=== PATIENT | male | born 1950 | race Caucasian/White ===

== ENCOUNTER → 2024-06-26 05:00 | Outpatient (REF) | payer MEDICARE, SELFPAY ==
[2024-06-26 08:24] LABS: Mean Corp Hgb Conc 32.4 g/dL (32-36); Mean Corpuscular Hgb 32.9 pg (27.0-32.0); Mean Corpuscular Volume 101.4 fL (80-94); Mean Platelet Vol. 10.1 fl (6.2-12.0); Platelet Count 282 K/mm3 (150-450); RBC Distribution Width CV 12.1 % (11.6-14.6); RBC Distribution Width SD 45.2 fl (35.1-43.9); Red Blood Count 3.65 M/mm3 (4.6-6.2); White Blood Count 5.8 K/mm3 (4.4-11.0)
[2024-06-26 09:14] LABS: AST(SGOT) 19 U/L (15-37); Alanine Aminotransfer ALT/SGPT 22 U/L (16-61); Alkaline Phosphatase 168 U/L (45-117); Anion Gap 4 (5-15); BUN 14 mg/dL (7-18); BUN/Creat Ratio 13.7 RATIO (10-20); Calcium,Total 8.8 mg/dL (8.5-10.1); Chloride 112 mmol/L (98-107); Cholesterol 145 mg/dL (200); Creatinine, Serum 1.02 mg/dL (0.70-1.30); EST Glomerular Filtration Rate 76 mL/min (>60); Est Glom Filt Rate - Afr Amer 92 mL/min (>60); Globulin 3.1 g/dL (2.2-4.2); Glucose 93 mg/dL (74-106); High Density Lipoprotein 44 mg/dL; Protein, Total 6.1 g/dL (6.4-8.2); Sodium Level 143 mmol/L (136-145); Thyroid Stim Hormone (TSH) 2.49 uIU/mL (0.358-3.74); Triglycerides 159 mg/dL; Very Low Density Lipoprotein 32 mg/dL (5-40)
[2024-06-26 09:43] LABS: Hemoglobin A1c 4.8 % (3.8-5.6)
== END ==
LOC: OLS.ACW100 05:00
PROVIDERS: Visit Provider Family Medicine
DX: E55.9 Vitamin D deficiency, unspecified (principal); Z79.899 Other long term (current) drug therapy
CPT/HCPCS: 36415; 80053; 80061; 83036; 84443; 85027

== ENCOUNTER → 2024-06-29 | Outpatient (REF) | payer MEDICAID, SELFPAY ==
[2024-06-29 08:43] LABS: Vitamin D,25 Hydroxy 60.6 ng/mL
== END | disposition home or self-care (01) ==
LOC: OLS.ACW400 05:00
PROVIDERS: Visit Provider Family Medicine
DX: E55.9 Vitamin D deficiency, unspecified (principal)
CPT/HCPCS: 36415; 82306

== ENCOUNTER → 2024-08-18 | Outpatient (REF) | payer MEDICARE, SELFPAY ==
[2024-08-18 09:37] LABS: Hematocrit 38.4 % (40-54); Hemoglobin 12.8 g/dL (13.0-16.5); Mean Corp Hgb Conc 33.3 g/dL (32-36); Mean Corpuscular Hgb 32.7 pg (27.0-32.0); Mean Corpuscular Volume 98.2 fL (80-94); Mean Platelet Vol. 9.9 fl (6.2-12.0); Platelet Count 240 K/mm3 (150-450); RBC Distribution Width CV 11.7 % (11.6-14.6); RBC Distribution Width SD 42.4 fl (35.1-43.9); Red Blood Count 3.91 M/mm3 (4.6-6.2); White Blood Count 4.9 K/mm3 (4.4-11.0)
[2024-08-18 10:46] LABS: AST(SGOT) 11 U/L (15-37); Alanine Aminotransfer ALT/SGPT 14 U/L (16-61); Albumin, Serum 3.3 g/dL (3.2-5.0); Alkaline Phosphatase 115 U/L (45-117); Anion Gap 6 (5-15); BUN 19 mg/dL (7-18); BUN/Creat Ratio 18.1 RATIO (10-20); Bilirubin, Direct 0.14 mg/dL (0.00-0.30); Calcium,Total 9.7 mg/dL (8.5-10.1); Chloride 110 mmol/L (98-107); Cholesterol 125 mg/dL (200); Creatinine, Serum 1.05 mg/dL (0.70-1.30); EST Glomerular Filtration Rate 73 mL/min (>60); Est Glom Filt Rate - Afr Amer 89 mL/min (>60); Glucose 85 mg/dL (74-106); High Density Lipoprotein 49 mg/dL; Potassium 3.7 mmol/L (3.5-5.1); Protein, Total 6.3 g/dL (6.4-8.2); Sodium Level 141 mmol/L (136-145); Triglycerides 99 mg/dL; Very Low Density Lipoprotein 20 mg/dL (5-40)
== END ==
LOC: OLS.ACW400 05:00
PROVIDERS: Visit Provider Family Medicine
DX: I63.311 Cerebral infarction due to thrombosis of right middle cerebral artery (principal); I69.354 Hemiplegia and hemiparesis following cerebral infarction affecting left non-dominant side; I69.392 Facial weakness following cerebral infarction; Z79.899 Other long term (current) drug therapy
CPT/HCPCS: 36415; 80048; 80061; 80076; 85027

== ENCOUNTER → 2024-09-15 | Outpatient (REF) | payer MEDICARE, SELFPAY ==
[2024-09-15 08:45] LABS: Valproic Acid (Depakene) Level 16 ug/mL (50-100)
== END ==
LOC: OLS.ACW400 05:00
PROVIDERS: Visit Provider Family Medicine
DX: F03.94 Unspecified dementia, unspecified severity, with anxiety (principal); I69.311 Memory deficit following cerebral infarction; I69.354 Hemiplegia and hemiparesis following cerebral infarction affecting left non-dominant side; I69.392 Facial weakness following cerebral infarction
CPT/HCPCS: 36415; 80164

== ENCOUNTER → 2025-01-15 | Outpatient (REF) | payer MEDICARE, SELFPAY ==
[2025-01-15 08:19] LABS: Hematocrit 43.3 % (40-54); Hemoglobin 14.2 g/dL (13.0-16.5); Mean Corp Hgb Conc 32.8 g/dL (32-36); Mean Corpuscular Hgb 31.3 pg (27.0-32.0); Mean Corpuscular Volume 95.4 fL (80-94); Mean Platelet Vol. 10.2 fl (6.2-12.0); Platelet Count 179 K/mm3 (150-450); RBC Distribution Width CV 12.5 % (11.6-14.6); RBC Distribution Width SD 43.7 fl (35.1-43.9); Red Blood Count 4.54 M/mm3 (4.6-6.2); White Blood Count 7.9 K/mm3 (4.4-11.0)
[2025-01-15 08:41] LABS: AST(SGOT) 529 U/L (<=37); Alanine Aminotransfer ALT/SGPT 627 U/L (<=46); Albumin, Serum 3.8 g/dL (3.4-4.8); Alkaline Phosphatase 196 U/L (40-129); Anion Gap 12 (5-15); BUN 17 mg/dL (4-19); BUN/Creat Ratio 17.5 RATIO (10-20); Bilirubin, Direct 1.13 mg/dL (0.00-0.30); Calcium 9.3 mg/dL (7.6-11.0); Carbon Dioxide 22.5 mmol/L (22.0-29.0); Chloride 99 mmol/L (96-108); Cholesterol 168 mg/dL (<=200); Creatinine, Serum 0.98 mg/dL (0.70-1.20); EST Glomerular Filtration Rate 81 (>60); Globulin 3.1 g/dL (2.2-4.2); Glucose 89 mg/dL (70-99); High Density Lipoprotein 65 mg/dL; Low Density Lipoprotein Calc. 83 mg/dL; Potassium 4.6 mmol/L (3.3-5.1); Protein, Total 6.8 g/dL (5.9-8.4); Sodium Level 133 mmol/L (133-145); Total Bilirubin 2.05 mg/dL (0.00-1.30); Triglycerides 101 mg/dL; Very Low Density Lipoprotein 20 mg/dL (5-40); cholesterol:hdl ratio screen 2.59
== END ==
LOC: OLS.ACW400 05:00
PROVIDERS: Visit Provider Family Medicine
DX: I63.311 Cerebral infarction due to thrombosis of right middle cerebral artery (principal); N18.31 Chronic kidney disease, stage 3a; I25.10 Atherosclerotic heart disease of native coronary artery without angina pectoris; E78.5 Hyperlipidemia, unspecified
CPT/HCPCS: 36415; 80048; 80061; 80076; 85027

== ENCOUNTER → 2025-01-20 | Outpatient (REF) | payer MEDICARE, SELFPAY ==
[2025-01-20 10:45] LABS: Valproic Acid (Depakene) Level 29 ug/mL (50-100)
== END ==
LOC: OLS.ACW400 05:00
PROVIDERS: Visit Provider Family Medicine
DX: I63.311 Cerebral infarction due to thrombosis of right middle cerebral artery (principal); I69.392 Facial weakness following cerebral infarction; I69.354 Hemiplegia and hemiparesis following cerebral infarction affecting left non-dominant side
CPT/HCPCS: 36415; 80164

== ENCOUNTER → 2025-01-25 | Outpatient (REF) | payer MEDICARE, SELFPAY ==
[2025-01-25 09:03] LABS: AST(SGOT) 23 U/L (<=37); Alanine Aminotransfer ALT/SGPT 34 U/L (<=46); Albumin, Serum 3.6 g/dL (3.4-4.8); Alkaline Phosphatase 137 U/L (40-129); Bilirubin, Direct 0.11 mg/dL (0.00-0.30); Protein, Total 6.6 g/dL (5.9-8.4); Total Bilirubin 0.21 mg/dL (0.00-1.30)
== END ==
LOC: OLS.ACW400 05:00
PROVIDERS: Visit Provider Family Medicine
DX: I63.311 Cerebral infarction due to thrombosis of right middle cerebral artery (principal); I69.354 Hemiplegia and hemiparesis following cerebral infarction affecting left non-dominant side; I69.392 Facial weakness following cerebral infarction
CPT/HCPCS: 36415; 80076

== ENCOUNTER → 2025-03-15 | Outpatient (REF) | payer MEDICARE, SELFPAY ==
[2025-03-15 10:54] LABS: AST(SGOT) 24 U/L (<=37); Alanine Aminotransfer ALT/SGPT 14 U/L (<=46); Albumin, Serum 3.9 g/dL (3.4-4.8); Alkaline Phosphatase 84 U/L (40-129); Bilirubin, Direct 0.08 mg/dL (0.00-0.30); Globulin 2.9 g/dL (2.2-4.2); Protein, Total 6.8 g/dL (5.9-8.4); Total Bilirubin 0.33 mg/dL (0.00-1.30)
== END ==
LOC: OLS.ACW400 05:00
PROVIDERS: Visit Provider Family Medicine
DX: E78.5 Hyperlipidemia, unspecified (principal); I63.311 Cerebral infarction due to thrombosis of right middle cerebral artery; I69.354 Hemiplegia and hemiparesis following cerebral infarction affecting left non-dominant side; I69.392 Facial weakness following cerebral infarction
CPT/HCPCS: 36415; 80076

== ENCOUNTER → 2025-03-23 | Outpatient (REF) | payer MEDICARE, SELFPAY ==
[2025-03-24 09:16] LABS: Color, Urine Yellow (Yellow); Glucose, Dipstick Normal (Normal); Ketone-Dipstick Negative (Negative); Leukocyte Esterase-Dipstick Negative /ul (Negative); Nitrite-Dipstick Negative (Negative); Occult Blood-Urine Negative /ul (Negative); Protein-Dipstick 15 mg/dl (Negative); Specific Gravity, Urine 1.015 (1.002-1.030); Urine Bilirubin Dipstick Negative (Negative); Urine Clarity Clear (Clear); Urine Urobilinogen Normal (Normal); Urine pH 6.5 (5.0 - 8.0)
== END ==
LOC: OLS.ACW400 19:00
PROVIDERS: Visit Provider Family Medicine
DX: I63.311 Cerebral infarction due to thrombosis of right middle cerebral artery (principal); I69.354 Hemiplegia and hemiparesis following cerebral infarction affecting left non-dominant side; I69.392 Facial weakness following cerebral infarction; R39.9 Unspecified symptoms and signs involving the genitourinary system
CPT/HCPCS: 81002

== ENCOUNTER → 2025-04-14 05:00 | Outpatient (REF) | payer MEDICARE, SELFPAY ==
[2025-04-14 10:33] LABS: AST(SGOT) 26 U/L (<=37); Alanine Aminotransfer ALT/SGPT 22 U/L (<=46); Albumin, Serum 3.5 g/dL (3.4-4.8); Alkaline Phosphatase 70 U/L (40-129); Protein, Total 6.5 g/dL (5.9-8.4); Total Bilirubin 0.54 mg/dL (0.00-1.30)
== END ==
LOC: OLS.ACW400 05:00
PROVIDERS: Visit Provider Family Medicine
DX: I63.311 Cerebral infarction due to thrombosis of right middle cerebral artery (principal); I69.354 Hemiplegia and hemiparesis following cerebral infarction affecting left non-dominant side
CPT/HCPCS: 36415; 80076

== ENCOUNTER → 2025-04-19 05:00 | Outpatient (REF) | payer MEDICARE, SELFPAY ==
[2025-04-19 08:53] LABS: Valproic Acid (Depakene) Level 42 ug/mL (50-100)
[2025-04-19 10:02] LABS: AST(SGOT) 16 U/L (<=37); Alanine Aminotransfer ALT/SGPT 16 U/L (<=46); Albumin, Serum 4.2 g/dL (3.4-4.8); Alkaline Phosphatase 78 U/L (40-129); Bilirubin, Direct 0.09 mg/dL (0.00-0.30); Globulin 2.4 g/dL (2.2-4.2); Protein, Total 6.6 g/dL (5.9-8.4); Total Bilirubin 0.26 mg/dL (0.00-1.30)
== END ==
LOC: OLS.ACW400 05:00
PROVIDERS: Visit Provider Family Medicine
DX: I63.311 Cerebral infarction due to thrombosis of right middle cerebral artery (principal); F03.94 Unspecified dementia, unspecified severity, with anxiety
CPT/HCPCS: 36415; 80076; 80164

== ENCOUNTER → 2025-06-21 05:00 | Outpatient (REF) | payer MEDICARE, SELFPAY ==
--- OUTSIDE RECORDS SUMMARY | 2025-06-21 04:31 | XMS RPT_ITS | CCD ---
Author Organization [facility] Care Team Providers Care Spin Tank Tender Name Role Phone Frederic Velasquez Primary Care Provider [phone] Alem Hopkins Attending Unavailable Ron, Edward Referring Unavailable Ron, Edward Primary Care Unavailable Ron, Edward Referring Unavailable PravinDaisy gore Attending Unavailable Ron, Edward Primary Care Unavailable Daisy Costello Attending Unavailable Ron, Edward Referring Unavailable Ron, Edward Primary Care Unavailable Ron, Edward Referring Unavailable Alem Hopkins Attending Unavailable Ron, Edward Primary Care Unavailable Alem Hopkins Attending Unavailable Ron, Edward Referring Unavailable Ron, Edward Primary Care Unavailable Alem Hopkins Attending Unavailable Ron, Edward Referring Unavailable Ron, Edward Primary Care Unavailable Ron, Edward Referring Unavailable Daisy Costello Attending Unavailable Ron, Edward Primary Care Unavailable Ron, Edward Referring Unavailable Kathrin Koroma Attending Unavailable Ron, Edward Primary Care Unavailable Hector Dale Attending Unavailable Ron, Edward Primary Care Unavailable Ron, Edward Referring Unavailable Giovanni Reyes Attending Unavailable Ron, Edward Referring Unavailable Ron, Edward Primary Care Unavailable Giovanni Reyes Attending Unavailable Ron, Edward Referring Unavailable Ron, Edward Primary Care Unavailable Ron, Edward Referring Unavailable PROVIDER, UNKNOWN Attending Unavailable Ron, Edward Primary Care Unavailable Ron, Edward Referring Unavailable Daisy Stinson Attending Unavailable Ron, Edward Primary Care Unavailable Ron, Edward Referring Unavailable Ron, Edward Primary Care Unavailable Og Tobar Attending Unavailable Shane Justice PA-C Primary Care Provider Giorgio Fernandez DO Primary Care Provider Shane Justice PA-C Primary Care Provider Giorgio Fernandez DO Primary Care Provider Fernandez DO, Giorgio Villa Unavailable Frederic Velasquez Primary Care Provider Frederic Velasquez Primary Care Provider CARYL HUFFMAN~[phone], CARYL JASSO Attending Unavailable ALEA ESPOSITO~[phone], ALEA whitman Unavailable AA UNKNOWN PCP, UNKNOWN Primary Care Unavaila ble Fernandez DO, Giorgio Villa Primary Care Provider Fernandez, Giorgio Primary Care Provider Unavailable Primary Care Provider Unavailabl e Fernandez DO, Giorgio Villa Primary Care Provider RAMIREZ CANTOR Attending Unavailable CARLOS VAUGHN Admitting Unavailable Fernandez , Giorgio Villa Unavailable [phone] Rosamaria PATEL, Anita De Anda Unavailable UnavailSELENA Garcia Attending Unavailable SELENA HAZEL Admitting Unavailable PRIYANKA TAI Consulting Unavailable [facility] Primary Care Unavaila RADHA Green Attending Unavailable Anita Barrera RN Unavailable UnavailRose Norton MD Primary Care Provider TANYA JUNG Attending UnaROSE Hernandes Primary Care Unavailable ROSE CLARK Primary Care Unavailable TWIN WOLFE Attending Unavailable FERNANDEZ, GIORGIO Primary Care Unavailable FREDRICK HOWELL Attending Unavailable RUSS CASTRO Attending Unavailable CHAVA, GIORGIO Primary Care Unavailable TOMI, ALANA Referring Unavailable FERNANDEZ, GIORGIO Primary Care Unavailable TOMI ALANA Referring Unavailable FERNANDEZ, GIORGIO Primary Care Unavailable LAFCRISTIANA PEREZS Referring Unavailable FERNANDEZ, GIORGIO Primary Care Unavailable TOMI ALANA Referring Unavailable FERNANDEZ, GIORGIO Primary Care Unavailable LAFCHRIS URSS Referring Unavailable FERNANDEZ, [facility] Care Unavailable FERNANDEZ, [facility] Care Unavailable TIRSO KRISHNANTIN Attending Unavailable Rose Keith Attending Provider UnavailKATIA Duong Attending Unavailable FERNANDEZ, GIORGIO [facility] Unavaila ble FERNANDEZ, [facility] Care Unavaila ble FERNANDEZ, [facility] Care Unavaila ble FERNANDEZ, [facility] Care Unavaila ble FERNANDEZ, GIORGIO VILLA Attending Unavaila gopi FERNANDEZ, GIORGIO VILLA Referring Unavaila gopi EFRNANDEZ, GIORGIO VILLA Primary Care Unavaila ble Ayse GARSIA, Rose Attending Unavailable Ayse GARSIA, Rose Attending Unavailable Ayse GARSIA, Rose Attending Unavailable Ayse GARSIA, Rose Attending Unavailable Ayse GARSIA, Rose Attending Unavailable Ayse GARSIA, Rose Attending Unavailable Ayse GARSIA, Rose Attending Unavailable Ayse GARSIA, Rose Attending Unavailable Ayse GARSIA, Rose Attending Unavailable Ayse GARSIA, Rose Attending Unavailable Ayse GARSIA, Rose Attending Unavailable Allergies Allergy Classification Reported Allergen(s) Allergy Type Date of Onset Reaction(s) Facility Acetaminophen / oxyCODONE (2 sources) Acetaminophen / oxyCODONE Drug Allergy [address] [facility] (20 sources) Acetaminophen / oxyCODONE; Translations: [OXYCODONE-ACETAMI NOPHEN] Drug Allergy [address] [facility] Medications Current Medications Medication Drug Class(es) Dates Sig (Normalized) Sig (Original) amoxicillin 875 mg / clavulanate 125 mg oral tablet (1 source) Penicillin-class Antibacterial Start: 01-30-2024 End: 02-06-2024 take 1 tablet by mouth every twelve hours amoxicillin-clavul anate potassium (AUGMENTIN) 875-125 mg per tablet Indications: Acute non-recurrent pansinusitis Take 1 tablet by mouth every 12 hours for 7 days. 14 tablet 0 01/30/2024 02/06/2024 Active Comment on above: Take [address] [facility] every 12 hours for 7 days. aspirin 81 mg chewable tablet (20 sources) Platelet Aggregation Inhibitor, Nonsteroidal Anti-inflammatory Drug aspirin 81 MG chewable tablet Chew 81 mg in the morning. Active take 1 tablet by mouth once alyssa y aspirin, enteric coated (ASPIRIN, ENTERIC COATED) 81 mg EC tablet Take 81 mg by mouth once daily. Active Comment on above: Take 81 mg by mouth once daily. carbidopa 25 mg / levodopa 100 mg oral tablet (20 sources) Aromatic Amino Acid Decarboxylation Inhibitor, Aromatic Amino Acid Start: 12-03-2022 End: 04-16-2023 carbidopa-levodopa (Sinemet) 25-100 MG tablet TAKE 1 TABLET BY MOUTH IN THE MORNING, 1 TABLET AT NOON AND 1 TABLET BEFORE BEDTIME 90 tablet 04/16/2023 Active Start: 10-01-2022 End: 08-02-2024 take 1 tablet by mouth three times daily carbidopa-levodopa (SINEMET 25-100) 25-100 mg per tablet take one tablet by mouth three times a day 270 tablet 06/26/2024 Active Start: 10-01-2022 carbidopa-levo dopa (SINEMET 25-100) 25-100 mg per tablet Start: 06-01-2022 carbidopa-levo dopa (SINEMET) 25-100 MG per tablet Take 1 tablet by mouth in the morning and 1 tablet at noon and 1 tablet before bedtime. 90 tablet 2 06/01/2022 Active Comment on above: Take 1 tablet by gregoria th three times daily. cholecalciferol 0.025 mg oral tablet (20 sources) Vitamin D take 1 tablet by mouth in the morning cholecalciferol (Vitamin D-3) 25 MCG (1000 UT) tablet Take 2,000 Units by mouth in the morning. Active End: 04-06-2022 take 1 tablet by mouth once daily cholecalciferol (VITAMIN D3) 50 mcg (2,000 unit) tablet Take 2,000 Units by mouth once daily. 0 Suspended Comment on above: Take 2,000 Units by mouth once daily. clopidogrel 75 mg oral tablet (20 sources) P2Y12 Platelet Inhibitor Start: End: take 1 tablet by mouth in the morning clopidogrel (Plavix) 75 MG tablet Take 75 mg by mouth in the morning. 01/01/2024 Active Clopidogrel Bisu lfate (PLAVIX PO) Take by mouth 0 Active Comment on above: Take 1 tablet by gregoria th once daily. docusate sodium 50 mg / sennosides, care home 8.6 mg oral tablet (20 sources) Start: 05-20-2024 take 1 tablet by mouth in the morning senna-docusate (Malu-Colace) 8.6-50 MG tablet Take 1 tablet by mouth in the morning and 1 tablet in the evening. 05/20/2024 Active Start: 05-20-2024 take 1 tablet by gregoria th twice daily senna-docusate (SENNA-S) 8.6-50 mg per tablet Take 1 tablet by mouth two times a day. 05/20/2024 Active gabapentin 100 mg oral capsule (20 sources) Anti-epileptic Agent Start: 05-20-2024 take 1 capsule by mouth in the morning gabapentin (Neurontin) 100 MG capsule Take 100 mg by mouth in the morning and 100 mg in the evening. 05/20/2024 Active 1 ml heparin sodium, porcine 5000 unt/ml prefilled syringe (15 sources) Unfractionated Heparin, Anti-coagulant heparin 5000 units/mL injection Inject 5,000 Units under the skin in the morning and 5,000 Units at noon and 5,000 Units in the evening. Active heparin sodium,p orcine (HEPARIN, PORCINE,) 5,000 unit/mL (1 mL) crtg 1 mL by INJECTION(UNSPECIFIED PARENTERAL ROUTES) route three times a day. 0 Suspended hydrOXYzine pamoate 25 mg oral capsule (2 sources) Antihistamine take 1 capsule by mouth twice daily hydrOXYzine pamoate (Vistaril) 25 MG capsule Indications: Anxiety Take 25 mg by mouth 2 times daily. Active lidocaine 0.04 mg/mg medicated patch (20 sources) Antiarrhythmic, Amide Local Anesthetic Start: 05-21-20 apply 1 dose transdermal route in the morning Lidocaine 4 % patch Place 1 patch on the skin in the morning. 05/21/2024 Active Start: 04-13-2024 End: 04-23-2024 apply 1 dose transdermal route once daily Lidocaine 4 % patch Place 1 patch on the skin daily for 10 days. 10 patch 0 04/13/2024 04/23/2024 Active loratadine 10 mg oral tablet (20 sources) Start: 06-13-2024 take 1 tablet by mouth once loratadine (CLARITIN) 10 mg tablet Take 1 tablet by mouth every afternoon. 06/13/2024 Active Start: 03-18-2024 take 1 tablet by gregoria th once daily loratadine (CLARITIN) 10 mg tablet Indications: Acute non-recurrent pansinusitis take one tablet by mouth once a day 90 tablet 3 03/18/2024 Suspended Start: 01-30-2024 End: 02-29-2024 take 1 tablet by mouth once daily loratadine (CLARITIN) 10 mg tablet Indications: Acute non-recurrent pansinusitis Take 1 tablet by mouth once daily. 30 tablet 0 01/30/2024 02/29/2024 Active Comment on above: Take 1 tablet by gregoria th once daily. meclizine hydrochloride 25 mg oral tablet (20 sources) Antiemetic Start: 01-21-2024 meclizine (Antivert) 25 MG tablet 25 mg 3 times daily as needed for dizziness. 01/21/2024 Active Start: 01-21-2024 take 1 tablet by gregoria th every six hours as needed for dizziness meclizine (ANTIVERT) 25 mg tab Indications: Vertigo TAKE ONE TABLET BY MOUTH EVERY 6 HOURS NEEDED FOR DIZZINESS 90 tablet 3 01/21/2024 Active Start: 07-08-2023 End: 01-15-2024 take 1 tablet by mouth every six hours as needed for dizziness meclizine (ANTIVERT) 25 mg tab Indications: Vertigo TAKE ONE TABLET BY MOUTH EVERY 6 HOURS NEEDED FOR DIZZINESS 90 tablet 3 01/15/2024 Active Start: 03-13-2023 take 1 tablet by gregoria th every six hours as needed for dizziness meclizine (ANTIVERT) 25 mg tab Indications: Vertigo Take 1 tablet by mouth every 6 hours as needed (for dizziness). 30 tablet 1 03/13/2023 Active Comment on above: Take 1 tablet by gregoria th every 6 hours as needed (for dizziness). TAKE ONE TABLET BY M OUTH EVERY 6 HOURS NEEDED FOR DIZZINESS melatonin 3 mg oral tablet (20 sources) Start: take 1 tablet by mouth once daily as needed melatonin 3 MG tablet Take 3 mg by mouth Nightly as needed. 05/20/2024 Active metoprolol tartrate 25 mg oral tablet (20 sources) beta-Adrenergic Juni Start: 4 take 1 tablet by mouth twice daily metoprolol tartrate, short acting, (LOPRESSOR) 25 mg tablet Indications: Primary hypertension take one-half tablet by mouth twice daily 90 tablet 3 09/14/2024 Active Start: 06-08-2024 End: 09-14-2024 metoprolol tartrate, short a cting, (LOPRESSOR) 25 mg tablet Indications: Primary hypertension 06/08/2024 09/14/2024 Discontinued Start: 03-13-2024 take 0.5 tablet by m outh twice daily metoprolol tartrate, short acting, (LOPRESSOR) 25 mg tablet Take 0.5 tablets by mouth two times a day. 0 03/13/2024 Suspended Start: 03-23-2021 End: 08-08-2023 take 0.5 tablet by mouth twice daily metoprolol tartrate, short acting, (LOPRESSOR) 25 mg tablet Take 0.5 tablets by mouth two times a day. 0 03/13/2024 Suspended Start: 03-23-2021 metoprolol tar trate (LOPRESSOR) 25 MG tablet Take 12.5 mg by mouth 2 times daily 0 03/23/2021 Active take 1 tablet by gregoria th once daily metoprolol succinate XL (Toprol-XL) 25 MG 24 hr tablet Take 25 mg by mouth daily. Do not crush or chew. Active Comment on above: Take 0.5 tablets by mouth twice daily. mirtazapine 7.5 mg oral tablet (20 sources) Start: 4 take 1 tablet by mouth once daily at bedtime mirtazapine (Remeron) 7.5 MG tablet Take 7.5 mg by mouth daily at bedtime. 05/15/2024 Active oxyCODONE hydrochloride 5 mg oral tablet (1 source) Opioid Agonist Start: 3 End: 3 take 1 tablet by mouth every eight hours as needed for pain oxyCODONE IR (ROXICODONE) 5 mg immediate release tablet Indications: Carotid stenosis Take 1 tablet by mouth every 8 hours as needed for pain for up to 3 days. 10 tablet 0 01/26/2023 01/29/2023 Active Comment on above: Take 1 tablet by gregoria th every 8 hours as needed for pain for up to 3 days. 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 08/08/2023 Active Comment on above: Take 1 tablet by gregoria th once daily. predniSONE 50 mg oral tablet (15 sources) Start: 04-14-2024 End: 04-18-2024 take 0.5 tablet by mouth once daily predniSONE (Deltasone) 50 MG tablet Take 0.5 tablets (25 mg) by mouth daily for 4 days. First dose provided in ED, start tomorrow 2 tablet 0 04/14/2024 04/18/2024 Active Start: 04-13-2024 End: 04-13-2024 predniSONE (Deltasone) table t 50 mg Start: 04-13-2024 End: 04-14-2024 take 1 tablet by mouth once daily predniSONE (Deltasone) 50 MG tablet Take 1 tablet (50 mg) by mouth daily for 4 days. First dose provided in ED, start tomorrow 4 tablet 0 04/14/2024 04/14/2024 Discontinued Start: 12-26-2022 End: 12-31-2022 take 1 tablet by mouth once daily predniSONE (DELTASONE) 50 mg Indications: Foot pain, left Take 1 tablet by mouth once daily for 5 days. 5 tablet 0 12/26/2022 12/31/2022 Active Comment on above: Take 1 tablet by gregoria th once daily for 5 days. venlafaxine 75 mg oral tablet (20 sources) Serotonin and Norepinephrine Reuptake Inhibitor Start: 09-14-20 take 1 tablet by mouth in the morning, then take 2 tablets by mouth at bedtime venlafaxine (EFFEXOR) 75 mg tablet TAKE 1 TABLET BY MOUTH IN THE MORNING AND 2 TABLETS AT BEDTIME 270 tablet 3 09/14/2024 Active Start: 05-20-2024 venlafaxine (E ffexor) 75 MG tablet Take 262.5 mg by mouth daily. 05/20/2024 Active Start: 05-20-2024 End: 09-14-2024 venlafaxine (Effexor) 75 MG tablet Take 75 mg by mouth in the morning and 75 mg at noon and 75 mg in the evening. 05/20/2024 Active Start: 04-30-2024 take 1 tablet by gregoria th three times daily at mealtime venlafaxine (EFFEXOR) 75 mg tablet 1 tablet by ORAL/FEEDING TUBE route three times a day with meals. 0 04/30/2024 Suspended Start: 10-24-2023 venlafaxine (E FFEXOR) 75 mg tablet Indications: Anxiety with depression , Inattention Take 1 tablet in the morning and 2 tablets at bedtime. 270 tablet 1 10/24/2023 Suspended Start: 07-11-2023 End: 10-24-2023 venlafaxine (EFFEXOR) 75 mg tablet Indications: Anxiety with depression , Inattention Take 1 tablet in the morning and 2 tablets at bedtime. 270 tablet 1 10/24/2023 Active Start: 03-23-2021 End: 10-02-2022 take 1 tablet by mouth three times daily venlafaxine (EFFEXOR) 75 mg tablet Indications: Recurrent major depressive disorder, in full remission (HCC) Take 1 tablet by mouth three times daily. 270 tablet 3 10/02/2022 Suspended End: 10-24-2023 take 1 capsule by mouth once daily venlafaxine ER (EFFEXOR XR) 75 mg 24 hr capsule Take 75 mg by mouth once daily. 0 10/24/2023 Discontinued Comment on above: Take 1 tablet by gregoria three times daily. Take 75 mg by mouth once daily. TAKE ONE TABLET BY [facility] THREE TIMES A DAY Take 1 tablet in the morning and 2 tablets at bedtime. Completed/Discontinued Medications Medication Drug Class(es) Dates Sig (Normalized) Sig (Original) acetaminophen 325 mg oral tablet (20 sources) Start: 10-31-2021 End: 10-31-2021 acetaminophen (TYLENOL) tablet 650 mg Start: 01-31-2018 take 2 tablets by mo [facility] every six hours as needed acetaminophen (TYLENOL) 325 mg tablet Take 2 tablets by mouth every 6 hours as needed. 01/31/2018 Active take 2 tablets by mo ut every four hours as needed for pain acetaminophen (Tylenol) 325 MG tablet Take 650 mg by mouth every 4 hours as needed for mild pain (1-3). Active Comment on above: Take 2 tablets by mo [facility] every 6 hours as needed. acetaminophen 325 mg / butalbital 50 mg / caffeine 40 mg oral tablet (20 sources) Barbiturate, Central Nervous System Stimulant, Methylxanthine Start: 11-22-19 take 1 tablet by mouth once acetaminophen 325 mg-caffeine 40 mg-butalbital 50 mg (FIORICET) per tablet Take 1 tablet by mouth. 0 11/22/2021 Suspended Start: 11-22-2021 End: 04-06-2022 take 1 tablet by mouth every four hours as needed for pain shfeizwnvx-arjyuyzdiwytc-mbzclrxo (LUIS CET, ESGIC) 50-325-40 MG per tablet Take 1 tablet by mouth every 4 hours as needed for Headaches (breakthrough pain) 10 tablet 1 11/22/2021 04/06/2022 Discontinued (ERROR) Comment on above: Take 1 tablet by gregoria th. atorvastatin 80 mg oral tablet (20 sources) HMG-CoA Reductase Inhibitor Start: 4 take 1 tablet by mouth once daily at bedtime atorvastatin (LIPITOR) 80 mg tablet 1 tablet by ORAL/FEEDING TUBE route daily at bedtime. 0 04/30/2024 Suspended Start: 02-24-2023 End: 06-17-2023 take 1 tablet by mouth once daily at bedtime atorvastatin (LIPITOR) 80 mg tablet Indications: Stage 3a chronic kidney disease (HCC) , High cholesterol Take 1 tablet by mouth daily at bedtime. 90 tablet 3 06/17/2023 Active Comment on above: Take 1 tablet by gregoria th daily at bedtime. TAKE ONE TABLET BY M OUT EVERY DAY AT BEDTIME 24 hr buPROPion hydrochloride 300 mg extended release oral tablet (20 sources) Aminoketone Start: 3 End: 4 take 1 tablet by mouth once daily in the morning buPROPion XL (WELLBUTRIN XL) 300 mg 24 hr tablet Indications: Anxiety with depression Take 1 tablet by mouth once daily at 6 am. 90 tablet 3 06/17/2023 06/11/2024 Suspended Start: 03-23-2021 End: 11-28-2022 take 1 tablet by mouth twice daily buPROPion (WELLBUTRIN) 100 mg tablet Indications: Recurrent major depressive disorder, in full remission (HCC) Take 1 tablet by mouth twice daily. 180 tablet 3 10/02/2022 11/28/2022 Discontinued Comment on above: Take 1 tablet by gregoria th twice daily. Take 1 tablet by gregoria th once daily at 6 am. ezetimibe 10 mg oral tablet (20 sources) Dietary Cholesterol Absorption Inhibitor Start: 12-23-2023 take 1 tablet by mouth once daily at bedtime ezetimibe (ZETIA) 10 mg tablet Take 10 mg by mouth daily at bedtime. 0 12/23/2023 Suspended Start: 03-23-2021 End: 08-08-2023 take 1 tablet by mouth once daily at bedtime ezetimibe (ZETIA) 10 mg tablet Take 10 mg by mouth daily at bedtime. 0 12/23/2023 Suspended Comment on above: Take 1 tablet by gregoria th once daily. Take 1 tablet by gregoira th daily at bedtime. fluticasone propionate 0.05 mg/actuat metered dose nasal spray (11 sources) Corticosteroid Start: take 1 spray(s) nasal route once daily fluticasone (FLONASE ALLERGY RELIEF) 50 mcg/actuation nasal spray Indications: Acute non-recurrent pansinusitis Use 1 Valentines in each nostril once daily. 1 Each 0 01/30/2024 Suspended Comment on above: Use 1 Valentines in each nostril once daily. ibuprofen 600 mg oral tablet (20 sources) Nonsteroidal Anti-inflammatory Drug Start: End: take 1 tablet by mouth every six hours as needed for pain ibuprofen (MOTRIN) 600 mg tablet Indications: Lumbar radiculopathy , Sciatica associated with disorder of lumbar spine Take 1 tablet by mouth every 6 hours as needed for pain. 120 tablet 2 10/02/2022 Suspended Comment on above: Take 1 tablet by gregoria th every 6 hours as needed for Pain. iopamidol (Isovue-370) 76 % injection 75 mL (2 sources) Start: End: take 75 mL intravenously once as needed 75 mL, IntraVENous, IMG once PRN, contrast, Starting on Criselda 05/28/24 at 1625, For 1 dose 1 ml ketorolac tromethamine 30 mg/ml cartridge (2 sources) Nonsteroidal Anti-inflammatory Drug, Cyclooxygenase Inhibitor Start: End: ketorolac (Toradol) injection 15 mg lisinopril 10 mg oral tablet (20 sources) Angiotensin Converting Enzyme Inhibitor Start: take 1 tablet by mouth once daily lisinopril (ZESTRIL) 10 mg tablet Take 1 tablet by mouth once daily. 0 01/01/2024 Suspended Start: 03-23-2021 End: 08-08-2023 take 1 tablet by mouth once daily lisinopril (ZESTRIL) 10 mg tablet Take 1 tablet by mouth once daily. 0 01/01/2024 Suspended Comment on above: Take [address] [facility] once daily. methylphenidate hydrochloride 5 mg oral tablet (10 sources) Central Nervous System Stimulant Start: 10-04-20 End: 01-17-20 23 methylphenidate (RITALIN) 5 mg tablet [place]-3 Fatty Acids-Vitamin E (FISH OIL) 1,000 mg cap (2 sources) take 1 capsule by mouth twice daily [place]-3 Fatty Acids-Vitamin E (FISH OIL) 1,000 mg cap Take 1 capsule by mouth twice daily. 0 Active Comment on above: Take 1 capsule by [facility] twice daily. [place]-3 Fatty Acids-Vitamin E 1,000 mg cap (19 sources) take 1 capsule by mouth twice daily [place]-3 Fatty Acids-Vitamin E 1,000 mg cap Take 1 capsule by mouth twice daily. 0 Suspended take 1 capsule by mouth twice [place]-3 Fatty Acids-Vitamin E 1,000 mg cap Take 1 capsule by mouth twice daily. 0 Active Comment on above: Take 1 capsule by [facility] twice daily. ondansetron 4 mg oral tablet (20 sources) Serotonin-3 Receptor Antagonist Start: 3 End: 3 take 1-2 tablets by mouth every eight hours for nausea ondansetron (ZOFRAN) 4 mg tablet Indications: Nausea TAKE 1 TO 2 TABLET BY MOUTH EVERY 8 HOURS IF NEEDED FOR NAUSEA 30 tablet 0 04/16/2023 Suspended Start: 11-08-2021 End: 04-06-2022 take 1 tablet by mouth three times daily as needed for nausea ondansetron (ZOFRAN-ODT) 4 MG disintegrating tablet Take 1 tablet by mouth 3 times daily as needed for Nausea or Vomiting 21 tablet 0 11/08/2021 04/06/2022 Discontinued (ERROR) ONDANSETRON HCL (ZOFRAN ORAL) Take by mouth. 0 Suspended ONDANSETRON HCL (ZOFRAN ORAL) Take by mouth. 0 Active Comment on above: Take by mouth. 1 to 2 tablets PO ev edith 8 hours prn nausea TAKE 1 TO 2 TABLET B Y MOUTH EVERY 8 HOURS IF NEEDED FOR NAUSEA pravastatin sodium 40 mg oral tablet (20 sources) HMG-CoA Reductase Inhibitor Start: 1 End: 2 take 1 tablet by mouth once daily at bedtime pravastatin (PRAVACHOL) 40 mg tablet Take 1 tablet by mouth daily at bedtime. 30 tablet 11 10/02/2022 Suspended Comment on above: Take [address] [facility] daily at bedtime. 50 ml sodium chloride 9 mg/ml injection (2 sources) Start: 5 End: 5 1,000 mL, IntraVENous, at 1,000 mL/hr, Administer over 1 Hours, Once, On Criselda 12/31/24 at 0845, For 1 dose traZODone hydrochloride 50 mg oral tablet (20 sources) Serotonin Reuptake Inhibitor Start: 1 take 1 tablet by mouth once daily at bedtime traZODone (DESYREL) 50 mg tablet Take 1 tablet by mouth daily at bedtime. 30 tablet 1 10/30/2021 Suspended traZODone (Desyr el) 50 MG tablet Take 25 mg by mouth 2 times daily. Active Comment on above: Take [address] [facility] daily at bedtime. triamcinolone acetonide 1 mg/ml topical cream (13 sources) Corticosteroid Start: 06-16-2021 End: 12-26-2022 triamcinolone acetonide (KENALOG) 0.1 % cream Apply 1 application to affected area twice daily. 45 g 0 06/16/2021 12/26/2022 Discontinued Comment on above: Apply 1 application to affected area twice daily. divalproex sodium 250 mg delayed release oral tablet (20 sources) Mood Stabilizer, Anti-epileptic Agent Start: 02-20-2022 End: 06-01-[address] (DEPAKOTE) 250 mg EC tablet Take 250 mg by mouth. 0 02/20/2022 Suspended Start: 11-22-2021 take 2 tablets by mo [facility] once daily divalproex (DEPAKOTE) [address] tablet Take 2 tablets by mouth nightly 60 tablet 2 11/22/2021 Active take [address] [facility] twice daily divalproex (Depakote ER) 250 MG 24 hr tablet Take 250 mg by mouth 2 times daily. Do not crush, chew, or split. Active Comment on above: Take 250 mg by mouth . vitamin b12 2 mg extended release oral tablet (20 sources) Vitamin B12 End: 04-06-2022 Cyanocobalamin 2,000 mcg TbER Take by mouth once daily. 0 Suspended take 1 tablet by mouth once alyssa y cyanocobalamin (VITAMIN B-12) 1,000 mcg tab Take 1,000 mcg by mouth once daily. 0 Suspended Comment on above: Take by mouth once d aily. Problems Active Problems Problem Classification Problem Date Documented Date Episodic/Chronic Acute cerebrovascular disease (20 sources) Cerebrovascular accident; Translations: [Cerebral infarction, unspecified] Onset: 04-17-2017 04-17-2017 Chronic Adjustment disorders (1 source) Adjustment disorder with mixed anxiety and depressed mood; Translations: [Adjustment disorder with mixed anxiety and depressed mood] Chronic Administrative/social admission (4 sources) Dependent relative needing care at home; Translations: [Patient encounter status] Onset: 05-29-2022 Episodic Anxiety disorders (20 sources) Mixed anxiety and depressive disorder; Translations: [Other specified anxiety disorders] Onset: 09-14-2022 Chronic Aortic; peripheral; and visceral artery aneurysms (1 source) Dilatation of aorta; Translations: [Aortic ectasia, unspecified site] 10-24-2023 Chronic Cataract (20 sources) Cataract; Translations: [Unspecified cataract] 04-17-2017 Chronic Chronic kidney disease (20 sources) Chronic kidney disease stage 2; Translations: [Chronic kidney disease, stage 2 (mild)] Onset: 09-25-2019 07-26-2020 Chronic Chronic kidney disease (1 source) Chronic kidney disease; Translations: [Chronic kidney disease, stage 3a] Onset: 02-19-2025 Conditions associated with dizziness or vertigo (4 sources) Dizziness; Translations: [Dizziness and giddiness] Episodic Coronary atherosclerosis and other heart disease (20 sources) Coronary atherosclerosis; Translations: [Atherosclerotic heart disease of [place] coronary artery without angina pectoris] Onset: 12-18-2016 07-26-2020 Chronic Delirium, dementia, and amnestic and other cognitive disorders (20 sources) Postconcussion syndrome; Translations: [Postconcussional syndrome] Onset: 04-06-2022 Chronic Disorders of lipid metabolism (20 sources) Hypercholesterolemia; Translations: [Pure hypercholesterolemia, unspecified] Onset: 01-11-2017 07-26-2020 Chronic Esophageal disorders (20 sources) Moses's esophagus; Translations: [Moses's esophagus without dysplasia] Onset: 08-11-2018 08-11-2018 Chronic Essential hypertension (20 sources) Hypertensive disorder; Translations: [Essential (primary) hypertension] Onset: 01-11-2017 Resolved: 02-12-2018 07-26-2020 Chronic Gastroduodenal ulcer (except hemorrhage) (1 source) Peptic ulcer; Translations: [Peptic ulcer, site unspecified, unspecified as acute or chronic, without hemorrhage or perforation] Chronic Headache; including migraine (2 sources) Headache; including migraine; Translations: [Headache, unspecified] Onset: 02-25-2022 Heart valve disorders (20 sources) History of aortic valve replacement; Translations: [Presence of prosthetic heart valve] Onset: 12-18-2016 07-26-2020 Chronic Immunizations and screening for infectious disease (2 sources) Vaccination needed; Translations: [Encounter for immunization] Onset: 10-18-2023 Episodic Intestinal infection (1 source) Viral gastroenteritis; Translations: [Viral intestinal infection, unspecified] Episodic Late effects of cerebrovascular disease (20 sources) Sequela of cardioembolic stroke; Translations: [Unspecified sequelae of cerebral infarction] Onset: 06-02-2024 06-02-2024 Chronic Mood disorders (20 sources) Depressive disorder; Translations: [Depression] Onset: 09-19-2023 07-26-2020 Chronic Noninfectious gastroenteritis (1 source) Gastroenteritis; Translations: [Noninfective gastroenteritis and colitis, unspecified] Episodic Nutritional deficiencies (20 sources) Vitamin D deficiency; Translations: [Vitamin D deficiency, unspecified] 04-17-2017 Chronic Nutritional deficiencies (20 sources) Cobalamin deficiency; Translations: [Deficiency of other specified B group vitamins] 04-17-2017 Episodic Occlusion or stenosis of precerebral arteries (20 sources) Vascular calcification; Translations: [Occlusion and stenosis of unspecified carotid artery] Onset: 02-25-2022 Chronic Other aftercare (3 sources) long-term (current) use of antithrombotics/antip latelets; Translations: [terminal carman (current) use of antithrombotics/antip latelets] Onset: 02-25-2022 Episodic Other aftercare (3 sources) Patient encounter status; Translations: [Other fpc (current) drug therapy] Episodic Other and ill-defined heart disease (20 sources) Left ventricular hypertrophy; Translations: [Cardiomegaly] 04-17-2017 Chronic Other circulatory disease (1 source) History of cerebrovascular accident; Translations: [Personal history of transient ischemic attack (TIA), and cerebral infarction without residual deficits] 04-25-2023 Episodic Other connective tissue disease (2 sources) Pain in left foot; Translations: [Pain in left foot] Episodic Other connective tissue disease (1 source) Lateral epicondylitis of right humerus; Translations: [Lateral epicondylitis, right elbow] 06-17-2023 Episodic Other connective tissue disease (1 source) Neurological symptom; Translations: [Unspecified symptoms and signs involving the nervous system] 05-18-2024 Episodic Other hereditary and degenerative nervous system conditions (2 sources) Other specified forms of tremor; Translations: [Other specified forms of tremor] Onset: 04-06-2022 Chronic Other injuries and conditions due to external causes (2 sources) Injury of head; Translations: [Unspecified injury of head, initial encounter] Episodic Other injuries and conditions due to external causes (4 sources) Unspecified injury of head, initial encounter; Translations: [Unspecified injury of head, initial encounter] Onset: 02-25-2022 Episodic Other injuries and conditions due to external causes (4 sources) Closed injury of head; Translations: [Unspecified injury of head, initial encounter] 09-24-2024 Episodic Other male genital disorders (20 sources) Male erectile dysfunction, unspecified; Translations: [Impotence of organic origin] 04-17-2017 Chronic Other nervous system disorders (20 sources) Calvin's syndrome pupil; 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] 04-17-2017 Chronic Other nervous system disorders (20 sources) Calvin's syndrome; 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] 04-17-2017 Chronic Other nervous system disorders (1 source) Inattention; Translations: [Attention and concentration deficit] 10-24-2023 Chronic Other nervous system disorders (20 sources) Aphasia; Translations: [Aphasia] Onset: 04-16-2024 04-16-2024 Chronic Other nervous system disorders (1 source) Abnormal gait; Translations: [Unspecified abnormalities of gait and mobility] Episodic Other nervous system disorders (1 source) Dysarthria; Translations: [Dysarthria and anarthria] 06-15-2024 Episodic Other nutritional; endocrine; and metabolic disorders (1 source) Hypocalcemia; Translations: [Hypocalcemia] Chronic Other nutritional; endocrine; and metabolic disorders (1 source) Weight loss; Translations: [Abnormal weight loss] 08-08-2023 Episodic Other upper respiratory disease (20 sources) Seasonal allergic rhinitis; Translations: [Other seasonal allergic rhinitis] 04-17-2017 Chronic Other upper respiratory infections (2 sources) Acute pansinusitis; Translations: [Acute pansinusitis, unspecified] 01-30-2024 Episodic Paralysis (20 sources) Left hemiplegia; Translations: [Hemiplegia, unspecified affecting left nondominant side] Onset: 04-16-2024 04-16-2024 Chronic Peripheral and visceral atherosclerosis (20 sources) Peripheral vascular disease, unspecified; Translations: [Peripheral vascular disease, unspecified] Onset: 03-23-2021 03-23-2021 Chronic Residual codes; unclassified (20 sources) Obstructive sleep apnea syndrome; Translations: [Obstructive sleep apnea (adult) (pediatric)] Onset: 04-16-2024 01-31-2018 Chronic Residual codes; unclassified (2 sources) Other specified personal risk factors, not elsewhere classified; Translations: [Oth personal risk factors, not elsewhere classified] Onset: 05-29-2022 Episodic Residual codes; unclassified (2 sources) Active advance directive; Translations: [Other specified health status] Episodic Respiratory failure; insufficiency; arrest (adult) (20 sources) Ventilator finding; Translations: [Dependence on respirator [ventilator] status] Onset: 04-16-2024 04-16-2024 Chronic Skull and face fractures (1 source) Fracture of nasal bones, initial encounter for closed fracture; Translations: [FX NASAL BONES INITIAL ENC CLOS FX] Onset: 10-18-2023 Episodic Spondylosis; intervertebral disc disorders; other back problems (2 sources) Spondylosis without myelopathy or radiculopathy, cervical region; Translations: [Spondylosis w/o myelopathy or radiculopathy, cervical region] Onset: 05-15-2022 Chronic Substance-related disorders (20 sources) Nicotine dependence; Translations: [Nicotine dependence, unspecified, uncomplicated] Onset: 01-20-2023 01-20-2023 Chronic Transient cerebral ischemia (2 sources) Transient cerebral ischemia; Translations: [Transient cerebral ischemic attack, unspecified] Chronic Unclassified (1 source) Unspecified dementia, unspecified severity, with agitation (HCC); Translations: [Unspecified dementia, unspecified severity, with agitation (HCC)] Onset: 12-31-2024 Unclassified (2 sources) Unspecified dementia, unspecified severity, with anxiety; Translations: [Unspecified dementia, unspecified severity, with anxiety] Onset: 02-09-2025 Unclassified (1 source) Unspecified dementia, unspecified severity, with other behavioral disturbance; Translations: [Unspecified dementia, unspecified severity, with other behavioral disturbance] Onset: 02-19-2025 Unclassified (1 source) Unspecified dementia, unspecified severity, with agitation; Translations: [Unspecified dementia, unspecified severity, with agitation] Onset: 02-19-2025 Past or Other Problems Problem Classification Problem Date Documented Date Episodic/Chronic Abdominal pain (20 sources) Chronic abdominal pain; Translations: [Unspecified abdominal pain] Onset: 07-26-2020 07-26-2020 Episodic Calculus of urinary tract (20 sources) Kidney stone; Translations: [Calculus of kidney] Onset: 01-11-2017 01-11-2017 Episodic Diseases of white blood cells (20 sources) Leukocytosis; Translations: [Elevated white blood cell count, unspecified] Onset: 04-16-2024 Resolved: 04-17-2024 04-17-2024 Chronic E Codes: Fall (20 sources) Fall; Translations: [Unspecified fall, initial encounter] Onset: 10-31-2021 Episodic E Codes: Unspecified (2 sources) Civilian activity done for income or pay; Translations: [Civilian activity done for income or pay] Onset: 11-08-2021 Episodic Fracture of upper limb (20 sources) Open fracture thumb distal phalanx; Translations: [Nondisplaced fracture of distal phalanx of left thumb, initial encounter for open fracture] Onset: 05-03-2021 05-03-2021 Episodic Genitourinary symptoms and ill-defined conditions (20 sources) Blood in urine; Translations: [Hematuria, unspecified] Onset: 01-11-2017 01-11-2017 Episodic Intracranial injury (3 sources) Concussion with loss of consciousness; Translations: [Concussion with loss of consciousness of unspecified duration, subsequent encounter] Onset: 11-08-2021 Episodic Malaise and fatigue (20 sources) Left hemiparesis; Translations: [Weakness] Onset: 01-19-2023 01-19-2023 Episodic Nausea and vomiting (20 sources) Intractable nausea and vomiting; Translations: [Nausea with vomiting, unspecified] Onset: 07-26-2020 Resolved: 08-03-2020 07-26-2020 Episodic Nonspecific chest pain (20 sources) Chest pain; Translations: [Chest pain, unspecified] Onset: 01-29-2018 Resolved: 09-25-2019 09-25-2019 Episodic Open wounds of head; neck; and trunk (4 sources) Laceration without foreign body of right eyelid and periocular area, initial encounter; Translations: [Laceration of right eyebrow] Onset: 10-18-2023 10-24-2023 Episodic Open wounds of head; neck; and trunk (1 source) Laceration without foreign body of left ear, initial encounter; Translations: [Laceration of left ear without foreign body, initial encounter] Onset: 07-28-2024 Episodic Other aftercare (1 source) Other fpc (current) drug therapy; Translations: [Other oil heaterman (current) drug therapy] Onset: 02-19-2025 Episodic Other circulatory disease (20 sources) Suspected cerebrovascular accident; Translations: [Other specified symptoms and signs involving the circulatory and respiratory systems] Onset: 02-23-2023 02-23-2023 Episodic Other connective tissue disease (16 sources) Sensory extinction; Translations: [Other symptoms and signs involving the nervous system] Onset: 05-19-2024 05-19-2024 Episodic Other fractures (20 sources) Closed fracture thoracic vertebra, burst ; Translations: [Stable burst fracture of T7-T8 vertebra, initial encounter for closed fracture] Onset: 01-11-2017 01-11-2017 Episodic Other fractures (20 sources) Compression fracture of lumbar spine; Translations: [Wedge compression fracture of unspecified lumbar vertebra, initial encounter for closed fracture] Onset: 01-11-2017 01-11-2017 Episodic Other fractures (20 sources) Fracture of seventh thoracic vertebra; Translations: [Wedge compression fracture of T7-T8 vertebra, subsequent encounter for fracture with routine healing] Onset: 01-05-2021 01-05-2021 Episodic Other fractures (17 sources) Fracture of multiple ribs ; Translations: [Multiple fractures of ribs, unspecified side, initial encounter for closed fracture] Onset: 05-18-2024 Resolved: 05-19-2024 05-18-2024 Episodic Other fractures (16 sources) Closed fracture of multiple left ribs; Translations: [Multiple fractures of ribs, left side, initial encounter for closed fracture] Onset: 05-19-2024 05-19-2024 Episodic Other hematologic conditions (20 sources) Secondary polycythemia; Translations: [Secondary polycythemia] Onset: 01-31-2018 07-26-2020 Episodic Other nervous system disorders (2 sources) Other symptoms and signs involving cognitive functions and awareness; Translations: [Oth symptoms and signs w cognitive functions and awareness] Onset: 05-15-2022 Episodic Other nervous system disorders (2 sources) Unspecified abnormalities of gait and mobility; Translations: [Unspecified abnormalities of gait and mobility] Onset: 05-15-2022 Episodic Other nervous system disorders (2 sources) Other abnormalities of gait and mobility; Translations: [Other abnormalities of gait and mobility] Onset: 04-06-2022 Episodic Other nervous system disorders (16 sources) Acute pain due to injury; Translations: [Acute pain due to trauma] Onset: 05-19-2024 05-19-2024 Episodic Other nervous system disorders (14 sources) Dysphasia; Translations: [Dysphasia] Onset: 06-02-2024 06-02-2024 Episodic Other nervous system disorders (1 source) Dysarthria and anarthria; Translations: [Dysarthria] Onset: 06-15-2024 Episodic Other screening for suspected conditions (not mental disorders or infectious disease) (2 sources) Encounter for screening, unspecified; Translations: [Encounter for screening, unspecified] Onset: 05-28-2024 Episodic Residual codes; unclassified (2 sources) Other amnesia; Translations: [Other amnesia] Onset: 04-06-2022 Episodic Residual codes; unclassified (20 sources) At risk of delirium; Translations: [Other specified personal risk factors, not elsewhere classified] Onset: 04-21-2024 04-21-2024 Episodic Residual codes; unclassified (16 sources) For resuscitation; Translations: [Other specified health status] Onset: 05-19-2024 05-19-2024 Episodic Residual codes; unclassified (1 source) Altered mental status Onset: 09-15-2024 Episodic Respiratory failure; insufficiency; arrest (adult) (20 sources) Acute respiratory failure; Translations: [Acute respiratory failure, unspecified whether with hypoxia or hypercapnia] Onset: 04-16-2024 Resolved: 06-20-2024 04-16-2024 Episodic Spondylosis; intervertebral disc disorders; other back problems (20 sources) Lumbar radiculopathy; Translations: [Radiculopathy, lumbar region] Onset: 09-07-2020 09-07-2020 Episodic Sprains and strains (3 sources) Sprain of shoulder; Translations: [Unspecified sprain of right shoulder joint, initial encounter] Onset: 10-31-2021 Episodic Superficial injury; contusion (20 sources) Abrasion of left elbow, initial encounter; Translations: [Abrasion or friction burn of elbow, forearm, and wrist, without mention of infection] Onset: 10-31-2021 Episodic Unclassified (1 source) Unspecified dementia, unspecified severity, with agitation (HCC); Translations: [Unspecified dementia, unspecified severity, with agitation (HCC)] Onset: 12-31-2024 Results Test Name Value Interpretation Reference Range Facility Bilirubin directOrdered By: Rose Clark on 04-19-2025 Bilirubin.direct [Mass/Vol] 0.09 mg/dL 0.00-0.30 [facility] Bilirubin, totalOrdered By: Rose Clark on 04-19-2025 Bilirubin [Mass/Vol] 0.26 mg/dL 0.00-1.30 [facility] Laboratory - Chemistry and C hemistry - challengeOrdered By: Rose Clark on 04-19-2025 AST [Catalytic activity/Vol] 16 U/L <38 [facility] Serum globulin measurementOr dered By: Rose Clark on 04-19-2025 Globulin (S) [Mass/Vol] 2.4 g/dL 2.2-4.2 [facility] Serum or plasma alanine khoury otransferase (ALT) measurementOrdered By: Rose Clark on 04-19-2025 ALT [Catalytic activity/Vol] 16 U/L <47 [facility] Serum or plasma albumin saumya urement (mass/volume)Ordered By: Rose Clark on 04-19-2025 Albumin [Mass/Vol] 4.2 g/dL 3.4-4.8 [facility] Serum or plasma alkaline dung sphatase measurementOrdered By: Rose Clark on 04-19-2025 ALP [Catalytic activity/Vol] 78 U/L 40-129 [facility] Serum or plasma valproate me asurement (mass/volume)Ordered By: Rose Clark on 04-19-2025 Valproate [Mass/Vol] 42 ug/mL Low 50-100 [facility] Comment on above: Valproic Acid concen trations >100 ug/mL are potentially toxic. Total proteinOrdered By: Simone Clark on 04-19-2025 Protein [Mass/Vol] 6.6 g/dL 5.9-8.4 [facility] Bilirubin directOrdered By: Rose Clark on 04-14-2025 Bilirubin.direct [Mass/Vol] 0.20 mg/dL 0.00-0.30 [facility] Bilirubin, totalOrdered By: Rose Clark on 04-14-2025 Bilirubin [Mass/Vol] 0.54 mg/dL 0.00-1.30 [facility] Laboratory - Chemistry and C hemistry - challengeOrdered By: Rose Clark on 04-14-2025 AST [Catalytic activity/Vol] 26 U/L <38 [facility] Serum globulin measurementOr dered By: Rose Clark on 04-14-2025 Globulin (S) [Mass/Vol] 3.0 g/dL 2.2-4.2 [facility] Serum or plasma alanine khoury otransferase (ALT) measurementOrdered By: Rose Clark on 04-14-2025 ALT [Catalytic activity/Vol] 22 U/L <47 [facility] Serum or plasma albumin saumya urement (mass/volume)Ordered By: Rose Clark on 04-14-2025 Albumin [Mass/Vol] 3.5 g/dL 3.4-4.8 [facility] Serum or plasma alkaline dung sphatase measurementOrdered By: Rose Clark on 04-14-2025 ALP [Catalytic activity/Vol] 70 U/L 40-129 [facility] Total proteinOrdered By: Simone Clark on 04-14-2025 Protein [Mass/Vol] 6.5 g/dL 5.9-8.4 [facility] Bilirubin Test strip Ql (U)O rdered By: Rose Clark on 03-23-2025 Bilirubin Ql (U) Negative Negative [facility] Ketones Test strip Ql (U)Ord ered By: Rose Clark on 03-23-2025 Ketones Ql (U) Negative Negative [facility] Nitrite Test strip Ql (U)Ord ered By: Rose Clark on 03-23-2025 Nitrite Ql (U) Negative Negative [facility] Protein Test strip Ql (U)Ord ered By: Rose Clark on 03-23-2025 Protein Ql (U) 15 mg/dl High Negative [facility] Urine clarityOrdered By: Simone Clark on 03-23-2025 Clarity (U) Clear Clear [facility] Urine color determinationOrd ered By: Rose Clark on 03-23-2025 Color (U) Yellow Yellow [facility] Urine glucose detectionOrder ed By: Rose Clark on 03-23-2025 Glucose Ql (U) Normal mg/dl Normal [facility] Urine leukocyte esterase det ection by dipstickOrdered By: Rose Clark on 03-23-2025 Leukocyte esterase Test strip Ql (U) Negative Negative [facility] Urine pHOrdered By: Rose maravilla on 03-23-2025 pH (U) 6.5 [pH] 5.0 - 8.0 [facility] Urine specific gravity measu rementOrdered By: Rose Clark on 03-23-2025 Specific gravity (U) [Rel density] 1.015 1.002-1.030 [facility] Urine urobilinogen measureme ntOrdered By: Rose Clark on 03-23-2025 Urobilinogen Ql (U) Normal mg/dl Normal [facility] Bilirubin directOrdered By: Rose Clark on 03-15-2025 Bilirubin.direct [Mass/Vol] 0.08 mg/dL 0.00-0.30 [facility] Comment on above: Hemolysis present, R esults could be affected. Bilirubin, totalOrdered By: Rose Clark on 03-15-2025 Bilirubin [Mass/Vol] 0.33 mg/dL 0.00-1.30 [facility] Laboratory - Chemistry and C hemistry - challengeOrdered By: Rose Clark on 03-15-2025 AST [Catalytic activity/Vol] 24 U/L <38 [facility] Comment on above: Hemolysis present, R esults could be affected. Serum globulin measurementOr dered By: Rose Clark on 03-15-2025 Globulin (S) [Mass/Vol] 2.9 g/dL 2.2-4.2 [facility] Serum or plasma alanine khoury otransferase (ALT) measurementOrdered By: Rose Clark on 03-15-2025 ALT [Catalytic activity/Vol] 14 U/L <47 [facility] Serum or plasma albumin saumya urement (mass/volume)Ordered By: Rose Clark on 03-15-2025 Albumin [Mass/Vol] 3.9 g/dL 3.4-4.8 [facility] Serum or plasma alkaline dung sphatase measurementOrdered By: Rose Clark on 03-15-2025 ALP [Catalytic activity/Vol] 84 U/L 40-129 [facility] Total proteinOrdered By: Simone Clark on 03-15-2025 Protein [Mass/Vol] 6.8 g/dL 5.9-8.4 [facility] Bilirubin directOrdered By: Rose Clark on 01-25-2025 Bilirubin.direct [Mass/Vol] 0.11 mg/dL 0.00-0.30 [facility] Bilirubin, totalOrdered By: Rose Clark on 01-25-2025 Bilirubin [Mass/Vol] 0.21 mg/dL 0.00-1.30 [facility] Laboratory - Chemistry and C hemistry - challengeOrdered By: Rose Clark on 01-25-2025 AST [Catalytic activity/Vol] 23 U/L <38 [facility] Serum globulin measurementOr dered By: Rose Clark on 01-25-2025 Globulin (S) [Mass/Vol] 3.0 g/dL 2.2-4.2 [facility] Serum or plasma alanine khoury otransferase (ALT) measurementOrdered By: Rose Clark on 01-25-2025 ALT [Catalytic activity/Vol] 34 U/L <47 [facility] Serum or plasma albumin saumya urement (mass/volume)Ordered By: Rose Clark on 01-25-2025 Albumin [Mass/Vol] 3.6 g/dL 3.4-4.8 [facility] Serum or plasma alkaline dung sphatase measurementOrdered By: Rose Clark on 01-25-2025 ALP [Catalytic activity/Vol] 137 U/L High 40-129 [facility] Total proteinOrdered By: Simone Clark on 01-25-2025 Protein [Mass/Vol] 6.6 g/dL 5.9-8.4 [facility] Serum or plasma valproate me asurement (mass/volume)Ordered By: Rose Clark on 01-20-2025 Valproate [Mass/Vol] 29 ug/mL Low 50-100 [facility] Comment on above: Valproic Acid concen trations >100 ug/mL are potentially toxic. Valproate [Mass/Vol]Ordered By: Rose Clark on 01-20-2025 Valproic Acid (Depakene) Level 29 ug/mL Low 50-100 [facility] Comment on above: Valproic Acid concen trations >100 ug/mL are potentially toxic. [facility] IV [facility] Patient Name: JONATHON PERALES : 1950 Exam Date/Time: 01/18/2025 15:23 Procedure: CT CERVICAL SPINE WO IV CONTRAST Ordering Provider: WOLFE JOSHUA Reason For Exam: Neck trauma (Age >= 64y) CT CERVICAL SPINE: CLINICAL INDICATION: Neck pain, trauma TECHNIQUE: Transaxial sequence through the cervical spine. Coronal and sagittal reconstructions included. Dose reduction was employed with automated exposure control. COMPARISON: None FINDINGS: There is nonspecific straightening of the normal cervical lordosis. No prevertebral soft tissue swelling. Craniocervical and atlantoaxial articulations are intact. Predental interval is not widened. Vertebral body heights are maintained. No cervical spine fracture. No spondylolisthesis. There are multilevel degenerative changes of the cervical spine with intervertebral disc space narrowing, endplate osteophytes, and uncovertebral and facet joint hypertrophy, most pronounced at C5-C6 and C6-C7. No high-grade osseous encroachment of the central canal or neural foramina. Imaged neck soft tissues and lung apices are unremarkable. IMPRESSION: No cervical spine fracture. Report Dictated on Electronically Signed By: Willie Cordon MD Electronically Signed Date/Time: 01/18/2025 5:02 PM EST Patient had 2 falls today, fell from the bed. Hx of left hemiparesis, hematoma on the left side of the head. Patient is on plavix and ASA Normal [facility] CT Cervical spine WO contras ton 01-18-2025 No cervical spine fracture. Report Dictated on Electronically Signed By: Willie Cordon MD Electronically Signed Date/Time: 01/18/2025 5:02 PM [facility] RADIOLOGY SYSTEM Patient Name: JONATHON DEWITT : 1950 Exam Date/Time: 01/18/2025 15:23 Procedure: CT CERVICAL SPINE WO IV CONTRAST Ordering Provider: WOLFE JOSHUA Reason For Exam: Neck trauma (Age >= 65y) CT CERVICAL SPINE: CLINICAL INDICATION: Neck pain, trauma TECHNIQUE: Transaxial sequence through the cervical spine. Coronal and sagittal reconstructions included. Dose reduction was employed with automated exposure control. COMPARISON: None FINDINGS: There is nonspecific straightening of the normal cervical lordosis. No prevertebral soft tissue swelling. Craniocervical and atlantoaxial articulations are intact. Predental interval is not widened. Vertebral body heights are maintained. No cervical spine fracture. No spondylolisthesis. There are multilevel degenerative changes of the cervical spine with intervertebral disc space narrowing, endplate osteophytes, and uncovertebral and facet joint hypertrophy, most pronounced at C5-C6 and C6-C7. No high-grade osseous encroachment of the central canal or neural foramina. Imaged neck soft tissues and lung apices are unremarkable. [facility] Willie Cordon MD - 01/18/2025 Patient Name: JONATHON PERALES : 1950 Exam Date/Time: 01/18/2025 15:23 Procedure: CT CERVICAL SPINE WO IV CONTRAST Ordering Provider: WOLFE JOSHUA Reason For Exam: Neck trauma (Age >= 65y) CT CERVICAL SPINE: CLINICAL INDICATION: Neck pain, trauma TECHNIQUE: Transaxial sequence through the cervical spine. Coronal and sagittal reconstructions included. Dose reduction was employed with automated exposure control. COMPARISON: None FINDINGS: There is nonspecific straightening of the normal cervical lordosis. No prevertebral soft tissue swelling. Craniocervical and atlantoaxial articulations are intact. Predental interval is not widened. Vertebral body heights are maintained. No cervical spine fracture. No spondylolisthesis. There are multilevel degenerative changes of the cervical spine with intervertebral disc space narrowing, endplate osteophytes, and uncovertebral and facet joint hypertrophy, most pronounced at C5-C6 and C6-C7. No high-grade osseous encroachment of the central canal or neural foramina. Imaged neck soft tissues and lung apices are unremarkable. IMPRESSION: No cervical spine fracture. Report Dictated on Electronically Signed By: Willie Cordon MD Electronically Signed Date/Time: 01/18/2025 5:02 PM [facility] [place] Radiology Study observation (narrative) [facility] CT HEAD WO IV CONTRASTon CT HEAD WO IV CONTRAST Patient Name: JONATHON LÓPEZ : 1950 Exam Date/Time: 01/18/2025 15:23 Procedure: CT HEAD WO IV CONTRAST Ordering Provider: WOLFE JOSHUA Reason For Exam: Head trauma, minor (Age >= 65y) CT HEAD: CLINICAL INDICATION: Headache, trauma TECHNIQUE: Transaxial CT sequence performed through the head with 3 mm reconstruction. Sagittal and Coronal reconstruction images included. Dose reduction was employed with automated exposure control. COMPARISON: 09/24/2024 FINDINGS: There is encephalomalacia and gliosis noted in the right frontoparietal and left parietal lobes with ex vacuo dilatation of the right frontal and left occipital horns. Additional small chronic infarcts in the left cerebellar lobe. Ventricles and sulci are otherwise prominent, consistent with age-related cerebral volume loss. There are scattered foci of hypoattenuation in the periventricular and subcortical white matter, which is nonspecific, but commonly seen with chronic small vessel ischemia. No extra-axial collection. No acute intracranial hemorrhage. No mass effect or midline shift. No CT evidence of an acute large territorial infarction. Imaged paranasal sinuses and mastoid air cells are well aerated. Calvarium is unremarkable. IMPRESSION: Remote bilateral infarcts with background cerebral atrophy and chronic small vessel ischemia as above. No acute intracranial hemorrhage or mass effect. Report Dictated on Electronically Signed By: Willie Cordon MD Electronically Signed Date/Time: 01/18/2025 5:01 PM EST Patient had 2 falls today, fell from the bed. Hx of left hemiparesis, hematoma on the left side of the head. Patient is on plavix and ASA Normal [facility] CT Head WO contraston 2024 Remote bilateral infarcts with background cerebral atrophy and chronic small vessel ischemia as above. No acute intracranial hemorrhage or mass effect. Report Dictated on Electronically Signed By: Willie Cordon MD Electronically Signed Date/Time: 01/18/2025 5:01 PM [facility] Patient Name: [facility]WITT [facility] 1950 [id number] Exam Date/Time: 01/18/2025 15:23 Procedure: CT HEAD WO IV CONTRAST Ordering Provider: WOLFE JOSHUA Reason For Exam: Head trauma, minor (Age >= 64y) CT HEAD: CLINICAL INDICATION: Headache, trauma TECHNIQUE: Transaxial CT sequence performed through the head with 3 mm reconstruction. Sagittal and Coronal reconstruction images included. Dose reduction was employed with automated exposure control. COMPARISON: 09/24/2024 FINDINGS: There is encephalomalacia and gliosis noted in the right frontoparietal and left parietal lobes with ex vacuo dilatation of the right frontal and left occipital horns. Additional small chronic infarcts in the left cerebellar lobe. Ventricles and sulci are otherwise prominent, consistent with age-related cerebral volume loss. There are scattered foci of hypoattenuation in the periventricular and subcortical white matter, which is nonspecific, but commonly seen with chronic small vessel ischemia. No extra-axial collection. No acute intracranial hemorrhage. No mass effect or midline shift. No CT evidence of an acute large territorial infarction. Imaged paranasal sinuses and mastoid air cells are well aerated. Calvarium is unremarkable. [facility] RADIOLOGY SYSTEM Willie Cordon MD - 01/18/2025 Patient Name: JONATHON PERALES : 1950 Exam Date/Time: 01/18/2025 15:23 Procedure: CT HEAD WO IV CONTRAST Ordering Provider: WOLFE JOSHUA Reason For Exam: Head trauma, minor (Age >= 64y) CT HEAD: CLINICAL INDICATION: Headache, trauma TECHNIQUE: Transaxial CT sequence performed through the head with 3 mm reconstruction. Sagittal and Coronal reconstruction images included. Dose reduction was employed with automated exposure control. COMPARISON: 09/24/2024 FINDINGS: There is encephalomalacia and gliosis noted in the right frontoparietal and left parietal lobes with ex vacuo dilatation of the right frontal and left occipital horns. Additional small chronic infarcts in the left cerebellar lobe. Ventricles and sulci are otherwise prominent, consistent with age-related cerebral volume loss. There are scattered foci of hypoattenuation in the periventricular and subcortical white matter, which is nonspecific, but commonly seen with chronic small vessel ischemia. No extra-axial collection. No acute intracranial hemorrhage. No mass effect or midline shift. No CT evidence of an acute large territorial infarction. Imaged paranasal sinuses and mastoid air cells are well aerated. Calvarium is unremarkable. IMPRESSION: Remote bilateral infarcts with background cerebral atrophy and chronic small vessel ischemia as above. No acute intracranial hemorrhage or mass effect. Report Dictated on Electronically Signed By: Willie Cordon MD Electronically Signed Date/Time: 01/18/2025 5:01 PM EST [facility] Radiology Study observation (narrative) [facility] CT Head WO contrastOrdered B y: Willie Cordon on 01-18-2025 [employer] Work Phone: ED Nursing Noteon 01-18-2025 ED Nursing Note Patient had 2 falls today, fell from the bed. Hx of left hemiparesis, hematoma on the left side of the head. Patient is on plavix and ASA Normal [facility] ED Provider Noteon ED Provider Note EMERGENCY DEPARTMENT ENCOUNTER Pt Name: Jonathon Perales Birthdate 1950 Date of evaluation: 01/18/2025 ED Provider: Twin Wolfe MD CHIEF COMPLAINT Chief Complaint Patient presents with Fall Patient fell today according to staff at [facility], out of his bed, hematoma to the left side of the head, alert and oriented to name, birthday and place. Hx of left side weakness due to stroke, patient is on blood thinner. HISTORY OF PRESENT ILLNESS (Location/Symptom, Timing/Onset, Context/Setting, Quality, Duration, Modifying Factors, Severity) Note limiting factors. I wore appropriate PPE for the entirety of this encounter. HPI Jonathon Perales is a 74 y.o. who presents to the emergency department with chief complaint of fall out of bed onto the floor at his group home facility. Patient states he did not lose consciousness. He is on aspirin and Plavix. States he is having some pain in the left occipital scalp but denies any other pain. Denies any injuries to the upper or lower extremities. Denies any back pain or abdominal pain. Patient has past medical history of previous stroke with left-sided deficits, Parkinson's disease with dementia. He states he was trying to walk but must of tripped. Nursing Notes were reviewed. Limitations to history: Dementia Outside historians: None REVIEW OF SYSTEMS Review of Systems All other systems reviewed and are negative. Pertinent positives and negatives as per HPI. PAST MEDICAL HISTORY Past Medical History: Diagnosis Date Anxiety Moses esophagus Depression Head injury Hemiplegia affecting left dominant side (HCC) High blood pressure High cholesterol Calvin's syndrome Hypertension Parkinson's disease (HCC) Stroke (HCC) SURGICAL HISTORY Past Surgical History: Procedure Laterality Date CARDIAC VALVE SURGERY [facility] Supra Stented valve model # [id number] 12/03/2008 CURRENT MEDICATIONS Previous Medications ACETAMINOPHEN (TYLENOL) 325 MG TABLET Take 650 mg by mouth every 4 hours as needed for mild pain (1-3). ASPIRIN 81 MG CHEWABLE TABLET Chew 81 mg in the morning. ATORVASTATIN (LIPITOR) 80 MG TABLET Take 80 mg by mouth Nightly. CARBIDOPA-LEVODOPA (SINEMET) 25-100 MG TABLET TAKE 1 TABLET BY MOUTH IN THE MORNING, 1 TABLET AT NOON AND 1 TABLET BEFORE BEDTIME CHOLECALCIFEROL (VITAMIN D-3) 25 MCG (1000 UT) TABLET Take 2,000 Units by mouth in the morning. CLOPIDOGREL (PLAVIX) 75 MG TABLET Take 75 mg by mouth in the morning. DIVALPROEX (DEPAKOTE ER) 250 MG 24 HR TABLET Take 250 mg by mouth 2 times daily. Do not crush, chew, or split. EZETIMIBE (ZETIA) 10 MG TABLET Take 10 mg by mouth in the morning. GABAPENTIN (NEURONTIN) 100 MG CAPSULE Take 100 mg by mouth in the morning and 100 mg in the evening. HEPARIN 5000 UNITS/ML INJECTION Inject 5,000 Units under the skin in the morning and 5,000 Units at noon and 5,000 Units in the evening. HYDROXYZINE PAMOATE (VISTARIL) 25 MG CAPSULE Take 25 mg by mouth 2 times daily. LIDOCAINE 4 % PATCH Place 1 patch on the skin in the morning. LORATADINE (CLARITIN) 10 MG TABLET Take by mouth. MECLIZINE (ANTIVERT) 25 MG TABLET 25 mg 3 times daily as needed for dizziness. MELATONIN 3 MG TABLET Take 3 mg by mouth Nightly as needed. METOPROLOL SUCCINATE XL (TOPROL-XL) 25 MG 24 HR TABLET Take 25 mg by mouth daily. Do not crush or chew. MIRTAZAPINE (REMERON) 7.5 MG TABLET Take 7.5 mg by mouth daily at bedtime. PANTOPRAZOLE (PROTONIX) 40 MG EC TABLET Take 40 mg by mouth in the morning. SENNA-DOCUSATE (MALU-COLACE) 8.6-50 MG TABLET Take 1 tablet by mouth in the morning and 1 tablet in the evening. TRAZODONE (DESYREL) 50 MG TABLET Take 25 mg by mouth 2 times daily. VENLAFAXINE (EFFEXOR) 75 MG TABLET Take 262.5 mg by mouth daily. ALLERGIES Oxycodone-acetaminophe n FAMILY HISTORY No family history on file. SOCIAL HISTORY Social History Socioeconomic History Marital status: Tobacco Use Smoking status: Never Smokeless tobacco: Never Vaping Use Vaping status: Never Used Substance and Sexual Activity Alcohol use: Not Currently Drug use: Never Social Drivers of Health Financial Resource Strain: Low Risk (04/30/2024) Received from [facility] Overall Financial Resource Strain ([facility]) Difficulty of Paying Living Expenses: Not hard at all Food Insecurity: No Food Insecurity (05/19/2024) Received from [facility] Hunger Vital Sign Worried About Running Out of Food in the Last Year: Never true Ran Out of Food in the Last Year: Never true Transportation Needs: No Transportation Needs (05/19/2024) Received from [facility] PRAPARE - Transportation Lack of Transportation (Medical): No Lack of Transportation (Non-Medical): No Stress: No Stress Concern Present (05/15/2024) Received from [facility] Occupational Health - Occupational Stress Questionnaire Feeling of Stress : Not at (more content not included)... Normal [facility] BUN/creatinine ratioOrdered By: Rose Clark on 01-15-2025 Urea nitrogen/Creatinine [Mass ratio] 17.5 mg/mg 10-20 [facility] Bilirubin directOrdered By: Rose Clark on 01-15-2025 Bilirubin.direct [Mass/Vol] 1.13 mg/dL High 0.00-0.30 [facility] Bilirubin, totalOrdered By: Rose Clark on 01-15-2025 Bilirubin [Mass/Vol] 2.05 mg/dL High 0.00-1.30 [facility] Calculated very low density lipoprotein (VLDL) cholesterol measurementOrdered By: Rose Clark on 01-15-2025 Calculated very low density lipoprotein (VLDL) cholesterol measurement 20 mg/dL 5-40 [facility] VLDL Cholesterol 20 mg/dL 5-40 [facility] Carbon dioxide measurementOr dered By: Rose Clark on 01-15-2025 CO2 [Moles/Vol] 22.5 mmol/L 22.0-29.0 [facility] Chloride measurementOrdered By: Rose Clark on 01-15-2025 Chloride [Moles/Vol] 99 mmol/L 96-108 [facility] Erythrocyte distribution wid th (RBC) [Ratio]Ordered By: Rose Clark on 01-15-2025 Erythrocyte distribution width (RBC) [Entitic vol] 43.7 fL 35.1-43.9 [facility] Erythrocyte distribution wid th ratioOrdered By: Rose Clark on 01-15-2025 Erythrocyte distribution width (RBC) [Ratio] 12.5 % 11.6-14.6 [facility] Erythrocyte distribution wid th standard deviationOrdered By: Rose Clark on 01-15-2025 Erythrocyte distribution width (RBC) [Ratio] 43.7 fl 35.1-43.9 [facility] GFR/1.73 sq M.predicted fiorella g non-blacks MDRD (S/P/Bld) [Vol rate/Area]Ordered By: Rose Clark on 01-15-2025 Estimated GFR (MDRD) Non-Af Amer 81 >60 [facility] Comment on above: mL/min/1.73m2 CKD-EP I Creatinine Equation (2020) Glomerular filtration rate ( GFR) estimation/1.73 sq m using serum, plasma, or whole bOrdered By: Rose Clark on 01-15-2025 GFR/1.73 sq M.predicted among non-blacks MDRD (S/P/Bld) [Vol rate/Area] 81 mL/min/{1.73_m2} >60 [facility] Comment on above: mL/min/1.73m2 CKD-EP I Creatinine Equation (2020) Hematocrit Auto (Bld) [Volum e fraction]Ordered By: Rose Clark on 01-15-2025 Hematocrit (Bld) [Volume fraction] 43.3 % 40-54 [facility] Hemoglobin measurementOrdere d By: Rose Clark on 01-15-2025 Hemoglobin (Bld) [Mass/Vol] 14.2 g/dL 13.0-16.5 [facility] LDL calc ser/plasOrdered By: Rose Clark on 01-15-2025 Cholesterol in LDL [Mass/Vol] 83 mg/dL [facility] Comment on above: Ffnutapnix=325-452 m g/dL & Higher Fats=316 mg/dL or greater LDL Cholesterol, Calculated 83 mg/dL [facility] Comment on above: Iiinheaeuc=340-295 m g/dL & Higher Cpxa=696 mg/dL or greater Laboratory - Chemistry and C hemistry - challengeOrdered By: Rose Clark on 01-15-2025 AST [Catalytic activity/Vol] 529 U/L High <38 [facility] MCV (mean corpuscular volume ) determinationOrdered By: Rose Clark on 01-15-2025 MCV (RBC) [Entitic vol] 95.4 fL High 80-94 [facility] Mean corpuscular hemoglobin (MCH) determinationOrdered By: Rose Clark on 01-15-2025 MCH (RBC) [Entitic mass] 31.3 pg 27.0-32.0 [facility] Mean corpuscular hemoglobin concentration (MCHC) determinationOrdered By: Rose Clark on 01-15-2025 MCHC (RBC) [Mass/Vol] 32.8 g/dL 32-36 [facility] Mean platelet volume determi nationOrdered By: Rose Clark on 01-15-2025 Platelet mean volume (Bld) [Entitic vol] 10.2 fL 6.2-12.0 [facility] Platelet countOrdered By: Aleena Clark on 01-15-2025 Platelets (Bld) [#/Vol] 179 10*3/uL 150-450 [facility] RBC Auto (Bld) [#/Vol]Ordere d By: Rose Clark on 01-15-2025 RBC (Bld) [#/Vol] 4.54 10*6/uL Low 4.6-6.2 [facility] Screening total cholesterol/ high density lipoprotein (HDL) cholesterol ratioOrdered By: Rose Clark on 01-15-2025 Cholesterol.total/Geno sterol in HDL [Mass ratio] 2.59 {ratio} [facility] Serum creatinine measurement (mass/volume)Ordered By: Rose Clark on 01-15-2025 Creatinine [Mass/Vol] 0.98 mg/dL 0.70-1.20 [facility] Serum globulin measurementOr dered By: Rose Clark on 01-15-2025 Globulin (S) [Mass/Vol] 3.1 g/dL 2.2-4.2 [facility] Serum glucose measurement (m ass/volume)Ordered By: Rose Clark on 01-15-2025 Glucose [Mass/Vol] 89 mg/dL 70-99 [facility] Serum or plasma alanine khoury otransferase (ALT) measurementOrdered By: Rose Clark on 01-15-2025 ALT [Catalytic activity/Vol] 627 U/L High <47 [facility] Serum or plasma albumin saumya urement (mass/volume)Ordered By: Rose Clark on 01-15-2025 Albumin [Mass/Vol] 3.8 g/dL 3.4-4.8 [facility] Serum or plasma alkaline dung sphatase measurementOrdered By: Rose Clark on 01-15-2025 ALP [Catalytic activity/Vol] 196 U/L High 40-129 [facility] Serum or plasma anion gap de termination (moles/volume)Ordered By: Rose Clark on 01-15-2025 Anion gap [Moles/Vol] 12 mmol/L 5-15 [facility] Serum or plasma calcium saumya urement (mass/volume)Ordered By: Rose Clark on 01-15-2025 Calcium [Mass/Vol] 9.3 mg/dL 7.6-11.0 [facility] Serum or plasma cholesterol in HDL measurement (mass/volume)Ordered By: Rose Clark on 01-15-2025 Cholesterol in HDL [Mass/Vol] 65 mg/dL >40 [facility] Comment on above: National Cholesterol Education Program (NCEP) guidelines:<40 mg/dL: Low HDL-cholesterol (major risk factor for CHD)>= 60 mg/dL: High HDL-cholesterol (negative risk factor for CHD)HDL-cholesterol is affected by a number of factors, e.g. smoking, exercise, hormones, sex and age. Serum or plasma cholesterol measurement (mass/volume)Ordered By: Rose Clark on 01-15-2025 Cholesterol [Mass/Vol] 168 mg/dL <201 [facility] Comment on above: Cholesterol level, D esirable <200 mg/dLBorderline high cholesterol 200-239 mg/dLHigh cholesterol >=240 mg/dLRecommendations of the NCEP Adult Treatment Panel for the following risk-cutoff thresholds for the [place] population. Serum or plasma potassium me asurementOrdered By: Rose Clark on 01-15-2025 Potassium [Moles/Vol] 4.6 mmol/L 3.3-5.1 [facility] Serum or plasma sodium measu rement (moles/volume)Ordered By: Rose Clark on 01-15-2025 Sodium [Moles/Vol] 133 mmol/L 133-145 [facility] Serum or plasma urea nitroge n measurement (mass/volume)Ordered By: Rose Clark on 01-15-2025 Urea nitrogen [Mass/Vol] 17 mg/dL 4-19 [facility] Total proteinOrdered By: Simone Clark on 01-15-2025 Protein [Mass/Vol] 6.8 g/dL 5.9-8.4 [facility] Triglycerides measurementOrd ered By: Rose Clark on 01-15-2025 Triglyceride [Mass/Vol] 101 mg/dL <199 [facility] Comment on above: The drugs N-Acetylcy steine and Metamizole may falsely depress this assay. Normal range: <150 mg/dLBorderline High: 150-199 mg/dLHigh: 200-499 mg/dLVery High: >500 mg/dL White blood cell (WBC) count Ordered By: Rose Clark on 01-15-2025 WBC (Bld) [#/Vol] 7.9 10*3/uL 4.4-11.0 [facility] BASIC METABOLIC PANELon 12-19 Anion gap [Moles/Vol] 7 mmol/L Normal 3-13 [facility] Comment on above: Performed By: #### L [id number] ####Glass Edger: ERIKA SAVAGE ([id number])[facility] InfolinksTMAN (SWRLAB)[address] [place] [address] Calcium [Mass/Vol] 9.5 mg/dL Normal 8.8-10.0 [facility] Comment on above: Performed By: #### L AB15 ####Glass Edger: ERIKA SAVAGE ([id number])[facility] IRMA RITTMAN (SWRLAB)[address] [place] [address] [place] Chloride [Moles/Vol] 107 mmol/L Normal 98-107 [facility] Comment on above: Performed By: #### L AB15 ####Glass Edger: ERIKA SAVAGE ([id number])[facility] IRMA RITTMAN (SWRLAB)[address] [place] [address] [place] CO2 [Moles/Vol] 27 mmol/L Normal 23-31 [facility] Comment on above: Performed By: #### L AB15 ####Glass Edger: ERIKA SAVAGE ([id number])[facility] SOLIS RITTMAN (SWRLAB)[address] [place] [address] [place] Creatinine [Mass/Vol] 1.09 mg/dL Normal 0.72-1.25 [facility] Comment on above: Performed By: #### L AB15 ####Glass Edger: ERIKA SAVAGE ([id number])[facility] SOLIS RITTMAN (SWRLAB)[address] [place] [address] [place] GLOMERULAR FILTRATION RATE ML/MIN/1.73 SQ M.PREDICTED 70.8 mL/min/1.73m*2 Normal >60.0 [facility] Comment on above: Result Comment: Calc ulation based on the Chronic Kidney Disease Epidemiology Collaboration (CKD-EPI) equation refit without adjustment for race Performed By: #### L AB15 ####Glass Edger: ERIKA SAVAGE ([id number])[facility] SOLIS RITTMAN (SWRLAB)[address] [place] [address] [place] Glucose [Mass/Vol] 88 mg/dL Normal 82-115 [facility] Comment on above: Performed By: #### L AB15 ####Glass Edger: ERIKA SAVAGE ([id number])[facility] SOLIS RITTMAN (SWRLAB)[address] [place] [address] [place] Potassium [Moles/Vol] 4.2 mmol/L Normal 3.5-5.1 [facility] Comment on above: Result Comment: [facility] potassium values may be up to 0.5 mmol/L lower than serum values. Performed By: #### L AB15 ####Glass Edger: ERIKA SAVAGE ([id number])[facility] SOLIS RITTMAN (SWRLAB)[address] [place] [address] [place] Sodium [Moles/Vol] 141 mmol/L Normal 136-145 [facility] Comment on above: Performed By: #### L AB15 ####Glass Edger: ERIKA SAVAGE ([id number])[facility] IRMA RITTMAN (SWRLAB)[address] Urea nitrogen [Mass/Vol] 31 mg/dL High 9-23 [facility] Comment on above: Performed By: #### L AB15 ####Glass Edger: ERIKA SAVAGE ([id number])[facility] IRMACHELSEA ARAUZTMAN (SWRLAB)[address] Basic metabolic 1998 panelon 12-31-2024 Anion gap [Moles/Vol] 7 mmol/L 3 - 13 mmol/L [facility] Calcium [Mass/Vol] 9.5 mg/dL 8.8 - 10. 0 mg/dL [facility] Chloride [Moles/Vol] 107 mmol/L 98 - 10 7 mmol/L [facility] CO2 [Moles/Vol] 27 mmol/L 23 - 31 mmol/L [facility] Creatinine [Mass/Vol] 1.09 mg/dL 0.72 - 1.25 mg/dL [facility] GFR/1.73 sq M.predicted (S/P/Bld) [Vol rate/Area] 70.8 mL/min - PINF [facility] Comment on above: Calculation based on the Chronic Kidney Disease Epidemiology Collaboration (CKD-EPI) equation refit without adjustment for race Glucose [Mass/Vol] 88 mg/dL 82 - 115 mg/dL [facility] Interpretation and review of laboratory results Abnormal [facility] Potassium [Moles/Vol] 4.2 mmol/L 3.5 - 5.1 mmol/L [facility] Comment on above: Plasma potassium luisa ues may be up to 0.5 mmol/L lower than serum values. Sodium [Moles/Vol] 141 mmol/L 136 - 145 mmol/L [facility] Urea nitrogen [Mass/Vol] 31 mg/dL High 9 - 23 mg/dL [facility] CBC (HEMOGRAM)on 12-31-2024 Erythrocyte distribution width (RBC) [Ratio] 12.5 % Normal 11.5-15.0 [facility] Comment on above: Performed By: #### L [id number] ####Glass Edger: ERIKA SAVAGE ([id number])[facility]ALTHCAREIRMA GIANNIAN (SWRLAB)[address] Hematocrit (Bld) [Volume fraction] 42.4 % Normal 40.0-52.0 [facility] Comment on above: Performed By: #### L [id number] ####Glass Edger: ERIKA SAVAGE ([id number])[facility]ALSof[facility] ARAUZTMAN (SWRLAB)[address] [place] [address] Hemoglobin (Bld) [Mass/Vol] 14.5 g/dL Normal 13.0-18.0 [facility] Comment on above: Performed By: #### L [id number] ####Glass Edger: ERIKA SAVAGE ([id number])[facility]ALSofía SOLIS RITTMAN (SWRLAB)[address] [place] [address] MCH (RBC) [Entitic mass] 32.2 pg Normal 26.0-34.0 [facility] Comment on above: Performed By: #### L [id number] ####Glass Edger: ERIKA SAVAGE ([id number])[facility]ALSofía SOLIS RITTMAN (SWRLAB)[address] [place] [address] MCHC 34.2 % Normal 30.5-36.0 [facility] Comment on above: Performed By: #### L [id number] ####Glass Edger: ERIKA SAVAGE ([id number])[facility]ALSof[facility] ARAUZTMAN (SWRLAB)[address] [place] [address] MCV (RBC) [Entitic vol] 94.0 fL Normal 77.0-99.0 [facility] Comment on above: Performed By: #### L [id number] ####Glass Edger: ERIKA SAVAGE ([phone])[facility]ALSofía SOLIS RITTMAN (SWRLAB)[address] [place] [address] Platelet mean volume (Bld) [Entitic vol] 8.8 fL Low 9.0-12.7 [facility] Comment on above: Result Comment: MPV is a calculated measurement using platelet volume ratio Performed By: #### L [id number] ####Glass Edger: ERIKA SAVAGE ([id number])[facility]ALSof[facility] ARAUZTMAN (SWRLAB)[address] [place] [address] [place] Platelets (Bld) [#/Vol] 329 10*3/uL Normal 140-440 [facility] Comment on above: Performed By: #### L [id number] ####Glass Edger: ERIKA SAVAGE ([id number])[facility]ALSof[facility] ARAUZTMAN (SWRLAB)[address] [place] [address] RBC (Bld) [#/Vol] 4.51 10*6/uL Normal 4.40-5.90 [facility] Comment on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 CERVICAL SPINE: Craniocervical Junction: Normal alignment. Alignment: Anatomic Vertebrae: No acute fracture or traumatic malalignment. No aggressive osseous lesions. Soft Tissues: No acute abnormality. Right carotid stent. Canal and Foramina: Mild cervical spine degenerative changes with estimated mild spinal stenosis. IMPRESSION: Head: No intracranial traumatic injuries. Several remote infarcts. Cervical spine: No acute cervical spine fracture or traumatic malalignment. Report Dictated on Electronically Signed By: Rose Holcomb MD Electronically Signed Date/Time: 09/24/2024 3:23 PM EST [facility] IV [facility]AST[facility] CT HEAD WO IV CONTRAST Patient Name: JONATHON LÓPEZ : 1950 [facility]#: [id number] Exam Date/Time: 09/24/2024 15:10 Procedure: CT HEAD WO IV CONTRAST Ordering Provider: SALDAÑA MERIWETHER Reason For Exam: fall on plavix and ASA, head lac, altered CT HEAD WITHOUT CONTRAST CT CERVICAL SPINE WITHOUT CONTRAST CLINICAL HISTORY: fall on plavix and ASA, head lac, altered COMPARISON: 05/28/2024 TECHNIQUE: 1. Helical CT of the brain without contrast. 2. Helical CT of the cervical spine without contrast. Dose reduction was employed with automated exposure control. FINDINGS: CT HEAD: Acute Findings: No hemorrhage, mass, or infarct. Chronic Changes: Large remote right MCA territory infarct and smaller remote left parietal MCA territory infarct. Small remote left cerebellar infarcts. Ventricles and sulci: Moderate generalized brain parenchymal volume loss with corresponding enlarged ventricles. Other: The skull, included paranasal sinuses and orbits are normal. CERVICAL SPINE: Craniocervical Junction: Normal alignment. Alignment: Anatomic Vertebrae: No acute fracture or traumatic malalignment. No aggressive osseous lesions. Soft Tissues: No acute abnormality. Right carotid stent. Canal and Foramina: Mild cervical spine degenerative changes with estimated mild spinal stenosis. IMPRESSION: Head: No intracranial traumatic injuries. Several remote infarcts. Cervical spine: No acute cervical spine fracture or traumatic malalignment. Report Dictated on Electronically Signed By: Rose Holcomb MD Electronically Signed Date/Time: 09/24/2024 3:[address] [facility] CT Head WO contraston 2023 Patient Name: JONATHON DEWITT : 1950 Exam Date/Time: 09/24/2024 15:10 Procedure: CT HEAD WO IV CONTRAST Ordering Provider: SALDAÑA MERIWETHER Reason For Exam: fall on plavix and ASA, head lac, altered CT HEAD WITHOUT CONTRAST CT CERVICAL SPINE WITHOUT CONTRAST CLINICAL HISTORY: fall on plavix and ASA, head lac, altered COMPARISON: 05/28/2024 TECHNIQUE: 1. Helical CT of the brain without contrast. 2. Helical CT of the cervical spine without contrast. Dose reduction was employed with automated exposure control. FINDINGS: CT HEAD: Acute Findings: No hemorrhage, mass, or infarct. Chronic Changes: Large remote right MCA territory infarct and smaller remote left parietal MCA territory infarct. Small remote left cerebellar infarcts. Ventricles and sulci: Moderate generalized brain parenchymal volume loss with corresponding enlarged ventricles. Other: The skull, included paranasal sinuses and orbits are normal. CERVICAL SPINE: Craniocervical Junction: Normal alignment. Alignment: Anatomic Vertebrae: No acute fracture or traumatic malalignment. No aggressive osseous lesions. Soft Tissues: No acute abnormality. Right carotid stent. Canal and Foramina: Mild cervical spine degenerative changes with estimated mild spinal stenosis. [facility] Rose Holcomb M D - 09/24/2024 Patient Name: JONATHON PERALES : 1950 Exam Date/Time: 09/24/2024 15:10 Procedure: CT HEAD WO IV CONTRAST Ordering Provider: SALDAÑA MERIWETHER Reason For Exam: fall on plavix and ASA, head lac, altered CT HEAD WITHOUT CONTRAST CT CERVICAL SPINE WITHOUT CONTRAST CLINICAL HISTORY: fall on plavix and ASA, head lac, altered COMPARISON: 05/28/2024 TECHNIQUE: 1. Helical CT of the brain without contrast. 2. Helical CT of the cervical spine without contrast. Dose reduction was employed with automated exposure control. FINDINGS: CT HEAD: Acute Findings: No hemorrhage, mass, or infarct. Chronic Changes: Large remote right MCA territory infarct and smaller remote left parietal MCA territory infarct. Small remote left cerebellar infarcts. Ventricles and sulci: Moderate generalized brain parenchymal volume loss with corresponding enlarged ventricles. Other: The skull, included paranasal sinuses and orbits are normal. CERVICAL SPINE: Craniocervical Junction: Normal alignment. Alignment: Anatomic Vertebrae: No acute fracture or traumatic malalignment. No aggressive osseous lesions. Soft Tissues: No acute abnormality. Right carotid stent. Canal and Foramina: Mild cervical spine degenerative changes with estimated mild spinal stenosis. IMPRESSION: Head: No intracranial traumatic injuries. Several remote infarcts. Cervical spine: No acute cervical spine fracture or traumatic malalignment. Report Dictated on Electronically Signed By: Rose Holcomb MD Electronically Signed Date/Time: 09/24/2024 3:23 PM [facility] ED Nursing Noteon 09-24-2024 ED Nursing Note Paperwork and pt belongings given to Romeomartinez Azul for transport back to [facility], report given. Pt stable with no distress noted on departure. [facility] ED Nursing Note Pt became agitated with staff stating someone is a liar. Pt confused with a hx of dementia. RN reasoned with pt and got him to calm down. Dinner ordered for pt and will continue to monitor. [facility] ED Nursing Note Transport arranged v ia round trip. RN called and gave report to staff at [facility] ED Nursing Note This RN answered pt' s call light after he was screaming. He said now I know you aren't just going to walk in here. You aren't going to do anything" [facility] ED Provider Noteon ED Provider Note EMERGENCY DEPARTMENT ENCOUNTER Pt Name: Jonathon Perales Birthdate 1950 Date of evaluation: 09/24/2024 ED Provider: Sloane Saldaña MD CHIEF COMPLAINT Chief Complaint Patient presents with ? Fall Pt in by EMS from [facility] memory care unit. States "He was sitting on the toilet and went to stand up and fell forward hitting hit head on the grab bar", per EMS, pt on plavix. Denies LOC. Pt with history of dementia and stroke with weakness to left side. Pt Aox1. HISTORY OF PRESENT ILLNESS (Location/Symptom, Timing/Onset, Context/Setting, Quality, Duration, Modifying Factors, Severity) Note limiting factors. I wore appropriate PPE for the entirety of this encounter. HPI Jonathon Perales is a 74 y.o. adult with history of dementia, valve replacement on Plavix/ASA and left sided weakness from a stroke who presents for a fall from standing with head injury but no LOC per EMS. Per EMS, he stood and fell forward, hitting his head on the grab bar; he states a nurse/aid pushed the door open not realizing he was there and that was the cause of his fall. He reported L cheek and eye pain to EMS but denies it now. He denies any complaints. Nursing Notes were reviewed. Limitations to history: Altered mental status/confusion Outside historians: EMS REVIEW OF SYSTEMS Review of Systems Pertinent positives and negatives as per HPI. PAST MEDICAL HISTORY Past Medical History: Diagnosis Date ? Depression ? Head injury ? High blood pressure ? High cholesterol ? Hypertension ? Stroke (HCC) SURGICAL HISTORY Past Surgical History: Procedure Laterality Date ? CARDIAC VALVE SURGERY [facility] Epic Supra Stented valve model # [id number] 12/03/2008 CURRENT MEDICATIONS Current Discharge Medication List CONTINUE these medications which have NOT CHANGED Details aspirin 81 MG chewable tablet Chew 81 mg in the morning. carbidopa-levodopa (Sinemet) 25-100 MG tablet TAKE 1 TABLET BY MOUTH IN THE MORNING, 1 TABLET AT NOON AND 1 TABLET BEFORE BEDTIME Qty: 90 tablet, Refills: 0 cholecalciferol (Vitamin D-3) 25 MCG (1000 UT) tablet Take 2,000 Units by mouth in the morning. clopidogrel (Plavix) 75 MG tablet Take 75 mg by mouth in the morning. ezetimibe (Zetia) 10 MG tablet Take 10 mg by mouth in the morning. gabapentin (Neurontin) 100 MG capsule Take 100 mg by mouth in the morning and 100 mg in the evening. heparin 5000 units/mL injection Inject 5,000 Units under the skin in the morning and 5,000 Units at noon and 5,000 Units in the evening. Lidocaine 4 % patch Place 1 patch on the skin in the morning. loratadine (Claritin) 10 MG tablet Take by mouth. meclizine (Antivert) 25 MG tablet 25 mg 3 times daily as needed for dizziness. melatonin 3 MG tablet Take 3 mg by mouth Nightly as needed. mirtazapine (Remeron) 7.5 MG tablet Take 7.5 mg by mouth daily at bedtime. pantoprazole (ProtoNix) 40 MG EC tablet Take 40 mg by mouth in the morning. senna-docusate (Malu-Colace) 8.6-50 MG tablet Take 1 tablet by mouth in the morning and 1 tablet in the evening. venlafaxine (Effexor) 75 MG tablet Take 75 mg by mouth in the morning and 75 mg at noon and 75 mg in the evening. ALLERGIES Oxycodone-acetaminophe n FAMILY HISTORY No family history on file. SOCIAL HISTORY Social History Socioeconomic History ? Marital status: Tobacco Use ? Smoking status: Never ? Smokeless tobacco: Never Vaping Use ? Vaping status: Never Used Substance and Sexual Activity ? Alcohol use: Not Currently ? Drug use: Never Social Drivers of Health Financial Resource Strain: Low Risk (04/30/2024) Received from [facility] Overall Financial Resource Strain (CARDIA) ? Difficulty of Paying Living Expenses: Not hard at all Food Insecurity: No Food Insecurity (05/19/2024) Received from [facility] Hunger Vital Sign ? Worried About Running Out of Food in the Last Year: Never true ? Ran Out of Food in the Last Year: Never true Transportation Needs: No Transportation Needs (05/19/2024) Received from [facility] PRAPARE - Transportation ? Lack of Transportation (Medical): No ? Lack of Transportation (Non-Medical): No Stress: No Stress Concern Present (05/15/2024) Received from [facility] of Occupational Health - Occupational Stress Questionnaire ? Feeling of Stress : Not at all Social Connections: Unknown (04/30/2024) Received from [facility] Social Connection and Isolation Panel [NHANES] ? Frequency of Communication with Friends and Family: More than three times a week ? Frequency of Social Gatherings with Friends and Family: More than three times a week ? Attends [employer] Services: Patient declined ? Active Member of Clubs or Organizations: Patient declined ? Attends Club or Organization Meetings: Patient declined ? Marital Status: Intimate Partner Violence: Not At Risk (04/30/2024) Received fr (more content not included)... [facility] ED Provider Note Emergency Department Encounter [facility] EMERGENCY DEPT Patient: Jonathon Perales : 1950 Date of Evaluation: 09/24/2024 ED Supervising Physician: Fredrick Howell MD I independently examined and evaluated Jonathon Perales. I personally saw the patient and performed a substantive portion of the visit including all aspects of the medical decision making, made/approved the management plan, and take responsibility for the patient management. In brief, Jonathon Perales is a 74 y.o. male that presents to the emergency department with fall out of senior care crania small injury to his head. No apparent loss of conscious, is on aspirin and Plavix, patient denies headache or neck pain, denies any other injury at this time, denies feeling ill Focused exam: Stable vital signs, nontoxic, resident did full primary and secondary survey but really only injury found is a small scalp injury already treated with Steri-Strips. Does not seem to have neck pain but with his age, head injury, history of dementia would not fully rely on history to adequately clear. No other injuries noted. ED course/MDM: Needs head and neck CT because of fall with head injury on blood thinners but in absence of loss of conscious or other acute neurologic findings would not feel he needs admitted for further observation if that checks out okay. Diagnostic considerations: Serna results and interpretations: Treatment summary: Consultations: SCREENINGS CRITICAL CARE TIME I, Dr. Fredrick Howell, am the medical researcher of record. All diagnostic, treatment, and disposition decisions were made by myself in conjunction with the resident or DAHIANA I supervised for this case. For all further details of the patient's emergency department visit, please see their documentation. (Please note that portions of this note may have been completed with a voice recognition program. Efforts were made to edit the dictations but occasionally words are mis-transcribed.) Fredrick Howell MD [employer] Fredrick Howell MD 09/24/24 1796 [facility] No Panel Informationon 09-24 Head: No intracranial traumatic injuries. Several remote infarcts. Cervical spine: No acute cervical spine fracture or traumatic malalignment. Report Dictated on Electronically Signed By: Rose Holcomb MD Electronically Signed Date/Time: 09/24/2024 3:23 PM [facility] Radiology Study observation (narrative) [facility] No Panel InformationOrdered By: Rose Holcomb on 09-24-[address] [facility] Work Phone: [facility] 09-15-2024 [facility] HNO ID: [id number] Author: MATY HART RT(R) Service: Radiology Author Type: Technologist Type: Allied Health Filed: 09/15/2024 15:45 Note Text: Radiology Service Progress Note PATIENT NAME: Jonathon Perales DATE OF SERVICE: September 15, 2024 TIME: 3:45 PM PATIENT IDENTITY VERIFICATION COMPLETED USING TWO (2) IDENTIFIERS: Name and Date of confirmed by patient verbally and Name and Date of confirmed by identification band. FALL SCREENING: Has the patient had 2 falls in the last year or 1 fall with injury or currently using an Ambulatory Assistive Device (Walker, Cane, Wheelchair, Crutches, etc.)? Emergency Room Patient: Screened in ED PATIENT GENDER DATA: Male PATIENT RELEVANT IMPLANT DATA REVIEWED: Not Applicable PATIENT PRESENTS WITH AN IMPLANTABLE OR ATTACHED INTERVIEWING CLERK: No RADIOLOGY DEPARTMENT: CT; Exam(s) Completed: Brain and Spine PERIPHERAL IV DATA: Not applicable SIGNED BY: RT Derek(R) September 15, 2024 3:45 PM Normal [facility] CBC W Auto Differential pane l (Bld)on 09-15-2024 Basophils (Bld) [#/Vol] 0.08 10*3/uL Normal <0.11 [facility] Comment on above: Order Comment: Speci men Type: BLOOD SPECIMENOrdering Facility: [facility] Address: [address] [place] [address] Performed By: #### 5 7021-8 ####[facility] LABORATORYCLIA [id number] [place] [address] [place] Basophils/100 WBC (Bld) 1.2 % Normal [facility] Comment on above: Order Comment: Speci men Type: BLOOD SPECIMENOrdering Facility: [facility] Address: [address] [place] [address] Performed By: #### 5 7021-8 ####[facility]ORATORYCLIA [id number] [address] [place] Differential cell count method Nom (Bld) Auto Normal [facility] Comment on above: Order Comment: Speci men Type: BLOOD SPECIMENOrdering Facility: [facility] Address: [address] [place] [address] Performed By: #### 5 7021-8 ####[facility] LABORATORYCLIA [id number] [address] [place] Eosinophils (Bld) [#/Vol] 0.39 10*3/uL Normal <0.46 [facility] Comment on above: Order Comment: Speci men Type: BLOOD SPECIMENOrdering Facility: [facility] Address: [address] [place] [address] Performed By: #### 5 7021-8 ####[facility] LABORATORYCLIA [id number] [address] Eosinophils/100 WBC (Bld) 5.9 % Normal [facility] Comment on above: Order Comment: Speci men Type: BLOOD SPECIMENOrdering Facility: [facility] Address: [address] [place] [address] Performed By: #### 5 7021-8 ####[facility] LABORATORYCLIA [id number] [address] [place] Erythrocyte distribution width (RBC) [Ratio] 11.7 % Normal 11.5-15.0 [facility] Comment on above: Order Comment: Speci men Type: BLOOD SPECIMENOrdering Facility: [facility] Address: [address] [place] [address] Performed By: #### 5 7021-8 ####[facility] LABORATORYCLIA [id number] [address] [place] Hematocrit (Bld) [Volume fraction] 41.5 % Normal 39.0-51.0 [facility] Comment on above: Order Comment: Speci men Type: BLOOD SPECIMENOrdering Facility: [facility] Address: [address] [place] [address] Performed By: #### 5 7021-8 ####[facility]ORATORYCLIA [id number] [place] [address] [place] Hemoglobin (Bld) [Mass/Vol] 13.7 g/dL Normal 13.0-17.0 [facility] Comment on above: Order Comment: Speci men Type: BLOOD SPECIMENOrdering Facility: [facility] Address: [address] [place] [address] Performed By: #### 5 7021-8 ####[facility]ORATORYCLIA [id number] [address] [place] Immature granulocytes (Bld) [#/Vol] 0.03 10*3/uL Normal <0.10 [facility] Comment on above: Order Comment: Speci men Type: BLOOD SPECIMENOrdering Facility: [facility] Address: [address] [place] [address] Performed By: #### 5 7021-8 ####[facility] LABORATORYCLIA [id number] [address] [place] Immature granulocytes/100 WBC (Bld) 0.5 % Normal [facility] Comment on above: Order Comment: Speci men Type: BLOOD SPECIMENOrdering Facility: [facility] Address: [address] [place] [address] Performed By: #### 5 7021-8 ####[facility]ATORYCLIA [id number] [place] [address] [place] Lymphocytes (Bld) [#/Vol] 1.57 10*3/uL Normal 1.00-4.00 [facility] Comment on above: Order Comment: Speci men Type: BLOOD SPECIMENOrdering Facility: [facility] Address: [address] [place] [address] Performed By: #### 5 7021-8 ####[facility]ATORYCLIA [id number] [address] [place] Lymphocytes/100 WBC (Bld) 23.9 % Normal [facility] Comment on above: Order Comment: Speci men Type: BLOOD SPECIMENOrdering Facility: [facility] Address: [address] [place] [address] Performed By: #### 5 7021-8 ####[facility] LABORATORYCLIA [id number] [address] OF [facility] MCH (RBC) [Entitic mass] 32.4 pg Normal 26.0-34.0 [facility] Comment on above: Order Comment: Speci men Type: BLOOD SPECIMENOrdering Facility: [facility] Address: [address] [place] [address] Performed By: #### 5 7021-8 ####[facility] LABORATORYCLIA [id number] [address] MCHC (RBC) [Mass/Vol] 33.0 g/dL Normal 30.5-36.0 [facility] Comment on above: Order Comment: Speci men Type: BLOOD SPECIMENOrdering Facility: [facility] Address: [address] [place] [address] Performed By: #### 5 7021-8 ####[facility] LABORATORYCLIA [id number] [address] [place] [facility] MCV (RBC) [Entitic vol] 98.1 fL Normal 80.0-100.0 [facility] Comment on above: Order Comment: Speci men Type: BLOOD SPECIMENOrdering Facility: [facility] Address: [address] [place] [address] Performed By: #### 5 7021-8 ####[facility] LABORATORYCLIA [id number] [address] Monocytes (Bld) [#/Vol] 0.61 10*3/uL Normal <0.87 [facility] Comment on above: Order Comment: Speci men Type: BLOOD SPECIMENOrdering Facility: [facility] Address: [address] [place] [address] Performed By: #### 5 7021-8 ####[facility]ORATORYCLIA [id number] [place] [address] [place] Monocytes/100 WBC (Bld) 9.3 % Normal [facility] Comment on above: Order Comment: Speci men Type: BLOOD SPECIMENOrdering Facility: [facility] Address: [address] [place] [address] Performed By: #### 5 7021-8 ####[facility]ORYCLIA [id number] [place] [address] [place] Neutrophils (Bld) [#/Vol] 3.90 10*3/uL Normal 1.45-7.50 [facility] Comment on above: Order Comment: Speci men Type: BLOOD SPECIMENOrdering Facility: [facility] Address: [address] [place] [address] Performed By: #### 5 7021-8 ####[facility]ORATORYCLIA [id number] [address] [place] Neutrophils/100 WBC (Bld) 59.2 % Normal [facility] Comment on above: Order Comment: Speci men Type: BLOOD SPECIMENOrdering Facility: [facility] Address: [address] [place] [address] Performed By: #### 5 7021-8 ####[facility]ATORYCLIA [id number] [place] [address] [place] Nucleated RBC (Bld) [#/Vol] 10*3/uL Normal <0.01 [facility] Comment on above: Order Comment: Speci men Type: BLOOD SPECIMENOrdering Facility: [facility] Address: [address] [place] [address] Performed By: #### 5 7021-8 ####[facility] LABORATORYCLIA [id number] [address] [place] Nucleated RBC/100 WBC (Bld) [Ratio] 0.0 /100 WBC Normal [facility] Comment on above: Order Comment: Speci men Type: BLOOD SPECIMENOrdering Facility: [facility] Address: [address] [place] [address] Performed By: #### 5 7021-8 ####[facility]ORATORYCLIA [id number] [address] [place] Platelet mean volume (Bld) [Entitic vol] 9.6 fL Normal 9.0-12.7 [facility] Comment on above: Order Comment: Speci men Type: BLOOD SPECIMENOrdering Facility: [facility] Address: [address] [place] [address] Performed By: #### 5 7021-8 ####[facility]ORATORYCLIA [id number] [address] [place] Platelets (Bld) [#/Vol] 219 10*3/uL Normal 150-400 [facility] Comment on above: Order Comment: Speci men Type: BLOOD SPECIMENOrdering Facility: [facility] Address: [address] [place] [address] Performed By: #### 5 7021-8 ####[facility] LABORATORYCLIA [id number] [address] [place] RBC (Bld) [#/Vol] 4.23 10*6/uL Normal 4.20-6.00 [facility] Comment on above: Order Comment: Speci men Type: BLOOD SPECIMENOrdering Facility: [facility] Address: [address] [place] [address] Performed By: #### 5 7021-8 ####[facility] LABORATORYCLIA [id number] [address] [place] WBC (Bld) [#/Vol] 6.58 10*3/uL Normal 3.70-11.00 [facility] Comment on above: Order Comment: Speci men Type: BLOOD SPECIMENOrdering Facility: [facility] Address: [address] [place] [address] Performed By: #### 5 7021-8 ####[facility] LABORATORYCLIA [id number] [address] [place] BRAIN WO IVCONon 09-15-20 CT BRAIN WO IVCON * * *Final Report* * * DATE OF EXAM: Sep 15 2024 3:53PM [facility] 0504 - CT BRAIN WO IVCON / PROCEDURE REASON: Head trauma, minor (Age >= 65y) * * * * Physician Interpretation * * * * EXAMINATION: CT BRAIN WO IVCON CLINICAL HISTORY: Altered mental status TECHNIQUE: Serial axial images without IV contrast were obtained from the vertex to the foramen magnum. MQ: CTBWO_3 CT Radiation dose: Integrated Dose-Length Product (DLP) for this visit = 1161 mGy*cm CT Dose Reduction Employed: Automated exposure control(AEC) and iterative recon COMPARISON: 07/28/2024 and 05/18/[address] RESULT: Localizer images: Post-operative change: None. Acute change: No evidence of an acute infarct or other acute parenchymal process. Hemorrhage: No evidence of acute intracranial hemorrhage. ECASS hemorrhagic transformation score: Not Applicable Mass Lesion / Mass Effect: There is no evidence of an intracranial mass or extraaxial fluid collection. No significant mass effect. Chronic change: Chronic left frontal cortical infarct. Chronic cerebellar lacunar infarcts. Parenchyma: There is no significant volume loss. No significant change in late subacute/early chronic large right MCA vascular territorial infarct. Ventricles: The ventricles are within normal limits of size and configuration for age. Paranasal sinuses and skull base: The visualized paranasal sinuses are grossly clear. The skull base and imaged soft tissues are unremarkable. IMPRESSION: No CT evidence of acute intracranial abnormalities. No significant change in late subacute/early chronic large right MCA vascular territorial infarct. Chronic left frontal cortical infarct. Chronic cerebellar lacunar infarcts. Inspector Tester Sorter: P[facility] Transcribe Date/Time: Sep 15 2024 3:56P Dictated by : SAEED ALONZO MD This examination was interpreted and the report reviewed and electronically signed by: SAEED ALONZO MD on Sep 15 2024 4:05PM EST [id number] Normal [facility] CT CERVICAL SPINE WO IVCONon 09-15-2024 CT CERVICAL SPINE WO IVCON * * *Final Report* * * DATE OF EXAM: Sep 15 2024 3:53PM [facility] 0505 - CT CERVICAL SPINE WO IVCON / PROCEDURE REASON: Neck trauma (Age >= 65y) * * * * Physician Interpretation * * * * EXAMINATION: CT CERVICAL SPINE WO IVCON CLINICAL HISTORY: Neck trauma (neck pain TECHNIQUE: Spiral, high resolution axial unenhanced images were obtained from the skull base to the cervicothoracic junction with sagittal and coronal planar reconstructions. MQ: CTCSPWO_5 CT Radiation dose: Integrated CT Dose-Length Product (DLP) for this visit = 1161 mGy*cm CT Dose Reduction Employed: Automated exposure control(AEC) and iterative recon COMPARISON: 07/28/2024 CT cervical RESULT: Counting reference: Craniocervical junction. Anatomic Variants: None. Entry Level Marketing Assistant (topogram) images: Right CCA/ICA vascular stent Alignment: Alignment is anatomic. Craniocervical junction: Craniocervical junction is normal. Osseous structures/fracture: No evidence of a lytic or blastic process in the visualized spine. No evidence of acute or chronic fracture. Cervical soft tissues: The paraspinal soft tissues are within normal limits. Degenerative changes: C4-5 moderate/severe degenerative right foraminal stenosis due to facet arthropathy. Moderate degree degenerative bilateral foraminal stenosis C5-6 level greater left side. IMPRESSION: 1. No CT evidence of acute traumatic osseous abnormality of the cervical spine. 2.Right CCA/ICA vascular stent 3.C4-5 moderate/severe degenerative right foraminal stenosis due to facet arthropathy. Moderate degree degenerative bilateral foraminal stenosis C5-6 level greater left side. Inspector Tester Sorter: [facility] Transcribe Date/Time: Sep 15 2024 4:06P Dictated by : SAEED ALONZO MD This examination was interpreted and the report reviewed and electronically signed by: SAEED ALONZO MD on Sep 15 2024 4:10PM EST [id number] Normal [facility] Comprehensive metabolic 2000 panelon 09-15-2024 Albumin [Mass/Vol] 3.9 g/dL Normal 3.9-4.9 [facility] Comment on above: Order Comment: Speci men Type: BLOOD SPECIMENOrdering Facility: [facility] Address: [address] [place] [address] Performed By: #### 2 4323-8 ####[facility] LABORATORYCLIA [id number] [place] [address] [place] ALP [Catalytic activity/Vol] 103 U/L Normal 38-113 [facility] Comment on above: Order Comment: Speci men Type: BLOOD SPECIMENOrdering Facility: [facility] Address: [address] [place] [address] Performed By: #### 2 4323-8 ####[facility] LABORATORYCLIA [id number] [address] STATES OF [facility] ALT With P-5'-P [Catalytic activity/Vol] 13 U/L Normal 10-54 [facility] Comment on above: Order Comment: Speci men Type: BLOOD SPECIMENOrdering Facility: [facility] Address: [address] [place] [address] Performed By: #### 2 4323-8 ####[facility]ORATORYCLIA [id number] [address] Anion gap [Moles/Vol] 9 mmol/L Normal 8-15 [facility] Comment on above: Order Comment: Speci men Type: BLOOD SPECIMENOrdering Facility: [facility] Address: [address] [place] [address] Performed By: #### 2 4323-8 ####[facility] LABORATORYCLIA [id number] [address] AST With P-5'-P [Catalytic activity/Vol] 15 U/L Normal 14-40 [facility] Comment on above: Order Comment: Speci men Type: BLOOD SPECIMENOrdering Facility: [facility] Address: [address] [place] [address] Performed By: #### 2 4323-8 ####[facility] LABORATORYCLIA [id number] [address] [place] Bilirubin [Mass/Vol] mg/dL Low 0.2-1.3 [facility] Comment on above: Order Comment: Speci men Type: BLOOD SPECIMENOrdering Facility: [facility] Address: [address] [place] [address] Performed By: #### 2 4323-8 ####[facility]ORATORYCLIA [id number] [address] Calcium [Mass/Vol] 9.0 mg/dL Normal 8.5-10.2 [facility] Comment on above: Order Comment: Speci men Type: BLOOD SPECIMENOrdering Facility: [facility] Address: [address] [place] [address] Performed By: #### 2 4323-8 ####[facility]ORATORYCLIA [id number] [place] [address] [place] Chloride [Moles/Vol] 106 mmol/L Normal 98-107 [facility] Comment on above: Order Comment: Speci men Type: BLOOD SPECIMENOrdering Facility: [facility] Address: [address] [place] [address] Performed By: #### 2 4323-8 ####[facility]ORATORYCLIA [id number] [address] [place] CO2 [Moles/Vol] 27 mmol/L Normal 22-30 [facility] Comment on above: Order Comment: Speci men Type: BLOOD SPECIMENOrdering Facility: [facility] Address: [address] [place] [address] Performed By: #### 2 4323-8 ####[facility]ORATORYCLIA [id number] [address] [place] Creatinine [Mass/Vol] 1.05 mg/dL Normal 0.73-1.22 [facility] Comment on above: Order Comment: Speci men Type: BLOOD SPECIMENOrdering Facility: [facility] Address: [address] [place] [address] Performed By: #### 2 4323-8 ####[facility]ORATORYCLIA [id number] [address] Creatinine and Glomerular filtration rate.predicted panel (S/P/Bld) 74 mL/min/1.73m??? Normal >=60 [facility] Comment on above: Order Comment: Speci men Type: BLOOD SPECIMENOrdering Facility: [facility] Address: [address] [place] [address] Result Comment: Bianca mated Glomerular Filtration Rate (eGFR) is calculated using the 2020 CKD-EPI creatinine equation. This equation utilizes serum creatinine, sex, and age as parameters. The creatinine assay has traceable calibration to isotope dilution-mass spectrometry. Refer to KDIGO guidelines for clinical interpretation. In patients with unstable renal function, e.g. those with acute kidney injury, the eGFR may not accurately reflect actual GFR. Performed By: #### 2 4323-8 ####[facility] LABORATORYCLIA [id number] [place] [address] [place] Glucose [Mass/Vol] 93 mg/dL Normal 74-99 [facility] Comment on above: Order Comment: Specmarine eller Type: BLOOD SPECIMENOrdering Facility: [facility] Address: [address] [place] [address] Result Comment: The [place] Diabetes [employer] (ADA) provides guidance for cutoff values for fasting glucose and random glucose. The ADA defines fasting as no caloric intake for at least 8 hours. Fasting plasma glucose results between 100 to 125 mg/dL indicate increased risk for diabetes (prediabetes). Fasting plasma glucose results greater than or equal to 126 mg/dL meet the criteria for diagnosis of diabetes. In the absence of unequivocal hyperglycemia, results should be confirmed by repeat testing. In a patient with classic symptoms of hyperglycemia or hyperglycemic crisis, random plasma glucose results greater than or equal to 200 mg/dL meet the criteria for diagnosis of diabetes. Reference: Standards of Medical Care in Diabetes 2016, [place] [employer] Association. Diabetes Care. 2016.39(Suppl 1). Performed By: #### 2 4323-8 ####[facility]ORATORYCLIA [id number] [place] [address] [place] Potassium [Moles/Vol] 4.2 mmol/L Normal 3.7-5.1 [facility] Comment on above: Order Comment: Lyndsey eller Type: BLOOD SPECIMENOrdering Facility: [facility] Address: [address] [id number] Performed By: #### 2 4323-8 ####[facility] LABORATORYCLIA [id number] [place] [address] [place] Protein [Mass/Vol] 6.3 g/dL Normal 6.3-8.0 [facility] Comment on above: Order Comment: Speci men Type: BLOOD SPECIMENOrdering Facility: [facility] Address: [address] [place] [address] Performed By: #### 2 4323-8 ####[facility]ORATORYCLIA [id number] [address] STATES OF [facility] Sodium [Moles/Vol] 142 mmol/L Normal 136-144 [facility] Comment on above: Order Comment: Speci men Type: BLOOD SPECIMENOrdering Facility: [facility] Address: [address] [place] [address] Performed By: #### 2 4323-8 ####[facility]ORATORYCLIA [id number] [address] STATES OF [facility] Urea nitrogen [Mass/Vol] 19 mg/dL Normal 9-24 [facility] Comment on above: Order Comment: Speci men Type: BLOOD SPECIMENOrdering Facility: [facility] Address: [address] [place] [address] Performed By: #### 2 4323-8 ####[facility]ORATORYCLIA [id number] [address] ED NOTEon 09-15-2024 ED NOTE HNO ID: [id number] Author: LARISSA FRAIRE RN Service: Emergency Medicine Author Type: Registered Nurse Type: ED Notes Filed: 09/15/2024 20:50 Note Text: Transport called. ETA 20-125 minutes. [facility] ED NOTE HNO ID: [id number] Author: GARY SHAH, JORGE Service: ? Author Type: Registered Nurse Type: ED Notes Filed: 09/15/2024 13:08 Note Text: Bed: 45-ED Expected date: Expected time: Means of arrival: Comments: Angry at [facility] ED PROV NOTEon 09-15-2024 ED PROV NOTE HNO ID: [id number] Author: BRUNA BAILEY MD Service: Emergency Medicine Author Type: Resident Type: ED Provider Notes Filed: 09/15/2024 21:05 Note Text: Attestation signed by Bruna Bailey MD at 09/15/2024 9:05 PM Signature: Bruna Bailey MD Date: 09/15/2024 Time: 9:05 PM ED CONTINUATION OF CARE NOTE Code Status: Prior Assumed care from: Roberth Jerome MD Presentation / Findings / Interventions / Plan / Items to Follow Up: Jonathon Perales is a 74-year-old male with a past medical history of dementia who presented to emergency department from the [facility] due to concerns for aggressive behavior. Patient was pink slipped prior to arrival due to his aggressive behavior. Laboratory work and imaging obtained to rule out infectious, metabolic, or other causes of worsening confusion. At the time of signout the patient's disposition is pending results from patient's laboratory work and imaging. Clinical Impressions as of 09/15/241944 Aggressive behavior due to dementia (HCC) Medical Decision Making CT imaging of the patient's brain and cervical spine did not show evidence of acute abnormalities. Chest x-ray pelvis x-ray did not demonstrate evidence of acute changes. Urine tox screen negative. Patient's urinalysis did not demonstrate evidence of UTI. Patient metabolic panel and CBC also within normal limits. At this time there is no indication to admit the patient to the hospital for further medical management. While in the emergency department patient was not aggressive with staff and was cooperative. Patient did exhibit behavior consistent with his baseline dementia. Patient's pink slip was revoked. These findings were discussed with the [facility], and they were agreeable to the patient returning to the facility. Patient was then discharged in stable condition from the emergency department. SIGNATURE: Cas Palomares DO PATIENT NAME: Jonathon Perales DATE: September 15, 2024 TIME: 7:45 PM PAGER/CONTACT #: CAS PALOMARES 09/15/242017 BRUNA BAILEY 09/15/242104 [facility] ED PROV NOTE HNO ID: [id number] Author: BANDAR AMADO MD Service: Emergency Medicine Author Type: Physician Type: ED Provider Notes Filed: 10/29/2024 23:39 Note Text: ED Provider Note Patient Name: Jonathon Perales : 1950 SERVICE DATE: 09/15/24 History Patient presents with: Aggressive Behavior: Presents to ED from [facility] with staff concern of aggressive behavior. Pt was pink slipped from SNF 2/2 hitting, punching, and being aggressive with staff. Staff reports pt is refusing meds, patient states staff doesn't offer them to him. 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 Denies any CP or SOB HPI 74-year-old male presents to the ED from [facility] with staff concern for aggressive behavior. Patient was pink slipped by the staff for hitting, punching, and verbal threats. Staff reports that the patient is refusing meds. Patient is alert and oriented x [address] Patient reports that he was laying on the ground and the staff was messing with him and he was trying to defend himself. He denies any chest pain, shortness of breath, abdominal pain, diarrhea, constipation, fevers, chills, sweats, or urinary complaints. Patient notes that he had a stroke 8 to 9 months ago and has left arm weakness as his only deficit. 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 03/25/2018 CAD (coronary artery disease) Cataract Cerebellar stroke (HCC) CKD (chronic kidney disease) CVA (cerebral vascular accident) (HCC) Depression ED (erectile dysfunction) Essential hypertension H/O aortic valve replacement Hiatal hernia 02/21/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 HTN (hypertension) Hyperlipemia Hyperlipidemia Kidney stone Leukocytosis 04/16/2024 LVH (left ventricular hypertrophy) MDD (major depressive disorder) Need for SBE (subacute bacterial endocarditis) prophylaxis Bioprothestic AoV JAIRO (obstructive sleep apnea) S/P AVR bioprosthetic S/P CABG (coronary artery bypass graft) SVG-OM1 Seasonal allergic rhinitis Stroke (HCC) TIA (transient ischemic attack) Tubular adenoma of colon 05/06/2002 Vitamin B12 deficiency Vitamin D deficiency PAST SURGICAL HISTORY Procedure Laterality Date CARDIAC CATH 01/2018 CORONARY ARTERY BYPASS GRAFT HX SVG-OM1 EGD WITH BIOPSY(S) 03/25/2018 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 Zazueta EGD WITH BIOPSY(S) 01/13/2013 Dr. 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 [place] F COLONOSCOPY WITH POLYPECTOMY 05/06/2002 tubular adenoma; chronic colitis; Dr. Garcia F COLONOSCOPY WITH POLYPECTOMY 12/08/2018 tubular adenoma; Dr. Zazueta SHX AORTIC VALVE REPLACEMENT Bioprosthetic valve FAMILY HISTORY Problem Relation Age of Onset Heart disease Mother Breast Cancer Mother other (back) Mother Heart disease Father Coronary Artery Disease Father Alcohol/Drug Father other (kidney) Father Breast Cancer Sister Hypertension Sister No Known Problems Sister Social History Tobacco Use Smoking status: Not on file Smokeless tobacco: Never Vaping Use Vaping status: Never Used Substance and Sexual Activity Alcohol use: No Drug use: No Sexual activity: Not on file ALLERGIES Allergen Reactions Percocet [Oxycodone* Mental Status Change HALLUCINATIONS Review of Systems Constitutional: Negative for activity change, chills, diaphoresis and fever. HENT: Negative for congestion, rhinorrhea and sore throat. Respiratory: Negative for chest tightness and shortness of breath. Cardiovascular: Negative for chest pain. Gastrointestinal: Negative for abdominal distention, abdominal pain, constipation, diarrhea, nausea and vomiting. Genitourinary: Negative for dysuria, frequency and urgency. Musculoskeletal: Negative for arthralgias, back pain, joint swelling, myalgias and neck pain. Neurological: Negative for dizziness, syncope, weakness and headaches. Physical Exam Vitals [09/15/24 1311] BP Pulse Temp Temp src Resp SpO2 Weight Height 117/77 64 36.7 ?C (98.1 ?F) Oral (!) 25 97 % 61.7 kg (136 lb) 1.651 m (5' 5") Physical Exam Vitals and nursing note reviewed. Constitutional: General: He is not in acute distress. Appearance: Normal appearance. He is normal weight. He is not ill-appearing. HENT: Head: Normocephalic and atraumatic. Mouth/Throat: Mouth: Mucous membranes are moist. Cardiovascular: Rate and Rhythm: Normal rate and regular rhythm. Pulses: Normal pulses. Heart sounds: Normal heart sounds. Pulmonary: Effort: Pulmonary effort is normal. Breath sounds: Normal breath sounds. Abdominal: General: Abdomen is flat. Bowel sounds are normal. There is no distension. Palpations: Abdomen is soft. Tenderness: There is no (more content not included)... [facility] Ethanol SerPl-mCncon 024 Ethanol [Mass/Vol] mg/dL Normal <11 [facility] Comment on above: Order Comment: Speci men Type: BLOOD SPECIMENOrdering Facility: [facility] Address: [address] [place] [address] Performed By: #### 5 643-2 ####[facility] LABORATORYCLIA [id number] [place] [address] [place] TOXICOLOGY SCREEN, ROUTINE U RINEon 09-15-2024 Amphetamines Confirm (U) [Mass/Vol] Negative Normal Negative [facility] Comment on above: Order Comment: Speci men Type: URINE SPECIMENOrdering Facility: [facility] Address: [address] [place] [address] Result Comment: Cuto ff threshold at 1000 ng/mL. Performed By: #### U TOX2 ####[facility]ATORYCLIA [id number] [place] [address] [place] BARBITURATES, URINE Negative Normal Negative [facility] Comment on above: Order Comment: Speci men Type: URINE SPECIMENOrdering Facility: [facility] Address: [address] [place] [address] Result Comment: Cuto ff threshold at 200 ng/mL. Performed By: #### U TOX2 ####[facility] LABORATORYCLIA [id number] [address] [place] BENZODIAZEPINES, UR Negative Normal Negative [facility] Comment on above: Order Comment: Speci men Type: URINE SPECIMENOrdering Facility: [facility] Address: [address] [place] [address] Result Comment: Cuto ff threshold at 200 ng/mL. Performed By: #### U TOX2 ####[facility] LABORATORYCLIA [id number] [address] [place] Cannabinoids Screen Ql (U) Negative Normal Negative [facility] Comment on above: Order Comment: Speci men Type: URINE SPECIMENOrdering Facility: [facility] Address: [address] [place] [address] Result Comment: Cuto ff threshold at 50 ng/mL. Performed By: #### U TOX2 ####[facility] LABORATORYCLIA [id number] [address] [place] Cocaine Ql (U) Negative Normal Negative [facility] Comment on above: Order Comment: Speci men Type: URINE SPECIMENOrdering Facility: [facility] Address: [address] [place] [address] Result Comment: Cuto ff threshold at 300 ng/mL. Performed By: #### U TOX2 ####[facility] LABORATORYCLIA [id number] [address] [place] Ethanol (U) [Mass/Vol] <11 Normal <11 [facility] Comment on above: Order Comment: Speci men Type: URINE SPECIMENOrdering Facility: [facility] Address: [address] [place] [address] Performed By: #### U TOX2 ####[facility]ORATORYCLIA [id number] [address] [place] Opiates Screen Ql (U) Negative Normal Negative [facility] Comment on above: Order Comment: Speci men Type: URINE SPECIMENOrdering Facility: [facility] Address: [address] [place] [address] Result Comment: Cuto ff threshold at 300 ng/mL. Performed By: #### U TOX2 ####[facility] LABORATORYCLIA [id number] [address] oxyCODONE cutoff Screen (U) [Mass/Vol] Negative Normal Negative [facility] Comment on above: Order Comment: Speci men Type: URINE SPECIMENOrdering Facility: [facility] Address: [address] [place] [address] Result Comment: Cuto ff threshold at 100 ng/mL. Performed By: #### U TOX2 ####[facility]ATORYCLIA [id number] [address] Phencyclidine Ql (U) Negative Normal Negative [facility] Comment on above: Order Comment: Speci men Type: URINE SPECIMENOrdering Facility: [facility] Address: [address] [place] [address] Result Comment: Cuto ff threshold at 25 ng/mL. Performed By: #### U TOX2 ####[facility]ATORYCLIA [id number] [address] Urinalysis complete panel (U )on 09-15-2024 Bilirubin Ql (U) Negative Normal Negative [facility] Comment on above: Order Comment: Speci men Type: URINE SPECIMENOrdering Facility: [facility] Address: [address] [place] [address] Performed By: #### 2 4356-8 ####[facility]ORATORYCLIA [id number] [address] Clarity (Unsp spec) Turbid Abnormal Clear [facility] Comment on above: Order Comment: Speci men Type: URINE SPECIMENOrdering Facility: [facility] Address: [address] [place] [address] Performed By: #### 2 4356-8 ####[facility]ORATORYCLIA [id number] [address] Color (U) Yellow Normal yellow [facility] Comment on above: Order Comment: Speci men Type: URINE SPECIMENOrdering Facility: [facility] Address: [address] [place] [address] Performed By: #### 2 4356-8 ####[facility]ORATORYCLIA [id number] [address] Epithelial cells LM.HPF (Urine sed) [#/Area] Few Abnormal None Seen [facility] Comment on above: Order Comment: Speci men Type: URINE SPECIMENOrdering Facility: [facility] Address: [address] [place] [address] Performed By: #### 2 4356-8 ####[facility]ORATORYCLIA [id number] [address] Glucose Test strip (U) [Mass/Vol] Negative Normal Trace, Negative [facility] Comment on above: Order Comment: Speci men Type: URINE SPECIMENOrdering Facility: [facility] Address: [address] [place] [address] Performed By: #### 2 4356-8 ####[facility]ORATORYCLIA [id number] [address] Hemoglobin Ql (U) Negative Normal Negative, Trace [facility] Comment on above: Order Comment: Speci men Type: URINE SPECIMENOrdering Facility: [facility] Address: [address] [place] [address] Performed By: #### 2 4356-8 ####[facility]ORATORYCLIA [id number] [address] Ketones Ql (U) Negative Normal Negative, Trace [facility] Comment on above: Order Comment: Speci men Type: URINE SPECIMENOrdering Facility: [facility] Address: [address] [place] [address] Performed By: #### 2 4356-8 ####[facility]ATORYCLIA [id number] [address] Leukocyte esterase Test strip Ql (U) Negative Normal Negative, 25 Garrick/uL [facility] Comment on above: Order Comment: Speci men Type: URINE SPECIMENOrdering Facility: [facility] Address: [address] [place] [address] Performed By: #### 2 4356-8 ####[facility]ORATORYCLIA [id number] [place] [address] [place] Nitrite Ql (U) Negative Normal Negative [facility] Comment on above: Order Comment: Speci men Type: URINE SPECIMENOrdering Facility: [facility] Address: [address] [place] [address] Performed By: #### 2 4356-8 ####[facility]ORATORYCLIA [id number] [address] [place] pH (U) 7.5 [pH] Normal 5.0-8.0 [facility] Comment on above: Order Comment: Speci men Type: URINE SPECIMENOrdering Facility: [facility] Address: [address] [place] [address] Performed By: #### 2 4356-8 ####[facility]ATORYCLIA [id number] [address] Protein (U) [Mass/Vol] Negative Normal Trace , Negative [facility] Comment on above: Order Comment: Speci men Type: URINE SPECIMENOrdering Facility: [facility] Address: [address] [place] [address] Performed By: #### 2 4356-8 ####[facility]ATORYCLIA [id number] [address] [place] RBC LM.HPF (Urine sed) [#/Area] 0-3 /HPF Normal 0-3 /HPF [facility] Comment on above: Order Comment: Speci men Type: URINE SPECIMENOrdering Facility: [facility] Address: [address] [place] [address] Performed By: #### 2 4356-8 ####[facility]ATORYCLIA [id number] [address] Specific gravity (U) [Rel density] 1.023 Normal 1.005-1.030 [facility] Comment on above: Order Comment: Speci men Type: URINE SPECIMENOrdering Facility: [facility] Address: [address] [place], [place] [id number] Performed By: #### 2 4356-8 ####[facility]ORATORYCLIA [id number] [address] Urobilinogen Ql (U) Normal Normal Normal [facility] Comment on above: Order Comment: Speci men Type: URINE SPECIMENOrdering Facility: [facility] Address: [address] [place] [address] Performed By: #### 2 4356-8 ####[facility]ATORYCLIA [id number] [address] WBC LM.HPF (Urine sed) [#/Area] 0-5 /HPF Normal 0-5 /HPF [facility] Comment on above: Order Comment: Speci men Type: URINE SPECIMENOrdering Facility: [facility] Address: [address] [place] [address] Performed By: #### 2 4356-8 ####[facility]ATORYCLIA [id number] [address] Yeast.budding LM.HPF (Urine sed) [#/Area] Moderate Abnormal None Seen [facility] Comment on above: Order Comment: Speci men Type: URINE SPECIMENOrdering Facility: [facility] Address: [address] [place] [address] Performed By: #### 2 4356-8 ####[facility]ORATORYCLIA [id number] [address] OF [facility] XR CHEST 1V FRONTALon 2023 XR CHEST 1V FRONTAL * * *Final Report* * * DATE OF EXAM: Sep 15 2024 2:07PM [id number] - XR CHEST 1V FRONTAL / PROCEDURE REASON: Other * * * * Physician Interpretation * * * * EXAMINATION: CHEST RADIOGRAPH (SINGLE VIEW AP OR PA) CLINICAL HISTORY: Other, fall pain MQ: XC1_5 Comparison: 07/28/2024 RESULT: Lines, tubes, and devices: None. Status post cardiovascular surgical changes Lungs and pleura: No consolidation. No lung mass. No pleural effusion. Elevated right hemidiaphragm. No pneumothorax Cardiomediastinal silhouette: Normal cardiomediastinal silhouette. Other: . No displaced rib fractures IMPRESSION: No acute radiographic abnormality. Inspector Tester Sorter: [facility] Transcribe Date/Time: Sep 15 2024 2:37P Dictated by : SAEED ALONZO MD This examination was interpreted and the report reviewed and electronically signed by: SAEED ALONZO MD on Sep 15 2024 2:43PM EST [id number] [facility] XR PELVIS 1V APon 09-15-2024 XR PELVIS 1V AP * * *Final Report* * * DATE OF EXAM: Sep 15 2024 2:07PM [id number] - XR PELVIS 1V AP / PROCEDURE REASON: Other * * * * Physician Interpretation * * * * XR PELVIS 1V AP HISTORY: 74 years old Clinical information: Other PT FELL AND PAIN TECHNIQUE: Images: XR PELVIS 1V AP Comparison: None. RESULT: Findings: No fractures or dislocations are seen. IMPRESSION: No acute osseous traumatic abnormality Inspector Tester Sorter: [facility] Transcribe Date/Time: Sep 15 2024 2:36P Dictated by : SAEED ALONZO MD This examination was interpreted and the report reviewed and electronically signed by: SAEED ALONZO MD on Sep 15 2024 2:37PM EST [id number] [facility] ED NOTEon 07-29-2024 ED NOTE HNO ID: [id number] Author: ERIC WALDEN RN Service: ? Author Type: Registered Nurse Type: ED Notes Filed: 07/29/2024 02:04 Note Text: Report called to nurse @[facility] ED PROV NOTEon 07-29-2024 ED PROV NOTE HNO ID: [id number] Author: KATIA BACA MD Service: Emergency Medicine Author Type: Resident Type: ED Provider Notes Filed: 08/03/2024 20:24 Note Text: Attestation signed by Katia Baca MD at 08/03/2024 8:24 PM Attending Note I evaluated the patient and personally participated in the serna components. I agree with the resident's findings and plan as documented and have discussed the case and management of the patient's care with the resident. Patient presents for evaluation as a trauma team. The patient is a level 3 trauma team. Patient had a mechanical slip and fall. CT head and neck were negative we repaired the laceration as well as did repairs behind the ear. Patient was discharged in stable condition. Critical Care I spent a total of 30 minutes of critical care time in the evaluation and management of this patient. This was necessary to treat or prevent deterioration of the following condition(s): Multiple trauma, which the patient had and/or has a high probability of suddenly developing. The patient received Trauma Team during the time that critical care was provided.I discussed the plan of care with the RESIDENT and agree with the findings documented. Critical care time excludes separately billed procedures. Katia Baca MD Signature: Katia Baca MD Date: 08/03/2024 Time: 8:23 PM ED Provider Note Patient Name: Jonathon Perales : 1950 SERVICE DATE: 07/28/24 History No chief complaint on file. This is a 74-year-old male who presents to the emergency department via EMS as a level 3 trauma following a fall. Patient on Plavix. Patient states that he was trying to get out of bed, felt his leg give out and he tripped and fell forward. Patient states he remembers entirety of event. Patient does have a laceration to the right eyebrow and posterior to the left ear. Patient denies any pain at this time. He denies headache fever cough shortness of breath chest pain nausea vomiting abdominal pain urinary symptoms diarrhea focal weakness. He is well-appearing in no acute distress upon my examination of him. 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 03/25/2018 CAD (coronary artery disease) Cataract Cerebellar stroke (HCC) CKD (chronic kidney disease) CVA (cerebral vascular accident) (HCC) Depression ED (erectile dysfunction) Essential hypertension H/O aortic valve replacement Hiatal hernia 02/21/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 HTN (hypertension) Hyperlipemia Hyperlipidemia Kidney stone Leukocytosis 04/16/2024 LVH (left ventricular hypertrophy) MDD (major depressive disorder) Need for SBE (subacute bacterial endocarditis) prophylaxis Bioprothestic AoV JAIRO (obstructive sleep apnea) S/P AVR bioprosthetic S/P CABG (coronary artery bypass graft) SVG-OM1 Seasonal allergic rhinitis Stroke (HCC) TIA (transient ischemic attack) Tubular adenoma of colon 05/06/2002 Vitamin B12 deficiency Vitamin D deficiency PAST SURGICAL HISTORY Procedure Laterality Date CARDIAC CATH 01/2018 CORONARY ARTERY BYPASS GRAFT HX SVG-OM1 EGD WITH BIOPSY(S) 03/25/2018 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 Zazueta EGD WITH BIOPSY(S) 01/13/2013 Dr. 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 Everett F COLONOSCOPY WITH POLYPECTOMY 05/06/2002 tubular adenoma; chronic colitis; Dr. Garcia F COLONOSCOPY WITH POLYPECTOMY 12/08/2018 tubular adenoma; Dr. Zazueta SHX AORTIC VALVE REPLACEMENT Bioprosthetic valve FAMILY HISTORY Problem Relation Age of Onset Heart disease Mother Breast Cancer Mother other (back) Mother Heart disease Father Coronary Artery Disease Father Alcohol/Drug Father other (kidney) Father Breast Cancer Sister Hypertension Sister No Known Problems Sister Social History Tobacco Use Smoking status: Not on file Smokeless tobacco: Never Vaping Use Vaping status: Never Used Substance and Sexual Activity Alcohol use: No Drug use: No Sexual activity: Not on file ALLERGIES Allergen Reactions Percocet [Oxycodone* Mental Status Change HALLUCINATIONS Review of Systems All other systems reviewed and are negative. Physical Exam Vitals BP Pulse Temp Temp src Resp SpO2 Weight Height 09/10/24 2041 09/10204007/28/24204007/28/24204007/28/24204307/28/242040 -- -- 132/90 65 36.5 ?C (97.7 ?F) Oral 23 98 % Physical Exam Constitutional: Appearance: Normal appearance. HENT: Head: Comments: 1 inch laceration above the right eyebrow Laceration behind the left ear Eyes: Extraocul (more content not included)... [facility] CT BRAIN WO IVCONon 07-28-20 CT BRAIN WO IVCON * * *Final Report* * * DATE OF EXAM: Jul 28 2024 9:03PM [facility] 0504 - CT BRAIN WO IVCON / PROCEDURE REASON: fall * * * * Physician Interpretation * * * * EXAMINATION: CT BRAIN WO IVCON, CT CERVICAL SPINE WO IVCON Clinical history provided by the ordering clinician via order question and clinical decision support entries: . fall. fall. . fall. . TECHNIQUE: Serial axial unenhanced images were obtained from the vertex to the foramen magnum. Spiral, high resolution axial unenhanced images were obtained from the skull base to the cervicothoracic junction with sagittal and coronal planar reconstructions. MQ: CTBCSWO_3 Dose-Length Product (DLP): 1217 mGy*cm. CT Dose Reduction Employed: Automated exposure control(AEC) and iterative recon COMPARISON: CT brain and cervical spine 05/18/2024 RESULT: BRAIN: Acute change: The previously seen right MCA territory infarct has continued to evolve as expected, now demonstrating progressive encephalomalacia and gliosis without hemorrhage or significant mass effect. No definite new/acute territorial infarct identified. Hemorrhage: No evidence of acute intracranial hemorrhage. Mass lesion / Mass effect: There is no evidence of an intracranial mass or extraaxial fluid collection. No significant mass effect. Chronic change: Scattered patchy foci of low attenuation are present within supratentorial white matter which is a nonspecific finding but likely represents mild microvascular ischemia. Multiple chronic infarcts redemonstrated. Parenchyma: There is mild generalized volume loss. The brain parenchyma is otherwise within normal limits for age. Ventricles: Ventricular enlargement concordant with the degree of parenchymal volume loss. Other: Scattered frothy secretions in the right frontal sinus and right sphenoid sinus. Right supraorbital scalp laceration. CERVICAL: Counting reference: Craniocervical junction. Anatomic Variants: Congenital nonfusion of the posterior C1 arch. Alignment: Unchanged slight anterolisthesis at C4-C5. Craniocervical junction: Craniocervical junction is normal. Osseous structures/fracture: No evidence of a lytic or blastic process in the visualized spine. No evidence of acute or chronic fracture. Cervical soft tissues: The paraspinal soft tissues planes are maintained. Right carotid stent noted. Degenerative changes: Mild multilevel degenerative changes, similar to prior. Lung apices: Imaged lung apices are clear of focal consolidation or mass. Entry Level Marketing Assistant (topogram) images: Noncontributory IMPRESSION: 1. Right supraorbital scalp laceration. 2. No evidence of acute intracranial abnormality. Expected maturation of the previously seen right MCA infarct without hemorrhage or significant mass effect. 3. No evidence of acute cervical spine fracture or traumatic subluxation. 4. Additional chronic findings as detailed. Anatomic Variant: None. Assume 7 cervical vertebrae with counting from the craniocervical junction. Inspector Tester Sorter: [facility] Transcribe Date/Time: Jul 28 2024 9:17P Dictated by : LILLI GUSTAFSON MD This examination was interpreted and the report reviewed and electronically signed by: LILLI GUSTAFSON MD on Jul 28 2024 9:34PM EST [id number] [facility] CT CERVICAL SPINE WO IVCONon 07-28-2024 CT CERVICAL SPINE WO IVCON * * *Final Report* * * DATE OF EXAM: Jul 28 2024 9:03PM [facility] 0505 - CT CERVICAL SPINE WO IVCON / PROCEDURE REASON: fall * * * * Physician Interpretation * * * * EXAMINATION: CT BRAIN WO IVCON, CT CERVICAL SPINE WO IVCON Clinical history provided by the ordering clinician via order question and clinical decision support entries: . fall. fall. . fall. . TECHNIQUE: Serial axial unenhanced images were obtained from the vertex to the foramen magnum. Spiral, high resolution axial unenhanced images were obtained from the skull base to the cervicothoracic junction with sagittal and coronal planar reconstructions. MQ: CTBCSWO_3 Dose-Length Product (DLP): 1217 mGy*cm. CT Dose Reduction Employed: Automated exposure control(AEC) and iterative recon COMPARISON: CT brain and cervical spine 05/18/2024 RESULT: BRAIN: Acute change: The previously seen right MCA territory infarct has continued to evolve as expected, now demonstrating progressive encephalomalacia and gliosis without hemorrhage or significant mass effect. No definite new/acute territorial infarct identified. Hemorrhage: No evidence of acute intracranial hemorrhage. Mass lesion / Mass effect: There is no evidence of an intracranial mass or extraaxial fluid collection. No significant mass effect. Chronic change: Scattered patchy foci of low attenuation are present within supratentorial white matter which is a nonspecific finding but likely represents mild microvascular ischemia. Multiple chronic infarcts redemonstrated. Parenchyma: There is mild generalized volume loss. The brain parenchyma is otherwise within normal limits for age. Ventricles: Ventricular enlargement concordant with the degree of parenchymal volume loss. Other: Scattered frothy secretions in the right frontal sinus and right sphenoid sinus. Right supraorbital scalp laceration. CERVICAL: Counting reference: Craniocervical junction. Anatomic Variants: Congenital nonfusion of the posterior C1 arch. Alignment: Unchanged slight anterolisthesis at C4-C5. Craniocervical junction: Craniocervical junction is normal. Osseous structures/fracture: No evidence of a lytic or blastic process in the visualized spine. No evidence of acute or chronic fracture. Cervical soft tissues: The paraspinal soft tissues planes are maintained. Right carotid stent noted. Degenerative changes: Mild multilevel degenerative changes, similar to prior. Lung apices: Imaged lung apices are clear of focal consolidation or mass. Entry Level Marketing Assistant (topogram) images: Noncontributory IMPRESSION: 1. Right supraorbital scalp laceration. 2. No evidence of acute intracranial abnormality. Expected maturation of the previously seen right MCA infarct without hemorrhage or significant mass effect. 3. No evidence of acute cervical spine fracture or traumatic subluxation. 4. Additional chronic findings as detailed. Anatomic Variant: None. Assume 7 cervical vertebrae with counting from the craniocervical junction. Inspector Tester Sorter: PSCB Transcribe Date/Time: Jul 28 2024 9:17P Dictated by : LILLI GUSTAFSON MD This examination was interpreted and the report reviewed and electronically signed by: LILLI GUSTAFSON MD on Jul 28 2024 9:34PM EST [id number] [facility] CT HIP WO IVCON LTon 024 CT HIP WO IVCON LT * * *Final Report* * * DATE OF EXAM: Jul 28 2024 9:07PM [facility] 0079 - CT HIP WO IVCON LT / PROCEDURE REASON: fall * * * * Physician Interpretation * * * * CT HIP WO IVCON LT HISTORY: fall TECHNIQUE: Non-contrast axial CT imaging of the ... was performed. was performed. Coronal and sagittal reconstructions were performed. Contrast: None. CT Radiation dose: Integrated Dose-length product (DLP) for this visit = 419 mGy*cm. CT Dose Reduction Employed: Automated exposure control(AEC) and iterative recon COMPARISON: None. RESULT: Bone: No acute fracture or destructive processes. Articulations: Mild degenerative changes of the left hip joint. Soft tissues: Unremarkable. Other findings: Colonic diverticulosis. Atherosclerotic arterial and aortic calcifications. Entry Level Marketing Assistant (topogram) images: No additional findings. IMPRESSION: No acute bone abnormality. Inspector Tester Sorter: MILTON Transcribe Date/Time: Jul 28 2024 10:15P Dictated by : ROSE HUGHES MD This examination was interpreted and the report reviewed and electronically signed by: ROSE HUGHES MD on Jul 28 2024 10:19PM EST [id number] [facility] ED NOTEon 07-28-2024 ED NOTE HNO ID: [id number] Author: MIRIAN BLACK RN Service: Emergency Medicine Author Type: Registered Nurse Type: ED Notes Filed: 07/28/2024 21:18 Note Text: Report given to Will RN [facility] ED NOTE HNO ID: [id number] Author: MIRIAN BLACK RN Service: Emergency Medicine Author Type: Registered Nurse Type: ED Notes Filed: 07/28/2024 21:11 Note Text: Patient to room 33 [facility] ED NOTE HNO ID: [id number] Author: BRUNA JIN RN Service: ? Author Type: Registered Nurse Type: ED Notes Filed: 07/28/2024 21:06 Note Text: Bed: [facility] Expected date: Expected time: Means of arrival: Comments: T3 after scans [facility] ED NOTE HNO ID: [id number] Author: MIRIAN BLACK RN Service: Emergency Medicine Author Type: Registered Nurse Type: ED Notes Filed: 07/28/2024 21:03 Note Text: To [facility] ED NOTE HNO ID: [id number] Author: KEVEN DE LA TORRE HUC Service: Emergency Medicine Author Type: Health Sales Process Manager Type: ED Notes Filed: 07/28/2024 20:42 Note Text: Level 3 Trauma called at 2019 [facility] ED NOTE HNO ID: [id number] Author: MIRIAN BLACK RN Service: Emergency Medicine Author Type: Registered Nurse Type: ED Notes Filed: 07/28/2024 21:04 Note Text: Resident Jannet Gayle Attending Amor Valverde RN x3 Present at bedside [facility] EKGon 07-28-2024 Electrocardiogram Ventricular Rate : 5 8 BPM Atrial Rate : 58 BPM P-R Interval : 148 ms QRS Duration : 72 ms Q-T Interval : 424 ms QTC Calculation(Bazett) : 416 ms Calculated P [place] : 62 degrees Calculated R [place] : 71 degrees Calculated T [place] : 85 degrees POOR DATA QUALITY, INTERPRETATION MAY BE ADVERSELY AFFECTED SINUS BRADYCARDIA WITH PREMATURE ATRIAL COMPLEXES SEPTAL INFARCT , AGE UNDETERMINED ABNORMAL ECG WHEN COMPARED WITH ECG OF 18-May-2024 18:18, SEPTAL INFARCT IS NOW PRESENT Confirmed by JOY PAULSON MD ([id number]) on 05/02/2025 12:11:22 AM NAME : JONATHON PERALES PID : [id number] : 1950 Gender : Male Race : ORD : Procedure Date : Jul 28 2024 21:15:41 Edit Date : May 02 2025 00:11:23 Diagnosis: POOR DATA QUALITY, INTERPRETATION MAY BE ADVERSELY AFFECTED SINUS BRADYCARDIA WITH PREMATURE ATRIAL COMPLEXES SEPTAL INFARCT , AGE UNDETERMINED ABNORMAL ECG WHEN COMPARED WITH ECG OF 18-May-2024 18:18, SEPTAL INFARCT IS NOW PRESENT Confirmed by JOY PAULSON MD ([id number]) on 05/02/2025 12:11:22 AM Test Reason : Location : 4 : [facility] EM Overread By : JOY PAULSON MD Edited By : JOY PAULSON MD Referred By : , Acquired by : LITO NAYAK [facility] XR CHEST 1V FRONTALon 2023 XR CHEST 1V FRONTAL * * *Final Report* * * DATE OF EXAM: Jul 28 2024 9:33PM AKX [id number] - XR CHEST 1V FRONTAL / PROCEDURE REASON: Other * * * * Physician Interpretation * * * * EXAMINATION: CHEST RADIOGRAPH (SINGLE VIEW AP OR PA) CLINICAL HISTORY: Other, fall MQ: XC1_5 Comparison: 05/19/2024 RESULT: Lines, tubes, and devices: None. Lungs and pleura: No consolidation. No lung mass. No pleural effusion. There is chronic elevation the right hemidiaphragm. Cardiomediastinal silhouette: Stable cardiomediastinal silhouette. Other: No acute osseous abnormalities are identified. IMPRESSION: No acute radiographic abnormality. Inspector Tester Sorter: PSCB Transcribe Date/Time: Jul 28 2024 10:25P Dictated by : ERYN MCINTYRE MD This examination was interpreted and the report reviewed and electronically signed by: ERYN MCINTYRE MD on Jul 28 2024 10:26PM EST [id number] [facility] 07-14-2024 [facility] Telephone (AKPRAD) JONATHON PERALES ([id number]) 1950 M [facility] Date Time Provider Department 07/14/24 ZE STOCK During your visit today, we recorded the following information about you: Daiana Blas RN 07/14/2024 11:21 AM Signed MODIFIED STAN SCORE POST-DISCHARGE Telephone Visit Patient Name: Jonathon Perales Today's date: July 14, 2024 Date of discharge: April 30, 2024 Person giving information: Lindsay Perales. Relationship to patient: daughter. Contact information: [phone] Contact attempt: #1 Patient discharge location: Rehab Patient current location: SNF Presentation to ED or readmission after discharge: Yes. Reason- fall. ED visit for increasing needs of care. Modified [place] Score: 90 days post discharge: 4 = Mod-Severe disability. Unable to walk w/o assistance. Needs assistance for bodily needs. Mortality: No Daughter states that patient is in SNF at this time. He is able to feed self but requires assistance with other tasks. Still with left-sided weakness. Has cognitive changes since stroke as well. Signature: Daiana Blas RN July 14, 2024 11:17 AM Allergies As of Date: 07/14/2024 Noted Allergy Reaction PERCOCET (OXYCODONE-ACETAMINOPH EN)02/24/2018 1 - Mental Status Change Comments: HALLUCINATIONS Date Reviewed: 06/25/2024 Reviewed by: Bharati Michelle RN - Fully Assessed Reason for Visit: Modified [place] Score [Other] Prescriptions as of 07/14/2024 - carbidopa-levodopa (SINEMET 25-100) 25-100 mg per tablet take one tablet by mouth three times a day - loratadine (CLARITIN) 10 mg tablet Take 1 tablet by mouth every afternoon. - clopidogrel (PLAVIX) 75 mg tablet take one tablet by mouth every day - metoprolol tartrate, short acting, (LOPRESSOR) 25 mg tablet - venlafaxine (EFFEXOR) 75 mg tablet Take 1 tablet by mouth three times a day. - gabapentin (NEURONTIN) 100 mg capsule Take 1 capsule by mouth every 12 hours for 1 day. - melatonin 3 mg tablet Take 1 tablet by mouth at bedtime as needed for insomnia. - senna-docusate (SENNA-S) 8.6-50 mg per tablet Take 1 tablet by mouth two times a day. - aspirin, enteric coated (ASPIRIN, ENTERIC COATED) 81 mg EC tablet Take 81 mg by mouth once daily. - meclizine (ANTIVERT) 25 mg tab TAKE ONE TABLET BY MOUTH EVERY 6 HOURS NEEDED FOR DIZZINESS - pantoprazole DR (PROTONIX) 40 mg tablet Take 1 tablet by mouth once daily. - atorvastatin (LIPITOR) 80 mg tablet Take 1 tablet by mouth daily at bedtime. - acetaminophen (TYLENOL) 325 mg tablet Take 2 tablets by mouth every 6 hours as needed. Problem List As Of Date 07/14/2024 Noted Resolved Coronary artery disease involving little traverse reyna*12/18/2016 S/P AVR (aortic valve replacement) [Z95.2] 12/18/2016 Kidney stone [N20.0] 01/11/2017 Hematuria [R31.9] 01/11/2017 High cholesterol [E78.00] 01/11/2017 HTN (hypertension), benign [I10] 01/11/2017 02/12/2018 Closed stable burst fracture of eighth thoracic*01/11/2017 Lumbar compression fracture (HCC) [S32.000A] 01/11/2017 Vitamin D deficiency [E55.9] Vitamin B12 deficiency [E53.8] Seasonal allergic rhinitis [J30.2] HTN (hypertension) [I10] Recurrent major depressive disorder, in full re* CVA (cerebral vascular accident) (HCC) [I63.9] Cerebellar stroke (HCC) [I63.9] CAD (coronary artery disease) [I25.10] JAIRO (obstructive sleep apnea) [G47.33] LVH (left ventricular hypertrophy) [I51.7] Hyperlipidemia [E78.5] 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] 08/11/2018 CKD (chronic kidney disease) stage 2, GFR 60-89*09/25/2019 Intractable vomiting with nausea [R11.2] 07/26/2020 08/03/2020 Chronic abdominal pain [R10.9, G89.29] 07/26/2020 Intractable nausea and vomiting [R11.2] 07/26/2020 Lumbar radiculopathy [M54.16] 09/07/2020 Closed wedge compression fracture of T7 vertebr*01/05/2021 PAD (peripheral artery disease) (HCC) [I73.9] 03/23/2021 Left leg claudication (HCC) [I73.9] 03/23/2021 Open nondisplaced fracture of distal phalanx of*05/03/2021 Displaced fracture of distal phalanx of left in*05/03/2021 Displaced fracture of distal phalanx of left in*05/10/2021 Anxiety with depression [F41.8] 09/14/2022 Left-sided weakness [R53.1] 01/19/2023 Nicotine use disorder, F17.2 [F17.200] 01/20/2023 Carotid stenosis, right [I65.21] 01/21/2023 Suspected cerebrovascular accident (CVA) [R09.8*02/23/2023 Moderate episode of recurrent major depressive *09/19/2023 Stage 3a chronic kidney disease (HCC) [N18.31] 09/19/2023 Acute ischemic right MCA stroke (HCC) [I63.511] 04/16/2024 On mechanically assisted ventilation (HCC) [Z99*04/16/2024 Left hemiplegia (HCC) [G81.94] 04/16/2024 Facial droop due to acut (more content not included)... [facility] CNCOon 07-02-2024 CNCO Letter Text [facility] CNPNon 07-02-2024 CNPN Telephone (AGGPCF) JONATHON PERALES ([id number]) 1950 M T Date Time Provider Department 07/02/24 [facility] During your visit today, we recorded the following information about you: Alberto Guillen Ma, MA 07/02/2024 10:02 AM Signed Called patient to notify Gary is leaving the practice so we will need to reschedule their appt. Appt cancelled. Message relayed to patients daughter Lindsay . Alberto Guillen MA Allergies As of Date: 07/02/2024 Noted Allergy Reaction PERCOCET (OXYCODONE-ACETAMINOPH EN)02/24/2018 1 - Mental Status Change Comments: HALLUCINATIONS Date Reviewed: 06/25/2024 Reviewed by: Bharati Michelle, JORGE - Fully Assessed Prescriptions as of 07/02/2024 - carbidopa-levodopa (SINEMET 25-100) 25-100 mg per tablet take one tablet by mouth three times a day - loratadine (CLARITIN) 10 mg tablet Take 1 tablet by mouth every afternoon. - clopidogrel (PLAVIX) 75 mg tablet take one tablet by mouth every day - metoprolol tartrate, short acting, (LOPRESSOR) 25 mg tablet - venlafaxine (EFFEXOR) 75 mg tablet Take 1 tablet by mouth three times a day. - gabapentin (NEURONTIN) 100 mg capsule Take 1 capsule by mouth every 12 hours for 1 day. - melatonin 3 mg tablet Take 1 tablet by mouth at bedtime as needed for insomnia. - senna-docusate (SENNA-S) 8.6-50 mg per tablet Take 1 tablet by mouth two times a day. - aspirin, enteric coated (ASPIRIN, ENTERIC COATED) 81 mg EC tablet Take 81 mg by mouth once daily. - meclizine (ANTIVERT) 25 mg tab TAKE ONE TABLET BY MOUTH EVERY 6 HOURS NEEDED FOR DIZZINESS - pantoprazole DR (PROTONIX) 40 mg tablet Take 1 tablet by mouth once daily. - atorvastatin (LIPITOR) 80 mg tablet Take 1 tablet by mouth daily at bedtime. - acetaminophen (TYLENOL) 325 mg tablet Take 2 tablets by mouth every 6 hours as needed. Problem List As Of Date 07/02/2024 Noted Resolved Coronary artery disease involving little traverse reyna*12/18/2016 S/P AVR (aortic valve replacement) [Z95.2] 12/18/2016 Kidney stone [N20.0] 01/11/2017 Hematuria [R31.9] 01/11/2017 High cholesterol [E78.00] 01/11/2017 HTN (hypertension), benign [I10] 01/11/2017 02/12/2018 Closed stable burst fracture of eighth thoracic*01/11/2017 Lumbar compression fracture (HCC) [S32.000A] 01/11/2017 Vitamin D deficiency [E55.9] Vitamin B12 deficiency [E53.8] Seasonal allergic rhinitis [J30.2] HTN (hypertension) [I10] Recurrent major depressive disorder, in full re* CVA (cerebral vascular accident) (HCC) [I63.9] Cerebellar stroke (HCC) [I63.9] CAD (coronary artery disease) [I25.10] JAIRO (obstructive sleep apnea) [G47.33] LVH (left ventricular hypertrophy) [I51.7] Hyperlipidemia [E78.5] 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] 08/11/2018 CKD (chronic kidney disease) stage 2, GFR 60-89*09/25/2019 Intractable vomiting with nausea [R11.2] 07/26/2020 08/03/2020 Chronic abdominal pain [R10.9, G89.29] 07/26/2020 Intractable nausea and vomiting [R11.2] 07/26/2020 Lumbar radiculopathy [M54.16] 09/07/2020 Closed wedge compression fracture of T7 vertebr*01/05/2021 PAD (peripheral artery disease) ([facility]) [I73.9] 03/23/2021 Left leg claudication ([facility]) [I73.9] 03/23/2021 Open nondisplaced fracture of distal phalanx of*05/03/2021 Displaced fracture of distal phalanx of left in*05/03/2021 Displaced fracture of distal phalanx of left in*05/10/2021 Anxiety with depression [F41.8] 09/14/2022 Left-sided weakness [R53.1] 01/19/2023 Nicotine use disorder, F17.2 [F17.200] 01/20/2023 Carotid stenosis, right [I65.21] 01/21/2023 Suspected cerebrovascular accident (CVA) [R09.8*02/23/2023 Moderate episode of recurrent major depressive *09/19/2023 Stage 3a chronic kidney disease (HCC) [N18.31] 09/19/2023 Acute ischemic right MCA stroke ([facility]) [I63.511] 04/16/2024 On mechanically assisted ventilation ([facility]) [Z99*04/16/2024 Left hemiplegia ([facility]) [G81.94] 04/16/2024 Facial droop due to acute cerebrovascular accid*04/16/2024 Aphasia [R47.01] 04/16/2024 Primary hypertension [I10] 04/16/2024 Mixed hyperlipidemia [E78.2] 04/16/2024 History of aortic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 skin Your temperature is greater than 101F Follow Up Appointments Follow-Up Appointment When: In 4 weeks Patient/Par (more content not included)... Normal [facility] Basic metabolic 2000 panelon 05-19-2024 Anion gap [Moles/Vol] 12 mmol/L Normal 8-15 [facility] Comment on above: Order Comment: Speci men Type: BLOOD SPECIMENOrdering Facility: [facility] Address: [address] [place] [address] Performed By: #### K 1, 23010-5 ####[facility] LABORATORYCLIA [id number] [place] [address] [place] Calcium [Mass/Vol] 8.4 mg/dL Low 8.5-10.2 [facility] Comment on above: Order Comment: Speci men Type: BLOOD SPECIMENOrdering Facility: [facility] Address: [address] [place] [address] Performed By: #### K 1, 87151-7 ####[facility] LABORATORYCLIA [id number] [place] [address] [place] Chloride [Moles/Vol] 108 mmol/L High 98-107 [facility] Comment on above: Order Comment: Speci men Type: BLOOD SPECIMENOrdering Facility: [facility] Address: [address] [place] [address] Performed By: #### K 1, 26490-1 ####[facility] LABORATORYCLIA [id number] [place] [address] [place] CO2 [Moles/Vol] 20 mmol/L Low 22-30 [facility] Comment on above: Order Comment: Speci men Type: BLOOD SPECIMENOrdering Facility: [facility] Address: [address] [place] [address] Performed By: #### K 1, 55565-0 ####[facility]ORATORYCLIA [id number] [address] [place] Creatinine [Mass/Vol] 1.06 mg/dL Normal 0.73-1.22 [facility] Comment on above: Order Comment: Lyndsey eller Type: BLOOD SPECIMENOrdering Facility: [facility] Address: [address] [place] [address] Performed By: #### K 1, 11609-5 ####[facility]ORATORYCLIA [id number] [address] Creatinine and Glomerular filtration rate.predicted panel (S/P/Bld) 73 mL/min/1.73m??? Normal >=60 [facility] Comment on above: Order Comment: Lyndsey eller Type: BLOOD SPECIMENOrdering Facility: [facility] Address: [address] [place] [address] Result Comment: Bianca mated Glomerular Filtration Rate (eGFR) is calculated using the 2020 CKD-EPI creatinine equation. This equation utilizes serum creatinine, sex, and age as parameters. The creatinine assay has traceable calibration to isotope dilution-mass spectrometry. Refer to KDIGO guidelines for clinical interpretation. In patients with unstable renal function, e.g. those with acute kidney injury, the eGFR may not accurately reflect actual GFR. Performed By: #### K 1, 73693-9 ####[facility] LABORATORYCLIA [id number] [address] [place] Glucose [Mass/Vol] 74 mg/dL Normal 74-99 [facility] Comment on above: Order Comment: Lyndsey eller Type: BLOOD SPECIMENOrdering Facility: [facility] Address: [address] [place] [address] Result Comment: The [place] Diabetes Association (ADA) provides guidance for cutoff values for fasting glucose and random glucose. The ADA defines fasting as no caloric intake for at least 8 hours. Fasting plasma glucose results between 100 to 125 mg/dL indicate increased risk for diabetes (prediabetes). Fasting plasma glucose results greater than or equal to 126 mg/dL meet the criteria for diagnosis of diabetes. In the absence of unequivocal hyperglycemia, results should be confirmed by repeat testing. In a patient with classic symptoms of hyperglycemia or hyperglycemic crisis, random plasma glucose results greater than or equal to 200 mg/dL meet the criteria for diagnosis of diabetes. Reference: Standards of Medical Care in Diabetes 2016, [place] [employer] Association. Diabetes Care. 2016.39(Suppl 1). Performed By: #### K 1, 87463-5 ####[facility] LABORATORYCLIA [id number] [place] [id number] [place] Sodium [Moles/Vol] 140 mmol/L Normal 136-144 [facility] Comment on above: Order Comment: Speci men Type: BLOOD SPECIMENOrdering Facility: [facility] Address: [address] [place] [address] Performed By: #### K 1, 07308-7 ####[facility]ORATORYCLIA [id number] [address] [place] [facility] Urea nitrogen [Mass/Vol] 17 mg/dL Normal 9-24 [facility] Comment on above: Order Comment: Speci men Type: BLOOD SPECIMENOrdering Facility: [facility] Address: [address] [place] [address] Performed By: #### K , 95777-0 ####[facility]ORATORYCLIA [id number] [address] [place] CBC panel Auto (Bld)on 05-19 Erythrocyte distribution width (RBC) [Ratio] 13.4 % Normal 11.5-15.0 [facility] Comment on above: Order Comment: Speci men Type: BLOOD SPECIMENOrdering Facility: [facility] Address: [address] [place] [address] Performed By: #### 5 8410-2 ####[facility]ORATORYCLIA [id number] [address] [place] [facility] Hematocrit (Bld) [Volume fraction] 32.6 % Low 39.0-51.0 [facility] Comment on above: Order Comment: Speci men Type: BLOOD SPECIMENOrdering Facility: [facility] Address: [address] [place] [address] Performed By: #### 5 8410-2 ####[facility]ORATORYCLIA [id number] [address] [place] Hemoglobin (Bld) [Mass/Vol] 10.6 g/dL Low 13.0-17.0 [facility] Comment on above: Order Comment: Speci men Type: BLOOD SPECIMENOrdering Facility: [facility] Address: [address] [place] [address] Performed By: #### 5 8410-2 ####[facility]ATORYCLIA [id number] [address] MCH (RBC) [Entitic mass] 34.9 pg High 26.0-34.0 [facility] Comment on above: Order Comment: Speci men Type: BLOOD SPECIMENOrdering Facility: [facility] Address: [address] [place] [address] Performed By: #### 5 8410-2 ####[facility] LABORATORYCLIA [id number] [address] MCHC (RBC) [Mass/Vol] 32.5 g/dL Normal 30.5-36.0 [facility] Comment on above: Order Comment: Speci men Type: BLOOD SPECIMENOrdering Facility: [facility] Address: [address] [place] [address] Performed By: #### 5 8410-2 ####[facility]ATORYCLIA [id number] [address] MCV (RBC) [Entitic vol] 107.2 fL High 80.0-100.0 [facility] Comment on above: Order Comment: Speci men Type: BLOOD SPECIMENOrdering Facility: [facility] Address: [address] [place] [address] Performed By: #### 5 8410-2 ####[facility]ATORYCLIA [id number] [address] Nucleated RBC (Bld) [#/Vol] 10*3/uL Normal <0.01 [facility] Comment on above: Order Comment: Speci men Type: BLOOD SPECIMENOrdering Facility: [facility] Address: [address] [place] [address] Performed By: #### 5 8410-2 ####[facility]ATORYCLIA [id number] [address] [place] Platelet mean volume (Bld) [Entitic vol] 9.9 fL Normal 9.0-12.7 [facility] Comment on above: Order Comment: Speci men Type: BLOOD SPECIMENOrdering Facility: [facility] Address: [address] [place] [address] Performed By: #### 5 8410-2 ####[facility]ATORYCLIA [id number] [address] [place] Platelets (Bld) [#/Vol] 282 10*3/uL Normal 150-400 [facility] Comment on above: Order Comment: Speci men Type: BLOOD SPECIMENOrdering Facility: [facility] Address: [address] [place] [address] Performed By: #### 5 8410-2 ####[facility]ATORYCLIA [id number] [address] [place] RBC (Bld) [#/Vol] 3.04 10*6/uL Low 4.20-6.00 [facility] Comment on above: Order Comment: Speci men Type: BLOOD SPECIMENOrdering Facility: [facility] Address: [address] [place] [address] Performed By: #### 5 8410-2 ####[facility]ORATORYCLIA [id number] [place] [address] [place] WBC (Bld) [#/Vol] 5.43 10*3/uL Normal 3.70-11.00 [facility] Comment on above: Order Comment: Speci men Type: BLOOD SPECIMENOrdering Facility: [facility] Address: [address] [place] [address] Performed By: #### 5 8410-2 ####[facility]ORATORYCLIA [id number] [address] [place] CONSULTon 05-19-2024 CONSULT HNO ID: [id number] Author: DORON KING PA Service: Geriatrics Author Type: Physician Telesales Manager Type: Consults Filed: 05/19/2024 13:00 Note Text: GERIATRIC MEDICINE CONSULT NOTE SERVICE DATE: 05/19/2024 SERVICE TIME: 9:00 AM [id number]-* REASON FOR CONSULT: gsv, 74 y/o male s/p recent stroke" REQUESTING PROVIDER: Giorgio La PA-C HISTORY OF PRESENT ILLNESS: Jonathon Perales is a 74 year old male with a past medical history of HTN, aortic stenosis, CAD, CVA, JAIRO, CKD 3a, anxiety, depression, Parkinson's disease, dementia, and delirium who was admitted on 05/18 for multiple rib fractures. Patient was recently hospitalized for stroke, was discharged to [facility] for rehab, later transferred to [facility] SNF. Slipped and fell, was noted to have facial droop, L sided weakness and difficulty speaking by EMS, Telestroke evaluation, was brought to [facility] as a trauma level 2. Imaging revealed acute nondisplaced anterior left 6th, displaced anterior left 7th at the chondral region, and subacute left anterior 8th-10th rib fractures. Was admitted under trauma to [facility]. Medicine consulted for medical management. Neuro stroke consulted for worsening prior stroke symptoms, following. Determined to be HIGH RISK for delirium with DEAR assessment. Negative BCAMs noted. Patient is awake in the hospital bed, pleasant and cooperative, blinds open. Able to state name, age, , place, month,and why he is at the hospital and hospital course. Incorrect year (2025). States his mind is working slow, denies hallucinations. Endorses weakness and fatigue. Denies chest pain, palpitations, cough, shortness of breath, abdominal pain, nausea, dizziness, headaches. Slept well per RN, voiding without difficulty, no BM, evaluated by speech for dysphagia, diet modified. Information was obtained from patient's daughter Lindsay. Patient previously lived with daughter and was independent prior to stroke. History of mild dementia, has noticed some more forgetfulness or confusion after recent stroke. Patient has been AANDO X2-3 since stroke. Was not at [facility] to really see if his mentation was getting better or not. Endorses vision impairment, wears glasses. Denies CHILKOOT. Now living at [facility], spouse is there so they are able to spend a lot of time together. Daughter denies any safety concerns at [facility], states her mom is getting really good care and would like to keep her parents together. Assistance with B-ADLs and dependent in I-ADLs now. Endorses one other fall this year but denies injury or seeking medical attention. Now uses a walker with assistance while ambulating. L leg is very weak and will give out. Reviewed hospitalizations. Dysphagia after stroke, diet modified by speech. Endorses weight loss, nutrition consulted. Endorses history of depression but has been stable, denies anxiety or difficulty with sleep. Denies tobacco, alcohol, or illicit drug use. Subjective DNR/CODE STATUS: Full code Advance Directives: --> daughter to provide paperwork Living Will? Not in chart HCPOA? Not in chart Decision Maker? Consensus of two children, Lindsay to provide HCPOA paperwork. Spouse is still living but resident at [facility] and had craniotomy. PCP: Daughter would like patient to follow up with provider at facility. Past Medical History: 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 03/25/2018 CAD (coronary artery disease) Cataract Cerebellar stroke (HCC) CKD (chronic kidney disease) CVA (cerebral vascular accident) (HCC) Depression ED (erectile dysfunction) Essential hypertension H/O aortic valve replacement Hiatal hernia 02/21/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 HTN (hypertension) Hyperlipemia Hyperlipidemia Kidney stone Leukocytosis 04/16/2024 LVH (left ventricular hypertrophy) MDD (major depressive disorder) Need for SBE (subacute bacterial endocarditis) prophylaxis Bioprothestic AoV JAIRO (obstructive sleep apnea) S/P AVR bioprosthetic S/P CABG (coronary artery bypass graft) SVG-OM1 Seasonal allergic rhinitis Stroke (HCC) TIA (transient ischemic attack) Tubular adenoma of colon 05/06/2002 Vitamin B12 deficiency Vitamin D deficiency Past Surgical History: PAST SURGICAL HISTORY Procedure Laterality Date CARDIAC CATH 01/2018 CORONARY ARTERY BYPASS GRAFT HX SVG-OM1 EGD WITH BIOPSY(S) 03/25/2018 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 Zazueta EGD WITH BIOPSY(S) 01/13/2013 Dr. 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 Marguerite Garcia COLONOSCOPY WITH POLYPECTOMY 05/06/2002 tubular adenoma; chronic colitis; Dr. Jose Garcia COLONOSCOPY WITH POLYPECTOMY 12/08/2018 tubular roxanna (more content not included)... [facility] NURSING PROGon 05-19-2024 NURSING PROG HNO ID: [id number] Author: VELIA GROSS RN Service: ? Author Type: Registered Nurse Type: Nursing Progress Note Filed: 05/19/2024 14:39 Note Text: CASE MANAGEMENT HOME OXYGEN EVALUATION SERVICE DATE: 05/19/2024 Patient Location: [place] [address] [address] 7-* SERVICE TIME: 1400 Assessment: Patient's SPO2 on room air at rest is 86%. Heart rate 111. Patient's SPO2 on room air with exercise is 74%. Heart rate 167. Patient's SPO2 on 5 L/min O2 with exercise is 93%. Heart rate 152. SIGNATURE: Velia Gross RN PATIENT NAME: Jonathon Perales DATE: May 19, 2024 TIME: 2:36 PM PAGER/CONTACT #: [facility] NURSING PROG HNO ID: [id number] Author: JARED ALMAZAN RN Service: ? Author Type: Registered Nurse Type: Nursing Progress Note Filed: 05/19/2024 21:22 Note Text: Pt BP 183/76 MAP of 112. Paged #[phone] still covering for overnight and notified. Resident oracle iam consultant placed RN on hold, stated that she would call me back after asking her chief about orders. RN was never heard back. [phone]: still have not heard back from resident, RN attempted to reach #[phone] to notify of BP and request orders. RN never received a call back. Day shift RN updated on situation. [facility] POTASSIUMon 05-19-2024 Potassium [Moles/Vol] 4.2 mmol/L Normal 3.7-5.1 [facility] Comment on above: Order Comment: Speci men Type: BLOOD SPECIMENOrdering Facility: [facility] Address: [address] [place] [address] Performed By: #### K 1, 23408-2 ####[facility] LABORATORYCLIA [id number] [place] [address] [place] THERAPY NTon 05-19-2024 THERAPY NT HNO ID: [id number] Author: DAIANA SEGURA, OTR/L Service: Occupational Therapy Author Type: Occupational Therapist Type: Therapy (PT/OT/Speech/Resp) Filed: 05/19/2024 12:04 Note Text: Occupational Therapy Evaluation Summary SERVICE DATE: 05/19/2024 SERVICE TIME: 0950 to 1020 ROOM: [place] [address] OT 6 Clicks Score: 15 DISCHARGE RECOMMENDATIONS Subacute/SNF Recommended Discharge Disposition Due to: Functional deficits requiring ongoing therapy service prior to discharge home., Functional status decline ASSESSMENT Response to Therapy Interventions: Good Participation in Activities, Cognitive Deficits, Needs Frequent Redirection or Reinstruction, Requires Additional Time to Complete Activities PRECAUTIONS Bed/Chair Alarm, Fall Risk CURRENT HOSPITAL COURSE Per chart review, pt with witness ed fall at SNF. In Ed pt with facial droop, L side weakness (had large stroke 04/2024 and was at [facility] and then transitioned to SNF), tele medicine Neuro found Patient with chronic rt MCA infarcts; remote parietal infarct and reporting symptoms are recrudesense. Pt with traumatic injuries to ribs with subacte nondisplaced anterior L 8,9, 10 rib fxs and Mild superior plate compression deformity t12. Stroke team called 05/18 due to worsening stroke symptoms, neuro came to assess and deemed stable for RNF. Relevant Past Medical History: CKD, HTN, aortic valve replacement, CAD, CVA HOME LIVING Patient Lives With: Family (recently to [place] then SNF post stroke) Assistance Available: Part-Time Entry To Home: Stairs, With Rail Number Of Stairs Into Home: 3 Number Of Stairs To Bed/Bath: can stay on first floor Equipment Owned: (none) PRIOR FUNCTIONAL LEVEL Within Functional Limits, History of Falls Pt unable to report due to aphasia/dysarthria. Per chart pt lives with dtr in apt, completely independent, active, driving, prior to CVA. His lives in ECF. Baseline Cognition: Oriented to self, Oriented to place, Oriented to time, Oriented to situation SUBJECTIVE pleasant and agreeable to OT COGNITION Communication Deficits: Expressive Deficits Orientation Deficits: Confused, Not oriented to Situation Responsiveness: Alert, Awake Follows Commands: 1-step Commands, Cueing Needed Cueing to Follow Commands: Moderate Attention Deficits: Distractible Executive Function Deficits: Safety Awareness, Sequencing, Judgement, Motor Planning, Insight to Deficits THERAPY DIAGNOSIS Reduced mobility-other, Decreased activities of daily living (ADL) TREATMENT INTERVENTIONS Evaluation, Therapeutic Activity (92049) Timed Code Treatment (minutes): 10 Skilled Treatment Time (minutes): 25 $ Evaluation - Moderate (41766) Billed Units: 1 unit Therapeutic Activity (76271) Treatment Minutes: 10 $ Therapeutic Activity (95713) Billed Units: 1 unit TRAINING AND EDUCATION PROVIDED Assistive Device Use, Bed Mobility, Benefits of In-Hospital Mobility, Cognitive Skills, Command Following, Discharge Planning, Disease Specific Education, Expected Functional Level, Functional Mobility Involving ADLs, Lower Extremity Dressing, Role of Occupational Therapy, Positioning, Sitting Balance to Improve [place] with ADLs/Self-Care, Standing Balance to Improve [place] with ADLs/Self-Care, Transfer - Bed to Chair, Transfer - Sit to Stand, Upper Extremity Bathing, Visual Scanning/Attention Activities THERAPEUTIC SKILLS USED Activity Dosing, Cues for Sequencing/Proper Technique for Activity, Cuing Tactile, Cuing Verbal, Cuing Visual, Facilitation of Joint Range of Motion, Physical Assist, Proprioceptive Input, Therapeutic Use of Self FUNCTIONAL STATUS Activities of Daily Living Assist Level Additional Information Feeding Set Up Grooming Minimal Assistance Bathing Upper Body Moderate Assistance Bathing Lower Body Maximal Assistance Dressing Upper Body Minimal Assistance Dressing Lower Body Maximal Assistance Toileting Moderate Assistance Mobility Assist Level Additional Information Bed Mobility Supine To Sit: Minimal Assistance Sit to Stand Minimal Assistance Stand to Sit Minimal Assistance Bed to Chair Moderate Assistance Bed To Chair Transfer Type: Stepping Bed To Chair Transfer Equipment: Gait Belt, Wheeled Walker Instructed patient from supine to sit edge of bed and provided cues for proper hand placement to improve bed mobility. Instructed patient from sit to stand at wheeled walker and provided physical assist and cues for proper hand placement and fall prevention (fall guarding). Provided education on safe walker navigation and fall prevention for functional mobility from bed to chair. Patient requires mod verbal cues to manage walker to take steps to bedside chair due to left side neglect. He attempts multiple times to abandon walker requiring frequent cues and assist at walker. Provided cues and physical assist for safe hand placement for stand to sit. Provided assi (more content not included)... [facility] THERAPY NT HNO ID: [id number] Author: FARIHA HUERTA, NEEL-CAT OPERATOR Service: Speech/Swallow Author Type: Speech Language Pathologist Type: Therapy (PT/OT/Speech/Resp) Filed: 05/19/2024 11:16 Note Text: Speech Therapy Treatment SERVICE DATE: 05/19/2024 SERVICE TIME: 1045 to 1100 ROOM: [place] [address] IMPRESSION: Swallow Deficits Identified / Suspected: Oropharyngeal dysphagia Diet Recommendations: Minced and Moist IDDSI Level 5 Mildly Thick Liquids IDDSI Level 2 (Maurice Thick) Medications whole in puree (pudding/applesauce) Swallowing Precautions Recommendations: Alternate bites and sips Check oral cavity for remaining food Feed / Eat at a slow rate Sit upright 90 degrees for all PO Small Bite/Sip Supervision/Assistance for meals Rigid Oral Hygiene Nursing Recommendations: Reinforce use of swallowing strategies, See swallow guide posted in patients room Recommended Discharge Disposition: Subacute/SNF Justification for Recommended Discharge Disposition: Patient requires daily, facility-based rehabilitation from at least one discipline due to:, dysphagia requiring frequent assessment and diet modification, requires active, intensive and ongoing intervention of multiple therapy disciplines Current Hospital Course: Admitted post fall. 05/18 CT Brain: no acute process, subacute/chronic areas of infarct involving right cerebral hemisphere; CT Chest: Left rib fxs, subtle infiltrative changes left infraclavicular region Rehabilitation Precautions: Modified Diet, Aspiration Precautions, Dysphagia, Cognitive Linguistics Deficits, Communication Deficits Reason for Speech Therapy Consult: post fall, recent stroke Relevant Past Medical History: stroke, Moses's esophagus, hiatal hernia, CABG Response to Therapy Interventions: Aspiration Risk, Cognitive Deficits, Good Participation in activities Subjective: Alert, up in chair and agreeable to tx Current Status Oral Hygiene: Clear, dry oral cavity Dentition: Retains Natural Dentition, Denture-Upper Full Current Feeding Method: Oral Current Diet Textures: Minced and Moist IDDSI Level 5, Mildly Thick Liquids IDDSI Level 2 (Maurice Thick) Current Level Of Communication: Verbal Current Management Of Secretions: Able to self-manage Oral Motor Exam: Within Functional Limits Except Facial Symmetry Impaired: Left Labial Assessment: Poor labial seal, Generalized weakness Labial ROM Impaired: Left Labial Strength Impaired: Left Lingual Assessment: Generalized weakness Swallow Assessment Position Of Patient During Assessment: Upright In Chair Consistencies Presented: Thin Liquids IDDSI Level 0, Mildly Thick Liquids IDDSI Level 2 (Maurice Thick), Pureed IDDSI Level 4, Minced and Moist IDDSI Level 5 Compensatory Strategies Utilized During Assessment: Alternate bites and sips, Check oral cavity for remaining food, Feed / Eat at a slow rate, Sit upright 90 degrees for all PO, Small Bite/Sip, Supervision/Assistance for meals. Previous Swallow Study: MBS (05/13/24 level 5/mildly thick) -Patient alert, up in chair on CAT OPERATOR arrival, agreeable to therapy -RN concern re pocketing -Able to feed self with set up assist -Suspect impaired oral bolus formation/transit, intermittent anterior loss left with decreased awareness -Mastication time increased for solids -Min oral residuals post swallow, able to clear with cued liquid wash -Laryngeal movement detected upon palpation of swallow -No cough, throat clear, or change in vocal quality with po trials -Recommend diet and strategies as above -May benefit from instrumental assessment to further evaluate oropharyngeal swallow function as clinically indicated (3x in April following stroke) Patient /Caregiver Goals: Eat/Drink Without Restrictions Goals for Plan of Care: Goals: SWALLOWING: Patient / Caregiver will demonstrate knowledge of taught compensatory strategies and dietary consistency recommendations to optimize functional swallow function without overt clinical signs and symptoms of aspiration or dysphagia Swallow Goals: Patient will tolerate Minced and Moist IDDSI Level 5 diet consistency while utilizing compensatory/swallowin g strategies given minimal cues in 90% of trials so that the patient will minimize the signs/symptoms of dysphagia. See above 05/19/2024 Patient will tolerate Mildly Thick Liquids IDDSI Level 2 (Maurice Thick) consistency while utilizing compensatory/swallowin g strategies given minimal cues in 90% of trials so that the patient will minimize the signs/symptoms of dysphagia. See above 05/19/2024 Patient, Caregiver will demonstrate adequate return of knowledge of all compensatory strategies/instruction to effectively assist the patient in immediate safety with oral intake and swallowing. Patient will participate with swallow re-assessment to determine if food and drink texture can be safely upgraded vs need for instrumentation. See above 05/19/2024 Progress Toward Goals: (more content not included)... [facility] XR CHEST 2V FRONTAL/LATon XR CHEST 2V FRONTAL/LAT * * *Final Repor t* * * DATE OF EXAM: May 19 2024 8:10AM AKX [id number] - XR CHEST 2V FRONTAL/LAT / PROCEDURE REASON: Chest Pain * * * * Physician Interpretation * * * * EXAMINATION: CHEST RADIOGRAPH (2 VIEW FRONTAL and LATERAL) CLINICAL HISTORY: Chest Pain MQ: XC2_6 EXAM DATE/TIME: 05/19/2024 8:10 AM COMPARISON: No relevant prior studies available. RESULT: Lines, tubes, and devices: secured entrance monitor leads overlie the thorax. Lungs and pleura: No pneumothorax, pleural effusion or consolidation. Cardiomediastinal silhouette: Normal cardiomediastinal silhouette. Bones and soft tissues: Sternal fixation hardware. IMPRESSION: No acute radiographic abnormality. Inspector Tester Sorter: PSCB Transcribe Date/Time: May 19 2024 9:25A Dictated by : FREDRICK GONZALEZ MD This examination was interpreted and the report reviewed and electronically signed by: FREDRICK GONZALEZ MD on May 19 2024 9:26AM EST [id number] [facility] ALLIED HEALTHon 05-18-2024 ALLIED HEALTH HNO ID: [id number] Author: MAXINE ARCHER RT(Jason) Service: ? Author Type: Language Specialist Type: Allied Health Filed: 05/18/2024 18:47 Note Text: Radiology Service Progress Note PATIENT NAME: Jonathon Perales DATE OF SERVICE: May 18, 2024 TIME: 6:47 PM PATIENT IDENTITY VERIFICATION COMPLETED USING TWO (2) IDENTIFIERS: Name and Date of confirmed by identification band and Name and Date of obtained from a relative, guardian or prior caregiver.. FALL SCREENING: Has the patient had 2 falls in the last year or 1 fall with injury or currently using an Ambulatory Assistive Device (Walker, Cane, Wheelchair, Crutches, etc.)? Inpatient: Screened on floor PATIENT GENDER DATA: Male PATIENT RELEVANT IMPLANT DATA REVIEWED: Not Applicable PATIENT PRESENTS WITH AN IMPLANTABLE OR ATTACHED INTERVIEWING CLERK: No RADIOLOGY DEPARTMENT: CT; Exam(s) Completed: Brain PERIPHERAL IV DATA: Inpatient: see LDA documentation SIGNED BY: RT Luisana(R) May 18, 2024 6:47 PM [facility] ALLIED HEALTH HNO ID: [id number] Author: SANDIE COE Chaplain Service: ? Author Type: Project Asst Type: Allied Health Filed: 05/18/2024 09:50 Note Text: SPIRITUAL CARE PROGRESS NOTE SERVICE DATE: 05/18/2024 SERVICE TIME: 8:30 AM Project Asst attended patient as referred for emotional support but patient was busy with another provider at time of visit. Project Asst was a silent, supportive presence. Project Asst(s) will follow as circumstances. To contact the Spiritual Care Department: Please call [phone]. SIGNATURE: Chaplain David PATIENT NAME: Jonathon Perales DATE: May 18, 2024 TIME: 9:49 AM PAGER/CONTACT #: [phone] [facility] CBC panel Auto (Bld)on 05-18 Erythrocyte distribution width (RBC) [Ratio] 13.2 % Normal 11.5-15.0 [facility] Comment on above: Order Comment: Lyndsey eller Type: BLOOD SPECIMENOrdering Facility: [facility] Address: [address] [place] [address] Performed By: #### 5 8410-2 ####[facility] LABORATORYCLIA [id number] [address] [place] Hematocrit (Bld) [Volume fraction] 35.7 % Low 39.0-51.0 [facility] Comment on above: Order Comment: Lyndsey eller Type: BLOOD SPECIMENOrdering Facility: [facility] Address: [address] [place] [address] Performed By: #### 5 8410-2 ####[facility] LABORATORYCLIA [id number] [place] [address] [place] Hemoglobin (Bld) [Mass/Vol] 11.9 g/dL Low 13.0-17.0 [facility] Comment on above: Order Comment: Rosii rafita Type: BLOOD SPECIMENOrdering Facility: [facility] Address: [facility] [place] [address] Performed By: #### 5 8410-2 ####[facility] LABORATORYCLIA [id number] [place] [address] [place] MCH (RBC) [Entitic mass] 34.9 pg High 26.0-34.0 [facility] Comment on above: Order Comment: Speci men Type: BLOOD SPECIMENOrdering Facility: [facility] Address: [address] [place] [address] Performed By: #### 5 8410-2 ####[facility]ATORYCLIA [id number] [place] [address] [place] MCHC (RBC) [Mass/Vol] 33.3 g/dL Normal 30.5-36.0 [facility] Comment on above: Order Comment: Speci men Type: BLOOD SPECIMENOrdering Facility: [facility] Address: [address] [place] [address] Performed By: #### 5 8410-2 ####[facility] LABORATORYCLIA [id number] [address] [place] MCV (RBC) [Entitic vol] 104.7 fL High 80.0-100.0 [facility] Comment on above: Order Comment: Speci men Type: BLOOD SPECIMENOrdering Facility: [facility] Address: [address] [place] [address] Performed By: #### 5 8410-2 ####[facility]ORATORYCLIA [id number] [address] [place] Nucleated RBC (Bld) [#/Vol] 10*3/uL Normal <0.01 [facility] Comment on above: Order Comment: Speci men Type: BLOOD SPECIMENOrdering Facility: [facility] Address: [address] [place] [address] Performed By: #### 5 8410-2 ####[facility] LABORATORYCLIA [id number] [address] [place] Platelet mean volume (Bld) [Entitic vol] 9.8 fL Normal 9.0-12.7 [facility] Comment on above: Order Comment: Speci men Type: BLOOD SPECIMENOrdering Facility: [facility] Address: [address] [place] [address] Performed By: #### 5 8410-2 ####[facility]ATORYCLIA [id number] [address] [place] Platelets (Bld) [#/Vol] 339 10*3/uL Normal 150-400 [facility] Comment on above: Order Comment: Speci men Type: BLOOD SPECIMENOrdering Facility: [facility] Address: [address] [place] [address] Performed By: #### 5 8410-2 ####[facility]ATORYCLIA [id number] [address] [place] RBC (Bld) [#/Vol] 3.41 10*6/uL Low 4.20-6.00 [facility] Comment on above: Order Comment: Speci men Type: BLOOD SPECIMENOrdering Facility: [facility] Address: [address] [place] [address] Performed By: #### 5 8410-2 ####[facility] LABORATORYCLIA [id number] [address] WBC (Bld) [#/Vol] 7.63 10*3/uL Normal 3.70-11.00 [facility] Comment on above: Order Comment: Speci men Type: BLOOD SPECIMENOrdering Facility: [facility] Address: [address] [place] [address] Performed By: #### 5 8410-2 ####[facility]ATORYCLIA [id number] [address] Erythrocyte distribution width (RBC) [Ratio] 13.2 % Normal 11.5-15.0 [facility] Comment on above: Order Comment: Speci men Type: BLOOD SPECIMENOrdering Facility: [facility] Address: [address] [place] [address] Performed By: #### 5 8410-2 ####[facility]ATORYCLIA [id number] [address] Hematocrit (Bld) [Volume fraction] 39.2 % Normal 39.0-51.0 [facility] Comment on above: Order Comment: Speci men Type: BLOOD SPECIMENOrdering Facility: [facility] Address: [address] [place] [address] Performed By: #### 5 8410-2 ####[facility] LABORATORYCLIA [id number] [address] OF [facility] Hemoglobin (Bld) [Mass/Vol] 12.9 g/dL Low 13.0-17.0 [facility] Comment on above: Order Comment: Speci men Type: BLOOD SPECIMENOrdering Facility: [facility] Address: [address] [place] [address] Performed By: #### 5 8410-2 ####[facility]ATORYCLIA [id number] [address] MCH (RBC) [Entitic mass] 34.9 pg High 26.0-34.0 [facility] Comment on above: Order Comment: Speci men Type: BLOOD SPECIMENOrdering Facility: [facility] Address: [address] [place] [address] Performed By: #### 5 8410-2 ####[facility]ATORYCLIA [id number] [address] MCHC (RBC) [Mass/Vol] 32.9 g/dL Normal 30.5-36.0 [facility] Comment on above: Order Comment: Speci men Type: BLOOD SPECIMENOrdering Facility: [facility] Address: [address] [place] [address] Performed By: #### 5 8410-2 ####[facility]ATORYCLIA [id number] [address] MCV (RBC) [Entitic vol] 105.9 fL High 80.0-100.0 [facility] Comment on above: Order Comment: Speci men Type: BLOOD SPECIMENOrdering Facility: [facility] Address: [address] [place] [address] Performed By: #### 5 8410-2 ####[facility] LABORATORYCLIA [id number] [place] [address] [place] Nucleated RBC (Bld) [#/Vol] 10*3/uL Normal <0.01 [facility] Comment on above: Order Comment: Speci men Type: BLOOD SPECIMENOrdering Facility: [facility] Address: [address] [place] [address] Performed By: #### 5 8410-2 ####[facility]ORATORYCLIA [id number] [address] [place] Platelet mean volume (Bld) [Entitic vol] 9.9 fL Normal 9.0-12.7 [facility] Comment on above: Order Comment: Speci men Type: BLOOD SPECIMENOrdering Facility: [facility] Address: [address] [place] [address] Performed By: #### 5 8410-2 ####[facility]ORATORYCLIA [id number] [address] [place] Platelets (Bld) [#/Vol] 369 10*3/uL Normal 150-400 [facility] Comment on above: Order Comment: Speci men Type: BLOOD SPECIMENOrdering Facility: [facility] Address: [address] [place] [address] Performed By: #### 5 8410-2 ####[facility]ATORYCLIA [id number] [address] [place] RBC (Bld) [#/Vol] 3.70 10*6/uL Low 4.20-6.00 [facility] Comment on above: Order Comment: Speci men Type: BLOOD SPECIMENOrdering Facility: [facility] Address: [address] [place] [address] Performed By: #### 5 8410-2 ####[facility]ATORYCLIA [id number] [address] [place] WBC (Bld) [#/Vol] 7.49 10*3/uL Normal 3.70-11.00 [facility] Comment on above: Order Comment: Speci men Type: BLOOD SPECIMENOrdering Facility: [facility] Address: [address] [place], [place] [address] Performed By: #### 5 8410-2 ####[facility] LABORATORYCLIA [id number] [place] [address] [facility] CONSULTon 05-18-2024 CONSULT HNO ID: [id number] Author: ALENA STUBBS MD, PhD Service: Neurology ICU Author Type: Physician Type: Consults Filed: 05/19/2024 13:14 Note Text: NEURO STROKE HANDP SERVICE DATE: 05/18/2024 SERVICE TIME: 1899 PCP: Giorgio Fernandez DO REASON FOR STROKE EVALUATION: worsening of prior stroke symptoms Subjective HPI: 74 yo male with pmh recent right MCA stroke(s/p TNK/thrombectomy/DARIN/ CCA stenting 04/16/24), CAD, aortic valve replacement, HTN, HPL, CKD, and JAIRO who presented at a fall at his nursing facility. He did hit his head did not have any LOC. Upon initial presentation he was a stroke team for worsening left sided weakness, left facial droop, dysarthria, and neglect. CTH and CTA h/n were completed revealing his known subacute infarct, no LVO or high grade stenosis and patent stent. His iNIHSS reported to be 6. At that time symptoms were felt to be recrudescence. It was recommended to keep SBP 120-160. He was admitted to the trauma service. Remainder of trauma imaging revealed some left sided acute and subacute rib fractures. While on the RNF there was concern for new visual field deficits and difficulty looking completely left for which stroke team was activated. Upon arrival patient is resting in bed. Noted to be having a bradyarrhythmia and BP noted to be 96/66. NIHSS per my evaluation was 8. He does have left neglect and without having his complete attention it is difficult to have him track all the way left. Once he focuses on the examiner his visual whitaker are intact. He reports that his exam is relatively stable since his stroke except does feel his facial droop may be a little worse than it has been. Stroke team canceled as patient would not be a candidate for intervention. Stat CTH was completed given possible new symptom and recent head trauma. CTH was noted to have some petechial hemorrhage but stable overall. Discussed with trauma service resuming his ASA/plavix. Patient stable to remain on RNF. Of note last AR note physical exam from 05/15/24 General: Alert, no acute distress. 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 03/25/2018 CAD (coronary artery disease) Cataract Cerebellar stroke (HCC) CKD (chronic kidney disease) CVA (cerebral vascular accident) (HCC) Depression ED (erectile dysfunction) Essential hypertension H/O aortic valve replacement Hiatal hernia 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/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 HTN (hypertension) Hyperlipemia Hyperlipidemia Kidney stone Leukocytosis 04/16/2024 LVH (left ventricular hypertrophy) MDD (major depressive disorder) Need for SBE (subacute bacterial endocarditis) prophylaxis Bioprothestic AoV JAIRO (obstructive sleep apnea) S/P AVR bioprosthetic S/P CABG (coronary artery bypass graft) SVG-OM1 Seasonal allergic rhinitis Stroke (HCC) TIA (transient ischemic attack) Tubular adenoma of colon 05/06/2002 Vitamin B12 deficiency Vitamin D deficiency PAST SURGICAL HISTORY Procedure Laterality Date CARDIAC CATH 01/2018 CORONARY ARTERY BYPASS GRAFT HX SVG-OM1 EGD WITH BIOPSY(S) 03/25/2018 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 Zazueta EGD WITH BIOPSY(S) 01/13/2013 Dr. 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 Everett F COLONOSCOPY WITH POLYPECTOMY 05/06/2002 tubular adenoma; chronic colitis; Dr. Garcia F COLONOSCOPY WITH POLYPECTOMY 12/08/2018 tubular adenoma; Dr. Zazueta SHX AORTIC VALVE REPLACEMENT Bioprosthetic valve Social History Tobacco Use Smokeless tobacco: Never Vaping Use Vaping Use: Never used Substance Use Topics Alcohol use: No Drug use: No FAMILY HISTORY Problem Relation Age of Onset Heart disease Mother Breast Cancer Mother other (back) Mother Heart disease Father Coronary Artery Disease Father Alcohol/Drug Father other (kidney) Father Breast Cancer Sister Hypertension Sister No Known Problems Sister ALLERGIES Allergen Reactions Percocet [Oxycodone* Mental Status Change HALLUCINATIONS MEDICATION Pre-admission heparin sodium,porcine (HEPARIN, PORCINE,) 5,000 unit/mL (1 mL) crtg, 1 mL by INJECTION(UNSPECIFIED PARENTERAL ROUTES) route three times a day., Disp: , Rfl: Mirtazapine (REMERON) 7.5 mg tablet, Take 7.5 mg by mouth daily at bedtime., Disp: , (more content not included)... [facility] CONSULT HNO ID: [id number] Author: KILEY DIMAS DO Service: Hospital Medicine Author Type: Physician Type: Consults Filed: 05/18/2024 16:20 Note Text: DEPARTMENT OF HOSPITAL MEDICINE INITIAL CONSULT SERVICE DATE: 05/18/2024 SERVICE TIME: 3:20 PM Primary Care Physician: Giorgio Fernandez DO NIGHT AND WEEKEND COVERAGE: ALEXANDER COVERAGE: After 7pm, please call cross cover pager #[phone] REASON FOR CONSULT: medical management REQUESTING PHYSICIAN: Giorgio Graham MD Subjective CHIEF COMPLAINT: fall HPI: This is a 74 year old male who presents with fall on wet floor landing on his back. Hit back of head. Did not lose consciousness. CO left side chest and back pain after fall. Recent admission for acute R MCA stroke with L side weakness. Was at acute rehab and then to SNF. After fall facility felt that he had worsening L facial droop along with left side weakness. In ED trauma work up initiated showing acute fracture of anterior ribs 6 and 7 on left with subacute anterior 8-10 on left. Stroke neurology was activated in ED and CT brain showed no acute findings. The patient was not a candidate for TNK or other intervention. It was recommended that his blood pressure remain between 140-160. Patient was admitted to the trauma service. 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 03/25/2018 CAD (coronary artery disease) Cataract Cerebellar stroke (HCC) CKD (chronic kidney disease) CVA (cerebral vascular accident) (HCC) Depression ED (erectile dysfunction) Essential hypertension H/O aortic valve replacement Hiatal hernia 02/21/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 HTN (hypertension) Hyperlipemia Hyperlipidemia Kidney stone Leukocytosis 04/16/2024 LVH (left ventricular hypertrophy) MDD (major depressive disorder) Need for SBE (subacute bacterial endocarditis) prophylaxis Bioprothestic AoV JAIRO (obstructive sleep apnea) S/P AVR bioprosthetic S/P CABG (coronary artery bypass graft) SVG-OM1 Seasonal allergic rhinitis Stroke (HCC) TIA (transient ischemic attack) Tubular adenoma of colon 05/06/2002 Vitamin B12 deficiency Vitamin D deficiency PAST SURGICAL HISTORY Procedure Laterality Date CARDIAC CATH 01/2018 CORONARY ARTERY BYPASS GRAFT HX SVG-OM1 EGD WITH BIOPSY(S) 03/25/2018 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 Zazueta EGD WITH BIOPSY(S) 01/13/2013 Dr. 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 Everett F COLONOSCOPY WITH POLYPECTOMY 05/06/2002 tubular adenoma; chronic colitis; Dr. Garcia F COLONOSCOPY WITH POLYPECTOMY 12/08/2018 tubular adenoma; Dr. Zazueta SHX AORTIC VALVE REPLACEMENT Bioprosthetic valve FAMILY HISTORY Problem Relation Age of Onset Heart disease Mother Breast Cancer Mother other (back) Mother Heart disease Father Coronary Artery Disease Father Alcohol/Drug Father other (kidney) Father Breast Cancer Sister Hypertension Sister No Known Problems Sister Social History Tobacco Use Smokeless tobacco: Never Vaping Use Vaping Use: Never used Substance Use Topics Alcohol use: No Drug use: No MEDICATIONS: Reviewed heparin sodium,porcine (HEPARIN, PORCINE,) 5,000 unit/mL (1 mL) crtg, 1 mL by INJECTION(UNSPECIFIED PARENTERAL ROUTES) route three times a day., Disp: , Rfl: Mirtazapine (REMERON) 7.5 mg tablet, Take 7.5 mg by mouth daily at bedtime., Disp: , Rfl: venlafaxine (EFFEXOR) 75 mg tablet, 1 tablet by ORAL/FEEDING TUBE route three times a day with meals., Disp: , Rfl: clopidogrel (PLAVIX) 75 mg tablet, Take 1 tablet by mouth once daily., Disp: , Rfl: aspirin, enteric coated (ASPIRIN, ENTERIC COATED) 81 mg EC tablet, Take 81 mg by mouth once daily., Disp: , Rfl: cyanocobalamin (VITAMIN B-12) 1,000 mcg tab, Take 1,000 mcg by mouth once daily., Disp: , Rfl: cholecalciferol (VITAMIN D-3) 50 mcg (2,000 unit) tablet, Take 2,000 Units by mouth once daily., Disp: , Rfl: loratadine (CLARITIN) 10 mg tablet, take one tablet by mouth once a day, Disp: 90 tablet, Rfl: 3 metoprolol tartrate, short acting, (LOPRESSOR) 25 mg tablet, Take 0.5 tablets by mouth twice daily., Disp: 90 tablet, Rfl: 3 ezetimibe (ZETIA) 10 mg tablet, Take 1 tablet by mouth daily at bedtime., Disp: 90 tablet, Rfl: [address] (PROTONIX) 40 mg tablet, Take 1 tablet by mouth once daily., Disp: 90 tablet, Rfl: 3 atorvastatin (LIPITOR) 80 mg tablet, Take 1 tablet by mouth daily at bedtime., Disp: 90 tablet, Rfl: 3 acetaminophen (TYLENOL) 325 mg tablet, Take 2 tablets by mouth every 6 hours as needed., Disp: , Rfl: atorvastatin (LIPITOR) 80 mg tablet, 1 tablet by ORAL/FEEDING TUBE route daily at bedtime. (Patient not taking: Re (more content not included)... [facility] CT ABD/PEL W IVCONon 05-18- 024 CT ABD/PEL W IVCON * * *Final Report* * * DATE OF EXAM: May 18 2024 8:37AM [facility] 0530 - CT ABD/PEL W IVCON / PROCEDURE REASON: Abdominal trauma, blunt * * * * Physician Interpretation * * * * EXAMINATION: CHEST ABDOMEN PELVIS CT WITH CONTRAST Reconstructions CT thoracic and lumbar spine Indication: Stroke symptoms with fall Left chest bruising Technique: Spiral CT acquisition of the chest from the thoracic inlet to the upper abdomen following IV contrast. CT of the abdomen and pelvis was performed using trauma technique, scanning from just above the dome of the diaphragm to the symphysis pubis. M: [id number] Contrast: 150 mL Omnipaque [address] Dose-Length Product: 1859 mGy*cm CT Dose Reduction Employed: Automated exposure control (AEC) Comparison: CT abdomen pelvis 08/07/2020, chest CT 10/25/2009 RESULT: CHEST: Limitations: None. Lines, tubes, and devices: None. Lung parenchyma and pleura: Bronchial wall thickening Regions of subsegmental and dependent atelectasis No pneumothorax or pleural effusion Thoracic inlet, heart, and mediastinum: No mediastinal hematoma. No lymphadenopathy in the axillary, mediastinal, or hilar regions. The thoracic aorta and main pulmonary artery are normal in caliber. The cardiac chambers are normal in size. Coronary artery atherosclerotic calcifications are noted, although the study is not optimized for coronary assessment. No pericardial effusion or thickening. Prior aortic valve replacement. Dilated ascending aorta 4.2 cm, previously 4 cm. Normal course thoracic aorta. Normal caliber main pulmonary artery. Bones and soft tissues: Subtle infiltrative changes seen by the left infraclavicular region extending towards the axilla, by the subclavian vessels Subcutaneous infiltrative change/edema along the upper back extending to the dorsal shoulders Subcutaneous infiltrative changes at the anterior left lower chest extending to the mid abdominal wall Median sternotomy Acute nondisplaced anterior left 6th rib fracture Acute displaced fracture anterior left 7th rib at the chondral region Subacute nondisplaced anterior left 8th, 9th, 10th rib fractures ABDOMEN: Liver: Steatosis. Biliary: No bile duct dilation. Gallbladder is unremarkable. Spleen: No mass. No splenomegaly. Pancreas: No mass or duct dilation. Adrenals: Stable mild left adrenal nodularity. Kidneys: Subcentimeter lesions that are too small to characterize but likely benign. Additional scarring bilaterally. GI tract: No dilation or wall thickening. Diverticulosis. Normal appendix. Lymph nodes: No abdominal or pelvic lymphadenopathy. Mesentery/Peritoneum: No ascites or mass. Vasculature: The celiac axis and SMA are patent with severe narrowing at the celiac axis artery origin. The portal vein and branches, splenic vein, SMV, and hepatic veins are patent. Diffuse atherosclerotic disease with regions of moderate and severe luminal narrowing of the infrarenal abdominal aorta, and common iliac arteries bilaterally. At least moderate narrowing involving the common femoral arteries bilaterally. Pelvis: No mass, ascites or fluid collection. Bones/Soft Tissues: Degenerative changes. Focal infiltrative changes with couple tiny foci subcutaneous gas anterior mid abdominal wall Localizer images: No additional findings. Thoracic: 12 paired ribs, vertebral body articulating with the first set of ribs designated T1. T7 anterior wedge compression deformity grossly stable from prior chest CT Mild superior plate compression deformity T12, stable from prior CT abdomen pelvis. No new traumatic malalignment. No evidence of acute thoracic spine fracture. Remaining vertebral body and disc heights maintained. No high-grade central canal or neuroforaminal narrowing. Lumbar: Counting reference: Lumbosacral junction. For the purposes of this report, L4-5 is considered the level of the iliac crest. No evidence of traumatic malalignment or acute lumbar spine fracture. Multilevel central canal narrowing, severe-appearing at L4/5 and L3/4. Multilevel at least moderate neuroforaminal narrowing, with severe appearing narrowing right L3/4. IMPRESSION: Acute nondisplaced anterior left 6th, displaced anterior left 7th at the chondral region, and subacute left anterior 8th-10th rib fractures. Associated anterior chest/abdominal wall subcutaneous injury/bruising in these surrounding regions Subtle infiltrative changes left infraclavicular region by the subclavian vessels extending towards the axilla, may reflect injury No evidence of acute lumbar or thoracic spine fracture Nonemergent findings: * Dilated ascending aorta 4.2 cm, previously 4 cm * Diffuse atherosclerotic disease with regions of moderate and severe luminal narrowing of the infrarenal abdominal aorta, and common iliac arteries bilaterally. At least moderate narrowing involving the common femoral arteries bila (more content not included)... [facility] CT BRAIN ATTACK WO IVCONon 0 05-18-2024 CT BRAIN ATTACK WO IVCON * * *Final Report* * * DATE OF EXAM: May 18 2024 8:22AM [facility] 0502 - CT BRAIN ATTACK WO IVCON / PROCEDURE REASON: Focal neuro deficit, new, fixed, or worsening, < 4.5 hours, stroke suspected * * * * Physician Interpretation * * * * EXAMINATION: CT BRAIN ATTACK WITHOUT IV CONTRAST CLINICAL HISTORY: Left facial droop. Focal neuro deficit, stroke suspected. Brain attack. TECHNIQUE: Routine CT of the brain without IV contrast. MQ: CTBA_4 CT Radiation dose: Integrated CT Dose-Length Product (DLP) for this visit = 790 mGy*cm CT Dose Reduction Employed: Automated exposure control (AEC) COMPARISON: CT brain 04/30/2024. MRI brain 04/17/2024. RESULT: Acute ischemic change: None. ASPECT Score = 10 Hemorrhage: No evidence of acute intracranial hemorrhage. ECASS hemorrhagic transformation score: Not Applicable Mass Lesion / Mass Effect: There is no evidence of an intracranial mass or extraaxial fluid collection. No significant mass effect. Chronic change: Scattered small foci of low attenuation are present within white matter which is a nonspecific finding but likely represents minimal microvascular ischemia. Encephalomalacia in the left parietal-occipital junction consistent with remote infarct. Early encephalomalacia involving portions of the left basal ganglia, left insular cortex, and portions of the left frontal and left parietal lobes consistent with areas of subacute/early chronic infarct. Multiple remote lacunar infarcts in the left cerebellum. Parenchyma: There is no significant volume loss. Ventricles: Within normal limits for patient age and degree of volume loss. Other: Frothy secretions again noted in the right frontal sinus. Remaining visualized paranasal sinuses are clear. The visualized calvarium, skull base, orbits and extracranial soft tissues are normal. Localizer images: Unremarkable. IMPRESSION: 1. No evidence of acute intracranial process. 2. Subacute/chronic areas of infarct involving right cerebral hemisphere as detailed above. 3. Remote ischemic infarct of the left parietal-occipital lobe junction. Multiple remote lacunar infarcts of the left cerebellum. 4. Mild generalized brain parenchymal volume loss. CRITICAL TEST/RESULTS: Notification initiated at 05/18/2024 8:[address] Gentile on 05/18/2024 8:38 AM . CR_1 Inspector Tester Sorter: MILTON Transcribe Date/Time: May 18 2024 8:27A Dictated by : LISA CASTANEDA MD This examination was interpreted and the report reviewed and electronically signed by: LISA CASTANEDA MD on May 18 2024 8:42AM EST [id number] CRITICAL!! Invalid Interpretation Code [facility] CT BRAIN WO IVCONon 05-18-[address] BRAIN WO IVCON * * *Final Report* * * DATE OF EXAM: May 18 2024 6:47PM [facility] 0504 - CT BRAIN WO IVCON / PROCEDURE REASON: Stroke, follow up * * * * Physician Interpretation * * * * EXAMINATION: CT BRAIN WO IVCON CLINICAL HISTORY: Stroke, follow up TECHNIQUE: Serial axial images without IV contrast were obtained from the vertex to the foramen magnum. MQ: CTBWO_3 CT Radiation dose: Integrated Dose-Length Product (DLP) for this visit = 754 mGy*cm CT Dose Reduction Employed: Automated exposure control(AEC) and iterative recon COMPARISON: CT head 05/18/2024 RESULT: Localizer images: No additional findings. Post-operative change: None. Acute change: Subacute right parietal infarct. There is increased cortical density since the previous study. No new acute infarct Mass Lesion / Mass Effect: Sulcal effacement. No midline shift. Chronic change: Chronic left parietal and cerebellar infarcts. Parenchyma: There is moderate generalized volume loss. The brain parenchyma is otherwise within normal limits for age. Ventricles: Ventricular enlargement concordant with the degree of parenchymal volume loss. Paranasal sinuses and skull base: The visualized paranasal sinuses are grossly clear. The skull base and imaged soft tissues are unremarkable. IMPRESSION: Subacute right parietal infarct. Increased cortical density since the previous study raises the concern of confluent petechial hemorrhage. No space occupying hematoma. No new infarcts. Inspector Tester Sorter: MILTON Transcribe Date/Time: May 18 2024 7:15P Dictated by : EVELIO GEORGE MD This examination was interpreted and the report reviewed and electronically signed by: EVELIO GEORGE MD on May 18 2024 7:21PM EST [id number] [facility] CT C-SPINE W RECON DATA -NBo n 05-18-2024 CT C-SPINE W RECON DATA -NB * * *Final Report* * * DATE OF EXAM: May 18 2024 8:39AM [facility] 0478 - CT C-SPINE W RECON DATA -NB / PROCEDURE REASON: Spine fracture, cervical, traumatic * * * * Physician Interpretation * * * * EXAMINATION: CT C-SPINE W RECON DATA -NB CLINICAL HISTORY: Spine fracture, cervical, traumatic TECHNIQUE: Spiral, high resolution axial unenhanced images were obtained from the skull base to the cervicothoracic junction with sagittal and coronal planar reconstructions. MQ: CTCSPWO_5 CT Radiation dose: Integrated CT Dose-Length Product (DLP) for this visit = 1859 mGy*cm CT Dose Reduction Employed: Automated exposure control(AEC) and iterative recon COMPARISON: CT cervical spine 01/31/2016. RESULT: Counting reference: Craniocervical junction. Anatomic Variants: None. Entry Level Marketing Assistant (topogram) images: No additional findings. Alignment: Alignment is anatomic. Craniocervical junction: Craniocervical junction is normal. Osseous structures/fracture: No evidence of a lytic or blastic process in the visualized spine. No evidence of acute or chronic fracture. Ununited posterior arch C1, congenital. Cervical soft tissues: The paraspinal soft tissues are within normal limits. Degenerative changes: Varying degrees of multilevel neuroforaminal narrowing from 7 UVJ degenerative change. No high-grade central canal stenosis. IMPRESSION: No evidence of acute cervical spine fracture Degenerative changes Anatomic Variant: None. Assume 7 cervical vertebrae with counting from the craniocervical junction. Inspector Tester Sorter: PSCB Transcribe Date/Time: May 18 2024 9:21A Dictated by : DEEPAK MONTERROSO MD This examination was interpreted and the report reviewed and electronically signed by: DEEPAK MONTERROSO MD on May 18 2024 9:26AM EST [id number] [facility] CT CHEST W IVCONon CT CHEST W IVCON * * *Final Report* * * DATE OF EXAM: May 18 2024 8:37AM [facility] 0539 - CT CHEST W IVCON / PROCEDURE REASON: Chest trauma, blunt * * * * Physician Interpretation * * * * EXAMINATION: CHEST ABDOMEN PELVIS CT WITH CONTRAST Reconstructions CT thoracic and lumbar spine Indication: Stroke symptoms with fall Left chest bruising Technique: Spiral CT acquisition of the chest from the thoracic inlet to the upper abdomen following IV contrast. CT of the abdomen and pelvis was performed using trauma technique, scanning from just above the dome of the diaphragm to the symphysis pubis. M: CTCW_4 Contrast: 150 mL Omnip[address] Dose-Length Product: 1859 mGy*cm CT Dose Reduction Employed: Automated exposure control (AEC) Comparison: CT abdomen pelvis 08/07/2020, chest CT 10/25/2009 RESULT: CHEST: Limitations: None. Lines, tubes, and devices: None. Lung parenchyma and pleura: Bronchial wall thickening Regions of subsegmental and dependent atelectasis No pneumothorax or pleural effusion Thoracic inlet, heart, and mediastinum: No mediastinal hematoma. No lymphadenopathy in the axillary, mediastinal, or hilar regions. The thoracic aorta and main pulmonary artery are normal in caliber. The cardiac chambers are normal in size. Coronary artery atherosclerotic calcifications are noted, although the study is not optimized for coronary assessment. No pericardial effusion or thickening. Prior aortic valve replacement. Dilated ascending aorta 4.2 cm, previously 4 cm. Normal course thoracic aorta. Normal caliber main pulmonary artery. Bones and soft tissues: Subtle infiltrative changes seen by the left infraclavicular region extending towards the axilla, by the subclavian vessels Subcutaneous infiltrative change/edema along the upper back extending to the dorsal shoulders Subcutaneous infiltrative changes at the anterior left lower chest extending to the mid abdominal wall Median sternotomy Acute nondisplaced anterior left 6th rib fracture Acute displaced fracture anterior left 7th rib at the chondral region Subacute nondisplaced anterior left 8th, 9th, 10th rib fractures ABDOMEN: Liver: Steatosis. Biliary: No bile duct dilation. Gallbladder is unremarkable. Spleen: No mass. No splenomegaly. Pancreas: No mass or duct dilation. Adrenals: Stable mild left adrenal nodularity. Kidneys: Subcentimeter lesions that are too small to characterize but likely benign. Additional scarring bilaterally. GI tract: No dilation or wall thickening. Diverticulosis. Normal appendix. Lymph nodes: No abdominal or pelvic lymphadenopathy. Mesentery/Peritoneum: No ascites or mass. Vasculature: The celiac axis and SMA are patent with severe narrowing at the celiac axis artery origin. The portal vein and branches, splenic vein, SMV, and hepatic veins are patent. Diffuse atherosclerotic disease with regions of moderate and severe luminal narrowing of the infrarenal abdominal aorta, and common iliac arteries bilaterally. At least moderate narrowing involving the common femoral arteries bilaterally. Pelvis: No mass, ascites or fluid collection. Bones/Soft Tissues: Degenerative changes. Focal infiltrative changes with couple tiny foci subcutaneous gas anterior mid abdominal wall Localizer images: No additional findings. Thoracic: 12 paired ribs, vertebral body articulating with the first set of ribs designated T1. T7 anterior wedge compression deformity grossly stable from prior chest CT Mild superior plate compression deformity T12, stable from prior CT abdomen pelvis. No new traumatic malalignment. No evidence of acute thoracic spine fracture. Remaining vertebral body and disc heights maintained. No high-grade central canal or neuroforaminal narrowing. Lumbar: Counting reference: Lumbosacral junction. For the purposes of this report, L4-5 is considered the level of the iliac crest. No evidence of traumatic malalignment or acute lumbar spine fracture. Multilevel central canal narrowing, severe-appearing at L4/5 and L3/4. Multilevel at least moderate neuroforaminal narrowing, with severe appearing narrowing right L3/4. IMPRESSION: Acute nondisplaced anterior left 6th, displaced anterior left 7th at the chondral region, and subacute left anterior 8th-10th rib fractures. Associated anterior chest/abdominal wall subcutaneous injury/bruising in these surrounding regions Subtle infiltrative changes left infraclavicular region by the subclavian vessels extending towards the axilla, may reflect injury No evidence of acute lumbar or thoracic spine fracture Nonemergent findings: * Dilated ascending aorta 4.2 cm, previously 4 cm * Diffuse atherosclerotic disease with regions of moderate and severe luminal narrowing of the infrarenal abdominal aorta, and common iliac arteries bilaterally. At least moderate narrowing involving the common femoral arteries bilaterall (more content not included)... [facility] CT FACIAL BONE/NORMA WO IVCON on 05-18-2024 CT FACIAL BONE/NORMA WO IVCON * * *Final Report* * * DATE OF EXAM: May 18 2024 9:34AM [facility] 0507 - CT FACIAL BONE/NORMA WO IVCON / PROCEDURE REASON: Maxillofacial pain * * * * Physician Interpretation * * * * EXAMINATION: CT FACIAL BONE/MANDIBLE WITHOUT IV CONTRAST CLINICAL HISTORY: Maxillofacial pain. Trauma level 2. Status post fall. Facial trauma. Technique: Axial images were reconstructed through the facial bones from the 05/18/2024 CTA head/neck data with sagittal and coronal planar reconstructions. MQ: CTMFWO_1 CT Radiation dose: Integrated Dose-Length Product (DLP) for this visit = 0 mGy*cm. CT Dose Reduction Employed: Iterative recon COMPARISON: CT brain 04/15/2024 and 04/30/2024. MRI brain 04/17/2024. RESULT: Localizer images: Unremarkable. Soft Tissues: No significant superficial soft tissue swelling. Facial bones: No evidence of an acute fracture in the visualized facial bones. Orbits: No evidence of an acute fracture. The globes are intact. The soft tissue planes of the orbits are maintained. Paranasal Sinuses: Frothy secretions again noted in the right frontal sinus. Mild fluid again noted in some of the left mastoid air cells. The remaining paranasal sinuses and mastoid air cells are clear. Foreign Bodies: No evidence of radiopaque foreign bodies. Other: No evidence of a remote fracture. No lytic or blastic process seen in the facial bones. Right carotid artery stent is noted. IMPRESSION: 1. No evidence of acute facial bone fracture. 2. Nonspecific fluid in right frontal sinus and left mastoid air cells, nonspecific in a patient that was previously intubated. Inspector Tester Sorter: MILTON Transcribe Date/Time: May 18 2024 9:56A Dictated by : LISA CASTANEDA MD This examination was interpreted and the report reviewed and electronically signed by: LISA CASTANEDA MD on May 18 2024 10:15AM EST [id number] [facility] CT LUMBAR SPINE W RECON DATA -NBon 05-18-2024 CT LUMBAR SPINE W RECON DATA -NB * * *Final Report* * * DATE OF EXAM: May 18 2024 8:37AM [facility] 0481 - CT LUMBAR SPINE W RECON DATA -NB / PROCEDURE REASON: Spine fracture, lumbar, traumatic * * * * Physician Interpretation * * * * EXAMINATION: CHEST ABDOMEN PELVIS CT WITH CONTRAST Reconstructions CT thoracic and lumbar spine Indication: Stroke symptoms with fall Left chest bruising Technique: Spiral CT acquisition of the chest from the thoracic inlet to the upper abdomen following IV contrast. CT of the abdomen and pelvis was performed using trauma technique, scanning from just above the dome of the diaphragm to the symphysis pubis. M: CTCW_4 Contrast: 150 mL Omnipaque [address] Dose-Length Product: 1859 mGy*cm CT Dose Reduction Employed: Automated exposure control (AEC) Comparison: CT abdomen pelvis 08/07/2020, chest CT 10/25/2009 RESULT: CHEST: Limitations: None. Lines, tubes, and devices: None. Lung parenchyma and pleura: Bronchial wall thickening Regions of subsegmental and dependent atelectasis No pneumothorax or pleural effusion Thoracic inlet, heart, and mediastinum: No mediastinal hematoma. No lymphadenopathy in the axillary, mediastinal, or hilar regions. The thoracic aorta and main pulmonary artery are normal in caliber. The cardiac chambers are normal in size. Coronary artery atherosclerotic calcifications are noted, although the study is not optimized for coronary assessment. No pericardial effusion or thickening. Prior aortic valve replacement. Dilated ascending aorta 4.2 cm, previously 4 cm. Normal course thoracic aorta. Normal caliber main pulmonary artery. Bones and soft tissues: Subtle infiltrative changes seen by the left infraclavicular region extending towards the axilla, by the subclavian vessels Subcutaneous infiltrative change/edema along the upper back extending to the dorsal shoulders Subcutaneous infiltrative changes at the anterior left lower chest extending to the mid abdominal wall Median sternotomy Acute nondisplaced anterior left 6th rib fracture Acute displaced fracture anterior left 7th rib at the chondral region Subacute nondisplaced anterior left 8th, 9th, 10th rib fractures ABDOMEN: Liver: Steatosis. Biliary: No bile duct dilation. Gallbladder is unremarkable. Spleen: No mass. No splenomegaly. Pancreas: No mass or duct dilation. Adrenals: Stable mild left adrenal nodularity. Kidneys: Subcentimeter lesions that are too small to characterize but likely benign. Additional scarring bilaterally. GI tract: No dilation or wall thickening. Diverticulosis. Normal appendix. Lymph nodes: No abdominal or pelvic lymphadenopathy. Mesentery/Peritoneum: No ascites or mass. Vasculature: The celiac axis and SMA are patent with severe narrowing at the celiac axis artery origin. The portal vein and branches, splenic vein, SMV, and hepatic veins are patent. Diffuse atherosclerotic disease with regions of moderate and severe luminal narrowing of the infrarenal abdominal aorta, and common iliac arteries bilaterally. At least moderate narrowing involving the common femoral arteries bilaterally. Pelvis: No mass, ascites or fluid collection. Bones/Soft Tissues: Degenerative changes. Focal infiltrative changes with couple tiny foci subcutaneous gas anterior mid abdominal wall Localizer images: No additional findings. Thoracic: 12 paired ribs, vertebral body articulating with the first set of ribs designated T1. T7 anterior wedge compression deformity grossly stable from prior chest CT Mild superior plate compression deformity T12, stable from prior CT abdomen pelvis. No new traumatic malalignment. No evidence of acute thoracic spine fracture. Remaining vertebral body and disc heights maintained. No high-grade central canal or neuroforaminal narrowing. Lumbar: Counting reference: Lumbosacral junction. For the purposes of this report, L4-5 is considered the level of the iliac crest. No evidence of traumatic malalignment or acute lumbar spine fracture. Multilevel central canal narrowing, severe-appearing at L4/5 and L3/4. Multilevel at least moderate neuroforaminal narrowing, with severe appearing narrowing right L3/4. IMPRESSION: Acute nondisplaced anterior left 6th, displaced anterior left 7th at the chondral region, and subacute left anterior 8th-10th rib fractures. Associated anterior chest/abdominal wall subcutaneous injury/bruising in these surrounding regions Subtle infiltrative changes left infraclavicular region by the subclavian vessels extending towards the axilla, may reflect injury No evidence of acute lumbar or thoracic spine fracture Nonemergent findings: * Dilated ascending aorta 4.2 cm, previously 4 cm * Diffuse atherosclerotic disease with regions of moderate and severe luminal narrowing of the infrarenal abdominal aorta, and common iliac arteries bilaterally. At least moderate narrowing involving the common (more content not included)... [facility] CT T-SPINE W RECON DATA -NBo n 05-18-2024 CT T-SPINE W RECON DATA -NB * * *Final Report* * * DATE OF EXAM: May 18 2024 8:37AM [facility] 0485 - CT T-SPINE W RECON DATA -NB / PROCEDURE REASON: Spine fracture, thoracic, traumatic * * * * Physician Interpretation * * * * EXAMINATION: CHEST ABDOMEN PELVIS CT WITH CONTRAST Reconstructions CT thoracic and lumbar spine Indication: Stroke symptoms with fall Left chest bruising Technique: Spiral CT acquisition of the chest from the thoracic inlet to the upper abdomen following IV contrast. CT of the abdomen and pelvis was performed using trauma technique, scanning from just above the dome of the diaphragm to the symphysis pubis. M: CTCW_4 Contrast: 150 mL Omnipaque [address] Dose-Length Product: 1859 mGy*cm CT Dose Reduction Employed: Automated exposure control (AEC) Comparison: CT abdomen pelvis 08/07/2020, chest CT 10/25/2009 RESULT: CHEST: Limitations: None. Lines, tubes, and devices: None. Lung parenchyma and pleura: Bronchial wall thickening Regions of subsegmental and dependent atelectasis No pneumothorax or pleural effusion Thoracic inlet, heart, and mediastinum: No mediastinal hematoma. No lymphadenopathy in the axillary, mediastinal, or hilar regions. The thoracic aorta and main pulmonary artery are normal in caliber. The cardiac chambers are normal in size. Coronary artery atherosclerotic calcifications are noted, although the study is not optimized for coronary assessment. No pericardial effusion or thickening. Prior aortic valve replacement. Dilated ascending aorta 4.2 cm, previously 4 cm. Normal course thoracic aorta. Normal caliber main pulmonary artery. Bones and soft tissues: Subtle infiltrative changes seen by the left infraclavicular region extending towards the axilla, by the subclavian vessels Subcutaneous infiltrative change/edema along the upper back extending to the dorsal shoulders Subcutaneous infiltrative changes at the anterior left lower chest extending to the mid abdominal wall Median sternotomy Acute nondisplaced anterior left 6th rib fracture Acute displaced fracture anterior left 7th rib at the chondral region Subacute nondisplaced anterior left 8th, 9th, 10th rib fractures ABDOMEN: Liver: Steatosis. Biliary: No bile duct dilation. Gallbladder is unremarkable. Spleen: No mass. No splenomegaly. Pancreas: No mass or duct dilation. Adrenals: Stable mild left adrenal nodularity. Kidneys: Subcentimeter lesions that are too small to characterize but likely benign. Additional scarring bilaterally. GI tract: No dilation or wall thickening. Diverticulosis. Normal appendix. Lymph nodes: No abdominal or pelvic lymphadenopathy. Mesentery/Peritoneum: No ascites or mass. Vasculature: The celiac axis and SMA are patent with severe narrowing at the celiac axis artery origin. The portal vein and branches, splenic vein, SMV, and hepatic veins are patent. Diffuse atherosclerotic disease with regions of moderate and severe luminal narrowing of the infrarenal abdominal aorta, and common iliac arteries bilaterally. At least moderate narrowing involving the common femoral arteries bilaterally. Pelvis: No mass, ascites or fluid collection. Bones/Soft Tissues: Degenerative changes. Focal infiltrative changes with couple tiny foci subcutaneous gas anterior mid abdominal wall Localizer images: No additional findings. Thoracic: 12 paired ribs, vertebral body articulating with the first set of ribs designated T1. T7 anterior wedge compression deformity grossly stable from prior chest CT Mild superior plate compression deformity T12, stable from prior CT abdomen pelvis. No new traumatic malalignment. No evidence of acute thoracic spine fracture. Remaining vertebral body and disc heights maintained. No high-grade central canal or neuroforaminal narrowing. Lumbar: Counting reference: Lumbosacral junction. For the purposes of this report, L4-5 is considered the level of the iliac crest. No evidence of traumatic malalignment or acute lumbar spine fracture. Multilevel central canal narrowing, severe-appearing at L4/5 and L3/4. Multilevel at least moderate neuroforaminal narrowing, with severe appearing narrowing right L3/4. IMPRESSION: Acute nondisplaced anterior left 6th, displaced anterior left 7th at the chondral region, and subacute left anterior 8th-10th rib fractures. Associated anterior chest/abdominal wall subcutaneous injury/bruising in these surrounding regions Subtle infiltrative changes left infraclavicular region by the subclavian vessels extending towards the axilla, may reflect injury No evidence of acute lumbar or thoracic spine fracture Nonemergent findings: * Dilated ascending aorta 4.2 cm, previously 4 cm * Diffuse atherosclerotic disease with regions of moderate and severe luminal narrowing of the infrarenal abdominal aorta, and common iliac arteries bilaterally. At least moderate narrowing involving the common (more content not included)... [facility] CTA HEAD W IVCONon CTA HEAD W IVCON * * *Final Report* * * DATE OF EXAM: May 18 2024 8:37AM [facility] 0022 - CTA HEAD W IVCON / PROCEDURE REASON: Subarachnoid hemorrhage (SAH) suspected * * * * Physician Interpretation * * * * EXAMINATION: CTA HEAD IV CONTRAST, CTA NECK WITH IV CONTRAST HISTORY: Brain attack. Left facial droop. Focal neuro deficit, stroke suspected. TECHNIQUE: Spiral high resolution axial images were obtained through the head, neck and superior mediastinum following bolus administration of intravenous contrast for CT angiography. 3D maximum intensity projection images were created, reviewed and archived. MQ: CTAHN_4 Contrast: 150 mL Omnipaque [address] Radiation dose: Integrated Dose-Length Product (DLP) for this visit = 1859 mGy*cm. CT Dose Reduction Employed: Automated exposure control (AEC) COMPARISON: CT brain attack 05/18/2024. CTA head/neck 04/15/2024 RESULT: BRAIN: Evaluation of the individual slices of the CTA demonstrates no evidence of an acute stroke. ASPECT Score = 10 Hemorrhage: No evidence of acute intracranial hemorrhage. ECASS hemorrhagic transformation score: Not Applicable Evidence of chronic ischemia in the left posterior cerebral hemisphere and left cerebellum. Evidence of subacute/chronic ischemic change in the right cerebral hemisphere. NECK: Soft tissues: The soft tissue planes are maintained throughout. No evidence of a soft tissue mass in the neck or superior mediastinum. No significant lymphadenopathy is seen. Spine: Alignment is within normal limits. Mild degenerative changes are present. Lung apices: The visualized lung apices are clear. CT ARTERIOGRAM: Extracranial Circulation: Aortic Arch: There is a normal branching pattern from the aortic arch. There is no significant stenosis in the proximal brachiocephalic vessels. Carotid Stenosis: Right Common: No significant stenosis. Right Internal Carotid Artery: There is no arterial stent extending from the distal right common carotid artery into the proximal right internal carotid artery is patent without definite intraluminal stenosis or thrombus. Right Internal Carotid Stenosis (% by NASCET Criteria): 0% Left Common: No significant stenosis. Left Internal Carotid Plaque: Mild atherosclerotic plaque formation. Left Internal Carotid Stenosis (% by NASCET Criteria): 20% or less diameter stenosis of the proximal left internal carotid artery Cervical Vertebral Arteries: Patency: Bilateral Dominance: The right vertebral artery slightly dominant. Intracranial Circulation: Mild calcific atherosclerotic plaque involving bilateral cavernous internal carotid arteries without significant stenosis. The CTA of the head is otherwise unremarkable. There is no evidence of significant stenosis, definite aneurysm, or other vascular abnormality. The distal internal carotid, distal vertebral, basilar, and proximal cerebral arteries are patent. Entry Level Marketing Assistant (topogram) images: Unremarkable. IMPRESSION: 1. No evidence of large vessel occlusion or severe stenosis in the head or neck. 2. Mild atherosclerotic stenosis in the proximal left internal carotid artery measuring 20% or less diameter stenosis and stable. 3. A right distal common-proximal internal carotid artery stent which is patent without stenosis or occlusion. 4. Mild atherosclerotic disease of the bilateral cavernous internal carotid arteries without significant stenosis. 5. Mild degenerative changes of the cervical spine. 6. Chronic ischemic changes in the posterior left cerebral hemisphere and left cerebellar hemisphere. Subacute/chronic ischemic changes in the right cerebral hemisphere. 7. CTA head and neck is otherwise unremarkable. Arterial blood flow was measured to detect acute large vessel occlusion by computer aided detection software: Right MCA. Concordance between software and imaging review: Discordant. Inspector Tester Sorter: MILTON Transcribe Date/Time: May 18 2024 8:44A Dictated by : LISA CASTANEDA MD This examination was interpreted and the report reviewed and electronically signed by: LISA CASTANEDA MD on May 18 2024 9:00AM EST [id number] [facility] CTA NECK W IVCONon CTA NECK W IVCON * * *Final Report* * * DATE OF EXAM: May 18 2024 8:37AM [facility] 0024 - CTA NECK W IVCON / PROCEDURE REASON: Headache, sudden, severe * * * * Physician Interpretation * * * * EXAMINATION: CTA HEAD IV CONTRAST, CTA NECK WITH IV CONTRAST HISTORY: Brain attack. Left facial droop. Focal neuro deficit, stroke suspected. TECHNIQUE: Spiral high resolution axial images were obtained through the head, neck and superior mediastinum following bolus administration of intravenous contrast for CT angiography. 3D maximum intensity projection images were created, reviewed and archived. MQ: CTAHN_4 Contrast: 150 mL Omnipaque [address] Radiation dose: Integrated Dose-Length Product (DLP) for this visit = 1859 mGy*cm. CT Dose Reduction Employed: Automated exposure control (AEC) COMPARISON: CT brain attack 05/18/2024. CTA head/neck 04/15/2024 RESULT: BRAIN: Evaluation of the individual slices of the CTA demonstrates no evidence of an acute stroke. ASPECT Score = 10 Hemorrhage: No evidence of acute intracranial hemorrhage. ECASS hemorrhagic transformation score: Not Applicable Evidence of chronic ischemia in the left posterior cerebral hemisphere and left cerebellum. Evidence of subacute/chronic ischemic change in the right cerebral hemisphere. NECK: Soft tissues: The soft tissue planes are maintained throughout. No evidence of a soft tissue mass in the neck or superior mediastinum. No significant lymphadenopathy is seen. Spine: Alignment is within normal limits. Mild degenerative changes are present. Lung apices: The visualized lung apices are clear. CT ARTERIOGRAM: Extracranial Circulation: Aortic Arch: There is a normal branching pattern from the aortic arch. There is no significant stenosis in the proximal brachiocephalic vessels. Carotid Stenosis: Right Common: No significant stenosis. Right Internal Carotid Artery: There is no arterial stent extending from the distal right common carotid artery into the proximal right internal carotid artery is patent without definite intraluminal stenosis or thrombus. Right Internal Carotid Stenosis (% by NASCET Criteria): 0% Left Common: No significant stenosis. Left Internal Carotid Plaque: Mild atherosclerotic plaque formation. Left Internal Carotid Stenosis (% by NASCET Criteria): 20% or less diameter stenosis of the proximal left internal carotid artery Cervical Vertebral Arteries: Patency: Bilateral Dominance: The right vertebral artery slightly dominant. Intracranial Circulation: Mild calcific atherosclerotic plaque involving bilateral cavernous internal carotid arteries without significant stenosis. The CTA of the head is otherwise unremarkable. There is no evidence of significant stenosis, definite aneurysm, or other vascular abnormality. The distal internal carotid, distal vertebral, basilar, and proximal cerebral arteries are patent. Entry Level Marketing Assistant (topogram) images: Unremarkable. IMPRESSION: 1. No evidence of large vessel occlusion or severe stenosis in the head or neck. 2. Mild atherosclerotic stenosis in the proximal left internal carotid artery measuring 20% or less diameter stenosis and stable. 3. A right distal common-proximal internal carotid artery stent which is patent without stenosis or occlusion. 4. Mild atherosclerotic disease of the bilateral cavernous internal carotid arteries without significant stenosis. 5. Mild degenerative changes of the cervical spine. 6. Chronic ischemic changes in the posterior left cerebral hemisphere and left cerebellar hemisphere. Subacute/chronic ischemic changes in the right cerebral hemisphere. 7. CTA head and neck is otherwise unremarkable. Arterial blood flow was measured to detect acute large vessel occlusion by computer aided detection software: Right MCA. Concordance between software and imaging review: Discordant. Inspector Tester Sorter: MILTON Transcribe Date/Time: May 18 2024 8:44A Dictated by : LISA CASTANEDA MD This examination was interpreted and the report reviewed and electronically signed by: LISA CASTANEDA MD on May 18 2024 9:00AM EST [id number] [facility] Comprehensive metabolic 2000 panelon 05-18-2024 Albumin [Mass/Vol] 3.9 g/dL Normal 3.9-4.9 [facility] Comment on above: Order Comment: Speci men Type: BLOOD SPECIMENOrdering Facility: [facility] Address: [address] [place] [address] Performed By: #### 3 040-3, 51051-8 ####[facility] LABORATORYCLIA [id number] [place] [address] [place] ALP [Catalytic activity/Vol] 178 U/L High 38-113 [facility] Comment on above: Order Comment: Speci men Type: BLOOD SPECIMENOrdering Facility: [facility] Address: [address] [place] [address] Performed By: #### 3 040-3, 48657-6 ####[facility]ATORYCLIA [id number] [place] [address] [place] ALT With P-5'-P [Catalytic activity/Vol] 37 U/L Normal 10-54 [facility] Comment on above: Order Comment: Speci men Type: BLOOD SPECIMENOrdering Facility: [facility] Address: [address] [place] [address] Performed By: #### 3 040-3, 39184-1 ####[facility]ORATORYCLIA [id number] [place] [address] [place] Anion gap [Moles/Vol] 11 mmol/L Normal 8-15 [facility] Comment on above: Order Comment: Speci men Type: BLOOD SPECIMENOrdering Facility: [facility] Address: [address] [place] [address] Performed By: #### 3 040-3, 28952-8 ####[facility]ORYCLIA [id number] [place] [address] [place] AST With P-5'-P [Catalytic activity/Vol] 38 U/L Normal 14-40 [facility] Comment on above: Order Comment: Speci men Type: BLOOD SPECIMENOrdering Facility: [facility] Address: [address] [place] [address] Performed By: #### 3 040-3, 61517-4 ####[facility] LABORATORYCLIA [id number] [place] [address] [place] Bilirubin [Mass/Vol] 0.5 mg/dL Normal 0.2-1.3 [facility] Comment on above: Order Comment: Speci men Type: BLOOD SPECIMENOrdering Facility: [facility] Address: [address] [place] [address] Performed By: #### 3 040-3, 41549-7 ####[facility] LABORATORYCLIA [id number] [place] [address] [place] Calcium [Mass/Vol] 9.9 mg/dL Normal 8.5-10.2 [facility] Comment on above: Order Comment: Speci men Type: BLOOD SPECIMENOrdering Facility: [facility] Address: [address] [place] [address] Performed By: #### 3 040-3, 95107-4 ####[facility]ORATORYCLIA [id number] [place] [address] [place] Chloride [Moles/Vol] 103 mmol/L Normal 98-107 [facility] Comment on above: Order Comment: Speci men Type: BLOOD SPECIMENOrdering Facility: [facility] Address: [address] [place] [address] Performed By: #### 3 040-3, ####[facility]ORATORYCLIA [id number] [place] [id number] [place] CO2 [Moles/Vol] 25 mmol/L Normal 22-30 [facility] Comment on above: Order Comment: Speci men Type: BLOOD SPECIMENOrdering Facility: [facility] Address: [address] [place] [address] Performed By: #### 3 -3, ####[facility]ORATORYCLIA [id number] [place] [address] [place] Creatinine [Mass/Vol] 1.40 mg/dL High 0.73-1.22 [facility] Comment on above: Order Comment: Speci men Type: BLOOD SPECIMENOrdering Facility: [facility] Address: [address] [place] [address] Performed By: #### 3 , ####[facility] LABORATORYCLIA [id number] [address] [place] [facility] Creatinine and Glomerular filtration rate.predicted panel (S/P/Bld) 52 mL/min/1.73m??? Low >=60 [facility] Comment on above: Order Comment: Speci men Type: BLOOD SPECIMENOrdering Facility: [facility] Address: [address] [place] [address] Result Comment: Bianca mated Glomerular Filtration Rate (eGFR) is calculated using the 2020 CKD-EPI creatinine equation. This equation utilizes serum creatinine, sex, and age as parameters. The creatinine assay has traceable calibration to isotope dilution-mass spectrometry. Refer to KDIGO guidelines for clinical interpretation. In patients with unstable renal function, e.g. those with acute kidney injury, the eGFR may not accurately reflect actual GFR. Performed By: #### 3 040-3, ####[facility]ORATORYCLIA [id number] [place] [id number] [place] Glucose [Mass/Vol] 101 mg/dL High 74-99 [facility] Comment on above: Order Comment: Lyndsey men Type: BLOOD SPECIMENOrdering Facility: [facility] Address: [address] [place] [address] Result Comment: The [place] Diabetes [employer] (ADA) provides guidance for cutoff values for fasting glucose and random glucose. The ADA defines fasting as no caloric intake for at least 8 hours. Fasting plasma glucose results between 100 to 125 mg/dL indicate increased risk for diabetes (prediabetes). Fasting plasma glucose results greater than or equal to 126 mg/dL meet the criteria for diagnosis of diabetes. In the absence of unequivocal hyperglycemia, results should be confirmed by repeat testing. In a patient with classic symptoms of hyperglycemia or hyperglycemic crisis, random plasma glucose results greater than or equal to 200 mg/dL meet the criteria for diagnosis of diabetes. Reference: Standards of Medical Care in Diabetes 2016, [place] [employer] Association. Diabetes Care. 2016.39(Suppl 1). Performed By: #### 3 040-3, 09393-6 ####[facility] LABORATORYCLIA [id number] [place] [address] [place] Potassium [Moles/Vol] 5.2 mmol/L High 3.7-5.1 [facility] Comment on above: Order Comment: Lyndsey eller Type: BLOOD SPECIMENOrdering Facility: [facility] Address: [address] [place] [address] Performed By: #### 3 040-3, 15356-0 ####[facility]ORATORYCLIA [id number] [place] [address] [place] Protein [Mass/Vol] 7.4 g/dL Normal 6.3-8.0 [facility] Comment on above: Order Comment: Rosii men Type: BLOOD SPECIMENOrdering Facility: [facility] Address: [address] [place] [address] Performed By: #### 3 040-3, 41863-0 ####[facility]ORATORYCLIA [id number] [place] [address] [place] Sodium [Moles/Vol] 139 mmol/L Normal 136-144 [facility] Comment on above: Order Comment: Speci men Type: BLOOD SPECIMENOrdering Facility: [facility] Address: [address] [place] [address] Performed By: #### 3 040-3, 51092-9 ####[facility]ORATORYCLIA [id number] [place] [address] [facility] Urea nitrogen [Mass/Vol] 21 mg/dL Normal 9-24 [facility] Comment on above: Order Comment: Speci men Type: BLOOD SPECIMENOrdering Facility: [facility] Address: [address] [place] [id number] Performed By: #### 3 040-3, 24232-3 ####[facility] LABORATORYCLIA [id number] [place] [id number] [facility] ECG COMPLETEon 05-18-2024 ECG COMPLETE Ventricular Rate : 4 5 BPM Atrial Rate : 45 BPM P-R Interval : 172 ms QRS Duration : 80 ms Q-T Interval : 456 ms QTC Calculation(Bazett) : 394 ms Calculated P [place] : 70 degrees Calculated R [place] : 62 degrees Calculated T [place] : 81 degrees SINUS BRADYCARDIA WITH PREMATURE ATRIAL COMPLEXES LOW VOLTAGE QRS BORDERLINE ECG WHEN COMPARED WITH ECG OF 18-May-2024 08:34, PREMATURE ATRIAL COMPLEXES ARE NOW PRESENT VENT. RATE HAS DECREASED by 22 bpm CRITERIA FOR SEPTAL INFARCT ARE NO LONGER PRESENT QT HAS SHORTENED Confirmed by MD STEVEN VINAYAK ([id number]) on 05/21/2024 9:45:23 PM NAME : JONATHON PERALES PID : [id number] : 1950 Gender : Male Race : ORD : [id number] Procedure Date : May 18 2024 18:18:48 Edit Date : May 21 2024 21:45:25 Diagnosis: SINUS BRADYCARDIA WITH PREMATURE ATRIAL COMPLEXES LOW VOLTAGE QRS BORDERLINE ECG WHEN COMPARED WITH ECG OF 18-May-2024 08:34, PREMATURE ATRIAL COMPLEXES ARE NOW PRESENT VENT. RATE HAS DECREASED by 22 bpm CRITERIA FOR SEPTAL INFARCT ARE NO LONGER PRESENT QT HAS SHORTENED Confirmed by MD STEVEN VINAYAK ([id number]) on 05/21/2024 9:45:23 PM Test Reason : Arrhythmia Location : [address] : [place] [address] Overread By : MD STEVEN VINAYAK Edited By : MD STEVEN VINAYAK Referred By : , Acquired by : ISSA BOONE [facility] ECG COMPLETE Ventricular Rate : 6 7 BPM Atrial Rate : 67 BPM P-R Interval : 152 ms QRS Duration : 80 ms Q-T Interval : 422 ms QTC Calculation(Bazett) : 445 ms Calculated P [place] : 67 degrees Calculated R [place] : 68 degrees Calculated T [place] : 81 degrees SINUS RHYTHM WITH MARKED SINUS ARRHYTHMIA SEPTAL INFARCT , AGE UNDETERMINED ABNORMAL ECG WHEN COMPARED WITH ECG OF 22-Feb-2023 22:41, PREMATURE ATRIAL COMPLEXES ARE NO LONGER PRESENT QUESTIONABLE CHANGE IN QRS AXIS T WAVE INVERSION NO LONGER EVIDENT IN INFERIOR LEADS Confirmed by DO BENDER ROHIT ([id number]) on 05/18/2024 8:44:32 AM NAME : JONATHON PERALES PID : [id number] : 1950 Gender : Male Race : ORD : [id number] Procedure Date : May 18 2024 08:34:40 Edit Date : May 18 2024 08:44:33 Diagnosis: SINUS RHYTHM WITH MARKED SINUS ARRHYTHMIA SEPTAL INFARCT , AGE UNDETERMINED ABNORMAL ECG WHEN COMPARED WITH ECG OF 22-Feb-2023 22:41, PREMATURE ATRIAL COMPLEXES ARE NO LONGER PRESENT QUESTIONABLE CHANGE IN QRS AXIS T WAVE INVERSION NO LONGER EVIDENT IN INFERIOR LEADS Confirmed by DO BENDER ROHIT ([id number]) on 05/18/2024 8:44:32 AM Test Reason : Arrhythmia Location : 4 : [facility] Overread By : DO BENDER ROHIT Edited By : DO BENDER ROHIT Referred By : , Acquired by : MANDEEP SANTIZO [facility] ED PROV NOTEon 05-18-2024 ED PROV NOTE HNO ID: [id number] Author: HAROLDO BENDER DO Service: Emergency Medicine Author Type: Physician Type: ED Provider Notes Filed: 05/21/2024 19:40 Note Text: Attending Note I evaluated the patient and personally participated in the serna components. I agree with the resident's findings and plan as documented and have discussed the case and management of the patient's care with the resident. This is a 74-year-old male brought in by EMS after a fall. Apparently at 7:16 AM, he was at his senior care when he slipped in some water and fell down. He hit his head. No reported loss of consciousness. He was found to have a left facial droop, difficulty speaking and left-sided weakness after the fall. EMS advised us that they were concerned about a stroke. EMS called us again and stated that the patient has a new bruise on his chest with pain as well as neck pain. They placed a cervical collar. He apparently had a stroke within the past 2 months. He is also on Plavix and heparin. They reported that he did not have any deficits prior to falling. The patient denies headache or dizziness. He has pain in the left side of his chest. No abdominal pain. No nausea or vomiting. He has weakness on his left side. No other complaints. He is awake alert oriented x 3. There is some dysarthria. Head normocephalic. There is an abrasion superior to the right eyebrow. Pupils equal and reactive to light. Extraocular movements intact. Pharynx clear and patent. No stridor. Lungs clear bilaterally. Heart regular rate and rhythm no murmurs. There is tenderness to palpation of the left anterior lower chest wall with abrasion noted. No subcutaneous air palpated. Abdomen soft nontender nondistended. No palpable masses. There is old bruising from the heparin on the lower abdomen. He moves his right arm and right leg without difficulty. There is left upper extremity ataxia and drift in the left lower extremity. Distal pulses intact and equal. No leg swelling or calf tenderness. Cranial nerves II through XII grossly intact with the exception of left cranial nerve VII. There is a slight left facial droop. GCS 15. NIH 6 for left facial droop, dysarthria, left upper extremity ataxia, left lower extremity drift, decreased sensation on the left side and neglect. There is generalized tenderness of the spine without step-offs. Gluteal squeeze is normal. No cyanosis of the skin. The patient was initially thought to be a stroke team. As a result, we called the stroke team but canceled the stroke team after the update from EMS. This seemed more like a trauma as the patient's symptoms occurred after he hit his head. As a result, a trauma category 2 was called. The patient was evaluated by the ED and trauma staff. The trauma attending was in the room. The patient was taken to the CT scanner. We had arranged for the patient to get a CT angiogram of the head and neck and placed the CT brain as a brain attack. After the CT brain did not show a bleed, we elected to call a stroke team. The patient stated that he did not have any deficits when he was transferred from [facility] to the [facility]. This was confirmed with the documentation in the computer. I discussed the patient's symptoms with the stroke neurologist. It was determined that the patient is not a candidate for TNK or intervention. The plan is to keep the patient's blood pressure between 140 and 160 systolic. He can be admitted to the medical floor. We are still waiting for the remainder of the imaging to come back to determine if there are any traumatic injuries. Disposition pending. Critical Care I spent a total of 30 minutes of critical care time in the evaluation and management of this patient. 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 The patient received Consultation by trauma and stroke teams during the time that critical care was provided.I discussed the plan of care with the RESIDENT and agree with the findings documented. Critical care time excludes separately billed procedures. DO YULIA Rosas ROHIT S 05/21/241939 [facility] ED PROV NOTE HNO ID: [id number] Author: HAROLDO BENDER DO Service: Emergency Medicine Author Type: Physician Type: ED Provider Notes Filed: 05/21/2024 18:40 Note Text: ED Provider Note Patient Name: Jonathon Perales : 1950 SERVICE DATE: 05/18/24 History Patient presents with: Trauma: [facility], denies any LOC, pt reports neck pain and bruising noted to L-chest wall, per EMS pt noted to have slurred speech, L-sided facial droop and L-sided weakness. Pt with recent stroke and received TNK. Pt arrives to ED A/OX3 at this time. This is a 74-year-old male brought to the ED by EMS following a fall. Patient's PMH is significant for right MCA on 04/15/24, s/p TNK, s/p thrombectomy. Patient was eventually discharged to [facility], and to senior care few days ago. He reports that he was walking on a wet floor when he accidentally tripped and fell. Initial call from EMS. Patient was noted to have left facial droop, difficulty speaking, left-sided weakness following a fall. Stroke team was initiated, however EMS called again and noted that patient has left-sided lower ribs ecchymosis, and pain. Patient is on subcu heparin, and Plavix. Level 2 trauma activation at this point. 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 03/25/2018 CAD (coronary artery disease) Cataract Cerebellar stroke (HCC) CKD (chronic kidney disease) CVA (cerebral vascular accident) (HCC) Depression ED (erectile dysfunction) Essential hypertension H/O aortic valve replacement Hiatal hernia 02/21/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 HTN (hypertension) Hyperlipemia Hyperlipidemia Kidney stone Leukocytosis 04/16/2024 LVH (left ventricular hypertrophy) MDD (major depressive disorder) Need for SBE (subacute bacterial endocarditis) prophylaxis Bioprothestic AoV JAIRO (obstructive sleep apnea) S/P AVR bioprosthetic S/P CABG (coronary artery bypass graft) SVG-OM1 Seasonal allergic rhinitis Stroke (HCC) TIA (transient ischemic attack) Tubular adenoma of colon 05/06/2002 Vitamin B12 deficiency Vitamin D deficiency PAST SURGICAL HISTORY Procedure Laterality Date CARDIAC CATH 01/2018 CORONARY ARTERY BYPASS GRAFT HX SVG-OM1 EGD WITH BIOPSY(S) 03/25/2018 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 Zazueta EGD WITH BIOPSY(S) 01/13/2013 Dr. 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 Everett F COLONOSCOPY WITH POLYPECTOMY 05/06/2002 tubular adenoma; chronic colitis; Dr. Garcia F COLONOSCOPY WITH POLYPECTOMY 12/08/2018 tubular adenoma; Dr. Zazueta SHX AORTIC VALVE REPLACEMENT Bioprosthetic valve FAMILY HISTORY Problem Relation Age of Onset Heart disease Mother Breast Cancer Mother other (back) Mother Heart disease Father Coronary Artery Disease Father Alcohol/Drug Father other (kidney) Father Breast Cancer Sister Hypertension Sister No Known Problems Sister Social History Tobacco Use Smoking status: Not on file Smokeless tobacco: Never Vaping Use Vaping Use: Never used Substance and Sexual Activity Alcohol use: No Drug use: No Sexual activity: Not on file ALLERGIES Allergen Reactions Percocet [Oxycodone* Mental Status Change HALLUCINATIONS Review of Systems Constitutional: Negative for chills, diaphoresis and fever. Eyes: Negative for visual disturbance. Respiratory: Negative for shortness of breath and wheezing. Cardiovascular: Negative for chest pain and palpitations. Gastrointestinal: Negative for abdominal pain, diarrhea, nausea and vomiting. Genitourinary: Negative for dysuria and flank pain. Neurological: Negative for syncope, weakness, light-headedness and headaches. Psychiatric/Behavioral : Negative for confusion. Physical Exam Vitals BP Pulse Temp Temp src Resp SpO2 Weight Height 05/18/24 0806 05/18/24 0808 05/18/24 0809 05/18/24 0809 05/18/24 0808 05/18/24 0807 -- -- 164/82 82 (!) 35.8 ?C (96.5 ?F) Axillary 20 98 % Physical Exam Constitutional: Appearance: He is obese. He is not toxic-appearing. HENT: Head: No raccoon eyes, Crowe's sign, abrasion, contusion or laceration. Right Ear: No hemotympanum. Left Ear: No hemotympanum. Nose: No septal deviation or rhinorrhea. Right Nostril: No epistaxis or septal hematoma. Left Nostril: No epistaxis or septal hematoma. Mouth/Throat: Mouth: Mucous membranes are moist. Eyes: Conjunctiva/sclera: Right eye: No hemorrhage. Left eye: No hemorrhage. Pupils: Pupils are equal, round, and reactive to light. Right eye: Pupil is reactive. Left eye: Pupil is reactive. Neck: Trachea: No tracheal deviation. Cardiovascular: Pulses: Radial pulses are 2+ on the right side (more content not included)... [facility] Ethanol [facility] Ethanol [Mass/Vol] mg/dL Normal <11 [facility] Comment on above: Order Comment: Speci men Type: BLOOD SPECIMENOrdering Facility: [facility] Address: [address] [place] [address] Performed By: #### 5 643-2 ####[facility]ORATORYCLIA [id number] [address] HIGH SENSITIVITY TROPONIN To n 05-18-2024 Troponin T.cardiac High sensitivity method [Mass/Vol] 27 ng/L High <12 [facility] Comment on above: Order Comment: Speci men Type: BLOOD SPECIMENOrdering Facility: [facility] Address: [address] [place] [address] Performed By: #### H STNT ####[facility]ATORYCLIA [id number] [address] HIGH SENSITIVITY TROPONIN T (INITIAL)on 05-18-2024 Troponin T.cardiac High sensitivity method [Mass/Vol] 30 ng/L High <12 [facility] Comment on above: Order Comment: Speci men Type: BLOOD SPECIMENOrdering Facility: [facility] Address: [address] [place] [address] Performed By: #### L [id number] ####[facility]ATORYCLIA [id number] [address] HIGH SENSITIVITY TROPONIN T (SECOND)on 05-18-2024 Troponin T.cardiac High sensitivity method [Mass/Vol] 27 ng/L High <12 [facility] Comment on above: Order Comment: Speci men Type: BLOOD SPECIMENOrdering Facility: [facility] Address: [address] [place] [address] Performed By: #### L [id number] ####[facility]ATORYCLIA [id number] [address] HIGH SENSITIVITY TROPONIN T (THIRD) 3 HRS AFTER INITIALon 05-18-2024 Troponin T.cardiac High sensitivity method [Mass/Vol] 29 ng/L High <12 [facility] Comment on above: Order Comment: Speci men Type: BLOOD SPECIMENOrdering Facility: [facility] Address: [address] [place] [address] Performed By: #### L [id number] ####[facility]ORATORYCLIA [id number] [place] [id number] [facility] HISTORY PHYSICALon HISTORY PHYSICAL HNO ID: [id number] Author: GIORGIO GRAHAM MD Service: Trauma Author Type: Resident Type: H&P Filed: 06/02/2024 04:57 Note Text: Attestation signed by Giorgio Graham MD at 06/02/2024 4:57 AM Trauma Attending Note I have personally seen and evaluated this patient and participated in the serna components of this encounter. I discussed the management of this case with the surgery resident team and independently confirmed the findings and plan of care as documented either attached or in their separate note from today. Any corrections or additional notes are made as needed. I evaluated the patient on May 18, 2024 and 0805 am. Assessment and Plan: Jonathon Perales is a 74 year old male evaluated following a Level 2 activation for ground level fall The patient was evaluated according to ATLS protocols. Injuries and diagnoses are notable for: Ground level fall Dysphagia, facial droop, left-sided weakness Chest pain, back pain, abrasions to face, forearm and trunk Findings from trauma evaluation: Subacute and chronic areas of infarct right cerebral hemisphere Degenerative changes of cervical spine Left sixth rib fracture nondisplaced Left seventh displaced anterior rib fracture Subacute left anterior 8 through [address] evidence as well as physical exam evidence of chest and abdominal wall subcutaneous bruising and injury Diffuse atherosclerotic disease of infra abdominal aorta and iliac arteries bilaterally Dilated ascending aorta Admit, resume home medications, multimodal pain management, aggressive pulmonary toilet, interval chest x-ray, will need PT OT evaluation extensive incidental findings as noted above Giorgio Graham MD Delayed entry TRAUMA SURGERY [facility] ARRIVAL DATE: 05/18/2024 ARRIVAL TIME: 8:20 AM CATEGORY: Level 2 INJURY DATE: 05/18/2024 INJURY TIME: AM Subjective 74 year old male s/p GLF. Prior hx of CVA. Pt reportedly slipped in water and fell hitting his head but no reported LOC. Noted to have facial droop, difficulty speaking, and L sided weakness by EMS. GCS at Scene was 15. Patient Aox3 on arrival. Complaining of chest wall pain and back pain. HPI/CHIEF COMPLAINT: GLF BRIEF DESCRIPTION OF INJURIES: Scattered ecchymoses and superficial abrasions to the face forearm and trunk LAST FLUIDS/MEAL: unkown CODE STATUS: Not discussed ALLERGIES Allergen Reactions Percocet [Oxycodone* Mental Status Change HALLUCINATIONS (Not in a hospital admission) DATE OF LAST TETANUS: unknown. 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 03/25/2018 CAD (coronary artery disease) Cataract Cerebellar stroke (HCC) CKD (chronic kidney disease) CVA (cerebral vascular accident) (HCC) Depression ED (erectile dysfunction) Essential hypertension H/O aortic valve replacement Hiatal hernia 02/21/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 HTN (hypertension) Hyperlipemia Hyperlipidemia Kidney stone Leukocytosis 04/16/2024 LVH (left ventricular hypertrophy) MDD (major depressive disorder) Need for SBE (subacute bacterial endocarditis) prophylaxis Bioprothestic AoV JAIRO (obstructive sleep apnea) S/P AVR bioprosthetic S/P CABG (coronary artery bypass graft) SVG-OM1 Seasonal allergic rhinitis Stroke (HCC) TIA (transient ischemic attack) Tubular adenoma of colon 05/06/2002 Vitamin B12 deficiency Vitamin D deficiency PAST SURGICAL HISTORY Procedure Laterality Date CARDIAC CATH 01/2018 CORONARY ARTERY BYPASS GRAFT HX SVG-OM1 EGD WITH BIOPSY(S) 03/25/2018 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 Zazueta EGD WITH BIOPSY(S) 01/13/2013 Dr. 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 Everett F COLONOSCOPY WITH POLYPECTOMY 05/06/2002 tubular adenoma; chronic colitis; Dr. Garcia F COLONOSCOPY WITH POLYPECTOMY 12/08/2018 tubular adenoma; Dr. Zazueta SHX AORTIC VALVE REPLACEMENT Bioprosthetic valve Social History Tobacco Use Smokeless tobacco: Never Vaping Use Vaping Use: Never used Substance Use Topics Alcohol use: No Drug use: No FAMILY HISTORY Problem Relation Age of Onset Heart disease M (more content not included)... Normal [facility] Lipase SerPl-cCncon 05-18-20 24 Lipase [Catalytic activity/Vol] 27 U/L Normal 16-61 [facility] Comment on above: Order Comment: Speci men Type: BLOOD SPECIMENOrdering Facility: [facility] Address: [address] [place] [address] Performed By: #### 3 040-3, 93704-0 ####[facility] LABORATORYCLIA [id number] [place] [address] [place] PT panel Coag (PPP)on 2023 INR Coag (PPP) [Relative time] 1.0 {INR} Normal 0.9-1.3 [facility] Comment on above: Order Comment: Speci men Type: BLOOD SPECIMENOrdering Facility: [facility] Address: [address] [place] [address] Result Comment: Violette min K Antagonist (VKA) Therapeutic Range: INR 2 to 3 (Target INR of 2.5) Note: For patients treated with VKA drugs, such as warfarin, the [employer] 2012 Guideline recommends a therapeutic INR range of 2 to 3 (target INR of 2.5). This recommendation includes high-risk patients with antiphospholipid syndrome with previous arterial or venous thromboembolism, current-generation mechanical or bioprosthetic aortic heart valve replacement. Note: Patients with mechanical aortic valve replacement and additional risk factors for thromboembolic events (atrial fibrillation, previous thromboembolism, LV dysfunction, hypercoagulable conditions) or an older generation mechanical AVR (i.e., ball in-Cage) or any mechanical MVR should have a INR therapeutic range of 2.5 to 3.5 (target INR of 3). Dasia GH, et al. Chest 2012, 141:7S-47S Janice HAWKINS et al. [facility] 2017, 70: 252-289 Performed By: #### 3 4528-0, 20254-0 ####[facility] LABORATORYCLIA [id number] [address] OF [facility] PT Coag (PPP) [Time] 10.6 s Normal 9.7-13.0 [facility] Comment on above: Order Comment: Speci men Type: BLOOD SPECIMENOrdering Facility: [facility] Address: [address] [place] [address] Performed By: #### 3 4528-0, 79326-3 ####[facility]ORATORYCLIA [id number] [address] THERAPY NTon 05-18-2024 THERAPY NT HNO ID: [id number] Author: SHAHID PONCE CCC-CAT OPERATOR Service: Speech/Swallow Author Type: Speech Language Pathologist Type: Therapy (PT/OT/Speech/Resp) Filed: 05/18/2024 16:15 Note Text: Speech Therapy Clinical Swallow Evaluation SERVICE DATE: 05/18/2024 SERVICE TIME: 1530 to 1550 ROOM: [id number] IMPRESSION: Swallow Deficits Identified / Suspected: Oropharyngeal dysphagia - patient with recent history of dysphagia, aspiration of thin liquids on recent MBSS following stroke in April 2024. Recommend the modified diet mentioned below. Diet Recommendations: Minced and Moist IDDSI Level 5 Mildly Thick Liquids IDDSI Level 2 (Maurice Thick) Medications whole in puree (pudding/applesauce) Swallowing Precautions Recommendations: Alert (patient should be fully alert for P.O. intake) Sit upright 90 degrees for all PO Small Bite/Sip Alternate bites and sips Feed / Eat at a slow rate Nursing Recommendations: Reinforce use of swallowing strategies, See swallow guide posted in patients room Recommended Discharge Disposition: Subacute/SNF Justification for Recommended Discharge Disposition: Patient requires daily, facility-based rehabilitation from at least one discipline due to:, dysphagia requiring frequent assessment and diet modification, requires active, intensive and ongoing intervention of multiple therapy disciplines Current Hospital Course: 05/18 CT brain with no evidence of acute intracranial process. Rehabilitation Precautions: Aspiration Precautions Reason for Speech Therapy Consult: ground level fall, hit head, fractured ribs Relevant Past Medical History: CVA 04/2024 Response to Therapy Interventions: Good Participation in activities Subjective: The patient is awake, talking in full sentences and able to participate with swallow evaluation. Current Status Oral Hygiene: Clear, moist oral cavity, Oral Health Assessment Tool (OHAT) Dentition: Edentulous Current Feeding Method: Oral Current Diet Textures: NPO Current Level Of Communication: Verbal Current Management Of Secretions: Able to self-manage Oral Motor Exam: Within Functional Limits Except Facial Symmetry Impaired: Left Labial Assessment: Poor labial seal, Generalized weakness Labial ROM Impaired: Left Labial Strength Impaired: Left Lingual Assessment: Generalized weakness Oral Health Assessment Tool (OHAT) Lips: 0 Tongue: 0 Gums and Tissues: 0 Saliva: 0 Natural Teeth: 2 Dentures: N/A Oral Cleanliness: 0 Dental Pain: 0 OHAT Total Score: 2 Swallow Position Of Patient During Assessment: Upright In Bed Consistencies Presented: Thin Liquids IDDSI Level 0, Pureed IDDSI Level 4, Solid Compensatory Strategies Utilized During Assessment: Alert (patient should be fully alert for P.O. intake), Sit upright 90 degrees for all PO, Small Bite/Sip, Alternate bites and sips Previous Swallow Study: [facility] (05/13/24 minced diet/nectar thick liquids) Clinical Swallow Oral Pharyngeal Swallow Assessment: Within Functional Limits Except Preparatory / Oral Phase: Within Functional Limits Except Mastication: Suspect impairment Bolus Manipulation: Suspect impairment A-P Transit: Suspect impairment Oral Residue: Mildly Impaired Pharyngeal Phase: Within Functional Limits Except Initiation of Swallow: Suspect impairment Reflexive Throat Clear and Cough after Swallowing: No Multiple Swallows: No Patient with clear vocal quality No excess oral or pharyngeal secretions Able to feed himself with mild assist for tray set up, opening containers and cutting food Patient demonstrates slow chewing of solid due to no teeth with mild oral pocketing; greater success when moistening agent (applesauce) added to the dry solid No signs/symptoms of aspiration with nectar-thick liquid, puree or minced solid Recommend the minced diet and nectar-thick liquids - medications whole in applesauce Patient will benefit from Speech Therapy to implement swallow strategies and for oral pharyngeal strengthening Patient /Caregiver Goals: Eat/Drink Without Restrictions Goals for Plan of Care: Goals: SWALLOWING: Patient / Caregiver will demonstrate knowledge of taught compensatory strategies and dietary consistency recommendations to optimize functional swallow function without overt clinical signs and symptoms of aspiration or dysphagia Swallow Goals: Patient will tolerate Minced and Moist IDDSI Level 5 diet consistency while utilizing compensatory/swallowin g strategies given minimal cues in 90% of trials so that the patient will minimize the signs/symptoms of dysphagia. Patient will tolerate Mildly Thick Liquids IDDSI Level 2 (Maurice Thick) consistency while utilizing compensatory/swallowin g strategies given minimal cues in 90% of trials so that the patient will minimize the signs/symptoms of dysphagia. Patient, Caregiver will demonstrate adequate return of knowledge of all compensatory strategies/instruction (more content not included)... Normal [facility] THERAPY NT HNO ID: [id number] Author: MATY WOLF, PT Service: Physical Therapy Author Type: Physical Therapist Type: Therapy (PT/OT/Speech/Resp) Filed: 05/18/2024 15:22 Note Text: Physical Therapy Evaluation Summary SERVICE DATE: 05/18/2024 SERVICE TIME: 1422 to 1452 ROOM: [place] [address] PT 6 Clicks Score: 17 DISCHARGE RECOMMENDATIONS Subacute/SNF Recommended Discharge Disposition Comments: Recommend return to SNF for ongoing therapies at d/c Recommended Discharge Disposition Due to: Functional deficits requiring ongoing therapy service prior to discharge home., Functional status decline, Balance deficits ASSESSMENT Response to Therapy Interventions: Cognitive Deficits, Good Participation in Activities Patient had difficutly giving clear hx or explaining his recent hospitalization and rehab from recent stroke. PRECAUTIONS Bed/Chair Alarm, Fall Risk CURRENT HOSPITAL COURSE Per chart review, pt with witness ed fall at SNF. In Ed pt with facial droop, L side weakness (had large stroke 04/2024 and was at [facility] and then transitioned to SNF), tele medicine Neuro found Patient with chronic rt MCA infarcts; remote parietal infarct and reporting symptoms are recrudesense. Pt with traumatic injuries to ribs with subacte nondisplaced anterior L 8,9, 10 rib fxs and Mild superior plate compression deformity t12 Relevant Past Medical History: CKD, HTN, aortic valve replacement, CAD, CVA HOME LIVING Patient Lives With: Family (dtr) Assistance Available: Part-Time Entry To Home: Stairs, With Rail Number Of Stairs Into Home: 3 Number Of Stairs To Bed/Bath: can stay on first floor Equipment Owned: (none) PRIOR FUNCTIONAL LEVEL Within Functional Limits, History of Falls SUBJECTIVE willing to participte THERAPY DIAGNOSIS Reduced mobility-other, Muscle Weakness (generalized), Unsteadiness on feet, Abnormalities of gait and mobility-other TREATMENT INTERVENTIONS Evaluation, Therapeutic Activity (35010) Timed Code Treatment (minutes): 8 Skilled Treatment Time (minutes): 30 $ Evaluation-Moderate (08780) Billed Units: 1 unit Therapeutic Activity (81347) Treatment Minutes: 8 $ Therapeutic Activity (35875) Billed Units: 1 unit Directed in bed mobility to reduce discomfort of rib fx. Patient needed physical assist to come to sit. Practiced multiple attempts. Standing static balance practice. Patient with increased sway with eyes open. TRAINING AND EDUCATION PROVIDED Anatomy and Impact on Deficits, Benefits of In-Hospital Mobility, Bed Mobility, Role of Physical Therapy THERAPEUTIC SKILLS USED Cues for Sequencing/Proper Technique for Activity, Cuing Verbal, Movement Facilitation FUNCTIONAL STATUS Bed Mobility Rolling: Minimal Assistance, Additional Information pain from ribs Supine To Sit: Contact Guard Assistance Sit to Supine: Contact Guard Assistance Scooting: Contact Guard Assistance Transfers Sit To Stand: Contact Guard Assistance Stand To Sit: Contact Guard Assistance Bed to Chair Gait Contact Guard Assistance, Minimal Assistance Gait Device: Hand Held Assist General Deviations/Observation s: Morena decreased (unsteady upon static standing) Gait Distance (feet): 40 Stairs GOALS Able to Perform HEP with: Minimal Assistance Transfer Supine to/from Sit with: Verbal Cues Only Ambulate with: Contact Guard Assistance Distance: 100' intervals Device: (decide if device improves pt's balance and mobilti) Rehab Potential: Good PLAN PT Frequency: 2 Times Per Week (2-3) Treatment Interventions: Education, Functional Mobility Training, Balance Training Plan for Next Visit: Bed Mobility, Fall Prevention, Gait Training, Sitting Balance SIGNATURE: Maty Wolf PT PATIENT NAME: Jonathon Perales DATE: May 18, 2024 TIME: 3:19 PM Normal [facility] TOXICOLOGY SCREEN, ROUTINE U RINEon 05-18-2024 Amphetamines Confirm (U) [Mass/Vol] Negative Normal Negative [facility] Comment on above: Order Comment: Speci men Type: URINE SPECIMENOrdering Facility: [facility] Address: [address] [place] [address] Result Comment: Cuto ff threshold at 1000 ng/mL. Performed By: #### U TOX2 ####[facility]ORATORYCLIA [id number] [address] OF [place] BARBITURATES, URINE Negative Normal Negative [facility] Comment on above: Order Comment: Speci men Type: URINE SPECIMENOrdering Facility: [facility] Address: [address] [place] [address] Result Comment: Cuto ff threshold at 200 ng/mL. Performed By: #### U TOX2 ####[facility] LABORATORYCLIA [id number] [place] [address] [place] BENZODIAZEPINES, UR Negative Normal Negative [facility] Comment on above: Order Comment: Speci men Type: URINE SPECIMENOrdering Facility: [facility] Address: [address] [place] [address] Result Comment: Cuto ff threshold at 200 ng/mL. Performed By: #### U TOX2 ####[facility]ATORYCLIA [id number] [place] [address] [place] Cannabinoids Screen Ql (U) Negative Normal Negative [facility] Comment on above: Order Comment: Speci men Type: URINE SPECIMENOrdering Facility: [facility] Address: [address] [place] [address] Result Comment: Cuto ff threshold at 50 ng/mL. Performed By: #### U TOX2 ####[facility]ORYCLIA [id number] [place] [address] [place] Cocaine Ql (U) Negative Normal Negative [facility] Comment on above: Order Comment: Speci men Type: URINE SPECIMENOrdering Facility: [facility] Address: [address] [place] [address] Result Comment: Cuto ff threshold at 300 ng/mL. Performed By: #### U TOX2 ####[facility]ORYCLIA [id number] [address] [place] Ethanol (U) [Mass/Vol] <11 Normal <11 [facility] Comment on above: Order Comment: Speci men Type: URINE SPECIMENOrdering Facility: [facility] Address: [address] [place] [address] Performed By: #### U TOX2 ####[facility]ATORYCLIA [id number] [address] OF [place] Opiates Screen Ql (U) Positive Abnormal Negative [facility] Comment on above: Order Comment: Speci men Type: URINE SPECIMENOrdering Facility: [facility] Address: [address] [place] [address] Result Comment: Cuto ff threshold at 300 ng/mL. Performed By: #### U TOX2 ####[facility]ORATORYCLIA [id number] [address] oxyCODONE cutoff Screen (U) [Mass/Vol] Negative Normal Negative [facility] Comment on above: Order Comment: Speci men Type: URINE SPECIMENOrdering Facility: [facility] [facility] Address: [address] [place] [address] Result Comment: Cuto ff threshold at 100 ng/mL. Performed By: #### U TOX2 ####[facility]ATORYCLIA [id number] [address] Phencyclidine Ql (U) Negative Normal Negative [facility] Comment on above: Order Comment: Speci men Type: URINE SPECIMENOrdering Facility: [facility] Address: [address] [place] [address] Result Comment: Cuto ff threshold at 25 ng/mL. Performed By: #### U TOX2 ####[facility]ATORYCLIA [id number] [address] [place] TYPE + SCREENon 05-18-2024 ABO A Normal [facility] Comment on above: Order Comment: Speci men Type: BLOOD SPECIMENOrdering Facility: [facility] Address: [address] [place] [address] Performed By: #### T SCR ####[facility] BLOOD BANKCLIA [id number] [address] HISTORICAL AB SCR STATUS Negative Normal [facility] Comment on above: Order Comment: Speci men Type: BLOOD SPECIMENOrdering Facility: [facility] Address: [address] [place] [address] Performed By: #### T SCR ####[facility] BLOOD BANKCLIA [id number] [address] Rh Nom (Bld) Positive Normal [facility] Comment on above: Order Comment: Speci men Type: BLOOD SPECIMENOrdering Facility: [facility] Address: [address] [place] [address] Performed By: #### T SCR ####[facility] BLOOD BANKCLIA [id number] [address] TYPE AND SCREEN EXPIRATION 05/21/2024 23:59 Normal [facility] Comment on above: Order Comment: Speci men Type: BLOOD SPECIMENOrdering Facility: [facility] Address: [address] [place] [address] Performed By: #### T SCR ####[facility] BLOOD BANKCLIA [id number] [address] Urinalysis complete panel (U )on 05-18-2024 Bacteria LM.HPF (Urine sed) [#/Area] Few Abnormal None Seen [facility] Comment on above: Order Comment: Speci men Type: URINE SPECIMENOrdering Facility: [facility] Address: [address] [place] [address] Performed By: #### 2 4356-8 ####[facility] LABORATORYCLIA [id number] [address] Bilirubin Ql (U) Negative Normal Negative [facility] Comment on above: Order Comment: Speci men Type: URINE SPECIMENOrdering Facility: [facility] Address: [address] [place] [address] Performed By: #### 2 4356-8 ####[facility] LABORATORYCLIA [id number] [address] [place] Clarity (Unsp spec) Clear Normal Clear [facility] Comment on above: Order Comment: Speci men Type: URINE SPECIMENOrdering Facility: [facility] Address: [address] [place] [address] Performed By: #### 2 4356-8 ####[facility] LABORATORYCLIA [id number] [address] [place] Color (U) Light Yellow Normal yellow [facility] Comment on above: Order Comment: Speci men Type: URINE SPECIMENOrdering Facility: [facility] Address: [address] [place] [address] Performed By: #### 2 4356-8 ####[facility] LABORATORYCLIA [id number] [address] [place] Glucose Test strip (U) [Mass/Vol] Negative Normal Trace, Negative [facility] Comment on above: Order Comment: Speci men Type: URINE SPECIMENOrdering Facility: [facility] Address: [address] [place] [address] Performed By: #### 2 4356-8 ####[facility] LABORATORYCLIA [id number] [place] [address] [place] Hemoglobin Ql (U) Negative Normal Negative, Trace [facility] Comment on above: Order Comment: Speci men Type: URINE SPECIMENOrdering Facility: [facility] Address: [address] [place] [address] Performed By: #### 2 4356-8 ####[facility]ATORYCLIA [id number] [address] [place] Ketones Ql (U) Negative Normal Negative, Trace [facility] Comment on above: Order Comment: Speci men Type: URINE SPECIMENOrdering Facility: [facility] Address: [address] [place] [address] Performed By: #### 2 4356-8 ####[facility] LABORATORYCLIA [id number] [address] Leukocyte esterase Test strip Ql (U) Negative Normal Negative, 25 Garrick/uL [facility] Comment on above: Order Comment: Speci men Type: URINE SPECIMENOrdering Facility: [facility] Address: [address] [place] [address] Performed By: #### 2 4356-8 ####[facility] LABORATORYCLIA [id number] [address] Nitrite Ql (U) Negative Normal Negative [facility] Comment on above: Order Comment: Speci men Type: URINE SPECIMENOrdering Facility: [facility] Address: [address] [place] [address] Performed By: #### 2 4356-8 ####[facility] LABORATORYCLIA [id number] [address] pH (U) 6.5 [pH] Normal 5.0-8.0 [facility] Comment on above: Order Comment: Speci men Type: URINE SPECIMENOrdering Facility: [facility] Address: [address] [place] [address] Performed By: #### 2 4356-8 ####[facility] LABORATORYCLIA [id number] [address] Protein (U) [Mass/Vol] Trace Normal Trace , Negative [facility] Comment on above: Order Comment: Speci men Type: URINE SPECIMENOrdering Facility: [facility] Address: [address] [place] [address] Performed By: #### 2 4356-8 ####[facility] LABORATORYCLIA [id number] [address] RBC LM.HPF (Urine sed) [#/Area] 0-3 /HPF Normal 0-3 /HPF [facility] Comment on above: Order Comment: Speci men Type: URINE SPECIMENOrdering Facility: [facility] Address: [address] [place] [address] Performed By: #### 2 4356-8 ####[facility] LABORATORYCLIA [id number] [address] Specific gravity (U) [Rel density] >1.040 High 1.005-1.030 [facility] Comment on above: Order Comment: Speci men Type: URINE SPECIMENOrdering Facility: [facility] Address: [address] [place] [address] Performed By: #### 2 4356-8 ####[facility] LABORATORYCLIA [id number] [address] Urobilinogen Ql (U) Normal Normal Normal [facility] Comment on above: Order Comment: Speci men Type: URINE SPECIMENOrdering Facility: [facility] Address: [address] [place] [address] Performed By: #### 2 4356-8 ####[facility] [id number] [address] WBC LM.HPF (Urine sed) [#/Area] 0-5 /HPF Normal 0-5 /HPF [facility] Comment on above: Order Comment: Speci men Type: URINE SPECIMENOrdering Facility: [facility] Address: [address] [place] [address] Performed By: #### 2 4356-8 ####[facility] LABORATORYCLIA [id number] [address] aPTT PPPon 05-18-2024 aPTT Coag (PPP) [Time] 31.9 s Normal 23.0-32.4 [facility] Comment on above: Order Comment: Speci men Type: BLOOD SPECIMENOrdering Facility: [facility] Address: [address] [place] [address] Performed By: #### 3 4528-0, 46365-0 ####[facility] LABORATORYCLIA [id number] [address] CBC panel Auto (Bld)on 05-11 Erythrocyte distribution width (RBC) [Ratio] 13.1 % 11.5 - 15.0 % [facility] Hematocrit (Bld) [Volume fraction] 40.8 % 39.0 - 51.0 % [facility] Hemoglobin (Bld) [Mass/Vol] 13.0 g/dL 13.0 - 17.0 g/dL [facility] Interpretation and review of laboratory results Abnormal [facility] MCH (RBC) [Entitic mass] 33.9 pg 26.0 - 34.[address] [facility] MCHC (RBC) [Mass/Vol] 31.9 g/dL 30.5 - 36.0 g/dL [facility] MCV (RBC) [Entitic vol] 106.5 fL High 80.0 - 100.[address] [facility] Nucleated RBC (Bld) [#/Vol] NINF [facility] Platelet mean volume (Bld) [Entitic vol] 11.0 fL 9.0 - 12.[address] [facility] Platelets (Bld) [#/Vol] 314 10*3/uL [facility] RBC (Bld) [#/Vol] 3.83 10*6/uL Low 4.20 - 6.0 0 m/uL [facility] WBC (Bld) [#/Vol] 10.38 10*3/uL [facility] Erythrocyte distribution width (RBC) [Ratio] 13.1 % Normal 11.5-15.0 [facility] Comment on above: Order Comment: Lyndsey eller Type: BLOOD SPECIMEN Ordering Facility: [facility] Address: [address] [place] [address] Performed By: #### 5 8410-2 #### [facility] CLIA [id number] [address] STATES OF [facility] Hematocrit (Bld) [Volume fraction] 40.8 % Normal 39.0-51.0 [facility] Comment on above: Order Comment: Lyndsey elelr Type: BLOOD SPECIMEN Ordering Facility: [facility] Address: [address] [place] [address] Performed By: #### 5 8410-2 #### [facility] CLIA [id number] [address] [place] Hemoglobin (Bld) [Mass/Vol] 13.0 g/dL Normal 13.0-17.0 [facility] Comment on above: Order Comment: Speci men Type: BLOOD SPECIMEN Ordering Facility: [facility] Address: [address] [place] [address] Performed By: #### 5 8410-2 #### [facility] CLIA [id number] [address] MCH (RBC) [Entitic mass] 33.9 pg Normal 26.0-34.0 [facility] Comment on above: Order Comment: Speci men Type: BLOOD SPECIMEN Ordering Facility: [facility] Address: [address] [place] [address] Performed By: #### 5 8410-2 #### [facility] CLIA [id number] [address] MCHC (RBC) [Mass/Vol] 31.9 g/dL Normal 30.5-36.0 [facility] Comment on above: Order Comment: Speci men Type: BLOOD SPECIMEN Ordering Facility: [facility] Address: [address] [place] [address] Performed By: #### 5 8410-2 #### [facility] CLIA [id number] [address] STATES [facility] MCV (RBC) [Entitic vol] 106.5 fL High 80.0-100.0 C [facility] Comment on above: Order Comment: Speci men Type: BLOOD SPECIMEN Ordering Facility: [facility] Address: [address] [place] [address] Performed By: #### 5 8410-2 #### [facility] CLIA [id number] [address] Nucleated RBC (Bld) [#/Vol] 10*3/uL Normal <0.01 [facility] Comment on above: Order Comment: Speci men Type: BLOOD SPECIMEN Ordering Facility: [facility] Address: [address] [place] [address] Performed By: #### 5 8410-2 #### [facility] CLIA [id number] [address] [place] [address] [place] Platelet mean volume (Bld) [Entitic vol] 11.0 fL Normal 9.0-12.7 [facility] Comment on above: Order Comment: Speci men Type: BLOOD SPECIMEN Ordering Facility: [facility] Address: [address] [place] [address] Performed By: #### 5 8410-2 #### [facility] CLIA [id number] [address] [place] [address] [place] Platelets (Bld) [#/Vol] 314 10*3/uL Normal 150-400 [facility] Comment on above: Order Comment: Speci men Type: BLOOD SPECIMEN Ordering Facility: [facility] Address: [address] [place] [address] Performed By: #### 5 8410-2 #### [facility] CLIA [id number] [address] [place] [address] [place] RBC (Bld) [#/Vol] 3.83 10*6/uL Low 4.20-6.00 [facility] Comment on above: Order Comment: Speci men Type: BLOOD SPECIMEN Ordering Facility: [facility] Address: [address] [place] [address] Performed By: #### 5 8410-2 #### [facility] CLIA [id number] [address] [place] [address] [place] WBC (Bld) [#/Vol] 10.38 10*3/uL Normal 3.70-11.00 [facility] Comment on above: Order Comment: Speci men Type: BLOOD SPECIMEN Ordering Facility: [facility] Address: [address] [place] [address] Performed By: #### 5 8410-2 #### [facility] CLIA [id number] [address] [place] [address] [place] Basic metabolic 2000 panelon 05-07-2024 Anion gap [Moles/Vol] 12 mmol/L 8 - 15 mmol/L [facility] Calcium [Mass/Vol] 9.6 mg/dL 8.5 - 10. 2 mg/dL [facility] Chloride [Moles/Vol] 103 mmol/L 98 - 10 7 mmol/L [facility] CO2 [Moles/Vol] 22 mmol/L 22 - 30 mmol/L [facility] Creatinine [Mass/Vol] 1.12 mg/dL 0.73 - 1.22 mg/dL [facility] GFR/1.73 sq M.predicted among non-blacks MDRD (S/P/Bld) [Vol rate/Area] 69 mL/min/{1.73_m2} - PINF [facility] Comment on above: Estimated Glomerular Filtration Rate (eGFR) is calculated using the 2020 CKD-EPI creatinine equation. This equation utilizes serum creatinine, sex, and age as parameters. The creatinine assay has traceable calibration to isotope dilution-mass spectrometry. Refer to KDIGO guidelines for clinical interpretation. In patients with unstable renal function, e.g. those with acute kidney injury, the eGFR may not accurately reflect actual GFR. Glucose [Mass/Vol] 85 mg/dL 74 - 99 mg/dL [facility] Comment on above: The [place] Diab[employer] s Association (ADA) provides guidance for cutoff values for fasting glucose and random glucose. The ADA defines fasting as no caloric intake for at least 8 hours. Fasting plasma glucose results between 100 to 125 mg/dL indicate increased risk for diabetes (prediabetes). Fasting plasma glucose results greater than or equal to 126 mg/dL meet the criteria for diagnosis of diabetes. In the absence of unequivocal hyperglycemia, results should be confirmed by repeat testing. In a patient with classic symptoms of hyperglycemia or hyperglycemic crisis, random plasma glucose results greater than or equal to 200 mg/dL meet the criteria for diagnosis of diabetes. Reference: Standards of Medical Care in Diabetes 2016, [place] [employer]. Diabetes Care. 2016.39(Suppl 1). Interpretation and review of laboratory results Abnormal [facility] Potassium [Moles/Vol] 4.7 mmol/L 3.7 - 5.1 mmol/L [facility] Sodium [Moles/Vol] 137 mmol/L 136 - 144 mmol/L [facility] Urea nitrogen [Mass/Vol] 26 mg/dL High 9 - 24 mg/dL [facility] Anion gap [Moles/Vol] 12 mmol/L Normal 8-15 [facility] Comment on above: Order Comment: Speci men Type: BLOOD SPECIMEN Ordering Facility: [facility] Nishant Goyal Address: [address] [place] [address] Performed By: #### 2 4321-2 #### [facility] CLIA [id number] [address] [place] [address] [place] Calcium [Mass/Vol] 9.6 mg/dL Normal 8.5-10.2 [facility] Comment on above: Order Comment: Speci men Type: BLOOD SPECIMEN Ordering Facility: [facility] Address: [address] [place] [address] Performed By: #### 2 4321-2 #### [facility] CLIA [id number] [address] [place] [address] [place] Chloride [Moles/Vol] 103 mmol/L Normal 98-107 [facility] Comment on above: Order Comment: Speci men Type: BLOOD SPECIMEN Ordering Facility: [facility] Address: [address] [place] [address] Performed By: #### 2 4321-2 #### [facility] CLIA [id number] [address] [place] [address] [place] CO2 [Moles/Vol] 22 mmol/L Normal 22-30 [facility] Comment on above: Order Comment: Speci men Type: BLOOD SPECIMEN Ordering Facility: [facility] Address: [address] [place] [address] Performed By: #### 2 4321-2 #### [facility] CLIA [id number] [address] [place] [address] [place] Creatinine [Mass/Vol] 1.12 mg/dL Normal 0.73-1.22 [facility] Comment on above: Order Comment: Speci men Type: BLOOD SPECIMEN Ordering Facility: [facility] Address: [address] [place] [address] Performed By: #### 2 4321-2 #### [facility] CLIA [id number] [address] [place] [address] [place] Creatinine and Glomerular filtration rate.predicted panel (S/P/Bld) 69 mL/min/1.73m??? Normal >=60 [facility] Comment on above: Order Comment: Speci men Type: BLOOD SPECIMEN Ordering Facility: [facility] Address: [address] [place] [address] Result Comment: Bianca mated Glomerular Filtration Rate (eGFR) is calculated using the 2020 CKD-EPI creatinine equation. This equation utilizes serum creatinine, sex, and age as parameters. The creatinine assay has traceable calibration to isotope dilution-mass spectrometry. Refer to KDIGO guidelines for clinical interpretation. In patients with unstable renal function, e.g. those with acute kidney injury, the eGFR may not accurately reflect actual GFR. Performed By: #### 2 4321-2 #### [facility] CLIA [id number] [address] [place] [address] [place] Glucose [Mass/Vol] 85 mg/dL Normal 74-99 [facility] Comment on above: Order Comment: Lyndsey eller Type: BLOOD SPECIMEN Ordering Facility: [facility] Address: [address] [place] [address] Result Comment: The [place] Diabetes Association (ADA) provides guidance for cutoff values for fasting glucose and random glucose. The ADA defines fasting as no caloric intake for at least 8 hours. Fasting plasma glucose results between 100 to 125 mg/dL indicate increased risk for diabetes (prediabetes). Fasting plasma glucose results greater than or equal to 126 mg/dL meet the criteria for diagnosis of diabetes. In the absence of unequivocal hyperglycemia, results should be confirmed by repeat testing. In a patient with classic symptoms of hyperglycemia or hyperglycemic crisis, random plasma glucose results greater than or equal to 200 mg/dL meet the criteria for diagnosis of diabetes. Reference: Standards of Medical Care in Diabetes 2016, [place] [employer]. Diabetes Care. 2016.39(Suppl 1). Performed By: #### 2 4321-2 #### [facility] CLIA [id number] [address] [place] [address] [place] Potassium [Moles/Vol] 4.7 mmol/L Normal 3.7-5.1 [facility] Comment on above: Order Comment: Lyndsey eller Type: BLOOD SPECIMEN Ordering Facility: [facility] Address: [address] [place] [address] Performed By: #### 2 4321-2 #### [facility] CLIA [id number] [address] STATES [facility] Sodium [Moles/Vol] 137 mmol/L Normal 136-144 [facility] Comment on above: Order Comment: Speci men Type: BLOOD SPECIMEN Ordering Facility: [facility] Address: [address] [place] [address] Performed By: #### 2 4321-2 #### [facility] CLIA [id number] [address] STATES [facility] Urea nitrogen [Mass/Vol] 26 mg/dL High 9-24 [facility] Comment on above: Order Comment: Speci men Type: BLOOD SPECIMEN Ordering Facility: [facility] Address: [address] [place] [address] Performed By: #### 2 4321-2 #### [facility] CLIA [id number] [address] [place] CBC panel Auto (Bld)on 05-07 Erythrocyte distribution width (RBC) [Ratio] 12.8 % 11.5 - 15.0 % [facility] Hematocrit (Bld) [Volume fraction] 39.9 % 39.0 - 51.0 % [facility] Hemoglobin (Bld) [Mass/Vol] 13.0 g/dL 13.0 - 17.0 g/dL [facility] Interpretation and review of laboratory results Abnormal [facility] MCH (RBC) [Entitic mass] 34.2 pg High 26.0 - 34.[address] [facility] MCHC (RBC) [Mass/Vol] 32.6 g/dL 30.5 - 36.0 g/dL [facility] MCV (RBC) [Entitic vol] 105.0 fL High 80.0 - 100.[address] [facility] Nucleated RBC (Bld) [#/Vol] NINF [facility] Platelet mean volume (Bld) [Entitic vol] 10.8 fL 9.0 - 12.[address] [facility] Platelets (Bld) [#/Vol] 264 10*3/uL [facility] RBC (Bld) [#/Vol] 3.80 10*6/uL Low 4.20 - 6.0 0 m/uL [facility] WBC (Bld) [#/Vol] 6.94 10*3/uL [facility] Erythrocyte distribution width (RBC) [Ratio] 12.8 % Normal 11.5-15.0 [facility] Comment on above: Order Comment: Speci men Type: BLOOD SPECIMEN Ordering Facility: [facility] Address: [address] [place] [address] Performed By: #### 5 8410-2 #### [facility] CLIA [id number] [address] [place] [address] [place] Hematocrit (Bld) [Volume fraction] 39.9 % Normal 39.0-51.0 [facility] Comment on above: Order Comment: Speci men Type: BLOOD SPECIMEN Ordering Facility: [facility] Address: [address] [place] [address] Performed By: #### 5 8410-2 #### [facility] CLIA [id number] [address] [place] [address] [place] Hemoglobin (Bld) [Mass/Vol] 13.0 g/dL Normal 13.0-17.0 [facility] Comment on above: Order Comment: Speci men Type: BLOOD SPECIMEN Ordering Facility: [facility] Address: [address] [place] [address] Performed By: #### 5 8410-2 #### [facility] CLIA [id number] [address] [place] [address] [place] MCH (RBC) [Entitic mass] 34.2 pg High 26.0-34.0 [facility] Comment on above: Order Comment: Speci men Type: BLOOD SPECIMEN Ordering Facility: [facility] Address: [address] [place] [address] Performed By: #### 5 8410-2 #### [facility] CLIA [id number] [address] [place] MCHC (RBC) [Mass/Vol] 32.6 g/dL Normal 30.5-36.0 [facility] Comment on above: Order Comment: Speci men Type: BLOOD SPECIMEN Ordering Facility: [facility] Address: [address] [place] [address] Performed By: #### 5 8410-2 #### [facility] CLIA [id number] [address] [place] [address] [place] MCV (RBC) [Entitic vol] 105.0 fL High 80.0-100.0 C [facility] Comment on above: Order Comment: Speci men Type: BLOOD SPECIMEN Ordering Facility: [facility] Address: [address] [place] [address] Performed By: #### 5 8410-2 #### [facility] CLIA [id number] [address] [place] [address] [place] Nucleated RBC (Bld) [#/Vol] 10*3/uL Normal <0.01 [facility] Comment on above: Order Comment: Speci men Type: BLOOD SPECIMEN Ordering Facility: [facility] Address: [address] [place] [address] Performed By: #### 5 8410-2 #### [facility] CLIA [id number] [address] Platelet mean volume (Bld) [Entitic vol] 10.8 fL Normal 9.0-12.7 [facility] Comment on above: Order Comment: Speci men Type: BLOOD SPECIMEN Ordering Facility: [facility] Address: [address] [place] [address] Performed By: #### 5 8410-2 #### [facility] CLIA [id number] [address] [place] Platelets (Bld) [#/Vol] 264 10*3/uL Normal 150-400 [facility] Comment on above: Order Comment: Speci men Type: BLOOD SPECIMEN Ordering Facility: [facility] Address: [address] [place] [address] Performed By: #### 5 8410-2 #### [facility] CLIA [id number] [address] [place] RBC (Bld) [#/Vol] 3.80 10*6/uL Low 4.20-6.00 [facility] Comment on above: Order Comment: Speci men Type: BLOOD SPECIMEN Ordering Facility: [facility] Address: [address] [place] [address] Performed By: #### 5 8410-2 #### [facility] CLIA [id number] [address] WBC (Bld) [#/Vol] 6.94 10*3/uL Normal 3.70-11.00 [facility] Comment on above: Order Comment: Lyndsey eller Type: BLOOD SPECIMEN Ordering Facility: [facility] Address: [address] [place] [address] Performed By: #### 5 8410-2 #### [facility] CLIA [id number] [address] [place] [id number] [place] Basic metabolic 2000 panelon 05-05-2024 Anion gap [Moles/Vol] 10 mmol/L 8 - 15 mmol/L [facility] Calcium [Mass/Vol] 8.9 mg/dL 8.5 - 10. 2 mg/dL [facility] Chloride [Moles/Vol] 106 mmol/L 98 - 10 7 mmol/L [facility] CO2 [Moles/Vol] 24 mmol/L 22 - 30 mmol/L [facility] Creatinine [Mass/Vol] 1.52 mg/dL High 0.73 - 1.22 mg/dL [facility] GFR/1.73 sq M.predicted among non-blacks MDRD (S/P/Bld) [Vol rate/Area] 48 mL/min/{1.73_m2} Low - PINF [facility] Comment on above: Estimated Glomerular Filtration Rate (eGFR) is calculated using the 2020 CKD-EPI creatinine equation. This equation utilizes serum creatinine, sex, and age as parameters. The creatinine assay has traceable calibration to isotope dilution-mass spectrometry. Refer to KDIGO guidelines for clinical interpretation. In patients with unstable renal function, e.g. those with acute kidney injury, the eGFR may not accurately reflect actual GFR. Glucose [Mass/Vol] 81 mg/dL 74 - 99 mg/dL [facility] Comment on above: The [place] Di[employer] Association (ADA) provides guidance for cutoff values for fasting glucose and random glucose. The ADA defines fasting as no caloric intake for at least 8 hours. Fasting plasma glucose results between 100 to 125 mg/dL indicate increased risk for diabetes (prediabetes). Fasting plasma glucose results greater than or equal to 126 mg/dL meet the criteria for diagnosis of diabetes. In the absence of unequivocal hyperglycemia, results should be confirmed by repeat testing. In a patient with classic symptoms of hyperglycemia or hyperglycemic crisis, random plasma glucose results greater than or equal to 200 mg/dL meet the criteria for diagnosis of diabetes. Reference: Standards of Medical Care in Diabetes 2016, [place] [employer]. Diabetes Care. 2016.39(Suppl 1). Interpretation and review of laboratory results Abnormal [facility] Potassium [Moles/Vol] 4.6 mmol/L 3.7 - 5.1 mmol/L [facility] Sodium [Moles/Vol] 140 mmol/L 136 - 144 mmol/L [facility] Urea nitrogen [Mass/Vol] 53 mg/dL High 9 - 24 mg/dL [facility] Anion gap [Moles/Vol] 10 mmol/L Normal 8-15 [facility] Comment on above: Order Comment: Lyndsey eller Type: BLOOD SPECIMEN Ordering Facility: [facility] Address: [address] [place] [address] Performed By: #### 2 4321-2 #### [facility] CLIA [id number] [address] [place] [address] [place] Calcium [Mass/Vol] 8.9 mg/dL Normal 8.5-10.2 [facility] Comment on above: Order Comment: Lyndsey eller Type: BLOOD SPECIMEN Ordering Facility: [facility] Address: [address] [place] [address] Performed By: #### 2 4321-2 #### [facility] CLIA [id number] [address] [place] [address] [place] Chloride [Moles/Vol] 106 mmol/L Normal 98-107 [facility] Comment on above: Order Comment: Lyndsey eller Type: BLOOD SPECIMEN Ordering Facility: [facility] Address: [address] [place] [address] Performed By: #### 2 4321-2 #### [facility] CLIA [id number] [address] [place] [address] [place] CO2 [Moles/Vol] 24 mmol/L Normal 22-30 [facility] Comment on above: Order Comment: Speci men Type: BLOOD SPECIMEN Ordering Facility: [facility] Address: [address] [place] [address] Performed By: #### 2 4321-2 #### [facility] CLIA [id number] [address] [place] [address] [place] Creatinine [Mass/Vol] 1.52 mg/dL High 0.73-1.22 [facility] Comment on above: Order Comment: Speci men Type: BLOOD SPECIMEN Ordering Facility: [facility] Address: [address] [place] [address] Performed By: #### 2 4321-2 #### [facility] CLIA [id number] [address] Creatinine and Glomerular filtration rate.predicted panel (S/P/Bld) 48 mL/min/1.73m??? Low >=60 [facility] Comment on above: Order Comment: Rosii men Type: BLOOD SPECIMEN Ordering Facility: [facility] Address: [address] [place] [address] Result Comment: Bianca mated Glomerular Filtration Rate (eGFR) is calculated using the 2020 CKD-EPI creatinine equation. This equation utilizes serum creatinine, sex, and age as parameters. The creatinine assay has traceable calibration to isotope dilution-mass spectrometry. Refer to KDIGO guidelines for clinical interpretation. In patients with unstable renal function, e.g. those with acute kidney injury, the eGFR may not accurately reflect actual GFR. Performed By: #### 2 4321-2 #### [facility] CLIA [id number] [address] [place] [address] [place] Glucose [Mass/Vol] 81 mg/dL Normal 74-99 [facility] Comment on above: Order Comment: Rosii rafita Type: BLOOD SPECIMEN Ordering Facility: [facility] Address: [address] [place] [address] Result Comment: The [place] Diabetes Association (ADA) provides guidance for cutoff values for fasting glucose and random glucose. The ADA defines fasting as no caloric intake for at least 8 hours. Fasting plasma glucose results between 100 to 125 mg/dL indicate increased risk for diabetes (prediabetes). Fasting plasma glucose results greater than or equal to 126 mg/dL meet the criteria for diagnosis of diabetes. In the absence of unequivocal hyperglycemia, results should be confirmed by repeat testing. In a patient with classic symptoms of hyperglycemia or hyperglycemic crisis, random plasma glucose results greater than or equal to 200 mg/dL meet the criteria for diagnosis of diabetes. Reference: Standards of Medical Care in Diabetes 2016, [place] [employer]. Diabetes Care. 2016.39(Suppl 1). Performed By: #### 2 4321-2 #### [facility] CLIA [id number] [address] [place] [address] [place] Potassium [Moles/Vol] 4.6 mmol/L Normal 3.7-5.1 [facility] Comment on above: Order Comment: Lyndsey eller Type: BLOOD SPECIMEN Ordering Facility: [facility] Address: [address] [place] [address] Performed By: #### 2 4321-2 #### [facility] CLIA [id number] [address] [place] [address] [place] Sodium [Moles/Vol] 140 mmol/L Normal 136-144 [facility] Comment on above: Order Comment: Lyndsey eller Type: BLOOD SPECIMEN Ordering Facility: [facility] Address: [address] [place] [address] Performed By: #### 2 4321-2 #### [facility] CLIA [id number] [address] [place] [address] [place] Urea nitrogen [Mass/Vol] 53 mg/dL High 9-24 [facility] Comment on above: Order Comment: Lyndsey eller Type: BLOOD SPECIMEN Ordering Facility: [facility] Address: [address] [place] [address] Performed By: #### 2 4321-2 #### [facility] CLIA [id number] [address] [place] [address] [place] Basic metabolic 2000 panelon 05-04-2024 Anion gap [Moles/Vol] 16 mmol/L High 8 - 15 mmol/L [facility] Calcium [Mass/Vol] 9.6 mg/dL 8.5 - 10. 2 mg/dL [facility] Chloride [Moles/Vol] 102 mmol/L 98 - 10 7 mmol/L [facility] CO2 [Moles/Vol] 22 mmol/L 22 - 30 mmol/L [facility] Creatinine [Mass/Vol] 1.99 mg/dL High 0.73 - 1.22 mg/dL [facility] GFR/1.73 sq M.predicted among non-blacks MDRD (S/P/Bld) [Vol rate/Area] 35 mL/min/{1.73_m2} Low - PINF [facility] Comment on above: Estimated Glomerular Filtration Rate (eGFR) is calculated using the 2020 CKD-EPI creatinine equation. This equation utilizes serum creatinine, sex, and age as parameters. The creatinine assay has traceable calibration to isotope dilution-mass spectrometry. Refer to KDIGO guidelines for clinical interpretation. In patients with unstable renal function, e.g. those with acute kidney injury, the eGFR may not accurately reflect actual GFR. Glucose [Mass/Vol] 91 mg/dL 74 - 99 mg/dL [facility] Comment on above: The [place] Diabete s Association (ADA) provides guidance for cutoff values for fasting glucose and random glucose. The ADA defines fasting as no caloric intake for at least 8 hours. Fasting plasma glucose results between 100 to 125 mg/dL indicate increased risk for diabetes (prediabetes). Fasting plasma glucose results greater than or equal to 126 mg/dL meet the criteria for diagnosis of diabetes. In the absence of unequivocal hyperglycemia, results should be confirmed by repeat testing. In a patient with classic symptoms of hyperglycemia or hyperglycemic crisis, random plasma glucose results greater than or equal to 200 mg/dL meet the criteria for diagnosis of diabetes. Reference: Standards of Medical Care in Diabetes 2016, [place] [employer]. Diabetes Care. 2016.39(Suppl 1). Interpretation and review of laboratory results Abnormal [facility] Potassium [Moles/Vol] 4.5 mmol/L 3.7 - 5.1 mmol/L [facility] Sodium [Moles/Vol] 140 mmol/L 136 - 144 mmol/L [facility] Urea nitrogen [Mass/Vol] 70 mg/dL High 9 - 24 mg/dL [facility] Anion gap [Moles/Vol] 16 mmol/L High 8-15 [facility] Comment on above: Order Comment: Speci men Type: BLOOD SPECIMEN Ordering Facility: [facility] Address: [address] [place] [address] Performed By: #### 2 4321-2 #### [facility] CLIA [id number] [address] [place] [address] [place] Calcium [Mass/Vol] 9.6 mg/dL Normal 8.5-10.2 [facility] Comment on above: Order Comment: Speci men Type: BLOOD SPECIMEN Ordering Facility: [facility] Address: [address] [place] [address] Performed By: #### 2 4321-2 #### [facility] CLIA [id number] [address] [place] [address] [place] Chloride [Moles/Vol] 102 mmol/L Normal 98-107 [facility] Comment on above: Order Comment: Speci men Type: BLOOD SPECIMEN Ordering Facility: [facility] Address: [address] [place] [address] Performed By: #### 2 4321-2 #### [facility] CLIA [id number] [address] [place] [address] [place] CO2 [Moles/Vol] 22 mmol/L Normal 22-30 [facility] Comment on above: Order Comment: Speci men Type: BLOOD SPECIMEN Ordering Facility: [facility] Address: [address] [place] [address] Performed By: #### 2 4321-2 #### [facility] CLIA [id number] [address] [place] [address] [place] Creatinine [Mass/Vol] 1.99 mg/dL High 0.73-1.22 [facility] Comment on above: Order Comment: Speci men Type: BLOOD SPECIMEN Ordering Facility: [facility] Address: [address] [place] [address] Performed By: #### 2 4321-2 #### [facility] CLIA [id number] [address] [place] [address] [place] Creatinine and Glomerular filtration rate.predicted panel (S/P/Bld) 35 mL/min/1.73m??? Low >=60 [facility] Comment on above: Order Comment: Lyndsey eller Type: BLOOD SPECIMEN Ordering Facility: [facility] Address: [address] [place] [address] Result Comment: Bianca mated Glomerular Filtration Rate (eGFR) is calculated using the 2020 CKD-EPI creatinine equation. This equation utilizes serum creatinine, sex, and age as parameters. The creatinine assay has traceable calibration to isotope dilution-mass spectrometry. Refer to KDIGO guidelines for clinical interpretation. In patients with unstable renal function, e.g. those with acute kidney injury, the eGFR may not accurately reflect actual GFR. Performed By: #### 2 4321-2 #### [facility] CLIA [id number] [address] [place] [address] [place] Glucose [Mass/Vol] 91 mg/dL Normal 74-99 [facility] Comment on above: Order Comment: Lyndsey eller Type: BLOOD SPECIMEN Ordering Facility: [facility] Address: [address] [place] [address] Result Comment: The [place] Diabetes Association (ADA) provides guidance for cutoff values for fasting glucose and random glucose. The ADA defines fasting as no caloric intake for at least 8 hours. Fasting plasma glucose results between 100 to 125 mg/dL indicate increased risk for diabetes (prediabetes). Fasting plasma glucose results greater than or equal to 126 mg/dL meet the criteria for diagnosis of diabetes. In the absence of unequivocal hyperglycemia, results should be confirmed by repeat testing. In a patient with classic symptoms of hyperglycemia or hyperglycemic crisis, random plasma glucose results greater than or equal to 200 mg/dL meet the criteria for diagnosis of diabetes. Reference: Standards of Medical Care in Diabetes 2016, [place] [employer]. Diabetes Care. 2016.39(Suppl 1). Performed By: #### 2 4321-2 #### [facility] CLIA [id number] [address] [place] [id number] [place] Potassium [Moles/Vol] 4.5 mmol/L Normal 3.7-5.1 [facility] Comment on above: Order Comment: Lyndsey eller Type: BLOOD SPECIMEN Ordering Facility: [facility] Address: [address] [place] [address] Performed By: #### 2 4321-2 #### [facility] CLIA [id number] [address] STATES [facility] Sodium [Moles/Vol] 140 mmol/L Normal 136-144 [facility] Comment on above: Order Comment: Speci men Type: BLOOD SPECIMEN Ordering Facility: [facility] Address: [address] [place] [address] Performed By: #### 2 4321-2 #### [facility] CLIA [id number] [address] STATES [facility] Urea nitrogen [Mass/Vol] 70 mg/dL High 9-24 [facility] Comment on above: Order Comment: Speci men Type: BLOOD SPECIMEN Ordering Facility: [facility] Address: [address] [place] [address] Performed By: #### 2 4321-2 #### [facility] CLIA [id number] [address] STATES [facility] CBC panel Auto (Bld)on 05-04 Erythrocyte distribution width (RBC) [Ratio] 13.1 % 11.5 - 15.0 % [facility] Hematocrit (Bld) [Volume fraction] 45.2 % 39.0 - 51.0 % [facility] Hemoglobin (Bld) [Mass/Vol] 14.1 g/dL 13.0 - 17.0 g/dL [facility] Interpretation and review of laboratory results Abnormal [facility] MCH (RBC) [Entitic mass] 34.2 pg High 26.0 - 34.[address] [facility] MCHC (RBC) [Mass/Vol] 31.2 g/dL 30.5 - 36.0 g/dL [facility] MCV (RBC) [Entitic vol] 109.7 fL High 80.0 - 100.[address] [facility] Nucleated RBC (Bld) [#/Vol] NINF [facility] Platelet mean volume (Bld) [Entitic vol] 10.5 fL 9.0 - 12.[address] [facility] Platelets (Bld) [#/Vol] 373 10*3/uL [facility] RBC (Bld) [#/Vol] 4.12 10*6/uL Low 4.20 - 6.0 0 m/uL [facility] WBC (Bld) [#/Vol] 7.19 10*3/uL [facility] Erythrocyte distribution width (RBC) [Ratio] 13.1 % Normal 11.5-15.0 [facility] Comment on above: Order Comment: Speci men Type: BLOOD SPECIMEN Ordering Facility: [facility] Address: [address] [place] [address] Performed By: #### 5 8410-2 #### [facility] CLIA [id number] [address] STATES OF [facility] Hematocrit (Bld) [Volume fraction] 45.2 % Normal 39.0-51.0 [facility] Comment on above: Order Comment: Speci men Type: BLOOD SPECIMEN Ordering Facility: [facility] Address: [address] [place] [address] Performed By: #### 5 8410-2 #### [facility] CLIA [id number] [address] [place] Hemoglobin (Bld) [Mass/Vol] 14.1 g/dL Normal 13.0-17.0 [facility] Comment on above: Order Comment: Speci men Type: BLOOD SPECIMEN Ordering Facility: [facility] Address: [address] [place] [address] Performed By: #### 5 8410-2 #### [facility] CLIA [id number] [address] [place] MCH (RBC) [Entitic mass] 34.2 pg High 26.0-34.0 [facility] Comment on above: Order Comment: Speci men Type: BLOOD SPECIMEN Ordering Facility: [facility] Address: [address] [place] [address] Performed By: #### 5 8410-2 #### [facility] CLIA [id number] [address] [place] MCHC (RBC) [Mass/Vol] 31.2 g/dL Normal 30.5-36.0 [facility] Comment on above: Order Comment: Speci men Type: BLOOD SPECIMEN Ordering Facility: [facility] Address: [address] [place] [address] Performed By: #### 5 8410-2 #### [facility] CLIA [id number] [address] [place] [address] [place] MCV (RBC) [Entitic vol] 109.7 fL High 80.0-100.0 [facility] Comment on above: Order Comment: Speci men Type: BLOOD SPECIMEN Ordering Facility: [facility] Address: [address] [place] [address] Performed By: #### 5 8410-2 #### [facility] CLIA [id number] [address] [place] [address] [place] Nucleated RBC (Bld) [#/Vol] 10*3/uL Normal <0.01 [facility] Comment on above: Order Comment: Speci men Type: BLOOD SPECIMEN Ordering Facility: [facility] Address: [address] [place] [address] Performed By: #### 5 8410-2 #### [facility] CLIA [id number] [address] [place] [address] [place] Platelet mean volume (Bld) [Entitic vol] 10.5 fL Normal 9.0-12.7 [facility] Comment on above: Order Comment: Speci men Type: BLOOD SPECIMEN Ordering Facility: [facility] Address: [address] [place] [address] Performed By: #### 5 8410-2 #### [facility] CLIA [id number] [address] [place] [address] [place] Platelets (Bld) [#/Vol] 373 10*3/uL Normal 150-400 [facility] Comment on above: Order Comment: Speci men Type: BLOOD SPECIMEN Ordering Facility: [facility] Address: [address] [place] [address] Performed By: #### 5 8410-2 #### [facility] CLIA [id number] [address] [place] [address] [place] RBC (Bld) [#/Vol] 4.12 10*6/uL Low 4.20-6.00 [facility] Comment on above: Order Comment: Speci men Type: BLOOD SPECIMEN Ordering Facility: [facility] Address: [address] [place] [address] Performed By: #### 5 8410-2 #### [facility] CLIA [id number] [address] [place] [address] [place] WBC (Bld) [#/Vol] 7.19 10*3/uL Normal 3.70-11.00 [facility] Comment on above: Order Comment: Speci men Type: BLOOD SPECIMEN Ordering Facility: [facility] Address: [address] [place] [address] Performed By: #### 5 8410-2 #### [facility] CLIA [id number] [address] [place] [address] [place] Basic metabolic 2000 panelon 04-29-2024 Anion gap [Moles/Vol] 11 mmol/L Normal 8-15 [facility] Comment on above: Order Comment: Speci men Type: BLOOD SPECIMENOrdering Facility: [facility] Address: [address] [place] [address] Performed By: #### 2 4321-2 ####[facility] [id number] [place] [address] [place] Calcium [Mass/Vol] 9.4 mg/dL Normal 8.5-10.2 [facility] Comment on above: Order Comment: Speci men Type: BLOOD SPECIMENOrdering Facility: [facility] Address: [address] [place] [address] Performed By: #### 2 4321-2 ####[facility] [id number] [address] [place] Chloride [Moles/Vol] 102 mmol/L Normal 98-107 [facility] Comment on above: Order Comment: Speci men Type: BLOOD SPECIMENOrdering Facility: [facility] Address: [address] [place] [address] Performed By: #### 2 4321-2 ####[facility] [id number] [place] [address] CO2 [Moles/Vol] 26 mmol/L Normal 22-30 [facility] Comment on above: Order Comment: Speci men Type: BLOOD SPECIMENOrdering Facility: [facility] Address: [address] [place] [address] Performed By: #### 2 4321-2 ####[facility] [id number] [address] [place] Creatinine [Mass/Vol] 1.42 mg/dL High 0.73-1.22 [facility] Comment on above: Order Comment: Speci men Type: BLOOD SPECIMENOrdering Facility: [facility] Address: [address] [place] [address] Performed By: #### 2 4321-2 ####[facility] [id number] [address] Creatinine and Glomerular filtration rate.predicted panel (S/P/Bld) 52 mL/min/1.73m??? Low >=60 [facility] Comment on above: Order Comment: Speci men Type: BLOOD SPECIMENOrdering Facility: [facility] Address: [address] [place] [address] Result Comment: Bianca mated Glomerular Filtration Rate (eGFR) is calculated using the 2020 CKD-EPI creatinine equation. This equation utilizes serum creatinine, sex, and age as parameters. The creatinine assay has traceable calibration to isotope dilution-mass spectrometry. Refer to KDIGO guidelines for clinical interpretation. In patients with unstable renal function, e.g. those with acute kidney injury, the eGFR may not accurately reflect actual GFR. Performed By: #### 2 4321-2 ####[facility] [id number] [address] OF [facility] Glucose [Mass/Vol] 92 mg/dL Normal 74-99 [facility] Comment on above: Order Comment: Rosii rafita Type: BLOOD SPECIMENOrdering Facility: [facility] Address: [address] [place] [address] Result Comment: The [place] [employer] (ADA) provides guidance for cutoff values for fasting glucose and random glucose. The ADA defines fasting as no caloric intake for at least 8 hours. Fasting plasma glucose results between 100 to 125 mg/dL indicate increased risk for diabetes (prediabetes). Fasting plasma glucose results greater than or equal to 126 mg/dL meet the criteria for diagnosis of diabetes. In the absence of unequivocal hyperglycemia, results should be confirmed by repeat testing. In a patient with classic symptoms of hyperglycemia or hyperglycemic crisis, random plasma glucose results greater than or equal to 200 mg/dL meet the criteria for diagnosis of diabetes. Reference: Standards of Medical Care in Diabetes 2016, [place] [employer]. Diabetes Care. 2016.39(Suppl 1). Performed By: #### 2 4321-2 ####[facility]ORY[facility] [id number] [place] [address] [place] Potassium [Moles/Vol] Normal [facility] Comment on above: Order Comment: Rosii rafita Type: BLOOD SPECIMENOrdering Facility: [facility] Address: [address] [place] [address] Result Comment: Unab le to assay due to interference from hemolysis. Suggest reorder as clinically indicated. Performed By: #### 2 4321-2 ####[facility]ORY[facility] [id number] [place] [address] [place] Sodium [Moles/Vol] 139 mmol/L Normal 136-144 [facility] Comment on above: Order Comment: Rosii rafita Type: BLOOD SPECIMENOrdering Facility: [facility] Address: [address] [place] [address] Performed By: #### 2 4321-2 ####[facility]ORY[facility] [id number] [address] [place] Urea nitrogen [Mass/Vol] 56 mg/dL High 9-24 [facility] Comment on above: Order Comment: Rosii men Type: BLOOD SPECIMENOrdering Facility: [facility] Address: [address] [place] [address] Performed By: #### 2 4321-2 ####[facility]ORY[facility] [id number] [address] [place] CASE MANAGEMon 04-29-2024 CASE MANAGEM HNO ID: [id number] Author: GHASSAN MENDIETA RN Service: ? Author Type: Registered Nurse Type: Care Mgt Progress Note Filed: 04/29/2024 09:04 Note Text: CARE MANAGEMENT PROGRESS NOTE SERVICE DATE: 04/29/2024 SERVICE TIME: 9:03 AM LOS: 13 days Chart reviewed. Insurance precert is pending for [facility]. Will need precert and cot transport. Daughter Lindsay will need updated. Spouse has been in and out of [facility] and [facility] last several weeks and was back in ED yesterday per daughter. CM to follow for transitional care planning. SIGNATURE: Ghassan Mendieta RN PATIENT NAME: Jonathon Perales DATE: April 29, 2024 TIME: 9:03 AM PAGER/CONTACT #: [phone] Normal [facility] CBC panel Auto (Bld)on 04-29 Erythrocyte distribution width (RBC) [Ratio] 12.8 % Normal 11.5-15.0 [facility] Comment on above: Order Comment: Speci men Type: BLOOD SPECIMENOrdering Facility: [facility] Address: [address] [place] [address] Performed By: #### 5 8410-2 ####[facility] LABORATORYCLIA [id number] [place] [address] [place] Hematocrit (Bld) [Volume fraction] 39.1 % Normal 39.0-51.0 [facility] Comment on above: Order Comment: Speci men Type: BLOOD SPECIMENOrdering Facility: [facility] Address: [address] [place] [address] Performed By: #### 5 8410-2 ####[facility] LABORATORYCLIA [id number] [place] [address] [place] Hemoglobin (Bld) [Mass/Vol] 13.2 g/dL Normal 13.0-17.0 [facility] Comment on above: Order Comment: Speci men Type: BLOOD SPECIMENOrdering Facility: [facility] Address: [address] [place] [address] Performed By: #### 5 8410-2 ####[facility] LABORATORYCLIA [id number] [address] MCH (RBC) [Entitic mass] 34.6 pg High 26.0-34.0 [facility] Comment on above: Order Comment: Speci men Type: BLOOD SPECIMENOrdering Facility: [facility] Address: [address] [place] [address] Performed By: #### 5 8410-2 ####[facility] LABORATORYCLIA [id number] [address] MCHC (RBC) [Mass/Vol] 33.8 g/dL Normal 30.5-36.0 [facility] Comment on above: Order Comment: Speci men Type: BLOOD SPECIMENOrdering Facility: [facility] Address: [address] [place] [address] Performed By: #### 5 8410-2 ####[facility] LABORATORYCLIA [id number] [address] MCV (RBC) [Entitic vol] 102.4 fL High 80.0-100.0 [facility] Comment on above: Order Comment: Speci men Type: BLOOD SPECIMENOrdering Facility: [facility] Address: [address] [place] [address] Performed By: #### 5 8410-2 ####[facility]ORATORYCLIA [id number] [address] Nucleated RBC (Bld) [#/Vol] 10*3/uL Normal <0.01 [facility] Comment on above: Order Comment: Speci men Type: BLOOD SPECIMENOrdering Facility: [facility] Address: [address] [place] [address] Performed By: #### 5 8410-2 ####[facility]ORATORYCLIA [id number] [address] Platelet mean volume (Bld) [Entitic vol] 10.0 fL Normal 9.0-12.7 [facility] Comment on above: Order Comment: Speci men Type: BLOOD SPECIMENOrdering Facility: [facility] Address: [address] [place] [address] Performed By: #### 5 8410-2 ####[facility] LABORATORYCLIA [id number] [address] Platelets (Bld) [#/Vol] 378 10*3/uL Normal 150-400 [facility] Comment on above: Order Comment: Speci men Type: BLOOD SPECIMENOrdering Facility: [facility] Address: [address] [place] [address] Performed By: #### 5 8410-2 ####[facility]ORATORYCLIA [id number] [address] RBC (Bld) [#/Vol] 3.82 10*6/uL Low 4.20-6.00 [facility] Comment on above: Order Comment: Speci men Type: BLOOD SPECIMENOrdering Facility: [facility] Address: [address] [place] [address] Performed By: #### 5 8410-2 ####[facility]ORATORYCLIA [id number] [address] WBC (Bld) [#/Vol] 10.25 10*3/uL Normal 3.70-11.00 [facility] Comment on above: Order Comment: Speci men Type: BLOOD SPECIMENOrdering Facility: [facility] Address: [address] [place] [address] Performed By: #### 5 8410-2 ####[facility] LABORATORYCLIA [id number] [address] NUTRITIONon 04-29-2024 NUTRITION HNO ID: [id number] Author: RAIZA HARRISON RD Service: Nutrition Therapy Author Type: Registered Dietitian Type: Nutrition Filed: 04/29/2024 14:28 Note Text: NUTRITION THERAPY PROGRESS NOTE SERVICE DATE: 04/29/2024 SERVICE TIME: 1140 Nutrition Assessment: Recommended Malnutrition Diagnosis: Unable to Identify Malnutrition at this time (04/16/24 1240 : Don Dickson RD) Care Plan: Continue current diet Supplements: Magic Cup Monitor and Evaluation: Meet greater than 75% of estimated needs, Monitor bowel function, Monitor fluid/electrolyte balance, Monitor labs, I/Os, vital signs, weight Interval History: LOS d 13. Corpak removed. Diet per speech--->puree/nectar liquids. Rehab plans noted. Tolerating diet well, but very much dislikes it. Intake History: Current Nutrition Intake: Greater than 75% estimated energy needs Dosing Weight: 68.5 kg (151 lb) Dosing Weight Type: Current weight Estimated kilocalorie needs: 7579-0218 Calorie Calculation Method: 25-30 kcals/kg Estimated protein needs (grams): 82-109 Grams protein determined by: 1.2 - 1.6 g/kg Diet Orders (From admission, onward) Start Ordered 04/27/24 1515 DIET FOOD CONSISTENCY CONTROLLED START NOW Question Answer Comment Food Consistency PUREED (L4) Liquid Consistency MILDLY THICK (L2)/NECTAR Feeding instructions for nursing Meds crushed in apple sauce 04/27/24 1500 Anthropometrics: Height: 170.2 cm (5' 7") Weight: 68.6 kg (151 lb 3.8 oz) Body mass index is 23.69 kg/m?. MNT Billing: $ Reassessment: 1-15 minutes SIGNATURE: Raiza Harrison RD PATIENT NAME: Jonathon Perales DATE: April 29, 2024 TIME: 10:05 AM Normal [facility] Basic metabolic 2000 panelon 04-28-2024 Anion gap [Moles/Vol] 13 mmol/L Normal 8-15 [facility] Comment on above: Order Comment: Speci men Type: BLOOD SPECIMENOrdering Facility: [facility] Address: [address] [place] [address] Performed By: #### 1 9123-9, 2777-1, 78630-7 ####[facility] LABORATORYCLIA [id number] [place] [address] [place] Calcium [Mass/Vol] 10.7 mg/dL High 8.5-10.2 [facility] Comment on above: Order Comment: Speci men Type: BLOOD SPECIMENOrdering Facility: [facility] Address: [address] [place], [place] [address] Performed By: #### 1 9123-9, 2777-1, 42042-9 ####[facility]ORATORYCLIA [id number] [place] [address] [place] Chloride [Moles/Vol] 101 mmol/L Normal 98-107 [facility] Comment on above: Order Comment: Speci men Type: BLOOD SPECIMENOrdering Facility: [facility] Address: [address] [place] [address] Performed By: #### 1 9123-9, 2777-1, 34295-1 ####[facility] LABORATORYCLIA [id number] [place] [address] [place] CO2 [Moles/Vol] 26 mmol/L Normal 22-30 [facility] Comment on above: Order Comment: Speci men Type: BLOOD SPECIMENOrdering Facility: [facility] Address: [address] [place] [address] Performed By: #### 1 9123-9, 2777-1, 00275-3 ####[facility]ORATORYCLIA [id number] [place] [address] [place] Creatinine [Mass/Vol] 1.36 mg/dL High 0.73-1.22 [facility] Comment on above: Order Comment: Speci men Type: BLOOD SPECIMENOrdering Facility: [facility] Address: [address] [place] [address] Performed By: #### 1 9123-9, 2777-1, 09912-0 ####[facility]ORATORYCLIA [id number] [address] Creatinine and Glomerular filtration rate.predicted panel (S/P/Bld) 55 mL/min/1.73m??? Low >=60 [facility] Comment on above: Order Comment: Speci men Type: BLOOD SPECIMENOrdering Facility: [facility] Address: [address] [place] [address] Result Comment: Binaca mated Glomerular Filtration Rate (eGFR) is calculated using the 2020 CKD-EPI creatinine equation. This equation utilizes serum creatinine, sex, and age as parameters. The creatinine assay has traceable calibration to isotope dilution-mass spectrometry. Refer to KDIGO guidelines for clinical interpretation. In patients with unstable renal function, e.g. those with acute kidney injury, the eGFR may not accurately reflect actual GFR. Performed By: #### 1 9123-9, 2777-1, 01197-5 ####[facility]ORATORYCLIA [id number] [place] [address] [place] Glucose [Mass/Vol] 100 mg/dL High 74-99 [facility] Comment on above: Order Comment: Speci men Type: BLOOD SPECIMENOrdering Facility: [facility] Address: [address] [place] [address] Result Comment: The [place] [employer] (ADA) provides guidance for cutoff values for fasting glucose and random glucose. The ADA defines fasting as no caloric intake for at least 8 hours. Fasting plasma glucose results between 100 to 125 mg/dL indicate increased risk for diabetes (prediabetes). Fasting plasma glucose results greater than or equal to 126 mg/dL meet the criteria for diagnosis of diabetes. In the absence of unequivocal hyperglycemia, results should be confirmed by repeat testing. In a patient with classic symptoms of hyperglycemia or hyperglycemic crisis, random plasma glucose results greater than or equal to 200 mg/dL meet the criteria for diagnosis of diabetes. Reference: Standards of Medical Care in Diabetes 2016, [place] [employer]. Diabetes Care. 2016.39(Suppl 1). Performed By: #### 1 9123-9, 277-, 58752-3 ####[facility] LABORATORYCLIA [id number] [place] [id number] [place] Potassium [Moles/Vol] 4.8 mmol/L Normal 3.7-5.1 [facility] Comment on above: Order Comment: Speci men Type: BLOOD SPECIMENOrdering Facility: [facility] Address: [address] [place] [id number] Performed By: #### 1 9123-9, 2777-, 61507-8 ####[facility] LABORATORYCLIA [id number] [place] [address] [place] Sodium [Moles/Vol] 140 mmol/L Normal 136-144 [facility] Comment on above: Order Comment: Speci men Type: BLOOD SPECIMENOrdering Facility: [facility] Address: [address] [place], [place] [address] Performed By: #### 1 9123-9, 2777-1, 03119-3 ####[facility] LABORATORYCLIA [id number] [place] [address] [facility] Urea nitrogen [Mass/Vol] 45 mg/dL High 9-24 [facility] Comment on above: Order Comment: Speci men Type: BLOOD SPECIMENOrdering Facility: [facility] Address: [address] [place], [place] [address] Performed By: #### 1 9123-9, 2777-1, 13229-9 ####[facility]ORATORYCLIA [id number] [place] [address] [facility] CASE MANAGEMon 04-28-2024 CASE MANAGEM HNO ID: [id number] Author: GHASSAN MENDIETA RN Service: ? Author Type: Registered Nurse Type: Care Mgt Progress Note Filed: 04/28/2024 11:26 Note Text: CARE MANAGEMENT PROGRESS NOTE SERVICE DATE: 04/28/2024 SERVICE TIME: 11:18 AM LOS: 12 days Spoke with daughter Lindsay via phone. [facility] patient and will be starting precert once OT notes are updated. [facility] Passed MBSS and has diet with Corpak removed. Will need precert and cot transport. Per daughter, patient's spouse is now back in [facility] for seizure and UTI after recent inpatient stay with spouse's discharge to [facility]. CM to follow for transitional care planning. SIGNATURE: Ghassan Mendieta RN PATIENT NAME: Jonathon Perales DATE: April 28, 2024 TIME: 11:18 AM PAGER/CONTACT #: [phone] Normal [facility] CBC panel Auto (Bld)on 04-28 Erythrocyte distribution width (RBC) [Ratio] 12.2 % Normal 11.5-15.0 [facility] Comment on above: Order Comment: Speci men Type: BLOOD SPECIMENOrdering Facility: [facility] Address: [address] [place] [address] Performed By: #### 5 8410-2 ####[facility] LABORATORYCLIA [id number] [address] Hematocrit (Bld) [Volume fraction] 45.4 % Normal 39.0-51.0 [facility] Comment on above: Order Comment: Speci men Type: BLOOD SPECIMENOrdering Facility: [facility] Address: [address] [place] [address] Performed By: #### 5 8410-2 ####[facility] LABORATORYCLIA [id number] [address] OF [facility] Hemoglobin (Bld) [Mass/Vol] 15.6 g/dL Normal 13.0-17.0 [facility] Comment on above: Order Comment: Speci men Type: BLOOD SPECIMENOrdering Facility: [facility] Address: [address] [place] [address] Performed By: #### 5 8410-2 ####[facility] LABORATORYCLIA [id number] [address] STATES OF [facility] MCH (RBC) [Entitic mass] 34.7 pg High 26.0-34.0 [facility] Comment on above: Order Comment: Speci men Type: BLOOD SPECIMENOrdering Facility: [facility] Address: [address] [place] [address] Performed By: #### 5 8410-2 ####[facility]ORATORYCLIA [id number] [address] [place] MCHC (RBC) [Mass/Vol] 34.4 g/dL Normal 30.5-36.0 [facility] Comment on above: Order Comment: Speci men Type: BLOOD SPECIMENOrdering Facility: [facility] Address: [address] [place] [address] Performed By: #### 5 8410-2 ####[facility]ORATORYCLIA [id number] [address] MCV (RBC) [Entitic vol] 101.1 fL High 80.0-100.0 [facility] Comment on above: Order Comment: Speci men Type: BLOOD SPECIMENOrdering Facility: [facility] Address: [address] [place] [address] Performed By: #### 5 8410-2 ####[facility]ORATORYCLIA [id number] [place] [address] [place] Nucleated RBC (Bld) [#/Vol] 10*3/uL Normal <0.01 [facility] Comment on above: Order Comment: Speci men Type: BLOOD SPECIMENOrdering Facility: [facility] Address: [address] [place] [address] Performed By: #### 5 8410-2 ####[facility]ORATORYCLIA [id number] [place] [address] [place] Platelet mean volume (Bld) [Entitic vol] 9.7 fL Normal 9.0-12.7 [facility] Comment on above: Order Comment: Speci men Type: BLOOD SPECIMENOrdering Facility: [facility] Address: [address] [place] [address] Performed By: #### 5 8410-2 ####[facility]ATORYCLIA [id number] [place] [address] [place] Platelets (Bld) [#/Vol] 554 10*3/uL High 150-400 [facility] Comment on above: Order Comment: Speci men Type: BLOOD SPECIMENOrdering Facility: [facility] Address: [address] [place] [address] Performed By: #### 5 8410-2 ####[facility]ATORYCLIA [id number] [place] [address] [place] RBC (Bld) [#/Vol] 4.49 10*6/uL Normal 4.20-6.00 [facility] Comment on above: Order Comment: Speci men Type: BLOOD SPECIMENOrdering Facility: [facility] Address: [address] [place] [address] Performed By: #### 5 8410-2 ####[facility]ORATORYCLIA [id number] [place] [address] [place] WBC (Bld) [#/Vol] 13.12 10*3/uL High 3.70-11.00 [facility] Comment on above: Order Comment: Speci men Type: BLOOD SPECIMENOrdering Facility: [facility] Address: [address] [place] [address] Performed By: #### 5 8410-2 ####[facility]ORATORYCLIA [id number] [place] [id number] [place] Magnesium SerPl-[facility] Magnesium [Mass/Vol] 2.8 mg/dL High 1.7-2.3 [facility] Comment on above: Order Comment: Speci men Type: BLOOD SPECIMENOrdering Facility: [facility] Address: [address] [place] [address] Performed By: #### 1 9123-9, 2777-1, 68952-4 ####[facility]ORATORYCLIA [id number] [address] [place] Phosphate SerPl-mCncon 04-28 Phosphate [Mass/Vol] 5.0 mg/dL High 2.7-4.8 [facility] Comment on above: Order Comment: Speci men Type: BLOOD SPECIMENOrdering Facility: [facility] Address: [address] [place] [address] Performed By: #### 1 9123-9, 2777-1, 46477-5 ####[facility]ORATORYCLIA [id number] [place] [address] [place] THERAPY NTon 04-28-2024 THERAPY NT HNO ID: [id number] Author: TRAV MCARTHUR OTR/Eriberto Service: Occupational Therapy Author Type: Occupational Therapist Type: Therapy (PT/OT/Speech/Resp) Filed: 04/28/2024 12:12 Note Text: Occupational Therapy Treatment Summary SERVICE DATE: 04/28/2024 SERVICE TIME: 956 to 1029 ROOM: [id number] OT 6 Clicks Score: 14 DISCHARGE RECOMMENDATIONS Acute Rehab Recommended Discharge Disposition Comments: pt highly independent with new CVA. Pt can tolerate intensive level therapies Recommended Discharge Disposition Due to: Patient requires an active, intensive rehabilitation therapy program due to:, decline in functional status requiring daily skilled care, new / worsened cognitive deficits related to current diagnosis, ongoing intervention of multiple therapy disciplines ASSESSMENT Response to Therapy Interventions: Good Participation in Activities, Improved Tolerance for Activity, Low Activity Tolerance, Multiple Ongoing Medical Issues, Cognitive Deficits Mr. Perales was seen today for an occupational therapy treatment session. Pt with ongoing progress towards OT goals today with multiple goals met and updated. With progress made, pt continues to be still functioning well below functional baseline and is an excellent candidate for AR. Anticipate that he will tolerate 3 hours of skilled therapy a day for 5 days a week. PRECAUTIONS Fall Risk, Bed/Chair Alarm CURRENT HOSPITAL COURSE Pt visiting his hospitalized + stroke symptoms; L hemiplegia, aphasia, decreased sensation. + TNK. 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 Was intubated and extubated 04/20. Relevant Past Medical History: CKD, HTN, aortic valve replacement, CAD HOME LIVING Patient Lives With: Family, Other: See Comment Comments: Lives with dtr PRIOR FUNCTIONAL LEVEL Within Functional Limits, Required Assistance, Unable to Report Pt unable to report due to aphasia/dysarthria. Per chart pt lives with dtr in apt, completely independent, active, driving, prior to CVA. His lives in ECF. Baseline Cognition: Oriented to self, Oriented to place, Oriented to time, Oriented to situation SUBJECTIVE Pt pleansant and agreeable to OT evaluation COGNITION Communication Deficits: Expressive Deficits Orientation Deficits: Not oriented to Time, Not oriented to Situation Responsiveness: Awake, Alert Follows Commands: 1-step Commands, Cueing Needed Cueing to Follow Commands: Minimum Attention Deficits: Divided Memory Deficits: (difficult to assess due to aphasia/dysarthria) Executive Function Deficits: Safety Awareness, Judgement, Insight to Deficits, Problem Solving THERAPY DIAGNOSIS Decreased activities of daily living (ADL), Reduced mobility-other, Muscle Weakness (generalized), Unsteadiness on feet, Abnormalities of gait and mobility-other, Signs and Symptoms Involving Cognitive Functions and Awareness TREATMENT INTERVENTIONS Self Half-Way Management (59494) Timed Code Treatment (minutes): 33 Skilled Treatment Time (minutes): 33 Self Half-Way Management (99253) Treatment Minutes: 33 $ Self Half-Way Management (52919) Billed Units: 2 units TRAINING AND EDUCATION PROVIDED Bed Mobility, Benefits of In-Hospital Mobility, Command Following, Expected Functional Level, Grooming Tasks, Functional Mobility Involving ADLs, Lower Extremity Dressing, Role of Occupational Therapy, Positioning, Lower Extremity Bathing, Transfer - Sit to Stand, Upper Extremity Bathing, Upper Extremity Dressing, Memory/Attention, Orientation, Sitting Balance to Improve [place] with ADLs/Self-Care, Toileting , Standing Balance to Improve [place] with ADLs/Self-Care THERAPEUTIC SKILLS USED Activity Dosing, Cues for Sequencing/Proper Technique for Activity, Assessment of Tolerance Including Vitals Response to Activity, Cuing Tactile, Cuing Verbal, Cuing Visual, Physical Assist, Therapeutic Use of Self FUNCTIONAL STATUS Activities of Daily Living Assist Level Additional Information Feeding Minimal Assistance Nestorramiriam pulled at beginning of OT session. Assist with setup and stabilizing items. Grooming Minimal Assistance Facilitated at EOB in unsupported sitting. Cueing for face washing and keeping head elevated as was in a flexed position at beginning. Following washing, OT assisted with shaving activity at EOB. Cueing for maintaining upright posture and keeping neck elevated. Bathing Upper Body Moderate Assistance Facilitated at EOB in unsupported sitting. Assist with maintaining grasp with LUE and support at elbow for washing R side of body. Bathing Lower Body Maximal Assistance Facilitated at EOB. Cueing to use LUE for neuromuscular reeducation. When not using LUE for bathing, OT assisted with positioning on side of body for Wb'ing task. Dressing Upper Body Moderate Assistance Cueing for sequencing of steps and assist with threading over RUE. Pt with good body awareness and c (more content not included)... Normal [facility] Basic metabolic 2000 panelon 04-27-2024 Anion gap [Moles/Vol] 11 mmol/L Normal 8-15 [facility] Comment on above: Order Comment: Speci men Type: BLOOD SPECIMENOrdering Facility: [facility] Address: [address] [place] [address] Performed By: #### 2 4321-2 ####[facility] LABORATORYCLIA [id number] [place] [address] [place] Calcium [Mass/Vol] 10.3 mg/dL High 8.5-10.2 [facility] Comment on above: Order Comment: Speci men Type: BLOOD SPECIMENOrdering Facility: [facility] Address: [address] [place] [address] Performed By: #### 2 4321-2 ####[facility] LABORATORYCLIA [id number] [place] [address] [place] Chloride [Moles/Vol] 97 mmol/L Low 98-107 [facility] Comment on above: Order Comment: Speci men Type: BLOOD SPECIMENOrdering Facility: [facility] Address: [address] [place] [address] Performed By: #### 2 4321-2 ####[facility]ORATORYCLIA [id number] [place] [address] [place] CO2 [Moles/Vol] 27 mmol/L Normal 22-30 [facility] Comment on above: Order Comment: Speci men Type: BLOOD SPECIMENOrdering Facility: [facility] Address: [address] [place] [address] Performed By: #### 2 4321-2 ####[facility]ORATORYCLIA [id number] [place] [address] [place] Creatinine [Mass/Vol] 1.04 mg/dL Normal 0.73-1.22 [facility] Comment on above: Order Comment: Speci men Type: BLOOD SPECIMENOrdering Facility: [facility] Address: [address] [place] [address] Performed By: #### 2 4321-2 ####[facility] LABORATORYCLIA [id number] [address] OF [place] Creatinine and Glomerular filtration rate.predicted panel (S/P/Bld) 75 mL/min/1.73m??? Normal >=60 [facility] Comment on above: Order Comment: Speci men Type: BLOOD SPECIMENOrdering Facility: [facility] Address: [address] [place] [address] Result Comment: Bianca mated Glomerular Filtration Rate (eGFR) is calculated using the 2020 CKD-EPI creatinine equation. This equation utilizes serum creatinine, sex, and age as parameters. The creatinine assay has traceable calibration to isotope dilution-mass spectrometry. Refer to KDIGO guidelines for clinical interpretation. In patients with unstable renal function, e.g. those with acute kidney injury, the eGFR may not accurately reflect actual GFR. Performed By: #### 2 4321-2 ####[facility] LABORATORYCLIA [id number] [place] [address] [place] Glucose [Mass/Vol] 134 mg/dL High 74-99 [facility] Comment on above: Order Comment: Speci men Type: BLOOD SPECIMENOrdering Facility: [facility] Address: [address] [place] [address] Result Comment: The [place] Diabetes [employer] (ADA) provides guidance for cutoff values for fasting glucose and random glucose. The ADA defines fasting as no caloric intake for at least 8 hours. Fasting plasma glucose results between 100 to 125 mg/dL indicate increased risk for diabetes (prediabetes). Fasting plasma glucose results greater than or equal to 126 mg/dL meet the criteria for diagnosis of diabetes. In the absence of unequivocal hyperglycemia, results should be confirmed by repeat testing. In a patient with classic symptoms of hyperglycemia or hyperglycemic crisis, random plasma glucose results greater than or equal to 200 mg/dL meet the criteria for diagnosis of diabetes. Reference: Standards of Medical Care in Diabetes 2016, [place] [employer]. Diabetes Care. 2016.39(Suppl 1). Performed By: #### 2 4321-2 ####[facility] LABORATORYCLIA [id number] [place] [address] [place] Potassium [Moles/Vol] 4.6 mmol/L Normal 3.7-5.1 [facility] Comment on above: Order Comment: Speci men Type: BLOOD SPECIMENOrdering Facility: [facility] Address: [address] [id number] Performed By: #### 2 4321-2 ####[facility]ORATORYCLIA [id number] [place] [address] [place] Sodium [Moles/Vol] 135 mmol/L Low 136-144 [facility] Comment on above: Order Comment: Speci men Type: BLOOD SPECIMENOrdering Facility: [facility] Address: [address] [place], [place] [id number] Performed By: #### 2 4321-2 ####[facility]ORATORYCLIA [id number] [place] [address] [facility] Urea nitrogen [Mass/Vol] 33 mg/dL High 9-24 [facility] Comment on above: Order Comment: Speci men Type: BLOOD SPECIMENOrdering Facility: [facility] Address: [address] [place] [address] Performed By: #### 2 4321-2 ####[facility] LABORATORYCLIA [id number] [address] [place] [id number] [facility] CASE MANAGEMon 04-27-2024 CASE MANAGEM HNO ID: [id number] Author: GHASSAN MENDIETA RN Service: ? Author Type: Registered Nurse Type: Care Mgt Progress Note Filed: 04/27/2024 13:36 Note Text: CARE MANAGEMENT PROGRESS NOTE SERVICE DATE: 04/27/2024 SERVICE TIME: 1:32 PM LOS: 11 days Spoke with daughter Lindsay via phone. Plan is for acute rehab pending clinical course. [facility] following for clinical and behavioral improvement. Patient currently with restraints and [employer]. [facility] is not able to accept due to patient's insurance is out of network. [facility] is not able to accept due to patient does not meet LTACH criteria. Will need nutrition plan, restraint/sitter-free, accepting Acute Rehab, precert, and cot transport. Patient's spouse was recently patient at [facility] and discharged to [facility]. Daughter states that the eventual plan is for patient to be in same room as spouse at [facility]. CM to follow for transitional care planning. SIGNATURE: Ghassan Mendieta RN PATIENT NAME: Jonathon Perales DATE: April 27, 2024 TIME: 1:32 PM PAGER/CONTACT #: [phone] [facility] THERAPY NTon 04-27-2024 THERAPY NT HNO ID: [id number] Author: JL PERAZA CCC-CAT OPERATOR Service: Speech/Swallow Author Type: Speech Language Pathologist Type: Therapy (PT/OT/Speech/Resp) Filed: 04/27/2024 15:17 Note Text: Speech Therapy Modified Barium Swallow Study Evaluation SERVICE DATE: 04/27/2024 SERVICE TIME: 1430 to 1450 ROOM: [id number] ([facility]) IMPRESSION: Evidence of: Oropharyngeal dysphagia Diet Recommendations: Pureed IDDSI Level 4 Mildly Thick Liquids IDDSI Level 2 (Maurice Thick) Medications crushed in puree (pudding/applesauce) Swallowing Precautions Recommendations: 1:1 Supervision Alert (patient should be fully alert for P.O. intake) Alternate bites and sips No straws Feed / Eat at a slow rate Sit upright 90 degrees for all PO Small Bite/Sip Nursing Recommendations: See swallow guide posted in patients room, Reinforce use of swallowing strategies Recommended Discharge Disposition: Acute Rehab Justification for Recommended Discharge Disposition: Patient requires an intensive inpatient rehabilitation therapy program due to:, requires active, intensive and ongoing intervention of multiple therapy disciplines, complexity requiring a multi-disciplinary team approach, aspiration risk requiring ongoing medical management, dysphagia requiring frequent assessment and diet modification, expressive language/communication deficits, receptive language/communication deficits, motor speech impairment (dysarthria/apraxia), new/worsened cognitive deficits related to current diagnosis. Patient would benefit from intensive therapies, 3 hours of therapy a day to maximize potentialto return to baseline level of function. 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 Confluent petechial hemorrhage. No space-occupying hematoma. Localized mass effect. 6-3: extubated Rehabilitation Precautions: Dysphagia, Aspiration Precautions, Cognitive Linguistics Deficits, Communication Deficits, Modified Diet, Visual Deficits Reason for Speech Therapy Consult: swallowing and speech/cognitive evaluation Relevant Past Medical History: HTN, HPL, CAD, JAIRO Response to Therapy Interventions: Aspiration Risk, Aphasia, Cognitive Deficits, Confusion interferes with education, Multiple medical concerns, Visual Field Deficit Subjective: Patient is alert and able to participate in study. Dysarthric. Current Status Oral Hygiene: Clear, dry oral cavity Dentition: Edentulous Current Feeding Method: Small Bore Feeding Tube Current Diet Textures: NPO with alternative means of nutrition/hydration/me dication Current Level Of Communication: Verbal, Aphasia, Dysarthria Current Management Of Secretions: Requires cueing to manage Oral Motor Exam: Within Functional Limits Except Facial Symmetry Impaired: Left Labial Assessment: Poor labial seal Labial ROM Impaired: Left Labial Strength Impaired: Left Lingual Assessment: Generalized weakness Lingual ROM Impaired: Bilateral, Protrusion Lingual Protrusion Deviation: Left Lingual Strength Impaired: Left, Right, Bilateral Palatal Elevation: Within Functional Limits Swallow Position Of Patient During Assessment: Upright In Chair Compensatory Strategies Utilized During Assessment: 1:1 Supervision, Alert (patient should be fully alert for P.O. intake), Feed / Eat at a slow rate, Sit upright 90 degrees for all PO, Small Bite/Sip, No straws Instrumental Swallow Assessment Type: Modified Barium Swallow Study Modified Barium Swallow Views: Lateral position Barium Consistencies Provided: Thin Liquids, Mildly Thick Liquids (Maurice Thick), Pureed Solids Oral Phase: Lip Closure: Escape progressing to mid-chin Tongue Control During Bolus Hold: Escape to lateral buccal cavity and/or floor of mouth Bolus Preparation/Masticatio n: Mastication not assessed Mastication Not Assessed Secondary To: Aspiration Bolus Transport/Lingual Motion: Slowed Tongue Motion for A-P movement of the bolus Oral Residue: Trace residue lining oral structures Initiation Of Pharyngeal Swallow: Bolus head at posterior angle of ramus Pharyngeal Phase: Soft Palate Elevation: No bolus between soft palate/pharyngeal wall Laryngeal Elevation: No superior movement of thyroid cartilage Anterior Hyoid Excursion: Partial anterior movement Epiglottic Movement: Partial inversion Laryngeal Vestibular Closure/Height of the Swallow: Incomplete - narrow column of air/contrast in laryngeal vestibule Pharyngeal Stripping Wave: Complete Pharyngeal Contraction (A/P View Only): Not tested Pharyngoesophageal Segment Opening: Partial distension/partial duration with partial obstruction of flow of bolus: See images below Tongue Base Retraction: No bolus between tongue base and posterior pharyngeal wall Pharyngeal Residue: Trace residue within or on the pharyngeal structures, Residue within the valleculae following (more content not included)... [facility] THERAPY NT HNO ID: [id number] Author: COLLETTE QUIROS PTA Service: Physical Therapy Author Type: Scale Installer Type: Therapy (PT/OT/Speech/Resp) Filed: 04/27/2024 09:31 Note Text: Attestation signed by Robby Hawley, PT at 04/27/2024 4:24 PM I reviewed and agree with the documentation corresponding to this therapy visit. SIGNATURE: Robby Hawley, PT DATE: April 27, 2024 TIME: 4:24 PM Physical Therapy Treatment Summary SERVICE DATE: 04/27/2024 SERVICE TIME: 857 to 920 ROOM: [id number] 6 Clicks Score: 12 DISCHARGE RECOMMENDATIONS Acute Rehab Recommended Discharge Disposition Comments: pt. functioning below baseline and is a great candidate for acute rehab; can tolerate 3hours of therapy daily, 5x/week Recommended Discharge Disposition Due to: Patient requires an active, intensive rehabilitation therapy program due to:, ADL impairment resulting in caregiver dependence, ataxia, high level balance deficits, less than 3/5 weakness noted in:, motor planning deficits, coordination deficits, new / worsened cognitive deficits related to current diagnosis, ongoing intervention of multiple therapy disciplines, decline in functional status requiring daily skilled care ASSESSMENT Response to Therapy Interventions: Good Participation in Activities Patient continues to require increased levels of assist with all mobility tasks. Patient able to take side steps EOB with maximal assist. Patient continues to be significantly below baseline functioning at this time. continue to recommend acute care to improve strength, ROM, balance,endurance, normalized gait pattern, and independence with mobility tasks to prior level of function for safe return to home activity. PRECAUTIONS Bed/Chair Alarm, Fall Risk, Lines/Tubes/Drains CURRENT HOSPITAL COURSE Pt visiting his hospitalized + stroke symptoms; L hemiplegia, aphasia, decreased sensation. + TNK. 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 Was intubated and extubated 04/20. Relevant Past Medical History: CKD, HTN, aortic valve replacement, CAD HOME LIVING Patient Lives With: Family, Other: See Comment Comments: Lives with dtr PRIOR FUNCTIONAL LEVEL Within Functional Limits, Required Assistance, Unable to Report Pt unable to report due to aphasia/dysarthria. Per chart pt lives with dtr in apt, completely independent, active, driving, prior to CVA. His lives in ECF. SUBJECTIVE Agreeable to PT THERAPY DIAGNOSIS Reduced mobility-other, Decreased activities of daily living (ADL), Muscle Weakness (generalized), Abnormalities of gait and mobility-other, Unsteadiness on feet, Paralytic gait, Ataxic gait TREATMENT INTERVENTIONS Therapeutic Activity (94394) Therapeutic Activity (44513) Treatment Minutes: 23 $ Therapeutic Activity (28076) Billed Units: 2 units Patient completed BLE AAROM/strengthening (ankle pump, quad set, heel slide to resisted hip extension, hip abd/add to neutral) x 12 reps with minimal amount of assist. Cuing/assist with proper movement/techniques with bed mobility, scooting, EOB sitting balance/postural control and proper UE support at sides, assist with LUE placement, transfers to standing, and side stepping EOB. Positioned for comfort at end of session. Bed alarm on, call light in reach, daughter at bedside. Timed Code Treatment (minutes): 23 Skilled Treatment Time (minutes): 23 TRAINING AND EDUCATION PROVIDED Bed Mobility, Exercise Program, Gait Pattern, Reduction of Deviations, Positioning, Transfers, Sitting Balance THERAPEUTIC SKILLS USED Cues for Sequencing/Proper Technique for Activity, Cuing Tactile, Cuing Verbal, Cuing Visual, Facilitation of Joint Range of Motion, Management of Critical Lines, Tubes and/or Drains, Movement Facilitation, Physical Assist, Postural Alignment Correction FUNCTIONAL STATUS mobility performed during session in bold, other mobility completed during prior session and may no longer be correct or appropriate to complete. Bed Mobility Supine To Sit: Moderate Assistance HOB elevated, via long sit pivot, assist with trunk and LEs, cuing for proper movements Sit to Supine: Moderate Assistance assist with BLE via right log roll technique Transfers Sit To Stand: Moderate Assistance cuing /assist to scoot forward, RUE on this CUSHION INSTALLER, powering up with LEs Stand To Sit: Moderate Assistance cuing/assist to square up to seated surface, proper UE support, eccentric control Bed to Chair Gait Maximal Assistance Gait Device: Hand Held Assist General Deviations/Observation s: Morena decreased, Flexed trunk posture, Ataxic gait, Arm swing decreased, Non-functional gait speed, Narrow Base of Support, Shuffling Gait, Step length decreased, Trunk Control Decreased, Path (more content not included)... Normal [facility] Basic metabolic 2000 panelon 04-26-2024 Anion gap [Moles/Vol] 12 mmol/L Normal 8-15 [facility] Comment on above: Order Comment: Speci men Type: BLOOD SPECIMENOrdering Facility: [facility] Address: [address] [place] [address] Performed By: #### 2 4321-2 ####[facility]ORATORYCLIA [id number] [place] [address] [place] Calcium [Mass/Vol] 10.3 mg/dL High 8.5-10.2 [facility] Comment on above: Order Comment: Speci men Type: BLOOD SPECIMENOrdering Facility: [facility] Address: [address] [place] [address] Performed By: #### 2 4321-2 ####[facility]ORATORYCLIA [id number] [place] [address] [place] Chloride [Moles/Vol] 98 mmol/L Normal 98-107 [facility] Comment on above: Order Comment: Speci men Type: BLOOD SPECIMENOrdering Facility: [facility] Address: [address] [place] [address] Performed By: #### 2 4321-2 ####[facility]ORATORYCLIA [id number] [place] [address] [place] CO2 [Moles/Vol] 26 mmol/L Normal 22-30 [facility] Comment on above: Order Comment: Speci men Type: BLOOD SPECIMENOrdering Facility: [facility] Address: [address] [place] [address] Performed By: #### 2 4321-2 ####[facility]ATORYCLIA [id number] [place] [address] [place] Creatinine [Mass/Vol] 1.05 mg/dL Normal 0.73-1.22 [facility] Comment on above: Order Comment: Speci men Type: BLOOD SPECIMENOrdering Facility: [facility] Address: [address] [place] [address] Performed By: #### 2 4321-2 ####[facility]ORATORYCLIA [id number] [address] [place] Creatinine and Glomerular filtration rate.predicted panel (S/P/Bld) 74 mL/min/1.73m??? Normal >=60 [facility] Comment on above: Order Comment: Rosimarine eller Type: BLOOD SPECIMENOrdering Facility: [facility] Address: [address] [place] [address] Result Comment: Bianca mated Glomerular Filtration Rate (eGFR) is calculated using the 2020 CKD-EPI creatinine equation. This equation utilizes serum creatinine, sex, and age as parameters. The creatinine assay has traceable calibration to isotope dilution-mass spectrometry. Refer to KDIGO guidelines for clinical interpretation. In patients with unstable renal function, e.g. those with acute kidney injury, the eGFR may not accurately reflect actual GFR. Performed By: #### 2 4321-2 ####[facility]ORATORYCLIA [id number] [place] [address] [place] Glucose [Mass/Vol] 129 mg/dL High 74-99 [facility] Comment on above: Order Comment: Lyndsey eller Type: BLOOD SPECIMENOrdering Facility: [facility] Address: [address] [place] [address] Result Comment: The [place] Diabetes Association (ADA) provides guidance for cutoff values for fasting glucose and random glucose. The ADA defines fasting as no caloric intake for at least 8 hours. Fasting plasma glucose results between 100 to 125 mg/dL indicate increased risk for diabetes (prediabetes). Fasting plasma glucose results greater than or equal to 126 mg/dL meet the criteria for diagnosis of diabetes. In the absence of unequivocal hyperglycemia, results should be confirmed by repeat testing. In a patient with classic symptoms of hyperglycemia or hyperglycemic crisis, random plasma glucose results greater than or equal to 200 mg/dL meet the criteria for diagnosis of diabetes. Reference: Standards of Medical Care in Diabetes 2016, [place] [employer]. Diabetes Care. 2016.39(Suppl 1). Performed By: #### 2 4321-2 ####[facility]ATORYCLIA [id number] [place] [address] [place] Potassium [Moles/Vol] 4.7 mmol/L Normal 3.7-5.1 [facility] Comment on above: Order Comment: Speci men Type: BLOOD SPECIMENOrdering Facility: [facility] Address: [address] [place] [address] Performed By: #### 2 4321-2 ####[facility]ORATORYCLIA [id number] [address] [id number] [place] Sodium [Moles/Vol] 136 mmol/L Normal 136-144 [facility] Comment on above: Order Comment: Speci men Type: BLOOD SPECIMENOrdering Facility: [facility] Address: [address] [place] [address] Performed By: #### 2 4321-2 ####[facility]ATORYCLIA [id number] [place] [address] [place] Urea nitrogen [Mass/Vol] 34 mg/dL High 9-24 [facility] Comment on above: Order Comment: Speci men Type: BLOOD SPECIMENOrdering Facility: [facility] Address: [address] [place] [address] Performed By: #### 2 4321-2 ####[facility]ORATORYCLIA [id number] [address] [place] [id number] [place] THERAPY NTon 04-26-2024 THERAPY NT HNO ID: [id number] Author: JL PERAZA CCC-CAT OPERATOR Service: Speech/Swallow Author Type: Speech Language Pathologist Type: Therapy (PT/OT/Speech/Resp) Filed: 04/26/2024 15:37 Note Text: Speech Therapy Treatment SERVICE DATE: 04/26/2024 SERVICE TIME: 1445 to 1500 ROOM: [id number] IMPRESSION: Swallow Deficits Identified / Suspected: Oropharyngeal dysphagia - swallow has improved since last week. Plan to repeat Modified Barium Swallow Study. Diet Recommendations: NPO with alternative means of nutrition Swallowing Precautions Recommendations: Rigid Oral Hygiene Nursing Recommendations: See swallow guide posted in patients room, Use suction toothbrush with patient, Reinforce use of taught communication strategies Instrumental Swallow Assessment Recommendations: Modified Barium Swallow Study (MBSS) Recommended Discharge Disposition: Acute Rehab Justification for Recommended Discharge Disposition: Patient requires an intensive inpatient rehabilitation therapy program due to:, requires active, intensive and ongoing intervention of multiple therapy disciplines, complexity requiring a multi-disciplinary team approach, aspiration risk requiring ongoing medical management, dysphagia requiring frequent assessment and diet modification, expressive language/communication deficits, receptive language/communication deficits, motor speech impairment (dysarthria/apraxia), new/worsened cognitive deficits related to current diagnosis. Patient would benefit from intensive therapies, 3 hours of therapy a day to maximize potentialto return to baseline level of function. 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 Confluent petechial hemorrhage. No space-occupying hematoma. Localized mass effect. -3: extubated Rehabilitation Precautions: Aspiration Precautions, Dysphagia, Cognitive Linguistics Deficits, Communication Deficits, Visual Deficits Reason for Speech Therapy Consult: swallowing and speech/cognitive evaluation Relevant Past Medical History: HTN, HPL, CAD, JAIRO Response to Therapy Interventions: Aspiration Risk, Aphasia, Cognitive Deficits, Confusion interferes with education, Multiple medical concerns, Visual Field Deficit Subjective: Patient with overal improvement today, increased alertness and increased improvement in understanding dysarthric speech. Family present. Current Status Oral Hygiene: Clear, dry oral cavity Dentition: Edentulous Current Feeding Method: Small Bore Feeding Tube Current Diet Textures: NPO with alternative means of nutrition/hydration/me dication Current Level Of Communication: Verbal, Aphasia, Dysarthria Current Management Of Secretions: Requires suctioning Frequency Of Suctioning: PRN Oral Motor Exam: Within Functional Limits Except Facial Symmetry Impaired: Left Labial Assessment: Poor labial seal Labial ROM Impaired: Left Labial Strength Impaired: Left Lingual Assessment: Generalized weakness Lingual ROM Impaired: Bilateral, Protrusion Lingual Protrusion Deviation: Left Lingual Strength Impaired: Left, Right, Bilateral Palatal Elevation: Within Functional Limits Swallow Position Of Patient During Assessment: Upright In Bed Consistencies Presented: Mildly Thick Liquids IDDSI Level 2 (Maurice Thick), Pureed IDDSI Level 4 Compensatory Strategies Utilized During Assessment: 1:1 Supervision, Alert (patient should be fully alert for P.O. intake), Feed / Eat at a slow rate, Sit upright 90 degrees for all PO, Small Bite/Sip, No straws Assessed swallowing at the bedside Speech Therapy completed oral care Trialed mildly thick (nectar thick) liquids via cup: 4/5 trials no cough; +cough on final trial Cough is dry and nonproductive; patient turns red when coughs Trialed puree: no signs or symptoms of aspiration Recommend continue NPO status + repeat Modified Barium Swallow Study Speech Therapy to follow and complete Patient /Caregiver Goals: Eat/Drink Without Restrictions Goals for Plan of Care: SWALLOWING: Patient / Caregiver will demonstrate knowledge of taught compensatory strategies and dietary consistency recommendations to optimize functional swallow function without overt clinical signs and symptoms of aspiration or dysphagia Swallow Goals: Patient will participate in a Modified Barium Swallow Study (MBS) to thoroughly evaluate the oral and pharyngeal phase of the swallow, which cannot be substantiated through a clinical swallowing evaluation only. Through further diagnostic testing a definitive diagnosis/identificati on of the patient's current swallowing function and recommended treatment plan can be established. - goal met and new goal established 04/21/2024; asked for repeat 04/26/2024 Patient will participate in therapeutic po trials with Speech Therapy only to improve swallow function and reduce atrophy from decreased use. - see above (more content not included)... [facility] Basic metabolic 2000 panelon 04-25-2024 Anion gap [Moles/Vol] 12 mmol/L Normal 8-15 [facility] Comment on above: Order Comment: Speci men Type: BLOOD SPECIMENOrdering Facility: [facility] Address: [address] [place] [address] Performed By: #### 2 4321-2 ####[facility] LABORATORYCLIA [id number] [place] [address] [place] Calcium [Mass/Vol] 10.6 mg/dL High 8.5-10.2 [facility] Comment on above: Order Comment: Speci men Type: BLOOD SPECIMENOrdering Facility: [facility] Address: [address] [place] [address] Performed By: #### 2 4321-2 ####[facility] LABORATORYCLIA [id number] [place] [address] [place] Chloride [Moles/Vol] 98 mmol/L Normal 98-107 [facility] Comment on above: Order Comment: Speci men Type: BLOOD SPECIMENOrdering Facility: [facility] Address: [address] [place] [address] Performed By: #### 2 4321-2 ####[facility] LABORATORYCLIA [id number] [place] [id number] [place] CO2 [Moles/Vol] 27 mmol/L Normal 22-30 [facility] Comment on above: Order Comment: Speci men Type: BLOOD SPECIMENOrdering Facility: [facility] Address: [address] [place] [address] Performed By: #### 2 4321-2 ####[facility] LABORATORYCLIA [id number] [address] [place] Creatinine [Mass/Vol] 1.05 mg/dL Normal 0.73-1.22 [facility] Comment on above: Order Comment: Speci men Type: BLOOD SPECIMENOrdering Facility: [facility] Address: [address] [place] [address] Performed By: #### 2 4321-2 ####[facility] LABORATORYCLIA [id number] [address] Creatinine and Glomerular filtration rate.predicted panel (S/P/Bld) 74 mL/min/1.73m??? Normal >=60 [facility] Comment on above: Order Comment: Speci men Type: BLOOD SPECIMENOrdering Facility: [facility] Address: [address] [place] [address] Result Comment: Bianca mated Glomerular Filtration Rate (eGFR) is calculated using the 2020 CKD-EPI creatinine equation. This equation utilizes serum creatinine, sex, and age as parameters. The creatinine assay has traceable calibration to isotope dilution-mass spectrometry. Refer to KDIGO guidelines for clinical interpretation. In patients with unstable renal function, e.g. those with acute kidney injury, the eGFR may not accurately reflect actual GFR. Performed By: #### 2 4321-2 ####[facility] LABORATORYCLIA [id number] [address] [place] Glucose [Mass/Vol] 104 mg/dL High 74-99 [facility] Comment on above: Order Comment: Speci men Type: BLOOD SPECIMENOrdering Facility: [facility] Address: [address] [place] [address] Result Comment: The [place] Diabetes Association (ADA) provides guidance for cutoff values for fasting glucose and random glucose. The ADA defines fasting as no caloric intake for at least 8 hours. Fasting plasma glucose results between 100 to 125 mg/dL indicate increased risk for diabetes (prediabetes). Fasting plasma glucose results greater than or equal to 126 mg/dL meet the criteria for diagnosis of diabetes. In the absence of unequivocal hyperglycemia, results should be confirmed by repeat testing. In a patient with classic symptoms of hyperglycemia or hyperglycemic crisis, random plasma glucose results greater than or equal to 200 mg/dL meet the criteria for diagnosis of diabetes. Reference: Standards of Medical Care in Diabetes 2016, [place] [employer] Association. Diabetes Care. 2016.39(Suppl 1). Performed By: #### 2 4321-2 ####[facility]ORATORYCLIA [id number] [place] [address] [place] Potassium [Moles/Vol] 4.5 mmol/L Normal 3.7-5.1 [facility] Comment on above: Order Comment: Speci men Type: BLOOD SPECIMENOrdering Facility: [facility] Address: [address] [place] [address] Performed By: #### 2 4321-2 ####[facility] LABORATORYCLIA [id number] [place] [address] [place] Sodium [Moles/Vol] 137 mmol/L Normal 136-144 [facility] Comment on above: Order Comment: Speci men Type: BLOOD SPECIMENOrdering Facility: [facility] Address: [address] [place] [address] Performed By: #### 2 4321-2 ####[facility] LABORATORYCLIA [id number] [place] [address] [place] Urea nitrogen [Mass/Vol] 37 mg/dL High 9-24 [facility] Comment on above: Order Comment: Speci men Type: BLOOD SPECIMENOrdering Facility: [facility] Address: [address] [place] [address] Performed By: #### 2 4321-2 ####[facility] LABORATORYCLIA [id number] [place], [place] [id number] [place] [address] [facility] XR CHEST 1V FRONTALon 2023 XR CHEST 1V FRONTAL * * *Final Report* * * DATE OF EXAM: Apr 25 2024 12:36PM [id number] [id number] - XR CHEST 1V FRONTAL / PROCEDURE REASON: Cough * * * * Physician Interpretation * * * * EXAMINATION: CHEST RADIOGRAPH (SINGLE VIEW AP OR PA) CLINICAL HISTORY: Cough MQ: XC1_5 Comparison: 04/16/2024 RESULT: Lines, tubes, and devices: A feeding tube extends into the stomach as seen on abdominal film from 3 days ago. Lungs and pleura: Elevated right hemidiaphragm. The lungs are clear. No pleural effusion. Cardiomediastinal silhouette: Normal cardiac size. Status post median sternotomy. Other: None IMPRESSION: No acute radiographic abnormality. Inspector Tester Sorter: PSCB Transcribe Date/Time: Apr 25 2024 12:42P Dictated by : VINCE HARRIS MD This examination was interpreted and the report reviewed and electronically signed by: VINCE HARRIS MD on Apr 25 2024 12:43PM EST [id number] [facility] Basic metabolic 2000 panelon 04-24-2024 Anion gap [Moles/Vol] 11 mmol/L Normal 8-15 [facility] Comment on above: Order Comment: Speci men Type: BLOOD SPECIMENOrdering Facility: [facility] Address: [address] [place] [address] Performed By: #### 2 4321-2 ####[facility] LABORATORYCLIA [id number] [place] [address] [facility] Calcium [Mass/Vol] 9.8 mg/dL Normal 8.5-10.2 [facility] Comment on above: Order Comment: Speci men Type: BLOOD SPECIMENOrdering Facility: [facility] Address: [address] [place] [address] Performed By: #### 2 4321-2 ####[facility]ORATORYCLIA [id number] [address] Chloride [Moles/Vol] 102 mmol/L Normal 98-107 [facility] Comment on above: Order Comment: Speci men Type: BLOOD SPECIMENOrdering Facility: [facility] Address: [address] [place] [address] Performed By: #### 2 4321-2 ####[facility]ORATORYCLIA [id number] [address] CO2 [Moles/Vol] 23 mmol/L Normal 22-30 [facility] Comment on above: Order Comment: Speci men Type: BLOOD SPECIMENOrdering Facility: [facility] Address: [address] [place] [address] Performed By: #### 2 4321-2 ####[facility] [id number] [address] Creatinine [Mass/Vol] 0.98 mg/dL Normal 0.73-1.22 [facility] Comment on above: Order Comment: Speci men Type: BLOOD SPECIMENOrdering Facility: [facility] Address: [address] [place] [address] Performed By: #### 2 4321-2 ####[facility]ORATORYCLIA [id number] [address] Creatinine and Glomerular filtration rate.predicted panel (S/P/Bld) 81 mL/min/1.73m??? Normal >=60 [facility] Comment on above: Order Comment: Speci men Type: BLOOD SPECIMENOrdering Facility: [facility] Address: [address] [place] [address] Result Comment: Bianca mated Glomerular Filtration Rate (eGFR) is calculated using the 2020 CKD-EPI creatinine equation. This equation utilizes serum creatinine, sex, and age as parameters. The creatinine assay has traceable calibration to isotope dilution-mass spectrometry. Refer to KDIGO guidelines for clinical interpretation. In patients with unstable renal function, e.g. those with acute kidney injury, the eGFR may not accurately reflect actual GFR. Performed By: #### 2 4321-2 ####[facility]ATORYCLIA [id number] [place] [address] [place] Glucose [Mass/Vol] 134 mg/dL High 74-99 [facility] Comment on above: Order Comment: Speci men Type: BLOOD SPECIMENOrdering Facility: [facility] Address: [address] [place] [address] Result Comment: The [place] Diabetes Association (ADA) provides guidance for cutoff values for fasting glucose and random glucose. The ADA defines fasting as no caloric intake for at least 8 hours. Fasting plasma glucose results between 100 to 125 mg/dL indicate increased risk for diabetes (prediabetes). Fasting plasma glucose results greater than or equal to 126 mg/dL meet the criteria for diagnosis of diabetes. In the absence of unequivocal hyperglycemia, results should be confirmed by repeat testing. In a patient with classic symptoms of hyperglycemia or hyperglycemic crisis, random plasma glucose results greater than or equal to 200 mg/dL meet the criteria for diagnosis of diabetes. Reference: Standards of Medical Care in Diabetes 2016, [place] [employer]. Diabetes Care. 2016.39(Suppl 1). Performed By: #### 2 4321-2 ####[facility]ORATORYCLIA [id number] [place] [address] [place] Potassium [Moles/Vol] 4.4 mmol/L Normal 3.7-5.1 [facility] Comment on above: Order Comment: Lyndsey rafita Type: BLOOD SPECIMENOrdering Facility: [facility] Address: [address] [place] [address] Performed By: #### 2 4321-2 ####[facility]ATORYCLIA [id number] [place] [address] [place] Sodium [Moles/Vol] 136 mmol/L Normal 136-144 [facility] Comment on above: Order Comment: Speci men Type: BLOOD SPECIMENOrdering Facility: [facility] Address: [address] [place] [address] Performed By: #### 2 4321-2 ####[facility]ORATORYCLIA [id number] [place] [address] [place] Urea nitrogen [Mass/Vol] 38 mg/dL High 9-24 [facility] Comment on above: Order Comment: Speci men Type: BLOOD SPECIMENOrdering Facility: [facility] Address: [facility] [place] [address] Performed By: #### 2 4321-2 ####[facility]ORATORYCLIA [id number] [place] [address] [place] CASE MANAGEMon 04-24-2024 CASE MANAGEM HNO ID: [id number] Author: GHASSAN MENDIETA RN Service: ? Author Type: Registered Nurse Type: Care Mgt Progress Note Filed: 04/24/2024 14:59 Note Text: CARE MANAGEMENT PROGRESS NOTE SERVICE DATE: 04/24/2024 SERVICE TIME: 2:57 PM LOS: 8 days Chart reviewed. Plan is for acute rehab pending clinical course. [facility] for clinical and behavioral improvement. Patient currently with restraints and Corpak TF. [facility] is not able to accept due to patient's insurance is out of network. CM sent referral to [facility] to see if patient may be appropriate for LTACH LOC pending response. CM has not discussed this with family yet until response is received. Daughter Lindsay will need updated. CM to follow for transitional care planning. SIGNATURE: Ghassan Mendieta RN PATIENT NAME: Jonathon Perales DATE: April 24, 2024 TIME: 2:57 PM PAGER/CONTACT #: [phone] [facility] THERAPY NTon 04-24-2024 THERAPY NT HNO ID: [id number] Author: JL PERAZA CCC-CAT OPERATOR Service: Speech/Swallow Author Type: Speech Language Pathologist Type: Therapy (PT/OT/Speech/Resp) Filed: 04/24/2024 11:37 Note Text: Speech Therapy Treatment SERVICE DATE: 04/24/2024 SERVICE TIME: 0948 to 1018 ROOM: [place] [address] IMPRESSION: Communication deficits identified: Expressive aphasia, Receptive aphasia, Dysarthria of speech, Cognitive deficits Swallow Deficits Identified / Suspected: Oropharyngeal dysphagia - currently has cortrack. Dysphagia is improving but still not ready for PO at this point. Diet Recommendations: NPO with alternative means of nutrition Swallowing Precautions Recommendations: Rigid Oral Hygiene Nursing Recommendations: See swallow guide posted in patients room, Use suction toothbrush with patient, Reinforce use of taught communication strategies Recommended Discharge Disposition: Acute Rehab Justification for Recommended Discharge Disposition: Patient requires an intensive inpatient rehabilitation therapy program due to:, requires active, intensive and ongoing intervention of multiple therapy disciplines, complexity requiring a multi-disciplinary team approach, aspiration risk requiring ongoing medical management, dysphagia requiring frequent assessment and diet modification, expressive language/communication deficits, receptive language/communication deficits, motor speech impairment (dysarthria/apraxia), new/worsened cognitive deficits related to current diagnosis. Patient would benefit from intensive therapies, 3 hours of therapy a day to maximize potentialto return to baseline level of function. 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 Confluent petechial hemorrhage. No space-occupying hematoma. Localized mass effect. -3: extubated Rehabilitation Precautions: Aspiration Precautions, Dysphagia, Cognitive Linguistics Deficits, Communication Deficits, Visual Deficits Reason for Speech Therapy Consult: swallowing and speech/cognitive evaluation Relevant Past Medical History: HTN, HPL, CAD, JAIRO Response to Therapy Interventions: Aspiration Risk, Aphasia, Cognitive Deficits, Confusion interferes with education, Multiple medical concerns, Visual Field Deficit Subjective: Patient a little more sleepy than yesterday. +language of confusion. RN reported he had been up since 3am. Speech is dysarthric. Current Status Oral Hygiene: Clear, dry oral cavity Dentition: Edentulous Current Feeding Method: Small Bore Feeding Tube Current Diet Textures: NPO with alternative means of nutrition/hydration/me dication Current Level Of Communication: Verbal, Aphasia, Dysarthria Current Management Of Secretions: Requires suctioning Frequency Of Suctioning: PRN Oral Motor Exam: Within Functional Limits Except Facial Symmetry Impaired: Left Labial Assessment: Poor labial seal Labial ROM Impaired: Left Labial Strength Impaired: Left Lingual Assessment: Generalized weakness Lingual ROM Impaired: Bilateral, Protrusion Lingual Protrusion Deviation: Left Lingual Strength Impaired: Left, Right, Bilateral Palatal Elevation: Within Functional Limits Cognition Visual Attention Deficit: Left Neglect Speech/Voice/Language Dysarthria: Blended Word Boundaries, Decreased Intelligibility, Imprecise Articulation Personal Yes/No Questions - (%): 50 Simple Yes/No Questions - (%): 50 Automatic Speech - (%): 50 Confrontational Naming - (%): 50 Responsive Naming - (%): 50 Speech remains dysarthric Improvement in intelligibility when Speech Therapy would hold upper left lip Completed labial ROM x10 Completed labial strength x10 Completed overarticulation tasks with 2/10 accuracy and 8/8 with maximum verbal/tactile cueing Completed complete the sentence task with 6/10 accuracy +Left neglect +language of confusion today Speech Therapy to follow to improve communication Swallow Position Of Patient During Assessment: Upright In Bed Consistencies Presented: Mildly Thick Liquids IDDSI Level 2 (Maurice Thick), Pureed IDDSI Level 4 Compensatory Strategies Utilized During Assessment: 1:1 Supervision, Alert (patient should be fully alert for P.O. intake), Feed / Eat at a slow rate, Sit upright 90 degrees for all PO, Small Bite/Sip, No straws Reassessed swallowing at the bedside Unable to self feed Speech Therapy completed oral care Trialed mildly thick (nectar thick) liquids via spoon and cup: +delayed cough after swallow today Trialed puree: no signs or symptoms of aspiration Completed lingual resistance x5 Completed effortful swallow x3 Patient still with signs or symptoms of aspiration Recommend continue NPO status Speech Therapy to follow for dysphagia management Patient /Caregiver Goals: Eat/Drink Without Restrictions Goals for Plan of Care: SWALLOWING: Patient / Caregiver will demonstrate k (more content not included)... [facility] Basic metabolic 2000 panelon 04-23-2024 Anion gap [Moles/Vol] 11 mmol/L Normal 8-15 [facility] Comment on above: Order Comment: Speci men Type: BLOOD SPECIMENOrdering Facility: [facility] Address: [address] [place] [address] Performed By: #### 2 4321-2 ####[facility] LABORATORYCLIA [id number] [place] [address] [place] Calcium [Mass/Vol] 10.1 mg/dL Normal 8.5-10.2 [facility] Comment on above: Order Comment: Speci men Type: BLOOD SPECIMENOrdering Facility: [facility] Address: [address] [place] [address] Performed By: #### 2 4321-2 ####[facility] LABORATORYCLIA [id number] [place] [address] [place] Chloride [Moles/Vol] 99 mmol/L Normal 98-107 [facility] Comment on above: Order Comment: Speci men Type: BLOOD SPECIMENOrdering Facility: [facility] Address: [address] [place] [address] Performed By: #### 2 4321-2 ####[facility]ORATORYCLIA [id number] [address] CO2 [Moles/Vol] 25 mmol/L Normal 22-30 [facility] Comment on above: Order Comment: Speci men Type: BLOOD SPECIMENOrdering Facility: [facility] Address: [address] [place] [address] Performed By: #### 2 4321-2 ####[facility] [id number] [address] Creatinine [Mass/Vol] 1.03 mg/dL Normal 0.73-1.22 [facility] Comment on above: Order Comment: Speci men Type: BLOOD SPECIMENOrdering Facility: [facility] Address: [address] [place] [address] Performed By: #### 2 4321-2 ####[facility]ORATORYCLIA [id number] [address] Creatinine and Glomerular filtration rate.predicted panel (S/P/Bld) 76 mL/min/1.73m??? Normal >=60 [facility] Comment on above: Order Comment: Speci men Type: BLOOD SPECIMENOrdering Facility: [facility] Address: [address] [place] [address] Result Comment: Bianca mated Glomerular Filtration Rate (eGFR) is calculated using the 2020 CKD-EPI creatinine equation. This equation utilizes serum creatinine, sex, and age as parameters. The creatinine assay has traceable calibration to isotope dilution-mass spectrometry. Refer to KDIGO guidelines for clinical interpretation. In patients with unstable renal function, e.g. those with acute kidney injury, the eGFR may not accurately reflect actual GFR. Performed By: #### 2 4321-2 ####[facility] LABORATORYCLIA [id number] [place] [address] [place] Glucose [Mass/Vol] 122 mg/dL High 74-99 [facility] Comment on above: Order Comment: Speci men Type: BLOOD SPECIMENOrdering Facility: [facility] Address: [address] [place] [address] Result Comment: The [place] Diabetes Association (ADA) provides guidance for cutoff values for fasting glucose and random glucose. The ADA defines fasting as no caloric intake for at least 8 hours. Fasting plasma glucose results between 100 to 125 mg/dL indicate increased risk for diabetes (prediabetes). Fasting plasma glucose results greater than or equal to 126 mg/dL meet the criteria for diagnosis of diabetes. In the absence of unequivocal hyperglycemia, results should be confirmed by repeat testing. In a patient with classic symptoms of hyperglycemia or hyperglycemic crisis, random plasma glucose results greater than or equal to 200 mg/dL meet the criteria for diagnosis of diabetes. Reference: Standards of Medical Care in Diabetes 2016, [place] [employer]. Diabetes Care. 2016.39(Suppl 1). Performed By: #### 2 4321-2 ####[facility]ATORYCLIA [id number] [place] [address] [place] Potassium [Moles/Vol] 4.4 mmol/L Normal 3.7-5.1 [facility] Comment on above: Order Comment: Lyndsey eller Type: BLOOD SPECIMENOrdering Facility: [facility] Address: [address] [place] [address] Performed By: #### 2 4321-2 ####[facility]ATORYCLIA [id number] [place] [address] [place] Sodium [Moles/Vol] 135 mmol/L Low 136-144 [facility] Comment on above: Order Comment: Speci men Type: BLOOD SPECIMENOrdering Facility: [facility] Address: [address] [place] [address] Performed By: #### 2 4321-2 ####[facility]ORYCLIA [id number] [place] [address] [place] Urea nitrogen [Mass/Vol] 39 mg/dL High 9-24 [facility] Comment on above: Order Comment: Speci men Type: BLOOD SPECIMENOrdering Facility: [facility] Address: [address] [place] [address] Performed By: #### 2 4321-2 ####[facility]ORATORYCLIA [id number] [place] [address] [facility] CASE MANAGEMon 04-23-2024 CASE MANAGEM HNO ID: [id number] Author: LIMA SUMNER LISW Service: Social Work Author Type: Cable Television Technician Type: Care Mgt Progress Note Filed: 04/23/2024 16:08 Note Text: CARE MANAGEMENT PROGRESS NOTE SERVICE DATE: 04/23/2024 SERVICE TIME: 4:06 PM LOS: 7 days Stroke recovery Chart reviewed. Patient with restraints still and cortrak TF. Not appropriate for depression screening at this time. SIGNATURE: SHILPI Basilio PATIENT NAME: Jonathon Perales DATE: April 23, 2024 TIME: 4:06 PM PAGER/CONTACT #: [phone] [facility] CASE MANAGEM HNO ID: [id number] Author: GHASSAN MENDIETA RN Service: ? Author Type: Registered Nurse Type: Care Mgt Progress Note Filed: 04/23/2024 11:45 Note Text: CARE MANAGEMENT PROGRESS NOTE SERVICE DATE: 04/23/2024 SERVICE TIME: 11:44 AM LOS: 7 days Chart reviewed. Plan is for acute rehab pending clinical course. [facility] for clinical and behavioral improvement. Patient currently with restraints and Corpak TF. [facility] is not able to accept due to patient's insurance is out of network. Daughter Lidnsay will need updated. to follow for transitional care planning. SIGNATURE: Ghassan Mendieta RN PATIENT NAME: Jonathon Perales DATE: April 23, 2024 TIME: 11:44 AM PAGER/CONTACT #: [phone] [facility] CBC panel Auto (Bld)on 04-23 Erythrocyte distribution width (RBC) [Ratio] 11.7 % Normal 11.5-15.0 [facility] Comment on above: Order Comment: Speci men Type: BLOOD SPECIMENOrdering Facility: [facility] Address: [address] [place] [address] Performed By: #### 5 8410-2 ####[facility]. [facility] LABORATORYCLIA [id number] [address] OF [facility] Hematocrit (Bld) [Volume fraction] 38.7 % Low 39.0-51.0 [facility] Comment on above: Order Comment: Speci men Type: BLOOD SPECIMENOrdering Facility: [facility] Address: [address] [place] [address] Performed By: #### 5 8410-2 ####[facility] LABORATORYCLIA [id number] [address] OF [facility] Hemoglobin (Bld) [Mass/Vol] 13.3 g/dL Normal 13.0-17.0 [facility] Comment on above: Order Comment: Speci men Type: BLOOD SPECIMENOrdering Facility: [facility] Address: [address] [place] [address] Performed By: #### 5 8410-2 ####[facility]ORATORYCLIA [id number] [address] STATES OF [facility] MCH (RBC) [Entitic mass] 34.8 pg High 26.0-34.0 [facility] Comment on above: Order Comment: Speci men Type: BLOOD SPECIMENOrdering Facility: [facility] Address: [address] [place] [address] Performed By: #### 5 8410-2 ####[facility] LABORATORYCLIA [id number] [address] [place] MCHC (RBC) [Mass/Vol] 34.4 g/dL Normal 30.5-36.0 [facility] Comment on above: Order Comment: Speci men Type: BLOOD SPECIMENOrdering Facility: [facility] Address: [address] [place] [address] Performed By: #### 5 8410-2 ####[facility] LABORATORYCLIA [id number] [address] [place] MCV (RBC) [Entitic vol] 101.3 fL High 80.0-100.0 [facility] Comment on above: Order Comment: Speci men Type: BLOOD SPECIMENOrdering Facility: [facility] Address: [address] [place] [address] Performed By: #### 5 8410-2 ####[facility]ATORYCLIA [id number] [address] OF [place] Nucleated RBC (Bld) [#/Vol] 10*3/uL Normal <0.01 [facility] Comment on above: Order Comment: Speci men Type: BLOOD SPECIMENOrdering Facility: [facility] Address: [address] [place] [address] Performed By: #### 5 8410-2 ####[facility]ATORYCLIA [id number] [address] [place] Platelet mean volume (Bld) [Entitic vol] 10.1 fL Normal 9.0-12.7 [facility] Comment on above: Order Comment: Speci men Type: BLOOD SPECIMENOrdering Facility: [facility] Address: [address] [place] [address] Performed By: #### 5 8410-2 ####[facility]ATORYCLIA [id number] [address] [place] Platelets (Bld) [#/Vol] 444 10*3/uL High 150-400 [facility] Comment on above: Order Comment: Speci men Type: BLOOD SPECIMENOrdering Facility: [facility] Address: [address] [place] [address] Performed By: #### 5 8410-2 ####[facility]ATORYCLIA [id number] [address] [place] RBC (Bld) [#/Vol] 3.82 10*6/uL Low 4.20-6.00 [facility] Comment on above: Order Comment: Speci men Type: BLOOD SPECIMENOrdering Facility: [facility] Address: [address] [place] [address] Performed By: #### 5 8410-2 ####[facility]ORATORYCLIA [id number] [place] [address] [place] WBC (Bld) [#/Vol] 10.73 10*3/uL Normal 3.70-11.00 [facility] Comment on above: Order Comment: Speci men Type: BLOOD SPECIMENOrdering Facility: [facility] Address: [address] [place] [address] Performed By: #### 5 8410-2 ####[facility] LABORATORYCLIA [id number] [place] [address] [facility] NURSING PROGon 04-23-2024 NURSING PROG HNO ID: [id number] Author: CHIOMA ANTHONY RN Service: Nursing Author Type: Registered Nurse Type: Nursing Progress Note Filed: 04/23/2024 16:18 Note Text: Nursing Progress: Topic: RESTRAINT NON-VIOLENT PATIENT NAME: Jonathon Perales Patient Location: [place] [address] Room: [place] [address] The patient demonstrates Attempting to Remove Medical Devices Vital to Medical Stability, Confusion, Lack of Understanding/Ability to Comply with Safety Directions, Impulsive Behavior, Inability to be Redirected, Inability to Retain Information Regarding Safety Directions as evidenced by the following behaviors attempting to remove corpak, IV's, and telemetry which pose an imminent danger to self or others. The following interventions were attempted but were not effective in protecting the patient's safety: Alarms, Ambulation/Progressive Activity, Family/Significant Other Involvement, Bed in Low/Locked Position, Call Light Within Reach, Gauze Wrap/Sleeve IV Site, IV/Feeding Bag/Pump Out of Vision, Modify Environment, Medications Reviewed, Frequent Observation Next, a comprehensive assessment was performed and warranted placing the patient in Soft Bilateral Wrists, the least restrictive restraint needed to protect the patient's safety. Ongoing safety assessments and evaluation for earliest removal of restraints will be performed. DATE: April 23, 2024 TIME: 4:17 PM Chioma Anthony RN [facility] NUTRITIONon 04-23-2024 NUTRITION HNO ID: [id number] Author: RAIZA HARRISON RD Service: Nutrition Therapy Author Type: Registered Dietitian Type: Nutrition Filed: 04/23/2024 14:14 Note Text: NUTRITION THERAPY PROGRESS NOTE SERVICE DATE: 04/23/2024 SERVICE TIME: 1210 Nutrition Assessment: Recommended Malnutrition Diagnosis: Unable to Identify Malnutrition at this time (04/16/24 1240 : Don Dickson, CHEAL) Care Plan: No change in EN prescription Enteral Nutrition Tube Feeding Formula Type: Isosource 1.5 Goal Rate (mL/hr x hours): 50 ml/hr x 24 hours (1.2 L--1800 lashawn, 82 gm pro, 917 ml free water) Water Flush Volume (mL x frequency: 30 ml q4h Modular: ProSouce NoCarb Neutral (x1) Recommended Enteral Access: Oral;Gastric Monitor and Evaluation: Meet greater than 75% of estimated needs, Monitor tolerance to tube feeding, Monitor bowel function, Monitor fluid/electrolyte balance, Monitor labs, I/Os, vital signs, weight Interval History: Extubated, but failed swallow evaluation and MBSS. Corpak replaced after being pulled out. TF's infusing. Currently following simple commands. +BM. Intake History: Current Nutrition Intake: Greater than 75% estimated energy needs (with TF's running) Current Intake Over time: Greater than or equal to 5 days Dosing Weight: 68.5 kg (151 lb) Dosing Weight Type: Current weight Estimated kilocalorie needs: 8062-4948 Calorie Calculation Method: 25-30 kcals/kg Estimated protein needs (grams): 82-109 Grams protein determined by: 1.2 - 1.6 g/kg Diet Orders (From admission, onward) Start Ordered 04/22/24 1345 DIET TUBE FEED - CONTIN (NO TRAY) START NOW Question Answer Comment TF Product (26 years and up) ISOSOURCE 1.5 [place] Approved Secondary TF Product (Do Not Change) Jevity 1.5 TF Total mL per 24 hours 1200 Number of Liter Bags 1 TF Goal Rate (mL/hr) 50 TF Initial Rate (mL/hr) 10 TF Advance by (mL/hr) 10 TF Advance every (hrs) 4 TF Water Flush Amount (mL) 30 TF Water Flush Frequency Every 4 Hours TF Additive Product 1 (26 years and up) PROSOURCE NOCARB NEUTRAL TF Additive 1 Frequency (times/day) 1 04/22/24 1330 Anthropometrics: Height: 170.2 cm (5' 7") Weight: 68.6 kg (151 lb 3.8 oz) Body mass index is 23.69 kg/m?. MNT Billing: $ Reassessment: 1-15 minutes SIGNATURE: Raiza Harrsion RD PATIENT NAME: Jonathon Perales DATE: April 23, 2024 TIME: 10:06 AM [facility] THERAPY NTon 04-23-2024 THERAPY NT HNO ID: [id number] Author: JL PERAZA CCC-CAT OPERATOR Service: Speech/Swallow Author Type: Speech Language Pathologist Type: Therapy (PT/OT/Speech/Resp) Filed: 04/23/2024 16:18 Note Text: Speech Therapy Speech Evaluation Dysphagia Treatment SERVICE DATE: 04/23/2024 SERVICE TIME: 1500 to 1525 ROOM: [id number] IMPRESSION: Communication deficits identified: Expressive aphasia, Receptive aphasia, Dysarthria of speech, Cognitive deficits Swallow Deficits Identified / Suspected: Oropharyngeal dysphagia - currently has cortrack. Diet Recommendations: NPO with alternative means of nutrition Swallowing Precautions Recommendations: Rigid Oral Hygiene Nursing Recommendations: See swallow guide posted in patients room, Use suction toothbrush with patient, Reinforce use of taught communication strategies Recommended Discharge Disposition: Acute Rehab Justification for Recommended Discharge Disposition: Patient requires an intensive inpatient rehabilitation therapy program due to:, requires active, intensive and ongoing intervention of multiple therapy disciplines, complexity requiring a multi-disciplinary team approach, aspiration risk requiring ongoing medical management, dysphagia requiring frequent assessment and diet modification, expressive language/communication deficits, receptive language/communication deficits, motor speech impairment (dysarthria/apraxia), new/worsened cognitive deficits related to current diagnosis. Patient would benefit from intensive therapies, 3 hours of therapy a day to maximize potentialto return to baseline level of function. 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 Confluent petechial hemorrhage. No space-occupying hematoma. Localized mass effect. -3: extubated Rehabilitation Precautions: Aspiration Precautions, Dysphagia, Cognitive Linguistics Deficits, Communication Deficits, Visual Deficits Reason for Speech Therapy Consult: swallowing and speech/cognitive evaluation Relevant Past Medical History: HTN, HPL, CAD, JAIRO Response to Therapy Interventions: Aspiration Risk, Aphasia, Cognitive Deficits, Confusion interferes with education, Multiple medical concerns, Visual Field Deficit Subjective: Patient alert and to participate in therapy. PT sitting patient EOB throughout session. Current Status Oral Hygiene: Clear, dry oral cavity Dentition: Edentulous Current Feeding Method: Small Bore Feeding Tube Current Diet Textures: NPO with alternative means of nutrition/hydration/me dication Current Level Of Communication: Verbal, Aphasia, Dysarthria Current Management Of Secretions: Requires suctioning Frequency Of Suctioning: PRN Oral Motor Exam: Within Functional Limits Except Facial Symmetry Impaired: Left Labial Assessment: Poor labial seal Labial ROM Impaired: Left Labial Strength Impaired: Left Lingual Assessment: Generalized weakness Lingual ROM Impaired: Bilateral, Protrusion Lingual Protrusion Deviation: Left Lingual Strength Impaired: Left, Right, Bilateral Palatal Elevation: Within Functional Limits Cognition Cognitive Status: Within Functional Limits For Current Session Except Cognitive Deficits: Attention Deficit Attention Deficit: Visual Attention Deficit Visual Attention Deficit: Left Neglect Speech/Voice/Language Speech Production: Within Functional Limits Except Dysarthria: Blended Word Boundaries, Decreased Intelligibility, Imprecise Articulation Voice Assessment: No Expressive and Receptive Language: Within Functional Limits Except Auditory Comprehension Deficits: Simple Yes/No Questions, Personal Yes/No Questions Personal Yes/No Questions - (%): 50 Simple Yes/No Questions - (%): 50 Verbal Expression Deficits: Automatic Speech, Confrontational Naming, Responsive Naming Automatic Speech - (%): 50 Confrontational Naming - (%): 25 Responsive Naming - (%): 25 Reading Comprehension Deficits: (TBA) Written Expression Deficits: (TBA) Fluency: No - Patient in bed upon arrival, alert and able to participate in therapy - Assessed speech, language, and cognitive skills: - Reading/writing: TBA - Insight: Poor - Pragmatics: Fair - Patient presents with deficits in the following areas: speech, language, and cognition - ST to follow to improve cognitive-communicatio n Swallow Position Of Patient During Assessment: Unsupported Sitting Consistencies Presented: Thin Liquids IDDSI Level 0, Mildly Thick Liquids IDDSI Level 2 (Maurice Thick), Pureed IDDSI Level 4 Compensatory Strategies Utilized During Assessment: 1:1 Supervision, Alert (patient should be fully alert for P.O. intake), Feed / Eat at a slow rate, Sit upright 90 degrees for all PO, Small Bite/Sip, No straws Reassessed swallowing at the bedside Unable to self feed Trialed puree: prompt swallow Trialed mildly thick (nectar thick) liquids via spoon (more content not included)... [facility] THERAPY NT HNO ID: [id number] Author: ALBERTO LISA, PT Service: Physical Therapy Author Type: Physical Therapist Type: Therapy (PT/OT/Speech/Resp) Filed: 04/23/2024 15:53 Note Text: Physical Therapy Treatment Summary SERVICE DATE: 04/23/2024 SERVICE TIME: 1440 to 1503 ROOM: [place] [address] PT 6 Clicks Score: 13 DISCHARGE RECOMMENDATIONS Acute Rehab Recommended Discharge Disposition Comments: pt. functioning below baseline and is a great candidate for acute rehab; can tolerate 3hours of therapy daily, 5x/week Recommended Discharge Disposition Due to: Patient requires an active, intensive rehabilitation therapy program due to:, ADL impairment resulting in caregiver dependence, ataxia, high level balance deficits, less than 3/5 weakness noted in:, motor planning deficits, coordination deficits, new / worsened cognitive deficits related to current diagnosis, ongoing intervention of multiple therapy disciplines, decline in functional status requiring daily skilled care ASSESSMENT Response to Therapy Interventions: Good Participation in Activities, Low Activity Tolerance, Needs Frequent Redirection or Reinstruction, Multiple Ongoing Medical Issues Patient with good participation this date. Patient able to sit at edge of bed for prolonged period of time, stand multiple times with moderate assistance. Goals ongoing. Patient remains far below baseline. Continue to recommend acute rehab at discharge. Patient can tolerate 3 hours of combined therapies today. PRECAUTIONS Bed/Chair Alarm, Fall Risk, Lines/Tubes/Drains CURRENT HOSPITAL COURSE Pt visiting his hospitalized + stroke symptoms; L hemiplegia, aphasia, decreased sensation. + TNK. 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 Was intubated and extubated 04/20. Relevant Past Medical History: CKD, HTN, aortic valve replacement, CAD HOME LIVING Patient Lives With: Family, Other: See Comment Comments: Lives with dtr PRIOR FUNCTIONAL LEVEL Within Functional Limits, Required Assistance, Unable to Report Pt unable to report due to aphasia/dysarthria. Per chart pt lives with dtr in apt, completely independent, active, driving, prior to CVA. His lives in ECF. SUBJECTIVE Agreeable to PT THERAPY DIAGNOSIS Reduced mobility-other, Decreased activities of daily living (ADL), Muscle Weakness (generalized), Abnormalities of gait and mobility-other, Unsteadiness on feet, Paralytic gait, Ataxic gait TREATMENT INTERVENTIONS Therapeutic Activity (68973) Therapeutic Activity (27175) Treatment Minutes: 23 $ Therapeutic Activity (59582) Billed Units: 2 units See grid for functional mobility facilitated and education provided Timed Code Treatment (minutes): 23 Skilled Treatment Time (minutes): 23 TRAINING AND EDUCATION PROVIDED Bed Mobility, Benefits of In-Hospital Mobility, Role of Physical Therapy, Sitting Balance, Standing Balance, Transfers, Falls Prevention, Pre-gait Activities, Exercise Program THERAPEUTIC SKILLS USED Activity Dosing, Assessment of Tolerance Including Vitals Response to Activity, Cues for Sequencing/Proper Technique for Activity, Cuing Tactile, Cuing Verbal, Cuing Visual, Physical Assist, Movement Facilitation, Muscle Activation Facilitation FUNCTIONAL STATUS Bed Mobility Supine To Sit: Moderate Assistance, Additional Information Upon entering the room patient was laying sideways in the bed with bilateral legs over the bed rail. When asked if patient wanted to try to sit up he was excited to try. Patient did require frequent cues for sequencing and assist at trunk to sit. Patient sat up approximately 20 minutes while at the edge of bed with emphasis on midline posture, upright balance, deep breathing. Patient fluctuated with sitting balance requiring contact-guard to minimal assistance. Sit to Supine: Minimal Assistance Patient required assist at legs and to reposition in bed for comfort Transfers Sit To Stand: Moderate Assistance Patient stood x 3 trials this date with cues to power through legs. Patient was able to use the sink in his room with his right arm to balance and standing. Patient stood approximately 1 minute each trial with seated rest breaks between. Was able to use the mirror above the sink in his room to work on upright/midline posture. Stand To Sit: Moderate Assistance Patient with decreased eccentric control. Cues to reach back and lower slowly Bed to Chair Gait Moderate Assistance Patient with difficulty advancing left lower extremity limiting ambulation distance this date. Patient however is very motivated to attempt to ambulate but was only able to ambulate very short steps this date. Cues for sequence and safety throughout Gait Device: Hand Held Assist General Deviations/Observation s: Shuffling Gait (difficulty advancing LLE) Gait Distance (feet): small side steps along EOB Gait Deviations Left Lower Extremity: Weight bearing decreased, (more content not included)... [facility] ALLIED HEALTHon 04-22-2024 ALLIED HEALTH HNO ID: [id number] Author: ELLYN SANCHEZ RT(Jason) Service: Radiology Author Type: Technologist Type: Allied Health Filed: 04/22/2024 09:04 Note Text: Radiology Service Progress Note PATIENT NAME: Jonathon Perales DATE OF SERVICE: April 22, 2024 TIME: 9:04 AM PATIENT IDENTITY VERIFICATION COMPLETED USING TWO (2) IDENTIFIERS: Name and Date of confirmed by identification band. FALL SCREENING: Has the patient had 2 falls in the last year or 1 fall with injury or currently using an Ambulatory Assistive Device (Walker, Cane, Wheelchair, Crutches, etc.)? Inpatient: Screened on floor PATIENT GENDER DATA: Male PATIENT RELEVANT IMPLANT DATA REVIEWED: Not Applicable PATIENT PRESENTS WITH AN IMPLANTABLE OR ATTACHED INTERVIEWING CLERK: No RADIOLOGY DEPARTMENT: General X-ray: Exam(s) Completed: Abdomen X-Ray: Abdomen PERIPHERAL IV DATA: Not applicable SIGNED BY: RT Aimee(Jason) April 22, 2024 9:04 AM [facility] HNO ID: [id number] Author: ELLYN SANCHEZ RT(Jason) Service: Radiology Author Type: Technologist Type: Allied Health Filed: 04/22/2024 06:46 Note Text: Radiology Service Progress Note PATIENT NAME: Jonathon Perales DATE OF SERVICE: April 22, 2024 TIME: 6:45 AM PATIENT IDENTITY VERIFICATION COMPLETED USING TWO (2) IDENTIFIERS: Name and Date of confirmed by identification band. FALL SCREENING: Has the patient had 2 falls in the last year or 1 fall with injury or currently using an Ambulatory Assistive Device (Walker, Cane, Wheelchair, Crutches, etc.)? Inpatient: Screened on floor PATIENT GENDER DATA: Male PATIENT RELEVANT IMPLANT DATA REVIEWED: Not Applicable PATIENT PRESENTS WITH AN IMPLANTABLE OR ATTACHED INTERVIEWING CLERK: No RADIOLOGY DEPARTMENT: General X-ray: Exam(s) Completed: Abdomen X-Ray: Abdomen PERIPHERAL IV DATA: Not applicable SIGNED BY: RT Aimee(R) April 22, 2024 6:45 AM [facility] Basic metabolic 2000 panelon 04-22-2024 Anion gap [Moles/Vol] 13 mmol/L Normal 8-15 [facility] Comment on above: Order Comment: Speci men Type: BLOOD SPECIMENOrdering Facility: [facility] Address: [address] [place] [address] Performed By: #### 2 4321-2 ####[facility] LABORATORYCLIA [id number] [place] [address] [place] Calcium [Mass/Vol] 9.8 mg/dL Normal 8.5-10.2 [facility] Comment on above: Order Comment: Speci men Type: BLOOD SPECIMENOrdering Facility: [facility] Address: [address] [place] [address] Performed By: #### 2 4321-2 ####[facility]ORATORYCLIA [id number] [place] [address] [place] Chloride [Moles/Vol] 99 mmol/L Normal 98-107 [facility] Comment on above: Order Comment: Speci men Type: BLOOD SPECIMENOrdering Facility: [facility] Address: [address] [place] [address] Performed By: #### 2 4321-2 ####[facility]ATORYCLIA [id number] [place] [address] [place] CO2 [Moles/Vol] 23 mmol/L Normal 22-30 [facility] Comment on above: Order Comment: Speci men Type: BLOOD SPECIMENOrdering Facility: [facility] Address: [address] [place] [address] Performed By: #### 2 4321-2 ####[facility]ATORYCLIA [id number] [place] [address] [place] Creatinine [Mass/Vol] 1.03 mg/dL Normal 0.73-1.22 [facility] Comment on above: Order Comment: Speci men Type: BLOOD SPECIMENOrdering Facility: [facility] Address: [address] [place] [address] Performed By: #### 2 4321-2 ####[facility] LABORATORYCLIA [id number] [address] OF [place] Creatinine and Glomerular filtration rate.predicted panel (S/P/Bld) 76 mL/min/1.73m??? Normal >=60 [facility] Comment on above: Order Comment: Lyndsey eller Type: BLOOD SPECIMENOrdering Facility: [facility] Address: [address] [place] [address] Result Comment: Bianca mated Glomerular Filtration Rate (eGFR) is calculated using the 2020 CKD-EPI creatinine equation. This equation utilizes serum creatinine, sex, and age as parameters. The creatinine assay has traceable calibration to isotope dilution-mass spectrometry. Refer to KDIGO guidelines for clinical interpretation. In patients with unstable renal function, e.g. those with acute kidney injury, the eGFR may not accurately reflect actual GFR. Performed By: #### 2 4321-2 ####[facility] LABORATORYCLIA [id number] [place] [address] [place] Glucose [Mass/Vol] 92 mg/dL Normal 74-99 [facility] Comment on above: Order Comment: Lyndsey eller Type: BLOOD SPECIMENOrdering Facility: [facility] Address: [address] [place] [address] Result Comment: The [place] [employer] (ADA) provides guidance for cutoff values for fasting glucose and random glucose. The ADA defines fasting as no caloric intake for at least 8 hours. Fasting plasma glucose results between 100 to 125 mg/dL indicate increased risk for diabetes (prediabetes). Fasting plasma glucose results greater than or equal to 126 mg/dL meet the criteria for diagnosis of diabetes. In the absence of unequivocal hyperglycemia, results should be confirmed by repeat testing. In a patient with classic symptoms of hyperglycemia or hyperglycemic crisis, random plasma glucose results greater than or equal to 200 mg/dL meet the criteria for diagnosis of diabetes. Reference: Standards of Medical Care in Diabetes 2016, [place] [employer]. Diabetes Care. 2016.39(Suppl 1). Performed By: #### 2 4321-2 ####[facility]ATORYCLIA [id number] [place] [address] [place] Potassium [Moles/Vol] 4.3 mmol/L Normal 3.7-5.1 [facility] Comment on above: Order Comment: Lyndsey eller Type: BLOOD SPECIMENOrdering Facility: [facility] Address: [address] [place] [address] Performed By: #### 2 4321-2 ####[facility] LABORATORYCLIA [id number] [address] Sodium [Moles/Vol] 135 mmol/L Low 136-144 [facility] Comment on above: Order Comment: Speci men Type: BLOOD SPECIMENOrdering Facility: [facility] Address: [address] [place] [address] Performed By: #### 2 4321-2 ####[facility] LABORATORYCLIA [id number] [address] STATES [facility] Urea nitrogen [Mass/Vol] 35 mg/dL High 9-24 [facility] Comment on above: Order Comment: Speci men Type: BLOOD SPECIMENOrdering Facility: [facility] Address: [address] [place] [address] Performed By: #### 2 4321-2 ####[facility] LABORATORYCLIA [id number] [address] CBC panel Auto (Bld)on 04-22 Erythrocyte distribution width (RBC) [Ratio] 11.9 % Normal 11.5-15.0 [facility] Comment on above: Order Comment: Speci men Type: BLOOD SPECIMENOrdering Facility: [facility] Address: [address] [place] [address] Performed By: #### 5 8410-2 ####[facility] LABORATORYCLIA [id number] [address] Hematocrit (Bld) [Volume fraction] 37.5 % Low 39.0-51.0 [facility] Comment on above: Order Comment: Speci men Type: BLOOD SPECIMENOrdering Facility: [facility] Address: [address] [place] [address] Performed By: #### 5 8410-2 ####[facility] LABORATORYCLIA [id number] [address] Hemoglobin (Bld) [Mass/Vol] 12.8 g/dL Low 13.0-17.0 [facility] Comment on above: Order Comment: Speci men Type: BLOOD SPECIMENOrdering Facility: [facility] Address: [address] [place] [address] Performed By: #### 5 8410-2 ####[facility] LABORATORYCLIA [id number] [address] MCH (RBC) [Entitic mass] 34.8 pg High 26.0-34.0 [facility] Comment on above: Order Comment: Speci men Type: BLOOD SPECIMENOrdering Facility: [facility] Address: [address] [place] [address] Performed By: #### 5 8410-2 ####[facility] LABORATORYCLIA [id number] [address] MCHC (RBC) [Mass/Vol] 34.1 g/dL Normal 30.5-36.0 [facility] Comment on above: Order Comment: Speci men Type: BLOOD SPECIMENOrdering Facility: [facility] Address: [address] [place] [address] Performed By: #### 5 8410-2 ####[facility] LABORATORYCLIA [id number] [address] MCV (RBC) [Entitic vol] 101.9 fL High 80.0-100.0 [facility] Comment on above: Order Comment: Speci men Type: BLOOD SPECIMENOrdering Facility: [facility] Address: [address] [place] [address] Performed By: #### 5 8410-2 ####[facility]ORATORYCLIA [id number] [address] Nucleated RBC (Bld) [#/Vol] 10*3/uL Normal <0.01 [facility] Comment on above: Order Comment: Speci men Type: BLOOD SPECIMENOrdering Facility: [facility] Address: [address] [place] [address] Performed By: #### 5 8410-2 ####[facility] LABORATORYCLIA [id number] Platelet mean volume (Bld) [Entitic vol] 10.1 fL Normal 9.0-12.7 [facility] Comment on above: Order Comment: Speci men Type: BLOOD SPECIMENOrdering Facility: [facility] Address: [address] [place] [address] Performed By: #### 5 8410-2 ####[facility] LABORATORYCLIA [id number] [place] [address] [place] Platelets (Bld) [#/Vol] 380 10*3/uL Normal 150-400 [facility] Comment on above: Order Comment: Speci men Type: BLOOD SPECIMENOrdering Facility: [facility] Address: [address] [place] [address] Performed By: #### 5 8410-2 ####[facility]ATORYCLIA [id number] [address] [place] RBC (Bld) [#/Vol] 3.68 10*6/uL Low 4.20-6.00 [facility] Comment on above: Order Comment: Speci men Type: BLOOD SPECIMENOrdering Facility: [facility] Address: [address] [place] [address] Performed By: #### 5 8410-2 ####[facility] LAB[facility]ATORYCLIA [id number] [address] [place] WBC (Bld) [#/Vol] 9.80 10*3/uL Normal 3.70-11.00 [facility] Comment on above: Order Comment: Speci men Type: BLOOD SPECIMENOrdering Facility: [facility] Address: [address] [place] [address] Performed By: #### 5 8410-2 ####[facility] LABORATORYCLIA [id number] [address] CONSULT PROGon 04-22-2024 CONSULT PROG HNO ID: [id number] Author: MONIK CALDWELL APRN.DRY STARCH OPERATOR Service: Neurology ICU Author Type: Nurse Practitioner Type: Consult Progress Note Filed: 04/22/2024 15:12 Note Text: NEURO STROKE CONSULT PROGRESS NOTE SERVICE DATE: 04/22/2024 SERVICE TIME: 1413 Subjective INTERVAL HISTORY: Did not sleep much last night. Continues to try to get out of bed. Pulled cortrak out overnight and replaced this morning. No new issues overnight. MEDICATIONS Current Facility-Administered Medications Medication Dose Route Frequency labetalol 10-20 mg injection syringe (NORMODYNE) 10-20 mg INTRAVENOUS q 10 MIN PRN NaCl 0.9% iv flush bag 20 mL INTRAVENOUS PRN atorvastatin 80 mg tab(s) (LIPITOR) 80 mg ORAL/FEEDING TUBE AT BEDTIME acetaminophen 650 mg tab(s) (TYLENOL) 650 mg ORAL/FEEDING TUBE q 4 H PRN ondansetron (PF) 4 mg injection (ZOFRAN) 4 mg INTRAVENOUS q 6 H PRN potassium chloride ER 20-40 mEq tab(s) (KLOR-CON) 20-40 mEq ORAL/FEEDING TUBE PRN Or potassium chloride iv piggyback 20 mEq/100 mL 20 mEq INTRAVENOUS PRN magnesium sulfate iv piggyback in sterile water 2 g 50 mL 2 g INTRAVENOUS PRN phosphorus 500 mg tab(s) (K PHOS NEUTRAL) 500 mg ORAL/FEEDING TUBE PRN(NO DISPENSE) calcium gluconate iv piggyback 2 g in NaCl (iso-osmotic) 100 mL 2 g INTRAVENOUS PRN(NO DISPENSE) pantoprazole 40 mg oral liquid (PROTONIX) 40 mg ORAL/FEEDING TUBE DAILY (6 AM) clopidogrel 75 mg tab(s) (PLAVIX) 75 mg ORAL/FEEDING TUBE DAILY aspirin 81 mg chewable tab(s) 81 mg ORAL/FEEDING TUBE DAILY venlafaxine 75 mg tab(s) (EFFEXOR) 75 mg ORAL/FEEDING TUBE TID w MEALS heparin 5,000 Units injection 5,000 Units SUBCUTANEOUS q 8 H senna-docusate 8.6-50 mg 2 tablet (SENNA-S) 2 tablet ORAL/FEEDING TUBE BID melatonin 3 mg tab(s) 3 mg ORAL/FEEDING TUBE DAILY (8 PM) Objective PHYSICAL EXAM Vital Signs: BP 137/109 Pulse 67 Temp 36.4 ?C (97.5 ?F) (Temporal) Resp 26 Ht 170.2 cm (5' 7") Wt 68.6 kg (151 lb 3.8 oz) SpO2 94% BMI 23.69 kg/m? NEUROLOGICAL: LOC: 0 - alert and responsive 0 LOC Questions: 0 - both correct 0 LOC Commands: 0 - both correct 0 Best Gaze: 1 - partial gaze palsy, abnormal gaze in 1 or both eyes 1 Visual: 0 - no visual loss 0 Facial Palsy: 3 - complete paralysis (upper and lower face) 3 Motor Left Arm: 4 - no movement at all 4 Motor Right Arm: 0 - no drift 0 Motor Left Le - drift but does not hit bed 1 Motor Right Le - no drift 0 Limb Ataxia: 0 - no ataxia (or aphasic, hemiplegic) 0 Sensory: 0 - normal 0 Best Language: 1 - mild-mod aphasia (comprehensible) 1 Dysarthria: 1 - mild-mod slurred 1 Extinction and Inattention: 1 - neglects or extinguishes to double simultaneous stimulation in any modality 1 Daily NIHSS Score: 12 (04/22/24 1419 : Monik Caldwell APRN.DRY STARCH OPERATOR) 12 Alert oriented to self place month year Right gaze deviation cannot cross midline Left facial droop, mild dysarthria, expressive aphasia Follows commands, LUE 0/5 LLE 4/5 drift, RU/LE 5/5 sustains AG Sensation intact to light touch DATA: Diagnostic tests reviewed for today's visit: Lipids, HbA1c, Most recent labs and imaging results. MEDICAL EVENTS: No medical events have been recorded. STROKE 9 CARE AND PREVENTION CHECKLIST 1. Is the patient currently on an ANTITHROMBOTIC medication (Antiplatelet or Anticoagulant): Aspirin, Clopidogrel 2. Does the patient have known AFIB/FLUTTER: No 3. Is the patient on a STATIN: Atorvastatin 80 mg 4. Is the patient on VTE prophylaxis: Pharmacological prophylaxis Pharmacological intervention type: Heparin SQ 5. GLYCEMIC Control Medications: Not Diabetic 6. Stroke BP Goals: SBP 130-160 Stroke BP Control: BP well controlled 7. Stroke IVF/Nutrition: Other - see comment (needs seen by CAT OPERATOR, may need cortrak) 8. TEMPERATURE Control: Normothermic 9. Does the patient need THERAPY: Yes Therapy involvement: PT, OT, ST Stroke Care and Prevention (personally reviewed by Monik Caldwell APRN.DRY STARCH OPERATOR): Daily Rounding Date: 04/22/24 Daily Rounding Time: 1420 PROBLEM LIST: Principal Problem: Acute ischemic right MCA stroke (HCC) (POA: Yes) Active Problems: On mechanically assisted ventilation (HCC) (POA: No) Left hemiplegia (HCC) (POA: Yes) Facial droop due to acute cerebrovascular accident (CVA) (HCC) (HCC) (POA: Yes) Aphasia (POA: Yes) Primary hypertension (POA: Yes) Mixed hyperlipidemia (POA: Yes) History of aortic valve replacement (POA: Yes) JAIRO (obstructive sleep apnea) (POA: Yes) Acute respiratory failure (HCC) (POA: No) At risk for delirium (POA: Clinically Undetermined) Resolved Problems: * No resolved hospital problems. * Impression/Recommendat ions IMPRESSION 73 yo male with pmh CVA, CAD, aortic valve replacement, HTN, HLD, CKD, and JAIRO who presents with sudden onset aphasia and left sided weakness while in the hospital visiting his . iNIHSS 23. CT early ischemia in R insula. 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 (more content not included)... [facility] NURSING PROGon 04-22-2024 NURSING PROG HNO ID: [id number] Author: MARIELLE BERGER RN Service: ? Author Type: Registered Nurse Type: Nursing Progress Note Filed: 04/22/2024 19:16 Note Text: Transfer Note: PATIENT NAME: Jnoathon Perales Patient Location: [place] [address] [address]- Room: [place] [address] Patient transferred into room/unit [facility] in stable condition. Actions taken: Report given/called to Citlalli Johnson [facility] XR ABDOMEN 1V SUPINEon 04-22 XR ABDOMEN 1V SUPINE * * *Final Report* * * DATE OF EXAM: Apr 22 2024 9:08AM [id number] [id number] - XR ABDOMEN 1V SUPINE / PROCEDURE REASON: Evaluate tube, line or lead position * * * * Physician Interpretation * * * * PORTABLE SEMIERECT ABDOMEN: CLINICAL INDICATION: Assess enteric tube position. COMPARISON: Abdomen radiographs 04/22/2024, 04/21/2024, 04/19/2024 and 04/16/2024 and chest radiograph 04/16/2024. The radiograph includes the lower chest and upper abdomen. Interval advancement of the enteric tube terminating over the right abdomen. Opacified nondistended ascending colon. Mild elevated right hemidiaphragm. Median sternotomy cerclage wires. IMPRESSION: Interval advancement of the enteric tube terminating in the expected location of the distal stomach. A stat reading is made available at time of dictation as requested. Inspector Tester Sorter: MILTON Transcribe Date/Time: Apr 22 2024 10:21A Dictated by : JESSE RUIZ MD This examination was interpreted and the report reviewed and electronically signed by: JESSE RUIZ MD on Apr 22 2024 10:24AM EST [id number] [facility] XR ABDOMEN 1V SUPINE * * *Final Report* * * DATE OF EXAM: Apr 22 2024 6:46AM [id number] [id number] - XR ABDOMEN 1V SUPINE / PROCEDURE REASON: Evaluate tube, line or lead position * * * * Physician Interpretation * * * * ABDOMINAL RADIOGRAPH CLINICAL INDICATION: Corpak placement COMPARISON: 04/21/2024 FINDINGS: Supine frontal view of the abdomen. There has been repositioning of the enteric tube. The tip lies at the expected position of the esophagogastric junction. The tube should be advanced further into the stomach. There is residual contrast in the ascending colon. There are overlying cardiac monitoring leads. Sternotomy wires are present. No bowel dilation. IMPRESSION: Tip of the feeding tube lies at the expected position of the esophagogastric junction and should be advanced further into the stomach. Inspector Tester Sorter: MILTON Transcribe Date/Time: Apr 22 2024 7:47A Dictated by : CIARRA COFFEY MD This examination was interpreted and the report reviewed and electronically signed by: CIARRA COFFEY MD on Apr 22 2024 7:52AM EST [id number] [facility] Basic metabolic 2000 panelon 04-21-2024 Anion gap [Moles/Vol] 11 mmol/L Normal 9-18 [facility] Comment on above: Order Comment: Speci men Type: BLOOD SPECIMENOrdering Facility: [facility] Address: [address] [place] [address] Performed By: #### 2 4321-2, 2777-1, 05829-1 ####[facility] LABORATORYCLIA [id number] [place] [address] [place] Calcium [Mass/Vol] 9.4 mg/dL Normal 8.5-10.2 [facility] Comment on above: Order Comment: Speci men Type: BLOOD SPECIMENOrdering Facility: [facility] Address: [address] [place] [address] Performed By: #### 2 4321-2, 2776-11, ####[facility] LABORATORYCLIA [id number] [place] [address] [place] Chloride [Moles/Vol] 97 mmol/L Normal 97-105 [facility] Comment on above: Order Comment: Speci men Type: BLOOD SPECIMENOrdering Facility: [facility] Address: [address] [place] [address] Performed By: #### 2 4321-2, 2776-11, ####[facility] LABORATORYCLIA [id number] [place] [address] [place] CO2 [Moles/Vol] 26 mmol/L Normal 22-30 [facility] Comment on above: Order Comment: Speci men Type: BLOOD SPECIMENOrdering Facility: [facility] Address: [address] [place] [address] Performed By: #### 2 4321-2, 2776-11, ####[facility] LABORATORYCLIA [id number] [address] [place] Creatinine [Mass/Vol] 1.09 mg/dL Normal 0.73-1.22 [facility] Comment on above: Order Comment: Speci men Type: BLOOD SPECIMENOrdering Facility: [facility] Address: [address] [place] [address] Performed By: #### 2 4321-2, 2776-11, ####[facility] LABORATORYCLIA [id number] [address] Creatinine and Glomerular filtration rate.predicted panel (S/P/Bld) 71 mL/min/1.73m??? Normal >=60 [facility] Comment on above: Order Comment: Speci men Type: BLOOD SPECIMENOrdering Facility: [facility] Address: [address] [place] [id number] Result Comment: Bianca mated Glomerular Filtration Rate (eGFR) is calculated using the 2020 CKD-EPI creatinine equation. This equation utilizes serum creatinine, sex, and age as parameters. The creatinine assay has traceable calibration to isotope dilution-mass spectrometry. Refer to KDIGO guidelines for clinical interpretation. In patients with unstable renal function, e.g. those with acute kidney injury, the eGFR may not accurately reflect actual GFR. Performed By: #### 2 4321-2, 2777-, ####[facility] LABORATORYCLIA [id number] [place] [id number] [place] Glucose [Mass/Vol] 78 mg/dL Normal 74-99 [facility] Comment on above: Order Comment: Lyndsey eller Type: BLOOD SPECIMENOrdering Facility: [facility] Address: [address] [place] [address] Result Comment: The [place] [employer] (ADA) provides guidance for cutoff values for fasting glucose and random glucose. The ADA defines fasting as no caloric intake for at least 8 hours. Fasting plasma glucose results between 100 to 125 mg/dL indicate increased risk for diabetes (prediabetes). Fasting plasma glucose results greater than or equal to 126 mg/dL meet the criteria for diagnosis of diabetes. In the absence of unequivocal hyperglycemia, results should be confirmed by repeat testing. In a patient with classic symptoms of hyperglycemia or hyperglycemic crisis, random plasma glucose results greater than or equal to 200 mg/dL meet the criteria for diagnosis of diabetes. Reference: Standards of Medical Care in Diabetes 2016, [place] [employer] Association. Diabetes Care. 2016.39(Suppl 1). Performed By: #### 2 4321-2, 2777-, ####[facility] LABORATORYCLIA [id number] [place] [id number] [place] Potassium [Moles/Vol] 4.5 mmol/L Normal 3.7-5.1 [facility] Comment on above: Order Comment: [facility] Type: BLOOD SPECIMENOrdering Facility: [facility] Address: [address] [place] [id number] Performed By: #### 2 4321-2, 27705-18, ####[facility] LABORATORYCLIA [id number] [place] [id number] [place] [facility] Sodium [Moles/Vol] 134 mmol/L Low 136-144 [facility] Comment on above: Order Comment: Speci men Type: BLOOD SPECIMENOrdering Facility: [facility] Address: [address] [place] [address] Performed By: #### 2 4321-2, 27705-18, ####[facility]ORATORYCLIA [id number] [address] [place] Urea nitrogen [Mass/Vol] 31 mg/dL High 9-24 [facility] Comment on above: Order Comment: Speci men Type: BLOOD SPECIMENOrdering Facility: [facility] Address: [address] [place] [address] Performed By: #### 2 4321-2, 2776-11, ####[facility]ORATORYCLIA [id number] [address] [place] CBC panel Auto (Bld)on 04-21 Erythrocyte distribution width (RBC) [Ratio] 11.9 % Normal 11.5-15.0 [facility] Comment on above: Order Comment: Speci men Type: BLOOD SPECIMENOrdering Facility: [facility] Address: [address] [place] [address] Performed By: #### 5 8410-2 ####[facility] LABORATORYCLIA [id number] [address] [place] Hematocrit (Bld) [Volume fraction] 35.0 % Low 39.0-51.0 [facility] Comment on above: Order Comment: Speci men Type: BLOOD SPECIMENOrdering Facility: [facility] Address: [address] [place] [address] Performed By: #### 5 8410-2 ####[facility]ORATORYCLIA [id number] [address] [place] Hemoglobin (Bld) [Mass/Vol] 11.9 g/dL Low 13.0-17.0 [facility] Comment on above: Order Comment: Speci men Type: BLOOD SPECIMENOrdering Facility: [facility] Address: [address] [place] [address] Performed By: #### 5 8410-2 ####[facility]ORATORYCLIA [id number] [address] MCH (RBC) [Entitic mass] 34.5 pg High 26.0-34.0 [facility] Comment on above: Order Comment: Speci men Type: BLOOD SPECIMENOrdering Facility: [facility] Address: [address] [place] [address] Performed By: #### 5 8410-2 ####[facility]ORATORYCLIA [id number] [address] [place] MCHC (RBC) [Mass/Vol] 34.0 g/dL Normal 30.5-36.0 [facility] Comment on above: Order Comment: Speci men Type: BLOOD SPECIMENOrdering Facility: [facility] Address: [address] [place] [address] Performed By: #### 5 8410-2 ####[facility]ORATORYCLIA [id number] [address] MCV (RBC) [Entitic vol] 101.4 fL High 80.0-100.0 [facility] Comment on above: Order Comment: Speci men Type: BLOOD SPECIMENOrdering Facility: [facility] Address: [address] [place] [address] Performed By: #### 5 8410-2 ####[facility]ORATORYCLIA [id number] [address] Nucleated RBC (Bld) [#/Vol] 10*3/uL Normal <0.01 [facility] Comment on above: Order Comment: Speci men Type: BLOOD SPECIMENOrdering Facility: [facility] Address: [address] [place] [address] Performed By: #### 5 8410-2 ####[facility]ORATORYCLIA [id number] [place] [address] [place] Platelet mean volume (Bld) [Entitic vol] 10.6 fL Normal 9.0-12.7 [facility] Comment on above: Order Comment: Speci men Type: BLOOD SPECIMENOrdering Facility: [facility] Address: [address] [place] [address] Performed By: #### 5 8410-2 ####[facility]ORATORYCLIA [id number] [place] [address] [place] Platelets (Bld) [#/Vol] 317 10*3/uL Normal 150-400 [facility] Comment on above: Order Comment: Speci men Type: BLOOD SPECIMENOrdering Facility: [facility] Address: [address] [place] [address] Performed By: #### 5 8410-2 ####[facility]ORATORYCLIA [id number] [place] [address] [place] RBC (Bld) [#/Vol] 3.45 10*6/uL Low 4.20-6.00 [facility] Comment on above: Order Comment: Speci men Type: BLOOD SPECIMENOrdering Facility: [facility] Address: [address] [place] [address] Performed By: #### 5 8410-2 ####[facility]ORATORYCLIA [id number] [place] [address] [place] WBC (Bld) [#/Vol] 10.81 10*3/uL Normal 3.70-11.00 [facility] Comment on above: Order Comment: Speci men Type: BLOOD SPECIMENOrdering Facility: [facility] Address: [address] [place] [address] Performed By: #### 5 8410-2 ####[facility]ORATORYCLIA [id number] [address] [place] Magnesium SerPl-mCncon 04-21 Magnesium [Mass/Vol] 2.3 mg/dL Normal 1.7-2.3 [facility] Comment on above: Order Comment: Speci men Type: BLOOD SPECIMENOrdering Facility: [facility] Address: [facility] [place] [address] Performed By: #### 2 4321-2, 2776-11, ####[facility] LABORATORYCLIA [id number] [place] [address] [place] NURSING PROGon 04-21-2024 NURSING PROG HNO ID: [id number] Author: MOUNA KOHLER RN Service: Nursing Author Type: Registered Nurse Type: Nursing Progress Note Filed: 04/21/2024 19:32 Note Text: Nursing Progress: Topic: RESTRAINT NON-VIOLENT PATIENT NAME: Jonathon Perales Patient Location: [place] [address] Room: [place] [address] The patient demonstrates Attempting to Remove Medical Devices Vital to Medical Stability as evidenced by the following behaviors attempting to remove coretrak and lines which pose an imminent danger to self or others. The following interventions were attempted but were not effective in protecting the patient's safety: Alarms, Medications Reviewed, Modify Environment, Frequent Observation, Modify Equipment Next, a comprehensive assessment was performed and warranted placing the patient in Soft Bilateral Wrists, the least restrictive restraint needed to protect the patient's safety. Ongoing safety assessments and evaluation for earliest removal of restraints will be performed. DATE: April 21, 2024 TIME: 7:32 PM Mouna Kohler RN [facility] Phosphate SerPl-mCncon 04-21 Phosphate [Mass/Vol] 3.5 mg/dL Normal 2.7-4.8 [facility] Comment on above: Order Comment: Speci men Type: BLOOD SPECIMENOrdering Facility: [facility] Address: [facility] [place] [address] Performed By: #### 2 4321-2, 2776-11, ####[facility] LABORATORYCLIA [id number] [place] [address] [place] THERAPY NTon 04-21-2024 THERAPY NT HNO ID: [id number] Author: JL PERAZA CCC-CAT OPERATOR Service: Speech/Swallow Author Type: Speech Language Pathologist Type: Therapy (PT/OT/Speech/Resp) Filed: 04/21/2024 15:16 Note Text: Speech Therapy Modified Barium Swallow Study Evaluation SERVICE DATE: 04/21/2024 SERVICE TIME: 1415 to 1435 ROOM: [place] [address] ([facility]/ [facility]) IMPRESSION: Evidence of: Oropharyngeal dysphagia - consider cortrack. Diet Recommendations: NPO with alternative means of nutrition Swallowing Precautions Recommendations: Rigid Oral Hygiene Nursing Recommendations: See swallow guide posted in patients room, Use suction toothbrush with patient Recommended Discharge Disposition: Acute Rehab Justification for Recommended Discharge Disposition: Patient requires an intensive inpatient rehabilitation therapy program due to:, requires active, intensive and ongoing intervention of multiple therapy disciplines, complexity requiring a multi-disciplinary team approach, aspiration risk requiring ongoing medical management, dysphagia requiring frequent assessment and diet modification. Patient would benefit from intensive therapies, 3 hours of therapy a day to maximize potential to return to baseline level of function. 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 Confluent petechial hemorrhage. No space-occupying hematoma. Localized mass effect. 6-3: extubated Rehabilitation Precautions: Aspiration Precautions, Dysphagia, Cognitive Linguistics Deficits, Communication Deficits, Visual Deficits Reason for Speech Therapy Consult: swallowing and speech/cognitive evaluation Relevant Past Medical History: HTN, HPL, CAD, JAIRO Response to Therapy Interventions: Aspiration Risk, Aphasia, Cognitive Deficits, Confusion interferes with education, Multiple medical concerns, Visual Field Deficit Subjective: Patient alert and able to participate in therapy, dysarthric, +language of confusion. Current Status Oral Hygiene: Clear, moist oral cavity Dentition: Edentulous Current Feeding Method: IV Current Diet Textures: NPO Current Level Of Communication: Verbal, Aphasia, Dysarthria Current Management Of Secretions: Requires suctioning Frequency Of Suctioning: PRN Oral Motor Exam: Within Functional Limits Except Facial Symmetry Impaired: Left Labial Assessment: Poor labial seal Labial ROM Impaired: Left Labial Strength Impaired: Left Lingual Assessment: Generalized weakness Lingual ROM Impaired: Bilateral, Protrusion Lingual Protrusion Deviation: Left Lingual Strength Impaired: Left, Right, Bilateral Palatal Elevation: Within Functional Limits Swallow Position Of Patient During Assessment: Upright In Chair Compensatory Strategies Utilized During Assessment: 1:1 Supervision, Alert (patient should be fully alert for P.O. intake), Feed / Eat at a slow rate, Sit upright 90 degrees for all PO, Small Bite/Sip, No straws Instrumental Swallow Assessment Type: Modified Barium Swallow Study Modified Barium Swallow Views: Lateral position Barium Consistencies Provided: Thin Liquids, Mildly Thick Liquids (Maurice Thick) Oral Phase: Lip Closure: Escape progressing to mid-chin Tongue Control During Bolus Hold: Escape to lateral buccal cavity and/or floor of mouth Bolus Preparation/Masticatio n: Mastication not assessed Mastication Not Assessed Secondary To: Aspiration Bolus Transport/Lingual Motion: Slowed Tongue Motion for A-P movement of the bolus Oral Residue: Residue collection on oral structure Initiation Of Pharyngeal Swallow: Bolus head at posterior laryngeal surface of epiglottis Pharyngeal Phase: Soft Palate Elevation: Trace column of contrast or air between soft palate and pharyngeal wall Laryngeal Elevation: No superior movement of thyroid cartilage Anterior Hyoid Excursion: No anterior movement Epiglottic Movement: No inversion Laryngeal Vestibular Closure/Height of the Swallow: Incomplete - narrow column of air/contrast in laryngeal vestibule Pharyngeal Stripping Wave: Absent Pharyngeal Contraction (A/P View Only): Not tested Pharyngoesophageal Segment Opening: Complete distension and complete duration/no obstruction of flow of bolus Tongue Base Retraction: Trace column of contrast or air between tongue base and pharyngeal wall Pharyngeal Residue: Collection of residue within or on the pharyngeal structures, Residue within the valleculae following the swallow Esophageal Clearance In An Upright Position: Complete clearance Penetration: During the swallow Penetration With: Thin Liquids IDDSI Level 0, Mildly Thick Liquids IDDSI Level 2 (Maurice Thick) Aspiration: During the swallow Aspiration With: Thin Liquids IDDSI Level 0, Mildly Thick Liquids IDDSI Level 2 (Maurice Thick) Penetration-Aspiration Scale Level 8-Material enters the airway, passes below the vocal folds, and no effort is mad (more content not included)... [facility] THERAPY NT HNO ID: [id number] Author: LAVINIA MURILLO, PT Service: Physical Therapy Author Type: Physical Therapist Type: Therapy (PT/OT/Speech/Resp) Filed: 04/21/2024 14:30 Note Text: Physical Therapy Evaluation Summary SERVICE DATE: 04/21/2024 SERVICE TIME: 1119 to 1146 ROOM: [id number] ([facility]) PT 6 Clicks Score: 13 DISCHARGE RECOMMENDATIONS Acute Rehab Recommended Discharge Disposition Comments: pt. functioning below baseline and is a great candidate for acute rehab; can tolerate 3hours of therapy daily, 5x/week Recommended Discharge Disposition Due to: Patient requires an active, intensive rehabilitation therapy program due to:, ADL impairment resulting in caregiver dependence, ataxia, high level balance deficits, less than 3/5 weakness noted in:, motor planning deficits, coordination deficits, new / worsened cognitive deficits related to current diagnosis, ongoing intervention of multiple therapy disciplines, decline in functional status requiring daily skilled care ASSESSMENT Response to Therapy Interventions: Good Participation in Activities, Low Activity Tolerance, Needs Frequent Redirection or Reinstruction, Multiple Ongoing Medical Issues PRECAUTIONS Bed/Chair Alarm, Fall Risk, Lines/Tubes/Drains CURRENT HOSPITAL COURSE Pt visiting his hospitalized + stroke symptoms; L hemiplegia, aphasia, decreased sensation. + TNK. 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 Was intubated and extubated 04/20. Relevant Past Medical History: CKD, HTN, aortic valve replacement, CAD HOME LIVING Patient Lives With: Family, Other: See Comment Comments: Lives with dtr PRIOR FUNCTIONAL LEVEL Within Functional Limits, Required Assistance, Unable to Report Pt unable to report due to aphasia/dysarthria. Per chart pt lives with dtr in apt, completely independent, active, driving, prior to CVA. His lives in ECF. SUBJECTIVE Pt. nodded in agreement to PT/mobility THERAPY DIAGNOSIS Reduced mobility-other, Decreased activities of daily living (ADL), Muscle Weakness (generalized), Abnormalities of gait and mobility-other, Unsteadiness on feet, Paralytic gait, Ataxic gait TREATMENT INTERVENTIONS Evaluation, Therapeutic Activity (14835) Timed Code Treatment (minutes): 12 Skilled Treatment Time (minutes): 27 $ Evaluation-Moderate (27943) Billed Units: 1 unit Therapeutic Activity (29750) Treatment Minutes: 12 Cues for safe mobility per grid below Pt. Able to sit EOB and stand for several minutes Pt. Took multiple side steps along EOB with increased cueing and encouragement--difficu lty advancing LLE Completed step tap with bilat LE. Sitting EOB and standing at WW- target on floor for pt. and increased cueing for pt. 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 Became tearful towards end of session- offered emotional support and educated pt. On recovery and rehabilitation process TRAINING AND EDUCATION PROVIDED Bed Mobility, Benefits of In-Hospital Mobility, Role of Physical Therapy, Sitting Balance, Standing Balance, Transfers THERAPEUTIC SKILLS USED Activity Dosing, Assessment of Tolerance Including Vitals Response to Activity, Cues for Sequencing/Proper Technique for Activity, Cuing Tactile, Cuing Verbal, Cuing Visual, Physical Assist, Movement Facilitation FUNCTIONAL STATUS Bed Mobility Supine To Sit: Moderate Assistance, Additional Information HOB elevated, pt. pulled therapist arm to sit up, assist at trunk to sit upright completely Sit to Supine: Minimal Assistance, Additional Information assist with bilat. LE and trunk Transfers Sit To Stand: Moderate Assistance, Additional Information cues for handplacement and to push through bilat. LE Stand To Sit: Minimal Assistance, Additional Information cues for handplacement and to stick bottom out to sit further back Bed to Chair Gait Moderate Assistance, Additional Information Gait Device: Wheeled Walker General Deviations/Observation s: Shuffling Gait (difficulty advancing LLE) Gait Distance (feet): side steps along EOB--difficulty advancing LLE--needed walker advanced Gait Deviations Left Lower Extremity: Weight bearing decreased, Foot clearance decreased, Heel strike during initial stance decreased, Knee flexion during stance increased, Knee stability during stance phase decreased Stairs Range of Motion: ROM Limitation Comments ROM Limitation Comments: bilat. LE AROM grossly limited in supine, Left more limited than right Strength: Strength Limitation Comments Strength Limitation Comments: bilat LE strength limited, Left more limited than right GOALS Transfer Supine to/from Sit with: Contact Guard Assistance Transfer Sit to/from Stand with: Contact Guard Assistance Ambulate with: Minimal Assistance Distance: 15' x 2 Device: Wheeled (more content not included)... [facility] THERAPY NT HNO ID: [id number] Author: SHEN LUONG OTR/L Service: Occupational Therapy Author Type: Occupational Therapist Type: Therapy (PT/OT/Speech/Resp) Filed: 04/21/2024 10:44 Note Text: Occupational Therapy Evaluation Summary SERVICE DATE: 04/21/2024 SERVICE TIME: 0916 to 0944 ROOM: [place] [address] OT 6 Clicks Score: 11 DISCHARGE RECOMMENDATIONS Acute Rehab Recommended Discharge Disposition Comments: pt highly independent with new CVA. Pt can tolerate intensive level therapies Recommended Discharge Disposition Due to: Patient requires an active, intensive rehabilitation therapy program due to:, decline in functional status requiring daily skilled care, new / worsened cognitive deficits related to current diagnosis, ongoing intervention of multiple therapy disciplines ASSESSMENT Response to Therapy Interventions: Good Participation in Activities, Improved Tolerance for Activity, Low Activity Tolerance, Multiple Ongoing Medical Issues, Cognitive Deficits Facilitated bed level grooming and bathing tasks. Patient able to appropriately use wet washcloth on head and face for bathing, able to progress to washes abdomen area as well. Tends to perseverate washing face but with cues verbal and tactile able to progress to other parts of the body. Patient able to attend to left side of body with heavy cues and assist, when washing his arm and underneath his left arm. Assisted to doff soiled gown with urinary incontinence and don new gown after bathing task. Assisted to come to edge of bed with heavy assist, patient scooting himself down to foot of bed so that he can reach the foot board with his right upper extremity. Patient able to hold himself upright while therapist assist with bathing of his back and unsupported sitting. Assisted to static stand x 2 and heavily sidestep to head of bed, patient requires physical assist to advance left leg to the left stepping. Assisted to return to supine and scoot to head of bed at end of session. Patient is able to verbally communicate that he wants a diet Coke, otherwise much of his attempts at speaking is very difficult to understand. PRECAUTIONS Bed/Chair Alarm, Fall Risk CURRENT HOSPITAL COURSE Pt visiting his hospitalized + stroke symptoms; L hemiplegia, aphasia, decreased sensation. + TNK. 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 Was intubated and extubated 04/20. Relevant Past Medical History: JAIRO, HTN, aortic valve replacement HOME LIVING Patient Lives With: Family (Dtr) PRIOR FUNCTIONAL LEVEL Within Functional Limits Pt unable to report due to aphasia/dysarthria. Per chart pt lives with dtr in apt, completely independent, active, driving, prior to CVA. His lives in ECF. Baseline Cognition: Oriented to self, Oriented to place, Oriented to time, Oriented to situation SUBJECTIVE Pt with difficult to understand speech, able to participate and follow instructions for ADls fairly well. Able to understand that he asks for diet Coke COGNITION Communication Deficits: Expressive Deficits Orientation Deficits: Unable to assess (expressive deficits limit accuracy) Responsiveness: Alert, Awake Follows Commands: 1-step Commands, Cueing Needed, With Increased Time Cueing to Follow Commands: Moderate Attention Deficits: Divided Memory Deficits: (difficult to assess due to aphasia/dysarthria) Executive Function Deficits: Safety Awareness, Judgement, Insight to Deficits, Problem Solving THERAPY DIAGNOSIS Decreased activities of daily living (ADL), Reduced mobility-other, Muscle Weakness (generalized), Unsteadiness on feet, Abnormalities of gait and mobility-other, Signs and Symptoms Involving Cognitive Functions and Awareness TREATMENT INTERVENTIONS Evaluation, Self Half-Way Management (13338) Timed Code Treatment (minutes): 12 Skilled Treatment Time (minutes): 28 $ Evaluation - High (25464) Billed Units: 1 unit Self Half-Way Management (24955) Treatment Minutes: 12 $ Self Half-Way Management (82434) Billed Units: 1 unit TRAINING AND EDUCATION PROVIDED Bed Mobility, Benefits of In-Hospital Mobility, Command Following, Expected Functional Level, Grooming Tasks, Functional Mobility Involving ADLs, Lower Extremity Dressing, Role of Occupational Therapy, Positioning, Lower Extremity Bathing, Transfer - Sit to Stand, Upper Extremity Bathing, Upper Extremity Dressing, Memory/Attention, Orientation, Sitting Balance to Improve [place] with ADLs/Self-Care THERAPEUTIC SKILLS USED Activity Dosing, Cues for Sequencing/Proper Technique for Activity, Assessment of Tolerance Including Vitals Response to Activity, Cuing Tactile, Cuing Verbal, Cuing Visual, Physical Assist, Therapeutic Use of Self FUNCTIONAL STATUS Activities of Daily Living Assist Level Additional Information Feeding Moderate Assistance, Additional Information motion, pt NPO Grooming Maximal Assistance Bathing Upper Body (more content not included)... [facility] THERAPY NT HNO ID: [id number] Author: XIMENA TO, [facility]-CAT OPERATOR Service: Speech/Swallow Author Type: Speech Language Pathologist Type: Therapy (PT/OT/Speech/Resp) Filed: 04/21/2024 08:42 Note Text: Speech Therapy Clinical Swallow Evaluation SERVICE DATE: 04/21/2024 SERVICE TIME: 0810 to 0828 ROOM: [place] [address] IMPRESSION: Swallow Deficits Identified / Suspected: Oropharyngeal dysphagia Diet Recommendations: NPO with alternative means of nutrition Swallowing Precautions Recommendations: Rigid Oral Hygiene Nursing Recommendations: Routine Rigid Oral Hygiene, See swallow guide posted in patients room, Use suction toothbrush with patient Instrumental Swallow Assessment Recommendations: Modified Barium Swallow Study (MBSS) Recommended Discharge Disposition: Acute Rehab Justification for Recommended Discharge Disposition: requires active, intensive and ongoing intervention of multiple therapy disciplines, Patient requires an intensive inpatient rehabilitation therapy program due to:, expressive language/communication deficits, receptive language/communication deficits, dysphagia requiring frequent assessment and diet modification Current Hospital Course: Admitted for stroke symptoms, 04-17: MRI- Confluent subacute infarct in the right MCA territory. Confluent petechial hemorrhage. No space-occupying hematoma. Localized mass effect. 6-3: extubated Rehabilitation Precautions: Aspiration Precautions, Communication Deficits, Cognitive Linguistics Deficits, Dysphagia Reason for Speech Therapy Consult: swallowing and speech/cognitive evaluation Relevant Past Medical History: HTN, HPL, CAD, JAIRO Response to Therapy Interventions: Aphasia, Aspiration Risk, Fatigue Subjective: Drowsy but able to participate Current Status Oral Hygiene: Clear, moist oral cavity, Oral Health Assessment Tool (OHAT) Dentition: Edentulous Current Feeding Method: IV Current Diet Textures: NPO Current Level Of Communication: Verbal, Aphasia, Dysarthria Current Management Of Secretions: Requires suctioning Frequency Of Suctioning: PRN Oral Motor Exam: Within Functional Limits Except Facial Symmetry Impaired: Left Labial Assessment: Poor labial seal Labial ROM Impaired: Left Labial Strength Impaired: Left Lingual Assessment: Generalized weakness Lingual ROM Impaired: Bilateral, Protrusion Lingual Protrusion Deviation: Left Lingual Strength Impaired: Left, Right, Bilateral Palatal Elevation: Within Functional Limits Oral Health Assessment Tool (OHAT) Lips: 0 Tongue: 0 Gums and Tissues: 0 Saliva: 0 Natural Teeth: N/A Dentures: N/A Oral Cleanliness: 0 Dental Pain: 0 OHAT Total Score: 0 Swallow Position Of Patient During Assessment: Upright In Bed Consistencies Presented: Thin Liquids IDDSI Level 0, Mildly Thick Liquids IDDSI Level 2 (Maurice Thick), Pureed IDDSI Level 4 Compensatory Strategies Utilized During Assessment: Alert (patient should be fully alert for P.O. intake), 1:1 Supervision, Extended time between presentations, Feed / Eat at a slow rate, Ensure heightened awareness to completion of the swallow, Sit upright 90 degrees for all PO, Small Bite/Sip, Voice checks Clinical Swallow Oral Pharyngeal Swallow Assessment: Within Functional Limits Except Preparatory / Oral Phase: Within Functional Limits Except Bolus Awareness: Impaired Oral Containment: Mildly Impaired Bolus Manipulation: Suspect impairment A-P Transit: Suspect impairment Pharyngeal Phase: Within Functional Limits Except Initiation of Swallow: Suspect impairment Range of Hyoid/Laryngeal Elevation: Suspect impairment Reflexive Throat Clear and Cough after Swallowing: Yes, Post-Swallow Multiple Swallows: No, Post-Swallow Suspected Esophageal Deficits: none Patient drowsy but able to participate Minimal speech- aphasia and dysarthria Weak voice and cough Patient swallowed trials of thin, nectars and puree- throat clearing and wet voice Nurse reports " thick secretions" Laryngeal movement was detected upon palpation of the larynx Recommend NPO at this time and instrumental swallowing testing via Modified Barium Swallow Nurse aware of results and recommendations Speech will follow for swallowing management Patient /Caregiver Goals: Patient Unable To State/Report Goals for Plan of Care: Goals: SWALLOWING: Patient / Caregiver will demonstrate knowledge of taught compensatory strategies and dietary consistency recommendations to optimize functional swallow function without overt clinical signs and symptoms of aspiration or dysphagia Swallow Goals: Patient will participate in a Modified Barium Swallow Study (MBS) to thoroughly evaluate the oral and pharyngeal phase of the swallow, which cannot be substantiated through a clinical swallowing evaluation only. Through further diagnostic testing a definitive diagnosis/identificati on of the patient's current swallowing function and recommended treatment (more content not included)... [facility] XR ABDOMEN 1V SUPINEon 04-21 XR ABDOMEN 1V SUPINE * * *Final Report* * * DATE OF EXAM: Apr 21 2024 4:10PM [id number] - XR ABDOMEN 1V SUPINE / PROCEDURE REASON: Evaluate tube, line or lead position * * * * Physician Interpretation * * * * ABDOMINAL X-RAY HISTORY: Evaluate tube, line or lead position COMPARISON: 04/19/2024 TECHNIQUE: Supine AP view of the abdomen RESULT: Feeding tube is in place with tubing coursing to the left lateral upper quadrant and then coiled back on itself with tip seen superimposed over the expected location of the gastroesophageal junction. There is a normal abdominal gas pattern. No evidence of dilated bowel. There are no stones detected over the kidneys or the expected course of the ureters bilaterally. Persistent elevation of the right hemidiaphragm. IMPRESSION: Feeding tube in place with tip projected over the midline upper abdomen at the expected location of the gastroesophageal junction and pointing right and cephalad. This should be repositioned. Inspector Tester Sorter: [facility] Transcribe Date/Time: Apr 21 2024 5:11P Dictated by : ERYN NARANJO MD This examination was interpreted and the report reviewed and electronically signed by: ERYN NARANJO MD on Apr 21 2024 5:14PM EST [id number] [facility] XR MOD BARIUM SWALLOW W PAULINA Salvador 04-21-2024 XR MOD BARIUM SWALLOW W SPEECH * * *Final Report* * * DATE OF EXAM: Apr 21 2024 3:13PM [id number] - XR MOD BARIUM SWALLOW W SPEECH / PROCEDURE REASON: Dysphagia, known cause * * * * Physician Interpretation * * * * EXAM TITLE: MODIFIED BARIUM SWALLOW STUDY DATE: 04/21/2024 CLINICAL INDICATION/HISTORY: Dysphagia. TECHNIQUE: Video fluoroscopy was recorded over the cervical esophagus in the lateral projection. Barium preparations of varying consistency were administered by speech pathology. Radiologist was not present for the examination. FINDINGS: Please refer to speech therapist's note for details. Fluoroscopic Radiation Summary: Plane A, Air Kerma: Dose Area Product (DAP): Fluoro time: min:sec IMPRESSION: Technical support for modified barium swallow study. Inspector Tester Sorter: [facility] Transcribe Date/Time: Apr 21 2024 4:21P Dictated by : EVELIO GEORGE MD This examination was interpreted and the report reviewed and electronically signed by: EVELIO GEORGE MD on Apr 21 2024 4:21PM EST [id number] [facility] Basic metabolic 2000 panelon 04-20-2024 Anion gap [Moles/Vol] 10 mmol/L Normal 9-18 [facility] Comment on above: Order Comment: Speci men Type: BLOOD SPECIMENOrdering Facility: [facility] Address: [address] [place] [address] Performed By: #### 2 4321-2, 65668-9, 2777-1 ####[facility] LABORATORYCLIA [id number] [place] [address] [place] Calcium [Mass/Vol] 9.1 mg/dL Normal 8.5-10.2 [facility] Comment on above: Order Comment: Speci men Type: BLOOD SPECIMENOrdering Facility: [facility] Address: [address] [place] [id number] Performed By: #### 2 4321-2, , 2776-11 ####[facility] LABORATORYCLIA [id number] [place] [address] [place] Chloride [Moles/Vol] 99 mmol/L Normal 97-105 [facility] Comment on above: Order Comment: Speci men Type: BLOOD SPECIMENOrdering Facility: [facility] Address: [address] [place] [address] Performed By: #### 2 4321-2, , 2776-11 ####[facility]ORATORYCLIA [id number] [place] [id number] [place] CO2 [Moles/Vol] 26 mmol/L Normal 22-30 [facility] Comment on above: Order Comment: Speci men Type: BLOOD SPECIMENOrdering Facility: [facility] Address: [address] [place] [address] Performed By: #### 2 4321-2, , 2776-11 ####[facility] LABORATORYCLIA [id number] [place] [address] [place] Creatinine [Mass/Vol] 0.99 mg/dL Normal 0.73-1.22 [facility] Comment on above: Order Comment: Speci men Type: BLOOD SPECIMENOrdering Facility: [facility] Address: [address] [place] [address] Performed By: #### 2 4321-2, , 2776-11 ####[facility] LABORATORYCLIA [id number] [place] [id number] [facility] Creatinine and Glomerular filtration rate.predicted panel (S/P/Bld) 80 mL/min/1.73m??? Normal >=60 [facility] Comment on above: Order Comment: Speci men Type: BLOOD SPECIMENOrdering Facility: [facility] Address: [address] [place] [address] Result Comment: Bianca mated Glomerular Filtration Rate (eGFR) is calculated using the 2021 CKD-EPI creatinine equation. This equation utilizes serum creatinine, sex, and age as parameters. The creatinine assay has traceable calibration to isotope dilution-mass spectrometry. Refer to KDIGO guidelines for clinical interpretation. In patients with unstable renal function, e.g. those with acute kidney injury, the eGFR may not accurately reflect actual GFR. Performed By: #### 2 4321-2, , 2776-11 ####[facility]ATORYCLIA [id number] [place] [address] [place] Glucose [Mass/Vol] 126 mg/dL High 74-99 [facility] Comment on above: Order Comment: Lyndsey eller Type: BLOOD SPECIMENOrdering Facility: [facility] Address: [address] [place] [address] Result Comment: The [place] Diabetes Association (ADA) provides guidance for cutoff values for fasting glucose and random glucose. The ADA defines fasting as no caloric intake for at least 8 hours. Fasting plasma glucose results between 100 to 125 mg/dL indicate increased risk for diabetes (prediabetes). Fasting plasma glucose results greater than or equal to 126 mg/dL meet the criteria for diagnosis of diabetes. In the absence of unequivocal hyperglycemia, results should be confirmed by repeat testing. In a patient with classic symptoms of hyperglycemia or hyperglycemic crisis, random plasma glucose results greater than or equal to 200 mg/dL meet the criteria for diagnosis of diabetes. Reference: Standards of Medical Care in Diabetes 2016, [place] [employer]. Diabetes Care. 2016.39(Suppl 1). Performed By: #### 2 4321-2, , 2776-11 ####[facility]ORATORYCLIA [id number] [place] [id number] [place] Potassium [Moles/Vol] 4.4 mmol/L Normal 3.7-5.1 [facility] Comment on above: Order Comment: Lyndsey eller Type: BLOOD SPECIMENOrdering Facility: [facility] Address: [address] [place] [address] Performed By: #### 2 4321-2, , 2776-11 ####[facility]ATORYCLIA [id number] [place] [address] [place] Sodium [Moles/Vol] 135 mmol/L Low 136-144 [facility] Comment on above: Order Comment: Speci men Type: BLOOD SPECIMENOrdering Facility: [facility] Address: [address] [place] [address] Performed By: #### 2 4321-2, , 2776-11 ####[facility]ORATORYCLIA [id number] [address] STATES OF [facility] Urea nitrogen [Mass/Vol] 30 mg/dL High 9-24 [facility] Comment on above: Order Comment: Speci men Type: BLOOD SPECIMENOrdering Facility: [facility] Address: [address] [place] [address] Performed By: #### 2 4321-2, , 2776-11 ####[facility]ORATORYCLIA [id number] [address] STATES OF [facility] CBC panel Auto (Bld)on 04-20 Erythrocyte distribution width (RBC) [Ratio] 12.0 % Normal 11.5-15.0 [facility] Comment on above: Order Comment: Speci men Type: BLOOD SPECIMENOrdering Facility: [facility] Address: [address] [place] [address] Performed By: #### 5 8410-2 ####[facility]ORATORYCLIA [id number] [address] STATES OF [facility] Hematocrit (Bld) [Volume fraction] 31.2 % Low 39.0-51.0 [facility] Comment on above: Order Comment: Speci men Type: BLOOD SPECIMENOrdering Facility: [facility] Address: [address] [place] [address] Performed By: #### 5 8410-2 ####[facility]ATORYCLIA [id number] [address] [place] Hemoglobin (Bld) [Mass/Vol] 10.8 g/dL Low 13.0-17.0 [facility] Comment on above: Order Comment: Speci men Type: BLOOD SPECIMENOrdering Facility: [facility] Address: [address] [place] [address] Performed By: #### 5 8410-2 ####[facility]ORATORYCLIA [id number] [address] MCH (RBC) [Entitic mass] 35.4 pg High 26.0-34.0 [facility] Comment on above: Order Comment: Speci men Type: BLOOD SPECIMENOrdering Facility: [facility] Address: [address] [place] [address] Performed By: #### 5 8410-2 ####[facility]ATORYCLIA [id number] [address] MCHC (RBC) [Mass/Vol] 34.6 g/dL Normal 30.5-36.0 [facility] Comment on above: Order Comment: Speci men Type: BLOOD SPECIMENOrdering Facility: [facility] Address: [address] [place] [address] Performed By: #### 5 8410-2 ####[facility]ORATORYCLIA [id number] [address] MCV (RBC) [Entitic vol] 102.3 fL High 80.0-100.0 [facility] Comment on above: Order Comment: Speci men Type: BLOOD SPECIMENOrdering Facility: [facility] Address: [address] [place] [address] Performed By: #### 5 8410-2 ####[facility]ATORYCLIA [id number] [address] Nucleated RBC (Bld) [#/Vol] 10*3/uL Normal <0.01 [facility] Comment on above: Order Comment: Speci men Type: BLOOD SPECIMENOrdering Facility: [facility] Address: [address] [place] [address] Performed By: #### 5 8410-2 ####[facility]ORATORYCLIA [id number] [address] Platelet mean volume (Bld) [Entitic vol] 11.0 fL Normal 9.0-12.7 [facility] Comment on above: Order Comment: Speci men Type: BLOOD SPECIMENOrdering Facility: [facility] Address: [address] [place] [address] Performed By: #### 5 8410-2 ####[facility]ORATORYCLIA [id number] [address] OF [facility] Platelets (Bld) [#/Vol] 223 10*3/uL Normal 150-400 [facility] Comment on above: Order Comment: Speci men Type: BLOOD SPECIMENOrdering Facility: [facility] Address: [address] [place] [address] Performed By: #### 5 8410-2 ####[facility]ORATORYCLIA [id number] [address] [place] RBC (Bld) [#/Vol] 3.05 10*6/uL Low 4.20-6.00 [facility] Comment on above: Order Comment: Speci men Type: BLOOD SPECIMENOrdering Facility: [facility] Address: [address] [place] [address] Performed By: #### 5 8410-2 ####[facility]ATORYCLIA [id number] [address] [place] WBC (Bld) [#/Vol] 7.59 10*3/uL Normal 3.70-11.00 [facility] Comment on above: Order Comment: Speci men Type: BLOOD SPECIMENOrdering Facility: [facility] Address: [address] [place] [address] Performed By: #### 5 8410-2 ####[facility]ORATORYCLIA [id number] [address] OF [place] Magnesium SerPl-mCncon 04-20 Magnesium [Mass/Vol] 2.3 mg/dL Normal 1.7-2.3 [facility] Comment on above: Order Comment: Speci men Type: BLOOD SPECIMENOrdering Facility: [facility] Address: [address] [place] [address] Performed By: #### 2 4321-2, 01760-7, 2777-1 ####[facility]ORATORYCLIA [id number] [address] OF [facility] NURSING PROGon 04-20-2024 NURSING PROG HNO ID: [id number] Author: MOUNA KOHLER RN Service: Nursing Author Type: Registered Nurse Type: Nursing Progress Note Filed: 04/21/2024 06:19 Note Text: Nursing Progress: Topic: RESTRAINT NON-VIOLENT PATIENT NAME: Jonathon Perales Patient Location: [place] [address] [address] Room: [place] [address] The patient demonstrates Attempting to Remove Medical Devices Vital to Medical Stability, Confusion, Lack of Understanding/Ability to Comply with Safety Directions, Impulsive Behavior, Inability to be Redirected, Inability to Retain Information Regarding Safety Directions as evidenced by the following behaviors attempting to remove lines and oxygen which pose an imminent danger to self or others. The following interventions were attempted but were not effective in protecting the patient's safety: Call Light Within Reach, Medications Reviewed Next, a comprehensive assessment was performed and warranted placing the patient in Soft Bilateral Wrists, the least restrictive restraint needed to protect the patient's safety. Ongoing safety assessments and evaluation for earliest removal of restraints will be performed. DATE: April 21, 2024 TIME: 6:19 AM Mouna Kohler RN [facility] NUTRITIONon 04-20-2024 NUTRITION HNO ID: [id number] Author: DON DICKSON RD Service: Nutrition Therapy Author Type: Registered Dietitian Type: Nutrition Filed: 04/20/2024 14:15 Note Text: NUTRITION THERAPY PROGRESS NOTE SERVICE DATE: 04/20/2024 SERVICE TIME: 1015 Nutrition Assessment: Recommended Malnutrition Diagnosis: Unable to Identify Malnutrition at this time (04/16/24 1240 : Don Dickson RD) - reattempted to diagnose 04/17 and 04/20. Unknown weight history. Pt does not meet criteria based on energy intake history or NFPE. Care Plan: No change in EN prescription Enteral Nutrition Tube Feeding Formula Type: Isosource 1.5 Goal Rate (mL/hr x hours): 50 ml/hr x 24 hours (1.2 L--1800 lashawn, 82 gm pro, 917 ml free water) Water Flush Volume (mL x frequency: 30 ml q4h Modular: ProSouce NoCarb Neutral (x1) Recommended Enteral Access: Oral;Gastric Monitor and Evaluation: Meet greater than 75% of estimated needs, Monitor bowel function, Monitor labs, I/Os, vital signs, weight, Monitor tolerance to tube feeding Interval History: Pt remains intubated. Propofol weaned off. Plans to extubated today. Tolerating TF @ goal rate. Intake History: Average Daily Calorie Intake (kcal): 1313 kcal Average Daily Protein Intake (gm): 76 gm Average intake over: (4 days- propofol, TF, and protein modular) Dosing Weight: 68.5 kg (151 lb) Dosing Weight Type: Current weight Estimated kilocalorie needs: 5846-9244 Calorie Calculation Method: 25-30 kcals/kg Estimated protein needs (grams): 82-109 Grams protein determined by: 1.2 - 1.6 g/kg Diet Orders (From admission, onward) Start Ordered 04/16/24 1415 DIET TUBE FEED - CONTIN (NO TRAY) START NOW Question Answer Comment TF Product (26 years and up) ISOSOURCE 1.5 [place] Approved Secondary TF Product (Do Not Change) Jevity 1.5 TF Total mL per 24 hours 1200 Number of Liter Bags 1 TF Goal Rate (mL/hr) 50 TF Initial Rate (mL/hr) 10 TF Advance by (mL/hr) 10 TF Advance every (hrs) 4 TF Water Flush Amount (mL) 30 TF Water Flush Frequency Every 4 Hours TF Additive Product 1 (26 years and up) PROSOURCE NOCARB NEUTRAL TF Additive 1 Frequency (times/day) 1 04/16/24 1403 Anthropometrics: Height: 170.2 cm (5' 7") Weight: (bedscale not working) Body mass index is 23.69 kg/m?. Weight Change: Unable to determine GI Symptoms: None Stool Amount: WNL MNT Billing: $ Reassessment: 1-15 minutes SIGNATURE: Don Dickson RD PATIENT NAME: Jonathon Perales DATE: April 20, 2024 TIME: 2:05 PM Normal [facility] Phosphate SerPl-mCncon 04-20 Phosphate [Mass/Vol] 4.1 mg/dL Normal 2.7-4.8 [facility] Comment on above: Order Comment: Lyndsey men Type: BLOOD SPECIMENOrdering Facility: [facility] Address: [address] [place] [id number] Performed By: #### 2 4321-2, 13073-5, 2777-1 ####[facility]ORATORYCLIA [id number] [place] [address] [facility] THERAPY NTon 04-20-2024 THERAPY NT HNO ID: [id number] Author: KILEY MCCRACKEN RRT Service: Respiratory Therapy Author Type: Registered Resp Therapist Type: Therapy (PT/OT/Speech/Resp) Filed: 04/20/2024 08:34 Note Text: Summary: SBT/WP CPAP 5/PSV 5 04/20/24 0822 Extubation Parameters $Extubation Parameters $Extubation Parameters Performed Spontaneous Respiratory Rate (BPM) 28 Spontaneous Minute Volume (L/min) 9.7 Spontaneous Tidal Volume (mL) 323 Rapid Shallow Breathing Index (RSBI) 86.69 Forced Vital Capacity (L) 0.61 Negative Inspiratory Force (cm H2O) -19 Cuff Leak Y Normal [facility] Basic metabolic 2000 panelon 04-19-2024 Anion gap [Moles/Vol] 11 mmol/L Normal 9-18 [facility] Comment on above: Order Comment: Lyndsey eller Type: BLOOD SPECIMENOrdering Facility: [facility] Address: [address] [place] [address] Performed By: #### 2 4321-2, 2776-11, ####[facility]ORATORYCLIA [id number] [place] [address] [place] Calcium [Mass/Vol] 9.1 mg/dL Normal 8.5-10.2 [facility] Comment on above: Order Comment: Speci men Type: BLOOD SPECIMENOrdering Facility: [facility] Address: [address] [place] [address] Performed By: #### 2 4321-2, 2776-11, ####[facility]ATORYCLIA [id number] [place] [address] [place] Chloride [Moles/Vol] 101 mmol/L Normal 97-105 [facility] Comment on above: Order Comment: Speci men Type: BLOOD SPECIMENOrdering Facility: [facility] Address: [address] [place] [address] Performed By: #### 2 4321-2, 2776-11, ####[facility]ATORYCLIA [id number] [place] [address] [place] CO2 [Moles/Vol] 25 mmol/L Normal 22-30 [facility] Comment on above: Order Comment: Speci men Type: BLOOD SPECIMENOrdering Facility: [facility] Address: [address] [place] [address] Performed By: #### 2 4321-2, 2776-11, ####[facility]ORATORYCLIA [id number] [place] [address] [place] Creatinine [Mass/Vol] 0.94 mg/dL Normal 0.73-1.22 [facility] Comment on above: Order Comment: Speci men Type: BLOOD SPECIMENOrdering Facility: [facility] Address: [address] [place] [address] Performed By: #### 2 4321-2, 2776-11, ####[facility]ORATORYCLIA [id number] [place] [address] [place] Creatinine and Glomerular filtration rate.predicted panel (S/P/Bld) 85 mL/min/1.73m??? Normal >=60 [facility] Comment on above: Order Comment: Lyndsey eller Type: BLOOD SPECIMENOrdering Facility: [facility] Address: [address] [place] [address] Result Comment: Bianca mated Glomerular Filtration Rate (eGFR) is calculated using the 2020 CKD-EPI creatinine equation. This equation utilizes serum creatinine, sex, and age as parameters. The creatinine assay has traceable calibration to isotope dilution-mass spectrometry. Refer to KDIGO guidelines for clinical interpretation. In patients with unstable renal function, e.g. those with acute kidney injury, the eGFR may not accurately reflect actual GFR. Performed By: #### 2 4321-2, 2777-, ####[facility]ATORYCLIA [id number] [place] [address] [place] Glucose [Mass/Vol] 125 mg/dL High 74-99 [facility] Comment on above: Order Comment: Lyndsey eller Type: BLOOD SPECIMENOrdering Facility: [facility] Address: [address] [place] [address] Result Comment: The [place] Diabetes Association (ADA) provides guidance for cutoff values for fasting glucose and random glucose. The ADA defines fasting as no caloric intake for at least 8 hours. Fasting plasma glucose results between 100 to 125 mg/dL indicate increased risk for diabetes (prediabetes). Fasting plasma glucose results greater than or equal to 126 mg/dL meet the criteria for diagnosis of diabetes. In the absence of unequivocal hyperglycemia, results should be confirmed by repeat testing. In a patient with classic symptoms of hyperglycemia or hyperglycemic crisis, random plasma glucose results greater than or equal to 200 mg/dL meet the criteria for diagnosis of diabetes. Reference: Standards of Medical Care in Diabetes 2016, [place] [employer]. Diabetes Care. 2016.39(Suppl 1). Performed By: #### 2 4321-2, 2777-, ####[facility]ATORYCLIA [id number] [place] [address] [place] Potassium [Moles/Vol] 4.2 mmol/L Normal 3.7-5.1 [facility] Comment on above: Order Comment: Speci men Type: BLOOD SPECIMENOrdering Facility: [facility] Address: [address] [place] [address] Performed By: #### 2 4321-2, 2776-11, ####[facility]ORATORYCLIA [id number] [address] STATES OF [facility] Sodium [Moles/Vol] 137 mmol/L Normal 136-144 [facility] Comment on above: Order Comment: Speci men Type: BLOOD SPECIMENOrdering Facility: [facility] Address: [address] [place] [address] Performed By: #### 2 4321-2, 2776-11, ####[facility]ATORYCLIA [id number] [address] [place] Urea nitrogen [Mass/Vol] 24 mg/dL Normal 9-24 [facility] Comment on above: Order Comment: Speci men Type: BLOOD SPECIMENOrdering Facility: [facility] Address: [address] [place] [address] Performed By: #### 2 4321-2, 2776-11, ####[facility]ATORYCLIA [id number] [address] STATES OF [facility] CBC panel Auto (Bld)on 04-19 Erythrocyte distribution width (RBC) [Ratio] 12.2 % Normal 11.5-15.0 [facility] Comment on above: Order Comment: Speci men Type: BLOOD SPECIMENOrdering Facility: [facility] Address: [address] [place] [address] Performed By: #### 5 8410-2 ####[facility]ORATORYCLIA [id number] [address] Hematocrit (Bld) [Volume fraction] 30.9 % Low 39.0-51.0 [facility] Comment on above: Order Comment: Speci men Type: BLOOD SPECIMENOrdering Facility: [facility] Address: [address] [place] [address] Performed By: #### 5 8410-2 ####[facility]ORATORYCLIA [id number] [address] Hemoglobin (Bld) [Mass/Vol] 10.5 g/dL Low 13.0-17.0 [facility] Comment on above: Order Comment: Speci men Type: BLOOD SPECIMENOrdering Facility: [facility] Address: [address] [place] [address] Performed By: #### 5 8410-2 ####[facility]ATORYCLIA [id number] [address] MCH (RBC) [Entitic mass] 34.8 pg High 26.0-34.0 [facility] Comment on above: Order Comment: Speci men Type: BLOOD SPECIMENOrdering Facility: [facility] Address: [address] [place] [address] Performed By: #### 5 8410-2 ####[facility]ATORYCLIA [id number] [address] MCHC (RBC) [Mass/Vol] 34.0 g/dL Normal 30.5-36.0 [facility] Comment on above: Order Comment: Speci men Type: BLOOD SPECIMENOrdering Facility: [facility] Address: [address] [place] [address] Performed By: #### 5 8410-2 ####[facility]ATORYCLIA [id number] [address] MCV (RBC) [Entitic vol] 102.3 fL High 80.0-100.0 [facility] Comment on above: Order Comment: Speci men Type: BLOOD SPECIMENOrdering Facility: [facility] Address: [address] [place] [address] Performed By: #### 5 8410-2 ####[facility]ATORYCLIA [id number] [address] Nucleated RBC (Bld) [#/Vol] 10*3/uL Normal <0.01 [facility] Comment on above: Order Comment: Speci men Type: BLOOD SPECIMENOrdering Facility: [facility] Address: [address] [place] [address] Performed By: #### 5 8410-2 ####[facility]ATORYCLIA [id number] [address] [place] Platelet mean volume (Bld) [Entitic vol] 11.0 fL Normal 9.0-12.7 [facility] Comment on above: Order Comment: Speci men Type: BLOOD SPECIMENOrdering Facility: [facility] Address: [address] [place] [address] Performed By: #### 5 8410-2 ####[facility]ORATORYCLIA [id number] [address] [place] Platelets (Bld) [#/Vol] 187 10*3/uL Normal 150-400 [facility] Comment on above: Order Comment: Speci men Type: BLOOD SPECIMENOrdering Facility: [facility] Address: [address] [place] [address] Performed By: #### 5 8410-2 ####[facility]ATORYCLIA [id number] [place] [address] [place] RBC (Bld) [#/Vol] 3.02 10*6/uL Low 4.20-6.00 [facility] Comment on above: Order Comment: Speci men Type: BLOOD SPECIMENOrdering Facility: [facility] Address: [address] [place] [address] Performed By: #### 5 8410-2 ####[facility]ORATORYCLIA [id number] [address] [place] WBC (Bld) [#/Vol] 7.80 10*3/uL Normal 3.70-11.00 [facility] Comment on above: Order Comment: Speci men Type: BLOOD SPECIMENOrdering Facility: [facility] Address: [address] [place] [address] Performed By: #### 5 8410-2 ####[facility]ATORYCLIA [id number] [place] [address] [facility] Magnesium SerPl-ncon 04-19 Magnesium [Mass/Vol] 2.1 mg/dL Normal 1.7-2.3 [facility] Comment on above: Order Comment: Speci men Type: BLOOD SPECIMENOrdering Facility: [facility] Address: [address] [place], [place] [address] Performed By: #### 2 4321-2, 2777-1, 46183-5 ####[facility]ORATORYCLIA [id number] [place] [address] [facility] Phosphate SerPl-ncon 04-19 Phosphate [Mass/Vol] 3.6 mg/dL Normal 2.7-4.8 [facility] Comment on above: Order Comment: Speci men Type: BLOOD SPECIMENOrdering Facility: [facility] Address: [address] [place] [address] Performed By: #### 2 4321-2, 2777-1, 84806-2 ####[facility]ORATORYCLIA [id number] [place], [place] [id number] [place] [address] OF [facility] XR ABDOMEN 1V SUPINEon 04-19 XR ABDOMEN 1V SUPINE * * *Final Report* * * DATE OF EXAM: Apr 19 2024 6:44PM AKX [id number] - XR ABDOMEN 1V SUPINE / PROCEDURE REASON: Evaluate tube, line or lead position * * * * Physician Interpretation * * * * EXAM TITLE: XR ABDOMEN 1V SUPINE DATE: 04/19/2024 6:52 PM INDICATION: Tube placement COMPARISON: None. FINDINGS: Esophagogastric tube tip is at the mid stomach. The visualized bowel gas pattern is nonobstructive. Incidentally, there is a small right pleural effusion. IMPRESSION: See above. Inspector Tester Sorter: PSCB Transcribe Date/Time: Apr 19 2024 6:52P Dictated by : REED SAM MD This examination was interpreted and the report reviewed and electronically signed by: REED SAM MD on Apr 19 2024 6:53PM EST [id number] Normal [facility] Basic metabolic 2000 panelon 04-18-2024 Anion gap [Moles/Vol] 9 mmol/L Normal 9-18 [facility] Comment on above: Order Comment: Speci men Type: BLOOD SPECIMENOrdering Facility: [facility] Address: [address] [place], [place] [address] Performed By: #### 2 4321-2, , 2776-11 ####[facility] LABORATORYCLIA [id number] [place] [address] [place] Calcium [Mass/Vol] 8.8 mg/dL Normal 8.5-10.2 [facility] Comment on above: Order Comment: Speci men Type: BLOOD SPECIMENOrdering Facility: [facility] Address: [address] [place] [address] Performed By: #### 2 4321-2, , 2776-11 ####[facility]ORATORYCLIA [id number] [place] [address] [place] Chloride [Moles/Vol] 105 mmol/L Normal 97-105 [facility] Comment on above: Order Comment: Speci men Type: BLOOD SPECIMENOrdering Facility: [facility] Address: [address] [place] [address] Performed By: #### 2 4321-2, , 2776-11 ####[facility] LABORATORYCLIA [id number] [place] [address] [place] CO2 [Moles/Vol] 22 mmol/L Normal 22-30 [facility] Comment on above: Order Comment: Speci men Type: BLOOD SPECIMENOrdering Facility: [facility] Address: [address] [place] [address] Performed By: #### 2 4321-2, , 2776-11 ####[facility] LABORATORYCLIA [id number] [place] [address] [place] Creatinine [Mass/Vol] 0.94 mg/dL Normal 0.73-1.22 [facility] Comment on above: Order Comment: Speci men Type: BLOOD SPECIMENOrdering Facility: [facility] Address: [address] [place] [address] Performed By: #### 2 4321-2, 94415-0, 2776-11 ####[facility]ITAL[facility] [id number] [place] [id number] [place] Creatinine and Glomerular filtration rate.predicted panel (S/P/Bld) 85 mL/min/1.73m??? Normal >=60 [facility] Comment on above: Order Comment: Lyndsey eller Type: BLOOD SPECIMENOrdering Facility: [facility] Address: [address] [place] [address] Result Comment: Bianca mated Glomerular Filtration Rate (eGFR) is calculated using the 2020 CKD-EPI creatinine equation. This equation utilizes serum creatinine, sex, and age as parameters. The creatinine assay has traceable calibration to isotope dilution-mass spectrometry. Refer to KDIGO guidelines for clinical interpretation. In patients with unstable renal function, e.g. those with acute kidney injury, the eGFR may not accurately reflect actual GFR. Performed By: #### 2 4321-2, , 2776-11 ####[facility]ITALIA [id number] [place] [id number] [place] Glucose [Mass/Vol] 128 mg/dL High 74-99 [facility] Comment on above: Order Comment: Lyndsey eller Type: BLOOD SPECIMENOrdering Facility: [facility] Address: [address] [place] [address] Result Comment: The [place] [employer] (ADA) provides guidance for cutoff values for fasting glucose and random glucose. The ADA defines fasting as no caloric intake for at least 8 hours. Fasting plasma glucose results between 100 to 125 mg/dL indicate increased risk for diabetes (prediabetes). Fasting plasma glucose results greater than or equal to 126 mg/dL meet the criteria for diagnosis of diabetes. In the absence of unequivocal hyperglycemia, results should be confirmed by repeat testing. In a patient with classic symptoms of hyperglycemia or hyperglycemic crisis, random plasma glucose results greater than or equal to 200 mg/dL meet the criteria for diagnosis of diabetes. Reference: Standards of Medical Care in Diabetes 2016, [place] [employer]. Diabetes Care. 2016.39(Suppl 1). Performed By: #### 2 4321-2, , 2776-11 ####[facility]ATORYCLIA [id number] [place] [address] [place] Potassium [Moles/Vol] 4.0 mmol/L Normal 3.7-5.1 [facility] Comment on above: Order Comment: Speci men Type: BLOOD SPECIMENOrdering Facility: [facility] Address: [address] [place] [address] Performed By: #### 2 4321-2, , 2776-11 ####[facility]ORATORYCLIA [id number] [place] [address] [place] Sodium [Moles/Vol] 136 mmol/L Normal 136-144 [facility] Comment on above: Order Comment: Speci men Type: BLOOD SPECIMENOrdering Facility: [facility] Address: [address] [place] [address] Performed By: #### 2 4321-2, , 2776-11 ####[facility]ORATORYCLIA [id number] [address] STATES [facility] Urea nitrogen [Mass/Vol] 20 mg/dL Normal 9-24 [facility] Comment on above: Order Comment: Speci men Type: BLOOD SPECIMENOrdering Facility: [facility] Address: [address] [place] [address] Performed By: #### 2 4321-2, , 2776-11 ####[facility]ORATORYCLIA [id number] [address] [place] CBC panel Auto (Bld)on 04-18 Erythrocyte distribution width (RBC) [Ratio] 12.1 % Normal 11.5-15.0 [facility] Comment on above: Order Comment: Speci men Type: BLOOD SPECIMENOrdering Facility: [facility] Address: [address] [place] [address] Performed By: #### 5 8410-2 ####[facility]ORATORYCLIA [id number] [address] Hematocrit (Bld) [Volume fraction] 30.5 % Low 39.0-51.0 [facility] Comment on above: Order Comment: Speci men Type: BLOOD SPECIMENOrdering Facility: [facility] Address: [address] [place] [address] Performed By: #### 5 8410-2 ####[facility] LABORATORYCLIA [id number] [address] STATES OF [facility] Hemoglobin (Bld) [Mass/Vol] 10.3 g/dL Low 13.0-17.0 [facility] Comment on above: Order Comment: Speci men Type: BLOOD SPECIMENOrdering Facility: [facility] Address: [address] [place] [address] Performed By: #### 5 8410-2 ####[facility]ORATORYCLIA [id number] [address] STATES OF [facility] MCH (RBC) [Entitic mass] 34.7 pg High 26.0-34.0 [facility] Comment on above: Order Comment: Speci men Type: BLOOD SPECIMENOrdering Facility: [facility] Address: [address] [place] [address] Performed By: #### 5 8410-2 ####[facility]ORATORYCLIA [id number] [address] [place] MCHC (RBC) [Mass/Vol] 33.8 g/dL Normal 30.5-36.0 [facility] Comment on above: Order Comment: Speci men Type: BLOOD SPECIMENOrdering Facility: [facility] Address: [address] [place] [address] Performed By: #### 5 8410-2 ####[facility]ORATORYCLIA [id number] [address] MCV (RBC) [Entitic vol] 102.7 fL High 80.0-100.0 [facility] Comment on above: Order Comment: Speci men Type: BLOOD SPECIMENOrdering Facility: [facility] Address: [address] [place] [address] Performed By: #### 5 8410-2 ####[facility]ORATORYCLIA [id number] [address] [place] Nucleated RBC (Bld) [#/Vol] 10*3/uL Normal <0.01 [facility] Comment on above: Order Comment: Speci men Type: BLOOD SPECIMENOrdering Facility: [facility] Address: [address] [place] [address] Performed By: #### 5 8410-2 ####[facility]ORATORYCLIA [id number] [address] [place] Platelet mean volume (Bld) [Entitic vol] 10.5 fL Normal 9.0-12.7 [facility] Comment on above: Order Comment: Speci men Type: BLOOD SPECIMENOrdering Facility: [facility] Address: [address] [place] [address] Performed By: #### 5 8410-2 ####[facility]ORATORYCLIA [id number] [address] [place] Platelets (Bld) [#/Vol] 154 10*3/uL Normal 150-400 [facility] Comment on above: Order Comment: Speci men Type: BLOOD SPECIMENOrdering Facility: [facility] Address: [address] [place] [address] Performed By: #### 5 8410-2 ####[facility]ORATORYCLIA [id number] [place] [address] [place] RBC (Bld) [#/Vol] 2.97 10*6/uL Low 4.20-6.00 [facility] Comment on above: Order Comment: Speci men Type: BLOOD SPECIMENOrdering Facility: [facility] Address: [address] [place] [address] Performed By: #### 5 8410-2 ####[facility]ATORYCLIA [id number] [address] [place] WBC (Bld) [#/Vol] 7.75 10*3/uL Normal 3.70-11.00 [facility] Comment on above: Order Comment: Speci men Type: BLOOD SPECIMENOrdering Facility: [facility] Address: [address] [place] [address] Performed By: #### 5 8410-2 ####[facility]ORATORYCLIA [id number] [place] [id number] [facility] Magnesium [facility] 04-18 Magnesium [Mass/Vol] 2.0 mg/dL Normal 1.7-2.3 [facility] Comment on above: Order Comment: Speci men Type: BLOOD SPECIMENOrdering Facility: [facility] Address: [address] [place] [address] Performed By: #### 2 4321-2, 42531-4, 2777-1 ####[facility]ORATORYCLIA [id number] [address] Phosphate SerPl-nc 04-18 Phosphate [Mass/Vol] 2.8 mg/dL Normal 2.7-4.8 [facility] Comment on above: Order Comment: Speci men Type: BLOOD SPECIMENOrdering Facility: [facility] Address: [address] [place] [address] Performed By: #### 2 4321-2, , 2777-1 ####[facility] ERCLIA [id number] [address] [place] ALLIED HEALTHon 04-17-2024 ALLIED HEALTH HNO ID: [id number] Author: RINA GÓMEZ RT(Jason) Service: Radiology Author Type: Technologist Type: Allied Health Filed: 04/17/2024 12:20 Note Text: Radiology Service Progress Note PATIENT NAME: Jonathon Perales DATE OF SERVICE: April 17, 2024 TIME: 12:12 PM PATIENT IDENTITY VERIFICATION COMPLETED USING TWO (2) IDENTIFIERS: Name and Date of confirmed by identification band. FALL SCREENING: Has the patient had 2 falls in the last year or 1 fall with injury or currently using an Ambulatory Assistive Device (Walker, Cane, Wheelchair, Crutches, etc.)? Inpatient: Screened on floor PATIENT GENDER DATA: Male PATIENT RELEVANT IMPLANT DATA REVIEWED: Not Applicable PATIENT PRESENTS WITH AN IMPLANTABLE OR ATTACHED INTERVIEWING CLERK: No RADIOLOGY DEPARTMENT: MR; Exam(s) Completed: Head: Routine Brain PERIPHERAL IV DATA: Not applicable SIGNED BY: RT Sara(R) April 17, 2024 12:12 PM Normal [facility] Basic metabolic 2000 panelon 04-17-2024 Anion gap [Moles/Vol] 10 mmol/L Normal 9-18 [facility] Comment on above: Order Comment: Speci men Type: BLOOD SPECIMENOrdering Facility: [facility] Address: [address] [place] [address] Performed By: #### 2 4321-2, , 2776-11 ####[facility]ORATORYCLIA [id number] [place] [address] [place] Calcium [Mass/Vol] 8.4 mg/dL Low 8.5-10.2 [facility] Comment on above: Order Comment: Speci men Type: BLOOD SPECIMENOrdering Facility: [facility] Address: [address] [place] [address] Performed By: #### 2 4321-2, , 2776-11 ####[facility]ORATORYCLIA [id number] [place] [address] [place] Chloride [Moles/Vol] 111 mmol/L High 97-105 [facility] Comment on above: Order Comment: Speci men Type: BLOOD SPECIMENOrdering Facility: [facility] Address: [address] [place] [address] Performed By: #### 2 4321-2, , 2776-11 ####[facility]ATORYCLIA [id number] [place] [address] [place] CO2 [Moles/Vol] 21 mmol/L Low 22-30 [facility] Comment on above: Order Comment: Speci men Type: BLOOD SPECIMENOrdering Facility: [facility] Address: [address] [place] [address] Performed By: #### 2 4321-2, , 2776- ####[facility]CL[facility] [id number] [place] [address] [place] [facility] Creatinine [Mass/Vol] 1.14 mg/dL Normal 0.73-1.22 [facility] Comment on above: Order Comment: Lyndsey eller Type: BLOOD SPECIMENOrdering Facility: [facility] Address: [address] [place] [address] Performed By: #### 2 4321-2, , 2776-11 ####[facility]PITALIA [id number] [place] [id number] [facility] Creatinine and Glomerular filtration rate.predicted panel (S/P/Bld) 67 mL/min/1.73m??? Normal >=60 [facility] Comment on above: Order Comment: Lyndsey eller Type: BLOOD SPECIMENOrdering Facility: [facility] Address: [address] [place] [address] Result Comment: Bianca mated Glomerular Filtration Rate (eGFR) is calculated using the 2020 CKD-EPI creatinine equation. This equation utilizes serum creatinine, sex, and age as parameters. The creatinine assay has traceable calibration to isotope dilution-mass spectrometry. Refer to KDIGO guidelines for clinical interpretation. In patients with unstable renal function, e.g. those with acute kidney injury, the eGFR may not accurately reflect actual GFR. Performed By: #### 2 4321-2, , 2776-11 ####[facility] LABORATORYIA [id number] [place] [id number] [place] [facility] Glucose [Mass/Vol] 98 mg/dL Normal 74-99 [facility] Comment on above: Order Comment: Lyndsey eller Type: BLOOD SPECIMENOrdering Facility: [facility] Address: [address] [place] [address] Result Comment: The [place] Diabetes Association (ADA) provides guidance for cutoff values for fasting glucose and random glucose. The ADA defines fasting as no caloric intake for at least 8 hours. Fasting plasma glucose results between 100 to 125 mg/dL indicate increased risk for diabetes (prediabetes). Fasting plasma glucose results greater than or equal to 126 mg/dL meet the criteria for diagnosis of diabetes. In the absence of unequivocal hyperglycemia, results should be confirmed by repeat testing. In a patient with classic symptoms of hyperglycemia or hyperglycemic crisis, random plasma glucose results greater than or equal to 200 mg/dL meet the criteria for diagnosis of diabetes. Reference: Standards of Medical Care in Diabetes 2016, [place] [employer]. Diabetes Care. 2016.39(Suppl 1). Performed By: #### 2 4321-2, , 2776-11 ####[facility]ORATORYCLIA [id number] [place] [address] [place] Potassium [Moles/Vol] 3.7 mmol/L Normal 3.7-5.1 [facility] Comment on above: Order Comment: Speci men Type: BLOOD SPECIMENOrdering Facility: [facility] Address: [address] [place] [address] Performed By: #### 2 4321-2, , 2776-11 ####[facility]ORATORYCLIA [id number] [address] STATES OF [facility] Sodium [Moles/Vol] 142 mmol/L Normal 136-144 [facility] Comment on above: Order Comment: Speci men Type: BLOOD SPECIMENOrdering Facility: [facility] Address: [address] [place] [address] Performed By: #### 2 4321-2, , 2776-11 ####[facility]ORATORYCLIA [id number] [address] [place] Urea nitrogen [Mass/Vol] 26 mg/dL High 9-24 [facility] Comment on above: Order Comment: Speci men Type: BLOOD SPECIMENOrdering Facility: [facility] Address: [address] [place] [address] Performed By: #### 2 4321-2, , 2776-11 ####[facility]ORATORYCLIA [id number] [address] [place] CBC panel Auto (Bld)on 04-17 Erythrocyte distribution width (RBC) [Ratio] 13.0 % Normal 11.5-15.0 [facility] Comment on above: Order Comment: Speci men Type: BLOOD SPECIMENOrdering Facility: [facility] Address: [address] [place] [address] Performed By: #### 5 8410-2 ####[facility]ORATORYCLIA [id number] [address] Hematocrit (Bld) [Volume fraction] 31.9 % Low 39.0-51.0 [facility] Comment on above: Order Comment: Speci men Type: BLOOD SPECIMENOrdering Facility: [facility] Address: [address] [place] [address] Performed By: #### 5 8410-2 ####[facility]ORATORYCLIA [id number] [address] OF [facility] Hemoglobin (Bld) [Mass/Vol] 10.3 g/dL Low 13.0-17.0 [facility] Comment on above: Order Comment: Speci men Type: BLOOD SPECIMENOrdering Facility: [facility] Address: [address] [place] [address] Performed By: #### 5 8410-2 ####[facility]ORATORYCLIA [id number] [address] MCH (RBC) [Entitic mass] 34.9 pg High 26.0-34.0 [facility] Comment on above: Order Comment: Speci men Type: BLOOD SPECIMENOrdering Facility: [facility] Address: [address] [place] [address] Performed By: #### 5 8410-2 ####[facility] LABORATORYCLIA [id number] [address] [place] MCHC (RBC) [Mass/Vol] 32.3 g/dL Normal 30.5-36.0 [facility] Comment on above: Order Comment: Speci men Type: BLOOD SPECIMENOrdering Facility: [facility] Address: [address] [place] [address] Performed By: #### 5 8410-2 ####[facility] LABORATORYCLIA [id number] [place] [address] [place] MCV (RBC) [Entitic vol] 108.1 fL High 80.0-100.0 [facility] Comment on above: Order Comment: Speci men Type: BLOOD SPECIMENOrdering Facility: [facility] Address: [address] [place] [address] Performed By: #### 5 8410-2 ####[facility]ATORYCLIA [id number] [address] [place] Nucleated RBC (Bld) [#/Vol] 10*3/uL Normal <0.01 [facility] Comment on above: Order Comment: Speci men Type: BLOOD SPECIMENOrdering Facility: [facility] Address: [address] [place] [address] Performed By: #### 5 8410-2 ####[facility]ATORYCLIA [id number] [address] [place] Platelet mean volume (Bld) [Entitic vol] 10.3 fL Normal 9.0-12.7 [facility] Comment on above: Order Comment: Speci men Type: BLOOD SPECIMENOrdering Facility: [facility] Address: [address] [place] [address] Performed By: #### 5 8410-2 ####[facility]ORATORYCLIA [id number] [address] [place] Platelets (Bld) [#/Vol] 157 10*3/uL Normal 150-400 [facility] Comment on above: Order Comment: Speci men Type: BLOOD SPECIMENOrdering Facility: [facility] Address: [address] [place] [address] Performed By: #### 5 8410-2 ####[facility]ORATORYCLIA [id number] [address] [place] RBC (Bld) [#/Vol] 2.95 10*6/uL Low 4.20-6.00 [facility] Comment on above: Order Comment: Speci men Type: BLOOD SPECIMENOrdering Facility: [facility] Address: [address] [place] [address] Performed By: #### 5 8410-2 ####[facility]ATORYCLIA [id number] [place] [address] [place] WBC (Bld) [#/Vol] 8.05 10*3/uL Normal 3.70-11.00 [facility] Comment on above: Order Comment: Speci men Type: BLOOD SPECIMENOrdering Facility: [facility] Address: [facility] [place] [address] Performed By: #### 5 8410-2 ####[facility] LABORATORYCLIA [id number] [place] [address] [facility] CT BRAIN WO IVCONon 04-17-20 CT BRAIN WO IVCON * * *Final Report* * * DATE OF EXAM: Apr 17 2024 10:18PM [facility] 0504 - CT BRAIN WO IVCON / PROCEDURE REASON: Stroke, follow up * * * * Physician Interpretation * * * * EXAMINATION: CT BRAIN WO IVCON CLINICAL HISTORY: Right MCA stroke. TECHNIQUE: Serial axial images without IV contrast were obtained from the vertex to the foramen magnum. MQ: CTBWO_3 CT Radiation dose: Integrated Dose-Length Product (DLP) for this visit = 823 mGy*cm CT Dose Reduction Employed: Iterative recon COMPARISON: MRI brain 04/17/2024, CT brain 04/16/2024 RESULT: Localizer images: No additional findings. Post-operative change: None. Acute change: Continued maturation of the right MCA territory infarct, now demonstrating progressive hypoattenuation within the infarct core. Hemorrhage: Scattered faint punctate densities within some portions of the right MCA infarct territory correlate with petechial hemorrhage seen on the immediate prior MRI. No expansile hemorrhage. ECASS hemorrhagic transformation score: Not Applicable Mass Lesion / Mass Effect: There is no evidence of an intracranial mass or extraaxial fluid collection. No significant mass effect. Chronic change: Multiple chronic infarcts involving the left cerebral hemisphere as well as the cerebellum redemonstrated. Parenchyma: There is mild generalized volume loss. Ventricles: Ventricular caliber is unchanged. Paranasal sinuses and skull base: The visualized paranasal sinuses are grossly clear. The skull base and imaged soft tissues are unremarkable. IMPRESSION: 1. Continued maturation of the right MCA territory infarct, with faint punctate densities in some portions of the infarct core that correlate with petechial hemorrhage seen on the immediate prior MRI. No significant mass effect. Inspector Tester Sorter: MILTON Transcribe Date/Time: Apr 18 2024 12:23A Dictated by : LILLI GUSTAFSON MD This examination was interpreted and the report reviewed and electronically signed by: LILLI GUSTAFSON MD on Apr 18 2024 12:29AM EST [id number] Normal [facility] MRI BRAIN WO IVCONon 024 MRI BRAIN WO IVCON * * *Final Report* * * DATE OF EXAM: Apr 17 2024 12:41PM [facility] 0294 - MRI BRAIN WO IVCON / PROCEDURE REASON: Stroke, follow up * * * * Physician Interpretation * * * * EXAMINATION: MRI BRAIN WO IVCON CLINICAL HISTORY: Stroke, follow up TECHNIQUE: Routine noncontrast MRI protocol including diffusion images. MQ: MRBWO_2 COMPARISON: CT head 04/16/2024 RESULT: Acute Change: There is mild confluent cortical restricted diffusion and ADC hypodensity in the right lateral frontal, parietal and temporal lobes, compatible with early subacute right MCA territory infarct. Hemorrhage: Scattered petechial hemorrhage in the right insular and parietal infarction. Mass Lesion/ Mass Effect: No evidence of an intracranial mass or extra-axial fluid collection. Mass effect with sulcal effacement. No midline shift. Chronic Change: Scattered patchy areas of increased T2 and FLAIR signal are present in the supratentorial white matter which is a nonspecific finding but likely represents mild chronic microvascular ischemia. Chronic left anterior frontal infarct and left parietal infarct. Small chronic left cerebellar infarct. Parenchyma: There is moderate generalized parenchymal volume loss. The brain parenchyma is otherwise within normal limits of signal intensity and morphology. Ventricles: Ventriculomegaly corresponds to the degree of parenchymal volume loss. Skull Base: Hypothalamic and pituitary region are grossly normal. Craniocervical junction is normal. No significant marrow replacement process. Vasculature: Major intracranial arterial structures, and dural venous sinuses show typical flow void, suggesting patency by spin echo criteria. Other: The visualized paranasal sinuses and mastoid air cells are clear. The orbits and extracranial soft tissues are unremarkable. IMPRESSION: Confluent subacute infarct in the right MCA territory. Confluent petechial hemorrhage. No space-occupying hematoma. Localized mass effect. Inspector Tester Sorter: PSCB Transcribe Date/Time: Apr 17 2024 1:00P Dictated by : EVELIO GEORGE MD This examination was interpreted and the report reviewed and electronically signed by: EVELIO GEORGE MD on Apr 17 2024 1:05PM EST [id number] [facility] Magnesium SerPl-mCncon 04-17 Magnesium [Mass/Vol] 2.1 mg/dL Normal 1.7-2.3 [facility] Comment on above: Order Comment: Speci men Type: BLOOD SPECIMENOrdering Facility: [facility] Address: [address] [place] [address] Performed By: #### 2 4321-2, 81786-0, 2777-1 ####[facility]ATORYCLIA [id number] [address] NUTRITIONon 04-17-2024 NUTRITION HNO ID: [id number] Author: DON DICKSON RD Service: Nutrition Therapy Author Type: Registered Dietitian Type: Nutrition Filed: 04/17/2024 11:40 Note Text: NUTRITION BRIEF NOTE SERVICE DATE: 04/17/2024 Care Plan: No changes to EN recommendations. Enteral Nutrition Tube Feeding Formula Type: Isosource 1.5 Goal Rate (mL/hr x hours): 50 ml/hr x 24 hours (1.2 L--1800 lashawn, 82 gm pro, 917 ml free water) Water Flush Volume (mL x frequency: 30 ml q4h Modular: ProSouce NoCarb Neutral (x1) Recommended Enteral Access: Oral;Gastric Monitor and Evaluation: Meet greater than 75% of estimated needs, Monitor bowel function, Monitor labs, I/Os, vital signs, weight, Monitor tolerance to tube feeding Interval History: Pt remains intubated. Per nurse, TF on hold for SBT. No family at bedside to collect nutrition/weight history. Daughter unavailable at this time by phone. Unable to diagnose malnutrition at this time. RD will continue to follow. MNT Billing: $ Routine Care : 1-15 minutes SIGNATURE: Don Dickson RD DATE: 04/17/2024 TIME: 11:37 AM [facility] Phosphate SerPl-mCncon 04-17 Phosphate [Mass/Vol] 2.6 mg/dL Low 2.7-4.8 [facility] Comment on above: Order Comment: Speci men Type: BLOOD SPECIMENOrdering Facility: [facility] Address: [address] [id number] Performed By: #### 2 4321-2, 15099-9, 2777-1 ####[facility] LABORATORYCLIA [id number] [place] [address] [facility] THERAPY NTon 04-17-2024 THERAPY NT HNO ID: [id number] Author: KATHRIN JEWELL, FISHER SCALLOP Service: Respiratory Therapy Author Type: Registered Resp Therapist Type: Therapy (PT/OT/Speech/Resp) Filed: 04/17/2024 09:46 Note Text: 04/17/24 0730 Daily Spontaneous Breathing Trial (SBT) Per nursing, SAT passed Yes ALL Criteria Met for Successful Wean Screen $Yes, SBT performed per RT protocol Time SBT Started 0730 Time SBT Stopped 0945 SBT Total Time (minutes) 135 Passed Spontaneous Breathing Trial Y Extubated After Successful SBT (pt has MRI scheduled for 11:45. Will stay intubated for procedure) [facility] US CAROTID RTon 04-17-2024 US CAROTID RT * * *Final Report* * * * * * SEE BOTTOM OF REPORT FOR ADDENDED TEXT * * * DATE OF EXAM: Apr 17 2024 4:02PM A2U 1099 - US CAROTID RT / PROCEDURE REASON: s/p stent * * * * Physician Interpretation * * * * Non-Invasive Vascular Laboratory [facility] Carotid Duplex Bilateral/Complete Date of service/time: 04/17/2024 3:46:46 PM [facility] Name: JONATHON PERALES Date of : 1950 Age: 73 years Gender: M Medical History Tobacco: No Stroke: Yes Carotid artery disease: Yes Hypertension: Yes Clinical Indication Status post carotid stent and cerebrovascular accident. TECHNIQUE -------- A carotid duplex ultrasound examination was performed, including grayscale imaging and color Doppler and spectral Doppler examination of the below mentioned arteries. FINDINGS -------- RIGHT SIDE Common carotid artery: Proximal: PSV: 62 cm/s. EDV: 19 cm/s. Mid: PSV: 127 cm/s. EDV: 47 cm/s. Distal: PSV: 175 cm/s. EDV: 76 cm/s. Internal carotid artery: Origin: PSV: 281 cm/s. EDV: 133 cm/s. Proximal: PSV: 318 cm/s. EDV: 118 cm/s. Mid: PSV: 449 cm/s. EDV: 155 cm/s. Distal: PSV: 231 cm/s. EDV: 61 cm/s. ICA/CCA Ratio: 2.6 External carotid artery: Mid: PSV: 152 cm/s. EDV: 62 cm/s. Vertebral artery: Mid: PSV: 89 cm/s. EDV: 18 cm/s. IMPRESSION Technically difficult exam due to patient movement, inability to cooperate, patient positioning. 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 RIGHT SIDE Common carotid artery: Patent with stent. Internal carotid artery stent: Patent, mildly elevated velocities within the stent is evidence of less than 70% restenosis. Elevated velocities noted in the distal end of the stent however stent appear patent with no intraluminal filling defects. Highest velocities > 300 are is little traverse ICA distal to the stent. External carotid artery: Patent. Vertebral artery: Patent and antegrade flow noted. LEFT SIDE Common carotid artery: Patent With stent. Technologist: Lolis Mead RVT Ordering physician: JOANIE LARSON Interpreting physician: Corbin Hayes DO * * * Final (Updated) * * * RP Inspector Tester Sorter: GURJIT Transcribenton Date/Time: Apr 17 2024 3:46P Dictated by : CORBIN HAYES DO This examination was interpreted and the report reviewed and electronically signed by: CORBIN HAYES DO on Apr 18 2024 4:11PM EST This document has been addended by: CORBIN HAYES DO on Apr 19 2024 3:28PM EST [id number] [facility] ALLIED HEALTHon 04-16-2024 ALLIED HEALTH HNO ID: [id number] Author: ELLYN SANCHEZ RT(Jason) Service: Radiology Author Type: Technologist Type: Allied Health Filed: 04/16/2024 13:17 Note Text: Radiology Service Progress Note PATIENT NAME: Jonathon Perales DATE OF SERVICE: April 16, 2024 TIME: 1:17 PM PATIENT IDENTITY VERIFICATION COMPLETED USING TWO (2) IDENTIFIERS: Name and Date of confirmed by identification band. FALL SCREENING: Has the patient had 2 falls in the last year or 1 fall with injury or currently using an Ambulatory Assistive Device (Walker, Cane, Wheelchair, Crutches, etc.)? Inpatient: Screened on floor PATIENT GENDER DATA: Male PATIENT RELEVANT IMPLANT DATA REVIEWED: Not Applicable PATIENT PRESENTS WITH AN IMPLANTABLE OR ATTACHED INTERVIEWING CLERK: No RADIOLOGY DEPARTMENT: General X-ray: Exam(s) Completed: Abdomen X-Ray: Abdomen PERIPHERAL IV DATA: Not applicable SIGNED BY: RT Aimee(R) April 16, 2024 1:17 PM [facility] ANES POSTPROC EVALon 024 ANES POSTPROC EVAL HNO ID: [id number] Author: FAHAD VILLEDA MD Service: Anesthesiology Author Type: Anesthesiologist Type: Anesthesia Postprocedure Evaluation Filed: 04/16/2024 00:30 Note Text: POST ANESTHESIA EVALUATION NOTE : 1950 Procedure Summary Date: 04/15/24 Room / Location: [facility] IR / [facility] [place] Anesthesia Start: 2240 Anesthesia Stop: Procedure: PERC ARTERIAL TRANSLUMINAL MECHANICAL THROMBECTOMY AND/OR INFUSION FOR THROMBOLYSIS, INTRACRANIAL, ANY METHOD INCL DIAG ANGIOGRAPHY, FLOURO GUIDANCE,CATH PLACEMENT/ INTRAPROC PHARM THROMBOLYTIC INJ Diagnosis: Ischemic stroke (HCC) (Ischemic stroke (HCC) [I63.9]) Surgeons: Ramirez Cantor MD Responsible Provider: Fahad Villeda MD Anesthesia Type: general ASA Status: 5 - Emergent Anesthesia Type: general Airway Type: ETT Last Vitals Vitals Value Taken Time BP 111/59 04/16/24 0020 Temp 36.4 ?C (97.6 ?F) 04/15/24 2136 Pulse 52 04/16/24 0022 Resp 26 04/15/24 2229 SpO2 100 % 04/16/24 0022 Vitals shown include unfiled device data. Post Anesthesia Patient Status Patient Evaluation: ICU. PACU/ICU Patient Condition: stable. Anticipated Disposition: ICU planned admission. Neurological Status: sedated. Pulmonary Status: on mechanical ventilation (invasive ventilation) Airway Control: intubated on mechanical ventilation. Cardiovascular Status: stable. Pain Management: clinically adequate - multimodal analgesia pain management approach Postoperative Hydration: acceptable. Intraoperative Events: no significant anesthesia events Recommendation: continue current plan of care and further care per PACU/ICU/floor team. Anesthesia Observations No Documentation SIGNATURE: Fahad Villeda MD PATIENT NAME: Jonathon Perales DATE: April 16, 2024 TIME: 12:30 AM CSN: [id number] [facility] ASPIRIN/CLOPIDOGREL RESISTAN CEon 04-16-2024 Platelet aggregation ADP induced High dose (PRP) [Rel units/Vol] 2 % Max Low 65-93 [facility] Comment on above: Order Comment: Lyndsey eller Type: BLOOD SPECIMENOrdering Facility: [facility] Address: [address] [place] [address] Performed By: #### A SPC ####[facility] [id number] [place] [address] [place] Platelet aggregation arachidonate induced 500 ug/mL (PRP) [Rel units/Vol] 1 % Max Low 75-100 [facility] Comment on above: Order Comment: Lyndsey eller Type: BLOOD SPECIMENOrdering Facility: [facility] Address: [address] [place] [address] Performed By: #### A SPCLP ####[facility] [id number] [place] [address] [place] BRIEF OP NOTon 04-16-2024 BRIEF OP NOT HNO ID: [id number] Author: RAMIREZ CANTOR MD Service: Neuroendovascular Intervention Author Type: Physician Type: Brief Op Note Filed: 04/16/2024 00:22 Note Text: BRIEF OP/PROCEDURE NOTE NEURO INTERVENTIONAL PROCEDURE DATE: April 16, 2024 LOG ID: [id number] Surgery/Procedure Date: 04/15/2024 Incision/Procedure Start Time: 10:51 PM Incision Close/Procedure End Time: 0010 on 04/16. Anesthesia: General PRIMARY PROCEDURALIST: Ramirez Cantor M.D. CUSTOMS COMPLIANCE ANALYST(S): None. CASE STATUS: Inpatient/Emergent PROCEDURE: Arterial Access Date: 04/15/24 Arterial Access Time : 2250 First Pass (Device) Date: 04/15/24 First Pass (Device) Time: 2300 TICI Date: 04/15/24 TICI Time: 2310 TICI: (3) Antegrade complete perfusion of the downstream ischemic territory Factors impacting time of Endovascular Therapy initiation: Care-team unable to determine eligibility, Indications: Right ICA- MCA occlusion. Access Site: Right common femoral artery. PRE-PROCEDURE DIAGNOSIS: Right ICA-MCA occlusion. POST-PROCEDURE DIAGNOSIS: Same. FINDINGS: - Right common carotid artery distal occlusion. - Right internal carotid artery occlusion and tandem right MCA occlusion. - Status post successful mechanical thrombectomy TICI III x 1 pass with ET-3. - Status post successful balloon angioplasty and stenting of the right ICA-CCA. ESTIMATED BLOOD LOSS: 100 ml COMPLICATIONS: None RADIATION DOSE: Exceeded 5 Gy - No SPECIMENS: Not Applicable PLAN: - SBP goal 90-140 mmHg. - SaO2 monitor from the right toe. - Flat as long as Aggrastat (Tirofiban) ggt running. - Aggrastat ggt at 0.1 mcg/kg/min continuous. - CT brain without contrast dual energy at 6 am. - Aspirin and plavix in am and aggrastat ggt to be turned off 4 hours after aspirin and plavix. - Right sided carotid duplex 04/16. Ramirez Cantor MD. Neuro Interventional Surgery April 16, 2024 [facility] Basic metabolic 2000 panelon 04-16-2024 Anion gap [Moles/Vol] 6 mmol/L Low 9-18 [facility] Comment on above: Order Comment: Speci men Type: BLOOD SPECIMENOrdering Facility: [facility] Address: [address] [place], [place] [address] Performed By: #### 2 4321-2, 68249-2, 2777-1, 54101-3 ####[facility]ORATORYCLIA [id number] [place] [address] [place] Calcium [Mass/Vol] 7.8 mg/dL Low 8.5-10.2 [facility] Comment on above: Order Comment: Speci men Type: BLOOD SPECIMENOrdering Facility: [facility] Address: [address] [place] [address] Performed By: #### 2 4321-2, 45114-8, 2776-1, 37347-8 ####[facility]ORATORYCLIA [id number] [place] [address] [place] Chloride [Moles/Vol] 112 mmol/L High 97-105 [facility] Comment on above: Order Comment: Speci men Type: BLOOD SPECIMENOrdering Facility: [facility] Address: [address] [place] [address] Performed By: #### 2 4321-2, 54787-7, 2776-, 68458-8 ####[facility]ORATORYCLIA [id number] [place] [address] [place] CO2 [Moles/Vol] 19 mmol/L Low 22-30 [facility] Comment on above: Order Comment: Speci men Type: BLOOD SPECIMENOrdering Facility: [facility] Address: [address] [place] [address] Performed By: #### 2 4321-2, 68843-1, 2776-1, 99277-9 ####[facility]ORATORYCLIA [id number] [place] [address] [place] Creatinine [Mass/Vol] 1.42 mg/dL High 0.73-1.22 [facility] Comment on above: Order Comment: Speci men Type: BLOOD SPECIMENOrdering Facility: [facility] Address: [address] [place] [address] Performed By: #### 2 4321-2, 48547-4, 2776-1, 11199-3 ####[facility]ORATORYCLIA [id number] [place] [address] [place] Creatinine and Glomerular filtration rate.predicted panel (S/P/Bld) 52 mL/min/1.73m??? Low >=60 [facility] Comment on above: Order Comment: Lyndsey eller Type: BLOOD SPECIMENOrdering Facility: [facility] Address: [address] [place] [address] Result Comment: Bianca mated Glomerular Filtration Rate (eGFR) is calculated using the 2020 CKD-EPI creatinine equation. This equation utilizes serum creatinine, sex, and age as parameters. The creatinine assay has traceable calibration to isotope dilution-mass spectrometry. Refer to KDIGO guidelines for clinical interpretation. In patients with unstable renal function, e.g. those with acute kidney injury, the eGFR may not accurately reflect actual GFR. Performed By: #### 2 4321-2, 15303-8, 2777-, 07371-6 ####[facility]ORATORYCLIA [id number] [place] [address] [place] Glucose [Mass/Vol] 106 mg/dL High 74-99 [facility] Comment on above: Order Comment: Lyndsey eller Type: BLOOD SPECIMENOrdering Facility: [facility] Address: [address] [place] [address] Result Comment: The [place] Diabetes [employer] (ADA) provides guidance for cutoff values for fasting glucose and random glucose. The ADA defines fasting as no caloric intake for at least 8 hours. Fasting plasma glucose results between 100 to 125 mg/dL indicate increased risk for diabetes (prediabetes). Fasting plasma glucose results greater than or equal to 126 mg/dL meet the criteria for diagnosis of diabetes. In the absence of unequivocal hyperglycemia, results should be confirmed by repeat testing. In a patient with classic symptoms of hyperglycemia or hyperglycemic crisis, random plasma glucose results greater than or equal to 200 mg/dL meet the criteria for diagnosis of diabetes. Reference: Standards of Medical Care in Diabetes 2016, [place] [employer] Association. Diabetes Care. 2016.39(Suppl 1). Performed By: #### 2 4321-2, 55983-3, 2777-, 90410-4 ####[facility]ORATORYCLIA [id number] [place] [address] [place] Potassium [Moles/Vol] 4.7 mmol/L Normal 3.7-5.1 [facility] Comment on above: Order Comment: Speci men Type: BLOOD SPECIMENOrdering Facility: [facility] Address: [address] [place] [address] Performed By: #### 2 4321-2, , 2776-11, 85534-6 ####[facility]ORATORYCLIA [id number] [address] STATES OF [facility] Sodium [Moles/Vol] 137 mmol/L Normal 136-144 [facility] Comment on above: Order Comment: Speci men Type: BLOOD SPECIMENOrdering Facility: [facility] Address: [address] [place] [address] Performed By: #### 2 4321-2, , 2776-11, 43509-8 ####[facility]ORATORYCLIA [id number] [address] [place] Urea nitrogen [Mass/Vol] 36 mg/dL High 9-24 [facility] Comment on above: Order Comment: Speci men Type: BLOOD SPECIMENOrdering Facility: [facility] Address: [address] [place] [address] Performed By: #### 2 4321-2, , 2776-11, 42709-3 ####[facility] LABORATORYCLIA [id number] [address] STATES OF [facility] CBC panel Auto (Bld)on 04-16 Erythrocyte distribution width (RBC) [Ratio] 12.9 % Normal 11.5-15.0 [facility] Comment on above: Order Comment: Speci men Type: BLOOD SPECIMENOrdering Facility: [facility] Address: [address] [place] [address] Performed By: #### 5 8410-2 ####[facility] LABORATORYCLIA [id number] [address] Hematocrit (Bld) [Volume fraction] 32.7 % Low 39.0-51.0 [facility] Comment on above: Order Comment: Speci men Type: BLOOD SPECIMENOrdering Facility: [facility] Address: [address] [place] [address] Performed By: #### 5 8410-2 ####[facility]ORATORYCLIA [id number] [address] OF [facility] Hemoglobin (Bld) [Mass/Vol] 10.9 g/dL Low 13.0-17.0 [facility] Comment on above: Order Comment: Speci men Type: BLOOD SPECIMENOrdering Facility: [facility] Address: [address] [place] [address] Performed By: #### 5 8410-2 ####[facility]ORATORYCLIA [id number] [address] STATES OF [facility] MCH (RBC) [Entitic mass] 35.2 pg High 26.0-34.0 [facility] Comment on above: Order Comment: Speci men Type: BLOOD SPECIMENOrdering Facility: [facility] Address: [address] [place] [address] Performed By: #### 5 8410-2 ####[facility] LABORATORYCLIA [id number] [address] MCHC (RBC) [Mass/Vol] 33.3 g/dL Normal 30.5-36.0 [facility] Comment on above: Order Comment: Speci men Type: BLOOD SPECIMENOrdering Facility: [facility] Address: [address] [place] [address] Performed By: #### 5 8410-2 ####[facility]ORATORYCLIA [id number] [address] [place] MCV (RBC) [Entitic vol] 105.5 fL High 80.0-100.0 [facility] Comment on above: Order Comment: Speci men Type: BLOOD SPECIMENOrdering Facility: [facility] Address: [address] [place] [address] Performed By: #### 5 8410-2 ####[facility]ORATORYCLIA [id number] [address] OF [facility] Nucleated RBC (Bld) [#/Vol] 10*3/uL Normal <0.01 [facility] Comment on above: Order Comment: Speci men Type: BLOOD SPECIMENOrdering Facility: [facility] Address: [address] [place] [address] Performed By: #### 5 8410-2 ####[facility]ORATORYCLIA [id number] [address] [place] Platelet mean volume (Bld) [Entitic vol] 10.5 fL Normal 9.0-12.7 [facility] Comment on above: Order Comment: Speci men Type: BLOOD SPECIMENOrdering Facility: [facility] Address: [address] [place] [address] Performed By: #### 5 8410-2 ####[facility]ATORYCLIA [id number] [address] [place] Platelets (Bld) [#/Vol] 196 10*3/uL Normal 150-400 [facility] Comment on above: Order Comment: Speci men Type: BLOOD SPECIMENOrdering Facility: [facility] Address: [address] [place] [address] Performed By: #### 5 8410-2 ####[facility]ATORYCLIA [id number] [place] [address] [place] RBC (Bld) [#/Vol] 3.10 10*6/uL Low 4.20-6.00 [facility] Comment on above: Order Comment: Speci men Type: BLOOD SPECIMENOrdering Facility: [facility] Address: [address] [place] [address] Performed By: #### 5 8410-2 ####[facility]ATORYCLIA [id number] [place] [address] [place] WBC (Bld) [#/Vol] 9.65 10*3/uL Normal 3.70-11.00 [facility] Comment on above: Order Comment: Speci men Type: BLOOD SPECIMENOrdering Facility: [facility] Address: [address] [place] [address] Performed By: #### 5 8410-2 ####[facility]ATORYCLIA [id number] [address] Erythrocyte distribution width (RBC) [Ratio] 12.6 % Normal 11.5-15.0 [facility] Comment on above: Order Comment: Speci men Type: BLOOD SPECIMENOrdering Facility: [facility] Address: [address] [place] [address] Performed By: #### 5 8410-2 ####[facility]ORATORYCLIA [id number] [address] Hematocrit (Bld) [Volume fraction] 33.8 % Low 39.0-51.0 [facility] Comment on above: Order Comment: Speci men Type: BLOOD SPECIMENOrdering Facility: [facility] Address: [address] [place] [address] Performed By: #### 5 8410-2 ####[facility]ATORYCLIA [id number] [address] Hemoglobin (Bld) [Mass/Vol] 11.2 g/dL Low 13.0-17.0 [facility] Comment on above: Order Comment: Speci men Type: BLOOD SPECIMENOrdering Facility: [facility] Address: [address] [place] [address] Performed By: #### 5 8410-2 ####[facility]ORATORYCLIA [id number] [address] [place] [facility] MCH (RBC) [Entitic mass] 35.1 pg High 26.0-34.0 [facility] Comment on above: Order Comment: Speci men Type: BLOOD SPECIMENOrdering Facility: [facility] Address: [address] [place] [address] Performed By: #### 5 8410-2 ####[facility]ATORYCLIA [id number] [address] MCHC (RBC) [Mass/Vol] 33.1 g/dL Normal 30.5-36.0 [facility] Comment on above: Order Comment: Speci men Type: BLOOD SPECIMENOrdering Facility: [facility] Address: [address] [place] [address] Performed By: #### 5 8410-2 ####[facility]ORATORYCLIA [id number] [address] MCV (RBC) [Entitic vol] 106.0 fL High 80.0-100.0 [facility] Comment on above: Order Comment: Speci men Type: BLOOD SPECIMENOrdering Facility: [facility] Address: [address] [place] [address] Performed By: #### 5 8410-2 ####[facility]ORATORYCLIA [id number] [address] OF [facility] Nucleated RBC (Bld) [#/Vol] 10*3/uL Normal <0.01 [facility] Comment on above: Order Comment: Speci men Type: BLOOD SPECIMENOrdering Facility: [facility] Address: [address] [place] [address] Performed By: #### 5 8410-2 ####[facility]ATORYCLIA [id number] [address] Platelet mean volume (Bld) [Entitic vol] 10.3 fL Normal 9.0-12.7 [facility] Comment on above: Order Comment: Speci men Type: BLOOD SPECIMENOrdering Facility: [facility] Address: [address] [place] [address] Performed By: #### 5 8410-2 ####[facility]ORATORYCLIA [id number] [address] Platelets (Bld) [#/Vol] 193 10*3/uL Normal 150-400 [facility] Comment on above: Order Comment: Speci men Type: BLOOD SPECIMENOrdering Facility: [facility] Address: [address] [place] [address] Performed By: #### 5 8410-2 ####[facility] LABORATORYCLIA [id number] [address] [place] RBC (Bld) [#/Vol] 3.19 10*6/uL Low 4.20-6.00 [facility] Comment on above: Order Comment: Speci men Type: BLOOD SPECIMENOrdering Facility: [facility] Address: [address] [place] [id number] Performed By: #### 5 8410-2 ####[facility] LABORATORYCLIA [id number] [address] OF [facility] WBC (Bld) [#/Vol] 12.12 10*3/uL High 3.70-11.00 [facility] Comment on above: Order Comment: Speci men Type: BLOOD SPECIMENOrdering Facility: [facility] Address: [address] [place] [address] Performed By: #### 5 8410-2 ####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 Brought to the ER where iNIHSS of 23 for RMCA syndrome. CTH demonstrated subtle R MCa distribution changes particularly in the insula. 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 He was administered IVT and taken for emergent thrombectomy with TICI 3 recanalization as well as stenting of RCCA. Pre-admission Was patient on antithrombotic agent prior to admission: Antiplatelet Antiplatelet: Aspirin Was patient on lipid lowering agent prior to admission: Other - see comment (zetia) Pre-morbid mRS: Premorbid Modified [place] Score: 2 - Slight disability - unable to carry out all previous activities, but able to look after own affairs without assistance PAST MEDICAL HISTORY Diagnosis Date Anxiety Moses's esophagus CAD (coronary artery disease) CKD (chronic kidney disease) Essential hypertension H/O aortic valve replacement Hyperlipemia LVH (left ventricular hypertrophy) MDD (major depressive disorder) JAIRO (obstructive sleep apnea) Stroke (HCC) No past surgical history on file. No family history on file. ALLERGIES Allergen Reactions Percocet [Oxycodone* Mental Status Change MEDICATION Pre-admission clopidogrel (PLAVIX) 75 mg tablet, Take 1 tablet by mouth once daily., Disp: , Rfl: ezetimibe (ZETIA) 10 mg tablet, Take 10 mg by mouth daily at bedtime., Disp: , Rfl: lisinopril (ZESTRIL) 10 mg tablet, Take 1 tablet by mouth once daily., Disp: , Rfl: loratadine (CLARITIN) 10 mg tablet, Take 1 tablet by mouth once daily., Disp: , Rfl: metoprolol tartrate, short acting, (LOPRESSOR) 25 mg tablet, Take 0.5 tablets by mouth two times a day., Disp: , Rfl: pantoprazole DR (PROTONIX) 40 mg tablet, Take 1 tablet by mouth once daily., Disp: , Rfl: predniSONE (DELTASONE) 50 mg, Take 25 mg by mouth once daily., Disp: , Rfl: venlafaxine (EFFEXOR) 75 mg tablet, Take 75-150 mg by mouth two times a day. 75 mg in morning and 150 mg at bedtime, Disp: , Rfl: aspirin, enteric coated (ASPIRIN, ENTERIC COATED) 81 mg EC tablet, Take 81 mg by mouth once daily., Disp: , Rfl: cyanocobalamin (VITAMIN B-12) 1,000 mcg tab, Take 1,000 mcg by mouth once daily., Disp: , Rfl: cholecalciferol (VITAMIN D-3) 50 mcg (2,000 unit) tablet, Take 2,000 Units by mouth once daily., Disp: , Rfl: Current clopidogrel (PLAVIX) 75 mg tabletTake 1 tablet by mouth once daily.Disp: Rfl: ezetimibe (ZETIA) 10 mg tabletTake 10 mg by mouth daily at bedtime.Disp: Rfl: lisinopril (ZESTRIL) 10 mg tabletTake 1 tablet by mouth once daily.Disp: Rfl: loratadine (CLARITIN) 10 mg tabletTake 1 tablet by mouth once daily.Disp: Rfl: metoprolol tartrate, short acting, (LOPRESSOR) 25 mg tabletTake 0.5 tablets by mouth two times a day.Disp: Rfl: pantoprazole DR (PROTONIX) 40 mg tabletTake 1 tablet by mouth once daily.Disp: Rfl: predniSONE (DELTASONE) 50 mgTake 25 mg by mouth once daily.Disp: Rfl: venlafaxine (EFFEXOR) 75 mg tabletTake 75-150 mg by mouth two times a day. 75 mg in morning and 150 mg at bedtimeDisp: Rfl: aspirin, enteric coated (ASPIRIN, ENTERIC COATED) 81 mg EC tabletTake 81 mg by mouth once daily.Disp: Rfl: cyanocobalamin (VITAMIN B-12) 1,000 mcg tabTake 1,000 mcg by mouth once daily.Disp: Rfl: cholecalciferol (VITAMIN D-3) 50 mcg (2,000 unit) tabletTake 2,000 Units by mouth once daily.Disp: Rfl: REVIEW OF SYSTEMS Unable to obtain Objective PHYSICAL EXAM Vital Signs: BP 100/57 Pulse 76 Temp 36.7 ?C (98 ?F) (Oral) Resp 21 Ht 170.2 cm (5' 7") Wt 68.6 kg (151 lb 3.8 oz) SpO2 99% BMI 23.69 kg/m? NEUROLOGICAL: LOC: 3 - reflex responses or unarousable 3 LOC Questions: 2 - none correct 2 LOC Commands: 2 - neither correct 2 Best Gaze: 0 - normal gaze 0 Visual: 0 - no visual loss 0 Facial Palsy: 0 - normal 0 Motor Left Arm: 4 - no movement at all 4 Motor Right Arm: 4 - no movement at all 4 Motor Left Le - no movement at all 4 Motor Right Le - no movement at all 4 Limb Ataxia: 0 - no ataxia (or aphasic, hemiplegic) 0 Sensory: 2 - total loss, patient unaware of touch. coma, bilateral loss 2 Best Language: 3 - mute, global aphasia, coma 3 Dysarthria: X - intubation or mech barrier X Extinction and Inattention: 0 - normal, none detected (or visual loss alone) 0 Initial NIHSS Score: 28 ( (more content not included)... Normal [facility] CT BRAIN WO IVCONon 05-30-[address] BRAIN WO IVCON * * *Final Report* * * DATE OF EXAM: Apr 16 2024 10:35PM [facility] 0504 - CT BRAIN WO IVCON / PROCEDURE REASON: Stroke, follow up * * * * Physician Interpretation * * * * EXAMINATION: CT BRAIN WO IVCON CLINICAL HISTORY: Right MCA stroke TECHNIQUE: Serial axial images without IV contrast were obtained from the vertex to the foramen magnum. MQ: [id number] CT Radiation dose: Integrated Dose-Length Product (DLP) for this visit = 802 mGy*cm CT Dose Reduction Employed: Iterative recon COMPARISON: CT brain 04/16/2024 performed at 4:21 AM RESULT: Localizer images: No additional findings. Post-operative change: None. Acute change: Redemonstrated evolving acute right MCA territory infarct, with some areas demonstrating progressive hypodensity in comparison to prior. Contrast staining seen on the prior study has resolved. Hemorrhage: No evidence of acute intracranial hemorrhage. ECASS hemorrhagic transformation score: Not Applicable Mass Lesion / Mass Effect: There is persistent mild swelling within the right MCA infarct territory, but this is essentially unchanged from prior and there is no significant ventricular effacement or midline shift. Chronic change: Chronic left parietal encephalomalacia and gliosis redemonstrated. Chronic cerebellar infarcts redemonstrated. Parenchyma: There is mild generalized volume loss. Ventricles: Ventricular caliber is unchanged. Paranasal sinuses and skull base: Secretions in the right frontal sinus redemonstrated. The skull base and imaged soft tissues are unremarkable. IMPRESSION: 1. Expected evolution of the right MCA infarct without hemorrhage or significant mass effect. Previously seen contrast staining has resolved. Inspector Tester Sorter: [facility] HOSPITALRenato Transcribe Date/Time: Apr 17 2024 1:17A Dictated by : LILLI GUSTAFSON MD This examination was interpreted and the report reviewed and electronically signed by: LILLI GUSTAFSON MD on Apr 17 2024 1:24AM EST [id number] Normal [facility] CT BRAIN WO IVCON * * *Final Report* * * DATE OF EXAM: Apr 16 2024 4:22AM [facility] 0504 - CT BRAIN WO IVCON / PROCEDURE REASON: Stroke, follow up * * * * Physician Interpretation * * * * EXAMINATION: CT BRAIN WO IVCON CLINICAL HISTORY: Stroke, follow up. TECHNIQUE: Dual-energy protocol CT of the brain without IV contrast. CT Dose-Length Product (DLP): 732 mGy*cm CT Dose Reduction Employed: Iterative recon; COMPARISON: None available. RESULT: Findings compatible with evolving large acute right-sided MCA distribution infarction with mild swelling and blurring of hawthorne-white matter differentiation, with frontal, temporal and parietal lobe and opercular, as well as insular cortical involvement and equivocal minimal basal ganglia. Mild local regional mass effect, without shift across midline. Associated diffuse hazy hyperdensity in the infarcted area, is compatible with contrast staining, seen on both the 80kV and IOD series, but not apparent on the 'VNC' series. Mild intracranial arterial wall calcifications. Chronic brain parenchymal changes as earlier seen, including moderate large sized encephalomalacia/likel y remote infarction centered in the left-sided parietal lobe and small areas in the left-sided cerebellar hemisphere as well as mild to moderate generalized cerebral volume loss and commensurate ventriculomegaly. Mild paranasal sinus mucosal thickening. Partially imaged endotracheal and feeding tubes. Entry Level Marketing Assistant (topogram) images: Non-diagnostic. IMPRESSION: Dual energy brain CT shows evolving large acute right-sided MCA distribution infarction with contrast staining and mild mass effect. No evidence of hemorrhagic transformation. Other details above. Inspector Tester Sorter: PSCB Transcribe Date/Time: Apr 16 2024 4:34A Dictated by : GALEN MORALES MD This examination was interpreted and the report reviewed and electronically signed by: GALEN MORALES MD on Apr 16 2024 4:43AM EST [id number] [facility] Calcium.ionized [Moles/Vol]o n 04-16-2024 Calcium.ionized (BldV) [Mass/Vol] 1.21 mmol/L Normal 1.08-1.30 [facility] Comment on above: Order Comment: Speci men Type: BLOOD SPECIMENOrdering Facility: [facility] Address: [address] [place] [address] Performed By: #### 1 995-0 ####[facility] LABORATORYCLIA [id number] [place] [address] [place] Calcium.ionized adjusted to pH 7.4 (Bld) [Moles/Vol] 1.18 mmol/L Normal 1.08-1.30 [facility] Comment on above: Order Comment: Speci men Type: BLOOD SPECIMENOrdering Facility: [facility] Address: [facility] [place] [address] Performed By: #### 1 995-0 ####[facility] LABORATORYCLIA [id number] [place] [address] [place] ECHO WITH AGITATED SALINE CO NTRASTon 04-16-2024 ECHO WITH AGITATED SALINE CONTRAST Echocardiography Report: Transthoracic Echo [facility] Date of service: 04/16/2024 10:23:34 AM [facility] Ordering physician: MONIK ALLEN Indication: Stroke Technologist: Nikole De La Torre [facility] Interpreting physician: Jami Bonner MD PATIENT: Name: JONATHON PERALES : 1950 Age: 73 years Gender: M History of coronary artery disease, valvular heart disease, hypertension, dyslipidemia and chronic kidney disease. Primary rhythm: sinus. Height: 170.18 cm BSA: 1.86 m Weight: 73.10 kg BMI: 25.2 kg/m Heart rate 65 bpm Blood pressure 114/55 mmHg Technically difficult exam due to suboptimal positioning and mechanical ventilation. Color Doppler was utilized to interrogate the cardiac valves assessed and spectral Doppler was utilized to determine the flow velocities and pressure gradients reported in this exam. MEASUREMENTS: Value Indexed Normal Max aortic dimension 2.5 cm Ao < 3.8 Left atrium diameter 3.3 cm (2D) Left atrial volume 32 ml (biplane A-L) 17 ml/m Don <= 34 LV ID (diastole) 3.8 cm (2D) 2.07 cm/m LV ID (systole) 2.6 cm (2D) 1.40 cm/m IVS, leaflet tips 1.1 cm (2D) Posterior wall thickness 1.1 cm (2D) Left ventricular mass 139 g (2D) 75 g/m LV stroke volume 50 ml (2D biplane) LV end diastolic volume 72 ml (2D biplane) 38.9 ml/m 34<=EDVi<75 LV end systolic volume 22 ml (2D biplane) 12.0 ml/m Ejection Fraction 69 % (2D biplane) EF > 52 FINDINGS: LEFT VENTRICLE The left ventricle is normal in size. There is no left ventricular hypertrophy. Left ventricular systolic function is normal globally. Normal left ventricular diastolic function. Mitral annular lateral E/e': 8.5. Mitral annular septal E/e': 9.9. Wall Motion: All scored segments are normal. RIGHT VENTRICLE The right ventricle is normal in size. Right ventricular systolic function is normal. RV systolic tissue Doppler velocity is 8.5 cm/s. LEFT ATRIUM The left atrial cavity is normal in size. RIGHT ATRIUM The right atrial cavity is normal in size. MITRAL VALVE There is mild thickening. The pressure half time is 103 msec. The peak mitral E/A ratio is 0.59. The average mitral E/e' ratio is 9.2. The mitral flow deceleration time is 356 msec. AORTIC VALVE Bioprosthetic prosthetic valve. There is no aortic valve regurgitation. The peak gradient is 39 mmHg (peak velocity = 311.0 cm/s). The mean gradient is 18 mmHg. The LVOT mean velocity is 89.7 cm/s. The aortic VTI is 56.6 cm. The mean velocity in the aortic valve is 197.0 cm/s. The dimensionless valve index is 0.50. PULMONIC VALVE The pulmonic valve was not seen or not interrogated. There is trace pulmonic valve regurgitation. AORTA The visualized aorta is normal in size. Measurements - Mid ascending aorta 2.5 cm. PERICARDIUM There is no pericardial effusion. CONCLUSIONS: - Technically difficult exam due to suboptimal positioning and mechanical ventilation. - Exam indication: Stroke - The left ventricle is normal in size. There is no left ventricular hypertrophy. Left ventricular systolic function is normal. EF = 69 5% (2D biplane) Normal left ventricular diastolic function. - The right ventricle is normal in size. Right ventricular systolic function is normal. - Bioprosthetic prosthetic aortic valve. There is no aortic valve regurgitation. The peak gradient is 39 mmHg, the mean gradient is 18 mmHg and the dimensionless valve index is 0.50. - Prior pk/mn AV gradients were 33/18mmHg. DI of 0.56. - Exam was compared with the prior CC echocardiographic exam performed on 01/22/23. Ascending Aorta is not well visualized on current study. * * * Final * * * CC [employer] Image : [id number] Normal [facility] HIGH SENSITIVITY TROPONIN To n 04-16-2024 Troponin T.cardiac High sensitivity method [Mass/Vol] 37 ng/L High <12 [facility] Comment on above: Order Comment: Lyndsey eller Type: BLOOD SPECIMENOrdering Facility: [facility] Address: [address] [place] [address] Result Comment: When assessing risk for acute coronary syndromes: In patients undergoing blood draw greater than or equal to 2 hours from symptom onset, with history of very low to moderate risk and non-ischemic ECG, an initial hs-Troponin T less than 12 ng/L AND a 1 hour delta hs-Troponin T less than 3 ng/L should be considered very low risk for 30 day MACE. Performed By: #### H STNT ####[facility] LABORATORYCLIA [id number] [address] [place] HIGH SENSITIVITY TROPONIN T (SECOND)on 04-16-2024 Troponin T.cardiac High sensitivity method [Mass/Vol] 38 ng/L High <12 [facility] Comment on above: Order Comment: Lyndsey eller Type: BLOOD SPECIMENOrdering Facility: [facility] Address: [address] [place] [address] Result Comment: When assessing risk for acute coronary syndromes: In patients undergoing blood draw greater than or equal to 2 hours from symptom onset, with history of very low to moderate risk and non-ischemic ECG, an initial hs-Troponin T less than 12 ng/L AND a 1 hour delta hs-Troponin T less than 3 ng/L should be considered very low risk for 30 day MACE. Performed By: #### L [id number] ####[facility] LABORATORYCLIA [id number] [address] [place] HIGH SENSITIVITY TROPONIN T (THIRD) 3 HRS AFTER INITIALon 04-16-2024 Troponin T.cardiac High sensitivity method [Mass/Vol] 42 ng/L High <12 [facility] Comment on above: Order Comment: Lyndsey eller Type: BLOOD SPECIMENOrdering Facility: [facility] Address: [address], [place] [address] Result Comment: When assessing risk for acute coronary syndromes: In patients undergoing blood draw greater than or equal to 2 hours from symptom onset, with history of very low to moderate risk and non-ischemic ECG, an initial hs-Troponin T less than 12 ng/L AND a 1 hour delta hs-Troponin T less than 3 ng/L should be considered very low risk for 30 day MACE. Performed By: #### L [id number] ####[facility] LABORATORYCLIA [id number] [address] [place] HISTORY PHYSICALon HISTORY PHYSICAL HNO ID: [id number] Author: CARLOS VAUGHN MD Service: Neurology ICU Author Type: Physician Type: H&P Filed: 04/16/2024 13:31 Note Text: SERVICE DATE: 04/16/2024 SERVICE TIME: 1:01 AM NEUROLOGICAL INTENSIVE [facility]ARE UNIT HISTORY AND PHYSICAL REASON FOR ADMISSION: RMCA stroke Subjective HPI: 73yo male with PMHx significant for stroke, CAD, aortic valve replacement, HTN, HPL, CKD, and JAIRO; who developed stroke symptoms while visiting his who is admitted to the hospital. LKW 19304/15. iNIHSS 23. CT early ischemia in R insula. 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 TNK given at 2158. Pt s/p EVT tici [address] Cantor. Pt remains intubated post procedure. Aggrastat gtt per Dr Cantor. Pt admitted to NSICU for further management. PAST MEDICAL HISTORY Diagnosis Date Anxiety Moses's esophagus CAD (coronary artery disease) CKD (chronic kidney disease) Essential hypertension H/O aortic valve replacement Hyperlipemia LVH (left ventricular hypertrophy) MDD (major depressive disorder) JAIRO (obstructive sleep apnea) Stroke (HCC) No past surgical history on file. No family history on file. ALLERGIES Allergen Reactions Percocet [Oxycodone* Mental Status Change PRIOR TO ADMISSION MEDICATIONS: No medications prior to admission. Employer And Job Title: None on file Years Of Education Completed: Not specified Marital Status: REVIEW OF SYSTEMS: Unable to obtain 2/2 intubated Objective Vital Signs (Last 24hrs min/max): BP 98/60 Pulse (!) 59 Temp 36.4 ?C (97.6 ?F) (Oral) Resp 14 Wt 73.1 kg (161 lb 2.5 oz) SpO2 100% PHYSICAL EXAM: NEUROLOGICAL: GCS: Eyes: 1: None Verbal: T: Intubated Motor: 5: Localizes to stimulation Total: 7T Pt s/o thrombectomy Not reversed from anesthesia Intubated on vent Sedated with precedex but held for exam PERRL no gaze deviation +cough/gag Minimal spontaneous movement RUE W/d to noxious stim R>L CV: RRR Pulm: CTAB even unlabored GI/: abd soft NT/ND +BS Skin/Extremities: Edema- No Peripheral pulses- Present all extremities Wounds/Drsgs- No Breakdown- No DATA: Diagnostic tests reviewed for today's visit: Most recent labs and imaging results. Lines, Drains, and Airways Line Duration Peripheral 04/15/242123 Left Forearm 18 Gauge <1 day Peripheral 04/15/242123 Right Forearm 18 Gauge <1 day Airway Duration Airway Endotracheal Tube 04/15/24 2245 <1 day PERSONAL INVOLVEMENT IN CARE: Reviewing initiation, responses and adjustments to therapies, coordination of care, and updating family with Staff Physician, Dr. Vaughn. Assessment AND Plan 73yo male with PMHx significant for stroke, CAD, aortic valve replacement, HTN, HPL, CKD, and JAIRO; who developed stroke symptoms while visiting his who is admitted to the hospital. LKW 04/15. iNIHSS 23. CT early ischemia in R insula. 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 TNK given at 2158. Pt s/p EVT tici [address] Cantor. Pt remains intubated post procedure. Aggrastat gtt per Dr Cantor. Pt admitted to NSICU for further management. Active Hospital Problems as of 04/16/2024 Noted - Resolved [facility] * (Principal) Acute ischemic right MCA stroke (HCC) 04/16/2024 - Present Yes Current Assessment AND Plan P/w left hemiplegia, aphasia, and decreased sensation [facility] 04/[address] early ischemia in R insula. 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 Treated with TNK at 2158 S/p EVT Tici 3 Plan: Neuro checks per protocol Aggrastat gtt per Dr Cantor Hold ASA and plavix for now Lipitor 80mg daily Lipid panel pending Check A1c Tele TTE Dual energy CTH in am CUS on the R MRI brain SBP 90-[address] Cantor PT/OT/ST Stroke education Consult stroke neurology Daily labs Bowel regimen: senglenny S On mechanically assisted ventilation (HCC) 04/16/2024 - Present No Current Assessment AND Plan Peridex per protocol Protonix 40mg daily Left hemiplegia (HCC) 04/16/2024 - Present Yes Facial droop due to acute cerebrovascular accident (CVA) (HCC) (HCC) 04/16/2024 - Present Yes Aphasia 04/16/2024 - Present Yes Primary hypertension 04/16/2024 - Present Yes Mixed hyperlipidemia 04/16/2024 - Present Yes History of aortic valve replacement 04/16/2024 - Present Yes JAIRO (obstructive sleep apnea) 04/16/2024 - Present Yes Acute respiratory failure (HCC) 04/16/2024 - Present No Current Assessment AND Plan Remains intubated on vent WTE CXR pending Leukocytosis 04/16/2024 - Present Yes Current Assessment AND Plan Initial WBC 20.25 Lactate 6.2 Afebrile CXR pending UA pending Medication and Non-Pharmacologic VTE Prophylaxis/Anticoagul ants Anticoagulant AND Antiplatelet Medications (From admission, onward) Start Dose Route Frequency Last Action Ordered Stop 04/16/24 0100 tirofiban iv infusion 12.5 mg in NaCl 0.9% 250 mL (AGGRASTAT) (tirofiban iv infusion for bridging therapy (AGGRASTAT)) 4.39 mL/hr 0.05 mcg/kg/min INTRAVENOUS CON (more content not included)... [facility] HbA1c (Bld)on 04-16-2024 Average glucose Estimated from glycated hemoglobin (Bld) [Mass/Vol] 114 mg/dL Normal [facility] Comment on above: Order Comment: Speci men Type: BLOOD SPECIMENOrdering Facility: [facility] Address: [address] [place] [address] Result Comment: eAG: (Estimated average glucose) is a calculated value from HgbA1c and is real estate representative of the average blood glucose level in the last 2-3 month period. Performed By: #### 5 5454-3 ####[facility] LABCLIA [id number] [facility] [place] [address] [place] HbA1c (Bld) [Mass fraction] 5.6 % Normal 4.3-5.6 [facility] Comment on above: Order Comment: Rosimarine eller Type: BLOOD SPECIMENOrdering Facility: [facility] Address: [address] [place] [address] Result Comment: [place] Diabetes Association guidelines indicate that patients with HgbA1c in the range 5.7-6.4% are at increased risk for development of diabetes, and intervention by lifestyle modification may be beneficial. HgbA1c greater or equal to 6.5% is considered diagnostic of diabetes. Performed By: #### 5 5454-3 ####[facility] LABCLIA [id number] [address] OF [place] Lipid 1996 panelon 4 Cholesterol [Mass/Vol] 192 mg/dL Normal <200 [facility] Comment on above: Order Comment: Lyndsey rafita Type: BLOOD SPECIMENOrdering Facility: [facility] Address: [address] [place] [address] Result Comment: <200 mg/dL, Desirable 200-239 mg/dL, Borderline high >239 mg/dL, High Performed By: #### 2 4321-2, 84329-0, 2776-11, 99996-5 ####[facility] LABORATORYCLIA [id number] [address] [place] Cholesterol in HDL [Mass/Vol] 40 mg/dL Normal >39 [facility] Comment on above: Order Comment: Rosimarine eller Type: BLOOD SPECIMENOrdering Facility: [facility] Address: [address] [place] [address] Result Comment: 40-5 9 mg/dL, Acceptable >59 mg/dL, High: Negative risk factor for coronary heart disease <40 mg/dL, Low: Positive risk factor for coronary heart disease Performed By: #### 2 4321-2, 10150-6, 2776-11, 04647-3 ####[facility]ATORYCLIA [id number] [address] [place] Cholesterol in LDL [Mass/Vol] 103 mg/dL High <100 [facility] Comment on above: Order Comment: Rosii men Type: BLOOD SPECIMENOrdering Facility: [facility] Address: [address] [place] [address] Result Comment: <100 mg/dL, Optimal 100-129 mg/dL, Near optimal/above optimal 130-159 mg/dL, Borderline high 160-189 mg/dL, High >189 mg/dL, Very high Secondary prevention optimal LDL Cholesterol levels are recommended to be < 70 mg/dL Performed By: #### 2 4321-2, 80181-6, 2776-, 95931-6 ####[facility]ATORYCLIA [id number] [place] [address] [place] Cholesterol in LDL/Cholesterol in HDL [Mass ratio] 2.58 {ratio} High <2.54 [facility] Comment on above: Order Comment: Lyndsey eller Type: BLOOD SPECIMENOrdering Facility: [facility] Address: [address] [place] [address] Result Comment: Refe rence: 1. National Cholesterol Education Program ATP III Guideline At-A-Glance Quick Desk Reference: National Heart, Lung, and Blood [place]. National Institutes of Health. 2001: NIH Publication No. 01-3305. 2. An International Atherosclerosis Society position paper: global recommendations for the management of dyslipidemia: executive summary, Atherosclerosis. 2014: 232(2):410-413. Performed By: #### 2 4321-2, , 2776-11, 55109-6 ####[facility]ATORYCLIA [id number] [place] [address] [place] Cholesterol in VLDL [Mass/Vol] 49 mg/dL High <30 [facility] Comment on above: Order Comment: Rosii men Type: BLOOD SPECIMENOrdering Facility: [facility] Address: [address] [place] [address] Performed By: #### 2 4321-2, 65861-4, 2776-, 05441-1 ####[facility]ATORYCLIA [id number] [place] [address] [place] Cholesterol non HDL [Mass/Vol] 152 mg/dL High <130 [facility] Comment on above: Order Comment: Speci men Type: BLOOD SPECIMENOrdering Facility: [facility] Address: [address] [place] [address] Result Comment: <130 mg/dL, Optimal 130-159 mg/dL, Near optimal/above optimal 160-189 mg/dL, Borderline high 190-219 mg/dL, High >219 mg/dL, Very high Secondary prevention optimal non HDL Cholesterol levels are recommended to be <100 mg/dL Performed By: #### 2 4321-2, , 2776-11, 74512-3 ####[facility]ATORYCLIA [id number] [address] OF [facility] Cholesterol.total/Geno sterol in HDL [Mass ratio] 4.80 {ratio} Normal <5.10 [facility] Comment on above: Order Comment: Speci men Type: BLOOD SPECIMENOrdering Facility: [facility] Address: [address] [place] [address] Performed By: #### 2 4321-2, , 2776-11, 36846-8 ####[facility]ATORYCLIA [id number] [address] [place] FASTING TIME 8 hrs Normal [facility] Comment on above: Order Comment: Speci men Type: BLOOD SPECIMENOrdering Facility: [facility] Address: [address] [place] [address] Performed By: #### 2 4321-2, , 2776-11, 41788-2 ####[facility]ATORYCLIA [id number] [address] [place] Triglyceride [Mass/Vol] 243 mg/dL High <150 [facility] Comment on above: Order Comment: Speci men Type: BLOOD SPECIMENOrdering Facility: [facility] Address: [address] [place] [address] Result Comment: <150 mg/dL, Normal 150-199 mg/dL, Borderline high 200-499 mg/dL, High >499 mg/dL, Very high Performed By: #### 2 4321-2, , 2776-11, 23996-5 ####[facility]ATORYCLIA [id number] [place] [address] [place] Magnesium SerPl-mCazon 04-16 Magnesium [Mass/Vol] 1.9 mg/dL Normal 1.7-2.3 [facility] Comment on above: Order Comment: Speci men Type: BLOOD SPECIMENOrdering Facility: [facility] Address: [facility] [place] [address] Performed By: #### 2 4321-2, 47839-2, 2777-1, 99108-5 ####[facility]ATORYCLIA [id number] [place] [address] [place] NIL IR US GUIDE FOR VASC ACC ESSon 04-16-2024 NIL IR US GUIDE FOR VASC ACCESS * * *Final Report* * * DATE OF EXAM: Apr 16 2024 12:26AM A6A 1015 - NIL IR US GUIDE FOR VASC ACCESS / PROCEDURE REASON: stroke * * * * Physician Interpretation * * * * Endovascular Surgical Neuroradiology Report: Date: April 15, 2024. CLINICAL HISTORY: Patient is a 73 year old male with past medical history of stroke, CAD, aortic valve replacement, HTN, HPL, CKD, and JAIRO; who developed stroke symptoms while visiting his who is admitted to the hospital. iNIHSS 23. CT early ischemia in R insula. 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 Intravenous tNK given at 2158. Decision was to proceed with diagnostic craniocervical angiography with the intention for endovascular mechanical revascularization. PROCEDURE: 1. Ultrasound-guided Right common femoral artery access. 2. Diagnostic cervicocerebral angiogram. 3. Percutaneous transluminal arterial mechanical thrombectomy for the right ICA, MCA occlusion. 4. Percutaneous transluminal balloon angioplasty and stenting of the right ICA. 5. Follow-up cerebral angiography. 6. Closure device INFORMED CONSENT: After discussing the nature of the procedure the Diagnostic Cerebral Angiogram with the intent to perform right ICA - MCA mechanical thrombectomy? and all the related necessary procedures including possible coiling, stenting, embolization and mechanical and/or chemical thrombectomy with the patient's daughter over the phone. The nature of the patient's condition, the nature and purpose of the procedure, anticipated benefits, possible alternative methods of treatment, known risks involved in either the procedure or of not having the procedure, if any, and possible consequences and complications have been explained. The risks including but not limited to: Bleeding, groin hematoma, infection, injury to femoral or radial artery, loss of leg or arm, retroperitoneal bleeding, stroke, seizure, head bleed, coma, , myocardial infarction, renal dysfunction, aortic dissection, rupture of cerebral blood vessel or cerebral aneurysm resulting in brain bleed and , recurrence, residual and inability to do the procedure. The patient's daughter agreed to move forward with the procedure and the consent form was signed over the phone. All questions were answered. PRE-PROCEDURAL DIAGNOSIS: Right ICA-MCA occlusion. POST-PROCEDURAL DIAGNOSIS: Same. Surgery/Procedure Date: 04/15/2024 Incision/Procedure Start Time: 10:51 PM Incision Close/Procedure End Time: 0010 on 04/16. ATTENDING: Ramirez Cantor MD. CUSTOMS COMPLIANCE ANALYST (FELLOW): None. The procedure was performed solely by the attending. ANESTHESIA: General anesthesia care was provided by the anesthesiology team. Pulsed oximetry, cardiopulmonary monitoring and electrocardiography was performed throughout the procedure. Fluoroscopic Radiation Summary: Plane A, Air Kerma: 350.0 mGy Plane B, Air Kerma: 96.0 mGy Dose Area Product (DAP): 0.0 mGy*cm2 Fluoro time: 15:36 min:sec Radiation dose exceed 5 Gy: No If radiation dose exceeded 5 Gy, was counseling and instructional brochure provided:N/A Contrast (intra-arterial): 184 ml of OMNIPAQUE 300 TECHNIQUE: After ivelisse discussion of the risks and benefits of mechanical thrombectomy, informed consent was obtained as described above. The patient was brought to the Angiographic Suite and cardiopulmonary monitoring was placed.? A time-out was performed.? Both groins were prepped in the usual sterile fashion using ChloraPrep, and sterilely draped.? After administration of general anesthesia care, the skin over the right common femoral artery was sharply incised using a scalpel.? Under ultrasound guidance, a single wall puncture of the right common femoral artery was performed; and a 6-Fr short sheath was inserted into the right common femoral artery over the wire. Then, the 6-Fr sheath was removed and a 6-Fr Ballast sheath was inserted over the wire into the right common femoral artery into the descending aorta and maintained on a heparinized flush. Using coaxial technique, a 5-Fr Neuron select SIM diagnostic catheter was introduced into the Ballast sheath over an 0.035 glidewire and advanced into the descending aorta, back-bled, and flushed in the usual fashion.? Using coaxial technique, the catheter was advanced into the aortic arch, and with the aid of the roadmapping, digital fluoroscopy, and careful guidewire manipulation, the following vessels were selectively catheterized: The right common carotid artery, and the right internal carotid artery. Upon each successive selective catheterization, digital subtraction angiography using the appropriate rate and volume of contrast in multiple projections was performed. DIAGNOSTIC CEREBRAL ANGIOGRAM: RIGHT FEMORAL ARTERY: DSA images of the right common femoral artery demonstrate normal course and caliber of the vessel. The sheath is placed in the s (more content not included)... [facility] NIL [facility] THROMB INTRACRANIAL on 04-16-[address] [facility] THROMB INTRACRANIAL * * *Final Report* * * DATE OF EXAM: Apr 16 2024 12:26AM A6A 0860 - NIL [facility] THROMB INTRACRANIAL / PROCEDURE REASON: stroke * * * * Physician Interpretation * * * * Endovascular Surgical Neuroradiology Report: Date: April 15, 2024. CLINICAL HISTORY: Patient is a 73 year old male with past medical history of stroke, CAD, aortic valve replacement, HTN, HPL, CKD, and JAIRO; who developed stroke symptoms while visiting his who is admitted to the hospital. iNIHSS 23. CT early ischemia in R insula. 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 Intravenous tNK given at 2158. Decision was to proceed with diagnostic craniocervical angiography with the intention for endovascular mechanical revascularization. PROCEDURE: 1. Ultrasound-guided Right common femoral artery access. 2. Diagnostic cervicocerebral angiogram. 3. Percutaneous transluminal arterial mechanical thrombectomy for the right ICA, MCA occlusion. 4. Percutaneous transluminal balloon angioplasty and stenting of the right ICA. 5. Follow-up cerebral angiography. 6. Closure device INFORMED CONSENT: After discussing the nature of the procedure the Diagnostic Cerebral Angiogram with the intent to perform right ICA - MCA mechanical thrombectomy? and all the related necessary procedures including possible coiling, stenting, embolization and mechanical and/or chemical thrombectomy with the patient's daughter over the phone. The nature of the patient's condition, the nature and purpose of the procedure, anticipated benefits, possible alternative methods of treatment, known risks involved in either the procedure or of not having the procedure, if any, and possible consequences and complications have been explained. The risks including but not limited to: Bleeding, groin hematoma, infection, injury to femoral or radial artery, loss of leg or arm, retroperitoneal bleeding, stroke, seizure, head bleed, coma, , myocardial infarction, renal dysfunction, aortic dissection, rupture of cerebral blood vessel or cerebral aneurysm resulting in brain bleed and , recurrence, residual and inability to do the procedure. The patient's daughter agreed to move forward with the procedure and the consent form was signed over the phone. All questions were answered. PRE-PROCEDURAL DIAGNOSIS: Right ICA-MCA occlusion. POST-PROCEDURAL DIAGNOSIS: Same. Surgery/Procedure Date: 04/15/2024 Incision/Procedure Start Time: 10:51 PM Incision Close/Procedure End Time: 0010 on 04/16. ATTENDING: Ramirez Cantor MD. CUSTOMS COMPLIANCE ANALYST (FELLOW): None. The procedure was performed solely by the attending. ANESTHESIA: General anesthesia care was provided by the anesthesiology team. Pulsed oximetry, cardiopulmonary monitoring and electrocardiography was performed throughout the procedure. Fluoroscopic Radiation Summary: Plane A, Air Kerma: 350.0 mGy Plane B, Air Kerma: 96.0 mGy Dose Area Product (DAP): 0.0 mGy*cm2 Fluoro time: 15:36 min:sec Radiation dose exceed 5 Gy: No If radiation dose exceeded 5 Gy, was counseling and instructional brochure provided:N/A Contrast (intra-arterial): 184 ml of OMNIPAQUE 300 TECHNIQUE: After ivelisse discussion of the risks and benefits of mechanical thrombectomy, informed consent was obtained as described above. The patient was brought to the Angiographic Suite and cardiopulmonary monitoring was placed.? A time-out was performed.? Both groins were prepped in the usual sterile fashion using ChloraPrep, and sterilely draped.? After administration of general anesthesia care, the skin over the right common femoral artery was sharply incised using a scalpel.? Under ultrasound guidance, a single wall puncture of the right common femoral artery was performed; and a 6-Fr short sheath was inserted into the right common femoral artery over the wire. Then, the 6-Fr sheath was removed and a 6-Fr Ballast sheath was inserted over the wire into the right common femoral artery into the descending aorta and maintained on a heparinized flush. Using coaxial technique, a 5-Fr Neuron select SIM diagnostic catheter was introduced into the Ballast sheath over an 0.035 glidewire and advanced into the descending aorta, back-bled, and flushed in the usual fashion.? Using coaxial technique, the catheter was advanced into the aortic arch, and with the aid of the roadmapping, digital fluoroscopy, and careful guidewire manipulation, the following vessels were selectively catheterized: The right common carotid artery, and the right internal carotid artery. Upon each successive selective catheterization, digital subtraction angiography using the appropriate rate and volume of contrast in multiple projections was performed. DIAGNOSTIC CEREBRAL ANGIOGRAM: RIGHT FEMORAL ARTERY: DSA images of the right common femoral artery demonstrate normal course and caliber of the vessel. The sheath is placed in the stra (more content not included)... [facility] NURSING PROGon 04-16-2024 NURSING PROG HNO ID: [id number] Author: NIKI KENNEDY, RN Service: Nursing Author Type: Registered Nurse Type: Nursing Progress Note Filed: 04/17/2024 06:52 Note Text: Pt wallet given to daughter at bedside, verbal ok from daughter to give Ann (pt friend from outside group) limited updates. Normal [facility] NURSING PROG HNO ID: [id number] Author: NIKI KENNEDY RN Service: Nursing Author Type: Registered Nurse Type: Nursing Progress Note Filed: 04/16/2024 19:42 Note Text: Nursing Progress: Topic: RESTRAINT NON-VIOLENT PATIENT NAME: Jonathon Perales Patient Location: [place] [address] [address] Room: [place] [address] The patient demonstrates Lack of Understanding/Ability to Comply with Safety Directions, Impulsive Behavior, Inability to be Redirected as evidenced by the following behaviors impulsive behavior, lack of understanding, decreased short term memory which pose an imminent danger to self or others. The following interventions were attempted but were not effective in protecting the patient's safety: Alarms, Diversion Activities, Bed in Low/Locked Position, Call Light Within Reach, Frequent Observation Next, a comprehensive assessment was performed and warranted placing the patient in Soft Bilateral Wrists, the least restrictive restraint needed to protect the patient's safety. Ongoing safety assessments and evaluation for earliest removal of restraints will be performed. DATE: April 16, 2024 TIME: 7:40 PM Niki Kennedy RN [facility] NURSING PROG HNO ID: [id number] Author: NIKI KENNEDY RN Service: Nursing Author Type: Registered Nurse Type: Nursing Progress Note Filed: 04/16/2024 08:22 Note Text: Nursing Progress: Topic: RESTRAINT NON-VIOLENT PATIENT NAME: Jonathon Perales Patient Location: [place] [address] Room: [place] [address] The patient demonstrates Lack of Understanding/Ability to Comply with Safety Directions, Impulsive Behavior, Inability to be Redirected as evidenced by the following behaviors lack of understanding, impulsive behavior, decreased short term memory which pose an imminent danger to self or others. The following interventions were attempted but were not effective in protecting the patient's safety: Alarms, Diversion Activities, Bed in Low/Locked Position, Call Light Within Reach, Frequent Observation Next, a comprehensive assessment was performed and warranted placing the patient in Soft Bilateral Wrists, the least restrictive restraint needed to protect the patient's safety. Ongoing safety assessments and evaluation for earliest removal of restraints will be performed. DATE: April 16, 2024 TIME: 8:21 AM Niki Kennedy RN [facility] NUTRITIONon 04-16-2024 NUTRITION HNO ID: [id number] Author: DON DICKSON RD Service: Nutrition Therapy Author Type: Registered Dietitian Type: Nutrition Filed: 04/16/2024 13:10 Note Text: INITIAL ASSESSMENT SERVICE DATE: 04/16/2024 SERVICE TIME: 1130 Nutrition Assessment: Recommended Malnutrition Diagnosis: Unable to Identify Malnutrition at this time In the context of: Acute Illness or Injury Nutrition Diagnosis: Problem: Increased nutrient needs Related to: Acute illness As evidenced by: Medications and treatments, Intubation Estimated kilocalorie needs: 9635-4412 Calorie Calculation Method: 25-30 kcals/kg Estimated protein needs (grams): 82-109 Grams protein determined by: 1.2 - 1.6 g/kg Care Plan: Enteral Nutrition Tube Feeding Formula Type: Isosource 1.5 Goal Rate (mL/hr x hours): 50 ml/hr x 24 hours (1.2 L--1800 lashawn, 82 gm pro, 917 ml free water) Water Flush Volume (mL x frequency: 30 ml q4h Modular: ProSouce NoCarb Neutral (x1) Recommended Enteral Access: Oral, Gastric Monitor and Evaluation: Meet greater than 75% of estimated needs, Monitor bowel function, Monitor labs, I/Os, vital signs, weight, Monitor tolerance to tube feeding HPI: Stroke s/p TNK and thrombectomy. Remains intubated. H/o CAD, CKD. No family at bedside to provide nutrition history. Impact peptide TF started 04/16/24. Intake History: Nutrition Intake Prior to Admission: Unable to determine Diet Orders (From admission, onward) Start Ordered 04/16/24 0945 DIET TUBE FEED - CONTIN (NO TRAY) START NOW Question Answer Comment TF Product (26 years and up) IMPACT PEPTIDE 1.5 (RD APPROVAL) [place] Approved Secondary TF Product (Do Not Change) Pivot 1.5 TF Total mL per 24 hours 1128 Number of Liter Bags 1 TF Goal Rate (mL/hr) 47 TF Initial Rate (mL/hr) 10 TF Advance by (mL/hr) 10 TF Advance every (hrs) 4 TF Water Flush Amount (mL) 30 TF Water Flush Frequency Every 6 Hours 04/16/24 0949 Anthropometrics: Height: 170.2 cm (5' 7") Weight: 68.6 kg (151 lb 3.8 oz) Dosing Weight: 68.5 kg (151 lb) Body mass index is 23.69 kg/m?. Weight Change: Unable to determine (no weight history) Physical Exam: Subcutaneous fat loss: No fat loss Muscle loss: No muscle loss Potential micronutrient deficiency: No deficiency identified (limited exam) Edema/Ascites: No edema GI Symptoms: None Functional Status: Unable to assess Potential Signs of Inflammation: Chronic condition, Hyperglycemia, Critically ill, Leukocytosis CAD MNT Billing: $ Initial Assessment: 1-15 minutes SIGNATURE: Don Dickson RD PATIENT NAME: Jonathon Perales DATE: April 16, 2024 TIME: 12:40 PM [facility] Phosphate SerPl-mCncon 05-30 -2024 Phosphate [Mass/Vol] 2.9 mg/dL Normal 2.7-4.8 [facility] Comment on above: Order Comment: Specmarine eller Type: BLOOD SPECIMENOrdering Facility: [facility] Address: [address] [place] [address] Performed By: #### 2 4321-2, 60204-0, 2777-1, 16235-5 ####[facility]ATORYCLIA [id number] [address] STAPHYLOCOCCUS AUREUS AND MR SA SCREEN, PCR, NASALon 04-16-2024 S. aureus and MRSA panel PRIYANKA+probe (Nose) Not detected Normal Not Detected [facility] Comment on above: Order Comment: Lyndsey eller Type: SWABOrdering Facility: [facility] Address: [address] [place] [address] Performed By: #### S APCR ####[facility]ORATORYCLIA [id number] [address] OF [facility] THERAPY NTon 04-16-2024 THERAPY NT HNO ID: [id number] Author: TOSHA JACOBSON OTR/Eriberto Service: Occupational Therapy Author Type: Occupational Therapist Type: Therapy (PT/OT/Speech/Resp) Filed: 04/16/2024 14:36 Note Text: OCCUPATIONAL THERAPY MISSED VISIT SERVICE DATE: 04/16/2024 SERVICE TIME: (P) 1436 ROOM: [place] [address] Patient not seen due to (P) Clinical Appropriateness. Will continue to follow. SIGNATURE: YELENA Meneses/Eriberto PATIENT NAME: Jonathon Perales DATE: April 16, 2024 TIME: 2:36 PM [facility] THERAPY NT HNO ID: [id number] Author: KATHRIN JEWELL RRT Service: Respiratory Therapy Author Type: Registered Resp Therapist Type: Therapy (PT/OT/Speech/Resp) Filed: 04/16/2024 13:03 Note Text: 04/16/24 1302 Daily Spontaneous Breathing Trial (SBT) Per nursing, SAT passed Yes ALL Criteria Met for Successful Wean Screen $Yes, SBT performed per RT protocol Time SBT Started 1300 Time SBT Stopped 1302 SBT Total Time (minutes) 2 Passed Spontaneous Breathing Trial N Reason(s) SBT failed Respiratory Rate > 35bpm (RR 46, agitation) [facility] THERAPY NT HNO ID: [id number] Author: SHAHID PONCE CCC-CAT OPERATOR Service: Speech/Swallow Author Type: Speech Language Pathologist Type: Therapy (PT/OT/Speech/Resp) Filed: 04/16/2024 09:25 Note Text: SPEECH THERAPY MISSED VISIT SERVICE DATE: 04/16/2024 SERVICE TIME: 923 ROOM: [place] [address] Patient not seen due to Clinical Appropriateness. Intubated. SIGNATURE: Shahid Ponce CCC-CAT OPERATOR PATIENT NAME: Jonathon Perales DATE: April 16, 2024 TIME: 9:25 AM [facility] THERAPY NT HNO ID: [id number] Author: KATHRIN JEWELL RRT Service: Respiratory Therapy Author Type: Registered Resp Therapist Type: Therapy (PT/OT/Speech/Resp) Filed: 04/16/2024 09:11 Note Text: 04/16/24 0910 Daily Spontaneous Breathing Trial (SBT) Per nursing, SAT passed No ALL Criteria Met for Successful Wean Screen No, SBT deferred (non-surgical) Reason Wean Screen Failed (Surgical) Patient not awake or following commands (per Dr. Tavarez, no plans to extubate today) [facility] THERAPY NT HNO ID: [id number] Author: NORA AVENDAÑO PT Service: Physical Therapy Author Type: Physical Therapist Type: Therapy (PT/OT/Speech/Resp) Filed: 04/16/2024 09:04 Note Text: PHYSICAL THERAPY MISSED VISIT SERVICE DATE: 04/16/2024 SERVICE TIME: ROOM: [place] [address] Patient not seen due to Hold Monitor AND Reassess (Patient on bedrest for 24 hours, will re-attempt as able.). SIGNATURE: Nora Avendaño, PT PATIENT NAME: Jonathon Perales DATE: April 16, 2024 TIME: 9:04 AM [facility] TOXICOLOGY SCREEN, ROUTINE U RINEon 04-16-2024 Amphetamines Confirm (U) [Mass/Vol] Negative Normal Negative [facility] Comment on above: Order Comment: Speci men Type: URINE SPECIMENOrdering Facility: [facility] Address: [address] [place] [address] Result Comment: Cuto ff threshold at 1000 ng/mL. Performed By: #### U TOX2 ####[facility]ATORYCLIA [id number] [address] [place] BARBITURATES, URINE Negative Normal Negative [facility] Comment on above: Order Comment: Speci men Type: URINE SPECIMENOrdering Facility: [facility] Address: [address] [place] [address] Result Comment: Cuto ff threshold at 200 ng/mL. Performed By: #### U TOX2 ####[facility]ATORYCLIA [id number] [place] [address] [place] BENZODIAZEPINES, UR Positive Abnormal Negative [facility] Comment on above: Order Comment: Speci men Type: URINE SPECIMENOrdering Facility: [facility] Address: [address] [place] [address] Result Comment: Cuto ff threshold at 200 ng/mL. Performed By: #### U TOX2 ####[facility]ORYCLIA [id number] [place] [address] [place] Cannabinoids Screen Ql (U) Negative Normal Negative [facility] Comment on above: Order Comment: Speci men Type: URINE SPECIMENOrdering Facility: [facility] Address: [address] [place] [address] Result Comment: Cuto ff threshold at 50 ng/mL. Performed By: #### U TOX2 ####[facility]ORYCLIA [id number] [place] [address] [place] Cocaine Ql (U) Negative Normal Negative [facility] Comment on above: Order Comment: Speci men Type: URINE SPECIMENOrdering Facility: [facility] Address: [address] [place] [address] Result Comment: Cuto ff threshold at 300 ng/mL. Performed By: #### U TOX2 ####[facility]ORYCLIA [id number] [address] [place] Ethanol (U) [Mass/Vol] <11 Normal <11 [facility] Comment on above: Order Comment: Speci men Type: URINE SPECIMENOrdering Facility: [facility] Address: [address] [place] [address] Performed By: #### U TOX2 ####[facility]ORYCLIA [id number] [address] [place] Opiates Screen Ql (U) Negative Normal Negative [facility] Comment on above: Order Comment: Speci men Type: URINE SPECIMENOrdering Facility: [facility] Address: [address] [place] [address] Result Comment: Cuto ff threshold at 300 ng/mL. Performed By: #### U TOX2 ####[facility]ATORYCLIA [id number] [address] oxyCODONE cutoff Screen (U) [Mass/Vol] Negative Normal Negative [facility] Comment on above: Order Comment: Speci men Type: URINE SPECIMENOrdering Facility: [facility] Address: [address] [place] [address] Result Comment: Cuto ff threshold at 100 ng/mL. Performed By: #### U TOX2 ####[facility]ORATORYCLIA [id number] [address] Phencyclidine Ql (U) Negative Normal Negative [facility] Comment on above: Order Comment: Speci men Type: URINE SPECIMENOrdering Facility: [facility] Address: [address] [place] [address] Result Comment: Cuto ff threshold at 25 ng/mL. Performed By: #### U TOX2 ####[facility]ORYCLIA [id number] [address] Urinalysis complete panel (U )on 04-16-2024 Bilirubin Ql (U) Negative Normal Negative [facility] Comment on above: Order Comment: Speci men Type: URINE SPECIMENOrdering Facility: [facility] Address: [address] [place] [address] Performed By: #### 2 4356-8 ####[facility]ORATORYCLIA [id number] [address] OF [place] Clarity (Unsp spec) Clear Normal Clear [facility] Comment on above: Order Comment: Speci men Type: URINE SPECIMENOrdering Facility: [facility] Address: [address] [place] [address] Performed By: #### 2 4356-8 ####[facility] LABORATORYCLIA [id number] [address] [place] Color (U) Light Yellow Normal yellow [facility] Comment on above: Order Comment: Speci men Type: URINE SPECIMENOrdering Facility: [facility] Address: [facility] [place] [address] Performed By: #### 2 4356-8 ####[facility]ATORYCLIA [id number] [address] OF [place] Glucose Test strip (U) [Mass/Vol] Negative Normal Trace, Negative [facility] Comment on above: Order Comment: Speci men Type: URINE SPECIMENOrdering Facility: [facility] Address: [address] [place] [address] Performed By: #### 2 4356-8 ####[facility]ATORYCLIA [id number] [address] [place] Hemoglobin Ql (U) Negative Normal Negative, Trace [facility] Comment on above: Order Comment: Speci men Type: URINE SPECIMENOrdering Facility: [facility] Address: [address] [place] [address] Performed By: #### 2 4356-8 ####[facility]ORYCLIA [id number] [address] Ketones Ql (U) Negative Normal Negative, Trace [facility] Comment on above: Order Comment: Speci men Type: URINE SPECIMENOrdering Facility: [facility] Address: [address] [place] [address] Performed By: #### 2 4356-8 ####[facility]ATORYCLIA [id number] [address] Leukocyte esterase Test strip Ql (U) Negative Normal Negative, 25 Garrick/uL [facility] Comment on above: Order Comment: Speci men Type: URINE SPECIMENOrdering Facility: [facility] Address: [address] [place] [address] Performed By: #### 2 4356-8 ####[facility]ATORYCLIA [id number] [address] STATES [facility] Nitrite Ql (U) Negative Normal Negative [facility] Comment on above: Order Comment: Speci men Type: URINE SPECIMENOrdering Facility: [facility] Address: [address] [place] [address] Performed By: #### 2 4356-8 ####[facility]ORATORYCLIA [id number] [address] STATES [facility] pH (U) 6.0 [pH] Normal 5.0-8.0 [facility] Comment on above: Order Comment: Speci men Type: URINE SPECIMENOrdering Facility: [facility] Address: [address] [place] [address] Performed By: #### 2 4356-8 ####[facility]ATORYCLIA [id number] [address] STATES [facility] Protein (U) [Mass/Vol] Trace Normal Trace , Negative [facility] Comment on above: Order Comment: Speci men Type: URINE SPECIMENOrdering Facility: [facility] Address: [address] [place] [address] Performed By: #### 2 4356-8 ####[facility]ATORYCLIA [id number] [address] RBC LM.HPF (Urine sed) [#/Area] 3-5 /HPF Abnormal 0-3 /HPF [facility] Comment on above: Order Comment: Speci men Type: URINE SPECIMENOrdering Facility: [facility] Address: [address] [place] [address] Performed By: #### 2 4356-8 ####[facility]ORATORYCLIA [id number] [place] [address] [place] Specific gravity (U) [Rel density] >1.040 High 1.005-1.030 [facility] Comment on above: Order Comment: Speci men Type: URINE SPECIMENOrdering Facility: [facility] Address: [address] [place] [address] Performed By: #### 2 4356-8 ####[facility]ORATORYCLIA [id number] [place] [id number] [place] Urobilinogen Ql (U) Normal Normal Normal [facility] Comment on above: Order Comment: Speci men Type: URINE SPECIMENOrdering Facility: [facility] Address: [address] [place] [address] Performed By: #### 2 4356-8 ####[facility]ATORYCLIA [id number] [address] [place] WBC LM.HPF (Urine sed) [#/Area] 0-5 /HPF Normal 0-5 /HPF [facility] Comment on above: Order Comment: Speci men Type: URINE SPECIMENOrdering Facility: [facility] Address: [address] [place] [address] Performed By: #### 2 4356-8 ####[facility]ORATORYCLIA [id number] [place] [id number] [place] XR ABDOMEN 1V SUPINEon 04-16 XR ABDOMEN 1V SUPINE * * *Final Report* * * DATE OF EXAM: Apr 16 2024 1:20PM AKX [id number] - XR ABDOMEN 1V SUPINE / PROCEDURE REASON: Evaluate tube, line or lead position * * * * Physician Interpretation * * * * EXAM TITLE: XR ABDOMEN 1V SUPINE DATE: 04/16/2024 1:50 PM INDICATION: Tube placement COMPARISON: Earlier today FINDINGS: Esophagogastric tube tip is in the proximal stomach. The bowel gas pattern is normal. No masses. IMPRESSION: See above. Inspector Tester Sorter: MILTON Transcribe Date/Time: Apr 16 2024 1:50P Dictated by : REED SAM MD This examination was interpreted and the report reviewed and electronically signed by: REED SAM MD on Apr 16 2024 1:51PM EST [id number] Normal [facility] XR ABDOMEN 1V SUPINE * * *Final Report* * * DATE OF EXAM: Apr 16 2024 1:20AM AKX [id number] - XR ABDOMEN 1V SUPINE / PROCEDURE REASON: Evaluate tube, line or lead position * * * * Physician Interpretation * * * * EXAMINATION: XR ABDOMEN 1V SUPINE HISTORY: Evaluate tube, line or lead position COMPARISON: None available. TECHNIQUE: AP view the upper abdomen. FINDINGS: Postsurgical changes of thoracic surgery. Enteric tube terminates in the region of the gastric body. Nonspecific bowel gas pattern. Elevation right hemidiaphragm. IMPRESSION: Enteric tube terminates in the region of the gastric body. Inspector Tester Sorter: MILTON Transcribe Date/Time: Apr 16 2024 2:02A Dictated by : ANITA TINAJERO MD This examination was interpreted and the report reviewed and electronically signed by: ANITA TINAJERO MD on Apr 16 2024 2:03AM EST [id number] Normal [facility] XR CHEST 1V FRONTALon 2023 XR CHEST 1V FRONTAL * * *Final Report* * * DATE OF EXAM: Apr 16 2024 1:20AM AKX 5290 - XR CHEST 1V FRONTAL / PROCEDURE REASON: Evaluate tube, line, or lead position * * * * Physician Interpretation * * * * EXAMINATION: CHEST RADIOGRAPH (PORTABLE SINGLE VIEW AP) Exam Date/Time: 04/16/2024 1:20 AM CLINICAL HISTORY: Evaluate tube, line, or lead position MQ: XCPR_5 COMPARISON: None. TECHNIQUE: An AP view of the chest. FINDINGS: Post surgical changes of thoracic surgery. Endotracheal tube terminates 2.9 cm above the william. An enteric tube terminates below the included [id number]. There is a stent and surgical clips in the right neck. Right hemidiaphragm is elevated. Cardiac silhouette and pulmonary vessels are within normal limits. No consolidation or edema. No evidence of pleural effusion or pneumothorax. Osseous structures are grossly unremarkable for age. IMPRESSION: Endotracheal tube terminates approximately 2.9 cm above the william. Inspector Tester Sorter: MILTON Transcribe Date/Time: Apr 16 2024 1:59A Dictated by : ANITA TINAJERO MD This examination was interpreted and the report reviewed and electronically signed by: ANITA TINAJERO MD on Apr 16 2024 2:02AM EST [id number] Normal [facility] ANES PRE-OPon 04-15-2024 ANES PRE-OP HNO ID: [id number] Author: FAHAD VILLEDA MD Service: Anesthesiology Author Type: Anesthesiologist Type: Anesthesia Preprocedure Evaluation Filed: 04/15/2024 22:55 Note Text: ANESTHESIOLOGY DAY OF SURGERY NOTE : 1950 Procedure Information Date/Time: 04/15/242144 Procedure: PERC ARTERIAL TRANSLUMINAL MECHANICAL THROMBECTOMY AND/OR INFUSION FOR THROMBOLYSIS, INTRACRANIAL, ANY METHOD INCL DIAG ANGIOGRAPHY, FLOURO GUIDANCE,CATH PLACEMENT/ INTRAPROC PHARM THROMBOLYTIC INJ Location: [place] [facility] [place] / [place] [facility] [place] Surgeons: Ramirez Cantor MD There is no height or weight on file to calculate BMI. Most recent hematocrit and potassium results: Hematocrit 48.0 04/15/2024 Potassium (POCT) 5.7 04/15/2024 Relevant Problems No relevant active problems #Acute stroke presenting emergently to [facility] for thrombectomy I - PHYSICAL EVALUATION AIRWAY Patient intubated: No. Tracheostomy tube not present Mallampati: III. TM distance: >3 FB. Neck ROM: full ROM without neurological symptoms. Mouth opening: adequate. Short neck: no. Thick neck: no DENTAL Dental findings: edentulous. II - ANESTHESIA PLAN ASA Score: 5; emergent. Anesthetic Plan: general Airway type: ETT NPO Status: adequate Beta Juni Monitoring Plan Monitoring plan: standard ASA. Post Procedure Analgesic Plan Postoperative analgesic plan: multimodal analgesia, per surgical service, go to ICU and remain intubated. Informed Consent Anesthetic risks, benefits, alternatives, personnel and consent discussed: no. Reason: Patient mentally impaired Patient / Responsible Alliance Party agrees to proceed: no Reason: Patient mentally impaired Patient / Surrogate agrees to blood products: unable to give consent Potential Anesthesia issues that may suggest increased risk of complications or contraindication to planned procedure: potential difficult intubation. Vitals Value Taken Time BP 202/173 04/15/24 2200 Pulse 108 04/15/24 2201 Resp 17 04/15/242200 Temp 36.4 ?C (97.6 ?F) 04/15/242135 SpO2 89 % 04/15/242200 Vitals shown include unfiled device data. Facility-Administered Medications as of 04/15/2024 Medication Dose Route Frequency iv contrast (radiology procedure) INTRAVENOUS DIRECTED PRN LORazepam 1 mg injection (ATIVAN) 1 mg INTRAVENOUS ONCE haloperidol lactate 5 mg short-acting injection (HALDOL) 5 mg INTRAVENOUS ONCE dexmedeTOMIDine 400 mcg in NaCl 0.9% 100 mL (PRECEDEX) 0.2-0.7 mcg/kg/hr INTRAVENOUS CONTINUOUS No current outpatient medications on file as of 04/15/2024. I have interviewed and examined the patient. I have reviewed the medical record and/or the pre-anesthesia evaluation, pertinent labs, and test results. This contains updated information obtained within 48 hours of Surgery/Procedure. SIGNATURE: Fahad Villeda MD PATIENT NAME: Jonathon Perales DATE: April 15, 2024 TIME: 10:02 PM CSN: [id number] Normal [facility] CBC W Auto Differential pane l (Bld)on 04-15-2024 Basophils (Bld) [#/Vol] 0.03 10*3/uL Normal <0.11 [facility] Comment on above: Order Comment: Speci men Type: BLOOD SPECIMENOrdering Facility: [facility] Address: [address] [place] [address] Performed By: #### 5 7021-8 ####[facility]ORATORYCLIA [id number] [place] [address] [place] Basophils/100 WBC (Bld) 0.1 % Normal A [facility] Comment on above: Order Comment: Speci men Type: BLOOD SPECIMENOrdering Facility: [facility] Address: [address] [place] [address] Performed By: #### 5 7021-8 ####[facility]ORATORYCLIA [id number] [address] [place] Differential cell count method Nom (Bld) Auto Normal [facility] Comment on above: Order Comment: Speci men Type: BLOOD SPECIMENOrdering Facility: [facility] Address: [address] [place] [address] Performed By: #### 5 7021-8 ####[facility]ORATORYCLIA [id number] [address] Eosinophils (Bld) [#/Vol] 10*3/uL Normal <0.46 [facility] Comment on above: Order Comment: Speci men Type: BLOOD SPECIMENOrdering Facility: [facility] Address: [address] [place] [address] Performed By: #### 5 7021-8 ####[facility]ORATORYCLIA [id number] [address] Eosinophils/100 WBC (Bld) 0.0 % Normal [facility] Comment on above: Order Comment: Speci men Type: BLOOD SPECIMENOrdering Facility: [facility] Address: [address] [place] [address] Performed By: #### 5 7021-8 ####[facility]ORATORYCLIA [id number] [address] Erythrocyte distribution width (RBC) [Ratio] 12.4 % Normal 11.5-15.0 [facility] Comment on above: Order Comment: Speci men Type: BLOOD SPECIMENOrdering Facility: [facility] Address: [address] [place] [address] Performed By: #### 5 7021-8 ####[facility]ORATORYCLIA [id number] [address] Hematocrit (Bld) [Volume fraction] 48.0 % Normal 39.0-51.0 [facility] Comment on above: Order Comment: Speci men Type: BLOOD SPECIMENOrdering Facility: [facility] Address: [address] [place] [address] Performed By: #### 5 7021-8 ####[facility]ORYCLIA [id number] [address] Hemoglobin (Bld) [Mass/Vol] 15.9 g/dL Normal 13.0-17.0 [facility] Comment on above: Order Comment: Speci men Type: BLOOD SPECIMENOrdering Facility: [facility] Address: [address] [place] [address] Performed By: #### 5 7021-8 ####[facility]ATORYCLIA [id number] [place] [address] [place] Immature granulocytes (Bld) [#/Vol] 0.24 10*3/uL High <0.10 [facility] Comment on above: Order Comment: Speci men Type: BLOOD SPECIMENOrdering Facility: [facility] Address: [address] [place] [address] Performed By: #### 5 7021-8 ####[facility]ATORYCLIA [id number] [place] [address] [place] Immature granulocytes/100 WBC (Bld) 1.2 % Normal [facility] Comment on above: Order Comment: Speci men Type: BLOOD SPECIMENOrdering Facility: [facility] Address: [address] [place] [address] Performed By: #### 5 7021-8 ####[facility]ATORYCLIA [id number] [place] [address] [place] Lymphocytes (Bld) [#/Vol] 2.78 10*3/uL Normal 1.00-4.00 [facility] Comment on above: Order Comment: Speci men Type: BLOOD SPECIMENOrdering Facility: [facility] Address: [address] [place] [address] Performed By: #### 5 7021-8 ####[facility]ORYCLIA [id number] [place] [address] [place] Lymphocytes/100 WBC (Bld) 13.7 % Normal [facility] Comment on above: Order Comment: Speci men Type: BLOOD SPECIMENOrdering Facility: [facility] Address: [address] [place] [address] Performed By: #### 5 7021-8 ####[facility]ORYCLIA [id number] [address] MCH (RBC) [Entitic mass] 34.6 pg High 26.0-34.0 [facility] Comment on above: Order Comment: Speci men Type: BLOOD SPECIMENOrdering Facility: [facility] Address: [address] [place] [address] Performed By: #### 5 7021-8 ####[facility]ATORYCLIA [id number] [address] [place] MCHC (RBC) [Mass/Vol] 33.1 g/dL Normal 30.5-36.0 [facility] Comment on above: Order Comment: Speci men Type: BLOOD SPECIMENOrdering Facility: [facility] Address: [address] [place] [address] Performed By: #### 5 7021-8 ####[facility]ATORYCLIA [id number] [address] [place] MCV (RBC) [Entitic vol] 104.6 fL High 80.0-100.0 [facility] Comment on above: Order Comment: Speci men Type: BLOOD SPECIMENOrdering Facility: [facility] Address: [address] [place] [address] Performed By: #### 5 7021-8 ####[facility]ATORYCLIA [id number] [address] [place] Monocytes (Bld) [#/Vol] 1.04 10*3/uL High <0.87 [facility] Comment on above: Order Comment: Speci men Type: BLOOD SPECIMENOrdering Facility: [facility] Address: [address] [place] [address] Performed By: #### 5 7021-8 ####[facility]ATORYCLIA [id number] [address] Monocytes/100 WBC (Bld) 5.1 % Normal [facility] Comment on above: Order Comment: Speci men Type: BLOOD SPECIMENOrdering Facility: [facility] Address: [address] [place] [address] Performed By: #### 5 7021-8 ####[facility]ORATORYCLIA [id number] [place] [address] [place] Neutrophils (Bld) [#/Vol] 16.16 10*3/uL High 1.45-7.50 [facility] Comment on above: Order Comment: Speci men Type: BLOOD SPECIMENOrdering Facility: [facility] Address: [address] [place] [address] Performed By: #### 5 7021-8 ####[facility]ORATORYCLIA [id number] [address] [place] Neutrophils/100 WBC (Bld) 79.9 % Normal [facility] Comment on above: Order Comment: Speci men Type: BLOOD SPECIMENOrdering Facility: [facility] Address: [address] [place] [address] Performed By: #### 5 7021-8 ####[facility]ATORYCLIA [id number] [address] [place] Nucleated RBC (Bld) [#/Vol] 10*3/uL Normal <0.01 [facility] Comment on above: Order Comment: Speci men Type: BLOOD SPECIMENOrdering Facility: [facility] Address: [address] [place] [address] Performed By: #### 5 7021-8 ####[facility]ORATORYCLIA [id number] [address] [place] Nucleated RBC/100 WBC (Bld) [Ratio] 0.0 /100 WBC Normal [facility] Comment on above: Order Comment: Speci men Type: BLOOD SPECIMENOrdering Facility: [facility] Address: [address] [place] [address] Performed By: #### 5 7021-8 ####[facility]ATORYCLIA [id number] [address] [place] Platelet mean volume (Bld) [Entitic vol] 10.4 fL Normal 9.0-12.7 [facility] Comment on above: Order Comment: Speci men Type: BLOOD SPECIMENOrdering Facility: [facility] Address: [address] [place] [address] Performed By: #### 5 7021-8 ####[facility]ATORYCLIA [id number] [address] Platelets (Bld) [#/Vol] 299 10*3/uL Normal 150-400 [facility] Comment on above: Order Comment: Speci men Type: BLOOD SPECIMENOrdering Facility: [facility] Address: [address] [place] [address] Performed By: #### 5 7021-8 ####[facility]ATORYCLIA [id number] [address] RBC (Bld) [#/Vol] 4.59 10*6/uL Normal 4.20-6.00 [facility] Comment on above: Order Comment: Speci men Type: BLOOD SPECIMENOrdering Facility: [facility] Address: [address] [place] [address] Performed By: #### 5 7021-8 ####[facility]ORATORYCLIA [id number] [address] OF [facility] WBC (Bld) [#/Vol] 20.25 10*3/uL High 3.70-11.00 [facility] Comment on above: Order Comment: Speci men Type: BLOOD SPECIMENOrdering Facility: [facility] Address: [address] [place] [address] Performed By: #### 5 7021-8 ####[facility]ORATORYCLIA [id number] [address] BRAIN WO IVCONon 04-15-[address] BRAIN WO IVCON * * *Final Report* * * DATE OF EXAM: Apr 15 2024 9:23PM [facility] 0504 - CT BRAIN WO IVCON / PROCEDURE REASON: Head trauma, moderate-severe * * * * Physician Interpretation * * * * EXAMINATION: CT BRAIN WO IVCON CLINICAL HISTORY: Head trauma, slurred speech, confusion TECHNIQUE: Serial axial images without IV contrast were obtained from the vertex to the foramen magnum. MQ: CTBWO_3 CT Radiation dose: Integrated Dose-Length Product (DLP) for this visit = 755 mGy*cm CT Dose Reduction Employed: Iterative recon COMPARISON: None. RESULT: Localizer images: No additional findings. Post-operative change: None. Acute change: Equivocal haziness of the right insula, potentially reflecting right MCA infarct. Hemorrhage: No evidence of acute intracranial hemorrhage. ECASS hemorrhagic transformation score: Not Applicable Mass Lesion / Mass Effect: There is no evidence of an intracranial mass or extraaxial fluid collection. No significant mass effect. Chronic change: Scattered patchy foci of low attenuation are present within supratentorial white matter which is a nonspecific finding but likely represents mild microvascular ischemia. Encephalomalacia and gliosis in the left parietal lobe, compatible with chronic infarct. Remote infarcts in the left cerebellum. Parenchyma: There is mild generalized volume loss. The brain parenchyma is otherwise within normal limits for age. Ventricles: Ventricular enlargement concordant with the degree of parenchymal volume loss. Paranasal sinuses and skull base: Small volume secretions in the right frontal sinus. The skull base and imaged soft tissues are unremarkable. IMPRESSION: 1. Equivocal blurring of hawthorne-white differentiation involving the right insula, potentially reflecting right MCA infarct. 2. No evidence of acute intracranial hemorrhage. 3. 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 URGENT RESULTS Acuity: Urgent Communication: Communicated with Dr. Gross on 04/15/2024 9:37 PM via verbal communication. --END OF FINDING-- Inspector Tester Sorter: MILTON Transcribe Date/Time: Apr 15 2024 9:27P Dictated by : LILLI GUSTAFSON MD This examination was interpreted and the report reviewed and electronically signed by: LILLI GUSTAFSON MD on Apr 15 2024 9:40PM EST [id number] Normal [facility] CT C-SPINE W RECON DATA -NBo n 04-15-2024 CT C-SPINE W RECON DATA -NB * * *Final Report* * * DATE OF EXAM: Apr 15 2024 9:37PM [facility] 0478 - CT C-SPINE W RECON DATA -NB / PROCEDURE REASON: Neck trauma, intoxicated or obtunded (Age >= 16y) * * * * Physician Interpretation * * * * EXAMINATION: CTA HEAD W IVCON, CTA NECK W IVCON, CT C-SPINE W RECON DATA -NB Clinical history provided by the ordering clinician via order question and clinical decision support entries: Aneurysm (accession [id number]), Dissection (accession [id number]). Focal neuro deficit, new, fixed, or worsening, < 4.5 hours, stroke suspected (accession [id number]), Carotid artery dissection (accession [id number]), Neck trauma, intoxicated or obtunded (Age >= 16y) (accession [id number]). Focal neuro deficit, new, fixed, or worsening, < 4.5 hours, stroke suspected. . fall rapid response called. . TECHNIQUE: Next, high resolution axial images were obtained through the head, neck and superior mediastinum following bolus administration of intravenous contrast for CT angiography. 3D maximum intensity projection images were created, reviewed and archived . Reconstructed axial, sagittal, and coronal images of the cervical spine were also performed. MQ: CTBWO_3 MQ: CTAHN_4 MQ: CTCSPWO_5 Contrast: 100 mL Omnipaque 350 IV Dose-Length Product (DLP): 823 mGy*cm. CT Dose Reduction Employed: Automated exposure control(AEC) and iterative recon COMPARISON: Concurrent noncontrast CT brain reported separately. RESULT: BRAIN: Acute change: There is hypoenhancement involving portions of the right MCA territory, including the right insula, compatible with evolving hyperacute versus acute infarct. ASPECT Score = 10 Hemorrhage: No evidence of acute intracranial hemorrhage. ECASS hemorrhagic transformation score = Not applicable Other: The visualized paranasal sinuses are grossly clear. The skull base and imaged soft tissues are unremarkable. CERVICAL/NECK: Counting reference: Craniocervical junction. Alignment: Trace anterolisthesis at C4-C5, most likely related to facet arthrosis. Craniocervical junction: Craniocervical junction is normal. Osseous structures/fracture: No evidence of a lytic or blastic process in the visualized spine. No evidence of acute or chronic fracture. Soft tissues: There is a partially imaged density within the lumen of the mid cervical esophagus, measuring the same density as blood pool. Postsurgical changes along the right neck soft tissues. Lung apices: No focal consolidation or mass in the visualized portions of the lungs. Canal and foramina: No definite evidence of high-grade spinal canal stenosis. CT ARTERIOGRAM: Extracranial Circulation: Aortic Arch: There is a normal branching pattern from the aortic arch. There is no significant stenosis in the innominate artery or imaged proximal subclavian arteries. Cervical Carotid Arteries: The origin of the right common carotid artery is patent, however the right common carotid artery becomes completely occluded in the midportion. This occlusion extends through the entire cervical internal carotid artery into the intracranial segments. Left Common: No significant stenosis. Left Internal Carotid: Moderate plaque at the bifurcation. Left Internal Carotid Stenosis (% by NASCET Criteria): Estimated less than 50%. Cervical Vertebral Arteries: Patency: Bilateral Dominance: Codominant Intracranial Circulation: Anterior Circulation: The right ICA remains occluded through the intracranial segments, extending to the ICA terminus. Occlusion extends to involve the right MCA, including the M1 division and multiple M2 branches, as well as several more distal branches. The right REKHA is occluded at the origin but immediately reconstitutes, presumably via collateral supply through a patent anterior communicating artery. The left intracranial ICA is patent. Posterior Circulation: Patent codominant intracranial vertebral arteries. Patent appearance of the basilar artery and proximal superior cerebellar arteries. Unremarkable appearance of the posterior cerebral arteries. Entry Level Marketing Assistant (topogram) images: Noncontributory IMPRESSION: 1. 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 2. Hypoenhancement involving portions of the right MCA territory, consistent with evolving acute versus hyperacute infarct. 3. No evidence of acute cervical spine fracture. 4. Partially imaged density within the lumen of the mid thoracic esophagus measuring the same density as blood pool. Differential includes ingested contents, mass, or hemorrhage. Recommend dedicated CT chest. (more content not included)... Invalid Interpretation Code [facility] CTA HEAD W IVCONon 4 CTA HEAD W IVCON * * *Final Report* * * DATE OF EXAM: Apr 15 2024 9:37PM [facility] 0022 - CTA HEAD W IVCON / PROCEDURE REASON: Focal neuro deficit, new, fixed, or worsening, < 4.5 hours, stroke suspected * * * * Physician Interpretation * * * * EXAMINATION: CTA HEAD W IVCON, CTA NECK W IVCON, CT C-SPINE W RECON DATA -NB Clinical history provided by the ordering clinician via order question and clinical decision support entries: Aneurysm (accession [id number]), Dissection (accession [id number]). Focal neuro deficit, new, fixed, or worsening, < 4.5 hours, stroke suspected (accession [id number]), Carotid artery dissection (accession [id number]), Neck trauma, intoxicated or obtunded (Age >= 16y) (accession [id number]). Focal neuro deficit, new, fixed, or worsening, < 4.5 hours, stroke suspected. . fall rapid response called. . TECHNIQUE: Next, high resolution axial images were obtained through the head, neck and superior mediastinum following bolus administration of intravenous contrast for CT angiography. 3D maximum intensity projection images were created, reviewed and archived . Reconstructed axial, sagittal, and coronal images of the cervical spine were also performed. MQ: CTBWO_3 MQ: CTAHN_4 MQ: CTCSPWO_5 Contrast: 100 mL Omnipaque 350 IV Dose-Length Product (DLP): 823 mGy*cm. CT Dose Reduction Employed: Automated exposure control(AEC) and iterative recon COMPARISON: Concurrent noncontrast CT brain reported separately. RESULT: BRAIN: Acute change: There is hypoenhancement involving portions of the right MCA territory, including the right insula, compatible with evolving hyperacute versus acute infarct. ASPECT Score = 10 Hemorrhage: No evidence of acute intracranial hemorrhage. ECASS hemorrhagic transformation score = Not applicable Other: The visualized paranasal sinuses are grossly clear. The skull base and imaged soft tissues are unremarkable. CERVICAL/NECK: Counting reference: Craniocervical junction. Alignment: Trace anterolisthesis at C4-C5, most likely related to facet arthrosis. Craniocervical junction: Craniocervical junction is normal. Osseous structures/fracture: No evidence of a lytic or blastic process in the visualized spine. No evidence of acute or chronic fracture. Soft tissues: There is a partially imaged density within the lumen of the mid cervical esophagus, measuring the same density as blood pool. Postsurgical changes along the right neck soft tissues. Lung apices: No focal consolidation or mass in the visualized portions of the lungs. Canal and foramina: No definite evidence of high-grade spinal canal stenosis. CT ARTERIOGRAM: Extracranial Circulation: Aortic Arch: There is a normal branching pattern from the aortic arch. There is no significant stenosis in the innominate artery or imaged proximal subclavian arteries. Cervical Carotid Arteries: The origin of the right common carotid artery is patent, however the right common carotid artery becomes completely occluded in the midportion. This occlusion extends through the entire cervical internal carotid artery into the intracranial segments. Left Common: No significant stenosis. Left Internal Carotid: Moderate plaque at the bifurcation. Left Internal Carotid Stenosis (% by NASCET Criteria): Estimated less than 50%. Cervical Vertebral Arteries: Patency: Bilateral Dominance: Codominant Intracranial Circulation: Anterior Circulation: The right ICA remains occluded through the intracranial segments, extending to the ICA terminus. Occlusion extends to involve the right MCA, including the M1 division and multiple M2 branches, as well as several more distal branches. The right REKHA is occluded at the origin but immediately reconstitutes, presumably via collateral supply through a patent anterior communicating artery. The left intracranial ICA is patent. Posterior Circulation: Patent codominant intracranial vertebral arteries. Patent appearance of the basilar artery and proximal superior cerebellar arteries. Unremarkable appearance of the posterior cerebral arteries. Entry Level Marketing Assistant (topogram) images: Noncontributory IMPRESSION: 1. 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 2. Hypoenhancement involving portions of the right MCA territory, consistent with evolving acute versus hyperacute infarct. 3. No evidence of acute cervical spine fracture. 4. Partially imaged density within the lumen of the mid thoracic esophagus measuring the same density as blood pool. Differential includes ingested contents, mass, or hemorrhage. Recommend ded (more content not included)... Invalid Interpretation Code [facility] CTA NECK W IVCONon 4 CTA NECK W IVCON * * *Final Report* * * DATE OF EXAM: Apr 15 2024 9:37PM [facility] 0024 - CTA NECK W IVCON / PROCEDURE REASON: Carotid artery dissection * * * * Physician Interpretation * * * * EXAMINATION: CTA HEAD W IVCON, CTA NECK W IVCON, CT C-SPINE W RECON DATA -NB Clinical history provided by the ordering clinician via order question and clinical decision support entries: Aneurysm (accession [id number]), Dissection (accession [id number]). Focal neuro deficit, new, fixed, or worsening, < 4.5 hours, stroke suspected (accession [id number]), Carotid artery dissection (accession [id number]), Neck trauma, intoxicated or obtunded (Age >= 16y) (accession [id number]). Focal neuro deficit, new, fixed, or worsening, < 4.5 hours, stroke suspected. . fall rapid response called. . TECHNIQUE: Next, high resolution axial images were obtained through the head, neck and superior mediastinum following bolus administration of intravenous contrast for CT angiography. 3D maximum intensity projection images were created, reviewed and archived . Reconstructed axial, sagittal, and coronal images of the cervical spine were also performed. MQ: CTBWO_3 MQ: CTAHN_4 MQ: CTCSPWO_5 Contrast: 100 mL Omnipaque 350 IV Dose-Length Product (DLP): 823 mGy*cm. CT Dose Reduction Employed: Automated exposure control(AEC) and iterative recon COMPARISON: Concurrent noncontrast CT brain reported separately. RESULT: BRAIN: Acute change: There is hypoenhancement involving portions of the right MCA territory, including the right insula, compatible with evolving hyperacute versus acute infarct. ASPECT Score = 10 Hemorrhage: No evidence of acute intracranial hemorrhage. ECASS hemorrhagic transformation score = Not applicable Other: The visualized paranasal sinuses are grossly clear. The skull base and imaged soft tissues are unremarkable. CERVICAL/NECK: Counting reference: Craniocervical junction. Alignment: Trace anterolisthesis at C4-C5, most likely related to facet arthrosis. Craniocervical junction: Craniocervical junction is normal. Osseous structures/fracture: No evidence of a lytic or blastic process in the visualized spine. No evidence of acute or chronic fracture. Soft tissues: There is a partially imaged density within the lumen of the mid cervical esophagus, measuring the same density as blood pool. Postsurgical changes along the right neck soft tissues. Lung apices: No focal consolidation or mass in the visualized portions of the lungs. Canal and foramina: No definite evidence of high-grade spinal canal stenosis. CT ARTERIOGRAM: Extracranial Circulation: Aortic Arch: There is a normal branching pattern from the aortic arch. There is no significant stenosis in the innominate artery or imaged proximal subclavian arteries. Cervical Carotid Arteries: The origin of the right common carotid artery is patent, however the right common carotid artery becomes completely occluded in the midportion. This occlusion extends through the entire cervical internal carotid artery into the intracranial segments. Left Common: No significant stenosis. Left Internal Carotid: Moderate plaque at the bifurcation. Left Internal Carotid Stenosis (% by NASCET Criteria): Estimated less than 50%. Cervical Vertebral Arteries: Patency: Bilateral Dominance: Codominant Intracranial Circulation: Anterior Circulation: The right ICA remains occluded through the intracranial segments, extending to the ICA terminus. Occlusion extends to involve the right MCA, including the M1 division and multiple M2 branches, as well as several more distal branches. The right REKHA is occluded at the origin but immediately reconstitutes, presumably via collateral supply through a patent anterior communicating artery. The left intracranial ICA is patent. Posterior Circulation: Patent codominant intracranial vertebral arteries. Patent appearance of the basilar artery and proximal superior cerebellar arteries. Unremarkable appearance of the posterior cerebral arteries. Entry Level Marketing Assistant (topogram) images: Noncontributory IMPRESSION: 1. 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 2. Hypoenhancement involving portions of the right MCA territory, consistent with evolving acute versus hyperacute infarct. 3. No evidence of acute cervical spine fracture. 4. Partially imaged density within the lumen of the mid thoracic esophagus measuring the same density as blood pool. Differential includes ingested contents, mass, or hemorrhage. Recommend dedicated CT chest. Anatomic Variant: None. Assume 7 (more content not included)... Invalid Interpretation Code [facility] Comprehensive metabolic 2000 panelon 04-15-2024 Albumin [Mass/Vol] 4.6 g/dL Normal 3.9-4.9 [facility] Comment on above: Order Comment: Speci men Type: BLOOD SPECIMENOrdering Facility: [facility] Address: [address] [place] [address] Performed By: #### 2 4323-8, 93522-1 ####[facility] LABORATORYCLIA [id number] [place] [address] [place] ALP [Catalytic activity/Vol] 78 U/L Normal 38-113 [facility] Comment on above: Order Comment: Speci men Type: BLOOD SPECIMENOrdering Facility: [facility] Address: [address] [place] [address] Performed By: #### 2 4323-8, 20475-6 ####[facility] LABORATORYCLIA [id number] [place] [address] [place] ALT With P-5'-P [Catalytic activity/Vol] 31 U/L Normal 10-54 [facility] Comment on above: Order Comment: Speci men Type: BLOOD SPECIMENOrdering Facility: [facility] Address: [address] [place] [address] Performed By: #### 2 4323-8, 72044-6 ####[facility] LABORATORYCLIA [id number] [address] STATES OF [facility] Anion gap [Moles/Vol] 22 mmol/L High 9-18 [facility] Comment on above: Order Comment: Speci men Type: BLOOD SPECIMENOrdering Facility: [facility] Address: [address] [place] [address] Performed By: #### 2 4323-8, 19353-6 ####[facility] LABORATORYCLIA [id number] [address] [place] AST With P-5'-P [Catalytic activity/Vol] Normal [facility] Comment on above: Order Comment: Speci men Type: BLOOD SPECIMENOrdering Facility: [facility] Address: [address] [place] [address] Result Comment: Unab le to assay due to interference from hemolysis. Suggest reorder as clinically indicated. Performed By: #### 2 4323-8, 42058-0 ####[facility]ATORYCLIA [id number] [address] [place] Bilirubin [Mass/Vol] 0.3 mg/dL Normal 0.2-1.3 [facility] Comment on above: Order Comment: Speci men Type: BLOOD SPECIMENOrdering Facility: [facility] Address: [address] [place] [address] Performed By: #### 2 4323-8, 06501-7 ####[facility]ORATORYCLIA [id number] [place] [address] [place] Calcium [Mass/Vol] 10.0 mg/dL Normal 8.5-10.2 [facility] Comment on above: Order Comment: Speci men Type: BLOOD SPECIMENOrdering Facility: [facility] Address: [address] [place] [address] Performed By: #### 2 4323-8, 31986-0 ####[facility]ORATORYCLIA [id number] [place] [address] [place] Chloride [Moles/Vol] 101 mmol/L Normal 97-105 [facility] Comment on above: Order Comment: Speci men Type: BLOOD SPECIMENOrdering Facility: [facility] Address: [address] [place] [address] Performed By: #### 2 4323-8, 41162-9 ####[facility]ORATORYCLIA [id number] [place] [address] [place] CO2 [Moles/Vol] 14 mmol/L Low 22-30 [facility] Comment on above: Order Comment: Speci men Type: BLOOD SPECIMENOrdering Facility: [facility] Address: [address] [place] [address] Performed By: #### 2 4323-8, 02315-7 ####[facility]ATORYCLIA [id number] [place] [address] [place] Creatinine [Mass/Vol] 1.70 mg/dL High 0.73-1.22 [facility] Comment on above: Order Comment: Speci men Type: BLOOD SPECIMENOrdering Facility: [facility] Address: [address] [place] [address] Performed By: #### 2 4323-8, 16234-6 ####[facility]ORATORYCLIA [id number] [place] [address] [place] Creatinine and Glomerular filtration rate.predicted panel (S/P/Bld) 42 mL/min/1.73m??? Low >=60 [facility] Comment on above: Order Comment: Lyndsey eller Type: BLOOD SPECIMENOrdering Facility: [facility] Address: [address] [place] [address] Result Comment: Bianca mated Glomerular Filtration Rate (eGFR) is calculated using the 2020 CKD-EPI creatinine equation. This equation utilizes serum creatinine, sex, and age as parameters. The creatinine assay has traceable calibration to isotope dilution-mass spectrometry. Refer to KDIGO guidelines for clinical interpretation. In patients with unstable renal function, e.g. those with acute kidney injury, the eGFR may not accurately reflect actual GFR. Performed By: #### 2 4323-8, 75669-3 ####[facility] LABORATORYCLIA [id number] [place] [address] [place] Glucose [Mass/Vol] 141 mg/dL High 74-99 [facility] Comment on above: Order Comment: Lyndsey eller Type: BLOOD SPECIMENOrdering Facility: [facility] Address: [address] [place] [address] Result Comment: The [place] [employer] (ADA) provides guidance for cutoff values for fasting glucose and random glucose. The ADA defines fasting as no caloric intake for at least 8 hours. Fasting plasma glucose results between 100 to 125 mg/dL indicate increased risk for diabetes (prediabetes). Fasting plasma glucose results greater than or equal to 126 mg/dL meet the criteria for diagnosis of diabetes. In the absence of unequivocal hyperglycemia, results should be confirmed by repeat testing. In a patient with classic symptoms of hyperglycemia or hyperglycemic crisis, random plasma glucose results greater than or equal to 200 mg/dL meet the criteria for diagnosis of diabetes. Reference: Standards of Medical Care in Diabetes 2016, [place] [employer]. Diabetes Care. 2016.39(Suppl 1). Performed By: #### 2 4323-8, 50120-8 ####[facility] LABORATORYCLIA [id number] [place] [address] [place] Potassium [Moles/Vol] 4.5 mmol/L Normal 3.7-5.1 [facility] Comment on above: Order Comment: Speci men Type: BLOOD SPECIMENOrdering Facility: [facility] Address: [address] [place] [address] Performed By: #### 2 4323-8, 17169-4 ####[facility]ORATORYCLIA [id number] [place] [address] [place] Protein [Mass/Vol] 7.3 g/dL Normal 6.3-8.0 [facility] Comment on above: Order Comment: Speci men Type: BLOOD SPECIMENOrdering Facility: [facility] Address: [address] [place] [address] Performed By: #### 2 4323-8, 47917-2 ####[facility]ORATORYCLIA [id number] [address] [place] Sodium [Moles/Vol] 137 mmol/L Normal 136-144 [facility] Comment on above: Order Comment: Speci men Type: BLOOD SPECIMENOrdering Facility: [facility] Address: [address] [place] [address] Performed By: #### 2 4323-8, 56514-1 ####[facility]ORATORYCLIA [id number] [address] [place] Urea nitrogen [Mass/Vol] 44 mg/dL High 9-24 [facility] Comment on above: Order Comment: Speci men Type: BLOOD SPECIMENOrdering Facility: [facility] Address: [address] [place] [address] Performed By: #### 2 4323-8, 24392-5 ####[facility]ATORYCLIA [id number] [place] [address] [place] ED NOTEon 04-15-2024 ED NOTE HNO ID: [id number] Author: FÉLIX DE LA VEGA RN Service: ? Author Type: Registered Nurse Type: ED Notes Filed: 04/15/2024 22:46 Note Text: Departing to NIL, pt on portable monitor and NC. Pt's belongings given to daughter. [facility] ED NOTE HNO ID: [id number] Author: FÉLIX DE LA VEGA RN Service: ? Author Type: Registered Nurse Type: ED Notes Filed: 04/15/2024 22:07 Note Text: Report given to Diana RN from [facility]. [facility] ED NOTE HNO ID: [id number] Author: FÉLIX DE LA VEGA RN Service: ? Author Type: Registered Nurse Type: ED Notes Filed: 04/15/2024 22:05 Note Text: 1mg IV ativan given per verbal order [facility] ED NOTE HNO ID: [id number] Author: FÉLIX DE LA VEGA RN Service: ? Author Type: Registered Nurse Type: ED Notes Filed: 04/15/2024 21:57 Note Text: 18mg TNK given now [facility] ED NOTE HNO ID: [id number] Author: FÉLIX DE LA VEGA RN Service: ? Author Type: Registered Nurse Type: ED Notes Filed: 04/15/2024 21:55 Note Text: 1mg IV ativan given per verbal order from Dr. Ovalles due to pt agitation [facility] ED NOTE HNO ID: [id number] Author: FÉLIX DE LA VEGA RN Service: ? Author Type: Registered Nurse Type: ED Notes Filed: 04/15/2024 21:50 Note Text: Telestroke doctor stated they are preparing the NIL and waiting on the team. Awaiting INR results to decide on TNK administration per the telestroke Dr. Kenisha Beard [facility] ED NOTE HNO ID: [id number] Author: FÉLIX DE LA VEGA RN Service: ? Author Type: Registered Nurse Type: ED Notes Filed: 04/15/2024 21:35 Note Text: 1L NS bolus started per verbal order [facility] ED NOTE HNO ID: [id number] Author: FANTA GALE RN Service: ? Author Type: Registered Nurse Type: ED Notes Filed: 04/15/2024 21:14 Note Text: Bed: 25-ED Expected date: Expected time: Means of arrival: Comments: RR team [facility] ED NOTE HNO ID: [id number] Author: VANGIE PRADHAN RN Service: Emergency Medicine Author Type: Registered Nurse Type: ED Notes Filed: 04/15/2024 21:13 Note Text: 6.2 lactate [facility] ED NOTE HNO ID: [id number] Author: VANGIE PRADHAN RN Service: Emergency Medicine Author Type: Registered Nurse Type: ED Notes Filed: 04/15/2024 21:09 Note Text: 1 of Ativan given at this time [facility] ED NOTE HNO ID: [id number] Author: VANGIE PRADHAN RN Service: Emergency Medicine Author Type: Registered Nurse Type: ED Notes Filed: 04/15/2024 21:09 Note Text: 5 of Haldol given at this time [facility] ED NOTE HNO ID: [id number] Author: VANGIE PRADHAN RN Service: Emergency Medicine Author Type: Registered Nurse Type: ED Notes Filed: 04/15/2024 21:07 Note Text: BG 129 [facility] ED NOTE HNO ID: [id number] Author: VANGIE PRADHAN RN Service: Emergency Medicine Author Type: Registered Nurse Type: ED Notes Filed: 04/15/2024 21:04 Note Text: Pt placed on laboratory monitor at this time [facility] ED NOTE HNO ID: [id number] Author: VANGIE PRADHAN RN Service: Emergency Medicine Author Type: Registered Nurse Type: ED Notes Filed: 04/15/2024 21:05 Note Text: Attending Deborah and ED resident Renato at bedside [facility] ED PROV NOTEon 04-15-2024 ED PROV NOTE HNO ID: [id number] Author: GIOVANNI OVALLES MD Service: Emergency Medicine Author Type: Resident Type: ED Provider Notes Filed: 04/19/2024 07:55 Note Text: Attestation signed by Giovanni Ovalles MD at 04/19/2024 7:55 AM Attending Note I evaluated the patient and personally participated in the serna components. I agree with the resident's findings and plan as documented and have discussed the case and management of the patient's care with the resident. Patient arrives via rapid alert when he was found down in the hospital room visiting his . Patient noted to have focal neurologic deficits with weakness of the left upper and lower extremity and aphasia. 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 Stroke neurology at bedside advised TNK which was administered. Patient's daughter was updated of plan and patient was then transported for thrombectomy and then admitted. Patient was given Haldol and Ativan for agitation as well as started on Precedex. Patient history and exam was limited due to patient's critical situation and deficits. History was also limited due to patient's chart marked for merge. Critical Care I spent a total of 60 minutes of critical care time in the evaluation and management of this patient. 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 The patient received TNK and Consultation by Neurology during the time that critical care was provided.I discussed the plan of care with the RESIDENT and agree with the findings documented. Critical care time excludes separately billed procedures. Giovanni Ovalles MD Signature: Giovanni Oavlles MD Date: 04/19/2024 Time: 7:51 AM ED Provider Note Patient Name: Jonathon Perales : 1950 SERVICE DATE: 04/15/24 History Patient presents with: Potential Stroke Symptoms: Pt arrives from 5200 after visiting and being found on floor by nurse. LKW approx 1900 The patient is a 73-year-old male with unknown past medical history who presents as a rapid response patient to the emergency department after he was found down while visiting his who is a patient the hospital. It is reported the patient was found down with an abrasion on his head and was acting very agitated. Now the patient has hemineglect, disconjugate gaze, inability to move the left side of his body. No past medical history on file. No past surgical history on file. No family history on file. Social History Tobacco Use - Smoking status: Not on file - Smokeless tobacco: Not on file Substance and Sexual Activity - Alcohol use: Not on file - Drug use: Not on file - Sexual activity: Not on file ALLERGIES No Known Allergies Review of Systems Reason unable to perform ROS: Emergent situation. Physical Exam Vitals BP Pulse Temp Temp src Resp SpO2 Weight Height 04/15/24211004/15/24211104/15/24213504/15/24213504/15/24211104/15/24211104/15/242135 -- 147/77 78 36.4 ?C (97.6 ?F) Oral 24 96 % 73.1 kg (161 lb 2.5 oz) Physical Exam Vitals and nursing note reviewed. Constitutional: General: He is not in acute distress. Appearance: Normal appearance. HENT: Head: Normocephalic and atraumatic. Nose: Nose normal. No congestion or rhinorrhea. Mouth/Throat: Mouth: Mucous membranes are moist. Pharynx: No oropharyngeal exudate or posterior oropharyngeal erythema. Eyes: General: No scleral icterus. Right eye: No discharge. Left eye: No discharge. Conjunctiva/sclera: Conjunctivae normal. Cardiovascular: Rate and Rhythm: Normal rate and regular rhythm. Pulses: Normal pulses. Heart sounds: Normal heart sounds. No murmur heard. No friction rub. No gallop. Pulmonary: Effort: Pulmonary effort is normal. No respiratory distress. Breath sounds: Normal breath sounds. No wheezing or rhonchi. Chest: Chest wall: No tenderness. Abdominal: General: There is no distension. Tenderness: There is no abdominal tenderness. There is no right CVA tenderness, left CVA tenderness or guarding. Musculoskeletal: General: No swelling or signs of injury. Cervical back: Normal range of motion. No rigidity. Right lower leg: No edema. Left lower leg: No edema. Skin: General: Skin is warm. Capillary Refill: Capillary refill takes less than 2 seconds. Coloration: Skin is not jaundiced or pale. Findings: No bruising, erythema or rash. Neurological: Mental Status: He is alert. He is disoriented. Motor: Weakness present. Diagnostic Testing ED Labs Ordered and Reviewed GLUCOSE, BLOOD (POC) - Abnormal; Notable for the following components: Result (more content not included)... [facility] Ethanol SerPl-mCncon 024 Ethanol [Mass/Vol] mg/dL Normal <11 [facility] Comment on above: Order Comment: Lyndsey eller Type: BLOOD SPECIMENOrdering Facility: [facility] Address: [address] [place] [address] Performed By: #### 5 643-2 ####[facility] LABORATORYCLIA [id number] [address] [place] HIGH SENSITIVITY TROPONIN T (INITIAL)on 04-15-2024 Troponin T.cardiac High sensitivity method [Mass/Vol] 35 ng/L High <12 [facility] Comment on above: Order Comment: Lyndsey eller Type: BLOOD SPECIMENOrdering Facility: [facility] Address: [address] [place] [address] Result Comment: When assessing risk for acute coronary syndromes: In patients undergoing blood draw greater than or equal to 2 hours from symptom onset, with history of very low to moderate risk and non-ischemic ECG, an initial hs-Troponin T less than 12 ng/L AND a 1 hour delta hs-Troponin T less than 3 ng/L should be considered very low risk for 30 day MACE. Performed By: #### L [id number] ####[facility] LABORATORYCLIA [id number] [address] [place] PT panel Coag (PPP)on 2023 INR Coag (PPP) [Relative time] 0.9 {INR} Normal 0.9-1.3 [facility] Comment on above: Order Comment: Lyndsey eller Type: BLOOD SPECIMENOrdering Facility: [facility] Address: [address] [place] [address] Result Comment: Violette min K Antagonist (VKA) Therapeutic Range: INR 2 to 3 (Target INR of 2.5) Note: For patients treated with VKA drugs, such as warfarin, the [employer] 2012 Guideline recommends a therapeutic INR range of 2 to 3 (target INR of 2.5). This recommendation includes high-risk patients with antiphospholipid syndrome with previous arterial or venous thromboembolism, current-generation mechanical or bioprosthetic aortic heart valve replacement. Note: Patients with mechanical aortic valve replacement and additional risk factors for thromboembolic events (atrial fibrillation, previous thromboembolism, LV dysfunction, hypercoagulable conditions) or an older generation mechanical AVR (i.e., ball in-Cage) or any mechanical MVR should have a INR therapeutic range of 2.5 to 3.5 (target INR of 3). Dasia GH, et al. Chest 2012, 141:7S-47S Janice RA, et al. JAC 2017, 70: 252-289 Performed By: #### 3 4528-0 ####[facility] [id number] [address] [place] PT Coag (PPP) [Time] 10.0 s Normal 9.7-13.0 [facility] Comment on above: Order Comment: Speci rafita Type: BLOOD SPECIMENOrdering Facility: [facility] Address: [address] [place] [address] Performed By: #### 3 4528-0 ####[facility] [id number] [address] Procalcitonin SerPl-mCncon 0 04-15-2024 Procalcitonin [Mass/Vol] 0.14 ng/mL High <0.09 [facility] Comment on above: Order Comment: Specmarine eller Type: BLOOD SPECIMENOrdering Facility: [facility] Address: [address] [place] [address] Result Comment: For a guided interpretation of test results, please visit the Change in Procalcitonin Calculator, [email or web address]. Performed By: #### 2 4323-8, 44833-5 ####[facility] LABORATORYCLIA [id number] [address] [place] [facility] No Panel InformationOrdered By: Jesse Steele on 04-14-2024 [employer] Phone: XR Hip - left 3 Viewson 03-19 Patient Name: JONATHON DEWTIT : 1950 Exam Date/Time: 04/14/2024 00:44 Procedure: XR HIP 2 OR 3 VW LEFT Ordering Provider: CASTRO NICHOLAS Reason For Exam: left low back pain, left hip pain CLINICAL INFORMATION: Low back pain. Left hip pain. LUMBAR SPINE: AP, lateral, and coned-down L5-S1 views of the lumbosacral spine are provided. The examination is compared to a previous study dated 02/19/2014. FINDINGS: There is a very mild levoscoliosis centered at L3. Disc space narrowing is most pronounced at L3-4. Vertebral body heights are maintained. Posterior facet hypertrophy is evident at L3-4, L4-5, and L5-S1. [facility] RADIOLOGY SYSTEM Jesse Steele MD - 04/14/2024 Patient Name: JONATHON PERALES : 1950 Exam Date/Time: 04/14/2024 00:44 Procedure: XR HIP 2 OR 3 VW LEFT Ordering Provider: CASTRO NICHOLAS Reason For Exam: left low back pain, left hip pain CLINICAL INFORMATION: Low back pain. Left hip pain. LUMBAR SPINE: AP, lateral, and coned-down L5-S1 views of the lumbosacral spine are provided. The examination is compared to a previous study dated 02/19/2014. FINDINGS: There is a very mild levoscoliosis centered at L3. Disc space narrowing is most pronounced at L3-4. Vertebral body heights are maintained. Posterior facet hypertrophy is evident at L3-4, L4-5, and L5-S1. IMPRESSION: 1. 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 These have progressed significantly when compared to the previous study (10 years prior). 2. No compression fractures. 3. No acute radiographic findings. LEFT HIP: AP view of the pelvis and AP and frog-leg lateral views of the left hip are provided. The examination is compared to a previous study dated 02/19/2014. FINDINGS: Mild symmetric degenerative changes are noted about both hips. There is no fracture or dislocation. The sacroiliac joints are symmetric bilaterally without focal abnormality. The bone mineralization is within normal limits. IMPRESSION: 1. Mild symmetric degenerative changes. 2. No acute findings. Report Dictated on Electronically Signed By: Jesse Steele MD Electronically Signed Date/Time: 04/14/2024 12:49 AM EDT [facility] XR Lumbar spine 2 or 3 Views on 04-14-2024 Patient Name: JONATHON DEWITT : 1950 Exam Date/Time: 04/14/2024 00:44 Procedure: XR LUMBAR SPINE 2-3 VIEWS Ordering Provider: CASTRO NICHOLAS Reason For Exam: left low back pain, left hip pain, concern for sciatica, eval for pathologic fracture CLINICAL INFORMATION: Low back pain. Left hip pain. LUMBAR SPINE: AP, lateral, and coned-down L5-S1 views of the lumbosacral spine are provided. The examination is compared to a previous study dated 02/19/2014. FINDINGS: There is a very mild levoscoliosis centered at L3. Disc space narrowing is most pronounced at L3-4. Vertebral body heights are maintained. Posterior facet hypertrophy is evident at L3-4, L4-5, and L5-S1. [facility] Jesse Steele MD - 04/14/2024 Patient Name: JONATHON PERALES : 1950 Exam Date/Time: 04/14/2024 00:44 Procedure: XR LUMBAR SPINE 2-3 VIEWS Ordering Provider: CASTRO NICHOLAS Reason For Exam: left low back pain, left hip pain, concern for sciatica, eval for pathologic fracture CLINICAL INFORMATION: Low back pain. Left hip pain. LUMBAR SPINE: AP, lateral, and coned-down L5-S1 views of the lumbosacral spine are provided. The examination is compared to a previous study dated 02/19/2014. FINDINGS: There is a very mild levoscoliosis centered at L3. Disc space narrowing is most pronounced at L3-4. Vertebral body heights are maintained. Posterior facet hypertrophy is evident at L3-4, L4-5, and L5-S1. IMPRESSION: 1. 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 These have progressed significantly when compared to the previous study (10 years prior). 2. No compression fractures. 3. No acute radiographic findings. LEFT HIP: AP view of the pelvis and AP and frog-leg lateral views of the left hip are provided. The examination is compared to a previous study dated 02/19/2014. FINDINGS: Mild symmetric degenerative changes are noted about both hips. There is no fracture or dislocation. The sacroiliac joints are symmetric bilaterally without focal abnormality. The bone mineralization is within normal limits. IMPRESSION: 1. Mild symmetric degenerative changes. 2. No acute findings. Report Dictated on Electronically Signed By: Jesse Steele MD Electronically Signed Date/Time: 04/14/2024 12:49 AM EDT [facility] ED Provider Noteon ED Provider Note Emergency Department Encounter [facility] EMERGENCY DEPT Patient: Jonathon Perales : 1950 Date of Evaluation: 04/13/2024 ED Provider: Russ Castro MD CHIEF COMPLAINT: Left low back pain Chief Complaint Patient presents with Back Pain Hip Pain Patient coming in with back pain and left hip pain. Patient denies any injury. Was seen for the same thing last week and was to follow up Saturday with PCP but pain worsened today. 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 HPI: Jonathon Perales is a 73 y.o. male with PMH per EMR including hyperlipidemia, hypertension, presents with concern for left low back pain. Patient reports 1 week ago he twisted which resulted in acute pain in the left low back radiation to the left hip and occasional shooting down his left leg, he reports symptoms are persistent, worse with nonspecific positional change, he denies associated nausea vomiting, fever chills, chest pain, shortness of breath, neck pain, pain elsewhere through the back, abdominal pain, dysuria hematuria or frequency, numbness or weakness or pain throughout the extremities otherwise. Patient denies history of intravenous drug use ever, fever, recent spine surgery or procedure, urinary incontinence or retention, alcohol abuse, diabetes, multiple visits for the symptoms. Patient denies antiplatelet or anticoagulation. REVIEW OF SYSTEMS: Pertinent positives and negatives as per HPI. HISTORIES: PAST MEDICAL HISTORY: as per HPI SOCIAL HISTORY: As per HPI MEDICATIONS: Nursing notes and EMR reviewed ALLERGIES: Nursing notes and EMR reviewed PHYSICAL EXAM: Vital signs: reviewed General: no apparent discomfort, well appearing Eyes: no conjunctival injection, eyes tracking HEENT: airway patent, mucous membranes moist Neck: No nuchal rigidity, no limitation range of motion including flexion and extension, no neck tenderness Cardiovascular: regular rhythm, normal rate, symmetrical DP and PT pulses, bilateral feet warm and well-perfused, bilateral hands warm and well-perfused Respiratory: non-labored breathing, breath sounds clear Gastrointestinal: soft, non-distended, non-tender to deep palpation throughout, no rigidity or guarding back: Reproducible tenderness in the left lumbar paraspinal region without palpable deformity, no rash or skin lesion, no midline thoracic or lumbar spinal tenderness step-offs or deformities Extremities: no obvious deformity, non edematous Integumentary: warm, dry Neurologic: Alert and oriented, nonslurred speech, answering questions appropriately Sensory: Back of head and neck [intact] Inner thigh [intact bilaterally] Throughout hands [intact bilaterally] Throughout feet [intact bilaterally] Motor: Knee extension [intact bilaterally] Knee flexion [intact bilaterally] Ankle dorsiflexion [intact bilaterally] Point great toe up [intact bilaterally] Plantar flex toes [intact bilaterally] Shoulder abduction [intact bilaterally] Elbow flexion [intact bilaterally] Elbow extension [intact bilaterally] Wrist flexion [intact bilaterally] Wrist extension [intact bilaterally] 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 male who presents as above left low back pain with radiation to the left hip, and occasionally down the left leg, arrives afebrile with reassuring vitals, well-appearing, neurovascular exam benign, abdominal exam benign, presentation concerning for sciatica, herniated disc, lesser suspicion for pathologic fracture, clinically I do not suspect acute spinal cord compressive process including cauda equina, occult spinal infectious process, acute vascular process, ureterolithiasis urinary tract infection, or acute intra-abdominal process. Discussed management, patient agrees to obtain L-spine and left hip/pelvis x-ray to evaluate for fracture, discussed risks and benefit of treatment with steroids, patient elects to initiate course of prednisone, apply lidocaine patch, and treat with Toradol. Left hip x-ray obtained, interpreted per radiologist mild symmetric degenerative change, no acute findings L spine x-ray obtained, interpreted per radiologist moderate degenerative change in the mid and lower lumbar spine progressed significantly compared to prior study 10 years prior, no compression fracture Patient and family informed of results, discussed further management, they are in agreement with plan for discharge, recommend mandatory PCP follow-up in the next 2 to 5 days for close monitoring being treated with steroid, as well as further symptom control, recommend orthospi (more content not included)... Normal [facility] XR Hip - left 3 Viewson 03-19 Radiology Study observation (narrative) [facility] alth XR Lumbar spine 2 or 3 Views on 04-13-2024 Radiology Study observation (narrative) [facility] alth CT Brain wo contraston 10-06 CT Brain wo contrast CT HEAD AND MAXILLOFACIAL BONES: CLINICAL INDICATION: Trauma, pain TECHNIQUE: Transaxial CT sequence performed through the head and maxillofacial bones with 3 mm reconstruction. Sagittal and Coronal reconstruction images included. Dose reduction was employed with automated exposure control. COMPARISON: None FINDINGS: Ventricles and Extra-axial spaces: Normal in size and morphology for the patient's age. No abnormal extracerebral collection identified. Cerebral and cerebellar parenchyma: Chronic appearing left parietal infarct. Mild patchy hypodensity in the periventricular white matter suggestive of chronic small vessel ischemic changes.. Hemorrhage: None Brainstem: No significant abnormality Visualized Paranasal sinuses: Frothy fluid in the right frontal sinus. Mild mucosal thickening of the ethmoid air cells. Paranasal sinuses are otherwise well aerated. The nasal septum is mildly deviated to the left with abrupt angulation of the septum. Mastoid air cells: Well-aerated Visualized Orbits: No acute fractures Calvarium and skull base: No acute fractures Maxillofacial bones: Bilateral nasal bone fractures with adjacent soft tissue edema and subcutaneous emphysema. IMPRESSION: 1. No acute intracranial hemorrhage or territorial infarct. Chronic appearing left parietal infarct. 2. Bilateral nasal bone fractures with adjacent soft tissue edema and subcutaneous emphysema, acute in appearance. 3. Age-indeterminate nasal septal fracture. CT CERVICAL SPINE: CLINICAL INDICATION: Fall, pain TECHNIQUE: Transaxial sequence performed through the cervical spine. Multiplanar reconstruction imaging was performed. Dose reduction was employed with automated exposure control. COMPARISON: None FINDINGS: Predental space and prevertebral soft tissues are within normal limits. Vertebral height is well maintained. No acute fractures. There is reversal of normal cervical lordosis centered at the C5 level. 2 mm anterolisthesis of C4 on C5. Moderate degenerative disc space loss at the C5-6 level with endplate osteophytosis demonstrating mild central canal narrowing. No other significant central canal narrowing. Uncovertebral hypertrophy and facet arthropathy demonstrating areas of mild to moderate neural foraminal narrowing within the mid cervical spine. Mild pulmonary emphysema. The soft tissues are otherwise within normal limits. IMPRESSION: No acute osseous abnormality of the cervical spine Report Dictated on Authenticated by: Ana Eastman On: 10/06/2023 22:25 Read by: ANA EASTMAN MD, MD Date: 10/06/2023 22:[address] [facility] [address] Cervical Spine wo contras ton 10-06-2023 CT Cervical Spine wo contrast CT HEAD AND MAXILLOFACIAL BONES: CLINICAL INDICATION: Trauma, pain TECHNIQUE: Transaxial CT sequence performed through the head and maxillofacial bones with 3 mm reconstruction. Sagittal and Coronal reconstruction images included. Dose reduction was employed with automated exposure control. COMPARISON: None FINDINGS: Ventricles and Extra-axial spaces: Normal in size and morphology for the patient's age. No abnormal extracerebral collection identified. Cerebral and cerebellar parenchyma: Chronic appearing left parietal infarct. Mild patchy hypodensity in the periventricular white matter suggestive of chronic small vessel ischemic changes.. Hemorrhage: None Brainstem: No significant abnormality Visualized Paranasal sinuses: Frothy fluid in the right frontal sinus. Mild mucosal thickening of the ethmoid air cells. Paranasal sinuses are otherwise well aerated. The nasal septum is mildly deviated to the left with abrupt angulation of the septum. Mastoid air cells: Well-aerated Visualized Orbits: No acute fractures Calvarium and skull base: No acute fractures Maxillofacial bones: Bilateral nasal bone fractures with adjacent soft tissue edema and subcutaneous emphysema. IMPRESSION: 1. No acute intracranial hemorrhage or territorial infarct. Chronic appearing left parietal infarct. 2. Bilateral nasal bone fractures with adjacent soft tissue edema and subcutaneous emphysema, acute in appearance. 3. Age-indeterminate nasal septal fracture. CT CERVICAL SPINE: CLINICAL INDICATION: Fall, pain TECHNIQUE: Transaxial sequence performed through the cervical spine. Multiplanar reconstruction imaging was performed. Dose reduction was employed with automated exposure control. COMPARISON: None FINDINGS: Predental space and prevertebral soft tissues are within normal limits. Vertebral height is well maintained. No acute fractures. There is reversal of normal cervical lordosis centered at the C5 level. 2 mm anterolisthesis of C4 on C5. Moderate degenerative disc space loss at the C5-6 level with endplate osteophytosis demonstrating mild central canal narrowing. No other significant central canal narrowing. Uncovertebral hypertrophy and facet arthropathy demonstrating areas of mild to moderate neural foraminal narrowing within the mid cervical spine. Mild pulmonary emphysema. The soft tissues are otherwise within normal limits. IMPRESSION: No acute osseous abnormality of the cervical spine Report Dictated on Authenticated by: Ana Eastman On: 10/06/2023 22:25 Read by: ANA EASTMAN MD, MD Date: 10/06/2023 22:[address] [facility] [address] Maxillofacial wo contrast on 10-06-2023 CT Maxill[address]acial wo contrast CT HEAD AND MAXILLOFACIAL BONES: CLINICAL INDICATION: Trauma, pain TECHNIQUE: Transaxial CT sequence performed through the head and maxillofacial bones with 3 mm reconstruction. Sagittal and Coronal reconstruction images included. Dose reduction was employed with automated exposure control. COMPARISON: None FINDINGS: Ventricles and Extra-axial spaces: Normal in size and morphology for the patient's age. No abnormal extracerebral collection identified. Cerebral and cerebellar parenchyma: Chronic appearing left parietal infarct. Mild patchy hypodensity in the periventricular white matter suggestive of chronic small vessel ischemic changes.. Hemorrhage: None Brainstem: No significant abnormality Visualized Paranasal sinuses: Frothy fluid in the right frontal sinus. Mild mucosal thickening of the ethmoid air cells. Paranasal sinuses are otherwise well aerated. The nasal septum is mildly deviated to the left with abrupt angulation of the septum. Mastoid air cells: Well-aerated Visualized Orbits: No acute fractures Calvarium and skull base: No acute fractures Maxillofacial bones: Bilateral nasal bone fractures with adjacent soft tissue edema and subcutaneous emphysema. IMPRESSION: 1. No acute intracranial hemorrhage or territorial infarct. Chronic appearing left parietal infarct. 2. Bilateral nasal bone fractures with adjacent soft tissue edema and subcutaneous emphysema, acute in appearance. 3. Age-indeterminate nasal septal fracture. CT CERVICAL SPINE: CLINICAL INDICATION: Fall, pain TECHNIQUE: Transaxial sequence performed through the cervical spine. Multiplanar reconstruction imaging was performed. Dose reduction was employed with automated exposure control. COMPARISON: None FINDINGS: Predental space and prevertebral soft tissues are within normal limits. Vertebral height is well maintained. No acute fractures. There is reversal of normal cervical lordosis centered at the C5 level. 2 mm anterolisthesis of C4 on C5. Moderate degenerative disc space loss at the C5-6 level with endplate osteophytosis demonstrating mild central canal narrowing. No other significant central canal narrowing. Uncovertebral hypertrophy and facet arthropathy demonstrating areas of mild to moderate neural foraminal narrowing within the mid cervical spine. Mild pulmonary emphysema. The soft tissues are otherwise within normal limits. IMPRESSION: No acute osseous abnormality of the cervical spine Report Dictated on Authenticated by: Ana Eastman On: 10/06/2023 22:25 Read by: ANA EASTMAN MD, MD Date: 10/06/2023 22:25 Normal [facility] CBC panel Auto (Bld)on 12-26 Erythrocyte distribution width (RBC) [Ratio] 11.8 % 11.5 - 15.0 % [facility] Hematocrit (Bld) [Volume fraction] 45.9 % 39.0 - 51.0 % [facility] Hemoglobin (Bld) [Mass/Vol] 14.9 g/dL 13.0 - 17.0 g/dL [facility] MCH (RBC) [Entitic mass] 33.0 pg 26.0 - 34.[address] [facility] MCHC (RBC) [Mass/Vol] 32.5 g/dL 30.5 - 36.0 g/dL [facility] MCV (RBC) [Entitic vol] 101.8 fL High 80.0 - 100.[address] [facility] Nucleated RBC (Bld) [#/Vol] <0.01 k/uL [facility] Platelet mean volume (Bld) [Entitic vol] 10.3 fL 9.0 - 12.[address] [facility] Platelets (Bld) [#/Vol] 244 10*3/uL 150 - 400 k/uL [facility] RBC (Bld) [#/Vol] 4.51 10*6/uL 4.20 - 6.0 0 m/uL [facility] WBC (Bld) [#/Vol] 7.84 10*3/uL 3.70 - 11.00 k/uL [facility] Comprehensive metabolic 2000 panelon 12-26-2022 Albumin [Mass/Vol] 4.2 g/dL 3.9 - 4.9 g/dL [facility] ALP [Catalytic activity/Vol] 78 U/L 38 - 113 U/L [facility] ALT With P-5'-P [Catalytic activity/Vol] 11 U/L 10 - 54 U/L [facility] Anion gap [Moles/Vol] 11 mmol/L 9 - 18 mmol/L [facility] AST With P-5'-P [Catalytic activity/Vol] 18 U/L 14 - 40 U/L [facility] Bilirubin [Mass/Vol] 0.2 mg/dL 0.2 - 1 .3 mg/dL [facility] Calcium [Mass/Vol] 9.4 mg/dL 8.5 - 10. 2 mg/dL [facility] Chloride [Moles/Vol] 105 mmol/L 97 - 10 5 mmol/L [facility] CO2 [Moles/Vol] 25 mmol/L 22 - 30 mmol/L [facility] Creatinine [Mass/Vol] 1.34 mg/dL High 0.73 - 1.22 mg/dL [facility] Estimated Glomerular Filtration Rate 56 mL/min/1.73m Low >=60 mL/min/1.[address] [facility] Glucose [Mass/Vol] 93 mg/dL 74 - 99 mg/dL [facility] Potassium [Moles/Vol] 4.8 mmol/L 3.7 - 5.1 mmol/L [facility] Protein [Mass/Vol] 6.8 g/dL 6.3 - 8.0 g/dL [facility] Sodium [Moles/Vol] 141 mmol/L 136 - 144 mmol/L [facility] Urea nitrogen [Mass/Vol] 22 mg/dL 9 - 24 mg/dL [facility] Lipid 1996 panelon Cholesterol [Mass/Vol] 185 mg/dL <200 mg/dL [facility] Cholesterol in HDL [Mass/Vol] 51 mg/dL >39 mg/dL [facility] Cholesterol in LDL [Mass/Vol] 84 mg/dL <100 mg/dL [facility] Cholesterol in LDL/Cholesterol in HDL [Mass ratio] 1.65 {ratio} <2.[address] [facility] Cholesterol in VLDL [Mass/Vol] 50 mg/dL High <30 mg/dL [facility] Cholesterol non HDL [Mass/Vol] 134 mg/dL High <130 mg/dL [facility] Cholesterol.total/Geno sterol in HDL [Mass ratio] 3.63 {ratio} <5.[address] [facility] Fasting Time [address] [facility] Triglyceride [Mass/Vol] 250 mg/dL High <150 mg/dL [facility] URIC ACID BLOODon 12-26-2022 Urate [Mass/Vol] 7.2 mg/dL 4.0 - 8.1 mg/dL [facility] MRI Brain w/o Contraston MRI Brain w/o Contrast [facility]: [id number] Imaging ACCESSION EXAM DATE/TIME PROCEDURE ORDERING PROVIDER [id number] 05/15/2022 10:06 EDT MRI Brain w/o Contrast ALEM BOBO CPT code 71320 Reason For Exam (MRI Brain w/o Contrast) cognitive impairment Report MRI BRAIN WITHOUT CONTRAST INDICATIONS: cognitive impairment COMPARISON: None TECHNIQUE: Multiplanar, multisequence MRI of the brain was performed without contrast. FINDINGS: Parenchyma: No evidence of acute infarction. No mass, fluid collection, or intracranial hemorrhage. A wedge-shaped area of encephalomalacia in the lateral and posterior aspects of the left parietal lobe is consistent with remote infarct. The area of insufflation also involved also involve the left cuneus. There are also several small areas of encephalomalacia throughout the left cerebral hemisphere, compatible with remote infarcts. A small cortical area of encephalomalacia is present along the left superior frontal sulcus. There is also a single focus of remote microhemorrhage in the subcortical white matter of the right parietal lobe on the gradient echo series. White Matter: Scattered small patchy foci of nonspecific T2/FLAIR hyperintensity in the supratentorial white matter. Ventricles and sulci: Moderate generalized brain parenchymal volume loss with mild proportionate ventricular enlargement. No specific lobar predominance. Skull base: Normal appearance of the pituitary gland. Normal position of the cerebellar tonsils. Vessels: The major intracranial flow voids are preserved. Extracranial structures: Normal orbits. No extracranial soft tissue abnormalities. Sinuses/mastoids: Clear Bones: No pathologic marrow infiltration. IMPRESSION: Magnetic Resonance Imaging Report 1. No acute intracranial abnormalities. 2. 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 3. Moderate generalized brain parenchymal volume loss without specific lobar predominance. Report Dictated on Final Dictated: 05/16/2022 1:54 pm Dictating Physician: MD HOLCOMB THOMAS Signed Date and Time: 05/16/2022 2:01 pm Signed by: MD HOLCOMB THOMAS Transcribed Date and Time: 05/16/2022 1:54 Normal [facility] MRI Spine Cervical w/o Contr carlos 05-15-2022 MRI Spine Cervical w/o Contrast Patient Name: JONATHON PERALES Magnetic Resonance Imaging ACCESSION EXAM DATE/TIME PROCEDURE ORDERING PROVIDER [id number] 05/15/2022 09:44 EDT MRI Spine Cervical w/o [id number] -ALEM HOPKINS Contrast CPT code 04676 Reason For Exam (MRI Spine Cervical w/o Contrast) gait disorder Report EXAM: MRI Spine Cervical w/o Contrast CLINICAL HISTORY: gait disorder TECHNIQUE: Multiplanar, multisequence MRI of the cervical spine without contrast. COMPARISON: None FINDINGS: Craniocervical junction: Within normal limits. Soft tissues: No prevertebral or paraspinal edema. Alignment: Minimal, grade 1 degenerative anterolisthesis at C4-5. Otherwise anatomic. Cord: Multilevel cord flattening without cord signal abnormality, detail below. Vertebrae: Normal vertebral marrow signal intensity. No compression deformities or osseous lesions. Canal and foramina: Unless otherwise noted, spinal canal stenosis results from disc-osteophyte complexes, and neural foraminal stenosis results from uncovertebral spurring and facet hypertrophy. C2-C3: Patent. C3-C4: Moderate spinal stenosis with mild ventral cord flattening. Moderate left and mild right neural foraminal stenosis. C4-C5: Moderate spinal stenosis with mild cord compression. Severe right and mild left neural foraminal stenosis. C5-C6: Moderate spinal stenosis with mild ventral cord flattening. Severe neural foraminal stenosis bilaterally. C6-C7: Left paracentral disc protrusion moderately narrows the spinal canal with mild ventral cord flattening. Patent foramina. Magnetic Resonance Imaging Report C7-T1: Patent. IMPRESSION: 1. Cervical spondylosis with multilevel moderate spinal canal stenosis and cord flattening. No cord edema. 2. Neural foraminal stenoses, most severe bilaterally at C5-6, and on the right at C4-5. Report Dictated on Final Dictated: 05/16/2022 2:06 pm Dictating Physician: MD HOLCOMB THOMAS Signed Date and Time: 05/16/2022 2:13 pm Signed by: MD HOLCOMB THOMAS Transcribed Date and Time: 05/16/2022 2:06 [facility] CR Foreign Body Loc Eye Bila teralon 05-03-2022 CR Foreign Body Loc Eye Bilateral Patient Name: JONATHON PERALES Diagnostic Radiology ACCESSION EXAM DATE/TIME PROCEDURE ORDERING PROVIDER [id number] 05/03/2022 14:32 EDT CR Foreign Body Loc Eye [id number] -KELLIE, ALEM Bilateral CPT code 60123 Reason For Exam (CR Foreign Body Loc Eye Bilateral) screen Report AP AND LATERAL ORBIT FILMS CLINICAL INDICATION: MRI clearance AP and lateral plain films of the orbits were obtained. COMPARISON: None FINDINGS: No radiopaque foreign body is identified within the orbits or visualized portion of the calvarium. The visualized paranasal sinuses appear clear. No displaced fracture is identified. IMPRESSION: No evidence of radiopaque foreign body within the orbits. Report Dictated on Final Dictated: 05/04/2022 4:44 am Dictating Physician: MD CEE JONATHAN R Signed Date and Time: 05/04/2022 4:44 am Signed by: MD CEE JONATHAN R Transcribed Date and Time: 05/04/2022 4:44 [facility] CT Cervical Spine WO Contras ton 02-25-2022 Patient Name: JONATHON DEWITT Computed Tomography ACCESSION EXAM DATE/TIME PROCEDURE ORDERING PROVIDER [id number] 02/25/2022 13:[address] Spine Cervical w/o MD AMARILIS, OG Contrast CPT code 13532 Reason For Exam (CT Spine Cervical w/o Contrast) evalaute for spinal hematoma. cervical sprain. on blood thinner Report EXAMINATION: CT Spine Cervical w/o Contrast CLINICAL HISTORY: evalaute for spinal hematoma. cervical sprain. on blood thinner COMPARISON: None TECHNIQUE: Thin isotropic axial images were obtained from the skull base to the upper thoracic spine without intravenous contrast. 2D sagittal and coronal reconstructions were obtained from the axial data. FINDINGS: Craniocervical Junction: Normal alignment. Alignment: Anatomic Vertebrae: No acute fracture or traumatic malalignment. No aggressive osseous lesions. Soft Tissues: No prevertebral swelling. No evidence of a spinal epidural hematoma. Asymmetry of the soft tissues in the oropharynx is probably from tonsillar enlargement. No visualized neck mass or adenopathy. There is dense calcification at the origin of the right internal carotid artery. Canal and Foramina: Mild cervical degenerative changes without significant spinal canal stenosis. IMPRESSION: Mild cervical spondylosis. No fracture or traumatic malalignment. No evidence of a spinal epidural hematoma. Asymmetrically enlarged left tonsil. Direct examination is recommended to exclude a tonsillar lesion. Dense calcification at the origin of the right ICA. Computed Tomography Report Report Dictated on --- Final --- Dictated: 02/25/2022 1:44 pm Dictating Physician: MD HOLCOMB THOMAS Signed Date and Time: 02/25/2022 1:49 pm Signed by: MD HOLCOMB THOMAS Transcribed Date and Time: 02/25/2022 1:44 [facility] Rose Holcomb M D - 02/25/2022 Patient Name: JONATHON PERALES Computed Tomography ACCESSION EXAM DATE/TIME PROCEDURE ORDERING PROVIDER [id number] 02/25/2022 13:[address] Spine Cervical w/o MD AMARILIS, OG Contrast CPT code 10654 Reason For Exam (CT Spine Cervical w/o Contrast) evalaute for spinal hematoma. cervical sprain. on blood thinner Report EXAMINATION: CT Spine Cervical w/o Contrast CLINICAL HISTORY: evalaute for spinal hematoma. cervical sprain. on blood thinner COMPARISON: None TECHNIQUE: Thin isotropic axial images were obtained from the skull base to the upper thoracic spine without intravenous contrast. 2D sagittal and coronal reconstructions were obtained from the axial data. FINDINGS: Craniocervical Junction: Normal alignment. Alignment: Anatomic Vertebrae: No acute fracture or traumatic malalignment. No aggressive osseous lesions. Soft Tissues: No prevertebral swelling. No evidence of a spinal epidural hematoma. Asymmetry of the soft tissues in the oropharynx is probably from tonsillar enlargement. No visualized neck mass or adenopathy. There is dense calcification at the origin of the right internal carotid artery. Canal and Foramina: Mild cervical degenerative changes without significant spinal canal stenosis. IMPRESSION: Mild cervical spondylosis. No fracture or traumatic malalignment. No evidence of a spinal epidural hematoma. Asymmetrically enlarged left tonsil. Direct examination is recommended to exclude a tonsillar lesion. Dense calcification at the origin of the right ICA. Computed Tomography Report Report Dictated on --- Final --- Dictated: 02/25/2022 1:44 pm Dictating Physician: MD HOLCOMB THOMAS Signed Date and Time: 02/25/2022 1:49 pm Signed by: MD HOLCOMB THOMAS Transcribed Date and Time: 02/25/2022 1:44 [facility] Work Phone: [facility] Work Phone: CT Head WO Contraston 2021 [facility]: [id number] Comput[facility] Tomography ACCESSION EXAM DATE/TIME PROCEDURE ORDERING PROVIDER [id number] 02/25/2022 13:[address] Head or Brain w/o MD AMARILIS, OG Contrast CPT code 32642 Reason For Exam (CT Head or Brain w/o Contrast) head injury, confusion Report CT HEAD WITHOUT CONTRAST CLINICAL HISTORY: head injury, confusion COMPARISON: 11/08/2022 TECHNIQUE: Helical CT of the brain without contrast. FINDINGS: Acute Findings: No hemorrhage, mass, or infarct. Chronic Changes: Again seen is encephalomalacia in the left parietal lobe from a remote MCA territory infarct. There are also remote cortical infarcts in the superior and inferior aspects left cerebellum which are also unchanged. Ventricles and sulci: Mild generalized brain parenchymal volume loss with normal caliber ventricles. Other: The skull, included paranasal sinuses and orbits are normal. IMPRESSION: No acute intracranial abnormalities or significant change from the prior study. Report Dictated on --- Final --- Dictated: 02/25/2022 1:38 pm Dictating Physician: MD HOLCOMB THOMAS Signed Date and Time: 02/25/2022 1:40 pm Signed by: MD HOLCOMB THOMAS Transcribed Date and Time: 02/25/2022 1:38 [facility] Rose Holcomb M D - 02/25/2022 [id number] Computed Tomography ACCESSION EXAM DATE/TIME PROCEDURE ORDERING PROVIDER [id number] 02/25/2022 13:[address] Head or Brain w/o MD AMARILIS, OG Contrast CPT code 32389 Reason For Exam (CT Head or Brain w/o Contrast) head injury, confusion Report CT HEAD WITHOUT CONTRAST CLINICAL HISTORY: head injury, confusion COMPARISON: 11/08/2022 TECHNIQUE: Helical CT of the brain without contrast. FINDINGS: Acute Findings: No hemorrhage, mass, or infarct. Chronic Changes: Again seen is encephalomalacia in the left parietal lobe from a remote MCA territory infarct. There are also remote cortical infarcts in the superior and inferior aspects left cerebellum which are also unchanged. Ventricles and sulci: Mild generalized brain parenchymal volume loss with normal caliber ventricles. Other: The skull, included paranasal sinuses and orbits are normal. IMPRESSION: No acute intracranial abnormalities or significant change from the prior study. Report Dictated on --- Final --- Dictated: 02/25/2022 1:38 pm Dictating Physician: MD HOLCOMB THOMAS Signed Date and Time: 02/25/2022 1:40 pm Signed by: MD HOLCOMB THOMAS Transcribed Date and Time: 02/25/2022 1:38 [facility] Work Phone: CT Head WO ContrastOrdered B y: Rose Holcomb on 02-25-2022 [facility] Work Phone: CT Head or Brain w/o Contras ton 02-25-2022 CT Head or Brain w/o Contrast Patient Name: JONATHON PERALES Computed Tomography ACCESSION EXAM DATE/TIME PROCEDURE ORDERING PROVIDER [id number] 02/25/2022 13:[address] Head or Brain w/o MD AMARILIS, OG Contrast CPT code 65013 Reason For Exam (CT Head or Brain w/o Contrast) head injury, confusion Report CT HEAD WITHOUT CONTRAST CLINICAL HISTORY: head injury, confusion COMPARISON: 11/08/2022 TECHNIQUE: Helical CT of the brain without contrast. FINDINGS: Acute Findings: No hemorrhage, mass, or infarct. Chronic Changes: Again seen is encephalomalacia in the left parietal lobe from a remote MCA territory infarct. There are also remote cortical infarcts in the superior and inferior aspects left cerebellum which are also unchanged. Ventricles and sulci: Mild generalized brain parenchymal volume loss with normal caliber ventricles. Other: The skull, included paranasal sinuses and orbits are normal. IMPRESSION: No acute intracranial abnormalities or significant change from the prior study. Report Dictated on Final Dictated: 02/25/2022 1:38 pm Dictating Physician: MD HOLCOMB THOMAS Signed Date and Time: 02/25/2022 1:40 pm Signed by: MD HOLCOMB THOMAS Transcribed Date and Time: 02/25/2022 1:38 Normal [facility] CT Spine Cervical w/o Contra ston 02-25-2022 CT Spine Cervical w/o Contrast Patient Name: JONATHON PERALES Computed Tomography ACCESSION EXAM DATE/TIME PROCEDURE ORDERING PROVIDER [id number] 02/25/2022 13:[address] Spine Cervical w/o MD AMARILIS, OG Contrast CPT code 03998 Reason For Exam (CT Spine Cervical w/o Contrast) evalaute for spinal hematoma. cervical sprain. on blood thinner Report EXAMINATION: CT Spine Cervical w/o Contrast CLINICAL HISTORY: evalaute for spinal hematoma. cervical sprain. on blood thinner COMPARISON: None TECHNIQUE: Thin isotropic axial images were obtained from the skull base to the upper thoracic spine without intravenous contrast. 2D sagittal and coronal reconstructions were obtained from the axial data. FINDINGS: Craniocervical Junction: Normal alignment. Alignment: Anatomic Vertebrae: No acute fracture or traumatic malalignment. No aggressive osseous lesions. Soft Tissues: No prevertebral swelling. No evidence of a spinal epidural hematoma. Asymmetry of the soft tissues in the oropharynx is probably from tonsillar enlargement. No visualized neck mass or adenopathy. There is dense calcification at the origin of the right internal carotid artery. Canal and Foramina: Mild cervical degenerative changes without significant spinal canal stenosis. IMPRESSION: Mild cervical spondylosis. No fracture or traumatic malalignment. No evidence of a spinal epidural hematoma. Asymmetrically enlarged left tonsil. Direct examination is recommended to exclude a tonsillar lesion. Dense calcification at the origin of the right ICA. Computed Tomography Report Report Dictated on Final Dictated: 02/25/2022 1:44 pm Dictating Physician: MD HOLCOMB THOMAS Signed Date and Time: 02/25/2022 1:49 pm Signed by: MD HOLCOMB THOMAS Transcribed Date and Time: 02/25/2022 1:44 Normal [facility] EKG 12 [place] 02-25-2022 [facility] Test Date: 2022-02-25 Pat Name: JONATHON PERALES Department: Room: 14 Gender: M Language Specialist: YAYA : 1950 Requested By: OG TOBAR Order Number: [id number] Reading MD: Og Tobar Measurements Intervals [place] Rate: 63 P: 66 NV: 166 QRS: 69 QRSD: 87 T: 81 QT: 391 QTc: 401 Interpretive Statements Sinus rhythm Probable left atrial enlargement Poor R wave progression Electronically Signed On 02-25-2022 13:43:56 EDT by Og Tobar [facility] CARDIOLOGY Og Tobar MD - 02/25/[address] [facility] Test Date: 2022-02-25 Pat Name: JONATHON PERALES Department: 41 Room: 14 Gender: M Language Specialist: YAYA : 1950 Requested By: OG TOBAR Order Number: [id number] Reading MD: Og Tobar Measurements Intervals [place] Rate: 63 P: 66 NV: 166 QRS: 69 QRSD: 87 T: 81 QT: 391 QTc: 401 Interpretive Statements Sinus rhythm Probable left atrial enlargement Poor R wave progression Electronically Signed On 02-25-2022 13:43:56 EDT by Og Tobar [facility] Work Phone: [facility] Work Phone: No Panel Informationon 02-25 Radiology Study observation (narrative) [facility] Work Phone: CT Head WO Contraston 2020 Patient Name: JONATHON DEWITT Computed Tomography ACCESSION EXAM DATE/TIME PROCEDURE ORDERING PROVIDER [id number] 11/08/2021 13:[address] Head or Brain w/o DAISY STINSON Contrast CPT code 80959 Reason For Exam (CT Head or Brain w/o Contrast) hear injury one week ago. Report Indication: Head injury Comparison date: 10/31/2021 FINDINGS: 3 mm unenhanced imaging of the brain performed. Images viewed in multiple orthogonal planes. There is no definite acute edema, midline shift, acute hemorrhage, or findings to suggest high likelihood of large acute infarct, within limits of the study. Stable left hemisphere hypodensity typical for remote injury/ischemic event MRI more specific/sensitive. No abnormal extra-axial fluid collections visualized. Bony structures:Unremarkabl e as seen. CSF spaces are unremarkable. Orbits within normal limits. Review of the paranasal sinuses shows no air-fluid levels. IMPRESSION: No acute brain process identified. Report Dictated on --- Final --- Dictated: 11/08/2021 1:49 pm Dictating Physician: MD JANG JOHN Signed Date and Time: 11/08/2021 1:50 pm Signed by: MD JANG JOHN Transcribed Date and Time: 11/08/2021 1:49 [facility] RAD Cas Jang MD - 11/08/2021 Patient Name: JONATHON PERALES Computed Tomography ACCESSION EXAM DATE/TIME PROCEDURE ORDERING PROVIDER [id number] 11/08/2021 13:[address] Head or Brain w/o DAISY STINSON Contrast CPT code 07008 Reason For Exam (CT Head or Brain w/o Contrast) hear injury one week ago. Report Indication: Head injury Comparison date: 10/31/2021 FINDINGS: 3 mm unenhanced imaging of the brain performed. Images viewed in multiple orthogonal planes. There is no definite acute edema, midline shift, acute hemorrhage, or findings to suggest high likelihood of large acute infarct, within limits of the study. Stable left hemisphere hypodensity typical for remote injury/ischemic event MRI more specific/sensitive. No abnormal extra-axial fluid collections visualized. Bony structures:Unremarkabl e as seen. CSF spaces are unremarkable. Orbits within normal limits. Review of the paranasal sinuses shows no air-fluid levels. IMPRESSION: No acute brain process identified. Report Dictated on --- Final --- Dictated: 11/08/2021 1:49 pm Dictating Physician: MD JANG JOHN Signed Date and Time: 11/08/2021 1:50 pm Signed by: MD JANG JOHN Transcribed Date and Time: 11/08/2021 1:49 [facility] Work Phone: Radiology Study observation (narrative) [facility] Work Phone: CT Head WO ContrastOrdered B y: Cas Jang on 11-08-2021 [facility] Work Phone: CT Head or Brain w/o Contras ton 11-08-2021 CT Head or Brain w/o Contrast Patient Name: JONATHON PERALES Computed Tomography ACCESSION EXAM DATE/TIME PROCEDURE ORDERING PROVIDER [id number] 11/08/2021 13:[address] Head or Brain w/o DAISY STINSON Contrast CPT code 16434 Reason For Exam (CT Head or Brain w/o Contrast) hear injury one week ago. Report Indication: Head injury Comparison date: 10/31/2021 FINDINGS: 3 mm unenhanced imaging of the brain performed. Images viewed in multiple orthogonal planes. There is no definite acute edema, midline shift, acute hemorrhage, or findings to suggest high likelihood of large acute infarct, within limits of the study. Stable left hemisphere hypodensity typical for remote injury/ischemic event MRI more specific/sensitive. No abnormal extra-axial fluid collections visualized. Bony structures:Unremarkabl e as seen. CSF spaces are unremarkable. Orbits within normal limits. Review of the paranasal sinuses shows no air-fluid levels. IMPRESSION: No acute brain process identified. Report Dictated on Final Dictated: 11/08/2021 1:49 pm Dictating Physician: MD JANG JOHN Signed Date and Time: 11/08/2021 1:50 pm Signed by: MD JANG JOHN Transcribed Date and Time: 11/08/2021 1:49 Normal [facility] CR Elbow 3+ Views Lefton CR Elbow 3+ Views Left [id number]iology ACCESSION EXAM DATE/TIME PROCEDURE ORDERING PROVIDER [id number] 10/31/2021 16:57 EST CR Elbow 3+ Views Left MD MCDONNELL VIJAY CPT code 67624 Reason For Exam (CR Elbow 3+ Views Left) injury Report LEFT ELBOW History: Pain , injury Findings: Three views of the left elbow joint show tiny marginal spurs. There is no acute fracture, dislocation, bone erosion or periosteal reaction. IMPRESSION: No acute process. Report Dictated on Final Dictated: 10/31/2021 5:05 pm Dictating Physician: MD ZARCO AHMAD Signed Date and Time: 10/31/2021 5:06 pm Signed by: MD ZARCO AHMAD Transcribed Date and Time: 10/31/2021 5:05 Normal [facility] CR Shoulder 2+ Views Righton 10-31-2021 CR Shoulder 2+ Views Right Patient Name: JONATHON PERALES Diagnostic Radiology ACCESSION EXAM DATE/TIME PROCEDURE ORDERING PROVIDER [id number] 10/31/2021 16:56 EST CR Shoulder 2+ Views MD MCDONNELL VIJAY Right CPT code 17852 Reason For Exam (CR Shoulder 2+ Views Right) injury Report Examination: Right shoulder: 3 views. Comparison: None. Reason For Study: Pain after fall. Findings: No fracture or bone displacement is observed. Alignment is anatomic. Overlying soft tissues appear normal. Conclusion(s): No fracture or malalignment demonstrated. Report Dictated on Final Dictated: 10/31/2021 5:06 pm Dictating Physician: MD BARNES B NELSON Signed Date and Time: 10/31/2021 5:08 pm Signed by: MD BARNES B NELSON Transcribed Date and Time: 10/31/2021 5:06 Normal [facility] CT Cervical Spine WO Contras ton 10-31-2021 Patient Name: JONATHON DEWITT Computed Tomography ACCESSION EXAM DATE/TIME PROCEDURE ORDERING PROVIDER [id number] 10/31/2021 16:[address] Spine Cervical w/o MD MCDONNELL VIJAY Contrast CPT code 57022 Reason For Exam (CT Spine Cervical w/o Contrast) fall Report HEAD CT WITHOUT IV CONTRAST History: Head pain,, previous stroke 10 years ago, fall , loss of consciousness Comparison: None available Technique: Multislice volume acquisition axial CT sections were obtained from the base to the vertex of the brain without IV contrast enhancement. Multiplanar sagittal and coronal reconstructed images also obtained. Findings: There is mild brain atrophy with prominent cortical sulci, fissures, and ventricles. There are bilateral periventricular and subcortical hypodensities suggesting chronic ischemic white matter changes. There is hypodense left parietal lobe infarct that appears old. There is no intracranial hemorrhage, mass effect, or midline shift in the brain. The exam is limited without IV contrast enhancement. The exam is limited without contrast enhancement. There are carotid siphons atherosclerotic calcifications. The paranasal sinuses are not completely included but the visualized osseous for mild mucosal thickening. The bilateral mastoid air cells are clear. IMPRESSION: Remote left parietal lobe infarct. Brain atrophy. Chronic ischemic white matter changes. No intracranial hemorrhage. CERVICAL SPINE CT History: Neck pain, fall injury Technique: Multislice volume acquisition CT sections of the cervical spine were obtained from the foramen magnum through T1 vertebra. Multiplanar sagittal and coronal images also obtained. I concurrently performed 3-D rendering and reviewed the exam and independent workstation. Findings: There are degenerative spine changes with disc space and neural foramina narrowing at C5-C6 and marginal vertebral spurs. There is hypertrophic facet joint arthropathy at C4-C5 particularly on the right. There remaining cervical disc spaces are maintained. Evaluation of the spinal canal contents, discs, and soft tissue Computed Tomography Report details is limited on this exam (MRI is more sensitive). There is incomplete fusion of the posterior arch of C1. There is ligamentum nuchae calcification. The cervical vertebral alignment is unremarkable. There is no acute cervical spine fracture or subluxation. IMPRESSION: Spondylosis. No acute cervical spine fracture or subluxation. Report Dictated on --- Final --- Dictated: 10/31/2021 4:53 pm Dictating Physician: MD ZARCO AHMAD Signed Date and Time: 10/31/2021 5:04 pm Signed by: MD ZARCO AHMAD Transcribed Date and Time: 10/31/2021 4:53 [facility], Unknown Provider - 10/31/2021 Patient Name: JONATHON PERALES Computed Tomography ACCESSION EXAM DATE/TIME PROCEDURE ORDERING PROVIDER [id number] 10/31/2021 16:[address] Spine Cervical w/o MD KECIA, JONN Contrast CPT code 35256 Reason For Exam (CT Spine Cervical w/o Contrast) fall Report HEAD CT WITHOUT IV CONTRAST History: Head pain,, previous stroke 10 years ago, fall , loss of consciousness Comparison: None available Technique: Multislice volume acquisition axial CT sections were obtained from the base to the vertex of the brain without IV contrast enhancement. Multiplanar sagittal and coronal reconstructed images also obtained. Findings: There is mild brain atrophy with prominent cortical sulci, fissures, and ventricles. There are bilateral periventricular and subcortical hypodensities suggesting chronic ischemic white matter changes. There is hypodense left parietal lobe infarct that appears old. There is no intracranial hemorrhage, mass effect, or midline shift in the brain. The exam is limited without IV contrast enhancement. The exam is limited without contrast enhancement. There are carotid siphons atherosclerotic calcifications. The paranasal sinuses are not completely included but the visualized osseous for mild mucosal thickening. The bilateral mastoid air cells are clear. IMPRESSION: Remote left parietal lobe infarct. Brain atrophy. Chronic ischemic white matter changes. No intracranial hemorrhage. CERVICAL SPINE CT History: Neck pain, fall injury Technique: Multislice volume acquisition CT sections of the cervical spine were obtained from the foramen magnum through T1 vertebra. Multiplanar sagittal and coronal images also obtained. I concurrently performed 3-D rendering and reviewed the exam and independent workstation. Findings: There are degenerative spine changes with disc space and neural foramina narrowing at C5-C6 and marginal vertebral spurs. There is hypertrophic facet joint arthropathy at C4-C5 particularly on the right. There remaining cervical disc spaces are maintained. Evaluation of the spinal canal contents, discs, and soft tissue Computed Tomography Report details is limited on this exam (MRI is more sensitive). There is incomplete fusion of the posterior arch of C1. There is ligamentum nuchae calcification. The cervical vertebral alignment is unremarkable. There is no acute cervical spine fracture or subluxation. IMPRESSION: Spondylosis. No acute cervical spine fracture or subluxation. Report Dictated on --- Final --- Dictated: 10/31/2021 4:53 pm Dictating Physician: MD ZARCO AHMAD Signed Date and Time: 10/31/2021 5:04 pm Signed by: MD ZARCO AHMAD Transcribed Date and Time: 10/31/2021 4:53 [facility] Work Phone: CT Cervical Spine WO Contras tOrdered By: Unknown Result on 10-31-[address] [facility] [address] Head WO Contraston 2020 [id number] Computed Tomography ACCESSION EXAM DATE/TIME PROCEDURE ORDERING PROVIDER [id number] 10/31/2021 16:[address] Head or Brain w/o MD KECIA, JONN Contrast CPT code 15258 Reason For Exam (CT Head or Brain w/o Contrast) fall Report HEAD CT WITHOUT IV CONTRAST History: Head pain,, previous stroke 10 years ago, fall , loss of consciousness Comparison: None available Technique: Multislice volume acquisition axial CT sections were obtained from the base to the vertex of the brain without IV contrast enhancement. Multiplanar sagittal and coronal reconstructed images also obtained. Findings: There is mild brain atrophy with prominent cortical sulci, fissures, and ventricles. There are bilateral periventricular and subcortical hypodensities suggesting chronic ischemic white matter changes. There is hypodense left parietal lobe infarct that appears old. There is no intracranial hemorrhage, mass effect, or midline shift in the brain. The exam is limited without IV contrast enhancement. The exam is limited without contrast enhancement. There are carotid siphons atherosclerotic calcifications. The paranasal sinuses are not completely included but the visualized osseous for mild mucosal thickening. The bilateral mastoid air cells are clear. IMPRESSION: Remote left parietal lobe infarct. Brain atrophy. Chronic ischemic white matter changes. No intracranial hemorrhage. CERVICAL SPINE CT History: Neck pain, fall injury Technique: Multislice volume acquisition CT sections of the cervical spine were obtained from the foramen magnum through T1 vertebra. Multiplanar sagittal and coronal images also obtained. I concurrently performed 3-D rendering and reviewed the exam and independent workstation. Findings: There are degenerative spine changes with disc space and neural foramina narrowing at C5-C6 and marginal vertebral spurs. There is hypertrophic facet joint arthropathy at C4-C5 particularly on the right. There remaining cervical disc spaces are maintained. Evaluation of the spinal canal contents, discs, and soft tissue Computed Tomography Report details is limited on this exam (MRI is more sensitive). There is incomplete fusion of the posterior arch of C1. There is ligamentum nuchae calcification. The cervical vertebral alignment is unremarkable. There is no acute cervical spine fracture or subluxation. IMPRESSION: Spondylosis. No acute cervical spine fracture or subluxation. Report Dictated on --- Final --- Dictated: 10/31/2021 4:53 pm Dictating Physician: MD ZARCO AHMAD Signed Date and Time: 10/31/2021 5:04 pm Signed by: MD ZARCO AHMAD Transcribed Date and Time: 10/31/2021 4:53 [facility] RAD Result, Unknown Provider - 10/31/2021 [id number] Computed Tomography ACCESSION EXAM DATE/TIME PROCEDURE ORDERING PROVIDER [id number] 10/31/2021 16:[address] Head or Brain w/o MD KECIA, JONN Contrast CPT code 61146 Reason For Exam (CT Head or Brain w/o Contrast) fall Report HEAD CT WITHOUT IV CONTRAST History: Head pain,, previous stroke 10 years ago, fall , loss of consciousness Comparison: None available Technique: Multislice volume acquisition axial CT sections were obtained from the base to the vertex of the brain without IV contrast enhancement. Multiplanar sagittal and coronal reconstructed images also obtained. Findings: There is mild brain atrophy with prominent cortical sulci, fissures, and ventricles. There are bilateral periventricular and subcortical hypodensities suggesting chronic ischemic white matter changes. There is hypodense left parietal lobe infarct that appears old. There is no intracranial hemorrhage, mass effect, or midline shift in the brain. The exam is limited without IV contrast enhancement. The exam is limited without contrast enhancement. There are carotid siphons atherosclerotic calcifications. The paranasal sinuses are not completely included but the visualized osseous for mild mucosal thickening. The bilateral mastoid air cells are clear. IMPRESSION: Remote left parietal lobe infarct. Brain atrophy. Chronic ischemic white matter changes. No intracranial hemorrhage. CERVICAL SPINE CT History: Neck pain, fall injury Technique: Multislice volume acquisition CT sections of the cervical spine were obtained from the foramen magnum through T1 vertebra. Multiplanar sagittal and coronal images also obtained. I concurrently performed 3-D rendering and reviewed the exam and independent workstation. Findings: There are degenerative spine changes with disc space and neural foramina narrowing at C5-C6 and marginal vertebral spurs. There is hypertrophic facet joint arthropathy at C4-C5 particularly on the right. There remaining cervical disc spaces are maintained. Evaluation of the spinal canal contents, discs, and soft tissue Computed Tomography Report details is limited on this exam (MRI is more sensitive). There is incomplete fusion of the posterior arch of C1. There is ligamentum nuchae calcification. The cervical vertebral alignment is unremarkable. There is no acute cervical spine fracture or subluxation. IMPRESSION: Spondylosis. No acute cervical spine fracture or subluxation. Report Dictated on --- Final --- Dictated: 10/31/2021 4:53 pm Dictating Physician: MD ZARCO AHMAD Signed Date and Time: 10/31/2021 5:04 pm Signed by: MD ZARCO AHMAD Transcribed Date and Time: 10/31/2021 4:53 [facility] Work Phone: [facility] Work Phone: CT Head or Brain w/o Contras ton 10-31-2021 CT Head or Brain w/o Contrast [facility]: [id number] Computed Tomography ACCESSION EXAM DATE/TIME PROCEDURE ORDERING PROVIDER [id number] 10/31/2021 16:[address] Head or Brain w/o MD KECIA, JONN Contrast CPT code 02483 Reason For Exam (CT Head or Brain w/o Contrast) fall Report HEAD CT WITHOUT IV CONTRAST History: Head pain,, previous stroke 10 years ago, fall , loss of consciousness Comparison: None available Technique: Multislice volume acquisition axial CT sections were obtained from the base to the vertex of the brain without IV contrast enhancement. Multiplanar sagittal and coronal reconstructed images also obtained. Findings: There is mild brain atrophy with prominent cortical sulci, fissures, and ventricles. There are bilateral periventricular and subcortical hypodensities suggesting chronic ischemic white matter changes. There is hypodense left parietal lobe infarct that appears old. There is no intracranial hemorrhage, mass effect, or midline shift in the brain. The exam is limited without IV contrast enhancement. The exam is limited without contrast enhancement. There are carotid siphons atherosclerotic calcifications. The paranasal sinuses are not completely included but the visualized osseous for mild mucosal thickening. The bilateral mastoid air cells are clear. IMPRESSION: Remote left parietal lobe infarct. Brain atrophy. Chronic ischemic white matter changes. No intracranial hemorrhage. CERVICAL SPINE CT History: Neck pain, fall injury Technique: Multislice volume acquisition CT sections of the cervical spine were obtained from the foramen magnum through T1 vertebra. Multiplanar sagittal and coronal images also obtained. I concurrently performed 3-D rendering and reviewed the exam and independent workstation. Findings: There are degenerative spine changes with disc space and neural foramina narrowing at C5-C6 and marginal vertebral spurs. There is hypertrophic facet joint arthropathy at C4-C5 particularly on the right. There remaining cervical disc spaces are maintained. Evaluation of the spinal canal contents, discs, and soft tissue Computed Tomography Report details is limited on this exam (MRI is more sensitive). There is incomplete fusion of the posterior arch of C1. There is ligamentum nuchae calcification. The cervical vertebral alignment is unremarkable. There is no acute cervical spine fracture or subluxation. IMPRESSION: Spondylosis. No acute cervical spine fracture or subluxation. Report Dictated on Final Dictated: 10/31/2021 4:53 pm Dictating Physician: MD ZARCO AHMAD Signed Date and Time: 10/31/2021 5:04 pm Signed by: MD ZARCO AHMAD Transcribed Date and Time: 10/31/2021 4:53 Normal [facility] CT Spine Cervical w/o Contra andrew 10-31-2021 CT Spine Cervical w/o Contrast [facility]: [id number] Computed Tomography ACCESSION EXAM DATE/TIME PROCEDURE ORDERING PROVIDER [id number] 10/31/2021 16:[address] Spine Cervical w/o MD KECIA, JONN Contrast CPT code 55014 Reason For Exam (CT Spine Cervical w/o Contrast) fall Report HEAD CT WITHOUT IV CONTRAST History: Head pain,, previous stroke 10 years ago, fall , loss of consciousness Comparison: None available Technique: Multislice volume acquisition axial CT sections were obtained from the base to the vertex of the brain without IV contrast enhancement. Multiplanar sagittal and coronal reconstructed images also obtained. Findings: There is mild brain atrophy with prominent cortical sulci, fissures, and ventricles. There are bilateral periventricular and subcortical hypodensities suggesting chronic ischemic white matter changes. There is hypodense left parietal lobe infarct that appears old. There is no intracranial hemorrhage, mass effect, or midline shift in the brain. The exam is limited without IV contrast enhancement. The exam is limited without contrast enhancement. There are carotid siphons atherosclerotic calcifications. The paranasal sinuses are not completely included but the visualized osseous for mild mucosal thickening. The bilateral mastoid air cells are clear. IMPRESSION: Remote left parietal lobe infarct. Brain atrophy. Chronic ischemic white matter changes. No intracranial hemorrhage. CERVICAL SPINE CT History: Neck pain, fall injury Technique: Multislice volume acquisition CT sections of the cervical spine were obtained from the foramen magnum through T1 vertebra. Multiplanar sagittal and coronal images also obtained. I concurrently performed 3-D rendering and reviewed the exam and independent workstation. Findings: There are degenerative spine changes with disc space and neural foramina narrowing at C5-C6 and marginal vertebral spurs. There is hypertrophic facet joint arthropathy at C4-C5 particularly on the right. There remaining cervical disc spaces are maintained. Evaluation of the spinal canal contents, discs, and soft tissue Computed Tomography Report details is limited on this exam (MRI is more sensitive). There is incomplete fusion of the posterior arch of C1. There is ligamentum nuchae calcification. The cervical vertebral alignment is unremarkable. There is no acute cervical spine fracture or subluxation. IMPRESSION: Spondylosis. No acute cervical spine fracture or subluxation. Report Dictated on Final Dictated: 10/31/2021 4:53 pm Dictating Physician: MD ZARCO AHMAD Signed Date and Time: 10/31/2021 5:04 pm Signed by: MD ZARCO AHMAD Transcribed Date and Time: 10/31/2021 4:53 Normal [facility] No Panel Informationon 10-31 Radiology Study observation (narrative) [facility] Work Phone: XR ELBOW LEFT (MIN 3 VIEWS)o n 10-31-2021 Patient Name: JONATHON DEWITT Diagnostic Radiology ACCESSION EXAM DATE/TIME PROCEDURE ORDERING PROVIDER [id number] 10/31/2021 16:57 EST CR Elbow 3+ Views Left MD MCDONNELL VIJAY CPT code 08657 Reason For Exam (CR Elbow 3+ Views Left) injury Report LEFT ELBOW History: Pain , injury Findings: Three views of the left elbow joint show tiny marginal spurs. There is no acute fracture, dislocation, bone erosion or periosteal reaction. IMPRESSION: No acute process. Report Dictated on --- Final --- Dictated: 10/31/2021 5:05 pm Dictating Physician: MD ZARCO AHMAD Signed Date and Time: 10/31/2021 5:06 pm Signed by: MD ZARCO AHMAD Transcribed Date and Time: 10/31/2021 5:05 [facility] RAD Result, Unknown Provider - 10/31/2021 Patient Name: JONATHON PERALES Diagnostic Radiology ACCESSION EXAM DATE/TIME PROCEDURE ORDERING PROVIDER [id number] 10/31/2021 16:57 EST CR Elbow 3+ Views Left MD MCDONNELL VIJAY CPT code 09014 Reason For Exam (CR Elbow 3+ Views Left) injury Report LEFT ELBOW History: Pain , injury Findings: Three views of the left elbow joint show tiny marginal spurs. There is no acute fracture, dislocation, bone erosion or periosteal reaction. IMPRESSION: No acute process. Report Dictated on --- Final --- Dictated: 10/31/2021 5:05 pm Dictating Physician: MD ZARCO AHMAD Signed Date and Time: 10/31/2021 5:06 pm Signed by: MD ZARCO AHMAD Transcribed Date and Time: 10/31/2021 5:05 [facility] Work Phone: [facility] Work Phone: XR Shoulder Right 2 VWon Patient Name: JONATHON DEWITT Diagnostic Radiology ACCESSION EXAM DATE/TIME PROCEDURE ORDERING PROVIDER [id number] 10/31/2021 16:56 EST CR Shoulder 2+ Views MD MCDONNELL VIJAY Right CPT code 95829 Reason For Exam (CR Shoulder 2+ Views Right) injury Report Examination: Right shoulder: 3 views. Comparison: None. Reason For Study: Pain after fall. Findings: No fracture or bone displacement is observed. Alignment is anatomic. Overlying soft tissues appear normal. Conclusion(s): No fracture or malalignment demonstrated. Report Dictated on --- Final --- Dictated: 10/31/2021 5:06 pm Dictating Physician: MD BARNES B NELSON Signed Date and Time: 10/31/2021 5:08 pm Signed by: MD BARNES B NELSON Transcribed Date and Time: 10/31/2021 5:06 [facility] Charly Dempsey M D - 10/31/2021 Patient Name: JONATHON PERALES Diagnostic Radiology ACCESSION EXAM DATE/TIME PROCEDURE ORDERING PROVIDER [phone] 10/31/2021 16:56 EST CR Shoulder 2+ Views MD MCDONNELL VIJAY Right CPT code 99116 Reason For Exam (CR Shoulder 2+ Views Right) injury Report Examination: Right shoulder: 3 views. Comparison: None. Reason For Study: Pain after fall. Findings: No fracture or bone displacement is observed. Alignment is anatomic. Overlying soft tissues appear normal. Conclusion(s): No fracture or malalignment demonstrated. Report Dictated on --- Final --- Dictated: 10/31/2021 5:06 pm Dictating Physician: MD BARNES B NELSON Signed Date and Time: 10/31/2021 5:08 pm Signed by: MD BARNES B NELSON Transcribed Date and Time: 10/31/2021 5:06 [facility] Work Phone: XR Shoulder Right 2 VWOrdere d By: Charly Barnes on 10-31-2021 [facility] Work Phone: BD DXA - AXIAL SKELETONon DXA - AXIAL SKELETON Final Report DATE OF EXAM: Jan 04 2021 9:59AM AKX [id number] - DXA - AXIAL SKELETON / PROCEDURE REASON: Other specified disorders of bone density and structure, multiple sites Physician Interpretation EXAM TITLE: BONE MINERAL DENSITOMETRY COMPARISON:None CLINICAL INDICATION/HISTORY: Male patient with family history of osteoporosis, adult fracture, and 1.5 inch loss of height. TECHNIQUE: DXA [employer] v.13.4 examination was performed on the lumbar spine and hip. FINDINGS: 1. L1-L4 BMD is 1.3 g/cm2 which is 108% of peak bone mass compared to young normals which is 0.9 standard deviations relative to the mean of young normals (T-score). According to the World Health Organization criteria, this would be classified as normal . 2. Left hip BMD is 0.95 g/cm2 which is 86% of peak bone mass compared to young normals which is -1.1 standard deviations relative to the mean of young normals (T-score). According to the World Health Organization criteria, this would be classified as osteopenia. 3. Left femoral neck BMD is 0.8 g/cm2 which is 75% of peak bone mass compared to young normals which is -2.1 standard deviations relative to the mean of young normals (T-score). According to the World Health Organization criteria, this would be classified as osteopenia. 4. right hip BMD is 0.91 g/cm2 which is 83% of peak bone mass compared to young normals which is -1.3 standard deviations relative to the mean of young normals (T-score). According to the World Health Organization criteria, this would be classified as osteopenia. 5. right femoral neck BMD is 0.79 g/cm2 which is 74% of peak bone mass compared to young normals which is -2.1 standard deviations relative to the mean of young normals (T-score). According to the World Health Organization criteria, this would be classified as osteopenia. IMPRESSION: There is osteopenia within the assessed regions. RELATIVE FRACTURE RISK TABLE NOTE: This table applies to post-menopausal females. T-score Fracture risk 0 average risk for normal 40 year old -1 2 times the normal -2 4 times the normal -3 8 times the normal etc. GENERAL RECOMMENDATIONS FOR PREVENTION OF BONE LOSS: 1. 1200 mg - 1500 mg calcium per day if no history of renal calculi for adults 50 years and over. 2. 800 - 1000 International Units of vitamin D3 per day if no history of renal calculi for adults 50 years and over. 3. Weight bearing exercise 4. Discontinue smoking 5. Avoid excessive use of caffeine, soft drinks, and alcoholic beverages. The National Osteoporosis Foundation recommends that treatment be considered for patients with T-scores of -2 or lower (-1 or lower if patient at high risk for accelerated bone loss). Inspector Tester Sorter: MILTON Transcribe Date/Time: Jan 04 2021 10:08A Dictated by : REED SAM MD This examination was interpreted and the report reviewed and electronically signed by: REED SAM MD on Jan 04 2021 10:09AM EST Normal [facility] US ANKLE BRACHIAL INDICESon 01-04-2021 US ANKLE BRACHIAL INDICES Final Report DATE OF EXAM: Jan 04 2021 12:00AM [id number] [id number] - US ANKLE BRACHIAL INDICES / PROCEDURE REASON: claudication Physician Interpretation Non-Invasive Vascular Laboratory [facility] Lower Extremity Arterial Physiology Study Bilateral/Complete Date of service/time: 01/04/2021 8:53:00 AM Name: MR. JONATHON PERALES Date of : 1950 Age: 70 years Gender: M Medical History Tobacco: Former Coronary disease: Yes Hypertension: Yes Clinical Indication Pain at rest in leg and pain in leg. TECHNIQUE -------- An arterial physiological examination was performed, including measurement of blood pressures using continuous wave Doppler and recording of plethysmographic with or without Doppler waveforms at the below-mentioned limb segments. FINDINGS -------- RIGHT SIDE AT REST Right Pressures Brachial: 132 mmHg Ankle dorsalis pedis: 121 mmHg RUPESH: 0.92 Ankle posterior tibial: 143 mmHg RUPESH: 1.08 Right PVR Waveforms Ankle: Normal. LEFT SIDE AT REST Left Pressures Brachial: 130 mmHg Ankle dorsalis pedis: 123 mmHg RUPESH: 0.93 Ankle posterior tibial: 131 mmHg RUPESH: 0.99 Left PVR Waveforms Ankle: Normal. IMPRESSION RIGHT SIDE Resting right ankle brachial index: 1.08 Normal ankle brachial index at rest in the right leg. Right ankle: Normal at rest. LEFT SIDE Resting left ankle brachial index: 0.99 Borderline abnormal ankle brachial index at rest. Left ankle: Borderline abnormal at rest. Technologist: Jonelle Thibodeaux Ordering physician: FREDERIC VELASQUEZ Interpreting physician: Jonathon Sandhu MD Final RP Inspector Tester Sorter: GURJIT Transcribe Date/Time: Jan 04 2021 8:53A Dictated by : JONATHON SANDHU MD This examination was interpreted and the report reviewed and electronically signed by: JONATHON SANDHU MD on Jan 04 2021 12:33PM EST Normal [facility] XR LUMBAR 3V AP/LAT/L5-S1on 08-04-2020 XR LUMBAR 3V AP/LAT/L5-S1 Final Report DATE OF EXAM: Aug 04 2020 12:16PM GRX [id number] - XR LUMBAR 3V AP/LAT/L5-S1 / PROCEDURE REASON: multiple diagnoses Physician Interpretation XR LUMBAR 3V AP/LAT/L5-S1 HISTORY: 70 years old Clinical information: Acute left-sided low back pain with left-sided sciatica TECHNIQUE: Images: XR LUMBAR 3V AP/LAT/L5-S1 Comparison: None. RESULT/ impression: Mild degree of multilevel endplate degenerative changes with disc space narrowing, marginal spurs and posterior hypertrophic changes. L1-2 level, 3 mm degenerative retrolisthesis. No evidence of fracture or bone destruction. IMPRESSION: No acute or subacute traumatic abnormality Inspector Tester Sorter: MILTON Transcribe Date/Time: Aug 04 2020 1:16P Dictated by : SAEED ALONZO MD This examination was interpreted and the report reviewed and electronically signed by: SAEED ALONZO MD on Aug 04 2020 1:19PM EST Normal [facility] XR THORACIC 3V AP/LAT/SWIMME RSon 08-04-2020 XR THORACIC 3V AP/LAT/SWIMMERS Final Report DATE OF EXAM: Aug 04 2020 12:16PM GRX [id number] - XR THORACIC 3V AP/LAT/SWIMMERS / PROCEDURE REASON: multiple diagnoses Physician Interpretation XR THORACIC 3V AP/LAT/SWIMMERS HISTORY: 70 years old Clinical information: Acute left-sided low back pain with left-sided sciatica TECHNIQUE: Images: XR THORACIC 3V AP/LAT/SWIMMERS Comparison: None. RESULT: Chronic superior endplate deformity mild wedge-shaped deformity of the T7 vertebral body. No evidence of acute bone destruction. No subluxation. Sternotomy wires. Visualized lungs are clear. IMPRESSION: No acute pathology.Chronic superior endplate deformity mild wedge-shaped deformity of the T7 vertebral body. Inspector Tester Sorter: PSCB Transcribe Date/Time: Aug 04 2020 1:26P Dictated by : SAEED ALONZO MD This examination was interpreted and the report reviewed and electronically signed by: SAEED ALONZO MD on Aug 04 2020 1:27PM EST Normal [facility] Coronavirus 2019on 0 SARS-CoV-2 (COVID-19) RNA PRIYANKA+probe Ql (Unsp spec) Negative Normal [facility] Comment on above: Result Comment: Nega tive for COVID19 (SARS CoV2) by PCR. This test was developed and its performance characteristics determined by [facility] [place]. This test has been authorized by FDA under an Emergency Use Authorization (EUA). This test has been validated in accordance with the FDA's Guidance Document Policy for Diagnostics Testing in Laboratories Certified to Perform High Complexity Testing under CLIA prior to Emergency use Authorization for Coronavirus Disease 2019 during the Public Health Emergency" issued on January 16, 2020. Performing Laboratory: [facility] [address] [place] [address] Performed By: #### G P8 #### [place] [address] Basic Metabolic Panelon 09- Anion gap [Moles/Vol] 9 mmol/L Normal 9-18 [facility] Comment on above: Performed By: #### B MP #### [place] [address] Calcium [Mass/Vol] 9.0 mg/dL Normal 8.5-10.2 [facility] Comment on above: Performed By: #### B MP #### [place] [id number] Chloride [Moles/Vol] 105 mmol/L Normal 97-105 [facility] Comment on above: Performed By: #### B MP #### [facility] [address] [place], [place] [address] CO2 [Moles/Vol] 26 mmol/L Normal 22-30 [facility] Comment on above: Performed By: #### B MP #### [facility] [address] [place], [place] [address] Creatinine [Mass/Vol] 0.98 mg/dL Normal 0.73-1.22 [facility] Comment on above: Performed By: #### B MP #### [facility] [address] [place], [place] [address] Glucose [Mass/Vol] 87 mg/dL Normal 74-99 [facility] Comment on above: Result Comment: The [place] Diabetes Association (ADA) provides guidance for cutoff values for fasting glucose and random glucose. The ADA defines fasting as no caloric intake for at least 8 hours.Fasting plasma glucose results between 100 to 125 mg/dL indicate increased risk for diabetes (prediabetes). Fasting plasma glucose results greater than or equal to 126 mg/dL meet the criteria for diagnosis of diabetes. In the absence of unequivocal hyperglycemia, results should be confirmed by repeat testing. In a patient with classic symptoms of hyperglycemia or hyperglycemic crisis, random plasma glucose results greater than or equal to 200 mg/dL meet the criteria for diagnosis of diabetes. Reference: Standards of Medical Care in Diabetes 2016; [place] Diabetes Association. Diabetes Care. 2016;39(Suppl 1). Performed By: #### B MP #### [facility] [address] [place], [place] [address] Potassium [Moles/Vol] 4.1 mmol/L Normal 3.7-5.1 [facility] Comment on above: Performed By: #### B MP #### [facility] [address] [place], [place] [address] Sodium [Moles/Vol] 140 mmol/L Normal 136-144 [facility] Comment on above: Performed By: #### B MP #### [facility] [address] [place], [place] [address] Urea nitrogen [Mass/Vol] 19 mg/dL Normal 9-24 [facility] Comment on above: Performed By: #### B MP #### [facility] [address] [place] [address] Hemogramon 07-27-2020 Erythrocyte distribution width (RBC) [Ratio] 12.0 % Normal 11.6-14.4 [facility] Comment on above: Performed By: #### C BC1 #### [facility] [address] [place] [address] Hematocrit (Bld) [Volume fraction] 41.8 % Normal 40.1-51.0 [facility] Comment on above: Performed By: #### C BC1 #### [facility] [address] [place] [address] Hemoglobin (Bld) [Mass/Vol] 14.2 g/dL Normal 13.7-17.5 [facility] Comment on above: Performed By: #### C BC1 #### [place] [address] MCH (RBC) [Entitic mass] 33.7 pg High 25.7-32.2 [facility] Comment on above: Performed By: #### C BC1 #### [facility] [address] [place] [address] MCHC 34.0 % Normal 32.3-36.5 [facility] Comment on above: Performed By: #### C BC1 #### [place] [address] MCV (RBC) [Entitic vol] 99.3 fL High 83.2-95.6 [facility] Comment on above: Performed By: #### C BC1 #### [facility] [address] [place] [address] Platelet mean volume (Bld) [Entitic vol] 10.4 fL Normal 8.7-12.0 [facility] Comment on above: Performed By: #### C BC1 #### [place] [address] Platelets (Bld) [#/Vol] 249 10*3/uL Normal 141-365 [facility] Comment on above: Performed By: #### C BC1 #### [facility] [address] [place] [address] RBC 4.21 mil/cmm Low 4.63-6.08 [facility] Comment on above: Performed By: #### C BC1 #### [facility] [address] [place] [address] RDW SD 44.2 fl Normal 36.1-45.8 [facility] Comment on above: Performed By: #### C BC1 #### [facility] [address] [place] [address] WBC (Bld) [#/Vol] 7.75 10*3/uL Normal 4.23-9.07 [facility] Comment on above: Performed By: #### C BC1 #### [facility] [address] [place] [address] MDRD GFRon 07-27-2020 GFR/1.73 sq M.predicted among non-blacks MDRD (S/P/Bld) [Vol rate/Area] mL/min/{1.73_m2} Normal >60mL/min/1 .73m2 [facility] Comment on above: Result Comment: If t he patient is , multiply the result by 1.210. Performed By: #### G FR #### [facility] [address] [place] [address] Basic Panelon 07-26-2020 Anion gap [Moles/Vol] 15 mmol/L Normal 8-16 [facility] Comment on above: Performed By: #### G P8 #### [facility] [address] [place] [address] Calcium [Mass/Vol] 10.6 mg/dL High 8.5-10.1 [facility] Comment on above: Performed By: #### G P8 #### [facility] [address] [place] [address] Chloride [Moles/Vol] 103 mmol/L Normal 98-107 [facility] Comment on above: Performed By: #### G P8 #### [place] [address] CO2 [Moles/Vol] 27 mmol/L Normal 21-32 [facility] Comment on above: Performed By: #### G P8 #### [facility] [address] [place], [place] [address] Creatinine [Mass/Vol] 0.93 mg/dL Normal 0.67-1.17 [facility] Comment on above: Result Comment: Use of this assay is not recommended for patients undergoing treatment with phenindione, due to the potential for falsely depressed results. Performed By: #### G P8 #### [facility] [address] [place], [place] [address] Glucose [Mass/Vol] 114 mg/dL High 70-99 [facility] Comment on above: Performed By: #### G P8 #### [facility] [address] [place], [place] [address] Potassium [Moles/Vol] 4.4 mmol/L Normal 3.5-5.1 [facility] Comment on above: Performed By: #### G P8 #### [facility] [address] [place], [place] [address] Sodium [Moles/Vol] 141 mmol/L Normal 136-145 [facility] Comment on above: Performed By: #### G P8 #### [address] [address] Urea nitrogen [Mass/Vol] 16 mg/dL Normal 7-18 [facility] Comment on above: Performed By: #### G P8 #### [address] [address] [address] ABD/PEL WO IVCONon 2019 CT ABD/PEL WO IVCON Final Report DATE OF EXAM: Jul 26 2020 2:54PM [facility] 0531 - CT ABD/PEL WO IVCON / PROCEDURE REASON: Flank pain, stone disease suspected Physician Interpretation EXAMINATION: CT ABDOMEN AND PELVIS WITHOUT IV CONTRAST CLINICAL HISTORY: Flank pain, stone disease suspected TECHNIQUE: Non-IV contrast imaging of the abdomen and pelvis was performed using standard technique, scanning from just above the dome of the diaphragm to the symphysis pubis. Unenhanced imaging is limited for the evaluation of some intra-abdominal and pelvic pathology. MQ: [id number]_3 Contrast: IV: None CT Radiation dose: Integrated Dose-length product (DLP) for this visit = 225.[address] Dose Reduction Employed: Automated exposure control(AEC) and iterative recon COMPARISON: CT of the abdomen and pelvis 08/01/2018 RESULT: Abdomen / Pelvis: Liver: Unremarkable. Biliary: Gallbladder is unremarkable. No biliary ductal dilation. Spleen: No splenomegaly. Pancreas: Unremarkable. Adrenals: No mass. Kidneys: No calculus, hydronephrosis or finding to suggest a cyst or mass in the unenhanced kidney. GI Tract: No bowel dilation. Appendix is normal. No evidence of bowel obstruction. Lymph Nodes: No lymphadenopathy. Mesentery/peritoneum: No ascites. Retroperitoneum: No mass. Vasculature: Dense dense plaque at the distal abdominal aorta, incompletely evaluated due to the lack of intravenous contrast, but significant luminal narrowing was already suggested on the CT of 07/2018. Pelvis: No mass or ascites. Prostate is not enlarged, with few coarse calcifications. Bones/Soft Tissues: No acute abnormality. Mild degenerative changes predominantly at L3-L4. Partially imaged mild anterior wedge deformity of T7. 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 No consolidation or pleural effusion. Dense atherosclerotic calcifications of the coronary arteries. Aortic valve replacement. Partially imaged mild aneurysmal dilation of the ascending aorta measuring up to 3.8 cm, as noted 07/2018. No pericardial effusion motion. Entry Level Marketing Assistant (topogram) images: No additional findings. IMPRESSION: 1. No hydronephrosis or nephrolithiasis. 2. No evidence of bowel obstruction or acute intra-abdominal findings. 3. Dense atherosclerotic calcifications of the distal abdominal aorta with suggestion of significant luminal narrowing, as partially imaged on the CT of 07/2019 4. Partially imaged aortic valve replacement and mild fusiform dilation of the ascending aorta. Other chronic findings, as above. Inspector Tester Sorter: MILTON Transcribe Date/Time: Jul 26 2020 2:57P Dictated by : CR FERGUSON MD This examination was interpreted and the report reviewed and electronically signed by: CR FERGUSON MD on Jul 26 2020 3:05PM EST Normal [facility] Cult Urineon 07-26-2020 Cult Urine Test performed at [facility] No growth <1,000 CFU/ml. Normal [facility] Comment on above: Performed By: #### G P8 #### [facility] [address] [place], [place] [address] Hemogram/Diffon 07-26-2020 Abs. Baso 0.07 thou/cmm Normal 0.00-0.08 [facility] Comment on above: Performed By: #### G CBCD #### [facility] [address] [place], [place] [address] Abs. Bosque 0.51 thou/cmm Normal 0.19-0.80 [facility] Comment on above: Performed By: #### G CBCD #### [facility] [address] [place] [address] Abs. Neut (ANC) 6.48 thou/cmm Normal 1.35-7.21 [facility] Comment on above: Performed By: #### G CBCD #### [place] [address] Basophils/100 WBC (Bld) 0.8 % Normal [facility] Comment on above: Performed By: #### G CBCD #### [place] [address] Eosinophils (Bld) [#/Vol] 0.41 10*3/uL High 0.00-0.36 [facility] Comment on above: Performed By: #### G CBCD #### [place] [address] Eosinophils/100 WBC (Bld) 4.6 % Normal [facility] Comment on above: Performed By: #### G CBCD #### [place] [address] Erythrocyte distribution width (RBC) [Ratio] 11.8 % Normal 11.8-14.5 [facility] Comment on above: Performed By: #### G CBCD #### [place] [address] Hematocrit (Bld) [Volume fraction] 50.0 % Normal 39.6-50.7 [facility] Comment on above: Performed By: #### G CBCD #### [place] [address] Hemoglobin (Bld) [Mass/Vol] 17.2 g/dL Normal 13.2-17.4 [facility] Comment on above: Performed By: #### G CBCD #### [facility] [address] [place], [place] [address] Lymphocytes (Bld) [#/Vol] 1.46 10*3/uL Normal 0.68-2.93 [facility] Comment on above: Performed By: #### G CBCD #### [facility] [address] [place], [place] [address] Lymphocytes/100 WBC (Bld) 16.4 % Normal [facility] Comment on above: Performed By: #### G CBCD #### [address] [address] MCH (RBC) [Entitic mass] 33.0 pg High 27.4-32.8 [facility] Comment on above: Performed By: #### G CBCD #### [place] [address] MCHC 34.4 % Normal 31.9-35.6 [facility] Comment on above: Performed By: #### G CBCD #### [address] [address] MCV (RBC) [Entitic vol] 96.0 fL High 81.8-95.6 [facility] Comment on above: Performed By: #### G CBCD #### [address] [address] Monocytes/100 WBC (Bld) 5.7 % Normal [facility] Comment on above: Performed By: #### G CBCD #### [address] [address] Platelet mean volume (Bld) [Entitic vol] 10.3 fL Normal 8.8-12.0 [facility] Comment on above: Performed By: #### G CBCD #### [address] [address] Platelets (Bld) [#/Vol] 295 10*3/uL Normal 150-370 [facility] Comment on above: Performed By: #### G CBCD #### [facility] [address] [place] [address] RBC 5.21 mil/cmm Normal 4.22-5.80 [facility] Comment on above: Performed By: #### G CBCD #### [facility] [address] [place] [address] Seg Neutrophil 72.5 % Normal [facility] Comment on above: Performed By: #### G CBCD #### [facility] [address] [place] [address] WBC (Bld) [#/Vol] 8.9 10*3/uL Normal 4.4-9.7 [facility] Comment on above: Performed By: #### G CBCD #### [place] [address] Hepatic Panelon 07-26-2020 Albumin [Mass/Vol] 4.1 g/dL Normal 3.4-5.0 [facility] Comment on above: Performed By: #### G HEPA #### [place] [address] ALP [Catalytic activity/Vol] 85 U/L Normal 46-116 [facility] Comment on above: Performed By: #### G HEPA #### [place] [address] ALT-SGPT Blood 38 U/L Normal 12-78 [facility] Comment on above: Performed By: #### G HEPA #### [place] [address] AST-SGOT Blood 23 U/L Normal 15-46 [facility] Comment on above: Performed By: #### G HEPA #### [place] [address] Bilirubin [Mass/Vol] 0.5 mg/dL Normal 0.2-1.0 [facility] Comment on above: Result Comment: Use of this assay is not recommended for patients undergoing treatment with eltrombopag due to the potential for falsely elevated results. Performed By: #### G HEPA #### [place] [address] Bilirubin.direct [Mass/Vol] 0.10 mg/dL Normal 0.00-0.20 [facility] Comment on above: Performed By: #### G HEPA #### [facility] [address] [place] [address] Protein [Mass/Vol] 8.2 g/dL Normal 6.4-8.2 [facility] Comment on above: Performed By: #### G HEPA #### [facility] [address] [place] [address] Lipase Bloodon 07-26-2020 Lipase Blood 90 U/L Normal 73-393 [facility] Comment on above: Performed By: #### G LIP #### [place] [address] MDRD eGFRon 07-26-2020 GFR/1.73 sq M.predicted among non-blacks MDRD (S/P/Bld) [Vol rate/Area] mL/min/{1.73_m2} Normal >60mL/min/1 .73m2 [facility] Comment on above: Result Comment: If t he patient is , multiply the result by 1.210. Performed By: #### G GFR #### [place] [address] Urinalysis Routineon 020 Amorphous Phosphates MODERATE Abnormal None [facility] Comment on above: Performed By: #### G URIN #### [place] [address] Appearance (U) 1+ (HAZY) Normal [facility] Comment on above: Performed By: #### G URIN #### [place] [address] Bacteria Urine FEW Abnormal None [facility] Comment on above: Performed By: #### G URIN #### [place] [address] Color (U) YELLOW Normal [facility] Comment on above: Performed By: #### G URIN #### [place] [address] Ep Cells Urine 2-5 Normal 0-5 [facility] Comment on above: Performed By: #### G URIN #### [facility] [address] [place] [address] Mucus Threads FEW Abnormal None [facility] Comment on above: Performed By: #### G URIN #### [facility] [address] [place] [address] RBC,Urine 0-3 Normal 0-3 [facility] Comment on above: Performed By: #### G URIN #### [facility] [address] [place] [address] WBC, Urine 2-5 Normal 0-5 [facility] Comment on above: Performed By: #### G URIN #### [facility] [address] [place] [address] Bilirubin Urine Negative Normal Negative [facility] Comment on above: Performed By: #### G URIN #### [facility] [address] [place] [address] Glucose Ql (U) Negative Normal Negative [facility] Comment on above: Performed By: #### G URIN #### [facility] [address] [place] [address] Hemoglobin,Urine Negative Normal Negative [facility] Comment on above: Performed By: #### G URIN #### [facility] [address] [place] [address] Ketone Urine Negative Normal Negative [facility] Comment on above: Performed By: #### G URIN #### [facility] [address] [place] [address] Leukocytes Esterase Negative Normal Negative [facility] Comment on above: Performed By: #### G URIN #### [facility] [address] [place] [address] Nitrites Urine Negative Normal Negative [facility] Comment on above: Performed By: #### G URIN #### [facility] [address] [place] [address] pH (U) 7.5 [pH] Normal 5.0-8.0 [facility] Comment on above: Performed By: #### G URIN #### [facility] [address] [place] [id number] Protein Urine Negative Normal Negative [facility] Comment on above: Performed By: #### G URIN #### [facility] [address] [place] [address] Specific [place], Ur 1.020 Normal 1.005-1.030 [facility] Comment on above: Performed By: #### G URIN #### [facility] [address] [place] [address] Urobilinogen,Ur 0.2 EU/dL Normal 0.2-1.0 [facility] Comment on above: Performed By: #### G URIN #### [facility] [address] [place], [place] [address] Vital Signs Date Time Vital Sign Value Performing Clinician Faci lity 01-18-2025 17:27-0500 Diastolic blood pressure 76 mm[Hg] Twin Wolfe MD Work Phone: [facility] 01-18-2025 17:27-0500 Heart rate 76 /min Twin Wolfe MD Work Phone: [facility] 01-18-2025 17:27-0500 Respiratory rate 16 /min Twin Wolfe MD Work Phone: [facility] 01-18-2025 17:27-0500 SaO2% (BldA) [Mass fraction] 95 % Twin Wolfe MD Work Phone: [facility] 01-18-2025 17:27-0500 Systolic blood pressure 126 mm[Hg] Twin Wolfe MD Work Phone: [facility] 01-18-2025 14:36-0500 Body height 165.1 cm Twin Wolfe MD Work Phone: [facility] 01-18-2025 14:36-0500 Body mass index (BMI) [Ratio] 25.21 kg/m2 Twin Wolfe MD Work Phone: [facility] 01-18-2025 14:36-0500 Body temperature 97.81 [degF] Twin Wolfe MD Work Phone: [facility] 01-18-2025 14:36-0500 Body weight 68.72 kg Twin Wolfe MD Work Phone: [facility] 12-31-2024 12:37-0500 Diastolic blood pressure 81 mm[Hg] Tanya [employer] DO Work Phone: [facility] 12-31-2024 12:37-0500 Heart rate 54 /min Tanya [employer] DO Work Phone: [facility] 12-31-2024 12:37-0500 Respiratory rate 16 /min [employer] DO Work Phone: [facility] 12-31-2024 12:37-0500 SaO2% (BldA) [Mass fraction] 99 % Tanya [employer] DO Work Phone: [facility] 12-31-2024 12:37-0500 Systolic blood pressure 148 mm[Hg] Tanya [employer] DO Work Phone: [facility] 12-31-2024 07:30-0500 Body height 165.1 cm Tanya [employer] DO Work Phone: [facility] 12-31-2024 07:30-0500 Body mass index (BMI) [Ratio] 24.13 kg/m2 Tanya [employer] DO Work Phone: [facility] 12-31-2024 07:30-0500 Body temperature 97.81 [degF] Tanya [employer] DO Work Phone: [facility] 12-31-2024 07:30-0500 Body weight 65.77 kg Tanya [employer] DO Work Phone: [facility] 09-24-2024 19:01-0500 Diastolic blood pressure 85 mm[Hg] Fredrick Howell MD Work Phone: [facility] 09-24-2024 19:01-0500 Heart rate 93 /min Fredrick Howell MD Work Phone: [employer] 09-24-2024 19:01-0500 Respiratory rate 18 /min Fredrick Howell MD Work Phone: [facility] 09-24-2024 19:01-0500 SaO2% (BldA) [Mass fraction] 100 % Fredrick Howell MD Work Phone: [facility] 09-24-2024 19:01-0500 Systolic blood pressure 175 mm[Hg] Fredrick Howell MD Work Phone: [facility] 09-24-2024 17:35-0500 Body height 165.1 cm Fredrick Howell MD Work Phone: [facility] 09-24-2024 17:35-0500 Body mass index (BMI) [Ratio] 26.63 kg/m2 Fredrick Howell MD Work Phone: [facility] 09-24-2024 17:35-0500 Body weight 72.58 kg Fredrick Howell MD Work Phone: [facility] 09-24-2024 14:25-0500 Body temperature 97 [degF] Fredrick Howell MD Work Phone: [facility] 06-15-2024 15:48-0400 Body height 165.1 cm Giorgio Fernandez DO Work Phone: [facility] 06-15-2024 15:48-0400 Body temperature 98.1 [degF] Giorgio Fernandez DO Work Phone: [facility] 06-15-2024 15:48-0400 Diastolic blood pressure 82 mm[Hg] Giorgio Fernandez DO Work Phone: [facility] 06-15-2024 15:48-0400 Heart rate 87 /min Giorgio Fernandez DO Work Phone: [facility] 06-15-2024 15:48-0400 SaO2% (BldA) [Mass fraction] 96 % Giorgio Fernandez DO Work Phone: [facility] 06-15-2024 15:48-0400 Systolic blood pressure 122 mm[Hg] Giorgio Fernandez DO Work Phone: [facility] 05-28-2024 19:38-0400 Body temperature 97.81 [degF] Alana Krishna MD Work Phone: [facility] 05-28-2024 19:38-0400 Diastolic blood pressure 78 mm[Hg] Alana Krishna MD Work Phone: [facility] 05-28-2024 19:38-0400 Heart rate 78 /min Alana Krishna MD Work Phone: [facility] 05-28-2024 19:38-0400 Respiratory rate 12 /min Alana Krishna MD Work Phone: [facility] 05-28-2024 19:38-0400 SaO2% (BldA) [Mass fraction] 97 % Alana Krishna MD Work Phone: [facility] 05-28-2024 19:38-0400 Systolic blood pressure 125 mm[Hg] Alana Krishna MD Work Phone: [facility] 04-13-2024 23:35-0400 Body height 165.1 cm Russ Castro MD Work Phone: [facility] 04-13-2024 23:35-0400 Body mass index (BMI) [Ratio] 26.63 kg/m2 Russ Castro MD Work Phone: [facility] 04-13-2024 23:35-0400 Body temperature 98.4 [degF] Russ Castro MD Work Phone: [facility] 04-13-2024 23:35-0400 Body weight 72.58 kg Russ Castro MD Work Phone: [facility] 04-13-2024 23:35-0400 Diastolic blood pressure 98 mm[Hg] Russ Castro MD Work Phone: [facility] 04-13-2024 23:35-0400 Heart rate 85 /min Russ Castro MD Work Phone: [facility] 04-13-2024 23:35-0400 Respiratory rate 16 /min Russ Castro MD Work Phone: [facility] 04-13-2024 23:35-0400 SaO2% (BldA) [Mass fraction] 98 % Russ Castro MD Work Phone: [facility] 04-13-2024 23:35-0400 Systolic blood pressure 117 mm[Hg] Russ Castro MD Work Phone: [facility] 01-30-2024 14:37-0400 Body height 165.1 cm Gary mbaski GAS STATION CLERK.DRY STARCH OPERATOR Work Phone: [facility] 01-30-2024 14:37-0400 Body temperature 97.2 [degF] [facility]ATION CL[facility].DRY STARCH OPERATOR Work Phone: [facility] 01-30-2024 14:37-0400 Body weight 68.95 kg [facility] G[facility] STATION CLERK.DRY STARCH OPERATOR Work Phone: [facility] 01-30-2024 14:37-0400 Diastolic blood pressure 64 mm[Hg] Gary mbaski GAS STATION CLERK.DRY STARCH OPERATOR Work Phone: [facility] 01-30-2024 14:37-0400 Heart rate 103 /min [facility] G[facility] STATION CLERK.DRY STARCH OPERATOR Work Phone: [facility] 01-30-2024 14:37-0400 SaO2% (BldA) [Mass fraction] 96 % [facility] GAS STATION CLERK.DRY STARCH OPERATOR Work Phone: [facility] 01-30-2024 14:37-0400 Systolic blood pressure 122 mm[Hg] Gary Gombaski GAS STATION CLERK.DRY STARCH OPERATOR Work Phone: [facility] 10-24-2023 12:57-0500 Body height 165.1 cm Liset Menjivar GAS STATION CLERK.DRY STARCH OPERATOR Work Phone: [facility] 10-24-2023 12:57-0500 Body temperature 96.8 [degF] Liset Menjivar GAS STATION CLERK.DRY STARCH OPERATOR Work Phone: [facility] 10-24-2023 12:57-0500 Body weight 68.95 kg Liset Menjivar GAS STATION CLERK.DRY STARCH OPERATOR Work Phone: [facility] 10-24-2023 12:57-0500 Diastolic blood pressure 86 mm[Hg] Liset Menjivar GAS STATION CLERK.DRY STARCH OPERATOR Work Phone: [facility] 10-24-2023 12:57-0500 Systolic blood pressure 146 mm[Hg] Liset Menjivar GAS STATION CLERK.DRY STARCH OPERATOR Work Phone: [facility] 08-08-2023 10:21-0400 Body height 165.1 cm Giorgio Fernandez DO Work Phone: [facility] 08-08-2023 10:21-0400 Body temperature 98.71 [degF] Giorgio Fernandez DO Work Phone: [facility] 08-08-2023 10:21-0400 Body weight 70.31 kg Giorgio Fernandez DO Work Phone: [facility] 08-08-2023 10:21-0400 Diastolic blood pressure 100 mm[Hg] Giorgio Fernandez DO Work Phone: [facility] 08-08-2023 10:21-0400 Heart rate 70 /min Giorgio Fernandez DO Work Phone: [facility] 08-08-2023 10:21-0400 SaO2% (BldA) [Mass fraction] 99 % Giorgio Fernandez DO Work Phone: [facility] 08-08-2023 10:21-0400 Systolic blood pressure 140 mm[Hg] Giorgio Fernandez DO Work Phone: [facility] 06-17-2023 11:18-0400 Body height 165.1 cm Giorgio Fernandez DO Work Phone: [facility] 06-17-2023 11:18-0400 Body temperature 98.29 [degF] Giorgio Fernandez DO Work Phone: [facility] 06-17-2023 11:18-0400 Body weight 70.31 kg Giorgio Mirandaight DO Work Phone: [facility] 06-17-2023 11:18-0400 Diastolic blood pressure 80 mm[Hg] Giorgio Mirandaight DO Work Phone: [facility] 06-17-2023 11:18-0400 Heart rate 79 /min Giorgio Mirandaight DO Work Phone: [facility] 06-17-2023 11:18-0400 SaO2% (BldA) [Mass fraction] 97 % Giorgio Mirandaight DO Work Phone: [facility] 06-17-2023 11:18-0400 Systolic blood pressure 100 mm[Hg] Giorgio Mirandaight DO Work Phone: [facility] 03-13-2023 09:46-0400 Body height 165.1 cm Giorgio Mirandaight DO Work Phone: [facility] 03-13-2023 09:46-0400 Body temperature 97.81 [degF] Giorgio Mirandaight DO Work Phone: [facility] 03-13-2023 09:46-0400 Body weight 73.48 kg Giorgio Fernandez DO Work Phone: [facility] 03-13-2023 09:46-0400 Diastolic blood pressure 102 mm[Hg] Giorgio Mirandaight DO Work Phone: [facility] 03-13-2023 09:46-0400 Heart rate 70 /min Giorgio Fernandez DO Work Phone: [facility] 03-13-2023 09:46-0400 SaO2% (BldA) [Mass fraction] 96 % Giorgio Fernandez DO Work Phone: [facility] 03-13-2023 09:46-0400 Systolic blood pressure 168 mm[Hg] Giorgio Mirandaight DO Work Phone: [facility] 02-04-2023 10:24-0400 Body height 165.1 cm Cindy Bolyard PA-C Work Phone: [facility] 02-04-2023 10:24-0400 Body temperature 98.49 [degF] Cindy Bolyard PA-C Work Phone: [facility] 02-04-2023 10:24-0400 Body weight 70.76 kg Cindy Bolyard PA-C Work Phone: [facility] 02-04-2023 10:24-0400 Diastolic blood pressure 64 mm[Hg] Cindy Bolyard PA-C Work Phone: [facility] 02-04-2023 10:24-0400 Heart rate 64 /min Cindy Bolyard PA-C Work Phone: [facility] 02-04-2023 10:24-0400 SaO2% (BldA) [Mass fraction] 97 % Cindy Bolyard PA-C Work Phone: [facility] 02-04-2023 10:24-0400 Systolic blood pressure 112 mm[Hg] Cindy Bolyard PA-C Work Phone: [facility] 01-31-2023 10:32-0400 Body height 165.1 cm Rina Rojas APRN.DRY STARCH OPERATOR Work Phone: [facility] 01-31-2023 10:32-0400 Body weight 72.58 kg Rina Rojas APRN.DRY STARCH OPERATOR Work Phone: [facility] 01-31-2023 10:32-0400 Diastolic blood pressure 70 mm[Hg] Rina Rojas APRN.DRY STARCH OPERATOR Work Phone: [facility] 01-31-2023 10:32-0400 Heart rate 82 /min Rina Rojas APRN.DRY STARCH OPERATOR Work Phone: [facility] 01-31-2023 10:32-0400 SaO2% (BldA) [Mass fraction] 98 % Rina Rojas APRN.DRY STARCH OPERATOR Work Phone: [facility] 01-31-2023 10:32-0400 Systolic blood pressure 100 mm[Hg] Rina Rojas DRY STARCH OPERATOR Work Phone: [facility] 12-26-2022 09:18-0500 Body height 165.1 cm Giorgio Fernandez DO Work Phone: [facility] 12-26-2022 09:18-0500 Body temperature 97.7 [degF] Giorgio Fernandez DO Work Phone: [facility] 12-26-2022 09:18-0500 Body weight 75.75 kg Giorgio Fernandez DO Work Phone: [facility] 12-26-2022 09:18-0500 Diastolic blood pressure 82 mm[Hg] Giorgio Fernandez DO Work Phone: [facility] 12-26-2022 09:18-0500 Heart rate 60 /min Giorgio Fernandez DO Work Phone: [facility] 12-26-2022 09:18-0500 SaO2% (BldA) [Mass fraction] 97 % Giorgio Fernandez DO Work Phone: [facility] 12-26-2022 09:18-0500 Systolic blood pressure 116 mm[Hg] Giorgio Fernandez DO Work Phone: [facility] 12-06-2022 11:07-0500 Body height 165.1 cm Shane Justice PA-C Work Phone: [facility] 12-06-2022 11:07-0500 Body temperature 96.6 [degF] Shane Justice PA-C Work Phone: [facility] 12-06-2022 11:07-0500 Body weight 74.39 kg Shane Justice PA-C Work Phone: [facility] 12-06-2022 11:07-0500 Diastolic blood pressure 80 mm[Hg] Shane Justice PA-C Work Phone: [facility] 12-06-2022 11:07-0500 Heart rate 60 /min Shane Justice PA-C Work Phone: [facility] 12-06-2022 11:07-0500 SaO2% (BldA) [Mass fraction] 96 % Shane Justice PA-C Work Phone: [facility] 12-06-2022 11:07-0500 Systolic blood pressure 126 mm[Hg] Shane Justice PA-C Work Phone: [facility] 11-28-2022 15:50-0500 Body height 165.1 cm Yokasta Kaylah DO Work Phone: [facility] 11-28-2022 15:50-0500 Body temperature 96.4 [degF] Yokasta Kaylah DO Work Phone: [facility] 11-28-2022 15:50-0500 Body weight 78.02 kg Yokasta Kaylah DO Work Phone: [facility] 11-28-2022 15:50-0500 Diastolic blood pressure 80 mm[Hg] Yokasta Kaylah DO Work Phone: [facility] 11-28-2022 15:50-0500 Heart rate 60 /min Yokasta Kaylah DO Work Phone: [facility] 11-28-2022 15:50-0500 SaO2% (BldA) [Mass fraction] 98 % Yokasta Kaylah DO Work Phone: [facility] 11-28-2022 15:50-0500 Systolic blood pressure 110 mm[Hg] Yokasta Kaylah DO Work Phone: [facility] 10-02-2022 13:42-0500 Body height 165.1 cm Giorgio Fernandez DO Work Phone: [facility] 10-02-2022 13:42-0500 Body temperature 97.11 [degF] Giorgio Fernandez DO Work Phone: [facility] 10-02-2022 13:42-0500 Body weight 75.75 kg Giorgio Fernandez DO Work Phone: [facility] 10-02-2022 13:42-0500 Diastolic blood pressure 82 mm[Hg] Giorgio Fernandez DO Work Phone: [facility] 10-02-2022 13:42-0500 Heart rate 85 /min Giorgio Fernandez DO Work Phone: [facility] 10-02-2022 13:42-0500 SaO2% (BldA) [Mass fraction] 95 % Giorgio Fernandez DO Work Phone: [facility] 10-02-2022 13:42-0500 Systolic blood pressure 122 mm[Hg] Giorgio Fernandez DO Work Phone: [facility] 09-14-2022 13:11-0400 Body height 165.1 cm Yokasta Kaylah DO Work Phone: [facility] 09-14-2022 13:11-0400 Body temperature 98.01 [degF] Yokasta Kaylah DO Work Phone: [facility] 09-14-2022 13:11-0400 Body weight 75.75 kg Yokasta Kaylah DO Work Phone: [facility] 09-14-2022 13:11-0400 Diastolic blood pressure 78 mm[Hg] Yokasta Kaylah DO Work Phone: [facility] 09-14-2022 13:11-0400 Heart rate 54 /min Yokasta Kaylah DO Work Phone: [facility] 09-14-2022 13:11-0400 SaO2% (BldA) [Mass fraction] 100 % Yokasta Kaylah DO Work Phone: [facility] 09-14-2022 13:11-0400 Systolic blood pressure 116 mm[Hg] Yokasta Kaylah DO Work Phone: [facility] 02-25-2022 12:45-0400 Body temperature 97.5 [degF] Og Tobar MD Work Phone: [facility] 02-25-2022 12:45-0400 Diastolic blood pressure 84 mm[Hg] Og Tobar MD Work Phone: [facility] 02-25-2022 12:45-0400 Heart rate 64 /min Og Tobar MD Work Phone: [facility] 02-25-2022 12:45-0400 Respiratory rate 18 /min Og Tobar MD Work Phone: [facility] 02-25-2022 12:45-0400 SaO2% (BldA) [Mass fraction] 97 % Og Tobar MD Work Phone: [facility] 02-25-2022 12:45-0400 Systolic blood pressure 120 mm[Hg] Og Tobar MD Work Phone: [facility] 11-08-2021 13:17-0500 Body temperature 97.5 [degF] Daisy Stinson MD Work Phone: [facility] 11-08-2021 13:17-0500 Diastolic blood pressure 99 mm[Hg] Daisy Stinson MD Work Phone: [facility] 11-08-2021 13:17-0500 Heart rate 83 /min Daisy Stinson MD Work Phone: [facility] 11-08-2021 13:17-0500 Respiratory rate 16 /min Daisy Stinson MD Work Phone: [facility] 11-08-2021 13:17-0500 SaO2% (BldA) [Mass fraction] 100 % Daisy Stinson MD Work Phone: [facility] 11-08-2021 13:17-0500 Systolic blood pressure 143 mm[Hg] Daisy Stinson MD Work Phone: [facility] 10-31-2021 15:31-0500 Body temperature 97.5 [degF] Jonn Mcdonnell MD Work Phone: [facility] 10-31-2021 15:31-0500 Body weight 77.11 kg Jonn Mcdonnell MD Work Phone: [facility] 10-31-2021 15:31-0500 Diastolic blood pressure 67 mm[Hg] Jonn Mcdonnell MD Work Phone: [facility] 10-31-2021 15:31-0500 Heart rate 64 /min Jonn Mcdonnell MD Work Phone: [facility] 10-31-2021 15:31-0500 Respiratory rate 18 /min Jonn Mcdonnell MD Work Phone: [facility] 10-31-2021 15:31-0500 SaO2% (BldA) [Mass fraction] 98 % Jonn Mcdonnell MD Work Phone: [facility] 10-31-2021 15:31-0500 Systolic blood pressure 107 mm[Hg] Jonn Mcdonnell MD Work Phone: [facility] Encounters Encounter Date Encounter Type Care Provider Facility Start: 04-19-2025 ambulatory Rose GARSIA Facil ity:[facility] Start: 04-19-2025 Registered Referred Rose Murdock [facility] [address] Start: 04-14-2025 ambulatory Rose GARSIA Facil ity:[facility] Start: 04-14-2025 Registered Referred Rose Clark -Sofía [facility]tercare [facility] - [address] Start: 03-23-2025 End: 03-23-2025 ambulatory Rose GARSIA [facility] Work Phone: Start: 03-23-2025 End: 03-23-2025 Departed Referred Rose Clark -Jenn [facility] - [address] Start: 03-23-2025 Registered Referred Rose Clark -Sofía ltbillare [facility] - [address] Start: 03-23-2025 End: 03-23-2025 ambulatory Rose GARSIA Facility:[facility] Start: 03-15-2025 End: 03-15-2025 ambulatory Rose GARSIA [facility] Work Phone: Start: 03-15-2025 End: 03-15-2025 Departed Referred Rose Clark -Jenn Irma - [address] Start: 03-15-2025 End: 03-15-2025 ambulatory Rose GARSIA Facility:[facility] Start: 01-25-2025 End: 01-25-2025 ambulatory Rose GARSIA [facility] Work Phone: Start: 01-25-2025 End: 01-25-2025 Departed Referred Rose Solis - [address] Start: 01-25-2025 Registered Referred Rose Solis - [address] Start: 01-25-2025 End: 01-25-2025 ambulatory Rose GARSIA Facility:[facility] Start: 01-20-2025 End: 01-20-2025 ambulatory Rose GARSIA [facility] Work Phone: Start: 01-20-2025 End: 01-20-2025 Departed Referred Rose Solis - [address] Start: 01-20-2025 End: 01-20-2025 ambulatory Rose GARSIA Facility:[facility] Start: 01-18-2025 End: 01-18-2025 Emergency department patient visit Twin Wolfe MD Work Phone: [facility] Comment on above: Fall, initial encoun ter (Primary Dx); Closed head injury, initial encounter Start: 01-15-2025 End: 01-15-2025 ambulatory Rose GARSIA [facility] Work Phone: Start: 01-15-2025 End: 01-15-2025 Departed Referred Rose Solis - [address] Start: 01-15-2025 Registered Referred Rose Solis - [address] Start: 01-15-2025 End: 01-15-2025 ambulatory Rose GARSIA Facility:[facility] Start: 12-31-2024 End: 12-31-2024 Emergency department patient visit Tanya Jung DO Work Phone: [facility] ED Comment on above: Agitation due to dem entia (HCC) (Primary Dx) Start: 09-24-2024 End: 09-24-2024 Emergency department patient visit Fredrick Howell MD Work Phone: [facility] Comment on above: Fall, initial encoun ter (Primary Dx); Closed head injury, initial encounter Start: 09-15-2024 Emergency department patient visit GIORGIO FERNANDEZ Facility:[facility] Start: 09-15-2024 End: 09-15-2024 ambulatory Rose GARSIA Facility:[facility] Start: 09-14-2024 End: 09-14-2024 Refill Giorgio Fernandez DO Work Phone: [facility] Comment on above: Refill Request Start: 08-18-2024 End: 08-18-2024 ambulatory Rose GARSIA Facility:[facility] Start: 07-28-2024 End: 07-29-2024 Emergency department patient visit KATIA BACA Facility:[facility] Start: 07-14-2024 End: 07-14-2024 Telephone encounter Ze Stock MD Work Phone: [facility] Comment on above: Modified Stan carter Start: 07-02-2024 Telephone encounter Gary Matute APRN.DRY STARCH OPERATOR Work Phone: [facility] Start: 06-29-2024 End: 06-29-2024 ambulatory Rose GARSIA Facility:[facility] Start: 06-26-2024 ambulatory Anita Barrera RN [employer] Start: 06-26-2024 Home visit Anita Barrera RN [facility] [employer] Comment on above: Transition Of Care ( TCM. Admitted to [facility]) Start: 06-25-2024 Refill Giorgio Fernandez DO Work Phone: [facility] Comment on above: Refill Request Start: 06-25-2024 Emergency department patient visit GIORGIO FERNANDEZ Facility:[facility] Start: 06-24-2024 Telephone encounter Giorgio Fernandez DO Work Phone: [facility] Comment on above: Release Of Medical R ecords Start: 06-22-2024 Refill Giorgio Fernandez DO Work Phone: [facility] Comment on above: Refill Request Start: 06-22-2024 Refill Giorgio Fernandez DO Work Phone: [facility] Comment on above: Refill Request Start: 06-19-2024 ambulatory Maria Isabel Pisano RN [facility] Start: 06-19-2024 Home visit Maria Isabel Pisano RN [facility] Comment on above: Population Health Na vigation Outreach (Discharged from [facility] to Home with Home Health Care) Initial phone contac t for Transitional Care Management Start: 06-18-2024 ambulatory Serena Mccray [facility] Start: 06-17-2024 Telephone encounter Giorgio Fernandez DO Work Phone: [facility] Comment on above: Home Health Orders ( [facility]) Start: 06-15-2024 End: 06-15-2024 Patient encounter procedure Giorgio Fernandez DO Work Phone: 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 [employer] [facility] Radiology Comment on above: Arrived Start: 05-28-2024 End: 05-28-2024 Emergency department patient visit Alana Krishna MD Work Phone: [facility] ED Comment on above: Encounter for medica l screening examination (Primary Dx) Start: 05-22-2024 ambulatory Maria Isabel Pisano RN [facility] Start: 05-22-2024 Home visit Maria Isabel Pisano RN [facility] Comment on above: Transition Of Care ( [facility] [facility]) Start: 05-19-2024 ambulatory Fariha Turpin RN [employer] Start: 05-19-2024 Evaluation and manag ement of inpatient Fariha Turpin RN AG [employer] Comment on above: Transition Of Care ( Inpatient TCM visit) Start: 05-18-2024 Admission to same day surgery center Vida Gold MD Work Phone: Neurosurgery Comment on above: Stroke-like symptom (Primary Dx) Start: 05-18-2024 ambulatory Maria Isabel Pisano RN AG Amb [facility] Care Start: 05-18-2024 Home visit Maria Isabel Pisano RN AG [facility] Comment on above: Transition Of Care ( Discharged from [facility] to [facility]) Start: 05-18-2024 Telemedicine consult ation with patient Vida Gold MD Work Phone: Neurosurgery Start: 05-18-2024 Emergency department patient visit GIORGIO FERNANDEZ Facility:[facility] Start: 05-14-2024 ambulatory Edna patel RN Work Phone: [employer] Start: 05-14-2024 Patient encounter procedure Kailey Helton RN Work Phone: [employer] Comment on above: JAIMIE COLLADO RN ( ED Utilization Review per request of payor/) Start: 05-01-2024 ambulatory Maria Isabel Pisano RN AG [facility] Care Start: 05-01-2024 Home visit Maria Isabel Pisano RN AG [facility] Comment on above: Transition Of Care ( [facility] discharge to [facility]) Start: 04-30-2024 End: 05-15-2024 ambulatory SELENA HAZEL Facility:[facility] Start: 04-30-2024 End: 05-15-2024 Subsequent hospital visit by physician Selena Hazel DO Work Phone: [facility] Start: 04-27-2024 Patient Update Ramirez Cantor MD Work Phone: Endovascular Center Comment on above: Orders Start: 04-15-2024 Evaluation and manag ement of inpatient RAMIREZ CANTOR Facility:[facility] Start: 04-15-2024 Admission to same day surgery center Radha Malhotra MD Work Phone: Neurosurgery Comment on above: Arterial ischemic st roke (HCC) (Primary Dx) Start: 04-15-2024 ambulatory Tanya Whiting DEIRDRE [facility] Start: 04-15-2024 Patient encounter procedure Tanya Whiting DEIRDRE [facility] Comment on above: Transition Of Care ( [facility] ed d/c 04/14/24) Start: 04-15-2024 Telemedicine consult ation with patient Radha Malhotra MD Work Phone: Neurosurgery Start: 04-15-2024 ambulatory RADHA MALHOTRA [facility] Start: 04-14-2024 End: 04-14-2024 Subsequent hospital visit by physician [facility] Comment on above: Arrived Start: 04-13-2024 End: 04-14-2024 Emergency department patient visit Russ Castro MD Work Phone: [facility] Emergency Dept Comment on above: Acute left-sided low back pain with left-sided sciatica (Primary Dx) Start: 04-10-2024 ambulatory Mallory Tellez RN KRISTAL SE ENVIRONMENTAL HEALTH TECHNICIAN Comment on above: Pain, Back Start: 04-09-2024 Telephone encounter Gary Matute APRN.DRY STARCH OPERATOR Work Phone: [facility] Comment on above: No Show Start: 03-18-2024 Refill Gary benites GAS STATION CLERK.DRY STARCH OPERATOR Work Phone: [facility] Comment on above: Refill Request (clar itin) Start: 01-30-2024 End: 01-30-2024 Patient encounter procedure Gary Matute GAS STATION CLERK.DRY STARCH OPERATOR Work Phone: [facility] Comment on above: Acute non-recurrent pansinusitis (Primary Dx); Active advance directive Start: 01-15-2024 Refill Giorgio Fernandez DO Work Phone: [facility] Comment on above: Refill Request (mecl izine) Start: 01-12-2024 ambulatory Edna correa RN NURSE ENVIRONMENTAL HEALTH TECHNICIAN Comment on above: Confusion Start: 10-24-2023 Telephone encounter Giorgio Rody Fernandez DO Work Phone: 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; Aortic dilatation (HCC); Laceration of right eyebrow, subsequent encounter Start: 10-06-2023 End: 10-07-2023 Emergency department patient visit CARYL HUTSON DO~[id number] [facility] Start: 08-08-2023 End: 08-08-2023 Patient encounter procedure Giorgio Fernandez DO Work Phone: [facility] Comment on above: Weight loss (Primary Dx); 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 Comment on above: Dizziness Start: 08-05-2023 Refill Giorgio Fernandez DO Work Phone: [facility] Comment on above: Refill Request (mecl izine) Start: 07-24-2023 Telephone encounter Cindy Ring PA-C Work Phone: [facility] Start: 07-10-2023 Refill Giorgio Fernandez DO Work Phone: [facility] Comment on above: Refill Request (venl afaxine) Start: 06-18-2023 End: 06-18-2023 ambulatory Caleb Benjamin OTR/L Work Phone: [facility] Comment on above: Cerebellar stroke (H CC) (Primary Dx); Vascular dementia without behavioral disturbance (HCC) Start: 06-17-2023 End: 06-17-2023 Patient encounter procedure Giorgio Villa Chava DO Work Phone: [facility] Comment on above: Lateral epicondyliti s of right elbow (Primary Dx); Anxiety with depression; Stage 3a chronic kidney disease (HCC); High cholesterol Start: 05-08-2023 Telephone encounter Giovanni gan GAS STATION CLERK - DRY STARCH OPERATOR Work Phone: [facility] Geriatric[facility] Comment on above: Driving Eval Start: 05-06-2023 Refill Giorgio Fernandez DO Work Phone: [facility] Comment on above: Refill Request Start: 04-16-2023 Refill Alem Fountain v, MD Work Phone: [facility] Comment on above: Refill Request Start: 03-13-2023 End: 03-13-2023 Patient encounter procedure Giorgio Villa Chava DO Work Phone: [facility] Comment on above: Primary hypertension (Primary Dx); Vertigo; TIA (transient ischemic attack); Carotid stenosis, right; Pure hypercholesterolemia Start: 03-05-2023 Telephone encounter Giorgio Fernandez DO Work Phone: [facility] Comment on above: Patient Question Start: 02-25-2023 Patient Outreach Tanya Whiting LP N [facility] Comment on above: Transition Of Care ( [facility] d/c 02/24/23) Start: 02-22-2023 Telephone encounter Twin Lynch MD Work Phone: Neurosurgery Comment on above: Potential Stroke Sym ptoms Start: 02-11-2023 ambulatory Monik Marks RN AG VNS Start: 02-11-2023 Follow-up encounter Monik Marks RN AG [employer] Comment on above: Transition Of Care ( TCM Follow up) Start: 02-08-2023 Telephone encounter Giorgio Rody Fernandez DO Work Phone: [facility] Comment on above: Illness Start: 02-04-2023 End: 02-04-2023 Patient encounter procedure Cindy Sofía Ring PA-C Work Phone: [facility] Comment on above: TIA (transient ische fe attack) (Primary Dx); Carotid stenosis, right; Left-sided weakness; Chronic abdominal pain; Primary hypertension; Pure hypercholesterolemia; Active advance directive; Hypocalcemia Start: 01-31-2023 End: 01-31-2023 Patient encounter procedure Rina Rojas APRN.DRY STARCH OPERATOR Work Phone: [facility] Comment on above: S/P carotid endarter ectomy (Primary Dx); Dizziness; Nausea; Epigastric pain; Fatigue, unspecified type Start: 01-30-2023 ambulatory Citlalli Vega RN NURSE ENVIRONMENTAL HEALTH TECHNICIAN Comment on above: Information Start: 01-28-2023 Patient Outreach Monik Marks RN [employer] Comment on above: Transition Of Care ( D/C from [facility] 01/26/23 to Home) Start: 01-20-2023 Telephone encounter Michelle viveros [facility] Comment on above: Home Care (Follow fo r [facility] ) Start: 01-19-2023 ambulatory Andrew reynoso MD Work Phone: Neurosurgery Comment on above: Cerebrovascular acci dent (CVA) due to stenosis of right carotid artery (HCC) (Primary Dx) Start: 01-19-2023 Telemedicine consult ation with patient Andrew Hester MD Work Phone: [facility] Start: 01-18-2023 Telephone encounter Giorgio Rdoy Fernandez DO Work Phone: [facility] Comment on above: Nurse Triage Call Opened In Error Start: 01-16-2023 End: 01-16-2023 Patient encounter procedure Radha Carlisle APRN.DRY STARCH OPERATOR Work Phone: [facility] ([place]) Comment on above: Adjustment disorder with mixed anxiety and depressed mood (Primary Dx); Vascular dementia without behavioral disturbance (HCC) Start: 01-08-2023 End: 01-08-2023 ambulatory Caleb Alejosimone OTR/L Work Phone: [facility] Comment on above: Vascular dementia wi thout behavioral disturbance (HCC) (Primary Dx); Cerebellar stroke (HCC) Start: 12-31-2022 Telephone encounter Giorgio Fernandez DO Work Phone: [facility] Comment on above: Results Start: 12-26-2022 End: 12-26-2022 Subsequent hospital visit by physician Christal Almeida [facility] Comment on above: Foot pain, left [[id number] .[id number]] Start: 12-26-2022 End: 12-26-2022 Patient encounter procedure Giorgio Fernandez DO Work Phone: [facility] Comment on above: Foot pain, left (Tra citlalli Dx); Advance care planning; High cholesterol; Primary hypertension; Left leg claudication (HCC) Start: 12-25-2022 Telephone encounter Giorgio Fernandez DO Work Phone: [facility] Comment on above: feet swelling Start: 12-06-2022 End: 12-06-2022 Patient encounter procedure Shane Justice PA-C Work Phone: [facility] Comment on above: Gastroenteritis (Tra citlalli Dx); PUD (peptic ulcer disease); Moses's esophagus without dysplasia Start: 12-05-2022 Telephone encounter Giorgio Fernandez DO Work Phone: [facility] Comment on above: Nurse Triage Call Start: 12-01-2022 Refill Alem Fountain v, MD Work Phone: [facility] [place] Start: 11-28-2022 End: 11-28-2022 Office outpatient visit 25 minutes Yokasta Adrian DO Work Phone: [facility] Comment on above: Anxiety with depress ion (Primary Dx); Major depressive disorder, recurrent, in full remission (HCC) Start: 11-28-2022 Telephone encounter Giorgio Fernandez DO Work Phone: [facility] Comment on above: Nurse Triage Call Start: 11-01-2022 Telephone encounter Giovanni Allen malik GAS STATION CLERK - DRY STARCH OPERATOR Work Phone: [facility] Geriatrics Comment on above: driving eval Start: 10-02-2022 End: 10-02-2022 Patient encounter procedure Giorgio Daisy Chava DO Work Phone: [facility] Comment on above: Encounter for annual wellness exam in Medicare patient (Primary Dx); Advance care planning; Lumbar radiculopathy; Sciatica associated with disorder of lumbar spine; 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, unspecified vessel or lesion type; HTN (hypertension), benign; Moses's esophagus without dysplasia; Recurrent major depressive disorder, in full remission (HCC); High cholesterol; Need for vaccination Start: 09-19-2022 Telephone encounter Shane Justice PA-C Work Phone: [facility] Comment on above: Patient Update Start: 09-18-2022 ambulatory Shane Justice PA-C Work Phone: [employer] Start: 09-14-2022 Telephone encounter Yokasta Adrian DO Work Phone: [facility] Comment on above: Consult (PSYCHIATRY) Start: 09-14-2022 End: 09-14-2022 Patient encounter procedure Yokasta Kaylah DO Work Phone: [facility] Comment on above: Viral gastroenteriti s (Primary Dx); Anxiety with depression Start: 09-10-2022 Telephone encounter Giorgio Fernandez DO Work Phone: [facility] Comment on above: Contact Center Call Start: 08-21-2022 ambulatory Alem Grayson [facility] Start: 07-16-2022 ambulatory [facility] Start: 07-16-2022 End: 07-16-2022 Subsequent hospital visit by physician Daisy Costello MD Work Phone: [facility] Start: 07-09-2022 End: 07-09-2022 Subsequent hospital visit by physician Daisy Costello MD Work Phone: [facility] Start: 06-28-2022 End: 06-28-2022 Subsequent hospital visit by physician Daisy Costello MD Work Phone: [facility] Start: 06-04-2022 ambulatory [facility] Start: 06-04-2022 End: 06-04-2022 Subsequent hospital visit by physician Daisy Costello MD Work Phone: [facility] Start: 05-29-2022 ambulatory [facility] Start: 05-29-2022 End: 05-29-2022 Subsequent hospital visit by physician Giovanni Reyes GAS STATION CLERK - DRY STARCH OPERATOR Work Phone: [facility] Start: 05-15-2022 ambulatory [facility] Start: 05-14-2022 End: 05-14-2022 Subsequent hospital visit by physician Daisy Costello MD Work Phone: [facility] Start: 05-03-2022 ambulatory [facility] Start: 05-03-2022 End: 05-03-2022 Subsequent hospital visit by physician Alem Hopkins MD Work Phone: [facility] X-Ray Comment on above: Gait disorder Start: 05-01-2022 End: 05-01-2022 Subsequent hospital visit by physician Daisy Costello MD Work Phone: [facility] Start: 04-26-2022 End: 04-26-2022 Subsequent hospital visit by physician Daisy Costello MD Work Phone: [facility] Start: 04-19-2022 End: 04-19-2022 Subsequent hospital visit by physician Daisy Costello MD Work Phone: [facility] Start: 04-12-2022 End: 04-12-2022 Patient encounter procedure Dianna Traylor PhD Work Phone: [facility] Comment on above: Postconcussion syndr ome (Primary Dx) Start: 04-11-2022 End: 04-11-2022 Subsequent hospital visit by physician Daisy Costello MD Work Phone: [facility] Start: 04-09-2022 End: 04-09-2022 Subsequent hospital visit by physician Daisy Costello MD Work Phone: [facility] Start: 04-06-2022 ambulatory Giovanni Reyes [facility] Start: 04-05-2022 ambulatory Frederic Ron [facility] Start: 04-04-2022 End: 04-04-2022 Subsequent hospital visit by physician Daisy Costello MD Work Phone: [facility] Start: 04-02-2022 End: 04-02-2022 Subsequent hospital visit by physician Daisy Costello MD Work Phone: [facility] Start: 03-30-2022 End: 03-30-2022 Subsequent hospital visit by physician Daisy Costello MD Work Phone: [facility] Start: 03-28-2022 End: 03-28-2022 Subsequent hospital visit by physician Daisy Costello MD Work Phone: [facility] Start: 03-27-2022 ambulatory Hector [facility] Start: 03-21-2022 End: 03-21-2022 Subsequent hospital visit by physician Daisy Costello MD Work Phone: [facility] Start: 03-14-2022 End: 03-14-2022 Subsequent hospital visit by physician Daisy Costello MD Work Phone: [facility] Start: [facility] Start: 03-07-2022 End: 03-07-2022 Subsequent hospital visit by physician Daisy Costello MD Work Phone: [facility] Start: 02-25-2022 End: 02-25-2022 [facility] Start: 02-25-2022 End: 02-25-2022 Emergency department patient visit Og Tobar MD Work Phone: [facility] Emergency Dept Comment on above: Head injury, initial encounter (Primary Dx); Post concussive syndrome; Fall, initial encounter; Carotid artery calcification, unspecified laterality Start: 02-21-2022 End: 02-21-2022 Subsequent hospital visit by physician Daisy Costello MD Work Phone: [facility] Start: 02-01-[facility] Start: 02-01-2022 End: 02-01-2022 Subsequent hospital visit by physician Kathrin Koroma GAS STATION CLERK - DRY STARCH OPERATOR Work Phone: [facility] Start: 01-30-2022 End: 01-30-2022 Subsequent hospital visit by physician Kathrin Koroma GAS STATION CLERK - DRY STARCH OPERATOR Work Phone: [facility] Start: 01-25-2022 End: 01-25-2022 Subsequent hospital visit by physician Kathrin Koroma GAS STATION CLERK - DRY STARCH OPERATOR Work Phone: [facility] Start: 01-22-2022 End: 01-22-2022 Subsequent hospital visit by physician Kathrin Koroma GAS STATION CLERK - DRY STARCH OPERATOR Work Phone: [facility] Start: 01-18-2022 End: 01-18-2022 Subsequent hospital visit by physician Kathrin Koroma GAS STATION CLERK - DRY STARCH OPERATOR Work Phone: [facility] Start: 01-16-2022 End: 01-16-2022 Subsequent hospital visit by physician Kathrin Carrion CNP Work Phone: [facility] Start: 11-08-2021 End: 11-08-2021 Emergency department patient visit [facility] Start: 11-08-2021 End: 11-08-2021 Emergency department patient visit Daisy Stinson MD Work Phone: [facility] Comment on above: Concussion with loss of consciousness, subsequent encounter (Primary Dx) Start: 10-31-2021 End: 10-31-2021 Emergency department patient visit [facility] Start: 10-31-2021 End: 10-31-2021 Emergency department patient visit Jonn Mcdonnell MD Work Phone: [facility] Comment on above: Injury of head, init ial encounter (Primary Dx); Abrasion of left elbow, initial encounter; Sprain of right shoulder, unspecified shoulder sprain type, initial encounter Procedures Date Procedure Procedure Detail Performing Clinician Start: 03-23-2025 Urnls dip stick/tabl et reagent auto microscopy Rose AGRSIA Start: 01-18-2025 Ct cervical spine w/ o contrast material Twin Wolfe MD Work Phone: Start: 01-18-2025 Ct head/brain w/o co ntrast material Twin Wolfe MD Work Phone: Start: 12-31-2024 Urinalysis complete panel - Urine Tanya [employer] DO Work Phone: Start: 12-31-2024 Urnls dip stick/tabl et reagent auto microscopy Tanya Sofía [employer] DO Work Phone: Start: 12-31-2024 Basic metabolic pane l calcium total Tanya Gore [employer] DO Work Phone: Start: 09-24-2024 Basic metabolic pane l calcium total Sloane Saldaña MD Work Phone: Start: 09-24-2024 Ct cervical spine w/ o contrast material Fredrick Slabinski MD Work Phone: Start: 09-24-2024 Ct head/brain w/o co ntrast material Sloane Saldaña MD Work Phone: Start: 05-28-2024 Ct abdomen & pelvis w/contrast material Alana Krishna MD Work Phone: Start: 05-28-2024 Ct cervical spine w/ o contrast material Alana Krishna MD Work Phone: Start: 05-28-2024 Ct head/brain w/o co ntrast material Alana Krishna MD Work Phone: Start: 05-28-2024 Ecg routine ecg w/le ast 12 lds trcg only w/o i&r Alana Krishna MD Work Phone: Start: 05-28-2024 Comprehensive metabo lic panel Alana Krishna MD Work Phone: Start: 05-28-2024 Radiologic exam ches t single view Alana Krishna MD Work Phone: Start: 05-18-2024 Antibody screen KATIA BACA Comment on above: Order Comment: Speci men Type: BLOOD SPECIMENOrdering Facility: [facility] Address: [address] [place] [address] Performed By: #### T SCR ####[facility] BLOOD [facility] [id number] [place] [address] [place] Start: 05-11-2024 Blood count complete automated Selena Hazel DO Work Phone: Start: 05-07-2024 Basic metabolic pane l calcium total Selena A Bob DO Work Phone: Start: 05-05-2024 Basic metabolic pane l calcium total Isai Lagunas MD Work Phone: Start: 05-04-2024 Basic metabolic pane l calcium total Selena Hazel DO Work Phone: Start: 04-16-2024 Lipid 1996 panel - S luis enrique or Plasma Ramirez Cantor MD Work Phone: Start: 04-14-2024 End: 04-14-2024 Radex spine lumbosacral 2/3 views Russ Castro MD Work Phone: Start: 10-25-2023 Lipid 1996 panel - S luis enrique or Plasma Liset Menjivar GAS STATION CLERK.DRY STARCH OPERATOR Work Phone: Start: 06-19-2023 Lipid 1996 panel - S luis enrique or Plasma Giorgio Fernandez DO Work Phone: Start: 10-02-2022 INFLUENZA SEASONAL QUADRIVALENT HIGH DOSE AGE 65+ Giorgio Fernandez DO Work Phone: Start: 02-25-2022 Ct cervical spine w/ o contrast material Og Tobar MD Work Phone: Start: 02-25-2022 Ct head/brain w/o co ntrast material Og Tobar MD Work Phone: Start: 02-25-2022 Ecg routine ecg w/le ast 12 lds w/i&r Og Tobar MD Work Phone: Start: 11-08-2021 Ct head/brain w/o co ntrast material Daisy Stinson MD Work Phone: Start: 10-31-2021 End: 10-31-2021 Radex elbow complete minimum 3 views Jonn Mcdonnell MD Work Phone: Start: 10-31-2021 Ct cervical spine w/ o contrast material Jonn Mcdonnell MD Work Phone: Start: 10-31-2021 Ct head/brain w/o co ntrast material Jonn Mcdonnell MD Work Phone: Start: 12-08-2018 Ascencion Brantley PhD Work Phone: History of carotid endarterectomy S/P carotid endarterectomy Rina Rojas GAS STATION CLERK.DRY STARCH OPERATOR Work Phone: Plan of Treatment Date Care Activity Detail Author Start: 10-06-2033 DTaP/Tdap/Td Vaccines (3 - Td or Tdap) DTaP/Tdap/Td Vaccines (3 - Td or Tdap) [facility] Start: 10-06-2033 Urine microalbumin profile DTaP,Tdap,Td Vaccine (4 - Td or Tdap) [facility] Start: 04-27-2031 DTaP/Tdap/Td vaccine (2 - Td or Tdap) DTaP/Tdap/Td vaccine (2 - Td or Tdap) [facility] Start: 04-27-2031 DTaP/Tdap/Td Vaccines (2 - Td or Tdap) DTaP/Tdap/Td Vaccines (2 - Td or Tdap) [facility] Start: 04-27-2031 Urine microalbumin profile [facility] Start: 04-16-2029 Lipid panel Lipid Screening [facility] Start: 12-08-[address] [facility] Start: 12-08-2028 COLORECTAL CANCER SCREENING COLORECTAL CANCER SCREENING [facility] Start: 12-08-2028 Screening for malignant neoplasm of colon [facility] Start: 10-25-2028 Lipid 1996 panel - Serum or Plasma Lipid Screening [facility] Start: 10-25-2028 Lipid panel Lipid Screening [facility] Start: 06-19-2028 Lipid 1996 panel - Serum or Plasma Lipid Screening [facility] Start: 06-19-2028 LIPID SCREEN LIPID SCREEN [facility] Start: 02-24-2028 LIPID SCREEN LIPID SCREEN [facility] Start: 12-26-2027 LIPID SCREEN LIPID SCREEN [facility] Start: 10-05-2027 LIPID SCREEN LIPID SCREEN [facility] Start: 05-28-2027 Diabetes Screening Diabetes Screening [facility] Start: 05-20-2027 Diabetes Screening Diabetes Screening [facility] Start: 05-19-2027 Diabetes Screening Diabetes Screening [facility] Start: 05-18-2027 Diabetes Screening Diabetes Screening [facility] Start: 05-07-2027 Diabetes Screening Diabetes Screening [facility] Start: 04-30-2027 Diabetes Screening Diabetes Screening [facility] Start: 04-27-2027 Diabetes Screening Diabetes Screening [facility] Start: 10-25-2026 Diabetes Screening Diabetes Screening [facility] Start: 06-19-2026 DIABETES SCREEN DIABETES SCREEN [facility] [facility] Start: 06-19-2026 Diabetes Screening Diabetes Screening [facility] Start: 02-24-2026 DIABETES SCREEN DIABETES SCREEN [facility] Start: 02-23-2026 Diabetes mellitus screening Diabetes Screening [facility] Start: 02-22-2026 DIABETES SCREEN DIABETES SCREEN [facility] Start: 01-26-2026 DIABETES SCREEN DIABETES SCREEN [facility] Start: 01-19-2026 DIABETES SCREEN DIABETES SCREEN [facility] Start: 12-29-2025 LIPID SCREEN LIPID SCREEN [facility] Start: 12-26-2025 DIABETES SCREEN DIABETES SCREEN [facility] Start: 10-04-2025 DIABETES SCREEN DIABETES SCREEN [facility] Start: 06-15-2025 Annual PCP Team Chronic Disease Visit Annual PCP Team Chronic Disease Visit [facility] Start: 05-28-2025 Creatinine measurement Serum Creatinine [facility] Start: 05-20-2025 Creatinine measurement Serum Creatinine [facility] Start: 05-19-2025 Creatinine measurement Serum Creatinine [facility] Start: 05-18-2025 Complete blood count Hemoglobin/Hematocrit [facility] Start: 05-18-2025 Creatinine measurement Serum Creatinine [facility] Start: 05-07-2025 Creatinine measurement Serum Creatinine [facility] Start: 04-30-2025 Creatinine measurement Serum Creatinine [facility] Start: 04-16-2025 Diabetes mellitus screening Diabetes Screening [facility] Start: 04-16-2025 Hepatitis B surface antibody level LDL Cholesterol [facility] Start: 01-29-2025 Annual PCP Team Chronic Disease Visit Annual PCP Team Chronic Disease Visit [facility] Start: 01-29-2025 BP Controlled (<130/80) BP Controlled (<130/80) [facility] Start: 12-10-2024 Annual PCP Team Chronic Disease Visit Annual PCP Team Chronic Disease Visit [facility] Start: 12-10-2024 BP Controlled (<130/80) BP Controlled (<130/80) [facility] Start: 11-18-2024 Medicare Advantage Annual Wellness Visit Medicare Advantage Annual Wellness Visit [facility] Start: 10-25-2024 Complete blood count Hemoglobin/Hematocrit [facility] Start: 10-25-2024 Creatinine measurement Serum Creatinine [facility] Start: 10-25-2024 Hemoglobin/Hematocrit Hemoglobin/Hematocrit [facility] Start: 10-25-2024 Hepatitis B surface antibody level LDL Cholesterol [facility] Start: 10-25-2024 Serum Creatinine Serum Creatinine [facility] Start: 10-24-2024 Annual PCP Team Chronic Disease Visit Annual PCP Team Chronic Disease Visit [facility] Start: 08-11-2024 End: 08-11-2024 Patient encounter procedure 08/11/2024 1:00 PM EDT Office Visit [facility] [address] [place] [address] [place] [address] Gary Matute APRN.DRY STARCH OPERATOR [address] [place] [address] [place] [address] follow up [facility] Comment on above: follow up Start: 07-29-2024 End: 07-29-2024 Patient encounter procedure 07/29/2024 1:15 PM EDT Appointment [facility] [address] [place] [address] Acute ischemic right MCA stroke (HCC) [I63.511] [facility] Comment on above: Acute ischemic right MCA stroke (HCC) [I 63.511] Start: 07-19-2024 Covid-19 Vaccine ( season) Covid-19 Vaccine () [facility] Start: 07-19-[address] [facility] Start: 06-21-2024 DIABETES SCREEN DIABETES SCREEN [facility] Start: 06-19-2024 Hepatitis B surface antibody level LDL CHOLESTEROL [facility] Start: 06-19-2024 SERUM CREATININE SERUM CREATININE [facility] Start: 06-17-2024 ANNUAL PCP TEAM CHRONIC DISEASE VISIT ANNUAL PCP TEAM CHRONIC DISEASE VISIT [facility] Start: 06-15-2024 End: 06-15-2024 Patient encounter procedure 06/15/2024 4:00 PM EDT Office Visit [facility] [address] [place] [address] [place] [address] Giorgio Fernandez DO [address] [place] [address] Follow up [facility] Comment on above: Follow up Start: 05-18-2024 End: 05-18-2024 Patient encounter procedure 05/18/2024 1:30 PM EDT Office Visit Neurology [address] [place] [address] Adriana Alexandra APRN.DRY STARCH OPERATOR [address] [place] [address] *scheduled at different location than preferred on order, due to time frame* Neurology Comment on above: *scheduled at different location than pr eferred on order, due to time frame* Start: 05-17-2024 Influenza vaccination Influenza Vaccine (#1) [facility] Comment on above: Postponed from 07/19/2023 (Declined at t his time) Start: 2024 RSV Immunization for Adults (1 - 1-dose 75+ series) RSV Immunization for Adults (1 - 1-dose 75+ series) [facility] Start: 2024 RSV Vaccine (1 - 1-dose 75+ series) RSV Vaccine (1 - 1-dose 75+ series) [facility] Start: 03-13-2024 ANNUAL PCP TEAM CHRONIC DISEASE VISIT ANNUAL PCP TEAM CHRONIC DISEASE VISIT [facility] Start: 02-25-2024 SERUM CREATININE SERUM CREATININE [facility] Start: 02-24-2024 Hepatitis B surface antibody level LDL CHOLESTEROL [facility] Start: 02-23-2024 HEMOGLOBIN/HEMATOCRIT HEMOGLOBIN/HEMATOCRIT [facility] Start: 02-23-2024 SERUM CREATININE SERUM CREATININE [facility] Start: 02-05-2024 ANNUAL PCP TEAM CHRONIC DISEASE VISIT ANNUAL PCP TEAM CHRONIC DISEASE VISIT [facility] Start: 02-05-2024 BP CONTROLLED (<130/80) BP CONTROLLED (<130/80) [facility] Start: 02-01-2024 BP CONTROLLED (<130/80) BP CONTROLLED (<130/80) [facility] Start: 01-27-2024 SERUM CREATININE SERUM CREATININE [facility] Start: 01-20-2024 SERUM CREATININE SERUM CREATININE [facility] Start: 12-26-2023 ANNUAL PCP TEAM CHRONIC DISEASE VISIT ANNUAL PCP TEAM CHRONIC DISEASE VISIT [facility] Start: 12-26-2023 HEMOGLOBIN/HEMATOCRIT HEMOGLOBIN/HEMATOCRIT [facility] Start: 12-26-2023 Hepatitis B surface antibody level LDL CHOLESTEROL [facility] Start: 12-26-2023 SERUM CREATININE SERUM CREATININE [facility] Start: 12-06-2023 ANNUAL PCP TEAM CHRONIC DISEASE VISIT ANNUAL PCP TEAM CHRONIC DISEASE VISIT [facility] Start: 11-28-2023 ANNUAL PCP TEAM CHRONIC DISEASE VISIT ANNUAL PCP TEAM CHRONIC DISEASE VISIT [facility] Start: 11-18-2023 Advance Directive Discussion Advance Directive Discussion [facility] Start: 11-18-2023 Behavioral Health Screening Behavioral Health Screening [facility] Start: 11-18-2023 Medicare Advantage Annual Wellness Visit Medicare Advantage Annual Wellness [facility] Start: 10-05-2023 Hepatitis B surface antibody level LDL CHOLESTEROL [facility] Start: 10-04-2023 SERUM CREATININE SERUM CREATININE [facility] Start: 10-02-2023 ANNUAL PCP TEAM CHRONIC DISEASE VISIT ANNUAL PCP TEAM CHRONIC DISEASE VISIT [facility] Start: 09-14-2023 ANNUAL PCP TEAM CHRONIC DISEASE VISIT ANNUAL PCP TEAM CHRONIC DISEASE VISIT [facility] Start: 09-14-2023 BP CONTROLLED (<130/80) BP CONTROLLED (<130/80) [facility] Start: 08-08-2023 End: 10-08-2023 25-hydroxyvitamin D3 [Mass/volume] in Serum or Plasma VITAMIN D 25 HYDROXY Lab Routine HTN (hypertension), benign Weight loss Anxiety with depression Expected: 08/08/2023, Expires: 10/08/2023 [facility] Work Phone: Comment on above: Expected: 08/08/2023, Expires: 3 Start: 08-08-2023 End: 10-08-2023 CBC W Auto Differential panel - Blood CBC + DIFF Lab Routine HTN (hypertension), benign Weight loss Anxiety with depression Expected: 08/08/2023, Expires: 10/08/2023 [facility] Work Phone: Comment on above: Expected: 08/08/2023, Expires: 3 Start: 08-08-2023 End: 10-08-2023 Cobalamin (Vitamin B12) [Mass/volume] in Serum or Plasma VITAMIN B12 BLOOD Lab Routine HTN (hypertension), benign Weight loss Anxiety with depression Expected: 08/08/2023, Expires: 10/08/2023 [facility] Work Phone: Comment on above: Expected: 08/08/2023, Expires: 3 Start: 08-08-2023 End: 10-08-2023 Comprehensive metabolic 2000 panel - Serum or Plasma COMP METABOLIC PANEL Lab Routine HTN (hypertension), benign Weight loss Anxiety with depression Expected: 08/08/2023, Expires: 10/08/2023 [facility] Work Phone: Comment on above: Expected: 08/08/2023, Expires: 3 Start: 08-08-2023 End: 10-08-2023 Iron and Iron binding capacity panel - Serum or Plasma IRON + TIBC Lab Routine HTN (hypertension), benign Weight loss Anxiety with depression Expected: 08/08/2023, Expires: 10/08/2023 [facility] Work Phone: Comment on above: Expected: 08/08/2023, Expires: Start: 08-08-2023 End: 10-08-2023 Magnesium [Mass/volume] in Serum or Plasma MAGNESIUM BLD Lab Routine HTN (hypertension), benign Weight loss Anxiety with depression Expected: 08/08/2023, Expires: 10/08/2023 [facility] Work Phone: Comment on above: Expected: 08/08/2023, Expires: 3 Start: 08-08-2023 End: 10-08-2023 Thyrotropin [Units/volume] in Serum or Plasma TSH BLD Lab Routine HTN (hypertension), benign Weight loss Anxiety with depression Expected: 08/08/2023, Expires: 10/08/2023 [facility] Work Phone: Comment on above: Expected: 08/08/2023, Expires: 3 Start: 08-08-2023 End: 10-08-2023 Thyroxine (T4) free [Mass/volume] in Serum or Plasma T4 FREE/FREE THYROX Lab Routine HTN (hypertension), benign Weight loss Anxiety with depression Expected: 08/08/2023, Expires: 10/08/2023 [facility] Work Phone: Comment on above: Expected: 08/08/2023, Expires: 3 Start: 07-19-2023 Covid-19 Vaccine () Covid-19 Vaccine () [facility] Start: 07-19-[address] [facility] Start: 06-17-2023 End: 08-17-2023 CBC panel - Blood by Automated count CBC Lab Routine Stage 3a chronic kidney disease (HCC) High cholesterol Expected: 06/17/2023, Expires: 08/17/2023 [facility] Work Phone: Comment on above: Expected: 06/17/2023, Expires: Start: 06-17-2023 End: 08-17-2023 Comprehensive metabolic 2000 panel - Serum or Plasma COMP METABOLIC PANEL Lab Routine Stage 3a chronic kidney disease (HCC) High cholesterol Expected: 06/17/2023, Expires: 08/17/2023 [facility] Work Phone: Comment on above: Expected: 06/17/2023, Expires: Start: 06-17-2023 End: 08-17-2023 Lipid 1996 panel - Serum or Plasma LIPID PANEL BASIC Lab Routine Stage 3a chronic kidney disease (HCC) High cholesterol Expected: 06/17/2023, Expires: 08/17/2023 [facility] Work Phone: Comment on above: Expected: 06/17/2023, Expires: 3 Start: 05-07-2023 End: 07-07-2023 CBC W Auto Differential panel - Blood CBC + DIFF Lab Routine Primary hypertension Expected: 05/07/2023, Expires: 07/07/2023 [facility] Work Phone: Comment on above: Expected: 05/07/2023, Expires: 3 Start: 05-07-2023 End: 07-07-2023 Comprehensive metabolic 2000 panel - Serum or Plasma COMP METABOLIC PANEL Lab Routine Primary hypertension Expected: 05/07/2023, Expires: 07/07/2023 [facility] Work Phone: Comment on above: Expected: 05/07/2023, Expires: 3 Start: 05-07-2023 End: 07-07-2023 Lipid 1996 panel - Serum or Plasma LIPID PANEL BASIC Lab Routine Pure hypercholesterolemia Expected: 05/07/2023, Expires: 07/07/2023 [facility] Work Phone: Comment on above: Expected: 05/07/2023, Expires: 3 Start: 04-06-2023 Depression Screen Depression Screen [facility] Start: 02-04-2023 End: 04-06-2023 CBC W Auto Differential panel - Blood CBC + DIFF Lab Routine Carotid stenosis, right Left-sided weakness TIA (transient ischemic attack) Primary hypertension Expected: 02/04/2023, Expires: 04/06/2023 [facility] Work Phone: Comment on above: Expected: 02/04/2023, Expires: 3 Start: 02-04-2023 End: 02-05-2024 Comprehensive metabolic 2000 panel - Serum or Plasma COMP METABOLIC PANEL Lab Routine Primary hypertension Hypocalcemia Expected: 02/04/2023, Expires: 02/05/2024 [facility] Work Phone: Comment on above: Expected: 02/04/2023, Expires: 4 Start: 11-18-2022 ADVANCE DIRECTIVE DISCUSSION ADVANCE DIRECTIVE DISCUSSION [facility] Start: 10-30-2022 ANNUAL PCP TEAM CHRONIC DISEASE VISIT ANNUAL PCP TEAM CHRONIC DISEASE VISIT [facility] Start: 10-30-2022 BP CONTROLLED (<130/80) BP CONTROLLED (<130/80) [facility] Start: 10-02-2022 End: 12-02-2022 Hepatic function 2000 panel - Serum or Plasma HEPATIC FUNCTION PNL Lab Routine Recurrent major depressive disorder, in full remission (HCC) Expected: 10/02/2022, Expires: 12/02/2022 [facility] Work Phone: Comment on above: Expected: 10/02/2022, Expires: 3 Start: 09-18-2022 End: 11-18-2022 CBC panel - Blood by Automated count CBC Lab Routine CKD (chronic kidney disease) stage 2, GFR 60-89 ml/min Expected: 09/18/2022, Expires: 11/18/2022 [facility] Work Phone: Comment on above: Expected: 09/18/2022, Expires: 3 Start: 09-18-2022 End: 11-18-2022 Hemoglobin A1c in Blood HGB A1C Lab Routine Medication management Expected: 09/18/2022, Expires: 11/18/2022 [facility] Work Phone: Comment on above: Expected: 09/18/2022, Expires: 3 Start: 09-18-2022 End: 11-18-2022 Lipid 1996 panel - Serum or Plasma LIPID PANEL BASIC Lab Routine Hyperlipidemia Expected: 09/18/2022, Expires: 11/18/2022 [facility] Work Phone: Comment on above: Expected: 09/18/2022, Expires: 3 Start: 09-18-2022 End: 11-18-2022 Renal function 2000 panel - Serum or Plasma RENAL FUNCTION PANEL Lab Routine CKD (chronic kidney disease) stage 2, GFR 60-89 ml/min Expected: 09/18/2022, Expires: 11/18/2022 [facility] Work Phone: Comment on above: Expected: 09/18/2022, Expires: 3 Start: 09-18-2022 End: 11-18-2022 SCHEDULE LAB TESTING SCHEDULE LAB TESTING Lab Routine Expected: 09/18/2022, Expires: 11/18/2022 [facility] Work Phone: Comment on above: Expected: 09/18/2022, Expires: 3 Start: 09-06-2022 End: 09-06-2022 Patient encounter procedure [facility] [place] Start: 08-21-2022 End: 08-21-2022 Patient encounter procedure 08/21/2022 Appointment Neurology [facility] Start: 07-19-2022 Influenza vaccination [facility] Start: 06-21-2022 SERUM CREATININE SERUM CREATININE [facility] Start: 06-01-2022 End: 06-01-2022 Patient encounter procedure 06/01/2022 Office Visit Neurosurgery Alem Hopkins MD [address] [place] [address] [facility] Start: 05-23-2022 End: 05-23-2022 Patient encounter procedure 05/23/2022 Office Visit Alem Quick MD [address] [place], [place] [address] [facility] Start: 05-22-2022 End: 05-22-2022 Patient encounter procedure 05/22/2022 Office Visit Geriatric Medicine Giovanni Reyes GAS STATION CLERK - DRY STARCH OPERATOR [address] [address] [facility] Start: 05-15-2022 End: 05-15-2022 Patient encounter procedure [facility] Start: 05-15-2022 Subsequent hospital visit by physician 05/15/2022 Hospital Encounter MRI Alem Hopkins MD [address] [place] [address] [facility] Start: 05-04-2022 End: 05-04-2022 Patient encounter procedure 05/04/2022 Office Visit Geriatric Medicine Giovanni Reyes GAS STATION CLERK - DRY STARCH OPERATOR [address] [place] [address] [facility] Start: 04-24-2022 End: 04-24-2022 Patient encounter procedure 04/24/2022 Office Visit Geriatric Medicine Geri Dale MD [address] [address] [facility] Start: 04-06-2022 End: 04-06-2022 Patient encounter procedure 04/06/2022 Office Visit Geriatric Medicine Giovanni Reyes, GAS STATION CLERK - DRY STARCH OPERATOR [address] [facility] [address] [place] [address] [facility] Start: 04-05-2022 End: 04-05-2022 Patient encounter procedure [facility] Start: 04-05-2022 Subsequent hospital visit by physician 04/05/2022 [place] [address] [place] [id number] Other symptoms and signs involving cognitive functions and awareness; Unspecified abnormalities of gait and mobility [facility] Comment on above: Other symptoms and signs involving cogni tive functions and awareness; Unspecified abnormalities of gait and mobility Start: 03-27-2022 End: 03-27-2022 Patient encounter procedure 03/27/2022 Office Visit Geriatric Medicine Geri Dale MD [address] [address] [facility] Start: 02-20-2022 Annual Wellness Visit (AWV) Annual Wellness Visit (AWV) [facility] Start: 02-20-2022 End: 02-20-2022 Patient encounter procedure 02/20/2022 Office Visit Neurosurgery Alem Hopkins MD [facility] [place], [place] [id number] [facility] [place] Start: 12-29-2021 Hepatitis B surface antibody level LDL CHOLESTEROL [facility] Start: 11-18-2021 ADVANCE DIRECTIVE DISCUSSION ADVANCE DIRECTIVE DISCUSSION [facility] Start: 10-31-2021 Annual Wellness Visit (AWV) Annual Wellness Visit (AWV) [facility] Start: 07-27-2021 HEMOGLOBIN/HEMATOCRIT HEMOGLOBIN/HEMATOCRIT [facility] Start: 07-19-2021 Influenza vaccination Flu vaccine (#1) [facility] Start: 05-25-2021 DTaP/Tdap/Td Vaccines (2 - Td or Tdap) DTaP/Tdap/Td Vaccines (2 - Td or Tdap) [facility] Start: 09-25-2020 BP CONTROLLED (<130/80) BP CONTROLLED (<130/80) [facility] Start: 12-09-2016 Pneumococcal 65+ years Vaccine (2 - PPSV23 or PCV20) Pneumococcal 65+ years Vaccine (2 - PPSV23 or PCV20) [facility] Start: 12-09-2016 Pneumococcal 65+ years Vaccine (2 of 2 - PPSV23) Pneumococcal 65+ years Vaccine (2 of 2 - PPSV23) [facility] Start: 12-09-2016 Pneumococcal Vaccine: 50+ Years (2 of 2 - PPSV23) Pneumococcal Vaccine: 50+ Years (2 of 2 - PPSV23) [facility] Start: 12-09-2016 Pneumococcal Vaccine: 65+ (2 - PPSV23 or PCV20) Pneumococcal Vaccine: 65+ (2 - PPSV23 or PCV20) [facility] Start: 12-09-2016 Pneumococcal Vaccine: 65+ (2 of 2 - PPSV23 or PCV20) Pneumococcal Vaccine: 65+ (2 of 2 - PPSV23 or PCV20) [facility] Start: 12-09-2016 Pneumococcal Vaccine: 65+ Years (2 - PPSV23 if available, else PCV20) Pneumococcal Vaccine: 65+ Years (2 - PPSV23 if available, else PCV20) [facility] Start: 12-09-2016 Pneumococcal Vaccine: 65+ Years (2 of 2 - PPSV23 or PCV20) Pneumococcal Vaccine: 65+ Years (2 of 2 - PPSV23 or PCV20) [facility] Start: 12-09-2016 PNEUMOCOCCAL: 65+ (2 - PPSV23 if available, else PCV20) PNEUMOCOCCAL: 65+ (2 - PPSV23 if available, else PCV20) [facility] Start: 12-09-2016 PNEUMOCOCCAL: 65+ (2 - PPSV23 or PCV20) PNEUMOCOCCAL: 65+ (2 - PPSV23 or PCV20) [facility] Start: 02-03-2016 PNEUMOCOCCAL: 65+ (2 - PPSV23 if available, else PCV20) PNEUMOCOCCAL: 65+ (2 - PPSV23 if available, else PCV20) [facility] Start: 2014 Pneumococcal Vaccine: 65+ (1 of 1 - PCV) Pneumococcal Vaccine: 65+ (1 of 1 - PCV) [facility] Start: 2009 RSV Immunization aged 60 or older (1 - 1-dose 60+ series) RSV Immunization aged 60 or older (1 - 1-dose 60+ series) [facility] Start: 2009 RSV Vaccine (1 - 1-dose 60+ series) RSV Vaccine (1 - 1-dose 60+ series) [facility] Start: 1999 Shingles Vaccine (1 of 2) Shingles Vaccine (1 of 2) [facility] Start: 1999 SHINGRIX VACCINE (1 of 2) SHINGRIX VACCINE (1 of 2) [facility] Start: 1999 Zoster Vaccines (1 of 2) Zoster Vaccines (1 of 2) [facility] Start: 1994 COLOGUARD (FIT-DNA) COLOGUARD (FIT-DNA) [facility] Start: [address] COLONOGRAPHY [facility] Start: 1994 FECAL OCCULT BLOOD FECAL OCCULT BLOOD [facility] Start: 1994 Screening for malignant neoplasm of colon [facility] Start: [address] [facility] Start: 1989 Lipid panel Lipid screen [facility] Start: 1968 Urine microalbumin profile DTaP,Tdap,Td Vaccine (1 - Tdap) [facility] Start: 1967 Annual PCP Team Chronic Disease Visit Annual PCP Team Chronic Disease Visit [facility] Start: 1967 BP Controlled (<130/80) BP Controlled (<130/80) [facility] Start: 1967 Creatinine measurement Creatinine [facility] Start: 1967 Diabetes mellitus screening Diabetes Screening [facility] Start: 1967 Hepatitis C screening [facility] Start: 1967 Potassium [Moles/volume] in Serum or Plasma Potassium [facility] Start: 1961 COVID-19 Vaccine (1) COVID-19 Vaccine (1) [facility] Start: 1961 Depression Monitoring Depression Monitoring [facility] Start: 1961 Depression Screen Depression Screen [facility] Start: 1961 Depression Screening Depression Screening [facility] Start: 1959 Lipid panel [facility] Start: 1954 COVID-19 VACCINE (#1) COVID-19 VACCINE (#1) [facility] Start: 1954 COVID-19 Vaccine (1) COVID-19 Vaccine (1) [facility] Start: 1949 COVID-19 Vaccine (#1) COVID-19 Vaccine (#1) [facility] Start: 1949 ABDOMINAL AORTIC ANEURYSM SCREENING ABDOMINAL AORTIC ANEURYSM SCREENING [facility] Start: 1949 Abdominal aortic aneurysm screening Abdominal Aortic Aneurysm Screening [facility] Start: 1949 Creatinine measurement Creatinine monitoring [facility] Start: 1949 Hepatitis B Vaccines (1 of 3 - 3-dose series) Hepatitis B Vaccines (1 of 3 - 3-dose series) [facility] Start: 1949 Hepatitis C screening Hepatitis C screen [facility] Start: 1949 Lipid panel Lipid Panel [facility] Start: 1949 Potassium monitoring Potassium monitoring [facility] Start: 1949 Screening for malignant neoplasm of colon [facility] End: 05-14-2024 CBC panel - Blood by Automated count COMPLETE BLOOD COUNT Lab Routine ONCE for 1 Occurrences starting 05/14/2024 until 05/14/2024 [facility] Work Phone: Comment on above: ONCE for 1 Occurrences starting 05/14/20 24 until 05/14/2024 End: 07-15-2025 RF videography Hypopharynx and Esophagus Views W liquid and paste contrast PO during swallowing XR MODIFIED BARIUM SWALLOW W SPEECH THERAPY Radiology Routine Left-sided weakness Cerebellar stroke (HCC) Dysarthria 1 Occurrences starting 06/15/2024 until 07/15/2025 [facility] Work Phone: Comment on above: 1 Occurrences starting 06/15/2024 until 07/15/2025 End: 05-27-2025 US Carotid arteries - bilateral US CAROTID BILATERAL Radiology Routine Acute ischemic right MCA stroke (HCC) 1 Occurrences starting 04/27/2024 until 05/27/2025 [facility] Work Phone: Comment on above: 1 Occurrences starting 04/27/2024 until 05/27/2025 End: 05-03-2022 XR EYE FOREIGN BODY BILAT [facility] Work Phone: Comment on above: 1 Occurrences starting 05/03/2022 until 05/03/2022 End: 01-25-2024 XR FOOT GENERAL 3V AP/LAT/OBL LEFT XR FOOT GENERAL 3V AP/LAT/OBL LEFT Radiology Routine Foot pain, left 1 Occurrences starting 12/26/2022 until 01/25/2024 [facility] Work Phone: Comment on above: 1 Occurrences starting 12/26/2022 until 01/25/2024 End: 12-26-2022 XR FOOT GENERAL 3V AP/LAT/OBL LEFT [facility] [facility] Work Phone: Comment on above: 1 Occurrences starting 12/26/2022 until 12/26/2022 [facility] Immunizations Immunization Date Immunization Notes Care Provider [facility] 10-06-2023 tetanus toxoid, redu remy diphtheria toxoid, and acellular pertussis vaccine, adsorbed Gary Matute APRN.CNP Work Phone: [facility] 10-02-2022 influenza, high-dose , quadrivalent vaccine (FLUZONE HIGH DOSE QUADRIVALENT) Giorgio Fernandez DO Work Phone: [facility] 10-02-2022 influenza virus vacc ine, unspecified formulation Giorgio Fernandez DO Work Phone: [facility] 04-27-2021 tetanus toxoid, redu remy diphtheria toxoid, and acellular pertussis vaccine, adsorbed Dianna Traylor PhD Work Phone: [facility] 08-25-2019 influenza, high dose seasonal, preservative-free Dianna Traylor PhD Work Phone: [facility] 12-09-2015 pneumococcal conjuga te vaccine, 13 valent Dianna Traylor PhD Work Phone: [facility] Payers Date Payer Category Payer Medicare HMO [id number] 2024 Medicare [id number] 2024 Self-pay 2024 Medicare [id number] 2021 Unknown [id number] 2019 Private Health Insurance [facility] [id number] 2019 Private Health Insurance [employer] A ETNA MEDICARE SUPPLEMENT [id number] 2019-Present [phone] [address] [address] [place] [address] Indemnity [id number] 2019 Private Health Insurance 2015 Medicare MEDICARE MEDICAR E PART A AND B [id number] 2015-Present [phone] [place] [address] [id number] 2015 Medicare [id number] .[id number] 2011 Medicare MEDICARE MEDICAR E A AND B [id number] 2011-Present [phone] [place] [address] Medicare [id number] 2011 Medicare 1959 Private Health Insurance [id number] 1950 Unknown [id number] 2.16.840.1.149456.3.579.2 .1950 Unknown [id number] 2.16.840.1.555678.3.579.2 .1949 Unknown [id number] 2.16.840.1.439647.3.579.2 .1949 Unknown [id number] 2.16.840.1.743259.3.579.2 .1949 Unknown [id number] 2.16.840.1.386774.3.579.2 .1949 Unknown [id number] 2.16840.1.668470.3.579.2 1949 Unknown [id number] 2.16.840.1.919659.3.579.2 1949 Unknown [id number] 2.840.1.018352.3.579.2 1949 Unknown [id number] 2.16840.1.606820.3.579.2 1949 Unknown [id number] 2.840.1.446348.3.579.2 1949 Unknown [id number] 2.16840.1.443296.3.579.2 1949 Unknown [id number] 2.16840.1.318635.3.579.2 1949 Unknown [id number] 2.16840.1.438211.3.579.2 1949 Unknown [id number] 2.16840.1.619634.3.579.2 1949 Unknown [id number] 2.16840.1.809912.3.579.2 .598 Unknown [facility] [id number] Unknown [id number] 2.16.840.1.036104.3.579.2 .462 Unknown [id number] 2.16.840.1.910526.3.579.2 .462 Unknown [id number] 2.16.840.1.970383.3.579.2 .462 Unknown [id number] 2.16.840.1.485779.3.579.2 .462 Unknown [id number] 2.16.840.1.887338.3.579.2 .462 Unknown [id number] 2.16.840.1.159196.3.579.2 .462 Unknown [id number] 2.16.840.1.394648.3.579.2 .462 Unknown [id number] 2.16.840.1.924005.3.579.2 .462 Unknown [id number] 2.16.840.1.743760.3.579.2 .462 Unknown [id number] 2.16.840.1.647562.3.579.2 .462 Unknown [id number] 2.16.840.1.688392.3.579.2 .462 Worker's Compensation Social History Date Type Detail Facility Start: 10-31-2021 End: 06-01-2022 Tobacco smoking status WYIS Never smoked tobacco [facility] Phone: Start: 10-31-2021 End: 01-31-2023 Tobacco use and exposure Smokeless tobacco non-user [facility] Phone: Start: 1950 Sex Assigned At Not on file [facility] Work Phone: Start: 02-15-2022 End: 10-04-2022 Exposure to SARS-CoV-2 (event) Not sure [facility] Phone: Start: 11-22-2021 End: 01-18-2025 Alcohol intake Ex-drinker (finding) [facility] Work Phone: Start: 11-22-2021 History SDOH Alcohol Comment occ. [facility] Work Phone: Start: 05-03-2021 End: 09-14-2022 Tobacco smoking status NHIS Occasional tobacco smoker [facility] End: 11-18-2022 History of tobacco use Cigar Smoker [facility] Start: 05-10-2021 End: 04-30-2024 Alcohol intake Current non-drinker of alcohol (finding) [facility] Start: 07-27-2020 End: 01-20-2023 History SDOH Financial [address] [facility] Start: 07-27-2020 End: 01-20-2023 History SDOH Food Worry [address] [facility] Start: 07-27-2020 End: 01-20-2023 History SDOH Transport Med [address] [facility] Start: 06-01-2022 End: 04-13-2024 Alcohol intake Current drinker of alcohol (finding) [facility] Work Phone: Start: 01-31-2023 [facility] End: 11-18-2022 History of tobacco use Current smoker [facility] Start: 06-01-2022 End: 01-18-2025 History of Social function [facility] Work Phone: Start: 06-01-2022 End: 01-18-2025 Tobacco use panel [facility] Work Phone: How hard is it for y ou to pay for the very basics like food, housing, medical care, and heating Not hard at all [facility] Work Phone: (I/We) worried mayur er (my/our) food would run out before (I/we) got money to buy more. Never true [facility] Work Phone: In the past 12 month s, was there a time when you were not able to pay the mortgage or rent on time? No [facility] Work Phone: Start: 01-31-2023 [facility] smoking consumption unknown [facility] How often to you hav e a drink containing alcohol? Never [facility] Start: 06-18-2022 End: 02-19-2025 Sex Male (finding) [facility] Start: 1950 Sex Assigned At Male [facility] Medical Equipment Procedure Code Equipment Code Equipment Origin al Text Equipment Identifier Dates Patch Xenosure B ovine Pericardial Tissue 8x.8cm Vascular Sterile - [id number] Start: 01-25-2023 Device Angio-Sea l Vip 6fr .035in Collagen 70cm Closure Valuelink Guidewire - [id number] Start: 04-16-2024 Stent Xact 8-6mm Taper Nickel Titanium 40mm Vascular Self Expandable - [id number] Start: 04-16-2024 Clinical Notes 07-26-2020 to 01-18-2025 Twin Wolfe MD - 01/18/2025 2:26 PM Mayelin Valverde RN - 01/18/2025 2:26 PM Mayelin Valverde RN - 01/18/2025 2:26 PM Eulalia Wolfe MD - 01/18/2025 2:26 PM ESTDischarge Instructions Note Date & Type Note Facility 01-18-2025 Emergency department Note EMERGENCY DEPARTMENT ENCOUNTER Pt Name: Jonathon Perales Birthdate 1950 Date of evaluation: 01/18/2025 ED Provider: Twin Wolfe MD CHIEF COMPLAINT Chief Complaint Patient presents with Fall Patient fell today according to staff at [facility], out of his bed, hematoma to the left side of the head, alert and oriented to name, birthday and place. Hx of left side weakness due to stroke, patient is on blood thinner. HISTORY OF PRESENT ILLNESS (Location/Symptom, Timing/Onset, Context/Setting, Quality, Duration, Modifying Factors, Severity) Note limiting factors. I wore appropriate PPE for the entirety of this encounter. HPI Jonathon Perales is a 74 y.o. who presents to the emergency department with chief complaint of fall out of bed onto the floor at his group home facility. Patient states he did not lose consciousness. He is on aspirin and Plavix. States he is having some pain in the left occipital scalp but denies any other pain. Denies any injuries to the upper or lower extremities. Denies any back pain or abdominal pain. Patient has past medical history of previous stroke with left-sided deficits, Parkinson's disease with dementia. He states he was trying to walk but must of tripped. Nursing Notes were reviewed. Limitations to history: Dementia Outside historians: None REVIEW OF SYSTEMS Review of Systems All other systems reviewed and are negative. Pertinent positives and negatives as per HPI. PAST MEDICAL HISTORY Past Medical History: Diagnosis Date Anxiety Moses esophagus Depression Head injury Hemiplegia affecting left dominant side (HCC) High blood pressure High cholesterol Calvin's syndrome Hypertension Parkinson's disease (HCC) Stroke (HCC) SURGICAL HISTORY Past Surgical History: Procedure Laterality Date CARDIAC VALVE SURGERY [facility] Epic Supra Stented valve model # [id number] 12/03/2008 CURRENT MEDICATIONS Previous Medications ACETAMINOPHEN (TYLENOL) 325 MG TABLET Take 650 mg by mouth every 4 hours as needed for mild pain (1-3). ASPIRIN 81 MG CHEWABLE TABLET Chew 81 mg in the morning. ATORVASTATIN (LIPITOR) 80 MG TABLET Take 80 mg by mouth Nightly. CARBIDOPA-LEVODOPA (SINEMET) 25-100 MG TABLET TAKE 1 TABLET BY MOUTH IN THE MORNING, 1 TABLET AT NOON AND 1 TABLET BEFORE BEDTIME CHOLECALCIFEROL (VITAMIN D-3) 25 MCG (1000 UT) TABLET Take 2,000 Units by mouth in the morning. CLOPIDOGREL (PLAVIX) 75 MG TABLET Take 75 mg by mouth in the morning. DIVALPROEX (DEPAKOTE ER) 250 MG 24 HR TABLET Take 250 mg by mouth 2 times daily. Do not crush, chew, or split. EZETIMIBE (ZETIA) 10 MG TABLET Take 10 mg by mouth in the morning. GABAPENTIN (NEURONTIN) 100 MG CAPSULE Take 100 mg by mouth in the morning and 100 mg in the evening. HEPARIN 5000 UNITS/ML INJECTION Inject 5,000 Units under the skin in the morning and 5,000 Units at noon and 5,000 Units in the evening. HYDROXYZINE PAMOATE (VISTARIL) 25 MG CAPSULE Take 25 mg by mouth 2 times daily. LIDOCAINE 4 % PATCH Place 1 patch on the skin in the morning. LORATADINE (CLARITIN) 10 MG TABLET Take by mouth. MECLIZINE (ANTIVERT) 25 MG TABLET 25 mg 3 times daily as needed for dizziness. MELATONIN 3 MG TABLET Take 3 mg by mouth Nightly as needed. METOPROLOL SUCCINATE XL (TOPROL-XL) 25 MG 24 HR TABLET Take 25 mg by mouth daily. Do not crush or chew. MIRTAZAPINE (REMERON) 7.5 MG TABLET Take 7.5 mg by mouth daily at bedtime. PANTOPRAZOLE (PROTONIX) 40 MG EC TABLET Take 40 mg by mouth in the morning. SENNA-DOCUSATE (MLAU-COLACE) 8.6-50 MG TABLET Take 1 tablet by mouth in the morning and 1 tablet in the evening. TRAZODONE (DESYREL) 50 MG TABLET Take 25 mg by mouth 2 times daily. VENLAFAXINE (EFFEXOR) 75 MG TABLET Take 262.5 mg by mouth daily. ALLERGIES Oxycodone-acetaminophen FAMILY HISTORY No family history on file. SOCIAL HISTORY Social History Socioeconomic History Marital status: Tobacco Use Smoking status: Never Smokeless tobacco: Never Vaping Use Vaping status: Never Used Substance and Sexual Activity Alcohol use: Not Currently Drug use: Never Social Drivers of Health Financial Resource Strain: Low Risk (04/30/2024) Received from [facility] Overall Financial Resource Strain (CARDIA) Difficulty of Paying Living Expenses: Not hard at all Food Insecurity: No Food Insecurity (05/19/2024) Received from [facility] Hunger Vital Sign Worried About Running Out of Food in the Last Year: Never true Ran Out of Food in the Last Year: Never true Transportation Needs: No Transportation Needs (05/19/2024) Received from [facility] PRAPARE - Transportation Lack of Transportation (Medical): No Lack of Transportation (Non-Medical): No Stress: No Stress Concern Present (05/15/2024) Received from [facility] - Occupational Stress Questionnaire Feeling of Stress : Not at all Social Connections: Unknown (04/30/2024) Received from [facility] Social Connection and Isolation Panel [NHANES] Frequency of Communication with Friends and Family: More than three times a week Frequency of Social Gatherings with Friends and Family: More than three times a week Attends Moravian Services: Patient declined Active Member of Clubs or Organizations: Patient declined Attends Club or Organization Meetings: Patient declined Marital Status: Intimate Partner Violence: Not At Risk (04/30/2024) Received from [facility] Domestic Abuse Assessment Do you feel safe in your relationships at home?: Yes Physical Abuse: Denies Verbal Abuse: Denies Housing Stability: Low Risk (05/12/2024) Received from [facility] Housing Stability Vital Sign Unable to Pay for Housing in the Last Year: No Number of Times Moved in the Last Year: 1 Homeless in the Last Year: No SCREENINGS [place] Coma Scale Best Eye Response: Spontaneous Best Verbal Response: Confused Best Motor Response: Follows commands [place] Coma Scale Score: 14 PHYSICAL EXAM ED Triage Vitals [01/18/25 1436] Temp Heart Rate Resp BP 36.6 C (97.8 F) 57 16 136/75 SpO2 Temp Source Heart Rate Source Patient Position 100 % Oral -- Lying BP Location FiO2 (%) Left arm -- Physical Exam Vitals and nursing note reviewed. Constitutional: General: He is not in acute distress. Appearance: He is not ill-appearing. HENT: Head: Normocephalic and atraumatic. Right Ear: Tympanic membrane normal. Left Ear: Tympanic membrane normal. Nose: Nose normal. No rhinorrhea. Eyes: General: No scleral icterus. Extraocular Movements: Extraocular movements intact. Pupils: Pupils are equal, round, and reactive to light. Cardiovascular: Rate and Rhythm: Normal rate and regular rhythm. Pulses: Normal pulses. Heart sounds: Normal heart sounds. Pulmonary: Effort: Pulmonary effort is normal. No respiratory distress. Breath sounds: Normal breath sounds. Abdominal: General: There is no distension. Palpations: Abdomen is soft. Tenderness: There is no abdominal tenderness. There is no guarding. Musculoskeletal: General: No swelling, tenderness or deformity. Normal range of motion. Cervical back: Normal range of motion and neck supple. No tenderness. Right lower leg: No edema. Left lower leg: No edema. Skin: General: Skin is warm and dry. Neurological: Mental Status: He is alert. Mental status is at baseline. GCS: GCS eye subscore is 4. GCS verbal subscore is 4. GCS motor subscore is 6. Cranial Nerves: Facial asymmetry present. Comments: Left-sided facial droop and left-sided upper and lower extremity weakness from previous stroke. Psychiatric: Behavior: Behavior normal. DIAGNOSTIC RESULTS Procedures/EKG: EKG was reviewed by myself. Physician EKG interpretation can be found in [facility] RADIOLOGY (Per Emergency Physician): Interpretation per the Radiologist below, if available at the time of this note: CT cervical spine wo IV contrast Final Result No cervical spine fracture. Report Dictated on Electronically Signed By: Willie Cordon MD Electronically Signed Date/Time: 01/18/2025 5:[address] head wo IV contrast Final Result Remote bilateral infarcts with background cerebral atrophy and chronic small vessel ischemia as above. No acute intracranial hemorrhage or mass effect. Report Dictated on Electronically Signed By: Willie Cordon MD Electronically Signed Date/Time: 01/18/2025 5:01 PM EST ED BEDSIDE ULTRASOUND: Performed by ED Physician - none LABS: Labs Reviewed - No data to display All other labs were within normal range or not returned as of this dictation. EMERGENCY DEPARTMENT COURSE and DIFFERENTIAL DIAGNOSIS/MDM: Vitals: Vitals: 01/18/25 1436 01/18/25 1544 BP: 136/75 105/68 BP Location: Left arm Left arm Patient Position: Lying Lying Pulse: 57 59 Resp: 16 22 Temp: 36.6 C (97.8 F) TempSrc: Oral SpO2: 100% 98% Weight: 68.7 kg (151 lb 8 oz) Height: 1.651 m (5' 5") Patient presents the emergency department after a fall out of his bed at his group home facility. Patient with a history of previous stroke with left-sided deficits, Parkinson's disease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 HISTORY Past Medical History: Diagnosis Date Depression Head injury High blood pressure High cholesterol Hypertension Stroke (HCC) SURGICAL HISTORY Past Surgical History: Procedure Laterality Date CARDIAC VALVE SURGERY [facility] Epic Supra Stented valve model # [id number] 12/03/2008 CURRENT MEDICATIONS Current Discharge Medication List CONTINUE these medications which have NOT CHANGED Details aspirin 81 MG chewable tablet Chew 81 mg in the morning. carbidopa-levodopa (Sinemet) 25-100 MG tablet TAKE 1 TABLET BY MOUTH IN THE MORNING, 1 TABLET AT NOON AND 1 TABLET BEFORE BEDTIME Qty: 90 tablet, Refills: 0 cholecalciferol (Vitamin D-3) 25 MCG (1000 UT) tablet Take 2,000 Units by mouth in the morning. clopidogrel (Plavix) 75 MG tablet Take 75 mg by mouth in the morning. ezetimibe (Zetia) 10 MG tablet Take 10 mg by mouth in the morning. gabapentin (Neurontin) 100 MG capsule Take 100 mg by mouth in the morning and 100 mg in the evening. heparin 5000 units/mL injection Inject 5,000 Units under the skin in the morning and 5,000 Units at noon and 5,000 Units in the evening. Lidocaine 4 % patch Place 1 patch on the skin in the morning. loratadine (Claritin) 10 MG tablet Take by mouth. meclizine (Antivert) 25 MG tablet 25 mg 3 times daily as needed for dizziness. melatonin 3 MG tablet Take 3 mg by mouth Nightly as needed. mirtazapine (Remeron) 7.5 MG tablet Take 7.5 mg by mouth daily at bedtime. pantoprazole (ProtoNix) 40 MG EC tablet Take 40 mg by mouth in the morning. senna-docusate (Malu-Colace) 8.6-50 MG tablet Take 1 tablet by mouth in the morning and 1 tablet in the evening. venlafaxine (Effexor) 75 MG tablet Take 75 mg by mouth in the morning and 75 mg at noon and 75 mg in the evening. ALLERGIES Oxycodone-acetaminophen FAMILY HISTORY No family history on file. SOCIAL HISTORY Social History Socioeconomic History Marital status: Tobacco Use Smoking status: Never Smokeless tobacco: Never Vaping Use Vaping status: Never Used Substance and Sexual Activity Alcohol use: Not Currently Drug use: Never Social Drivers of Health Financial Resource Strain: Low Risk (04/30/2024) Received from [facility] Overall Financial Resource Strain (CARDIA) Difficulty of Paying Living Expenses: Not hard at all Food Insecurity: No Food Insecurity (05/19/2024) Received from [facility] Hunger Vital Sign Worried About Running Out of Food in the Last Year: Never true Ran Out of Food in the Last Year: Never true Transportation Needs: No Transportation Needs (05/19/2024) Received from [facility] PRAPARE - Transportation Lack of Transportation (Medical): No Lack of Transportation (Non-Medical): No Stress: No Stress Concern Present (05/15/2024) Received from [facility] - Occupational Stress Questionnaire Feeling of Stress : Not at all Social Connections: Unknown (04/30/2024) Received from [facility] Social Connection and Isolation Panel [NHANES] Frequency of Communication with Friends and Family: More than three times a week Frequency of Social Gatherings with Friends and Family: More than three times a week Attends Moravian Services: Patient declined Active Member of Clubs or Organizations: Patient declined Attends Club or Organization Meetings: Patient declined Marital Status: Intimate Partner Violence: Not At Risk (04/30/2024) Received from [facility] Domestic Abuse Assessment Do you feel safe in your relationships at home?: Yes Physical Abuse: Denies Verbal Abuse: Denies Housing Stability: Low Risk (05/12/2024) Received from [facility] Housing Stability Vital Sign Unable to Pay for Housing in the Last Year: No Number of Times Moved in the Last Year: 1 Homeless in the Last Year: No SCREENINGS [place] Coma Scale Best Eye Response: Spontaneous Best Verbal Response: Confused Best Motor Response: Follows commands [place] Coma Scale Score: 14 PHYSICAL EXAM ED Triage Vitals [12/31/24 0730] Temp Pulse Resp BP 36.6 C (97.8 F) -- 18 -- SpO2 Temp Source Heart Rate Source Patient Position 96 % Oral Monitor Sitting BP Location FiO2 (%) Right arm -- Physical Exam Constitutional: Well-developed and well-nourished. No distress. HENT: Mucous membranes moist Cardiovascular: Regular rate and rhythm. No abnormal heart sounds heard. Pulmonary/Chest: Effort normal with no conversational dyspnea. Clear to auscultation bilaterally. Abdominal: Soft. No tenderness. No distension or guarding. Musculoskeletal: No edema and no calf tenderness to palpation. Neuro: No focal deficit. Oriented x [address] however believes it is 2008. Skin: Skin is warm and dry. Psychiatric: Normal mood and affect. Calm, cooperative DIAGNOSTIC RESULTS Procedures/EKG: EKG was reviewed by myself. Physician EKG interpretation can be found in [facility] RADIOLOGY (Per Emergency Physician): Interpretation per the Radiologist below, if available at the time of this note: No orders to display ED BEDSIDE ULTRASOUND: Performed by ED Physician - none LABS: Labs Reviewed BASIC METABOLIC PANEL - Abnormal Result Value SODIUM 141 POTASSIUM 4.2 CHLORIDE 107 CARBON DIOXIDE 27 UREA NITROGEN 31 (*) CREATININE 1.09 GLUCOSE 88 CALCIUM 9.5 ANION GAP 7 eGFR 70.8 CBC (HEMOGRAM) - Abnormal Auto WBC 6.2 RBC 4.51 Hemoglobin 14.5 Hematocrit 42.4 MCV 94.0 MCH 32.2 MCHC 34.2 RDW 12.5 Platelets 329 MPV 8.8 (*) COMPLETE URINALYSIS - Abnormal Color, Urine Yellow Clarity, Urine Clear pH, Urine 6.0 Leukocytes, Urine Negative Nitrite, Urine Negative Protein, Urine 20 (*) Glucose, Urine Normal Bilirubin, Urine Negative Ketones, Urine Negative Urobilinogen, Urine Normal Blood, Urine Negative Volume, Urine 12 mL RBC, Urine Negative WBC, Urine 0-2 Squamous Epithelial, Urine 0-2 Bacteria, Urine Negative Mucus, Urine Few Hyaline Casts, Urine 0-2 (*) SPECIFIC GRAVITY OF URINE (NUMERIC) 1.024 COMPLETE URINALYSIS WITH REFLEX TO CULTURE Narrative: The following orders were created for panel order Urinalysis complete with reflex to Culture. Procedure Abnormality Status --------- ------ Complete Urinalysis[[id number]] Abnormal Final result Please view results for these tests on the individual orders. All other labs were within normal range or not returned as of this dictation. EMERGENCY DEPARTMENT COURSE and DIFFERENTIAL DIAGNOSIS/MDM: Vitals: Vitals: 12/31/24 0730 12/31/24 1118 BP: (!) 154/91 (!) 150/51 BP Location: Right arm Right arm Patient Position: Sitting Pulse: 74 58 Resp: 18 Temp: 36.6 C (97.8 F) TempSrc: Oral SpO2: 96% 98% Weight: 65.8 kg (145 lb) Height: 1.651 m (5' 5") Diagnoses as of 12/31/24 1149 Agitation due to dementia (HCC) The patient presented with chief complaint of agitation. The differential diagnosis associated with this patient's presentation includes electrolyte abnormality versus UTI versus RODRÍGUEZ. Our workup consisted of ordering/reviewing: Labs. Labs grossly unremarkable. Patient remained calm and cooperative throughout his ED stay. Did not admit any SI HI or hallucinations. It sounds like the outburst earlier was situational and patient does not meet any criteria for inpatient psychiatric admission. I did speak with the nursing harvesting supervisor at [facility] where patient is from and they had requested a pink slip and psychiatric evaluation. I advised that as patient is calm cooperative with out any SI HI hallucinations or angry outbursts at this time while in the emergency department I have no reason to pink slipped this patient and sent in the city for psychiatric evaluation. It sounds like this outburst was situational. I advised that if they wanted a pink slip for this patient and psychiatric evaluation then they could call their PENCIL INSPECTOR or doc to come and evaluate the patient and write a pink slip as no pink slip was sent with the patient. I spoke with the nurse seeing harvesting supervisor again after they spoke with the PENCIL INSPECTOR and the PENCIL INSPECTOR stated that they would accept the patient back in if any further behavior problems were seen or exhibited then pink slip would be placed at that time and patient would be sent to [facility] emergency department for psychiatric evaluation.. The patient will be Discharged. Patient is in agreement with this plan. Patient's care was impacted by dementia. Medications sodium chloride 0.9 % bolus 1,000 mL (0 mL IntraVENous Stopped 12/31/24 0943) REVAL: CRITICAL CARE TIME None CONSULTS: None PROCEDURES: Unless otherwise noted below, none Procedures Patients symptoms are consistent with sepsis, severe sepsis, or septic shock (If yes use ".sepsiscoremeasure"): FINAL IMPRESSION 1. Agitation due to dementia (HCC) DISPOSITION Discharge 12/31/2024 11:14:12 AM PATIENT REFERRED TO: Rose Clark MD [address] [place] [address] [address] [place] [address] Schedule an appointment as soon as possible for a visit in 2 days DISCHARGE MEDICATIONS: Current Discharge Medication List (Comment: Please note this report has been produced using speech recognition software and may contain errors related to that system including errors in grammar, punctuation, and spelling, as well as words and phrases that may be inappropriate. If there are any questions or concerns please feel free to contact the dictating provider for clarification.) Tanya Jung DO (electronically signed) Emergency Medicine Provider Tanya Jung DO 12/31/24 1151 [facility] 09-24-2024 Emergency department Note Paperwork and pt belongings given to Romeo Azul for transport back to SNF, report given. Pt stable with no distress noted on departure. [facility] 09-24-2024 Emergency department Note Paperwork and pt belongings given to Romeo Azul for transport back to SNF, report given. Pt stable with no distress noted on departure. Pt became agitated with staff stating someone is a liar. Pt confused with a hx of dementia. RN reasoned with pt and got him to calm down. Dinner ordered for pt and will continue to monitor. Transport arranged via round trip. RN called and gave report to staff at [facility] This RN answered pt's call light after he was screaming. He said " now I know you aren't just going to walk in here. You aren't going to do anything" Emergency Department Encounter [facility] EMERGENCY DEPT Patient: Jonathon Perales : 1950 Date of Evaluation: 09/24/2024 ED Supervising Physician: Fredrick Howell MD I independently examined and evaluated Jonathon Perales. I personally saw the patient and performed a substantive portion of the visit including all aspects of the medical decision making, made/approved the management plan, and take responsibility for the patient management. In brief, Jonathon Perales is a 74 y.o. male that presents to the emergency department with fall out of senior care crania small injury to his head. No apparent loss of conscious, is on aspirin and Plavix, patient denies headache or neck pain, denies any other injury at this time, denies feeling ill Focused exam: Stable vital signs, nontoxic, resident did full primary and secondary survey but really only injury found is a small scalp injury already treated with Steri-Strips. Does not seem to have neck pain but with his age, head injury, history of dementia would not fully rely on history to adequately clear. No other injuries noted. ED course/MDM: Needs head and neck CT because of fall with head injury on blood thinners but in absence of loss of conscious or other acute neurologic findings would not feel he needs admitted for further observation if that checks out okay. Diagnostic considerations: Serna results and interpretations: Treatment summary: Consultations: SCREENINGS CRITICAL CARE TIME I, Dr. Fredrick Howell, am the medical researcher of record. All diagnostic, treatment, and disposition decisions were made by myself in conjunction with the resident or DAHIANA I supervised for this case. For all further details of the patient's emergency department visit, please see their documentation. (Please note that portions of this note may have been completed with a voice recognition program. Efforts were made to edit the dictations but occasionally words are mis-transcribed.) Fredrick Howell MD Acute Care [facility] Fredrick Howell MD 09/24/24 4107 Ultrasound Guided Peripheral Intravenous Line Placement PROCEDURE NOTE: IV Placement under Ultrasound Guidance Performed by: Fahad Tucker DO Indication: IV access required. Procedure: The area was prepped in the usual fashion. The median cubital vein was cannulated with a #20 gauge long angiocath with use of dynamic ultrasound to identify the vein. The patient tolerated the procedure well. Complications: None Fahad Tucker DO Resident 09/24/24 7916 Cosigned by Fredrick Howell MD at 09/24/2024 5:24 PM EST documented in this encounter [facility] 09-24-2024 Emergency department Note Pt became agitated with staff stating someone is a liar. Pt confused with a hx of dementia. RN reasoned with pt and got him to calm down. Dinner ordered for pt and will continue to monitor. [facility] 09-24-2024 Emergency department Note Transport arranged via round trip. RN called and gave report to staff at [facility] 09-24-2024 Emergency department Note This RN answered pt's call light after he was screaming. He said " now I know you aren't just going to walk in here. You aren't going to do anything" [facility] 09-24-2024 Hospital Discharge instructions Sloane Saldaña MD - 09/24/2024 4:19 PM EST Send the patient to the emergency department if he develops signs of a stroke like sudden uncontrollable vomiting, slurred speech, worse confusion than usual, or sudden weakness or numbness in 1 part of his body. Nausea, sensitivity to light or sound, and frequent headaches especially if they worsen with light, loud noise, looking at screens, or concentrating are signs of a concussion. If he develops any of these symptoms, you should treat headaches with Tylenol and by avoiding the trigger, he should sleep as much as he feels like sleeping, and see his primary care physician if the symptoms last longer than 5 days. documented in this encounter [facility] 09-24-2024 Note Ultrasound Guided Pe ripheral Intravenous Line Placement PROCEDURE NOTE: IV Placement under Ultrasound Guidance Performed by: Fahad Tucker DO Indication: IV access required. Procedure: The area was prepped in the usual fashion. The median cubital vein was cannulated with a #20 gauge long angiocath with use of dynamic ultrasound to identify the vein. The patient tolerated the procedure well. Complications: None Fahad Tucker DO Resident 09/24/24 1445 [facility] 09-24-2024 Physician Emergency department Note Emergency Department Encounter [facility] EMERGENCY DEPT Patient: Jonathon Perales : 1950 Date of Evaluation: 09/24/2024 ED Supervising Physician: Fredrick Howell MD I independently examined and evaluated Jonathon Perales. I personally saw the patient and performed a substantive portion of the visit including all aspects of the medical decision making, made/approved the management plan, and take responsibility for the patient management. In brief, Jonathon Perales is a 74 y.o. male that presents to the emergency department with fall out of senior care crania small injury to his head. No apparent loss of conscious, is on aspirin and Plavix, patient denies headache or neck pain, denies any other injury at this time, denies feeling ill Focused exam: Stable vital signs, nontoxic, resident did full primary and secondary survey but really only injury found is a small scalp injury already treated with Steri-Strips. Does not seem to have neck pain but with his age, head injury, history of dementia would not fully rely on history to adequately clear. No other injuries noted. ED course/MDM: Needs head and neck CT because of fall with head injury on blood thinners but in absence of loss of conscious or other acute neurologic findings would not feel he needs admitted for further observation if that checks out okay. Diagnostic considerations: Serna results and interpretations: Treatment summary: Consultations: SCREENINGS CRITICAL CARE TIME I, Dr. Fredrick Howell, am the medical researcher of record. All diagnostic, treatment, and disposition decisions were made by myself in conjunction with the resident or DAHIANA I supervised for this case. For all further details of the patient's emergency department visit, please see their documentation. (Please note that portions of this note may have been completed with a voice recognition program. Efforts were made to edit the dictations but occasionally words are mis-transcribed.) Fredrick Howell MD [facility] Fredrick Howell MD 09/24/24 1437 [facility] Phone: 09-24-2024 Physician Emergency department Note Ultrasound Guided Peripheral Intravenous Line Placement PROCEDURE NOTE: IV Placement under Ultrasound Guidance Performed by: Fahad Tucker DO Indication: IV access required. Procedure: The area was prepped in the usual fashion. The median cubital vein was cannulated with a #20 gauge long angiocath with use of dynamic ultrasound to identify the vein. The patient tolerated the procedure well. Complications: None Fahad Tucker DO Resident 09/24/24 0572 Cosigned by Fredrick Howell MD at 09/24/2024 5:24 PM EST [facility] Phone: 09-14-2024 Telephone encounter Note Patient/Patient's Pharmacy is requesting the following refill. Patient's last appointment: 06/15/24. Next appointment: none . Requested Prescriptions Pending Prescriptions Disp Refills metoprolol tartrate, short acting, (LOPRESSOR) 25 mg tablet [Pharmacy Med Name: Metoprolol Tartrate Oral Tablet 25 MG] 90 tablet 3 Sig: take one-half tablet by mouth twice daily pantoprazole DR (PROTONIX) 40 mg tablet [Pharmacy Med Name: Pantoprazole Sodium Oral Tablet Delayed Release 40 MG] 90 tablet 3 Sig: take one tablet by mouth every day Patient Phone numbers: [phone] (home) Request is for script(s) to be escript to pharmacy. Sheela Vences LPN [facility] 09-14-2024 Telephone encounter Note Patient/Patient's Pharmacy is requesting the following refill. Patient's last appointment: 06/15/24. Next appointment: none . Requested Prescriptions Pending Prescriptions Disp Refills venlafaxine (EFFEXOR) 75 mg tablet [Pharmacy Med Name: Venlafaxine HCl Oral Tablet 75 MG] 270 tablet 3 Sig: TAKE 1 TABLET BY MOUTH IN THE MORNING AND 2 TABLETS AT BEDTIME Patient Phone numbers: [phone] (home) Request is for script(s) to be escript to pharmacy. Sheela Vences LPN [facility] 09-14-2024 Miscellaneous Notes Patient/Patient's Pharmacy is requesting the following refill. Patient's last appointment: 06/15/24. Next appointment: none . Requested Prescriptions Pending Prescriptions Disp Refills metoprolol tartrate, short acting, (LOPRESSOR) 25 mg tablet [Pharmacy Med Name: Metoprolol Tartrate Oral Tablet 25 MG] 90 tablet 3 Sig: take one-half tablet by mouth twice daily pantoprazole DR (PROTONIX) 40 mg tablet [Pharmacy Med Name: Pantoprazole Sodium Oral Tablet Delayed Release 40 MG] 90 tablet 3 Sig: take one tablet by mouth every day Patient Phone numbers: [phone] (home) Request is for script(s) to be escript to pharmacy. Sheela Vences LPN documented in this encounter [facility] 09-14-2024 Miscellaneous Notes Patient/Patient's Pharmacy is requesting the following refill. Patient's last appointment: 06/15/24. Next appointment: none . Requested Prescriptions Pending Prescriptions Disp Refills venlafaxine (EFFEXOR) 75 mg tablet [Pharmacy Med Name: Venlafaxine HCl Oral Tablet 75 MG] 270 tablet 3 Sig: TAKE 1 TABLET BY MOUTH IN THE MORNING AND 2 TABLETS AT BEDTIME Patient Phone numbers: [phone] (home) Request is for script(s) to be escript to pharmacy. Sheela Vences LPN documented in this encounter [facility] 07-14-2024 Telephone encounter Note MODIFIED STAN SCORE POST-DISCHARGE Telephone Visit Patient Name: Jonathon Perales Today's date: July 14, 2024 Date of discharge: April 30, 2024 Person giving information: Lindsay Kavehrashaadmehdi. Relationship to patient: daughter. Contact information: [phone] Contact attempt: #1 Patient discharge location: Rehab Patient current location: SNF Presentation to ED or readmission after discharge: Yes. Reason- fall. ED visit for increasing needs of care. Modified [place] Score: 90 days post discharge: 4 = Mod-Severe disability. Unable to walk w/o assistance. Needs assistance for bodily needs. Mortality: No Daughter states that patient is in SNF at this time. He is able to feed self but requires assistance with other tasks. Still with left-sided weakness. Has cognitive changes since stroke as well. Signature: Daiana Blas RN July 14, 2024 11:[address] [facility] 07-14-2024 Miscellaneous Notes MODIFIED STAN SCORE POST-DISCHARGE Telephone Visit Patient Name: Jonathon Perales Today's date: July 14, 2024 Date of discharge: April 30, 2024 Person giving information: Lindsay Perales. Relationship to patient: daughter. Contact information: [phone] Contact attempt: #1 Patient discharge location: Rehab Patient current location: SNF Presentation to ED or readmission after discharge: Yes. Reason- fall. ED visit for increasing needs of care. Modified [place] Score: 90 days post discharge: 4 = Mod-Severe disability. Unable to walk w/o assistance. Needs assistance for bodily needs. Mortality: No Daughter states that patient is in SNF at this time. He is able to feed self but requires assistance with other tasks. Still with left-sided weakness. Has cognitive changes since stroke as well. Signature: Daiana Blas RN July 14, 2024 11:17 AM documented in this encounter [facility] 07-02-2024 Telephone encounter Note Called patient to notify Gary is leaving the practice so we will need to reschedule their appt. Appt cancelled. Message relayed to patients millie Montoya . Alberto Guillen MA [facility] 07-02-2024 Miscellaneous Notes Called patient to notify Gary is leaving the practice so we will need to reschedule their appt. Appt cancelled. Message relayed to patients millie Montoya . Alberto Guillen MA documented in this encounter [facility] 06-26-2024 Note HNO ID: [id number] Author: ANITA BARRERA RN Service: ? Author Type: Registered Nurse Type: Progress Notes Filed: 06/26/2024 08:39 Note Text: TRANSITION CARE MANAGEMENT (TCM) DISCHARGE TO POST ACUTE FACILITY POST ACUTE TRANSFER SUMMARY: -Post Acute Facility Admitted to [facility] on 06/26/2024 -Admitted for: Behavior concern. The family can no longer care for the patient. Anita Barrera RN [facility] 06-26-2024 History of Present illness Narrative TRANSITION CARE MANAGEMENT (TCM) DISCHARGE TO POST ACUTE FACILITY POST ACUTE TRANSFER SUMMARY: -Post Acute Facility Admitted to [facility] on 06/26/2024 -Admitted for: Behavior concern. The family can no longer care for the patient. Anita Barrera RN documented in this encounter [facility] 06-26-2024 Telephone encounter Note Patient/Patient's Pharmacy is requesting the following refill. Patient's last appointment: 06/15/24. Next appointment: 08/11/24 . Requested Prescriptions Pending Prescriptions Disp Refills carbidopa-levodopa (SINEMET 25-100) 25-100 mg per tablet [Pharmacy Med Name: Carbidopa-Levodopa Oral Tablet 25-100 MG] 270 tablet 0 Sig: take one tablet by mouth three times a day Patient Phone numbers: [phone] (home) Request is for script(s) to be escript to pharmacy. Sheela Vences LPN [facility] 06-26-2024 Miscellaneous Notes Patient/Patient's Pharmacy is requesting the following refill. Patient's last appointment: 06/15/24. Next appointment: 08/11/24 . Requested Prescriptions Pending Prescriptions Disp Refills carbidopa-levodopa (SINEMET 25-100) 25-100 mg per tablet [Pharmacy Med Name: Carbidopa-Levodopa Oral Tablet 25-100 MG] 270 tablet 0 Sig: take one tablet by mouth three times a day Patient Phone numbers: [phone] (home) Request is for script(s) to be escript to pharmacy. Sheela Vences LPN documented in this encounter [facility] 06-26-2024 Note Patient Outreach (AG AC) JONATHON PERALES ([id number]) 1950 M T Date Time Provider Department 06/26/24 ANITA BARRERA [facility] During your visit today, we recorded the following information about you: Anita Barrera, RN 06/26/2024 8:39 AM Signed TRANSITION CARE MANAGEMENT (TCM) DISCHARGE TO POST ACUTE FACILITY POST ACUTE TRANSFER SUMMARY: -Post Acute Facility Admitted to [facility] on 06/26/2024 -Admitted for: Behavior concern. The family can no longer care for the patient. Anita Barrera RN Allergies As of Date: 06/26/2024 Noted Allergy Reaction PERCOCET (OXYCODONE-ACETAMINOPHEN) 8 1 - Mental Status Change Comments: HALLUCINATIONS Date Reviewed: 06/25/2024 Reviewed by: Bharati Michelle RN - Fully Assessed Reason for Visit: Transition Of Care [4074] Cmt: TCM. Admitted to [facility] Prescriptions as of 06/26/2024 - carbidopa-levodopa (SINEMET 25-100) 25-100 mg per tablet Take 1 tablet by mouth three times a day. - loratadine (CLARITIN) 10 mg tablet Take 1 tablet by mouth every afternoon. - clopidogrel (PLAVIX) 75 mg tablet take one tablet by mouth every day - metoprolol tartrate, short acting, (LOPRESSOR) 25 mg tablet - venlafaxine (EFFEXOR) 75 mg tablet Take 1 tablet by mouth three times a day. - gabapentin (NEURONTIN) 100 mg capsule Take 1 capsule by mouth every 12 hours for 1 day. - melatonin 3 mg tablet Take 1 tablet by mouth at bedtime as needed for insomnia. - senna-docusate (SENNA-S) 8.6-50 mg per tablet Take 1 tablet by mouth two times a day. - aspirin, enteric coated (ASPIRIN, ENTERIC COATED) 81 mg EC tablet Take 81 mg by mouth once daily. - meclizine (ANTIVERT) 25 mg tab TAKE ONE TABLET BY MOUTH EVERY 6 HOURS NEEDED FOR DIZZINESS - pantoprazole DR (PROTONIX) 40 mg tablet Take 1 tablet by mouth once daily. - atorvastatin (LIPITOR) 80 mg tablet Take 1 tablet by mouth daily at bedtime. - acetaminophen (TYLENOL) 325 mg tablet Take 2 tablets by mouth every 6 hours as needed. Problem List As Of Date 06/26/2024 Noted Resolved Coronary artery disease involving little traverse reyna*12/18/2016 S/P AVR (aortic valve replacement) [Z95.2] 12/18/2016 Kidney stone [N20.0] 01/11/2017 Hematuria [R31.9] 01/11/2017 High cholesterol [E78.00] 01/11/2017 HTN (hypertension), benign [I10] 01/11/2017 02/12/2018 Closed stable burst fracture of eighth thoracic*01/11/2017 Lumbar compression fracture (HCC) [S32.000A] 01/11/2017 Vitamin D deficiency [E55.9] Vitamin B12 deficiency [E53.8] Seasonal allergic rhinitis [J30.2] HTN (hypertension) [I10] Recurrent major depressive disorder, in full re* CVA (cerebral vascular accident) (HCC) [I63.9] Cerebellar stroke (HCC) [I63.9] CAD (coronary artery disease) [I25.10] JAIRO (obstructive sleep apnea) [G47.33] LVH (left ventricular hypertrophy) [I51.7] Hyperlipidemia [E78.5] 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] 08/11/2018 CKD (chronic kidney disease) stage 2, GFR 60-89*09/25/2019 Intractable vomiting with nausea [R11.2] 07/26/2020 08/03/2020 Chronic abdominal pain [R10.9, G89.29] 07/26/2020 Intractable nausea and vomiting [R11.2] 07/26/2020 Lumbar radiculopathy [M54.16] 09/07/2020 Closed wedge compression fracture of T7 vertebr*01/05/2021 PAD (peripheral artery disease) (HCC) [I73.9] 03/23/2021 Left leg claudication (HCC) [I73.9] 03/23/2021 Open nondisplaced fracture of distal phalanx of*05/03/2021 Displaced fracture of distal phalanx of left in*05/03/2021 Displaced fracture of distal phalanx of left in*05/10/2021 Anxiety with depression [F41.8] 09/14/2022 Left-sided weakness [R53.1] 01/19/2023 Nicotine use disorder, F17.2 [F17.200] 01/20/2023 Carotid stenosis, right [I65.21] 01/21/2023 Suspected cerebrovascular accident (CVA) [R09.8*02/23/2023 Moderate episode of recurrent major depressive *09/19/2023 Stage 3a chronic kidney disease (HCC) [N18.31] 09/19/2023 Acute ischemic right MCA stroke (HCC) [I63.511] 04/16/2024 On mechanically assisted ventilation (HCC) [Z99*04/16/2024 Left hemiplegia (HCC) [G81.94] 04/16/2024 Facial droop due to acute cerebrovascular accid*04/16/2024 Aphasia [R47.01] 04/16/2024 Primary hypertension [I10] 04/16/2024 Mixed hyperlipidemia [E78.2] 04/16/2024 History of aortic valve replacement [Z95.2] 04/16/2024 JAIRO (obstructive sleep apnea) [G47.33] 04/16/2024 Acute respiratory failure (HCC) [J96.00] 04/16/2024 06/20/2024 Leukocytosis [D72.829] 04/16/2024 04/17/2024 At risk for delirium [Z91.89] 04/21/2024 Multiple rib fractures involving first rib [S22*05/18/2024 05/19/2024 Multiple closed fractures of ribs of left side *05/19/2024 Acute pain due to trauma [G89.11 (more content not included)... [facility] 06-25-2024 Note HNO ID: [id number] Author: DYLON POWERS RN Service: Care Management Author Type: Registered Nurse Type: Care Mgt Progress Note Filed: 06/25/2024 11:34 Note Text: CARE MANAGEMENT PROGRESS NOTE SERVICE DATE: 06/25/2024 SERVICE TIME: 11:21 AM LOS: 0 days Patient brought to ER with daughter requesting patient placement to [facility]. Patient recently pulled from [facility] with hope that patient could remain with daughter. However, his LOC requires more than daughter can provide. Daughter's goal is to eventually get patient transferred from [facility] to [facility]. Patient spouse resides at [facility], but currently there is no room available for patient there. Lindsay has been working with [facility] on getting patient admitted there and updating them on her situation with patient at home. Discussed with patient daughter, Lindsay, that patient is out of SNF days. She verbalized understanding and is aware that this will be private pay until the Medicaid (per Lindsay - in process) will start. CM completed referral through [facility] to [facility]. PASRR completed and sent to facility. They can accept patient today. CM discussed with bedside RN and MD Bermudez in the ED. Plan to transfer patient to [facility] from the ED. ADDENDUM: 11:33 AM Assistant Professor Of Education called and spoke with daughter, Lindsay, to update her on plan for patient to discharge to [facility] from the ER in the next 1-2 hours. [phone] SIGNATURE: Dylon Powers RN PATIENT NAME: Jonathon Perales DATE: June 25, 2024 TIME: 11:21 AM PAGER/CONTACT #: [phone] [facility] 06-24-2024 Telephone encounter Note Patient's daughter, Josefina, called. She is requesting medical records be faxed to [address] [place]. Called [facility] - spoke with Dariela in admissions. She said as of now they do not have a bed for patient. Patient's is there in isolation due to COVID. Daughter said she can no longer take care of him. Daughter wants him to be with his . She said to fax records and she will keep them for when a bed is open. Faxed medical records to above. Izabel [facility] 06-24-2024 Miscellaneous Notes Patient's daughter, Josefina, called. She is requesting medical records be faxed to [address] [place]. Called [facility] - spoke with Dariela in admissions. She said as of now they do not have a bed for patient. Patient's is there in isolation due to COVID. Daughter said she can no longer take care of him. Daughter wants him to be with his . She said to fax records and she will keep them for when a bed is open. Faxed medical records to above. Izabel documented in this encounter [facility] 06-22-2024 Telephone encounter Note Record show he has not been on this medication for a while. May have been stopped in the Hospital. He or daughter can call Neurology and get their opinion [facility] 06-22-2024 Miscellaneous Notes Record show he has not been on this medication for a while. May have been stopped in the Hospital. He or daughter can call Neurology and get their opinion [facility] requesting refill on Carbidopa Pended Please advise Thank you Alona Velasquez PSS documented in this encounter [facility] 06-22-2024 Telephone encounter Note [facility] requesting refill on Carbidopa Pended Please advise Thank you Alona Velasquez PSS [facility] 06-19-2024 Note HNO ID: [id number] Author: ANITA BARRERA, JORGE Service: ? Author Type: Registered Nurse Type: Progress Notes Filed: 06/19/2024 15:23 Note Text: TRANSITIONAL CARE MANAGEMENT (TCM) COMMUNITY MONITORING PROGRAM - [facility] Provider Action/FYI: Patient attended a follow up visit with PCP on 06/15, not a TCM Waiting on insurance authorization for home care from [facility] Patient's insurance was turned down by [facility] and [facility] Anita Barrera RN SUMMARY: [facility] [address] [facility] on 05/20/[facility]24. Pt discharged from [facility] on 06/18/2024 Admitted for: Multiple Rib Fractures Patient seen Inpatient GLYNN Visit? No. Patient seen ICARE Program? No. Contact made with patient: Yes Hi my name is Anita Barrera, JORGE and I am calling from the [facility] on behalf of your PCP, Giorgio Fernandez, DO I understand you were recently in the hospital so I am calling to check in with you to ensure you are feeling well now that you?re home. Do you mind if I ask you a few questions related to your hospital stay and well-being Yes Contact with patient post discharge, spoke to daughter, patient's POA. Patient identified by name and . Do you feel your health is BETTER, WORSE, or the SAME since leaving the hospital? Better ACTION TAKEN: Patient indicated symptoms are better or same, no action required. Continue outreach. N/A MEDICATIONS: Many patients have questions or concerns about their medications once they are home. Do you have any questions about taking your medications or which medication you should be on? No Do you need any medication refills at this time, including any of the medications you might take only when needed? No ACTION TAKEN: No action required For RNs or Pharmacy completing outreach ONLY, was a medication review completed? Yes SOCIAL: We would like to make sure you have what you need so that your basics needs are met - including your personal safety. HEALTH LEADS SCREENING TOOL QUESTIONS: Do you often feel you lack companionship? No Do you ever need help reading or understanding hospital materials? No In the last 12 months, have you changed how you take medications to save money? No In the past 12 months, has lack of transportation kept you from medical appointments, work or getting things you need like food, or supplies? No In the last 12 months, did you ever eat less than you felt you should because there wasn't enough money for food? No During the winter, do you anticipate having a problem paying your heating bill? No In the next 2 months, are you worried you might not have stable housing? No Would you like to speak with a social work pricing/signage team member to help give you support for any of these needs? No It can be normal to feel anxious or down during a time like this. Would you like to talk to a mental health professional about how you have been feeling? No ACTION TAKEN: No action taken DISCHARGE INTRUCTIONS: Your discharge instructions / After Visit Summary (AVS) are important in guiding you through the recovery process. Do you have any questions related to your discharge instructions? No Do you have all the necessary equipment and supplies at home? Yes ACTION TAKEN: No action required WRAP AROUND SERVICES: Primary Care first education/Where to go for Care Patient educated on importance of primary care provider follow up visit as well as specialty provider follow up visits as indicated. Inform the patient that if they have any questions or concerns prior to that appointment, to call their Primary Care Provider 's office right away. Primary care provider first education provided. I would like to help you schedule a hospital follow-up virtual or telephone visit with your PCP. ACTION TAKEN: TCM Primary Care Provider Visit Scheduled: No - patient already saw PCP on 06/15 for a follow up but it wasn't a TCM appt because patient was still admitted at [facility] at the time Do not go to your Doctor's office unless instructed to do so. For any non-emergency symptoms, call your Doctor's office to get instructions on how to manage (we might recommend a telephone or virtual visit). For emergency symptoms, proceed to Emergency Department as usual but inform them of cough and fever symptoms SAMIRA if present (or call on the way if possible). Anita Barrera RN June 19, 2024 10:04 AM [facility] 06-19-2024 History of Present illness Narrative TRANSITIONAL CARE MANAGEMENT (TCM) COMM[facility]ITY [facility] Provider Action/FYI: Patient attended a follow up visit with PCP on 06/15, not a TCM Waiting on insurance authorization for home care from [facility] Patient's insurance was turned down by [facility] and [facility] Anita Barrera RN SUMMARY: Pt discharged from [address] [place] [address] on 05/20/2024. Pt discharged from [facility] on 06/18/2024 Admitted for: Multiple Rib Fractures Patient seen Inpatient GLYNN Visit? No. Patient seen ICARE Program? No. Contact made with patient: Yes Hi my name is Anita Barrera RN and I am calling from the [facility] on behalf of your PCP, Giorgio Fernandez, DO I understand you were recently in the hospital so I am calling to check in with you to ensure you are feeling well now that you re home. Do you mind if I ask you a few questions related to your hospital stay and well-being Yes Contact with patient post discharge, spoke to daughter, patient's POA. Patient identified by name and . Do you feel your health is BETTER, WORSE, or the SAME since leaving the hospital? Better ACTION TAKEN: Patient indicated symptoms are better or same, no action required. Continue outreach. N/A MEDICATIONS: Many patients have questions or concerns about their medications once they are home. Do you have any questions about taking your medications or which medication you should be on? No Do you need any medication refills at this time, including any of the medications you might take only when needed? No ACTION TAKEN: No action required For RNs or Pharmacy completing outreach ONLY, was a medication review completed? Yes SOCIAL: We would like to make sure you have what you need so that your basics needs are met - including your personal safety. HEALTH LEADS SCREENING TOOL QUESTIONS: Do you often feel you lack companionship? No Do you ever need help reading or understanding hospital materials? No In the last 12 months, have you changed how you take medications to save money? No In the past 12 months, has lack of transportation kept you from medical appointments, work or getting things you need like food, or supplies? No In the last 12 months, did you ever eat less than you felt you should because there wasn't enough money for food? No During the winter, do you anticipate having a problem paying your heating bill? No In the next 2 months, are you worried you might not have stable housing? No Would you like to speak with a social work pricing/signage team member to help give you support for any of these needs? No It can be normal to feel anxious or down during a time like this. Would you like to talk to a mental health professional about how you have been feeling? No ACTION TAKEN: No action taken DISCHARGE INTRUCTIONS: Your discharge instructions / After Visit Summary (AVS) are important in guiding you through the recovery process. Do you have any questions related to your discharge instructions? No Do you have all the necessary equipment and supplies at home? Yes ACTION TAKEN: No action required WRAP AROUND SERVICES: Primary Care first education/Where to go for Care Patient educated on importance of primary care provider follow up visit as well as specialty provider follow up visits as indicated. Inform the patient that if they have any questions or concerns prior to that appointment, to call their Primary Care Provider 's office right away. Primary care provider first education provided. I would like to help you schedule a hospital follow-up virtual or telephone visit with your PCP. ACTION TAKEN: TCM Primary Care Provider Visit Scheduled: No - patient already saw PCP on 06/15 for a follow up but it wasn't a TCM appt because patient was still admitted at [facility] at the time Do not go to your Doctor's office unless instructed to do so. For any non-emergency symptoms, call your Doctor's office to get instructions on how to manage (we might recommend a telephone or virtual visit). For emergency symptoms, proceed to Emergency Department as usual but inform them of cough and fever symptoms SAMIRA if present (or call on the way if possible). Anita Barrera RN June 19, 2024 10:04 AM documented in this encounter [facility] 06-19-2024 Note HNO ID: [id number] Author: MARIA ISABEL PISANO RN Service: ? Author Type: Registered Nurse Type: Progress Notes Filed: 06/19/2024 07:31 Note Text: Received notification via careport: Patient discharged from [facility] on 06/18/2024 to home with home health care (agency unknown). A discharge summary and medicatoin list has been requested. PCC notified. Maria Isabel Pisano RN June 19, 2024 [facility] 06-19-2024 History of Present illness Narrative Received notification via careport: Patient discharged from [facility] on 06/18/2024 to home with home health care (agency unknown). A discharge summary and medicatoin list has been requested. PCC notified. Maria Isabel Pisano RN June 19, 2024 documented in this encounter [facility] 06-19-2024 Note Patient Outreach (AG ACM) ANGELLAJONATHON Criss ([id number]) 1950 M [facility] Date Time Provider Department 06/19/24 ANITA BARRERA [facility] During your visit today, we recorded the following information about you: Anita Barrera, RN 06/19/2024 3:23 PM Signed TRANSITIONAL CARE MANAGEMENT (TCM) COMMUNITY MONITORING PROGRAM - [facility] Provider Action/FYI: Patient attended a follow up visit with PCP on 06/15, not a TCM Waiting on insurance authorization for home care from [facility] Patient's insurance was turned down by [facility] and [facility] Anita Barrera, RN SUMMARY: Pt discharged from [address] [place] [address] on 05/20/2024. Pt discharged from [facility] on 06/18/2024 Admitted for: Multiple Rib Fractures Patient seen Inpatient GLYNN Visit? No. Patient seen ICARE Program? No. Contact made with patient: Yes Hi my name is Anita Barrera RN and I am calling from the [facility] on behalf of your PCP, Giorgio Fernandez, DO I understand you were recently in the hospital so I am calling to check in with you to ensure you are feeling well now that you?re home. Do you mind if I ask you a few questions related to your hospital stay and well-being Yes Contact with patient post discharge, spoke to daughter, patient's POA. Patient identified by name and . Do you feel your health is BETTER, WORSE, or the SAME since leaving the hospital? Better ACTION TAKEN: Patient indicated symptoms are better or same, no action required. Continue outreach. N/A MEDICATIONS: Many patients have questions or concerns about their medications once they are home. Do you have any questions about taking your medications or which medication you should be on? No Do you need any medication refills at this time, including any of the medications you might take only when needed? No ACTION TAKEN: No action required For RNs or Pharmacy completing outreach ONLY, was a medication review completed? Yes SOCIAL: We would like to make sure you have what you need so that your basics needs are met - including your personal safety. HEALTH LEADS SCREENING TOOL QUESTIONS: Do you often feel you lack companionship? No Do you ever need help reading or understanding hospital materials? No In the last 12 months, have you changed how you take medications to save money? No In the past 12 months, has lack of transportation kept you from medical appointments, work or getting things you need like food, or supplies? No In the last 12 months, did you ever eat less than you felt you should because there wasn't enough money for food? No During the winter, do you anticipate having a problem paying your heating bill? No In the next 2 months, are you worried you might not have stable housing? No Would you like to speak with a social work pricing/signage team member to help give you support for any of these needs? No It can be normal to feel anxious or down during a time like this. Would you like to talk to a mental health professional about how you have been feeling? No ACTION TAKEN: No action taken DISCHARGE INTRUCTIONS: Your discharge instructions / After Visit Summary (AVS) are important in guiding you through the recovery process. Do you have any questions related to your discharge instructions? No Do you have all the necessary equipment and supplies at home? Yes ACTION TAKEN: No action required WRAP AROUND SERVICES: Primary Care first education/Where to go for Care Patient educated on importance of primary care provider follow up visit as well as specialty provider follow up visits as indicated. Inform the patient that if they have any questions or concerns prior to that appointment, to call their Primary Care Provider 's office right away. Primary care provider first education provided. I would like to help you schedule a hospital follow-up virtual or telephone visit with your PCP. ACTION TAKEN: TCM Primary Care Provider Visit Scheduled: No - patient already saw PCP on 06/15 for a follow up but it wasn't a TCM appt because patient was still admitted at [facility] at the time Do not go to your Doctor's office unless instructed to do so. For any non-emergency symptoms, call your Doctor's office to get instructions on how to manage (we might recommend a telephone or virtual visit). For emergency symptoms, proceed to Emergency Department as usual but inform them of cough and fever symptoms SAMIRA if present (or call on the way if possible). Anita Barrera RN June 19, 2024 10:04 AM Allergies As of Date: 06/19/2024 Noted Allergy Reaction PERCOCET (OXYCODONE-ACETAMINOPHEN) 8 1 - Mental Status Change Comments: HALLUCINATIONS Date Reviewed: 06/15/2024 Reviewed by: Tanya Richter MA - Fully Assessed Prescriptions as of 06/19/2024 - metoprolol tartrate, short acting, (LOPRESSOR (more content not included)... [facility] 06-19-2024 Note Patient Outreach ( AC) JONATHON PERALES ([id number]) 1950 [facility] Date Time Provider Department 06/19/24 MARIA ISABEL PISANO [facility] During your visit today, we recorded the following information about you: Maria Isabel Pisano RN 06/19/2024 7:31 AM Signed Received notification via careport: Patient discharged from [facility] on 06/18/2024 to home with home health care (agency unknown). A discharge summary and medicatoin list has been requested. PCC notified. Maria Isabel Pisano RN June 19, 2024 Allergies As of Date: 06/19/2024 Noted Allergy Reaction PERCOCET (OXYCODONE-ACETAMINOPHEN) 8 1 - Mental Status Change Comments: HALLUCINATIONS Date Reviewed: 06/15/2024 Reviewed by: Tanya Richter MA - Fully Assessed Reason for Visit: Population Health Navigation Outreach [3910] Cmt: Discharged from [facility] to Home with Home Health Care Prescriptions as of 06/19/2024 - metoprolol tartrate, short acting, (LOPRESSOR) 25 mg tablet - venlafaxine (EFFEXOR) 75 mg tablet Take 1 tablet by mouth three times a day. - gabapentin (NEURONTIN) 100 mg capsule Take 1 capsule by mouth every 12 hours for 1 day. - lidocaine (SALONPAS) 4 % patch Apply 1 Patch as directed once daily. - melatonin 3 mg tablet Take 1 tablet by mouth at bedtime as needed for insomnia. - senna-docusate (SENNA-S) 8.6-50 mg per tablet Take 1 tablet by mouth two times a day. - Mirtazapine (REMERON) 7.5 mg tablet Take 7.5 mg by mouth daily at bedtime. - clopidogrel (PLAVIX) 75 mg tablet Take 1 tablet by mouth once daily. - aspirin, enteric coated (ASPIRIN, ENTERIC COATED) 81 mg EC tablet Take 81 mg by mouth once daily. - meclizine (ANTIVERT) 25 mg tab TAKE ONE TABLET BY MOUTH EVERY 6 HOURS NEEDED FOR DIZZINESS - pantoprazole DR (PROTONIX) 40 mg tablet Take 1 tablet by mouth once daily. - atorvastatin (LIPITOR) 80 mg tablet Take 1 tablet by mouth daily at bedtime. - acetaminophen (TYLENOL) 325 mg tablet Take 2 tablets by mouth every 6 hours as needed. Problem List As Of Date 06/19/2024 Noted Resolved Coronary artery disease involving little traverse reyna*12/18/2016 S/P AVR (aortic valve replacement) [Z95.2] 12/18/2016 Kidney stone [N20.0] 01/11/2017 Hematuria [R31.9] 01/11/2017 High cholesterol [E78.00] 01/11/2017 HTN (hypertension), benign [I10] 01/11/2017 02/12/2018 Closed stable burst fracture of eighth thoracic*01/11/2017 Lumbar compression fracture (HCC) [S32.000A] 01/11/2017 Vitamin D deficiency [E55.9] Vitamin B12 deficiency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 HCT -- 35.7* -- 39.2 PLT -- 339 -- 369 INR -- -- 1.0 -- PHYSICAL EXAM: Genl: Appears age appropriate. No acute distress. Resting comfortably. Head/Face: Normocephalic. Atraumatic. Left-sided facial droop. Eyes: EOMI. PERRLA. Sclera not icteric, not injected Neck: No mid-line masses. C-spine non-tender. Back: No midline tenderness, step-offs or deformities. Resp: Lungs CTAB. No wheezes, rales or rhonchi. Respiratory status stable on RA @ 97%. Left-chest wall bruising. CVS: RRR as above. 2+ RA, DP, PT pulses bilaterally. GI: Abdomen is soft, non-tender, non-distended. No guarding or peritoneal signs. MSK: No gross deformities. No clubbing, cyanosis or edema. Normal AROM x 2. Limited ROM to LUE/LLE secondary to CVA. Skin: Warm and dry. Not jaundiced. Neuro: AANDOx3. Strength and sensation grossly intact in all extremities. TAYLOR. GCS15. Psych: Normal mood. Normal affect. Appropriate insight into current situation. ASSESSMENT AND PLAN: Assessment Active Hospital Problems Diagnosis Date Noted Multiple rib fractures involving first rib 05/18/2024 74-year old male s/p fall on 05/18/24 (Trauma II) Imaging performed: CT HNFCAPTL-spine, CTA HN, repeat CT brain (05/18) CXR (05/19) Traumatic Injuries: Acute nondisplaced anterior left 6th, displaced anterior left 7th rib fractures. Subacute left anterior 8th-10th rib fractures. Associated anterior chest/abdominal wall subcutaneous injury/bruising in these regions. Operations/Procedures: None Care Plan: Left rib fractures Respiratory status stable on RA Repeat CXR (05/19): Stable appearance of chest Non-operative management Multimodal pain control Aggressive pulmonary hygiene Mobilize as tolerated Recent MCA stroke S/p TNK/thrombectomy, DARIN/CCA stenting with Dr. Cantor 04/16 Patient presented to ED with concern for worsening left-sided weakness, left facial droop, dysarthria, and neglect CT brain/CTA HN revealed known subacute infarct Stroke team believed hi (more content not included)... [facility] 05-19-2024 Note HNO ID: [id number] Author: ARIELLE RUIZ DO Service: Hospital Medicine Author Type: Physician Type: Progress Notes Filed: 05/19/2024 14:09 Note Text: DEPARTMENT OF HOSPITAL MEDICINE CONSULT PROGRESS NOTE Hospital Medicine/Primary Attending: Arielle Ruiz DO NIGHT AND WEEKEND COVERAGE: After 7pm please page [phone] SUBJECTIVE: Pt seen and examined. Patient in bed no acute distress. Eating breakfast. No complaints today. Denies chest pain, palpations, orthopnea, shortness of breath, cough, fever, chills, nausea, vomiting, diarrhea, numbness, tingling, dizziness, polyuria, dysuria, hematuria, bruising, bleeding OBJECTIVE: PHYSICAL EXAM: BP 183/76 Pulse 52 Temp (Src) 97.4 (Axillary) Resp 18 Ht 5' 5" (1.65m) Wt 127 lb 6.8 oz (57.8kg) SpO2 98% BMI 21.20 kg/(m2). O2 Therapy: Room Air General - AANDOx3, NAD, Calm CV - RRR S1 S2, No M/R/G RESP - CTA B/L No wheezes, ronchi, rales ABD - soft, NT, ND +BS EXT - no gross joint deformity, no clubbing, cyanosis, edema NEURO - NIHSS: 1(a). Mental Status - LOC 0 = Alert and Attentive 1(b). LOC Questions 0 = Correct age and month 1(c). LOC-Commands 0 = Both 2. Gaze 1 = Partial gaze, not forced or total 3. Visual Whitaker 0 = Full 4. Facial Weakness 2 = Complete, lower 5(a). Left Arm 1 = Drift, but does not hit bed 5(b). Right Arm 0 = No drift 6(a). Left Leg 1 = Drift, but does not hit bed 6(b). Right Leg 0 = No drift 7. Ataxia 0 = Absent 8. Sensory 0 = Normal 9. Aphasia 1 = Mild to Moderate 10. Dysarthria 1 = Mild to Moderate 11. Neglect 1 = One Sensory Modality NIHSS Total (0-42): 8 MEDICATIONS: Current Facility-Administered Medications Medication Dose Route Frequency NaCl 0.9% iv flush bag 20 mL INTRAVENOUS PRN atorvastatin 80 mg tab(s) (LIPITOR) 80 mg ORAL AT BEDTIME pantoprazole DR 40 mg tab(s) (PROTONIX) 40 mg ORAL DAILY venlafaxine 75 mg tab(s) (EFFEXOR) 75 mg ORAL TID NaCl 0.9% iv infusion 100 mL/hr INTRAVENOUS CONTINUOUS ondansetron 4 mg tab(s) (ZOFRAN) 4 mg ORAL q 6 H PRN Or ondansetron (PF) 4 mg injection (ZOFRAN) 4 mg INTRAVENOUS q 6 H PRN acetaminophen 1,000 mg tab(s) (TYLENOL) 1,000 mg ORAL QID oxyCODONE IR 5 mg tab(s) (ROXICODONE) 5 mg ORAL q 4 H PRN morphine 2 mg injection 2 mg INTRAVENOUS q 4 H PRN ipratropium-albuterol 3 mL nebulizer solution (DUONEB) 3 mL INHALATION q 6 H PRN mirtazapine 7.5 mg (REMERON) 7.5 mg ORAL AT BEDTIME heparin 5,000 Units injection 5,000 Units SUBCUTANEOUS q 8 H aspirin, enteric coated 81 mg tab(s) 81 mg ORAL DAILY clopidogrel 75 mg tab(s) (PLAVIX) 75 mg ORAL DAILY DATA: Diagnostic tests reviewed for today's visit: CBC: Recent Labs 05/18/24 1142 WBC 7.63 RBC 3.41* HB 11.9* HCT 35.7* PLT 339 MCV 104.7* MCH 34.9* MPV 9.8 Coags: Recent Labs 05/18/24 0815 INR 1.0 APTT 31.9 BMP: Recent Labs 05/19/24 0528 NA 140 K 4.2 4.2 CHLOR 108* CO2 20* BUN 17 CREAT 1.06 GLUC 74 CMP: Recent Labs 05/19/24 0528 05/18/24 0814 NA 140 139 K 4.2 4.2 5.2* CHLOR 108* 103 CO2 20* 25 BUN 17 21 CREAT 1.06 1.40* GLUC 74 101* TPROT -- 7.4 CA 8.4* 9.9 TBILI -- 0.5 ALKPHOS -- 178* ALT -- 37 AST -- 38 ANION 12 11 Cardiac Enzymes: No results for input(s): "CK", "MB", "CKMB", "TROPT" in the last 24 hours. Liver Function, Amylase, Lipase: Recent Labs 05/18/24 0814 TPROT 7.4 ALB 3.9 ALT 37 AST 38 ALKPHOS 178* TBILI 0.5 LIPASE 27 MG/PHOS: No results for input(s): "MG", "P" in the last 24 hours. Renal Panel: Recent Labs 05/19/24 0528 CREAT 1.06 BUN 17 GLUC 74 CA 8.4* CHLOR 108* K 4.2 4.2 CO2 20* NA 140 Heme: No results for input(s): "RETICP", "ABSRETIC", "LD", "NESTOR", "FE", "TIBC","TRANSFERSAT" in the last 24 hours. No results found for: "UALBCR" Estimated Creatinine Clearance: 49.2 mL/min (based on SCr of 1.06 mg/dL). Assessment/Plan Patient Active Hospital Problem List: Multiple rib fractures involving first rib (05/18/2024) This is a 74-year-old male with a history of recent right MCA stroke, hypertension, dysphagia, CKD who presented from [facility] with fall. He is found to have rib fractures and admitted to trauma service. Stroke team called for concern of change in neuroexam however TNK was not recommended. Neurology evaluated and recommended blood pressure control 120-160 systolic and avoid hypotension. Blood pressure currently at goal. If he does become hypertensive consider resuming lisinopril at a lower dose of 5 mg daily Mechanical fall Left anterior rib fracture Per primary service Hypertension Notified by nursing that blood pressure elevated this morning Repeat blood pressure improved 135/65 Blood pressure goal 120-160, avoid hypotension If systolic remains elevated above 160 will start low-dose lisinopril 5 mg daily Currently bradycardic and will avoid metoprolol for now Recent right MCA stroke S/p TNK, t (more content not included)... [facility] 05-19-2024 Note Patient Outreach (AG ACM) JONATHON PERALES ([id number]) 1950 M [facility] Date Time Provider Department 05/19/24 FARIHA TURPIN [facility] During your visit today, we recorded the following information about you: Fariha Turpin RN 05/19/2024 3:19 PM Signed [facility] Transitional Care Management (TCM) Inpatient Patient Visit/Outreach Provider Action/FYI Plan SNF at discharge. Spouse lives in memory care, patient may stay at SNF fpc. Patient Admitted To [facility] on 05/18/24 Patient admitted for fall, stroke sx Contact Made with Patient at bedside Yes, room 5217-1 Patient identified by name and date of . Others Present at bedside No ,name NA relationship to patient NA, permission to include in bedside discussion NA Patient introduced to the transitional care management team; explained our purpose, mission, and provided hours of operation, M-F 8-4 PM, excluding holidays. We provided them with resources and our contact information. Resources: Primary Care Provider First Card, Transitional Care Management Card, eClarity Flyer, TCM RN business Card, yes Patient educated on importance of primary care provider follow up visit as well as specialty provider follow up visits as indicated. Scheduled PCP follow up appointment No Discharge plans appear to be other than Home or Home Health Care Date NA, Time NA, Does patient have any concerns or barriers to returning home? Yes Health leads screening tool questions: Do you often feel you lack companionship? Yes Do you ever need help reading or understanding hospital materials? No In the last 12 months, have you changed how you take medications to save money? No In the past 12 months, has lack of transportation kept you from medical appointments, work, or getting things you need like food, or supplies? No In the last 12 months, did you ever eat less than you felt you should because there wasn't enough money for food? No During the winter, do you anticipate having a problem paying your heating bill? No In the next 2 months, are you worried you might not have stable housing? No If needs identified: Would you like to receive assistance with any of these needs after discharge? No Resources/Referrals None Advanced Directives: Declined Living Will: Declined Meds to bed initiated No Educated patient on post discharge expectations, contingency management, and post-discharge programs available to them. Encouraged patient to refer to and read the hospital discharge summary again once they are home. HRTIC NA If Yes, Confirm demographics, where patient will reside at discharge. TCM RN to do referral upon discharge. We have your contact number as [phone] , is this the best number to contact you? Yes Address: [address] [place] [address] [address] [facility] , is this where you will be staying after discharge? Yes Do you give us permission to speak to anyone else if you are unavailable to speak to us? Yes - name Lindsay Perales , relationship daughter and contact number [phone] Fariha Turpin RN May 19, 2024 3:16 PM Allergies As of Date: 05/19/2024 Noted Allergy Reaction PERCOCET (OXYCODONE-ACETAMINOPHEN) 8 1 - Mental Status Change Comments: HALLUCINATIONS Date Reviewed: 05/18/2024 Reviewed by: Jared Almazan, JORGE - Fully Assessed Reason for Visit: Transition Of Care [4074] Cmt: Inpatient TCM visit Prescriptions as of 05/19/2024 - heparin sodium,porcine (HEPARIN, PORCINE,) 5,000 unit/mL (1 mL) crtg 1 mL by INJECTION(UNSPECIFIED PARENTERAL ROUTES) route three times a day. - Mirtazapine (REMERON) 7.5 mg tablet Take 7.5 mg by mouth daily at bedtime. - atorvastatin (LIPITOR) 80 mg tablet 1 tablet by ORAL/FEEDING TUBE route daily at bedtime. - venlafaxine (EFFEXOR) 75 mg tablet 1 tablet by ORAL/FEEDING TUBE route three times a day with meals. - clopidogrel (PLAVIX) 75 mg tablet Take 1 tablet by mouth once daily. - ezetimibe (ZETIA) 10 mg tablet Take 10 mg by mouth daily at bedtime. - lisinopril (ZESTRIL) 10 mg tablet Take 1 tablet by mouth once daily. - loratadine (CLARITIN) 10 mg tablet Take 1 tablet by mouth once daily. - metoprolol tartrate, short acting, (LOPRESSOR) 25 mg tablet Take 0.5 tablets by mouth two times a day. - pantoprazole DR (PROTONIX) 40 mg tablet Take 1 tablet by mouth once daily. - aspirin, enteric coated (ASPIRIN, ENTERIC COATED) 81 mg EC tablet Take 81 mg by mouth once daily. - cyanocobalamin (VITAMIN B-12) 1,000 mcg tab Take 1,000 mcg by mouth once daily. - cholecalciferol (VITAMIN D-3) 50 mcg (2,000 unit) tablet Take 2,000 Units by mouth once daily. - loratadine (CLARITIN) 10 mg tablet take one tablet by mouth once a day - fluticasone (FLONASE ALLERGY RELIEF) 50 mcg/actuation nasal spray Use 1 Valentines in each nostril once daily. - meclizine (ANTIVERT) 25 mg tab TAKE (more content not included)... [facility] 05-18-2024 Note HNO ID: [id number] Author: VIDA GOLD MD Service: ? Author Type: Physician Type: Progress Notes Filed: 05/18/2024 10:07 Note Text: TELESTROKE DOCUMENTATION Name: Jonathon Perales : 1950 Referring Site: [facility] Referring Provider: Obdulia Last Known Well (Date/Time): 05/18/24714 Neurologist Callback (Date/Time): 05/18/24 0837 Chief Complaint: left suded weakness HPI: 74 year old male,74-year-old male with recent right MCA infarct; right ICA stent few weeks ago-----is currently at a senior care, had a witnessed mechanical fall at 7:15 AM and hit his head. In the ED notable for left facial droop mild left-sided weakness and neglect. NIH stroke scale 6. Patient is compliant with Plavix/DVT prophylaxis dose of heparin Stroke Risk Factors Previous Ischemic Stroke BP: 143/102 NIHSS Telestroke Type - Patient location (ED or Inpatient): ED - Telephone Site Reported NIHSS: 6 Neurologist Performed Total Score: N/A Imaging CT Imaging reviewed, NO acute infarct/hemorrhage seen (Subacute/chronic areas of infarct involving right cerebral hemisphere as detailed above. Remote ischemic infarct of the left parietal-occipital lobe junction. Multiple remote lacunar infarcts of the left cerebellum.) CTA Imaging reviewed, NO large vessel occlusion or severe stenosis seen (A right distal common-proximal internal carotid artery stent which is patent without stenosis or occlusion.) Summary Stroke diagnosis uncertain - the risks of IV Thrombolysis outweigh the benefits of treatment evolving now chronic appearing rt MCA infarcts ; remote left parietal infarct ; Symptoms are recrudesence ; no LVO ; no tNK US carotids to assess stent patency ; neuro consult to follow ; BP : 120 - 160 mm hg ; avoid hypotension Potential Candidate for Endovascular Therapy: No - Negative for evidence of large vessel occlusion Disposition/Billing (Physician is not in the same physical location as the patient) The patient will remain at the referring institution for further evaluation and management I personally completed this evaluation as a staff physician: Yes Telephone Only: Minutes spent reviewing pertinent diagnostic data and discussing patient care with the referring physician: 33 More than 50 percent of the encounter was spent on coordinating care of the patient during a telestroke. Thank you for contacting the [facility]. I appreciate the opportunity for allowing me to participate in Jonathon Perales's care. Please feel free to contact me and/or the [facility] at any time if you have any further questions or need additional assistance. Vida Gold MD May 18, 2024 10:07 AM [facility] 05-18-2024 History of Present illness Narrative TELESTROKE DOCUMENTATION Name: Jonathon Perales : 1950 Referring Site: [facility] Referring Provider: Obdulia Last Known Well (Date/Time): 05/18/24 0715 Neurologist Callback (Date/Time): 05/18/24 0837 Chief Complaint: left suded weakness HPI: 74 year old male,74-year-old male with recent right MCA infarct; right ICA stent few weeks ago-----is currently at a senior care, had a witnessed mechanical fall at 7:15 AM and hit his head. In the ED notable for left facial droop mild left-sided weakness and neglect. NIH stroke scale 6. Patient is compliant with Plavix/DVT prophylaxis dose of heparin Stroke Risk Factors Previous Ischemic Stroke BP: 143/102 NIHSS Telestroke Type - Patient location (ED or Inpatient): ED - Telephone Site Reported NIHSS: 6 Neurologist Performed Total Score: N/A Imaging CT Imaging reviewed, NO acute infarct/hemorrhage seen (Subacute/chronic areas of infarct involving right cerebral hemisphere as detailed above. Remote ischemic infarct of the left parietal-occipital lobe junction. Multiple remote lacunar infarcts of the left cerebellum.) CTA Imaging reviewed, NO large vessel occlusion or severe stenosis seen (A right distal common-proximal internal carotid artery stent which is patent without stenosis or occlusion.) Summary Stroke diagnosis uncertain - the risks of IV Thrombolysis outweigh the benefits of treatment evolving now chronic appearing rt MCA infarcts ; remote left parietal infarct ; Symptoms are recrudesence ; no LVO ; no tNK US carotids to assess stent patency ; neuro consult to follow ; BP : 120 - 160 mm hg ; avoid hypotension Potential Candidate for Endovascular Therapy: No - Negative for evidence of large vessel occlusion Disposition/Billing (Physician is not in the same physical location as the patient) The patient will remain at the referring institution for further evaluation and management I personally completed this evaluation as a staff physician: Yes Telephone Only: Minutes spent reviewing pertinent diagnostic data and discussing patient care with the referring physician: 33 More than 50 percent of the encounter was spent on coordinating care of the patient during a telestroke. Thank you for contacting the [facility]. I appreciate the opportunity for allowing me to participate in Jonathon Perales's care. Please feel free to contact me and/or the [facility] at any time if you have any further questions or need additional assistance. Vida Gold MD May 18, 2024 10:07 AM documented in this encounter [facility] 05-18-2024 Note HNO ID: [id number] Author: MARIA ISABEL PISANO RN Service: ? Author Type: Registered Nurse Type: Progress Notes Filed: 05/18/2024 07:02 Note Text: TRANSITION CARE MANAGEMENT (TCM) DISCHARGE TO POST ACUTE FACILITY POST ACUTE TRANSFER SUMMARY: -Pt discharged from [facility] on 05/15/2024. -Post Acute Facility Admitted to [facility] -Admitted for: Cerebrovascular Accident Office PCC will follow at discharge. Maria Isabel Pisano RN May 18, 2024 [facility] 05-18-2024 History of Present illness Narrative TRANSITION CARE MANAGEMENT (TCM) DISCHARGE TO POST ACUTE FACILITY POST ACUTE TRANSFER SUMMARY: -Pt discharged from [facility] on 05/15/2024. -Post Acute Facility Admitted to [facility] -Admitted for: Cerebrovascular Accident Office PCC will follow at discharge. Maria Isabel Pisano RN May 18, 2024 documented in this encounter [facility] 05-18-2024 Note Patient Outreach (AG ACM) JONATHON PERALES ([id number]) 1950 M [facility] Date Time Provider Department 05/18/24 MARIA ISABEL PISANO [facility] During your visit today, we recorded the following information about you: Maria Isabel Pisano RN 05/18/2024 7:02 AM Signed TRANSITION CARE MANAGEMENT (TCM) DISCHARGE TO POST ACUTE FACILITY POST ACUTE TRANSFER SUMMARY: -Pt discharged from [facility] on 05/15/2024. -Post Acute Facility Admitted to [facility] -Admitted for: Cerebrovascular Accident Office PCC will follow at discharge. Maria Isabel Pisano RN May 18, 2024 Allergies As of Date: 05/18/2024 Noted Allergy Reaction PERCOCET (OXYCODONE-ACETAMINOPHEN) 8 1 - Mental Status Change Comments: HALLUCINATIONS Date Reviewed: 04/27/2024 Reviewed by: Citlalli Mead RN - Fully Assessed Reason for Visit: Transition Of Care [4074] Cmt: Discharged from [facility] to [facility] Prescriptions as of 05/18/2024 - atorvastatin (LIPITOR) 80 mg tablet 1 tablet by ORAL/FEEDING TUBE route daily at bedtime. - venlafaxine (EFFEXOR) 75 mg tablet 1 tablet by ORAL/FEEDING TUBE route three times a day with meals. - clopidogrel (PLAVIX) 75 mg tablet Take 1 tablet by mouth once daily. - ezetimibe (ZETIA) 10 mg tablet Take 10 mg by mouth daily at bedtime. - lisinopril (ZESTRIL) 10 mg tablet Take 1 tablet by mouth once daily. - loratadine (CLARITIN) 10 mg tablet Take 1 tablet by mouth once daily. - metoprolol tartrate, short acting, (LOPRESSOR) 25 mg tablet Take 0.5 tablets by mouth two times a day. - pantoprazole DR (PROTONIX) 40 mg tablet Take 1 tablet by mouth once daily. - aspirin, enteric coated (ASPIRIN, ENTERIC COATED) 81 mg EC tablet Take 81 mg by mouth once daily. - cyanocobalamin (VITAMIN B-12) 1,000 mcg tab Take 1,000 mcg by mouth once daily. - cholecalciferol (VITAMIN D-3) 50 mcg (2,000 unit) tablet Take 2,000 Units by mouth once daily. - loratadine (CLARITIN) 10 mg tablet take one tablet by mouth once a day - fluticasone (FLONASE ALLERGY RELIEF) 50 mcg/actuation nasal spray Use 1 Valentines in each nostril once daily. - meclizine (ANTIVERT) 25 mg tab TAKE ONE TABLET BY MOUTH EVERY 6 HOURS NEEDED FOR DIZZINESS - venlafaxine (EFFEXOR) 75 mg tablet Take 1 tablet in the morning and 2 tablets at bedtime. - carbidopa-levodopa (SINEMET 25-100) 25-100 mg per tablet Take 1 tablet by mouth three times daily. - metoprolol tartrate, short acting, (LOPRESSOR) 25 mg tablet Take 0.5 tablets by mouth twice daily. - ezetimibe (ZETIA) 10 mg tablet Take 1 tablet by mouth daily at bedtime. - pantoprazole DR (PROTONIX) 40 mg tablet Take 1 tablet by mouth once daily. - lisinopril (ZESTRIL) 10 mg tablet Take 1 tablet by mouth once daily. - buPROPion XL (WELLBUTRIN XL) 300 mg 24 hr tablet Take 1 tablet by mouth once daily at 6 am. - atorvastatin (LIPITOR) 80 mg tablet Take 1 tablet by mouth daily at bedtime. - ondansetron (ZOFRAN) 4 mg tablet TAKE 1 TO 2 TABLET BY MOUTH EVERY 8 HOURS IF NEEDED FOR NAUSEA - clopidogrel (PLAVIX) 75 mg tablet Take 1 tablet by mouth once daily. - acetaminophen (TYLENOL) 325 mg tablet Take 2 tablets by mouth every 6 hours as needed. - cholecalciferol (VITAMIN D3) 50 mcg (2,000 unit) tablet Take 2,000 Units by mouth once daily. - Cyanocobalamin 2,000 mcg TbER Take by mouth once daily. - aspirin, enteric coated (ASPIRIN, ENTERIC COATED) 81 mg EC tablet Take 81 mg by mouth once daily. Problem List As Of Date 05/18/2024 Noted Resolved Coronary artery disease involving little traverse reyna*12/18/2016 S/P AVR (aortic valve replacement) [Z95.2] 12/18/2016 Kidney stone [N20.0] 01/11/2017 Hematuria [R31.9] 01/11/2017 High cholesterol [E78.00] 01/11/2017 HTN (hypertension), benign [I10] 01/11/2017 02/12/2018 Closed stable burst fracture of eighth thoracic*01/11/2017 Lumbar compression fracture (HCC) [S32.000A] 01/11/2017 Vitamin D deficiency [E55.9] Vitamin B12 deficiency [E53.8] Seasonal allergic rhinitis [J30.2] HTN (hypertension) [I10] Recurrent major depressive disorder, in full re* CVA (cerebral vascular accident) (HCC) [I63.9] Cerebellar stroke (HCC) [I63.9] CAD (coronary artery disease) [I25.10] JAIRO (obstructive sleep apnea) [G47.33] LVH (left ventricular hypertrophy) [I51.7] Hyperlipidemia [E78.5] 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 [facility] 05-14-2024 Note HNO ID: [id number] Author: EDNA PEREZ RN Service: ? Author Type: Registered Nurse Type: Progress Notes Filed: 05/14/2024 10:40 Note Text: ACM HEAVEN RN Patient identified by name and date of . Reason for review or outreach: Chart Review [facility] Utilization REQUESTED ACTION/FYI: None Utilization in past 6 months: Not applicable ED DIAGNOSES/REASON(S) FOR ED USE: Not applicable OTHER FINDINGS/SUMMARY: Dr. Giorgio Fernandez/PCP is with [facility]. Patient Attributed To: [place]/[facility] Payer: Deidra BERMUDEZ Action Taken: Other: Patient is incorrectly attributed and payor will be notified for correction. Contact made with patient: No, Chart review only. Signature: Edna Perez RN [facility] 05-14-2024 History of Present illness Narrative ACM HEAVEN RN Patient identified by name and date of . Reason for review or outreach: Chart Review [facility] Utilization REQUESTED ACTION/FYI: None Utilization in past 6 months: Not applicable ED DIAGNOSES/REASON(S) FOR ED USE: Not applicable OTHER FINDINGS/SUMMARY: Dr. Giorgio Fernandez/PCP is with [facility]. Patient Attributed To: [place]/[facility] Payer: Deidra BERMUDEZ Action Taken: Other: Patient is incorrectly attributed and payor will be notified for correction. Contact made with patient: No, Chart review only. Signature: Edna Perez RN documented in this encounter [facility] 05-14-2024 Note Patient Outreach (AM [facility]) JONATHON PERALES ([id number]) 1950 M T Date Time Provider Department 05/14/24 EDNA PEREZ [facility] During your visit today, we recorded the following information about you: Edna Perez RN 05/14/2024 10:40 AM Signed ACM HEAVEN RN Patient identified by name and date of . Reason for review or outreach: Chart Review [facility] Utilization REQUESTED ACTION/FYI: None Utilization in past 6 months: Not applicable ED DIAGNOSES/REASON(S) FOR ED USE: Not applicable OTHER FINDINGS/SUMMARY: Dr. Giorgio Fernandez/PCP is with [facility]. Patient Attributed To: [place]/[facility] Payer: Renatoa LARA Action Taken: Other: Patient is incorrectly attributed and payor will be notified for correction. Contact made with patient: No, Chart review only. Signature: Edna Perez RN Allergies As of Date: 05/14/2024 Noted Allergy Reaction PERCOCET (OXYCODONE-ACETAMINOPHEN) 8 1 - Mental Status Change Comments: HALLUCINATIONS Date Reviewed: 04/27/2024 Reviewed by: Citlalli Mead RN - Fully Assessed Reason for Visit: ACM HEAVEN RN [5834] Cmt: ED Utilization Review per request of payor Prescriptions as of 05/14/2024 - atorvastatin (LIPITOR) 80 mg tablet 1 tablet by ORAL/FEEDING TUBE route daily at bedtime. - venlafaxine (EFFEXOR) 75 mg tablet 1 tablet by ORAL/FEEDING TUBE route three times a day with meals. - clopidogrel (PLAVIX) 75 mg tablet Take 1 tablet by mouth once daily. - ezetimibe (ZETIA) 10 mg tablet Take 10 mg by mouth daily at bedtime. - lisinopril (ZESTRIL) 10 mg tablet Take 1 tablet by mouth once daily. - loratadine (CLARITIN) 10 mg tablet Take 1 tablet by mouth once daily. - metoprolol tartrate, short acting, (LOPRESSOR) 25 mg tablet Take 0.5 tablets by mouth two times a day. - pantoprazole DR (PROTONIX) 40 mg tablet Take 1 tablet by mouth once daily. - aspirin, enteric coated (ASPIRIN, ENTERIC COATED) 81 mg EC tablet Take 81 mg by mouth once daily. - cyanocobalamin (VITAMIN B-12) 1,000 mcg tab Take 1,000 mcg by mouth once daily. - cholecalciferol (VITAMIN D-3) 50 mcg (2,000 unit) tablet Take 2,000 Units by mouth once daily. - loratadine (CLARITIN) 10 mg tablet take one tablet by mouth once a day - fluticasone (FLONASE ALLERGY RELIEF) 50 mcg/actuation nasal spray Use 1 Valentines in each nostril once daily. - meclizine (ANTIVERT) 25 mg tab TAKE ONE TABLET BY MOUTH EVERY 6 HOURS NEEDED FOR DIZZINESS - venlafaxine (EFFEXOR) 75 mg tablet Take 1 tablet in the morning and 2 tablets at bedtime. - carbidopa-levodopa (SINEMET 25-100) 25-100 mg per tablet Take 1 tablet by mouth three times daily. - metoprolol tartrate, short acting, (LOPRESSOR) 25 mg tablet Take 0.5 tablets by mouth twice daily. - ezetimibe (ZETIA) 10 mg tablet Take 1 tablet by mouth daily at bedtime. - pantoprazole DR (PROTONIX) 40 mg tablet Take 1 tablet by mouth once daily. - lisinopril (ZESTRIL) 10 mg tablet Take 1 tablet by mouth once daily. - buPROPion XL (WELLBUTRIN XL) 300 mg 24 hr tablet Take 1 tablet by mouth once daily at 6 am. - atorvastatin (LIPITOR) 80 mg tablet Take 1 tablet by mouth daily at bedtime. - ondansetron (ZOFRAN) 4 mg tablet TAKE 1 TO 2 TABLET BY MOUTH EVERY 8 HOURS IF NEEDED FOR NAUSEA - clopidogrel (PLAVIX) 75 mg tablet Take 1 tablet by mouth once daily. - acetaminophen (TYLENOL) 325 mg tablet Take 2 tablets by mouth every 6 hours as needed. - cholecalciferol (VITAMIN D3) 50 mcg (2,000 unit) tablet Take 2,000 Units by mouth once daily. - Cyanocobalamin 2,000 mcg TbER Take by mouth once daily. - aspirin, enteric coated (ASPIRIN, ENTERIC COATED) 81 mg EC tablet Take 81 mg by mouth once daily. Problem List As Of Date 05/14/2024 Noted Resolved Coronary artery disease involving little traverse reyna*12/18/2016 S/P AVR (aortic valve replacement) [Z95.2] 12/18/2016 Kidney stone [N20.0] 01/11/2017 Hematuria [R31.9] 01/11/2017 High cholesterol [E78.00] 01/11/2017 HTN (hypertension), benign [I10] 01/11/2017 02/12/2018 Closed stable burst fracture of eighth thoracic*01/11/2017 Lumbar compression fracture (HCC) [S32.000A] 01/11/2017 Vitamin D deficiency [E55.9] Vitamin B12 deficiency [E53.8] Seasonal allergic rhinitis [J30.2] HTN (hypertension) [I10] Recurrent major depressive disorder, in full re* CVA (cerebral vascular accident) (HCC) [I63.9] Cerebellar stroke (HCC) [I63.9] CAD (coronary artery disease) [I25.10] JAIRO (obstructive sleep apnea) [G47.33] LVH (left ventricular hypertrophy) [I51.7] Hyperlipidemia [E78.5] 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 (more content not included)... [facility] 05-01-2024 History of Present illness Narrative TRANSITION CARE MANAGEMENT (TCM) DISCHARGE TO POST ACUTE FACILITY POST ACUTE TRANSFER SUMMARY: -Pt discharged from [facility] on 04/30/2024. -Post Acute Facility Admitted to [facility] -Admitted for: Acute ischemic right MCA stroke (HCC) Office PCC will follow at discharge. Maria Isabel Pisano RN May 01, 2024 documented in this encounter [facility] 04-28-2024 Note HNO ID: [id number] Author: MILTON BELLA MD Service: Hospital Medicine Author Type: Physician Type: Progress Notes Filed: 04/28/2024 14:46 Note Text: DEPARTMENT OF HOSPITAL MEDICINE Hospital Medicine/Primary Attending: Milton Bella MD NIGHT AND WEEKEND COVERAGE: After 7pm please page [phone] Subjective: Seen and examined at bedside. Patient is resting in bed. Denies having any complaints. No family at bedside. Called and spoke to Linsday over the phone and updated regarding the plan. Patient's cortrack was removed this morning, he is tolerating oral intake. MEDICATIONS: Current Facility-Administered Medications Medication Dose Route Frequency NaCl 0.9% iv flush bag 20 mL INTRAVENOUS PRN atorvastatin 80 mg tab(s) (LIPITOR) 80 mg ORAL/FEEDING TUBE AT BEDTIME acetaminophen 650 mg tab(s) (TYLENOL) 650 mg ORAL/FEEDING TUBE q 4 H PRN ondansetron (PF) 4 mg injection (ZOFRAN) 4 mg INTRAVENOUS q 6 H PRN pantoprazole 40 mg oral liquid (PROTONIX) 40 mg ORAL/FEEDING TUBE DAILY (6 AM) clopidogrel 75 mg tab(s) (PLAVIX) 75 mg ORAL/FEEDING TUBE DAILY aspirin 81 mg chewable tab(s) 81 mg ORAL/FEEDING TUBE DAILY venlafaxine 75 mg tab(s) (EFFEXOR) 75 mg ORAL/FEEDING TUBE TID w MEALS heparin 5,000 Units injection 5,000 Units SUBCUTANEOUS q 8 H senna-docusate 8.6-50 mg 2 tablet (SENNA-S) 2 tablet ORAL/FEEDING TUBE BID melatonin 3 mg tab(s) 3 mg ORAL/FEEDING TUBE DAILY (8 PM) polyethylene glycol 3350 17 g packet 17 g ORAL DAILY PRN dextrose 15 gram/32 mL 15 g (TRUEPLUS) 15 g CORPAK PRN Or glucagon 1 mg injection 1 mg INTRAMUSCULAR PRN Or dextrose 10% iv bolus 12.5 g INTRAVENOUS PRN lisinopril 10 mg tab(s) (ZESTRIL) 10 mg ORAL DAILY metoprolol tartrate (short acting) 12.5 mg tab(s) (LOPRESSOR) 12.5 mg ORAL q 12 H ezetimibe 10 mg tab(s) (ZETIA) 10 mg ORAL DAILY DATA: Diagnostic tests reviewed for today's visit: Lab data: CBC: Recent Labs 04/28/2435804/23/24 0533 04/22/24 0430 WBC 13.12* 10.73 9.80 HB 15.6 13.3 12.8* HCT 45.4 38.7* 37.5* PLT 554* 444* 380 MCV 101.1* 101.3* 101.9* RDWCV 12.2 11.7 11.9 COAG: No results for input(s): "APTT", "INR" in the last 168 hours. BMP: Recent Labs 04/28/2435804/27/2454204/26/24 0551 04/25/24 0446 04/24/24 0501 04/23/24 0533 04/22/24 0430 GLUC 100* 134* 129* 104* 134* 122* 92 NA 140 135* 136 137 136 135* 135* K 4.8 4.6 4.7 4.5 4.4 4.4 4.3 CHLOR 101 97* 98 98 102 99 99 CO2 26 27 26 27 23 25 23 ANION 13 11 12 12 11 11 13 BUN 45* 33* 34* 37* 38* 39* 35* CREAT 1.36* 1.04 1.05 1.05 0.98 1.03 1.03 CHEM: Recent Labs 04/28/2435804/27/24 0543 04/26/24 0551 04/25/24 0446 04/24/24 0501 04/23/24 0533 04/22/24 0430 CA 10.7* 10.3* 10.3* 10.6* 9.8 10.1 9.8 MG 2.8* -- -- -- -- -- -- HEPATIC: No results for input(s): "ALKPHOS", "ALT", "AST", "TBILI", "LIPASE" in the last 168 hours. URINALYSIS: No results for input(s): "PH", "SPGR", "UGLUC", "UBILI", "UKET", "UHB", "UPROT", "UROBIL", "UWBC", "SSA" in the last 168 hours. Invalid input(s): "NITR" CARDIAC: No results for input(s): "PBNP" in the last 168 hours. Problem List Acute ischemic right MCA stroke (HCC) (POA: Yes) On mechanically assisted ventilation (HCC) (POA: No) Left hemiplegia (HCC) (POA: Yes) Facial droop due to acute cerebrovascular accident (CVA) (HCC) (HCC) (POA: Yes) Aphasia (POA: Yes) Primary hypertension (POA: Yes) Mixed hyperlipidemia (POA: Yes) History of aortic valve replacement (POA: Yes) JAIRO (obstructive sleep apnea) (POA: Yes) Acute respiratory failure (HCC) (POA: No) At risk for delirium (POA: Clinically Undetermined) PHYSICAL EXAM: BP 115/70 Pulse 62 Temp (Src) 97.4 (Oral) Resp 16 Ht 5' 7" (1.70m) Wt 151 lb 3.8 oz (68.6kg) SpO2 95% BMI 23.68 kg/(m2). O2 Therapy: Room Air Constitutional - Vitals as above, NAD Respiratory- Clear to auscultate both sides. No crackles, wheezes or rales CVS- RRR, no murmur/gallop/rub, pulse 2+ GI- NTND, bowel sounds normally heard Neuro- left facial droop, LUE weakness, LLE 4/5, diminished sensation on left, right gaze deviation HOSPITAL COURSE: 73 yo male with pmh CVA, CAD, aortic valve replacement, HTN, HLD, CKD, and JAIRO who presents with sudden onset aphasia and left sided weakness while in the hospital visiting his . iNIHSS 23. CT early ischemia in R insula. 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 TNK given at 2158. Pt s/p EVT tici 3 with angioplasty and stenting of the right ICA-CCA by Dr Cantor. Remained intubated and on aggrastat gtt post procedure. CUS with partial re-occlusion of R MCA stent. He was extubated 04/20 and transferred to [facility] 04/21. Failed swallow eval and MBSS initially, and was started on Corpak and tube feeds. Repeat ST eval and MBSS done on 04/27 and recommending pureed diet with nectar thick liquids and meds crushed in puree. Diet advanced and Corpak removed. PT OT recommending acute rehab, patient is pending p (more content not included)... [facility] 04-27-2024 Note HNO ID: [id number] Author: MILTON BELLA MD Service: Hospital Medicine Author Type: Physician Type: Progress Notes Filed: 04/27/2024 15:08 Note Text: DEPARTMENT OF HOSPITAL MEDICINE Hospital Medicine/Primary Attending: Milton Bella MD NIGHT AND WEEKEND COVERAGE: After 7pm please page [phone] Subjective: Seen and examined at bedside. Patient was resting in bed, restraints removed. Denies having any complaints. No family at bedside. Called and spoke to Lindsay over the phone and updated regarding the plan. MEDICATIONS: Current Facility-Administered Medications Medication Dose Route Frequency NaCl 0.9% iv flush bag 20 mL INTRAVENOUS PRN atorvastatin 80 mg tab(s) (LIPITOR) 80 mg ORAL/FEEDING TUBE AT BEDTIME acetaminophen 650 mg tab(s) (TYLENOL) 650 mg ORAL/FEEDING TUBE q 4 H PRN ondansetron (PF) 4 mg injection (ZOFRAN) 4 mg INTRAVENOUS q 6 H PRN pantoprazole 40 mg oral liquid (PROTONIX) 40 mg ORAL/FEEDING TUBE DAILY (6 AM) clopidogrel 75 mg tab(s) (PLAVIX) 75 mg ORAL/FEEDING TUBE DAILY aspirin 81 mg chewable tab(s) 81 mg ORAL/FEEDING TUBE DAILY venlafaxine 75 mg tab(s) (EFFEXOR) 75 mg ORAL/FEEDING TUBE TID w MEALS heparin 5,000 Units injection 5,000 Units SUBCUTANEOUS q 8 H senna-docusate 8.6-50 mg 2 tablet (SENNA-S) 2 tablet ORAL/FEEDING TUBE BID melatonin 3 mg tab(s) 3 mg ORAL/FEEDING TUBE DAILY (8 PM) polyethylene glycol 3350 17 g packet 17 g ORAL DAILY PRN dextrose 15 gram/32 mL 15 g (TRUEPLUS) 15 g CORPAK PRN Or glucagon 1 mg injection 1 mg INTRAMUSCULAR PRN Or dextrose 10% iv bolus 12.5 g INTRAVENOUS PRN DATA: Diagnostic tests reviewed for today's visit: Lab data: CBC: Recent Labs 04/23/24 0533 04/22/24 04304/21/24 041 WBC 10.73 9.80 10.81 HB 13.3 12.8* 11.9* HCT 38.7* 37.5* 35.0* PLT 444* 380 317 MCV 101.3* 101.9* 101.4* RDWCV 11.7 11.9 11.9 COAG: No results for input(s): "APTT", "INR" in the last 168 hours. BMP: Recent Labs 04/27/24 0543 04/26/24 0551 04/25/24 0446 04/24/24 0501 04/23/24 0533 04/22/24 0430 04/21/24 0413 GLUC 134* 129* 104* 134* 122* 92 78 NA 135* 136 137 136 135* 135* 134* K 4.6 4.7 4.5 4.4 4.4 4.3 4.5 CHLOR 97* 98 98 102 99 99 97 CO2 27 26 27 23 25 23 26 ANION 11 12 12 11 11 13 11 BUN 33* 34* 37* 38* 39* 35* 31* CREAT 1.04 1.05 1.05 0.98 1.03 1.03 1.09 CHEM: Recent Labs 04/27/24 0543 04/26/24 0551 04/25/24 0446 04/24/24 0501 04/23/24 0533 04/22/24 0430 04/21/24 0413 CA 10.3* 10.3* 10.6* 9.8 10.1 9.8 9.4 MG -- -- -- -- -- -- 2.3 HEPATIC: No results for input(s): "ALKPHOS", "ALT", "AST", "TBILI", "LIPASE" in the last 168 hours. URINALYSIS: No results for input(s): "PH", "SPGR", "UGLUC", "UBILI", "UKET", "UHB", "UPROT", "UROBIL", "UWBC", "SSA" in the last 168 hours. Invalid input(s): "NITR" CARDIAC: No results for input(s): "PBNP" in the last 168 hours. Problem List Acute ischemic right MCA stroke (HCC) (POA: Yes) On mechanically assisted ventilation (HCC) (POA: No) Left hemiplegia (HCC) (POA: Yes) Facial droop due to acute cerebrovascular accident (CVA) (HCC) (HCC) (POA: Yes) Aphasia (POA: Yes) Primary hypertension (POA: Yes) Mixed hyperlipidemia (POA: Yes) History of aortic valve replacement (POA: Yes) JAIRO (obstructive sleep apnea) (POA: Yes) Acute respiratory failure (HCC) (POA: No) At risk for delirium (POA: Clinically Undetermined) PHYSICAL EXAM: BP 162/88 Pulse 68 Temp (Src) 97.3 (Oral) Resp 16 Ht 5' 7" (1.70m) Wt 151 lb 3.8 oz (68.6kg) SpO2 96% BMI 23.68 kg/(m2). O2 Therapy: Room Air Constitutional - Vitals as above, NAD Respiratory- Clear to auscultate both sides. No crackles, wheezes or rales CVS- RRR, no murmur/gallop/rub, pulse 2+ GI- NTND, bowel sounds normally heard Neuro- left facial droop, LUE weakness, LLE 4/5, diminished sensation on left, right gaze deviation HOSPITAL COURSE: 73 yo male with pmh CVA, CAD, aortic valve replacement, HTN, HLD, CKD, and JAIRO who presents with sudden onset aphasia and left sided weakness while in the hospital visiting his . iNIHSS 23. CT early ischemia in R insula. 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 TNK given at 2158. Pt s/p EVT tici 3 with angioplasty and stenting of the right ICA-CCA by Dr Cantor. Remained intubated and on aggrastat gtt post procedure. CUS with partial re-occlusion of R MCA stent. He was extubated 04/20 and transferred to [facility] 04/21. Failed swallow eval and MBSS, now with Corpak and tube feeds. #acute right MCA stroke -On stroke protocol, monitor neurochecks, monitor on telemetry -Continue DAPT, Lipitor 80 mg daily -Neurology following, appreciate input -PT OT ST consulted, recommending acute rehab #Hypertension, hyperlipidemia -On labetalol as needed, statin. Resumed on home metoprolol, lisinopril and Zetia. -Monitor vitals and adjust accordingly #Acute hypoxic respiratory failure -S/p extubated on 04/20, now on room air, monitor respiratory statu (more content not included)... [facility] 04-26-2024 Note HNO ID: [id number] Author: MILTON BELLA MD Service: Hospital Medicine Author Type: Physician Type: Progress Notes Filed: 04/26/2024 14:27 Note Text: DEPARTMENT OF HOSPITAL MEDICINE Hospital Medicine/Primary Attending: Milton Bella MD NIGHT AND WEEKEND COVERAGE: After 7pm please page [phone] Subjective: Seen and examined at bedside. Patient was resting in bed, restraints in place as pt tried to pull cortrak and trying to get out of bed. Denies having any complaints. NO family at bedside. MEDICATIONS: Current Facility-Administered Medications Medication Dose Route Frequency NaCl 0.9% iv flush bag 20 mL INTRAVENOUS PRN atorvastatin 80 mg tab(s) (LIPITOR) 80 mg ORAL/FEEDING TUBE AT BEDTIME acetaminophen 650 mg tab(s) (TYLENOL) 650 mg ORAL/FEEDING TUBE q 4 H PRN ondansetron (PF) 4 mg injection (ZOFRAN) 4 mg INTRAVENOUS q 6 H PRN pantoprazole 40 mg oral liquid (PROTONIX) 40 mg ORAL/FEEDING TUBE DAILY (6 AM) clopidogrel 75 mg tab(s) (PLAVIX) 75 mg ORAL/FEEDING TUBE DAILY aspirin 81 mg chewable tab(s) 81 mg ORAL/FEEDING TUBE DAILY venlafaxine 75 mg tab(s) (EFFEXOR) 75 mg ORAL/FEEDING TUBE TID w MEALS heparin 5,000 Units injection 5,000 Units SUBCUTANEOUS q 8 H senna-docusate 8.6-50 mg 2 tablet (SENNA-S) 2 tablet ORAL/FEEDING TUBE BID melatonin 3 mg tab(s) 3 mg ORAL/FEEDING TUBE DAILY (8 PM) polyethylene glycol 3350 17 g packet 17 g ORAL DAILY PRN dextrose 15 gram/32 mL 15 g (TRUEPLUS) 15 g CORPAK PRN Or glucagon 1 mg injection 1 mg INTRAMUSCULAR PRN Or dextrose 10% iv bolus 12.5 g INTRAVENOUS PRN DATA: Diagnostic tests reviewed for today's visit: Lab data: CBC: Recent Labs 04/23/24 0533 04/22/24 0430 04/21/24 04104/20/24 0344 WBC 10.73 9.80 10.81 7.59 HB 13.3 12.8* 11.9* 10.8* HCT 38.7* 37.5* 35.0* 31.2* PLT 444* 380 317 223 MCV 101.3* 101.9* 101.4* 102.3* RDWCV 11.7 11.9 11.9 12.0 COAG: No results for input(s): "APTT", "INR" in the last 168 hours. BMP: Recent Labs 04/26/24 0551 04/25/24 0446 04/24/24 0501 04/23/24 0533 04/22/24 0430 04/21/24 04104/20/24 0344 GLUC 129* 104* 134* 122* 92 78 126* NA 136 137 136 135* 135* 134* 135* K 4.7 4.5 4.4 4.4 4.3 4.5 4.4 CHLOR 98 98 102 99 99 97 99 CO2 26 27 23 25 23 26 26 ANION 12 12 11 11 13 11 10 BUN 34* 37* 38* 39* 35* 31* 30* CREAT 1.05 1.05 0.98 1.03 1.03 1.09 0.99 CHEM: Recent Labs 04/26/24 0551 04/25/24 0446 04/24/24 0501 04/23/24 0533 04/22/24 0430 04/21/24 0413 04/20/24 0344 CA 10.3* 10.6* 9.8 10.1 9.8 9.4 9.1 MG -- -- -- -- -- 2.3 2.3 HEPATIC: No results for input(s): "ALKPHOS", "ALT", "AST", "TBILI", "LIPASE" in the last 168 hours. URINALYSIS: No results for input(s): "PH", "SPGR", "UGLUC", "UBILI", "UKET", "UHB", "UPROT", "UROBIL", "UWBC", "SSA" in the last 168 hours. Invalid input(s): "NITR" CARDIAC: No results for input(s): "PBNP" in the last 168 hours. Problem List Acute ischemic right MCA stroke (HCC) (POA: Yes) On mechanically assisted ventilation (HCC) (POA: No) Left hemiplegia (HCC) (POA: Yes) Facial droop due to acute cerebrovascular accident (CVA) (HCC) (HCC) (POA: Yes) Aphasia (POA: Yes) Primary hypertension (POA: Yes) Mixed hyperlipidemia (POA: Yes) History of aortic valve replacement (POA: Yes) JAIRO (obstructive sleep apnea) (POA: Yes) Acute respiratory failure (HCC) (POA: No) At risk for delirium (POA: Clinically Undetermined) PHYSICAL EXAM: BP 122/74 Pulse 67 Temp (Src) 97.8 (Oral) Resp 18 Ht 5' 7" (1.70m) Wt 151 lb 3.8 oz (68.6kg) SpO2 95% BMI 23.68 kg/(m2). O2 Therapy: Room Air Constitutional - Vitals as above, NAD Respiratory- Clear to auscultate both sides. No crackles, wheezes or rales CVS- RRR, no murmur/gallop/rub, pulse 2+ GI- NTND, bowel sounds normally heard Neuro- left facial droop, LUE weakness, LLE 4/5, diminished sensation on left, right gaze deviation, confused HOSPITAL COURSE: 73 yo male with pmh CVA, CAD, aortic valve replacement, HTN, HLD, CKD, and JAIRO who presents with sudden onset aphasia and left sided weakness while in the hospital visiting his . iNIHSS 23. CT early ischemia in R insula. 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 TNK given at 2158. Pt s/p EVT tici 3 with angioplasty and stenting of the right ICA-CCA by Dr Cantor. Remained intubated and on aggrastat gtt post procedure. CUS with partial re-occlusion of R MCA stent. He was extubated 04/20 and transferred to [facility] 04/21. Failed swallow eval and MBSS, now with Corpak and tube feeds. #acute right MCA stroke -On stroke protocol, monitor neurochecks, monitor on telemetry -Continue DAPT, Lipitor 80 mg daily -Neurology following, appreciate input -PT OT ST consulted, cortrak in place, recommending acute rehab #Hypertension, hyperlipidemia -On labetalol as needed, statin. Monitor vitals and adjust accordingly #Acute hypoxic respiratory failure -S/p extubated on 04/20, now on room air, monitor respiratory s (more content not included)... [facility] 04-26-2024 Note HNO ID: [id number] Author: NOTE, INTERFACE, ? Service: ? Author Type: ? Type: Progress Notes Filed: 04/26/2024 02:42 Note Text: Epic Scheduled Downtime: 04/26/2024 1:00:00 AM to 04/26/2024 2:26:00 AM [facility] 04-25-2024 Note HNO ID: [id number] Author: MILTON BELLA MD Service: Hospital Medicine Author Type: Physician Type: Progress Notes Filed: 04/25/2024 12:55 Note Text: DEPARTMENT OF HOSPITAL MEDICINE Hospital Medicine/Primary Attending: Milton Bella MD NIGHT AND WEEKEND COVERAGE: After 7pm please page [phone] Subjective: Seen and examined at bedside. Patient was resting in bed, restraints in place as pt tried to pull cortrak and trying to get out of bed. Denies having any complaints. Patient failed swallow eval yesterday with speech therapy, plan is to be reevaluated with ST tomorrow. MEDICATIONS: Current Facility-Administered Medications Medication Dose Route Frequency NaCl 0.9% iv flush bag 20 mL INTRAVENOUS PRN atorvastatin 80 mg tab(s) (LIPITOR) 80 mg ORAL/FEEDING TUBE AT BEDTIME acetaminophen 650 mg tab(s) (TYLENOL) 650 mg ORAL/FEEDING TUBE q 4 H PRN ondansetron (PF) 4 mg injection (ZOFRAN) 4 mg INTRAVENOUS q 6 H PRN pantoprazole 40 mg oral liquid (PROTONIX) 40 mg ORAL/FEEDING TUBE DAILY (6 AM) clopidogrel 75 mg tab(s) (PLAVIX) 75 mg ORAL/FEEDING TUBE DAILY aspirin 81 mg chewable tab(s) 81 mg ORAL/FEEDING TUBE DAILY venlafaxine 75 mg tab(s) (EFFEXOR) 75 mg ORAL/FEEDING TUBE TID w MEALS heparin 5,000 Units injection 5,000 Units SUBCUTANEOUS q 8 H senna-docusate 8.6-50 mg 2 tablet (SENNA-S) 2 tablet ORAL/FEEDING TUBE BID melatonin 3 mg tab(s) 3 mg ORAL/FEEDING TUBE DAILY (8 PM) polyethylene glycol 3350 17 g packet 17 g ORAL DAILY PRN dextrose 15 gram/32 mL 15 g (TRUEPLUS) 15 g CORPAK PRN Or glucagon 1 mg injection 1 mg INTRAMUSCULAR PRN Or dextrose 10% iv bolus 12.5 g INTRAVENOUS PRN DATA: Diagnostic tests reviewed for today's visit: Lab data: CBC: Recent Labs 04/23/24 0533 04/22/24 0430 04/21/24 0413 04/20/24 0344 04/19/24 0342 WBC 10.73 9.80 10.81 7.59 7.80 HB 13.3 12.8* 11.9* 10.8* 10.5* HCT 38.7* 37.5* 35.0* 31.2* 30.9* PLT 444* 380 317 223 187 MCV 101.3* 101.9* 101.4* 102.3* 102.3* RDWCV 11.7 11.9 11.9 12.0 12.2 COAG: No results for input(s): "APTT", "INR" in the last 168 hours. BMP: Recent Labs 04/25/24 0446 04/24/24 0501 04/23/24 0533 04/22/24 0430 04/21/24 0413 04/20/24 0344 04/19/24 0342 GLUC 104* 134* 122* 92 78 126* 125* NA 137 136 135* 135* 134* 135* 137 K 4.5 4.4 4.4 4.3 4.5 4.4 4.2 CHLOR 98 102 99 99 97 99 101 CO2 27 23 25 23 26 26 25 ANION 12 11 11 13 11 10 11 BUN 37* 38* 39* 35* 31* 30* 24 CREAT 1.05 0.98 1.03 1.03 1.09 0.99 0.94 CHEM: Recent Labs 04/25/24 0446 04/24/24 0501 04/23/24 0533 04/22/24 0430 04/21/24 0413 04/20/24 0344 04/19/24 0342 CA 10.6* 9.8 10.1 9.8 9.4 9.1 9.1 MG -- -- -- -- 2.3 2.3 2.1 HEPATIC: No results for input(s): "ALKPHOS", "ALT", "AST", "TBILI", "LIPASE" in the last 168 hours. URINALYSIS: No results for input(s): "PH", "SPGR", "UGLUC", "UBILI", "UKET", "UHB", "UPROT", "UROBIL", "UWBC", "SSA" in the last 168 hours. Invalid input(s): "NITR" CARDIAC: No results for input(s): "PBNP" in the last 168 hours. Problem List Acute ischemic right MCA stroke (HCC) (POA: Yes) On mechanically assisted ventilation (HCC) (POA: No) Left hemiplegia (HCC) (POA: Yes) Facial droop due to acute cerebrovascular accident (CVA) (HCC) (HCC) (POA: Yes) Aphasia (POA: Yes) Primary hypertension (POA: Yes) Mixed hyperlipidemia (POA: Yes) History of aortic valve replacement (POA: Yes) JAIRO (obstructive sleep apnea) (POA: Yes) Acute respiratory failure (HCC) (POA: No) At risk for delirium (POA: Clinically Undetermined) PHYSICAL EXAM: BP 131/76 Pulse 68 Temp (Src) 98.1 (Axillary) Resp 22 Ht 5' 7" (1.70m) Wt 151 lb 3.8 oz (68.6kg) SpO2 99% BMI 23.68 kg/(m2). O2 Therapy: Room Air Constitutional - Vitals as above, NAD Respiratory- Clear to auscultate both sides. No crackles, wheezes or rales CVS- RRR, no murmur/gallop/rub, pulse 2+ GI- NTND, bowel sounds normally heard Neuro- left facial droop, LUE weakness, LLE 4/5, diminished sensation on left, right gaze deviation, confused HOSPITAL COURSE: 73 yo male with pmh CVA, CAD, aortic valve replacement, HTN, HLD, CKD, and JAIRO who presents with sudden onset aphasia and left sided weakness while in the hospital visiting his . iNIHSS 23. CT early ischemia in R insula. 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 TNK given at 2158. Pt s/p EVT tici 3 with angioplasty and stenting of the right ICA-CCA by Dr Cantor. Remained intubated and on aggrastat gtt post procedure. CUS with partial re-occlusion of R MCA stent. He was extubated 04/20 and transferred to [facility] 04/21. Failed swallow eval and MBSS, now with Corpak and tube feeds. #acute right MCA stroke -On stroke protocol, monitor neurochecks, monitor on telemetry -Continue DAPT, Lipitor 80 mg daily -Neurology following, appreciate input -PT OT ST consulted, cortrak in place, recommending acute rehab #Hypertension, hyperlipidemia -On labetalol as needed, statin. Mon (more content not included)... [facility] 04-25-2024 Note HNO ID: [id number] Author: NOTE, INTERFACE, ? Service: ? Author Type: ? Type: Progress Notes Filed: 04/25/2024 03:29 Note Text: Epic Scheduled Downtime: 04/25/2024 1:00:00 AM to 04/25/2024 3:02:00 AM [facility] 04-24-2024 Note HNO ID: [id number] Author: MILTON BELLA MD Service: Hospital Medicine Author Type: Physician Type: Progress Notes Filed: 04/24/2024 13:52 Note Text: DEPARTMENT OF HOSPITAL MEDICINE Hospital Medicine/Primary Attending: Milton Bella MD NIGHT AND WEEKEND COVERAGE: After 7pm please page [phone] Subjective: Seen and examined at bedside. Patient was resting in bed, restraints in place as pt tried to pull cortrak and trying to get out of bed. Denies having any complaints. Patient failed swallow eval again with speech therapy. MEDICATIONS: Current Facility-Administered Medications Medication Dose Route Frequency NaCl 0.9% iv flush bag 20 mL INTRAVENOUS PRN atorvastatin 80 mg tab(s) (LIPITOR) 80 mg ORAL/FEEDING TUBE AT BEDTIME acetaminophen 650 mg tab(s) (TYLENOL) 650 mg ORAL/FEEDING TUBE q 4 H PRN ondansetron (PF) 4 mg injection (ZOFRAN) 4 mg INTRAVENOUS q 6 H PRN pantoprazole 40 mg oral liquid (PROTONIX) 40 mg ORAL/FEEDING TUBE DAILY (6 AM) clopidogrel 75 mg tab(s) (PLAVIX) 75 mg ORAL/FEEDING TUBE DAILY aspirin 81 mg chewable tab(s) 81 mg ORAL/FEEDING TUBE DAILY venlafaxine 75 mg tab(s) (EFFEXOR) 75 mg ORAL/FEEDING TUBE TID w MEALS heparin 5,000 Units injection 5,000 Units SUBCUTANEOUS q 8 H senna-docusate 8.6-50 mg 2 tablet (SENNA-S) 2 tablet ORAL/FEEDING TUBE BID melatonin 3 mg tab(s) 3 mg ORAL/FEEDING TUBE DAILY (8 PM) polyethylene glycol 3350 17 g packet 17 g ORAL DAILY PRN DATA: Diagnostic tests reviewed for today's visit: Lab data: CBC: Recent Labs 04/23/24 0533 04/22/24 0430 04/21/24 0413 04/20/24 0344 04/19/24 0342 04/18/24 0346 WBC 10.73 9.80 10.81 7.59 7.80 7.75 HB 13.3 12.8* 11.9* 10.8* 10.5* 10.3* HCT 38.7* 37.5* 35.0* 31.2* 30.9* 30.5* PLT 444* 380 317 223 187 154 MCV 101.3* 101.9* 101.4* 102.3* 102.3* 102.7* RDWCV 11.7 11.9 11.9 12.0 12.2 12.1 COAG: No results for input(s): "APTT", "INR" in the last 168 hours. BMP: Recent Labs 04/24/24 0501 04/23/24 0533 04/22/24 0430 04/21/24 0413 04/20/24 0344 04/19/24 0342 04/18/24 0346 GLUC 134* 122* 92 78 126* 125* 128* NA 136 135* 135* 134* 135* 137 136 K 4.4 4.4 4.3 4.5 4.4 4.2 4.0 CHLOR 102 99 99 97 99 101 105 CO2 23 25 23 26 26 25 22 ANION 11 11 13 11 10 11 9 BUN 38* 39* 35* 31* 30* 24 20 CREAT 0.98 1.03 1.03 1.09 0.99 0.94 0.94 CHEM: Recent Labs 04/24/24 0501 04/23/24 0533 04/22/24 0430 04/21/24 0413 04/20/24 0344 04/19/24 0342 04/18/24 0346 CA 9.8 10.1 9.8 9.4 9.1 9.1 8.8 MG -- -- -- 2.3 2.3 2.1 2.0 HEPATIC: No results for input(s): "ALKPHOS", "ALT", "AST", "TBILI", "LIPASE" in the last 168 hours. URINALYSIS: No results for input(s): "PH", "SPGR", "UGLUC", "UBILI", "UKET", "UHB", "UPROT", "UROBIL", "UWBC", "SSA" in the last 168 hours. Invalid input(s): "NITR" CARDIAC: No results for input(s): "PBNP" in the last 168 hours. Problem List Acute ischemic right MCA stroke (HCC) (POA: Yes) On mechanically assisted ventilation (HCC) (POA: No) Left hemiplegia (HCC) (POA: Yes) Facial droop due to acute cerebrovascular accident (CVA) (HCC) (HCC) (POA: Yes) Aphasia (POA: Yes) Primary hypertension (POA: Yes) Mixed hyperlipidemia (POA: Yes) History of aortic valve replacement (POA: Yes) JAIRO (obstructive sleep apnea) (POA: Yes) Acute respiratory failure (HCC) (POA: No) At risk for delirium (POA: Clinically Undetermined) PHYSICAL EXAM: BP 132/81 Pulse 63 Temp (Src) 97.4 (Oral) Resp 16 Ht 5' 7" (1.70m) Wt 151 lb 3.8 oz (68.6kg) SpO2 94% BMI 23.68 kg/(m2). O2 Therapy: Room Air Constitutional - Vitals as above, NAD Respiratory- Clear to auscultate both sides. No crackles, wheezes or rales CVS- RRR, no murmur/gallop/rub, pulse 2+ GI- NTND, bowel sounds normally heard Neuro- left facial droop, LUE weakness, LLE 4/5, diminished sensation on left, right gaze deviation, confused HOSPITAL COURSE: 73 yo male with pmh CVA, CAD, aortic valve replacement, HTN, HLD, CKD, and JAIRO who presents with sudden onset aphasia and left sided weakness while in the hospital visiting his . iNIHSS 23. CT early ischemia in R insula. 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 TNK given at 2158. Pt s/p EVT tici 3 with angioplasty and stenting of the right ICA-CCA by Dr Cantor. Remained intubated and on aggrastat gtt post procedure. CUS with partial re-occlusion of R MCA stent. He was extubated 04/20 and transferred to [facility] 04/21. Failed swallow eval and MBSS, now with Corpak and tube feeds. #acute right MCA stroke -On stroke protocol, monitor neurochecks, monitor on telemetry -Continue DAPT, Lipitor 80 mg daily -Neurology following, appreciate input -PT OT ST consulted, cortrak in place, recommending acute rehab #Hypertension, hyperlipidemia -On labetalol as needed, statin. Monitor vitals and adjust accordingly #Acute hypoxic respiratory failure -S/p extubated on 04/20, now on room air, monitor respiratory status #Dysphagia -Likely second (more content not included)... [facility] 04-23-2024 Note HNO ID: [id number] Author: MILTON BELLA MD Service: Hospital Medicine Author Type: Physician Type: Progress Notes Filed: 04/23/2024 12:20 Note Text: DEPARTMENT OF HOSPITAL MEDICINE Hospital Medicine/Primary Attending: Milton Bella MD NIGHT AND WEEKEND COVERAGE: After 7pm please page [phone] Subjective: Seen and examined at bedside. Patient was resting in bed, restraints in place as pt tried to pull cortrak. Per nursing able to follow simple commands and occasionally respond to questions but aphasia present. MEDICATIONS: Current Facility-Administered Medications Medication Dose Route Frequency NaCl 0.9% iv flush bag 20 mL INTRAVENOUS PRN atorvastatin 80 mg tab(s) (LIPITOR) 80 mg ORAL/FEEDING TUBE AT BEDTIME acetaminophen 650 mg tab(s) (TYLENOL) 650 mg ORAL/FEEDING TUBE q 4 H PRN ondansetron (PF) 4 mg injection (ZOFRAN) 4 mg INTRAVENOUS q 6 H PRN pantoprazole 40 mg oral liquid (PROTONIX) 40 mg ORAL/FEEDING TUBE DAILY (6 AM) clopidogrel 75 mg tab(s) (PLAVIX) 75 mg ORAL/FEEDING TUBE DAILY aspirin 81 mg chewable tab(s) 81 mg ORAL/FEEDING TUBE DAILY venlafaxine 75 mg tab(s) (EFFEXOR) 75 mg ORAL/FEEDING TUBE TID w MEALS heparin 5,000 Units injection 5,000 Units SUBCUTANEOUS q 8 H senna-docusate 8.6-50 mg 2 tablet (SENNA-S) 2 tablet ORAL/FEEDING TUBE BID melatonin 3 mg tab(s) 3 mg ORAL/FEEDING TUBE DAILY (8 PM) DATA: Diagnostic tests reviewed for today's visit: Lab data: CBC: Recent Labs 04/23/2453204/22/240 04/21/2441204/20/24 03404/19/24 0342 04/18/24 0346 04/17/24 0332 04/16/24 1323 WBC 10.73 9.80 10.81 7.59 7.80 7.75 8.05 9.65 HB 13.3 12.8* 11.9* 10.8* 10.5* 10.3* 10.3* 10.9* HCT 38.7* 37.5* 35.0* 31.2* 30.9* 30.5* 31.9* 32.7* PLT 444* 380 317 223 187 154 157 196 MCV 101.3* 101.9* 101.4* 102.3* 102.3* 102.7* 108.1* 105.5* RDWCV 11.7 11.9 11.9 12.0 12.2 12.1 13.0 12.9 COAG: No results for input(s): "APTT", "INR" in the last 168 hours. BMP: Recent Labs 04/23/2433 04/22/24 0430 04/21/24 0413 06/03/34304/19/2434104/18/2434504/17/24 0332 GLUC 122* 92 78 126* 125* 128* 98 NA 135* 135* 134* 135* 137 136 142 K 4.4 4.3 4.5 4.4 4.2 4.0 3.7 CHLOR 99 99 97 99 101 105 111* CO2 25 23 26 26 25 22 21* ANION 11 13 11 10 11 9 10 BUN 39* 35* 31* 30* 24 20 26* CREAT 1.03 1.03 1.09 0.99 0.94 0.94 1.14 CHEM: Recent Labs 04/23/24 0533 04/22/24 0430 04/21/24 0413 04/20/24 03404/19/2434104/18/2434504/17/24 0332 CA 10.1 9.8 9.4 9.1 9.1 8.8 8.4* MG -- -- 2.3 2.3 2.1 2.0 2.1 HEPATIC: No results for input(s): "ALKPHOS", "ALT", "AST", "TBILI", "LIPASE" in the last 168 hours. URINALYSIS: No results for input(s): "PH", "SPGR", "UGLUC", "UBILI", "UKET", "UHB", "UPROT", "UROBIL", "UWBC", "SSA" in the last 168 hours. Invalid input(s): "NITR" CARDIAC: No results for input(s): "PBNP" in the last 168 hours. Problem List Acute ischemic right MCA stroke (HCC) (POA: Yes) On mechanically assisted ventilation (HCC) (POA: No) Left hemiplegia (HCC) (POA: Yes) Facial droop due to acute cerebrovascular accident (CVA) (HCC) (HCC) (POA: Yes) Aphasia (POA: Yes) Primary hypertension (POA: Yes) Mixed hyperlipidemia (POA: Yes) History of aortic valve replacement (POA: Yes) JAIRO (obstructive sleep apnea) (POA: Yes) Acute respiratory failure (HCC) (POA: No) At risk for delirium (POA: Clinically Undetermined) PHYSICAL EXAM: BP 106/79 Pulse 67 Temp (Src) 97.5 (Axillary) Resp 18 Ht 5' 7" (1.70m) Wt 151 lb 3.8 oz (68.6kg) SpO2 96% BMI 23.68 kg/(m2). O2 Therapy: Room Air Constitutional - Vitals as above, NAD Respiratory- Clear to auscultate both sides. No crackles, wheezes or rales CVS- RRR, no murmur/gallop/rub, pulse 2+ GI- NTND, bowel sounds normally heard Neuro- left facial droop, LUE weakness, LLE 4/5, diminished sensation on left, right gaze deviation, confused HOSPITAL COURSE: 73 yo male with pmh CVA, CAD, aortic valve replacement, HTN, HLD, CKD, and JAIRO who presents with sudden onset aphasia and left sided weakness while in the hospital visiting his . iNIHSS 23. CT early ischemia in R insula. 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 TNK given at 2158. Pt s/p EVT tici 3 with angioplasty and stenting of the right ICA-CCA by Dr Cantor. Remained intubated and on aggrastat gtt post procedure. CUS with partial re-occlusion of R MCA stent. He was extubated 04/20 and transferred to [facility] 04/21. Failed swallow eval and MBSS, now with Corpak and tube feeds. #acute right MCA stroke -On stroke protocol, monitor neurochecks, monitor on telemetry -Continue DAPT, Lipitor 80 mg daily -Neurology following, appreciate input -PT OT ST consulted, cortrak in place, recommending acute rehab #Hypertension, hyperlipidemia -On labetalol as needed, statin. Monitor vitals and adjust accordingly #Acute hypoxic respiratory failure -S/p extubated on 04/20, now on room air, monitor respiratory sta (more content not included)... [facility] 04-22-2024 Note HNO ID: [id number] Author: MILTON BELLA MD Service: Hospital Medicine Author Type: Physician Type: Progress Notes Filed: 04/22/2024 16:15 Note Text: DEPARTMENT OF HOSPITAL MEDICINE Hospital Medicine/Primary Attending: Milton Bella MD NIGHT AND WEEKEND COVERAGE: After 7pm please page [phone] Subjective: Seen and examined at bedside. Patient has resting in bed, pulled out cortrak last night which was replaced this morning. Started on tube feeds. Appears drowsy but arousable easily. Per nursing able to follow simple commands and occasionally respond to questions but aphasia present. MEDICATIONS: Current Facility-Administered Medications Medication Dose Route Frequency labetalol 10-20 mg injection syringe (NORMODYNE) 10-20 mg INTRAVENOUS q 10 MIN PRN NaCl 0.9% iv flush bag 20 mL INTRAVENOUS PRN atorvastatin 80 mg tab(s) (LIPITOR) 80 mg ORAL/FEEDING TUBE AT BEDTIME acetaminophen 650 mg tab(s) (TYLENOL) 650 mg ORAL/FEEDING TUBE q 4 H PRN ondansetron (PF) 4 mg injection (ZOFRAN) 4 mg INTRAVENOUS q 6 H PRN potassium chloride ER 20-40 mEq tab(s) (KLOR-CON) 20-40 mEq ORAL/FEEDING TUBE PRN Or potassium chloride iv piggyback 20 mEq/100 mL 20 mEq INTRAVENOUS PRN magnesium sulfate iv piggyback in sterile water 2 g 50 mL 2 g INTRAVENOUS PRN phosphorus 500 mg tab(s) (K PHOS NEUTRAL) 500 mg ORAL/FEEDING TUBE PRN(NO DISPENSE) calcium gluconate iv piggyback 2 g in NaCl (iso-osmotic) 100 mL 2 g INTRAVENOUS PRN(NO DISPENSE) pantoprazole 40 mg oral liquid (PROTONIX) 40 mg ORAL/FEEDING TUBE DAILY (6 AM) clopidogrel 75 mg tab(s) (PLAVIX) 75 mg ORAL/FEEDING TUBE DAILY aspirin 81 mg chewable tab(s) 81 mg ORAL/FEEDING TUBE DAILY venlafaxine 75 mg tab(s) (EFFEXOR) 75 mg ORAL/FEEDING TUBE TID w MEALS heparin 5,000 Units injection 5,000 Units SUBCUTANEOUS q 8 H senna-docusate 8.6-50 mg 2 tablet (SENNA-S) 2 tablet ORAL/FEEDING TUBE BID melatonin 3 mg tab(s) 3 mg ORAL/FEEDING TUBE DAILY (8 PM) DATA: Diagnostic tests reviewed for today's visit: Lab data: CBC: Recent Labs 04/22/24 0430 04/21/24 0413 04/20/24 0344 04/19/24 0342 04/18/24 0346 04/17/24 0332 04/16/24 1323 04/16/24 0517 04/15/24 2123 WBC 9.80 10.81 7.59 7.80 7.75 8.05 9.65 12.12* 20.25* HB 12.8* 11.9* 10.8* 10.5* 10.3* 10.3* 10.9* 11.2* 15.9 HCT 37.5* 35.0* 31.2* 30.9* 30.5* 31.9* 32.7* 33.8* 48.0 PLT 380 317 223 187 154 157 196 193 299 MCV 101.9* 101.4* 102.3* 102.3* 102.7* 108.1* 105.5* 106.0* 104.6* RDWCV 11.9 11.9 12.0 12.2 12.1 13.0 12.9 12.6 12.4 NEUTP -- -- -- -- -- -- -- -- 79.9 ABSNEUT -- -- -- -- -- -- -- -- 16.16* LYMPHP -- -- -- -- -- -- -- -- 13.7 MONOP -- -- -- -- -- -- -- -- 5.1 EODINP -- -- -- -- -- -- -- -- 0.0 COAG: Recent Labs 04/15/24 2132 INR 0.9 BMP: Recent Labs 04/22/2442904/21/2441204/20/2434304/19/2434104/18/24 03404/17/24 0332 04/16/24 0517 04/15/24 2123 GLUC 92 78 126* 125* 128* 98 106* 141* NA 135* 134* 135* 137 136 142 137 137 K 4.3 4.5 4.4 4.2 4.0 3.7 4.7 4.5 CHLOR 99 97 99 101 105 111* 112* 101 CO2 23 26 26 25 22 21* 19* 14* ANION 13 11 10 11 9 10 6* 22* BUN 35* 31* 30* 24 20 26* 36* 44* CREAT 1.03 1.09 0.99 0.94 0.94 1.14 1.42* 1.70* CHEM: Recent Labs 04/22/24 0430 04/21/24 04104/20/24 0344 04/19/24 0342 04/18/24 0346 04/17/24 0332 04/16/24 0517 04/15/242122 ALB -- -- -- -- -- -- -- 4.6 TPROT -- -- -- -- -- -- -- 7.3 CA 9.8 9.4 9.1 9.1 8.8 8.4* 7.8* 10.0 MG -- 2.3 2.3 2.1 2.0 2.1 1.9 -- HEPATIC: Recent Labs 04/15/242122 ALKPHOS 78 ALT 31 TBILI 0.3 URINALYSIS: Recent Labs 04/16/24 0140 SPGR >1.040* UGLUC Negative UBILI Negative UKET Negative UHB Negative UPROT Trace UWBC 0-5 /HPF CARDIAC: No results for input(s): "PBNP" in the last 168 hours. Problem List Acute ischemic right MCA stroke (HCC) (POA: Yes) On mechanically assisted ventilation (HCC) (POA: No) Left hemiplegia (HCC) (POA: Yes) Facial droop due to acute cerebrovascular accident (CVA) (HCC) (HCC) (POA: Yes) Aphasia (POA: Yes) Primary hypertension (POA: Yes) Mixed hyperlipidemia (POA: Yes) History of aortic valve replacement (POA: Yes) JAIRO (obstructive sleep apnea) (POA: Yes) Acute respiratory failure (HCC) (POA: No) At risk for delirium (POA: Clinically Undetermined) PHYSICAL EXAM: BP 137/109 Pulse 67 Temp (Src) 97.5 (Temporal) Resp 26 Ht 5' 7" (1.70m) Wt 151 lb 3.8 oz (68.6kg) SpO2 94% BMI 23.68 kg/(m2). O2 Therapy: Room Air Constitutional - Vitals as above, NAD Respiratory- Clear to auscultate both sides. No crackles, wheezes or rales, No labored breathing noted CVS- RRR, no murmur/gallop/rub, pulse 2+ GI- NTND, bowel sounds normally heard Neuro- left facial droop, LUE weakness, LLE 4/5, diminished sensation on left, right gaze deviation, confused HOSPITAL COURSE: 73 yo male with pmh CVA, CAD, aortic valve replacement, HTN, HLD, CKD, and JAIRO who presents with s (more content not included)... [facility] 04-22-2024 Note HNO ID: [id number] Author: SATYA MARCELINO LSW Service: Care Management Author Type: Cable Television Technician Type: Care Mgt Progress Note Filed: 04/22/2024 09:33 Note Text: CARE MANAGEMENT PROGRESS NOTE SERVICE DATE: 04/22/2024 SERVICE TIME: 9:31 AM LOS: 6 days [place] of Choice Given: Yes Level of Care Discussed: Inpatient Rehab Facility Financial Disclosure Provided: Yes Financial Disclosure Comments: Disclosed [facility] affiliation Provider List: Rehab Facility (Verballly discussed [facility] options) SW called pt's daughter, Lindsay to discuss PT/OT evals. PT/OT recommending [facility]. Lindsay is agreeable. SW tasked referrals to [facility] and Nishant Goyal. SIGNATURE: AMANDA Martinez PATIENT NAME: Jonathon Perales DATE: April 22, 2024 TIME: 9:31 AM PAGER/CONTACT #: [phone] [facility] 04-22-2024 Note HNO ID: [id number] Author: DEBRA MCMILLAN PA-C Service: Neurology ICU Author Type: Physician Telesales Manager Type: Procedures Filed: 04/22/2024 05:52 Note Text: BEDSIDE PROCEDURE NOTE FEEDING TUBE Date/Start Time: 04/22/2024 5:30 AM Date/Stop Time: 04/22/2024 5:45 AM Performed by: Debra Mcmillan PA-C Authorized by: Debra Mcmillan PA-C Where was Patient When this Procedure was Performed Bedside/Unscheduled Procedure Room Informed Consent Consent Obtained: N/A [place] Protocol A moment to CARE was completed. SIGN IN Personnel directly involved with the procedure wore the appropriate PPE. Special Equipment: Yes Patient/Surrogate Stated/Verified: Patient name, Date of , Relevant allergies and Intended procedure TIME OUT Intended patient and procedure match the source document(s). Consent documented and matches the intended procedure. Relevant labs, photos, and/or imaging studies have been reviewed. Correct side/site marked and visible. Medications required for procedure verified. No fire risk assessment and interventions applicable. No implant(s) inserted. Pre-Procedure Details: Medications: None Procedure Details: Type: Gastric Fluoroscopic Guidance Used: No Indication: Replace a malpositioned feeding tube Location: Left Insertion Site: naris This patient has an ENfit connection style feeding tube. The feeding tube was then advanced to approximately 55 cm. Auscultation suggested the feeding tube reached the stomach. Stomach Insufflation: no Final Position: Stomach The feeding tube was taped to the nose. Placement Confirmation: Auscultation, CORTRAK and KUB ordered Successful Placement: yes Post-Procedure Details: Estimated Blood Loss: none SIGN OUT No specimen collected. All instruments, equipment, possible retained foreign bodies accounted for. Post-procedure follow-up management communicated and Plan of Care Visit completed when applicable SIGNATURE: Debra Mcmillan PA-C PATIENT NAME: Jonathon Perales DATE: April 22, 2024 TIME: 5:50 AM [facility] 04-21-2024 Note HNO ID: [id number] Author: LORETA JAIMES APRN.CNP Service: Neurology ICU Author Type: Nurse Practitioner Type: Procedures Filed: 04/21/2024 15:47 Note Text: BEDSIDE PROCEDURE NOTE FEEDING TUBE Date/Start Time: 04/21/2024 3:46 PM Date/Stop Time: Performed by: Loreta Jaimes APRN.SILVIA Authorized by: Loreta Jaimes APRN.SILVIA Where was Patient When this Procedure was Performed Bedside/Unscheduled Procedure Room Informed Consent Consent Obtained: N/A [place] Protocol A moment to CARE was completed. SIGN IN Personnel directly involved with the procedure wore the appropriate PPE. Special Equipment: Yes Patient/Surrogate Stated/Verified: Patient name, Date of , Relevant allergies and Intended procedure TIME OUT Intended patient and procedure match the source document(s). Consent documented and matches the intended procedure. Relevant labs, photos, and/or imaging studies have been reviewed. Correct side/site marked and visible. Medications required for procedure verified. No fire risk assessment and interventions applicable. No implant(s) inserted. Pre-Procedure Details: Medications: None Procedure Details: Type: Gastric Fluoroscopic Guidance Used: Yes, image not captured Indication: Aspiration risk and failed swallow evaluation Location: Left Insertion Site: naris This patient has an ENfit connection style feeding tube. Duodenal feeding tube distance advanced: 70. Auscultation suggested the feeding tube reached the stomach. Stomach Insufflation: no Final Position: Stomach The feeding tube was taped to the nose. Placement Confirmation: Auscultation, CORTRAK and KUB ordered Successful Placement: yes Post-Procedure Details: Patient Tolerance: Patient tolerated the procedure well with no immediate complications Estimated Blood Loss: none Specimens Sent: none SIGN OUT No specimen collected. All instruments, equipment, possible retained foreign bodies accounted for. SIGNATURE: Loreta Jaimes APRN.CNP PATIENT NAME: Jonathon Perales DATE: April 21, 2024 TIME: 3:46 PM 1005 [facility] 04-21-2024 Note HNO ID: [id number] Author: SATYA MARCELINO LSW Service: Care Management Author Type: Cable Television Technician Type: Care Mgt Progress Note Filed: 04/21/2024 15:00 Note Text: CARE MANAGEMENT PROGRESS NOTE SERVICE DATE: 04/21/2024 SERVICE TIME: 2:59 PM LOS: 5 days Needs Prior to Discharge: To Be Determined;Accepting Facility;Facility or Agency Choices Chart reviewed. PT/OT recommending acute rehab. SW called and left pt's daughter Lindsay a voicemail to discuss. Awaiting call back. SIGNATURE: AMANDA Martinez PATIENT NAME: Jonathon Perales DATE: April 21, 2024 TIME: 2:59 PM PAGER/CONTACT #: [phone] [facility] 04-21-2024 Note HNO ID: [id number] Author: MONIK CALDWELL APRN.CNP Service: Neurology ICU Author Type: Nurse Practitioner Type: Progress Notes Filed: 04/21/2024 05:33 Note Text: SERVICE DATE: 04/21/2024 SERVICE TIME: 5:32 AM NEURO ICU PROGRESS NOTE DATE OF ADMISSION: 04/15/2024 Subjective Hospital Course: 04/17: Large R MCA territory infarct. CUS with partial re-occlusion of R MCA stent. 04/18: NAEON. Follows simple commands this AM. 04/19: NAEON. Following commands. Weaning sedation, SAT/SBT this morning, plans for extubation tomorrow. 04/20: SAT, SBT today and tolerating. Plan to extubate today. 04/21: Extubated yesterday tolerating 2L NC. Did not sleep much last night, melatonin add for tonight. Likely transfer to [facility] today. Events Since Last Note: As above Objective BP 130/80 Pulse 70 Temp 36.3 ?C (97.3 ?F) (Axillary) Resp (!) 34 Ht 170.2 cm (5' 7") Wt 68.6 kg (151 lb 3.8 oz) SpO2 99% BMI 23.69 kg/m? Weight change: Neuro: Alert, right gaze deviation, R>L pupil, left facial droop, confused(knew hospital and month), following simple commands, LUE no movement, LLE 4/5 drift, RU/LE 5/5 sustains AG, diminished sensation on left GCS: Eyes: 4. Spontaneous Verbal: 4: Confused Motor: 6: Obeys Motor commands Total: 14 CV: irregular Pulm: CTA unlabored on 2L NC, moist cough GI/: soft +BS Skin/Extremities: Edema- No Peripheral pulses- Present all extremities Wounds/Drsgs- bruising to left hip and right groin Breakdown- No Diagnostic tests reviewed for today's visit: Most recent labs and imaging results. Lines, Drains, and Airways Line Duration Peripheral 04/15/242123 Left Forearm 18 Gauge 5 days Peripheral 04/19/241950 [facility] Left Arm 20 Gauge 1 day Drain Duration External Collection Device 04/16/24 1700 4 days ICU Checklist Last Documented/Reviewed time: 04/21/2024 5:14 AM ICU Consent Complete?: Yes -------- A= Assess, Prevent, Manage Pain Pain adequately controlled?: Yes C= Choice of Sedation and Analgesia RASS at Goal?: Yes B= Both Spontaneous Awakening and Breathing Trials Ventilator: None D= Delirium: Assess, Prevent and Manage ICU Delirium Status: CAM Positive - existing, continue interventions Sleep adequate?: No Restraint Status: Present, will maintain Restraint Maintain Reason: Maintain safety of patient E= Early Mobility/Excercise ICU Mobility: ICU Mobility-Pt Has Been Out of Bed: No - Specify, PT Consult - Specify ""NO/MINIMAL TURN"" Order?: NA F= Family Engagement and Empowerment ICU plan of care visit at bedside in last 24 hours: Yes, Provider, RN, Patient/ designee ICU Disposition: ICU Disposition- Is Patient Clinically Ready to Transfer to [facility] or SDU?: No Discharge Planning: To be determined Prevention: Line Status: None Conley Status: None Pressure Injury Status: None GI/Stress Ulcer Prophylaxis: PPI Nutrition is at Goal: NPO VTE Prophylaxis: Chemoprophylaxis: Heparin SQ Mechanical Prophylaxis: Knee high SCD PERSONAL INVOLVEMENT IN CARE: Reviewing initiation, responses and adjustments to therapies, coordination of care, and updating family with Staff Physician, Dr. Pickens. Assessment AND Plan 73yo male with PMHx significant for stroke, CAD, aortic valve replacement, HTN, HPL, CKD, and JAIRO; who developed stroke symptoms while visiting his who is admitted to the hospital. LKW 19304/15. iNIHSS 23. CT early ischemia in R insula. 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 TNK given at 2158. Pt s/p EVT tici [address] Cantor. Pt remains intubated post procedure. Aggrastat gtt per Dr Cantor. Pt admitted to NSICU for further management. Active Hospital Problems as of 04/21/2024 Noted - Resolved [facility] * (Principal) Acute ischemic right MCA stroke (HCC) 04/16/2024 - Present Yes Current Assessment AND Plan P/w left hemiplegia, aphasia, and decreased sensation LKW 04/[address] early ischemia in R insula. 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 Treated with TNK at 2158 S/p EVT Tici 3 MRI brain 04/17: Confluent subacute infarct in the right MCA territory. Confluent petechial hemorrhage. No space-occupying hematoma. Localized mass effect. CUS 04/17: DARIN stent patent, mildly elevated velocities within the stent is evidence of less than 70% restenosis PLAN: - Neuro checks - SBP 90-140 - PRN labetalol/hydralazine - Echo - 04/16: EF 69. Bioprosthetic prosthetic aortic valve - Secondary prevention: Atorvastatin 80 mg daily - DAPT: ASA 81 mg daily + Plavix 75 mg daily - DVT PPx: IPCs, SQ Heparin - PT/OT/Speech - Stroke education On mechanically assisted ventilation (HCC) 04/16/2024 - Present No Current Assessment AND Plan Extubated 04/20 tolerating NC Left hemiplegia (HCC) 04/16/2024 - Present Yes Current Assessment AND Plan PT/OT Facial droop due to (more content not included)... [facility] 04-20-2024 Note HNO ID: [id number] Author: SATYA MARCELINO LSW Service: Care Management Author Type: Cable Television Technician Type: Care Mgt Progress Note Filed: 04/20/2024 14:36 Note Text: CARE MANAGEMENT PROGRESS NOTE SERVICE DATE: 04/20/2024 SERVICE TIME: 2:35 PM LOS: 4 days Needs Prior to Discharge: To Be Determined;OT/PT Evaluation Chart reviewed. Pt remains intubated and unable to participate in stroke depression screen at this time. Per neuro, plan to extubate today. Pt will need PT/OT evals once able to participate. Discharge plan TBD. SIGNATURE: AMANDA Martinez PATIENT NAME: Jonathon Perales DATE: April 20, 2024 TIME: 2:35 PM PAGER/CONTACT #: [phone] [facility] 04-20-2024 Note HNO ID: [id number] Author: LORETA JAIMES APRN.CNP Service: Neurology ICU Author Type: Nurse Practitioner Type: Progress Notes Filed: 04/20/2024 12:24 Note Text: SERVICE DATE: 04/20/2024 SERVICE TIME: 12:23 PM NEURO ICU PROGRESS NOTE DATE OF ADMISSION: 04/15/2024 Subjective Hospital Course: 04/17: Large R MCA territory infarct. CUS with partial re-occlusion of R MCA stent. 04/18: NAEON. Follows simple commands this AM. 04/19: NAEON. Following commands. Weaning sedation, SAT/SBT this morning, plans for extubation tomorrow. 04/20: SAT, SBT today and tolerating. Plan to extubate today. Objective BP 119/69 Pulse 68 Temp 36.2 ?C (97.2 ?F) (Temporal) Resp (!) 31 Ht 170.2 cm (5' 7") Wt 68.6 kg (151 lb 3.8 oz) SpO2 99% BMI 23.69 kg/m? Weight change: Neuro: intubated, on propofol. GCS: Eyes: 3: To Speech Verbal: T: Intubated Motor: 6: Obeys Motor commands Total: 10T Awake, following simple commands. Perrl 3B, EOM grossly intact but unable to look Left. L facial droop. RUE/RLE 4/5. LUE 0/5, LLE 3/5 unable to sustain. CV: RRR on tele. No m/g/r Pulm: CTAB , easy and unlabored on vent. GI/: +BS all quadrants. Abd soft, nontender, nondistended Skin/Extremities: Edema- No Peripheral pulses- Present all extremities Wounds/Drsgs- No Breakdown- No Diagnostic tests reviewed for today's visit: Most recent labs and imaging results. Most recent EKG Lines, Drains, and Airways Line Duration Peripheral 04/15/242123 Left Forearm 18 Gauge 4 days Peripheral 04/19/241950 [facility] Left Arm 20 Gauge <1 day Drain Duration External Collection Device 04/16/24 1700 3 days ICU Checklist Last Documented/Reviewed time: 04/20/2024 12:21 PM ICU Consent Complete?: Yes -------- A= Assess, Prevent, Manage Pain Pain adequately controlled?: Yes C= Choice of Sedation and Analgesia RASS at Goal?: Yes B= Both Spontaneous Awakening and Breathing Trials Ventilator: Present Spontaneous Awakening?: Yes Spontaneous Breathing?: Yes Head of Bed > 30 degrees?: Yes Mouth Care?: Yes D= Delirium: Assess, Prevent and Manage ICU Delirium Status: CAM Positive - existing, continue interventions Sleep adequate?: Yes Restraint Status: Present, will maintain Restraint Maintain Reason: Maintain safety of patient E= Early Mobility/Excercise ICU Mobility: ICU Mobility-Pt Has Been Out of Bed: No - Specify, PT Consult - Specify ""NO/MINIMAL TURN"" Order?: NA F= Family Engagement and Empowerment ICU plan of care visit at bedside in last 24 hours: Yes, Provider, RN, Patient/ designee ICU Disposition: ICU Disposition- Is Patient Clinically Ready to Transfer to [facility] or SDU?: No Discharge Planning: To be determined Prevention: Line Status: None Conley Status: None Pressure Injury Status: None GI/Stress Ulcer Prophylaxis: PPI Nutrition is at Goal: Yes VTE Prophylaxis: Chemoprophylaxis: Heparin SQ Mechanical Prophylaxis: Knee high SCD PERSONAL INVOLVEMENT IN CARE: Reviewing initiation, responses and adjustments to therapies, coordination of care, and updating family with Staff Physician, Dr. Pickens. Assessment AND Plan 73yo male with PMHx significant for stroke, CAD, aortic valve replacement, HTN, HPL, CKD, and JAIRO; who developed stroke symptoms while visiting his who is admitted to the hospital. LKW 04/15. iNIHSS 23. CT early ischemia in R insula. 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 TNK given at 2158. Pt s/p EVT tici [address] Cantor. Pt remains intubated post procedure. Aggrastat gtt per Dr Cantor. Pt admitted to NSICU for further management. Active Hospital Problems as of 04/20/2024 Noted - Resolved [facility] * (Principal) Acute ischemic right MCA stroke (HCC) 04/16/2024 - Present Yes Current Assessment AND Plan P/w left hemiplegia, aphasia, and decreased sensation LKW 04/[address] early ischemia in R insula. 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 Treated with TNK at 2158 S/p EVT Tici 3 MRI brain 04/17: Confluent subacute infarct in the right MCA territory. Confluent petechial hemorrhage. No space-occupying hematoma. Localized mass effect. CUS 04/17: DARIN stent patent, mildly elevated velocities within the stent is evidence of less than 70% restenosis PLAN: - Neuro checks - SBP 90-140 - PRN labetalol/hydralazine - Echo - 04/16: EF 69. Bioprosthetic prosthetic aortic valve - Secondary prevention: Start Atorvastatin 80 mg daily - DAPT: ASA 81 mg daily + Plavix 75 mg daily - DVT PPx: IPCs, SQ Heparin - PT/OT/Speech - Stroke education On mechanically assisted ventilation ([facility]) 04/16/2024 - Present No Current Assessment AND Plan PLAN: - VAP bundle - WTE - PPI, peridex Left hemiplegia ([facility]) 04/16/2024 - Present Yes Facial droop due to acute cerebrovascular accident (CVA) ([facility]) ([facility]) 04/16/2024 (more content not included)... [facility] 04-19-2024 Note HNO ID: [id number] Author: JEANNETTE NAIDU MD Service: Neurology ICU Author Type: Physician Type: Progress Notes Filed: 04/19/2024 17:45 Note Text: SERVICE DATE: 04/19/2024 SERVICE TIME: 11:57 AM NEURO ICU PROGRESS NOTE DATE OF ADMISSION: 04/15/2024 Subjective Hospital Course: 04/17: Large R MCA territory infarct. CUS with partial re-occlusion of R MCA stent. 04/18: NAEON. Follows simple commands this AM. 04/19: NAEON. Following commands. Weaning sedation, SAT/SBT this morning, possible extubation. Objective BP 117/67 Pulse 64 Temp 36.7 ?C (98.1 ?F) (Temporal) Resp 27 Ht 170.2 cm (5' 7") Wt 68.6 kg (151 lb 3.8 oz) SpO2 98% BMI 23.69 kg/m? Weight change: Neuro: intubated, on propofol. GCS: Eyes: 3: To Speech Verbal: T: Intubated Motor: 6: Obeys Motor commands Total: 10T Awake, following simple commands. Perrl 3B, EOM grossly intact but unable to look Left. L facial droop. RUE/RLE 4/5. LUE 0/5, LLE 3/5 unable to sustain. CV: RRR on tele. No m/g/r Pulm: CTAB , easy and unlabored Mechanical Ventilation: Ventilator Mode (S) Pressure Support, CPAP (PC-CSVs) (SBT) Ventilator Respiratory Rate (BPM) 16 Tidal Volume (mL) 400 PEEP (cm H2O) 5 FiO2 (%) 30 Pressure Support (cm H2O) (S) 5 (SBT) GI/: +BS all quadrants. Abd soft, nontender, nondistended Skin/Extremities: Edema- No Peripheral pulses- Present all extremities Wounds/Drsgs- No Breakdown- No Diagnostic tests reviewed for today's visit: Most recent labs and imaging results. Most recent EKG Lines, Drains, and Airways Line Duration Peripheral 04/15/242123 Left Forearm 18 Gauge 3 days Drain Duration GI/ Feeding 04/16/24 [facility] Gastric Mouth 3 days External Collection Device 04/16/24 1700 2 days Airway Duration Airway Endotracheal Tube 04/15/24 2245 3 days ICU Checklist Last Documented/Reviewed time: 04/19/2024 8:40 AM ICU Consent Complete?: No -------- A= Assess, Prevent, Manage Pain Pain adequately controlled?: Yes C= Choice of Sedation and Analgesia RASS at Goal?: Yes B= Both Spontaneous Awakening and Breathing Trials Ventilator: Present Spontaneous Awakening?: Yes Spontaneous Breathing?: Yes Head of Bed > 30 degrees?: Yes Mouth Care?: Yes D= Delirium: Assess, Prevent and Manage ICU Delirium Status: CAM Positive - existing, continue interventions Sleep adequate?: Yes Restraint Status: Present, will maintain Restraint Maintain Reason: Maintain safety of patient E= Early Mobility/Excercise ICU Mobility: ICU Mobility-Pt Has Been Out of Bed: No - Specify, PT Consult - Specify ""NO/MINIMAL TURN"" Order?: NA F= Family Engagement and Empowerment ICU plan of care visit at bedside in last 24 hours: Yes, Provider, RN, Patient/ designee ICU Disposition: ICU Disposition- Is Patient Clinically Ready to Transfer to [facility] or SDU?: No Discharge Planning: To be determined Prevention: Line Status: None Conley Status: None Pressure Injury Status: None GI/Stress Ulcer Prophylaxis: PPI Nutrition is at Goal: Yes VTE Prophylaxis: Chemoprophylaxis: Heparin SQ Mechanical Prophylaxis: Knee high SCD PERSONAL INVOLVEMENT IN CARE: Reviewing initiation, responses and adjustments to therapies, coordination of care, and updating family with Staff Physician, Dr. Naidu. Assessment AND Plan 73yo male with PMHx significant for stroke, CAD, aortic valve replacement, HTN, HPL, CKD, and JAIRO; who developed stroke symptoms while visiting his who is admitted to the hospital. LKW 04/15. iNIHSS 23. CT early ischemia in R insula. 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 TNK given at 2158. Pt s/p EVT tici [address] Cantor. Pt remains intubated post procedure. Aggrastat gtt per Dr Cantor. Pt admitted to NSICU for further management. Active Hospital Problems as of 04/19/2024 Noted - Resolved [facility] * (Principal) Acute ischemic right MCA stroke (HCC) 04/16/2024 - Present Yes Current Assessment AND Plan P/w left hemiplegia, aphasia, and decreased sensation LKW 04/[address] early ischemia in R insula. 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 Treated with TNK at 2158 S/p EVT Tici 3 MRI brain 04/17: Confluent subacute infarct in the right MCA territory. Confluent petechial hemorrhage. No space-occupying hematoma. Localized mass effect. CUS 04/17: preliminary read with partial re-occlusion of stent. PLAN: - Post tPA/TNK protocol - Post EVT protocol - Neuro checks - SBP 90-140 - PRN labetalol/hydralazine - Echo - 04/16: EF 69. Bioprosthetic prosthetic aortic valve - Secondary prevention: Start Atorvastatin 80 mg daily - DAPT: ASA 81 mg daily + Plavix 75 mg daily - DVT PPx: IPCs, SQ Heparin - PT/OT/Speech - Stroke education On mechanically assisted ventilation (HCC) 04/16/2024 - Present No Current Assessment AND Plan P (more content not included)... [facility] 04-18-2024 Note HNO ID: [id number] Author: JEANNETTE NAIDU MD Service: Neurology ICU Author Type: Physician Type: Progress Notes Filed: 04/18/2024 17:50 Note Text: SERVICE DATE: 04/18/2024 SERVICE TIME: 12:05 PM NEURO ICU PROGRESS NOTE DATE OF ADMISSION: 04/15/2024 Subjective Hospital Course: 04/17: Large R MCA territory infarct. CUS with partial re-occlusion of R MCA stent. 04/18: NAEON. Follows simple commands this AM. Events Since Last Note: See hospital course. Objective BP (!) 112/47 Pulse 66 Temp 37.5 ?C (99.5 ?F) (Axillary) Resp 17 Ht 170.2 cm (5' 7") Wt 68.6 kg (151 lb 3.8 oz) SpO2 98% BMI 23.69 kg/m? Weight change: Neuro: Examined with propofol on hold. Eyes open to voice. PERRL, 3 mm brisk. (Intermittently L>R per RN). Roving to MLG. Does not cross midline to right. Follows some simple commands. RUE: 3/5. RLE: 3/5. LUE: 0/5. LLE: 2/5. CV: NSR on tele. Pulm: CTA on MV Ventilator Mode (S) Pressure Support, CPAP (PC-CSVs) (SBT) Ventilator Respiratory Rate (BPM) 16 Tidal Volume (mL) 400 PEEP (cm H2O) 5 FiO2 (%) 30 Pressure Support (cm H2O) (S) 5 (SBT) GI/: Abdomen soft, non-distended. Bowel sounds present. Skin/Extremities: Edema- Yes Peripheral pulses- Present all extremities Wounds/Drsgs- No Breakdown- No Diagnostic tests reviewed for today's visit: Most recent labs and imaging results. Lines, Drains, and Airways Line Duration Peripheral 04/15/242123 Left Forearm 18 Gauge 2 days Peripheral 04/15/242123 Right Forearm 18 Gauge 2 days Drain Duration GI/ Feeding 04/16/24 [facility] Gastric Mouth 2 days External Collection Device 04/16/24 1700 1 day Airway Duration Airway Endotracheal Tube 04/15/24 2245 2 days ICU Checklist Last Documented/Reviewed time: 04/18/2024 8:50 AM ICU Consent Complete?: No -------- A= Assess, Prevent, Manage Pain Pain adequately controlled?: Yes C= Choice of Sedation and Analgesia RASS at Goal?: Yes B= Both Spontaneous Awakening and Breathing Trials Ventilator: Present Spontaneous Awakening?: Yes Spontaneous Breathing?: Yes Head of Bed > 30 degrees?: Yes Mouth Care?: Yes D= Delirium: Assess, Prevent and Manage ICU Delirium Status: CAM Positive - existing, continue interventions Sleep adequate?: Yes Restraint Status: Present, will maintain Restraint Maintain Reason: Maintain safety of patient E= Early Mobility/Excercise ICU Mobility: ICU Mobility-Pt Has Been Out of Bed: No - Specify, PT Consult - Specify ""NO/MINIMAL TURN"" Order?: NA F= Family Engagement and Empowerment ICU plan of care visit at bedside in last 24 hours: Yes, Provider, RN, Patient/ designee ICU Disposition: ICU Disposition- Is Patient Clinically Ready to Transfer to [facility] or SDU?: No Discharge Planning: To be determined Prevention: Line Status: None Conley Status: None Pressure Injury Status: None GI/Stress Ulcer Prophylaxis: PPI Nutrition is at Goal: Yes VTE Prophylaxis: Chemoprophylaxis: Heparin SQ Mechanical Prophylaxis: Knee high SCD PERSONAL INVOLVEMENT IN CARE: Reviewing initiation, responses and adjustments to therapies, coordination of care, and updating family with Staff Physician, Dr. Naidu. Assessment AND Plan 73yo male with PMHx significant for stroke, CAD, aortic valve replacement, HTN, HPL, CKD, and JAIRO; who developed stroke symptoms while visiting his who is admitted to the hospital. LKW 1930 04/15. iNIHSS 23. CT early ischemia in R insula. 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 TNK given at 2158. Pt s/p EVT tici [address] Cantor. Pt remains intubated post procedure. Aggrastat gtt per Dr Cantor. Pt admitted to NSICU for further management. Neurology * Acute ischemic right MCA stroke (HCC)- (present on admission) P/w left hemiplegia, aphasia, and decreased sensation LKW 04/[address] early ischemia in R insula. 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 Treated with TNK at 2158 S/p EVT Tici 3 MRI brain 04/17: Confluent subacute infarct in the right MCA territory. Confluent petechial hemorrhage. No space-occupying hematoma. Localized mass effect. CUS 04/17: preliminary read with partial re-occlusion of stent. PLAN: - Post tPA/TNK protocol - Post EVT protocol - Neuro checks - SBP 90-140 - PRN labetalol/hydralazine - EKG, Echo, Cardiac enzymes - Secondary prevention: Start Atorvastatin 80 mg daily - DAPT: ASA 81 mg daily + Plavix 75 mg daily - DVT PPx: IPCs, SQ Heparin - PT/OT/Speech - Stroke education Pulmonary Acute respiratory failure (HCC) On mechanically assisted ventilation (HCC) PLAN: - VAP bundle - WTE Medication and Non-Pharmacologic VTE Prophylaxis/Anticoagulants Anticoagulant AND Antiplatelet Medications (From admission, onward) Start Dose Route Frequency Last Action Ordered Stop 04/17/24 0930 heparin 5,000 Units in (more content not included)... [facility] 04-17-2024 Note HNO ID: [id number] Author: MONIK CALDWELL APRN.DRY STARCH OPERATOR Service: Neurology ICU Author Type: Nurse Practitioner Type: Plan of Care Filed: 04/18/2024 07:16 Note Text: Noted that R pupil ~5mm briskly reactive and L pupil ~3mm briskly reactive. Patient is still waking up easily following commands on the right plegic on the left. He seems to nod appropriately. Stat CTH completed revealing evolving right MCA territory infarct. VSS. Will continue to monitor patient. Monik Caldwell APRN.DRY STARCH OPERATOR Pager [phone] [facility] 04-17-2024 Note HNO ID: [id number] Author: SATYA MARCELINO LSW Service: Care Management Author Type: Cable Television Technician Type: Care Mgt Initial Assessment Filed: 04/17/2024 15:47 Note Text: CARE MANAGEMENT: ASSESSMENT AND DISCHARGE PLAN SERVICE DATE: April 17, 2024 SERVICE TIME: 3:36 PM PCP: Giorgio Fernandez DO Primary Contact: Extended Emergency Contact Information Primary Emergency Contact: Lindsay Perales Mobile Relation: Daughter Admission Status: Inpatient Insurance Provider: [facility] [employer]ERR[employer] H[facility] Discharge Planning requested by: Per Department Practice Potential Transition Plans To Be Determined Advance Directives Current Advance Directive: None Assistant Professor Of Education Attempted to Assist with AD Completion: No Unable to Assist Due To:: Coma Current Living Arrangements and Support Lives with: Children Type of Residence: Private Residence (Apartment or Condo) Support: Children How do you manage to accomplish the following: Independent: Ambulation;Bathe/Shower;Dress;Meal s/Meal Prep;Going to the bathroom;Medication Management;Transportation to appointments/community Current Services/Equipment Current Post-Acute Service(s): None Discharge Planning Patient Goal(s): Better mobility, General wellness [place] of Choice Explained: [place] of [place] Given: No Reason Not Given: Unable to complete with this assessment - revisit Are you interested in bedside delivery of your medications? No Discharge Planning Participant(s): Children Patient/Family Comments: Caregiver Assessment: Caregiver is ready, willing and able to meet the patient's needs as recommended by the inter-professional team: Yes Name of Caregiver: Yes- Lindsay Transport at Discharge: Transportation Arrangements: To Be Determined Needs Prior to Discharge: Needs Prior to Discharge: To Be Determined;OT/PT Evaluation Post-Acute Discharge Plan: SW spoke with pt's daughter Lindsay via phone to complete initial. Pt remains intubated and unable to participate in stroke depression screen. Pt lives in an apartment with Lindsay. 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 Pt will need PT/OT once able to participate. Of note, pt's is currently admitted to the hospital. She is from [facility]. +PCP, +Rx at [facility]. SIGNATURE: AMANDA Martinez PATIENT NAME: Jonathon Perales DATE: April 17, 2024 TIME: 3:35 PM CONTACT #: [phone] [facility] 04-17-2024 Note HNO ID: [id number] Author: JOANIE LARSON APRN.CNP Service: Neurology ICU Author Type: Nurse Practitioner Type: Progress Notes Filed: 04/17/2024 11:41 Note Text: SERVICE DATE: 04/17/2024 SERVICE TIME: 11:41 AM NEURO ICU PROGRESS NOTE DATE OF ADMISSION: 04/15/2024 Subjective Hospital Course: 04/17: Remaining intubated until MRI. SBT this AM. Events Since Last Note: See hospital course. Objective BP 127/63 Pulse 64 Temp 37.8 ?C (100 ?F) (Axillary) Resp 18 Ht 170.2 cm (5' 7") Wt 68.6 kg (151 lb 3.8 oz) SpO2 98% BMI 23.69 kg/m? Weight change: Neuro: Examined on propofol. Restless. Eyes open spontaneously. PERRL, 3mm brisk. Attends to provider. Follows simple commands. RUE/RLE 02/20. LUE/LLE: 12/23. CV: NSR on tele. Pulm: CTA on MV. Ventilator Mode A/C PRVC or VC+ or APVcmv (PC-CMVa) Ventilator Respiratory Rate (BPM) 16 Tidal Volume (mL) 400 PEEP (cm H2O) 5 FiO2 (%) 30 Pressure Support (cm H2O) 5 GI/: Abdomen soft, non-distended. Skin/Extremities: Edema- No Peripheral pulses- Present all extremities Wounds/Drsgs- See RN documenation Breakdown- No Diagnostic tests reviewed for today's visit: Most recent labs and imaging results. Lines, Drains, and Airways Line Duration Peripheral 04/15/242123 Left Forearm 18 Gauge 1 day Peripheral 04/15/242123 Right Forearm 18 Gauge 1 day Peripheral 04/16/24 0100 [facility] Short Left Hand 22 Gauge 1 day Drain Duration GI/ Feeding 04/16/24 [facility] Gastric Mouth 1 day External Collection Device 04/16/24 1700 <1 day Airway Duration Airway Endotracheal Tube 04/15/24 2245 1 day ICU Checklist Last Documented/Reviewed time: 04/17/2024 11:30 AM ICU Consent Complete?: No -------- A= Assess, Prevent, Manage Pain Pain adequately controlled?: Yes C= Choice of Sedation and Analgesia RASS at Goal?: Yes B= Both Spontaneous Awakening and Breathing Trials Ventilator: Present Spontaneous Awakening?: Yes Spontaneous Breathing?: Yes Head of Bed > 30 degrees?: Yes Mouth Care?: Yes D= Delirium: Assess, Prevent and Manage ICU Delirium Status: CAM Negative - no action required Sleep adequate?: Yes Restraint Status: Present, will maintain Restraint Maintain Reason: Maintain safety of patient E= Early Mobility/Excercise ICU Mobility: ICU Mobility-Pt Has Been Out of Bed: No - Specify, PT Consult - Specify ""NO/MINIMAL TURN"" Order?: NA F= Family Engagement and Empowerment ICU plan of care visit at bedside in last 24 hours: Yes, Provider, RN, Patient/ designee ICU Disposition: ICU Disposition- Is Patient Clinically Ready to Transfer to [facility] or SDU?: No Discharge Planning: To be determined Prevention: Line Status: None Conley Status: None Pressure Injury Status: None GI/Stress Ulcer Prophylaxis: PPI Nutrition is at Goal: Yes VTE Prophylaxis: Chemoprophylaxis: Heparin SQ Mechanical Prophylaxis: Knee high SCD PERSONAL INVOLVEMENT IN CARE: Reviewing initiation, responses and adjustments to therapies, coordination of care, and updating family with Staff Physician, Dr. Vaughn. Assessment AND Plan 73yo male with PMHx significant for stroke, CAD, aortic valve replacement, HTN, HPL, CKD, and JAIRO; who developed stroke symptoms while visiting his who is admitted to the hospital. LKW 04/15. iNIHSS 23. CT early ischemia in R insula. 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 TNK given at 2158. Pt s/p EVT tici [address] Cantor. Pt remains intubated post procedure. Aggrastat gtt per Dr Cantor. Pt admitted to NSICU for further management. Neurology * Acute ischemic right MCA stroke (HCC)- (present on admission) P/w left hemiplegia, aphasia, and decreased sensation [facility] 04/[address] early ischemia in R insula. 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 Treated with TNK at 2158 S/p EVT Tici 3 PLAN: - Post tPA/TNK protocol - Post EVT protocol - Neuro checks per protocol, then q1h - SBP 90-140 - PRN labetalol/hydralazine - EKG, Echo, Cardiac enzymes - Secondary prevention: Start Atorvastatin 80 mg daily - DAPT: ASA 81 mg daily + Plavix 75 mg daily - DVT PPx: IPCs, SQ Heparin - MRI ordered routine to assess stroke burden - PT/OT/Speech - Stroke education Pulmonary Acute respiratory failure (HCC) Remains intubated on vent WTE CXR pending On mechanically assisted ventilation (HCC) PLAN: - VAP bundle - WTE Medication and Non-Pharmacologic VTE Prophylaxis/Anticoagulants Anticoagulant AND Antiplatelet Medications (From admission, onward) Start Dose Route Frequency Last Action Ordered Stop 04/17/24 0930 heparin 5,000 Units injection 5,000 Units SUBCUTANEOUS EVERY 8 HOURS Ordered 04/17/24 0922 -- 04/17/24 0900 clopidogrel 75 mg tab(s) (PLAVIX) 75 mg PO/FT DAILY Given, 04/17 0804/16/24 1155 -- 04/17/24 09 asp (more content not included)... [facility] 04-16-2024 Note HNO ID: [id number] Author: MENA HARTMAN RPh Service: Pharmacy Author Type: Pharmacist Type: Plan of Care Filed: 04/28/2024 08:49 Note Text: PHARMACY MEDICATION REVIEW Patient Name: Jonathon Perales : 1950 The following medications were updated within the [facility] medication list: Medications ADDED to [facility] medication list clopidogrel (PLAVIX) 75 mg tablet Take 1 tablet by mouth once daily. ezetimibe (ZETIA) 10 mg tablet Take 10 mg by mouth daily at bedtime. lisinopril (ZESTRIL) 10 mg tablet Take 1 tablet by mouth once daily. loratadine (CLARITIN) 10 mg tablet Take 1 tablet by mouth once daily. metoprolol tartrate, short acting, (LOPRESSOR) 25 mg tablet Take 0.5 tablets by mouth two times a day. pantoprazole DR (PROTONIX) 40 mg tablet Take 1 tablet by mouth once daily. predniSONE (DELTASONE) 50 mg Take 25 mg by mouth once daily. venlafaxine (EFFEXOR) 75 mg tablet Take 75-150 mg by mouth two times a day. 75 mg in morning and 150 mg at bedtime aspirin, enteric coated (ASPIRIN, ENTERIC COATED) 81 mg EC tablet Take 81 mg by mouth once daily. cholecalciferol (VITAMIN D-3) 50 mcg (2,000 unit) tablet Take 2,000 Units by mouth once daily. cyanocobalamin (VITAMIN B-12) 1,000 mcg tab Take 1,000 mcg by mouth once daily. Medications CHANGED on [facility] medication list Medications REMOVED from [facility] medication list Additional comments: Verified medication information with e-scripts/dispense report and chart review. Called [facility] to confirm medications. Confirmed medications with family and prescription bottles. Family and prescription stated patient taking Plavix, Zetia, lisinopril, Claritin, metoprolol tart, pantoprazole, prednisone, Effexor, aspirin, Vit D, and Vit B12 - added to med list. Family stated patient not taking Sinemet - Called [facility] has not been filled since 08/05/2023 for 90 day. [facility] confirmed atorvastatin and Wellbutrin have not been fill since 08/31/2023. Patient on 4 day short course of prednisone cutting 50 mg in half started 04/15/2024 (family stated took whole 50 mg by mistake). Required follow up actions for nursing: None The below information represents the best possible medication history: Yes Medication history completed by: Language Specialist: Christine Do (Scraper Hand) Source of history: Family: Reliability of source: Appears reliable, clearly identified: Medication name, Medication dose, Medication route, and Medication frequency and Spoke with daughterLindsay [phone] , Pharmacy records: e-scripts/dispense report, [facility] [phone] AND [phone] Prescription bottles, and [facility] records Medication nonadherence identified: No barriers noted Reconciliation completed: Yes Completed by: Mena Hartman, PharmD, [facility] Unit Based Pharmacist Ext: [phone] All [facility] [employer] medications addressed by LIP and Medications intentionally held at admission: all prior to admission medications held - ordered correctly inpatient Patient interested in Bedside Delivery Services or using OP Pharmacy at discharge? Unable to assess Preferred outpatient pharmacy: [id number] - [place] [address] - [address] [facility] - [phone] Allergies: Percocet [Oxycodone* Mental Status Change Prior to Admission Medications Prescriptions Last Dose Informant Patient Reported? Taking? aspirin, enteric coated (ASPIRIN, ENTERIC COATED) 81 mg EC tablet Yes Yes Sig: Take 81 mg by mouth once daily. cholecalciferol (VITAMIN D-3) 50 mcg (2,000 unit) tablet Yes Yes Sig: Take 2,000 Units by mouth once daily. clopidogrel (PLAVIX) 75 mg tablet Yes Yes Sig: Take 1 tablet by mouth once daily. cyanocobalamin (VITAMIN B-12) 1,000 mcg tab Yes Yes Sig: Take 1,000 mcg by mouth once daily. ezetimibe (ZETIA) 10 mg tablet Yes Yes Sig: Take 10 mg by mouth daily at bedtime. lisinopril (ZESTRIL) 10 mg tablet Yes Yes Sig: Take 1 tablet by mouth once daily. loratadine (CLARITIN) 10 mg tablet Yes Yes Sig: Take 1 tablet by mouth once daily. metoprolol tartrate, short acting, (LOPRESSOR) 25 mg tablet Yes Yes Sig: Take 0.5 tablets by mouth two times a day. pantoprazole DR (PROTONIX) 40 mg tablet Yes Yes Sig: Take 1 tablet by mouth once daily. predniSONE (DELTASONE) 50 mg Yes Yes Sig: Take 25 mg by mouth once daily. venlafaxine (EFFEXOR) 75 mg tablet Yes Yes Sig: Take 75-150 mg by mouth two times a day. 75 mg in morning and 150 mg at bedtime Facility-Administered Medications: None Christine Do (Scraper Hand)[id number] 04/16/2024 I have reviewed and agree with the medication history note completed by the medication historian as documented above. All medications reviewed and reconciled appropriately. Mena Hartman, ClarisaD, [facility] Nursing Unit Based Pharmacist Ext: [phone] [facility] 04-16-2024 Note HNO ID: [id number] Author: RADHA MALHOTRA MD Service: ? Author Type: Fellow Type: Progress Notes Filed: 04/15/2024 22:34 Note Text: TELESTROKE DOCUMENTATION Name: Jonathon Perales : 1950 Referring Site: [facility] Referring Provider: ED staff Last Known Well (Date/Time): 04/15/241929 Neurologist Callback (Date/Time): 04/15/242118 Chief Complaint: R MCA syndrome HPI: 73 year old male,with hx of prosthetic valve, no AC, on DAPT, good baseline, visited hospitalized at [place] today, sudden collapse with left sided weakness. 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 NIHSS 23. CT early ischemia in R insula. 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 TNK given at 2157. EVT planned by Dr. Cantor. Patient was agitated causing BP to spike to 220s after TNK so precedex/ativan given. BP went to 170s afterwards. Going to EVT. Stroke Risk Factors None Current Anticoagulant Not Applicable BP: 170/88 NIHSS Telestroke Type - Patient location (ED or Inpatient): ED - Video Neurologist Performed Total Score: 23 Arrival Date Telestroke Site: 04/15/24 Arrival Time Telestroke Site: 2101 NIHSS Performed Date: 04/15/24 NIHSS Performed Time: 2124 LOC: 0 LOC Questions: 2 LOC Commands: 0 Best Gaze: 0 Visual: 2 Facial Palsy: 2 Motor Left Arm: 4 Motor Right Arm: 0 Motor Left Le Motor Right Le Limb Ataxia: 0 Sensory: 2 Best Language: 3 Dysarthria: 2 Extinction and Inattention: [address] Imaging reviewed, POSITIVE abnormal finding Abnormal Finding Details (Specify): Early ischemia R insula CTA Imaging reviewed, POSITIVE large vessel occlusion or severe stenosis seen Vessel Occlusion/Stenosis Details (Specify): R ICA and M1 occlusion Summary Suspected ACUTE ischemic stroke IV Thrombolysis Candidate Window: Last Known Well between 0-4.5 hours IV Thrombolysis Exclusion Criteria: Negative for ALL Exclusion Criteria IV Thrombolysis Additional Exclusion Criteria: Negative for ALL Additional Exclusion Criteria IV Thrombolysis Recommended: Yes, I have explained the reason(s) why I believe the patient is having an acute stroke that would benefit from IV Thrombolysis. I have explained the risks, benefits, and alternatives with the patient and/or the family members. All questions answered. Agreement to proceed with IV Thrombolysis treatment given by: Other (Specify) Emergency IV Thrombolysis Medication Given: Tenecteplase IV Thrombolysis Bolus (Date) 04/15/24 IV Thrombolysis Bolus (Time) 2157 LKW to IV Thrombolysis (minutes) 148 DOOR to IV Thrombolysis (minutes) 56 Neuro Callback to IV Thrombolysis (minutes) 39 NIHSS performed to IV Thrombolysis (minutes) 33 Factors impacting time of IV Thrombolysis administration (Select all that apply): Care-team unable to determine eligibility List reason(s) unable to determine eligibility: Unclear initially whether patient was taking warfarin for "valve issue", had to await stat INR, then clarified no AC Potential Candidate for Endovascular Therapy: Yes - NIHSS greater than or equal to 6 with POSITIVE large vessel occlusion Endovascular Treatment Plan: Neurology reviewed, Intervention is PLANNED Disposition/Billing (Physician is not in the same physical location as the patient) The patient will remain at the referring institution for further evaluation and management This case was discussed with stroke staff who was immediately available for direct supervision when needed.(List staff name): Dr. Hester Video: Case complexity: Complex More than 50 percent of the encounter was spent on coordinating care of the patient during a telestroke. Thank you for contacting the [facility]. I appreciate the opportunity for allowing me to participate in Jonathon Perales's care. Please feel free to contact me and[facility]or [facility] at any time if you have any further questions or need additional assistance. Radha Malhotra MD April 15, 2024 10:31 PM [facility] 04-15-2024 Note HNO ID: [id number] Author: JOSE HOOPER APRN.REPAIR CLERK Service: Anesthesiology Author Type: Nurse Closing Agent Type: Anesthesia Procedure Notes Filed: 04/15/2024 22:59 Note Text: ANESTHESIOLOGY PROCEDURE NOTE Airway General Information Procedure Start Time/Medication Administration: 04/15/2024 10:45 PM Procedure End Time: 04/15/2024 10:48 PM Patient location during procedure: OR Timeout Performed Pre-procedure: timeout performed Consent Obtained: Yes Patient identity confirmed: arm band Staffing REPAIR CLERK: Jose Hooper APRN.REPAIR CLERK Performed by: REPAIR CLERK Indications and Patient Condition Indications for airway management: anesthesia Preoxygenated: yes anesthesia circuit Method: rapid sequence Final Airway Details Final airway type: endotracheal airway Final Endotracheal Airway: ETT Cuffed: yes Successful intubation technique: video laryngoscopy Devices used: intubating stylet and Gilbert Endotracheal tube insertion site: oral Blade size: #4 ETT size (mm): 8.0 Measured from: lips Measurement (cm): 21 Placement verified by: chest auscultation and capnometry Cormack-Lehane Classification: grade I - full view of glottis Number of attempts at approach: 1 Airway not difficult Comments C collar in place, maintained head and neck in neutral position SIGNATURE: Jose Hooper APRN.REPAIR CLERK PATIENT NAME: Jonathon Perales DATE: April 15, 2024 TIME: 10:56 PM CSN: [id number] [facility] 04-15-2024 Note HNO ID: [id number] Author: RADHA MALHOTRA MD Service: ? Author Type: Fellow Type: Progress Notes Filed: 04/15/2024 22:34 Note Text: TELESTROKE DOCUMENTATION Name: Jonathon Perales : 1950 Referring Site: [facility] Referring Provider: ED staff Last Known Well (Date/Time): 04/15/241929 Neurologist Callback (Date/Time): 04/15/242118 Chief Complaint: R MCA syndrome HPI: 73 year old male,with hx of prosthetic valve, no AC, on DAPT, good baseline, visited hospitalized at [place] today, sudden collapse with left sided weakness. 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 NIHSS 23. CT early ischemia in R insula. 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 TNK given at 2157. EVT planned by Dr. Cantor. Patient was agitated causing BP to spike to 220s after TNK so precedex/ativan given. BP went to 170s afterwards. Going to EVT. Stroke Risk Factors None Current Anticoagulant Not Applicable BP: 170/88 NIHSS Telestroke Type - Patient location (ED or Inpatient): ED - Video Neurologist Performed Total Score: 23 Arrival Date Telestroke Site: 04/15/24 Arrival Time Telestroke Site: 2101 NIHSS Performed Date: 04/15/24 NIHSS Performed Time: 2124 LOC: 0 LOC Questions: 2 LOC Commands: 0 Best Gaze: 0 Visual: 2 Facial Palsy: 2 Motor Left Arm: 4 Motor Right Arm: 0 Motor Left Le Motor Right Le Limb Ataxia: 0 Sensory: 2 Best Language: 3 Dysarthria: 2 Extinction and Inattention: [address] Imaging reviewed, POSITIVE abnormal finding Abnormal Finding Details (Specify): Early ischemia R insula CTA Imaging reviewed, POSITIVE large vessel occlusion or severe stenosis seen Vessel Occlusion/Stenosis Details (Specify): R ICA and M1 occlusion Summary Suspected ACUTE ischemic stroke IV Thrombolysis Candidate Window: Last Known Well between 0-4.5 hours IV Thrombolysis Exclusion Criteria: Negative for ALL Exclusion Criteria IV Thrombolysis Additional Exclusion Criteria: Negative for ALL Additional Exclusion Criteria IV Thrombolysis Recommended: Yes, I have explained the reason(s) why I believe the patient is having an acute stroke that would benefit from IV Thrombolysis. I have explained the risks, benefits, and alternatives with the patient and/or the family members. All questions answered. Agreement to proceed with IV Thrombolysis treatment given by: Other (Specify) Emergency IV Thrombolysis Medication Given: Tenecteplase IV Thrombolysis Bolus (Date) 04/15/24 IV Thrombolysis Bolus (Time) 2158 LKW to IV Thrombolysis (minutes) 148 DOOR to IV Thrombolysis (minutes) 56 Neuro Callback to IV Thrombolysis (minutes) 39 NIHSS performed to IV Thrombolysis (minutes) 33 Factors impacting time of IV Thrombolysis administration (Select all that apply): Care-team unable to determine eligibility List reason(s) unable to determine eligibility: Unclear initially whether patient was taking warfarin for "valve issue", had to await stat INR, then clarified no AC Potential Candidate for Endovascular Therapy: Yes - NIHSS greater than or equal to 6 with POSITIVE large vessel occlusion Endovascular Treatment Plan: Neurology reviewed, Intervention is PLANNED Disposition/Billing (Physician is not in the same physical location as the patient) The patient will remain at the referring institution for further evaluation and management This case was discussed with stroke staff who was immediately available for direct supervision when needed.(List staff name): Dr. Hester Video: Case complexity: Complex More than 50 percent of the encounter was spent on coordinating care of the patient during a telestroke. Thank you for contacting the [facility]. I appreciate the opportunity for allowing me to participate in Jonathon Perales's care. Please feel free to contact me and/or the [facility] at any time if you have any further questions or need additional assistance. Radha Malhotra MD April 15, 2024 10:31 PM [facility] 04-15-2024 History of Present illness Narrative TELESTROKE DOCUMENTATION Name: Jonathon Perales : 1950 Referring Site: [facility] Referring Provider: ED staff Last Known Well (Date/Time): 04/15/241929 Neurologist Callback (Date/Time): 04/15/242118 Chief Complaint: R MCA syndrome HPI: 73 year old male,with hx of prosthetic valve, no AC, on DAPT, good baseline, visited hospitalized at [place] today, sudden collapse with left sided weakness. 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 NIHSS 23. CT early ischemia in R insula. 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 TNK given at 2157. EVT planned by Dr. Cantor. Patient was agitated causing BP to spike to 220s after TNK so precedex/ativan given. BP went to 170s afterwards. Going to EVT. Stroke Risk Factors None Current Anticoagulant Not Applicable BP: 170/88 NIHSS Telestroke Type - Patient location (ED or Inpatient): ED - Video Neurologist Performed Total Score: 23 Arrival Date Telestroke Site: 04/15/24 Arrival Time Telestroke Site: 2101 NIHSS Performed Date: 04/15/24 NIHSS Performed Time: 2124 LOC: 0 LOC Questions: 2 LOC Commands: 0 Best Gaze: 0 Visual: 2 Facial Palsy: 2 Motor Left Arm: 4 Motor Right Arm: 0 Motor Left Le Motor Right Le Limb Ataxia: 0 Sensory: 2 Best Language: 3 Dysarthria: 2 Extinction and Inattention: [address] Imaging reviewed, POSITIVE abnormal finding Abnormal Finding Details (Specify): Early ischemia R insula CTA Imaging reviewed, POSITIVE large vessel occlusion or severe stenosis seen Vessel Occlusion/Stenosis Details (Specify): R ICA and M1 occlusion Summary Suspected ACUTE ischemic stroke IV Thrombolysis Candidate Window: Last Known Well between 0-4.5 hours IV Thrombolysis Exclusion Criteria: Negative for ALL Exclusion Criteria IV Thrombolysis Additional Exclusion Criteria: Negative for ALL Additional Exclusion Criteria IV Thrombolysis Recommended: Yes, I have explained the reason(s) why I believe the patient is having an acute stroke that would benefit from IV Thrombolysis. I have explained the risks, benefits, and alternatives with the patient and/or the family members. All questions answered. Agreement to proceed with IV Thrombolysis treatment given by: Other (Specify) Emergency IV Thrombolysis Medication Given: Tenecteplase IV Thrombolysis Bolus (Date) 04/15/24 IV Thrombolysis Bolus (Time) 2157 LKW to IV Thrombolysis (minutes) 148 DOOR to IV Thrombolysis (minutes) 56 Neuro Callback to IV Thrombolysis (minutes) 39 NIHSS performed to IV Thrombolysis (minutes) 33 Factors impacting time of IV Thrombolysis administration (Select all that apply): Care-team unable to determine eligibility List reason(s) unable to determine eligibility: Unclear initially whether patient was taking warfarin for "valve issue", had to await stat INR, then clarified no AC Potential Candidate for Endovascular Therapy: Yes - NIHSS greater than or equal to 6 with POSITIVE large vessel occlusion Endovascular Treatment Plan: Neurology reviewed, Intervention is PLANNED Disposition/Billing (Physician is not in the same physical location as the patient) The patient will remain at the referring institution for further evaluation and management This case was discussed with stroke staff who was immediately available for direct supervision when needed.(List staff name): Dr. Hester Video: Case complexity: Complex More than 50 percent of the encounter was spent on coordinating care of the patient during a telestroke. Thank you for contacting the [facility]. I appreciate the opportunity for allowing me to participate in Jonathon Perales's care. Please feel free to contact me and/or the [facility] at any time if you have any further questions or need additional assistance. Radha Malhotra MD April 15, 2024 10:31 PM documented in this encounter [facility] 04-15-2024 Note HNO ID: [id number] Author: RAMIREZ CANTOR MD Service: Neuroendovascular Intervention Author Type: Physician Type: Progress Notes Filed: 04/15/2024 22:30 Note Text: Update: After discussing the nature of the procedure the Diagnostic Cerebral Angiogram with the intent to perform right ICA - MCA mechanical thrombectomy- and all the related necessary procedures including possible coiling, stenting, embolization and mechanical and/or chemical thrombectomy with the patient's daughter over the phone. The nature of the patient's condition, the nature and purpose of the procedure, anticipated benefits, possible alternative methods of treatment, known risks involved in either the procedure or of not having the procedure, if any, and possible consequences and complications have been explained. The risks including but not limited to: Bleeding, groin hematoma, infection, injury to femoral or radial artery, loss of leg or arm, retroperitoneal bleeding, stroke, seizure, head bleed, coma, , myocardial infarction, renal dysfunction, aortic dissection, rupture of cerebral blood vessel or cerebral aneurysm resulting in brain bleed and , recurrence, residual and inability to do the procedure. The patient's daughter agreed to move forward with the procedure and the consent form was signed over the phone. All questions were answered. Ramirez Cantor MD. Neuro Interventional Surgery April 15, 2024 [facility] 04-15-2024 History of Present illness Narrative ED Follow Up: Patient discharged from [facility] ED on 04/14/24. Left message for patient to call office to schedule ed follow up appointment. Tanya Whiting LPN documented in this encounter [facility] 04-14-2024 Note 1. Moderate degenera tive changes in the mid and lower lumbar spine. These have progressed significantly when compared to the previous study (10 years prior). 2. No compression fractures. 3. No acute radiographic findings. LEFT HIP: AP view of the pelvis and AP and frog-leg lateral views of the left hip are provided. The examination is compared to a previous study dated 02/19/2014. FINDINGS: Mild symmetric degenerative changes are noted about both hips. There is no fracture or dislocation. The sacroiliac joints are symmetric bilaterally without focal abnormality. The bone mineralization is within normal limits. IMPRESSION: 1. Mild symmetric degenerative changes. 2. No acute findings. Report Dictated on Electronically Signed By: Jesse Steele MD Electronically Signed Date/Time: 04/14/2024 12:49 AM EDT [facility] 04-14-2024 Note 1. Moderate degenera tive changes in the mid and lower lumbar spine. These have progressed significantly when compared to the previous study (10 years prior). 2. No compression fractures. 3. No acute radiographic findings. LEFT HIP: AP view of the pelvis and AP and frog-leg lateral views of the left hip are provided. The examination is compared to a previous study dated 02/19/2014. FINDINGS: Mild symmetric degenerative changes are noted about both hips. There is no fracture or dislocation. The sacroiliac joints are symmetric bilaterally without focal abnormality. The bone mineralization is within normal limits. IMPRESSION: 1. Mild symmetric degenerative changes. 2. No acute findings. Report Dictated on Electronically Signed By: Jesse Steele MD Electronically Signed Date/Time: 04/14/2024 12:49 AM EDT [facility] 04-13-2024 Hospital Discharge instructions Russ Castro MD - 04/13/2024 11:47 PM EDT Please return to the Emergency Department immediately for new or worsening symptoms or any new concerns, this includes numbness or weakness throughout the arms or legs, inability to urinate or have a bowel movement or incontinence, fever or chills, abdominal pain, or any other new symptoms or concerns. Please complete course of prednisone as prescribed. Please follow-up with [your primary care doctor] within the next [5-7] days Please follow-up with orthopedic surgery/spine surgery in the next 5 to 7 days. Follow-up is required for further evaluation management. You may take ibuprofen and Tylenol as needed for discomfort according to package instructions. The following attachments cannot be sent through Care Everywhere.[facility] ED ([place])Low Back Pain Discharge Instructions ([place]izen [place])documented in this encounter [facility] 04-13-2024 Emergency department Note Emergency Department Encounter [facility] EMERGENCY DEPT Patient: Jonathon Perales : 1950 Date of Evaluation: 04/13/2024 ED Provider: Russ Castro MD CHIEF COMPLAINT: Left low back pain Chief Complaint Patient presents with Back Pain Hip Pain Patient coming in with back pain and left hip pain. Patient denies any injury. Was seen for the same thing last week and was to follow up Saturday with PCP but pain worsened today. 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 HPI: Jonathon Perales is a 73 y.o. male with PMH per EMR including hyperlipidemia, hypertension, presents with concern for left low back pain. Patient reports 1 week ago he twisted which resulted in acute pain in the left low back radiation to the left hip and occasional shooting down his left leg, he reports symptoms are persistent, worse with nonspecific positional change, he denies associated nausea vomiting, fever chills, chest pain, shortness of breath, neck pain, pain elsewhere through the back, abdominal pain, dysuria hematuria or frequency, numbness or weakness or pain throughout the extremities otherwise. Patient denies history of intravenous drug use ever, fever, recent spine surgery or procedure, urinary incontinence or retention, alcohol abuse, diabetes, multiple visits for the symptoms. Patient denies antiplatelet or anticoagulation. REVIEW OF SYSTEMS: Pertinent positives and negatives as per HPI. HISTORIES: PAST MEDICAL HISTORY: as per HPI SOCIAL HISTORY: As per HPI MEDICATIONS: Nursing notes and EMR reviewed ALLERGIES: Nursing notes and EMR reviewed PHYSICAL EXAM: Vital signs: reviewed General: no apparent discomfort, well appearing Eyes: no conjunctival injection, eyes tracking HEENT: airway patent, mucous membranes moist Neck: No nuchal rigidity, no limitation range of motion including flexion and extension, no neck tenderness Cardiovascular: regular rhythm, normal rate, symmetrical DP and PT pulses, bilateral feet warm and well-perfused, bilateral hands warm and well-perfused Respiratory: non-labored breathing, breath sounds clear Gastrointestinal: soft, non-distended, non-tender to deep palpation throughout, no rigidity or guarding back: Reproducible tenderness in the left lumbar paraspinal region without palpable deformity, no rash or skin lesion, no midline thoracic or lumbar spinal tenderness step-offs or deformities Extremities: no obvious deformity, non edematous Integumentary: warm, dry Neurologic: Alert and oriented, nonslurred speech, answering questions appropriately Sensory: Back of head and neck [intact] Inner thigh [intact bilaterally] Throughout hands [intact bilaterally] Throughout feet [intact bilaterally] Motor: Knee extension [intact bilaterally] Knee flexion [intact bilaterally] Ankle dorsiflexion [intact bilaterally] Point great toe up [intact bilaterally] Plantar flex toes [intact bilaterally] Shoulder abduction [intact bilaterally] Elbow flexion [intact bilaterally] Elbow extension [intact bilaterally] Wrist flexion [intact bilaterally] Wrist extension [intact bilaterally] 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 male who presents as above left low back pain with radiation to the left hip, and occasionally down the left leg, arrives afebrile with reassuring vitals, well-appearing, neurovascular exam benign, abdominal exam benign, presentation concerning for sciatica, herniated disc, lesser suspicion for pathologic fracture, clinically I do not suspect acute spinal cord compressive process including cauda equina, occult spinal infectious process, acute vascular process, ureterolithiasis urinary tract infection, or acute intra-abdominal process. Discussed management, patient agrees to obtain L-spine and left hip/pelvis x-ray to evaluate for fracture, discussed risks and benefit of treatment with steroids, patient elects to initiate course of prednisone, apply lidocaine patch, and treat with Toradol. Left hip x-ray obtained, interpreted per radiologist mild symmetric degenerative change, no acute findings L spine x-ray obtained, interpreted per radiologist moderate degenerative change in the mid and lower lumbar spine progressed significantly compared to prior study 10 years prior, no compression fracture Patient and family informed of results, discussed further management, they are in agreement with plan for discharge, recommend mandatory PCP follow-up in the next 2 to 5 days for close monitoring being treated with steroid, as well as further symptom control, recommend orthospine follow-up in 3 to 5 days for further evaluation and management, follow-up is required strict return precautions were discussed, recommend NSAIDs for discomfort, lidocaine patch and prednisone prescriptions provided, patient and family are with plan, stable for discharge. DIAGNOSIS: Acute left-sided low back pain with left-sided sciatica DISPOSITION: Discharge PRESCRIPTIONS: New Prescriptions LIDOCAINE 4 % PATCH Place 1 patch on the skin daily for 10 days. PREDNISONE (DELTASONE) 50 MG TABLET Take 0.5 tablets (25 mg) by mouth daily for 4 days. First dose provided in ED, start tomorrow Comment: Please note this report has been produced using speech recognition software and may contain errors related to that system including errors in grammar, punctuation, and spelling, as well as words and phrases that may be inappropriate. If there are any questions or concerns please feel free to contact the dictating provider for clarification. Russ Castro MD Acute Care [facility] Russ Castro MD 04/14/24 0218 documented in this encounter [facility] 04-13-2024 Physician Emergency department Note Emergency Department Encounter [facility] EMERGENCY DEPT Patient: Jonathon Perales : 1950 Date of Evaluation: 04/13/2024 ED Provider: Russ Castro MD CHIEF COMPLAINT: Left low back pain Chief Complaint Patient presents with Back Pain Hip Pain Patient coming in with back pain and left hip pain. Patient denies any injury. Was seen for the same thing last week and was to follow up Saturday with PCP but pain worsened today. 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 HPI: Jonathon Perales is a 73 y.o. male with PMH per EMR including hyperlipidemia, hypertension, presents with concern for left low back pain. Patient reports 1 week ago he twisted which resulted in acute pain in the left low back radiation to the left hip and occasional shooting down his left leg, he reports symptoms are persistent, worse with nonspecific positional change, he denies associated nausea vomiting, fever chills, chest pain, shortness of breath, neck pain, pain elsewhere through the back, abdominal pain, dysuria hematuria or frequency, numbness or weakness or pain throughout the extremities otherwise. Patient denies history of intravenous drug use ever, fever, recent spine surgery or procedure, urinary incontinence or retention, alcohol abuse, diabetes, multiple visits for the symptoms. Patient denies antiplatelet or anticoagulation. REVIEW OF SYSTEMS: Pertinent positives and negatives as per HPI. HISTORIES: PAST MEDICAL HISTORY: as per HPI SOCIAL HISTORY: As per HPI MEDICATIONS: Nursing notes and EMR reviewed ALLERGIES: Nursing notes and EMR reviewed PHYSICAL EXAM: Vital signs: reviewed General: no apparent discomfort, well appearing Eyes: no conjunctival injection, eyes tracking HEENT: airway patent, mucous membranes moist Neck: No nuchal rigidity, no limitation range of motion including flexion and extension, no neck tenderness Cardiovascular: regular rhythm, normal rate, symmetrical DP and PT pulses, bilateral feet warm and well-perfused, bilateral hands warm and well-perfused Respiratory: non-labored breathing, breath sounds clear Gastrointestinal: soft, non-distended, non-tender to deep palpation throughout, no rigidity or guarding back: Reproducible tenderness in the left lumbar paraspinal region without palpable deformity, no rash or skin lesion, no midline thoracic or lumbar spinal tenderness step-offs or deformities Extremities: no obvious deformity, non edematous Integumentary: warm, dry Neurologic: Alert and oriented, nonslurred speech, answering questions appropriately Sensory: Back of head and neck [intact] Inner thigh [intact bilaterally] Throughout hands [intact bilaterally] Throughout feet [intact bilaterally] Motor: Knee extension [intact bilaterally] Knee flexion [intact bilaterally] Ankle dorsiflexion [intact bilaterally] Point great toe up [intact bilaterally] Plantar flex toes [intact bilaterally] Shoulder abduction [intact bilaterally] Elbow flexion [intact bilaterally] Elbow extension [intact bilaterally] Wrist flexion [intact bilaterally] Wrist extension [intact bilaterally] 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 male who presents as above left low back pain with radiation to the left hip, and occasionally down the left leg, arrives afebrile with reassuring vitals, well-appearing, neurovascular exam benign, abdominal exam benign, presentation concerning for sciatica, herniated disc, lesser suspicion for pathologic fracture, clinically I do not suspect acute spinal cord compressive process including cauda equina, occult spinal infectious process, acute vascular process, ureterolithiasis urinary tract infection, or acute intra-abdominal process. Discussed management, patient agrees to obtain L-spine and left hip/pelvis x-ray to evaluate for fracture, discussed risks and benefit of treatment with steroids, patient elects to initiate course of prednisone, apply lidocaine patch, and treat with Toradol. Left hip x-ray obtained, interpreted per radiologist mild symmetric degenerative change, no acute findings L spine x-ray obtained, interpreted per radiologist moderate degenerative change in the mid and lower lumbar spine progressed significantly compared to prior study 10 years prior, no compression fracture Patient and family informed of results, discussed further management, they are in agreement with plan for discharge, recommend mandatory PCP follow-up in the next 2 to 5 days for close monitoring being treated with steroid, as well as further symptom control, recommend orthospine follow-up in 3 to 5 days for further evaluation and management, follow-up is required strict return precautions were discussed, recommend NSAIDs for discomfort, lidocaine patch and prednisone prescriptions provided, patient and family are with plan, stable for discharge. DIAGNOSIS: Acute left-sided low back pain with left-sided sciatica DISPOSITION: Discharge PRESCRIPTIONS: New Prescriptions LIDOCAINE 4 % PATCH Place 1 patch on the skin daily for 10 days. PREDNISONE (DELTASONE) 50 MG TABLET Take 0.5 tablets (25 mg) by mouth daily for 4 days. First dose provided in ED, start tomorrow Comment: Please note this report has been produced using speech recognition software and may contain errors related to that system including errors in grammar, punctuation, and spelling, as well as words and phrases that may be inappropriate. If there are any questions or concerns please feel free to contact the dictating provider for clarification. Russ Castro MD Acute Care [facility] Russ Castro MD 04/14/248 [facility] 04-10-2024 Telephone encounter Note Reason for call: Patient calling with concern for severe back pain. States pain is located left upper back and radiates down. Outcome: Recommendation to go to the ED now, call 911 if needed. Patient verbalized understanding and agreeable to plan. Reason for Disposition [1] SEVERE back pain (e.g., excruciating) AND [2] sudden onset AND [3] age > 60 years Protocols used: Back [id number] [facility] 04-10-2024 Miscellaneous Notes Reason for call: Patient calling with concern for severe back pain. States pain is located left upper back and radiates down. Outcome: Recommendation to go to the ED now, call 911 if needed. Patient verbalized understanding and agreeable to plan. Reason for Disposition [1] SEVERE back pain (e.g., excruciating) AND [2] sudden onset AND [3] age > 60 years Protocols used: Back [id number] documented in this encounter [facility] 04-09-2024 Telephone encounter Note No Show Documentation Jonathon Perales no showed for an appointment on 04/08/24 with Gary Matute APRN.CNP at 11a. He was scheduled for Left hip pain. I called and spoke with the patient regarding his missed appointment. Jonatohn stated the reason that he missed his appointment was because na . Resources discussed/offered to patient: left voicemail for pt to reschedule and letter No show determined to be fault of patient: Yes This is the patients second no show in the last 12 months. Patient was rescheduled for na. Letter mailed : Yes Is this the Third or Fourth "No Show"? No Paris Yu April 09, 2024 8:[address] [facility] 04-09-2024 Miscellaneous Notes No Show Documentation Jonathon Linnrashaadmehdi no showed for an appointment on 04/08/24 with Gary Matute APRN.CNP at 11a. He was scheduled for Left hip pain. I called and spoke with the patient regarding his missed appointment. Jonathon stated the reason that he missed his appointment was because na . Resources discussed/offered to patient: left voicemail for pt to reschedule and letter No show determined to be fault of patient: Yes This is the patients second no show in the last 12 months. Patient was rescheduled for na. Letter mailed : Yes Is this the Third or Fourth "No Show"? No Paris Yu April 09, 2024 8:46 AM documented in this encounter [facility] 03-18-2024 Telephone encounter Note Patient/Patient's Pharmacy is requesting the following refill. Patient's last appointment: 01/30/2024. Next appointment: 06/15/2024 . Requested Prescriptions Pending Prescriptions Disp Refills loratadine (CLARITIN) 10 mg tablet [Pharmacy Med Name: Loratadine Oral Tablet 10 MG] 30 tablet 0 Sig: take one tablet by mouth once a day Patient Phone numbers: [phone] (home) Request is for script(s) to be escript to pharmacy. Ayala Lofton MA [facility] 03-18-2024 Miscellaneous Notes Patient/Patient's Pharmacy is requesting the following refill. Patient's last appointment: 01/30/2024. Next appointment: 06/15/2024 . Requested Prescriptions Pending Prescriptions Disp Refills loratadine (CLARITIN) 10 mg tablet [Pharmacy Med Name: Loratadine Oral Tablet 10 MG] 30 tablet 0 Sig: take one tablet by mouth once a day Patient Phone numbers: [phone] (home) Request is for script(s) to be escript to pharmacy. Ayala Lofton MA documented in this encounter [facility] 01-30-2024 History of Present illness Narrative Images from the original note were not included. [facility] Primary [facility] [address] [id number] Date of Evaluation: 01/30/2024 Patient Name: Jonathon Perales : 1950 Chief Complaint: Patient presents with: Head Congestion Cough Sinus Problem Nursing Intake: Nursing Notes: Ayala Lofton MA 01/30/2024 2:45 PM Signed Jonathon Perales is a 73 year old male who presents for Head Congestion, Cough, and Sinus Problem for the last 5 days. Nyquil helps a little bit. no COVID testing Ayala Lofton MA Subjective Mr. Perales is a 73 year old male who presents with the following complaint(s): Sinus Problem This is a chronic problem. The current episode started in the past 7 days (ongoing for 5 days.). The problem has been gradually worsening. Associated symptoms include congestion and headaches (frontal.). Pertinent negatives include no chills, coughing, fever or sore throat. He has tried acetaminophen for the symptoms. Review of Systems Constitutional: Negative for chills and fever. HENT: Positive for congestion, postnasal drip, rhinorrhea, sinus pressure and sinus pain. Negative for sore throat. Respiratory: Negative for cough, chest tightness, shortness of breath and wheezing. Neurological: Positive for headaches (frontal.). 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 03/25/2018 CAD (coronary artery disease) Cataract Cerebellar stroke (HCC) CVA (cerebral vascular accident) (HCC) Depression ED (erectile dysfunction) Hiatal hernia 02/21/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 HTN (hypertension) Hyperlipidemia Kidney stone LVH (left ventricular hypertrophy) Need for SBE (subacute bacterial endocarditis) prophylaxis Bioprothestic AoV JAIRO (obstructive sleep apnea) S/P AVR bioprosthetic S/P CABG (coronary artery bypass graft) SVG-OM1 Seasonal allergic rhinitis TIA (transient ischemic attack) Tubular adenoma of colon 05/06/2002 Vitamin B12 deficiency Vitamin D deficiency PAST SURGICAL HISTORY Procedure Laterality Date CARDIAC CATH 01/2018 CORONARY ARTERY BYPASS GRAFT HX SVG-OM1 EGD WITH BIOPSY(S) 03/25/2018 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 Zazueta EGD WITH BIOPSY(S) 01/13/2013 Dr. 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 Everett F COLONOSCOPY WITH POLYPECTOMY 05/06/2002 tubular adenoma; chronic colitis; Dr. Garcia F COLONOSCOPY WITH POLYPECTOMY 12/08/2018 tubular adenoma; Dr. Zazueta SHX AORTIC VALVE REPLACEMENT Bioprosthetic valve FAMILY HISTORY Problem Relation Age of Onset Heart disease Mother Breast Cancer Mother other (back) Mother Heart disease Father Coronary Artery Disease Father Alcohol/Drug Father other (kidney) Father Breast Cancer Sister Hypertension Sister No Known Problems Sister Social History Tobacco Use Smoking status: Former Types: Cigars Quit date: 11/2022 Years since quittin.2 Smokeless tobacco: Never Vaping Use Vaping Use: Never used Substance Use Topics Alcohol use: No Drug use: No Current Outpatient Medications Medication Sig meclizine (ANTIVERT) 25 mg tab TAKE ONE TABLET BY MOUTH EVERY 6 HOURS NEEDED FOR DIZZINESS venlafaxine (EFFEXOR) 75 mg tablet Take 1 tablet in the morning and 2 tablets at bedtime. carbidopa-levodopa (SINEMET 25-100) 25-100 mg per tablet Take 1 tablet by mouth three times daily. metoprolol tartrate, short acting, (LOPRESSOR) 25 mg tablet Take 0.5 tablets by mouth twice daily. ezetimibe (ZETIA) 10 mg tablet Take 1 tablet by mouth daily at bedtime. pantoprazole DR (PROTONIX) 40 mg tablet Take 1 tablet by mouth once daily. lisinopril (ZESTRIL) 10 mg tablet Take 1 tablet by mouth once daily. buPROPion XL (WELLBUTRIN XL) 300 mg 24 hr tablet Take 1 tablet by mouth once daily at 6 am. atorvastatin (LIPITOR) 80 mg tablet Take 1 tablet by mouth daily at bedtime. ondansetron (ZOFRAN) 4 mg tablet TAKE 1 TO 2 TABLET BY MOUTH EVERY 8 HOURS IF NEEDED FOR NAUSEA clopidogrel (PLAVIX) 75 mg tablet Take 1 tablet by mouth once daily. acetaminophen (TYLENOL) 325 mg tablet Take 2 tablets by mouth every 6 hours as needed. cholecalciferol (VITAMIN D3) 50 mcg (2,000 unit) tablet Take 2,000 Units by mouth once daily. Cyanocobalamin 2,000 mcg TbER Take by mouth once daily. aspirin, enteric coated (ASPIRIN, ENTERIC COATED) 81 mg EC tablet Take 81 mg by mouth once daily. No current facility-administered medications for this visit. I have confirmed and edited as necessary the chief complaint, medications, past medical, family and social histories obtained by others. Objective BP 122/64 Pulse 103 Temp 97.2 Ht 5' 5" (1.65m) Wt 152 lb (68.9kg) SpO2 96[ra]% BMI 25.29 kg/(m^2). Physical Exam Constitutional: General: He is not in acute distress. Appearance: Normal appearance. He is not ill-appearing. HENT: Head: Normocephalic and atraumatic. Right Ear: There is no impacted cerumen. Left Ear: There is no impacted cerumen. Nose: Congestion present. No rhinorrhea. Mouth/Throat: Pharynx: No oropharyngeal exudate or posterior oropharyngeal erythema. Eyes: Extraocular Movements: Extraocular movements intact. Pupils: Pupils are equal, round, and reactive to light. Cardiovascular: Rate and Rhythm: Normal rate and regular rhythm. Pulses: Normal pulses. Heart sounds: Normal heart sounds. No murmur heard. No friction rub. No gallop. Pulmonary: Effort: Pulmonary effort is normal. Breath sounds: Normal breath sounds. Abdominal: Palpations: Abdomen is soft. Musculoskeletal: General: Normal range of motion. Cervical back: Normal range of motion and neck supple. Skin: General: Skin is warm and dry. Neurological: Mental Status: He is alert and oriented to person, place, and time. Psychiatric: Mood and Affect: Mood normal. Behavior: Behavior normal. Thought Content: Thought content normal. Judgment: Judgment normal. Data Reviewed: No new labs ASSESSMENT/PLAN: 1. Acute non-recurrent pansinusitis - ICD9: 461.8, ICD10: J01.40 (primary diagnosis) - Will begin treatment with Augmentin 875 mg PO BID for 10 days - AMOXICILLIN 875 MG-POTASSIUM CLAVULANATE 125 MG TABLET - FLUTICASONE PROPIONATE 50 MCG/ACTUATION NASAL SPRAY,SUSPENSION - LORATADINE 10 MG TABLET 2. Active advance directive - ICD9: V49.89, ICD10: Z78.9 - ADVANCE CARE PLAN DISCUSSION Gary Matute APRN.SILVIA No follow-ups on file. Discussed the above with the patient using shared decision making. The patient is in agreement with the diagnostic and treatment plans. This note was partially generated using [employer] voice recognition system, and there may be some incorrect words, spellings, and punctuation that were not noted in checking the note before saving. documented in this encounter [facility] 01-30-2024 Nurse Note Jonathon Perales is a 73 year old male who presents for Head Congestion, Cough, and Sinus Problem for the last 5 days. Nyquil helps a little bit. no COVID testing Ayala Lofton MA documented in this encounter [facility] 01-15-2024 Miscellaneous Notes Patient/Patient's Pharmacy is requesting the following refill. Patient's last appointment: 12/10/2023. Next appointment: 06/15/2024 . Requested Prescriptions Pending Prescriptions Disp Refills meclizine (ANTIVERT) 25 mg tab 30 tablet 3 Patient Phone numbers: [phone] (home) Request is for script(s) to be escript to pharmacy. Ayala Lofton MA documented in this encounter [facility] 01-12-2024 Miscellaneous Notes Reason For Call: Slow to respond in thinking per patient with new speech problems, and headache. Dizziness earlier today. He blames recent discontinuation of some of his medications. Outcome: Advised patient to call 911. He agreed for assistance to call 911. He moved in with daughter and was unsure of the address. He was on a cell phone but not on a land line. He did not want his daughter called. Conferenced call to [facility] who could not find address and conferenced call to [facility]. He was not sure of apartment complex name. They had him spell name of street and it was spelled as [address]. Patient verified address as [address] either in [place] or [place] He did not know if it was a road or drive. [facility] dispatched an ambulance to this address at [facility] and agreed to stay on the line with him. Patient could not recall his correct phone number. Gave dispatcher his name, my name, his phone number, my desk and my dept number. Reason for Disposition [1] Difficult to awaken or acting confused (e.g., disoriented, slurred speech) AND [2] present now AND [3] diabetes mellitus Clarification: No diabetes Confusion, slow to respond per patient, speech changes (stuttering), headache. Dizziness earlier today Protocols used: Confusion - [id number] documented in this encounter [facility] 10-24-2023 Miscellaneous Notes Patient stopped in requesting that his medications be sent into [facility] in [place] on [address] Elsa Sushila Ambrocio documented in this encounter [facility] 10-24-2023 Miscellaneous Notes Referral placed in [facility] portal to PSYCHIATRY. Confirmation number: [id number] Referral placed in [facility] portal to CARDIOLOGY . Confirmation number: [id number] Referral placed in [facility] portal to NEUROLOGY. Confirmation number: [id number] Citlalli Almeida documented in this encounter [facility] 10-24-2023 Instructions Liset Menjivar APRN.CNP - 10/24/2023 1:14 PM EST -establish with psychiatry to help with medication management - get labs completed per Dr. Fernandez, this should be done fasting - make apts with cardiology, neurology and psychiatry - please take 1 tablet of your effexor in the morning and 2 tablets of your effexor in the evening - take meclizine as needed for the dizziness - please stay hydrated with water and eat frequent small meals - please follow up with your eye doctor to see if your script needs adjusted documented in this encounter [facility] 10-24-2023 History of Present illness Narrative Images from the original note were not included. [facility] [address] [place] [address] Date of Evaluation: 10/27/2023 Patient Name: Jonathon Perales : 1950 Chief Complaint: Patient presents with: Dizziness stomach problem Nursing Intake: Nursing Notes: Dianna Beal LPN 10/24/2023 1:02 PM Signed Patient states his chest feels congested he's dizzy and has no appetite and has been losing weight/stomach upset. He states the main reason he is here is due to not being able to focus. Patient states his is now in the assisted living due to him not being able to take care of her. Patient states he has been feeling depressed. Subjective Mr. Perales is a 73 year old male who presents with the following complaint(s): HPI Pt presents for concern of congestion, dizzyness and lack of appetite. Pt having depressed mood due to going to senior care. CONGESTION: started few weeks ago. Denies chest pain, SOB, [place], [place], falls, lightheadedness BLURRY VISION: started 3 days ago. Taking glasses helps eyes refocus. Saw eye doctor 1 year ago. Will get nauseated. LACK OF APPETITE: has lost about 10lbs since February 2023. Endorses that he does not eat regularly or stay hydrated with water. DIZZINESS: Hx of TIA, vertigo and cerebellar stroke. Pt takes meclizine as needed, will help. Saw neuro in the past (2021). Takes Sinemet, plavix, lipitor. DEPRESSION/INATTENTION: on wellbutrin 300mg daily, and effexor 75mg TID. Pt endorses only being able to take it BID due to forgetting the afternoon dose. Worsening due to being in senior care. Moved in with daughter due to having to sell home to help pay for assisted living for . Will eat take out, "not the right stuff for you". Daughter does not cook regularly. Review of Systems . 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 Zazueta EGD WITH BIOPSY(S) 01/13/2013 Dr. 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 Marguerite Garcia COLONOSCOPY WITH POLYPECTOMY 05/06/2002 tubular adenoma; chronic colitis; Dr. Jose Garcia COLONOSCOPY WITH POLYPECTOMY 12/08/2018 tubular adenoma; Dr. Zazueta FAMILY HISTORY Problem Relation Age of Onset Heart disease Mother Breast Cancer Mother other (back) Mother Heart disease Father Coronary Artery Disease Father Alcohol/Drug Father other (kidney) Father Breast Cancer Sister Hypertension Sister No Known Problems Sister Social History Tobacco Use Smoking status: Former Types: Cigars Quit date: 11/2022 Years since quittin.9 Smokeless tobacco: Never Vaping Use Vaping Use: Never used Substance Use Topics Alcohol use: No Drug use: No Current Outpatient Medications Medication Sig carbidopa-levodopa (SINEMET 25-100) 25-100 mg per tablet Take 1 tablet by mouth three times daily. ezetimibe (ZETIA) 10 mg tablet Take 1 tablet by mouth daily at bedtime. pantoprazole DR (PROTONIX) 40 mg tablet Take 1 tablet by mouth once daily. lisinopril (ZESTRIL) 10 mg tablet Take 1 tablet by mouth once daily. meclizine (ANTIVERT) 25 mg tab TAKE ONE TABLET BY MOUTH EVERY 6 HOURS NEEDED FOR DIZZINESS buPROPion XL (WELLBUTRIN XL) 300 mg 24 hr tablet Take 1 tablet by mouth once daily at 6 am. atorvastatin (LIPITOR) 80 mg tablet Take 1 tablet by mouth daily at bedtime. clopidogrel (PLAVIX) 75 mg tablet Take 1 tablet by mouth once daily. cholecalciferol (VITAMIN D3) 50 mcg (2,000 unit) tablet Take 2,000 Units by mouth once daily. aspirin, enteric coated (ASPIRIN, ENTERIC COATED) 81 mg EC tablet Take 81 mg by mouth once daily. venlafaxine (EFFEXOR) 75 mg tablet Take 1 tablet in the morning and 2 tablets at bedtime. metoprolol tartrate, short acting, (LOPRESSOR) 25 mg tablet Take 0.5 tablets by mouth twice daily. (Patient not taking: Reported on 09/18/2023) ondansetron (ZOFRAN) 4 mg tablet TAKE 1 TO 2 TABLET BY MOUTH EVERY 8 HOURS IF NEEDED FOR NAUSEA (Patient not taking: Reported on 09/18/2023) acetaminophen (TYLENOL) 325 mg tablet Take 2 tablets by mouth every 6 hours as needed. (Patient not taking: Reported on 09/18/2023) Cyanocobalamin 2,000 mcg TbER Take by mouth once daily. (Patient not taking: Reported on 09/18/2023) No current facility-administered medications for this visit. I have confirmed and edited as necessary the chief complaint, medications, past medical, family and social histories obtained by others. Objective BP 146/86 Pulse [unable to read[ Temp (Src) 96.8 (Tympanic) Ht 5' 5" (1.65m) Wt 152 lb (68.9kg) SpO2 [unable to read]% BMI 25.29 kg/(m^2). Physical Exam Vitals and nursing note reviewed. Constitutional: General: He is awake. He is not in acute distress. Appearance: Normal appearance. He is well-groomed. He is not ill-appearing, toxic-appearing or diaphoretic. HENT: Head: Normocephalic and atraumatic. Comments: Slight bruising noted under R eye. Healing well. Healing laceration noted above R eye. 1 suture present. Cleaned with alcohol prep pad, removed with #11 blade, pt tolerated well. Skin C/D/I. Right Ear: Tympanic membrane, ear canal and external ear normal. There is no impacted cerumen. Left Ear: Tympanic membrane, ear canal and external ear normal. There is no impacted cerumen. Nose: Congestion present. No rhinorrhea. Mouth/Throat: Mouth: Mucous membranes are moist. Pharynx: No oropharyngeal exudate or posterior oropharyngeal erythema. Eyes: General: No scleral icterus. Right eye: No discharge. Left eye: No discharge. Extraocular Movements: Extraocular movements intact. Conjunctiva/sclera: Conjunctivae normal. Pupils: Pupils are equal, round, and reactive to light. Cardiovascular: Rate and Rhythm: Normal rate and regular rhythm. Pulses: Normal pulses. Heart sounds: Normal heart sounds. No murmur heard. No friction rub. No gallop. Pulmonary: Effort: Pulmonary effort is normal. No respiratory distress. Breath sounds: Normal breath sounds. No stridor. No wheezing, rhonchi or rales. Chest: Chest wall: No tenderness. Abdominal: General: Bowel sounds are normal. There is no distension. Palpations: Abdomen is soft. There is no mass. Tenderness: There is no abdominal tenderness. There is no right CVA tenderness, left CVA tenderness, guarding or rebound. Hernia: No hernia is present. Musculoskeletal: General: No swelling. Normal range of motion. Cervical back: Normal, normal range of motion and neck supple. No rigidity or tenderness. Lymphadenopathy: Cervical: No cervical adenopathy. Skin: General: Skin is warm and dry. Capillary Refill: Capillary refill takes less than 2 seconds. Neurological: General: No focal deficit present. Mental Status: He is alert and oriented to person, place, and time. Mental status is at baseline. Motor: No weakness. Gait: Gait normal. Comments: stutter Psychiatric: Attention and Perception: Attention normal. Mood and Affect: Mood normal. Speech: Speech normal. Behavior: Behavior is cooperative. Data Reviewed: Most recent labs and imaging results. ASSESSMENT/PLAN: 1. Anxiety with depression - ICD9: 300.4, ICD10: F41.8 (primary diagnosis) - worsening - on wellbutrin and effexor - was not taking effexor as directed, encouraged pt to take 1 tab in the morning and 2 in the evening. - CONSULT TO PSYCHIATRY - VENLAFAXINE 75 MG TABLET 2. Inattention - ICD9: 799.51, ICD10: R41.840 - on 300mg of Wellbutrin daily - encouraged pt to take 2 tabs of effexor at bedtime and 1 tablet in the morning. - CONSULT TO PSYCHIATRY - VENLAFAXINE 75 MG TABLET 3. Cerebellar stroke (HCC) - ICD9: 434.91, ICD10: I63.9 - lost to follow-up - on plavix, aspirin, zetia and lipitor - CONSULT TO NEUROLOGY 4. 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 Aortic dilatation (HCC) - ICD9: 447.70, ICD10: I77.819 - CONSULT TO CARDIOLOGY 6. Laceration of right eyebrow, subsequent encounter - ICD9: V58.89, 873.42, ICD10: S01.111D - 1 suture removed - looks about 3 weeks old, pt states 1 week - pt hit face on car door had work up including imaging [place]" Liset Menjivar, GAS STATION CLERK.DRY STARCH OPERATOR Return if symptoms worsen or fail to improve, for keep apt with Dr. Fernandez in November 2023. Discussed the above with the patient using shared decision making. The patient is in agreement with the diagnostic and treatment plans. documented in this encounter [facility] 10-24-2023 Nurse Note Patient states his chest feels congested he's dizzy and has no appetite and has been losing weight/stomach upset. He states the main reason he is here is due to not being able to focus. Patient states his is now in the assisted living due to him not being able to take care of her. Patient states he has been feeling depressed. documented in this encounter [facility] 08-08-2023 History of Present illness Narrative Images from the original note were not included. Giorgio Fernandez, [facility] 1946 [facility] [address] [facility], [address] [place] [address] Date of Evaluation: 08/11/2023 Patient Name: Jonathon Perales : 1950 Chief Complaint: Patient presents with: Weight Loss Dizziness stuttering: more Depression Subjective Mr. Perales is a 73 year old male who presents with the following complaint(s): HPI Weight loss is in Ast living and he has been depressed eating out a lot Has lost about 15 lbs over last year recommended Depression Reviewed all symptoms. Stable on current medications. Taking medications as prescribed. Depressed over his situation Spouse is in Asst Living and he has moved in with his daughter doesn't like loss of independence Review of Systems Constitutional: Negative for activity change, appetite change, fatigue and fever. HENT: Negative for congestion, dental problem, ear pain, hearing loss, sinus pressure, sinus pain and sore throat. Eyes: Negative for pain, discharge and visual disturbance. Respiratory: Negative for cough, chest tightness, shortness of breath and wheezing. Cardiovascular: Negative for chest pain and leg swelling. Gastrointestinal: Negative for abdominal pain, blood in stool, constipation, diarrhea, nausea and vomiting. Endocrine: Negative for cold intolerance and heat intolerance. Genitourinary: Negative for difficulty urinating, dysuria and frequency. Musculoskeletal: Negative for back pain, myalgias and neck pain. Skin: Negative for rash. Neurological: Negative for dizziness, syncope and headaches. Hematological: Does not bruise/bleed easily. Psychiatric/Behavioral: Positive for dysphoric mood. Negative for sleep disturbance and suicidal ideas. The patient is nervous/anxious. 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 Zazueta EGD WITH BIOPSY(S) 01/13/2013 Dr. 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 Everett F COLONOSCOPY WITH POLYPECTOMY 05/06/2002 tubular adenoma; chronic colitis; Dr. Garcia F COLONOSCOPY WITH POLYPECTOMY 12/08/2018 tubular adenoma; Dr. Zazueta FAMILY HISTORY Problem Relation Age of Onset Heart disease Mother Breast Cancer Mother other (back) Mother Heart disease Father Coronary Artery Disease Father Alcohol/Drug Father other (kidney) Father Breast Cancer Sister Hypertension Sister No Known Problems Sister Social History Tobacco Use Smoking status: Former Types: Cigars Quit date: 11/2022 Years since quittin.7 Smokeless tobacco: Never Vaping Use Vaping Use: Never used Substance Use Topics Alcohol use: No Drug use: No Current Outpatient Medications Medication Sig Dispense Refill meclizine (ANTIVERT) 25 mg tab TAKE ONE TABLET BY MOUTH EVERY 6 HOURS NEEDED FOR DIZZINESS 30 tablet 3 venlafaxine (EFFEXOR) 75 mg tablet TAKE ONE TABLET BY MOUTH THREE TIMES A DAY 270 tablet 3 buPROPion XL (WELLBUTRIN XL) 300 mg 24 hr tablet Take 1 tablet by mouth once daily at 6 am. 90 tablet 3 atorvastatin (LIPITOR) 80 mg tablet Take 1 tablet by mouth daily at bedtime. 90 tablet 3 ondansetron (ZOFRAN) 4 mg tablet TAKE 1 TO 2 TABLET BY MOUTH EVERY 8 HOURS IF NEEDED FOR NAUSEA 30 tablet 0 clopidogrel (PLAVIX) 75 mg tablet Take 1 tablet by mouth once daily. 90 tablet 3 venlafaxine ER (EFFEXOR XR) 75 mg 24 hr capsule Take 75 mg by mouth once daily. acetaminophen (TYLENOL) 325 mg tablet Take 2 tablets by mouth every 6 hours as needed. cholecalciferol (VITAMIN D3) 50 mcg (2,000 unit) tablet Take 2,000 Units by mouth once daily. Cyanocobalamin 2,000 mcg TbER Take by mouth once daily. aspirin, enteric coated (ASPIRIN, ENTERIC COATED) 81 mg EC tablet Take 81 mg by mouth once daily. carbidopa-levodopa (SINEMET 25-100) 25-100 mg per tablet Take 1 tablet by mouth three times daily. 270 tablet 3 metoprolol tartrate, short acting, (LOPRESSOR) 25 mg tablet Take 0.5 tablets by mouth twice daily. 90 tablet 3 ezetimibe (ZETIA) 10 mg tablet Take 1 tablet by mouth daily at bedtime. [address] (PROTONIX) 40 mg tablet Take 1 tablet by mouth once daily. 90 tablet 3 lisinopril (ZESTRIL) 10 mg tablet Take 1 tablet by mouth once daily. 90 tablet 3 No current facility-administered medications for this visit. I have confirmed and edited as necessary the chief complaint, medications, past medical, family and social histories obtained by others. Labs Completed Today: No visits with results within 1 Day(s) from this visit. Latest known visit with results is: Appointment on 06/19/2023 Component Date Value Ref Range Status Cholesterol, Total 06/19/2023 211 (H) <200 mg/dL Final <200 mg/dL, Desirable 200-239 mg/dL, Borderline high >239 mg/dL, High Triglyceride 06/19/2023 150 (H) <150 mg/dL Final <150 mg/dL, Normal 150-199 mg/dL, Borderline high 200-499 mg/dL, High >499 mg/dL, Very high HDL Cholesterol 06/19/2023 43 >39 mg/dL Final 40-59 mg/dL, Acceptable >59 mg/dL, High: Negative risk factor for coronary heart disease <40 mg/dL, Low: Positive risk factor for coronary heart disease Non HDL Cholesterol 06/19/2023 168 (H) <130 mg/dL Final <130 mg/dL, Optimal 130-159 mg/dL, Near optimal/above optimal 160-189 mg/dL, Borderline high 190-219 mg/dL, High >219 mg/dL, Very high Secondary prevention optimal non HDL Cholesterol levels are recommended to be <100 mg/dL Fasting Time 06/19/2023 12 hrs Final VLDL Cholesterol 06/19/2023 30 (H) <30 mg/dL Final TC:HDL Ratio 06/19/2023 4.91 <5.10 Final LDL Cholesterol 06/19/2023 138 (H) <100 mg/dL Final <100 mg/dL, Optimal 100-129 mg/dL, Near optimal/above optimal 130-159 mg/dL, Borderline high 160-189 mg/dL, High >189 mg/dL, Very high Secondary prevention optimal LDL Cholesterol levels are recommended to be < 70 mg/dL LDL:HDL Ratio 06/19/2023 3.21 (H) <2.54 Final Reference: 1. National Cholesterol Education Program ATP III Guideline At-A-Glance Quick Desk Reference: National Heart, Lung, and Blood [place]. National Institutes of Health. 2001: NIH Publication No. 01-3305. 2. An International Atherosclerosis Society position paper: global recommendations for the management of dyslipidemia: executive summary, Atherosclerosis. 2014: 232(2):410-413. Protein, Total 06/19/2023 6.6 6.3 - 8.0 g/dL Final Albumin 06/19/2023 4.1 3.9 - 4.9 g/dL Final Calcium, Total 06/19/2023 9.5 8.5 - 10.2 mg/dL Final Bilirubin, Total 06/19/2023 1.2 0.2 - 1.3 mg/dL Final Alkaline Phosphatase 06/19/2023 101 38 - 113 U/L Final AST 06/19/2023 17 14 - 40 U/L Final ALT 06/19/2023 13 10 - 54 U/L Final Glucose 06/19/2023 96 74 - 99 mg/dL Final The [place] Diabetes Association (ADA) provides guidance for cutoff values for fasting glucose and random glucose. The ADA defines fasting as no caloric intake for at least 8 hours. Fasting plasma glucose results between 100 to 125 mg/dL indicate increased risk for diabetes (prediabetes). Fasting plasma glucose results greater than or equal to 126 mg/dL meet the criteria for diagnosis of diabetes. In the absence of unequivocal hyperglycemia, results should be confirmed by repeat testing. In a patient with classic symptoms of hyperglycemia or hyperglycemic crisis, random plasma glucose results greater than or equal to 200 mg/dL meet the criteria for diagnosis of diabetes. Reference: Standards of Medical Care in Diabetes 2016, [place] Diabetes Association. Diabetes Care. 2016.39(Suppl 1). BUN 06/19/2023 15 9 - 24 mg/dL Final Creatinine 06/19/2023 1.15 0.73 - 1.22 mg/dL Final Sodium 06/19/2023 140 136 - 144 mmol/L Final Potassium 06/19/2023 4.6 3.7 - 5.1 mmol/L Final Chloride 06/19/2023 105 97 - 105 mmol/L Final CO2 06/19/2023 27 22 - 30 mmol/L Final Anion Gap 06/19/2023 8 (L) 9 - 18 mmol/L Final Estimated Glomerular Filtration Ra* 06/19/2023 67 >=60 mL/min/1.73m Final Estimated Glomerular Filtration Rate (eGFR) is calculated using the 2020 CKD-EPI creatinine equation. This equation utilizes serum creatinine, sex, and age as parameters. The creatinine assay has traceable calibration to isotope dilution-mass spectrometry. Refer to KDIGO guidelines for clinical interpretation. In patients with unstable renal function, e.g. those with acute kidney injury, the eGFR may not accurately reflect actual GFR. WBC 06/19/2023 5.88 3.70 - 11.00 k/uL Final RBC 06/19/2023 4.45 4.20 - 6.00 m/uL Final Hemoglobin 06/19/2023 14.6 13.0 - 17.0 g/dL Final Hematocrit 06/19/2023 45.1 39.0 - 51.0 % Final MCV 06/19/2023 101.3 (H) 80.0 - 100.0 fL Final MCH 06/19/2023 32.8 26.0 - 34.0 pg Final MCHC 06/19/2023 32.4 30.5 - 36.0 g/dL Final RDW-CV 06/19/2023 11.9 11.5 - 15.0 % Final Platelet Count 06/19/2023 242 150 - 400 k/uL Final MPV 06/19/2023 10.3 9.0 - 12.7 fL Final Absolute nRBC 06/19/2023 <0.01 <0.01 k/uL Final Objective 08/08/23 1021 BP: 140/100 Pulse: 70 Temp: 37.1 C (98.7 F) TempSrc: Tympanic SpO2: 99% Weight: 70.3 kg (155 lb) Height: 165.1 cm (5' 5") BMI 25.79 kg/(m^2) Physical Exam Constitutional: Appearance: Normal appearance. HENT: Head: Normocephalic and atraumatic. Right Ear: Tympanic membrane normal. Left Ear: Tympanic membrane normal. Nose: Nose normal. No congestion. Mouth/Throat: Mouth: Mucous membranes are dry. Eyes: Extraocular Movements: Extraocular movements intact. Pupils: Pupils are equal, round, and reactive to light. Cardiovascular: Rate and Rhythm: Normal rate and regular rhythm. Pulmonary: Effort: Pulmonary effort is normal. Breath sounds: Normal breath sounds. Abdominal: General: Abdomen is flat. Palpations: Abdomen is soft. Musculoskeletal: General: Normal range of motion. Cervical back: Normal range of motion and neck supple. Skin: General: Skin is warm and dry. Neurological: General: No focal deficit present. Mental Status: He is alert and oriented to person, place, and time. Psychiatric: Mood and Affect: Mood normal. Behavior: Behavior normal. Data Reviewed: Most recent labs and imaging results. Return in about 3 months (around 11/07/2023) for Hypertension follow-up. Provider: Giorgio Fernandez DO Date: August 08, 2023 Time: 11:03 AM documented in this encounter [facility] 08-07-2023 Miscellaneous Notes Has appt tomorrow [facility] Patient was called and he said he is wanting to make an appointment for weight loss and dizziness that is getting worse. Tanya Richter MA Patient called office, left message his dizziness in no better, possibly even worse. Patient states he has been taking the medication that was given to him, however it is not working He is requesting to speak with nursing staff Please advise Thank you Alona Velasquez PSS documented in this encounter [facility] 08-05-2023 Miscellaneous Notes Patient/Patient's Pharmacy is requesting the following refill. Patient's last appointment: 06/17/2023. Next appointment: none . Requested Prescriptions Pending Prescriptions Disp Refills meclizine (ANTIVERT) 25 mg tab [Pharmacy Med Name: Meclizine HCl Oral Tablet 25 MG] 30 tablet 0 Sig: TAKE ONE TABLET BY MOUTH EVERY 6 HOURS NEEDED FOR DIZZINESS Patient Phone numbers: [phone] (home) Request is for script(s) to be escript to pharmacy. Ayala Lofton MA documented in this encounter [facility] 07-24-2023 Miscellaneous Notes Called and notified patient of verbal and patient voiced understanding of verbal. Sheela Vences LPN ----- Message from Cindy Ring PA-C sent at 07/24/2023 4:29 PM EDT ----- Overall patient's labs are stable, Cholesterol is improved, nothing further to be done at this time. CINDY A BOLYARD, PA-C documented in this encounter [facility] 07-11-2023 Miscellaneous Notes Patient/Patient's Pharmacy is requesting the following refill. Patient's last appointment: 06/17/2023. Next appointment: none . Requested Prescriptions Pending Prescriptions Disp Refills venlafaxine (EFFEXOR) 75 mg tablet [Pharmacy Med Name: Venlafaxine HCl Oral Tablet 75 MG] 270 tablet 0 Sig: TAKE ONE TABLET BY MOUTH THREE TIMES A DAY Patient Phone numbers: [phone] (home) Request is for script(s) to be escript to pharmacy. Ayala Lofton MA documented in this encounter [facility] 06-18-2023 History of Present illness Narrative Episode Visit Count: 2 Therapist That Will Accept/Oversee The Plan Of Care: Nicole Benjamin Start of Care Date: 01/08/23 Onset Date: 04/27/21 Plan of Care Certification Date: 01/08/23 Next Certification Due Date: 04/02/23 REHABILITATION AND SPORTS THERAPY OCCUPATIONAL THERAPY ON-ROAD DRIVING ASSESSMENT SUBJECTIVE: I know I can pass the driving test. OBJECTIVE MEASURES WITH LEVEL OF FUNCTION: Reviewed outcomes of the initial assessment and discussed the plan for this treatment session. ENVIRONMENT: Location: Residential, Interstate, Rural, Parking Lot, and Multi-mil Road Traffic: Light Weather: Overcast Road Conditions: Dry Mileage driven: 22 MODIFICATIONS: Steering Device: NA Turn Signal: Standard Hand Controls: NA Mirrors: Standard Cushions: None Other: NA PHYSICAL PERFORMANCE: Use of Controls: No Deficits noted Physical Limitations: None OBSERVATION SKILLS: No deficits noted in this area. GAP ACCEPTANCE: No deficits noted in this area MIL CHANGING/MERGING: No deficits noted in this area LIMIT LINE/STOPPING: Deficits were noted in the following areas:, Client demonstrated insufficient / late braking x 2. Instructed patient on the need for making complete stops at all stop signs and red traffic lights. Patient made a stop at an intersection that was not controlled by a stop sign. Was encouraged to make a continuous turn. Patient was engaged in light conversation when this occurred. Recommend patient minimize distraction while driving. REGULATION OF SPEED: No deficits noted in this area. PATH OF TRAVEL: Deficits were noted in the following areas: and Turned into improper mil x1. Instructed patient on the need to turn into nearest mil. Improved as session progressed. SIGNALING: Forgot to signal 2 times. PARKING: satisfactory GENERAL AWARENESS: No deficits noted in this area TREATMENT: On Road Driving Assessment: Patient completed on the road assessment with no major deficits. ASSESSMENT: Jonathon Perales tolerated today's treatment visit well. 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 Due to the complex nature of the safe operation of a motor vehicle, and considering the demands of integrating changing environmental conditions, and visual, cognitive, and physical skills, successful completion of this program is not a guarantee of safe driving in the future. RECOMMENDATION: 1. Return to independent driving. 2. Family and physician to monitor cognition and send for reassessment should there be a decline in function. 3. IF AT FAULT CRASH, SIGNIFICANT FENDER AGARWAL, MOVING VIOLATION OR INCIDENT OF GETTING LOST IMMEDIATE CESSATION OF DRIVING IS INDICATED Billing: Drivers Follow Up per 60 min (74649): 1:1 time 60 min Total time: 60 minutes CHUY Pino, CDI/PD Tortilla Maker Mount Loader documented in this encounter [facility] 06-17-2023 History of Present illness Narrative Images from the original note were not included. Giorgio Fernandez, DO Family Practice 1946 [facility], [address] [place] [address] Date of Evaluation: 06/17/2023 Patient Name: Jonathon Perales : 1950 Chief Complaint: Patient presents with: Arm Pain: RIGHT FOREARM Anxiety Stress Nursing Intake: There are no exam notes on file for this visit. Subjective Mr. Perales is a 73 year old male who presents with the following complaint(s): HPI Rt arm pain HAS BEEN MOVING FURNITURE AND Rt arm is painful Anxiety with Depression Reviewed all symptoms. Stable on current medications. Taking medications as prescribed. placed in Asst Living due to her Diabetes and not able to care for self . Has been out of his antidepressant medication and he was spitting the pills out as he was running low until he could get in for this appointment. Hopefully getting back on his regular dose daily will help his depression. He declines speaking with the psychologist at this time. I recommend he speak to the staff at the facility his 's and see if they have some spousal support groups. Did discuss about having him to consider moving in with his it may make things easier for him but he feels like he is not ready and can still take care of himself. Does have some mild memory impairment and apparently is scheduled to take a driving evaluation that was recommended after his hospital stay in the spring by the geriatric medicine staff Review of Systems Constitutional: Negative for activity change, appetite change, fatigue and fever. HENT: Negative for congestion, dental problem, ear pain, hearing loss, sinus pressure, sinus pain and sore throat. Eyes: Negative for pain, discharge and visual disturbance. Respiratory: Negative for cough, chest tightness, shortness of breath and wheezing. Cardiovascular: Negative for chest pain and leg swelling. Gastrointestinal: Negative for abdominal pain, blood in stool, constipation, diarrhea, nausea and vomiting. Endocrine: Negative for cold intolerance and heat intolerance. Genitourinary: Negative for difficulty urinating, dysuria and frequency. Musculoskeletal: Positive for arthralgias. Negative for back pain, myalgias and neck pain. Rt elbow pain prob d/t overuse Skin: Negative for rash. Neurological: Negative for dizziness, syncope and headaches. Hematological: Does not bruise/bleed easily. Psychiatric/Behavioral: Positive for confusion and decreased concentration. Negative for dysphoric mood, sleep disturbance and suicidal ideas. The patient is nervous/anxious. 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 Zazueta EGD WITH BIOPSY(S) 01/13/2013 Dr. 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 Everett F COLONOSCOPY WITH POLYPECTOMY 05/06/2002 tubular adenoma; chronic colitis; Dr. Garcia F COLONOSCOPY WITH POLYPECTOMY 12/08/2018 tubular adenoma; Dr. Zazueta FAMILY HISTORY Problem Relation Age of Onset Heart disease Mother Breast Cancer Mother other (back) Mother Heart disease Father Coronary Artery Disease Father Alcohol/Drug Father other (kidney) Father Breast Cancer Sister Hypertension Sister No Known Problems Sister Social History Tobacco Use Smoking status: Former Types: Cigars Quit date: 11/2022 Years since quittin.5 Smokeless tobacco: Never Vaping Use Vaping Use: Never used Substance Use Topics Alcohol use: No Drug use: No Current Outpatient Medications Medication Sig Dispense Refill ondansetron (ZOFRAN) 4 mg tablet TAKE 1 TO 2 TABLET BY MOUTH EVERY 8 HOURS IF NEEDED FOR NAUSEA 30 tablet 0 clopidogrel (PLAVIX) 75 mg tablet Take 1 tablet by mouth once daily. 90 tablet 3 carbidopa-levodopa (SINEMET 25-100) 25-100 mg per tablet Take 1 tablet by mouth three times daily. 270 tablet 3 meclizine (ANTIVERT) 25 mg tab Take 1 tablet by mouth every 6 hours as needed (for dizziness). 30 tablet 1 venlafaxine ER (EFFEXOR XR) 75 mg 24 hr capsule Take 75 mg by mouth once daily. lisinopril (ZESTRIL, PRINIVIL) 10 mg tablet Take 1 tablet by mouth once daily. [address] (PROTONIX) 40 mg tablet Take 1 tablet by mouth once daily. 90 tablet 3 ezetimibe (ZETIA) 10 mg tablet Take 1 tablet by mouth once daily. (Patient taking differently: Take 10 mg by mouth daily at bedtime.) 90 tablet 3 metoprolol tartrate, short acting, (LOPRESSOR) 25 mg tablet Take 0.5 tablets by mouth twice daily. 90 tablet 3 acetaminophen (TYLENOL) 325 mg tablet Take 2 tablets by mouth every 6 hours as needed. cholecalciferol (VITAMIN D3) 50 mcg (2,000 unit) tablet Take 2,000 Units by mouth once daily. Cyanocobalamin 2,000 mcg TbER Take by mouth once daily. aspirin, enteric coated (ASPIRIN, ENTERIC COATED) 81 mg EC tablet Take 81 mg by mouth once daily. buPROPion XL (WELLBUTRIN XL) 300 mg 24 hr tablet Take 1 tablet by mouth once daily at 6 am. 90 tablet 3 atorvastatin (LIPITOR) 80 mg tablet Take 1 tablet by mouth daily at bedtime. 90 tablet 3 No current facility-administered medications for this visit. I have confirmed and edited as necessary the chief complaint, medications, past medical, family and social histories obtained by others. Labs Completed Today: No visits with results within 1 Day(s) from this visit. Latest known visit with results is: Admission on 02/23/2023, Discharged on 02/24/2023 Component Date Value Ref Range Status Cholesterol, Total 02/23/2023 247 (H) <200 mg/dL Final <200 mg/dL, Desirable 200-239 mg/dL, Borderline high >239 mg/dL, High Triglyceride 02/23/2023 144 <150 mg/dL Final <150 mg/dL, Normal 150-199 mg/dL, Borderline high 200-499 mg/dL, High >499 mg/dL, Very high HDL Cholesterol 02/23/2023 58 >39 mg/dL Final 40-59 mg/dL, Acceptable >59 mg/dL, High: Negative risk factor for coronary heart disease <40 mg/dL, Low: Positive risk factor for coronary heart disease Non HDL Cholesterol 02/23/2023 189 (H) <130 mg/dL Final <130 mg/dL, Optimal 130-159 mg/dL, Near optimal/above optimal 160-189 mg/dL, Borderline high 190-219 mg/dL, High >219 mg/dL, Very high Secondary prevention optimal non HDL Cholesterol levels are recommended to be <100 mg/dL Fasting Time 02/23/2023 12 hrs Final VLDL Cholesterol 02/23/2023 29 <30 mg/dL Final TC:HDL Ratio 02/23/2023 4.26 <5.10 Final LDL Cholesterol 02/23/2023 160 (H) <100 mg/dL Final <100 mg/dL, Optimal 100-129 mg/dL, Near optimal/above optimal 130-159 mg/dL, Borderline high 160-189 mg/dL, High >189 mg/dL, Very high Secondary prevention optimal LDL Cholesterol levels are recommended to be < 70 mg/dL LDL:HDL Ratio 02/23/2023 2.76 (H) <2.54 Final Reference: 1. National Cholesterol Education Program ATP III Guideline At-A-Glance Quick Desk Reference: National Heart, Lung, and Blood [place]. National Institutes of Health. 2001: NIH Publication No. 01-3305. 2. An International Atherosclerosis Society position paper: global recommendations for the management of dyslipidemia: executive summary, Atherosclerosis. 2014: 232(2):410-413. Hemoglobin A1C 02/23/2023 5.6 4.3 - 5.6 % Final [place] Diabetes [employer] guidelines indicate that patients with HgbA1c in the range 5.7-6.4% are at increased risk for development of diabetes, and intervention by lifestyle modification may be beneficial. HgbA1c greater or equal to 6.5% is considered diagnostic of diabetes. Estimated Average Glucose 02/23/2023 114 mg/dL Final eAG: (Estimated average glucose) is a calculated value from HgbA1c and is real estate representative of the average blood glucose level in the last 2-3 month period. Glucose 02/23/2023 86 74 - 99 mg/dL Final The [place] Diabetes Association (ADA) provides guidance for cutoff values for fasting glucose and random glucose. The ADA defines fasting as no caloric intake for at least 8 hours. Fasting plasma glucose results between 100 to 125 mg/dL indicate increased risk for diabetes (prediabetes). Fasting plasma glucose results greater than or equal to 126 mg/dL meet the criteria for diagnosis of diabetes. In the absence of unequivocal hyperglycemia, results should be confirmed by repeat testing. In a patient with classic symptoms of hyperglycemia or hyperglycemic crisis, random plasma glucose results greater than or equal to 200 mg/dL meet the criteria for diagnosis of diabetes. Reference: Standards of Medical Care in Diabetes 2016, [place] [employer]. Diabetes Care. 2016.39(Suppl 1). BUN 02/23/2023 19 9 - 24 mg/dL Final Creatinine 02/23/2023 1.25 (H) 0.73 - 1.22 mg/dL Final Sodium 02/23/2023 139 136 - 144 mmol/L Final Potassium 02/23/2023 4.4 3.7 - 5.1 mmol/L Final Chloride 02/23/2023 103 97 - 105 mmol/L Final CO2 02/23/2023 26 22 - 30 mmol/L Final Anion Gap 02/23/2023 10 9 - 18 mmol/L Final Calcium, Total 02/23/2023 9.0 8.5 - 10.2 mg/dL Final Estimated Glomerular Filtration Ra* 02/23/2023 61 >=60 mL/min/1.73m Final Estimated Glomerular Filtration Rate (eGFR) is calculated using the 2020 CKD-EPI creatinine equation. This equation utilizes serum creatinine, sex, and age as parameters. The creatinine assay has traceable calibration to isotope dilution-mass spectrometry. Refer to KDIGO guidelines for clinical interpretation. In patients with unstable renal function, e.g. those with acute kidney injury, the eGFR may not accurately reflect actual GFR. WBC 02/23/2023 6.00 3.70 - 11.00 k/uL Final RBC 02/23/2023 4.09 (L) 4.20 - 6.00 m/uL Final Hemoglobin 02/23/2023 13.6 13.0 - 17.0 g/dL Final Hematocrit 02/23/2023 41.2 39.0 - 51.0 % Final MCV 02/23/2023 100.7 (H) 80.0 - 100.0 fL Final MCH 02/23/2023 33.3 26.0 - 34.0 pg Final MCHC 02/23/2023 33.0 30.5 - 36.0 g/dL Final RDW-CV 02/23/2023 11.9 11.5 - 15.0 % Final Platelet Count 02/23/2023 207 150 - 400 k/uL Final MPV 02/23/2023 9.9 9.0 - 12.7 fL Final Neutrophils % 02/23/2023 50.2 % Final Abs Neut 02/23/2023 3.01 1.45 - 7.50 k/uL Final Lymphocytes % 02/23/2023 31.7 % Final Abs Lymph 02/23/2023 1.90 1.00 - 4.00 k/uL Final Monocytes % 02/23/2023 9.3 % Final Abs Bosque 02/23/2023 0.56 <0.87 k/uL Final Eosinophils % 02/23/2023 7.0 % Final Abs Eosin 02/23/2023 0.42 <0.46 k/uL Final Basophils % 02/23/2023 1.5 % Final Abs Baso 02/23/2023 0.09 <0.11 k/uL Final Immature Granulocytes % 02/23/2023 0.3 % Final Abs Immature Gran 02/23/2023 <0.03 <0.10 k/uL Final NRBC 02/23/2023 0.0 /100 WBC Final Absolute nRBC 02/23/2023 <0.01 <0.01 k/uL Final Diff Type 02/23/2023 Auto Final Magnesium 02/23/2023 2.2 1.7 - 2.3 mg/dL Final Phencyclidine Urine 02/23/2023 Negative Negative Final Cutoff threshold at 25 ng/mL. Benzodiazepines Urine 02/23/2023 Negative Negative Final Cutoff threshold at 200 ng/mL. Cocaine Urine 02/23/2023 Negative Negative Final Cutoff threshold at 300 ng/mL. Amphetamines Urine 02/23/2023 Negative Negative Final Cutoff threshold at 1000 ng/mL. Cannabinoids, Urine 02/23/2023 Negative Negative Final Cutoff threshold at 50 ng/mL. Opiates Urine 02/23/2023 Negative Negative Final Cutoff threshold at 300 ng/mL. Barbiturates Urine 02/23/2023 Negative Negative Final Cutoff threshold at 200 ng/mL. Ethanol, Urine 02/23/2023 <11 <11 mg/dL Final Oxycodone, Urine 02/23/2023 Negative Negative Final Cutoff threshold at 100 ng/mL. Glucose, Point of Care 02/23/2023 83 74 - 99 mg/dL Final Comment: Location:[facility], [address] [place] [address], [id number] The Accu-Chek Inform II glucose meter has not been approved for testing on patients receiving intensive medical intervention or therapy and results from this point of care glucose test should not be used for patient management decisions in these cases. Inaccurate results may also occur from other interfering factors, such as N-acetylcysteine (blood concentrations of greater than 5mg/dL), galactose, extremes of hematocrit (<10 or >65), or high doses of ascorbic acid (vitamin C) greater than 3mg/dL. Consider alternate testing mechanisms (e.g. core lab, blood gas instrument) in the above situations. Glucose, Point of Care 02/23/2023 92 74 - 99 mg/dL Final Comment: Location:[facility], [address] [place] [address], [id number] The Accu-Chek Inform II glucose meter has not been approved for testing on patients receiving intensive medical intervention or therapy and results from this point of care glucose test should not be used for patient management decisions in these cases. Inaccurate results may also occur from other interfering factors, such as N-acetylcysteine (blood concentrations of greater than 5mg/dL), galactose, extremes of hematocrit (<10 or >65), or high doses of ascorbic acid (vitamin C) greater than 3mg/dL. Consider alternate testing mechanisms (e.g. core lab, blood gas instrument) in the above situations. Glucose, Point of Care 02/23/2023 106 (A) 74 - 99 mg/dL Final Comment: Location:[facility], [address] [place] [address], [facility] The Accu-Chek Inform II glucose meter has not been approved for testing on patients receiving intensive medical intervention or therapy and results from this point of care glucose test should not be used for patient management decisions in these cases. Inaccurate results may also occur from other interfering factors, such as N-acetylcysteine (blood concentrations of greater than 5mg/dL), galactose, extremes of hematocrit (<10 or >65), or high doses of ascorbic acid (vitamin C) greater than 3mg/dL. Consider alternate testing mechanisms (e.g. core lab, blood gas instrument) in the above situations. WBC 02/24/2023 5.66 3.70 - 11.00 k/uL Final RBC 02/24/2023 4.16 (L) 4.20 - 6.00 m/uL Final Hemoglobin 02/24/2023 13.6 13.0 - 17.0 g/dL Final Hematocrit 02/24/2023 41.2 39.0 - 51.0 % Final MCV 02/24/2023 99.0 80.0 - 100.0 fL Final MCH 02/24/2023 32.7 26.0 - 34.0 pg Final MCHC 02/24/2023 33.0 30.5 - 36.0 g/dL Final RDW-CV 02/24/2023 11.6 11.5 - 15.0 % Final Platelet Count 02/24/2023 190 150 - 400 k/uL Final MPV 02/24/2023 9.5 9.0 - 12.7 fL Final Absolute nRBC 02/24/2023 <0.01 <0.01 k/uL Final Glucose 02/24/2023 92 74 - 99 mg/dL Final The [place] Diabetes Association (ADA) provides guidance for cutoff values for fasting glucose and random glucose. The ADA defines fasting as no caloric intake for at least 8 hours. Fasting plasma glucose results between 100 to 125 mg/dL indicate increased risk for diabetes (prediabetes). Fasting plasma glucose results greater than or equal to 126 mg/dL meet the criteria for diagnosis of diabetes. In the absence of unequivocal hyperglycemia, results should be confirmed by repeat testing. In a patient with classic symptoms of hyperglycemia or hyperglycemic crisis, random plasma glucose results greater than or equal to 200 mg/dL meet the criteria for diagnosis of diabetes. Reference: Standards of Medical Care in Diabetes 2016, [place] [employer]. Diabetes Care. 2016.39(Suppl 1). BUN 02/24/2023 19 9 - 24 mg/dL Final Creatinine 02/24/2023 1.22 0.73 - 1.22 mg/dL Final Sodium 02/24/2023 138 136 - 144 mmol/L Final Potassium 02/24/2023 4.2 3.7 - 5.1 mmol/L Final Chloride 02/24/2023 104 97 - 105 mmol/L Final CO2 02/24/2023 26 22 - 30 mmol/L Final Anion Gap 02/24/2023 8 (L) 9 - 18 mmol/L Final Calcium, Total 02/24/2023 9.2 8.5 - 10.2 mg/dL Final Estimated Glomerular Filtration Ra* 02/24/2023 63 >=60 mL/min/1.73m Final Estimated Glomerular Filtration Rate (eGFR) is calculated using the 2020 CKD-EPI creatinine equation. This equation utilizes serum creatinine, sex, and age as parameters. The creatinine assay has traceable calibration to isotope dilution-mass spectrometry. Refer to KDIGO guidelines for clinical interpretation. In patients with unstable renal function, e.g. those with acute kidney injury, the eGFR may not accurately reflect actual GFR. Glucose, Point of Care 02/24/2023 98 74 - 99 mg/dL Final Comment: Location:[facility], [address] [place] [address], [id number] The Accu-Chek Inform II glucose meter has not been approved for testing on patients receiving intensive medical intervention or therapy and results from this point of care glucose test should not be used for patient management decisions in these cases. Inaccurate results may also occur from other interfering factors, such as N-acetylcysteine (blood concentrations of greater than 5mg/dL), galactose, extremes of hematocrit (<10 or >65), or high doses of ascorbic acid (vitamin C) greater than 3mg/dL. Consider alternate testing mechanisms (e.g. core lab, blood gas instrument) in the above situations. Glucose, Point of Care 02/23/2023 85 74 - 99 mg/dL Final Comment: Location:[facility], [address] [place] [address], [id number] The Accu-Chek Inform II glucose meter has not been approved for testing on patients receiving intensive medical intervention or therapy and results from this point of care glucose test should not be used for patient management decisions in these cases. Inaccurate results may also occur from other interfering factors, such as N-acetylcysteine (blood concentrations of greater than 5mg/dL), galactose, extremes of hematocrit (<10 or >65), or high doses of ascorbic acid (vitamin C) greater than 3mg/dL. Consider alternate testing mechanisms (e.g. core lab, blood gas instrument) in the above situations. Objective 06/17/23 1118 BP: 100/80 Pulse: 79 Temp: 36.8 C (98.3 F) TempSrc: Tympanic SpO2: 97% Weight: 70.3 kg (155 lb) Height: 165.1 cm (5' 5") BMI 25.79 kg/(m^2) Physical Exam Constitutional: Appearance: Normal appearance. HENT: Head: Normocephalic and atraumatic. Right Ear: Tympanic membrane normal. Left Ear: Tympanic membrane normal. Nose: Nose normal. No congestion. Mouth/Throat: Mouth: Mucous membranes are dry. Eyes: Extraocular Movements: Extraocular movements intact. Pupils: Pupils are equal, round, and reactive to light. Cardiovascular: Rate and Rhythm: Normal rate and regular rhythm. Pulmonary: Effort: Pulmonary effort is normal. Breath sounds: Normal breath sounds. Abdominal: General: Abdomen is flat. Palpations: Abdomen is soft. Musculoskeletal: General: Normal range of motion. Right elbow: Swelling present. Tenderness present. Left elbow: Normal. Arms: Cervical back: Normal range of motion and neck supple. Comments: Has tenderness at the right lateral epicondyle I will right arm. Consistent with the epicondylitis. Skin: General: Skin is warm and dry. Neurological: General: No focal deficit present. Mental Status: He is alert and oriented to person, place, and time. Psychiatric: Mood and Affect: Mood is depressed. Behavior: Behavior normal. Cognition and Memory: Cognition is impaired. Memory is impaired. Data Reviewed: Most recent labs and imaging results. ASSESSMENT/PLAN: 1. Lateral epicondylitis of right elbow - ICD9: 726.32, ICD10: M77.11 (primary diagnosis) 2. Anxiety with depression - ICD9: 300.4, ICD10: F41.8 - BUPROPION XL 300 MG 24 HR TAB 3. Stage 3a chronic kidney disease (HCC) - ICD9: 585.3, ICD10: N18.31 - eGFR: Stable - Counseled on avoiding NSAIDs, adequate hydration - ATORVASTATIN 80 MG TABLET - LIPID PANEL BASIC - COMP METABOLIC PANEL - CBC 4. High cholesterol - ICD9: 272.0, ICD10: E78.00 - ATORVASTATIN 80 MG TABLET - LIPID PANEL BASIC - COMP METABOLIC PANEL - CBC No problem-specific Assessment & Plan notes found for this encounter. Return in about 6 months (around 12/18/2023) for Annual physical exam. Provider: Giorgio Fernandez DO Date: June 17, 2023 Time: 11:25 AM documented in this encounter [facility] 05-09-2023 Telephone encounter Note Noted. Thx for update. [facility]23 Miscellaneous Notes Noted. Thx for update. Name of caller: Lexi Contact phone number: [phone] Relationship to Patient: Radha PT Provider: Amy Practice: [facility] Chief Complaint/Reason for Call: Lexi called in stating the pt called in to schedule his driving eval. It is scheduled 06/18 at 1:30pm. Lexi advised that the OT stated this is the pt's last chance to come to the appt as he has already cancelled so many times on them. Just wanted to FYI. Best time of day caller can be reached: Any Patient advised that office/PCP has 24-48 business hours to return their call: No documented in this encounter [facility] 05-08-2023 Telephone encounter Note Name of caller: Leix Contact phone number: [phone] Relationship to Patient: Radha PT Provider: Amy Practice: [facility] Chief Complaint/Reason for Call: Lexi called in stating the pt called in to schedule his driving eval. It is scheduled 06/18 at 1:30pm. Lexi advised that the OT stated this is the pt's last chance to come to the appt as he has already cancelled so many times on them. Just wanted to FYI. Best time of day caller can be reached: Any Patient advised that office/PCP has 24-48 business hours to return their call: No [facility] 05-06-2023 Miscellaneous Notes Patient/Patient's Pharmacy is requesting the following refill. Patient's last appointment: 03/13/23. Next appointment: 05/22/23 . Requested Prescriptions Pending Prescriptions Disp Refills atorvastatin (LIPITOR) 80 mg tablet [Pharmacy Med Name: Atorvastatin Calcium Oral Tablet 80 MG] 30 tablet 0 Sig: TAKE ONE TABLET BY MOUTH EVERY DAY AT BEDTIME Patient Phone numbers: [phone] (home) Request is for script(s) to be escript to pharmacy. Tanya Whiting LPN documented in this encounter [facility] 04-25-2023 Note Addended by: GIOVANNI REYES on: 04/25/2023 08:57 AM Modules accepted: Orders [facility] 04-25-2023 Miscellaneous Notes Addended by: GIOVANNI REYES on: 04/25/2023 08:57 AM Modules accepted: Orders Driving eval update... I spoke to Lindsay and she is going to schedule for the patient. Patients is now in assisted living. Daughter Lindsay will be the one to call and get schedule the in car portion. I told her I would check in with her next week. Noted. Thx for update. Update 03/27 I left a message on Home voicemail, dtr Lindsay voicemail and I spoke to Lila. They are now aware that the patient missed his 02/20/23 appointment and it needs to be rescheduled SAMIRA. Lila did say that this patient is currently driving. Lila was in the hospital around the time of his scheduled in car portion of his eval and that is probably why it was forgotten about. She also gave permission to keep daughter Lindsay in the loop with all issues with this patient going forward. I spoke to the pt today. He understands that he needs to take the test. I informed him that the [facility] will reach out to him to schedule. He understands. Please advise pt that he needs driving evaluation. If he does not want to proceed then I will need to send letter to [facility] for them to complete their evaluation. Driving eval update... I checked in with the [facility] to see if this pt had been scheduled yet. Don said she called him 11/01/2022 and he told her "he is driving and does not need the evaluation." documented in this encounter [facility] 04-24-2023 Telephone encounter Note Driving eval update... I spoke to Lindsay and she is going to schedule for the patient. Patients is now in assisted living. Daughter Lindsay will be the one to call and get schedule the in car portion. I told her I would check in with her next week. [facility] 04-24-2023 Miscellaneous Notes Driving eval update... I spoke to Lindsay and she is going to schedule for the patient. Patients is now in assisted living. Daughter Lindsay will be the one to call and get schedule the in car portion. I told her I would check in with her next week. Noted. Thx for update. Update 03/27 I left a message on Home voicemail, dtr Lindsay voicemail and I spoke to Lila. They are now aware that the patient missed his 02/20/23 appointment and it needs to be rescheduled SAMIRA. Lila did say that this patient is currently driving. Lila was in the hospital around the time of his scheduled in car portion of his eval and that is probably why it was forgotten about. She also gave permission to keep daughter Lindsay in the loop with all issues with this patient going forward. I spoke to the pt today. He understands that he needs to take the test. I informed him that the [facility] will reach out to him to schedule. He understands. Please advise pt that he needs driving evaluation. If he does not want to proceed then I will need to send letter to [facility] for them to complete their evaluation. Driving eval update... I checked in with the [facility] to see if this pt had been scheduled yet. Don said she called him 11/01/2022 and he told her "he is driving and does not need the evaluation." documented in this encounter [facility] 04-16-2023 Miscellaneous Notes Patient/Patient's Pharmacy is requesting the following refill. Patient's last appointment: 03/13/23. Next appointment: 05/22/23 . Requested Prescriptions Pending Prescriptions Disp Refills ondansetron (ZOFRAN) 4 mg tablet [Pharmacy Med Name: Ondansetron HCl Oral Tablet 4 MG] 30 tablet 0 Sig: TAKE 1 TO 2 TABLET BY MOUTH EVERY 8 HOURS IF NEEDED FOR NAUSEA atorvastatin (LIPITOR) 80 mg tablet 30 tablet 0 Sig: Take 1 tablet by mouth daily at bedtime. clopidogrel (PLAVIX) 75 mg tablet 90 tablet 3 Sig: Take 1 tablet by mouth once daily. carbidopa-levodopa (SINEMET 25-100) 25-100 mg per tablet Sig: Take 1 tablet by mouth three times daily. Patient Phone numbers: [phone] (home) Request is for script(s) to be escript to pharmacy. Tanya Whiting LPN Patient's daughter called stating the patient is OUT of these four medications. atorvastatin (LIPITOR) 80 mg tablet () ondansetron (ZOFRAN) 4 mg tablet carbidopa-levodopa (SINEMET 25-100) 25-100 mg per tablet clopidogrel (PLAVIX) 75 mg tablet She is asking if refills could be sent to [facility] [phone] Please advise, thank you! Bharati Johnson documented in this encounter [facility] 03-29-2023 Telephone encounter Note Noted. Thx for update. [employer] Phone: 03-29-2023 Miscellaneous Notes Noted. Thx for update. Update 03/27 I left a message on Home voicemail, dtr Lindsay voicemail and I spoke to Lila. They are now aware that the patient missed his 02/20/23 appointment and it needs to be rescheduled SAMIRA. Lila did say that this patient is currently driving. Lila was in the hospital around the time of his scheduled in car portion of his eval and that is probably why it was forgotten about. She also gave permission to keep daughter Lindsay in the loop with all issues with this patient going forward. I spoke to the pt today. He understands that he needs to take the test. I informed him that the [facility] will reach out to him to schedule. He understands. Please advise pt that he needs driving evaluation. If he does not want to proceed then I will need to send letter to [facility] for them to complete their evaluation. Driving eval update... I checked in with the [facility] to see if this pt had been scheduled yet. Don said she called him 11/01/2022 and he told her "he is driving and does not need the evaluation." documented in this encounter [facility] 03-27-2023 Miscellaneous Notes Update 03/27 I left a message on Home voicemail, dtr Lindsay voicemail and I spoke to Lila. They are now aware that the patient missed his 02/20/23 appointment and it needs to be rescheduled SAMIRA. Lila did say that this patient is currently driving. Lila was in the hospital around the time of his scheduled in car portion of his eval and that is probably why it was forgotten about. She also gave permission to keep daughter Lindsay in the loop with all issues with this patient going forward. I spoke to the pt today. He understands that he needs to take the test. I informed him that the [facility] will reach out to him to schedule. He understands. Please advise pt that he needs driving evaluation. If he does not want to proceed then I will need to send letter to [facility] for them to complete their evaluation. Driving eval update... I checked in with the [facility] to see if this pt had been scheduled yet. Don said she called him 11/01/2022 and he told her "he is driving and does not need the evaluation." documented in this encounter [facility] 03-27-2023 Telephone encounter Note Update 03/27 I left a message on Home voicemail, dtr Lindsay voicemail and I spoke to Lila. They are now aware that the patient missed his 02/20/23 appointment and it needs to be rescheduled SAMIRA. Lila did say that this patient is currently driving. Lila was in the hospital around the time of his scheduled in car portion of his eval and that is probably why it was forgotten about. She also gave permission to keep daughter Lindsay in the loop with all issues with this patient going forward. [facility] 03-14-2023 Miscellaneous Notes Will have doctor fill out at 03/13/23 visit. Izabel Pt's daughter gave us [facility] paperwork to be [facility] out- she isnt sure what needed filled out on it but said she would check in with us in a day or two. Please contact her with any questions or updates. Gave to Liv. Please advise Svitlana Roy documented in this encounter [facility] 03-13-2023 History of Present illness Narrative Images from the original note were not included. Giorgio Fernandez, [facility] 1946 [address], [address] [place] [address] Date of Evaluation: 03/15/2023 Patient Name: Jonathon Perales : 1950 Chief Complaint: Patient presents with: Hypertension: Bp follow up Hyperlipidemia Nursing Intake: There are no exam notes on file for this visit. Subjective Mr. Perales is a 72 year old male who presents with the following complaint(s): HPI Hypertension Reviewed all medications, tolerating medications well blood pressures have been stable. Denies chest pain or shortness of breath. Hyperlipidemia Trying to watch diet lower in fat. Check and review lipid panel. Continue current treatment plan. Dizziness admitted 02/23 for L sided weakness. 72 yo M with hx of CVA presenting with acute onset left-sided weakness and numbness possibly secondary to recrudescence of prior symptoms. Patient recently underwent carotid endarterectomy last month with no significant stenosis noted on recent CTA head and neck. Neurology was consulted. MRI brain performed showing no acute infarcts or hemorrhage. Symptoms resolved and PTOT cleared for discharge home. He is back to his baseline.I discussed the MRI and plan today with the neurologist, and he is ok for discharge home, and he recommends to continue his DAPT, aspirin and plavix at previous doses, and recommends changing pravastatin to atorvastatin 80mg daily. Continue zetia. I advised patient he can resume his blood pressure medications s/p 24 hours permissive hypertension, and he should keep blood pressure journal to take to his doctor, and he should continue aggressive risk factor management. Can follow up outpatient with his PCP and neurologist as scheduled. Spouse is in Assisted Living now may move in with her in next few months Review of Systems Constitutional: Negative for activity change, appetite change, fatigue and fever. HENT: Negative for congestion, dental problem, ear pain, hearing loss, sinus pressure, sinus pain and sore throat. Eyes: Negative for pain, discharge and visual disturbance. Respiratory: Negative for cough, chest tightness, shortness of breath and wheezing. Cardiovascular: Negative for chest pain and leg swelling. Gastrointestinal: Negative for abdominal pain, blood in stool, constipation, diarrhea, nausea and vomiting. Endocrine: Negative for cold intolerance and heat intolerance. Genitourinary: Negative for difficulty urinating, dysuria and frequency. Musculoskeletal: Negative for back pain, myalgias and neck pain. Skin: Negative for rash. Neurological: Negative for dizziness, syncope and headaches. Hematological: Does not bruise/bleed easily. Psychiatric/Behavioral: Positive for confusion and decreased concentration. Negative for dysphoric mood, sleep disturbance and suicidal ideas. The patient is nervous/anxious. 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 Zazueta EGD WITH BIOPSY(S) 01/13/2013 Dr. Zauzeta EGD WITH BIOPSY(S) 12/08/2018 hiatal hernia; 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 Everett F COLONOSCOPY WITH POLYPECTOMY 05/06/2002 tubular adenoma; chronic colitis; Dr. Garcia F COLONOSCOPY WITH POLYPECTOMY 12/08/2018 tubular adenoma; Dr. Zazueta FAMILY HISTORY Problem Relation Age of Onset Heart disease Mother Breast Cancer Mother other (back) Mother Heart disease Father Coronary Artery Disease Father Alcohol/Drug Father other (kidney) Father Breast Cancer Sister Hypertension Sister No Known Problems Sister Social History Tobacco Use Smoking status: Former Types: Cigars Quit date: 11/2022 Years since quittin.3 Smokeless tobacco: Never Vaping Use Vaping Use: Never used Substance Use Topics Alcohol use: No Drug use: No Current Outpatient Medications Medication Sig Dispense Refill atorvastatin (LIPITOR) 80 mg tablet Take 1 tablet by mouth daily at bedtime. 30 tablet 0 venlafaxine ER (EFFEXOR XR) 75 mg 24 hr capsule Take 75 mg by mouth once daily. carbidopa-levodopa (SINEMET 25-100) 25-100 mg per tablet Take 1 tablet by mouth three times daily. lisinopril (ZESTRIL, PRINIVIL) 10 mg tablet Take 1 tablet by mouth once daily. [address] (PROTONIX) 40 mg tablet Take 1 tablet by mouth once daily. 90 tablet 3 ezetimibe (ZETIA) 10 mg tablet Take 1 tablet by mouth once daily. (Patient taking differently: Take 10 mg by mouth daily at bedtime.) 90 tablet 3 metoprolol tartrate, short acting, (LOPRESSOR) 25 mg tablet Take 0.5 tablets by mouth twice daily. 90 tablet 3 clopidogrel (PLAVIX) 75 mg tablet Take 1 tablet by mouth once daily. 90 tablet 3 acetaminophen (TYLENOL) 325 mg tablet Take 2 tablets by mouth every 6 hours as needed. cholecalciferol (VITAMIN D3) 50 mcg (2,000 unit) tablet Take 2,000 Units by mouth once daily. Cyanocobalamin 2,000 mcg TbER Take by mouth once daily. aspirin, enteric coated (ASPIRIN, ENTERIC COATED) 81 mg EC tablet Take 81 mg by mouth once daily. meclizine (ANTIVERT) 25 mg tab Take 1 tablet by mouth every 6 hours as needed (for dizziness). 30 tablet 1 ondansetron (ZOFRAN) 4 mg tablet 1 to 2 tablets PO every 8 hours prn nausea 30 tablet 0 buPROPion XL (WELLBUTRIN XL) 300 mg 24 hr tablet Take 1 tablet by mouth once daily at 6 am. 30 tablet 3 No current facility-administered medications for this visit. I have confirmed and edited as necessary the chief complaint, medications, past medical, family and social histories obtained by others. Labs Completed Today: No visits with results within 1 Day(s) from this visit. Latest known visit with results is: Admission on 02/23/2023, Discharged on 02/24/2023 Component Date Value Ref Range Status Cholesterol, Total 02/23/2023 247 (A) <200 mg/dL Final <200 mg/dL, Desirable 200-239 mg/dL, Borderline high >239 mg/dL, High Triglyceride 02/23/2023 144 <150 mg/dL Final <150 mg/dL, Normal 150-199 mg/dL, Borderline high 200-499 mg/dL, High >499 mg/dL, Very high HDL Cholesterol 02/23/2023 58 >39 mg/dL Final 40-59 mg/dL, Acceptable >59 mg/dL, High: Negative risk factor for coronary heart disease <40 mg/dL, Low: Positive risk factor for coronary heart disease Non HDL Cholesterol 02/23/2023 189 (A) <130 mg/dL Final <130 mg/dL, Optimal 130-159 mg/dL, Near optimal/above optimal 160-189 mg/dL, Borderline high 190-219 mg/dL, High >219 mg/dL, Very high Secondary prevention optimal non HDL Cholesterol levels are recommended to be <100 mg/dL Fasting Time 02/23/2023 12 hrs Final VLDL Cholesterol 02/23/2023 29 <30 mg/dL Final TC:HDL Ratio 02/23/2023 4.26 <5.10 Final LDL Cholesterol 02/23/2023 160 (A) <100 mg/dL Final <100 mg/dL, Optimal 100-129 mg/dL, Near optimal/above optimal 130-159 mg/dL, Borderline high 160-189 mg/dL, High >189 mg/dL, Very high Secondary prevention optimal LDL Cholesterol levels are recommended to be < 70 mg/dL LDL:HDL Ratio 02/23/2023 2.76 (A) <2.54 Final Reference: 1. National Cholesterol Education Program ATP III Guideline At-A-Glance Quick Desk Reference: National Heart, Lung, and Blood [place]. National Institutes of Health. 2001: NIH Publication No. 01-3305. 2. An International Atherosclerosis Society position paper: global recommendations for the management of dyslipidemia: executive summary, Atherosclerosis. 2014: 232(2):410-413. Hemoglobin A1C 02/23/2023 5.6 4.3 - 5.6 % Final [place] Diabetes Association guidelines indicate that patients with HgbA1c in the range 5.7-6.4% are at increased risk for development of diabetes, and intervention by lifestyle modification may be beneficial. HgbA1c greater or equal to 6.5% is considered diagnostic of diabetes. Estimated Average Glucose 02/23/2023 114 mg/dL Final eAG: (Estimated average glucose) is a calculated value from HgbA1c and is real estate representative of the average blood glucose level in the last 2-3 month period. Glucose 02/23/2023 86 74 - 99 mg/dL Final The [place] Diabetes Association (ADA) provides guidance for cutoff values for fasting glucose and random glucose. The ADA defines fasting as no caloric intake for at least 8 hours. Fasting plasma glucose results between 100 to 125 mg/dL indicate increased risk for diabetes (prediabetes). Fasting plasma glucose results greater than or equal to 126 mg/dL meet the criteria for diagnosis of diabetes. In the absence of unequivocal hyperglycemia, results should be confirmed by repeat testing. In a patient with classic symptoms of hyperglycemia or hyperglycemic crisis, random plasma glucose results greater than or equal to 200 mg/dL meet the criteria for diagnosis of diabetes. Reference: Standards of Medical Care in Diabetes 2016, [place] Diabetes Association. Diabetes Care. 2016.39(Suppl 1). BUN 02/23/2023 19 9 - 24 mg/dL Final Creatinine 02/23/2023 1.25 (A) 0.73 - 1.22 mg/dL Final Sodium 02/23/2023 139 136 - 144 mmol/L Final Potassium 02/23/2023 4.4 3.7 - 5.1 mmol/L Final Chloride 02/23/2023 103 97 - 105 mmol/L Final CO2 02/23/2023 26 22 - 30 mmol/L Final Anion Gap 02/23/2023 10 9 - 18 mmol/L Final Calcium, Total 02/23/2023 9.0 8.5 - 10.2 mg/dL Final Estimated Glomerular Filtration Ra* 02/23/2023 61 >=60 mL/min/1.73m Final Estimated Glomerular Filtration Rate (eGFR) is calculated using the 2020 CKD-EPI creatinine equation. This equation utilizes serum creatinine, sex, and age as parameters. The creatinine assay has traceable calibration to isotope dilution-mass spectrometry. Refer to KDIGO guidelines for clinical interpretation. In patients with unstable renal function, e.g. those with acute kidney injury, the eGFR may not accurately reflect actual GFR. WBC 02/23/2023 6.00 3.70 - 11.00 k/uL Final RBC 02/23/2023 4.09 (A) 4.20 - 6.00 m/uL Final Hemoglobin 02/23/2023 13.6 13.0 - 17.0 g/dL Final Hematocrit 02/23/2023 41.2 39.0 - 51.0 % Final MCV 02/23/2023 100.7 (A) 80.0 - 100.0 fL Final MCH 02/23/2023 33.3 26.0 - 34.0 pg Final MCHC 02/23/2023 33.0 30.5 - 36.0 g/dL Final RDW-CV 02/23/2023 11.9 11.5 - 15.0 % Final Platelet Count 02/23/2023 207 150 - 400 k/uL Final MPV 02/23/2023 9.9 9.0 - 12.7 fL Final Neutrophils % 02/23/2023 50.2 % Final Abs Neut 02/23/2023 3.01 1.45 - 7.50 k/uL Final Lymphocytes % 02/23/2023 31.7 % Final Abs Lymph 02/23/2023 1.90 1.00 - 4.00 k/uL Final Monocytes % 02/23/2023 9.3 % Final Abs Bosque 02/23/2023 0.56 <0.87 k/uL Final Eosinophils % 02/23/2023 7.0 % Final Abs Eosin 02/23/2023 0.42 <0.46 k/uL Final Basophils % 02/23/2023 1.5 % Final Abs Baso 02/23/2023 0.09 <0.11 k/uL Final Immature Granulocytes % 02/23/2023 0.3 % Final Abs Immature Gran 02/23/2023 <0.03 <0.10 k/uL Final NRBC 02/23/2023 0.0 /100 WBC Final Absolute nRBC 02/23/2023 <0.01 <0.01 k/uL Final Diff Type 02/23/2023 Auto Final Magnesium 02/23/2023 2.2 1.7 - 2.3 mg/dL Final Phencyclidine Urine 02/23/2023 Negative Negative Final Cutoff threshold at 25 ng/mL. Benzodiazepines Urine 02/23/2023 Negative Negative Final Cutoff threshold at 200 ng/mL. Cocaine Urine 02/23/2023 Negative Negative Final Cutoff threshold at 300 ng/mL. Amphetamines Urine 02/23/2023 Negative Negative Final Cutoff threshold at 1000 ng/mL. Cannabinoids, Urine 02/23/2023 Negative Negative Final Cutoff threshold at 50 ng/mL. Opiates Urine 02/23/2023 Negative Negative Final Cutoff threshold at 300 ng/mL. Barbiturates Urine 02/23/2023 Negative Negative Final Cutoff threshold at 200 ng/mL. Ethanol, Urine 02/23/2023 <11 <11 mg/dL Final Oxycodone, Urine 02/23/2023 Negative Negative Final Cutoff threshold at 100 ng/mL. Glucose, Point of Care 02/23/2023 83 74 - 99 mg/dL Final Comment: Location:[facility], [address] [place] [address], [facility] The Accu-Chek Inform II glucose meter has not been approved for testing on patients receiving intensive medical intervention or therapy and results from this point of care glucose test should not be used for patient management decisions in these cases. Inaccurate results may also occur from other interfering factors, such as N-acetylcysteine (blood concentrations of greater than 5mg/dL), galactose, extremes of hematocrit (<10 or >65), or high doses of ascorbic acid (vitamin C) greater than 3mg/dL. Consider alternate testing mechanisms (e.g. core lab, blood gas instrument) in the above situations. Glucose, Point of Care 02/23/2023 92 74 - 99 mg/dL Final Comment: Location:[facility], [address] [place] [address], [facility] The Accu-Chek Inform II glucose meter has not been approved for testing on patients receiving intensive medical intervention or therapy and results from this point of care glucose test should not be used for patient management decisions in these cases. Inaccurate results may also occur from other interfering factors, such as N-acetylcysteine (blood concentrations of greater than 5mg/dL), galactose, extremes of hematocrit (<10 or >65), or high doses of ascorbic acid (vitamin C) greater than 3mg/dL. Consider alternate testing mechanisms (e.g. core lab, blood gas instrument) in the above situations. Glucose, Point of Care 02/23/2023 106 (A) 74 - 99 mg/dL Final Comment: Location:[address], [facility] The Accu-Chek Inform II glucose meter has not been approved for testing on patients receiving intensive medical intervention or therapy and results from this point of care glucose test should not be used for patient management decisions in these cases. Inaccurate results may also occur from other interfering factors, such as N-acetylcysteine (blood concentrations of greater than 5mg/dL), galactose, extremes of hematocrit (<10 or >65), or high doses of ascorbic acid (vitamin C) greater than 3mg/dL. Consider alternate testing mechanisms (e.g. core lab, blood gas instrument) in the above situations. WBC 02/24/2023 5.66 3.70 - 11.00 k/uL Final RBC 02/24/2023 4.16 (A) 4.20 - 6.00 m/uL Final Hemoglobin 02/24/2023 13.6 13.0 - 17.0 g/dL Final Hematocrit 02/24/2023 41.2 39.0 - 51.0 % Final MCV 02/24/2023 99.0 80.0 - 100.0 fL Final MCH 02/24/2023 32.7 26.0 - 34.0 pg Final MCHC 02/24/2023 33.0 30.5 - 36.0 g/dL Final RDW-CV 02/24/2023 11.6 11.5 - 15.0 % Final Platelet Count 02/24/2023 190 150 - 400 k/uL Final MPV 02/24/2023 9.5 9.0 - 12.7 fL Final Absolute nRBC 02/24/2023 <0.01 <0.01 k/uL Final Glucose 02/24/2023 92 74 - 99 mg/dL Final The [place] Diabetes Association (ADA) provides guidance for cutoff values for fasting glucose and random glucose. The ADA defines fasting as no caloric intake for at least 8 hours. Fasting plasma glucose results between 100 to 125 mg/dL indicate increased risk for diabetes (prediabetes). Fasting plasma glucose results greater than or equal to 126 mg/dL meet the criteria for diagnosis of diabetes. In the absence of unequivocal hyperglycemia, results should be confirmed by repeat testing. In a patient with classic symptoms of hyperglycemia or hyperglycemic crisis, random plasma glucose results greater than or equal to 200 mg/dL meet the criteria for diagnosis of diabetes. Reference: Standards of Medical Care in Diabetes 2016, [place] Diabetes [employer]. Diabetes Care. 2016.39(Suppl 1). BUN 02/24/2023 19 9 - 24 mg/dL Final Creatinine 02/24/2023 1.22 0.73 - 1.22 mg/dL Final Sodium 02/24/2023 138 136 - 144 mmol/L Final Potassium 02/24/2023 4.2 3.7 - 5.1 mmol/L Final Chloride 02/24/2023 104 97 - 105 mmol/L Final CO2 02/24/2023 26 22 - 30 mmol/L Final Anion Gap 02/24/2023 8 (A) 9 - 18 mmol/L Final Calcium, Total 02/24/2023 9.2 8.5 - 10.2 mg/dL Final Estimated Glomerular Filtration Ra* 02/24/2023 63 >=60 mL/min/1.73m Final Estimated Glomerular Filtration Rate (eGFR) is calculated using the 2020 CKD-EPI creatinine equation. This equation utilizes serum creatinine, sex, and age as parameters. The creatinine assay has traceable calibration to isotope dilution-mass spectrometry. Refer to KDIGO guidelines for clinical interpretation. In patients with unstable renal function, e.g. those with acute kidney injury, the eGFR may not accurately reflect actual GFR. Glucose, Point of Care 02/24/2023 98 74 - 99 mg/dL Final Comment: Location:[facility], [address] [place] [address], [facility] The Accu-Chek Inform II glucose meter has not been approved for testing on patients receiving intensive medical intervention or therapy and results from this point of care glucose test should not be used for patient management decisions in these cases. Inaccurate results may also occur from other interfering factors, such as N-acetylcysteine (blood concentrations of greater than 5mg/dL), galactose, extremes of hematocrit (<10 or >65), or high doses of ascorbic acid (vitamin C) greater than 3mg/dL. Consider alternate testing mechanisms (e.g. core lab, blood gas instrument) in the above situations. Glucose, Point of Care 02/23/2023 85 74 - 99 mg/dL Final Comment: Location:[facility], [address] [place] [address], [facility] The Accu-Chek Inform II glucose meter has not been approved for testing on patients receiving intensive medical intervention or therapy and results from this point of care glucose test should not be used for patient management decisions in these cases. Inaccurate results may also occur from other interfering factors, such as N-acetylcysteine (blood concentrations of greater than 5mg/dL), galactose, extremes of hematocrit (<10 or >65), or high doses of ascorbic acid (vitamin C) greater than 3mg/dL. Consider alternate testing mechanisms (e.g. core lab, blood gas instrument) in the above situations. Objective 03/13/23 0946 BP: 168/102 Pulse: 70 Temp: 36.6 C (97.8 F) SpO2: 96% Weight: 73.5 kg (162 lb) Height: 165.1 cm (5' 5") BMI 26.96 kg/(m^2) Physical Exam Constitutional: Appearance: Normal appearance. HENT: Head: Normocephalic and atraumatic. Right Ear: Tympanic membrane normal. Left Ear: Tympanic membrane normal. Nose: Nose normal. No congestion. Mouth/Throat: Mouth: Mucous membranes are dry. Eyes: Extraocular Movements: Extraocular movements intact. Pupils: Pupils are equal, round, and reactive to light. Cardiovascular: Rate and Rhythm: Normal rate and regular rhythm. Pulmonary: Effort: Pulmonary effort is normal. Breath sounds: Normal breath sounds. Abdominal: General: Abdomen is flat. Palpations: Abdomen is soft. Musculoskeletal: General: Normal range of motion. Cervical back: Normal range of motion and neck supple. Skin: General: Skin is warm and dry. Neurological: General: No focal deficit present. Mental Status: He is alert and oriented to person, place, and time. Psychiatric: Mood and Affect: Mood normal. Behavior: Behavior normal. Data Reviewed: Most recent labs and imaging results. ASSESSMENT/PLAN: 1. Primary hypertension - ICD9: 401.9, ICD10: I10 (primary diagnosis) - good control - Continue current medication(s) - Recommended regular aerobic exercise. - Recommend home blood pressure monitoring, to bring results in on next visit - Goal of BP <130/80 2. Vertigo - ICD9: 780.4, ICD10: R422 - MECLIZINE 25 MG TABLET 3. TIA (transient ischemic attack) - ICD9: 435.9, ICD10: G45.9 4. Carotid stenosis, right - ICD9: 433.10, ICD10: I65.21 5. Pure hypercholesterolemia - ICD9: 272.0, ICD10: E78.00 Giorgio Fernandez DO Return Keep May. Provider: Giorgio Fernandez DO Date: March 13, 2023 Time: 9:55 AM documented in this encounter [facility] 02-26-2023 History of Present illness Narrative TRANSITIONAL CARE MANAGEMENT (TCM) COMMUNITY MONITORING PROGRAM - [facility] Provider Action/FYI: Patient has appt on 03/07/23 with [facility] SUMMARY: Pt discharged from [facility] on 02/24/23. Admitted for: Suspected cerebrovascular accident (CVA Contact made with patient: Yes Hi my name is Tanya Whiting LPN and I am calling from the [facility] on behalf of your PCP, Giorgio Fernandez, DO I understand you were recently in the hospital so I am calling to check in with you to ensure you are feeling well now that you re home. Do you mind if I ask you a few questions related to your hospital stay and well-being Yes Contact with patient post discharge, spoke to patient. Patient identified by name and . Do you feel your health is BETTER, WORSE, or the SAME since leaving the hospital? Better ACTION TAKEN: Patient indicated symptoms are better or same, no action required. Continue outreach. MEDICATIONS: Many patients have questions or concerns about their medications once they are home. Do you have any questions about taking your medications or which medication you should be on? No Do you need any medication refills at this time, including any of the medications you might take only when needed? No ACTION TAKEN: No action required For RNs or Pharmacy completing outreach ONLY, was a medication review completed? N/A SOCIAL: We would like to make sure you have what you need so that your basics needs are met - including your personal safety, food, housing and medications. Would you like to speak with a social work pricing/signage team member to help give you support for any of these needs? No It can be normal to feel anxious or down during a time like this. Would you like to talk to a mental health professional about how you have been feeling? No ACTION TAKEN: No action taken DISCHARGE INTRUCTIONS: Your discharge instructions / After Visit Summary (AVS) are important in guiding you through the recovery process. Do you have any questions related to your discharge instructions? No Do you have all the necessary equipment and supplies at home? Yes ACTION TAKEN: No action required Thank you for talking with me today. I would like to help you schedule a hospital follow-up virtual or telephone visit with your PCP. This is a great way for you to connect with your provider to ensure you have safely transitioned home. If you are agreeable, I will send your request to a radiology scheduler who will contact and assist you with that appointment. This will give you an opportunity to ask any questions or address any concerns you may have with your PCP. Inform the patient that if they have any questions or concerns prior to that appointment, to call their PCP's office right away. ACTION TAKEN: No action required, patient already has an appointment scheduled. Your doctor would like us to remind you of the recommendations regarding the coronavirus (Covid19) outbreak: Avoid public places as much as possible. Avoid close contact (within 6 feet) with others you don't live with, especially if they are sick. Stay home if you are sick. Wash your hands regularly for at least 20 seconds with soap and water. Wear a cloth mask in public places to help reduce community spread. Do not go to your Doctor's office unless instructed to do so. For any non-emergency symptoms, call your Doctor's office to get instructions on how to manage (we might recommend a telephone or virtual visit). For emergency symptoms, proceed to Emergency Department as usual but inform them of cough and fever symptoms SAMIRA if present (or call on the way if possible). TRANSITIONAL CARE MANAGEMENT (TCM) COMMUNITY MONITORING PROGRAM - [facility] Provider Action/FYI: Lmtr SUMMARY: Pt discharged from [facility] on 02/24/23. Admitted for: Suspected cerebrovascular accident (CVA Contact made with patient: No - next outreach attempt will be on next day Outreach ended documented in this encounter [facility] 02-22-2023 Miscellaneous Notes Telephone Encounter: Called by Transfer [facility] regarding Jonathon Linnjenny at [facility]. He is a 72M with PMH , CAD, HTN, HLD, PD, JAIRO, prior strokes and TIAs with recent L CEA in January 2023 in the setting of L-sided weakness who presents with stumbling when ambulating and L-sided sensorimotor deficits affecting the face/arm/leg. LKW ~ 20:00. NIHSS 5. BP 160/84. CTH with L MCA encephalomalacia and a R cerebellar hyperdensity (present on prior scans), no acute hemorrhage or infarct. CTA H/N without LVO or flow limiting stenosis. At this time, given similar symptoms previously in the past month in the setting of R ICA stenosis now s/p CEA, would defer TNK administration. Not an EVT candidate given no LVO. Could look for any underlying toxometabolic derangements to explain symptoms, but if symptoms persist, reasonable to admit for further workup including MRI brain. Jeffy Cohn MD PGY-5 Vascular Neurology Fellow 02/22/23 11:41 PM documented in this encounter [facility] 02-11-2023 History of Present illness Narrative TRANSITION CARE MANAGEMENT (TCM) FOLLOW-UP NOTE Provider Action/FYI Patient identified by name and date of : YES Spoke to patient Summary: Patient reports dizziness when standing up from bed in the morning, also dizziness occassionally when walking. PCC reviewed changing positions slowly to help stabilize BP. Patient states understanding. PCC reviewed PCP information that patient may stop taking lisinopril and drink additional water. Patient stated understanding. Patient reports his spouse is currently admitted and he has increased his activity going back and forth to the hospital. Patient reports he monitors BP at home and it has been "normal". Patient unable to reports readings. PCC encouraged patient to contact PCP office shall he not improve or feel worse. PCP encouraged patient to continue to monitor BP at home and keep a log. Patient states understanding. Patient is scheduled with PCP 03/07/23 to review BP medications. Jeep Mechanic plan for next outreach: No further follow up needed at this time Signature Monik Marks RN February 11, 2023 documented in this encounter [facility] 02-08-2023 Miscellaneous Notes The patient was called and he said that he is having some dizziness when trying to get up fast. He said that this happens when he lays down. Patient said he has been having this for a couple of weeks now and is not sure if this is from his blood pressure medication or if this is vertigo.He said that he cut down his blood pressure to a quarter and it seems to be getting better, but still having dizziness. Patient denies any shortness of breath or chest pain. Patient is only wanting to see for this issue. I told him the best I could do would be 03/07/23 at 10:40am. He took appointment and I told him he needs to call his surgeon as well since he recently has neck surgery and this could be related. Patient voiced understanding. Tanya Richter MA Patient's called office, left message stating he is not feeling well, he is c/o dizziness when he stands up and is off balance, just not feeling well She is requesting a call back from office at [phone] (home) documented in this encounter [facility] 02-04-2023 Instructions Cindy Ring PA-C - 02/04/2023 11:00 AM EDT Images from the original note were not included. Hypertension (High Blood Pressure) What is high blood pressure? Blood pressure is the measurement of the pressure or force of blood pushing against blood vessel desai. In hypertension (high blood pressure), the pressure against the blood vessel desai is consistently too high. High blood pressure is often called the silent killer because you may not be aware that anything is wrong, but the damage is occurring within your body. The only way to know if you have high blood pressure is to have your blood pressure taken. It is best to know your numbers and make the changes that can help prevent or limit damage. Understanding BP readings Your blood pressure reading has two numbers. The first is the systolic, which measures the pressure on the blood vessel desai when your heart beats. The second number is the diastolic, which measures the pressure on your blood vessels between beats when the heart is at rest. What is a normal blood pressure reading? Blood Pressure Category Systolic mm Hg (upper number) Diastolic mm Hg (lower number) Normal less than 120 and less than 80 Prehypertension 120 - 139 or 80 - 89 High Blood Pressure (Hypertension) Stage 1 140 - 159 or 90 - 99 High Blood Pressure (Hypertension) Stage 2 160 or higher or 100 or higher Hypertensive Crisis (Emergency care needed) Higher than 180 or Higher than 110 mmHg = millimeters of mercury - the unit of measure for blood pressure What can happen if high blood pressure is not treated? Stroke Enlarged heart Heart failure Peripheral vascular disease Heart attack Kidney disease/failure Who is more likely to have high blood pressure? People with family members who have high blood pressure, cardiovascular disease, or diabetes -Americans Women who are Women who take control pills People over 35 People who are overweight People who are not active People who drink a lot of alcohol People who eat too many fatty foods or foods with too much salt People who smoke What should I do if I have high blood pressure? If you have been diagnosed with high blood pressure, you should discuss your target blood pressure with your healthcare provider. Check your own blood pressure at home as recommended. Eat healthy foods that are low in salt and fat. Achieve and maintain your ideal body weight. Limit alcohol to no more than two drinks each day. One drink is defined as 1 oz. of alcohol, 5 oz. of wine, or 12 oz. of beer. Be more physically active. Quit smoking. Work on controlling anger and managing stress. Take high blood pressure medicine if your healthcare provider prescribes it, and follow the healthcare provider's directions carefully. Have regular blood pressure checks by your healthcare provider. What should I include in my diet to control high blood pressure? Eat foods that are lower in fat, salt, and calories, such as skim or 1% milk, fresh vegetables and fruits, and whole grain, rice, and pasta. (Ask your doctor or healthcare provider for a more detailed list of salt-free foods to eat.) Use flavorings, spices, and herbs to make foods tasty without using salt. Avoid or cut down on butter and margarine, regular salad dressings, fatty meats, whole milk dairy products, fried foods, processed foods or fast foods, and salted snacks. Ask your healthcare provider if you should increase potassium in your diet or if you need to take a potassium supplement. Discuss the Dietary Approaches to Stop Hypertension (DASH) diet with your healthcare provider. How can I be more active? Check first with your healthcare provider before increasing your physical activity. Ask your provider what type and amount of exercise is right for you. Choose aerobic activities such as walking, biking, or swimming. Start slowly and increase activity gradually. Aim for a regular routine of activity five times a week for 30 to 45 minutes each session. Activity can be done in 10-minute sessions to add up to the 30-45 minutes total. What should I know about blood pressure medicine? There are many different medicines to treat high blood pressure, and you might need to take medicine from now on. If your healthcare provider tells you to take high blood pressure medicine, be sure to follow the exact directions. Also, ask what side effects can happen with your medicine, and talk to your healthcare provider about any problems or side effects you might have with your medicine. Lastly, do not stop taking the medicine on your own. References National Heart, Lung, and Blood [place]. Description of High Blood Pressure Accessed 04/22/2017. Food and Drug Administration. High Blood Pressure (Hypertension) Accessed 04/22/2017. Centers for Disease Control and Prevention. High blood pressure Accessed 04/22/2017. JNC 8 Guidelines for the Management of Hypertension in Adults. Am Fam Physician. 2013Aug 18;90(7):503-504. aafp.org Accessed 04/22/2017. Copyright 4187-1787 The [facility]. All rights reserved This information is provided by the [facility] and is not intended to replace the medical advice of your doctor or health care provider. Please consult your health care provider for advice about a specific medical condition. For additional health information, please contact the Center for Consumer Health Information at the [facility] or toll-free extension [phone]. If you prefer, you may visit [email or web address] or [email or web address]. This document was last reviewed on: 2017 index#1805 documented in this encounter [facility] 02-04-2023 Nurse Note Jonathon Perales is a 72 year old male who presents for Transition Of Care (Left sided weakness). Confused about medication he is supposed to be taking. Ayala Lofton MA documented in this encounter [facility] 02-04-2023 History of Present illness Narrative Transitional Care Management TCM Eligibility Documentation The following information was gathered during the initial Patient Outreach Encounter. Date of Outreach: 01/28/2023 Outreach Attempt 1: Contact Made Date of Discharge 01/26/2023 Some recent data might be hidden Summary Discharged from: [facility] Admit Date: 01/19/2023 Admitted for: left sided weakness Ayala Lofton MA Provider Documentation Jonathon Perales is a 72 year old male here today for a follow up to recent hospitalization. I have reviewed the patient's hospital course including diagnostic testing performed during this hospitalization, their discharge medications, and my assessment and plan with the patient and any family members present at today's visit. HPI: Patient is presenting today for recent hospital admission follow-up. Patient presented to the emergency department on January 19 for concerns of left-sided numbness and weakness. Patient did have imaging including a CT of the brain and CTA of the head which did show left parietal infarct and cerebral infarcts. An MRI of the brain which showed chronic changes with remote infarcts. 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 It was thought that the patient did have a transient ischemic attack which was consistent with his right sided internal carotid artery stenosis. Patient did undergo operative intervention of his carotid artery stenosis on 310 and had a carotid endarterectomy of the right artery. He did have preoperative clearance performed by cardiology his echo did reveal 80% ejection fraction. Patient was then discharged from the hospital on January 26 with controlled blood pressure, p.o. diet, good urinary output, and in stable condition. Was recommended that he follow-up with neurology and vascular surgery in 2 weeks postdischarge. Patient did have his follow-up with neurology on January 31 and did admit to having chest pain as well as epigastric pain, nausea and vomiting. Patient did not follow-up on the symptoms after his visit with vascular surgery. Patient states that he has been watching his diet more closely and has been limiting his greasy food intake and that seems to have drastically improved his abdominal pain, nausea and vomiting. He denies any current abdominal pain or nausea. Last episode of emesis was 2 days ago. Patient was having some dizziness and headaches initially but that seems to be slightly improving. His last headaches was yesterday. He reports that the pain was mild in nature and would be slightly worse with movement. He reports that he has occasional dizziness with position change.He denies any leg swelling or heart palpitations. He does also report that since having the surgery that he feels better overall. He denies any problems with eating, chewing or swallowing. He does have multiple follow-up appointments upcoming with neurology, psychiatry, psychology, occupational therapy and cardiology. Patient reports that he is very confused about what medications he supposed to be taking on a daily basis. Review of Systems Constitutional: Negative for chills, fever and malaise/fatigue. HENT: Negative for congestion and sore throat. Eyes: Negative for blurred vision. Respiratory: Negative for cough, shortness of breath and wheezing. Cardiovascular: Positive for chest pain (resolved). Negative for palpitations and leg swelling. Gastrointestinal: Negative for abdominal pain, constipation, diarrhea, nausea and vomiting. Genitourinary: Negative for dysuria. Skin: Negative for rash. Neurological: Positive for dizziness (with position change) and headaches (occasional). Negative for weakness. Psychiatric/Behavioral: Negative for depression. The patient is not nervous/anxious and does not have insomnia. Vitals BP 112/64 Pulse 64 Temp 98.5 Ht 5' 5" (1.65m) Wt 156 lb (70.8kg) SpO2 97[ra]% BMI 25.96 kg/(m^2). Physical Exam Vitals and nursing note reviewed. Constitutional: General: He is not in acute distress. HENT: Head: Normocephalic and atraumatic. Right Ear: Tympanic membrane, ear canal and external ear normal. Left Ear: Tympanic membrane, ear canal and external ear normal. Mouth/Throat: Mouth: Mucous membranes are moist. Pharynx: Oropharynx is clear. Eyes: Extraocular Movements: Extraocular movements intact. Conjunctiva/sclera: Conjunctivae normal. Pupils: Pupils are equal, round, and reactive to light. Neck: Vascular: No carotid bruit. Cardiovascular: Rate and Rhythm: Normal rate and regular rhythm. Pulses: Normal pulses. Heart sounds: Normal heart sounds. No murmur heard. No gallop. Pulmonary: Effort: Pulmonary effort is normal. Breath sounds: No wheezing, rhonchi or rales. Abdominal: General: Bowel sounds are normal. Palpations: Abdomen is soft. Tenderness: There is no abdominal tenderness. There is no guarding. Musculoskeletal: General: No swelling. Normal range of motion. Right lower leg: No edema. Left lower leg: No edema. Skin: General: Skin is warm and dry. Capillary Refill: Capillary refill takes less than 2 seconds. Findings: No bruising or rash. Comments: Incision sight on the right side on the neck is healing well, no erythema or driangage to the area, hematoma present Neurological: General: No focal deficit present. Mental Status: He is alert and oriented to person, place, and time. Cranial Nerves: No cranial nerve deficit. Motor: No weakness. Psychiatric: Mood and Affect: Mood normal. Most recent hospital course reviewed. ASSESSMENT/PLAN: 1. TIA (transient ischemic attack) - ICD9: 435.9, ICD10: G45.9 (primary diagnosis) -follow with neurology -continue dual antiplatelet therapy - CBC + DIFF 2. Carotid stenosis, right - ICD9: 433.10, ICD10: I65.21 - CBC + DIFF 3. Left-sided weakness - ICD9: 728.87, ICD10: R53.1 resolved - CBC + DIFF 4. Chronic abdominal pain - ICD9: 789.00, 338.29, ICD10: R10.9, G89.29 - continue current medications 5. Primary hypertension - ICD9: 401.9, ICD10: I10 - good control - Continue current medication(s) - Recommended regular aerobic exercise. - Recommend home blood pressure monitoring, to bring results in on next visit - Goal of BP <130/80 - CBC + DIFF - COMP METABOLIC PANEL - CBC + DIFF - COMP METABOLIC PANEL 6. Pure hypercholesterolemia - ICD9: 272.0, ICD10: E78.00 - LIPID PANEL BASIC 7. Active advance directive - ICD9: V49.89, ICD10: Z78.9 - ADVANCE CARE PLAN DISCUSSION 8. Hypocalcemia - ICD9: 275.41, ICD10: E83.51 - COMP METABOLIC PANEL CINDY RING PA-C documented in this encounter [facility] 02-01-2023 History of Present illness Narrative Jonathon Perales 72 year old male S/P Right carotid endarterectomy PROCEDURE: R CEA by Dr. Laird DATE: 01/25/23 SUBJECTIVE: Jonathon Perales returns to the office today for urgent evaluation following his surgery last week. Pt had called and spoke with physician oracle iam consultant last evening, to report that he was feeling really dizzy, especially when he stood up. He was encouraged to come in today for evaluation. Today, pt reports that he's been having a lot of chest/epigastric pain, has been very nauseous, and did throw up a little bit this morning after he ate a small breakfast. Reports that while he was on his way here, "thinking back", this is "exactly how it felt" with his ulcer when it was 'flaired up" previously. Demonstrates pain is generally across his upper abdomen/epigastric area, and became more mid-sternal when he threw up this morning. No back pain, neck pain, jaw pain, or arm pain. Also explains that he gets really dizzy when he stands up - often causing him to have to sit back down for a moment. Has not passed out and has not fallen. Admits that he has not been eating much and feels that he's not been drinking enough water since he got home from the hospital. Overall, just feels poorly. No headaches, no amaurosis, no facial drooping, no change in speech, no difficulty swallowing, no change in voice. Sleeping OK and notes some ongoing fatigue throughout they day since surgery. Does not have a function blood pressure monitor at home. EXAM: Neurological Exam: Normal; Awake and alert; Appears fatigued and feeling unwell; Stuttered speech/aphasia @baseline; Voice is strong; Smile symmetric; Tongue midline; Swallow intact Right Neck Incision: Clean, dry, well approximated, and well healing with glue intact; Mild incisional seroma noted without induration, fluctuation, erythema, or drainage Lungs: Breathing is easy and unlabored; No SOB Heart: RRR without gallop or rub Extremities: TAYLOR x4; No deformities; No edema PULSES: Right Pulses: Rad +2, Carotid +2 Left Pulses: Rad +2, Carotid +2 IMPRESSION: Stable post op from surgical standpoint; Pt is clearly not feeling well, but does not seem to be directly related to surgical procedure; Encouraged pt strongly to follow-up with PCP today, or consider going to Urgent Care/ED for evaluation; Pt states he plans to get a new BP monitor on his way home, and will work on getting hydrated and some nutrition; Again encouraged pt to call PCP or be seen in urgent setting for further evaluation PLAN: Mr. Perales will follow-up here in 1 month. He will call his PCP for further recommendations today, vs going to Urgent Care/ ED. Encouraged pt to call with questions or concerns. The patient is currently taking a statin: Yes The patient is currently taking aspirin: Yes Rina Rojas APRN.SILVIA documented in this encounter [facility] 01-31-2023 Instructions Rina Rojas APRN.CNP - 01/31/2023 11:02 AM EDT Wash your hands before and after touching your incision(s). Hand washing is the best way to prevent infection. Watch your incision for any separation, bleeding or signs of infection including redness, tenderness, swelling, drainage, unusual odor, or if the area feels warmer than the rest of your body. Call our office if you experience a temperature of 101?F or higher. It s very important that you follow your doctor s instructions after you leave the hospital. Take medications as prescribed, watch out for potential complications, and keep your follow-up appointments. Don t overdo things if you ve been instructed to rest. On the other hand, don t neglect physical activity if you ve been given the go ahead to move around. Start to resume normal activities as soon as you safely can. Most of the time, it s best to gradually return to your normal routine. In some cases, you may not be able to care for yourself for a while after your surgery. You may need a caregiver to help tend your wounds, prepare food, keep you clean, and support you while you move around. If you don t have a family member or friend who can help, ask your doctor to recommend a professional caregiving service. Contact your doctor if you develop a fever, increased pain, or bleeding at the surgical site. Don t hesitate to contact your doctor if you have questions or aren t recovering as well as expected. documented in this encounter [facility] 01-30-2023 Miscellaneous Notes Patient calling regarding intermittent dizziness when he stands up. Conferenced to [facility] euclid operator, Erika, to speak with provider oracle iam consultant for Dr. Laird at phone number [phone]). documented in this encounter [facility] 01-28-2023 History of Present illness Narrative TCM Home Visit Referral Source of Stratification: [facility] Hospital Admission Status: Discharged Readmission Risk Score: 17 TRA Score: 4 Patient meets program referral criteria: No Patient does not qualify for High Risk TCM Home Visit program due to: Discharged home, does not meet program criteria Monik Marks RN January 28, 2023 9:34 AM TRANSITIONAL CARE MANAGEMENT (TCM) [facility] Provider Action/FYI: SUMMARY: Pt discharged from [facility] on 01/26/23. Admitted for: Left sided weakness, Contact made with patient: Yes Hi my name is Monik aMrks RN and I am calling from the [facility] on behalf of your PCP, Giorgio Fernandez, DO I understand you were recently in the hospital so I am calling to check in with you to ensure you are feeling well now that you re home. Do you mind if I ask you a few questions related to your hospital stay and well-being Yes Contact with patient post discharge, spoke to patient. Patient identified by name and . Do you feel your health is BETTER, WORSE, or the SAME since leaving the hospital? Better ACTION TAKEN: Patient indicated symptoms are better or same, no action required. Continue outreach. MEDICATIONS: Many patients have questions or concerns about their medications once they are home. Do you have any questions about taking your medications or which medication you should be on? No Do you need any medication refills at this time, including any of the medications you might take only when needed? No ACTION TAKEN: No action required For RNs or Pharmacy completing outreach ONLY, was a medication review completed? Yes SOCIAL: We would like to make sure you have what you need so that your basics needs are met - including your personal safety, food, housing and medications. Would you like to speak with a social work pricing/signage team member to help give you support for any of these needs? No It can be normal to feel anxious or down during a time like this. Would you like to talk to a mental health professional about how you have been feeling? No ACTION TAKEN: No action taken DISCHARGE INTRUCTIONS: Your discharge instructions / After Visit Summary (AVS) are important in guiding you through the recovery process. Do you have any questions related to your discharge instructions? No Do you have all the necessary equipment and supplies at home? NA ACTION TAKEN: No action required Thank you for talking with me today. I would like to help you schedule a hospital follow-up virtual or telephone visit with your PCP. This is a great way for you to connect with your provider to ensure you have safely transitioned home. If you are agreeable, I will send your request to a radiology scheduler who will contact and assist you with that appointment. This will give you an opportunity to ask any questions or address any concerns you may have with your PCP. Inform the patient that if they have any questions or concerns prior to that appointment, to call their PCP's office right away. ACTION TAKEN: No action required, patient already has an appointment scheduled. Your doctor would like us to remind you of the recommendations regarding the coronavirus (Covid19) outbreak: Avoid public places as much as possible. Avoid close contact (within 6 feet) with others you don't live with, especially if they are sick. Stay home if you are sick. Wash your hands regularly for at least 20 seconds with soap and water. Wear a cloth mask in public places to help reduce community spread. Do not go to your Doctor's office unless instructed to do so. For any non-emergency symptoms, call your Doctor's office to get instructions on how to manage (we might recommend a telephone or virtual visit). For emergency symptoms, proceed to Emergency Department as usual but inform them of cough and fever symptoms SAMIRA if present (or call on the way if possible). documented in this encounter [facility] 01-20-2023 Miscellaneous Notes Giorgio Fernandez, DO Please advise if you are agreeable to signing and following for C services? Our Clinicians will be sending the Plan of Care to you for review and approval. They will reach out for any appropriate orders required to provide home care services for the patient. We are not able to initiate HHC services without a following provider. Home care clinicians may also obtain orders from [facility] Virtualist Providers Thank you and we would be happy to answer any questions. Michelle Babb LPN 01/20/2023 11:19 AM documented in this encounter [facility] 01-19-2023 History of Present illness Narrative TELESTROKE DOCUMENTATION Name: Jonathon Perales : 1950 Referring Site: [facility] Referring Provider: Dr. Everett Last Known Well (Date/Time): 01/18/23 (last night) Time Unknown Neurologist Evaluation (Date/Time): 01/19/23 0931 Chief Complaint: left sided numbness and weakness HPI: 72 year old male,History of remote stroke, TIA, coronary artery disease, hypertension, obstructive sleep apnea, hyperlipidemia, peripheral arterial disease, anxiety, and depression presents to the ED after waking up with headache, gait instability, left-sided weakness, and numbness. He was last known well last night prior to going to sleep. Upon waking up this morning he experienced a headache and when he stood up out of bed he was very unstable. In the ED he had an NIH stroke scale of 5. Upon telestroke evaluation he exhibited left-sided numbness dysarthria and ataxia. CT of the head showed no acute changes. CTA head and neck showed no large vessel occlusion however there was significant right ICA origin stenosis. He was not a candidate for acute stroke therapy but would be admitted for further evaluation including consideration for revascularization of the right carotid artery if it was felt to be symptomatic. Stroke Risk Factors Coronary Artery Disease, Headache/Migraine, Hypertension, Previous Ischemic Stroke, Previous TIA, Hypercholesterolemia BP: 167/87 NIHSS Telestroke Type - Patient location (ED or Inpatient): ED - Video Neurologist Performed Total Score: 6 Arrival Date Telestroke Site: 01/19/23 NIHSS Performed Date: 01/19/23 LOC: 0 LOC Questions: 2 LOC Commands: 0 Best Gaze: 0 Visual: 0 Facial Palsy: 0 Motor Left Arm: 0 Motor Right Arm: 0 Motor Left Le Motor Right Le Limb Ataxia: 1 Sensory: 1 Best Language: 1 Dysarthria: 1 Extinction and Inattention: 0 Labs Glucose: [address] Imaging reviewed, NO acute infarct/hemorrhage seen (remote left frontoparietal and cerebellar infarcts) CTA Reviewed, Other (Specify) CTA Imaging Reviewed (Specify): moderate to severe right ICA stenosis ~70% Summary Suspected ACUTE ischemic stroke IV Thrombolysis Candidate Window: No - Patient arrived past 4.5 hour window OR Last Known Well Date/Time is unknown Potential Candidate for Endovascular Therapy: No - Negative for evidence of large vessel occlusion (We discussed potential candidacy for CEA vs stenting if MRI shows acute stroke attributable to the right ICA) Disposition/Billing (Physician is not in the same physical location as the patient) The patient will remain at the referring institution for further evaluation and management Video: Minutes spent directly evaluating the patient via teleconferencing, reviewing pertinent diagnostic data, and coordinating care : 38 Video: Case complexity: Complex More than 50 percent of the encounter was spent on coordinating care of the patient during a telestroke. Thank you for contacting the [facility]. I appreciate the opportunity for allowing me to participate in Jonathon Criss Matiasmehdi's care. Please feel free to contact me and/or the [facility] at any time if you have any further questions or need additional assistance. Andrew Hester MD January 19, 2023 10:11 AM documented in this encounter [facility] 01-18-2023 Miscellaneous Notes Patient was tried to call back and see if they need something else after I told them to go to the ER. No one answered the phone. Tanya Richter MA Maria De Jesus Kahn [facility] Triage Pool Subject Line Format: Medicine / [Provider Name] / [Issue] Patient has been identified by name and Date of (Y/N): y Patient: Jonathon Perales Date of : 1950 Provider for this encounter: Giorgio Fernandez DO Reason for the call/escalation: returning our call re: vomiting and trouble urinating, Lila already spoke with the nurse, was told to go to the ED, but received a lashawn back Was Patient Referred to [facility]/Seek Emergency Treatment (Y/N): n Did Patient Agree (Y/N): n Was An Attempt Made To Transfer The Patient To The Office (Y/N): y Were You Able To Reach Someone At The Office (Y/N): n If Yes - Patient Was Transferred To (Caregivers Name): n If No - Which [facility] [employer] Tender Did You Speak With Regarding This Patient: n Was an appointment scheduled (Y/N): n Reason patient was requesting visit (RFV/signs and symptoms/diagnosis) : patient calling us back Person calling if other than patient: Lila Return call to if other than patient: sadia Sharp Best contact number: [phone] Thank you, Maria De Jesus Kwan January 18, 2023 2:05 PM Patient's called back and wanted to know what to do. I did relay the message of going to ER and she voiced understanding. Tanya Richter MA Patient was called and left VM in regards to the message below. Tanya Richter MA If the patient is having any signs of dehydration and decreased urine output, he should go to the Er for evaluation. CINDY RING PA-C Triage: Patient's called & stated that Jonathon has been throwing up for the past couple days. Thinks that it could be one of his medication that he is taking (Trazone). He stated he hasn't been able to sleep and hasn't been eating as much either. Patient stated he did have an Ulcer a few years ago, and doesn't know if this is a start of another one that is going on. Started taking Pepcid and started to feel little better, but wanted to call in and let us know what is going on. Please advise of message. Rosmery Pierson MA documented in this encounter [facility] 01-16-2023 Instructions Radha Carlisle APRN.[facility] - 01/16/2023 10:32 AM EST Images from the original note were not included. An Overview of Anxiety Disorders What is an anxiety disorder? Anxiety is a normal human emotion. Many people feel anxious, or nervous, when faced with a problem at work, or before taking a test or making an important decision. Anxiety disorders, however, are different. They can cause such distress that it interferes with a person's ability to lead a normal life. An anxiety disorder is a serious mental illness. People with anxiety disorders respond to certain things or situations with fear and dread, as well as physical signs of anxiety such as a pounding heart and sweating. For people with anxiety disorders, worry and fear are constant and overwhelming, and can be crippling. An anxiety disorder is diagnosed if the person's response is not appropriate for the situation, if the person cannot control the response or if the anxiety interferes with normal functioning. Anxiety disorders can get worse if not treated; however, effective treatments are available. What are the types of anxiety disorders? There are several recognized anxiety disorders, including the following: Panic disorder People with this disorder have feelings of terror that strike suddenly and repeatedly with no warning. Other symptoms of a panic attack include sweating, chest pain, palpitations (unpleasant sensations of irregular heartbeats) and a feeling of choking, which might make the person feel like he or she is having a heart attack or "going crazy." Obsessive-compulsive disorder (OCD) People with OCD are plagued by constant thoughts or fears that cause them to perform certain rituals or routines. The disturbing thoughts are called obsessions, and the rituals are called compulsions. An example is a person with an unreasonable fear of germs who constantly washes his or her hands. Post-traumatic stress disorder (PTSD) PTSD is a condition that can develop following a traumatic and/or terrifying event, such as a sexual or physical assault, the unexpected of a loved one, or a natural disaster. People with PTSD often have lasting and frightening thoughts and memories of the event, and tend to be emotionally numb. Social anxiety disorder Also called social phobia, social anxiety disorder involves overwhelming worry and self-consciousness about everyday social situations. The worry often centers on a fear of being judged by others, or behaving in a way that might cause embarrassment or lead to ridicule. Specific phobias A specific phobia is an intense fear of a specific object or situation, such as snakes, heights or flying. The level of fear usually is inappropriate to the situation and might cause the person to avoid common, everyday situations. Generalized anxiety disorder This disorder involves excessive, unrealistic worry and tension, even if there is little or nothing to provoke the anxiety. What are the symptoms of an anxiety disorder? Symptoms vary depending on the type of anxiety disorder, but general symptoms of anxiety include: Feelings of panic, fear and uneasiness Uncontrollable, obsessive thoughts Repeated thoughts or flashbacks of traumatic experiences Nightmares Ritualistic behaviors, such as repeated hand washing Problems sleeping Cold or sweaty hands Shortness of breath Palpitations An inability to be still and calm Dry mouth Numbness or tingling in the hands or feet Nausea Muscle tension What causes anxiety disorders? The exact cause of anxiety disorders is not known; but anxiety disorders--like other forms of mental illness--are not the result of personal weakness, a character flaw or poor upbringing. As scientists continue their research on mental illness, it is becoming clear that many of these disorders are caused by a combination of factors, including biology and environmental stresses. Like certain illnesses, such as diabetes, anxiety disorders might be caused by chemical imbalances in the body. Studies have shown that severe or long-lasting stress can change the balance of chemicals in the brain that control mood. Studies also have shown that anxiety disorders run in families, which means that they can be inherited from one or both parents, like hair or eye color. In addition, certain environmental factors--such as a trauma or significant event--might trigger an anxiety disorder in people who have an inherited susceptibility to developing the disorder. How common are anxiety disorders? Anxiety disorders affect about 40 million adult Americans.They are the most common mental illnesses in the [place] Most anxiety disorders begin in childhood, adolescence and early adulthood. They occur more often in women than in men. How are anxiety disorders diagnosed? If symptoms are present, the doctor will begin an evaluation by performing a complete medical history and physical examination. Although there are no laboratory tests to specifically diagnose anxiety disorders, the doctor might use various diagnostic tests to rule out physical illness as the cause of the symptoms. If no physical illness is found, the person might be referred to a psychiatrist or psychologist, mental health professionals who are specially trained to diagnose and treat mental illnesses. Psychiatrists and psychologists use specially designed interview and assessment tools to evaluate a person for an anxiety disorder. The doctor bases his or her diagnosis on the patient's report of the intensity and duration of symptoms--including any problems with daily functioning caused by the symptoms--and the doctor's observation of the patient's attitude and behavior. The doctor then determines if the patient's symptoms and degree of dysfunction indicate a specific anxiety disorder. The standard reference manual used for the diagnosis of recognized mental illnesses in the [place] is the Diagnostic and Statistical Manual of Mental Disorders (DSM-5), published by the [place] [employer]. How are anxiety disorders treated? Anxiety disorders are real disorders that require treatment. Recovery is not simply a matter of will and self-discipline. Fortunately, much progress has been made in the last two decades in the treatment of people with mental illnesses. Although the exact treatment approach depends on the type of disorder, one or a combination of the following therapies might be used for most anxiety disorders: Medication Medicines used to reduce the symptoms of anxiety disorders include antidepressants and anxiety-reducing medications. Psychotherapy Psychotherapy (a type of counseling) addresses the emotional response to mental illness. It is a process in which trained mental health professionals help people by talking through strategies for understanding and dealing with their disorder. Cognitive-behavioral therapy People suffering from anxiety disorders often participate in this type of therapy in which the person learns to recognize and change thought patterns and behaviors that lead to troublesome feelings. What is the outlook for people with anxiety disorders? Early diagnosis and treatment can limit the problems caused by an anxiety disorder and improve the outlook. Unfortunately, many anxiety disorders are not recognized and, as a result, not treated. Can anxiety disorders be prevented? Anxiety disorders cannot be prevented; however, there are some things you can do to control or decrease symptoms: Stop or reduce your consumption of products that contain caffeine, such as coffee, tea, cola and chocolate. Ask your doctor or pharmacist before taking any [id number] medicines or herbal remedies. Many contain chemicals that can increase anxiety symptoms. Exercise daily and eat a healthy, balanced diet. Seek counseling and support after a traumatic or disturbing experience. Depression Overview What is depression? Nearly everyone has felt depressed, sad, or blue at one time or another. A depressed mood is a normal reaction to loss, life's struggles, or injured self-esteem. Sometimes, however, depression becomes intense, lasts for long periods, and prevents a person from leading a normal life. If left untreated, depression can get worse, sometimes lasting for years. It can even result in suicide. It is important to recognize the signs of depression and seek help if you see signs of depression in you or a loved one. It is important to know that depression CAN be treated successfully. What are the symptoms of depression? The major symptoms of depression include the following: Feeling extremely sad, anxious, or empty Feeling hopeless Feeling worthless Sleeping too much or too little Loss of enjoyment from things that were once pleasurable Loss of energy Difficulty concentrating, thinking, or making decisions Changes in appetite that lead to weight loss or gain Uncontrollable crying Headache Stomach ache Digestive problems Problems with sexual function Thoughts of or suicide Attempting suicide If you or someone you know is demonstrating any of the following warning signs, contact a primary care doctor, a mental health professional, or a community mental health center. If you feel unsafe, go to the nearest emergency room for evaluation and treatment. What causes depression? Depression may result from various factors in a person's life, including: High levels of stress Life transitions Loss Physical illness Family history of depression Imbalances in the chemicals that the body uses to control mood Certain medicines Lack of social support Lack of good coping skills History of traumatic experiences What are the types of depression? Major depressive disorder (or major depression): A person with this type of depression feels a profound and constant sense of hopelessness and despair. The symptoms of major depression interfere with the person's ability to work, sleep, study, eat, and enjoy themselves, even activities which had previously been pleasurable. This disabling type of depression may occur only once in a lifetime, or more commonly, occurs several times in a lifetime. Minor depression: A person with this type of depression has symptoms for longer than two weeks at a time, but does not meet the criteria for major depression. Dysthymic disorder (or dysthymia or chronic depression): In dysthymia, the main symptom is a low mood on most days for a long period of time. Other depression symptoms may be present, but are not as severe as in major depression. How is depression diagnosed? Your health care provider will ask you to describe your symptoms and medical history. He or she likely will ask if you or anyone in your family has had depression or other mental health problems. You also may need to complete a depression screening questionnaire. Symptoms of depression sometimes are caused by a physical disorder or illness. Your health care provider also may perform a physical exam or laboratory tests to determine if there is a physical cause for the depression. How is depression treated? Treatment recommendations typically depend on the severity and nature of the depression. Treatment interventions often involve antidepressant medication, psychotherapy, or a combination of these interventions. Can depression be prevented? Some individuals who have had an episode of depression are prone to have another one. The best way to prevent another episode is to be aware of the triggers of depression, know your own symptoms, and seek help early if you need it. Why seek help if I have coped with depression before? You may have recognized periods of depression in your life. Perhaps these periods lasted for several months and you learned to cope. But early treatment is important because: Without treatment, depression can become worse. Depression can lead to suicide. Without treatment, people who suffer from episodes of depression often do not fully recover. Treatment can prevent depression from coming back. Your depression may be the sign of another illness, which can worsen without treatment. Depression can increase your risk of developing other diseases, including dementia. Where can I learn more? [facility] [place] [facility] [address] [place] [address] [phone] [email or web address] National Mental Health Association [address] [place] [address] 1.618.969-[facility] (9486) [email or web address] References PubMed Health. Fact Sheet: Depression Accessed 04/26/2014. [employer] [place] [employer]. Depression Accessed 04/26/2014. [place]. Depression Accessed 04/26/2014. Copyright 8068-9368 The [facility]. All rights reserved This information is provided by the [facility] and is not intended to replace the medical advice of your doctor or health care provider. Please consult your health care provider for advice about a specific medical condition. For additional health information, please contact the [facility] Information at the [facility] or toll-free extension [phone]. If you prefer, you may visit [email or web address] or [email or web address]. This document was last reviewed on: 2017 index#5038 An Overview of Anxiety Disorders What is an anxiety disorder? Anxiety is a normal human emotion. Many people feel anxious, or nervous, when faced with a problem at work, or before taking a test or making an important decision. Anxiety disorders, however, are different. They can cause such distress that it interferes with a person's ability to lead a normal life. An anxiety disorder is a serious mental illness. People with anxiety disorders respond to certain things or situations with fear and dread, as well as physical signs of anxiety such as a pounding heart and sweating. For people with anxiety disorders, worry and fear are constant and overwhelming, and can be crippling. An anxiety disorder is diagnosed if the person's response is not appropriate for the situation, if the person cannot control the response or if the anxiety interferes with normal functioning. Anxiety disorders can get worse if not treated; however, effective treatments are available. What are the types of anxiety disorders? There are several recognized anxiety disorders, including the following: Panic disorder People with this disorder have feelings of terror that strike suddenly and repeatedly with no warning. Other symptoms of a panic attack include sweating, chest pain, palpitations (unpleasant sensations of irregular heartbeats) and a feeling of choking, which might make the person feel like he or she is having a heart attack or "going crazy." Obsessive-compulsive disorder (OCD) People with OCD are plagued by constant thoughts or fears that cause them to perform certain rituals or routines. The disturbing thoughts are called obsessions, and the rituals are called compulsions. An example is a person with an unreasonable fear of germs who constantly washes his or her hands. Post-traumatic stress disorder (PTSD) PTSD is a condition that can develop following a traumatic and/or terrifying event, such as a sexual or physical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 Foods that contain electrolytes and complex carbohydrates, such as potatoes, lean meats (for example, fish and chicken), and whole grains can help replace nutrients. You can also buy electrolyte and fluid replacement solutions at grocery and drug stores. Or, if hospitalization is required, the nutrients can be replaced intravenously (injected directly into the veins). Antibiotics will not be effective if the cause of gastroenteritis is a viral infection. Doctors usually do not recommend antidiarrheal medications (such as Loperamide) for gastroenteritis because they tend to prolong infection, especially in children. How can gastroenteritis be prevented? There are several steps that you can take to reduce your risk of getting gastroenteritis, including: Washing your hands frequently, especially after going to the bathroom and when you are working with food; Cleaning and disinfecting kitchen surfaces, especially when working with raw meat or eggs; Keeping raw meat, eggs, and poultry away from foods that are eaten raw; Drinking bottled water and avoiding ice cubes when traveling, especially in developing countries; References Centers for Disease Control and Prevention. Norovirus Accessed 02/23/2016. [employer]estive [employer] Kid[employer] Diseases Viral Gastroenteritis Accessed 02/23/2016. [employer]. Diarrheal Diseases -- Acute and Chronic Accessed 02/23/2016. Copyright 4692-5065 The [facility]. All rights reserved This information is provided by the [facility] and is not intended to replace the medical advice of your doctor or health care provider. Please consult your health care provider for advice about a specific medical condition. For additional health information, please contact the Center for Consumer Health Information at the [facility] or toll-free extension [phone]. If you prefer, you may visit [email or web address] or [email or web address]. This document was last reviewed on: 2016 index#[id number] documented in this encounter [facility] 12-06-2022 Nurse Note Jonathon Perales is a 72 year old male who presents with complaint of Nausea & Vomiting (Epigastric pain; please review medications, some he is not taking but may need refills.) Kenzie Guzman LPN documented in this encounter [facility] 12-06-2022 History of Present illness Narrative Images from the original note were not included. [facility] [address] [place] [address] Date of Evaluation: 12/06/2022 Patient Name: Jonathon Perales : 1950 Chief Complaint: Patient presents with: Nausea & Vomiting: Epigastric pain; please review medications, some he is not taking but may need refills. Nursing Intake: Nursing Notes: Kenzie Guzman LPN 12/06/2022 11:21 AM Signed Jonathon Perales is a 72 year old male who presents with complaint of Nausea & Vomiting (Epigastric pain; please review medications, some he is not taking but may need refills.) Kenzie Guzman LPN Subjective Mr. Perales is a 72 year old male who presents with the following complaint(s): HPI MARI 11/28/22 Dr. Adrian - anxiety with depression - Psychiatry 01/16/23 venlafaxine 75 mg BID, bupropion 300 mg ER daily 10/02/22 - Dr. Fernandez - annual PE Since Saturday - was vomiting 3 times/day, now better and keeping food down. Upset stomach in epigastric are but no pain currently. After eating - mild nausea. Able to eat beef, potatoes, carrot/peas last night. Today - no vomiting. No fever, chills, bloody emesis, diarrhea. Normal stool, no BRBPR, black tarry stools. No urinary symptoms, cardiopulmonary symptoms, lightheadedness or leg swelling. No recent antibiotics or gone out of the country. Takes pantoprazole daily. Gastroenterology in the past - bleeding ulcer years ago, but not seen in recent Reports that he had a very similar problem in Aug 2022, resolved. Review of Systems as per HPI PAST MEDICAL HISTORY Diagnosis Date (aortic stenosis) CAD (coronary artery disease) Cataract Cerebellar stroke (HCC) CVA (cerebral vascular accident) (HCC) Depression ED (erectile dysfunction) Calvin syndrome HTN (hypertension) Hyperlipidemia Kidney stone LVH (left ventricular hypertrophy) JAIRO (obstructive sleep apnea) Seasonal allergic rhinitis Vitamin B12 deficiency Vitamin D deficiency PAST SURGICAL HISTORY Procedure Laterality Date CARDIAC CATH 01/2018 COLONOSCOPY 2012 duodenitis EGD 2018 barretts FAMILY HISTORY Problem Relation Age of Onset Heart disease Mother Breast Cancer Mother other (back) Mother Heart disease Father Coronary Artery Disease Father Alcohol/Drug Father other (kidney) Father Breast Cancer Sister Hypertension Sister Social History Tobacco Use Smoking status: Some Days Types: Cigars Smokeless tobacco: Never Vaping Use Vaping Use: Former Substance Use Topics Alcohol use: No Drug use: No Current Outpatient Medications Medication Sig Dispense Refill methylphenidate (RITALIN) 5 mg tablet buPROPion XL (WELLBUTRIN XL) 300 mg 24 hr tablet Take 1 tablet by mouth once daily at 6 am. 30 tablet 3 carbidopa-levodopa (SINEMET 25-100) 25-100 mg per tablet pravastatin (PRAVACHOL) 40 mg tablet Take 1 tablet by mouth daily at bedtime. 30 tablet 11 ibuprofen (MOTRIN) 600 mg tablet Take 1 tablet by mouth every 6 hours as needed for pain. 120 tablet 2 lisinopril (ZESTRIL, PRINIVIL) 10 mg tablet Take 1 tablet by mouth once daily. [address] (PROTONIX) 40 mg tablet Take 1 tablet by mouth once daily. 90 tablet 3 ezetimibe (ZETIA) 10 mg tablet Take 1 tablet by mouth once daily. 90 tablet 3 metoprolol tartrate, short acting, (LOPRESSOR) 25 mg tablet Take 0.5 tablets by mouth twice daily. 90 tablet 3 clopidogrel (PLAVIX) 75 mg tablet Take 1 tablet by mouth once daily. 90 tablet 3 acetaminophen (TYLENOL) 325 mg tablet Take 2 tablets by mouth every 6 hours as needed. cholecalciferol (VITAMIN D3) 50 mcg (2,000 unit) tablet Take 2,000 Units by mouth once daily. Cyanocobalamin 2,000 mcg TbER Take by mouth once daily. aspirin, enteric coated (ASPIRIN, ENTERIC COATED) 81 mg EC tablet Take 81 mg by mouth once daily. divalproex DR (DEPAKOTE) 250 mg EC tablet Take 250 mg by mouth. (Patient not taking: Reported on 12/06/2022) acetaminophen 325 mg-caffeine 40 mg-butalbital 50 mg (FIORICET) per tablet Take 1 tablet by mouth. (Patient not taking: No sig reported) venlafaxine (EFFEXOR) 75 mg tablet Take 1 tablet by mouth three times daily. (Patient not taking: Reported on 12/06/2022) 270 tablet 3 traZODone (DESYREL) 50 mg tablet Take 1 tablet by mouth daily at bedtime. (Patient not taking: Reported on 12/06/2022) 30 tablet 1 triamcinolone acetonide (KENALOG) 0.1 % cream Apply 1 application to affected area twice daily. (Patient not taking: Reported on 12/06/2022) 45 g 0 ONDANSETRON HCL (ZOFRAN ORAL) Take by mouth. (Patient not taking: No sig reported) Minturn-3 Fatty Acids-Vitamin E 1,000 mg cap Take 1 capsule by mouth twice daily. (Patient not taking: Reported on 12/06/2022) No current facility-administered medications for this visit. I have confirmed and edited as necessary the chief complaint, medications, past medical, family and social histories obtained by others. Objective BP 126/80 Pulse 60 Temp (Src) 96.6 (Tympanic) Ht 5' 5" (1.65m) Wt 164 lb (74.4kg) SpO2 96% BMI 27.29 kg/(m^2). Physical Exam Vitals and nursing note reviewed. Constitutional: Appearance: Normal appearance. HENT: Head: Normocephalic and atraumatic. Nose: Nose normal. Mouth/Throat: Mouth: Mucous membranes are moist. Pharynx: Oropharynx is clear. Eyes: Extraocular Movements: Extraocular movements intact. Conjunctiva/sclera: Conjunctivae normal. Cardiovascular: Rate and Rhythm: Normal rate and regular rhythm. Pulses: Normal pulses. Heart sounds: Normal heart sounds. Pulmonary: Effort: Pulmonary effort is normal. Breath sounds: Normal breath sounds. Abdominal: General: Bowel sounds are normal. There is no distension. Palpations: Abdomen is soft. There is no mass. Tenderness: There is no abdominal tenderness. There is no right CVA tenderness, left CVA tenderness, guarding or rebound. Musculoskeletal: General: Normal range of motion. Cervical back: Normal range of motion and neck supple. Right lower leg: No edema. Left lower leg: No edema. Skin: General: Skin is warm. Capillary Refill: Capillary refill takes less than 2 seconds. Neurological: General: No focal deficit present. Mental Status: He is alert. Psychiatric: Mood and Affect: Mood normal. ASSESSMENT/PLAN: 1. Gastroenteritis - ICD9: 558.9, ICD10: K52.9 (primary diagnosis) - resolved 2. PUD (peptic ulcer disease) - ICD9: 533.90, ICD10: K27.9 - remote "bleeding ulcers" - continue pantoprazole; records show that he has been maintained on high dose PPI - CONSULT TO GASTROENTEROLOGY 3. Moses's esophagus without dysplasia - ICD9: 530.85, ICD10: K22.70 - CONSULT TO GASTROENTEROLOGY Shane Justice PA-C Follow up appointment in December [address] Fernandez as scheduled. Discussed the above with the patient using shared decision making. The patient is in agreement with the diagnostic and treatment plans. documented in this encounter [facility] 12-05-2022 Miscellaneous Notes Called and notified patient of verbal and patient voiced understanding of verbal. Jeanie Ricketts MA Hard to say from this message what is going on He can make appt or go to [facility] I don't have sajan treatment advice [facility] Patients Lila called in stating that has been under a lot of stress lately and has had a bleeding ulcer in the past. Patient's stated is having mid upper abdominal pain, vomiting, No S.O.B, No chest pain since Saturday11/30/22 and is vomiting more and not able to keep his medication down. Patient's stated that her thermometer is not working, but stated feels warm to touch. Patient's attempted to get on phone to speak with me, but I was unable to understand him. Please advise. Jeanie Ricketts MA documented in this encounter [facility] 11-28-2022 Nurse Note Jonathon Perales is a 72 year old male who presents for Follow Up (Depression medication adjustment) Says he is just not "feeling right" feels like his medications are contributing to this. Says that caused his depression to worsen. Lack of motivation. Alberto Guillen MA documented in this encounter [facility] 11-28-2022 History of Present illness Narrative Images from the original note were not included. [facility] [address] [address] Date of Evaluation: 11/28/2022 Patient Name: Jonathon Perales : 1950 Chief Complaint: Patient presents with: Follow Up: Depression medication adjustment Nursing Intake: Nursing Notes: Alberto Guillen MA 11/28/2022 4:15 PM Signed Jonathon Perales is a 72 year old male who presents for Follow Up (Depression medication adjustment) Says he is just not "feeling right" feels like his medications are contributing to this. Says that caused his depression to worsen. Lack of motivation. Alberto Guillen MA Subjective Mr. Perales is a 72 year old male who presents with the following complaint(s): HPI Depression On Wellbutrin 100 mg bid- but only taking morning pill, Venlafaxine 75 mg tid - but only taking it 3 times a day Trazodone 50 mg qhs Psychiatry visit in 01/16/2023 Taking wellbutrin 100 mg am and not taking in the evening. Not suidical No homicidal ideations Feels he is taking too much medication Review of Systems As above in hpi PAST MEDICAL HISTORY Diagnosis Date (aortic stenosis) CAD (coronary artery disease) Cataract Cerebellar stroke (HCC) CVA (cerebral vascular accident) (HCC) Depression ED (erectile dysfunction) Calvin syndrome HTN (hypertension) Hyperlipidemia Kidney stone LVH (left ventricular hypertrophy) JAIRO (obstructive sleep apnea) Seasonal allergic rhinitis Vitamin B12 deficiency Vitamin D deficiency PAST SURGICAL HISTORY Procedure Laterality Date CARDIAC CATH 01/2018 COLONOSCOPY 2012 duodenitis EGD 2018 barretts FAMILY HISTORY Problem Relation Age of Onset Heart disease Mother Breast Cancer Mother other (back) Mother Heart disease Father Coronary Artery Disease Father Alcohol/Drug Father other (kidney) Father Breast Cancer Sister Hypertension Sister Social History Tobacco Use Smoking status: Some Days Types: Cigars Smokeless tobacco: Never Vaping Use Vaping Use: Former Substance Use Topics Alcohol use: No Drug use: No Current Outpatient Medications Medication Sig Dispense Refill methylphenidate (RITALIN) [address] (DEPAKOTE) 250 mg EC tablet Take 250 mg by mouth. carbidopa-levodopa (SINEMET 25-100) 25-100 mg per tablet pravastatin (PRAVACHOL) 40 mg tablet Take 1 tablet by mouth daily at bedtime. 30 tablet 11 ibuprofen (MOTRIN) 600 mg tablet Take 1 tablet by mouth every 6 hours as needed for pain. 120 tablet 2 lisinopril (ZESTRIL, PRINIVIL) 10 mg tablet Take 1 tablet by mouth once daily. [address] (PROTONIX) 40 mg tablet Take 1 tablet by mouth once daily. 90 tablet 3 venlafaxine (EFFEXOR) 75 mg tablet Take 1 tablet by mouth three times daily. (Patient taking differently: Take 75 mg by mouth three times daily. Takes BID-morning and night) 270 tablet 3 ezetimibe (ZETIA) 10 mg tablet Take 1 tablet by mouth once daily. 90 tablet 3 metoprolol tartrate, short acting, (LOPRESSOR) 25 mg tablet Take 0.5 tablets by mouth twice daily. 90 tablet 3 clopidogrel (PLAVIX) 75 mg tablet Take 1 tablet by mouth once daily. 90 tablet 3 traZODone (DESYREL) 50 mg tablet Take 1 tablet by mouth daily at bedtime. 30 tablet 1 triamcinolone acetonide (KENALOG) 0.1 % cream Apply 1 application to affected area twice daily. (Patient taking differently: Apply 1 application to affected area as needed.) 45 g 0 acetaminophen (TYLENOL) 325 mg tablet Take 2 tablets by mouth every 6 hours as needed. cholecalciferol (VITAMIN D3) 50 mcg (2,000 unit) tablet Take 2,000 Units by mouth once daily. Cyanocobalamin 2,000 mcg TbER Take by mouth once daily. Minturn-3 Fatty Acids-Vitamin E 1,000 mg cap Take 1 capsule by mouth twice daily. aspirin, enteric coated (ASPIRIN, ENTERIC COATED) 81 mg EC tablet Take 81 mg by mouth once daily. acetaminophen 325 mg-caffeine 40 mg-butalbital 50 mg (FIORICET) per tablet Take 1 tablet by mouth. (Patient not taking: Reported on 11/28/2022) buPROPion XL (WELLBUTRIN XL) 300 mg 24 hr tablet Take 1 tablet by mouth once daily at 6 am. 30 tablet 3 ONDANSETRON HCL (ZOFRAN ORAL) Take by mouth. (Patient not taking: Reported on 11/28/2022) No current facility-administered medications for this visit. I have confirmed and edited as necessary the chief complaint, medications, past medical, family and social histories obtained by others. Objective BP 110/80 Pulse 60 Temp 96.4 Ht 5' 5" (1.65m) Wt 172 lb (78.0kg) SpO2 98% BMI 28.62 kg/(m^2). Physical Exam Constitutional: Appearance: Normal appearance. HENT: Head: Normocephalic. Cardiovascular: Rate and Rhythm: Normal rate and regular rhythm. Pulmonary: Effort: Pulmonary effort is normal. Breath sounds: Normal breath sounds. Neurological: Mental Status: He is alert. Psychiatric: Mood and Affect: Mood normal. Data Reviewed: No new labs ASSESSMENT/PLAN: 1. Anxiety with depression - ICD9: 300.4, ICD10: F41.8 Cont. Venalfaxine at bid. Will start bupropion 300 mg in the morning ER. Has follow up with Dr. Fernandez in Dec.- advised to keep that appt and follow up depression then. Also has psyhiatry appointment in January- advised to keep that. - BUPROPION XL 300 MG 24 HR TAB Yokasta Adrian DO Return for Keep appointment with Dr. Fernandez . Discussed the above with the patient using shared decision making. The patient is in agreement with the diagnostic and treatment plans. documented in this encounter [facility] 11-28-2022 Miscellaneous Notes Patient called back into the office, we relayed Dr Reis recommendation below patient states that he still wants to come in at 4. Please advise, thank you. GILDARDO Richards Looks like I saw him for depression already and I could not help him, so I sent him to psychiatry. He has a visit with them in January. Maybe he needs to move it up. Im not sure what more I can do on my end. Yokasta Adrian DO The patient was called and triage. He said that he is not suicidal and he is just feeling more sad and no energy. He is wanting to see someone today. I got him in to see to go over his medications. He denies any suicidal thoughts or wanting to harm anyone. He said that he is fine to wait and is not suicidal. I told him to call us if anything changes. Tanya Richter MA Patient's Lila called office, left message stating patient is having trouble with his depression medications. Lila states that patient said he feels it is a "Serious" situation. Sending to clinical staff to call and triage patient I was given 2 phone numbers [phone] 2) [phone] Please advise Thank you Alona Velasquez documented in this encounter [facility] 11-02-2022 Telephone encounter Note I spoke to the pt today. He understands that he needs to take the test. I informed him that the [facility] will reach out to him to schedule. He understands. [facility] 11-02-2022 Miscellaneous Notes I spoke to the pt today. He understands that he needs to take the test. I informed him that the [facility] will reach out to him to schedule. He understands. Please advise pt that he needs driving evaluation. If he does not want to proceed then I will need to send letter to [facility] for them to complete their evaluation. Driving eval update... I checked in with the [facility] to see if this pt had been scheduled yet. Don said she called him 11/01/2022 and he told her "he is driving and does not need the evaluation." documented in this encounter [facility] 11-02-2022 Telephone encounter Note Please advise pt that he needs driving evaluation. If he does not want to proceed then I will need to send letter to [facility] for them to complete their evaluation. [facility] Work Phone: 11-01-2022 Telephone encounter Note Driving eval update... I checked in with the [facility] to see if this pt had been scheduled yet. Don said she called him 11/01/2022 and he told her "he is driving and does not need the evaluation." [facility] 10-02-2022 History of Present illness Narrative Immunization History - influenza, high-dose, quadrivalent vaccine (FLUZONE HIGH DOSE QUADRIVALENT) (Given) - Date: 10/02/2022 - Lot #: [id number] - Dose: 0.7 mL - Site: Right deltoid - Artificial Teeth Inspector: San[employer]i Pasteur - Given By: TANYA RICHTER - Expiration Date: 05/17/2023 Images from the original note were not included. Giorgio Fernandez, [facility] [address] [place] [address] Date of Evaluation: 10/02/2022 Patient Name: Jonathon Perales : 1950 Chief Complaint: Patient presents with: Establish Care Nursing Intake: There are no exam notes on file for this visit. Subjective Mr. Perales is a 72 year old male who presents with the following complaint(s): HPI Had head injury year ago and is now stuttering Never stuttered before Gets stressed and stutters worse Had heart valve issues MRI shows lacunar infarcts and volume loss Did discuss he likely has a degree of dementia Does get agitated at times Review of Systems Constitutional: Negative for activity change, appetite change, fatigue and fever. HENT: Negative for congestion, dental problem, ear pain, hearing loss, sinus pressure, sinus pain and sore throat. Eyes: Negative for pain, discharge and visual disturbance. Respiratory: Negative for cough, chest tightness, shortness of breath and wheezing. Cardiovascular: Negative for chest pain and leg swelling. Gastrointestinal: Negative for abdominal pain, blood in stool, constipation, diarrhea, nausea and vomiting. Endocrine: Negative for cold intolerance and heat intolerance. Genitourinary: Negative for difficulty urinating, dysuria and frequency. Musculoskeletal: Negative for back pain, myalgias and neck pain. Skin: Negative for rash. Neurological: Positive for weakness. Negative for dizziness, syncope and headaches. Stutters now Hematological: Does not bruise/bleed easily. Psychiatric/Behavioral: Positive for agitation and dysphoric mood. Negative for sleep disturbance and suicidal ideas. The patient is nervous/anxious. PAST MEDICAL HISTORY Diagnosis Date (aortic stenosis) CAD (coronary artery disease) Cataract Cerebellar stroke (HCC) CVA (cerebral vascular accident) (HCC) Depression ED (erectile dysfunction) Calvin syndrome HTN (hypertension) Hyperlipidemia Kidney stone LVH (left ventricular hypertrophy) JAIRO (obstructive sleep apnea) Seasonal allergic rhinitis Vitamin B12 deficiency Vitamin D deficiency PAST SURGICAL HISTORY Procedure Laterality Date CARDIAC CATH 01/2018 COLONOSCOPY 2012 duodenitis EGD 2018 barretts FAMILY HISTORY Problem Relation Age of Onset Heart disease Mother Breast Cancer Mother other (back) Mother Heart disease Father Coronary Artery Disease Father Alcohol/Drug Father other (kidney) Father Breast Cancer Sister Hypertension Sister Social History Tobacco Use Smoking status: Some Days Types: Cigars Smokeless tobacco: Never Vaping Use Vaping Use: Never used Substance Use Topics Alcohol use: No Drug use: No Current Outpatient Medications Medication Sig Dispense Refill carbidopa-levodopa (SINEMET 25-100) 25-100 mg per tablet traZODone (DESYREL) 50 mg tablet Take 1 tablet by mouth daily at bedtime. 30 tablet 1 triamcinolone acetonide (KENALOG) 0.1 % cream Apply 1 application to affected area twice daily. 45 g 0 ONDANSETRON HCL (ZOFRAN ORAL) Take by mouth. acetaminophen (TYLENOL) 325 mg tablet Take 2 tablets by mouth every 6 hours as needed. cholecalciferol (VITAMIN D3) 50 mcg (2,000 unit) tablet Take 2,000 Units by mouth once daily. Cyanocobalamin 2,000 mcg TbER Take by mouth once daily. Minturn-3 Fatty Acids-Vitamin E 1,000 mg cap Take 1 capsule by mouth twice daily. aspirin, enteric coated (ASPIRIN, ENTERIC COATED) 81 mg EC tablet Take 81 mg by mouth once daily. pravastatin (PRAVACHOL) 40 mg tablet Take 1 tablet by mouth daily at bedtime. 30 tablet 11 ibuprofen (MOTRIN) 600 mg tablet Take 1 tablet by mouth every 6 hours as needed for pain. 120 tablet 2 lisinopril (ZESTRIL, PRINIVIL) 10 mg tablet Take 1 tablet by mouth once daily. [address] (PROTONIX) 40 mg tablet Take 1 tablet by mouth once daily. 90 tablet 3 buPROPion (WELLBUTRIN) 100 mg tablet Take 1 tablet by mouth twice daily. 180 tablet 3 venlafaxine (EFFEXOR) 75 mg tablet Take 1 tablet by mouth three times daily. 270 tablet 3 ezetimibe (ZETIA) 10 mg tablet Take 1 tablet by mouth once daily. 90 tablet 3 metoprolol tartrate, short acting, (LOPRESSOR) 25 mg tablet Take 0.5 tablets by mouth twice daily. 90 tablet 3 clopidogrel (PLAVIX) 75 mg tablet Take 1 tablet by mouth once daily. 90 tablet 3 No current facility-administered medications for this visit. I have confirmed and edited as necessary the chief complaint, medications, past medical, family and social histories obtained by others. Labs Completed Today: No visits with results within 1 Day(s) from this visit. Latest known visit with results is: Results Only on 06/21/2021 Component Date Value Ref Range Status Protein, Total 06/21/2021 7.2 6.3 - 8.0 g/dL Final Albumin 06/21/2021 4.9 3.9 - 4.9 g/dL Final Calcium, Total 06/21/2021 10.1 8.5 - 10.2 mg/dL Final Bilirubin, Total 06/21/2021 0.3 0.2 - 1.3 mg/dL Final Alkaline Phosphatase 06/21/2021 80 38 - 113 U/L Final AST 06/21/2021 33 14 - 40 U/L Final ALT 06/21/2021 28 10 - 54 U/L Final Glucose 06/21/2021 81 74 - 99 mg/dL Final The [place] Diabetes [employer] (ADA) provides guidance for cutoff values for fasting glucose and random glucose. The ADA defines fasting as no caloric intake for at least 8 hours. Fasting plasma glucose results between 100 to 125 mg/dL indicate increased risk for diabetes (prediabetes). Fasting plasma glucose results greater than or equal to 126 mg/dL meet the criteria for diagnosis of diabetes. In the absence of unequivocal hyperglycemia, results should be confirmed by repeat testing. In a patient with classic symptoms of hyperglycemia or hyperglycemic crisis, random plasma glucose results greater than or equal to 200 mg/dL meet the criteria for diagnosis of diabetes. Reference: Standards of Medical Care in Diabetes 2016, [place] [employer] Association. Diabetes Care. 2016.39(Suppl 1). BUN 06/21/2021 26 (A) 9 - 24 mg/dL Final Creatinine 06/21/2021 1.42 (A) 0.73 - 1.22 mg/dL Final Sodium 06/21/2021 139 136 - 144 mmol/L Final Potassium 06/21/2021 5.1 3.7 - 5.1 mmol/L Final Chloride 06/21/2021 102 97 - 105 mmol/L Final CO2 06/21/2021 27 22 - 30 mmol/L Final Anion Gap 06/21/2021 10 9 - 18 mmol/L Final eGFR- 06/21/2021 59 Final eGFR-All Other Races 06/21/2021 49 Final eGFR (Estimated GFR) Units of measure: mL/min/1.73 meters squared eGFR is derived from the reexpressed MDRD Study equation using the following parameters: serum creatinine, age, gender and race. The creatinine assay has been calibrated to be traceable to IDMS. An eGFR <60 mL/min/1.73m2 for >3 months is consistent with chronic kidney disease. Refer to KDOQI guidelines for clinical interpretation. In patients with unstable renal function, e.g. those with acute kidney injury, the eGFR may not accurately reflect actual GFR. Objective 10/02/22 1342 BP: 122/82 Pulse: 85 Temp: 36.2 C (97.1 F) TempSrc: Tympanic SpO2: 95% Weight: 75.8 kg (167 lb) Height: 165.1 cm (5' 5") BMI 27.79 kg/(m^2) Physical Exam Vitals and nursing note reviewed. Constitutional: General: He is not in acute distress. Appearance: Normal appearance. He is not ill-appearing or toxic-appearing. HENT: Head: Normocephalic and atraumatic. Right Ear: Tympanic membrane, ear canal and external ear normal. There is no impacted cerumen. Left Ear: Tympanic membrane, ear canal and external ear normal. There is no impacted cerumen. Nose: Nose normal. No congestion or rhinorrhea. Mouth/Throat: Mouth: Mucous membranes are dry. Pharynx: Oropharynx is clear. No oropharyngeal exudate or posterior oropharyngeal erythema. Eyes: General: No scleral icterus. Extraocular Movements: Extraocular movements intact. Conjunctiva/sclera: Conjunctivae normal. Pupils: Pupils are equal, round, and reactive to light. Cardiovascular: Rate and Rhythm: Normal rate and regular rhythm. Heart sounds: No murmur heard. Pulmonary: Effort: Pulmonary effort is normal. No respiratory distress. Breath sounds: Normal breath sounds. No wheezing. Abdominal: General: Abdomen is flat. Bowel sounds are normal. There is no distension. Palpations: Abdomen is soft. There is no mass. Tenderness: There is no abdominal tenderness. Hernia: No hernia is present. Musculoskeletal: General: No swelling or tenderness. Normal range of motion. Cervical back: Normal range of motion and neck supple. No rigidity or tenderness. Lymphadenopathy: Cervical: No cervical adenopathy. Skin: General: Skin is warm and dry. Capillary Refill: Capillary refill takes less than 2 seconds. Coloration: Skin is not jaundiced. Findings: No rash. Neurological: General: No focal deficit present. Mental Status: He is alert and oriented to person, place, and time. Mental status is at baseline. Cranial Nerves: No cranial nerve deficit. Sensory: Sensory deficit present. Motor: Weakness present. Psychiatric: Mood and Affect: Mood normal. Behavior: Behavior normal. Thought Content: Thought content normal. Cognition and Memory: Cognition is impaired. Memory is impaired. Judgment: Judgment normal. Data Reviewed: Most recent labs and imaging results. ASSESSMENT/PLAN: 1. Encounter for annual wellness exam in Medicare patient - ICD9: V70.0, ICD10: Z00.00 (primary diagnosis) - Counseled on healthy diet and regular exercise 2. Advance care planning - ICD9: V65.49, ICD10: Z71.89 - ADVANCE CARE PLAN DISCUSSION 3. Lumbar radiculopathy - ICD9: 724.4, ICD10: M54.16 Chronic low back pain - IBUPROFEN 600 MG TABLET 4. Sciatica associated with disorder of lumbar spine - ICD9: 724.3, ICD10: M53.86 Chronic low back pain - IBUPROFEN 600 MG TABLET 5. 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 HTN (hypertension), benign - ICD9: 401.1, ICD10: I10 - good control - Recommended regular aerobic exercise. - Recommend home blood pressure monitoring, to bring results in on next visit - Goal of BP <130/80 - LISINOPRIL 10 MG TABLET 7. 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 Recurrent major depressive disorder, in full remission (HCC) - ICD9: 296.36, ICD10: F33.42 - BUPROPION HCL 100 MG TABLET - VENLAFAXINE 75 MG TABLET - HEPATIC FUNCTION PNL 9. High cholesterol - ICD9: 272.0, ICD10: E78.00 - EZETIMIBE 10 MG TABLET 10. Need for vaccination - ICD9: V05.9, ICD10: Z23 - INFLUENZA SEASONAL QUADRIVALENT HIGH DOSE AGE 65+ Giorgio Fernandez DO Return in about 3 months (around 01/02/2023). Provider: Giorgio Fernandez DO Date: October 02, 2022 Time: 1:59 PM documented in this encounter [facility] 09-19-2022 Miscellaneous Notes Pt was brought up- seemed confused and unsure where he was going. Said he had a appointment. I wrote him two new cards for his appointments - the one on the and the psych one in january- and told him about his labs. Pt was interested in sooner appointment for the psychology appointment. Pt seemed very forgetful and unsure of things. Please advise Svitlana Roy documented in this encounter [facility] 09-14-2022 Miscellaneous Notes Referral was submitted for patient via [facility] portal to: PSYCHIATRY Confirmation number: [id number] Rosalinda Allen documented in this encounter [facility] 09-14-2022 Instructions Yokasta Adrian DO - 09/14/2022 1:48 PM EDT Images from the original note were not included. Exercise Basics Why should I exercise? Exercise has many benefits. Exercise can help you: maintain a healthy weight or help you reach your weight loss goals reduce the likelihood of gaining weight as you age maintain bone mass lower blood pressure, cholesterol and blood sugar levels reduce the risk of chronic conditions such as diabetes, heart disease, and osteoporosis reduce stress and improve the quality of sleep maintain a higher level of cardiovascular fitness, mobility, strength, flexibility, and improves the stereotypical image of aging What is the difference between activities of daily living and structured exercise? Activities of daily living (ADLs) are the activities you do on a regular basis that can help to burn calories, maintain strength and agility, and keep active. Examples of these include washing the car, gardening, raking leaves, washing dishes, vacuuming, etc. These activities do not necessarily count as exercise. Be sure to note the distinction in these ADLs as compared to structured exercises. You need both types of movement in order to maintain an optimal level of physical activity. Structured exercise includes activities specifically geared toward a purpose, usually to improve cardiovascular fitness, strength, flexibility, or balance and agility. There are specific definitions as to what constitutes exercise. Some activities may fit into both categories (exercise and ADLs) based on the intensity and duration. One example of an activity fitting both categories would be walking while mowing the lawn. How do I get started? Before starting an exercise program, it is important to talk with your doctor to determine any limitations you may have in regards to exercise. Exercise can be safe for almost anyone. However, certain limitations may be placed on individuals who suffer from chronic conditions such as arthritis, heart disease, hypertension, diabetes, osteoporosis, and certain pulmonary conditions, among others. Building an exercise routine takes time. Slowly incorporate exercise into your weekly routine, starting with a reasonable amount you can build on. Eventually, you should be able to incorporate some type of physical activity into every day. Determine what activities you enjoy. Exercise should not be looked at primarily as a chore. Finding activities that interest you are important because you are more likely to maintain them fpc. Try something new. There are many new forms of exercise that are becoming more popular and accessible. When possible, try some of the new fitness trends. Changing your routine and trying new things can help prevent boredom. Make sure that if your exercise routine is primarily outdoors you are able to have a back-up plan for bad weather. You should plan for consistency. Exercise benefits are best seen if the routine is maintained with minimal disruption. Everyone has a different tolerance for exercise. If you start experiencing feelings of burnout, reevaluate your routine. Make changes that you feel can be maintained. You can add more later once you feel more comfortable with your routine. Components of an exercise program There are four main components of a well-rounded exercise program. These are: cardiovascular exercises (aerobic exercise) strengthening exercises flexibility exercises balance and agility exercises Aerobic exercises Aerobic exercise helps to improve heart and lung function. Walking, swimming, running, biking, dancing, and hiking are just a few examples of aerobic exercise. The benefits of aerobic exercise include: lower cholesterol and blood pressure increased endurance a lower resting heart rate weight loss or maintenance stress relief improved sleep Aerobic exercise should be performed for 30 minutes, five to seven days per week. If time management is an issue, or poor endurance is an issue, break the 30 minutes into three sessions of 10 minutes each. Strengthening exercises Strength or resistance exercises can help to maintain strong bones, break some of the stereotypes associated with aging, increase metabolism, and help to achieve or maintain a higher level of function. Resistance exercises can include the use of: machine or free weights exercise balls hand weights or bands different types of exercises (such as Pilates or calisthenics) Strength exercises for general fitness should be performed two times per week for every major muscle group. Larger muscle exercises using several joints, such as lunges or bench presses, should be spaced out to provide three to four days of rest in between sessions. Smaller muscle exercises require as little as one day of rest in between sessions. Strength training is based on the overload principle. If you feel as though your muscles have not been strained, then chances are they have not. Talk with your therapist or allied health provider to determine what resistance exercises are safe for you, and what weight or resistance is appropriate. Flexibility exercises Flexibility is an important fitness component that helps to maintain pain-free [id number]. There are many different reasons why stretching is important, and orthopedic issues may include different recommendations specific to any conditions you may have. For general fitness, however, it is important to stretch either after exercise or independent of exercise so that your muscles are generally "not cold." It is no longer recommended to stretch prior to exercise. However, a proper warm-up of a lower-intensity cardiovascular exercise is imperative. Stretching can be performed daily, or several times a day, depending on the recommendations of your therapists. Yoga and cinda chi can also help with stretching. Ballistic stretching (or bouncing during a stretch) is not recommended. Static stretching is when a stretch is held for a specific length of time, usually several seconds to half a minute, and repeated. Dynamic stretching is a method of stretching where the body is moving fluidly while attempting to improve flexibility. Ask your therapist which methods of flexibility are appropriate for you. Balance/agility exercises Balance and agility are important not only in athletic performance, but also in general fitness. Balance can be negatively impacted by the aging process. It is never too early to try and improve balance and agility to negate this aspect of aging. Depending on any limitations you may have, not all exercises to improve balance may be appropriate for you. More basic or beginner levels of balance include standing on one foot, walking heel to toe, or standing on your toes. Cinda chi is also an excellent balance exercise for beginner and intermediate balance abilities. Intermediate levels of balance exercise may also include using the exercise ball, performing basic exercises with your eyes closed, or performing one-legged exercises. More advanced exercises include many exercise ball exercises and the BOSU ball. Talk with your therapist to determine your ability level and for suggestions to help improve balance and agility. Source www.cdc.gov/ Copyright 6855-4057 The [facility]. All rights reserved This information is provided by the [facility] and is not intended to replace the medical advice of your doctor or health care provider. Please consult your health care provider for advice about a specific medical condition. For additional health information, please contact the Center for Consumer Health Information at the [facility] or toll-free extension [phone]. If you prefer, you may visit [email or web address] or [email or web address]. This document was last reviewed on: 2017 index#[id number] documented in this encounter [facility] 09-14-2022 Nurse Note Jonathon Perales is a 72 year old male who presents for Vomiting. The patient states that he has been having vomiting since Saturday and is not sure why. He said that he is getting better since then and has been taking Pepto bismol. Tanya Richter MA documented in this encounter [facility] 09-14-2022 History of Present illness Narrative Images from the original note were not included. [facility] [address] [place] [address] Date of Evaluation: 09/14/2022 Patient Name: Jonathon Perales : 1950 Chief Complaint: Patient presents with: Vomiting Nursing Intake: Nursing Notes: Tanya Richter MA 09/14/2022 1:19 PM Signed Jonathon Perales is a 72 year old male who presents for Vomiting. The patient states that he has been having vomiting since Saturday and is not sure why. He said that he is getting better since then and has been taking Pepto bismol. Tanya Richter MA Subjective Mr. Perales is a 72 year old male who presents with the following complaint(s): Vomiting Vomiting/Nausea May be food poisoning. Improving. Thinks maybe is his nerves. Having anxiety and depression since his accident Back in November 02, 2021. Fell off a [employer] truck and hit his head. Hx of barretts esophageus and chronic abdominal pain Improved today, just wanted to keep appointment. Review of Systems Gastrointestinal: Positive for nausea and vomiting. PAST MEDICAL HISTORY Diagnosis Date (aortic stenosis) CAD (coronary artery disease) Cataract Cerebellar stroke (HCC) CVA (cerebral vascular accident) (HCC) Depression ED (erectile dysfunction) Calvin syndrome HTN (hypertension) Hyperlipidemia Kidney stone LVH (left ventricular hypertrophy) JAIRO (obstructive sleep apnea) Seasonal allergic rhinitis Vitamin B12 deficiency Vitamin D deficiency PAST SURGICAL HISTORY Procedure Laterality Date CARDIAC CATH 01/2018 COLONOSCOPY 2012 duodenitis EGD 2017 barretts FAMILY HISTORY Problem Relation Age of Onset Heart disease Mother Breast Cancer Mother other (back) Mother Heart disease Father Coronary Artery Disease Father Alcohol/Drug Father other (kidney) Father Breast Cancer Sister Hypertension Sister Social History Tobacco Use Smoking status: Some Days Types: Cigars Smokeless tobacco: Never Vaping Use Vaping Use: Never used Substance Use Topics Alcohol use: No Drug use: No Current Outpatient Medications Medication Sig Dispense Refill traZODone (DESYREL) 50 mg tablet Take 1 tablet by mouth daily at bedtime. 30 tablet 1 triamcinolone acetonide (KENALOG) 0.1 % cream Apply 1 application to affected area twice daily. 45 g 0 metoprolol tartrate, short acting, (LOPRESSOR) 25 mg tablet Take 0.5 tablets by mouth twice daily. 90 tablet 3 ezetimibe (ZETIA) 10 mg tablet Take 1 tablet by mouth once daily. 90 tablet 3 venlafaxine (EFFEXOR) 75 mg tablet Take 1 tablet by mouth three times daily. 270 tablet 3 buPROPion (WELLBUTRIN) 100 mg tablet Take 1 tablet by mouth twice daily. [address] (PROTONIX) 40 mg tablet Take 1 tablet by mouth once daily. 90 tablet 3 lisinopril (ZESTRIL, PRINIVIL) 10 mg tablet Take 1 tablet by mouth once daily. 90 tablet 3 pravastatin (PRAVACHOL) 40 mg tablet Take 1 tablet by mouth daily at bedtime. 30 tablet 11 ibuprofen (MOTRIN) 600 mg tablet Take 1 tablet by mouth every 6 hours as needed for Pain. 120 tablet 2 ONDANSETRON HCL (ZOFRAN ORAL) Take by mouth. acetaminophen (TYLENOL) 325 mg tablet Take 2 tablets by mouth every 6 hours as needed. cholecalciferol (VITAMIN D3) 50 mcg (2,000 unit) tablet Take 2,000 Units by mouth once daily. Cyanocobalamin 2,000 mcg TbER Take by mouth once daily. Minturn-3 Fatty Acids-Vitamin E 1,000 mg cap Take 1 capsule by mouth twice daily. aspirin, enteric coated (ASPIRIN, ENTERIC COATED) 81 mg EC tablet Take 81 mg by mouth once daily. clopidogrel (PLAVIX) 75 mg tablet Take 1 tablet by mouth once daily. 90 tablet 3 No current facility-administered medications for this visit. I have confirmed and edited as necessary the chief complaint, medications, past medical, family and social histories obtained by others. Objective BP 116/78 Pulse 54 Temp (Src) 98 (Tympanic) Ht 5' 5" (1.65m) Wt 167 lb (75.8kg) SpO2 100% BMI 27.79 kg/(m^2). Physical Exam Constitutional: Appearance: Normal appearance. Cardiovascular: Rate and Rhythm: Normal rate and regular rhythm. Pulmonary: Effort: Pulmonary effort is normal. Neurological: Mental Status: He is alert. Comments: Stutter Data Reviewed: Most recent labs ASSESSMENT/PLAN: 1. Viral gastroenteritis - ICD9: 008.8, ICD10: A08.4 (primary diagnosis) Acute Stable No longer an issues Drinking fluids. No nausea meds needed 2. Anxiety with depression - ICD9: 300.4, ICD10: F41.8 Seems worse Progressing Now having to take care of his . Went over that is sounds like he need extra care and attention. I gave him a psych consult to be looked at further. - CONSULT TO PSYCHIATRY Yokasta Adrian DO Return SAMIRA, for Establishment with Dr. Fernandez . Discussed the above with the patient using shared decision making. The patient is in agreement with the diagnostic and treatment plans. documented in this encounter [facility] 09-10-2022 Miscellaneous Notes Triaged not light headed no dizziness doesn't feel weak or faint not dehydrated Scheduled w/ shane for [id number] advised to go to ER if any of the above sxs develop/ forwarding to shane to advise Alberto Guillen MA ----- Message from Michelle Gilbert sent at 09/10/2022 2:51 PM EDT ----- Regarding: Medicine/ Giorgio Fernandez/ ulcer Subject Line Format: Medicine / [Provider Name] / [Issue] Patient has been identified by name and Date of (Y/N): y Patient: Jonathon Perales Date of : 1950 Provider for this encounter: Frederic Velasquez MD Reason for the call/escalation: patient called in with possible ulcer and vomiting. Patient only wanted to est care with Chava as his sister sees chava. Patient needed call back today as soon as possible from office. Was Patient Referred to [facility]/Seek Emergency Treatment (Y/N): yes Did Patient Agree (Y/N): yes Was An Attempt Made To Transfer The Patient To The Office (Y/N): n/a Were You Able To Reach Someone At The Office (Y/N): n/a If Yes - Patient Was Transferred To (Caregivers Name): n/a If No - Which [facility] [employer] Tender Did You Speak With Regarding This Patient: n/a Was an appointment scheduled (Y/N): denied appt offered Reason patient was requesting visit (RFV/signs and symptoms/diagnosis) : possible ulcer/vomiting/est care Person calling if other than patient: Lila spouse Return call to if other than patient: Lila Spouse Best contact number: [phone] Thank you, Michelle Gilbert September 10, 2022 2:52 PM documented in this encounter [facility] 04-16-2022 History of Present illness Narrative Images from the original note were not included. 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 Test Findings: Note: Where possible, the raw data have been compared with currently available norms which may include demographic corrections for age, gender, and/or education. See attached data summary sheet for individual scores. Current Medications: trazodone 50 mg, triamcinolone acetonide cream, metoprolol tartrate 12.5 mg bid, ezetimibe 10 mg, venlafaxine 75 mg tie, bupropion 10 mg bid, pantoprazole 40 mg, Lisinopril 10 mg, pravastatin 40 mg Past Medical History: two strokes, aortic valve replacement Activities of Daily Living: Pt. ADLs: reports independent Pt. IADLs: reports independent Pt. Driving: concerns with pathfinding Pt. Baker: manages with Family History: parents Social History: Alcohol Use: rare Illicit Drug Use: denied Smoking Status: occasional, no daily use Caffeine Use: 4-5 cups coffee/day Marital Status: Occupation/Work Status: currently on temporary total disability Educational History: high school graduate Psychological History: medication prescribed by primary care provider Impressions: limited assessment due to color blindness and dyslexia but data suggests a pattern of global cognitive decline likely reflective of his history of stroke as well as concussion; affective distress characterized by anxiety and depressive symptoms Diagnosis: S06.0X0A Behavioral Observations: Alert and oriented in all three spheres, Jonathon arrived on time and accompanied by his , Lila, to the appointments. He was appropriately groomed and well dressed and ambulated independently in the office setting without the assistance of a device. Speech was notable for some expressive aphasia characterized by word finding difficulties. Jonathon was verbose at times and needed redirection to remain on task. Thought processes were logical, coherent, and goal-directed, with no evidence of hallucinations or delusions. Mood was depressed with congruent affect. He was intermittently tearful during the assessment. Jonathon denied any current or recent suicidal or homicidal ideation or intent. Hearing was grossly within normal limits. Jonathon demonstrated adequate vision with use of corrective lenses. He reported that he is color blind which limited the current assessment in regard to assessment of visual spatial abilities and executive functions. Upper extremity fine motor skills were grossly intact, with no evidence of tremor or ataxia. 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 Jonathon shared he had been on his knees and when he stepped on the threshold he went to turn around to exit the vehicle when his boot got caught. He reported that he twisted his foot and lost his balance, falling six or seven feet onto the concrete pavement. Jonathon stated that he first struck the upkeep mechanic tool box with a rail and then the floor. The fall was reportedly witnessed and he was told he sustained a loss of consciousness of 15 to 20 seconds. Jonathon was seen in the emergency department where he was treated and released. He returned to work the next day but experienced onset of nausea and had to leave work. He reported that he had also returned to the emergency department. Jonathon stated over the next several days he seemed to be getting better but then the wheels came off and he has had a lot of difficulty. Jonathon shared that he is experiencing difficulties with memory, stating he got lost driving in [place] on [address] on one occasion which triggered some panic. 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 11/28/2022) [address]-2020 History of Past illness Narrative* Problem Noted Date Resolved Date Intractable vomiting with nausea 07/26/2020 08/03/2020 Chest pain 01/29/2018 09/25/2019 HTN (hypertension), benign 01/11/201702/12 documented as of this encounter (statuses as of 11/29/2022) [address]-2020 History of Past illness Narrative* Problem Noted Date Resolved Date Intractable vomiting with nausea 07/26/2020 08/03/2020 Chest pain 01/29/2018 09/25/2019 HTN (hypertension), benign 01/11/201702/12 documented as of this encounter (statuses as of 12/05/2022) [address]-2020 History of Past illness Narrative* Problem Noted Date Resolved Date Intractable vomiting with nausea 07/26/2020 08/03/2020 Chest pain 01/29/2018 09/25/2019 HTN (hypertension), benign 01/11/201702/12 documented as of this encounter (statuses as of 12/09/2022) [address]-2020 History of Past illness Narrative* Problem Noted Date Resolved Date Intractable vomiting with nausea 07/26/2020 08/03/2020 Chest pain 01/29/2018 09/25/2019 HTN (hypertension), benign 01/11/201702/12 documented as of this encounter (statuses as of 12/26/2022) [address]-2020 History of Past illness Narrative* Problem Noted Date Resolved Date Intractable vomiting with nausea 07/26/2020 08/03/2020 Chest pain 01/29/2018 09/25/2019 HTN (hypertension), benign 01/11/201702/12 documented as of this encounter (statuses as of 12/27/2022) [address]-2020 History of Past illness Narrative* Problem Noted Date Resolved Date Intractable vomiting with nausea 07/26/2020 08/03/2020 Chest pain 01/29/2018 09/25/2019 HTN (hypertension), benign 01/11/201702/12 documented as of this encounter (statuses as of 12/27/2022) [address]-2020 History of Past illness Narrative* Problem Noted Date Resolved Date Intractable vomiting with nausea 07/26/2020 08/03/2020 Chest pain 01/29/2018 09/25/2019 HTN (hypertension), benign 01/11/201702/12 documented as of this encounter (statuses as of 12/31/2022) [address]-2020 History of Past illness Narrative* Problem Noted Date Resolved Date Intractable vomiting with nausea 07/26/2020 08/03/2020 Chest pain 01/29/2018 09/25/2019 HTN (hypertension), benign 01/11/201702/12 documented as of this encounter (statuses as of 01/09/2023) [address]-2020 History of Past illness Narrative* Problem Noted Date Resolved Date Intractable vomiting with nausea 07/26/2020 08/03/2020 Chest pain 01/29/2018 09/25/2019 HTN (hypertension), benign 01/11/201702/12 documented as of this encounter (statuses as of 01/16/2023) [address]-2020 History of Past illness Narrative* Problem Noted Date Resolved Date Intractable vomiting with nausea 07/26/2020 08/03/2020 Chest pain 01/29/2018 09/25/2019 HTN (hypertension), benign 01/11/201702/12 documented as of this encounter (statuses as of 01/18/2023) [address]-2020 History of Past illness Narrative* Problem Noted Date Resolved Date Intractable vomiting with nausea 07/26/2020 08/03/2020 Chest pain 01/29/2018 09/25/2019 HTN (hypertension), benign 01/11/201702/12 documented as of this encounter (statuses as of 01/19/2023) [address]-2020 History of Past illness Narrative* Problem Noted Date Resolved Date Intractable vomiting with nausea 07/26/2020 08/03/2020 Chest pain 01/29/2018 09/25/2019 HTN (hypertension), benign 01/11/201702/12 documented as of this encounter (statuses as of 01/22/2023) [address]-2020 History of Past illness Narrative* Problem Noted Date Resolved Date Intractable vomiting with nausea 07/26/2020 08/03/2020 Chest pain 01/29/2018 09/25/2019 HTN (hypertension), benign 01/11/201702/12 documented as of this encounter (statuses as of 01/28/2023) [address]-2020 History of Past illness Narrative* Problem Noted Date Resolved Date Intractable vomiting with nausea 07/26/2020 08/03/2020 Chest pain 01/29/2018 09/25/2019 HTN (hypertension), benign 01/11/201702/12 documented as of this encounter (statuses as of 01/31/2023) [address]-2020 History of Past illness Narrative* Problem Noted Date Resolved Date Intractable vomiting with nausea 07/26/2020 08/03/2020 Chest pain 01/29/2018 09/25/2019 HTN (hypertension), benign 01/11/201702/12 documented as of this encounter (statuses as of 02/01/2023) [address]-2020 History of Past illness Narrative* Problem Noted Date Resolved Date Intractable vomiting with nausea 07/26/2020 08/03/2020 Chest pain 01/29/2018 09/25/2019 HTN (hypertension), benign 01/11/201702/12 documented as of this encounter (statuses as of 02/04/2023) [address]-2020 History of Past illness Narrative* Problem Noted Date Resolved Date Intractable vomiting with nausea 07/26/2020 08/03/2020 Chest pain 01/29/2018 09/25/2019 HTN (hypertension), benign 01/11/201702/12 documented as of this encounter (statuses as of 02/08/2023) [address]-2020 History of Past illness Narrative* Problem Noted Date Resolved Date Intractable vomiting with nausea 07/26/2020 08/03/2020 Chest pain 01/29/2018 09/25/2019 HTN (hypertension), benign 01/11/201702/12 documented as of this encounter (statuses as of 02/11/2023) [address]-2020 History of Past illness Narrative* Problem Noted Date Resolved Date Intractable vomiting with nausea 07/26/2020 08/03/2020 Chest pain 01/29/2018 09/25/2019 HTN (hypertension), benign 01/11/201702/12 documented as of this encounter (statuses as of 02/23/2023) [address]-2020 History of Past illness Narrative* Problem Noted Date Resolved Date Intractable vomiting with nausea 07/26/2020 08/03/2020 Chest pain 01/29/2018 09/25/2019 HTN (hypertension), benign 01/11/201702/12 documented as of this encounter (statuses as of 02/26/2023) [address]-2020 History of Past illness Narrative* Problem Noted Date Resolved Date Intractable vomiting with nausea 07/26/2020 08/03/2020 Chest pain 01/29/2018 09/25/2019 HTN (hypertension), benign 01/11/201702/12 documented as of this encounter (statuses as of 03/14/2023) [facility]09-[facility]-2020 History of Past illness Narrative* Problem Noted Date Resolved Date Intractable vomiting with nausea 07/26/2020 08/03/2020 Chest pain 01/29/2018 09/25/2019 HTN (hypertension), benign 01/11/201702/12 documented as of this encounter (statuses as of 03/16/2023) [address]-2020 History of Past illness Narrative* Problem Noted Date Resolved Date Intractable vomiting with nausea 07/26/2020 08/03/2020 Chest pain 01/29/2018 09/25/2019 HTN (hypertension), benign 01/11/201702/12 documented as of this encounter (statuses as of 04/17/2023) [address]-2020 History of Past illness Narrative* Problem Noted Date Resolved Date Intractable vomiting with nausea 07/26/2020 08/03/2020 Chest pain 01/29/2018 09/25/2019 HTN (hypertension), benign 01/11/201702/12 documented as of this encounter (statuses as of 05/06/2023) [address]-2020 History of Past illness Narrative* Problem Noted Date Diagnosed Date Resolved Date Intractable vomiting with nausea 07/26/2020 08/03/2020 Chest pain 01/29/2018 09/25/2019 HTN (hypertension), benign 01/11/2017 0 02/12/2018 documented as of this encounter (statuses as of 06/17/2023) [address]-2020 History of Past illness Narrative* Problem Noted Date Diagnosed Date Resolved Date Intractable vomiting with nausea 07/26/2020 08/03/2020 Chest pain 01/29/2018 09/25/2019 HTN (hypertension), benign 01/11/2017 0 02/12/2018 documented as of this encounter (statuses as of 06/19/2023) [address]-2020 History of Past illness Narrative* Problem Noted Date Diagnosed Date Resolved Date Intractable vomiting with nausea 07/26/2020 08/03/2020 Chest pain 01/29/2018 09/25/2019 HTN (hypertension), benign 01/11/2017 0 02/12/2018 documented as of this encounter (statuses as of 07/12/2023) [address]08-2020 History of Past illness Narrative* Problem Noted Date Diagnosed Date Resolved Date Intractable vomiting with nausea 07/26/2020 08/03/2020 Chest pain 01/29/2018 09/25/2019 HTN (hypertension), benign 01/11/2017 0 02/12/2018 documented as of this encounter (statuses as of 07/25/2023) [facility] History of Past illness Narrative* Problem Noted Date Diagnosed Date Resolved Date Intractable vomiting with nausea 07/26/2020 08/03/2020 Chest pain 01/29/2018 09/25/2019 HTN (hypertension), benign 01/11/2017 0 02/12/2018 documented as of this encounter (statuses as of 08/05/2023) [address]08-2020 History of Past illness Narrative* Problem Noted Date Diagnosed Date Resolved Date Intractable vomiting with nausea 07/26/2020 08/03/2020 Chest pain 01/29/2018 09/25/2019 HTN (hypertension), benign 01/11/2017 0 02/12/2018 documented as of this encounter (statuses as of 08/07/2023) [address]08-2020 History of Past illness Narrative* Problem Noted Date Diagnosed Date Resolved Date Intractable vomiting with nausea 07/26/2020 08/03/2020 Chest pain 01/29/2018 09/25/2019 HTN (hypertension), benign 01/11/2017 0 02/12/2018 documented as of this encounter (statuses as of 08/12/2023) [address]-2020 History of Past illness Narrative* Problem Noted Date Diagnosed Date Resolved Date Intractable vomiting with nausea 07/26/2020 08/03/2020 Chest pain 01/29/2018 09/25/2019 HTN (hypertension), benign 01/11/2017 0 02/12/2018 documented as of this encounter (statuses as of 10/24/2023) [address]-2020 History of Past illness Narrative* Problem Noted Date Diagnosed Date Resolved Date Intractable vomiting with nausea 07/26/2020 08/03/2020 Chest pain 01/29/2018 09/25/2019 HTN (hypertension), benign 01/11/2017 0 02/12/2018 documented as of this encounter (statuses as of 10/24/2023) [address]-2020 History of Past illness Narrative* Problem Noted Date Diagnosed Date Resolved Date Intractable vomiting with nausea 07/26/2020 08/03/2020 Chest pain 01/29/2018 09/25/2019 HTN (hypertension), benign 01/11/2017 0 02/12/2018 documented as of this encounter (statuses as of 10/28/2023) [address]2020 History of Past illness Narrative* Problem Noted Date Diagnosed Date Resolved Date Intractable vomiting with nausea 07/26/2020 08/03/2020 Chest pain 01/29/2018 09/25/2019 HTN (hypertension), benign 01/11/2017 0 02/12/2018 documented as of this encounter (statuses as of 01/12/2024) [address]2020 History of Past illness Narrative* Problem Noted Date Diagnosed Date Resolved Date Intractable vomiting with nausea 07/26/2020 08/03/2020 Chest pain 01/29/2018 09/25/2019 HTN (hypertension), benign 01/11/2017 0 02/12/2018 documented as of this encounter (statuses as of 01/16/2024) [address]2020 History of Past illness Narrative* Problem Noted Date Diagnosed Date Resolved Date Intractable vomiting with nausea 07/26/2020 08/03/2020 Chest pain 01/29/2018 09/25/2019 HTN (hypertension), benign 01/11/2017 0 02/12/2018 documented as of this encounter (statuses as of 01/30/2024) [facility] of head, initial encounter- Primary Abrasion of left elbow, initial encounter Sprain of right shoulder, unspecified shoulder sprain type, initial encounter documented in this encounter [facility] Work Phone: Evaluation note* Diagnosis Concussion with loss of consciousness, subsequent encounter- Primary documented in this encounter [facility] Work Phone: Evaluation note* Diagnosis Head injury, initial encounter- Primary Post concussive syndrome Postconcussion syndrome Fall, initial encounter Carotid artery calcification, unspecified laterality documented in this encounter [facility] Work Phone: Evaluation note* Diagnosis Postconcussion syndrome- Primary [facility]* Diagnosis Gait disorder Abnormality of gait documented in this encounter [facility] Work Phone: Evaluation note* Diagnosis Viral gastroenteritis- Primary Intestinal infection due to other organism, not elsewhere classified Anxiety with depression documented in this encounter [facility] note* Diagnosis Medication management Encounter for long-term (current) use of other medications Hyperlipidemia Other and unspecified hyperlipidemia CKD (chronic kidney disease) stage 2, GFR 60-89 ml/min Chronic kidney disease, Stage II (mild) documented in this encounter [facility] note* Diagnosis Encounter for annual wellness exam in Medicare patient- Primary Advance care planning Other specified counseling Lumbar radiculopathy Thoracic or lumbosacral neuritis or radiculitis, unspecified Sciatica associated with disorder of lumbar spine 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, unspecified vessel or lesion type HTN (hypertension), benign Essential hypertension, benign Moses's esophagus without dysplasia Moses's esophagus Recurrent major depressive disorder, in full remission (HCC) High cholesterol Pure hypercholesterolemia Need for vaccination Need for prophylactic vaccination and inoculation against unspecified single disease documented in this encounter [facility] note* Diagnosis Anxiety with depression- Primary Major depressive disorder, recurrent, in full remission (HCC) Major depressive disorder, recurrent episode, in full remission documented in this encounter [facility] note* Diagnosis Gastroenteritis- Primary Other and unspecified noninfectious gastroenteritis and colitis PUD (peptic ulcer disease) Peptic ulcer, unspecified site, unspecified as acute or chronic, without mention of hemorrhage, perforation, or obstruction Moses's esophagus without dysplasia Moses's esophagus documented in this encounter [facility]* Diagnosis Foot pain, left- Primary Pain in limb Advance care planning Other specified counseling High cholesterol Pure hypercholesterolemia Primary hypertension Unspecified essential hypertension Left leg claudication (HCC) Peripheral vascular disease, unspecified [facility] this encounter [facility] Diagnosis Foot pain, left Pain in limb documented in this encounter [facility] note* Diagnosis Vascular dementia without behavioral disturbance (HCC)- Primary Vascular dementia, uncomplicated Cerebellar stroke (HCC) documented in this encounter [facility]* Diagnosis Adjustment disorder with mixed anxiety and depressed mood- Primary Vascular dementia without behavioral disturbance (HCC) Vascular dementia, uncomplicated documented in this encounter [facility]* Diagnosis Cerebrovascular accident (CVA) due to stenosis of right carotid artery (HCC)- Primary documented in this encounter [facility]* Diagnosis S/P carotid endarterectomy- Primary Other postprocedural status Dizziness Dizziness and giddiness Nausea Nausea alone Epigastric pain Abdominal pain, epigastric Fatigue, unspecified type Active advance directive- Primary Other specified conditions influencing health status documented in this encounter [facility]* Diagnosis TIA (transient ischemic attack)- Primary Unspecified transient cerebral ischemia Carotid stenosis, right Occlusion and stenosis of carotid artery without mention of cerebral infarction Left-sided weakness Muscle weakness (generalized) Chronic abdominal pain Abdominal pain, unspecified site Primary hypertension Unspecified essential hypertension Pure hypercholesterolemia Active advance directive Other specified conditions influencing health status Hypocalcemia documented in this encounter [facility] note* Diagnosis Primary hypertension- Primary Unspecified essential hypertension Vertigo Dizziness and giddiness TIA (transient ischemic attack) Unspecified transient cerebral ischemia Carotid stenosis, right Occlusion and stenosis of carotid artery without mention of cerebral infarction Pure hypercholesterolemia documented in this encounter [facility]* Diagnosis Nausea Nausea alone 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, unspecified vessel or lesion type documented in this encounter [facility] note* Diagnosis Mild vascular dementia without behavioral disturbance, psychotic disturbance, mood disturbance, or anxiety (HCC)- Primary History of stroke Transient ischemic attack (TIA), and cerebral infarction without residual deficits documented in this encounter [facility] note* Diagnosis Lateral epicondylitis of right elbow- Primary Lateral epicondylitis of elbow Anxiety with depression Stage 3a chronic kidney disease (HCC) High cholesterol Pure hypercholesterolemia documented in this encounter [facility]* Diagnosis Cerebellar stroke (HCC)- Primary Vascular dementia without behavioral disturbance (HCC) Vascular dementia, uncomplicated documented in this encounter [facility] note* Diagnosis Vertigo Dizziness and giddiness documented in this encounter [facility]* Diagnosis Weight loss- Primary Loss of weight 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, unspecified vessel or lesion type High cholesterol Pure hypercholesterolemia Moses's esophagus without dysplasia Moses's esophagus HTN (hypertension), benign Essential hypertension, benign Anxiety with depression documented in this encounter [facility]* Diagnosis Anxiety with depression- Primary Inattention Attention or concentration deficit Cerebellar stroke (HCC) 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 Aortic dilatation (HCC) Aortic ectasia, unspecified site Laceration of right eyebrow, subsequent encounter documented in this encounter [facility] note* Diagnosis Vertigo Dizziness and giddiness documented in this encounter [facility] note* Diagnosis Acute non-recurrent pansinusitis- Primary Active advance directive Other specified conditions influencing health status documented in this encounter [facility] note* Diagnosis Acute non-recurrent pansinusitis documented in this encounter [facility] note* Diagnosis Acute left-sided low back pain with left-sided sciatica- Primary documented in this encounter [facility] note* Diagnosis Arterial ischemic stroke (HCC)- Primary Unspecified cerebral artery occlusion with cerebral infarction documented in this encounter [facility] note* Diagnosis Acute ischemic right MCA stroke (HCC)- Primary Unspecified cerebral artery occlusion with cerebral infarction documented in this encounter [facility] note* Diagnosis Stroke-like symptom- Primary Other symptoms involving nervous and musculoskeletal systems documented in this encounter [facility] note* Diagnosis Encounter for medical screening examination- Primary documented in this encounter [facility] note* Diagnosis Left-sided weakness- Primary Muscle weakness (generalized) Cerebellar stroke (HCC) Facial droop as late effect of cerebrovascular accident (CVA) Dysarthria Primary hypertension Unspecified essential hypertension documented in this encounter [facility] note* Diagnosis HTN (hypertension), benign Essential hypertension, benign documented in this encounter [facility] note* Diagnosis Acute ischemic right MCA stroke (HCC)- Primary Unspecified cerebral artery occlusion with cerebral infarction Acute ischemic right MCA stroke (HCC) Unspecified cerebral artery occlusion with cerebral infarction Acute ischemic stroke (HCC) Unspecified cerebral artery occlusion with cerebral infarction Agitation Other and unspecified special symptom or syndrome, not elsewhere classified Dysconjugate gaze Other dissociated deviation of eye movements Limb weakness Other musculoskeletal symptoms referable to limbs Oropharyngeal dysphagia Dysphagia, oropharyngeal phase On mechanically assisted ventilation (HCC) Left hemiplegia (HCC) Hemiplegia, unspecified, affecting unspecified side Facial droop due to acute cerebrovascular accident (CVA) (HCC) (HCC) Aphasia Primary hypertension Unspecified essential hypertension Mixed hyperlipidemia History of aortic valve replacement Heart valve replaced by other means JAIRO (obstructive sleep apnea) Obstructive sleep apnea (adult) (pediatric) Primary hypertension Unspecified essential hypertension Moses's esophagus without dysplasia Moses's esophagus HTN (hypertension), benign Essential hypertension, benign documented in this encounter [facility]* Diagnosis Fall, initial encounter- Primary Closed head injury, initial encounter documented in this encounter [facility] note* Diagnosis Agitation due to dementia (HCC)- Primary documented in this encounter [facility] note* Diagnosis Fall, initial encounter- Primary Closed head injury, initial encounter documented in this encounter [facility] noteNo assessment information availableWAshtab[facility] Work Phone: Hospital Discharge instructions* Attachments The following attachments cannot be sent through Care Everywhere. * Postconcussion Syndrome ([place] [facility]* Attachments The following attachments cannot be sent through Care Everywhere. * Preventing Falls in Older Adults (Citizen Of [place]) * Concussion Discharge Instructions, Adult (Citizen Of [place]) documented in this [facility] for referral (narrative)* Diagnostic Procedure Only (Routine) - Closed Specialty Diagnoses / Procedures Referred By Contac t Referred To Contact XR IMAGING Diagnoses Foot pain, left Procedures XR FOOT GENERAL 3V AP/LAT/OBL LEFT RADEX FOOT COMPLETE MINIMUM 3 VIEWS Giorgio Fernandez DO [address] [place] [address] Xr Imaging Referral ID Status Reason Start Date Expiration Date V isits Requested Visits Authorized [id number] Closed Auto-Generate d Referral 12/26/2022 01/25/2024 1 1 [facility] for referral (narrative)* Diagnostic Procedure Only (Routine) - Closed Specialty Diagnoses / Procedures Referred By Contac t Referred To Contact XR IMAGING Diagnoses Foot pain, left Procedures XR FOOT GENERAL 3V AP/LAT/OBL LEFT RADEX FOOT COMPLETE MINIMUM 3 VIEWS Giorgio Fernandez DO [address] [place] [address] Xr Imaging Referral ID Status Reason Start Date Expiration Date V isits Requested Visits Authorized [id number] Closed Auto-Generate d Referral 12/26/2022 01/25/2024 1 1 [facility] for referral (narrative)* Consultation (Routine) - Pending Review Specialty Diagnoses / Procedures Referred By Contac t Referred To Contact Occupational Therapy Diagnoses Mild vascular dementia without behavioral disturbance, psychotic disturbance, mood disturbance, or anxiety (HCC) History of stroke Procedures [place] OFFICE/OUTPATIENT NEW HIGH MDM 60-74 MINUTES Giovanni Reyes APRN - DRY STARCH OPERATOR [address] [address] Referral ID Status Reason Start Date Expiration Date Visits Requested Visits Authorized [id number] Pending Review Specialty Services Required 04/25/2023 04/25/2024 99 [facility] for referral (narrative)* Consultation (Urgent) - Pending Review Specialty Diagnoses / Procedures Referred By Contac t Referred To Contact Orthopedic Surgery Diagnoses Acute left-sided low back pain with left-sided sciatica Procedures NV OFFICE/OUTPATIENT NEW HIGH MDM 60 MINUTES Russ Castro MD [address] [place] [address] [facility] [place] [place] [facility] Ort [address] [facility] [address] [place] [id number] Referral ID Status Reason Start Date Expiration Date Visits Requested Visits Authorized [id number] Pending Review Specialty Services Required 04/14/2024 04/14/2025 [address] [facility] for referral (narrative)* Diagnostic Procedure Only (Routine) - Pending Review Specialty Diagnoses / Procedures Referred By Contac t Referred To Contact US IMAGING Diagnoses Acute ischemic right MCA stroke (HCC) Procedures US CAROTID BILATERAL Emanuel Ness APRN.DRY STARCH OPERATOR [address] [place] [address] [place] [address] Referral ID Status Reason Start Date Expiration Date Visits Requested Visits Authorized [id number] Pending Review Auto-Generat ed Referral 04/27/2024 05/27/2025 1 1 [facility] for referral (narrative)* Diagnostic Procedure Only (Routine) - Waiting for Response Specialty Diagnoses / Procedures Referred By Contac t Referred To Contact XR IMAGING Diagnoses Left-sided weakness Cerebellar stroke (HCC) Dysarthria Procedures XR MODIFIED BARIUM SWALLOW W SPEECH THERAPY RADIOLOGIC EXAM SWALLOW FUNCTION CONTRAST STUDY Giorgio Fernandez DO [address] [place] [address] [place] [address] Referral ID Status Reason Start Date Expiration Date Visits Requested Visits Authorized [id number] Waiting for Response Auto-Generat ed Referral 06/15/2024 07/15/2025 1 1 [facility] for referral (narrative)No reason for referral information [facility] Work Phone: Reason for visit Narrative* Diagnostic Procedure Only (Routine) - Closed Specialty Diagnoses / Procedures Referred By Contac t Referred To Contact XR IMAGING Diagnoses Foot pain, left Procedures XR FOOT GENERAL 3V AP/LAT/OBL LEFT RADEX FOOT COMPLETE MINIMUM 3 VIEWS Giorgio Fernandez DO [address] [place] [address] Xr Imaging Referral ID Status Reason Start Date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 Tank Tender Relationship Specialty Start Date End Date Giorgio Fernandez DO [address] [place] [address] PCP - General Family Medicine 10/02/22 Giorgio Fernandez DO [address] [place] [address] Home Care Provider Family Medicine 01/21/23 Spin Tank Tender Relationship Specialty Start Date End Date Frederic Velasquez PCP - General 12/19/16 Spin Tank Tender Relationship Specialty Start Date End Date Frederic Velasquez PCP - General 12/19/16 Spin Tank Tender Relationship Specialty Start Date End Date Frederic Velasquez PCP - General 12/19/16 Spin Tank Tender Relationship Specialty Start Date End Date Giorgio Fernandez DO [address] [place] [address] PCP - General Family Medicine 10/02/22 Giorgio Fernandez DO [address] [place] [address] Home Care Provider Family Medicine 01/21/23 Spin Tank Tender Relationship Specialty Start Date End Date Frederic Velasquez PCP - General 12/19/16 Spin Tank Tender Relationship Specialty Start Date End Date Frederic Velasquez PCP - General 12/19/16 Spin Tank Tender Relationship Specialty Start Date End Date Frederic Velasquez PCP - General 12/19/16 Spin Tank Tender Relationship Specialty Start Date End Date Giorgio Fernandez DO [address] [place] [address] PCP - General Family Medicine 10/02/22 Giorgio Fernandez DO [address] [place] [address] Home Care Provider Family Medicine 01/21/23 Spin Tank Tender Relationship Specialty Start Date End Date Giorgio Fernandez DO [address] [place], [place] 260925 PCP - General Family Medicine 10/02/22 Giorgio Fernandez DO [address] [place] [address] Home Care Provider Family Medicine 01/21/23 Spin Tank Tender Relationship Specialty Start Date End Date Giorgio Fernandez DO [address] [place], [place] 466325 PCP - General Family Medicine 10/02/22 Giorgio Fernandez DO [address] [place], [place] 100745 Home Care Provider Family Medicine 01/21/23 Spin Tank Tender Relationship Specialty Start Date End Date Giorgio Fernandez DO [address] [place], [place] 815695 PCP - General Family Medicine 10/02/22 Giorgio Fernandez DO [address] [place] [address] Home Care Provider Family Medicine 01/21/23 Spin Tank Tender Relationship Specialty Start Date End Date Giorgio Fernandez DO [address] [place], [place] 167615 PCP - General Family Medicine 10/02/22 Giorgio Fernandez DO [address] [place] [address] Home Care Provider Family Medicine 01/21/23 Spin Tank Tender Relationship Specialty Start Date End Date Giorgio Fernandez DO [address] [place], [place] 243085 PCP - General Family Medicine 10/02/22 Giorgio Fernandez DO [address] [place], [place] 964895 Home Care Provider Family Medicine 01/21/23 Spin Tank Tender Relationship Specialty Start Date End Date Giorgio Fernandez DO [address] [place], [place] 646255 PCP - General Family Medicine 10/02/22 Giorgio Fernandez DO [address] [place], [place] 262535 Home Care Provider Family Medicine 01/21/23 Spin Tank Tender Relationship Specialty Start Date End Date Giorgio Fernandez DO [address] [place], [place] 549415 PCP - General Family Medicine 10/02/22 Giorgio Fernandez DO [address] [place], [place] 409245 Home Care Provider Family Medicine 01/21/23 Spin Tank Tender Relationship Specialty Start Date End Date Giorgio Fernandez DO [address] [place], [place] 230195 PCP - General Family Medicine 10/02/22 Giorgio Fernandez DO [address] [place], [place] 997335 Home Care Provider Family Medicine 01/21/23 Spin Tank Tender Relationship Specialty Start Date End Date Giorgio Fernandez DO [address] [place], [place] 351715 PCP - General Family Medicine 10/02/22 Giorgio Fernandez DO [address] [place], [place] 391155 Home Care Provider Family Medicine 01/21/23 Spin Tank Tender Relationship Specialty Start Date End Date Giorgio Fernandez DO [address] [place], [place] 361635 PCP - General Family Medicine 10/02/22 Giorgio Fernandez DO [address] [place], [place] 851105 Home Care Provider Family Medicine 01/21/23 Spin Tank Tender Relationship Specialty Start Date End Date Giorgio Fernandez DO [address] [place], [place] [id number] PCP - General Family Medicine 10/02/22 Giorgio Fernandez DO [address] [place], [place] 875575 Home Care Provider Family Medicine 01/21/23 Spin Tank Tender Relationship Specialty Start Date End Date Giorgio Fernandez DO [address] [place], [place] 793445 PCP - General Family Medicine 10/02/22 Giorgio Fernandez DO [address] [place], [place] 912035 Home Care Provider Family Medicine 01/21/23 Spin Tank Tender Relationship Specialty Start Date End Date Giorgio Fernandez [address] [place], [place] 896855 PCP - General Family Medicine 04/13/24 Spin Tank Tender Relationship Specialty Start Date End Date Giorgio Fernandez [address] [place] [address] PCP - General Family Medicine 04/13/24 Spin Tank Tender Relationship Specialty Start Date End Date Giorgio Fernandez DO [address] [place] [address] PCP - General Family Medicine 04/16/24 Spin Tank Tender Relationship Specialty Start Date End Date Giorgio Fernandez DO [address] [place], [place] 476185 PCP - General Family Medicine 04/16/24 Giorgio Fernandez DO [address] [place] [address] Family Medicine 04/16/24 Giorgio Fernandez DO [address] [place], [place] 373775 Home Care Provider Family Medicine 01/21/23 Spin Tank Tender Relationship Specialty Start Date End Date Giorgio Fernandez DO [address] [place] [address] PCP - General Family Medicine 04/16/24 Giorgio Fernandez DO [address] [place] [address] Family Medicine 04/16/24 Giorgio Fernandez DO [address] [place] [address] Home Care Provider Family Medicine 01/21/23 Spin Tank Tender Relationship Specialty Start Date End Date Giorgio Fernandez DO [address] [place] [address] PCP - General Family Medicine 04/16/24 Giorgio Fernandez DO [address] [place], [place] 058615 Family Medicine 04/16/24 Giorgio Fernandez DO [address] [place] [address] Home Care Provider Family Medicine 01/21/23 Spin Tank Tender Relationship Specialty Start Date End Date Giorgio Fernandez DO [address] [place], [place] 861875 PCP - General Family Medicine 04/16/24 Giorgio Fernandez DO [address] [place], [place] 034125 Family Medicine 04/16/24 Giorgio Fernandez DO [address] [place], [place] 022015 Home Care Provider Family Medicine 01/21/23 Spin Tank Tender Relationship Specialty Start Date End Date Giorgio Fernandez DO [address] [place], [place] 196865 PCP - General Family Medicine 04/16/24 Giorgio Fernandez DO [address] [place], [place] 375035 Family Medicine 04/16/24 Giorgio Fernandez DO [address] [place], [place] 770365 Home Care Provider Family Medicine 01/21/23 Spin Tank Tender Relationship Specialty Start Date End Date Giorgio Fernandez DO [address] [place], [place] 071065 PCP - General Family Medicine 04/16/24 Giorgio Fernandez DO [address] [place], [place] 55543685 Family Medicine 04/16/24 Giorgio Fernandez DO [address] [place], [place] 422595 Home Care Provider Family Medicine 01/21/23 Spin Tank Tender Relationship Specialty Start Date End Date Giorgio Fernandez [address] [place], [place] 674835 PCP - General Family Medicine 04/13/24 Spin Tank Tender Relationship Specialty Start Date End Date Giorgio Feranndez [address] [place], [place] 823805 PCP - General Family Medicine 04/13/24 Spin Tank Tender Relationship Specialty Start Date End Date Giorgio Fernandez [address] [place], [place] 142005 PCP - General Family Medicine 04/13/24 Spin Tank Tender Relationship Specialty Start Date End Date Giorgio Fernandez DO [address] [place], [place] 962705 PCP - General Family Medicine 04/16/24 Giorgio Fernandez DO [address] [place], [place] 090265 Family Medicine 04/16/24 Giorgio Fernandez DO [address] [place], [place] 374985 Home Care Provider Family Medicine 01/21/23 Spin Tank Tender Relationship Specialty Start Date End Date Giorgio Fernandez DO [address] [place], [place] 790125 PCP - General Family Medicine 04/16/24 Giorgio Fernandez DO [address] [place], [place] 151655 Family Medicine 04/16/24 Giorgio Fernandez DO [address] [place], [place] 393365 Home Care Provider Family Medicine 01/21/23 Spin Tank Tender Relationship Specialty Start Date End Date Giorgio Fernandez DO [address] [place], [place] 437165 PCP - General Family Medicine 04/16/24 Giorgio Fernandez DO [address] [place], [place] 376115 Family Medicine 04/16/24 Giorgio Fernandez DO [address] [place], [place] 276545 Home Care Provider Family Medicine 01/21/23 Spin Tank Tender Relationship Specialty Start Date End Date Giorgio Fernandez DO [address] [place], [place] 706655 PCP - General Family Medicine 04/16/24 Giorgio Fernandez DO [address] [place], [place] 64209685 Family Medicine 04/16/24 Giorgio Fernandez DO [address] [place], [place] 04099685 Home Care Provider Family Medicine 01/21/23 Anita Barrera, help desk intern Materials Intern 06/19/24 Spin Tank Tender Relationship Specialty Start Date End Date Giorgio Fernandez DO [address] [place], [place] 070915 PCP - General Family Medicine 04/16/24 Giorgio Fernandez DO [address] [place], [place] [id number] Family Medicine 04/16/24 Giorgio Fernandez DO [address] [place] [address] Home Care Provider Family Medicine 01/21/23 Anita Barrera help desk intern Materials Intern 06/19/24 Spin Tank Tender Relationship Specialty Start Date End Date Giorgio Fernandez DO [address] [place] [address] PCP - General Family Medicine 04/16/24 Giorgio Fernandez DO [address] [place] [address] Family Medicine 04/16/24 Giorgio Fernandez DO [address] [place] [address] Home Care Provider Family Medicine 01/21/23 Anita Barrera RN Primary Care Materials Intern 06/19/24 Spin Tank Tender Relationship Specialty Start Date End Date Giorigo Fernandez DO [address] [place] [address] PCP - General Family Medicine 04/16/24 Giorgio Fernandez DO [address] [place] [address] Family Medicine 04/16/24 Giorgio Fernandez DO [address] [place] [address] Home Care Provider Family Medicine 01/21/23 Barrera, Anita J, help desk intern Materials Intern 06/19/24 06/26/24 Spin Tank Tender Relationship Specialty Start Date End Date Giorgio Fernandez DO [address] [place], [place] 205075 PCP - General Family Medicine 04/16/24 Giorgio Fernandez DO [address] [place], [place] 409425 Family Medicine 04/16/24 Giorgio Fernandez DO [address] [place], [place] 046105 Home Care Provider Family Medicine 01/21/23 Anita Barrera RN Primary Care Materials Intern 06/19/24 06/26/24 Spin Tank Tender Relationship Specialty Start Date End Date Giorgio Fernandez DO [address] [place] [address] PCP - General Family Medicine 04/16/24 Giorgio Fernandez DO [address] [place] [address] Family Medicine 04/16/24 Giorgio Fernandez DO [address] [place] [address] Home Care Provider Family Medicine 01/21/23 Spin Tank Tender Relationship Specialty Start Date End Date Giorgio Fernandez DO [address] [place] [address] PCP - General Family Medicine 04/16/24 Giorgio Fernandez DO [address] [place] [address] Family Medicine 04/16/24 Giorgio Fernandez DO [address] [place] [address] Home Care Provider Family Medicine 01/21/23 Spin Tank Tender Relationship Specialty Start Date End Date Giorgio Fernandez DO [address] [place] [address] PCP - General Family Medicine 04/16/24 Giorgio Fernandez DO [address] [place] [address] Family Medicine 04/16/24 Giorgio Fernandez DO [address] [place] [address] Home Care Provider Family Medicine 01/21/23 Spin Tank Tender Relationship Specialty Start Date End Date Giorgio Fernandez [address] [place] [address] PCP - General Family Medicine 04/13/24 Spin Tank Tender Relationship Specialty Start Date End Date Frederic Velasquez PCP - General 12/19/16 Spin Tank Tender Relationship Specialty Start Date End Date Rose Clark MD [address] [place] [address] [address] [place] [address] PCP - General Family Medicine 12/31/24 Spin Tank Tender Relationship Specialty Start Date End Date Rose Clark MD [address] [place] [address] [address] [place] [address] PCP - General Family Medicine 12/31/24 Team Status: Active Member Role Status Dates Rose GARSIA Attending Provider Active Star t: January 15, 2025 Team Status: Inactive Member Role Status Dates Rose GARSIA Attending Provider Active Star t: January 20, 2025 End: January 20, 2025 Team Status: Active Member Role Status Dates Rose GARSIA Attending Provider Active Star t: January 25, 2025 Team Status: Inactive Member Role Status Dates Rose GARSIA Attending Provider Active Star t: January 25, 2025 End: January 25, 2025 Team Status: Inactive Member Role Status Dates Rose GARSIA Attending Provider Active Star t: January 15, 2025 End: January 15, 2025 Team Status: Inactive Member Role Status Dates Rose GARSIA Attending Provider Active Star t: March 15, 2025 End: March 15, 2025 Team Status: Active Member Role Status Dates Rose GARSIA Attending Provider Active Star t: March 23, 2025 Team Status: Inactive Member Role Status Dates Rose GARSIA Attending Provider Active Star t: March 23, 2025 End: March 23, 2025 Team Status: Active Member Role Status Dates Rose GARSIA Attending Provider Active Star t: April 14, 2025 Team Status: Active Member Role Status Dates Rose GARSIA Attending Provider Active Star t: April 19, 2025 Ordered Prescriptions (unrec ognized section and content) Prescription Sig Dispensed Refills Start Date End Da te ondansetron (ZOFRAN-ODT) 4 MG disintegrating tablet Take 1 tablet by mouth 3 times daily as needed for Nausea or Vomiting 21 tablet 0 11/08/2021 Source Comments (unrecognize d section and content) In the event this informatio n is protected by the Federal Confidentiality of Alcohol and Drug Abuse Patient Records regulations: The Federal rules restrict any use of the information to criminally investigate or prosecute any alcohol or drug abuse patient.[facility] HospitalIn the event this information is protected by the Federal Confidentiality of Alcohol and Drug Abuse Patient Records regulations: The Federal rules restrict any use of the information to criminally investigate or prosecute any alcohol or drug abuse patient.[facility] HospitalIn the event this information is protected by the Federal Confidentiality of Alcohol and Drug Abuse Patient Records regulations: The Federal rules restrict any use of the information to criminally investigate or prosecute any alcohol or drug abuse patient.[facility] HospitalIn the event this information is protected by the Federal Confidentiality of Alcohol and Drug Abuse Patient Records regulations: The Federal rules restrict any use of the information to criminally investigate or prosecute any alcohol or drug abuse patient.[facility] HospitalIn the event this information is protected by the Federal Confidentiality of Alcohol and Drug Abuse Patient Records regulations: The Federal rules restrict any use of the information to criminally investigate or prosecute any alcohol or drug abuse patient.[facility] HospitalIn the event this information is protected by the Federal Confidentiality of Alcohol and Drug Abuse Patient Records regulations: The Federal rules restrict any use of the information to criminally investigate or prosecute any alcohol or drug abuse patient.[facility] HospitalIn the event this information is protected by the Federal Confidentiality of Alcohol and Drug Abuse Patient Records regulations: The Federal rules restrict any use of the information to criminally investigate or prosecute any alcohol or drug abuse patient.[facility] HospitalIn the event this information is protected by the Federal Confidentiality of Alcohol and Drug Abuse Patient Records regulations: The Federal rules restrict any use of the information to criminally investigate or prosecute any alcohol or drug abuse patient.[facility] HospitalIn the event this information is protected by the Federal Confidentiality of Alcohol and Drug Abuse Patient Records regulations: The Federal rules restrict any use of the information to criminally investigate or prosecute any alcohol or drug abuse patient.[facility] HospitalIn the event this information is protected by the Federal Confidentiality of Alcohol and Drug Abuse Patient Records regulations: The Federal rules restrict any use of the information to criminally investigate or prosecute any alcohol or drug abuse patient.[facility] HospitalIn the event this information is protected by the Federal Confidentiality of Alcohol and Drug Abuse Patient Records regulations: The Federal rules restrict any use of the information to criminally investigate or prosecute any alcohol or drug abuse patient.[facility] HospitalIn the event this information is protected by the Federal Confidentiality of Alcohol and Drug Abuse Patient Records regulations: The Federal rules restrict any use of the information to criminally investigate or prosecute any alcohol or drug abuse patient.[facility] HospitalIn the event this information is protected by the Federal Confidentiality of Alcohol and Drug Abuse Patient Records regulations: The Federal rules restrict any use of the information to criminally investigate or prosecute any alcohol or drug abuse patient.[facility] HospitalIn the event this information is protected by the Federal Confidentiality of Alcohol and Drug Abuse Patient Records regulations: The Federal rules restrict any use of the information to criminally investigate or prosecute any alcohol or drug abuse patient.[facility] HospitalIn the event this information is protected by the Federal Confidentiality of Alcohol and Drug Abuse Patient Records regulations: The Federal rules restrict any use of the information to criminally investigate or prosecute any alcohol or drug abuse patient.[facility] HospitalIn the event this information is protected by the Federal Confidentiality of Alcohol and Drug Abuse Patient Records regulations: The Federal rules restrict any use of the information to criminally investigate or prosecute any alcohol or drug abuse patient.[facility] HospitalIn the event this information is protected by the Federal Confidentiality of Alcohol and Drug Abuse Patient Records regulations: The Federal rules restrict any use of the information to criminally investigate or prosecute any alcohol or drug abuse patient.[facility] HospitalIn the event this information is protected by the Federal Confidentiality of Alcohol and Drug Abuse Patient Records regulations: The Federal rules restrict any use of the information to criminally investigate or prosecute any alcohol or drug abuse patient.[facility] HospitalIn the event this information is protected by the Federal Confidentiality of Alcohol and Drug Abuse Patient Records regulations: The Federal rules restrict any use of the information to criminally investigate or prosecute any alcohol or drug abuse patient.[facility] HospitalIn the event this information is protected by the Federal Confidentiality of Alcohol and Drug Abuse Patient Records regulations: The Federal rules restrict any use of the information to criminally investigate or prosecute any alcohol or drug abuse patient.[facility] HospitalIn the event this information is protected by the Federal Confidentiality of Alcohol and Drug Abuse Patient Records regulations: The Federal rules restrict any use of the information to criminally investigate or prosecute any alcohol or drug abuse patient.[facility] HospitalIn the event this information is protected by the Federal Confidentiality of Alcohol and Drug Abuse Patient Records regulations: The Federal rules restrict any use of the information to criminally investigate or prosecute any alcohol or drug abuse patient.[facility] HospitalIn the event this information is protected by the Federal Confidentiality of Alcohol and Drug Abuse Patient Records regulations: The Federal rules restrict any use of the information to criminally investigate or prosecute any alcohol or drug abuse patient.[facility] HospitalIn the event this information is protected by the Federal Confidentiality of Alcohol and Drug Abuse Patient Records regulations: The Federal rules restrict any use of the information to criminally investigate or prosecute any alcohol or drug abuse patient.[facility] HospitalIn the event this information is protected by the Federal Confidentiality of Alcohol and Drug Abuse Patient Records regulations: The Federal rules restrict any use of the information to criminally investigate or prosecute any alcohol or drug abuse patient.[facility] HospitalIn the event this information is protected by the Federal Confidentiality of Alcohol and Drug Abuse Patient Records regulations: The Federal rules restrict any use of the information to criminally investigate or prosecute any alcohol or drug abuse patient.[facility] HospitalIn the event this information is protected by the Federal Confidentiality of Alcohol and Drug Abuse Patient Records regulations: The Federal rules restrict any use of the information to criminally investigate or prosecute any alcohol or drug abuse patient.[facility] HospitalIn the event this information is protected by the Federal Confidentiality of Alcohol and Drug Abuse Patient Records regulations: The Federal rules restrict any use of the information to criminally investigate or prosecute any alcohol or drug abuse patient.[facility] HospitalIn the event this information is protected by the Federal Confidentiality of Alcohol and Drug Abuse Patient Records regulations: The Federal rules restrict any use of the information to criminally investigate or prosecute any alcohol or drug abuse patient.[facility] HospitalIn the event this information is protected by the Federal Confidentiality of Alcohol and Drug Abuse Patient Records regulations: The Federal rules restrict any use of the information to criminally investigate or prosecute any alcohol or drug abuse patient.[facility] HospitalIn the event this information is protected by the Federal Confidentiality of Alcohol and Drug Abuse Patient Records regulations: The Federal rules restrict any use of the information to criminally investigate or prosecute any alcohol or drug abuse patient.[facility] HospitalIn the event this information is protected by the Federal Confidentiality of Alcohol and Drug Abuse Patient Records regulations: The Federal rules restrict any use of the information to criminally investigate or prosecute any alcohol or drug abuse patient.[facility] HospitalIn the event this information is protected by the Federal Confidentiality of Alcohol and Drug Abuse Patient Records regulations: The Federal rules restrict any use of the information to criminally investigate or prosecute any alcohol or drug abuse patient.[facility] HospitalIn the event this information is protected by the Federal Confidentiality of Alcohol and Drug Abuse Patient Records regulations: The Federal rules restrict any use of the information to criminally investigate or prosecute any alcohol or drug abuse patient.[facility] HospitalIn the event this information is protected by the Federal Confidentiality of Alcohol and Drug Abuse Patient Records regulations: The Federal rules restrict any use of the information to criminally investigate or prosecute any alcohol or drug abuse patient.[facility] HospitalIn the event this information is protected by the Federal Confidentiality of Alcohol and Drug Abuse Patient Records regulations: The Federal rules restrict any use of the information to criminally investigate or prosecute any alcohol or drug abuse patient.[facility] HospitalIn the event this information is protected by the Federal Confidentiality of Alcohol and Drug Abuse Patient Records regulations: The Federal rules restrict any use of the information to criminally investigate or prosecute any alcohol or drug abuse patient.[facility] HospitalIn the event this information is protected by the Federal Confidentiality of Alcohol and Drug Abuse Patient Records regulations: The Federal rules restrict any use of the information to criminally investigate or prosecute any alcohol or drug abuse patient.[facility] HospitalIn the event this information is protected by the Federal Confidentiality of Alcohol and Drug Abuse Patient Records regulations: The Federal rules restrict any use of the information to criminally investigate or prosecute any alcohol or drug abuse patient.[facility] HospitalIn the event this information is protected by the Federal Confidentiality of Alcohol and Drug Abuse Patient Records regulations: The Federal rules restrict any use of the information to criminally investigate or prosecute any alcohol or drug abuse patient.[facility] HospitalIn the event this information is protected by the Federal Confidentiality of Alcohol and Drug Abuse Patient Records regulations: The Federal rules restrict any use of the information to criminally investigate or prosecute any alcohol or drug abuse patient.[facility] HospitalIn the event this information is protected by the Federal Confidentiality of Alcohol and Drug Abuse Patient Records regulations: The Federal rules restrict any use of the information to criminally investigate or prosecute any alcohol or drug abuse patient.[facility] HospitalIn the event this information is protected by the Federal Confidentiality of Alcohol and Drug Abuse Patient Records regulations: The Federal rules restrict any use of the information to criminally investigate or prosecute any alcohol or drug abuse patient.[facility] HospitalIn the event this information is protected by the Federal Confidentiality of Alcohol and Drug Abuse Patient Records regulations: The Federal rules restrict any use of the information to criminally investigate or prosecute any alcohol or drug abuse patient.[facility] HospitalIn the event this information is protected by the Federal Confidentiality of Alcohol and Drug Abuse Patient Records regulations: The Federal rules restrict any use of the information to criminally investigate or prosecute any alcohol or drug abuse patient.[facility] HospitalIn the event this information is protected by the Federal Confidentiality of Alcohol and Drug Abuse Patient Records regulations: The Federal rules restrict any use of the information to criminally investigate or prosecute any alcohol or drug abuse patient.[facility] HospitalIn the event this information is protected by the Federal Confidentiality of Alcohol and Drug Abuse Patient Records regulations: The Federal rules restrict any use of the information to criminally investigate or prosecute any alcohol or drug abuse patient.[facility] HospitalIn the event this information is protected by the Federal Confidentiality of Alcohol and Drug Abuse Patient Records regulations: The Federal rules restrict any use of the information to criminally investigate or prosecute any alcohol or drug abuse patient.[facility] HospitalIn the event this information is protected by the Federal Confidentiality of Alcohol and Drug Abuse Patient Records regulations: The Federal rules restrict any use of the information to criminally investigate or prosecute any alcohol or drug abuse patient.[facility] HospitalIn the event this information is protected by the Federal Confidentiality of Alcohol and Drug Abuse Patient Records regulations: The Federal rules restrict any use of the information to criminally investigate or prosecute any alcohol or drug abuse patient.[facility] HospitalIn the event this information is protected by the Federal Confidentiality of Alcohol and Drug Abuse Patient Records regulations: The Federal rules restrict any use of the information to criminally investigate or prosecute any alcohol or drug abuse patient.[facility] HospitalIn the event this information is protected by the Federal Confidentiality of Alcohol and Drug Abuse Patient Records regulations: The Federal rules restrict any use of the information to criminally investigate or prosecute any alcohol or drug abuse patient.[facility] HospitalIn the event this information is protected by the Federal Confidentiality of Alcohol and Drug Abuse Patient Records regulations: The Federal rules restrict any use of the information to criminally investigate or prosecute any alcohol or drug abuse patient.[facility] HospitalIn the event this information is protected by the Federal Confidentiality of Alcohol and Drug Abuse Patient Records regulations: The Federal rules restrict any use of the information to criminally investigate or prosecute any alcohol or drug abuse patient.[facility] HospitalIn the event this information is protected by the Federal Confidentiality of Alcohol and Drug Abuse Patient Records regulations: The Federal rules restrict any use of the information to criminally investigate or prosecute any alcohol or drug abuse patient.[facility] HospitalIn the event this information is protected by the Federal Confidentiality of Alcohol and Drug Abuse Patient Records regulations: The Federal rules restrict any use of the information to criminally investigate or prosecute any alcohol or drug abuse patient.[facility] HospitalIn the event this information is protected by the Federal Confidentiality of Alcohol and Drug Abuse Patient Records regulations: The Federal rules restrict any use of the information to criminally investigate or prosecute any alcohol or drug abuse patient.[facility] HospitalIn the event this information is protected by the Federal Confidentiality of Alcohol and Drug Abuse Patient Records regulations: The Federal rules restrict any use of the information to criminally investigate or prosecute any alcohol or drug abuse patient.[facility] HospitalIn the event this information is protected by the Federal Confidentiality of Alcohol and Drug Abuse Patient Records regulations: The Federal rules restrict any use of the information to criminally investigate or prosecute any alcohol or drug abuse patient.[facility] HospitalIn the event this information is protected by the Federal Confidentiality of Alcohol and Drug Abuse Patient Records regulations: The Federal rules restrict any use of the information to criminally investigate or prosecute any alcohol or drug abuse patient.[facility] HospitalIn the event this information is protected by the Federal Confidentiality of Alcohol and Drug Abuse Patient Records regulations: The Federal rules restrict any use of the information to criminally investigate or prosecute any alcohol or drug abuse patient.[facility] HospitalIn the event this information is protected by the Federal Confidentiality of Alcohol and Drug Abuse Patient Records regulations: The Federal rules restrict any use of the information to criminally investigate or prosecute any alcohol or drug abuse patient.[facility] HospitalIn the event this information is protected by the Federal Confidentiality of Alcohol and Drug Abuse Patient Records regulations: The Federal rules restrict any use of the information to criminally investigate or prosecute any alcohol or drug abuse patient.[facility] HospitalIn the event this information is protected by the Federal Confidentiality of Alcohol and Drug Abuse Patient Records regulations: The Federal rules restrict any use of the information to criminally investigate or prosecute any alcohol or drug abuse patient.[facility] HospitalIn the event this information is protected by the Federal Confidentiality of Alcohol and Drug Abuse Patient Records regulations: The Federal rules restrict any use of the information to criminally investigate or prosecute any alcohol or drug abuse patient.[facility] HospitalIn the event this information is protected by the Federal Confidentiality of Alcohol and Drug Abuse Patient Records regulations: The Federal rules restrict any use of the information to criminally investigate or prosecute any alcohol or drug abuse patient.[facility] HospitalIn the event this information is protected by the Federal Confidentiality of Alcohol and Drug Abuse Patient Records regulations: The Federal rules restrict any use of the information to criminally investigate or prosecute any alcohol or drug abuse patient.[facility] HospitalIn the event this information is protected by the Federal Confidentiality of Alcohol and Drug Abuse Patient Records regulations: The Federal rules restrict any use of the information to criminally investigate or prosecute any alcohol or drug abuse patient.[facility] HospitalIn the event this information is protected by the Federal Confidentiality of Alcohol and Drug Abuse Patient Records regulations: The Federal rules restrict any use of the information to criminally investigate or prosecute any alcohol or drug abuse patient.[facility] HospitalIn the event this information is protected by the Federal Confidentiality of Alcohol and Drug Abuse Patient Records regulations: The Federal rules restrict any use of the information to criminally investigate or prosecute any alcohol or drug abuse patient.[facility] HospitalIn the event this information is protected by the Federal Confidentiality of Alcohol and Drug Abuse Patient Records regulations: The Federal rules restrict any use of the information to criminally investigate or prosecute any alcohol or drug abuse patient.[facility] HospitalIn the event this information is protected by the Federal Confidentiality of Alcohol and Drug Abuse Patient Records regulations: The Federal rules restrict any use of the information to criminally investigate or prosecute any alcohol or drug abuse patient.[facility] HospitalIn the event this information is protected by the Federal Confidentiality of Alcohol and Drug Abuse Patient Records regulations: The Federal rules restrict any use of the information to criminally investigate or prosecute any alcohol or drug abuse patient.[facility] Goals (unrecognized section and content) Goals may be documented in a n alternate sectionGoals may be documented in an alternate sectionGoals may be documented in an alternate sectionGoals may be documented in an alternate sectionGoals may be documented in an alternate section FOR RECORDS PERTAINING TO PATIENTS WHO ARE OR HAVE BEEN ENROLLED IN A CHEMICAL DEPENDENCY/SUBSTANCEABUSE PROGRAM, SOME INFORMATION MAY BE OMITTED. This clinical summary was aggregated from multiple sources. Caution should be exercised in using it in the provision of clinical care. This summary normalizes information from multiple sources, and as a consequence, information in this document may materially change the coding, format and clinical context of patient data. In addition, data may be omitted in some cases. CLINICAL DECISIONS SHOULD BE BASED ON THE PRIMARY CLINICAL RECORDS. [facility] [employer] [facility] provides no warranty or guarantee of the accuracy or completeness of information in this document.
[2025-06-21 12:36] LABS: Valproic Acid (Depakene) Level 34 ug/mL (50-100)
== END ==
LOC: OLS.ACW400 05:00
PROVIDERS: Visit Provider Family Medicine
DX: Z79.899 Other long term (current) drug therapy
CPT/HCPCS: 36415; 80164

== ENCOUNTER → 2025-07-20 05:00 | Outpatient (REF) | payer MEDICARE, SELFPAY ==
[2025-07-20 09:21] LABS: Hematocrit 41.0 % (40-54); Hemoglobin 13.8 g/dL (13.0-16.5); Mean Corp Hgb Conc 33.7 g/dL (32-36); Mean Corpuscular Volume 97.9 fL (80-94); Mean Platelet Vol. 10.3 fl (6.2-12.0); Platelet Count 193 K/mm3 (150-450); RBC Distribution Width CV 11.8 % (11.6-14.6); RBC Distribution Width SD 42.1 fl (35.1-43.9); Red Blood Count 4.19 M/mm3 (4.6-6.2); White Blood Count 5.0 K/mm3 (4.4-11.0)
[2025-07-20 10:09] LABS: Cholesterol 226 mg/dL (<=200); Low Density Lipoprotein Calc. 107 mg/dL; Triglycerides 388 mg/dL; Very Low Density Lipoprotein 78 mg/dL (5-40); cholesterol:hdl ratio screen 5.51
[2025-07-20 10:12] LABS: AST(SGOT) 17 U/L (<=37); Alanine Aminotransfer ALT/SGPT 9 U/L (<=46); Albumin, Serum 3.6 g/dL (3.4-4.8); Alkaline Phosphatase 60 U/L (40-129); Anion Gap 10 (5-15); BUN 20 mg/dL (4-19); BUN/Creat Ratio 19.2 RATIO (10-20); Bilirubin, Direct < 0.08 mg/dL (0.00-0.30); Calcium,Total 9.1 mg/dL (7.6-11.0); Carbon Dioxide 24.4 mmol/L (21.0-32.0); Chloride 108 mmol/L (98-108); Globulin 2.3 g/dL (2.2-4.2); Glucose 124 mg/dL (70-99); Potassium 4.0 mmol/L (3.3-5.1)
== END ==
LOC: OLS.ACW400 05:00
PROVIDERS: Visit Provider Family Medicine
DX: I69.354 Hemiplegia and hemiparesis following cerebral infarction affecting left non-dominant side; I69.392 Facial weakness following cerebral infarction
CPT/HCPCS: 36415; 80048; 80061; 80076; 85027

== ENCOUNTER → 2025-09-14 05:00 | Outpatient (REF) | payer MEDICARE, SELFPAY ==
--- OUTSIDE RECORDS SUMMARY | 2025-09-14 03:58 | XMS RPT_ITS | CCD ---
Author Organization [facility] Care Team Providers Care Electrical Accessories Ii Assembler Name Role Phone Frederic Velasquez Primary Care Provider Alem Velasquez Attending Unavailable Ron, Edward Referring Unavailable Ron, Edward Primary Care Unavailable Ron, Edward Referring Unavailable Daisy Costello Attending Unavailable Ron, Edward Primary Care Unavailable Daisy Costello Attending Unavailable Ron, Edward Referring Unavailable Ron, Edward Primary Care Unavailable Ron, Edward Referring Unavailable Alem Velasquez Attending Unavailable Ron, Edward Primary Care Unavailable Alem Velasquez Attending Unavailable Ron, Edward Referring Unavailable Ron, Edward Primary Care Unavailable Alem Velasquez Attending Unavailable Ron, Edward Referring Unavailable Ron, Edward Primary Care Unavailable Ron, Edward Referring Unavailable Daisy Costello Attending Unavailable Ron, Edward Primary Care Unavailable Ron, Edward Referring Unavailable Kathrin Koroma Attending Unavailable Ron, Edward Primary Care Unavailable Hector Dale Attending Unavailable Rno, Edward Primary Care Unavailable Ron, Edward Referring [...] Unavailable Shane Justice PA-C Primary Care Provider Fernandez DO, Giorgio Villa Primary Care Provider Shane Justice PA-C Primary Care Provider Fernandez DO, Giorgio Villa Primary Care Provider Giorgio Fernandez DO Unavailable Frederic Velasquez Primary Care Provider Frederic Velasquez Primary Care Provider [place] DO~[id number], [facility] Attending Unavailable ALEA ESPOSITO~[id number], ALEA whitman Unavailable AA UNKNOWN PCP, UNKNOWN Primary Care Unavaila ble Chava DO, Giorgio Villa Primary Care Provider Giorgio Fernandez Primary Care Provider [phone] Unavailable Primary Care Provider Unavailalfredo e Fernandez , Giorgio Villa Primary Care Provider RAMIREZ CANTOR Attending Unavailable CARLOS VAUGHN Admitting Unavailable Giorgio Fernandez DO Unavailable Rosamaria PATEL, Anita De Anda Unavailable UnavailSELENA Garcia Attending Unavailable SELENA HAZEL Admitting Unavailable PRIYANKA TAI Consulting Unavailable FERNANDEZGIORGIO Primary Care Unavaila RADHA Green Attending Unavailable Rosamaria PATEL, Anita De Anda Unavailable UnavailRose Norton MD Primary Care Provider TANYA JUNG Attending UnaROSE Hernandes Primary Care Unavailable ROSE CLARK Primary Care Unavailable TWIN WOLFE Attending Unavailable FERNANDEZ, GIORGIO Primary Care Unavailable FREDRICK HOWELL Attending Unavailable RUSS CASTRO Attending Unavailable FERNANDEZ, GIORGIO Primary Care Unavailable TOMI, ALANA Referring Unavailable FERNANDEZ, GIORGIO Primary Care Unavailable TOMI, ALANA Referring Unavailable FERNANDEZ, GIORGIO Primary Care Unavailable LAFOUNTAIN, RUSS Referring Unavailable FERNANDEZ, GIORGIO Primary Care Unavailable TOMI, ALANA Referring Unavailable FERNANDEZ, GIORGIO Primary Care Unavailable TREE, RUSS Referring Unavailable FERNANDEZ, GIORGIO Primary Care Unavailable FERNANDEZ, GIORGIO Primary Care Unavailable TIRSO KRISHNANTIN Attending Unavailable Rose Keith Attending Provider UnavailKATIA Duong Attending Unavailable FERNANDEZ, GIORGIO VILLA Primary Care Unavaila ble FERNANDEZ, GIORGIO VILLA Primary Care Unavaila ble FERNANDEZ, GIORGIO VILLA Primary Care Unavaila ble FERNANDEZ, GIORGIO VILLA Primary Care Unavaila ble FERNANDEZ, GIORGIO VLILA Attending Unavaila ble FERNANDEZ, GIORGIO DAISY Referring Unavaila ble FERNANDEZ, GIORGIO VILLA Primary Care Unavaila ble Ayse GARSIA, Rose Attending Unavailable Ayse GARSIA, Rose Attending Unavailable Ayes GARSIA, Roes Attending Unavailable Ayse GARSIA, Rose Attending Unavailable [...] oxyCODONE Drug Allergy 8 Mental Status Change [facility] (20 sources) Acetaminophen / oxyCODONE; Translations: [OXYCODONE-ACETAMI NOPHEN] Drug Allergy 8 Mental Status Change [facility] Medications Current Medications Medication Drug Class(es) [...] Take 1 tablet by gregoria th every 12 hours for 7 days. aspirin [...] daily. docusate sodium 50 mg / sennosides, correction 8.6 mg oral tablet (20 sources) Start: [...] Discontinued Start: 03-13-2024 take 0.5 tablet by out twice daily metoprolol tartrate, short acting, (LOPRESSOR) [...] mouth once daily. TAKE ONE TABLET BY M OUT THREE TIMES A DAY Take 1 tablet in the morning and 2 tablets at bedtime. Completed/Discontinued Medications Medication Drug Class(es) Dates Sig (Normalized) Sig (Original) acetaminophen 325 mg oral tablet (20 sources) Start: 10-31-2021 End: 10-31-2021 acetaminophen (TYLENOL) tablet 650 mg Start: 01-31-2018 take 2 tablets by mo [facility] every six hours as needed [...] on above: Take 2 tablets by mo uth every 6 hours as needed. acetaminophen 325 [...] every four hours as needed for pain srbnzaasar-fkqxgyttqedic-mtbifvnr (LUIS CET, ESGIC) 50-325-40 MG per tablet [...] at bedtime. TAKE ONE TABLET BY M OUTH EVERY DAY AT BEDTIME 24 hr buPROPion [...] th once daily. Take 1 tablet by gregoria th daily at bedtime. fluticasone propionate 0.05 mg/actuat metered dose nasal spray (11 sources) Corticosteroid Start: take 1 spray(s) nasal route once daily fluticasone (FLONASE ALLERGY RELIEF) 50 mcg/actuation nasal spray Indications: Acute non-recurrent pansinusitis Use 1 [facility] in each nostril once daily. 1 Each 0 01/30/2024 Suspended Comment on above: Use 1 [facility] in each nostril once daily. ibuprofen 600 [...] on above: Take 1 tablet by [facility] once daily. methylphenidate hydrochloride 5 mg oral tablet (10 sources) Central Nervous System Stimulant Start: 10-04-20 End: 01-17-20 23 methylphenidate (RITALIN) 5 mg tablet [place]-3 Fatty Acids-Vitamin E (FISH OIL) 1,000 mg cap (2 sources) take 1 capsule by mouth twice daily [place]-3 Fatty Acids-Vitamin E (FISH OIL) 1,000 mg cap Take 1 capsule by mouth twice daily. 0 Active Comment on above: Take 1 capsule by mo [facility] twice daily. [place]-3 Fatty Acids-Vitamin E 1,000 mg cap (19 sources) take 1 capsule by mouth twice daily [place]-3 Fatty Acids-Vitamin E 1,000 mg cap Take 1 capsule by mouth twice daily. 0 Suspended take 1 capsule by mouth twice da [place]-3 Fatty Acids-Vitamin E 1,000 mg cap Take 1 capsule by mouth twice daily. 0 Active Comment on above: Take 1 capsule by [facility] twice daily. ondansetron 4 mg oral [...] on above: Take 1 tablet by gregoria daily at bedtime. 50 ml sodium chloride [...] on above: Take 1 tablet by gregoria daily at bedtime. 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] Onset: 02-25-2022 Episodic Other aftercare (3 sources) Patient encounter status; Translations: [Other herb counselor (current) drug therapy] Episodic Other and ill-defined [...] 07-28-2024 Episodic Other aftercare (1 source) Other herb counselor (current) drug therapy; Translations: [Other herb counselor (current) drug therapy] Onset: 02-19-2025 Episodic Other [...] on 04-19-2025 Bilirubin.direct [Mass/Vol] 0.09 mg/dL 0.00-0.30 [facility] Bilirubin, totalOrdered By: Rose Clark on 04-19-2025 Bilirubin [Mass/Vol] 0.26 mg/dL 0.00-1.30 [facility] - Chemistry and C hemistry - challengeOrdered By: Rose Clark on 04-19-2025 AST [Catalytic activity/Vol] 16 U/L <38 [facility] Serum globulin measurementOr dered By: Rose Clark on 04-19-2025 Globulin (S) [Mass/Vol] 2.4 g/dL 2.2-4.2 [facility] Serum or plasma alanine khoury otransferase (ALT) measurementOrdered By: Rose Clark on 06-02-2025 ALT [Catalytic activity/Vol] 16 U/L <47 [facility] Serum or plasma albumin saumya urement (mass/volume)Ordered By: Rose Clark on 04-19-2025 Albumin [Mass/Vol] 4.2 g/dL 3.4-4.8 [facility] Serum or plasma alkaline dung sphatase measurementOrdered By: Rose Clark on 04-19-2025 ALP [Catalytic activity/Vol] 78 U/L 40-129 [facility] Serum or plasma valproate me asurement (mass/volume)Ordered By: Rose Clark on 04-19-2025 Valproate [Mass/Vol] 42 ug/mL Low 50-100 [facility] Comment on above: Valproic Acid concen trations >100 ug/mL are potentially toxic. Total proteinOrdered By: Simone Calrk on 04-19-2025 Protein [Mass/Vol] 6.6 g/dL 5.9-8.4 [facility] Bilirubin directOrdered By: Rose Clark on 04-14-2025 Bilirubin.direct [Mass/Vol] 0.20 mg/dL 0.00-0.30 [facility] Bilirubin, totalOrdered By: Rose Clark on 04-14-2025 Bilirubin [Mass/Vol] 0.54 mg/dL 0.00-1.30 [facility] - Chemistry and C hemistry - challengeOrdered By: Rose Clark on 04-14-2025 AST [Catalytic activity/Vol] 26 U/L <38 [facility] Serum globulin measurementOr dered By: Rose Clark on 04-14-2025 Globulin (S) [Mass/Vol] 3.0 g/dL 2.2-4.2 [facility] Serum or plasma alanine khoury otransferase (ALT) measurementOrdered By: Rose Clark on 04-14-2025 ALT [Catalytic activity/Vol] 22 U/L <47 [facility] Serum or plasma albumin saumya urement (mass/volume)Ordered By: Rose Clark on 04-14-2025 Albumin [Mass/Vol] 3.5 g/dL 3.4-4.8 [facility] Serum or plasma alkaline dung sphatase measurementOrdered By: Rose Clark on 04-14-2025 ALP [Catalytic activity/Vol] 70 U/L 40-129 [facility] Total proteinOrdered By: Simone Clark on 04-14-2025 Protein [Mass/Vol] 6.5 g/dL 5.9-8.4 [facility] Bilirubin Test strip Ql (U)O rdered By: Rose Clark on 03-23-2025 Bilirubin Ql (U) Negative Negative [facility] Ketones Test strip Ql (U)Ord ered By: Rose Clark on 03-23-2025 Ketones Ql (U) Negative Negative [facility] Nitrite Test strip Ql (U)Ord ered By: Rose Clark on 03-23-2025 Nitrite Ql (U) Negative Negative [facility] Protein Test strip Ql (U)Ord ered By: Rose Clark on 03-23-2025 Protein Ql (U) 15 mg/dl High Negative [facility] Urine clarityOrdered By: Simone Clark on 03-23-2025 Clarity (U) Clear Clear [facility] Urine color determinationOrd ered By: Rose Clark on 03-23-2025 Color (U) Yellow Yellow [facility] Urine glucose detectionOrder ed By: Rose Clark on 03-23-2025 Glucose Ql (U) Normal mg/dl Normal [facility] Urine leukocyte esterase det ection by dipstickOrdered By: Rose Clark on 03-23-2025 Leukocyte esterase Test strip Ql (U) Negative Negative [facility] Urine pHOrdered By: Rose maravilla on 03-23-2025 pH (U) 6.5 [pH] 5.0 - 8.0 [facility] Urine specific gravity measu rementOrdered By: Rose Clark on 03-23-2025 Specific gravity (U) [Rel density] 1.015 1.002-1.030 [facility] Urine urobilinogen measureme ntOrdered By: Rose Clark on 03-23-2025 Urobilinogen Ql (U) Normal mg/dl Normal [facility] Bilirubin directOrdered By: Rose Clark on 03-15-2025 Bilirubin.direct [Mass/Vol] 0.08 mg/dL 0.00-0.30 [facility] Comment on above: Hemolysis present, R esults could be affected. Bilirubin, totalOrdered By: Rose Clark on 03-15-2025 Bilirubin [Mass/Vol] 0.33 mg/dL 0.00-1.30 [facility] - Chemistry and C hemistry - challengeOrdered By: Rose Clark on 03-15-2025 AST [Catalytic activity/Vol] 24 U/L <38 [facility] Comment on above: Hemolysis present, R esults could be affected. Serum globulin measurementOr dered By: Rose Clark on 03-15-2025 Globulin (S) [Mass/Vol] 2.9 g/dL 2.2-4.2 [facility] Serum or plasma alanine khoury otransferase (ALT) measurementOrdered By: Rose Clark on 03-15-2025 ALT [Catalytic activity/Vol] 14 U/L <47 [facility] Serum or plasma albumin saumya urement (mass/volume)Ordered By: Rose Clark on 03-15-2025 Albumin [Mass/Vol] 3.9 g/dL 3.4-4.8 [facility] Serum or plasma alkaline dung sphatase measurementOrdered By: Rose Clark on 03-15-2025 ALP [Catalytic activity/Vol] 84 U/L 40-129 [facility] Total proteinOrdered By: Simone Clark on 03-15-2025 Protein [Mass/Vol] 6.8 g/dL 5.9-8.4 [facility] Bilirubin directOrdered By: Rose Clark on 01-25-2025 Bilirubin.direct [Mass/Vol] 0.11 mg/dL 0.00-0.30 [facility] Bilirubin, totalOrdered By: Rose Clark on 01-25-2025 Bilirubin [Mass/Vol] 0.21 mg/dL 0.00-1.30 [facility] - Chemistry and C hemistry - challengeOrdered By: Rose Clark on 01-25-2025 AST [Catalytic activity/Vol] 23 U/L <38 [facility] Serum globulin measurementOr dered By: Rose Clark on 01-25-2025 Globulin (S) [Mass/Vol] 3.0 g/dL 2.2-4.2 [facility] Serum or plasma alanine khoury otransferase (ALT) measurementOrdered By: Rose Clark on 01-25-2025 ALT [Catalytic activity/Vol] 34 U/L <47 [facility] Serum or plasma albumin saumya urement (mass/volume)Ordered By: Rose Clark on 01-25-2025 Albumin [Mass/Vol] 3.6 g/dL 3.4-4.8 [facility] Serum or plasma alkaline dung sphatase measurementOrdered By: Rose Clark on 01-25-2025 ALP [Catalytic activity/Vol] 137 U/L High 40-129 [facility] Total proteinOrdered By: Simone Clark on 01-25-2025 Protein [Mass/Vol] 6.6 g/dL 5.9-8.4 [facility] Serum or plasma valproate me asurement (mass/volume)Ordered By: Rose Clark on 01-20-2025 Valproate [Mass/Vol] 29 ug/mL Low 50-100 [facility] Comment on above: Valproic Acid concen trations >100 ug/mL are potentially toxic. Valproate [Mass/Vol]Ordered By: Rose Clark on 01-20-2025 Valproic Acid (Depakene) Level 29 ug/mL Low 50-100 [facility] Comment on above: Valproic Acid concen trations >100 ug/mL are potentially toxic. CT CERVICAL SPINE WO IV CONT Na 01-18-2025 CT CERVICAL SPINE WO IV CONTRAST Patient Name: [facility]ONATH[facility] PERALES [facility] 1950 [id number] Exam Date/Time: 01/18/2025 15:23 Procedure: CT CERVICAL [...] Patient is on plavix and ASA Normal [facility] CT Cervical spine WO contras ton 01-18-2025 No cervical spine fracture. Report Dictated on Electronically Signed By: Willie Cordon MD Electronically Signed Date/Time: 01/18/2025 5:02 PM EST [facility] [employer] Patient Name: JONATHON DEWITT : 1950 [...] soft tissues and lung apices are unremarkable. [facility] Willie Cordon MD - 01/18/2025 Patient Name: [...] MD Electronically Signed Date/Time: 01/18/2025 5:02 PM [facility] Radiology Study observation (narrative) [facility] CT HEAD WO IV CONTRASTon CT [...] MD Electronically Signed Date/Time: 01/18/2025 5:01 PM [facility] Patient had 2 falls today, fell from the bed. Hx of left hemiparesis, hematoma on the left side of the head. Patient is on plavix and ASA Normal [facility] CT Head WO contraston 2024 Remote bilateral infarcts with background cerebral atrophy and chronic small vessel ischemia as above. No acute intracranial hemorrhage or mass effect. Report Dictated on Electronically Signed By: Willie Cordon MD Electronically Signed Date/Time: 01/18/2025 5:01 PM [facility] Patient Name: JONATHON DEWITT : [...] cells are well aerated. Calvarium is unremarkable. [facility] Willie Cordon MD - 01/18/2025 Patient Name: JONATHON PERALES : 1950 [id number] Exam Date/Time: 01/18/2025 15:23 Procedure: CT HEAD [...] Electronically Signed Date/Time: 01/18/2025 5:01 PM EST [facility] Radiology Study observation (narrative) [facility] CT Head WO contrastOrdered B y: Willie Crodon on 01-18-2025 [employer] Phone: ED Nursing Noteon 01-18-2025 ED Nursing Note Patient had 2 falls today, fell from the bed. Hx of left hemiparesis, hematoma on the left side of the head. Patient is on plavix and ASA Normal [facility] ED Provider Noteon ED Provider Note EMERGENCY DEPARTMENT ENCOUNTER Pt Name: Jonathon Perales Birthdate 1950 Date of evaluation: 01/18/2025 ED Provider: Twin Wolfe MD CHIEF COMPLAINT Chief Complaint Patient presents with Fall Patient fell today according to staff at [facility], out of his bed, hematoma to the [...] of bed onto the floor at his residential facility. Patient states he did not lose [...] Dewayne Epic Supra Stented valve model # [id number] 12/03/2008 CURRENT MEDICATIONS Previous Medications ACETAMINOPHEN (TYLENOL) [...] Resource Strain: Low Risk (04/30/2024) Received from [facility] Medical Overall Financial Resource Strain (CARDIA) Difficulty of Paying Living Expenses: Not hard at all Food Insecurity: No Food Insecurity (05/19/2024) Received from [facility] Hunger Vital Sign Worried About Running Out of Food in the Last Year: Never true Ran Out of Food in the Last Year: Never true Transportation Needs: No Transportation Needs (05/19/2024) Received from [facility] PRAPARE - Transportation Lack of Transportation (Medical): No Lack of Transportation (Non-Medical): No Stress: No Stress Concern Present (05/15/2024) Received from [facility] [employer] - Occupational Stress Questionnaire Feeling of Stress : Not at (more content not included)... Normal [facility] BUN/creatinine ratioOrdered By: Rose Clark on 01-15-2025 Urea nitrogen/Creatinine [Mass ratio] 17.5 mg/mg 10-20 [facility] Bilirubin directOrdered By: Rose Clark on 01-15-2025 Bilirubin.direct [Mass/Vol] 1.13 mg/dL High 0.00-0.30 [facility] Bilirubin, totalOrdered By: Rose Clark on 01-15-2025 Bilirubin [Mass/Vol] 2.05 mg/dL High 0.00-1.30 [facility] Calculated very low density lipoprotein (VLDL) cholesterol measurementOrdered By: Rose Clark on 01-15-2025 Calculated very low density lipoprotein (VLDL) cholesterol measurement 20 mg/dL 5-40 [facility] VLDL Cholesterol 20 mg/dL 5-40 [facility] Carbon dioxide measurementOr dered By: Rose Clark on 01-15-2025 CO2 [Moles/Vol] 22.5 mmol/L 22.0-29.0 [facility] Chloride measurementOrdered By: Rose Clark on 01-15-2025 Chloride [Moles/Vol] 99 mmol/L 96-108 [facility] Erythrocyte distribution wid th (RBC) [Ratio]Ordered By: Rose Clark on 01-15-2025 Erythrocyte distribution width (RBC) [Entitic vol] 43.7 fL 35.1-43.9 [facility] Erythrocyte distribution wid th ratioOrdered By: Rose Clark on 01-15-2025 Erythrocyte distribution width (RBC) [Ratio] 12.5 % 11.6-14.6 [facility] Erythrocyte distribution wid th standard deviationOrdered By: Rsoe Clark on 01-15-2025 Erythrocyte distribution width (RBC) [Ratio] 43.7 fl 35.1-43.9 [facility] GFR/1.73 sq M.predicted fiorella g non-blacks MDRD (S/P/Bld) [Vol rate/Area]Ordered By: Rose Clark on 01-15-2025 Estimated GFR (MDRD) Non-Af Amer 81 >60 [facility] Comment on above: mL/min/1.73m2 CKD-EP I Creatinine Equation (2020) Glomerular filtration rate ( GFR) estimation/1.73 sq m using serum, plasma, or whole bOrdered By: Rose Clark on 01-15-2025 GFR/1.73 sq M.predicted among non-blacks MDRD (S/P/Bld) [Vol rate/Area] 81 mL/min/{1.73_m2} >60 [facility] Comment on above: mL/min/1.73m2 CKD-EP I Creatinine Equation (2020) Hematocrit Auto (Bld) [Volum e fraction]Ordered By: Rose Clark on 01-15-2025 Hematocrit (Bld) [Volume fraction] 43.3 % 40-54 [facility] Hemoglobin measurementOrdere d By: Rose Clark on 01-15-2025 Hemoglobin (Bld) [Mass/Vol] 14.2 g/dL 13.0-16.5 [facility] LDL calc ser/plasOrdered By: Rose Clark on 01-15-2025 Cholesterol in LDL [Mass/Vol] 83 mg/dL [facility] Comment on above: Mfdpgzdwmx=052-457 m g/dL & Higher Bhvr=750 mg/dL or greater LDL Cholesterol, Calculated 83 mg/dL [facility] Comment on above: Jbkabxqigi=053-185 m g/dL & Higher Kphz=617 mg/dL or greater Laboratory - Chemistry and C hemistry - challengeOrdered By: Rose Clark on 01-15-2025 AST [Catalytic activity/Vol] 529 U/L High <38 [facility] MCV (mean corpuscular volume ) determinationOrdered By: Rose Clark on 01-15-2025 MCV (RBC) [Entitic vol] 95.4 fL High 80-94 [facility] Mean corpuscular hemoglobin (MCH) determinationOrdered By: Rose Clark on 01-15-2025 MCH (RBC) [Entitic mass] 31.3 pg 27.0-32.0 [facility] Mean corpuscular hemoglobin concentration (MCHC) determinationOrdered By: Rose Clark on 01-15-2025 MCHC (RBC) [Mass/Vol] 32.8 g/dL 32-36 [facility] Mean platelet volume determi nationOrdered By: Rose Clark on 01-15-2025 Platelet mean volume (Bld) [Entitic vol] 10.2 fL 6.2-12.0 [facility] Platelet countOrdered By: Aleena Clark on 01-15-2025 Platelets (Bld) [#/Vol] 179 10*3/uL 150-450 [facility] RBC Auto (Bld) [#/Vol]Ordere d By: Rose Clark on 01-15-2025 RBC (Bld) [#/Vol] 4.54 10*6/uL Low 4.6-6.2 [facility] Screening total cholesterol/ high density lipoprotein (HDL) cholesterol ratioOrdered By: Rose Clark on 01-15-2025 Cholesterol.total/Geno sterol in HDL [Mass ratio] 2.59 {ratio} [facility] Serum creatinine measurement (mass/volume)Ordered By: Rose Clark on 01-15-2025 Creatinine [Mass/Vol] 0.98 mg/dL 0.70-1.20 [facility] Serum globulin measurementOr dered By: Rose Clark on 01-15-2025 Globulin (S) [Mass/Vol] 3.1 g/dL 2.2-4.2 [facility] Serum glucose measurement (m ass/volume)Ordered By: Rose Clark on 01-15-2025 Glucose [Mass/Vol] 89 mg/dL 70-99 [facility] Serum or plasma alanine khoury otransferase (ALT) measurementOrdered By: Rose Clark on 01-15-2025 ALT [Catalytic activity/Vol] 627 U/L High <47 [facility] Serum or plasma albumin saumya urement (mass/volume)Ordered By: Rose Clark on 01-15-2025 Albumin [Mass/Vol] 3.8 g/dL 3.4-4.8 [facility] Serum or plasma alkaline dung sphatase measurementOrdered By: Rose Clark on 01-15-2025 ALP [Catalytic activity/Vol] 196 U/L High 40-129 [facility] Serum or plasma anion gap de termination (moles/volume)Ordered By: oRse Clark on 01-15-2025 Anion gap [Moles/Vol] 12 mmol/L 5-15 [facility] Serum or plasma calcium saumya urement (mass/volume)Ordered By: Rose Clark on 01-15-2025 Calcium [Mass/Vol] 9.3 mg/dL 7.6-11.0 [facility] Serum or plasma cholesterol in HDL measurement (mass/volume)Ordered By: Rose Clark on 01-15-2025 Cholesterol in HDL [Mass/Vol] 65 mg/dL >40 [facility] Comment on above: National Cholesterol Education Program (NCEP) guidelines:<40 mg/dL: Low HDL-cholesterol (major risk factor for CHD)>= 60 mg/dL: High HDL-cholesterol (negative risk factor for CHD)HDL-cholesterol is affected by a number of factors, e.g. smoking, exercise, hormones, sex and age. Serum or plasma cholesterol measurement (mass/volume)Ordered By: Rose Clark on 01-15-2025 Cholesterol [Mass/Vol] 168 mg/dL <201 [facility] Comment on above: Cholesterol level, D esirable <200 mg/dLBorderline high cholesterol 200-239 mg/dLHigh cholesterol >=240 mg/dLRecommendations of the NCEP Adult Treatment Panel for the following risk-cutoff thresholds for the [place] population. Serum or plasma potassium me asurementOrdered By: Rose Clark on 01-15-2025 Potassium [Moles/Vol] 4.6 mmol/L 3.3-5.1 [facility] Serum or plasma sodium measu rement (moles/volume)Ordered By: Rose Clark on 01-15-2025 Sodium [Moles/Vol] 133 mmol/L 133-145 [facility] Serum or plasma urea nitroge n measurement (mass/volume)Ordered By: Rose Clark on 01-15-2025 Urea nitrogen [Mass/Vol] 17 mg/dL 4-19 [facility] Total proteinOrdered By: Simone Clark on 01-15-2025 Protein [Mass/Vol] 6.8 g/dL 5.9-8.4 [facility] Triglycerides measurementOrd ered By: Rose Clark on 01-15-2025 Triglyceride [Mass/Vol] 101 mg/dL <199 [facility] Comment on above: The drugs N-Acetylcy steine and Metamizole may falsely depress this assay. Normal range: <150 mg/dLBorderline High: 150-199 mg/dLHigh: 200-499 mg/dLVery High: >500 mg/dL White blood cell (WBC) count Ordered By: Rose Clark on 01-15-2025 WBC (Bld) [#/Vol] 7.9 10*3/uL 4.4-11.0 [facility] BASIC METABOLIC PANELon 12-19 Anion gap [Moles/Vol] 7 mmol/L Normal 3-13 [facility] Comment on above: Performed By: #### L AB15 ####Public Administration Professor: ERIKA SAVAGE ([id number])[facility] IRMA RITTMAN (PaperFliesRLAB)[address] [place] [address] Calcium [Mass/Vol] 9.5 mg/dL Normal 8.8-10.0 [facility] Comment on above: Performed By: #### L AB15 ####Public Administration Professor: ERIKA SAVAGE ([phone])[facility] [employer]MA [employer]IT[employer] (PaperFliesRLAB)[address] [place] [address] Chloride [Moles/Vol] 107 mmol/L Normal 98-107 [facility] Comment on above: Performed By: #### L AB15 ####Public Administration Professor: ERIKA SAVAGE ([phone])[facility] [employer] (SWRLAB)[address] [place] [address] [place] CO2 [Moles/Vol] 27 mmol/L Normal 23-31 [facility] Comment on above: Performed By: #### L AB15 ####Public Administration Professor: ERIKA SAVAGE ([id number])[facility] SOL[facility]IT[facility] (SWRLAB)[address] [place] [address] [place] Creatinine [Mass/Vol] 1.09 mg/dL Normal 0.72-1.25 [facility] Comment on above: Performed By: #### L AB15 ####Public Administration Professor: ERIKA SAVAGE ([phone])[facility] ARAUZ[facility]AN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 light after he was screaming. He said now I know you aren't just going to walk in here. You aren't going to do anything" [facility] ED Provider Noteon ED Provider Note EMERGENCY DEPARTMENT ENCOUNTER Pt Name: Jonathon Perales Birthdate 1950 Date of evaluation: 09/24/2024 ED Provider: Sloane Saldaña MD CHIEF COMPLAINT Chief Complaint Patient presents with ? [facility]. States "He was sitting on [...] Dewayne Epic Supra Stented valve model # [id number] 12/03/2008 CURRENT MEDICATIONS Current Discharge Medication List [...] Resource Strain: Low Risk (04/30/2024) Received from [facility] Medical Overall Financial Resource Strain ([facility]) ? Difficulty of Paying Living Expenses: Not hard at all Food Insecurity: No Food Insecurity (05/19/2024) Received from [facility] Hunger Vital Sign ? Worried About Running Out of Food in the Last Year: Never true ? Ran Out of Food in the Last Year: Never true Transportation Needs: No Transportation Needs (05/19/2024) Received from [facility] PRAPARE - Transportation ? Lack of Transportation (Medical): No ? Lack of Transportation (Non-Medical): No Stress: No Stress Concern Present (05/15/2024) Received from [facility] Medical [employer] of Occupational Health - Occupational Stress Questionnaire ? Feeling of Stress : Not at all Social Connections: Unknown (04/30/2024) Received from [facility] Medical Social Connection and Isolation Panel [NHANES] ? Frequency of Communication with Friends and Family: More than three times a week ? Frequency of Social Gatherings with Friends and Family: More than three times a week ? Attends Oriental Orthodox Services: Patient declined ? Active Member of Clubs or Organizations: Patient declined ? Attends Club or Organization Meetings: Patient declined ? Marital Status: Intimate Partner Violence: Not At Risk (04/30/2024) Received fr (more content not included)... [facility] ED Provider Note Emergency Department Encounter [facility] EMERGENCY [facility]PT Patient: Jonathon Perales : 1950 [...] the emergency department with fall out of assisted crania small injury to his head. No [...] TIME I, Dr. Fredrick Howell, am the admissions clinician of record. All diagnostic, treatment, and disposition [...] are mis-transcribed.) Fredrick Howell MD Acute Care [facility] Fredrick Howell MD 09/24/24 1437 Normal [facility] No Panel Informationon 09-24 Head: No intracranial traumatic injuries. Several remote infarcts. Cervical spine: No acute cervical spine fracture or traumatic malalignment. Report Dictated on Electronically Signed By: Rose Holcomb MD Electronically Signed Date/Time: 09/24/2024 3:23 PM [facility] Radiology Study observation (narrative) [facility] No Panel InformationOrdered By: Rose Holcomb on 09-24-2024 [facility] Work Phone: [facility]IED HEALTHon 09-15-2024 [facility] HNO ID: [id number] Author: MATY HART RT(R) Service: Radiology Author [...] PATIENT PRESENTS WITH AN IMPLANTABLE OR ATTACHED DOOR ASSEMBLER: No RADIOLOGY DEPARTMENT: CT; Exam(s) Completed: Brain and Spine PERIPHERAL IV DATA: Not applicable SIGNED BY: RT Derek(R) September 15, 2024 3:45 PM Normal [facility] CBC W Auto Differential pane l (Bld)on 09-15-2024 Basophils (Bld) [#/Vol] 0.08 10*3/uL Normal <0.11 [facility] Comment on above: Order Comment: Speci men Type: BLOOD SPECIMENOrdering Facility: [facility] Address: [address] [place] [address] Performed By: #### 5 7021-8 ####[facility] LABORATORYCLIA [id number] [place] [address] [place] Basophils/100 WBC (Bld) 1.2 % Normal A [facility] Comment on above: Order Comment: Speci men Type: BLOOD SPECIMENOrdering Facility: [facility] Address: [address] [place] [address] Performed By: #### 5 7021-8 ####[facility]ORATORYCLIA [id number] [address] STATES OF [facility] Differential cell count method Nom (Bld) Auto Normal [facility] Comment on above: Order Comment: Speci men Type: BLOOD SPECIMENOrdering Facility: [facility] Address: [address] [place] [address] Performed By: #### 5 7021-8 ####[facility] LABORATORYCLIA [id number] [address] [place] Eosinophils (Bld) [#/Vol] 0.39 10*3/uL Normal <0.46 [facility] Comment on above: Order Comment: Speci men Type: BLOOD SPECIMENOrdering Facility: [facility] Address: [address] [place] [address] Performed By: #### 5 7021-8 ####[facility] LABORATORYCLIA [id number] [address] Eosinophils/100 WBC (Bld) 5.9 % Normal [facility] Comment on above: Order Comment: Speci men Type: BLOOD SPECIMENOrdering Facility: [facility] Address: [address] [place] [address] Performed By: #### 5 7021-8 ####[facility]ORATORYCLIA [id number] [address] [place] Erythrocyte distribution width (RBC) [Ratio] 11.7 % Normal 11.5-15.0 [facility] Comment on above: Order Comment: Speci men Type: BLOOD SPECIMENOrdering Facility: [facility] Address: [address] [place] [address] Performed By: #### 5 7021-8 ####[facility]ORATORYCLIA [id number] [address] [place] Hematocrit (Bld) [Volume fraction] 41.5 % Normal 39.0-51.0 [facility] Comment on above: Order Comment: Speci men Type: BLOOD SPECIMENOrdering Facility: [facility] Address: [address] [place] [address] Performed By: #### 5 7021-8 ####[facility] LABORATORYCLIA [id number] [place] [address] [place] Hemoglobin (Bld) [Mass/Vol] 13.7 g/dL Normal 13.0-17.0 [facility] Comment on above: Order Comment: Speci men Type: BLOOD SPECIMENOrdering Facility: [facility] Address: [address] [place] [address] Performed By: #### 5 7021-8 ####[facility]ORATORYCLIA [id number] [address] [place] Immature granulocytes (Bld) [#/Vol] 0.03 10*3/uL Normal <0.10 [facility] Comment on above: Order Comment: Speci men Type: BLOOD SPECIMENOrdering Facility: [facility] Address: [address] [place] [address] Performed By: #### 5 7021-8 ####[facility]ORATORYCLIA [id number] [address] [place] Immature granulocytes/100 WBC (Bld) 0.5 % Normal [facility] Comment on above: Order Comment: Speci men Type: BLOOD SPECIMENOrdering Facility: [facility] Address: [address] [place] [address] Performed By: #### 5 7021-8 ####[facility]ORATORYCLIA [id number] [place] [address] [place] Lymphocytes (Bld) [#/Vol] 1.57 10*3/uL Normal 1.00-4.00 [facility] Comment on above: Order Comment: Speci men Type: BLOOD SPECIMENOrdering Facility: [facility] Address: [address] [place] [address] Performed By: #### 5 7021-8 ####[facility] LABORATORYCLIA [id number] [address] Lymphocytes/100 WBC (Bld) 23.9 % Normal [facility] Comment on above: Order Comment: Speci men Type: BLOOD SPECIMENOrdering Facility: [facility] Address: [address] [place] [address] Performed By: #### 5 7021-8 ####[facility]ORATORYCLIA [id number] [address] MCH (RBC) [Entitic mass] 32.4 pg Normal 26.0-34.0 [facility] Comment on above: Order Comment: Speci men Type: BLOOD SPECIMENOrdering Facility: [facility] Address: [address] [place] [address] Performed By: #### 5 7021-8 ####[facility]ORATORYCLIA [id number] [address] MCHC (RBC) [Mass/Vol] 33.0 g/dL Normal 30.5-36.0 [facility] Comment on above: Order Comment: Speci men Type: BLOOD SPECIMENOrdering Facility: [facility] Address: [address] [place] [address] Performed By: #### 5 7021-8 ####[facility]ORATORYCLIA [id number] [address] [place] MCV (RBC) [Entitic vol] 98.1 fL Normal 80.0-100.0 [facility] Comment on above: Order Comment: Speci men Type: BLOOD SPECIMENOrdering Facility: [facility] Address: [address] [place] [address] Performed By: #### 5 7021-8 ####[facility]ORATORYCLIA [id number] [address] Monocytes (Bld) [#/Vol] 0.61 10*3/uL Normal <0.87 [facility] Comment on above: Order Comment: Speci men Type: BLOOD SPECIMENOrdering Facility: [facility] Address: [address] [place] [address] Performed By: #### 5 7021-8 ####[facility] LABORATORYCLIA [id number] [address] [place] Monocytes/100 WBC (Bld) 9.3 % Normal A [facility] Comment on above: Order Comment: Speci men Type: BLOOD SPECIMENOrdering Facility: [facility] Address: [address] [place] [address] Performed By: #### 5 7021-8 ####[facility] LABORATORYCLIA [id number] [address] [place] Neutrophils (Bld) [#/Vol] 3.90 10*3/uL Normal 1.45-7.50 [facility] Comment on above: Order Comment: Speci men Type: BLOOD SPECIMENOrdering Facility: [facility] Address: [address] [place] [address] Performed By: #### 5 7021-8 ####[facility]ORATORYCLIA [id number] [address] [place] Neutrophils/100 WBC (Bld) 59.2 % Normal [facility] Comment on above: Order Comment: Speci men Type: BLOOD SPECIMENOrdering Facility: [facility] Address: [address] [place] [address] Performed By: #### 5 7021-8 ####[facility]ORATORYCLIA [id number] [place] [address] [place] Nucleated RBC (Bld) [#/Vol] 10*3/uL Normal <0.01 [facility] Comment on above: Order Comment: Speci men Type: BLOOD SPECIMENOrdering Facility: [facility] Address: [address] [place] [address] Performed By: #### 5 7021-8 ####[facility]ORATORYCLIA [id number] [place] [address] [place] Nucleated RBC/100 WBC (Bld) [Ratio] 0.0 /100 WBC Normal [facility] Comment on above: Order Comment: Speci men Type: BLOOD SPECIMENOrdering Facility: [facility] Address: [facility] [place] [address] Performed By: #### 5 7021-8 ####[facility] LABORATORYCLIA [id number] [place] [address] [place] Platelet mean volume (Bld) [Entitic vol] 9.6 fL Normal 9.0-12.7 [facility] Comment on above: Order Comment: Speci men Type: BLOOD SPECIMENOrdering Facility: [facility] Address: [address] [place] [address] Performed By: #### 5 7021-8 ####[facility]ORATORYCLIA [id number] [place] [address] [place] Platelets (Bld) [#/Vol] 219 10*3/uL Normal 150-400 [facility] Comment on above: Order Comment: Speci men Type: BLOOD SPECIMENOrdering Facility: [facility] Address: [address] [place] [address] Performed By: #### 5 7021-8 ####[facility]ORATORYCLIA [id number] [place] [address] [place] RBC (Bld) [#/Vol] 4.23 10*6/uL Normal 4.20-6.00 [facility] Comment on above: Order Comment: Speci men Type: BLOOD SPECIMENOrdering Facility: [facility] Address: [address] [place] [address] Performed By: #### 5 7021-8 ####[facility]ORATORYCLIA [id number] [place] [address] [place] WBC (Bld) [#/Vol] 6.58 10*3/uL Normal 3.70-11.00 [facility] Comment on above: Order Comment: Speci men Type: BLOOD SPECIMENOrdering Facility: [facility] Address: [address] [place] [address] Performed By: #### 5 7021-8 ####[facility] LABORATORYCLIA [id number] [place] [address] [place] [address] BRAIN WO IVCONon 09-15-[address] BRAIN WO IVCON * * *Final Report* * * DATE OF EXAM: Sep 15 2024 3:53PM [facility] 0504 - CT BRAIN WO IVCON / [...] frontal cortical infarct. Chronic cerebellar lacunar infarcts. Public Health Doctor: PSCB Transcribe Date/Time: Sep 15 2024 3:56P Dictated by : SAEED ALONZO MD This examination was interpreted and the report reviewed and electronically signed by: SAEED ALONZO MD on Sep 15 2024 4:05PM EST [id number] Normal [facility] CT CERVICAL SPINE WO IVCONon 09-15-2024 CT CERVICAL SPINE WO IVCON * * *Final Report* * * DATE OF EXAM: Sep 15 2024 3:53PM [facility] 0505 - CT CERVICAL SPINE WO IVCON [...] Counting reference: Craniocervical junction. Anatomic Variants: None. 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 Public Health Doctor: PSCB Transcribe Date/Time: Sep 15 2024 4:06P Dictated by : SAEED ALONZO MD This examination was interpreted and the report reviewed and electronically signed by: SAEED ALONZO MD on Sep 15 2024 4:10PM EST [id number] Normal [facility] Comprehensive metabolic 2000 panelon 09-15-2024 Albumin [Mass/Vol] 3.9 g/dL Normal 3.9-4.9 [facility] Comment on above: Order Comment: Speci men Type: BLOOD SPECIMENOrdering Facility: [facility] Address: [address] [place] [address] Performed By: #### 2 4323-8 ####[facility]ORATORYCLIA [id number] [place] [address] [place] ALP [Catalytic activity/Vol] 103 U/L Normal 38-113 [facility] Comment on above: Order Comment: Speci men Type: BLOOD SPECIMENOrdering Facility: [facility] Address: [address] [place] [address] Performed By: #### 2 4323-8 ####[facility]ORATORYCLIA [id number] [address] [place] ALT With P-5'-P [Catalytic activity/Vol] 13 U/L Normal 10-54 [facility] Comment on above: Order Comment: Speci men Type: BLOOD SPECIMENOrdering Facility: [facility] Address: [address] [place] [address] Performed By: #### 2 4323-8 ####[facility]ORATORYCLIA [id number] [address] STATES [facility] Anion gap [Moles/Vol] 9 mmol/L Normal 8-15 [facility] Comment on above: Order Comment: Speci men Type: BLOOD SPECIMENOrdering Facility: [facility] Address: [address] [place] [address] Performed By: #### 2 4323-8 ####[facility]ORATORYCLIA [id number] [address] [place] AST With P-5'-P [Catalytic activity/Vol] 15 U/L Normal 14-40 [facility] Comment on above: Order Comment: Speci men Type: BLOOD SPECIMENOrdering Facility: [facility] Address: [address] [place] [address] Performed By: #### 2 4323-8 ####[facility]ATORYCLIA [id number] [address] [place] Bilirubin [Mass/Vol] mg/dL Low 0.2-1.3 [facility] Comment on above: Order Comment: Speci men Type: BLOOD SPECIMENOrdering Facility: [facility] Address: [address] [place] [address] Performed By: #### 2 4323-8 ####[facility] LABORATORYCLIA [id number] [place] [address] [place] Calcium [Mass/Vol] 9.0 mg/dL Normal 8.5-10.2 [facility] Comment on above: Order Comment: Speci men Type: BLOOD SPECIMENOrdering Facility: [facility] Address: [address] [place] [address] Performed By: #### 2 4323-8 ####[facility]ORATORYCLIA [id number] [place] [address] [place] Chloride [Moles/Vol] 106 mmol/L Normal 98-107 [facility] Comment on above: Order Comment: Speci men Type: BLOOD SPECIMENOrdering Facility: [facility] Address: [address] [place] [address] Performed By: #### 2 4323-8 ####[facility]ORATORYCLIA [id number] [place] [address] [place] CO2 [Moles/Vol] 27 mmol/L Normal 22-30 [facility] Comment on above: Order Comment: Speci men Type: BLOOD SPECIMENOrdering Facility: [facility] Address: [address] [place] [address] Performed By: #### 2 4323-8 ####[facility]ORATORYCLIA [id number] [place] [address] [place] Creatinine [Mass/Vol] 1.05 mg/dL Normal 0.73-1.22 [facility] Comment on above: Order Comment: Speci men Type: BLOOD SPECIMENOrdering Facility: [facility] Address: [address] [place] [address] Performed By: #### 2 4323-8 ####[facility]ORATORYCLIA [id number] [address] [place] Creatinine and Glomerular filtration rate.predicted panel (S/P/Bld) 74 mL/min/1.73m??? Normal >=60 [facility] Comment on above: Order Comment: Lyndsey eller Type: BLOOD SPECIMENOrdering Facility: [facility] Address: [address] [place] [address] Result Comment: Bainca mated Glomerular Filtration Rate (eGFR) is calculated [...] actual GFR. Performed By: #### 2 4323-8 ####[facility] LABORATORYCLIA [id number] [place] [address] [place] Glucose [Mass/Vol] 93 mg/dL Normal 74-99 [facility] Comment on above: Order Comment: Lyndsey eller Type: BLOOD SPECIMENOrdering Facility: [facility] Address: [address] [place] [address] Result Comment: The [place] Diabetes Association (ADA) provides guidance for cutoff [...] Standards of Medical Care in Diabetes 2016, [place] Diabetes Association. Diabetes Care. 2016.39(Suppl 1). Performed By: #### 2 4323-8 ####[facility] LABORATORYCLIA [id number] [place] [address] [place] Potassium [Moles/Vol] 4.2 mmol/L Normal 3.7-5.1 [facility] Comment on above: Order Comment: Lyndsey eller Type: BLOOD SPECIMENOrdering Facility: [facility] Address: [address] [place] [address] Performed By: #### 2 4323-8 ####[facility]ORATORYCLIA [id number] [place] [address] [place] Protein [Mass/Vol] 6.3 g/dL Normal 6.3-8.0 [facility] Comment on above: Order Comment: Speci men Type: BLOOD SPECIMENOrdering Facility: [facility] Address: [address] [place] [address] Performed By: #### 2 4323-8 ####[facility] LABORATORYCLIA [id number] [place] [address] [place] Sodium [Moles/Vol] 142 mmol/L Normal 136-144 [facility] Comment on above: Order Comment: Speci men Type: BLOOD SPECIMENOrdering Facility: [facility] Address: [address] [place] [address] Performed By: #### 2 4323-8 ####[facility]ORATORYCLIA [id number] [address] [place] Urea nitrogen [Mass/Vol] 19 mg/dL Normal 9-24 [facility] Comment on above: Order Comment: Speci men Type: BLOOD SPECIMENOrdering Facility: [facility] Address: [address] [place] [address] Performed By: #### 2 4323-8 ####[facility]ORATORYCLIA [id number] [address] [place] ED NOTEon 09-15-2024 ED NOTE HNO ID: [id number] Author: LARISSA FRAIRE RN Service: Emergency Medicine Author Type: Registered Nurse Type: ED Notes Filed: 09/15/2024 20:50 Note Text: Transport called. ETA 20-125 minutes. [facility] ED NOTE HNO ID: [id number] Author: GARY SHAH, JORGE Service: ? Author Type: Registered Nurse Type: ED Notes Filed: 09/15/2024 13:08 Note Text: Bed: 45-ED Expected date: Expected time: Means of arrival: Comments: Angry at [facility] ED PROV NOTEon 09-15-2024 ED PROV NOTE HNO ID: [id number] Author: BRUNA BAILEY MD Service: Emergency Medicine [...] who presented to emergency department from the [facility] due to concerns for aggressive behavior. Patient [...] revoked. These findings were discussed with the [facility] facility, and they were agreeable to the patient returning to the facility. Patient was then discharged in stable condition from the emergency department. SIGNATURE: Cas JoseDO PATIENT NAME: Jonathon Perales DATE: September 15, 2024 TIME: 7:45 PM PAGER/CONTACT #: CAS PALOMARES 09/15/242017 BRUNA BAILEY 09/15/240 Normal [facility] ED PROV NOTE HNO ID: [id number] Author: BANDAR AMADO MD Service: Emergency Medicine Author Type: Physician Type: ED Provider Notes Filed: 10/29/2024 23:39 Note Text: ED Provider Note Patient Name: Jonathon Perales : 1950 SERVICE DATE: 09/15/24 History Patient presents with: Aggressive Behavior: Presents to ED from [facility] with staff concern of aggressive behavior. Pt was pink slipped from SNF 2/2 hitting, punching, and being aggressive with staff. Staff reports pt is refusing meds, patient states staff doesn't offer them to him. 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 Denies any CP or SOB HPI 74-year-old male presents to the ED from [facility] with staff concern for aggressive behavior. [...] is no (more content not included)... Normal [facility] Ethanol SerPl-ncon 024 Ethanol [Mass/Vol] mg/dL Normal <11 [facility] Comment on above: Order Comment: Speci men Type: BLOOD SPECIMENOrdering Facility: [facility] Address: [address] [place] [address] Performed By: #### 5 643-2 ####[facility]ATORYCLIA [id number] [address] [place] TOXICOLOGY SCREEN, ROUTINE U RINEon 09-15-2024 Amphetamines Confirm (U) [Mass/Vol] Negative Normal Negative [facility] Comment on above: Order Comment: Speci men Type: URINE SPECIMENOrdering Facility: [facility] Address: [address] [place] [place] [id number] Result Comment: Cuto ff threshold at 1000 ng/mL. Performed By: #### U TOX2 ####[facility]ATORYCLIA [id number] [place] [address] [place] BARBITURATES, URINE Negative Normal Negative [facility] Comment on above: Order Comment: Speci men Type: URINE SPECIMENOrdering Facility: [facility] Address: [address] [place] [address] Result Comment: Cuto ff threshold at 200 ng/mL. Performed By: #### U TOX2 ####[facility]ORATORYCLIA [id number] [place] [address] [place] BENZODIAZEPINES, UR Negative Normal Negative [facility] Comment on above: Order Comment: Speci men Type: URINE SPECIMENOrdering Facility: [facility] Address: [address] [place] [address] Result Comment: Cuto ff threshold at 200 ng/mL. Performed By: #### U TOX2 ####[facility]ATORYCLIA [id number] [address] Cannabinoids Screen Ql (U) Negative Normal Negative [facility] Comment on above: Order Comment: Speci men Type: URINE SPECIMENOrdering Facility: [facility] Address: [address] [place] [address] Result Comment: Cuto ff threshold at 50 ng/mL. Performed By: #### U TOX2 ####[facility]ATORYCLIA [id number] [address] [place] Cocaine Ql (U) Negative Normal Negative [facility] Comment on above: Order Comment: Speci men Type: URINE SPECIMENOrdering Facility: [facility] Address: [address] [place] [address] Result Comment: Cuto ff threshold at 300 ng/mL. Performed By: #### U TOX2 ####[facility]ORYCLIA [id number] [address] [place] Ethanol (U) [Mass/Vol] <11 Normal <11 [facility] Comment on above: Order Comment: Speci men Type: URINE SPECIMENOrdering Facility: [facility] Address: [address] [place] [address] Performed By: #### U TOX2 ####[facility]ORYCLIA [id number] [address] [place] Opiates Screen Ql (U) Negative Normal Negative [facility] Comment on above: Order Comment: Speci men Type: URINE SPECIMENOrdering Facility: [facility] Address: [address] [place] [address] Result Comment: Cuto ff threshold at 300 ng/mL. Performed By: #### U TOX2 ####[facility]ATORYCLIA [id number] [address] oxyCODONE cutoff Screen (U) [Mass/Vol] Negative Normal Negative [facility] Comment on above: Order Comment: Speci men Type: URINE SPECIMENOrdering Facility: [facility] Address: [address] [place] [address] Result Comment: Cuto ff threshold at 100 ng/mL. Performed By: #### U TOX2 ####[facility]ATORYCLIA [id number] [address] Phencyclidine Ql (U) Negative Normal Negative [facility] Comment on above: Order Comment: Speci men Type: URINE SPECIMENOrdering Facility: [facility] Address: [address] [place] [address] Result Comment: Cuto ff threshold at 25 ng/mL. Performed By: #### U TOX2 ####[facility]ATORYCLIA [id number] [address] Urinalysis complete panel (U )on 09-15-2024 Bilirubin Ql (U) Negative Normal Negative [facility] Comment on above: Order Comment: Speci men Type: URINE SPECIMENOrdering Facility: [facility] Address: [address] [place] [address] Performed By: #### 2 4356-8 ####[facility]ATORYCLIA [id number] [address] Clarity (Unsp spec) Turbid Abnormal Clear [facility] Comment on above: Order Comment: Speci men Type: URINE SPECIMENOrdering Facility: [facility] Address: [address] [place] [address] Performed By: #### 2 4356-8 ####[facility]ATORYCLIA [id number] [address] Color (U) Yellow Normal yellow [facility] Comment on above: Order Comment: Speci men Type: URINE SPECIMENOrdering Facility: [facility] Address: [address] [place] [address] Performed By: #### 2 4356-8 ####[facility]ATORYCLIA [id number] [address] [place] Epithelial cells LM.HPF (Urine sed) [#/Area] Few Abnormal None Seen [facility] Comment on above: Order Comment: Speci men Type: URINE SPECIMENOrdering Facility: [facility] Address: [address] [place] [address] Performed By: #### 2 4356-8 ####[facility]ORATORYCLIA [id number] [address] Glucose Test strip (U) [Mass/Vol] Negative Normal Trace, Negative [facility] Comment on above: Order Comment: Speci men Type: URINE SPECIMENOrdering Facility: [facility] Address: [address] [place] [address] Performed By: #### 2 4356-8 ####[facility]ATORYCLIA [id number] [place] [address] [place] [facility] Hemoglobin Ql (U) Negative Normal Negative, Trace [facility] Comment on above: Order Comment: Speci men Type: URINE SPECIMENOrdering Facility: [facility] Address: [address] [place] [address] Performed By: #### 2 4356-8 ####[facility]ATORYCLIA [id number] [place] [address] [place] Ketones Ql (U) Negative Normal Negative, Trace [facility] Comment on above: Order Comment: Speci men Type: URINE SPECIMENOrdering Facility: [facility] Address: [address] [place] [address] Performed By: #### 2 4356-8 ####[facility]ATORYCLIA [id number] [place] [address] [place] Leukocyte esterase Test strip Ql (U) Negative Normal Negative, 25 Garrick/uL [facility] Comment on above: Order Comment: Speci men Type: URINE SPECIMENOrdering Facility: [facility] Address: [address] [place] [address] Performed By: #### 2 4356-8 ####[facility]ATORYCLIA [id number] [place] [address] [place] Nitrite Ql (U) Negative Normal Negative [facility] Comment on above: Order Comment: Speci men Type: URINE SPECIMENOrdering Facility: [facility] Address: [address] [place] [address] Performed By: #### 2 4356-8 ####[facility]ATORYCLIA [id number] [address] [place] [facility] pH (U) 7.5 [pH] Normal 5.0-8.0 [facility] Comment on above: Order Comment: Speci men Type: URINE SPECIMENOrdering Facility: [facility] Address: [address] [place] [address] Performed By: #### 2 4356-8 ####[facility]ATORYCLIA [id number] [place] [address] [place] [facility] Protein (U) [Mass/Vol] Negative Normal Trace , Negative [facility] Comment on above: Order Comment: Speci men Type: URINE SPECIMENOrdering Facility: [facility] Address: [address] [place] [address] Performed By: #### 2 4356-8 ####[facility]ATORYCLIA [id number] [address] RBC LM.HPF (Urine sed) [#/Area] 0-3 /HPF Normal 0-3 /HPF [facility] Comment on above: Order Comment: Speci men Type: URINE SPECIMENOrdering Facility: [facility] Address: [address] [place] [address] Performed By: #### 2 4356-8 ####[facility]ATORYCLIA [id number] [address] [place] Specific gravity (U) [Rel density] 1.023 Normal 1.005-1.030 [facility] Comment on above: Order Comment: Speci men Type: URINE SPECIMENOrdering Facility: [facility] Address: [address] [place] [address] Performed By: #### 2 4356-8 ####[facility]ATORYCLIA [id number] [address] Urobilinogen Ql (U) Normal Normal Normal [facility] Comment on above: Order Comment: Speci men Type: URINE SPECIMENOrdering Facility: [facility] Address: [address] [place] [address] Performed By: #### 2 4356-8 ####[facility]ATORYCLIA [id number] [address] WBC LM.HPF (Urine sed) [#/Area] 0-5 /HPF Normal 0-5 /HPF [facility] Comment on above: Order Comment: Speci men Type: URINE SPECIMENOrdering Facility: [facility] Address: [address] [place] [address] Performed By: #### 2 4356-8 ####[facility]ATORYCLIA [id number] [address] Yeast.budding LM.HPF (Urine sed) [#/Area] Moderate Abnormal None Seen [facility] Comment on above: Order Comment: Speci men Type: URINE SPECIMENOrdering Facility: [facility] Address: [address] [place] [address] Performed By: #### 2 4356-8 ####[facility]ATORYCLIA [id number] [address] [place] XR CHEST 1V FRONTALon 2023 XR CHEST [...] rib fractures IMPRESSION: No acute radiographic abnormality. Public Health Doctor: PSCB Transcribe Date/Time: Sep 15 2024 2:37P Dictated by : SAEED ALONZO MD This examination was interpreted and the report reviewed and electronically signed by: SAEED ALONZO MD on Sep 15 2024 2:43PM EST [id number] Normal [facility] XR PELVIS 1V APon 09-15-2024 XR [...] seen. IMPRESSION: No acute osseous traumatic abnormality Public Health Doctor: PSCB Transcribe Date/Time: Sep 15 2024 2:36P Dictated by : SAEED ALONZO MD This examination was interpreted and the report reviewed and electronically signed by: SAEED ALONZO MD on Sep 15 2024 2:37PM EST [id number] Normal [facility] ED NOTEon 07-29-2024 ED NOTE HNO ID: [id number] Author: ERIC WALDEN RN Service: ? Author Type: Registered Nurse Type: ED Notes Filed: 07/29/2024 02:04 Note Text: Report called to nurse @assisted Normal [facility] ED PROV NOTEon 07-29-2024 ED PROV NOTE HNO ID: [id number] Author: KATIA BACA MD Service: Emergency Medicine [...] GRAFT HX SVG-OM1 EGD WITH BIOPSY(S) 03/25/2018 Moess's without dysplasia; Dr. Zazueta EGD WITH BIOPSY(S) [...] Temp Temp src Resp SpO2 Weight Height 07/28/24204007/28/24204007/28/24204007/28/24204007/28/24204307/28/242040 -- -- 132/90 65 36.5 ?C (97.7 ?F) Oral 23 98 % Physical Exam Constitutional: Appearance: Normal appearance. HENT: Head: Comments: 1 inch laceration above the right eyebrow Laceration behind the left ear Eyes: Extraocul (more content not included)... Normal [facility] CT BRAIN WO IVCONon 07-28-20 CT BRAIN WO IVCON * * *Final Report* * * DATE OF EXAM: Jul 28 2024 9:03PM [facility] 0504 - CT BRAIN WO IVCON / [...] are clear of focal consolidation or mass. Mine Car Repairer (topogram) images: Noncontributory IMPRESSION: 1. Right supraorbital scalp laceration. 2. No evidence of acute intracranial abnormality. Expected maturation of the previously seen right MCA infarct without hemorrhage or significant mass effect. 3. No evidence of acute cervical spine fracture or traumatic subluxation. 4. Additional chronic findings as detailed. Anatomic Variant: None. Assume 7 cervical vertebrae with counting from the craniocervical junction. Public Health Doctor: PSCB Transcribe Date/Time: Jul 28 2024 9:17P Dictated by : LILLI GUSTAFSON MD This examination was interpreted and the report reviewed and electronically signed by: LILLI GUSTAFSON MD on Jul 28 2024 9:34PM EST [id number] Normal [facility] CT CERVICAL SPINE WO IVCONon 07-28-2024 CT CERVICAL SPINE WO IVCON * * *Final Report* * * DATE OF EXAM: Jul 28 2024 9:03PM [facility] 0505 - CT CERVICAL SPINE WO IVCON [...] are clear of focal consolidation or mass. Mine Car Repairer (topogram) images: Noncontributory IMPRESSION: 1. Right supraorbital scalp laceration. 2. No evidence of acute intracranial abnormality. Expected maturation of the previously seen right MCA infarct without hemorrhage or significant mass effect. 3. No evidence of acute cervical spine fracture or traumatic subluxation. 4. Additional chronic findings as detailed. Anatomic Variant: None. Assume 7 cervical vertebrae with counting from the craniocervical junction. Public Health Doctor: MILTON Transcribe Date/Time: Jul 28 2024 9:17P Dictated by : LILLI GUSTAFSON MD This examination was interpreted and the report reviewed and electronically signed by: LILLI GUSTAFSON MD on Jul 28 2024 9:34PM EST [id number] Normal [facility] CT HIP WO IVCON LTon 024 CT HIP WO IVCON LT * * *Final Report* * * DATE OF EXAM: Jul 28 2024 9:07PM [facility] 0079 - CT HIP WO IVCON LT [...] Colonic diverticulosis. Atherosclerotic arterial and aortic calcifications. 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 IMPRESSION: No acute bone abnormality. Public Health Doctor: PSCB Transcribe Date/Time: Jul 28 2024 10:15P Dictated by : ROSE HUGHES MD This examination was interpreted and the report reviewed and electronically signed by: ROSE HUGHES MD on Jul 28 2024 10:19PM EST [id number] Normal [facility] ED NOTEon 07-28-2024 ED NOTE HNO ID: [id number] Author: MIRIAN BLACK RN Service: Emergency Medicine Author Type: Registered Nurse Type: ED Notes Filed: 07/28/2024 21:18 Note Text: Report given to Will RN [facility] ED NOTE HNO ID: [id number] Author: MIRIAN BLACK RN Service: Emergency Medicine Author Type: Registered Nurse Type: ED Notes Filed: 07/28/2024 21:11 Note Text: Patient to room 33 [facility] ED NOTE HNO ID: [id number] Author: BRUNA JIN RN Service: ? Author Type: Registered Nurse Type: ED Notes Filed: 07/28/2024 21:06 Note Text: Bed: [facility] Expected date: Expected time: Means of arrival: Comments: T3 after scans [facility] ED NOTE HNO ID: [id number] Author: MIRIAN BLACK RN Service: Emergency Medicine Author Type: Registered Nurse Type: ED Notes Filed: 07/28/2024 21:03 Note Text: To CT [facility] ED NOTE HNO ID: [id number] Author: KEVEN DE LA TORRE HUC Service: Emergency Medicine Author Type: Health Chemical Unit Operator Type: ED Notes Filed: 07/28/2024 20:42 Note Text: Level 3 Trauma called at 2019 [facility] ED NOTE HNO ID: [id number] Author: MIRIAN BLACK RN Service: Emergency Medicine Author Type: Registered Nurse Type: ED Notes Filed: 07/28/2024 21:04 Note Text: Resident Jannet Gayle Attending Amor Valverde RN x3 Present at bedside [facility] EKGon 07-28-2024 Electrocardiogram Ventricular Rate : 5 8 BPM Atrial Rate : 58 BPM P-R Interval : 148 ms QRS Duration : 72 ms Q-T Interval : 424 ms QTC Calculation(Bazett) : 416 ms Calculated P [place] : 62 degrees Calculated R [place] : 71 degrees Calculated T [place] : 85 degrees POOR DATA QUALITY, INTERPRETATION MAY BE ADVERSELY AFFECTED SINUS BRADYCARDIA WITH PREMATURE ATRIAL COMPLEXES SEPTAL INFARCT , AGE UNDETERMINED ABNORMAL ECG WHEN COMPARED WITH ECG OF 18-May-2024 18:18, SEPTAL INFARCT IS NOW PRESENT Confirmed by JOY PAULSON MD ([id number]) on 05/02/2025 12:11:22 AM NAME : JONATHON PERALES PID : [id number] : 1950 Gender : Male Race : ORD : Procedure Date : Jul 28 2024 21:15:41 Edit Date : May 02 2025 00:11:23 Diagnosis: POOR DATA QUALITY, INTERPRETATION MAY BE ADVERSELY AFFECTED SINUS BRADYCARDIA WITH PREMATURE ATRIAL COMPLEXES SEPTAL INFARCT , AGE UNDETERMINED ABNORMAL ECG WHEN COMPARED WITH ECG OF 18-May-2024 18:18, SEPTAL INFARCT IS NOW PRESENT Confirmed by JOY PAULSON MD ([id number]) on 05/02/2025 12:11:22 AM Test Reason : Location : 4 : [facility] Overread By : JOY PAULSON MD Edited By : JOY PAULSON MD Referred By : , Acquired by : LITO NAYAK Normal [facility] XR CHEST 1V FRONTALon 2023 XR [...] are identified. IMPRESSION: No acute radiographic abnormality. Public Health Doctor: MILTON Transcribe Date/Time: Jul 28 2024 10:25P Dictated by : ERYN MCINTYRE MD This examination was interpreted and the report reviewed and electronically signed by: ERYN MCINTYRE MD on Jul 28 2024 10:26PM EST [id number] Normal [facility] 07-14-2024 [facility] Telephone (AKPRAD) JONATHON PERALES ([id number]) 1950 M [facility] Date Time Provider Department 07/14/24 ZE STOCK During your visit today, we recorded the following information about you: Daiana Blas RN 07/14/2024 11:21 AM Signed MODIFIED STAN SCORE POST-DISCHARGE Telephone Visit Patient Name: Jonathon Perales Today's date: July 14, 2024 Date of discharge: April 30, 2024 Person giving information: Lindsay Perales. Relationship to patient: daughter. Contact information: [phone] Contact attempt: #1 Patient discharge location: Rehab Patient current location: SNF Presentation to ED or readmission after discharge: Yes. Reason- fall. ED visit for increasing needs of care. Modified Stan Score: 90 days post discharge: 4 = [...] - Fully Assessed Reason for Visit: Modified Stan Score [Other] Prescriptions as of 07/14/2024 - [...] 07/14/2024 Noted Resolved Coronary artery disease involving [place]*12/18/2016 S/P AVR (aortic valve replacement) [Z95.2] [...] to acut (more content not included)... Normal [facility] CNCOon 07-02-2024 CNCO Letter Text Normal [facility] CNPNon 07-02-2024 CNPN Telephone (AGGPCF) JONATHON PERALES ([id number]) 1950 M [facility] Date Time Provider Department 07/02/24 GARY MATUTE AGGF During your visit today, we recorded the [...] 07/02/2024 Noted Resolved Coronary artery disease involving [place] reyna*12/18/2016 S/P AVR (aortic valve replacement) [Z95.2] [...] Frailty syndrome in geriatric patient [R54] 05/19/2024 [facility] (more content not included)... [facility] ED NOTEon 06-25-2024 ED NOTE HNO ID: [id number] Author: GLENNY NOWAK RN Service: Emergency Medicine Author Type: Registered Nurse Type: ED Notes Filed: 06/25/2024 12:14 Note Text: [facility] [facility] ED NOTE HNO ID: [id number] Author: CINTIA NICHOLS, JORGE Service: ? Author Type: Registered Nurse Type: ED Notes Filed: 06/25/2024 09:05 Note Text: Bed: 31- Expected date: Expected time: Means of arrival: Comments: [facility] ED PROV NOTEon 06-25-2024 ED PROV NOTE HNO ID: [id number] Author: CARISSA SALVADOR MD Service: Emergency Medicine Author Type: Physician Type: ED Provider Notes Filed: 06/25/2024 13:32 Note Text: ED Provider Note Patient Name: Jonathon Perales : 1950 SERVICE DATE: 06/25/24 History Patient presents with: Behavioral Problem: Pt was recently removed from a assisted due to family trying to get him [...] that he pulled him out of his assisted a week ago thinking that it may [...] been attempting to get him placed at [facility] care. 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 No date: CAD (coronary artery disease) No date: Cataract No date: Cerebellar stroke (HCC) No date: CKD (chronic kidney disease) No date: CVA (cerebral vascular accident) ([facility]) No date: Depression No date: ED (erectile [...] S/P CABG (coronary artery bypass graft) Comment: G No date: Seasonal allergic rhinitis No date: Stroke (HCC) No date: TIA (transient ischemic attack) 05/06/2002: Tubular adenoma of colon No date: Vitamin B12 deficiency No date: Vitamin D deficiency PAST SURGICAL HISTORY 01/2018: CARDIAC CATH No date: CORONARY ARTERY BYPASS GRAFT HX Comment: [id number]-OM03/25/2018: EGD WITH BIOPSY(S) Comment: Moses's without dysplasia; [...] for beha (more content not included)... Normal [facility] CNPNon 06-24-2024 [facility] Telephone (AGGPCF) JONATHON PERALES ([id number]) 1950 M [facility] Date Time Provider Department 06/24/24 [facility] During your visit today, we recorded the following information about you: Liv Rutherford 06/26/2024 7:23 AM Addendum Patient's daughter, Josefina, called. She is requesting medical records be faxed to [address] [place]. Called [facility] - spoke with Dariela in admissions. [...] above. Tried to fax medical records to [facility] 6 times - would not go through. Mailed medical records to [facility] on 06/26/24. Mgraening Allergies As of [...] 06/24/2024 Noted Resolved Coronary artery disease involving [place] re[place]*12/18/2016 S/P AVR (aortic valve replacement) [Z95.2] [...] of T7 vertebr*01/05/2021 PAD (peripheral artery disease) ([facility]) [I73.9] 03/23/2021 Left leg claudication ([facility]) [I73.9] 03/23/2021 Open nondisplaced fracture of distal [...] JAIRO (obst (more content not included)... Normal [facility] CNPNon 06-17-2024 [facility]NP[facility] Telephone (AGGPCF) JONATHON PERALES ([id number]) 1950 M [facility] Date Time Provider Department 06/17/24 GIORGIO FER[facility]NDEZ [facility] During your visit today, we recorded the following information about you: Alona Velasquez 06/17/2024 2:37 PM Signed Order for [facility] has been faxed to [facility] at [phone] Thank you Alona Santos 06/18/2024 10:21 AM Signed I received this referral back, unfortunately [facility] can not take patient d/t his insurance. Sending it out to [place] [id number] P) [phone] F) [phone] Thanks Alona Santos 06/18/2024 1:56 PM Signed Phone call received from [facility], they also are unable to accept patient, as they do not take his insurance Faxing to [facility] F) [phone] Alona Velasquez [facility] Allergies As of Date: 06/17/2024 Noted Allergy Reaction PERCOCET (OXYCODONE-ACETAMINOPH EN)02/24/2018 1 - Mental Status Change Comments: HALLUCINATIONS Date Reviewed: 06/15/2024 Reviewed by: Tanya Richter MA - Fully Assessed Reason for Visit: Home Health Orders [Other] Cmt: [facility] Prescriptions as of 06/18/2024 - metoprolol tartrate, [...] 06/17/2024 Noted Resolved Coronary artery disease involving [place] reyna*12/18/2016 S/P AVR (aortic valve replacement) [Z95.2] [...] of T7 vertebr*01/05/2021 PAD (peripheral artery disease) ([facility]) [I73.9] 03/23/2021 Left leg claudication ([facility]) [I73.9] 03/23/2021 Open nondisplaced fracture of distal [...] [N18.31] 09/19/2023 Acute ischemic right MCA stroke ([facility]) [I63.511] 04/16/2024 On mechanically assisted ventilation (HCC) [Z99*04/16/2024 Left hemiplegia (HCC) [G81.94] 04/16/2024 Facial droop due to acute cerebrovascular accid*04/16/2024 Aphasia [R47.01] 04/16/2024 Primary hypertension [I10] 04/16/2024 Mixed hyperlipidemia [E78.2] 04/16/2024 History of aortic valve replacement [Z95.2] 04/16/2024 JAIRO (obstructive sleep apnea) [G47.33] 04/16/2024 Acute respiratory failure (HCC) [J9 (more content not included)... Normal [facility] CNOVon 06-15-2024 CNOV Office Visit (AGGPCF ) JONATHON PERALES ([id number]) 1950 M T Date Time Provider Department 06/15/24 4:00 PM GIORGIO FERNANDEZ [facility] During your visit today, we recorded the following information about you: Temperature Pulse Blood pressure Height 98.1 degrees 87/minute 122/82 1.651 m Giorgio Fernandez DO 06/18/2024 10:50 AM Signed Giorgio Fernandez DO [facility] [address], [address] [place] [address] Date of Evaluation: 06/18/2024 Patient Name: Jonathon [...] to a rehab facility he was at [facility] for a while and has had significant improvement in the weakness and paralysis in his left side. He is moving his left leg better the left arm is still very weak can barely raise. Has no ground worker in the left hand. Speech is better [...] fx'd Lt ribs. He was at the residential facility when he fell. 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 No date: CAD (coronary artery disease) No date: Cataract No date: Cerebellar stroke ([facility]) No date: CKD (chronic kidney disease) No date: CVA (cerebral vascular accident) ([facility]) No date: Depression No date: ED (erectile [...] S/P CABG (coronary artery bypass graft) Comment: SVG No date: Seasonal allergic rhinitis No date: Stroke (HCC) No date: TIA (transient ischemic attack) 05/06/2002: Tubular adenoma of colon No date: Vitamin B12 deficiency No date: Vitamin D deficiency PAST SURGICAL HISTORY 01/2018: CARDIAC CATH No date: CORONARY ARTERY BYPASS GRAFT HX Comment: SVGOM03/25/2018: EGD WITH BIOPSY(S) Comment: 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 Zazueta 01/13/2013: EGD WITH BIOPSY(S) Comment: Dr. Zazueta 12/08/2018: EGD WITH BIOPSY(S) Comment: hiatal hernia; 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 Zazueta 02/21/2021: EGD WITH BIOPSY(S) Comment: Moses' (more content not included)... Normal [facility] CBC W Auto Differential pane l (Bld)on 05-28-2024 Basophils (Bld) [#/Vol] 0.1 10*3/uL 0.0 - 0.2 10*3/uL [facility] Basophils/100 WBC (Bld) 1.5 % 0.0 - 2.0 % [facility] Eosinophils (Bld) [#/Vol] 0.4 10*3/uL 0.0 - 0.5 10*3/uL [facility] Eosinophils/100 WBC (Bld) 7.1 % High 0.0 - 6.0 % [facility] Erythrocyte distribution width (RBC) [Ratio] 13.0 % 11.5 - 15.0 % [facility] Hematocrit (Bld) [Volume fraction] 39.2 % Low 40.0 - 52.0 % [facility] Hemoglobin (Bld) [Mass/Vol] 13.5 g/dL 13.0 - 18.0 g/dL [facility] Immature granulocytes (Bld) [#/Vol] 0.0 10*3/uL NINF - 0.1 10*3/uL [facility] Immature granulocytes/100 WBC (Bld) 0.2 % 0.0 - 2.0 % [facility] Interpretation and review of laboratory results Abnormal [facility] Lymphocytes (Bld) [#/Vol] 1.3 10*3/uL 1.0 - 4.3 10*3/uL [facility] Lymphocytes/100 WBC (Bld) 21.5 % 15.0 - 45.0 % [facility] MCH (RBC) [Entitic mass] 34.6 pg High 26.0 - 34.0 pg [facility] MCHC (RBC) [Mass/Vol] 34.4 % 30.5 - 36.0 % [facility] MCV (RBC) [Entitic vol] 100.5 fL High 77.0 - 99.0 fL [facility] Monocytes (Bld) [#/Vol] 0.4 10*3/uL 0.0 - 0.9 10*3/uL [facility] Monocytes/100 WBC (Bld) 6.6 % 5.0 - 13.0 % [facility] Neutrophils (Bld) [#/Vol] 3.7 10*3/uL 1.8 - 7.5 10*3/uL [facility] Neutrophils/100 WBC (Bld) 63.1 % 38.0 - 82.0 % [facility] Nucleated RBC/100 WBC (Bld) [Ratio] 0.0 % [facility] Platelet mean volume (Bld) [Entitic vol] 9.0 fL 9.0 - 12.7 fL [facility] Comment on above: MPV is a calculated measurement using platelet volume ratio Platelets (Bld) [#/Vol] 447 10*3/uL High 140 - 440 10*3/uL [facility] RBC (Bld) [#/Vol] 3.90 10*6/uL Low 4.40 - 5.9 0 10*6/uL [facility] WBC (Bld) [#/Vol] 5.9 10*3/uL 3.6 - 10.7 10*3/uL [facility] CBC WITH AUTO DIFFERENTIALon 05-28-2024 Basophils (Bld) [#/Vol] 0.1 10*3/uL Normal 0.0-0.2 [facility] Comment on above: Performed By: #### L [id number] ####Public Administration Professor: ERIKA SAVAGE ([id number])[facility] [place] [address] [place] Basophils/100 WBC (Bld) 1.5 % Normal 0.0-2.0 [facility] Comment on above: Performed By: #### L [id number] ####Public Administration Professor: ERIKA SAVAGE ([id number])[facility] ([facility])[address] [place] [address] Eosinophils (Bld) [#/Vol] 0.4 10*3/uL Normal 0.0-0.5 [facility] Comment on above: Performed By: #### L [id number] ####Public Administration Professor: ERIKA SAVAGE ([id number])[facility] ([facility])[address] [place] [address] Eosinophils/100 WBC (Bld) 7.1 % High 0.0-6.0 [facility] Comment on above: Performed By: #### L [id number] ####Public Administration Professor: ERIKA SAVAGE ([id number])[facility] ([facility])[address] [place] [address] Erythrocyte distribution width (RBC) [Ratio] 13.0 % Normal 11.5-15.0 [facility] Comment on above: Performed By: #### L [id number] ####Public Administration Professor: ERIKA SAVAGE ([id number])[facility] ([facility])[address] [place] [address] Hematocrit (Bld) [Volume fraction] 39.2 % Low 40.0-52.0 [facility] Comment on above: Performed By: #### L [id number] ####Public Administration Professor: ERIKA SAVAGE ([id number])[facility] ([facility])[address] [place] [address] Hemoglobin (Bld) [Mass/Vol] 13.5 g/dL Normal 13.0-18.0 [facility] Comment on above: Performed By: #### L [id number] ####Public Administration Professor: ERIKA SAVAGE ([id number])[facility] ([facility])[address] [place] [address] IMMATURE GRANS % 0.2 % Normal 0.0-2.0 [facility] Comment on above: Performed By: #### L [id number] ####Public Administration Professor: ERIKA SAVAGE ([id number])[facility] ([facility])[address] [place] [address] IMMATURE GRANS ABSOLUTE 0.0 10*3/uL Normal <0.1 [facility] Comment on above: Performed By: #### L [id number] ####Public Administration Professor: ERIKA SAVAGE ([id number])[facility] ([facility])[address] [place] [address] Lymphocytes (Bld) [#/Vol] 1.3 10*3/uL Normal 1.0-4.3 [facility] Comment on above: Performed By: #### L [id number] ####Public Administration Professor: ERIKA SAVAGE ([id number])[facility])[address] [place] [address] Lymphocytes/100 WBC (Bld) 21.5 % Normal 15.0-45.0 [facility] Comment on above: Performed By: #### L [id number] ####Public Administration Professor: ERIKA SAVAGE ([id number])[facility] ([facility])[address] [place] [address] MCH (RBC) [Entitic mass] 34.6 pg High 26.0-34.0 [facility] Comment on above: Performed By: #### L [id number] ####Public Administration Professor: ERIKA SAVAGE ([id number])[facility] [place] [address] MCHC 34.4 % Normal 30.5-36.0 [facility] Comment on above: Performed By: #### L [id number] ####Public Administration Professor: ERIKA SAVAGE ([id number])[facility])[address] [place] [address] [place] MCV (RBC) [Entitic vol] 100.5 fL High 77.0-99.0 [facility] Comment on above: Performed By: #### L [id number] ####Public Administration Professor: ERIKA SAVAGE ([id number])[facility] ([facility])[address] [place] [address] Monocytes (Bld) [#/Vol] 0.4 10*3/uL Normal 0.0-0.9 [facility] Comment on above: Performed By: #### L [id number] ####Public Administration Professor: ERIKA SAVAGE ([id number])[facility])[address] [place] [address] [place] Monocytes/100 WBC (Bld) 6.6 % Normal 5.0-13.0 [facility] Comment on above: Performed By: #### L [id number] ####Public Administration Professor: ERIKA SAVAGE ([id number])[facility])[address] [place] [address] [place] NEUTROPHILS ABSOLUTE 3.7 10*3/uL Normal 1.8-7.5 [facility] Comment on above: Performed By: #### L [id number] ####Public Administration Professor: ERIKA SAVAGE ([id number])[facility])[address] [place] [address] [place] Neutrophils/100 WBC (Bld) 63.1 % Normal 38.0-82.0 [facility] Comment on above: Performed By: #### L [id number] ####Public Administration Professor: ERIKA SAVAGE ([id number])[facility])[address] [place] [address] [place] NRBC 0.0 /100 WBCs Normal 0.0-2.0 [facility] Comment on above: Performed By: #### L [id number] ####Public Administration Professor: ERIKA SAVAGE ([id number])[facility])[address] [place] [address] Platelet mean volume (Bld) [Entitic vol] 9.0 fL Normal 9.0-12.7 [facility] Comment on above: Result Comment: MPV is a calculated measurement using platelet volume ratio Performed By: #### L [id number] ####Public Administration Professor: ERIKA SAVAGE ([id number])[facility] ([facility])[address] [place] [address] Platelets (Bld) [#/Vol] 447 10*3/uL High 140-440 [facility] Comment on above: Performed By: #### L [id number] ####Public Administration Professor: ERIKA SAVAGE ([id number])[facility])[address] [place] [address] RBC (Bld) [#/Vol] 3.90 10*6/uL Low 4.40-5.90 [facility] Comment on above: Performed By: #### L [id number] ####Public Administration Professor: ERIKA SAVAGE ([id number])[facility])[address] [place] [address] WBC (Bld) [#/Vol] 5.9 10*3/uL Normal 3.6-10.7 [facility] Comment on above: Performed By: #### L [id number] ####Public Administration Professor: ERIKA SAVAGE ([id number])[facility])[address] [place] [address] COMPREHENSIVE METABOLIC PANE Xander 05-28-2024 Albumin [Mass/Vol] 3.9 g/dL Normal 3.5-5.0 [facility] Comment on above: Performed By: #### L AB17, [id number] ####Public Administration Professor: ERIKA SAVAGE ([id number])[facility] ([facility])[address] [place] [address] [place] ALP [Catalytic activity/Vol] 478 U/L High 38-126 [facility] Comment on above: Performed By: #### Eriberto ADAMS, [id number] ####Public Administration Professor: ERIKA SAVAGE ([id number])[facility])[address] [place] [address] [place] ALT [Catalytic activity/Vol] 47 U/L Normal 0-49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 Performed By: #### 5 8410-2 ####[facility] LABORATORYCLIA [id number] [place] [address] [place] Platelets (Bld) [#/Vol] 282 10*3/uL Normal 150-400 [facility] Comment on above: Order Comment: Speci men Type: BLOOD SPECIMENOrdering Facility: [facility] Address: [address] [place] [address] Performed By: #### 5 8410-2 ####[facility] LABORATORYCLIA [id number] [place] [address] [place] RBC (Bld) [#/Vol] 3.04 10*6/uL Low 4.20-6.00 [facility] Comment on above: Order Comment: Speci men Type: BLOOD SPECIMENOrdering Facility: [facility] Address: [address] [place] [address] Performed By: #### 5 8410-2 ####[facility] LABORATORYCLIA [id number] [place] [address] [place] WBC (Bld) [#/Vol] 5.43 10*3/uL Normal 3.70-11.00 [facility] Comment on above: Order Comment: Speci men Type: BLOOD SPECIMENOrdering Facility: [facility] Address: [address] [place] [address] Performed By: #### 5 8410-2 ####[facility] LABORATORYCLIA [id number] [place] [address] [place] CONSULTon 05-19-2024 CONSULT HNO ID: [id number] Author: DORON KING PA Service: Geriatrics Author Type: Physician Inventory Audit Clerk Type: Consults Filed: 05/19/2024 13:00 Note Text: GERIATRIC MEDICINE CONSULT NOTE SERVICE DATE: 05/19/2024 SERVICE TIME: 9:00 AM [id number][facility] 7-* REASON FOR CONSULT: gsv, 74 y/o [...] [facility]. Slipped and fell, was noted to have facial droop, L sided weakness and difficulty speaking by EMS, Telestroke evaluation, was brought to [facility] as a trauma level 2. Imaging revealed acute nondisplaced anterior left 6th, displaced anterior left 7th at the chondral region, and subacute left anterior 8th-10th rib fractures. Was admitted under trauma to [facility]. Medicine consulted for medical management. Neuro stroke [...] AANDO X2-3 since stroke. Was not at [facility] to really see if his mentation was getting better or not. Endorses vision impairment, wears glasses. Denies BURNS PAIUTE. Now living at [facility], spouse is there so they are able to spend a lot of time together. Daughter denies any safety concerns at [facility], states her mom is getting really [...] Spouse is still living but resident at [facility] and had craniotomy. PCP: Daughter would [...] Garcia F COLONOSCOPY WITH POLYPECTOMY 12/08/2018 tubular roxanna (more content not included)... Normal [facility] NURSING PROGon 05-19-2024 NURSING PROG HNO ID: [id number] Author: VELIA GROSS RN Service: ? Author Type: Registered Nurse Type: Nursing Progress Note Filed: 05/19/2024 14:39 Note Text: CASE MANAGEMENT HOME OXYGEN EVALUATION SERVICE DATE: 05/19/2024 Patient Location: [place] [address] [address] 7-* SERVICE TIME: 1400 Assessment: Patient's SPO2 on room air at rest is 86%. Heart rate 111. Patient's SPO2 on room air with exercise is 74%. Heart rate 167. Patient's SPO2 on 5 L/min O2 with exercise is 93%. Heart rate 152. SIGNATURE: Velia Gross RN PATIENT NAME: Jonathon Perales DATE: May 19, 2024 TIME: 2:36 PM PAGER/CONTACT #: Normal [facility] NURSING PROG HNO ID: [id number] Author: JARED ALMAZAN RN Service: ? Author Type: Registered Nurse Type: Nursing Progress Note Filed: 05/19/2024 21:22 Note Text: Pt BP 183/76 MAP of 112. Paged #[phone] still covering for overnight and notified. Resident predator control trapper placed RN on hold, stated that she would call me back after asking her chief about orders. RN was never heard back. [phone]: still have not heard back from resident, RN attempted to reach #[phone] to notify of BP and request orders. RN never received a call back. Day shift RN updated on situation. Normal [facility] POTASSIUMon 05-19-2024 Potassium [Moles/Vol] 4.2 mmol/L Normal 3.7-5.1 [facility] Comment on above: Order Comment: Speci men Type: BLOOD SPECIMENOrdering Facility: [facility] Address: [place] [id number] Performed By: #### K 1, 30384-8 ####[facility] LABORATORYCLIA [id number] [place] [address] [facility] THERAPY NTon 05-19-2024 THERAPY NT HNO ID: [id number] Author: DAIANA SEGURA, OTR/L Service: Occupational Therapy Author Type: Occupational Therapist Type: Therapy (PT/OT/Speech/Resp) Filed: 05/19/2024 12:04 Note Text: Occupational Therapy Evaluation Summary SERVICE DATE: 05/19/2024 SERVICE TIME: 0950 to 1020 ROOM: [place] [address] OT 6 Clicks Score: 15 DISCHARGE RECOMMENDATIONS [...] (had large stroke 04/2024 and was at [facility] and then transitioned to SNF), tele medicine [...] living (ADL) TREATMENT INTERVENTIONS Evaluation, Therapeutic Activity (36460) Timed Code Treatment (minutes): 10 Skilled Treatment Time (minutes): 25 $ Evaluation - Moderate (52053) Billed Units: 1 unit Therapeutic Activity (51003) Treatment Minutes: 10 $ Therapeutic Activity (43759) Billed Units: 1 unit TRAINING AND EDUCATION PROVIDED Assistive Device Use, Bed Mobility, Benefits of In-Hospital Mobility, Cognitive Skills, Command Following, Discharge Planning, Disease Specific Education, Expected Functional Level, Functional Mobility Involving ADLs, Lower Extremity Dressing, Role of Occupational Therapy, Positioning, Sitting Balance to Improve [place] with ADLs/Self-Care, Standing Balance to Improve [place] with ADLs/Self-Care, Transfer - Bed to Chair, [...] Provided assi (more content not included)... Normal [facility] THERAPY NT HNO ID: [id number] Author: FARIHA HUERTA CCC-WARP KNITTER Service: Speech/Swallow Author Type: Speech Language Pathologist Type: Therapy (PT/OT/Speech/Resp) Filed: 05/19/2024 11:16 Note Text: Speech Therapy Treatment SERVICE DATE: 05/19/2024 SERVICE TIME: 1045 to 1100 ROOM: [id number] IMPRESSION: Swallow Deficits Identified / Suspected: Oropharyngeal dysphagia Diet Recommendations: Minced and Moist IDDSI Level 5 Mildly Thick Liquids IDDSI Level 2 ([place] Thick) Medications whole in puree (pudding/applesauce) Swallowing [...] 5, Mildly Thick Liquids IDDSI Level 2 ([place] Thick) Current Level Of Communication: Verbal Current [...] 0, Mildly Thick Liquids IDDSI Level 2 ([place] Thick), Pureed IDDSI Level 4, Minced and Moist IDDSI Level 5 Compensatory Strategies Utilized During Assessment: Alternate bites and sips, Check oral cavity for remaining food, Feed / Eat at a slow rate, Sit upright 90 degrees for all PO, Small Bite/Sip, Supervision/Assistance for meals. Previous Swallow Study: MBS (05/13/24 level 5/mildly thick) -Patient alert, up in chair on WARP KNITTER arrival, agreeable to therapy -RN concern re [...] tolerate Mildly Thick Liquids IDDSI Level 2 ([place] Thick) consistency while utilizing compensatory/swallowin g strategies [...] Toward Goals: (more content not included)... Normal [facility] XR CHEST 2V FRONTAL/LATon XR CHEST [...] studies available. RESULT: Lines, tubes, and devices: residential monitor leads overlie the thorax. Lungs and pleura: No pneumothorax, pleural effusion or consolidation. Cardiomediastinal silhouette: Normal cardiomediastinal silhouette. Bones and soft tissues: Sternal fixation hardware. IMPRESSION: No acute radiographic abnormality. Public Health Doctor: PSCRenato Transcribe Date/Time: May 19 2024 9:25A Dictated by : FREDRICK GONZALEZ MD This examination was interpreted and the report reviewed and electronically signed by: FREDRICK GONZALEZ MD on May 19 2024 9:26AM EST [id number] Normal [facility] ALLIED HEALTHon 05-18-2024 ALLIED HEALTH HNO ID: [id number] Author: MAXINE ARCHER RT(R) Service: ? Author Type: Real Estate Operations Manager Type: Allied Health Filed: 05/18/2024 18:47 Note [...] PATIENT PRESENTS WITH AN IMPLANTABLE OR ATTACHED DOOR ASSEMBLER: No RADIOLOGY DEPARTMENT: CT; Exam(s) Completed: Brain PERIPHERAL IV DATA: Inpatient: see LDA documentation SIGNED BY: RT Luisana(R) May 18, 2024 6:47 PM Normal [facility] ALLIED HEALTH HNO ID: [id number] Author: SANDIE COE Chaplain Service: ? Author Type: Visitor Services Specialist Type: Allied Health Filed: 05/18/2024 09:50 Note Text: SPIRITUAL CARE PROGRESS NOTE SERVICE DATE: 05/18/2024 SERVICE TIME: 8:30 AM Visitor Services Specialist attended patient as referred for emotional support but patient was busy with another provider at time of visit. Visitor Services Specialist was a silent, supportive presence. Visitor Services Specialist(s) will follow as circumstances. To contact the Spiritual Care Department: Please call [phone]. SIGNATURE: Chaplain David PATIENT NAME: Jonathon Perales DATE: May 18, 2024 TIME: 9:49 AM PAGER/CONTACT #: [phone] Normal [facility] CBC panel Auto (Bld)on 05-18 Erythrocyte distribution width (RBC) [Ratio] 13.2 % Normal 11.5-15.0 [facility] Comment on above: Order Comment: Speci men Type: BLOOD SPECIMENOrdering Facility: [facility] Address: [address] [place] [address] Performed By: #### 5 8410-2 ####[facility] LABORATORYCLIA [id number] [address] [place] Hematocrit (Bld) [Volume fraction] 35.7 % Low 39.0-51.0 [facility] Comment on above: Order Comment: Speci men Type: BLOOD SPECIMENOrdering Facility: [facility] Address: [address] [place] [address] Performed By: #### 5 8410-2 ####[facility] LABORATORYCLIA [id number] [place] [address] [place] Hemoglobin (Bld) [Mass/Vol] 11.9 g/dL Low 13.0-17.0 [facility] Comment on above: Order Comment: Speci men Type: BLOOD SPECIMENOrdering Facility: [facility] Address: [address] [place] [address] Performed By: #### 5 8410-2 ####[facility] LABORATORYCLIA [id number] [address] MCH (RBC) [Entitic mass] 34.9 pg High 26.0-34.0 [facility] Comment on above: Order Comment: Speci men Type: BLOOD SPECIMENOrdering Facility: [facility] Address: [address] [place] [address] Performed By: #### 5 8410-2 ####[facility] LABORATORYCLIA [id number] [address] MCHC (RBC) [Mass/Vol] 33.3 g/dL Normal 30.5-36.0 [facility] Comment on above: Order Comment: Speci men Type: BLOOD SPECIMENOrdering Facility: [facility] Address: [address] [place] [address] Performed By: #### 5 8410-2 ####[facility] LABORATORYCLIA [id number] [address] MCV (RBC) [Entitic vol] 104.7 fL High 80.0-100.0 [facility] Comment on above: Order Comment: Speci men Type: BLOOD SPECIMENOrdering Facility: [facility] Address: [address] [place] [address] Performed By: #### 5 8410-2 ####[facility] LABORATORYCLIA [id number] [address] Nucleated RBC (Bld) [#/Vol] 10*3/uL Normal <0.01 [facility] Comment on above: Order Comment: Speci men Type: BLOOD SPECIMENOrdering Facility: [facility] Address: [address] [place] [address] Performed By: #### 5 8410-2 ####[facility] LABORATORYCLIA [id number] [address] [facility] Platelet mean volume (Bld) [Entitic vol] 9.8 fL Normal 9.0-12.7 [facility] Comment on above: Order Comment: Speci men Type: BLOOD SPECIMENOrdering Facility: [facility] Address: [address] [place] [address] Performed By: #### 5 8410-2 ####[facility]DAVID [facility] LABORATORYCLIA [id number] [address] [place] [facility] Platelets (Bld) [#/Vol] 339 10*3/uL Normal 150-400 [facility] Comment on above: Order Comment: Speci men Type: BLOOD SPECIMENOrdering Facility: [facility] Address: [address] [place] [address] Performed By: #### 5 8410-2 ####[facility]ORATORYCLIA [id number] [address] [place] RBC (Bld) [#/Vol] 3.41 10*6/uL Low 4.20-6.00 [facility] Comment on above: Order Comment: Speci men Type: BLOOD SPECIMENOrdering Facility: [facility] Address: [address] [place] [address] Performed By: #### 5 8410-2 ####[facility]ORATORYCLIA [id number] [address] [facility] WBC (Bld) [#/Vol] 7.63 10*3/uL Normal 3.70-11.00 [facility] Comment on above: Order Comment: Speci men Type: BLOOD SPECIMENOrdering Facility: [facility] Address: [address] [place] [address] Performed By: #### 5 8410-2 ####[facility]ORATORYCLIA [id number] [address] [place] [facility] Erythrocyte distribution width (RBC) [Ratio] 13.2 % Normal 11.5-15.0 [facility] Comment on above: Order Comment: Speci men Type: BLOOD SPECIMENOrdering Facility: [facility] Address: [address] [place] [address] Performed By: #### 5 8410-2 ####[facility]ORATORYCLIA [id number] [address] [facility] Hematocrit (Bld) [Volume fraction] 39.2 % Normal 39.0-51.0 [facility] Comment on above: Order Comment: Speci men Type: BLOOD SPECIMENOrdering Facility: [facility] Address: [address] [place] [address] Performed By: #### 5 8410-2 ####[facility] LABORATORYCLIA [id number] [address] [facility] Hemoglobin (Bld) [Mass/Vol] 12.9 g/dL Low 13.0-17.0 [facility] Comment on above: Order Comment: Speci men Type: BLOOD SPECIMENOrdering Facility: [facility] Address: [address] [place] [address] Performed By: #### 5 8410-2 ####[facility]ORATORYCLIA [id number] [address] [place] [facility] MCH (RBC) [Entitic mass] 34.9 pg High 26.0-34.0 [facility] Comment on above: Order Comment: Speci men Type: BLOOD SPECIMENOrdering Facility: [facility] Address: [address] [place] [address] Performed By: #### 5 8410-2 ####[facility]ORATORYCLIA [id number] [address] [place] MCHC (RBC) [Mass/Vol] 32.9 g/dL Normal 30.5-36.0 [facility] Comment on above: Order Comment: Speci men Type: BLOOD SPECIMENOrdering Facility: [facility] Address: [address] [place] [address] Performed By: #### 5 8410-2 ####[facility]ORATORYCLIA [id number] [address] MCV (RBC) [Entitic vol] 105.9 fL High 80.0-100.0 [facility] Comment on above: Order Comment: Speci men Type: BLOOD SPECIMENOrdering Facility: [facility] Address: [address] [place] [address] Performed By: #### 5 8410-2 ####[facility]ORATORYCLIA [id number] [address] [place] Nucleated RBC (Bld) [#/Vol] 10*3/uL Normal <0.01 [facility] Comment on above: Order Comment: Speci men Type: BLOOD SPECIMENOrdering Facility: [facility] Address: [address] [place] [address] Performed By: #### 5 8410-2 ####[facility]ORATORYCLIA [id number] [address] [place] Platelet mean volume (Bld) [Entitic vol] 9.9 fL Normal 9.0-12.7 [facility] Comment on above: Order Comment: Speci men Type: BLOOD SPECIMENOrdering Facility: [facility] Address: [address] [place] [address] Performed By: #### 5 8410-2 ####[facility]ORATORYCLIA [id number] [address] [place] Platelets (Bld) [#/Vol] 369 10*3/uL Normal 150-400 [facility] Comment on above: Order Comment: Speci men Type: BLOOD SPECIMENOrdering Facility: [facility] Address: [address] [place] [address] Performed By: #### 5 8410-2 ####[facility]ORATORYCLIA [id number] [address] [place] RBC (Bld) [#/Vol] 3.70 10*6/uL Low 4.20-6.00 [facility] Comment on above: Order Comment: Speci men Type: BLOOD SPECIMENOrdering Facility: [facility] Address: [address] [place] [address] Performed By: #### 5 8410-2 ####[facility]ORATORYCLIA [id number] [address] [place] WBC (Bld) [#/Vol] 7.49 10*3/uL Normal 3.70-11.00 [facility] Comment on above: Order Comment: Speci men Type: BLOOD SPECIMENOrdering Facility: [facility] Address: [address] [place] [id number] Performed By: #### 5 8410-2 ####[facility] LABORATORYCLIA [id number] [place] [address] [place] CONSULTon 05-18-2024 CONSULT HNO ID: [id number] Author: ALENA STUBBS MD, PhD Service: Neurology [...] Disp: , (more content not included)... Normal [facility] CONSULT HNO ID: [id number] Author: KILEY DIMAS DO Service: Hospital Medicine Author Type: Physician Type: Consults Filed: 05/18/2024 16:20 Note Text: DEPARTMENT OF HOSPITAL MEDICINE INITIAL CONSULT SERVICE DATE: 05/18/2024 SERVICE TIME: 3:20 PM Primary Care Physician: Giorgio Fernandez DO NIGHT AND WEEKEND COVERAGE: [place] COVERAGE: After 7pm, please call cross cover pager #[phone] REASON FOR CONSULT: medical management REQUESTING PHYSICIAN: [...] taking: Re (more content not included)... Normal [facility] CT ABD/PEL W IVCONon 024 CT ABD/PEL W IVCON * * *Final Report* * * DATE OF EXAM: May 18 2024 8:37AM [facility] 0530 - CT ABD/PEL W IVCON / [...] arteries bila (more content not included)... Normal [facility] CT BRAIN ATTACK WO IVCONon 0 05-18-2024 CT BRAIN ATTACK WO IVCON * * *Final Report* * * DATE OF EXAM: May 18 2024 8:22AM [facility] 0502 - CT BRAIN ATTACK WO IVCON [...] Gentile on 05/18/2024 8:38 AM . CR_1 Public Health Doctor: MILTON Transcribe Date/Time: May 18 2024 8:27A Dictated by : LISA CASTANEDA MD This examination was interpreted and the report reviewed and electronically signed by: LISA CASTANEDA MD on May 18 2024 8:42AM EST [id number] CRITICAL!! Invalid Interpretation Code [facility] CT BRAIN WO IVCONon 05-18-[address] BRAIN WO IVCON * * *Final Report* * * DATE OF EXAM: May 18 2024 6:47PM [facility] 0504 - CT BRAIN WO IVCON / [...] No space occupying hematoma. No new infarcts. Public Health Doctor: MILTON Transcribe Date/Time: May 18 2024 7:15P Dictated by : EVELIO GEORGE MD This examination was interpreted and the report reviewed and electronically signed by: EVELIO GEORGE MD on May 18 2024 7:21PM EST [id number] Normal [facility] CT C-SPINE W RECON DATA -NBo n 05-18-2024 CT C-SPINE W RECON DATA -NB * * *Final Report* * * DATE OF EXAM: May 18 2024 8:39AM [facility] 0478 - CT C-SPINE W RECON DATA [...] Counting reference: Craniocervical junction. Anatomic Variants: None. 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 Alignment: Alignment [...] vertebrae with counting from the craniocervical junction. Public Health Doctor: MILTON Transcribe Date/Time: May 18 2024 9:21A Dictated by : DEEPAK MONTERROSO MD This examination was interpreted and the report reviewed and electronically signed by: DEEPAK MONTERROSO MD on May 18 2024 9:26AM EST [id number] Normal [facility] CT CHEST W IVCONon 4 CT CHEST W IVCON * * *Final Report* * * DATE OF EXAM: May 18 2024 8:37AM [facility] 0539 - CT CHEST W IVCON / [...] arteries bilaterall (more content not included)... Normal [facility] CT FACIAL BONE/NORMA WO IVCON on 05-18-2024 CT FACIAL BONE/NORMA WO IVCON * * *Final Report* * * DATE OF EXAM: May 18 2024 9:34AM [facility] 0507 - CT FACIAL BONE/NORMA WO IVCON [...] in a patient that was previously intubated. Public Health Doctor: PSCB Transcribe Date/Time: May 18 2024 9:56A Dictated by : LISA CASTANEDA MD This examination was interpreted and the report reviewed and electronically signed by: LISA CASTANEDA MD on May 18 2024 10:15AM EST [id number] Normal [facility] CT LUMBAR SPINE W RECON DATA -NBon 05-18-2024 CT LUMBAR SPINE W RECON DATA -NB * * *Final Report* * * DATE OF EXAM: May 18 2024 8:37AM [facility] 0481 - CT LUMBAR SPINE W RECON [...] the common (more content not included)... Normal [facility] CT T-SPINE W RECON DATA -NBo n 05-18-2024 CT T-SPINE W RECON DATA -NB * * *Final Report* * * DATE OF EXAM: May 18 2024 8:37AM [facility] 0485 - CT T-SPINE W RECON DATA [...] the common (more content not included)... Normal [facility] CTA HEAD W IVCONon CTA HEAD W IVCON * * *Final Report* * * DATE OF EXAM: May 18 2024 8:37AM [facility] 0022 - CTA HEAD W IVCON / [...] basilar, and proximal cerebral arteries are patent. Mine Car Repairer (topogram) images: Unremarkable. IMPRESSION: 1. No evidence [...] Concordance between software and imaging review: Discordant. Public Health Doctor: PSCB Transcribe Date/Time: May 18 2024 8:44A Dictated by : LISA CASTANEDA MD This examination was interpreted and the report reviewed and electronically signed by: LISA CASTANEDA MD on May 18 2024 9:00AM EST [id number] Normal [facility] CTA NECK W IVCONon 4 CTA NECK W IVCON * * *Final Report* * * DATE OF EXAM: May 18 2024 8:37AM [facility] 0024 - CTA NECK W IVCON / [...] basilar, and proximal cerebral arteries are patent. Mine Car Repairer (topogram) images: Unremarkable. IMPRESSION: 1. No evidence [...] Concordance between software and imaging review: Discordant. Public Health Doctor: MILTON Transcribe Date/Time: May 18 2024 8:44A Dictated by : LISA CASTANEDA MD This examination was interpreted and the report reviewed and electronically signed by: LISA CASTANEDA MD on May 18 2024 9:00AM EST [id number] Normal [facility] Comprehensive metabolic 2000 panelon 05-18-2024 Albumin [Mass/Vol] 3.9 g/dL Normal 3.9-4.9 [facility] Comment on above: Order Comment: Speci men Type: BLOOD SPECIMENOrdering Facility: [facility] Address: [address] [place] [address] Performed By: #### 3 040-3, 10496-5 ####[facility] LABORATORYCLIA [id number] [place] [address] [place] ALP [Catalytic activity/Vol] 178 U/L High 38-113 [facility] Comment on above: Order Comment: Speci men Type: BLOOD SPECIMENOrdering Facility: [facility] Address: [address] [place] [address] Performed By: #### 3 040-3, 09802-4 ####[facility] LABORATORYCLIA [id number] [place] [address] [place] ALT With P-5'-P [Catalytic activity/Vol] 37 U/L Normal 10-54 [facility] Comment on above: Order Comment: Speci men Type: BLOOD SPECIMENOrdering Facility: [facility] Address: [facility] [place] [address] Performed By: #### 3 -3, 16841-3 ####[facility] LABORATORYCLIA [id number] [address] [place] Anion gap [Moles/Vol] 11 mmol/L Normal 8-15 [facility] Comment on above: Order Comment: Speci men Type: BLOOD SPECIMENOrdering Facility: [facility] Address: [address] [place] [address] Performed By: #### 3 040-3, 95161-7 ####[facility] LABORATORYCLIA [id number] [address] [place] AST With P-5'-P [Catalytic activity/Vol] 38 U/L Normal 14-40 [facility] Comment on above: Order Comment: Speci men Type: BLOOD SPECIMENOrdering Facility: [facility] Address: [address] [place] [address] Performed By: #### 3 , ####[facility] LABORATORYCLIA [id number] [address] [place] [facility] Bilirubin [Mass/Vol] 0.5 mg/dL Normal 0.2-1.3 [facility] Comment on above: Order Comment: Speci men Type: BLOOD SPECIMENOrdering Facility: [facility] Address: [address] [place] [address] Performed By: #### 3 -, 77658-7 ####[facility] LABORATORYCLIA [id number] [address] [place] Calcium [Mass/Vol] 9.9 mg/dL Normal 8.5-10.2 [facility] Comment on above: Order Comment: Speci men Type: BLOOD SPECIMENOrdering Facility: [facility] Address: [address] [place] [address] Performed By: #### 3 040-3, 97609-6 ####[facility]ORATORYCLIA [id number] [address] [place] Chloride [Moles/Vol] 103 mmol/L Normal 98-107 [facility] Comment on above: Order Comment: Speci men Type: BLOOD SPECIMENOrdering Facility: [facility] Address: [address] [place] [address] Performed By: #### 3 040-3, 74634-0 ####[facility]ORATORYCLIA [id number] [address] [place] CO2 [Moles/Vol] 25 mmol/L Normal 22-30 [facility] Comment on above: Order Comment: Speci men Type: BLOOD SPECIMENOrdering Facility: [facility] Address: [address] [place] [address] Performed By: #### 3 040-3, 30284-8 ####[facility]ORATORYCLIA [id number] [address] [place] [facility] Creatinine [Mass/Vol] 1.40 mg/dL High 0.73-1.22 [facility] Comment on above: Order Comment: Speci men Type: BLOOD SPECIMENOrdering Facility: [facility] Address: [address] [place] [address] Performed By: #### 3 040-3, 06273-1 ####[facility]ATORYCLIA [id number] [address] Creatinine and Glomerular filtration rate.predicted panel (S/P/Bld) 52 mL/min/1.73m??? Low >=60 [facility] Comment on above: Order Comment: Speci men Type: BLOOD SPECIMENOrdering Facility: [facility] Address: [address] [place] [address] Result Comment: Bianca mated Glomerular Filtration Rate [...] actual GFR. Performed By: #### 3 040-3, 26450-6 ####[facility] LABORATORYCLIA [id number] [place] [address] [place] Glucose [Mass/Vol] 101 mg/dL High 74-99 [facility] Comment on above: Order Comment: Speci men Type: BLOOD SPECIMENOrdering Facility: [facility] Address: [address] [place] [address] Result Comment: The [place] Diabetes Association (ADA) provides guidance for cutoff [...] Standards of Medical Care in Diabetes 2016, [place] [employer] Association. Diabetes Care. 2016.39(Suppl 1). Performed By: #### 3 040-, 68712-7 ####[facility] LABORATORYCLIA [id number] [place] [address] [place] Potassium [Moles/Vol] 5.2 mmol/L High 3.7-5.1 [facility] Comment on above: Order Comment: Speci men Type: BLOOD SPECIMENOrdering Facility: [facility] Address: [address] [place] [address] Performed By: #### 3 -, ####[facility] LABORATORYCLIA [id number] [place] [address] [place] Protein [Mass/Vol] 7.4 g/dL Normal 6.3-8.0 [facility] Comment on above: Order Comment: Speci men Type: BLOOD SPECIMENOrdering Facility: [facility] Address: [address] [place] [address] Performed By: #### 3 040-, 98279-1 ####[facility] LABORATORYCLIA [id number] [place] [address] [place] Sodium [Moles/Vol] 139 mmol/L Normal 136-144 [facility] Comment on above: Order Comment: Speci men Type: BLOOD SPECIMENOrdering Facility: [facility] Address: [address] [place], [place] [address] Performed By: #### 3 040-3, 39389-7 ####[facility] LABORATORYCLIA [id number] [place] [id number] [place] Urea nitrogen [Mass/Vol] 21 mg/dL Normal 9-24 [facility] Comment on above: Order Comment: Speci men Type: BLOOD SPECIMENOrdering Facility: [facility] Address: [address] [place] [address] Performed By: #### 3 040-3, 14784-7 ####[facility] LABORATORYCLIA [id number] [place] [id number] [place] ECG COMPLETEon 05-18-2024 ECG COMPLETE Ventricular Rate : 4 5 BPM Atrial Rate : 45 BPM P-R Interval : 172 ms QRS Duration : 80 ms Q-T Interval : 456 ms QTC Calculation(Bazett) : 394 ms Calculated P [place] : 70 degrees Calculated R [place] : 62 degrees Calculated T [place] : 81 degrees SINUS BRADYCARDIA WITH PREMATURE ATRIAL COMPLEXES LOW VOLTAGE QRS BORDERLINE ECG WHEN COMPARED WITH ECG OF 18-May-2024 08:34, PREMATURE ATRIAL COMPLEXES ARE NOW PRESENT VENT. RATE HAS DECREASED by 22 bpm CRITERIA FOR SEPTAL INFARCT ARE NO LONGER PRESENT QT HAS SHORTENED Confirmed by MD STEVEN VINAYAK ([id number]) on 05/21/2024 9:45:23 PM NAME : JONATHON PERALES PID : [id number] : 1950 Gender : Male Race : ORD : [id number] Procedure Date : May 18 2024 18:18:48 Edit Date : May 21 2024 21:45:25 Diagnosis: SINUS BRADYCARDIA WITH PREMATURE ATRIAL COMPLEXES LOW VOLTAGE QRS BORDERLINE ECG WHEN COMPARED WITH ECG OF 18-May-2024 08:34, PREMATURE ATRIAL COMPLEXES ARE NOW PRESENT VENT. RATE HAS DECREASED by 22 bpm CRITERIA FOR SEPTAL INFARCT ARE NO LONGER PRESENT QT HAS SHORTENED Confirmed by MD STEVEN VINAYAK ([id number]) on 05/21/2024 9:45:23 PM Test Reason : Arrhythmia Location : 200 : [facility] Overread By : MD STEVEN VINAYAK Edited By : MD STEVEN VINAYAK Referred By : , Acquired by : ISSA BOONE [facility] ECG COMPLETE Ventricular Rate : 6 7 BPM Atrial Rate : 67 BPM P-R Interval : 152 ms QRS Duration : 80 ms Q-T Interval : 422 ms QTC Calculation(Bazett) : 445 ms Calculated P [place] : 67 degrees Calculated R [place] : 68 degrees Calculated T [place] : 81 degrees SINUS RHYTHM WITH MARKED SINUS ARRHYTHMIA SEPTAL INFARCT , AGE UNDETERMINED ABNORMAL ECG WHEN COMPARED WITH ECG OF 22-Feb-2023 22:41, PREMATURE ATRIAL COMPLEXES ARE NO LONGER PRESENT QUESTIONABLE CHANGE IN QRS AXIS T WAVE INVERSION NO LONGER EVIDENT IN INFERIOR LEADS Confirmed by DO BENDER ROHIT ([id number]) on 05/18/2024 8:44:32 AM NAME : JONATHON PERALES PID : [id number] : 1950 Gender : Male Race : ORD : [id number] Procedure Date : May 18 2024 08:34:40 Edit Date : May 18 2024 08:44:33 Diagnosis: SINUS RHYTHM WITH MARKED SINUS ARRHYTHMIA SEPTAL INFARCT , AGE UNDETERMINED ABNORMAL ECG WHEN COMPARED WITH ECG OF 22-Feb-2023 22:41, PREMATURE ATRIAL COMPLEXES ARE NO LONGER PRESENT QUESTIONABLE CHANGE IN QRS AXIS T WAVE INVERSION NO LONGER EVIDENT IN INFERIOR LEADS Confirmed by DO BENDER ROHIT ([id number]) on 05/18/2024 8:44:32 AM Test Reason : Arrhythmia [facility] Overread By : DO BENDER ROHIT Edited By : DO BENDER ROHIT Referred By : , Acquired by : MANDEEP SANTIZO [facility] ED PROV NOTEon 05-18-2024 ED PROV NOTE HNO ID: [id number] Author: HAROLDO BENDER DO Service: Emergency Medicine [...] at 7:16 AM, he was at his assisted when he slipped in some water and [...] any deficits when he was transferred from [facility] to the [facility]. 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 The patient received Consultation by trauma and stroke teams during the time that critical care was provided.I discussed the plan of care with the RESIDENT and agree with the findings documented. Critical care time excludes separately billed procedures. DO YULIA Rosas ROHIT S 05/21/241939 [facility] ED PROV NOTE HNO ID: [id number] Author: HAROLDO BENDER DO Service: Emergency Medicine Author Type: Physician Type: ED Provider Notes Filed: 05/21/2024 18:40 Note Text: ED Provider Note Patient Name: Jonathon Perales : 1950 SERVICE DATE: 05/18/24 History Patient presents with: Trauma: Pt comes from [facility], per EMS pt had mech fall this AM and hit head, denies [...] was eventually discharged to [facility], and to assisted few days ago. He reports that he [...] right side (more content not included)... Normal [facility] Ethanol SerPl-ncon 024 Ethanol [Mass/Vol] mg/dL Normal <11 [facility] Comment on above: Order Comment: Speci men Type: BLOOD SPECIMENOrdering Facility: [facility] Address: [address] [place] [address] Performed By: #### 5 643-2 ####[facility] LABORATORYCLIA [id number] [address] HIGH SENSITIVITY TROPONIN To n 05-18-2024 Troponin T.cardiac High sensitivity method [Mass/Vol] 27 ng/L High <12 [facility] Comment on above: Order Comment: Speci men Type: BLOOD SPECIMENOrdering Facility: [facility] Address: [address] [place] [address] Performed By: #### H STNT ####[facility] LABORATORYCLIA [id number] [address] HIGH SENSITIVITY TROPONIN T (INITIAL)on 05-18-2024 Troponin T.cardiac High sensitivity method [Mass/Vol] 30 ng/L High <12 [facility] Comment on above: Order Comment: Speci men Type: BLOOD SPECIMENOrdering Facility: [facility] Address: [address] [place] [address] Performed By: #### L [id number] ####[facility] LABORATORYCLIA [id number] [address] HIGH SENSITIVITY TROPONIN T (SECOND)on 05-18-2024 Troponin T.cardiac High sensitivity method [Mass/Vol] 27 ng/L High <12 [facility] Comment on above: Order Comment: Speci men Type: BLOOD SPECIMENOrdering Facility: [facility] Address: [address] [place] [address] Performed By: #### L [id number] ####[facility] LABORATORYCLIA [id number] [place] [id number] [facility] HIGH SENSITIVITY TROPONIN T (THIRD) 3 HRS AFTER INITIALon 05-18-2024 Troponin T.cardiac High sensitivity method [Mass/Vol] 29 ng/L High <12 [facility] Comment on above: Order Comment: Speci men Type: BLOOD SPECIMENOrdering Facility: [facility] Address: [address] [place] [address] Performed By: #### L [id number] ####[facility] LABORATORYIA [id number] [place] [address] [place] [facility] HISTORY PHYSICALon HISTORY PHYSICAL HNO ID: [id number] Author: GIORGIO GRAHAM MD Service: Trauma Author [...] Graham MD Delayed entry TRAUMA SURGERY HANDP [facility] ARRIVAL DATE: 05/18/2024 ARRIVAL TIME: 8:20 AM [...] disease M (more content not included)... Normal [facility] Lipase SerPl-cCncon 05-18-20 24 Lipase [Catalytic activity/Vol] 27 U/L Normal 16-61 [facility] Comment on above: Order Comment: Speci men Type: BLOOD SPECIMENOrdering Facility: [facility] Address: [address] [place] [address] Performed By: #### 3 040-3, 40062-9 ####[facility] LABORATORYCLIA [id number] [address] [place] PT panel Coag (PPP)on 2023 INR Coag (PPP) [Relative time] 1.0 {INR} Normal 0.9-1.3 [facility] Comment on above: Order Comment: Speci men Type: BLOOD SPECIMENOrdering Facility: [facility] Address: [address] [place] [address] Result Comment: Violette min K Antagonist (VKA) Therapeutic Range: INR 2 to 3 (Target INR of 2.5) Note: For patients treated with VKA drugs, such as warfarin, the [place] [employer] 2012 Guideline recommends [...] Chest 2012, 141:7S-47S Janice RA, et al. [facility] 2017, 70: 252-289 Performed By: #### 3 4528-0, 30046-3 ####[facility] LABORATORYCLIA [id number] [address] [place] PT Coag (PPP) [Time] 10.6 s Normal 9.7-13.0 [facility] Comment on above: Order Comment: Speci men Type: BLOOD SPECIMENOrdering Facility: [facility] Address: [address] [place] [address] Performed By: #### 3 4528-0, 58845-2 ####[facility] LABORATORYCLIA [id number] [place] [id number] [facility] THERAPY NTon 05-18-2024 THERAPY NT HNO ID: [id number] Author: SHAHID PONCE CCC-WARP KNITTER Service: Speech/Swallow Author Type: Speech Language Pathologist Type: Therapy (PT/OT/Speech/Resp) Filed: 05/18/2024 16:15 Note Text: Speech Therapy Clinical Swallow Evaluation SERVICE DATE: 05/18/2024 SERVICE TIME: 1530 to 1550 ROOM: [id number] IMPRESSION: Swallow Deficits Identified / Suspected: Oropharyngeal dysphagia - patient with recent history of dysphagia, aspiration of thin liquids on recent MBSS following stroke in April 2024. Recommend the modified diet mentioned below. Diet Recommendations: Minced and Moist IDDSI Level 5 Mildly Thick Liquids IDDSI Level 2 ([place] Thick) Medications whole in puree (pudding/applesauce) Swallowing [...] Alternate bites and sips Previous Swallow Study: [facility] (05/13/24 minced diet/nectar thick liquids) Clinical Swallow [...] tolerate Mildly Thick Liquids IDDSI Level 2 ([place] Thick) consistency while utilizing compensatory/swallowin g strategies given minimal cues in 90% of trials so that the patient will minimize the signs/symptoms of dysphagia. Patient, Caregiver will demonstrate adequate return of knowledge of all compensatory strategies/instruction (more content not included)... Normal [facility] THERAPY NT HNO ID: [id number] Author: MATY WOLF, PT Service: Physical Therapy Author Type: Physical Therapist Type: Therapy (PT/OT/Speech/Resp) Filed: 05/18/2024 15:22 Note Text: Physical Therapy Evaluation Summary SERVICE DATE: 05/18/2024 SERVICE TIME: 1422 to 1452 ROOM: [id number]- PT 6 Clicks Score: 17 DISCHARGE RECOMMENDATIONS [...] (had large stroke 04/2024 and was at [facility] and then transitioned to SNF), tele medicine [...] and mobility-other TREATMENT INTERVENTIONS Evaluation, Therapeutic Activity (40709) Timed Code Treatment (minutes): 8 Skilled Treatment Time (minutes): 30 $ Evaluation-Moderate (24321) Billed Units: 1 unit Therapeutic Activity (19803) Treatment Minutes: 8 $ Therapeutic Activity (83524) Billed Units: 1 unit Directed in bed [...] May 18, 2024 TIME: 3:19 PM Normal [facility] TOXICOLOGY SCREEN, ROUTINE U RINEon 05-18-2024 Amphetamines Confirm (U) [Mass/Vol] Negative Normal Negative [facility] Comment on above: Order Comment: Speci men Type: URINE SPECIMENOrdering Facility: [facility] Address: [address] [place] [address] Result Comment: Cuto ff threshold at 1000 ng/mL. Performed By: #### U TOX2 ####[facility]ORATORYCLIA [id number] [address] [place] BARBITURATES, URINE Negative Normal Negative [facility] Comment on above: Order Comment: Speci men Type: URINE SPECIMENOrdering Facility: [facility] Address: [address] [place] [address] Result Comment: Cuto ff threshold at 200 ng/mL. Performed By: #### U TOX2 ####[facility] LABORATORYCLIA [id number] [place] [address] [place] BENZODIAZEPINES, UR Negative Normal Negative [facility] Comment on above: Order Comment: Speci men Type: URINE SPECIMENOrdering Facility: [facility] Address: [address] [place] [address] Result Comment: Cuto ff threshold at 200 ng/mL. Performed By: #### U TOX2 ####[facility]ORATORYCLIA [id number] [place] [address] [place] Cannabinoids Screen Ql (U) Negative Normal Negative [facility] Comment on above: Order Comment: Speci men Type: URINE SPECIMENOrdering Facility: [facility] Address: [address] [place] [address] Result Comment: Cuto ff threshold at 50 ng/mL. Performed By: #### U TOX2 ####[facility]ORATORYCLIA [id number] [place] [address] [place] Cocaine Ql (U) Negative Normal Negative [facility] Comment on above: Order Comment: Speci men Type: URINE SPECIMENOrdering Facility: [facility] Address: [address] [place] [address] Result Comment: Cuto ff threshold at 300 ng/mL. Performed By: #### U TOX2 ####[facility] LABORATORYCLIA [id number] [address] [place] Ethanol (U) [Mass/Vol] <11 Normal <11 [facility] Comment on above: Order Comment: Speci men Type: URINE SPECIMENOrdering Facility: [facility] Address: [address] [place] [address] Performed By: #### U TOX2 ####[facility] LABORATORYCLIA [id number] [address] [place] Opiates Screen Ql (U) Positive Abnormal Negative [facility] Comment on above: Order Comment: Speci men Type: URINE SPECIMENOrdering Facility: [facility] Address: [address] [place] [address] Result Comment: Cuto ff threshold at 300 ng/mL. Performed By: #### U TOX2 ####[facility] LABORATORYCLIA [id number] [address] oxyCODONE cutoff Screen (U) [Mass/Vol] Negative Normal Negative [facility] Comment on above: Order Comment: Speci men Type: URINE SPECIMENOrdering Facility: [facility] Address: [address] [place] [address] Result Comment: Cuto ff threshold at 100 ng/mL. Performed By: #### U TOX2 ####[facility] LABORATORYCLIA [id number] [address] Phencyclidine Ql (U) Negative Normal Negative [facility] Comment on above: Order Comment: Speci men Type: URINE SPECIMENOrdering Facility: [facility] Address: [address] [place] [address] Result Comment: Cuto ff threshold at 25 ng/mL. Performed By: #### U TOX2 ####[facility]ORATORYCLIA [id number] [address] [place] TYPE + SCREENon 05-18-2024 ABO A Normal [facility] Comment on above: Order Comment: Speci men Type: BLOOD SPECIMENOrdering Facility: [facility] Address: [address] [place] [address] Performed By: #### T SCR ####[facility] BLOOD BANKCLIA [id number] [address] HISTORICAL AB SCR STATUS Negative Normal [facility] Comment on above: Order Comment: Speci men Type: BLOOD SPECIMENOrdering Facility: [facility] Address: [address] [place] [address] Performed By: #### T SCR ####[facility] BLOOD BANKCLIA [id number] [address] Rh Nom (Bld) Positive Normal [facility] Comment on above: Order Comment: Speci men Type: BLOOD SPECIMENOrdering Facility: [facility] Address: [address] [place] [address] Performed By: #### T SCR ####[facility] BLOOD BANKCLIA [id number] [address] TYPE AND SCREEN EXPIRATION 05/21/2024 23:59 Normal [facility] Comment on above: Order Comment: Speci men Type: BLOOD SPECIMENOrdering Facility: [facility] Address: [address] [place] [address] Performed By: #### T SCR ####[facility] BLOOD BANKCLIA [id number] [address] [place] Urinalysis complete panel (U )on 05-18-2024 Bacteria LM.HPF (Urine sed) [#/Area] Few Abnormal None Seen [facility] Comment on above: Order Comment: Speci men Type: URINE SPECIMENOrdering Facility: [facility] Address: [address] [place] [address] Performed By: #### 2 4356-8 ####[facility] LABORATORYCLIA [id number] [place] [address] [place] Bilirubin Ql (U) Negative Normal Negative [facility] Comment on above: Order Comment: Speci men Type: URINE SPECIMENOrdering Facility: [facility] Address: [address] [place] [address] Performed By: #### 2 4356-8 ####[facility] LABORATORYCLIA [id number] [place] [address] [place] Clarity (Unsp spec) Clear Normal Clear [facility] Comment on above: Order Comment: Speci men Type: URINE SPECIMENOrdering Facility: [facility] Address: [address] [place] [address] Performed By: #### 2 4356-8 ####[facility] LABORATORYCLIA [id number] [address] [place] Color (U) Light Yellow Normal yellow [facility] Comment on above: Order Comment: Speci men Type: URINE SPECIMENOrdering Facility: [facility] Address: [address] [place] [address] Performed By: #### 2 4356-8 ####[facility] LABORATORYCLIA [id number] [address] [place] Glucose Test strip (U) [Mass/Vol] Negative Normal Trace, Negative [facility] Comment on above: Order Comment: Speci men Type: URINE SPECIMENOrdering Facility: [facility] Address: [address] [place] [address] Performed By: #### 2 4356-8 ####[facility] LABORATORYCLIA [id number] [place] [address] [place] Hemoglobin Ql (U) Negative Normal Negative, Trace [facility] Comment on above: Order Comment: Speci men Type: URINE SPECIMENOrdering Facility: [facility] Address: [address] [place] [address] Performed By: #### 2 4356-8 ####[facility] LABORATORYCLIA [id number] [place] [address] [place] Ketones Ql (U) Negative Normal Negative, Trace [facility] Comment on above: Order Comment: Speci men Type: URINE SPECIMENOrdering Facility: [facility] Address: [address] [place] [address] Performed By: #### 2 4356-8 ####[facility] LABORATORYCLIA [id number] [address] Leukocyte esterase Test strip Ql (U) Negative Normal Negative, 25 Garrick/uL [facility] Comment on above: Order Comment: Speci men Type: URINE SPECIMENOrdering Facility: [facility] Address: [address] [place] [address] Performed By: #### 2 4356-8 ####[facility] LABORATORYCLIA [id number] [address] Nitrite Ql (U) Negative Normal Negative [facility] Comment on above: Order Comment: Speci men Type: URINE SPECIMENOrdering Facility: [facility] Address: [address] [place] [address] Performed By: #### 2 4356-8 ####[facility] LABORATORYCLIA [id number] [address] [place] pH (U) 6.5 [pH] Normal 5.0-8.0 [facility] Comment on above: Order Comment: Speci men Type: URINE SPECIMENOrdering Facility: [facility] Address: [address] [place] [address] Performed By: #### 2 4356-8 ####[facility] LABORATORYCLIA [id number] [address] Protein (U) [Mass/Vol] Trace Normal Trace , Negative [facility] Comment on above: Order Comment: Speci men Type: URINE SPECIMENOrdering Facility: [facility] Address: [address] [place] [address] Performed By: #### 2 4356-8 ####[facility] LABORATORYCLIA [id number] [place] [address] [place] RBC LM.HPF (Urine sed) [#/Area] 0-3 /HPF Normal 0-3 /HPF [facility] Comment on above: Order Comment: Speci men Type: URINE SPECIMENOrdering Facility: [facility] Address: [address] [place] [address] Performed By: #### 2 4356-8 ####[facility] LABORATORYCLIA [id number] [address] [place] Specific gravity (U) [Rel density] >1.040 High 1.005-1.030 [facility] Comment on above: Order Comment: Speci men Type: URINE SPECIMENOrdering Facility: [facility] Address: [address] [place] [address] Performed By: #### 2 4356-8 ####[facility] LABORATORYCLIA [id number] [address] Urobilinogen Ql (U) Normal Normal Normal [facility] Comment on above: Order Comment: Speci men Type: URINE SPECIMENOrdering Facility: [facility] Address: [address] [place] [address] Performed By: #### 2 4356-8 ####[facility] LABORATORYCLIA [id number] [address] WBC LM.HPF (Urine sed) [#/Area] 0-5 /HPF Normal 0-5 /HPF [facility] Comment on above: Order Comment: Speci men Type: URINE SPECIMENOrdering Facility: [facility] Address: [address] [place] [address] Performed By: #### 2 4356-8 ####[facility] LABORATORYCLIA [id number] [address] [place] aPTT PPPon 05-18-2024 aPTT Coag (PPP) [Time] 31.9 s Normal 23.0-32.4 [facility] Comment on above: Order Comment: Speci men Type: BLOOD SPECIMENOrdering Facility: [facility] Address: [address] [place] [address] Performed By: #### 3 4528-0, 28929-8 ####[facility] [id number] [address] STATES OF [facility] CBC panel Auto (Bld)on 05-11 Erythrocyte distribution width (RBC) [Ratio] 13.1 % 11.5 - 15.0 % [facility] Hematocrit (Bld) [Volume fraction] 40.8 % 39.0 - 51.0 % [facility] Hemoglobin (Bld) [Mass/Vol] 13.0 g/dL 13.0 - 17.0 g/dL [facility] Interpretation and review of laboratory results Abnormal [facility] MCH (RBC) [Entitic mass] 33.9 pg 26.0 - 34.0 pg [facility] MCHC (RBC) [Mass/Vol] 31.9 g/dL 30.5 - 36.0 g/dL [facility] MCV (RBC) [Entitic vol] 106.5 fL High 80.0 - 100.0 fL [facility] Nucleated RBC (Bld) [#/Vol] NINF [facility] Platelet mean volume (Bld) [Entitic vol] 11.0 fL 9.0 - 12.7 fL [facility] Platelets (Bld) [#/Vol] 314 10*3/uL [facility] RBC (Bld) [#/Vol] 3.83 10*6/uL Low 4.20 - 6.0 0 m/uL [facility] WBC (Bld) [#/Vol] 10.38 10*3/uL [facility] Erythrocyte distribution width (RBC) [Ratio] 13.1 % Normal 11.5-15.0 [facility] Comment on above: Order Comment: Speci rafita Type: BLOOD SPECIMEN Ordering Facility: [facility] Address: [address] [place] [address] Performed By: #### 5 8410-2 #### [facility] CLIA [id number] [address] [place] [address] OF [facility] Hematocrit (Bld) [Volume fraction] 40.8 % Normal 39.0-51.0 [facility] Comment on above: Order Comment: Lyndsey eller Type: BLOOD SPECIMEN Ordering Facility: [facility] Address: [address] [place] [address] Performed By: #### 5 8410-2 #### [facility] CLIA [id number] [address] [place] [address] [place] Hemoglobin (Bld) [Mass/Vol] 13.0 g/dL Normal 13.0-17.0 [facility] Comment on above: Order Comment: Speci men Type: BLOOD SPECIMEN Ordering Facility: [facility] Address: [address] [place] [address] Performed By: #### 5 8410-2 #### [facility] CLIA [id number] [address] [place] [address] [place] MCH (RBC) [Entitic mass] 33.9 pg Normal 26.0-34.0 [facility] Comment on above: Order Comment: Speci men Type: BLOOD SPECIMEN Ordering Facility: [facility] Address: [address] [place] [address] Performed By: #### 5 8410-2 #### [facility] CLIA [id number] [address] [place] MCHC (RBC) [Mass/Vol] 31.9 g/dL Normal 30.5-36.0 [facility] Comment on above: Order Comment: Speci men Type: BLOOD SPECIMEN Ordering Facility: [facility] Address: [address] [place] [address] Performed By: #### 5 8410-2 #### [facility] CLIA [id number] [address] [place] MCV (RBC) [Entitic vol] 106.5 fL High 80.0-100.0 [facility] Comment on above: Order Comment: Speci men Type: BLOOD SPECIMEN Ordering Facility: [facility] Address: [address] [place] [address] Performed By: #### 5 8410-2 #### [facility] CLIA [id number] [address] OF [place] Nucleated RBC (Bld) [#/Vol] 10*3/uL Normal <0.01 [facility] Comment on above: Order Comment: Speci men Type: BLOOD SPECIMEN Ordering Facility: [facility] Address: [address] [place] [address] Performed By: #### 5 8410-2 #### [facility] CLIA [id number] [address] [place] [address] [place] Platelet mean volume (Bld) [Entitic vol] 11.0 fL Normal 9.0-12.7 [facility] Comment on above: Order Comment: Speci men Type: BLOOD SPECIMEN Ordering Facility: [facility] Address: [address] [place] [address] Performed By: #### 5 8410-2 #### [facility] CLIA [id number] [address] [place] [address] [place] Platelets (Bld) [#/Vol] 314 10*3/uL Normal 150-400 [facility] Comment on above: Order Comment: Speci men Type: BLOOD SPECIMEN Ordering Facility: [facility] Address: [address] [place] [address] Performed By: #### 5 8410-2 #### [facility] CLIA [id number] [address] [place] [address] [place] RBC (Bld) [#/Vol] 3.83 10*6/uL Low 4.20-6.00 [facility] Comment on above: Order Comment: Speci men Type: BLOOD SPECIMEN Ordering Facility: [facility] Address: [address] [place] [address] Performed By: #### 5 8410-2 #### [facility] CLIA [id number] [address] [place] [address] [place] WBC (Bld) [#/Vol] 10.38 10*3/uL Normal 3.70-11.00 [facility] Comment on above: Order Comment: Speci men Type: BLOOD SPECIMEN Ordering Facility: [facility] Address: [address] [place] [address] Performed By: #### 5 8410-2 #### [facility] CLIA [id number] [address] [place] [address] [place] Basic metabolic 2000 panelon 05-07-2024 Anion gap [Moles/Vol] 12 mmol/L 8 - 15 mmol/L [facility] Calcium [Mass/Vol] 9.6 mg/dL 8.5 - 10. 2 mg/dL [facility] Chloride [Moles/Vol] 103 mmol/L 98 - 10 7 mmol/L [facility] CO2 [Moles/Vol] 22 mmol/L 22 - 30 mmol/L [facility] Creatinine [Mass/Vol] 1.12 mg/dL 0.73 - 1.22 mg/dL [facility] GFR/1.73 sq M.predicted among non-blacks MDRD (S/P/Bld) [Vol rate/Area] 69 mL/min/{1.73_m2} - PINF [facility] Comment on above: Estimated Glomerular Filtration [...] [Mass/Vol] 85 mg/dL 74 - 99 mg/dL [facility] Comment on above: The [place] Di[employer] Association (ADA) provides guidance for [...] Standards of Medical Care in Diabetes 2016, [place] [employer]. Diabetes Care. 2016.39(Suppl 1). Interpretation and review of laboratory results Abnormal [facility] Potassium [Moles/Vol] 4.7 mmol/L 3.7 - 5.1 mmol/L [facility] Sodium [Moles/Vol] 137 mmol/L 136 - 144 mmol/L [facility] Urea nitrogen [Mass/Vol] 26 mg/dL High 9 - 24 mg/dL [facility] Anion gap [Moles/Vol] 12 mmol/L Normal 8-15 [facility] Comment on above: Order Comment: Speci men Type: BLOOD SPECIMEN Ordering Facility: [facility] Address: [address] [place] [address] Performed By: #### 2 4321-2 #### [facility] CLIA [id number] [address] [place] [address] [place] Calcium [Mass/Vol] 9.6 mg/dL Normal 8.5-10.2 [facility] Comment on above: Order Comment: Speci men Type: BLOOD SPECIMEN Ordering Facility: [facility] Address: [address] [place] [address] Performed By: #### 2 4321-2 #### [facility] CLIA [id number] [address] [place] [address] [place] Chloride [Moles/Vol] 103 mmol/L Normal 98-107 [facility] Comment on above: Order Comment: Speci men Type: BLOOD SPECIMEN Ordering Facility: [facility] Address: [address] [place] [address] Performed By: #### 2 4321-2 #### [facility] CLIA [id number] [address] [place] [address] [place] CO2 [Moles/Vol] 22 mmol/L Normal 22-30 [facility] Comment on above: Order Comment: Speci men Type: BLOOD SPECIMEN Ordering Facility: [facility] Address: [address] [place] [address] Performed By: #### 2 4321-2 #### [facility] CLIA [id number] [address] [place] [address] [place] Creatinine [Mass/Vol] 1.12 mg/dL Normal 0.73-1.22 [facility] Comment on above: Order Comment: Speci men Type: BLOOD SPECIMEN Ordering Facility: [facility] Address: [address] [place] [address] Performed By: #### 2 4321-2 #### [facility] CLIA [id number] [address] [place] [address] [place] Creatinine and Glomerular filtration rate.predicted panel (S/P/Bld) 69 mL/min/1.73m??? Normal >=60 [facility] Comment on above: Order Comment: Lyndsey eller Type: BLOOD SPECIMEN Ordering Facility: [facility] Address: [address] [place] [address] Result Comment: Bianca mated Glomerular Filtration Rate [...] GFR. Performed By: #### 2 4321-2 #### [facility] CLIA [id number] [address] [place] [address] [place] Glucose [Mass/Vol] 85 mg/dL Normal 74-99 [facility] Comment on above: Order Comment: Lyndsey eller Type: BLOOD SPECIMEN Ordering Facility: [facility] Address: [address] [place] [address] Result Comment: The [place] Diabetes [employer] (ADA) provides guidance for cutoff [...] Standards of Medical Care in Diabetes 2016, [place] [employer]. Diabetes Care. 2016.39(Suppl 1). Performed By: #### 2 4321-2 #### [facility] CLIA [id number] [address] [place] [address] [place] Potassium [Moles/Vol] 4.7 mmol/L Normal 3.7-5.1 [facility] Comment on above: Order Comment: Lyndsey eller Type: BLOOD SPECIMEN Ordering Facility: [facility] Address: [address] [place] [address] Performed By: #### 2 4321-2 #### [facility] CLIA [id number] [address] Sodium [Moles/Vol] 137 mmol/L Normal 136-144 [facility] Comment on above: Order Comment: Speci men Type: BLOOD SPECIMEN Ordering Facility: [facility] Address: [address] [place] [address] Performed By: #### 2 4321-2 #### [facility] CLIA [id number] [address] [place] Urea nitrogen [Mass/Vol] 26 mg/dL High 9-24 [facility] Comment on above: Order Comment: Speci men Type: BLOOD SPECIMEN Ordering Facility: [facility] Address: [address] [place] [address] Performed By: #### 2 4321-2 #### [facility] CLIA [id number] [address] [place] CBC panel Auto (Bld)on 05-07 Erythrocyte distribution width (RBC) [Ratio] 12.8 % 11.5 - 15.0 % [facility] Hematocrit (Bld) [Volume fraction] 39.9 % 39.0 - 51.0 % [facility] Hemoglobin (Bld) [Mass/Vol] 13.0 g/dL 13.0 - 17.0 g/dL [facility] Interpretation and review of laboratory results Abnormal [facility] MCH (RBC) [Entitic mass] 34.2 pg High 26.0 - 34.0 pg [facility] MCHC (RBC) [Mass/Vol] 32.6 g/dL 30.5 - 36.0 g/dL [facility] MCV (RBC) [Entitic vol] 105.0 fL High 80.0 - 100.0 fL [facility] Nucleated RBC (Bld) [#/Vol] NINF [facility] Platelet mean volume (Bld) [Entitic vol] 10.8 fL 9.0 - 12.7 fL [facility] Platelets (Bld) [#/Vol] 264 10*3/uL [facility] RBC (Bld) [#/Vol] 3.80 10*6/uL Low 4.20 - 6.0 0 m/uL [facility] WBC (Bld) [#/Vol] 6.94 10*3/uL [facility] Erythrocyte distribution width (RBC) [Ratio] 12.8 % Normal 11.5-15.0 [facility] Comment on above: Order Comment: Speci men Type: BLOOD SPECIMEN Ordering Facility: [facility] Address: [address] [place] [address] Performed By: #### 5 8410-2 #### [facility] CLIA [id number] [address] Hematocrit (Bld) [Volume fraction] 39.9 % Normal 39.0-51.0 [facility] Comment on above: Order Comment: Speci men Type: BLOOD SPECIMEN Ordering Facility: [facility] Address: [address] [place] [address] Performed By: #### 5 8410-2 #### [facility] CLIA [id number] [address] [place] Hemoglobin (Bld) [Mass/Vol] 13.0 g/dL Normal 13.0-17.0 [facility] Comment on above: Order Comment: Speci men Type: BLOOD SPECIMEN Ordering Facility: [facility] Address: [address] [place] [address] Performed By: #### 5 8410-2 #### [facility] CLIA [id number] [address] [place] MCH (RBC) [Entitic mass] 34.2 pg High 26.0-34.0 [facility] Comment on above: Order Comment: Speci men Type: BLOOD SPECIMEN Ordering Facility: [facility] Address: [address] [place] [address] Performed By: #### 5 8410-2 #### [facility] CLIA [id number] [address] [place] MCHC (RBC) [Mass/Vol] 32.6 g/dL Normal 30.5-36.0 [facility] Comment on above: Order Comment: Speci men Type: BLOOD SPECIMEN Ordering Facility: [facility] Address: [address] [place] [address] Performed By: #### 5 8410-2 #### [facility] CLIA [id number] [address] [place] MCV (RBC) [Entitic vol] 105.0 fL High 80.0-100.0 [facility] Comment on above: Order Comment: Speci men Type: BLOOD SPECIMEN Ordering Facility: [facility] Address: [address] [place] [address] Performed By: #### 5 8410-2 #### [facility] CLIA [id number] [address] Nucleated RBC (Bld) [#/Vol] 10*3/uL Normal <0.01 [facility] Comment on above: Order Comment: Speci men Type: BLOOD SPECIMEN Ordering Facility: [facility] Address: [address] [place] [address] Performed By: #### 5 8410-2 #### [facility] CLIA [id number] [address] Platelet mean volume (Bld) [Entitic vol] 10.8 fL Normal 9.0-12.7 [facility] Comment on above: Order Comment: Speci men Type: BLOOD SPECIMEN Ordering Facility: [facility] Address: [address] [place] [address] Performed By: #### 5 8410-2 #### [facility] CLIA [id number] [address] [place] Platelets (Bld) [#/Vol] 264 10*3/uL Normal 150-400 [facility] Comment on above: Order Comment: Speci men Type: BLOOD SPECIMEN Ordering Facility: [facility] Address: [address] [place] [address] Performed By: #### 5 8410-2 #### [facility] CLIA [id number] [address] [place] RBC (Bld) [#/Vol] 3.80 10*6/uL Low 4.20-6.00 [facility] Comment on above: Order Comment: Lyndsey rafita Type: BLOOD SPECIMEN Ordering Facility: [facility] Address: [address] [place] [address] Performed By: #### 5 8410-2 #### [facility] CLIA [id number] [address] WBC (Bld) [#/Vol] 6.94 10*3/uL Normal 3.70-11.00 [facility] Comment on above: Order Comment: Lyndsey eller Type: BLOOD SPECIMEN Ordering Facility: [facility] Address: [address] [place] [address] Performed By: #### 5 8410-2 #### [facility] CLIA [id number] [address] Basic metabolic 2000 panelon 05-05-2024 Anion gap [Moles/Vol] 10 mmol/L 8 - 15 mmol/L [facility] Calcium [Mass/Vol] 8.9 mg/dL 8.5 - 10. 2 mg/dL [facility] Chloride [Moles/Vol] 106 mmol/L 98 - 10 7 mmol/L [facility] CO2 [Moles/Vol] 24 mmol/L 22 - 30 mmol/L [facility] Creatinine [Mass/Vol] 1.52 mg/dL High 0.73 - 1.22 mg/dL [facility] GFR/1.73 sq M.predicted among non-blacks MDRD (S/P/Bld) [Vol rate/Area] 48 mL/min/{1.73_m2} Low - PINF [facility] Comment on above: Estimated Glomerular Filtration [...] [Mass/Vol] 81 mg/dL 74 - 99 mg/dL [facility] Comment on above: The [place] Diabete s Association (ADA) provides guidance for [...] Standards of Medical Care in Diabetes 2016, [place] [employer]. Diabetes Care. 2016.39(Suppl 1). Interpretation and review of laboratory results Abnormal [facility] Potassium [Moles/Vol] 4.6 mmol/L 3.7 - 5.1 mmol/L [facility] Sodium [Moles/Vol] 140 mmol/L 136 - 144 mmol/L [facility] Urea nitrogen [Mass/Vol] 53 mg/dL High 9 - 24 mg/dL [facility] Anion gap [Moles/Vol] 10 mmol/L Normal 8-15 [facility] Comment on above: Order Comment: Speci men Type: BLOOD SPECIMEN Ordering Facility: [facility] Address: [address] [place] [address] Performed By: #### 2 4321-2 #### [facility] CLIA [id number] [address] [place] [address] [place] Calcium [Mass/Vol] 8.9 mg/dL Normal 8.5-10.2 [facility] Comment on above: Order Comment: Speci men Type: BLOOD SPECIMEN Ordering Facility: [facility] Address: [address] [place] [address] Performed By: #### 2 4321-2 #### [facility] CLIA [id number] [address] [place] [address] [place] Chloride [Moles/Vol] 106 mmol/L Normal 98-107 [facility] Comment on above: Order Comment: Speci men Type: BLOOD SPECIMEN Ordering Facility: [facility] Address: [address] [place] [address] Performed By: #### 2 4321-2 #### [facility] CLIA [id number] [address] [place] [address] [place] CO2 [Moles/Vol] 24 mmol/L Normal 22-30 [facility] Comment on above: Order Comment: Speci rafita Type: BLOOD SPECIMEN Ordering Facility: [facility] Address: [address] [place] [address] Performed By: #### 2 4321-2 #### [facility] CLIA [id number] [address] [place] [address] [place] Creatinine [Mass/Vol] 1.52 mg/dL High 0.73-1.22 [facility] Comment on above: Order Comment: Rosii men Type: BLOOD SPECIMEN Ordering Facility: [facility] Address: [address] [place] [address] Performed By: #### 2 4321-2 #### [facility] CLIA [id number] [address] [place] Creatinine and Glomerular filtration rate.predicted panel (S/P/Bld) 48 mL/min/1.73m??? Low >=60 [facility] Comment on above: Order Comment: Lyndsey eller Type: BLOOD SPECIMEN Ordering Facility: [facility] Address: [address] [place] [address] Result Comment: Bianca mated Glomerular Filtration Rate [...] #### 2 4321-2 #### [facility] CLIA [id number] [address] [place] Glucose [Mass/Vol] 81 mg/dL Normal 74-99 [facility] Comment on above: Order Comment: Rosii men Type: BLOOD SPECIMEN Ordering Facility: [facility] Address: [address] [place] [address] Result Comment: The [place] Diabetes [employer] (ADA) provides guidance for cutoff [...] Standards of Medical Care in Diabetes 2016, [place] [employer]. Diabetes Care. 2016.39(Suppl 1). Performed By: #### 2 4321-2 #### [facility] CLIA [id number] [address] [place] [address] [place] Potassium [Moles/Vol] 4.6 mmol/L Normal 3.7-5.1 [facility] Comment on above: Order Comment: Speci men Type: BLOOD SPECIMEN Ordering Facility: [facility] Address: [address] [place] [address] Performed By: #### 2 4321-2 #### [facility] CLIA [id number] [address] [place] [address] [place] Sodium [Moles/Vol] 140 mmol/L Normal 136-144 [facility] Comment on above: Order Comment: Speci men Type: BLOOD SPECIMEN Ordering Facility: [facility] Address: [address] [place] [address] Performed By: #### 2 4321-2 #### [facility] CLIA [id number] [address] [place] [address] [place] Urea nitrogen [Mass/Vol] 53 mg/dL High 9-24 [facility] Comment on above: Order Comment: Speci men Type: BLOOD SPECIMEN Ordering Facility: [facility] Address: [address] [place] [address] Performed By: #### 2 4321-2 #### [facility] CLIA [id number] [address] [place] [address] [place] Basic metabolic 2000 panelon 06-17-2024 Anion gap [Moles/Vol] 16 mmol/L High 8 - 15 mmol/L [facility] Calcium [Mass/Vol] 9.6 mg/dL 8.5 - 10. 2 mg/dL [facility] Chloride [Moles/Vol] 102 mmol/L 98 - 10 7 mmol/L [facility] CO2 [Moles/Vol] 22 mmol/L 22 - 30 mmol/L [facility] Creatinine [Mass/Vol] 1.99 mg/dL High 0.73 - 1.22 mg/dL [facility] GFR/1.73 sq M.predicted among non-blacks MDRD (S/P/Bld) [Vol rate/Area] 35 mL/min/{1.73_m2} Low - PINF [facility] Comment on above: Estimated Glomerular Filtration [...] [Mass/Vol] 91 mg/dL 74 - 99 mg/dL [facility] Comment on above: The [place] Diabete s Association (ADA) provides guidance for [...] Standards of Medical Care in Diabetes 2016, [place] [employer]. Diabetes Care. 2016.39(Suppl 1). Interpretation and review of laboratory results Abnormal [facility] Potassium [Moles/Vol] 4.5 mmol/L 3.7 - 5.1 mmol/L [facility] Sodium [Moles/Vol] 140 mmol/L 136 - 144 mmol/L [facility] Urea nitrogen [Mass/Vol] 70 mg/dL High 9 - 24 mg/dL [facility] Anion gap [Moles/Vol] 16 mmol/L High 8-15 [facility] Comment on above: Order Comment: Speci men Type: BLOOD SPECIMEN Ordering Facility: [facility] Address: [address] [place] [address] Performed By: #### 2 4321-2 #### [facility] CLIA [id number] [address] [place] [address] [place] Calcium [Mass/Vol] 9.6 mg/dL Normal 8.5-10.2 [facility] Comment on above: Order Comment: Speci men Type: BLOOD SPECIMEN Ordering Facility: [facility] Address: [address] [place] [address] Performed By: #### 2 4321-2 #### [facility] CLIA [id number] [address] [place] [address] [place] Chloride [Moles/Vol] 102 mmol/L Normal 98-107 [facility] Comment on above: Order Comment: Speci men Type: BLOOD SPECIMEN Ordering Facility: [facility] Address: [address] [place] [address] Performed By: #### 2 4321-2 #### [facility] CLIA [id number] [address] [place] [address] [place] CO2 [Moles/Vol] 22 mmol/L Normal 22-30 [facility] Comment on above: Order Comment: Speci men Type: BLOOD SPECIMEN Ordering Facility: [facility] Address: [address] [place] [address] Performed By: #### 2 4321-2 #### [facility] CLIA [id number] [address] [place] [address] [place] Creatinine [Mass/Vol] 1.99 mg/dL High 0.73-1.22 [facility] Comment on above: Order Comment: Speci men Type: BLOOD SPECIMEN Ordering Facility: [facility] Address: [address] [place] [address] Performed By: #### 2 4321-2 #### [facility] CLIA [id number] [address] [place] [address] [place] Creatinine and Glomerular filtration rate.predicted panel (S/P/Bld) 35 mL/min/1.73m??? Low >=60 [facility] Comment on above: Order Comment: Lyndsey eller Type: BLOOD SPECIMEN Ordering Facility: [facility] Address: [address] [place] [address] Result Comment: Bianca mated Glomerular Filtration Rate [...] GFR. Performed By: #### 2 4321-2 #### [facility] CLIA [id number] [address] [place] [address] [place] Glucose [Mass/Vol] 91 mg/dL Normal 74-99 [facility] Comment on above: Order Comment: Lyndsey eller Type: BLOOD SPECIMEN Ordering Facility: [facility] Address: [address] [place] [address] Result Comment: The [place] [employer] (ADA) provides guidance for cutoff [...] Standards of Medical Care in Diabetes 2016, [place] [employer]. Diabetes Care. 2016.39(Suppl 1). Performed By: #### 2 4321-2 #### [facility] CLIA [id number] [address] [place] [address] [place] Potassium [Moles/Vol] 4.5 mmol/L Normal 3.7-5.1 [facility] Comment on above: Order Comment: Speci men Type: BLOOD SPECIMEN Ordering Facility: [facility] Address: [address] [place] [address] Performed By: #### 2 4321-2 #### [facility] CLIA [id number] [address] Sodium [Moles/Vol] 140 mmol/L Normal 136-144 [facility] Comment on above: Order Comment: Speci men Type: BLOOD SPECIMEN Ordering Facility: [facility] Address: [address] [place] [address] Performed By: #### 2 4321-2 #### [facility] CLIA [id number] [address] [place] Urea nitrogen [Mass/Vol] 70 mg/dL High 9-24 [facility] [facility] Comment on above: Order Comment: Rosii men Type: BLOOD SPECIMEN Ordering Facility: [facility] Address: [address] [place] [address] Performed By: #### 2 4321-2 #### [facility] CLIA [id number] [address] [place] CBC panel Auto (Bld)on 05-04 Erythrocyte distribution width (RBC) [Ratio] 13.1 % 11.5 - 15.0 % [facility] Hematocrit (Bld) [Volume fraction] 45.2 % 39.0 - 51.0 % [facility] Hemoglobin (Bld) [Mass/Vol] 14.1 g/dL 13.0 - 17.0 g/dL [facility] Interpretation and review of laboratory results Abnormal [facility] MCH (RBC) [Entitic mass] 34.2 pg High 26.0 - 34.0 pg [facility] MCHC (RBC) [Mass/Vol] 31.2 g/dL 30.5 - 36.0 g/dL [facility] MCV (RBC) [Entitic vol] 109.7 fL High 80.0 - 100.0 fL [facility] Nucleated RBC (Bld) [#/Vol] NINF [facility] Platelet mean volume (Bld) [Entitic vol] 10.5 fL 9.0 - 12.7 fL [facility] Platelets (Bld) [#/Vol] 373 10*3/uL [facility] RBC (Bld) [#/Vol] 4.12 10*6/uL Low 4.20 - 6.0 0 m/uL [facility] WBC (Bld) [#/Vol] 7.19 10*3/uL [facility] Erythrocyte distribution width (RBC) [Ratio] 13.1 % Normal 11.5-15.0 [facility] Comment on above: Order Comment: Speci men Type: BLOOD SPECIMEN Ordering Facility: [facility] Address: [address] [place] [address] Performed By: #### 5 8410-2 #### [facility] CLIA [id number] [address] STATES OF [facility] Hematocrit (Bld) [Volume fraction] 45.2 % Normal 39.0-51.0 [facility] Comment on above: Order Comment: Speci men Type: BLOOD SPECIMEN Ordering Facility: [facility] Address: [address] [place] [address] Performed By: #### 5 8410-2 #### [facility] CLIA [id number] [address] [place] [address] [place] Hemoglobin (Bld) [Mass/Vol] 14.1 g/dL Normal 13.0-17.0 [facility] Comment on above: Order Comment: Speci men Type: BLOOD SPECIMEN Ordering Facility: [facility] Address: [address] [place] [address] Performed By: #### 5 8410-2 #### [facility] CLIA [id number] [address] [place] [address] [place] MCH (RBC) [Entitic mass] 34.2 pg High 26.0-34.0 [facility] Comment on above: Order Comment: Speci men Type: BLOOD SPECIMEN Ordering Facility: [facility] Address: [address] [place] [address] Performed By: #### 5 8410-2 #### [facility] CLIA [id number] [address] [place] MCHC (RBC) [Mass/Vol] 31.2 g/dL Normal 30.5-36.0 [facility] Comment on above: Order Comment: Speci men Type: BLOOD SPECIMEN Ordering Facility: [facility] Address: [address] [place] [address] Performed By: #### 5 8410-2 #### [facility] CLIA [id number] [address] [place] [address] [place] MCV (RBC) [Entitic vol] 109.7 fL High 80.0-100.0 [facility] Comment on above: Order Comment: Speci men Type: BLOOD SPECIMEN Ordering Facility: [facility] Address: [address] [place] [address] Performed By: #### 5 8410-2 #### [facility] CLIA [id number] [address] [place] [address] [place] Nucleated RBC (Bld) [#/Vol] 10*3/uL Normal <0.01 [facility] Comment on above: Order Comment: Speci men Type: BLOOD SPECIMEN Ordering Facility: [facility] Address: [address] [place] [address] Performed By: #### 5 8410-2 #### [facility] CLIA [id number] [address] [place] [address] [place] Platelet mean volume (Bld) [Entitic vol] 10.5 fL Normal 9.0-12.7 [facility] Comment on above: Order Comment: Speci men Type: BLOOD SPECIMEN Ordering Facility: [facility] Address: [address] [place] [address] Performed By: #### 5 8410-2 #### [facility] CLIA [id number] [address] [place] [address] [place] Platelets (Bld) [#/Vol] 373 10*3/uL Normal 150-400 [facility] Comment on above: Order Comment: Speci men Type: BLOOD SPECIMEN Ordering Facility: [facility] Address: [address] [place] [address] Performed By: #### 5 8410-2 #### [facility] CLIA [id number] [address] [place] [address] [place] RBC (Bld) [#/Vol] 4.12 10*6/uL Low 4.20-6.00 [facility] Comment on above: Order Comment: Speci men Type: BLOOD SPECIMEN Ordering Facility: [facility] Address: [address] [place] [address] Performed By: #### 5 8410-2 #### [facility] CLIA [id number] [address] [place] [address] [place] WBC (Bld) [#/Vol] 7.19 10*3/uL Normal 3.70-11.00 [facility] Comment on above: Order Comment: Speci men Type: BLOOD SPECIMEN Ordering Facility: [facility] Address: [address] [place] [address] Performed By: #### 5 8410-2 #### [facility] CLIA [id number] [address] [place] [address] [place] Basic metabolic 2000 panelon 04-29-2024 Anion gap [Moles/Vol] 11 mmol/L Normal 8-15 [facility] Comment on above: Order Comment: Speci men Type: BLOOD SPECIMENOrdering Facility: [facility] Address: [address] [place] [address] Performed By: #### 2 4321-2 ####[facility] [id number] [place] [address] [place] Calcium [Mass/Vol] 9.4 mg/dL Normal 8.5-10.2 [facility] Comment on above: Order Comment: Speci men Type: BLOOD SPECIMENOrdering Facility: [facility] Address: [address] [place] [address] Performed By: #### 2 4321-2 ####[facility]IA [id number] [place] [address] [place] Chloride [Moles/Vol] 102 mmol/L Normal 98-107 [facility] Comment on above: Order Comment: Speci men Type: BLOOD SPECIMENOrdering Facility: [facility] Address: [address] [place] [address] Performed By: #### 2 4321-2 ####[facility]ORY[facility]IA [id number] [place] [id number] [place] CO2 [Moles/Vol] 26 mmol/L Normal 22-30 [facility] Comment on above: Order Comment: Speci men Type: BLOOD SPECIMENOrdering Facility: [facility] Address: [address] [place] [address] Performed By: #### 2 4321-2 ####[facility] [id number] [address] [place] Creatinine [Mass/Vol] 1.42 mg/dL High 0.73-1.22 [facility] Comment on above: Order Comment: Speci men Type: BLOOD SPECIMENOrdering Facility: [facility] Address: [address] [place] [address] Performed By: #### 2 4321-2 ####[facility]ORYCLIA [id number] [address] Creatinine and Glomerular filtration rate.predicted panel (S/P/Bld) 52 mL/min/1.73m??? Low >=60 [facility] Comment on above: Order Comment: Speci men Type: BLOOD SPECIMENOrdering Facility: [facility] Address: [address] [place] [address] Result Comment: Bianca mated Glomerular Filtration Rate [...] actual GFR. Performed By: #### 2 4321-2 ####[facility]ORYCLIA [id number] [address] [place] [facility] Glucose [Mass/Vol] 92 mg/dL Normal 74-99 [facility] Comment on above: Order Comment: Speci men Type: BLOOD SPECIMENOrdering Facility: [facility] Address: [address] [place] [address] Result Comment: The [place] Diabetes Association (ADA) provides guidance for cutoff [...] Standards of Medical Care in Diabetes 2016, [place] [employer]. Diabetes Care. 2016.39(Suppl 1). Performed By: #### 2 4321-2 ####[facility]ORYCLIA [id number] [place] [address] [place] Potassium [Moles/Vol] Normal [facility] Comment on above: Order Comment: Speci men Type: BLOOD SPECIMENOrdering Facility: [facility] Address: [address] [place] [address] Result Comment: Unab le to assay due to interference from hemolysis. Suggest reorder as clinically indicated. Performed By: #### 2 4321-2 ####[facility]ORYCLIA [id number] [place] [address] [place] Sodium [Moles/Vol] 139 mmol/L Normal 136-144 [facility] Comment on above: Order Comment: Speci men Type: BLOOD SPECIMENOrdering Facility: [facility] Address: [address] [place] [id number] Performed By: #### 2 4321-2 ####[facility]ORYCLIA [id number] [place] [address] [place] Urea nitrogen [Mass/Vol] 56 mg/dL High 9-24 [facility] Comment on above: Order Comment: Speci men Type: BLOOD SPECIMENOrdering Facility: [facility] Address: [address] [place] [address] Performed By: #### 2 4321-2 ####[facility]ORYCLIA [id number] [address] [place] CASE MANAGEMon 04-29-2024 CASE MANAGEM HNO ID: [id number] Author: GHASSAN MENDIETA RN Service: ? Author Type: Registered Nurse Type: Care Mgt Progress Note Filed: 04/29/2024 09:04 Note Text: CARE MANAGEMENT PROGRESS NOTE SERVICE DATE: 04/29/2024 SERVICE TIME: 9:03 AM LOS: 13 days Chart reviewed. Insurance precert is pending for [facility]. Will need precert and cot transport. Daughter Lindsay will need updated. Spouse has been in and out of [facility] and [facility] last several weeks and was back in ED yesterday per daughter. CM to follow for transitional care planning. SIGNATURE: Ghassan Mendieta RN PATIENT NAME: Jonathon Perales DATE: April 29, 2024 TIME: 9:03 AM PAGER/CONTACT #: [phone] Normal [facility] CBC panel Auto (Bld)on 04-29 Erythrocyte distribution width (RBC) [Ratio] 12.8 % Normal 11.5-15.0 [facility] Comment on above: Order Comment: Speci men Type: BLOOD SPECIMENOrdering Facility: [facility] Address: [address] [place] [address] Performed By: #### 5 8410-2 ####[facility]ORYCLIA [id number] [address] [place] Hematocrit (Bld) [Volume fraction] 39.1 % Normal 39.0-51.0 [facility] Comment on above: Order Comment: Speci men Type: BLOOD SPECIMENOrdering Facility: [facility] Address: [address] [place] [address] Performed By: #### 5 8410-2 ####[facility]ORYCLIA [id number] [place] [address] [place] Hemoglobin (Bld) [Mass/Vol] 13.2 g/dL Normal 13.0-17.0 [facility] Comment on above: Order Comment: Speci men Type: BLOOD SPECIMENOrdering Facility: [facility] Address: [address] [place] [address] Performed By: #### 5 8410-2 ####[facility]ORYCLIA [id number] [address] MCH (RBC) [Entitic mass] 34.6 pg High 26.0-34.0 [facility] Comment on above: Order Comment: Speci men Type: BLOOD SPECIMENOrdering Facility: [facility] Address: [address] [place] [address] Performed By: #### 5 8410-2 ####[facility]ORYCLIA [id number] [address] MCHC (RBC) [Mass/Vol] 33.8 g/dL Normal 30.5-36.0 [facility] Comment on above: Order Comment: Speci men Type: BLOOD SPECIMENOrdering Facility: [facility] Address: [address] [place] [address] Performed By: #### 5 8410-2 ####[facility]ORYCLIA [id number] [address] MCV (RBC) [Entitic vol] 102.4 fL High 80.0-100.0 [facility] Comment on above: Order Comment: Speci men Type: BLOOD SPECIMENOrdering Facility: [facility] Address: [address] [place] [address] Performed By: #### 5 8410-2 ####[facility]ORYCLIA [id number] [address] Nucleated RBC (Bld) [#/Vol] 10*3/uL Normal <0.01 [facility] Comment on above: Order Comment: Speci men Type: BLOOD SPECIMENOrdering Facility: [facility] Address: [address] [place] [address] Performed By: #### 5 8410-2 ####[facility]ORYCLIA [id number] [address] Platelet mean volume (Bld) [Entitic vol] 10.0 fL Normal 9.0-12.7 [facility] Comment on above: Order Comment: Speci men Type: BLOOD SPECIMENOrdering Facility: [facility] Address: [address] [place] [address] Performed By: #### 5 8410-2 ####[facility]ORYCLIA [id number] [address] [place] Platelets (Bld) [#/Vol] 378 10*3/uL Normal 150-400 [facility] Comment on above: Order Comment: Speci men Type: BLOOD SPECIMENOrdering Facility: [facility] Address: [address] [place] [address] Performed By: #### 5 8410-2 ####[facility]ORYCLIA [id number] [address] OF [facility] RBC (Bld) [#/Vol] 3.82 10*6/uL Low 4.20-6.00 [facility] Comment on above: Order Comment: Speci men Type: BLOOD SPECIMENOrdering Facility: [facility] Address: [address] [place] [address] Performed By: #### 5 8410-2 ####[facility]ORYCLIA [id number] [address] [place] WBC (Bld) [#/Vol] 10.25 10*3/uL Normal 3.70-11.00 [facility] Comment on above: Order Comment: Speci men Type: BLOOD SPECIMENOrdering Facility: [facility] Address: [address] [place] [address] Performed By: #### 5 8410-2 ####[facility]ORYCLIA [id number] [address] NUTRITIONon 04-29-2024 NUTRITION HNO ID: [id number] Author: RAIZA HARRISON RD Service: Nutrition Therapy [...] Weight Type: Current weight Estimated kilocalorie needs: 2819-4415 Calorie Calculation Method: 25-30 kcals/kg Estimated protein [...] April 29, 2024 TIME: 10:05 AM Normal [facility] Basic metabolic 2000 panelon 04-28-2024 Anion gap [Moles/Vol] 13 mmol/L Normal 8-15 [facility] Comment on above: Order Comment: Speci men Type: BLOOD SPECIMENOrdering Facility: [facility] Address: [address] [place] [address] Performed By: #### 1 9123-9, 2777-1, 91535-7 ####[facility]ORYCLIA [id number] [place] [address] [place] Calcium [Mass/Vol] 10.7 mg/dL High 8.5-10.2 [facility] Comment on above: Order Comment: Speci men Type: BLOOD SPECIMENOrdering Facility: [facility] Address: [address] [place] [address] Performed By: #### 1 9123-9, 2777, 18516-8 ####[facility]ORYCLIA [id number] [place] [address] [place] Chloride [Moles/Vol] 101 mmol/L Normal 98-107 [facility] Comment on above: Order Comment: Speci men Type: BLOOD SPECIMENOrdering Facility: [facility] Address: [address] [place] [address] Performed By: #### 1 9123-9, 27705-18, 36330-1 ####[facility]ORYCLIA [id number] [place] [address] [place] CO2 [Moles/Vol] 26 mmol/L Normal 22-30 [facility] Comment on above: Order Comment: Speci men Type: BLOOD SPECIMENOrdering Facility: [facility] Address: [address] [place] [address] Performed By: #### 1 9123-9, 27705-18, ####[facility]ORYCLIA [id number] [address] [place] Creatinine [Mass/Vol] 1.36 mg/dL High 0.73-1.22 [facility] Comment on above: Order Comment: Speci men Type: BLOOD SPECIMENOrdering Facility: [facility] Address: [address] [place] [address] Performed By: #### 1 9123-9, 27705-18, 69324-2 ####[facility]ORYCLIA [id number] [address] Creatinine and Glomerular filtration rate.predicted panel (S/P/Bld) 55 mL/min/1.73m??? Low >=60 [facility] Comment on above: Order Comment: Speci men Type: BLOOD SPECIMENOrdering Facility: [facility] Address: [address] [place] [address] Result Comment: Bianca mated Glomerular Filtration Rate [...] GFR. Performed By: #### 1 9123-9, 2777-1, 28858-8 ####[facility]ORYCLIA [id number] [place] [address] [place] Glucose [Mass/Vol] 100 mg/dL High 74-99 [facility] Comment on above: Order Comment: Lyndsey eller Type: BLOOD SPECIMENOrdering Facility: [facility] Address: [address] [place] [address] Result Comment: The [place] Diabetes Association (ADA) provides guidance for cutoff [...] Standards of Medical Care in Diabetes 2016, [place] [employer]. Diabetes Care. 2016.39(Suppl 1). Performed By: #### 1 9123-9, 2777-, 49785-2 ####[facility]ORYCLIA [id number] [place] [address] [place] Potassium [Moles/Vol] 4.8 mmol/L Normal 3.7-5.1 [facility] Comment on above: Order Comment: Lyndsey eller Type: BLOOD SPECIMENOrdering Facility: [facility] Address: [address] [place] [address] Performed By: #### 1 9123-9, 2777-, 14153-9 ####[facility]ORYCLIA [id number] [place] [address] [place] Sodium [Moles/Vol] 140 mmol/L Normal 136-144 [facility] Comment on above: Order Comment: Speci men Type: BLOOD SPECIMENOrdering Facility: [facility] Address: [address] [place] [address] Performed By: #### 1 9123-9, 2777-1, 60914-1 ####[facility]ORYCLIA [id number] [place] [address] [place] Urea nitrogen [Mass/Vol] 45 mg/dL High 9-24 [facility] Comment on above: Order Comment: Speci men Type: BLOOD SPECIMENOrdering Facility: [facility] Address: [address] [place] [address] Performed By: #### 1 9123-9, 2777-, 56024-2 ####[facility]ORYCLIA [id number] [place] [id number] [facility] [place] CASE MANAGEMon 04-28-2024 CASE MANAGEM HNO ID: [id number] Author: GHASSAN MENDIETA RN Service: ? Author Type: Registered Nurse Type: Care Mgt Progress Note Filed: 04/28/2024 11:26 Note Text: CARE MANAGEMENT PROGRESS NOTE SERVICE DATE: 04/28/2024 SERVICE TIME: 11:18 AM LOS: 12 days Spoke with daughter Lindsay via phone. [facility] patient and will be starting precert once OT notes are updated. [facility] Passed MBSS and has diet with Corpak removed. Will need precert and cot transport. Per daughter, patient's spouse is now back in [facility] ED for seizure and UTI after recent inpatient stay with spouse's discharge to [facility]. CM to follow for transitional care planning. SIGNATURE: Ghassan Mendieta RN PATIENT NAME: Jonathon Perales DATE: April 28, 2024 TIME: 11:18 AM PAGER/CONTACT #: [phone] Normal [facility] CBC panel Auto (Bld)on 04-28 Erythrocyte distribution width (RBC) [Ratio] 12.2 % Normal 11.5-15.0 [facility] Comment on above: Order Comment: Speci men Type: BLOOD SPECIMENOrdering Facility: [facility] Address: [address] [place] [address] Performed By: #### 5 8410-2 ####[facility]ORYCLIA [id number] [address] OF [facility] Hematocrit (Bld) [Volume fraction] 45.4 % Normal 39.0-51.0 [facility] Comment on above: Order Comment: Speci men Type: BLOOD SPECIMENOrdering Facility: [facility] Address: [address] [place] [address] Performed By: #### 5 8410-2 ####[facility]ORYCLIA [id number] [address] [facility] Hemoglobin (Bld) [Mass/Vol] 15.6 g/dL Normal 13.0-17.0 [facility] Comment on above: Order Comment: Speci men Type: BLOOD SPECIMENOrdering Facility: [facility] Address: [address] [place] [address] Performed By: #### 5 8410-2 ####[facility]ORYCLIA [id number] [address] [place] MCH (RBC) [Entitic mass] 34.7 pg High 26.0-34.0 [facility] Comment on above: Order Comment: Speci men Type: BLOOD SPECIMENOrdering Facility: [facility] Address: [address] [place] [address] Performed By: #### 5 8410-2 ####[facility]ORYCLIA [id number] [address] [place] MCHC (RBC) [Mass/Vol] 34.4 g/dL Normal 30.5-36.0 [facility] Comment on above: Order Comment: Speci men Type: BLOOD SPECIMENOrdering Facility: [facility] Address: [address] [place] [address] Performed By: #### 5 8410-2 ####[facility]ORYCLIA [id number] [address] MCV (RBC) [Entitic vol] 101.1 fL High 80.0-100.0 [facility] Comment on above: Order Comment: Speci men Type: BLOOD SPECIMENOrdering Facility: [facility] Address: [address] [place] [address] Performed By: #### 5 8410-2 ####[facility]ORYCLIA [id number] [address] [place] Nucleated RBC (Bld) [#/Vol] 10*3/uL Normal <0.01 [facility] Comment on above: Order Comment: Speci men Type: BLOOD SPECIMENOrdering Facility: [facility] Address: [address] [place] [address] Performed By: #### 5 8410-2 ####[facility]ORYCLIA [id number] [address] Platelet mean volume (Bld) [Entitic vol] 9.7 fL Normal 9.0-12.7 [facility] Comment on above: Order Comment: Speci men Type: BLOOD SPECIMENOrdering Facility: [facility] Address: [address] [place] [address] Performed By: #### 5 8410-2 ####[facility]ORYCLIA [id number] [address] Platelets (Bld) [#/Vol] 554 10*3/uL High 150-400 [facility] Comment on above: Order Comment: Speci men Type: BLOOD SPECIMENOrdering Facility: [facility] Address: [facility] [place] [address] Performed By: #### 5 8410-2 ####[facility]ORYCLIA [id number] [address] [place] RBC (Bld) [#/Vol] 4.49 10*6/uL Normal 4.20-6.00 [facility] Comment on above: Order Comment: Speci men Type: BLOOD SPECIMENOrdering Facility: [facility] Address: [address] [place] [address] Performed By: #### 5 8410-2 ####[facility]ORYCLIA [id number] [place] [address] [place] WBC (Bld) [#/Vol] 13.12 10*3/uL High 3.70-11.00 [facility] Comment on above: Order Comment: Speci men Type: BLOOD SPECIMENOrdering Facility: [facility] Address: [address] [place] [address] Performed By: #### 5 8410-2 ####[facility]ORYCLIA [id number] [address] [place] Magnesium SerPl-mCncon 04-28 Magnesium [Mass/Vol] 2.8 mg/dL High 1.7-2.3 [facility] [facility] Comment on above: Order Comment: Speci men Type: BLOOD SPECIMENOrdering Facility: [facility] Address: [address] [place] [address] Performed By: #### 1 9123-9, 2777-1, 41285-4 ####[facility] LABORATORYCLIA [id number] [address] [place] Phosphate SerPl-mCncon 04-28 Phosphate [Mass/Vol] 5.0 mg/dL High 2.7-4.8 [facility] Comment on above: Order Comment: Speci men Type: BLOOD SPECIMENOrdering Facility: [facility] Address: [address] [place] [address] Performed By: #### 1 9123-9, 2777-1, 78781-1 ####[facility] LABORATORYCLIA [id number] [address] [place] THERAPY NTon 04-28-2024 THERAPY NT HNO ID: [id number] Author: TRAV MCARTHUR OTR/L Service: Occupational Therapy Author Type: Occupational Therapist Type: Therapy (PT/OT/Speech/Resp) Filed: 04/28/2024 12:12 Note Text: Occupational Therapy Treatment Summary SERVICE DATE: 04/28/2024 SERVICE TIME: 956 to 0 ROOM: [id number] OT 6 Clicks Score: 14 DISCHARGE RECOMMENDATIONS [...] Cognitive Functions and Awareness TREATMENT INTERVENTIONS Self Skilled Nursing Management (78039) Timed Code Treatment (minutes): 33 Skilled Treatment Time (minutes): 33 Self Skilled Nursing Management (61086) Treatment Minutes: 33 $ Self Skilled Nursing Management (26721) Billed Units: 2 units TRAINING AND EDUCATION PROVIDED Bed Mobility, Benefits of In-Hospital Mobility, Command Following, Expected Functional Level, Grooming Tasks, Functional Mobility Involving ADLs, Lower Extremity Dressing, Role of Occupational Therapy, Positioning, Lower Extremity Bathing, Transfer - Sit to Stand, Upper Extremity Bathing, Upper Extremity Dressing, Memory/Attention, Orientation, Sitting Balance to Improve [place] with ADLs/Self-Care, Toileting , Standing Balance to Improve [place] with ADLs/Self-Care THERAPEUTIC SKILLS USED Activity Dosing, Cues for Sequencing/Proper Technique for Activity, Assessment of Tolerance Including Vitals Response to Activity, Cuing Tactile, Cuing Verbal, Cuing Visual, Physical Assist, Therapeutic Use of Self FUNCTIONAL STATUS Activities of Daily Living Assist Level Additional Information Feeding Minimal Assistance Nestorrack pulled at beginning of OT session. Assist [...] and c (more content not included)... Normal [facility] Basic metabolic 2000 panelon 04-27-2024 Anion gap [Moles/Vol] 11 mmol/L Normal 8-15 [facility] Comment on above: Order Comment: Speci men Type: BLOOD SPECIMENOrdering Facility: [facility] Address: [address] [place] [address] Performed By: #### 2 4321-2 ####[facility] LABORATORYCLIA [id number] [place] [address] [place] Calcium [Mass/Vol] 10.3 mg/dL High 8.5-10.2 [facility] Comment on above: Order Comment: Speci men Type: BLOOD SPECIMENOrdering Facility: [facility] Address: [address] [place] [address] Performed By: #### 2 4321-2 ####[facility] LABORATORYCLIA [id number] [place] [address] [place] Chloride [Moles/Vol] 97 mmol/L Low 98-107 [facility] Comment on above: Order Comment: Speci men Type: BLOOD SPECIMENOrdering Facility: [facility] Address: [address] [place] [address] Performed By: #### 2 4321-2 ####[facility]ORATORYCLIA [id number] [address] STATES OF [facility] CO2 [Moles/Vol] 27 mmol/L Normal 22-30 [facility] Comment on above: Order Comment: Speci men Type: BLOOD SPECIMENOrdering Facility: [facility] Address: [address] [place] [address] Performed By: #### 2 4321-2 ####[facility]ORATORYCLIA [id number] [address] [place] Creatinine [Mass/Vol] 1.04 mg/dL Normal 0.73-1.22 [facility] Comment on above: Order Comment: Speci men Type: BLOOD SPECIMENOrdering Facility: [facility] Address: [address] [place] [address] Performed By: #### 2 4321-2 ####[facility]ORATORYCLIA [id number] [address] Creatinine and Glomerular filtration rate.predicted panel (S/P/Bld) 75 mL/min/1.73m??? Normal >=60 [facility] Comment on above: Order Comment: Speci men Type: BLOOD SPECIMENOrdering Facility: [facility] Address: [address] [place] [address] Result Comment: Bianca mated Glomerular Filtration Rate [...] actual GFR. Performed By: #### 2 4321-2 ####[facility]ORATORYCLIA [id number] [place] [address] [place] Glucose [Mass/Vol] 134 mg/dL High 74-99 [facility] Comment on above: Order Comment: Lyndsey eller Type: BLOOD SPECIMENOrdering Facility: [facility] Address: [address] [place] [address] Result Comment: The [place] Diabetes Association (ADA) provides guidance for cutoff [...] Standards of Medical Care in Diabetes 2016, [place] [employer]. Diabetes Care. 2016.39(Suppl 1). Performed By: #### 2 4321-2 ####[facility]ORATORYCLIA [id number] [place] [address] [place] Potassium [Moles/Vol] 4.6 mmol/L Normal 3.7-5.1 [facility] Comment on above: Order Comment: Lyndsey eller Type: BLOOD SPECIMENOrdering Facility: [facility] Address: [address] [address] Performed By: #### 2 4321-2 ####[facility]ORATORYCLIA [id number] [place] [address] [place] [facility] Sodium [Moles/Vol] 135 mmol/L Low 136-144 [facility] Comment on above: Order Comment: Speci men Type: BLOOD SPECIMENOrdering Facility: [facility] Address: [address] [place], [place] [address] Performed By: #### 2 4321-2 ####[facility]ORATORYCLIA [id number] [place] [address] [place] [facility] Urea nitrogen [Mass/Vol] 33 mg/dL High 9-24 [facility] Comment on above: Order Comment: Speci men Type: BLOOD SPECIMENOrdering Facility: [facility] Address: [address] [place] [address] Performed By: #### 2 4321-2 ####[facility]ORATORYCLIA [id number] [place] [address] [facility] CASE MANAGEMon 04-27-2024 CASE MANAGEM HNO ID: [id number] Author: GHASSAN MENDIETA RN Service: ? Author [...] patient's insurance is out of network. [facility] is not able to accept due to patient does not meet LTACH criteria. Will need nutrition plan, restraint/sitter-free, accepting Acute Rehab, precert, and cot transport. Patient's spouse was recently patient at [facility] and discharged to [facility]. Daughter states that the eventual plan is for patient to be in same room as spouse at [facility]. CM to follow for transitional care planning. SIGNATURE: Ghassan Mendieta RN PATIENT NAME: Jonathon Perales DATE: April 27, 2024 TIME: 1:32 PM PAGER/CONTACT #: [phone] Normal [facility] THERAPY NTon 04-27-2024 THERAPY NT HNO ID: [id number] Author: JL PERAZA CCC-WARP KNITTER Service: Speech/Swallow Author Type: Speech Language Pathologist Type: Therapy (PT/OT/Speech/Resp) Filed: 04/27/2024 15:17 Note Text: Speech Therapy Modified Barium Swallow Study Evaluation SERVICE DATE: 04/27/2024 SERVICE TIME: 1430 to 1450 ROOM: [place] [address] ([facility]/ [facility]) IMPRESSION: Evidence of: Oropharyngeal dysphagia Diet Recommendations: Pureed IDDSI Level 4 Mildly Thick Liquids IDDSI Level 2 ([place] Thick) Medications crushed in puree (pudding/applesauce) Swallowing [...] Consistencies Provided: Thin Liquids, Mildly Thick Liquids ([place] Thick), Pureed Solids Oral Phase: Lip Closure: [...] valleculae following (more content not included)... Normal [facility] THERAPY NT HNO ID: [id number] Author: COLLETTE QUIROS PTA Service: Physical Therapy Author Type: Information Director Type: Therapy (PT/OT/Speech/Resp) Filed: 04/27/2024 09:31 Note Text: Attestation signed by Robby Hawley, PT at 04/27/2024 4:24 PM I reviewed and agree with the documentation corresponding to this therapy visit. SIGNATURE: Robby Hawley PT DATE: April 27, 2024 TIME: 4:24 PM Physical Therapy Treatment Summary SERVICE DATE: 04/27/2024 SERVICE TIME: 857 to 920 ROOM: [id number] PT 6 Clicks Score: 12 DISCHARGE RECOMMENDATIONS [...] gait, Ataxic gait TREATMENT INTERVENTIONS Therapeutic Activity (37756) Therapeutic Activity (45894) Treatment Minutes: 23 $ Therapeutic Activity (07524) Billed Units: 2 units Patient completed BLE [...] /assist to scoot forward, RUE on this BOWLING BALL FINISHER, powering up with LEs Stand To Sit: [...] Decreased, Path (more content not included)... Normal [facility] Basic metabolic 2000 panelon 04-26-2024 Anion gap [Moles/Vol] 12 mmol/L Normal 8-15 [facility] Comment on above: Order Comment: Speci men Type: BLOOD SPECIMENOrdering Facility: [facility] Address: [address] [place] [address] Performed By: #### 2 4321-2 ####[facility]ORATORYCLIA [id number] [place] [address] [place] Calcium [Mass/Vol] 10.3 mg/dL High 8.5-10.2 [facility] Comment on above: Order Comment: Speci men Type: BLOOD SPECIMENOrdering Facility: [facility] Address: [address] [place] [address] Performed By: #### 2 1-2 ####[facility]ORATORYCLIA [id number] [place] [address] [place] Chloride [Moles/Vol] 98 mmol/L Normal 98-107 [facility] Comment on above: Order Comment: Speci men Type: BLOOD SPECIMENOrdering Facility: [facility] Address: [address] [place] [address] Performed By: #### 2 1-2 ####[facility]ORATORYCLIA [id number] [place] [address] [place] CO2 [Moles/Vol] 26 mmol/L Normal 22-30 [facility] Comment on above: Order Comment: Speci men Type: BLOOD SPECIMENOrdering Facility: [facility] Address: [address] [place] [address] Performed By: #### 2 4321-2 ####[facility]ORATORYCLIA [id number] [place] [address] [place] Creatinine [Mass/Vol] 1.05 mg/dL Normal 0.73-1.22 [facility] Comment on above: Order Comment: Lyndsey eller Type: BLOOD SPECIMENOrdering Facility: [facility] Address: [address] [place] [address] Performed By: #### 2 4321-2 ####[facility]ORATORYCLIA [id number] [address] [facility] Creatinine and Glomerular filtration rate.predicted panel (S/P/Bld) 74 mL/min/1.73m??? Normal >=60 [facility] Comment on above: Order Comment: Lyndsey eller Type: BLOOD SPECIMENOrdering Facility: [facility] Address: [address] [place] [address] Result Comment: Bianca mated Glomerular Filtration Rate [...] actual GFR. Performed By: #### 2 4321-2 ####[facility]ORATORYCLIA [id number] [address] [place] Glucose [Mass/Vol] 129 mg/dL High 74-99 [facility] Comment on above: Order Comment: Lyndsey eller Type: BLOOD SPECIMENOrdering Facility: [facility] Address: [address] [place] [address] Result Comment: The [place] Diabetes Association (ADA) provides guidance for cutoff [...] Standards of Medical Care in Diabetes 2016, [place] Diabetes [employer]. Diabetes Care. 2016.39(Suppl 1). Performed By: #### 2 4321-2 ####[facility]ATORYCLIA [id number] [address] [place] [facility] Potassium [Moles/Vol] 4.7 mmol/L Normal 3.7-5.1 [facility] Comment on above: Order Comment: Speci men Type: BLOOD SPECIMENOrdering Facility: [facility] Address: [address] [place] [address] Performed By: #### 2 4321-2 ####[facility]ATORYCLIA [id number] [address] [place] [facility] Sodium [Moles/Vol] 136 mmol/L Normal 136-144 [facility] Comment on above: Order Comment: Speci men Type: BLOOD SPECIMENOrdering Facility: [facility] Address: [address] [place] [address] Performed By: #### 2 4321-2 ####[facility]ORATORYCLIA [id number] [place] [id number] [place] Urea nitrogen [Mass/Vol] 34 mg/dL High 9-24 [facility] Comment on above: Order Comment: Speci men Type: BLOOD SPECIMENOrdering Facility: [facility] Address: [address] [place] [address] Performed By: #### 2 4321-2 ####[facility]ORATORYCLIA [id number] [place] [id number] [facility] [place] THERAPY NTon 04-26-2024 THERAPY NT HNO ID: [id number] Author: JL PERAZA CCC-WARP KNITTER Service: Speech/Swallow Author Type: Speech Language Pathologist Type: Therapy (PT/OT/Speech/Resp) Filed: 04/26/2024 15:37 Note Text: Speech Therapy Treatment SERVICE DATE: 04/26/2024 SERVICE TIME: 1445 to 1500 ROOM: [place] [address] IMPRESSION: Swallow Deficits Identified / Suspected: Oropharyngeal [...] Presented: Mildly Thick Liquids IDDSI Level 2 ([place] Thick), Pureed IDDSI Level 4 Compensatory Strategies [...] see above (more content not included)... Normal [facility] Basic metabolic 2000 panelon 04-25-2024 Anion gap [Moles/Vol] 12 mmol/L Normal 8-15 [facility] Comment on above: Order Comment: Lyndsey eller Type: BLOOD SPECIMENOrdering Facility: [facility] Address: [address] [place] [address] Performed By: #### 2 4321-2 ####[facility]ORATORYCLIA [id number] [place] [address] [place] Calcium [Mass/Vol] 10.6 mg/dL High 8.5-10.2 [facility] Comment on above: Order Comment: Lyndsey eller Type: BLOOD SPECIMENOrdering Facility: [facility] Address: [address] [place] [address] Performed By: #### 2 4321-2 ####[facility]ORATORYCLIA [id number] [address] [place] Chloride [Moles/Vol] 98 mmol/L Normal 98-107 [facility] Comment on above: Order Comment: Speci men Type: BLOOD SPECIMENOrdering Facility: [facility] Address: [address] [place] [address] Performed By: #### 2 4321-2 ####[facility]ORATORYCLIA [id number] [address] [place] CO2 [Moles/Vol] 27 mmol/L Normal 22-30 [facility] Comment on above: Order Comment: Speci men Type: BLOOD SPECIMENOrdering Facility: [facility] Address: [address] [place] [address] Performed By: #### 2 4321-2 ####[facility]ORATORYCLIA [id number] [address] [facility] Creatinine [Mass/Vol] 1.05 mg/dL Normal 0.73-1.22 [facility] Comment on above: Order Comment: Speci men Type: BLOOD SPECIMENOrdering Facility: [facility] Address: [address] [place] [address] Performed By: #### 2 4321-2 ####[facility]ORATORYCLIA [id number] [address] Creatinine and Glomerular filtration rate.predicted panel (S/P/Bld) 74 mL/min/1.73m??? Normal >=60 [facility] Comment on above: Order Comment: Speci men Type: BLOOD SPECIMENOrdering Facility: [facility] Address: [address] [place] [address] Result Comment: Bianca mated Glomerular Filtration Rate [...] actual GFR. Performed By: #### 2 4321-2 ####[facility]ORATORYCLIA [id number] [place] [address] [place] Glucose [Mass/Vol] 104 mg/dL High 74-99 [facility] Comment on above: Order Comment: Lyndsey rafita Type: BLOOD SPECIMENOrdering Facility: [facility] Address: [address] [place] [address] Result Comment: The [place] Diabetes Association (ADA) provides guidance for cutoff [...] Standards of Medical Care in Diabetes 2016, [place] Diabetes Association. Diabetes Care. 2016.39(Suppl 1). Performed By: #### 2 4321-2 ####[facility]ORATORYCLIA [id number] [place] [address] [place] Potassium [Moles/Vol] 4.5 mmol/L Normal 3.7-5.1 [facility] Comment on above: Order Comment: Lyndsey rafita Type: BLOOD SPECIMENOrdering Facility: [facility] Address: [address] [place] [address] Performed By: #### 2 4321-2 ####[facility]ATORYCLIA [id number] [place] [address] [place] Sodium [Moles/Vol] 137 mmol/L Normal 136-144 [facility] Comment on above: Order Comment: Lyndsey rafita Type: BLOOD SPECIMENOrdering Facility: [facility] Address: [address] [place] [address] Performed By: #### 2 4321-2 ####[facility]ATORYCLIA [id number] [place] [address] [place] Urea nitrogen [Mass/Vol] 37 mg/dL High 9-24 [facility] Comment on above: Order Comment: Speci men Type: BLOOD SPECIMENOrdering Facility: [facility] Address: [address] [place], [place] [address] Performed By: #### 2 4321-2 ####[facility]ORATORYCLIA [id number] [place] [address] [place] XR CHEST 1V FRONTALon 2023 XR CHEST [...] Other: None IMPRESSION: No acute radiographic abnormality. Public Health Doctor: PSCB Transcribe Date/Time: Apr 25 2024 12:42P Dictated by : VINCE HARRIS MD This examination was interpreted and the report reviewed and electronically signed by: VINCE HARRIS MD on Apr 25 2024 12:43PM EST [id number] Normal [facility] Basic metabolic 2000 panelon 04-24-2024 Anion gap [Moles/Vol] 11 mmol/L Normal 8-15 [facility] Comment on above: Order Comment: Speci men Type: BLOOD SPECIMENOrdering Facility: [facility] Address: [address] [place] [address] Performed By: #### 2 4321-2 ####[facility]ORATORYCLIA [id number] [place] [address] [place] Calcium [Mass/Vol] 9.8 mg/dL Normal 8.5-10.2 [facility] Comment on above: Order Comment: Speci men Type: BLOOD SPECIMENOrdering Facility: [facility] Address: [address] [place] [address] Performed By: #### 2 4321-2 ####[facility]ATORYCLIA [id number] [place] [id number] [place] Chloride [Moles/Vol] 102 mmol/L Normal 98-107 [facility] Comment on above: Order Comment: Speci men Type: BLOOD SPECIMENOrdering Facility: [facility] Address: [address] [place] [address] Performed By: #### 2 4321-2 ####[facility]ATORYCLIA [id number] [address] [place] CO2 [Moles/Vol] 23 mmol/L Normal 22-30 [facility] Comment on above: Order Comment: Speci men Type: BLOOD SPECIMENOrdering Facility: [facility] Address: [address] [place] [address] Performed By: #### 2 4321-2 ####[facility]ATORYCLIA [id number] [address] [place] [facility] Creatinine [Mass/Vol] 0.98 mg/dL Normal 0.73-1.22 [facility] Comment on above: Order Comment: Speci men Type: BLOOD SPECIMENOrdering Facility: [facility] Address: [address] [place] [address] Performed By: #### 2 4321-2 ####[facility]ATORYCLIA [id number] [address] Creatinine and Glomerular filtration rate.predicted panel (S/P/Bld) 81 mL/min/1.73m??? Normal >=60 [facility] Comment on above: Order Comment: Speci men Type: BLOOD SPECIMENOrdering Facility: [facility] Address: [address] [place] [address] Result Comment: Bianca mated Glomerular Filtration Rate [...] actual GFR. Performed By: #### 2 4321-2 ####[facility]ATORYCLIA [id number] [place] [address] [place] Glucose [Mass/Vol] 134 mg/dL High 74-99 [facility] Comment on above: Order Comment: Lyndsey eller Type: BLOOD SPECIMENOrdering Facility: [facility] Address: [address] [place] [address] Result Comment: The [place] Diabetes Association (ADA) provides guidance for cutoff [...] Standards of Medical Care in Diabetes 2016, [place] Diabetes Association. Diabetes Care. 2016.39(Suppl 1). Performed By: #### 2 4321-2 ####[facility]ATORYCLIA [id number] [place] [address] [place] Potassium [Moles/Vol] 4.4 mmol/L Normal 3.7-5.1 [facility] Comment on above: Order Comment: Lyndsey eller Type: BLOOD SPECIMENOrdering Facility: [facility] Address: [address] [place] [address] Performed By: #### 2 4321-2 ####[facility]ORYCLIA [id number] [place] [id number] [place] Sodium [Moles/Vol] 136 mmol/L Normal 136-144 [facility] Comment on above: Order Comment: Lyndsey eller Type: BLOOD SPECIMENOrdering Facility: [facility] Address: [address] [place] [id number] Performed By: #### 2 4321-2 ####[facility]ATORYCLIA [id number] [place] [address] [place] Urea nitrogen [Mass/Vol] 38 mg/dL High 9-24 [facility] Comment on above: Order Comment: Speci men Type: BLOOD SPECIMENOrdering Facility: [facility] Address: [address] [place], [place] [address] [address] Performed By: #### 2 4321-2 ####[facility]ORATORYCLIA [id number] [place] [address] [facility] CASE MANAGEMon 04-24-2024 CASE MANAGEM HNO ID: [id number] Author: GHASSAN MENDIETA RN Service: ? Author [...] out of network. CM sent referral to [facility] to see if patient may be appropriate for LTACH LOC pending response. CM has not discussed this with family yet until response is received. Daughter Lindsay will need updated. CM to follow for transitional care planning. SIGNATURE: Ghassan Mendieta RN PATIENT NAME: Jonathon Perales DATE: April 24, 2024 TIME: 2:57 PM PAGER/CONTACT #: [phone] Normal [facility] THERAPY NTon 04-24-2024 THERAPY NT HNO ID: [id number] Author: JL PERAZA CCC-WARP KNITTER Service: Speech/Swallow Author Type: Speech Language Pathologist Type: Therapy (PT/OT/Speech/Resp) Filed: 04/24/2024 11:37 Note Text: Speech Therapy Treatment SERVICE DATE: 04/24/2024 SERVICE TIME: 0948 to 1018 ROOM: [place] [address] IMPRESSION: Communication deficits identified: Expressive aphasia, Receptive [...] Presented: Mildly Thick Liquids IDDSI Level 2 ([place] Thick), Pureed IDDSI Level 4 Compensatory Strategies [...] demonstrate k (more content not included)... Normal [facility] Basic metabolic 2000 panelon 04-23-2024 Anion gap [Moles/Vol] 11 mmol/L Normal 8-15 [facility] Comment on above: Order Comment: Lyndsey eller Type: BLOOD SPECIMENOrdering Facility: [facility] Address: [address] [place] [address] Performed By: #### 2 4321-2 ####[facility] LABORATORYCLIA [id number] [place] [address] [place] Calcium [Mass/Vol] 10.1 mg/dL Normal 8.5-10.2 [facility] Comment on above: Order Comment: Specmarine eller Type: BLOOD SPECIMENOrdering Facility: [facility] Address: [address] [place] [address] Performed By: #### 2 4321-2 ####[facility] LABORATORYCLIA [id number] [address] [place] Chloride [Moles/Vol] 99 mmol/L Normal 98-107 [facility] Comment on above: Order Comment: Speci men Type: BLOOD SPECIMENOrdering Facility: [facility] Address: [address] [place] [address] Performed By: #### 2 4321-2 ####[facility] LABORATORYCLIA [id number] [address] STATES [facility] CO2 [Moles/Vol] 25 mmol/L Normal 22-30 [facility] Comment on above: Order Comment: Speci men Type: BLOOD SPECIMENOrdering Facility: [facility] Address: [address] [place] [address] Performed By: #### 2 4321-2 ####[facility] LABORATORYCLIA [id number] [address] [facility] Creatinine [Mass/Vol] 1.03 mg/dL Normal 0.73-1.22 [facility] Comment on above: Order Comment: Speci men Type: BLOOD SPECIMENOrdering Facility: [facility] Address: [address] [place] [address] Performed By: #### 2 4321-2 ####[facility] LABORATORYCLIA [id number] [address] Creatinine and Glomerular filtration rate.predicted panel (S/P/Bld) 76 mL/min/1.73m??? Normal >=60 [facility] Comment on above: Order Comment: Speci men Type: BLOOD SPECIMENOrdering Facility: [facility] Address: [address] [place] [address] Result Comment: Bianca mated Glomerular Filtration Rate [...] actual GFR. Performed By: #### 2 4321-2 ####[facility] LABORATORYCLIA [id number] [place] [address] [place] Glucose [Mass/Vol] 122 mg/dL High 74-99 [facility] Comment on above: Order Comment: Lyndsey rafita Type: BLOOD SPECIMENOrdering Facility: [facility] Address: [address] [place] [address] Result Comment: The [place] Diabetes Association (ADA) provides guidance for cutoff [...] Standards of Medical Care in Diabetes 2016, [place] [employer]. Diabetes Care. 2016.39(Suppl 1). Performed By: #### 2 4321-2 ####[facility] LABORATORYCLIA [id number] [place] [address] [place] Potassium [Moles/Vol] 4.4 mmol/L Normal 3.7-5.1 [facility] Comment on above: Order Comment: Lyndsey eller Type: BLOOD SPECIMENOrdering Facility: [facility] Address: [address] [place] [address] Performed By: #### 2 4321-2 ####[facility] LABORATORYCLIA [id number] [place] [id number] [place] Sodium [Moles/Vol] 135 mmol/L Low 136-144 [facility] Comment on above: Order Comment: Lyndsey rafita Type: BLOOD SPECIMENOrdering Facility: [facility] Address: [address] [place] [address] Performed By: #### 2 4321-2 ####[facility] LABORATORYCLIA [id number] [address] [place] Urea nitrogen [Mass/Vol] 39 mg/dL High 9-24 [facility] Comment on above: Order Comment: Speci men Type: BLOOD SPECIMENOrdering Facility: [facility] Address: [address] [place] [id number] Performed By: #### 2 4321-2 ####[facility] LABORATORYCLIA [id number] [place] [id number] [facility] CASE MANAGEMon 04-23-2024 CASE MANAGEM HNO ID: [id number] Author: LIMA SUMNER LISW Service: Social Work Author Type: Barking Machine Feeder Type: Care Mgt Progress Note Filed: 04/23/2024 16:08 Note Text: CARE MANAGEMENT PROGRESS NOTE SERVICE DATE: 04/23/2024 SERVICE TIME: 4:06 PM LOS: 7 days Stroke recovery Chart reviewed. Patient with restraints still and cortrak TF. Not appropriate for depression screening at this time. SIGNATURE: SHILPI Basilio PATIENT NAME: Jonathon Perales DATE: April 23, 2024 TIME: 4:06 PM PAGER/CONTACT #: [phone] [facility] CASE MANAGEM HNO ID: [id number] Author: GHASSAN MENDIETA RN Service: ? Author [...] patient's insurance is out of network. Daughter Lindsay will need updated. to follow for transitional care planning. SIGNATURE: Ghassan Mendieta RN PATIENT NAME: Jonathon Perales DATE: April 23, 2024 TIME: 11:44 AM PAGER/CONTACT #: [phone] [facility] CBC panel Auto (Bld)on 04-23 Erythrocyte distribution width (RBC) [Ratio] 11.7 % Normal 11.5-15.0 [facility] Comment on above: Order Comment: Speci men Type: BLOOD SPECIMENOrdering Facility: [facility] Address: [address] [place] [address] Performed By: #### 5 8410-2 ####[facility] LABORATORYCLIA [id number] [address] [facility] Hematocrit (Bld) [Volume fraction] 38.7 % Low 39.0-51.0 [facility] Comment on above: Order Comment: Speci men Type: BLOOD SPECIMENOrdering Facility: [facility] Address: [address] [place] [address] Performed By: #### 5 8410-2 ####[facility]ORATORYCLIA [id number] [address] [place] [facility] Hemoglobin (Bld) [Mass/Vol] 13.3 g/dL Normal 13.0-17.0 [facility] Comment on above: Order Comment: Speci men Type: BLOOD SPECIMENOrdering Facility: [facility] Address: [address] [place] [address] Performed By: #### 5 8410-2 ####[facility]ORATORYCLIA [id number] [address] [place] MCH (RBC) [Entitic mass] 34.8 pg High 26.0-34.0 [facility] Comment on above: Order Comment: Speci men Type: BLOOD SPECIMENOrdering Facility: [facility] Address: [address] [place] [address] Performed By: #### 5 8410-2 ####[facility]ORATORYCLIA [id number] [address] [place] MCHC (RBC) [Mass/Vol] 34.4 g/dL Normal 30.5-36.0 [facility] Comment on above: Order Comment: Speci men Type: BLOOD SPECIMENOrdering Facility: [facility] Address: [address] [place] [address] Performed By: #### 5 8410-2 ####[facility]ORATORYCLIA [id number] [place] [address] [place] MCV (RBC) [Entitic vol] 101.3 fL High 80.0-100.0 [facility] Comment on above: Order Comment: Speci men Type: BLOOD SPECIMENOrdering Facility: [facility] Address: [address] [place] [address] Performed By: #### 5 8410-2 ####[facility]ATORYCLIA [id number] [address] [place] Nucleated RBC (Bld) [#/Vol] 10*3/uL Normal <0.01 [facility] Comment on above: Order Comment: Speci men Type: BLOOD SPECIMENOrdering Facility: [facility] Address: [address] [place] [address] Performed By: #### 5 8410-2 ####[facility]ORATORYCLIA [id number] [address] [place] Platelet mean volume (Bld) [Entitic vol] 10.1 fL Normal 9.0-12.7 [facility] Comment on above: Order Comment: Speci men Type: BLOOD SPECIMENOrdering Facility: [facility] Address: [address] [place] [address] Performed By: #### 5 8410-2 ####[facility]ATORYCLIA [id number] [address] OF [place] Platelets (Bld) [#/Vol] 444 10*3/uL High 150-400 [facility] Comment on above: Order Comment: Speci men Type: BLOOD SPECIMENOrdering Facility: [facility] Address: [address] [place] [address] Performed By: #### 5 8410-2 ####[facility]ATORYCLIA [id number] [address] [place] RBC (Bld) [#/Vol] 3.82 10*6/uL Low 4.20-6.00 [facility] Comment on above: Order Comment: Speci men Type: BLOOD SPECIMENOrdering Facility: [facility] Address: [address] [place] [address] Performed By: #### 5 8410-2 ####[facility]ORATORYCLIA [id number] [place] [id number] [facility] WBC (Bld) [#/Vol] 10.73 10*3/uL Normal 3.70-11.00 [facility] Comment on above: Order Comment: Speci men Type: BLOOD SPECIMENOrdering Facility: [facility] Address: [address] [place] [address] Performed By: #### 5 8410-2 ####[facility]ORATORYCLIA [id number] [place] [address] [facility] NURSING PROGon 04-23-2024 NURSING PROG HNO ID: [id number] Author: CHIOMA ANTHONY RN Service: Nursing Author Type: Registered Nurse Type: Nursing Progress Note Filed: 04/23/2024 16:18 Note Text: Nursing Progress: Topic: RESTRAINT NON-VIOLENT PATIENT NAME: Jonathon Perales Patient Location: [place] [address] [address] 107- Room: [place] [address] The patient demonstrates Attempting to Remove Medical [...] 2024 TIME: 4:17 PM Chioma Anthony RN [facility] NUTRITIONon 04-23-2024 NUTRITION HNO ID: [id number] Author: RAIZA HARRISON RD Service: Nutrition Therapy Author Type: Registered Dietitian Type: Nutrition Filed: 04/23/2024 14:14 Note Text: NUTRITION THERAPY PROGRESS NOTE SERVICE DATE: 04/23/2024 SERVICE TIME: 1210 Nutrition Assessment: Recommended Malnutrition Diagnosis: Unable to Identify Malnutrition at this time (04/16/24 1240 : Don Dickson RD) Care Plan: No change in EN prescription [...] Weight Type: Current weight Estimated kilocalorie needs: 4044-1121 Calorie Calculation Method: 25-30 kcals/kg Estimated protein needs (grams): 82-109 Grams protein determined by: 1.2 - 1.6 g/kg Diet Orders (From admission, onward) Start Ordered 04/22/24 1345 DIET TUBE FEED - CONTIN (NO TRAY) START NOW Question Answer Comment TF Product (26 years and up) ISOSOURCE 1.5 [place] Approved Secondary TF Product (Do Not Change) [...] April 23, 2024 TIME: 10:06 AM Normal [facility] THERAPY NTon 04-23-2024 THERAPY NT HNO ID: [id number] Author: JL PERAZA CCC-WARP KNITTER Service: Speech/Swallow Author Type: Speech Language Pathologist Type: Therapy (PT/OT/Speech/Resp) Filed: 04/23/2024 16:18 Note Text: Speech Therapy Speech Evaluation Dysphagia Treatment SERVICE DATE: 04/23/2024 SERVICE TIME: 1500 to 1525 ROOM: [place] [address] IMPRESSION: Communication deficits identified: Expressive aphasia, Receptive aphasia, Dysarthria of speech, Cognitive deficits Swallow Deficits Identified / Suspected: Oropharyngeal dysphagia - currently has whitley. Diet Recommendations: NPO with alternative means of [...] 0, Mildly Thick Liquids IDDSI Level 2 ([place] Thick), Pureed IDDSI Level 4 Compensatory Strategies [...] via spoon (more content not included)... Normal [facility] THERAPY NT HNO ID: [id number] Author: ALBERTO LISA, PT Service: Physical Therapy Author Type: Physical Therapist Type: Therapy (PT/OT/Speech/Resp) Filed: 04/23/2024 15:53 Note Text: Physical Therapy Treatment Summary SERVICE DATE: 04/23/2024 SERVICE TIME: 1440 to 1503 ROOM: [id number] PT 6 Clicks Score: 13 DISCHARGE RECOMMENDATIONS [...] gait, Ataxic gait TREATMENT INTERVENTIONS Therapeutic Activity (29022) Therapeutic Activity (15884) Treatment Minutes: 23 $ Therapeutic Activity (58226) Billed Units: 2 units See grid for [...] bearing decreased, (more content not included)... [facility] H[facility]: [id number] Author: ELLYN SANCHEZ RT(Jason) Service: Radiology Author Type: Technologist Type: [facility] Filed: 04/22/2024 09:04 Note Text: Radiology [...] PATIENT PRESENTS WITH AN IMPLANTABLE OR ATTACHED DOOR ASSEMBLER: No RADIOLOGY DEPARTMENT: General X-ray: Exam(s) Completed: Abdomen X-Ray: Abdomen PERIPHERAL IV DATA: Not applicable SIGNED BY: RT Aimee(Jason) April 22, 2024 9:04 AM [facility] HNO ID: [id number] Author: ELLYN SANCHEZ RT(Jason) Service: Radiology Author Type: Technologist Type: [facility] Filed: 04/22/2024 06:46 Note Text: Radiology [...] PATIENT PRESENTS WITH AN IMPLANTABLE OR ATTACHED DOOR ASSEMBLER: No RADIOLOGY DEPARTMENT: General X-ray: Exam(s) Completed: Abdomen X-Ray: Abdomen PERIPHERAL IV DATA: Not applicable SIGNED BY: RT Aimee(Jason) April 22, 2024 6:45 AM Normal [facility] Basic metabolic 2000 panelon 04-22-2024 Anion gap [Moles/Vol] 13 mmol/L Normal 8-15 [facility] Comment on above: Order Comment: Speci men Type: BLOOD SPECIMENOrdering Facility: [facility] Address: [address] [place] [address] Performed By: #### 2 4321-2 ####[facility]ORATORYCLIA [id number] [place] [address] [place] Calcium [Mass/Vol] 9.8 mg/dL Normal 8.5-10.2 [facility] Comment on above: Order Comment: Speci men Type: BLOOD SPECIMENOrdering Facility: [facility] Address: [address] [place] [address] Performed By: #### 2 4321-2 ####[facility]ORATORYCLIA [id number] [place] [address] [place] Chloride [Moles/Vol] 99 mmol/L Normal 98-107 [facility] Comment on above: Order Comment: Speci men Type: BLOOD SPECIMENOrdering Facility: [facility] Address: [address] [place] [address] Performed By: #### 2 4321-2 ####[facility]ORATORYCLIA [id number] [place] [address] [place] CO2 [Moles/Vol] 23 mmol/L Normal 22-30 [facility] Comment on above: Order Comment: Speci men Type: BLOOD SPECIMENOrdering Facility: [facility] Address: [address] [place] [address] Performed By: #### 2 4321-2 ####[facility]ORATORYCLIA [id number] [place] [address] [place] Creatinine [Mass/Vol] 1.03 mg/dL Normal 0.73-1.22 [facility] Comment on above: Order Comment: Speci men Type: BLOOD SPECIMENOrdering Facility: [facility] Address: [address] [place] [address] Performed By: #### 2 4321-2 ####[facility]ORATORYCLIA [id number] [place] [address] [place] Creatinine and Glomerular filtration rate.predicted panel (S/P/Bld) 76 mL/min/1.73m??? Normal >=60 [facility] Comment on above: Order Comment: Lyndsey eller Type: BLOOD SPECIMENOrdering Facility: [facility] Address: [address] [place] [address] Result Comment: Bianca mated Glomerular Filtration Rate [...] actual GFR. Performed By: #### 2 4321-2 ####[facility] LABORATORYCLIA [id number] [place] [address] [place] Glucose [Mass/Vol] 92 mg/dL Normal 74-99 [facility] Comment on above: Order Comment: Lyndsey eller Type: BLOOD SPECIMENOrdering Facility: [facility] Address: [address] [place] [address] Result Comment: The [place] Diabetes Association (ADA) provides guidance for cutoff [...] Standards of Medical Care in Diabetes 2016, [place] [employer]. Diabetes Care. 2016.39(Suppl 1). Performed By: #### 2 4321-2 ####[facility] LABORATORYCLIA [id number] [place] [id number] [place] Potassium [Moles/Vol] 4.3 mmol/L Normal 3.7-5.1 [facility] Comment on above: Order Comment: Speci men Type: BLOOD SPECIMENOrdering Facility: [facility] Address: [address] [place] [address] Performed By: #### 2 4321-2 ####[facility] LABORATORYCLIA [id number] [address] STATES [facility] Sodium [Moles/Vol] 135 mmol/L Low 136-144 [facility] Comment on above: Order Comment: Speci men Type: BLOOD SPECIMENOrdering Facility: [facility] Address: [address] [place] [address] Performed By: #### 2 4321-2 ####[facility]ORATORYCLIA [id number] [address] STATES [facility] Urea nitrogen [Mass/Vol] 35 mg/dL High 9-24 [facility] Comment on above: Order Comment: Speci men Type: BLOOD SPECIMENOrdering Facility: [facility] Address: [address] [place] [address] Performed By: #### 2 4321-2 ####[facility]ORATORYCLIA [id number] [address] CBC panel Auto (Bld)on 04-22 Erythrocyte distribution width (RBC) [Ratio] 11.9 % Normal 11.5-15.0 [facility] Comment on above: Order Comment: Speci men Type: BLOOD SPECIMENOrdering Facility: [facility] Address: [address] [place] [address] Performed By: #### 5 8410-2 ####[facility]ORATORYCLIA [id number] [address] Hematocrit (Bld) [Volume fraction] 37.5 % Low 39.0-51.0 [facility] Comment on above: Order Comment: Speci men Type: BLOOD SPECIMENOrdering Facility: [facility] Address: [address] [place] [address] Performed By: #### 5 8410-2 ####[facility]ORATORYCLIA [id number] [address] [facility] Hemoglobin (Bld) [Mass/Vol] 12.8 g/dL Low 13.0-17.0 [facility] Comment on above: Order Comment: Speci men Type: BLOOD SPECIMENOrdering Facility: [facility] Address: [address] [place] [address] Performed By: #### 5 8410-2 ####[facility]ORATORYCLIA [id number] [address] MCH (RBC) [Entitic mass] 34.8 pg High 26.0-34.0 [facility] Comment on above: Order Comment: Speci men Type: BLOOD SPECIMENOrdering Facility: [facility] Address: [address] [place] [address] Performed By: #### 5 8410-2 ####[facility]ORATORYCLIA [id number] [address] MCHC (RBC) [Mass/Vol] 34.1 g/dL Normal 30.5-36.0 [facility] Comment on above: Order Comment: Speci men Type: BLOOD SPECIMENOrdering Facility: [facility] Address: [address] [place] [address] Performed By: #### 5 8410-2 ####[facility]ORATORYCLIA [id number] [address] MCV (RBC) [Entitic vol] 101.9 fL High 80.0-100.0 [facility] Comment on above: Order Comment: Speci men Type: BLOOD SPECIMENOrdering Facility: [facility] Address: [address] [place] [address] Performed By: #### 5 8410-2 ####[facility]ATORYCLIA [id number] [address] Nucleated RBC (Bld) [#/Vol] 10*3/uL Normal <0.01 [facility] Comment on above: Order Comment: Speci men Type: BLOOD SPECIMENOrdering Facility: [facility] Address: [address] [place] [address] Performed By: #### 5 8410-2 ####[facility]ORATORYCLIA [id number] [address] [place] Platelet mean volume (Bld) [Entitic vol] 10.1 fL Normal 9.0-12.7 [facility] Comment on above: Order Comment: Speci men Type: BLOOD SPECIMENOrdering Facility: [facility] Address: [address] [place] [address] Performed By: #### 5 8410-2 ####[facility]ORATORYCLIA [id number] [place] [address] [place] Platelets (Bld) [#/Vol] 380 10*3/uL Normal 150-400 [facility] Comment on above: Order Comment: Speci men Type: BLOOD SPECIMENOrdering Facility: [facility] Address: [address] [place] [address] Performed By: #### 5 8410-2 ####[facility]ORATORYCLIA [id number] [place] [address] [place] RBC (Bld) [#/Vol] 3.68 10*6/uL Low 4.20-6.00 [facility] Comment on above: Order Comment: Speci men Type: BLOOD SPECIMENOrdering Facility: [facility] Address: [address] [place] [address] Performed By: #### 5 8410-2 ####[facility]ORATORYCLIA [id number] [address] [place] WBC (Bld) [#/Vol] 9.80 10*3/uL Normal 3.70-11.00 [facility] Comment on above: Order Comment: Speci men Type: BLOOD SPECIMENOrdering Facility: [facility] Address: [address] [place] [address] Performed By: #### 5 8410-2 ####[facility]ORATORYCLIA [id number] [address] [place] CONSULT PROGon 04-22-2024 CONSULT PROG HNO ID: [id number] Author: MONIK CALDWELL APRN.[employer] Service: Neurology ICU Author Type: Nurse Practitioner [...] Score: 12 (04/22/24 1419 : Monik Caldwell APRN.[employer]) 12 Alert oriented to self place month [...] Other - see comment (needs seen by WARP KNITTER, may need cortrak) 8. TEMPERATURE Control: Normothermic 9. Does the patient need THERAPY: Yes Therapy involvement: PT, OT, ST Stroke Care and Prevention (personally reviewed by Monik Caldwell APRN.[employer]): Daily Rounding Date: 04/22/24 Daily Rounding Time: [...] tandem occlusion. (more content not included)... Normal [facility] NURSING PROGon 04-22-2024 NURSING PROG HNO ID: [id number] Author: MARIELLE BERGER RN Service: ? Author Type: Registered Nurse Type: Nursing Progress Note Filed: 04/22/2024 19:16 Note Text: Transfer Note: PATIENT NAME: Jonathon Perales Patient Location: [place] [address] [address] [facility] Room: [place] [address] Patient transferred into room/unit [facility] in stable condition. Actions taken: Report given/called to Citlalli Johnson [facility] XR ABDOMEN 1V SUPINEon 04-22 XR [...] available at time of dictation as requested. [facility] Trans[facility] Date/Time: Apr 22 2024 10:21A Dictated by : JESSE RUIZ MD This examination was interpreted and the report reviewed and electronically signed by: JESSE RUIZ MD on Apr 22 2024 10:24AM EST [id number] Normal [facility] XR ABDOMEN 1V SUPINE * * [...] should be advanced further into the stomach. Public Health Doctor: [facility] Transcribe Date/Time: Apr 22 2024 7:47A Dictated by : CIARRA COFFEY MD This examination was interpreted and the report reviewed and electronically signed by: CIARRA COFFEY MD on Apr 22 2024 7:52AM EST [id number] Normal [facility] Basic metabolic 2000 panelon 04-21-2024 Anion gap [Moles/Vol] 11 mmol/L Normal 9-18 [facility] Comment on above: Order Comment: Speci men Type: BLOOD SPECIMENOrdering Facility: [facility] Address: [address] [place] [address] [address], [place] [address] Performed By: #### 2 4321-2, 2776-, ####[facility] LABORATORYCLIA [id number] [place] [address] [place] Calcium [Mass/Vol] 9.4 mg/dL Normal 8.5-10.2 [facility] Comment on above: Order Comment: Speci men Type: BLOOD SPECIMENOrdering Facility: [facility] Address: [address] [place] [address] Performed By: #### 2 4321-2, 2776-11, ####[facility] LABORATORYCLIA [id number] [place] [address] [place] Chloride [Moles/Vol] 97 mmol/L Normal 97-105 [facility] Comment on above: Order Comment: Speci men Type: BLOOD SPECIMENOrdering Facility: [facility] Address: [address] [place] [address] Performed By: #### 2 4321-2, 2776-11, ####[facility] LABORATORYCLIA [id number] [place] [address] [place] CO2 [Moles/Vol] 26 mmol/L Normal 22-30 [facility] Comment on above: Order Comment: Speci men Type: BLOOD SPECIMENOrdering Facility: [facility] Address: [address] [place] [address] Performed By: #### 2 4321-2, 2776-11, ####[facility] LABORATORYCLIA [id number] [place] [address] [place] Creatinine [Mass/Vol] 1.09 mg/dL Normal 0.73-1.22 [facility] Comment on above: Order Comment: Speci men Type: BLOOD SPECIMENOrdering Facility: [facility] Address: [address] [place] [address] Performed By: #### 2 4321-2, 2776-11, ####[facility] LABORATORYCLIA [id number] [place] [address] [place] Creatinine and Glomerular filtration rate.predicted panel (S/P/Bld) 71 mL/min/1.73m??? Normal >=60 [facility] Comment on above: Order Comment: Lyndsey eller Type: BLOOD SPECIMENOrdering Facility: [facility] Address: [address] [place] [address] Result Comment: Bianca mated Glomerular Filtration Rate [...] GFR. Performed By: #### 2 4321-2, 2777-, ####[facility] LABORATORYCLIA [id number] [place] [address] [place] Glucose [Mass/Vol] 78 mg/dL Normal 74-99 [facility] Comment on above: Order Comment: Lyndsey eller Type: BLOOD SPECIMENOrdering Facility: [facility] Address: [address] [place] [address] Result Comment: The [place] Diabetes Association (ADA) provides guidance for cutoff [...] Standards of Medical Care in Diabetes 2016, [place] [employer]. Diabetes Care. 2016.39(Suppl 1). Performed By: #### 2 4321-2, 2777-, ####[facility] LABORATORYCLIA [id number] [place] [address] [place] Potassium [Moles/Vol] 4.5 mmol/L Normal 3.7-5.1 [facility] Comment on above: Order Comment: Speci men Type: BLOOD SPECIMENOrdering Facility: [facility] Address: [address] [place] [address] Performed By: #### 2 4321-2, 2776-11, ####[facility] LABORATORYCLIA [id number] [place], [place] [address] [place] [address] [place] Sodium [Moles/Vol] 134 mmol/L Low 136-144 [facility] Comment on above: Order Comment: Speci men Type: BLOOD SPECIMENOrdering Facility: [facility] Address: [address] [place] [address] Performed By: #### 2 4321-2, 2776-11, ####[facility] LABORATORYCLIA [id number] [address] STATES [facility] Urea nitrogen [Mass/Vol] 31 mg/dL High 9-24 [facility] Comment on above: Order Comment: Speci men Type: BLOOD SPECIMENOrdering Facility: [facility] Address: [address] [place] [address] Performed By: #### 2 4321-2, 2776-11, ####[facility]ORATORYCLIA [id number] [address] [place] [facility] CBC panel Auto (Bld)on 04-21 Erythrocyte distribution width (RBC) [Ratio] 11.9 % Normal 11.5-15.0 [facility] Comment on above: Order Comment: Speci men Type: BLOOD SPECIMENOrdering Facility: [facility] Address: [address] [place] [address] Performed By: #### 5 8410-2 ####[facility]ORATORYCLIA [id number] [address] STATES [facility] Hematocrit (Bld) [Volume fraction] 35.0 % Low 39.0-51.0 [facility] Comment on above: Order Comment: Speci men Type: BLOOD SPECIMENOrdering Facility: [facility] Address: [address] [place] [address] Performed By: #### 5 8410-2 ####[facility]ORATORYCLIA [id number] [address] Hemoglobin (Bld) [Mass/Vol] 11.9 g/dL Low 13.0-17.0 [facility] Comment on above: Order Comment: Speci men Type: BLOOD SPECIMENOrdering Facility: [facility] Address: [address] [place] [address] Performed By: #### 5 8410-2 ####[facility]ORATORYCLIA [id number] [address] MCH (RBC) [Entitic mass] 34.5 pg High 26.0-34.0 [facility] Comment on above: Order Comment: Speci men Type: BLOOD SPECIMENOrdering Facility: [facility] Address: [address] [place] [address] Performed By: #### 5 8410-2 ####[facility]ORATORYCLIA [id number] [address] MCHC (RBC) [Mass/Vol] 34.0 g/dL Normal 30.5-36.0 [facility] Comment on above: Order Comment: Speci men Type: BLOOD SPECIMENOrdering Facility: [facility] Address: [address] [place] [address] Performed By: #### 5 8410-2 ####[facility]ORATORYCLIA [id number] [address] MCV (RBC) [Entitic vol] 101.4 fL High 80.0-100.0 [facility] Comment on above: Order Comment: Speci men Type: BLOOD SPECIMENOrdering Facility: [facility] Address: [address] [place] [address] Performed By: #### 5 8410-2 ####[facility]ORATORYCLIA [id number] [address] Nucleated RBC (Bld) [#/Vol] 10*3/uL Normal <0.01 [facility] Comment on above: Order Comment: Speci men Type: BLOOD SPECIMENOrdering Facility: [facility] Address: [address] [place] [address] Performed By: #### 5 8410-2 ####[facility]ORATORYCLIA [id number] [address] [place] Platelet mean volume (Bld) [Entitic vol] 10.6 fL Normal 9.0-12.7 [facility] Comment on above: Order Comment: Speci men Type: BLOOD SPECIMENOrdering Facility: [facility] Address: [address] [place] [address] Performed By: #### 5 8410-2 ####[facility]ORATORYCLIA [id number] [place] [address] [place] Platelets (Bld) [#/Vol] 317 10*3/uL Normal 150-400 [facility] Comment on above: Order Comment: Speci men Type: BLOOD SPECIMENOrdering Facility: [facility] Address: [address] [place] [address] Performed By: #### 5 8410-2 ####[facility]ORATORYCLIA [id number] [place] [address] [place] RBC (Bld) [#/Vol] 3.45 10*6/uL Low 4.20-6.00 [facility] Comment on above: Order Comment: Speci men Type: BLOOD SPECIMENOrdering Facility: [facility] Address: [address] [place] [address] Performed By: #### 5 8410-2 ####[facility]ORATORYCLIA [id number] [place] [address] [place] WBC (Bld) [#/Vol] 10.81 10*3/uL Normal 3.70-11.00 [facility] Comment on above: Order Comment: Speci men Type: BLOOD SPECIMENOrdering Facility: [facility] Address: [address] [place] [address] Performed By: #### 5 8410-2 ####[facility]ORATORYCLIA [id number] [place] [address] [facility] Magnesium SerPl-mCncon 04-21 Magnesium [Mass/Vol] 2.3 mg/dL Normal 1.7-2.3 [facility] Comment on above: Order Comment: Speci men Type: BLOOD SPECIMENOrdering Facility: [facility] Address: [address] [place], [place] [address] Performed By: #### 2 4321-2, 2777-1, 77967-7 ####[facility]ORATORYCLIA [id number] [place] [address] [facility] NURSING PROGon 04-21-2024 NURSING PROG HNO ID: [id number] Author: MOUNA KOHLER RN Service: Nursing Author Type: Registered Nurse Type: Nursing Progress Note Filed: 04/21/2024 19:32 Note Text: Nursing Progress: Topic: RESTRAINT NON-VIOLENT PATIENT NAME: Jonathon Perales Patient Location: [place] [address] Room: [place] [address] The patient demonstrates Attempting to Remove Medical [...] TIME: 7:32 PM Mouna Kohler RN Normal [facility] Phosphate SerPl-mCncon 04-21 Phosphate [Mass/Vol] 3.5 mg/dL Normal 2.7-4.8 [facility] Comment on above: Order Comment: Speci men Type: BLOOD SPECIMENOrdering Facility: [facility] Address: [address] [place] [address] Performed By: #### 2 4321-2, 2777-1, 76275-0 ####[facility]ORATORYCLIA [id number] [address] [facility] THERAPY NTon 04-21-2024 THERAPY NT HNO ID: [id number] Author: JL PERAZA CCC-WARP KNITTER Service: Speech/Swallow Author Type: Speech Language Pathologist Type: Therapy (PT/OT/Speech/Resp) Filed: 04/21/2024 15:16 Note Text: Speech Therapy Modified Barium Swallow Study Evaluation SERVICE DATE: 04/21/2024 SERVICE TIME: 1415 to 1435 ROOM: [place] [address] ([facility]) IMPRESSION: Evidence of: Oropharyngeal dysphagia - [...] Consistencies Provided: Thin Liquids, Mildly Thick Liquids ([place] Thick) Oral Phase: Lip Closure: Escape progressing [...] 0, Mildly Thick Liquids IDDSI Level 2 ([place] Thick) Aspiration: During the swallow Aspiration With: Thin Liquids IDDSI Level 0, Mildly Thick Liquids IDDSI Level 2 ([place] Thick) Penetration-Aspiration Scale Level 8-Material enters the airway, passes below the vocal folds, and no effort is mad (more content not included)... Normal [facility] THERAPY NT HNO ID: [id number] Author: LAVINIA MURILLO PT Service: Physical Therapy Author Type: Physical Therapist Type: Therapy (PT/OT/Speech/Resp) Filed: 04/21/2024 14:30 Note Text: Physical Therapy Evaluation Summary SERVICE DATE: 04/21/2024 SERVICE TIME: 1119 to 1146 ROOM: [place] [address] ([facility]/ [facility]) PT 6 Clicks [...] Ataxic gait TREATMENT INTERVENTIONS Evaluation, Therapeutic Activity (75971) Timed Code Treatment (minutes): 12 Skilled Treatment Time (minutes): 27 $ Evaluation-Moderate (55003) Billed Units: 1 unit Therapeutic Activity (42708) Treatment Minutes: 12 Cues for safe mobility per grid below Pt. Able to sit EOB and stand for several minutes Pt. Took multiple side steps along EOB with increased cueing and encouragement--difficu lty advancing LLE Completed step tap with bilat LE. Sitting EOB and standing at WW- target on floor for pt. and increased cueing for pt. To sisal picker their left foot and bring it completely [...] Device: Wheeled (more content not included)... Normal [facility] THERAPY NT HNO ID: [id number] Author: SHEN LUONG, OTR/L Service: Occupational Therapy Author Type: Occupational Therapist Type: Therapy (PT/OT/Speech/Resp) Filed: 04/21/2024 10:44 Note Text: Occupational Therapy Evaluation Summary SERVICE DATE: 04/21/2024 SERVICE TIME: 915 to 943 ROOM: [id number] OT 6 Clicks Score: 11 DISCHARGE RECOMMENDATIONS [...] driving, prior to CVA. His lives in [facility]. Baseline Cognition: Oriented to self, Oriented to [...] Functions and Awareness TREATMENT INTERVENTIONS Evaluation, Self Skilled Nursing Management (28771) Timed Code Treatment (minutes): 12 Skilled Treatment Time (minutes): 28 $ Evaluation - High (74976) Billed Units: 1 unit Self Skilled Nursing Management (50550) Treatment Minutes: 12 $ Self Skilled Nursing Management (57427) Billed Units: 1 unit TRAINING AND EDUCATION PROVIDED Bed Mobility, Benefits of In-Hospital Mobility, Command Following, Expected Functional Level, Grooming Tasks, Functional Mobility Involving ADLs, Lower Extremity Dressing, Role of Occupational Therapy, Positioning, Lower Extremity Bathing, Transfer - Sit to Stand, Upper Extremity Bathing, Upper Extremity Dressing, Memory/Attention, Orientation, Sitting Balance to Improve [place] with ADLs/Self-Care THERAPEUTIC SKILLS USED Activity Dosing, Cues for Sequencing/Proper Technique for Activity, Assessment of Tolerance Including Vitals Response to Activity, Cuing Tactile, Cuing Verbal, Cuing Visual, Physical Assist, Therapeutic Use of Self FUNCTIONAL STATUS Activities of Daily Living Assist Level Additional Information Feeding Moderate Assistance, Additional Information motion, pt NPO Grooming Maximal Assistance Bathing Upper Body (more content not included)... Normal [facility] THERAPY NT HNO ID: [id number] Author: XIMENA TO, CCC-WARP KNITTER Service: Speech/Swallow Author Type: Speech Language Pathologist Type: Therapy (PT/OT/Speech/Resp) Filed: 04/21/2024 08:42 Note Text: Speech Therapy Clinical Swallow Evaluation SERVICE DATE: 04/21/2024 SERVICE TIME: 809 to 827 ROOM: [id number] IMPRESSION: Swallow Deficits Identified / Suspected: Oropharyngeal [...] hemorrhage. No space-occupying hematoma. Localized mass effect. -: extubated Rehabilitation Precautions: Aspiration Precautions, Communication Deficits, [...] 0, Mildly Thick Liquids IDDSI Level 2 ([place] Thick), Pureed IDDSI Level 4 Compensatory Strategies [...] recommended treatment (more content not included)... Normal [facility] XR ABDOMEN 1V SUPINEon 04-21 XR ABDOMEN 1V SUPINE * * *Final Report* * * DATE OF EXAM: Apr 21 2024 4:10PM TXX 5289 - XR ABDOMEN 1V SUPINE / [...] right and cephalad. This should be repositioned. Public Health Doctor: MILTON Transcribe Date/Time: Apr 21 2024 5:11P Dictated by : ERYN NARANJO MD This examination was interpreted and the report reviewed and electronically signed by: ERYN NARANJO MD on Apr 21 2024 5:14PM EST [id number] Normal [facility] XR MOD BARIUM SWALLOW W PAULINA [...] Technical support for modified barium swallow study. Public Health Doctor: MILTON Transcribe Date/Time: Apr 21 2024 4:21P Dictated by : EVELIO GEORGE MD This examination was interpreted and the report reviewed and electronically signed by: EVELIO GEORGE MD on Apr 21 2024 4:21PM EST [id number] Normal [facility] Basic metabolic 2000 panelon 04-20-2024 Anion gap [Moles/Vol] 10 mmol/L Normal 9-18 [facility] Comment on above: Order Comment: Speci men Type: BLOOD SPECIMENOrdering Facility: [facility] Address: [address] [place] [address] Performed By: #### 2 4321-2, 50771-8, 2777-1 ####[facility] LABORATORYCLIA [id number] [place] [address] [place] Calcium [Mass/Vol] 9.1 mg/dL Normal 8.5-10.2 [facility] Comment on above: Order Comment: Speci men Type: BLOOD SPECIMENOrdering Facility: [facility] Address: [address] [place] [address] Performed By: #### 2 4321-2, , 2776-11 ####[facility] LABORATORYCLIA [id number] [place] [address] [place] Chloride [Moles/Vol] 99 mmol/L Normal 97-105 [facility] Comment on above: Order Comment: Speci men Type: BLOOD SPECIMENOrdering Facility: [facility] Address: [address] [place] [address] Performed By: #### 2 4321-2, , 2776-11 ####[facility] LABORATORYCLIA [id number] [address] STATES [place] [facility] CO2 [Moles/Vol] 26 mmol/L Normal 22-30 [facility] Comment on above: Order Comment: Speci men Type: BLOOD SPECIMENOrdering Facility: [facility] Address: [address] [place] [address] Performed By: #### 2 4321-2, , 2776-11 ####[facility]ORATORYCLIA [id number] [address] [place] Creatinine [Mass/Vol] 0.99 mg/dL Normal 0.73-1.22 [facility] Comment on above: Order Comment: Speci men Type: BLOOD SPECIMENOrdering Facility: [facility] Address: [address] [place] [address] Performed By: #### 2 4321-2, , 2776-11 ####[facility]ORATORYCLIA [id number] [address] Creatinine and Glomerular filtration rate.predicted panel (S/P/Bld) 80 mL/min/1.73m??? Normal >=60 [facility] Comment on above: Order Comment: Speci men Type: BLOOD SPECIMENOrdering Facility: [facility] Address: [address] [place] [address] Result Comment: Bianca mated Glomerular Filtration Rate [...] Performed By: #### 2 4321-2, , 2776-11 ####[facility] LABORATORYCLIA [id number] [place] [address] [place] Glucose [Mass/Vol] 126 mg/dL High 74-99 [facility] Comment on above: Order Comment: Lyndsey eller Type: BLOOD SPECIMENOrdering Facility: [facility] Address: [address] [place] [address] Result Comment: The [place] Diabetes Association (ADA) provides guidance for cutoff [...] Standards of Medical Care in Diabetes 2016, [place] [employer]. Diabetes Care. 2016.39(Suppl 1). Performed By: #### 2 4321-2, , 2776-11 ####[facility] LABORATORYCLIA [id number] [place] [address] [place] Potassium [Moles/Vol] 4.4 mmol/L Normal 3.7-5.1 [facility] Comment on above: Order Comment: Lyndsey [facility] Type: BLOOD SPECIMENOrdering Facility: [facility] Address: [address] [place] [address] Performed By: #### 2 4321-2, , 1 ####[facility] LABORATORYCLIA [id number] [place] [id number] [place] [facility] Sodium [Moles/Vol] 135 mmol/L Low 136-144 [facility] Comment on above: Order Comment: Speci men Type: BLOOD SPECIMENOrdering Facility: [facility] Address: [address] [place] [address] Performed By: #### 2 4321-2, , 2776-11 ####[facility]ORATORYCLIA [id number] [address] [place] Urea nitrogen [Mass/Vol] 30 mg/dL High 9-24 [facility] Comment on above: Order Comment: Speci men Type: BLOOD SPECIMENOrdering Facility: [facility] Address: [address] [place] [address] Performed By: #### 2 4321-2, , 2776-11 ####[facility]ORATORYCLIA [id number] [address] [place] [facility] CBC panel Auto (Bld)on 04-20 Erythrocyte distribution width (RBC) [Ratio] 12.0 % Normal 11.5-15.0 [facility] Comment on above: Order Comment: Speci men Type: BLOOD SPECIMENOrdering Facility: [facility] Address: [address] [place] [address] Performed By: #### 5 8410-2 ####[facility] LABORATORYCLIA [id number] [address] [place] Hematocrit (Bld) [Volume fraction] 31.2 % Low 39.0-51.0 [facility] Comment on above: Order Comment: Speci men Type: BLOOD SPECIMENOrdering Facility: [facility] Address: [address] [place] [address] Performed By: #### 5 8410-2 ####[facility]ORATORYCLIA [id number] [address] [place] Hemoglobin (Bld) [Mass/Vol] 10.8 g/dL Low 13.0-17.0 [facility] Comment on above: Order Comment: Speci men Type: BLOOD SPECIMENOrdering Facility: [facility] Address: [address] [place] [address] Performed By: #### 5 8410-2 ####[facility]ORATORYCLIA [id number] [address] MCH (RBC) [Entitic mass] 35.4 pg High 26.0-34.0 [facility] Comment on above: Order Comment: Speci men Type: BLOOD SPECIMENOrdering Facility: [facility] Address: [address] [place] [address] Performed By: #### 5 8410-2 ####[facility] LABORATORYCLIA [id number] [address] [facility] MCHC (RBC) [Mass/Vol] 34.6 g/dL Normal 30.5-36.0 [facility] Comment on above: Order Comment: Speci men Type: BLOOD SPECIMENOrdering Facility: [facility] Address: [address] [place] [address] Performed By: #### 5 8410-2 ####[facility] LABORATORYCLIA [id number] [address] MCV (RBC) [Entitic vol] 102.3 fL High 80.0-100.0 [facility] Comment on above: Order Comment: Speci men Type: BLOOD SPECIMENOrdering Facility: [facility] Address: [address] [place] [address] Performed By: #### 5 8410-2 ####[facility] LABORATORYCLIA [id number] [address] Nucleated RBC (Bld) [#/Vol] 10*3/uL Normal <0.01 [facility] Comment on above: Order Comment: Speci men Type: BLOOD SPECIMENOrdering Facility: [facility] Address: [address] [place] [address] Performed By: #### 5 8410-2 ####[facility] LABORATORYCLIA [id number] [address] [place] Platelet mean volume (Bld) [Entitic vol] 11.0 fL Normal 9.0-12.7 [facility] Comment on above: Order Comment: Speci men Type: BLOOD SPECIMENOrdering Facility: [facility] Address: [address] [place] [address] Performed By: #### 5 8410-2 ####[facility] LABORATORYCLIA [id number] [address] [place] Platelets (Bld) [#/Vol] 223 10*3/uL Normal 150-400 [facility] Comment on above: Order Comment: Speci men Type: BLOOD SPECIMENOrdering Facility: [facility] Address: [address] [place] [address] Performed By: #### 5 8410-2 ####[facility] LABORATORYCLIA [id number] [place] [address] [place] RBC (Bld) [#/Vol] 3.05 10*6/uL Low 4.20-6.00 [facility] Comment on above: Order Comment: Speci men Type: BLOOD SPECIMENOrdering Facility: [facility] Address: [address] [place] [address] Performed By: #### 5 8410-2 ####[facility] LABORATORYCLIA [id number] [place] [address] [place] WBC (Bld) [#/Vol] 7.59 10*3/uL Normal 3.70-11.00 [facility] Comment on above: Order Comment: Speci men Type: BLOOD SPECIMENOrdering Facility: [facility] Address: [address] [place] [address] Performed By: #### 5 8410-2 ####[facility]ORATORYCLIA [id number] [address] OF [place] Magnesium SerPl-mCncon 04-20 Magnesium [Mass/Vol] 2.3 mg/dL Normal 1.7-2.3 [facility] Comment on above: Order Comment: Speci men Type: BLOOD SPECIMENOrdering Facility: [facility] Address: [address] [place], [place] [address] [address] Performed By: #### 2 4321-2, 45077-4, 2777-1 ####[facility] LABORATORYCLIA [id number] [place] [id number] [place] NURSING PROGon 04-20-2024 NURSING PROG HNO ID: [id number] Author: MOUNA KOHLER RN Service: Nursing Author Type: Registered Nurse Type: Nursing Progress Note Filed: 04/21/2024 06:19 Note Text: Nursing Progress: Topic: RESTRAINT NON-VIOLENT PATIENT NAME: Jonathon Perales Patient Location: [place] [address] [address] Room: [place] [address] The patient demonstrates Attempting to Remove Medical [...] 2024 TIME: 6:19 AM Mouna Kohler RN Normal [facility] [facility] NUTRITIONon 04-20-2024 NUTRITION HNO ID: [id number] Author: DON DICKSON RD Service: Nutrition Therapy [...] Weight Type: Current weight Estimated kilocalorie needs: 2119-8142 Calorie Calculation Method: 25-30 kcals/kg Estimated protein needs (grams): 82-109 Grams protein determined by: 1.2 - 1.6 g/kg Diet Orders (From admission, onward) Start Ordered 04/16/24 1415 DIET TUBE FEED - CONTIN (NO TRAY) START NOW Question Answer Comment TF Product (26 years and up) ISOSOURCE 1.5 [place] Approved Secondary TF Product (Do Not Change) [...] April 20, 2024 TIME: 2:05 PM Normal [facility] Phosphate SerPl-mCncon 04-20 Phosphate [Mass/Vol] 4.1 mg/dL Normal 2.7-4.8 [facility] Comment on above: Order Comment: Speci men Type: BLOOD SPECIMENOrdering Facility: [facility] Address: [address] [place] [address] Performed By: #### 2 4321-2, 82709-8, 2777-1 ####[facility] LABORATORYCLIA [id number] [address] THERAPY NTon 04-20-2024 THERAPY NT HNO ID: [id number] Author: KILEY MCCRACKEN RRT Service: Respiratory Therapy [...] (cm H2O) -19 Cuff Leak Y Normal [facility] Basic metabolic 2000 panelon 04-19-2024 Anion gap [Moles/Vol] 11 mmol/L Normal 9-18 [facility] Comment on above: Order Comment: Speci men Type: BLOOD SPECIMENOrdering Facility: [facility] Address: [address] [place] [address] Performed By: #### 2 4321-2, 2776-11, ####[facility] LABORATORYCLIA [id number] [place] [address] [place] Calcium [Mass/Vol] 9.1 mg/dL Normal 8.5-10.2 [facility] Comment on above: Order Comment: Speci men Type: BLOOD SPECIMENOrdering Facility: [facility] Address: [address] [place] [address] Performed By: #### 2 4321-2, 2776-11, ####[facility] LABORATORYCLIA [id number] [place] [address] [place] Chloride [Moles/Vol] 101 mmol/L Normal 97-105 [facility] Comment on above: Order Comment: Speci men Type: BLOOD SPECIMENOrdering Facility: [facility] Address: [address] [place] [address] Performed By: #### 2 4321-2, 2776-11, ####[facility] LABORATORYCLIA [id number] [place] [address] [place] CO2 [Moles/Vol] 25 mmol/L Normal 22-30 [facility] Comment on above: Order Comment: Speci men Type: BLOOD SPECIMENOrdering Facility: [facility] Address: [address] [place] [address] Performed By: #### 2 4321-2, 2776-11, ####[facility] LABORATORYCLIA [id number] [place] [address] [place] Creatinine [Mass/Vol] 0.94 mg/dL Normal 0.73-1.22 [facility] Comment on above: Order Comment: Speci men Type: BLOOD SPECIMENOrdering Facility: [facility] Address: [address] [place] [address] Performed By: #### 2 4321-2, 2777-, ####[facility]PITALCLIA [id number] [address] Creatinine and Glomerular filtration rate.predicted panel (S/P/Bld) 85 mL/min/1.73m??? Normal >=60 [facility] Comment on above: Order Comment: Lyndsey eller Type: BLOOD SPECIMENOrdering Facility: [facility] Address: [address] [place] [address] Result Comment: Bianca mated Glomerular Filtration Rate [...] GFR. Performed By: #### 2 4321-2, 2777-, ####[facility]PITALIA [id number] [address] [place] Glucose [Mass/Vol] 125 mg/dL High 74-99 [facility] Comment on above: Order Comment: Lyndsey eller Type: BLOOD SPECIMENOrdering Facility: [facility] Address: [address] [place] [address] Result Comment: The [place] Diabetes Association (ADA) provides guidance for cutoff [...] Standards of Medical Care in Diabetes 2016, [place] [employer]. Diabetes Care. 2016.39(Suppl 1). Performed By: #### 2 4321-2, 2777-, ####[facility]PITALIA [id number] [place] [address] [place] Potassium [Moles/Vol] 4.2 mmol/L Normal 3.7-5.1 [facility] Comment on above: Order Comment: Speci men Type: BLOOD SPECIMENOrdering Facility: [facility] Address: [address] [place] [address] Performed By: #### 2 4321-2, 277-, ####[facility] LABORATORYCLIA [id number] [place] [id number] [place] Sodium [Moles/Vol] 137 mmol/L Normal 136-144 [facility] Comment on above: Order Comment: Speci men Type: BLOOD SPECIMENOrdering Facility: [facility] Address: [address] [place] [address] Performed By: #### 2 4321-2, 27705-18, ####[facility] LABORATORYCLIA [id number] [address] [place] [facility] Urea nitrogen [Mass/Vol] 24 mg/dL Normal 9-24 [facility] Comment on above: Order Comment: Speci men Type: BLOOD SPECIMENOrdering Facility: [facility] Address: [address] [place] [address] Performed By: #### 2 4321-2, 2776-11, ####[facility] LABORATORYCLIA [id number] [place] [address] [place] CBC panel Auto (Bld)on 04-19 Erythrocyte distribution width (RBC) [Ratio] 12.2 % Normal 11.5-15.0 [facility] Comment on above: Order Comment: Speci men Type: BLOOD SPECIMENOrdering Facility: [facility] Address: [address] [place] [address] Performed By: #### 5 8410-2 ####[facility] LABORATORYCLIA [id number] [address] [place] Hematocrit (Bld) [Volume fraction] 30.9 % Low 39.0-51.0 [facility] Comment on above: Order Comment: Speci men Type: BLOOD SPECIMENOrdering Facility: [facility] Address: [address] [place] [address] Performed By: #### 5 8410-2 ####[facility] LABORATORYCLIA [id number] [address] [place] [facility] Hemoglobin (Bld) [Mass/Vol] 10.5 g/dL Low 13.0-17.0 [facility] Comment on above: Order Comment: Speci men Type: BLOOD SPECIMENOrdering Facility: [facility] Address: [address] [place] [address] Performed By: #### 5 8410-2 ####[facility] LABORATORYCLIA [id number] [address] [place] MCH (RBC) [Entitic mass] 34.8 pg High 26.0-34.0 [facility] Comment on above: Order Comment: Speci men Type: BLOOD SPECIMENOrdering Facility: [facility] Address: [address] [place] [address] Performed By: #### 5 8410-2 ####[facility] LABORATORYCLIA [id number] [address] [place] MCHC (RBC) [Mass/Vol] 34.0 g/dL Normal 30.5-36.0 [facility] Comment on above: Order Comment: Speci men Type: BLOOD SPECIMENOrdering Facility: [facility] Address: [address] [place] [address] Performed By: #### 5 8410-2 ####[facility] LABORATORYCLIA [id number] [address] [place] MCV (RBC) [Entitic vol] 102.3 fL High 80.0-100.0 [facility] Comment on above: Order Comment: Speci men Type: BLOOD SPECIMENOrdering Facility: [facility] Address: [address] [place] [address] Performed By: #### 5 8410-2 ####[facility] LABORATORYCLIA [id number] [address] [place] Nucleated RBC (Bld) [#/Vol] 10*3/uL Normal <0.01 [facility] Comment on above: Order Comment: Speci men Type: BLOOD SPECIMENOrdering Facility: [facility] Address: [address] [place] [address] Performed By: #### 5 8410-2 ####[facility] LABORATORYCLIA [id number] [place] [address] [place] Platelet mean volume (Bld) [Entitic vol] 11.0 fL Normal 9.0-12.7 [facility] Comment on above: Order Comment: Speci men Type: BLOOD SPECIMENOrdering Facility: [facility] Address: [address] [place] [address] Performed By: #### 5 8410-2 ####[facility]ORATORYCLIA [id number] [address] [place] Platelets (Bld) [#/Vol] 187 10*3/uL Normal 150-400 [facility] Comment on above: Order Comment: Speci men Type: BLOOD SPECIMENOrdering Facility: [facility] Address: [address] [place] [address] Performed By: #### 5 8410-2 ####[facility] LABORATORYCLIA [id number] [place] [address] [place] RBC (Bld) [#/Vol] 3.02 10*6/uL Low 4.20-6.00 [facility] Comment on above: Order Comment: Speci men Type: BLOOD SPECIMENOrdering Facility: [facility] Address: [address] [place] [address] Performed By: #### 5 8410-2 ####[facility]ORATORYCLIA [id number] [address] [place] WBC (Bld) [#/Vol] 7.80 10*3/uL Normal 3.70-11.00 [facility] Comment on above: Order Comment: Speci men Type: BLOOD SPECIMENOrdering Facility: [facility] Address: [address] [place], [place] [address] Performed By: #### 5 8410-2 ####[facility] LABORATORYCLIA [id number] [place] [id number] [facility] Magnesium SerPl-ncon 04-19 Magnesium [Mass/Vol] 2.1 mg/dL Normal 1.7-2.3 [facility] Comment on above: Order Comment: Speci men Type: BLOOD SPECIMENOrdering Facility: [facility] Address: [address] [place], [place] [address] Performed By: #### 2 4321-2, 2777-1, 68270-0 ####[facility]OSPITALCLIA [id number] [address] Phosphate SerPl-nc 04-19 Phosphate [Mass/Vol] 3.6 mg/dL Normal 2.7-4.8 [facility] Comment on above: Order Comment: Speci men Type: BLOOD SPECIMENOrdering Facility: [facility] Address: [address] [place], [place] [address] Performed By: #### 2 4321-2, 2777-, 12451-6 ####[facility] HOSPITALCLIA [id number] [address] XR ABDOMEN 1V SUPINEon 04-19 XR ABDOMEN [...] small right pleural effusion. IMPRESSION: See above. Public Health Doctor: MILTON Transcribe Date/Time: Apr 19 2024 6:52P Dictated by : REED SAM MD This examination was interpreted and the report reviewed and electronically signed by: REED SAM MD on Apr 19 2024 6:53PM EST [id number] Normal [facility] Basic metabolic 2000 panelon 04-18-2024 Anion gap [Moles/Vol] 9 mmol/L Normal 9-18 [facility] Comment on above: Order Comment: Speci men Type: BLOOD SPECIMENOrdering Facility: [facility] Address: [address] [place] [address] Performed By: #### 2 4321-2, , 2776-11 ####[facility] LABORATORYCLIA [id number] [place] [address] [place] Calcium [Mass/Vol] 8.8 mg/dL Normal 8.5-10.2 [facility] Comment on above: Order Comment: Speci men Type: BLOOD SPECIMENOrdering Facility: [facility] Address: [address] [place] [address] Performed By: #### 2 432-2, , 2776-11 ####[facility]ORATORYCLIA [id number] [place] [address] [place] Chloride [Moles/Vol] 105 mmol/L Normal 97-105 [facility] Comment on above: Order Comment: Speci men Type: BLOOD SPECIMENOrdering Facility: [facility] Address: [address] [place] [address] Performed By: #### 2 4321-2, , 2776-11 ####[facility] LABORATORYCLIA [id number] [place] [id number] [place] CO2 [Moles/Vol] 22 mmol/L Normal 22-30 [facility] Comment on above: Order Comment: Speci men Type: BLOOD SPECIMENOrdering Facility: [facility] Address: [address] [place] [address] Performed By: #### 2 4321-2, , 2776-11 ####[facility] LABORATORYCLIA [id number] [place] [address] [place] Creatinine [Mass/Vol] 0.94 mg/dL Normal 0.73-1.22 [facility] Comment on above: Order Comment: Lyndsey eller Type: BLOOD SPECIMENOrdering Facility: [facility] Address: [address] [place] [address] Performed By: #### 2 4321-2, , 2776-11 ####[facility] LABORATORYCLIA [id number] [address] [facility] Creatinine and Glomerular filtration rate.predicted panel (S/P/Bld) 85 mL/min/1.73m??? Normal >=60 [facility] Comment on above: Order Comment: Lyndsey eller Type: BLOOD SPECIMENOrdering Facility: [facility] Address: [address] [place] [address] Result Comment: Bianca mated Glomerular Filtration Rate [...] Performed By: #### 2 4321-2, , 2776-11 ####[facility] LABORATORYCLIA [id number] [place] [address] [place] Glucose [Mass/Vol] 128 mg/dL High 74-99 [facility] Comment on above: Order Comment: Lyndsey eller Type: BLOOD SPECIMENOrdering Facility: [facility] Address: [address] [place] [address] Result Comment: The [place] Diabetes Association (ADA) provides guidance for cutoff [...] Standards of Medical Care in Diabetes 2016, [place] [employer]. Diabetes Care. 2016.39(Suppl 1). Performed By: #### 2 4321-2, , 2776-11 ####[facility] LABORATORYCLIA [id number] [place] [address] [place] Potassium [Moles/Vol] 4.0 mmol/L Normal 3.7-5.1 [facility] Comment on above: Order Comment: Speci men Type: BLOOD SPECIMENOrdering Facility: [facility] Address: [address] [place], [place] [address] Performed By: #### 2 4321-2, , 2776-11 ####[facility] LABORATORYCLIA [id number] [address] [place] [facility] Sodium [Moles/Vol] 136 mmol/L Normal 136-144 [facility] Comment on above: Order Comment: Speci men Type: BLOOD SPECIMENOrdering Facility: [facility] Address: [address] [place] [id number] Performed By: #### 2 4321-2, , 2776-11 ####[facility] LABORATORYCLIA [id number] [address] STATES [facility] Urea nitrogen [Mass/Vol] 20 mg/dL Normal 9-24 [facility] Comment on above: Order Comment: Speci men Type: BLOOD SPECIMENOrdering Facility: [facility] Address: [address] [place] [address] Performed By: #### 2 4321-2, , 2776-11 ####[facility] LABORATORYCLIA [id number] [address] [facility] CBC panel Auto (Bld)on 04-18 Erythrocyte distribution width (RBC) [Ratio] 12.1 % Normal 11.5-15.0 [facility] Comment on above: Order Comment: Speci men Type: BLOOD SPECIMENOrdering Facility: [facility] Address: [address] [place] [address] Performed By: #### 5 8410-2 ####[facility] LABORATORYCLIA [id number] [address] [place] [facility] Hematocrit (Bld) [Volume fraction] 30.5 % Low 39.0-51.0 [facility] Comment on above: Order Comment: Speci men Type: BLOOD SPECIMENOrdering Facility: [facility] Address: [address] [place] [address] Performed By: #### 5 8410-2 ####[facility] LABORATORYCLIA [id number] [address] [facility] Hemoglobin (Bld) [Mass/Vol] 10.3 g/dL Low 13.0-17.0 [facility] Comment on above: Order Comment: Speci men Type: BLOOD SPECIMENOrdering Facility: [facility] Address: [address] [place] [address] Performed By: #### 5 8410-2 ####[facility] LABORATORYCLIA [id number] [address] [place] [facility] MCH (RBC) [Entitic mass] 34.7 pg High 26.0-34.0 [facility] Comment on above: Order Comment: Speci men Type: BLOOD SPECIMENOrdering Facility: [facility] Address: [address] [place] [address] Performed By: #### 5 8410-2 ####[facility]ORATORYCLIA [id number] [address] [place] MCHC (RBC) [Mass/Vol] 33.8 g/dL Normal 30.5-36.0 [facility] Comment on above: Order Comment: Speci men Type: BLOOD SPECIMENOrdering Facility: [facility] Address: [address] [place] [address] Performed By: #### 5 8410-2 ####[facility] LABORATORYCLIA [id number] [address] [place] MCV (RBC) [Entitic vol] 102.7 fL High 80.0-100.0 [facility] Comment on above: Order Comment: Speci men Type: BLOOD SPECIMENOrdering Facility: [facility] Address: [address] [place] [address] Performed By: #### 5 8410-2 ####[facility]ORATORYCLIA [id number] [place] [address] [place] Nucleated RBC (Bld) [#/Vol] 10*3/uL Normal <0.01 [facility] Comment on above: Order Comment: Speci men Type: BLOOD SPECIMENOrdering Facility: [facility] Address: [address] [place] [address] Performed By: #### 5 8410-2 ####[facility] LABORATORYCLIA [id number] [place] [address] [place] Platelet mean volume (Bld) [Entitic vol] 10.5 fL Normal 9.0-12.7 [facility] Comment on above: Order Comment: Speci men Type: BLOOD SPECIMENOrdering Facility: [facility] Address: [address] [place] [address] Performed By: #### 5 8410-2 ####[facility]ORATORYCLIA [id number] [place] [address] [place] Platelets (Bld) [#/Vol] 154 10*3/uL Normal 150-400 [facility] Comment on above: Order Comment: Speci men Type: BLOOD SPECIMENOrdering Facility: [facility] Address: [address] [place] [address] Performed By: #### 5 8410-2 ####[facility]ORATORYCLIA [id number] [address] [place] RBC (Bld) [#/Vol] 2.97 10*6/uL Low 4.20-6.00 [facility] Comment on above: Order Comment: Speci men Type: BLOOD SPECIMENOrdering Facility: [facility] Address: [address] [place] [address] Performed By: #### 5 8410-2 ####[facility] LABORATORYCLIA [id number] [place] [address] [place] WBC (Bld) [#/Vol] 7.75 10*3/uL Normal 3.70-11.00 [facility] Comment on above: Order Comment: Speci rafita Type: BLOOD SPECIMENOrdering Facility: [facility] Address: [address] [place] [address] Performed By: #### 5 8410-2 ####[facility] LABORATORYCLIA [id number] [address] [place] Magnesium SerPl-mCncon 04-18 Magnesium [Mass/Vol] 2.0 mg/dL Normal 1.7-2.3 [facility] Comment on above: Order Comment: Speci men Type: BLOOD SPECIMENOrdering Facility: [facility] Address: [address] [place] [address] Performed By: #### 2 4321-2, 09941-0, 2777-1 ####[facility] LABORATORYCLIA [id number] [address] OF [place] Phosphate SerPl-mCncon 04-18 Phosphate [Mass/Vol] 2.8 mg/dL Normal 2.7-4.8 [facility] Comment on above: Order Comment: Speci rafita Type: BLOOD SPECIMENOrdering Facility: [facility] Address: [address] [place] [address] Performed By: #### 2 4321-2, 54742-6, 2777-1 ####[facility] LABORATORYCLIA [id number] [place] [id number] [place] ALLIED HEALTHon 04-17-2024 ALLIED HEALTH HNO ID: [id number] Author: RINA GÓMEZ RT(R) Service: Radiology Author Type: Technologist Type: [...] PATIENT PRESENTS WITH AN IMPLANTABLE OR ATTACHED DOOR ASSEMBLER: No RADIOLOGY DEPARTMENT: MR; Exam(s) Completed: Head: Routine Brain PERIPHERAL IV DATA: Not applicable SIGNED BY: Rina Gómez RT(R) April 17, 2024 12:12 PM Normal [facility] Basic metabolic 2000 panelon 04-17-2024 Anion gap [Moles/Vol] 10 mmol/L Normal 9-18 [facility] Comment on above: Order Comment: Speci men Type: BLOOD SPECIMENOrdering Facility: [facility] Address: [address] [place] [address] Performed By: #### 2 4321-2, , 2776-11 ####[facility] LABORATORYCLIA [id number] [place] [address] [place] Calcium [Mass/Vol] 8.4 mg/dL Low 8.5-10.2 [facility] Comment on above: Order Comment: Speci men Type: BLOOD SPECIMENOrdering Facility: [facility] Address: [address] [place] [address] Performed By: #### 2 4321-2, , 2776-11 ####[facility] LABORATORYCLIA [id number] [place] [address] [place] Chloride [Moles/Vol] 111 mmol/L High 97-105 [facility] Comment on above: Order Comment: Speci men Type: BLOOD SPECIMENOrdering Facility: [facility] Address: [address] [place] [address] Performed By: #### 2 4321-2, , 2776-11 ####[facility] LABORATORYCLIA [id number] [place] [address] [place] CO2 [Moles/Vol] 21 mmol/L Low 22-30 [facility] Comment on above: Order Comment: Speci men Type: BLOOD SPECIMENOrdering Facility: [facility] Address: [address] [place] [address] Performed By: #### 2 4321-2, , 2776-11 ####[facility]PITALIA [id number] [place] [id number] [place] [facility] Creatinine [Mass/Vol] 1.14 mg/dL Normal 0.73-1.22 [facility] Comment on above: Order Comment: Speci men Type: BLOOD SPECIMENOrdering Facility: [facility] Address: [address] [place] [address] Performed By: #### 2 4321-2, , 2776-11 ####[facility]PITALIA [id number] [address] Creatinine and Glomerular filtration rate.predicted panel (S/P/Bld) 67 mL/min/1.73m??? Normal >=60 [facility] Comment on above: Order Comment: Lyndsey eller Type: BLOOD SPECIMENOrdering Facility: [facility] Address: [address] [place] [address] Result Comment: Bianca mated Glomerular Filtration Rate [...] Performed By: #### 2 4321-2, , 2776-11 ####[facility] LABORATORYIA [id number] [place] [id number] [place] Glucose [Mass/Vol] 98 mg/dL Normal 74-99 [facility] Comment on above: Order Comment: Speci men Type: BLOOD SPECIMENOrdering Facility: [facility] Address: [address] [place] [address] Result Comment: The [place] [employer] (ADA) provides guidance for cutoff [...] Standards of Medical Care in Diabetes 2016, [place] [employer]. Diabetes Care. 2016.39(Suppl 1). Performed By: #### 2 4321-2, , 2776-11 ####[facility] LABORATORYCLIA [id number] [place] [address] [place] Potassium [Moles/Vol] 3.7 mmol/L Normal 3.7-5.1 [facility] Comment on above: Order Comment: Lyndsey eller Type: BLOOD SPECIMENOrdering Facility: [facility] Address: [address] [place] [address] Performed By: #### 2 4320-2, , 2776-11 ####[facility] LABORATORYCLIA [id number] [place] [address] [place] Sodium [Moles/Vol] 142 mmol/L Normal 136-144 [facility] Comment on above: Order Comment: Lyndsey eller Type: BLOOD SPECIMENOrdering Facility: [facility] Address: [address] [place] [address] Performed By: #### 2 4320-2, , 2776-11 ####[facility] LABORATORYCLIA [id number] [place] [id number] [place] Urea nitrogen [Mass/Vol] 26 mg/dL High 9-24 [facility] Comment on above: Order Comment: Lyndsey eller Type: BLOOD SPECIMENOrdering Facility: [facility] Address: [address] [place] [address] Performed By: #### 2 432-2, , 2776-11 ####[facility] LABORATORYCLIA [id number] [place] [address] [place] CBC panel Auto (Bld)on 04-17 Erythrocyte distribution width (RBC) [Ratio] 13.0 % Normal 11.5-15.0 [facility] Comment on above: Order Comment: Speci men Type: BLOOD SPECIMENOrdering Facility: [facility] Address: [address] [place] [address] Performed By: #### 5 8410-2 ####[facility] LABORATORYCLIA [id number] [address] [place] [facility] Hematocrit (Bld) [Volume fraction] 31.9 % Low 39.0-51.0 [facility] Comment on above: Order Comment: Speci men Type: BLOOD SPECIMENOrdering Facility: [facility] Address: [address] [place] [address] Performed By: #### 5 8410-2 ####[facility] LABORATORYCLIA [id number] [address] Hemoglobin (Bld) [Mass/Vol] 10.3 g/dL Low 13.0-17.0 [facility] Comment on above: Order Comment: Speci men Type: BLOOD SPECIMENOrdering Facility: [facility] Address: [address] [place] [address] Performed By: #### 5 8410-2 ####[facility]ORATORYCLIA [id number] [address] [place] MCH (RBC) [Entitic mass] 34.9 pg High 26.0-34.0 [facility] Comment on above: Order Comment: Speci men Type: BLOOD SPECIMENOrdering Facility: [facility] Address: [address] [place] [address] Performed By: #### 5 8410-2 ####[facility]ORATORYCLIA [id number] [address] [place] MCHC (RBC) [Mass/Vol] 32.3 g/dL Normal 30.5-36.0 [facility] Comment on above: Order Comment: Speci men Type: BLOOD SPECIMENOrdering Facility: [facility] Address: [address] [place] [address] Performed By: #### 5 8410-2 ####[facility]ATORYCLIA [id number] [address] OF [place] MCV (RBC) [Entitic vol] 108.1 fL High 80.0-100.0 [facility] Comment on above: Order Comment: Speci men Type: BLOOD SPECIMENOrdering Facility: [facility] Address: [facility] [place] [address] Performed By: #### 5 8410-2 ####[facility]ATORYCLIA [id number] [address] [place] Nucleated RBC (Bld) [#/Vol] 10*3/uL Normal <0.01 [facility] Comment on above: Order Comment: Speci men Type: BLOOD SPECIMENOrdering Facility: [facility] Address: [address] [place] [address] Performed By: #### 5 8410-2 ####[facility]ATORYCLIA [id number] [address] Platelet mean volume (Bld) [Entitic vol] 10.3 fL Normal 9.0-12.7 [facility] Comment on above: Order Comment: Speci men Type: BLOOD SPECIMENOrdering Facility: [facility] Address: [address] [place] [address] Performed By: #### 5 8410-2 ####[facility]ATORYCLIA [id number] [address] Platelets (Bld) [#/Vol] 157 10*3/uL Normal 150-400 [facility] Comment on above: Order Comment: Speci men Type: BLOOD SPECIMENOrdering Facility: [facility] Address: [facility] [place] [address] Performed By: #### 5 8410-2 ####[facility]ATORYCLIA [id number] [address] [place] RBC (Bld) [#/Vol] 2.95 10*6/uL Low 4.20-6.00 [facility] Comment on above: Order Comment: Speci men Type: BLOOD SPECIMENOrdering Facility: [facility] Address: [address] [place] [address] Performed By: #### 5 8410-2 ####[facility]ORATORYCLIA [id number] [place] [address] [place] WBC (Bld) [#/Vol] 8.05 10*3/uL Normal 3.70-11.00 [facility] Comment on above: Order Comment: Speci men Type: BLOOD SPECIMENOrdering Facility: [facility] Address: [address] [place], [place] [address] Performed By: #### 5 8410-2 ####[facility] LABORATORYCLIA [id number] [place] [id number] [facility] CT BRAIN WO IVCONon 04-17-[address] BRAIN WO IVCON * * *Final Report* * * DATE OF EXAM: Apr 17 2024 10:18PM [facility] 0504 - CT BRAIN WO IVCON / [...] immediate prior MRI. No significant mass effect. Public Health Doctor: MILTON Transcribe Date/Time: Apr 18 2024 12:23A Dictated by : LILLI GUSTAFSON MD This examination was interpreted and the report reviewed and electronically signed by: LILLI GUSTAFSON MD on Apr 18 2024 12:29AM EST [id number] Normal [facility] MRI BRAIN WO IVCONon 024 MRI BRAIN WO IVCON * * *Final Report* * * DATE OF EXAM: Apr 17 2024 12:41PM [facility] 0294 - MRI BRAIN WO IVCON / [...] hemorrhage. No space-occupying hematoma. Localized mass effect. Public Health Doctor: MILTON Transcribe Date/Time: Apr 17 2024 1:00P Dictated by : EVELIO GEORGE MD This examination was interpreted and the report reviewed and electronically signed by: EVELIO GEORGE MD on Apr 17 2024 1:05PM EST [id number] Normal [facility] Magnesium SerPl-mCncon 04-17 Magnesium [Mass/Vol] 2.1 mg/dL Normal 1.7-2.3 [facility] Comment on above: Order Comment: Speci men Type: BLOOD SPECIMENOrdering Facility: [facility] Address: [address] [place] [address] Performed By: #### 2 4321-2, 12621-6, 2777-1 ####[facility] LABORATORYCLIA [id number] [address] NUTRITIONon 04-17-2024 NUTRITION HNO ID: [id number] Author: DON DICKSON RD Service: Nutrition Therapy [...] RD DATE: 04/17/2024 TIME: 11:37 AM Normal [facility] Phosphate SerPl-mCncon 04-17 Phosphate [Mass/Vol] 2.6 mg/dL Low 2.7-4.8 [facility] Comment on above: Order Comment: Speci men Type: BLOOD SPECIMENOrdering Facility: [facility] Address: [address] [place] [address] Performed By: #### 2 4321-2, 55921-1, 2777-1 ####[facility] LABORATORYCLIA [id number] [place] [address] [facility] THERAPY NTon 04-17-2024 THERAPY NT HNO ID: [id number] Author: KATHRIN JEWELL RRT Service: Respiratory Therapy [...] 11:45. Will stay intubated for procedure) Normal [facility] US CAROTID RTon 04-17-2024 US CAROTID RT * * *Final Report* * * * * * SEE BOTTOM OF REPORT FOR ADDENDED TEXT * * * DATE OF EXAM: Apr 17 2024 4:02PM A2U 1099 - US CAROTID RT / PROCEDURE REASON: s/p stent * * * * Physician Interpretation * * * * Non-Invasive Vascular Laboratory [facility] Carotid Duplex Bilateral/Complete Date of service/time: 04/17/2024 3:46:46 PM [facility] Date of : [...] defects. Highest velocities > 300 are is [place] ICA distal to the stent. External carotid artery: Patent. Vertebral artery: Patent and antegrade flow noted. LEFT SIDE Common carotid artery: Patent With stent. Technologist: Lolis Mead Marjorie Ordering physician: JOANIE LARSON Interpreting physician: Corbin Hayes DO * * * Final (Updated) * * * RP Public Health Doctor: GURJIT Transcribe Date/Time: Apr 17 2024 3:46P Dictated by : CORBIN HAYES DO This examination was interpreted and the report reviewed and electronically signed by: CORBIN HAYES DO on Apr 18 2024 4:11PM EST This document has been addended by: CORBIN HAYES DO on Apr 19 2024 3:28PM EST [id number] Normal [facility] ALLIED HEALTHon 04-16-2024 ALLIED HEALTH HNO ID: [id number] Author: ELLYN SANCHEZ RT(R) Service: Radiology Author Type: Technologist Type: [...] PATIENT PRESENTS WITH AN IMPLANTABLE OR ATTACHED DOOR ASSEMBLER: No RADIOLOGY DEPARTMENT: General X-ray: Exam(s) Completed: Abdomen X-Ray: Abdomen PERIPHERAL IV DATA: Not applicable SIGNED BY: RT Aimee(R) April 16, 2024 1:17 PM Normal [facility] ANES POSTPROC EVALon 024 ANES POSTPROC EVAL HNO ID: [id number] Author: FAHAD VILLEDA MD Service: Anesthesiology Author Type: Anesthesiologist Type: Anesthesia Postprocedure Evaluation Filed: 04/16/2024 00:30 Note Text: POST ANESTHESIA EVALUATION NOTE : 1950 Procedure Summary Date: 04/15/24 Room / Location: [place] NEURO IR / [place] NEUR[place] Anesthesia Start: 2240 Anesthesia Stop: Procedure: [...] April 16, 2024 TIME: 12:30 AM CSN: [id number] Normal [facility] ASPIRIN/CLOPIDOGREL RESISTAN CEon 04-16-2024 Platelet aggregation ADP induced High dose (PRP) [Rel units/Vol] 2 % Max Low 65-93 [facility] Comment on above: Order Comment: Speci men Type: BLOOD SPECIMENOrdering Facility: [facility] Address: [address] [place] [address] Performed By: #### A SPCLP ####[facility] LABIA [id number] [place] [address] [place] Platelet aggregation arachidonate induced 500 ug/mL (PRP) [Rel units/Vol] 1 % Max Low 75-100 [facility] Comment on above: Order Comment: Speci men Type: BLOOD SPECIMENOrdering Facility: [facility] Address: [address] [place] [address] Performed By: #### A SPCLP ####[facility] LABCLIA [id number] [place] [address] [place] BRIEF OP NOTon 04-16-2024 BRIEF OP NOT HNO ID: [id number] Author: RAMIREZ CANTOR MD Service: Neuroendovascular Intervention Author Type: Physician Type: Brief Op Note Filed: 04/16/2024 00:22 Note Text: BRIEF OP/PROCEDURE NOTE NEURO INTERVENTIONAL PROCEDURE DATE: April 16, 2024 LOG ID: [id number] Surgery/Procedure Date: 04/15/2024 Incision/Procedure Start Time: 10:51 PM Incision Close/Procedure End Time: 0010 on 04/16. Anesthesia: General PRIMARY PROCEDURALIST: Ramirez Cantor M.D. CONSULTING TECHNICAL MANAGER(S): None. CASE STATUS: Inpatient/Emergent PROCEDURE: Arterial Access [...] Neuro Interventional Surgery April 16, 2024 Normal [facility] Basic metabolic 2000 panelon 04-16-2024 Anion gap [Moles/Vol] 6 mmol/L Low 9-18 [facility] Comment on above: Order Comment: Speci men Type: BLOOD SPECIMENOrdering Facility: [facility] Address: [address] [place] [address] [place] [address] Performed By: #### 2 4321-2, 16492-0, 2776-1, 27240-0 ####[facility] LABORATORYCLIA [id number] [place] [address] [place] Calcium [Mass/Vol] 7.8 mg/dL Low 8.5-10.2 [facility] Comment on above: Order Comment: Speci men Type: BLOOD SPECIMENOrdering Facility: [facility] Address: [address] [place] [address] Performed By: #### 2 4321-2, 96041-7, 2776-, 23837-6 ####[facility]ORATORYCLIA [id number] [place] [address] [place] Chloride [Moles/Vol] 112 mmol/L High 97-105 [facility] Comment on above: Order Comment: Speci men Type: BLOOD SPECIMENOrdering Facility: [facility] Address: [address] [place], [place] [address] Performed By: #### 2 4321-2, , 2776-, 91608-3 ####[facility]ORATORYCLIA [id number] [place] [address] [place] CO2 [Moles/Vol] 19 mmol/L Low 22-30 [facility] Comment on above: Order Comment: Speci men Type: BLOOD SPECIMENOrdering Facility: [facility] Address: [facility] [place] [address] Performed By: #### 2 4321-2, 04766-3, 2776-11, 97370-8 ####[facility]ORATORYCLIA [id number] [place] [address] [place] Creatinine [Mass/Vol] 1.42 mg/dL High 0.73-1.22 [facility] Comment on above: Order Comment: Speci men Type: BLOOD SPECIMENOrdering Facility: [facility] Address: [facility] [place] [address] Performed By: #### 2 4321-2, 65814-8, 2776-1, 33059-7 ####[facility] HOSPITALIA [id number] [place] [address] [place] Creatinine and Glomerular filtration rate.predicted panel (S/P/Bld) 52 mL/min/1.73m??? Low >=60 [facility] Comment on above: Order Comment: Lyndsey eller Type: BLOOD SPECIMENOrdering Facility: [facility] Address: [address] [place] [address] Result Comment: Bianca mated Glomerular Filtration Rate [...] actual GFR. Performed By: #### 2 4321-2, 38583-3, 2776-11, ####[facility] HOSPITALIA [id number] [place] [address] [place] Glucose [Mass/Vol] 106 mg/dL High 74-99 [facility] Comment on above: Order Comment: Lyndsey eller Type: BLOOD SPECIMENOrdering Facility: [facility] Address: [address] [place] [address] Result Comment: The [place] Diabetes Association (ADA) provides guidance for cutoff [...] Standards of Medical Care in Diabetes 2016, [place] [employer]. Diabetes Care. 2016.39(Suppl 1). Performed By: #### 2 4321-2, 65696-0, 2777, 15422-8 ####[facility] LABORATORYCLIA [id number] [place] [address] [place] Potassium [Moles/Vol] 4.7 mmol/L Normal 3.7-5.1 [facility] Comment on above: Order Comment: Speci men Type: BLOOD SPECIMENOrdering Facility: [facility] Address: [address] [place] [address] Performed By: #### 2 4321-2, 85973-2, 2777-, 95849-0 ####[facility] LABORATORYCLIA [id number] [address] [place] [facility] Sodium [Moles/Vol] 137 mmol/L Normal 136-144 [facility] Comment on above: Order Comment: Speci men Type: BLOOD SPECIMENOrdering Facility: [facility] Address: [address] [place] [address] Performed By: #### 2 4321-2, 38562-4, 277-, 47686-8 ####[facility] LABORATORYCLIA [id number] [address] STATES [facility] Urea nitrogen [Mass/Vol] 36 mg/dL High 9-24 [facility] Comment on above: Order Comment: Speci men Type: BLOOD SPECIMENOrdering Facility: [facility] Address: [address] [place] [address] Performed By: #### 2 4321-2, 66070-2, 2777-, 84798-6 ####[facility] LABORATORYCLIA [id number] [address] [place] [facility] CBC panel Auto (Bld)on 04-16 Erythrocyte distribution width (RBC) [Ratio] 12.9 % Normal 11.5-15.0 [facility] Comment on above: Order Comment: Speci men Type: BLOOD SPECIMENOrdering Facility: [facility] Address: [address] [place] [address] Performed By: #### 5 8410-2 ####[facility]ORATORYCLIA [id number] [address] Hematocrit (Bld) [Volume fraction] 32.7 % Low 39.0-51.0 [facility] Comment on above: Order Comment: Speci men Type: BLOOD SPECIMENOrdering Facility: [facility] Address: [address] [place] [address] Performed By: #### 5 8410-2 ####[facility]ORATORYCLIA [id number] [address] [place] [facility] Hemoglobin (Bld) [Mass/Vol] 10.9 g/dL Low 13.0-17.0 [facility] Comment on above: Order Comment: Speci men Type: BLOOD SPECIMENOrdering Facility: [facility] Address: [address] [place] [address] Performed By: #### 5 8410-2 ####[facility]ORATORYCLIA [id number] [address] [place] MCH (RBC) [Entitic mass] 35.2 pg High 26.0-34.0 [facility] Comment on above: Order Comment: Speci men Type: BLOOD SPECIMENOrdering Facility: [facility] Address: [address] [place] [address] Performed By: #### 5 8410-2 ####[facility]ORATORYCLIA [id number] [address] OF [place] MCHC (RBC) [Mass/Vol] 33.3 g/dL Normal 30.5-36.0 [facility] Comment on above: Order Comment: Speci men Type: BLOOD SPECIMENOrdering Facility: [facility] Address: [address] [place] [address] Performed By: #### 5 8410-2 ####[facility]ATORYCLIA [id number] [address] [place] MCV (RBC) [Entitic vol] 105.5 fL High 80.0-100.0 [facility] Comment on above: Order Comment: Speci men Type: BLOOD SPECIMENOrdering Facility: [facility] Address: [address] [place] [address] Performed By: #### 5 8410-2 ####[facility]ORATORYCLIA [id number] [place] [address] [place] Nucleated RBC (Bld) [#/Vol] 10*3/uL Normal <0.01 [facility] Comment on above: Order Comment: Speci men Type: BLOOD SPECIMENOrdering Facility: [facility] Address: [address] [place] [address] Performed By: #### 5 8410-2 ####[facility]ATORYCLIA [id number] [address] [place] Platelet mean volume (Bld) [Entitic vol] 10.5 fL Normal 9.0-12.7 [facility] Comment on above: Order Comment: Speci men Type: BLOOD SPECIMENOrdering Facility: [facility] Address: [address] [place] [address] Performed By: #### 5 8410-2 ####[facility]ORATORYCLIA [id number] [address] [place] Platelets (Bld) [#/Vol] 196 10*3/uL Normal 150-400 [facility] Comment on above: Order Comment: Speci men Type: BLOOD SPECIMENOrdering Facility: [facility] Address: [address] [place] [address] Performed By: #### 5 8410-2 ####[facility] LABORATORYCLIA [id number] [place] [address] [place] RBC (Bld) [#/Vol] 3.10 10*6/uL Low 4.20-6.00 [facility] Comment on above: Order Comment: Speci men Type: BLOOD SPECIMENOrdering Facility: [facility] Address: [address] [place] [address] Performed By: #### 5 8410-2 ####[facility] LABORATORYCLIA [id number] [address] [place] WBC (Bld) [#/Vol] 9.65 10*3/uL Normal 3.70-11.00 [facility] Comment on above: Order Comment: Speci men Type: BLOOD SPECIMENOrdering Facility: [facility] Address: [address] [place] [address] Performed By: #### 5 8410-2 ####[facility] LABORATORYCLIA [id number] [address] Erythrocyte distribution width (RBC) [Ratio] 12.6 % Normal 11.5-15.0 [facility] Comment on above: Order Comment: Speci men Type: BLOOD SPECIMENOrdering Facility: [facility] Address: [address] [place] [address] Performed By: #### 5 8410-2 ####[facility] LABORATORYCLIA [id number] [address] OF [facility] Hematocrit (Bld) [Volume fraction] 33.8 % Low 39.0-51.0 [facility] Comment on above: Order Comment: Speci men Type: BLOOD SPECIMENOrdering Facility: [facility] Address: [address] [place] [address] Performed By: #### 5 8410-2 ####[facility] LABORATORYCLIA [id number] [address] [place] [facility] Hemoglobin (Bld) [Mass/Vol] 11.2 g/dL Low 13.0-17.0 [facility] Comment on above: Order Comment: Speci men Type: BLOOD SPECIMENOrdering Facility: [facility] Address: [address] [place] [address] Performed By: #### 5 8410-2 ####[facility] LABORATORYCLIA [id number] [address] STATES [facility] MCH (RBC) [Entitic mass] 35.1 pg High 26.0-34.0 [facility] Comment on above: Order Comment: Speci men Type: BLOOD SPECIMENOrdering Facility: [facility] Address: [address] [place] [address] Performed By: #### 5 8410-2 ####[facility] LABORATORYCLIA [id number] [place] [address] [place] MCHC (RBC) [Mass/Vol] 33.1 g/dL Normal 30.5-36.0 [facility] Comment on above: Order Comment: Speci men Type: BLOOD SPECIMENOrdering Facility: [facility] Address: [address] [place] [address] Performed By: #### 5 8410-2 ####[facility]ORATORYCLIA [id number] [address] [place] MCV (RBC) [Entitic vol] 106.0 fL High 80.0-100.0 [facility] Comment on above: Order Comment: Speci men Type: BLOOD SPECIMENOrdering Facility: [facility] Address: [address] [place] [address] Performed By: #### 5 8410-2 ####[facility]ORATORYCLIA [id number] [address] [place] Nucleated RBC (Bld) [#/Vol] 10*3/uL Normal <0.01 [facility] Comment on above: Order Comment: Speci men Type: BLOOD SPECIMENOrdering Facility: [facility] Address: [address] [place] [address] Performed By: #### 5 8410-2 ####[facility]ORATORYCLIA [id number] [address] [place] Platelet mean volume (Bld) [Entitic vol] 10.3 fL Normal 9.0-12.7 [facility] Comment on above: Order Comment: Speci men Type: BLOOD SPECIMENOrdering Facility: [facility] Address: [address] [place] [address] Performed By: #### 5 8410-2 ####[facility] LABORATORYCLIA [id number] [place] [address] [place] Platelets (Bld) [#/Vol] 193 10*3/uL Normal 150-400 [facility] Comment on above: Order Comment: Speci men Type: BLOOD SPECIMENOrdering Facility: [facility] Address: [address] [place] [address] Performed By: #### 5 8410-2 ####[facility] LABORATORYCLIA [id number] [place], [place] [address] [place] [address] [facility] RBC (Bld) [#/Vol] 3.19 10*6/uL Low 4.20-6.00 [facility] Comment on above: Order Comment: Speci men Type: BLOOD SPECIMENOrdering Facility: [facility] Address: [address] [place] [address] Performed By: #### 5 8410-2 ####[facility] LABORATORYCLIA [id number] [address] WBC (Bld) [#/Vol] 12.12 10*3/uL High 3.70-11.00 [facility] Comment on above: Order Comment: Speci men Type: BLOOD SPECIMENOrdering Facility: [facility] Address: [address] [place] [address] Performed By: #### 5 8410-2 ####[facility] LABORATORYCLIA [id number] [address] CONSULTon 04-16-2024 CONSULT HNO ID: [id number] Author: ZE STOCK MD Service: Neurology General [...] see comment (zetia) Pre-morbid mRS: Premorbid Modified [place] Score: 2 - Slight disability - unable [...] 28 ( (more content not included)... Normal [facility] [facility] CT BRAIN WO IVCONon 04-16-[address] BRAIN WO IVCON * * *Final Report* * * DATE OF EXAM: Apr 16 2024 10:35PM [place] [id number] - CT BRAIN WO IVCON / PROCEDURE [...] effect. Previously seen contrast staining has resolved. Public Health Doctor: PSCB Transcribe Date/Time: Apr 17 2024 1:17A Dictated by : LILLI GUSTAFSON MD This examination was interpreted and the report reviewed and electronically signed by: LILLI GUSTAFSON MD on Apr 17 2024 1:24AM EST [id number] Normal [facility] CT BRAIN WO IVCON * * *Final Report* * * DATE OF EXAM: Apr 16 2024 4:22AM [facility] 0504 - CT BRAIN WO IVCON / [...] thickening. Partially imaged endotracheal and feeding tubes. Mine Car Repairer (topogram) images: Non-diagnostic. IMPRESSION: Dual energy brain CT shows evolving large acute right-sided MCA distribution infarction with contrast staining and mild mass effect. No evidence of hemorrhagic transformation. Other details above. Public Health Doctor: MILTON Transcribe Date/Time: Apr 16 2024 4:34A Dictated by : GALEN MORALES MD This examination was interpreted and the report reviewed and electronically signed by: GALEN MORALES MD on Apr 16 2024 4:43AM EST [id number] Normal [facility] Calcium.ionized [Moles/Vol]o n 04-16-2024 Calcium.ionized (BldV) [Mass/Vol] 1.21 mmol/L Normal 1.08-1.30 [facility] Comment on above: Order Comment: Speci men Type: BLOOD SPECIMENOrdering Facility: [facility] Address: [address] [place] [address] Performed By: #### 1 995-0 ####[facility]ORATORYCLIA [id number] [place] [id number] [place] Calcium.ionized adjusted to pH 7.4 (Bld) [Moles/Vol] 1.18 mmol/L Normal 1.08-1.30 [facility] Comment on above: Order Comment: Speci men Type: BLOOD SPECIMENOrdering Facility: [facility] Address: [address] [place] [address] Performed By: #### 1 995-0 ####[facility]ATORYCLIA [id number] [place] [id number] [place] ECHO WITH AGITATED SALINE CO NTRASTon 04-16-2024 ECHO WITH AGITATED SALINE CONTRAST Echocardiography Report: Transthoracic Echo [facility] Date of service: 04/16/2024 10:23:34 AM [facility] Ordering physician: MONIK ALLEN Indication: Stroke Technologist: Nikole De La Torre [facility] Interpreting physician: Jami Bonner MD PATIENT: Name: [...] * * Final * * * CC [employer] : [id number] Normal [facility] HIGH SENSITIVITY TROPONIN To n 04-16-2024 Troponin T.cardiac High sensitivity method [Mass/Vol] 37 ng/L High <12 [facility] Comment on above: Order Comment: Lyndsey eller Type: BLOOD SPECIMENOrdering Facility: [facility] Address: [address] [place] [address] Result Comment: When assessing risk for acute [...] day MACE. Performed By: #### H STNT ####[facility] LABORATORYCLIA [id number] [address] [facility] HIGH SENSITIVITY TROPONIN T (SECOND)on 04-16-2024 Troponin T.cardiac High sensitivity method [Mass/Vol] 38 ng/L High <12 [facility] Comment on above: Order Comment: Lyndsey eller Type: BLOOD SPECIMENOrdering Facility: [facility] Address: [address] [place] [address] Result Comment: When assessing risk for acute [...] 30 day MACE. Performed By: #### L [id number] ####[facility]ATORYCLIA [id number] [place] [id number] [place] HIGH SENSITIVITY TROPONIN T (THIRD) 3 HRS AFTER INITIALon 04-16-2024 Troponin T.cardiac High sensitivity method [Mass/Vol] 42 ng/L High <12 [facility] Comment on above: Order Comment: Speci men Type: BLOOD SPECIMENOrdering Facility: [facility] Address: [address], [place] [address] Result Comment: When assessing risk for acute [...] 30 day MACE. Performed By: #### L [id number] ####[facility]ATORYCLIA [id number] [place] [address] [place] HISTORY PHYSICALon HISTORY PHYSICAL HNO ID: [id number] Author: CARLOS VAUGHN MD Service: Neurology ICU [...] Left Forearm 18 Gauge <1 day Peripheral 04/15/24 2124 Right Forearm 18 Gauge <1 day Airway [...] his who is admitted to the hospital. [facility] 04/15. iNIHSS 23. CT early ischemia in R insula. 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 TNK given at 2157. Pt s/p EVT tici [address] Cantor. Pt remains intubated post procedure. Aggrastat gtt per Dr Cantor. Pt admitted to NSICU for further management. Active Hospital Problems as of 04/16/2024 Noted - Resolved POA Hospital * (Principal) Acute ischemic right MCA stroke (HCC) 04/16/2024 - Present Yes Current Assessment AND Plan P/w left hemiplegia, aphasia, and decreased sensation [facility] 04/[address] early ischemia in [...] Consult stroke neurology Daily labs Bowel regimen: senna S On mechanically assisted ventilation (HCC) 04/16/2024 - Present No Current Assessment AND Plan Peridex per protocol Protonix 40mg daily Left hemiplegia (HCC) 04/16/2024 - Present Yes Facial droop due to acute cerebrovascular accident (CVA) ([facility]) (HCC) 04/16/2024 - Present Yes Aphasia 04/16/2024 - Present Yes Primary hypertension 04/16/2024 - Present Yes Mixed hyperlipidemia 04/16/2024 - Present Yes History of aortic valve replacement 04/16/2024 - Present Yes JAIRO (obstructive sleep apnea) 04/16/2024 - Present Yes Acute respiratory failure ([facility]) 04/16/2024 - Present No Current Assessment AND [...] INTRAVENOUS CON (more content not included)... Normal [facility] HbA1c (Bld)on 04-16-2024 Average glucose Estimated from glycated hemoglobin (Bld) [Mass/Vol] 114 mg/dL Normal [facility] Comment on above: Order Comment: Speci men Type: BLOOD SPECIMENOrdering Facility: [facility] Address: [address] [place] [address] Result Comment: eAG: (Estimated average glucose) is a calculated value from HgbA1c and is admitting representative of the average blood glucose level in the last 2-3 month period. Performed By: #### 5 5454-3 ####[facility] LABCLIA [id number] [address] [place] HbA1c (Bld) [Mass fraction] 5.6 % Normal 4.3-5.6 [facility] Comment on above: Order Comment: Speci men Type: BLOOD SPECIMENOrdering Facility: [facility] Address: [address] [place] [address] Result Comment: Amer ican Diabetes Association guidelines indicate that patients with HgbA1c in the range 5.7-6.4% are at increased risk for development of diabetes, and intervention by lifestyle modification may be beneficial. HgbA1c greater or equal to 6.5% is considered diagnostic of diabetes. Performed By: #### 5 5454-3 ####[facility] LABCLIA [id number] [place] [address] [place] Lipid 1996 panelon 4 Cholesterol [Mass/Vol] 192 mg/dL Normal <200 [facility] Comment on above: Order Comment: Speci men Type: BLOOD SPECIMENOrdering Facility: [facility] Address: [address] [place] [address] Result Comment: <200 mg/dL, Desirable 200-239 mg/dL, Borderline high >239 mg/dL, High Performed By: #### 2 4321-2, 21112-2, 2776-11, 79270-9 ####[facility]ATORYCLIA [id number] [address] STATES [facility] Cholesterol in HDL [Mass/Vol] 40 mg/dL Normal >39 [facility] Comment on above: Order Comment: Speci [facility] Type: BLOOD SPECIMENOrdering Facility: [facility] Address: [address] [place] [address] Result Comment: 40-5 9 mg/dL, Acceptable >59 mg/dL, High: Negative risk factor for coronary heart disease <40 mg/dL, Low: Positive risk factor for coronary heart disease Performed By: #### 2 4321-2, 63937-9, 27705-18, 74899-6 ####[facility]ATORYCLIA [id number] [place] [address] [place] Cholesterol in LDL [Mass/Vol] 103 mg/dL High <100 [facility] Comment on above: Order Comment: Speci men Type: BLOOD SPECIMENOrdering Facility: [facility] Address: [address] [place] [address] Result Comment: <100 mg/dL, Optimal 100-129 mg/dL, Near optimal/above optimal 130-159 mg/dL, Borderline high 160-189 mg/dL, High >189 mg/dL, Very high Secondary prevention optimal LDL Cholesterol levels are recommended to be < 70 mg/dL Performed By: #### 2 4321-2, , 2776-11, ####[facility]ATORYCLIA [id number] [address] Cholesterol in LDL/Cholesterol in HDL [Mass ratio] 2.58 {ratio} High <2.54 [facility] Comment on above: Order Comment: Speci men Type: BLOOD SPECIMENOrdering Facility: [facility] Address: [address] [place] [address] Result Comment: Refe bernadette: 1. National Cholesterol Education Program ATP III Guideline At-A-Glance Quick Desk Reference: National Heart, Lung, and Blood Damar. National Institutes of Health. 2001: NIH Publication No. 01-3305. 2. An International Atherosclerosis Society position paper: global recommendations for the management of dyslipidemia: executive summary, Atherosclerosis. 2014: 232(2):410-413. Performed By: #### 2 4321-2, , 2776-11, ####[facility]ATORYCLIA [id number] [place] [id number] [place] Cholesterol in VLDL [Mass/Vol] 49 mg/dL High <30 [facility] Comment on above: Order Comment: Speci men Type: BLOOD SPECIMENOrdering Facility: [facility] Address: [address] [place] [address] Performed By: #### 2 4321-2, , 2776-11, ####[facility]ATORYCLIA [id number] [place] [address] [place] Cholesterol non HDL [Mass/Vol] 152 mg/dL High <130 [facility] Comment on above: Order Comment: Speci men Type: BLOOD SPECIMENOrdering Facility: [facility] Address: [address] [place] [address] Result Comment: <130 mg/dL, Optimal 130-159 mg/dL, Near optimal/above optimal 160-189 mg/dL, Borderline high 190-219 mg/dL, High >219 mg/dL, Very high Secondary prevention optimal non HDL Cholesterol levels are recommended to be <100 mg/dL Performed By: #### 2 4321-2, , 2776-11, 98023-5 ####[facility]ATORYCLIA [id number] [address] [place] Cholesterol.total/Geno sterol in HDL [Mass ratio] 4.80 {ratio} Normal <5.10 [facility] Comment on above: Order Comment: Speci men Type: BLOOD SPECIMENOrdering Facility: [facility] Address: [address] [place] [address] Performed By: #### 2 4321-2, , 2776-11, 37612-6 ####[facility]ATORYCLIA [id number] [address] [place] FASTING TIME 8 hrs Normal [facility] Comment on above: Order Comment: Speci men Type: BLOOD SPECIMENOrdering Facility: [facility] Address: [address] [place] [address] Performed By: #### 2 4321-2, , 2776-11, 66409-1 ####[facility]ATORYCLIA [id number] [address] [place] Triglyceride [Mass/Vol] 243 mg/dL High <150 [facility] Comment on above: Order Comment: Speci men Type: BLOOD SPECIMENOrdering Facility: [facility] Address: [address] [place] [address] Result Comment: <150 mg/dL, Normal 150-199 mg/dL, Borderline high 200-499 mg/dL, High >499 mg/dL, Very high Performed By: #### 2 4321-2, 74621-0, 2777-1, 55335-7 ####[facility]ATORYCLIA [id number] [place] [address] [place] [facility] Magnesium SerPl-Alleg[facility]y Health Networkon 04-16 Magnesium [Mass/Vol] 1.9 mg/dL Normal 1.7-2.3 [facility] Comment on above: Order Comment: Speci men Type: BLOOD SPECIMENOrdering Facility: [facility] Address: [facility] [place] [address] Performed By: #### 2 4321-2, 85161-1, 2777-1, 35147-5 ####[facility]ORATORYCLIA [id number] [place] [address] [place] NIL IR US GUIDE [...] 0010 on 04/16. ATTENDING: Ramirez Cantor MD. CONSULTING TECHNICAL MANAGER (FELLOW): None. The procedure was performed solely [...] the s (more content not included)... Normal [facility] on 04-16-2024 NIL [facility] * * *Final Report* * * DATE OF EXAM: Apr 16 2024 12:26AM A6A 0860 - NIL [facility] TH[facility] INTRACRANIAL / PROCEDURE REASON: stroke * [...] 0010 on 04/16. ATTENDING: Ramirez Cantor MD. CONSULTING TECHNICAL MANAGER (FELLOW): None. The procedure was performed solely [...] the stra (more content not included)... Normal [facility] NURSING PROGon 04-16-2024 NURSING PROG HNO ID: [id number] Author: NIKI KENNEDY RN Service: Nursing Author Type: Registered Nurse Type: Nursing Progress Note Filed: 04/17/2024 06:52 Note Text: Pt wallet given to daughter at bedside, verbal ok from daughter to give Ann (pt friend from outside group) limited updates. Normal [facility] NURSING PROG HNO ID: [id number] Author: NIKI KENNEDY RN Service: Nursing Author Type: Registered Nurse Type: Nursing Progress Note Filed: 04/16/2024 19:42 Note Text: Nursing Progress: Topic: RESTRAINT NON-VIOLENT PATIENT NAME: Jonathon Perales Patient Location: [place] [address] [address] Room: [place] [address] The patient demonstrates Lack of Understanding/Ability to [...] 2024 TIME: 7:40 PM Niki Kennedy RN [facility] NURSING PROG HNO ID: [id number] Author: NIKI KENNEDY RN Service: Nursing Author Type: Registered Nurse Type: Nursing Progress Note Filed: 04/16/2024 08:22 Note Text: Nursing Progress: Topic: RESTRAINT NON-VIOLENT PATIENT NAME: Jonathon Perales Patient Location: [place] [address] Room: [place] [address] The patient demonstrates Lack of Understanding/Ability to [...] 2024 TIME: 8:21 AM Niki Kennedy RN [facility] NUTRITIONon 04-16-2024 NUTRITION HNO ID: [id number] Author: DON DICKSON RD Service: Nutrition Therapy [...] Medications and treatments, Intubation Estimated kilocalorie needs: 1345-2300 Calorie Calculation Method: 25-30 kcals/kg Estimated protein [...] and up) IMPACT PEPTIDE 1.5 (RD APPROVAL) [place] Approved Secondary TF Product (Do Not Change) [...] April 16, 2024 TIME: 12:40 PM Normal [facility] Phosphate SerPl-mCncon 04-16 Phosphate [Mass/Vol] 2.9 mg/dL Normal 2.7-4.8 [facility] Comment on above: Order Comment: Speci men Type: BLOOD SPECIMENOrdering Facility: [facility] Address: [address] [place] [address] Performed By: #### 2 4321-2, 92262-7, 2777-1, 15898-5 ####[facility]ORATORYCLIA [id number] [address] [facility] STAPHYLOCOCCUS AUREUS AND MR SA SCREEN, PCR, NASALon 04-16-2024 S. aureus and MRSA panel PRIYANKA+probe (Nose) Not detected Normal Not Detected [facility] Comment on above: Order Comment: Speci men Type: SWABOrdering Facility: [facility] Address: [address] [place] [address] Performed By: #### S APCR ####[facility]ORATORYCLIA [id number] [address] [facility] THERAPY NTon 04-16-2024 THERAPY NT HNO ID: [id number] Author: TOSHA JACOBSON OTR/Eriberto Service: Occupational Therapy Author Type: Occupational Therapist Type: Therapy (PT/OT/Speech/Resp) Filed: 04/16/2024 14:36 Note Text: OCCUPATIONAL THERAPY MISSED VISIT SERVICE DATE: 04/16/2024 SERVICE TIME: (P) 1436 ROOM: [place] [address] Patient not seen due to (P) Clinical Appropriateness. Will continue to follow. SIGNATURE: YELENA Meneses/Eriberto PATIENT NAME: Jonathon Perales DATE: April 16, 2024 TIME: 2:36 PM Normal [facility] THERAPY NT HNO ID: [id number] Author: KATHRIN JEWELL RRT Service: Respiratory Therapy [...] Rate > 35bpm (RR 46, agitation) Normal [facility] THERAPY NT HNO ID: [id number] Author: SHAHID PONCE CCC-WARP KNITTER Service: Speech/Swallow Author Type: Speech Language Pathologist Type: Therapy (PT/OT/Speech/Resp) Filed: 04/16/2024 09:25 Note Text: SPEECH THERAPY MISSED VISIT SERVICE DATE: 04/16/2024 SERVICE TIME: 923 ROOM: [place] [address] Patient not seen due to Clinical Appropriateness. Intubated. SIGNATURE: MELVIN Gross PATIENT NAME: Jonathon Perales DATE: April 16, 2024 TIME: 9:25 AM Normal [facility] THERAPY NT HNO ID: [id number] Author: KATHRIN JEWELL, NEEDLE VALVE OPERATOR Service: Respiratory Therapy Author Type: Registered Resp Therapist Type: Therapy (PT/OT/Speech/Resp) Filed: 04/16/2024 09:11 Note Text: 04/16/24 0910 Daily Spontaneous Breathing Trial (SBT) Per nursing, SAT passed No ALL Criteria Met for Successful Wean Screen No, SBT deferred (non-surgical) Reason Wean Screen Failed (Surgical) Patient not awake or following commands (per Dr. Tavarez, no plans to extubate today) Normal [facility] THERAPY NT HNO ID: [id number] Author: NORA AVENDAÑO, PT Service: Physical Therapy Author Type: Physical Therapist Type: Therapy (PT/OT/Speech/Resp) Filed: 04/16/2024 09:04 Note Text: PHYSICAL THERAPY MISSED VISIT SERVICE DATE: 04/16/2024 SERVICE TIME: ROOM: [place] [address] Patient not seen due to Hold Monitor AND Reassess (Patient on bedrest for 24 hours, will re-attempt as able.). SIGNATURE: Nora Avendaño, PT PATIENT NAME: Jonathon Perales DATE: April 16, 2024 TIME: 9:04 AM Normal [facility] TOXICOLOGY SCREEN, ROUTINE U RINEon 04-16-2024 Amphetamines Confirm (U) [Mass/Vol] Negative Normal Negative [facility] Comment on above: Order Comment: Speci men Type: URINE SPECIMENOrdering Facility: [facility] Address: [address] [place] [address] Result Comment: Cuto ff threshold at 1000 ng/mL. Performed By: #### U TOX2 ####[facility]ORATORYCLIA [id number] [place] [address] [place] BARBITURATES, URINE Negative Normal Negative [facility] Comment on above: Order Comment: Speci men Type: URINE SPECIMENOrdering Facility: [facility] Address: [address] [place] [address] Result Comment: Cuto ff threshold at 200 ng/mL. Performed By: #### U TOX2 ####[facility]ATORYCLIA [id number] [place] [address] [place] BENZODIAZEPINES, UR Positive Abnormal Negative [facility] Comment on above: Order Comment: Speci men Type: URINE SPECIMENOrdering Facility: [facility] Address: [address] [place] [address] Result Comment: Cuto ff threshold at 200 ng/mL. Performed By: #### U TOX2 ####[facility]ATORYCLIA [id number] [place] [address] [place] Cannabinoids Screen Ql (U) Negative Normal Negative [facility] Comment on above: Order Comment: Speci men Type: URINE SPECIMENOrdering Facility: [facility] Address: [address] [place] [address] Result Comment: Cuto ff threshold at 50 ng/mL. Performed By: #### U TOX2 ####[facility]ORYCLIA [id number] [place] [address] [place] Cocaine Ql (U) Negative Normal Negative [facility] Comment on above: Order Comment: Speci men Type: URINE SPECIMENOrdering Facility: [facility] Address: [address] [place] [address] Result Comment: Cuto ff threshold at 300 ng/mL. Performed By: #### U TOX2 ####[facility]ATORYCLIA [id number] [address] [place] [facility] Ethanol (U) [Mass/Vol] <11 Normal <11 [facility] Comment on above: Order Comment: Speci men Type: URINE SPECIMENOrdering Facility: [facility] Address: [address] [place] [address] Performed By: #### U TOX2 ####[facility]ORATORYCLIA [id number] [address] Opiates Screen Ql (U) Negative Normal Negative [facility] Comment on above: Order Comment: Speci men Type: URINE SPECIMENOrdering Facility: [facility] Address: [address] [place] [address] Result Comment: Cuto ff threshold at 300 ng/mL. Performed By: #### U TOX2 ####[facility]ATORYCLIA [id number] [address] oxyCODONE cutoff Screen (U) [Mass/Vol] Negative Normal Negative [facility] Comment on above: Order Comment: Speci men Type: URINE SPECIMENOrdering Facility: [facility] Address: [address] [place] [address] Result Comment: Cuto ff threshold at 100 ng/mL. Performed By: #### U TOX2 ####[facility]ATORYCLIA [id number] [address] Phencyclidine Ql (U) Negative Normal Negative [facility] Comment on above: Order Comment: Speci men Type: URINE SPECIMENOrdering Facility: [facility] Address: [address] [place] [address] Result Comment: Cuto ff threshold at 25 ng/mL. Performed By: #### U TOX2 ####[facility]ATORYCLIA [id number] [address] Urinalysis complete panel (U )on 04-16-2024 Bilirubin Ql (U) Negative Normal Negative [facility] Comment on above: Order Comment: Speci men Type: URINE SPECIMENOrdering Facility: [facility] Address: [address] [place] [address] Performed By: #### 2 4356-8 ####[facility]ATORYCLIA [id number] [address] [place] Clarity (Unsp spec) Clear Normal Clear [facility] Comment on above: Order Comment: Speci men Type: URINE SPECIMENOrdering Facility: [facility] Address: [address] [place] [address] Performed By: #### 2 4356-8 ####[facility]ORATORYCLIA [id number] [address] [place] Color (U) Light Yellow Normal yellow [facility] Comment on above: Order Comment: Speci men Type: URINE SPECIMENOrdering Facility: [facility] Address: [address] [place] [address] Performed By: #### 2 4356-8 ####[facility]ORATORYCLIA [id number] [address] [place] Glucose Test strip (U) [Mass/Vol] Negative Normal Trace, Negative [facility] Comment on above: Order Comment: Speci men Type: URINE SPECIMENOrdering Facility: [facility] Address: [address] [place] [address] Performed By: #### 2 4356-8 ####[facility]ATORYCLIA [id number] [place] [address] [place] Hemoglobin Ql (U) Negative Normal Negative, Trace [facility] Comment on above: Order Comment: Speci men Type: URINE SPECIMENOrdering Facility: [facility] Address: [address] [place] [address] Performed By: #### 2 4356-8 ####[facility]ATORYCLIA [id number] [address] [place] Ketones Ql (U) Negative Normal Negative, Trace [facility] Comment on above: Order Comment: Speci men Type: URINE SPECIMENOrdering Facility: [facility] Address: [address] [place] [address] Performed By: #### 2 4356-8 ####[facility] LABORATORYCLIA [id number] [address] Leukocyte esterase Test strip Ql (U) Negative Normal Negative, 25 Garrick/uL [facility] Comment on above: Order Comment: Speci men Type: URINE SPECIMENOrdering Facility: [facility] Address: [address] [place] [address] Performed By: #### 2 4356-8 ####[facility] LABORATORYCLIA [id number] [address] Nitrite Ql (U) Negative Normal Negative [facility] Comment on above: Order Comment: Speci men Type: URINE SPECIMENOrdering Facility: [facility] Address: [address] [place] [address] Performed By: #### 2 4356-8 ####[facility] LABORATORYCLIA [id number] [address] [place] pH (U) 6.0 [pH] Normal 5.0-8.0 [facility] Comment on above: Order Comment: Speci men Type: URINE SPECIMENOrdering Facility: [facility] Address: [address] [place] [address] Performed By: #### 2 4356-8 ####[facility] LABORATORYCLIA [id number] [address] [place] [facility] Protein (U) [Mass/Vol] Trace Normal Trace , Negative [facility] Comment on above: Order Comment: Speci men Type: URINE SPECIMENOrdering Facility: [facility] Address: [address] [place] [address] Performed By: #### 2 4356-8 ####[facility] LABORATORYCLIA [id number] [place] [address] [place] RBC LM.HPF (Urine sed) [#/Area] 3-5 /HPF Abnormal 0-3 /HPF [facility] Comment on above: Order Comment: Speci men Type: URINE SPECIMENOrdering Facility: [facility] Address: [address] [place] [address] Performed By: #### 2 4356-8 ####[facility] LABORATORYCLIA [id number] [place] [id number] [place] Specific gravity (U) [Rel density] >1.040 High 1.005-1.030 [facility] Comment on above: Order Comment: Speci men Type: URINE SPECIMENOrdering Facility: [facility] Address: [address] [place] [address] Performed By: #### 2 4356-8 ####[facility] LABORATORYCLIA [id number] [address] [place] Urobilinogen Ql (U) Normal Normal Normal [facility] Comment on above: Order Comment: Speci men Type: URINE SPECIMENOrdering Facility: [facility] Address: [address] [place] [address] Performed By: #### 2 4356-8 ####[facility] LABORATORYCLIA [id number] [address] [place] WBC LM.HPF (Urine sed) [#/Area] 0-5 /HPF Normal 0-5 /HPF [facility] Comment on above: Order Comment: Speci men Type: URINE SPECIMENOrdering Facility: [facility] Address: [address] [place] [address] Performed By: #### 2 4356-8 ####[facility] LABORATORYCLIA [id number] [address] [place] XR ABDOMEN 1V SUPINEon 04-16 XR ABDOMEN 1V SUPINE * * *Final Report* * * DATE OF EXAM: Apr 16 2024 1:20PM ELAINE 5289 - XR ABDOMEN 1V SUPINE / PROCEDURE REASON: Evaluate tube, line or lead position * * * * Physician Interpretation * * * * EXAM TITLE: XR ABDOMEN 1V SUPINE DATE: 04/16/2024 1:50 PM INDICATION: Tube placement COMPARISON: Earlier today FINDINGS: Esophagogastric tube tip is in the proximal stomach. The bowel gas pattern is normal. No masses. IMPRESSION: See above. Public Health Doctor: [facility] Transcribe Date/Time: Apr 16 2024 1:50P Dictated by : REED SAM MD This examination was interpreted and the report reviewed and electronically signed by: REED SAM MD on Apr 16 2024 1:51PM EST [id number] Normal [facility] XR ABDOMEN 1V SUPINE * * [...] in the region of the gastric body. Public Health Doctor: [facility] Transcribe Date/Time: Apr 16 2024 2:02A Dictated by : ANITA TINAJERO MD This examination was interpreted and the report reviewed and electronically signed by: ANITA TINAJERO MD on Apr 16 2024 2:03AM EST [id number] Normal [facility] XR CHEST 1V FRONTALon 2023 XR [...] An enteric tube terminates below the included [id number]. There is a stent and surgical clips in the right neck. Right hemidiaphragm is elevated. Cardiac silhouette and pulmonary vessels are within normal limits. No consolidation or edema. No evidence of pleural effusion or pneumothorax. Osseous structures are grossly unremarkable for age. IMPRESSION: Endotracheal tube terminates approximately 2.9 cm above the william. Public Health Doctor: [facility] Transcribe Date/Time: Apr 16 2024 1:59A Dictated by : ANITA TINAJERO MD This examination was interpreted and the report reviewed and electronically signed by: ANITA TINAJERO MD on Apr 16 2024 2:02AM EST [id number] Normal [facility] ANES PRE-OPon 04-15-2024 ANES PRE-OP HNO ID: [id number] Author: FAHAD VILLEDA MD Service: Anesthesiology Author Type: Anesthesiologist Type: Anesthesia Preprocedure Evaluation Filed: 04/15/2024 22:55 Note Text: ANESTHESIOLOGY DAY OF SURGERY NOTE : 1950 Procedure Information Date/Time: 04/15/242144 Procedure: PERC ARTERIAL TRANSLUMINAL MECHANICAL THROMBECTOMY AND/OR INFUSION FOR THROMBOLYSIS, INTRACRANIAL, ANY METHOD INCL DIAG ANGIOGRAPHY, FLOURO GUIDANCE,CATH PLACEMENT/ INTRAPROC PHARM THROMBOLYTIC INJ Location: [place] [facility] [place] [facility] [place] Surgeons: Ramirez Cantor MD There [...] Reason: Patient mentally impaired Patient / Responsible Republican agrees to proceed: no Reason: Patient mentally [...] April 15, 2024 TIME: 10:02 PM CSN: [id number] Normal [facility] CBC W Auto Differential pane l (Bld)on 04-15-2024 Basophils (Bld) [#/Vol] 0.03 10*3/uL Normal <0.11 [facility] Comment on above: Order Comment: Speci men Type: BLOOD SPECIMENOrdering Facility: [facility] Address: [address] [place] [address] Performed By: #### 5 7021-8 ####[facility] LABORATORYCLIA [id number] [place] [address] [place] Basophils/100 WBC (Bld) 0.1 % Normal [facility] Comment on above: Order Comment: Lyndsey eller Type: BLOOD SPECIMENOrdering Facility: [facility] Address: [address] [place] [address] Performed By: #### 5 7021-8 ####[facility]ORATORYCLIA [id number] [address] Differential cell count method Nom (Bld) Auto Normal [facility] Comment on above: Order Comment: Speci men Type: BLOOD SPECIMENOrdering Facility: [facility] Address: [address] [place] [address] Performed By: #### 5 7021-8 ####[facility]ORATORYCLIA [id number] [address] [place] Eosinophils (Bld) [#/Vol] 10*3/uL Normal <0.46 [facility] Comment on above: Order Comment: Speci men Type: BLOOD SPECIMENOrdering Facility: [facility] Address: [address] [place] [address] Performed By: #### 5 7021-8 ####[facility]ORATORYCLIA [id number] [address] Eosinophils/100 WBC (Bld) 0.0 % Normal [facility] Comment on above: Order Comment: Speci men Type: BLOOD SPECIMENOrdering Facility: [facility] Address: [address] [place] [address] Performed By: #### 5 7021-8 ####[facility]ORATORYCLIA [id number] [address] Erythrocyte distribution width (RBC) [Ratio] 12.4 % Normal 11.5-15.0 [facility] Comment on above: Order Comment: Speci men Type: BLOOD SPECIMENOrdering Facility: [facility] Address: [address] [place] [address] Performed By: #### 5 7021-8 ####[facility]ORATORYCLIA [id number] [address] Hematocrit (Bld) [Volume fraction] 48.0 % Normal 39.0-51.0 [facility] Comment on above: Order Comment: Speci men Type: BLOOD SPECIMENOrdering Facility: [facility] Address: [facility] [place] [address] Performed By: #### 5 7021-8 ####[facility]ATORYCLIA [id number] [place] [address] [place] Hemoglobin (Bld) [Mass/Vol] 15.9 g/dL Normal 13.0-17.0 [facility] Comment on above: Order Comment: Speci men Type: BLOOD SPECIMENOrdering Facility: [facility] Address: [address] [place] [address] Performed By: #### 5 7021-8 ####[facility]ORATORYCLIA [id number] [place] [address] [place] Immature granulocytes (Bld) [#/Vol] 0.24 10*3/uL High <0.10 [facility] Comment on above: Order Comment: Speci men Type: BLOOD SPECIMENOrdering Facility: [facility] Address: [address] [place] [address] Performed By: #### 5 7021-8 ####[facility]ORATORYCLIA [id number] [address] [place] Immature granulocytes/100 WBC (Bld) 1.2 % Normal [facility] Comment on above: Order Comment: Speci men Type: BLOOD SPECIMENOrdering Facility: [facility] Address: [address] [place] [address] Performed By: #### 5 7021-8 ####[facility]ORATORYCLIA [id number] [place] [address] [place] Lymphocytes (Bld) [#/Vol] 2.78 10*3/uL Normal 1.00-4.00 [facility] Comment on above: Order Comment: Speci men Type: BLOOD SPECIMENOrdering Facility: [facility] Address: [address] [place] [address] Performed By: #### 5 7021-8 ####[facility]ATORYCLIA [id number] [address] [place] Lymphocytes/100 WBC (Bld) 13.7 % Normal [facility] Comment on above: Order Comment: Speci men Type: BLOOD SPECIMENOrdering Facility: [facility] Address: [address] [place] [address] Performed By: #### 5 7021-8 ####[facility]ORATORYCLIA [id number] [address] MCH (RBC) [Entitic mass] 34.6 pg High 26.0-34.0 [facility] Comment on above: Order Comment: Speci men Type: BLOOD SPECIMENOrdering Facility: [facility] Address: [address] [place] [address] Performed By: #### 5 7021-8 ####[facility]ORATORYCLIA [id number] [address] [facility] MCHC (RBC) [Mass/Vol] 33.1 g/dL Normal 30.5-36.0 [facility] Comment on above: Order Comment: Speci men Type: BLOOD SPECIMENOrdering Facility: [facility] Address: [address] [place] [address] Performed By: #### 5 7021-8 ####[facility]ORATORYCLIA [id number] [address] [place] [facility] MCV (RBC) [Entitic vol] 104.6 fL High 80.0-100.0 [facility] Comment on above: Order Comment: Speci men Type: BLOOD SPECIMENOrdering Facility: [facility] Address: [address] [place] [address] Performed By: #### 5 7021-8 ####[facility]ORATORYCLIA [id number] [address] Monocytes (Bld) [#/Vol] 1.04 10*3/uL High <0.87 [facility] Comment on above: Order Comment: Speci men Type: BLOOD SPECIMENOrdering Facility: [facility] Address: [address] [place] [address] Performed By: #### 5 7021-8 ####[facility]ATORYCLIA [id number] [address] Monocytes/100 WBC (Bld) 5.1 % Normal [facility] Comment on above: Order Comment: Speci men Type: BLOOD SPECIMENOrdering Facility: [facility] Address: [facility] [place] [address] Performed By: #### 5 7021-8 ####[facility] LABORATORYCLIA [id number] [address] [place] Neutrophils (Bld) [#/Vol] 16.16 10*3/uL High 1.45-7.50 [facility] Comment on above: Order Comment: Speci men Type: BLOOD SPECIMENOrdering Facility: [facility] Address: [address] [place] [address] Performed By: #### 5 7021-8 ####[facility]ATORYCLIA [id number] [address] [place] Neutrophils/100 WBC (Bld) 79.9 % Normal [facility] Comment on above: Order Comment: Speci men Type: BLOOD SPECIMENOrdering Facility: [facility] Address: [address] [place] [address] Performed By: #### 5 7021-8 ####[facility]ATORYCLIA [id number] [address] [place] Nucleated RBC (Bld) [#/Vol] 10*3/uL Normal <0.01 [facility] Comment on above: Order Comment: Speci men Type: BLOOD SPECIMENOrdering Facility: [facility] Address: [address] [place] [address] Performed By: #### 5 7021-8 ####[facility]ATORYCLIA [id number] [address] [place] Nucleated RBC/100 WBC (Bld) [Ratio] 0.0 /100 WBC Normal [facility] Comment on above: Order Comment: Speci men Type: BLOOD SPECIMENOrdering Facility: [facility] Address: [address] [place] [address] Performed By: #### 5 7021-8 ####[facility]ATORYCLIA [id number] [address] [place] Platelet mean volume (Bld) [Entitic vol] 10.4 fL Normal 9.0-12.7 [facility] Comment on above: Order Comment: Speci men Type: BLOOD SPECIMENOrdering Facility: [facility] Address: [address] [place] [address] Performed By: #### 5 7021-8 ####[facility]ORATORYCLIA [id number] [address] [place] Platelets (Bld) [#/Vol] 299 10*3/uL Normal 150-400 [facility] Comment on above: Order Comment: Speci men Type: BLOOD SPECIMENOrdering Facility: [facility] Address: [address] [place] [address] Performed By: #### 5 7021-8 ####[facility]ORATORYCLIA [id number] [address] [place] [facility] RBC (Bld) [#/Vol] 4.59 10*6/uL Normal 4.20-6.00 [facility] Comment on above: Order Comment: Speci men Type: BLOOD SPECIMENOrdering Facility: [facility] Address: [address] [place] [address] Performed By: #### 5 7021-8 ####[facility]ATORYCLIA [id number] [address] [place] WBC (Bld) [#/Vol] 20.25 10*3/uL High 3.70-11.00 [facility] Comment on above: Order Comment: Speci men Type: BLOOD SPECIMENOrdering Facility: [facility] Address: [address] [place] [address] Performed By: #### 5 7021-8 ####[facility]ORATORYCLIA [id number] [address] BRAIN WO IVCONon 04-15-[address] BRAIN WO IVCON * * *Final Report* * * DATE OF EXAM: Apr 15 2024 9:23PM [facility] 0504 - CT BRAIN WO IVCON / [...] PM via verbal communication. --END OF FINDING-- Public Health Doctor: [facility] Transcribe Date/Time: Apr 15 2024 9:27P Dictated by : LILLI GUSTAFSON MD This examination was interpreted and the report reviewed and electronically signed by: LILLI GUSTAFSON MD on Apr 15 2024 9:40PM EST [id number] Normal [facility] CT C-SPINE W RECON DATA -NBo n 04-15-2024 CT C-SPINE W RECON DATA -NB * * *Final Report* * * DATE OF EXAM: Apr 15 2024 9:37PM [facility] 0478 - CT C-SPINE W RECON DATA -NB / PROCEDURE REASON: Neck trauma, intoxicated or obtunded (Age >= 16y) * * * * Physician Interpretation * * * * EXAMINATION: CTA HEAD W IVCON, CTA NECK W IVCON, CT C-SPINE W RECON DATA -NB Clinical history provided by the ordering clinician via order question and clinical decision support entries: Aneurysm (accession [id number]), Dissection (accession [id number]). Focal neuro deficit, new, fixed, or worsening, < 4.5 hours, stroke suspected (accession [id number]), Carotid artery dissection (accession [id number]), Neck trauma, intoxicated or obtunded (Age >= 16y) (accession [id number]). Focal neuro deficit, new, fixed, or worsening, [...] Unremarkable appearance of the posterior cerebral arteries. Mine Car Repairer (topogram) images: Noncontributory IMPRESSION: 1. Complete occlusion [...] (more content not included)... Invalid Interpretation Code [facility] CTA HEAD W IVCONon 4 CTA HEAD W IVCON * * *Final Report* * * DATE OF EXAM: Apr 15 2024 9:37PM [facility] 0022 - CTA HEAD W IVCON / PROCEDURE REASON: Focal neuro deficit, new, fixed, or worsening, < 4.5 hours, stroke suspected * * * * Physician Interpretation * * * * EXAMINATION: CTA HEAD W IVCON, CTA NECK W IVCON, CT C-SPINE W RECON DATA -NB Clinical history provided by the ordering clinician via order question and clinical decision support entries: Aneurysm (accession [id number]), Dissection (accession [id number]). Focal neuro deficit, new, fixed, or worsening, < 4.5 hours, stroke suspected (accession [id number]), Carotid artery dissection (accession [id number]), Neck trauma, intoxicated or obtunded (Age >= 16y) (accession [id number]). Focal neuro deficit, new, fixed, or worsening, [...] Unremarkable appearance of the posterior cerebral arteries. Mine Car Repairer (topogram) images: Noncontributory IMPRESSION: 1. Complete occlusion [...] (more content not included)... Invalid Interpretation Code [facility] CTA NECK W IVCONon 4 CTA NECK W IVCON * * *Final Report* * * DATE OF EXAM: Apr 15 2024 9:37PM [facility] 0024 - CTA NECK W IVCON / PROCEDURE REASON: Carotid artery dissection * * * * Physician Interpretation * * * * EXAMINATION: CTA HEAD W IVCON, CTA NECK W IVCON, CT C-SPINE W RECON DATA -NB Clinical history provided by the ordering clinician via order question and clinical decision support entries: Aneurysm (accession [id number]), Dissection (accession [id number]). Focal neuro deficit, new, fixed, or worsening, < 4.5 hours, stroke suspected (accession [id number]), Carotid artery dissection (accession [id number]), Neck trauma, intoxicated or obtunded (Age >= 16y) (accession [id number]). Focal neuro deficit, new, fixed, or worsening, [...] Unremarkable appearance of the posterior cerebral arteries. Mine Car Repairer (topogram) images: Noncontributory IMPRESSION: 1. Complete occlusion [...] (more content not included)... Invalid Interpretation Code [facility] Comprehensive metabolic 2000 panelon 04-15-2024 Albumin [Mass/Vol] 4.6 g/dL Normal 3.9-4.9 [facility] Comment on above: Order Comment: Speci men Type: BLOOD SPECIMENOrdering Facility: [facility] Address: [address] [place] [address] Performed By: #### 2 4323-8, 74343-6 ####[facility]ORATORYCLIA [id number] [address] [place] [facility] ALP [Catalytic activity/Vol] 78 U/L Normal 38-113 [facility] Comment on above: Order Comment: Speci men Type: BLOOD SPECIMENOrdering Facility: [facility] Address: [address] [place] [address] Performed By: #### 2 4323-8, 34339-3 ####[facility]ORATORYCLIA [id number] [address] [facility] ALT With P-5'-P [Catalytic activity/Vol] 31 U/L Normal 10-54 [facility] Comment on above: Order Comment: Speci men Type: BLOOD SPECIMENOrdering Facility: [facility] Address: [address] [place] [address] Performed By: #### 2 4323-8, 18833-2 ####[facility]ATORYCLIA [id number] [address] [place] Anion gap [Moles/Vol] 22 mmol/L High 9-18 [facility] Comment on above: Order Comment: Speci men Type: BLOOD SPECIMENOrdering Facility: [facility] Address: [address] [place] [address] Performed By: #### 2 4323-8, 66665-5 ####[facility]ATORYCLIA [id number] [address] [place] AST With P-5'-P [Catalytic activity/Vol] Normal [facility] Comment on above: Order Comment: Speci men Type: BLOOD SPECIMENOrdering Facility: [facility] Address: [address] [place] [address] Result Comment: Unab le to assay due to interference from hemolysis. Suggest reorder as clinically indicated. Performed By: #### 2 4323-8, 64095-7 ####[facility]ATORYCLIA [id number] [place] [address] [place] Bilirubin [Mass/Vol] 0.3 mg/dL Normal 0.2-1.3 [facility] Comment on above: Order Comment: Speci men Type: BLOOD SPECIMENOrdering Facility: [facility] Address: [address] [place] [address] Performed By: #### 2 4323-8, 78930-4 ####[facility]ATORYCLIA [id number] [place] [address] [place] Calcium [Mass/Vol] 10.0 mg/dL Normal 8.5-10.2 [facility] Comment on above: Order Comment: Speci men Type: BLOOD SPECIMENOrdering Facility: [facility] Address: [address] [place] [address] Performed By: #### 2 4323-8, 84670-8 ####[facility]ORATORYCLIA [id number] [place] [address] [place] Chloride [Moles/Vol] 101 mmol/L Normal 97-105 [facility] Comment on above: Order Comment: Speci men Type: BLOOD SPECIMENOrdering Facility: [facility] Address: [address] [place] [address] Performed By: #### 2 4323-8, 60898-8 ####[facility]ORATORYCLIA [id number] [place] [address] [place] CO2 [Moles/Vol] 14 mmol/L Low 22-30 [facility] Comment on above: Order Comment: Speci men Type: BLOOD SPECIMENOrdering Facility: [facility] Address: [address] [place] [address] Performed By: #### 2 4323-8, 29025-4 ####[facility]ORYCLIA [id number] [place] [address] [place] Creatinine [Mass/Vol] 1.70 mg/dL High 0.73-1.22 [facility] Comment on above: Order Comment: Speci men Type: BLOOD SPECIMENOrdering Facility: [facility] Address: [address] [place] [address] Performed By: #### 2 4323-8, 25453-5 ####[facility] [id number] [address] Creatinine and Glomerular filtration rate.predicted panel (S/P/Bld) 42 mL/min/1.73m??? Low >=60 [facility] Comment on above: Order Comment: Lyndsey eller Type: BLOOD SPECIMENOrdering Facility: [facility] Address: [address] [place] [address] Result Comment: Bianca mated Glomerular Filtration Rate [...] actual GFR. Performed By: #### 2 4323-8, 89401-9 ####[facility]PITALIA [id number] [place] [address] [place] Glucose [Mass/Vol] 141 mg/dL High 74-99 [facility] Comment on above: Order Comment: Lyndsey eller Type: BLOOD SPECIMENOrdering Facility: [facility] Address: [address] [place] [address] Result Comment: The [place] [employer] (ADA) provides guidance for cutoff [...] Standards of Medical Care in Diabetes 2016, [place] [employer]. Diabetes Care. 2016.39(Suppl 1). Performed By: #### 2 4323-8, 14577-1 ####[facility]ITALIA [id number] [place] [address] [place] Potassium [Moles/Vol] 4.5 mmol/L Normal 3.7-5.1 [facility] Comment on above: Order Comment: Speci men Type: BLOOD SPECIMENOrdering Facility: [facility] Address: [address] [place] [address] Performed By: #### 2 4323-8, 38827-1 ####[facility]ORATORYCLIA [id number] [place] [id number] [place] Protein [Mass/Vol] 7.3 g/dL Normal 6.3-8.0 [facility] Comment on above: Order Comment: Speci men Type: BLOOD SPECIMENOrdering Facility: [facility] Address: [address] [place] [address] Performed By: #### 2 4323-8, 48121-8 ####[facility] LABORATORYCLIA [id number] [address] STATES OF [facility] Sodium [Moles/Vol] 137 mmol/L Normal 136-144 [facility] Comment on above: Order Comment: Speci men Type: BLOOD SPECIMENOrdering Facility: [facility] Address: [address] [place] [address] Performed By: #### 2 4323-8, 66392-8 ####[facility] LABORATORYCLIA [id number] [place] [id number] [place] Urea nitrogen [Mass/Vol] 44 mg/dL High 9-24 [facility] Comment on above: Order Comment: Speci men Type: BLOOD SPECIMENOrdering Facility: [facility] Address: [address] [place] [address] Performed By: #### 2 4323-8, 78212-6 ####[facility] LABORATORYCLIA [id number] [place] [id number] [facility] ED NOTEon 04-15-2024 ED NOTE HNO ID: [id number] Author: FÉLIX DE LA VEGA RN Service: ? Author Type: Registered Nurse Type: ED Notes Filed: 04/15/2024 22:46 Note Text: Departing to NIL, pt on portable monitor and NC. Pt's belongings given to daughter. [facility] ED NOTE HNO ID: [id number] Author: FÉLIX DE LA VEGA RN Service: ? Author Type: Registered Nurse Type: ED Notes Filed: 04/15/2024 22:07 Note Text: Report given to Diana RN from [facility]. [facility] ED NOTE HNO ID: [id number] Author: FÉLIX DE LA VEGA RN Service: ? Author Type: Registered Nurse Type: ED Notes Filed: 04/15/2024 22:05 Note Text: 1mg IV ativan given per verbal order [facility] ED NOTE HNO ID: [id number] Author: FÉLIX DE LA VEGA RN Service: ? Author Type: Registered Nurse Type: ED Notes Filed: 04/15/2024 21:57 Note Text: 18mg TNK given now [facility] ED NOTE HNO ID: [id number] Author: FÉLIX DE LA VEGA RN Service: ? Author Type: Registered Nurse Type: ED Notes Filed: 04/15/2024 21:55 Note Text: 1mg IV ativan given per verbal order from Dr. Ovalles due to pt agitation [facility] ED NOTE HNO ID: [id number] Author: FÉLIX DE LA VEGA RN Service: ? Author Type: Registered Nurse Type: ED Notes Filed: 04/15/2024 21:50 Note Text: Telestroke doctor stated they are preparing the NIL and waiting on the team. Awaiting INR results to decide on TNK administration per the telestroke Dr. Kenisha Beard [facility] ED NOTE HNO ID: [id number] Author: FÉLIX DE LA VEGA RN Service: ? Author Type: Registered Nurse Type: ED Notes Filed: 04/15/2024 21:35 Note Text: 1L NS bolus started per verbal order [facility] ED NOTE HNO ID: [id number] Author: FANTA GALE RN Service: ? Author Type: Registered Nurse Type: ED Notes Filed: 04/15/2024 21:14 Note Text: Bed: 25-ED Expected date: Expected time: Means of arrival: Comments: RR team [facility] ED NOTE HNO ID: [id number] Author: VANGIE PRADHAN RN Service: Emergency Medicine Author Type: Registered Nurse Type: ED Notes Filed: 04/15/2024 21:13 Note Text: 6.2 lactate [facility] ED NOTE HNO ID: [id number] Author: VANGIE PRADHAN RN Service: Emergency Medicine Author Type: Registered Nurse Type: ED Notes Filed: 04/15/2024 21:09 Note Text: 1 of Ativan given at this time [facility] ED NOTE HNO ID: [id number] Author: VANGIE PRADHAN RN Service: Emergency Medicine Author Type: Registered Nurse Type: ED Notes Filed: 04/15/2024 21:09 Note Text: 5 of Haldol given at this time [facility] ED NOTE HNO ID: [id number] Author: VANGIE PRADHAN RN Service: Emergency Medicine Author Type: Registered Nurse Type: ED Notes Filed: 04/15/2024 21:07 Note Text: BG 129 [facility] ED NOTE HNO ID: [id number] Author: VANGIE PRADHAN RN Service: Emergency Medicine Author Type: Registered Nurse Type: ED Notes Filed: 04/15/2024 21:04 Note Text: Pt placed on electronic device monitor at this time [facility] ED NOTE HNO ID: [id number] Author: VANGIE PRADHAN RN Service: Emergency Medicine Author Type: Registered Nurse Type: ED Notes Filed: 04/15/2024 21:05 Note Text: Attending Deborah and ED resident Renato at bedside [facility] ED PROV NOTEon 04-15-2024 ED PROV NOTE HNO ID: [id number] Author: GIOVANNI OVALLES MD Service: Emergency Medicine [...] of the following condition(s): 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 The patient received TNK and Consultation by Neurology during the time that critical care was provided.I discussed the plan of care with the RESIDENT and agree with the findings documented. Critical care time excludes separately billed procedures. Giovanni Ovalles MD Signature: Giovanni Ovalles MD Date: 04/19/2024 Time: 7:51 AM ED [...] components: Result (more content not included)... Normal [facility] Ethanol SerPl-mCncon 024 Ethanol [Mass/Vol] mg/dL Normal <11 [facility] Comment on above: Order Comment: Lyndsey eller Type: BLOOD SPECIMENOrdering Facility: [facility] Address: [address] [place] [address] Performed By: #### 5 643-2 ####[facility] LABORATORYCLIA [id number] [place] [address] [place] HIGH SENSITIVITY TROPONIN T (INITIAL)on 04-15-2024 Troponin T.cardiac High sensitivity method [Mass/Vol] 35 ng/L High <12 [facility] Comment on above: Order Comment: Lyndsey eller Type: BLOOD SPECIMENOrdering Facility: [facility] Address: [address] [place] [address] Result Comment: When assessing risk for acute [...] 30 day MACE. Performed By: #### L [id number] ####[facility] LABORATORYCLIA [id number] [place] [address] [place] PT panel Coag (PPP)on 2023 INR Coag (PPP) [Relative time] 0.9 {INR} Normal 0.9-1.3 [facility] Comment on above: Order Comment: Lyndsey eller Type: BLOOD SPECIMENOrdering Facility: [facility] Address: [address] [place] [address] Result Comment: Violette min K Antagonist (VKA) Therapeutic Range: INR 2 to 3 (Target INR of 2.5) Note: For patients treated with VKA drugs, such as warfarin, the [place] [employer] 2012 Guideline recommends [...] HOLLAND, et al. Chest 2012, 141:7S-47S Janice HAWKINS, et al. [facility] 2017, 70: 252-289 Performed By: #### 3 4528-0 ####[facility] LABORATORYCLIA [id number] [place] [address] [place] PT Coag (PPP) [Time] 10.0 s Normal 9.7-13.0 [facility] Comment on above: Order Comment: Lyndsey eller Type: BLOOD SPECIMENOrdering Facility: [facility] Address: [address] [place] [address] Performed By: #### 3 4528-0 ####[facility] LABORATORYCLIA [id number] [address] [place] Procalcitonin SerPl-mCncon 0 04-15-2024 Procalcitonin [Mass/Vol] 0.14 ng/mL High <0.09 [facility] Comment on above: Order Comment: Lyndsey eller Type: BLOOD SPECIMENOrdering Facility: [facility] Address: [address] [place] [address] Result Comment: For a guided interpretation of test results, please visit the Change in Procalcitonin Calculator, [email or web address]. Performed By: #### 2 4323-8, 55664-5 ####[facility] LABORATORYCLIA [id number] [place] [address] [place] No Panel InformationOrdered By: Jesse Steele on 04-14-2024 [facility] [employer] Work Phone: XR Hip - left 3 Viewson 03-19 Patient Name: JONATHON DEWITT : 1950 Exam [...] is evident at L3-4, L4-5, and L5-S1. [facility] Jesse Steele MD - 04/14/2024 [...] Electronically Signed Date/Time: 04/14/2024 12:49 AM EDT [facility] XR Lumbar spine 2 or 3 Views [...] is evident at L3-4, L4-5, and L5-S1. [facility] Jesse Steele MD - 04/14/2024 [...] Electronically Signed Date/Time: 04/14/2024 12:49 AM EDT [facility] ED Provider Noteon ED Provider Note Emergency Department Encounter [facility] EMERGENCY DEPT Patient: Jonathon Perales : 1950 [...] but pain worsened today. 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 HPI: Jonathon Perales is [...] flexion [intact bilaterally] Wrist extension [intact bilaterally] Counter Former strength [intact bilaterally] Finger abduction [intact bilaterally] MEDICAL DECISION MAKING: Medications Lidocaine 4 % patch 1 patch (1 patch TransDERmal Medication Applied 04/13/242351) predniSONE (Deltasone) tablet 50 mg (50 mg Oral Given 04/13/242352) ketorolac (Toradol) injection 15 mg (15 mg IntraMUSCular Given 04/13/242351) Jonathon Criss Perales is a 73 y.o. male who [...] recommend orthospi (more content not included)... Normal [facility] XR Hip - left 3 Viewson 03-19 Radiology Study observation (narrative) [facility] alth XR Lumbar spine 2 or 3 Views on 04-13-2024 Radiology Study observation (narrative) [facility] alth CT Brain wo contraston 10-06 CT [...] ANA EASTMAN MD, MD Date: 10/06/2023 22:25 [facility] CT Cervical Spine wo contras ton 10-06-2023 [...] ANA EASTMAN MD, MD Date: 10/06/2023 22:25 [facility] CT Maxillofacial wo contrast on 10-06-2023 CT [...] ANA EASTMAN MD, MD Date: 10/06/2023 22:25 [facility] CBC panel Auto (Bld)on 12-26 Erythrocyte distribution width (RBC) [Ratio] 11.8 % 11.5 - 15.0 % [facility] Hematocrit (Bld) [Volume fraction] 45.9 % 39.0 - 51.0 % [facility] Hemoglobin (Bld) [Mass/Vol] 14.9 g/dL 13.0 - 17.0 g/dL [facility] MCH (RBC) [Entitic mass] 33.0 pg 26.0 - 34.0 pg [facility] MCHC (RBC) [Mass/Vol] 32.5 g/dL 30.5 - 36.0 g/dL [facility] MCV (RBC) [Entitic vol] 101.8 fL High 80.0 - 100.0 fL [facility] Nucleated RBC (Bld) [#/Vol] <0.01 k/uL [facility] Platelet mean volume (Bld) [Entitic vol] 10.3 fL 9.0 - 12.7 fL [facility] Platelets (Bld) [#/Vol] 244 10*3/uL 150 - 400 k/uL [facility] RBC (Bld) [#/Vol] 4.51 10*6/uL 4.20 - 6.0 0 m/uL [facility] WBC (Bld) [#/Vol] 7.84 10*3/uL 3.70 - 11.00 k/uL [facility] Comprehensive metabolic 2000 panelon 12-26-2022 Albumin [Mass/Vol] 4.2 g/dL 3.9 - 4.9 g/dL [facility] ALP [Catalytic activity/Vol] 78 U/L 38 - 113 U/L [facility] ALT With P-5'-P [Catalytic activity/Vol] 11 U/L 10 - 54 U/L [facility] Anion gap [Moles/Vol] 11 mmol/L 9 - 18 mmol/L [facility] AST With P-5'-P [Catalytic activity/Vol] 18 U/L 14 - 40 U/L [facility] Bilirubin [Mass/Vol] 0.2 mg/dL 0.2 - 1 .3 mg/dL [facility] Calcium [Mass/Vol] 9.4 mg/dL 8.5 - 10. 2 mg/dL [facility] Chloride [Moles/Vol] 105 mmol/L 97 - 10 5 mmol/L [facility] CO2 [Moles/Vol] 25 mmol/L 22 - 30 mmol/L [facility] Creatinine [Mass/Vol] 1.34 mg/dL High 0.73 - 1.22 mg/dL [facility] Estimated Glomerular Filtration Rate 56 mL/min/1.73m Low >=60 mL/min/1.73 m [facility] Glucose [Mass/Vol] 93 mg/dL 74 - 99 mg/dL [facility] Potassium [Moles/Vol] 4.8 mmol/L 3.7 - 5.1 mmol/L [facility] Protein [Mass/Vol] 6.8 g/dL 6.3 - 8.0 g/dL [facility] Sodium [Moles/Vol] 141 mmol/L 136 - 144 mmol/L [facility] Urea nitrogen [Mass/Vol] 22 mg/dL 9 - 24 mg/dL [facility] Lipid 1996 panelon 3 Cholesterol [Mass/Vol] 185 mg/dL <200 mg/dL Cl [facility] Cholesterol in HDL [Mass/Vol] 51 mg/dL >39 mg/dL [facility] Cholesterol in LDL [Mass/Vol] 84 mg/dL <100 mg/dL [facility] Cholesterol in LDL/Cholesterol in HDL [Mass ratio] 1.65 {ratio} <2.54 [facility] Cholesterol in VLDL [Mass/Vol] 50 mg/dL High <30 mg/dL [facility] Cholesterol non HDL [Mass/Vol] 134 mg/dL High <130 mg/dL [facility] Cholesterol.total/Geno sterol in HDL [Mass ratio] 3.63 {ratio} <5.10 [facility] Fasting Time 12 hrs [facility] Triglyceride [Mass/Vol] 250 mg/dL High <150 mg/dL [facility] URIC ACID BLOODon 12-26-2022 Urate [Mass/Vol] 7.2 mg/dL 4.0 - 8.1 mg/dL [facility] MRI Brain w/o Contraston MRI Brain w/o Contrast Patient Name: [id number] Resonance Imaging ACCESSION EXAM DATE/TIME PROCEDURE ORDERING PROVIDER [id number] 05/15/2022 10:06 EDT MRI Brain w/o Contrast 139600ALEM CHANDRA CPT code 61759 Reason For Exam (MRI Brain w/o Contrast) [...] No acute intracranial abnormalities. 2. 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 and [...] Transcribed Date and Time: 05/16/2022 1:54 Normal [facility] MRI Spine Cervical w/o Contr carlos 05-15-2022 MRI Spine Cervical w/o Contrast Patient Name: JONATHON PERALES Magnetic Resonance Imaging ACCESSION EXAM DATE/TIME PROCEDURE ORDERING PROVIDER [id number] 05/15/2022 09:44 EDT MRI Spine Cervical w/o [id number] ALEM V[place]LEGAS Contrast CPT code 30599 Reason For Exam (MRI Spine Cervical w/o [...] THOMAS Transcribed Date and Time: 05/16/2022 2:06 [facility] CR Foreign Body Loc Eye Haylie henry 05-03-2022 CR Foreign Body Loc Eye Bilateral Patient Name: JONATHON PERALES Diagnostic Radiology ACCESSION EXAM DATE/TIME PROCEDURE ORDERING PROVIDER [id number] 05/03/2022 14:32 EDT CR Foreign Body Loc Eye [id number] A[place]M [place] Bilateral CPT code 22336 Reason For Exam (CR Foreign Body Loc [...] R Transcribed Date and Time: 05/04/2022 4:44 [facility] CT Cervical Spine WO aPtrick dominguez 02-25-2022 Patient Name: JONATHON DEWITT Computed Tomography ACCESSION EXAM DATE/TIME PROCEDURE ORDERING PROVIDER [id number] 02/25/2022 13:[address] Spine Cervical w/o MD AMARILIS, OG Contrast CPT code 21436 Reason For Exam (CT Spine Cervical w/o [...] THOMAS Transcribed Date and Time: 02/25/2022 1:44 [facility] Rose Holcomb M D - 02/25/2022 Patient Name: JONATHON PERALES Computed Tomography ACCESSION EXAM DATE/TIME PROCEDURE ORDERING PROVIDER [id number] 02/25/2022 13:[address] Spine Cervical w/o MD AMARILIS, OG Contrast CPT code 88387 Reason For Exam (CT Spine Cervical w/o [...] THOMAS Transcribed Date and Time: 02/25/2022 1:44 [facility] Work Phone: [facility] Work Phone: CT Head WO Contraston 2021 Patient Name: JONATHON DEWITT Computed Tomography ACCESSION EXAM DATE/TIME PROCEDURE ORDERING PROVIDER [id number] 02/25/2022 13:[address] Head or Brain w/o MD AMARILIS, OG Contrast CPT code 79711 Reason For Exam (CT Head or Brain [...] THOMAS Transcribed Date and Time: 02/25/2022 1:38 [facility] Rose Holcomb M D - 02/25/2022 Patient Name: [id number] Computed Tomography ACCESSION EXAM DATE/TIME PROCEDURE ORDERING PROVIDER [id number] 02/25/2022 13:[address] Head or Brain w/o MD AMARILIS, OG Contrast CPT code 81202 Reason For Exam (CT Head or Brain [...] THOMAS Transcribed Date and Time: 02/25/2022 1:38 [facility] Work Phone: CT Head WO ContrastOrdered B y: Rose Holcomb on 02-25-2022 [facility] Work Phone: CT Head or Brain w/o Contras ton 02-25-2022 CT Head or Brain w/o Contrast Patient Name: JONATHON PERALES Computed Tomography ACCESSION EXAM DATE/TIME PROCEDURE ORDERING PROVIDER [id number] 02/25/2022 13:[address] Head or Brain w/o MD AMARILIS, OG Contrast CPT code 81553 Reason For Exam (CT Head or Brain [...] Transcribed Date and Time: 02/25/2022 1:38 Normal [facility] CT Spine Cervical w/o Contra ston 02-25-2022 CT Spine Cervical w/o Contrast Patient Name: JONATHON PERALES Computed Tomography ACCESSION EXAM DATE/TIME PROCEDURE ORDERING PROVIDER [id number] 02/25/2022 13:[address] Spine Cervical w/o MD AMARILIS, OG Contrast CPT code 47828 Reason For Exam (CT Spine Cervical w/o [...] Transcribed Date and Time: 02/25/2022 1:44 Normal [facility] EKG 12 Leadon 02-25-2022 [facility] Test Date: 2022-02-25 Pat Name: JONATHON PERALES Department: 41 Room: 14 Gender: 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1950 Requested By: OG TOBAR Order Number: [id number] Reading MD: Og Tobar Measurements Intervals [place] Rate: 63 P: 66 [place]: 166 QRS: 69 QRSD: 87 T: 81 QT: 391 QTc: 401 Interpretive Statements Sinus rhythm Probable left atrial enlargement Poor R wave progression Electronically Signed On 02-25-2022 13:43:56 EDT by Og Tobar [facility] Work Phone: [facility] Work Phone: No Panel Informationon 02-25 Radiology Study observation (narrative) [facility] Work Phone: CT Head WO Contraston 2020 Patient Name: JONATHON PERALES Computed Tomography ACCESSION EXAM DATE/TIME PROCEDURE ORDERING PROVIDER [id number] 11/08/2021 13:[address] Head or Brain w/o DAISY STINSON Contrast CPT code 63015 Reason For Exam (CT Head or Brain [...] JOHN Transcribed Date and Time: 11/08/2021 1:49 [facility] Cas Ramos MD - 11/08/2021 Patient Name: JONATHON PERALES [facility]#: [id number] Computed Tomography ACCESSION EXAM DATE/TIME PROCEDURE ORDERING PROVIDER [id number] 11/08/2021 13:[address] Head or Brain w/o DAISY STINSON Contrast CPT code 04796 Reason For Exam (CT Head or Brain [...] JOHN Transcribed Date and Time: 11/08/2021 1:49 [facility] Work Phone: Radiology Study observation (narrative) [facility] Work Phone: CT Head WO ContrastOrdered B y: Cas Jang on 11-08-2021 [facility] Work Phone: CT Head or Brain w/o Contras ton 11-08-2021 CT Head or Brain w/o Contrast Patient Name: JONATHON PERALES Computed Tomography ACCESSION EXAM DATE/TIME PROCEDURE ORDERING PROVIDER [id number] 11/08/2021 13:[address] Head or Brain w/o DAISY STINSON Contrast CPT code 93977 Reason For Exam (CT Head or Brain [...] Transcribed Date and Time: 11/08/2021 1:49 Normal [facility] CR Elbow 3+ Views Lefton CR Elbow 3+ Views Left Patient Name: JONATHON LÓPEZ Diagnostic Radiology ACCESSION EXAM DATE/TIME PROCEDURE ORDERING PROVIDER [id number] 10/31/2021 16:57 EST CR Elbow 3+ Views Left MD MCDONNELL VIJAY CPT code 03265 Reason For Exam (CR Elbow 3+ Views [...] Transcribed Date and Time: 10/31/2021 5:05 Normal [facility] CR Shoulder 2+ Views Righton 10-31-2021 CR Shoulder 2+ Views Right Patient Name: JONATHON PERALES Diagnostic Radiology ACCESSION EXAM DATE/TIME PROCEDURE ORDERING PROVIDER [id number] 10/31/2021 16:56 EST CR Shoulder 2+ Views MD KECIA, JONN Right CPT code 72679 Reason For Exam (CR Shoulder 2+ Views [...] Transcribed Date and Time: 10/31/2021 5:06 Normal [facility] CT Cervical Spine WO Contras ton 10-31-2021 Patient Name: JONATHON DEWITT Computed Tomography ACCESSION EXAM DATE/TIME PROCEDURE ORDERING PROVIDER [id number] 10/31/2021 16:[address] Spine Cervical w/o MD KCEIA, JONN Contrast CPT code 01011 Reason For Exam (CT Spine Cervical w/o [...] AHMAD Transcribed Date and Time: 10/31/2021 4:53 [facility], Unknown Provider - 10/31/2021 Patient Name: JONATHON PERALES Computed Tomography ACCESSION EXAM DATE/TIME PROCEDURE ORDERING PROVIDER [id number] 10/31/2021 16:[address] Spine Cervical w/o MD KECIA, JONN Contrast CPT code 04688 Reason For Exam (CT Spine Cervical w/o [...] WO Contraston 2020 Patient Name: [id number] Computed Tomography ACCESSION EXAM DATE/TIME PROCEDURE ORDERING PROVIDER [id number] 10/31/2021 16:[address] Head or Brain w/o MD KECIA, JONN Contrast CPT code 24811 Reason For Exam (CT Head or Brain [...] Tomography ACCESSION EXAM DATE/TIME PROCEDURE ORDERING PROVIDER [id number] 10/31/2021 16:[address] Head or Brain w/o MD KECIA, JONN Contrast CPT code 81508 Reason For Exam (CT Head or Brain [...] Tomography ACCESSION EXAM DATE/TIME PROCEDURE ORDERING PROVIDER [id number] 10/31/2021 16:[address] Head or Brain w/o MD KECIA, JONN Contrast CPT code 87838 Reason For Exam (CT Head or Brain [...] Transcribed Date and Time: 10/31/2021 4:53 Normal [facility] CT Spine Cervical w/o Contra andrew 10-31-2021 CT Spine Cervical w/o Contrast Patient Name: JONATHON PERALES Computed Tomography ACCESSION EXAM DATE/TIME PROCEDURE ORDERING PROVIDER [id number] 10/31/2021 16:[address] Spine Cervical w/o MD KECIA, JONN Contrast CPT code 22457 Reason For Exam (CT Spine Cervical w/o [...] Transcribed Date and Time: 10/31/2021 4:53 Normal [facility] No Panel Informationon 10-31 Radiology Study observation (narrative) [facility] Work Phone: XR ELBOW LEFT (MIN 3 VIEWS)o n 12-14-2021 Patient Name: JONATHON PERALES Diagnostic Radiology ACCESSION EXAM DATE/TIME PROCEDURE ORDERING PROVIDER [id number] 10/31/2021 16:57 EST CR Elbow 3+ Views Left MD MCDONNELL VIJAY CPT code 38965 Reason For Exam (CR Elbow 3+ Views [...] AHMAD Transcribed Date and Time: 10/31/2021 5:05 [facility] RAD Result, Unknown Provider - 10/31/2021 Patient Name: JONATHON PERALES Diagnostic Radiology ACCESSION EXAM DATE/TIME PROCEDURE ORDERING PROVIDER [id number] 10/31/2021 16:57 EST CR Elbow 3+ Views Left MD MCDONNELL VIJAY CPT code 04627 Reason For Exam (CR Elbow 3+ Views [...] AHMAD Transcribed Date and Time: 10/31/2021 5:05 [facility]: [facility] Work Phone: XR Shoulder Right 2 VWon Patient Name: [facility] DEWITT [id number] Diagnostic Radiology ACCESSION EXAM DATE/TIME PROCEDURE ORDERING PROVIDER [id number] 10/31/2021 16:56 EST CR Shoulder 2+ Views MD KECIAJONN CPT code 09868 Reason For Exam (CR Shoulder 2+ Views [...] NELSON Transcribed Date and Time: 10/31/2021 5:06 [facility] Charly Dempsey M D - 10/31/2021 Patient Name: JONATHON PERALES Diagnostic Radiology ACCESSION EXAM DATE/TIME PROCEDURE ORDERING PROVIDER [id number] 10/31/2021 16:56 EST CR Shoulder 2+ Views MD KECIA JONN CPT code 46895 Reason For Exam (CR Shoulder 2+ Views [...] NELSON Transcribed Date and Time: 10/31/2021 5:06 [facility] Work Phone: XR Shoulder Right 2 VWOrdere d By: Charly Barnes on 10-31-2021 [employer] Work Phone: BD DXA - AXIAL SKELETONon BD DXA - AXIAL SKELETON Final Report DATE OF EXAM: Jan 04 2021 9:59AM AKX 0804 - BD DXA - AXIAL SKELETON / PROCEDURE REASON: Other specified disorders of bone density and structure, multiple sites Physician Interpretation EXAM TITLE: BONE MINERAL DENSITOMETRY COMPARISON:None CLINICAL INDICATION/HISTORY: Male patient with family history of osteoporosis, adult fracture, and 1.5 inch loss of height. TECHNIQUE: DXA Project [employer]-1[employer] v.13.4 examination was performed on the lumbar [...] at high risk for accelerated bone loss). Public Health Doctor: MILTON Transcribe Date/Time: Jan 04 2021 10:08A Dictated by : REED SAM MD This examination was interpreted and the report reviewed and electronically signed by: REED SAM MD on Jan 04 2021 10:09AM EST Normal [facility] US ANKLE BRACHIAL INDICESon 01-04-2021 US ANKLE BRACHIAL INDICES Final Report DATE OF EXAM: Jan 04 2021 12:00AM A2U 1086 - US ANKLE BRACHIAL INDICES / PROCEDURE REASON: claudication Physician Interpretation Non-Invasive Vascular Laboratory [facility] Lower Extremity Arterial Physiology Study Bilateral/Complete [...] Interpreting physician: Jonathon Sandhu MD Final RP Public Health Doctor: GURJIT Transcribe Date/Time: Jan 04 2021 8:53A Dictated by : JONATHON SANDHU MD This examination was interpreted and the report reviewed and electronically signed by: JONATHON SANDHU MD on Jan 04 2021 12:33PM EST Normal [employer] [facility] XR LUMBAR 3V AP/LAT/L5-S1on 08-04-2020 XR [...] IMPRESSION: No acute or subacute traumatic abnormality Public Health Doctor: MILTON Transcribe Date/Time: Aug 04 2020 1:16P Dictated by : SAEED ALONZO MD This examination was interpreted and the report reviewed and electronically signed by: SAEED ALONZO MD on Aug 04 2020 1:19PM EST Normal [employer] [facility] XR THORACIC 3V AP/LAT/SWIMME RSon [...] wedge-shaped deformity of the T7 vertebral body. Public Health Doctor: PSCB Transcribe Date/Time: Aug 04 2020 1:26P Dictated by : SAEED ALONZO MD This examination was interpreted and the report reviewed and electronically signed by: SAEED ALONZO MD on Aug 04 2020 1:27PM EST Normal [facility] Coronavirus 2019on 0 SARS-CoV-2 (COVID-19) RNA PRIYANKA+probe Ql (Unsp spec) Negative Normal [facility] Comment on above: Result Comment: Nega tive for COVID19 (SARS CoV2) by PCR. This test was developed and its performance characteristics determined by [facility]'s Jonathon Bauman Pathology and Laboratory Medicine Damar. This test has been authorized by FDA under an Emergency Use Authorization (EUA). This test has been validated in accordance with the FDA's Guidance Document Policy for Diagnostics Testing in Laboratories Certified to Perform High Complexity Testing under CLIA prior to Emergency use Authorization for Coronavirus Disease 2019 during the Public Health Emergency" issued on January 16, 2020. Performing Laboratory: [place] [address] [place] [address] Performed By: #### G P8 #### [address] [address] Basic Metabolic Panelon Anion gap [Moles/Vol] 9 mmol/L Normal 9-18 [facility] [place] Comment on above: Performed By: #### B MP #### [address] [address] Calcium [Mass/Vol] 9.0 mg/dL Normal 8.5-10.2 [facility] Comment on above: Performed By: #### B MP #### [facility] [address] [place], [place] [address] Chloride [Moles/Vol] 105 mmol/L Normal 97-105 [facility] Comment on above: Performed By: #### B MP #### [facility] [address] [place], [place] [address] CO2 [Moles/Vol] 26 mmol/L Normal 22-30 [facility] Comment on above: Performed By: #### B MP #### [facility] [address] [place], [place] [address] Creatinine [Mass/Vol] 0.98 mg/dL Normal 0.73-1.22 [facility] [place] Comment on above: Performed By: #### B MP #### [facility] [address] [place], [place] [address] Glucose [Mass/Vol] 87 mg/dL Normal 74-99 [facility] Comment on above: Result Comment: The [place] Diabetes Association (ADA) provides guidance for cutoff [...] Standards of Medical Care in Diabetes 2016; [place] Diabetes Association. Diabetes Care. 2016;39(Suppl 1). Performed By: #### B MP #### [facility] [address] [place], [place] [address] Potassium [Moles/Vol] 4.1 mmol/L Normal 3.7-5.1 [facility] [place] Comment on above: Performed By: #### B MP #### [facility] [address] [place], [place] [address] Sodium [Moles/Vol] 140 mmol/L Normal 136-144 [facility] Comment on above: Performed By: #### B MP #### [facility] [address] [place] [address] Urea nitrogen [Mass/Vol] 19 mg/dL Normal 9-24 [facility] Comment on above: Performed By: #### B MP #### [facility] [address] [place] [address] Hemogramon 07-27-2020 Erythrocyte distribution width (RBC) [Ratio] 12.0 % Normal 11.6-14.4 [facility] Comment on above: Performed By: #### C BC1 #### [facility] [address] [place] [address] Hematocrit (Bld) [Volume fraction] 41.8 % Normal 40.1-51.0 [facility] Comment on above: Performed By: #### C BC1 #### [facility] [address] [place] [address] Hemoglobin (Bld) [Mass/Vol] 14.2 g/dL Normal 13.7-17.5 [facility] Comment on above: Performed By: #### C BC1 #### [facility] [address] [place] [address] MCH (RBC) [Entitic mass] 33.7 pg High 25.7-32.2 [facility] Comment on above: Performed By: #### C BC1 #### [facility] [address] [place] [address] MCHC 34.0 % Normal 32.3-36.5 [facility] Comment on above: Performed By: #### C BC1 #### [facility] [address] [place] [address] MCV (RBC) [Entitic vol] 99.3 fL High 83.2-95.6 [facility] Comment on above: Performed By: #### C BC1 #### [facility] [address] [place] [address] Platelet mean volume (Bld) [Entitic vol] 10.4 fL Normal 8.7-12.0 [facility] Comment on above: Performed By: #### C BC1 #### [facility] [address] [place] [address] Platelets (Bld) [#/Vol] 249 10*3/uL Normal 141-365 [facility] Comment on above: Performed By: #### C BC1 #### [facility] [address] [place] [address] RBC 4.21 mil/cmm Low 4.63-6.08 [facility] Comment on above: Performed By: #### C BC1 #### [facility] [address] [place] [address] RDW SD 44.2 fl Normal 36.1-45.8 [facility] Comment on above: Performed By: #### C BC1 #### [place] [address] WBC (Bld) [#/Vol] 7.75 10*3/uL Normal 4.23-9.07 [facility] Comment on above: Performed By: #### C BC1 #### [facility] [address] [place] [address] MDRD GFRon 07-27-2020 GFR/1.73 sq M.predicted among non-blacks MDRD (S/P/Bld) [Vol rate/Area] mL/min/{1.73_m2} Normal >60mL/min/1 .73m2 [facility] Comment on above: Result Comment: If t he patient is , multiply the result by 1.210. Performed By: #### G FR #### [place] [address] Basic Panelon 07-26-2020 Anion gap [Moles/Vol] 15 mmol/L Normal 8-16 [facility] Comment on above: Performed By: #### G P8 #### [place] [address] Calcium [Mass/Vol] 10.6 mg/dL High 8.5-10.1 [facility] Comment on above: Performed By: #### G P8 #### [place] [id number] Chloride [Moles/Vol] 103 mmol/L Normal 98-107 [facility] Comment on above: Performed By: #### G P8 #### [facility] [address] [place], [place] [address] CO2 [Moles/Vol] 27 mmol/L Normal 21-32 [facility] Comment on above: Performed By: #### G P8 #### [facility] [address] [place], [place] [address] Creatinine [Mass/Vol] 0.93 mg/dL Normal 0.67-1.17 [facility] Comment on above: Result Comment: Use of this assay is not recommended for patients undergoing treatment with phenindione, due to the potential for falsely depressed results. Performed By: #### G P8 #### [facility] [address] [place], [place] [address] Glucose [Mass/Vol] 114 mg/dL High 70-99 [facility] Comment on above: Performed By: #### G P8 #### [facility] [address] [place], [place] [address] Potassium [Moles/Vol] 4.4 mmol/L Normal 3.5-5.1 [facility] [place] Comment on above: Performed By: #### G P8 #### [facility] [address] [place], [place] [address] Sodium [Moles/Vol] 141 mmol/L Normal 136-145 [facility] Comment on above: Performed By: #### G P8 #### [address] [address] Urea nitrogen [Mass/Vol] 16 mg/dL Normal 7-18 [facility] Comment on above: Performed By: #### G P8 #### [address] [address] [address] ABD/PEL WO IVCONon 2019 CT ABD/PEL WO IVCON Final Report DATE OF EXAM: Jul 26 2020 2:54PM [facility] 0531 - CT ABD/PEL WO IVCON / [...] as noted 07/2018. No pericardial effusion motion. 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 IMPRESSION: 1. No hydronephrosis or nephrolithiasis. 2. No evidence of bowel obstruction or acute intra-abdominal findings. 3. Dense atherosclerotic calcifications of the distal abdominal aorta with suggestion of significant luminal narrowing, as partially imaged on the CT of 07/2019 4. Partially imaged aortic valve replacement and mild fusiform dilation of the ascending aorta. Other chronic findings, as above. Public Health Doctor: MILTON Transcribe Date/Time: Jul 26 2020 2:57P Dictated by : CR FERGUSON MD This examination was interpreted and the report reviewed and electronically signed by: CR FERGUSON MD on Jul 26 2020 3:05PM EST Normal [facility] Cult Urineon 07-26-2020 Cult Urine Test performed at [facility] No growth <1,000 CFU/ml. Normal [facility] Comment on above: Performed By: #### G P8 #### [facility] [address] [place] [address] Hemogram/Diffon 07-26-2020 Abs. Baso 0.07 thou/cmm Normal 0.00-0.08 [facility] Comment on above: Performed By: #### G CBCD #### [place] [address] Abs. Randall 0.51 thou/cmm Normal 0.19-0.80 [facility] Comment on above: Performed By: #### G CBCD #### [place] [address] Abs. Neut (ANC) 6.48 thou/cmm Normal 1.35-7.21 [facility] Comment on above: Performed By: #### G CBCD #### [place] [address] Basophils/100 WBC (Bld) 0.8 % Normal [facility] Comment on above: Performed By: #### G CBCD #### [place] [address] Eosinophils (Bld) [#/Vol] 0.41 10*3/uL High 0.00-0.36 [facility] Comment on above: Performed By: #### G CBCD #### [place] [address] Eosinophils/100 WBC (Bld) 4.6 % Normal [facility] Comment on above: Performed By: #### G CBCD #### [place] [address] Erythrocyte distribution width (RBC) [Ratio] 11.8 % Normal 11.8-14.5 [facility] Comment on above: Performed By: #### G CBCD #### [place] [address] Hematocrit (Bld) [Volume fraction] 50.0 % Normal 39.6-50.7 [facility] Comment on above: Performed By: #### G CBCD #### [facility] [address] [place] [address] Hemoglobin (Bld) [Mass/Vol] 17.2 g/dL Normal 13.2-17.4 [facility] Comment on above: Performed By: #### G CBCD #### [facility] [address] [place] [address] Lymphocytes (Bld) [#/Vol] 1.46 10*3/uL Normal 0.68-2.93 [facility] Comment on above: Performed By: #### G CBCD #### [place] [address] Lymphocytes/100 WBC (Bld) 16.4 % Normal [facility] Comment on above: Performed By: #### G CBCD #### [place] [address] MCH (RBC) [Entitic mass] 33.0 pg High 27.4-32.8 [facility] Comment on above: Performed By: #### G CBCD #### [facility] [address] [place] [address] MCHC 34.4 % Normal 31.9-35.6 [facility] Comment on above: Performed By: #### G CBCD #### [place] [address] MCV (RBC) [Entitic vol] 96.0 fL High 81.8-95.6 [facility] Comment on above: Performed By: #### G CBCD #### [place] [address] Monocytes/100 WBC (Bld) 5.7 % Normal [facility] Comment on above: Performed By: #### G CBCD #### [facility] [address] [place] [address] Platelet mean volume (Bld) [Entitic vol] 10.3 fL Normal 8.8-12.0 [facility] Comment on above: Performed By: #### G CBCD #### [address] [address] Platelets (Bld) [#/Vol] 295 10*3/uL Normal 150-370 [facility] Comment on above: Performed By: #### G CBCD #### [facility] [address] [place] [address] RBC 5.21 mil/cmm Normal 4.22-5.80 [facility] Comment on above: Performed By: #### G CBCD #### [place] [address] Seg Neutrophil 72.5 % Normal [facility] Comment on above: Performed By: #### G CBCD #### [place] [address] WBC (Bld) [#/Vol] 8.9 10*3/uL Normal 4.4-9.7 [facility] Comment on above: Performed By: #### G CBCD #### [place] [address] Hepatic Panelon 07-26-2020 Albumin [Mass/Vol] 4.1 g/dL Normal 3.4-5.0 [facility] Comment on above: Performed By: #### G HEPA #### [place] [address] ALP [Catalytic activity/Vol] 85 U/L Normal 46-116 [facility] Comment on above: Performed By: #### G HEPA #### [place] [address] ALT-SGPT Blood 38 U/L Normal 12-78 [facility] Comment on above: Performed By: #### G HEPA #### [place] [address] AST-SGOT Blood 23 U/L Normal 15-46 [facility] Comment on above: Performed By: #### G HEPA #### [place] [address] Bilirubin [Mass/Vol] 0.5 mg/dL Normal 0.2-1.0 [facility] Comment on above: Result Comment: Use of this assay is not recommended for patients undergoing treatment with eltrombopag due to the potential for falsely elevated results. Performed By: #### G HEPA #### [facility] [address] [place] [address] Bilirubin.direct [Mass/Vol] 0.10 mg/dL Normal 0.00-0.20 [facility] Comment on above: Performed By: #### G HEPA #### [place] [address] Protein [Mass/Vol] 8.2 g/dL Normal 6.4-8.2 [facility] Comment on above: Performed By: #### G HEPA #### [place] [address] Lipase Bloodon 07-26-2020 Lipase Blood 90 U/L Normal 73-393 [facility] Comment on above: Performed By: #### G LIP #### [place] [address] MDRD eGFRon 07-26-2020 GFR/1.73 sq M.predicted among non-blacks MDRD (S/P/Bld) [Vol rate/Area] mL/min/{1.73_m2} Normal >60mL/min/1 .73m2 [facility] Comment on above: Result Comment: If t he patient is , multiply the result by 1.210. Performed By: #### G GFR #### [place] [address] Urinalysis Routineon 020 Amorphous Phosphates MODERATE Abnormal None [facility] Comment on above: Performed By: #### G URIN #### [place] [address] Appearance (U) 1+ (HAZY) Normal [facility] Comment on above: Performed By: #### G URIN #### [place] [address] Bacteria Urine FEW Abnormal None [facility] Comment on above: Performed By: #### G URIN #### [place] [address] Color (U) YELLOW Normal [facility] Comment on above: Performed By: #### G URIN #### [facility] [address] [place] [address] Ep Cells Urine 2-5 Normal 0-5 [facility] Comment on above: Performed By: #### G URIN #### [facility] [address] [place] [address] Mucus Threads FEW Abnormal None [facility] Comment on above: Performed By: #### G URIN #### [facility] [address] [place] [address] RBC,Urine 0-3 Normal 0-3 [facility] Comment on above: Performed By: #### G URIN #### [facility] [address] [place] [address] WBC, Urine 2-5 Normal 0-5 [facility] Comment on above: Performed By: #### G URIN #### [facility] [address] [place] [address] Bilirubin Urine Negative Normal Negative [facility] Comment on above: Performed By: #### G URIN #### [facility] [address] [place] [address] Glucose Ql (U) Negative Normal Negative [facility] Comment on above: Performed By: #### G URIN #### [facility] [address] [place] [address] Hemoglobin,Urine Negative Normal Negative [facility] Comment on above: Performed By: #### G URIN #### [facility] [address] [place] [address] Ketone Urine Negative Normal Negative [facility] Comment on above: Performed By: #### G URIN #### [facility] [address] [place] [address] Leukocytes Esterase Negative Normal Negative [facility] Comment on above: Performed By: #### G URIN #### [facility] [address] [place] [address] Nitrites Urine Negative Normal Negative [facility] Comment on above: Performed By: #### G URIN #### [facility] [address] [place] [address] pH (U) 7.5 [pH] Normal 5.0-8.0 [facility] Comment on above: Performed By: #### G URIN #### [facility] [address] [place], [place] [address] Protein Urine Negative Normal Negative [facility] Comment on above: Performed By: #### G URIN #### [facility] [address] [place], [place] [address] Specific [place], Ur 1.020 Normal 1.005-1.030 [facility] Comment on above: Performed By: #### G URIN #### [facility] [address] [place], [place] [address] Urobilinogen,Ur 0.2 EU/dL Normal 0.2-1.0 [facility] Comment on above: Performed By: #### G URIN #### [facility] [address] [place], [place] [address] Vital Signs Date Time Vital Sign Value Performing Clinician Faci lity 01-18-2025 17:27-0500 Diastolic blood pressure 76 mm[Hg] Twin Wolfe MD Work Phone: [facility] [employer] 01-18-2025 17:27-0500 Heart rate 76 /min Twin Wolfe MD Work Phone: [facility] [employer] 01-18-2025 17:27-0500 Respiratory rate 16 /min Twin Wolfe MD Work Phone: [facility] [employer] 01-18-2025 17:27-0500 SaO2% (BldA) [Mass fraction] 95 % Twin Wolfe MD Work Phone: [facility] [employer] 01-18-2025 17:27-0500 Systolic blood pressure 126 mm[Hg] Twin Wolfe MD Work Phone: [facility] [employer] 01-18-2025 14:36-0500 Body height 165.1 cm Twin Wolfe MD Work Phone: [facility] [employer] 01-18-2025 14:36-0500 Body mass index (BMI) [Ratio] 25.21 kg/m2 Twin Wolfe MD Work Phone: [facility] 01-18-2025 14:36-0500 Body temperature 97.81 [degF] Twin Wolfe MD Work Phone: [facility] 01-18-2025 14:36-0500 Body weight 68.72 kg Twin Wolfe MD Work Phone: [facility] 12-31-2024 12:37-0500 Diastolic blood pressure 81 mm[Hg] [employer] DO Work Phone: [facility] 12-31-2024 12:37-0500 Heart rate 54 /min [employer] DO Work Phone: [facility] 12-31-2024 12:37-0500 Respiratory rate 16 /min [employer] DO Work Phone: [facility] 12-31-2024 12:37-0500 SaO2% (BldA) [Mass fraction] 99 % [employer] DO Work Phone: [facility] 12-31-2024 12:37-0500 Systolic blood pressure 148 mm[Hg] [employer] DO Work Phone: [facility] 12-31-2024 07:30-0500 Body height 165.1 cm [employer] DO Work Phone: [facility] 12-31-2024 07:30-0500 Body mass index (BMI) [Ratio] 24.13 kg/m2 [employer] DO Work Phone: [facility] 12-31-2024 07:30-0500 Body temperature 97.81 [degF] [employer] DO Work Phone: [facility] 12-31-2024 07:30-0500 Body weight 65.77 kg Tanya Matcha-[employer]martin DO Work Phone: [facility] 09-24-2024 19:01-0500 Diastolic blood pressure 85 mm[Hg] Fredrick Howell MD Work Phone: [facility] [employer] 09-24-2024 19:01-0500 Heart rate 93 /min Fredrick Howell MD Work Phone: [facility] [employer] 09-24-2024 19:01-0500 Respiratory rate 18 /min Fredrick Howell MD Work Phone: [facility] 09-24-2024 19:01-0500 SaO2% (BldA) [Mass fraction] 100 % Fredrick Howell MD Work Phone: [facility] [employer] 09-24-2024 19:01-0500 Systolic blood pressure 175 mm[Hg] Fredrick Howell MD Work Phone: [facility] 09-24-2024 17:35-0500 Body height 165.1 cm Fredrick Howell MD Work Phone: [facility] 09-24-2024 17:35-0500 Body mass index (BMI) [Ratio] 26.63 kg/m2 Fredrick Howell MD Work Phone: [facility] [employer] 09-24-2024 17:35-0500 Body weight 72.58 kg Fredrick Howell MD Work Phone: [facility] [employer] 09-24-2024 14:25-0500 Body temperature 97 [degF] Fredrick Howell MD Work Phone: [facility] 06-15-2024 15:48-0400 Body height 165.1 cm Giorgio Fernandez DO Work Phone: [facility] 06-15-2024 15:48-0400 Body temperature 98.1 [degF] Giorgio Fernandez DO Work Phone: [facility] 06-15-2024 15:48-0400 Diastolic blood pressure 82 mm[Hg] Giorgio Fernandez DO Work Phone: [facility] 06-15-2024 15:48-0400 Heart rate 87 /min Giorgio Fernandez DO Work Phone: [facility] 06-15-2024 15:48-0400 SaO2% (BldA) [Mass fraction] 96 % Giorgio Fernandez DO Work Phone: [facility] 06-15-2024 15:48-0400 Systolic blood pressure 122 mm[Hg] Giorgio Fernandez DO Work Phone: [facility] 05-28-2024 19:38-0400 Body temperature 97.81 [degF] Alana Krishna MD Work Phone: [facility] 05-28-2024 19:38-0400 Diastolic blood pressure 78 mm[Hg] Alana Krishna MD Work Phone: [facility] 05-28-2024 19:38-0400 Heart rate 78 /min Alana Krishna MD Work Phone: [facility] 05-28-2024 19:38-0400 Respiratory rate 12 /min Alaan Krishna MD Work Phone: [facility] 05-28-2024 19:38-0400 SaO2% (BldA) [Mass fraction] 97 % Alana Krishna MD Work Phone: [facility] 05-28-2024 19:38-0400 Systolic blood pressure 125 mm[Hg] Alana Krishna MD Work Phone: [facility] 04-13-2024 23:35-0400 Body height 165.1 cm Russ Castro MD Work Phone: [facility] 04-13-2024 23:35-0400 Body mass index (BMI) [Ratio] 26.63 kg/m2 Russ Castro MD Work Phone: [facility] 04-13-2024 23:35-0400 Body temperature 98.4 [degF] Russ Castro MD Work Phone: [facility] 04-13-2024 23:35-0400 Body weight 72.58 kg Russ Castro MD Work Phone: [facility] 04-13-2024 23:35-0400 Diastolic blood pressure 98 mm[Hg] Russ Castro MD Work Phone: [facility] 04-13-2024 23:35-0400 Heart rate 85 /min Russ Castro MD Work Phone: [facility] 04-13-2024 23:35-0400 Respiratory rate 16 /min Russ Castro MD Work Phone: [facility] 04-13-2024 23:35-0400 SaO2% (BldA) [Mass fraction] 98 % Russ Castro MD Work Phone: [facility] 04-13-2024 23:35-0400 Systolic blood pressure 117 mm[Hg] Russ Castro MD Work Phone: [facility] 01-30-2024 14:37-0400 Body height [facility] A[employer] Work Phone: [facility] 01-30-2024 14:37-0400 Body temperature 97.2 [degF] [facility] MARKETING ANALYST.[employer] Work Phone: [facility] 01-30-2024 14:37-0400 Body weight 68.95 kg [facility] MARKETING ANALYST.[employer]AL[employer] EX[employer] Work Phone: [facility] 01-30-2024 14:37-0400 Diastolic blood pressure 64 mm[Hg] [facility] [employer] MARKETING ANALYST.[employer]AL[employer] EXEC[employer] Work Phone: [facility] 01-30-2024 14:37-0400 Heart rate 103 /min [facility] [employer] MARKETING ANALYST.SAL[employer] EXEC[employer] Work Phone: [facility] 01-30-2024 14:37-0400 SaO2% (BldA) [Mass fraction] 96 % [facility] [employer] MARKETING ANALYST.SAL[employer] EXEC[employer] Work Phone: [facility] 01-30-2024 14:37-0400 Systolic blood pressure 122 mm[Hg] Gary [employer] MARKETING ANALYST.SAL[employer] EXEC[employer] Work Phone: [facility] 10-24-2023 12:57-0500 Body height 165.1 cm Liset Menjivar CRM MARKETING ANALYST.SALES EXECUTIVE INSURANCE Work Phone: [facility] 10-24-2023 12:57-0500 Body temperature 96.8 [degF] Liset Menjivar CRM MARKETING ANALYST.SALES EXECUTIVE INSURANCE Work Phone: [facility] 10-24-2023 12:57-0500 Body weight 68.95 kg Liset Menjivar CRM MARKETING ANALYST.SALES EXECUTIVE INSURANCE Work Phone: [facility] 10-24-2023 12:57-0500 Diastolic blood pressure 86 mm[Hg] Liset Menjivar CRM MARKETING ANALYST.SALES EXECUTIVE INSURANCE Work Phone: [facility] 10-24-2023 12:57-0500 Systolic blood pressure 146 mm[Hg] Liset Menjivar CRM MARKETING ANALYST.SALES EXECUTIVE INSURANCE Work Phone: [facility] 08-08-2023 10:21-0400 Body height 165.1 cm Giorgio Fernandez DO Work Phone: [facility] 08-08-2023 10:21-0400 Body temperature 98.71 [degF] Giorgio Mirandaight DO Work Phone: [facility] 08-08-2023 10:21-0400 Body weight 70.31 kg Giorgio Fernandez DO Work Phone: [facility] 08-08-2023 10:21-0400 Diastolic blood pressure 100 mm[Hg] Giorgio Fernandez DO Work Phone: [facility] 08-08-2023 10:21-0400 Heart rate 70 /min Giorgio Fernandez DO Work Phone: [facility] 08-08-2023 10:21-0400 SaO2% (BldA) [Mass fraction] 99 % Giorgio Fernandez DO Work Phone: [facility] 08-08-2023 10:21-0400 Systolic blood pressure 140 mm[Hg] Giorgio Fernandez DO Work Phone: [facility] 06-17-2023 11:18-0400 Body height 165.1 cm Giorgio Mirandaight DO Work Phone: [facility] 06-17-2023 11:18-0400 Body temperature 98.29 [degF] Giorgio Mirandaight DO Work Phone: [facility] 06-17-2023 11:18-0400 Body weight 70.31 kg Giorgio Mirandaight DO Work Phone: [facility] 06-17-2023 11:18-0400 Diastolic blood pressure 80 mm[Hg] Giorgio Fernandez DO Work Phone: [facility] 06-17-2023 11:18-0400 Heart rate 79 /min Giorgio Mirandaight DO Work Phone: [facility] 06-17-2023 11:18-0400 SaO2% (BldA) [Mass fraction] 97 % Giorgio Mirandaight DO Work Phone: [facility] 06-17-2023 11:18-0400 Systolic blood pressure 100 mm[Hg] Giorgio Mirandaight DO Work Phone: [facility] 03-13-2023 09:46-0400 Body height 165.1 cm Giorgio Fernandez DO Work Phone: [facility] 03-13-2023 09:46-0400 Body temperature 97.81 [degF] Giorgio Mirandaight DO Work Phone: [facility] 03-13-2023 09:46-0400 Body weight 73.48 kg Giorgio Fernandez DO Work Phone: [facility] 03-13-2023 09:46-0400 Diastolic blood pressure 102 mm[Hg] Giorgio Mirandaight DO Work Phone: [facility] 03-13-2023 09:46-0400 Heart rate 70 /min Giorgio Mirandaight DO Work Phone: [facility] 03-13-2023 09:46-0400 SaO2% (BldA) [Mass fraction] 96 % Giorgio Mirandaight DO Work Phone: [facility] 03-13-2023 09:46-0400 Systolic blood pressure 168 mm[Hg] Giorgio Fernandez DO Work Phone: [facility] 02-04-2023 10:24-0400 Body height 165.1 cm Cindy Bolyard PA-C Work Phone: [facility] 02-04-2023 10:24-0400 Body temperature 98.49 [degF] Cindy Bolyard PA-C Work Phone: [facility] 02-04-2023 10:24-0400 Body weight 70.76 kg Cindy Bolyard PA-C Work Phone: [facility] 02-04-2023 10:24-0400 Diastolic blood pressure 64 mm[Hg] Cindy Bolyard PA-C Work Phone: [facility] 02-04-2023 10:24-0400 Heart rate 64 /min Cindy Bolyard PA-C Work Phone: [facility] 02-04-2023 10:24-0400 SaO2% (BldA) [Mass fraction] 97 % Cindy Bolyard PA-C Work Phone: [facility] 02-04-2023 10:24-0400 Systolic blood pressure 112 mm[Hg] Cindy Bolyard PA-C Work Phone: [facility] 01-31-2023 10:32-0400 Body height 165.1 cm Rina Rojas APRN.SALES EXECUTIVE INSURANCE Work Phone: [facility] 01-31-2023 10:32-0400 Body weight 72.58 kg Rina Rojas APRN.SALES EXECUTIVE INSURANCE Work Phone: [facility] 01-31-2023 10:32-0400 Diastolic blood pressure 70 mm[Hg] Rina Rojas APRN.SALES EXECUTIVE INSURANCE Work Phone: [facility] 01-31-2023 10:32-0400 Heart rate 82 /min Rina Rojas APRN.SALES EXECUTIVE INSURANCE Work Phone: [facility] 01-31-2023 10:32-0400 SaO2% (BldA) [Mass fraction] 98 % Rina Rojas CRM MARKETING ANALYST.SALES EXECUTIVE INSURANCE Work Phone: [facility] 01-31-2023 10:32-0400 Systolic blood pressure 100 mm[Hg] Rina Rojas CRM MARKETING ANALYST.SALES EXECUTIVE INSURANCE Work Phone: [facility] 12-26-2022 09:18-0500 Body height 165.1 cm Giorgio Fernandez DO Work Phone: [facility] 12-26-2022 09:18-0500 Body temperature 97.7 [degF] Giorgio Mirandaight DO Work Phone: [facility] 12-26-2022 09:18-0500 Body weight 75.75 kg Giorgio Mirandaight DO Work Phone: [facility] 12-26-2022 09:18-0500 Diastolic blood pressure 82 mm[Hg] Giorgio Mirandaight DO Work Phone: [facility] 12-26-2022 09:18-0500 Heart rate 60 /min Giorgio Mirandaight DO Work Phone: [facility] 12-26-2022 09:18-0500 SaO2% (BldA) [Mass fraction] 97 % Giorgio Fernandez DO Work Phone: [facility] 12-26-2022 09:18-0500 Systolic blood pressure 116 mm[Hg] Giorgio Fernandez DO Work Phone: [facility] 12-06-2022 11:07-0500 Body height 165.1 cm Shane Justice PA-C Work Phone: [facility] 12-06-2022 11:07-0500 Body temperature 96.6 [degF] Shane Justice PA-C Work Phone: [facility] 12-06-2022 11:07-0500 Body weight 74.39 kg Shane Justice PA-C Work Phone: [facility] 12-06-2022 11:07-0500 Diastolic blood pressure 80 mm[Hg] Shane Justice PA-C Work Phone: [facility] 12-06-2022 11:07-0500 Heart rate 60 /min Shane Justice PA-C Work Phone: [facility] 12-06-2022 11:07-0500 SaO2% (BldA) [Mass fraction] 96 % Shane Justice PA-C Work Phone: [facility] 12-06-2022 11:07-0500 Systolic blood pressure 126 mm[Hg] Shane Justice PA-C Work Phone: [facility] 11-28-2022 15:50-0500 Body height 165.1 cm Yokasta Kaylah DO Work Phone: [facility] 11-28-2022 15:50-0500 Body temperature 96.4 [degF] Yokasta Kaylah DO Work Phone: [facility] 11-28-2022 15:50-0500 Body weight 78.02 kg Yokasta Kaylah DO Work Phone: [facility] 11-28-2022 15:50-0500 Diastolic blood pressure 80 mm[Hg] Yokasta Kaylah DO Work Phone: [facility] 11-28-2022 15:50-0500 Heart rate 60 /min Yokasta Kaylah DO Work Phone: [facility] 11-28-2022 15:50-0500 SaO2% (BldA) [Mass fraction] 98 % Yokasta Kaylah DO Work Phone: [facility] 11-28-2022 15:50-0500 Systolic blood pressure 110 mm[Hg] Yokasta Kaylah DO Work Phone: [facility] 10-02-2022 13:42-0500 Body height 165.1 cm Giorgio Fernandez DO Work Phone: [facility] 10-02-2022 13:42-0500 Body temperature 97.11 [degF] Giorgio Fernandez DO Work Phone: [facility] 10-02-2022 13:42-0500 Body weight 75.75 kg Giorgio Fernandez DO Work Phone: [facility] 10-02-2022 13:42-0500 Diastolic blood pressure 82 mm[Hg] Giorgio Fernandez DO Work Phone: [facility] 10-02-2022 13:42-0500 Heart rate 85 /min Giorgio Fernandez DO Work Phone: [facility] 10-02-2022 13:42-0500 SaO2% (BldA) [Mass fraction] 95 % Giorgio Fernandez DO Work Phone: [facility] 10-02-2022 13:42-0500 Systolic blood pressure 122 mm[Hg] Giorgio Fernandez DO Work Phone: [facility] 09-14-2022 13:11-0400 Body height 165.1 cm Yokasta Kaylah DO Work Phone: [facility] 09-14-2022 13:11-0400 Body temperature 98.01 [degF] Yokasta Kaylah DO Work Phone: [facility] 09-14-2022 13:11-0400 Body weight 75.75 kg Yokasta Kaylah DO Work Phone: [facility] 09-14-2022 13:11-0400 Diastolic blood pressure 78 mm[Hg] Yokasta Kaylah DO Work Phone: [facility] 09-14-2022 13:11-0400 Heart rate 54 /min Yokasta Kaylah DO Work Phone: [facility] 09-14-2022 13:11-0400 SaO2% (BldA) [Mass fraction] 100 % Yokasta Kaylah DO Work Phone: [facility] 09-14-2022 13:11-0400 Systolic blood pressure 116 mm[Hg] Yokasta Kaylah DO Work Phone: [facility] 02-25-2022 12:45-0400 Body temperature 97.5 [degF] Og Tobar MD Work Phone: [facility] 02-25-2022 12:45-0400 Diastolic blood pressure 84 mm[Hg] Og Tobar MD Work Phone: [facility] 02-25-2022 12:45-0400 Heart rate 64 /min Og Tobar MD Work Phone: [facility] 02-25-2022 12:45-0400 Respiratory rate 18 /min Og Tobar MD Work Phone: [facility] 02-25-2022 12:45-0400 SaO2% (BldA) [Mass fraction] 97 % Og Tobar MD Work Phone: [facility] 02-25-2022 12:45-0400 Systolic blood pressure 120 mm[Hg] Og Tobar MD Work Phone: [facility] 11-08-2021 13:17-0500 Body temperature 97.5 [degF] Daisy Stinson MD Work Phone: [facility] 11-08-2021 13:17-0500 Diastolic blood pressure 99 mm[Hg] Daisy Stinson MD Work Phone: [facility] 11-08-2021 13:17-0500 Heart rate 83 /min Daisy Stinson MD Work Phone: [facility] 11-08-2021 13:17-0500 Respiratory rate 16 /min Daisy Stinson MD Work Phone: [facility] 11-08-2021 13:17-0500 SaO2% (BldA) [Mass fraction] 100 % Daisy Stinson MD Work Phone: [facility] 11-08-2021 13:17-0500 Systolic blood pressure 143 mm[Hg] Daisy Stinson MD Work Phone: [facility] 10-31-2021 15:31-0500 Body temperature 97.5 [degF] Jonn Mcdonnell MD Work Phone: [facility] 10-31-2021 15:31-0500 Body weight 77.11 kg Jonn Mcdonnell MD Work Phone: [facility] 10-31-2021 15:31-0500 Diastolic blood pressure 67 mm[Hg] Jonn Mcdonnell MD Work Phone: [facility] 10-31-2021 15:31-0500 Heart rate 64 /min Jonn Mcdonnell MD Work Phone: [facility] 10-31-2021 15:31-0500 Respiratory rate 18 /min Jonn Mcdonnell MD Work Phone: [facility] 10-31-2021 15:31-0500 SaO2% (BldA) [Mass fraction] 98 % Jonn Mcdonnell MD Work Phone: [facility] 10-31-2021 15:31-0500 Systolic blood pressure 107 mm[Hg] Jonn Mcdonnell MD Work Phone: [facility] Encounters Encounter Date Encounter Type Care Provider Facility Start: 07-20-2025 ambulatory Rose GARSIA Facil ity:[facility] Start: 06-21-2025 ambulatory Rose GARSIA Facil ity:[facility] Start: 04-19-2025 ambulatory Rose GARSIA Facil ity:[facility] Start: 04-19-2025 Registered Referred Rose Clark -[facility] [place] [facility] [address] Start: 04-14-2025 ambulatory Rose GARSIA Facil ity:[facility] Start: 04-14-2025 Registered Referred Rose Clark -[facility] [place] - [address] Start: 03-23-2025 End: 03-23-2025 ambulatory Rose GARSIA [facility] Work Phone: Start: 03-23-2025 End: 03-23-2025 Departed Referred Rose Clark -[facility] [place] - [address] Start: 03-23-2025 Registered Referred Rose Clark -[facility] [place] [facility] [address] Start: 03-23-2025 End: 03-23-2025 ambulatory Rose GARSIA Facility:[facility] Start: 03-15-2025 End: 03-15-2025 ambulatory Rose GARSIA [facility] Work Phone: Start: 03-15-2025 End: 03-15-2025 Departed Referred Rose Beckfordremy Irma - [address] Start: 03-15-2025 End: 03-15-2025 ambulatory Rose GARSIA Facility:[facility] Start: 01-25-2025 End: 01-25-2025 ambulatory Rose Valdezhner [facility] Work Phone: Start: 01-25-2025 End: 01-25-2025 Departed Referred Rose Ayse CarrionEmersonremy Solis - [address] Start: 01-25-2025 Registered Referred Rose Solis - [address] Start: 01-25-2025 End: 01-25-2025 ambulatory Rose GARSIA Facility:[facility] Start: 01-20-2025 End: 01-20-2025 ambulatory Rose GARSIA [facility] Work Phone: Start: 01-20-2025 End: 01-20-2025 Departed Referred Rose Clark MuraliJenn [facility] - [address] Start: 01-20-2025 End: 01-20-2025 ambulatory Rose GARSIA Facility:[facility] Start: 01-18-2025 End: 01-18-2025 Emergency department patient visit Twin Wolfe MD Work Phone: [id number] Comment on above: Fall, initial encoun ter (Primary Dx); Closed head injury, initial encounter Start: 01-15-2025 End: 01-15-2025 ambulatory Rose Valdezhner [facility] Work Phone: Start: 01-15-2025 End: 01-15-2025 Departed Referred Rose Ayseshira Beckfordremy Irma - [address] Start: 01-15-2025 Registered Referred Rose Solis - [address] Start: 01-15-2025 End: 01-15-2025 ambulatory Rose GARSIA Facility:[facility] Start: 12-31-2024 End: 12-31-2024 Emergency department patient visit Tanya Jung DO Work Phone: [facility] ED Comment on above: Agitation due to dem entia (HCC) (Primary Dx) Start: 09-24-2024 End: 09-24-2024 Emergency department patient visit Fredrick Howell MD Work Phone: [facility] Comment on above: Fall, initial encoun ter (Primary Dx); Closed head injury, initial encounter Start: 09-15-2024 Emergency department patient visit GIORGIO FERNANDEZ Facility:[facility] Start: 09-15-2024 End: 09-15-2024 ambulatory Rose GARSIA Facility:[facility] Start: 09-14-2024 End: 09-14-2024 Refill Giorgio Fernandez DO Work Phone: [facility] Comment on above: Refill Request Start: 08-18-2024 End: 08-18-2024 ambulatory Rose GARSIA Facility:[facility] Start: 07-28-2024 End: 07-29-2024 Emergency department patient visit KATIA BACA Facility:[facility] Start: 07-14-2024 End: 07-14-2024 Telephone encounter Ze Stock MD Work Phone: [place] [facility] Comment on above: Modified Stan carter Start: 07-02-2024 Telephone encounter Gary Matute APRN.SALES EXECUTIVE INSURANCE Work Phone: [facility] Start: 06-26-2024 ambulatory Anita Barrera RN AG Sewer Maintenance Supervisor Start: 06-26-2024 Home visit Anita Barrera RN AG Sewer Maintenance Supervisor Comment on above: Transition Of Care ( TCM. Admitted to [facility] care of [place]) Start: 06-25-2024 Refill Giorgio Fernandez DO Work Phone: [facility] Comment on above: Refill Request Start: 06-25-2024 Emergency department patient visit GIORGIO FERNANDEZ Facility:[facility] Start: 06-24-2024 Telephone encounter Giorgio Fernandez DO Work Phone: [facility] Comment on above: Release Of Medical R ecords Start: 06-22-2024 Refill Giorgio rodríguez Chava DO Work Phone: [facility] Comment on above: Refill Request Start: 06-22-2024 Refill Giorgio rodríguez Chava DO Work Phone: [facility] Comment on above: Refill Request Start: 06-19-2024 ambulatory Maria Isabel Pisano RN AG Amb ulatory Care Start: 06-19-2024 Home visit Maria Isabel Pisano RN AG [facility] Care Comment on above: Population Health Na vigation Outreach (Discharged from 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); Dysarthria; Primary hypertension Start: 06-15-2024 End: 06-15-2024 ambulatory GIORGIO FERNANDEZ Facility:[facility] Start: 05-28-2024 End: 05-28-2024 Subsequent hospital visit by physician [facility] Xr Portable [facility] Radiology Comment on above: Arrived Start: 05-28-2024 End: 05-28-2024 Emergency department patient visit Alana Krishna MD Work Phone: [facility] ED Comment on above: Encounter for medica l screening examination (Primary Dx) Start: 05-22-2024 ambulatory Maria Isabel Pisano RN AG Amb ulatory Care Start: 05-22-2024 Home visit Maria Isabel Pisano RN Amb ulatory Care Comment on above: Transition Of Care ( [facility] discharge to [facility]) Start: 05-19-2024 ambulatory Fariha Turpin RN Sewer Maintenance Supervisor Start: 05-19-2024 Evaluation and manag ement of inpatient Fariha Turpin RN Sewer Maintenance Supervisor Comment on above: Transition Of Care ( Inpatient TCM visit) Start: 05-18-[address] [facility] Vida Gold MD Work Phone: Neurosurgery Comment on above: Stroke-like symptom (Primary Dx) Start: 05-18-2024 ambulatory Maria Isabel Pisano RN Amb ulatory Care Start: 05-18-2024 Home visit Maria Isabel Pisano RN Amb ulatory Care Comment on above: Transition Of Care ( Discharged from [facility] to [facility]) Start: 05-18-2024 Telemedicine consult ation with patient Vida Gold MD Work Phone: Neurosurgery Start: 05-18-2024 Emergency department patient visit GIORGIO FERNANDEZ Facility:[facility] Start: 05-14-2024 ambulatory Edna patel RN Work Phone: Sewer Maintenance Supervisor Management Start: 05-14-2024 Patient encounter procedure Kailey Helton RN Work Phone: Sewer Maintenance Supervisor Management Comment on above: JAIMIE COLLADO RN ( ED Utilization Review per request of payor/) Start: 05-01-2024 ambulatory Maria Isabel Pisano RN Amb ulatory Care Start: 05-01-2024 Home visit Maria Isabel Pisano RN Amb ulatory Care Comment on above: Transition Of Care ( [facility] discharge to [facility]) Start: 04-30-2024 End: 05-15-2024 ambulatory SELENA HAZEL Facility:[facility] Start: 04-30-2024 End: 05-15-2024 Subsequent hospital visit by physician Selena Hazel DO Work Phone: [facility] Start: 04-27-2024 Patient Update Ramirez Cantor MD Work Phone: [facility] Comment on above: Orders Start: 04-15-2024 Evaluation and manag ement of inpatient RAMIREZ CANTOR Facility:[facility] Start: 04-15-[address] [facility] Radha Malhotra MD Work Phone: Neurosurgery Comment on above: Arterial ischemic st [facility]ke (HCC) (Primary Dx) Start: 04-15-2024 ambulatory Tanya Whiting LPN [facility] Primary [facility] Start: 04-15-2024 Patient encounter procedure Tanya Whiting LPN [facility] Comment on above: Transition Of Care ( [facility] ed d/c 04/14/24) Start: 04-15-2024 Telemedicine consult ation with patient Radha Malhotra MD Work Phone: Neurosurgery Start: 04-15-2024 ambulatory RADHA MALHOTRA [facility] Start: 04-14-2024 End: 04-14-2024 Subsequent hospital visit by physician [facility] Ed Xr Portable [facility] X-ray Comment on above: Arrived Start: 04-13-2024 End: 04-14-2024 Emergency department patient visit Russ Castro MD Work Phone: [facility] Emergency Dept Comment on above: Acute left-sided low back pain with left-sided sciatica (Primary Dx) Start: 04-10-2024 ambulatory Mallory Tellez RN KRISTAL SE FACSIMILE MACHINE OPERATOR Comment on above: Pain, Back Start: 04-09-2024 Telephone encounter Gary Matute APRN.SALES EXECUTIVE INSURANCE Work Phone: [facility] Comment on above: No Show Start: 03-18-2024 Refill Gary benites CRM MARKETING ANALYST.SALES EXECUTIVE INSURANCE Work Phone: [facility] Comment on above: Refill Request (clar itin) Start: 01-30-2024 End: 01-30-2024 Patient encounter procedure Gary Matute CRM MARKETING ANALYST.SALES EXECUTIVE INSURANCE Work Phone: [facility] Comment on above: Acute non-recurrent pansinusitis (Primary Dx); Active advance directive Start: 01-15-2024 Refill Giorgio Fernandez DO Work Phone: [facility] Comment on above: Refill Request (mecl izine) Start: 01-12-2024 ambulatory Edna correa RN NURSE FACSIMILE MACHINE OPERATOR Comment on above: Confusion Start: 10-24-2023 Telephone encounter Giorgio Fernandez DO Work Phone: [facility] Comment on above: Orders (Psychiatry ) Start: 10-24-2023 End: 10-24-2023 Patient encounter procedure Liset Menjivar APRN.SALES EXECUTIVE INSURANCE Work Phone: [facility] Comment on above: Anxiety with depress ion (Primary Dx); Inattention; Cerebellar stroke (HCC); Coronary artery disease involving [place] coronary artery of [place] heart without angina pectoris; Aortic dilatation (HCC); Laceration of right eyebrow, subsequent encounter Start: 10-06-2023 End: 10-07-2023 Emergency department patient visit [id number] Start: 08-08-2023 End: 08-08-2023 Patient encounter procedure Giorgio Fernandez DO Work Phone: [facility] Comment on above: Weight loss (Primary Dx); Coronary artery disease involving [place] heart without angina pectoris, unspecified vessel or lesion type; High cholesterol; Moses's esophagus without dysplasia; HTN (hypertension), benign; Anxiety with depression Start: 08-06-2023 Telephone encounter Giorgio Fernandez DO Work Phone: [facility] Comment on above: Dizziness Start: 08-05-2023 Refill Giorgio Fernandez DO Work Phone: [facility] Comment on above: Refill Request (mecl izine) Start: 07-24-2023 Telephone encounter Cindy Ring PA-C Work Phone: [facility] Start: 07-10-2023 Refill Giorgio Fernandez DO Work Phone: [facility] Comment on above: Refill Request (venl afaxine) Start: 06-18-2023 End: 06-18-2023 ambulatory Caleb Benjamin OTR/L Work Phone: [facility] Comment on above: Cerebellar stroke (H CC) (Primary Dx); Vascular dementia without behavioral disturbance (HCC) Start: 06-17-2023 End: 06-17-2023 Patient encounter procedure Giorgio Villa Chava DO Work Phone: [facility] Comment on above: Lateral epicondyliti s of right elbow (Primary Dx); Anxiety with depression; Stage 3a chronic kidney disease (HCC); High cholesterol Start: 05-08-2023 Telephone encounter Giovanni gan CRM MARKETING ANALYST - SALES EXECUTIVE INSURANCE Work Phone: [facility] Geriatrics Comment on above: Driving Eval Start: 05-06-2023 Refill Giorgio Fernandez DO Work Phone: [facility] Comment on above: Refill Request Start: 04-16-2023 Refill Alem Fountain v, MD Work Phone: [facility] Comment on above: Refill Request Start: 03-13-2023 End: 03-13-2023 Patient encounter procedure Giorgio Villa Chava DO Work Phone: [facility] Comment on above: Primary hypertension (Primary Dx); Vertigo; TIA (transient ischemic attack); Carotid stenosis, right; Pure hypercholesterolemia Start: 03-05-2023 Telephone encounter Giorgio Fernandez DO Work Phone: [facility] Comment on above: Patient Question Start: 02-25-2023 Patient Outreach Tanya Holguin [facility] Comment on above: Transition Of Care ( [facility] d/c 02/24/23) Start: 02-22-2023 Telephone encounter Twin Lynch MD Work Phone: Neurosurgery Comment on above: Potential Stroke Sym ptoms Start: 02-11-2023 ambulatory Monik Marks RN AG VNS Start: 02-11-2023 Follow-up encounter Monik Marks RN Sewer Maintenance Supervisor Comment on above: Transition Of Care ( TCM Follow up) Start: 02-08-2023 Telephone encounter Giorgio Fernandez DO Work Phone: [facility] Comment on above: Illness Start: 02-04-2023 End: 02-04-2023 Patient encounter procedure Cindy Ring PA-C Work Phone: [facility] Comment on above: TIA (transient ische fe attack) (Primary Dx); Carotid stenosis, right; Left-sided weakness; Chronic abdominal pain; Primary hypertension; Pure hypercholesterolemia; Active advance directive; Hypocalcemia Start: 01-31-2023 End: 01-31-2023 Patient encounter procedure Rina Rojas APRN.SALES EXECUTIVE INSURANCE Work Phone: [facility] Comment on above: S/P carotid endarter ectomy (Primary Dx); Dizziness; Nausea; Epigastric pain; Fatigue, unspecified type Start: 01-30-2023 ambulatory Citlalli Vega RN NURSE FACSIMILE MACHINE OPERATOR Comment on above: Information Start: 01-28-2023 Patient Outreach Monik Marks RN Sewer Maintenance Supervisor Comment on above: Transition Of Care ( D/C from [facility] 01/26/23 to Home) Start: 01-20-2023 Telephone encounter Michelle viveros QUARANTINE INSPECTOR [facility] Comment on above: Home Care (Follow fo r [facility] ) Start: 01-19-2023 ambulatory Andrew ryenoso MD Work Phone: Neurosurgery Comment on above: Cerebrovascular acci dent (CVA) due to stenosis of right carotid artery (HCC) (Primary Dx) Start: 01-19-2023 Telemedicine consult ation with patient Andrew Hester MD Work Phone: [facility] Start: 01-18-2023 Telephone encounter Giorgio Fernandez DO Work Phone: [facility] Comment on above: Nurse Triage Call Opened In Error Start: 01-16-2023 End: 01-16-2023 Patient encounter procedure Radha Carlisle SALES EXECUTIVE INSURANCE Work Phone: [facility] ([place]) Comment on above: Adjustment disorder with mixed anxiety and depressed mood (Primary Dx); Vascular dementia without behavioral disturbance (HCC) Start: 01-08-2023 End: 01-08-2023 ambulatory Caleb Davishelen OTR/L Work Phone: [facility] Comment on above: Vascular dementia wi thout behavioral disturbance (HCC) (Primary Dx); Cerebellar stroke (HCC) Start: 12-31-2022 Telephone encounter Giorgio Fernandez DO Work Phone: [facility] Comment on above: Results Start: 12-26-2022 End: 12-26-2022 Subsequent hospital visit by physician Christal Almeida [facility] Comment on above: Foot pain, left [M79 .672] Start: 12-26-2022 End: 12-26-2022 Patient encounter procedure Giorgio Fernandez DO Work Phone: [facility] Comment on above: Foot pain, left (Tra citlalli Dx); Advance care planning; High cholesterol; Primary hypertension; Left leg claudication (HCC) Start: 12-25-2022 Telephone encounter Giorgio Fernandez DO Work Phone: [facility] Comment on above: feet swelling Start: 12-06-2022 End: 12-06-2022 Patient encounter procedure Shane Justice PA-C Work Phone: [facility] Comment on above: Gastroenteritis (Tra citlalli Dx); PUD (peptic ulcer disease); Moses's esophagus without dysplasia Start: 12-05-2022 Telephone encounter Giorgio Fernandez DO Work Phone: [facility] Comment on above: Nurse Triage Call Start: 12-01-2022 Refill Alem Fountain v, MD Work Phone: [facility] [place] Start: 11-28-2022 End: 11-28-2022 Office outpatient visit 25 minutes Yokasta Kaylah DO Work Phone: [facility] Comment on above: Anxiety with depress ion (Primary Dx); Major depressive disorder, recurrent, in full remission (HCC) Start: 11-28-2022 Telephone encounter Giorgio Fernandez DO Work Phone: [facility] Comment on above: Nurse Triage Call Start: 11-01-2022 Telephone encounter Giovanni gan CRM MARKETING ANALYST - SALES EXECUTIVE INSURANCE Work Phone: [facility] Comment on above: driving eval Start: 10-02-2022 End: 10-02-2022 Patient encounter procedure Giorgio Fernandez DO Work Phone: [facility] Comment on above: Encounter for annual wellness exam in Medicare patient (Primary Dx); Advance care planning; Lumbar radiculopathy; Sciatica associated with disorder of lumbar spine; Coronary artery disease involving [place] heart without angina pectoris, unspecified vessel or lesion type; HTN (hypertension), benign; Moses's esophagus without dysplasia; Recurrent major depressive disorder, in full remission (HCC); High cholesterol; Need for vaccination Start: 09-19-2022 Telephone encounter Shane Justice PA-C Work Phone: [facility] Comment on above: Patient Update Start: 09-18-2022 ambulatory Shanedavid Justice PA-C Work Phone: Sewer Maintenance Supervisor Start: 09-14-2022 Telephone encounter Yokasta Adrian DO Work Phone: [facility] Comment on above: Consult (PSYCHIATRY) Start: 09-14-2022 End: 09-14-2022 Patient encounter procedure Yokasta Kaylah DO Work Phone: [facility] Comment on above: Viral gastroenteriti s (Primary Dx); Anxiety with depression Start: 09-10-2022 Telephone encounter Giorgio Fernandez DO Work Phone: [facility] Comment on above: Contact Center Call Start: 08-21-2022 ambulatory [facility] Start: 07-16-2022 ambulatory [facility] Start: 07-16-2022 End: 07-16-2022 Subsequent hospital visit by physician Daisy Costello MD Work Phone: [facility] Start: 07-09-2022 End: 07-09-2022 Subsequent hospital visit by physician Daisy Costello MD Work Phone: [facility] Start: 06-28-2022 End: 06-28-2022 Subsequent hospital visit by physician Daisy Costello MD Work Phone: [facility] Start: 06-04-2022 ambulatory [facility] Start: 06-04-2022 End: 06-04-2022 Subsequent hospital visit by physician Daisy Costello MD Work Phone: [facility] Start: 05-29-2022 ambulatory [facility] Start: 05-29-2022 End: 05-29-2022 Subsequent hospital visit by physician Giovanni Reyes CRM MARKETING ANALYST - SALES EXECUTIVE INSURANCE Work Phone: [facility] Start: 05-15-2022 ambulatory [facility] Start: 05-14-2022 End: 05-14-2022 Subsequent hospital visit by physician Daisy Costello MD Work Phone: [facility] Start: 05-03-2022 ambulatory [facility] Start: 05-03-2022 End: 05-03-2022 Subsequent hospital visit by physician Alem Velasquez MD Work Phone: [facility] Comment on above: Gait disorder Start: 05-01-2022 End: 05-01-2022 Subsequent hospital visit by physician Daisy Costello MD Work Phone: [facility] Start: 04-26-2022 End: 04-26-2022 Subsequent hospital visit by physician Daisy Costello MD Work Phone: [facility] Start: 04-19-2022 End: 04-19-2022 Subsequent hospital visit by physician Daisy Costello MD Work Phone: [facility] Start: 04-12-2022 End: 04-12-2022 Patient encounter procedure Dianna Traylor PhD Work Phone: [facility] ([place] Comment on above: Postconcussion syndr ome (Primary Dx) Start: 04-11-2022 End: 04-11-2022 Subsequent hospital visit by physician Daisy Costello MD Work Phone: [facility] Start: 04-09-2022 End: 04-09-2022 Subsequent hospital visit by physician Daisy Costello MD Work Phone: [facility] Start: 04-06-2022 ambulatory Giovanni Reyes [facility] Start: 04-05-2022 ambulatory Frederic Velasquez [facility] Start: 04-04-2022 End: 04-04-2022 Subsequent hospital visit by physician Daisy Costello MD Work Phone: [facility] Start: 04-02-2022 End: 04-02-2022 Subsequent hospital visit by physician Daisy Costello MD Work Phone: [facility] Start: 03-30-2022 End: 03-30-2022 Subsequent hospital visit by physician Daisy Costello MD Work Phone: [facility] Start: 03-28-2022 End: 03-28-2022 Subsequent hospital visit by physician Daisy Costello MD Work Phone: [facility] Start: 03-27-2022 ambulatory [facility] Start: 03-21-2022 End: 03-21-2022 Subsequent hospital visit by physician Daisy Costello MD Work Phone: [facility] Start: 03-14-2022 End: 03-14-2022 Subsequent hospital visit by physician Daisy Costello MD Work Phone: [facility] Start: 03-12-2022 ambulatory [facility] Start: 03-07-2022 End: 03-07-2022 Subsequent hospital visit by physician Daisy Costello MD Work Phone: [facility] Start: 02-25-2022 End: 02-25-2022 Emergency department patient visit [facility] Start: 02-25-2022 End: 02-25-2022 Emergency department patient visit Og Tobar MD Work Phone: [facility] Comment on above: Head injury, initial encounter (Primary Dx); Post concussive syndrome; Fall, initial encounter; Carotid artery calcification, unspecified laterality Start: 02-21-2022 End: 02-21-2022 Subsequent hospital visit by physician Daisy Costello MD Work Phone: [facility] Start: 02-01-2022 ambulatory [facility] Start: 02-01-2022 End: 02-01-2022 Subsequent hospital visit by physician Kathrin Koroma CRM MARKETING ANALYST - SALES EXECUTIVE INSURANCE Work Phone: [facility] Start: 01-30-2022 End: 01-30-2022 Subsequent hospital visit by physician Kathrin Koroma CRM MARKETING ANALYST - SALES EXECUTIVE INSURANCE Work Phone: [facility] Start: 01-25-2022 End: 01-25-2022 Subsequent hospital visit by physician Kathrin Koroma CRM MARKETING ANALYST - SALES EXECUTIVE INSURANCE Work Phone: [facility] Start: 01-22-2022 End: 01-22-2022 Subsequent hospital visit by physician Kathrin Koroma CRM MARKETING ANALYST - SALES EXECUTIVE INSURANCE Work Phone: [facility] Start: 01-18-2022 End: 01-18-2022 Subsequent hospital visit by physician Kathrin Koroma APRN - SALES EXECUTIVE INSURANCE Work Phone: [facility] Start: 01-16-2022 End: 01-16-2022 Subsequent hospital visit by physician Kathrin Koroma CRM MARKETING ANALYST - SALES EXECUTIVE INSURANCE Work Phone: [facility] Start: 11-08-2021 End: 11-08-2021 Emergency department patient visit [facility] Start: 11-08-2021 End: 11-08-2021 Emergency department patient visit Daisy Stinson MD Work Phone: [facility] Comment on above: Concussion with loss of consciousness, subsequent encounter (Primary Dx) Start: 10-31-2021 End: 10-31-2021 Emergency department patient visit [facility] Start: 10-31-2021 End: 10-31-2021 Emergency department patient visit Jonn Mcdonnell MD Work Phone: [facility] Comment on above: Injury of head, init ial encounter (Primary Dx); Abrasion of left elbow, initial encounter; Sprain of right shoulder, unspecified shoulder sprain type, initial encounter Procedures Date Procedure Procedure Detail Performing Clinician Start: 03-23-2025 Urnls dip stick/tabl et reagent auto microscopy Rose GARSIA Start: 01-18-2025 Ct cervical spine w/ o contrast material Twin Wolfe MD Work Phone: Start: 01-18-2025 Ct head/brain w/o co ntrast material Twin Wolfe MD Work Phone: Start: 12-31-2024 Urinalysis complete panel - [facility] Work Phone: Start: 12-31-2024 Urnls dip stick/tabl et reagent auto microscopy Tanya Sofía [facility] DO Work Phone: Start: 12-31-2024 Basic metabolic pane l calcium total Tanya Jung DO Work Phone: Start: 09-24-2024 Basic metabolic pane l calcium total Sloane Saldaña MD Work Phone: Start: 09-24-2024 Ct cervical spine w/ o contrast material Fredrick Howell MD Work Phone: Start: 09-24-2024 Ct head/brain [...] Comment: Speci men Type: BLOOD SPECIMENOrdering Facility: [facility] Address: [address] [place] [address] Performed By: #### T SCR ####[facility] BLOOD BANKCLIA [id number] [place] [address] [place] Start: 05-11-2024 Blood count complete automated Selena Hazel DO Work Phone: Start: 05-07-2024 Basic metabolic pane l calcium total Selena Hazel DO Work Phone: Start: 05-05-2024 Basic metabolic [...] S luis enrique or Plasma Liset Menjivar APRN.SALES EXECUTIVE INSURANCE Work Phone: Start: 06-19-2023 Lipid 1996 panel [...] Jonn Mcdonnell MD Work Phone: Start: 12-08-2018 Colonoscopy Dianna carter PhD Work Phone: History of carotid endarterectomy S/P carotid endarterectomy Rinaotoniel Hermosillojessica WINTERSSALES EXECUTIVE INSURANCE Work Phone: Plan of Treatment Date Care Activity Detail Author Start: 10-06-2033 DTaP/Tdap/Td Vaccines (3 - Td or Tdap) DTaP/Tdap/Td Vaccines (3 - Td or Tdap) [facility] Start: 10-06-2033 Urine microalbumin profile DTaP,Tdap,Td Vaccine (4 - Td or Tdap) [facility] Start: 04-27-2031 DTaP/Tdap/Td vaccine (2 - Td or Tdap) DTaP/Tdap/Td vaccine (2 - Td or Tdap) [facility] Start: 04-27-2031 DTaP/Tdap/Td Vaccines (2 - Td or Tdap) DTaP/Tdap/Td Vaccines (2 - Td or Tdap) [facility] Start: 04-27-2031 Urine microalbumin profile [facility] Start: 04-16-2029 Lipid panel Lipid Screening [facility] Start: 12-08-2028 Colonoscopy COLONOSCOPY [facility] Start: 12-08-2028 COLORECTAL CANCER SCREENING COLORECTAL CANCER SCREENING [facility] Start: 12-08-2028 Screening for malignant neoplasm of colon [facility] Start: 10-25-2028 Lipid 1996 panel - Serum or Plasma Lipid Screening [facility] Start: 10-25-2028 Lipid panel Lipid Screening [facility] Start: 06-19-2028 Lipid 1996 panel - Serum or Plasma Lipid Screening [facility] Start: 06-19-2028 LIPID SCREEN LIPID SCREEN [facility] Start: 02-24-2028 LIPID SCREEN LIPID SCREEN [facility] Start: 12-26-2027 LIPID SCREEN LIPID SCREEN [facility] Start: 10-05-2027 LIPID SCREEN LIPID SCREEN [facility] Start: 05-28-2027 Diabetes Screening Diabetes Screening [facility] Start: 05-20-2027 Diabetes Screening Diabetes Screening [facility] Start: 05-19-2027 Diabetes Screening Diabetes Screening [facility] Start: 05-18-2027 Diabetes Screening Diabetes Screening [facility] Start: 05-07-2027 Diabetes Screening Diabetes Screening [facility] Start: 04-30-2027 Diabetes Screening Diabetes Screening [facility] Start: 04-27-2027 Diabetes Screening Diabetes Screening [facility] Start: 10-25-2026 Diabetes Screening Diabetes Screening [facility] Start: 06-19-2026 DIABETES SCREEN DIABETES SCREEN [facility] Start: 06-19-2026 Diabetes Screening Diabetes Screening [facility] Start: 02-24-2026 DIABETES SCREEN DIABETES SCREEN [facility] Start: 02-23-2026 Diabetes mellitus screening Diabetes Screening [facility] Start: 02-22-2026 DIABETES SCREEN DIABETES SCREEN [facility] Start: 01-26-2026 DIABETES SCREEN DIABETES SCREEN [facility] Start: 01-19-2026 DIABETES SCREEN DIABETES SCREEN [facility] Start: 12-29-2025 LIPID SCREEN LIPID SCREEN [facility] Start: 12-26-2025 DIABETES SCREEN DIABETES SCREEN [facility] Start: 10-04-2025 DIABETES SCREEN DIABETES SCREEN [facility] Start: 06-15-2025 Annual PCP Team Chronic Disease Visit Annual PCP Team Chronic Disease Visit [facility] Start: 05-28-2025 Creatinine measurement Serum Creatinine [facility] Start: 05-20-2025 Creatinine measurement Serum Creatinine [facility] Start: 05-19-2025 Creatinine measurement Serum Creatinine [facility] Start: 05-18-2025 Complete blood count Hemoglobin/Hematocrit [facility] Start: 05-18-2025 Creatinine measurement Serum Creatinine [facility] Start: 05-07-2025 Creatinine measurement Serum Creatinine [facility] Start: 04-30-2025 Creatinine measurement Serum Creatinine [facility] Start: 04-16-2025 Diabetes mellitus screening Diabetes Screening [facility] Start: 04-16-2025 Hepatitis B surface antibody level LDL Cholesterol [facility] Start: 01-29-2025 Annual PCP Team Chronic Disease Visit Annual PCP Team Chronic Disease Visit [facility] Start: 01-29-2025 BP Controlled (<130/80) BP Controlled (<130/80) [facility] Start: 12-10-2024 Annual PCP Team Chronic Disease Visit Annual PCP Team Chronic Disease Visit [facility] Start: 12-10-2024 BP Controlled (<130/80) BP Controlled (<130/80) [facility] Start: 11-18-2024 Medicare Advantage Annual Wellness Visit Medicare Advantage Annual Wellness Visit [facility] Start: 10-25-2024 Complete blood count Hemoglobin/Hematocrit [facility] Start: 10-25-2024 Creatinine measurement Serum Creatinine [facility] Start: 10-25-2024 Hemoglobin/Hematocrit Hemoglobin/Hematocrit [facility] Start: 10-25-2024 Hepatitis B surface antibody level LDL Cholesterol [facility] Start: 10-25-2024 Serum Creatinine Serum Creatinine [facility] Start: 10-24-2024 Annual PCP Team Chronic Disease Visit Annual PCP Team Chronic Disease Visit [facility] Start: 08-11-2024 End: 08-11-2024 Patient encounter procedure 08/11/2024 1:00 PM EDT Office Visit [facility] [address] [facility] [address] [place] [address] Gary Matute APRN.SALES EXECUTIVE INSURANCE [address] [facility] [address] [place] [address] follow up [facility] Comment on above: follow up Start: 07-29-2024 End: 07-29-2024 Patient encounter procedure 07/29/2024 1:15 PM EDT Appointment [facility] [address] [place] [id number] Acute ischemic right MCA stroke (HCC) [I63.511] [facility] Comment on above: Acute ischemic right MCA stroke (HCC) [I 63.511] Start: 07-19-2024 Covid-19 Vaccine ( season) Covid-19 Vaccine () [facility] Start: 07-19-2024 Influenza vaccination [facility] Start: 06-21-2024 DIABETES SCREEN DIABETES SCREEN [facility] Start: 06-19-2024 Hepatitis B surface antibody level LDL CHOLESTEROL [facility] Start: 06-19-2024 SERUM CREATININE SERUM CREATININE [facility] Start: 06-17-2024 ANNUAL PCP TEAM CHRONIC DISEASE VISIT ANNUAL PCP TEAM CHRONIC DISEASE VISIT [facility] Start: 06-15-2024 End: 06-15-2024 Patient encounter procedure 06/15/2024 4:00 PM EDT Office Visit [facility] [address] [facility] [address] [place] [address] Giorgio Fernandez [address] [place] [address] Follow up [facility] Comment on above: Follow up Start: 05-18-2024 End: 05-18-2024 Patient encounter procedure 05/18/2024 1:30 PM EDT Office Visit Neurology [address] [place] [address] Adriana Alexandra, RUDY.SALES EXECUTIVE INSURANCE [address] [place] [address] *scheduled at different location than preferred on order, due to time frame* Neurology Comment on above: *scheduled at different location than pr eferred on order, due to time frame* Start: 05-17-2024 Influenza [facility] Comment on above: Postponed from 07/19/2023 (Declined at t his time) Start: 2024 RSV Immunization for Adults (1 - 1-dose 75+ series) RSV Immunization for Adults (1 - 1-dose 75+ series) [facility] Start: 2024 RSV Vaccine (1 - 1-dose 75+ series) RSV Vaccine (1 - 1-dose 75+ series) [facility] Start: 03-13-2024 ANNUAL PCP TEAM CHRONIC DISEASE VISIT ANNUAL PCP TEAM CHRONIC DISEASE VISIT [facility] Start: 02-25-2024 SERUM CREATININE SERUM CREATININE [facility] Start: 02-24-2024 Hepatitis B surface antibody level LDL CHOLESTEROL [facility] Start: 02-23-2024 HEMOGLOBIN/HEMATOCRIT HEMOGLOBIN/HEMATOCRIT [facility] Start: 02-23-2024 SERUM CREATININE SERUM CREATININE [facility] Start: 02-05-2024 ANNUAL PCP TEAM CHRONIC DISEASE VISIT ANNUAL PCP TEAM CHRONIC DISEASE VISIT [facility] Start: 02-05-2024 BP CONTROLLED (<130/80) BP CONTROLLED (<130/80) [facility] Start: 02-01-2024 BP CONTROLLED (<130/80) BP CONTROLLED (<130/80) [facility] Start: 01-27-2024 SERUM CREATININE SERUM CREATININE [facility] Start: 01-20-2024 SERUM CREATININE SERUM CREATININE [facility] Start: 12-26-2023 ANNUAL PCP TEAM CHRONIC DISEASE VISIT ANNUAL PCP TEAM CHRONIC DISEASE VISIT [facility] Start: 12-26-2023 HEMOGLOBIN/HEMATOCRIT HEMOGLOBIN/HEMATOCRIT [facility] Start: 12-26-2023 Hepatitis B surface antibody level LDL CHOLESTEROL [facility] Start: 12-26-2023 SERUM CREATININE SERUM CREATININE [facility] Start: 12-06-2023 ANNUAL PCP TEAM CHRONIC DISEASE VISIT ANNUAL PCP TEAM CHRONIC DISEASE VISIT [facility] Start: 11-28-2023 ANNUAL PCP TEAM CHRONIC DISEASE VISIT ANNUAL PCP TEAM CHRONIC DISEASE VISIT [facility] Start: 11-18-2023 Advance Directive Discussion Advance Directive Discussion [facility] Start: 11-18-2023 Behavioral Health Screening Behavioral Health Screening [facility] Start: 11-18-2023 Medicare Advantage Annual Wellness Visit Medicare Advantage Annual Wellness Visit [facility] Start: 10-05-2023 Hepatitis B surface antibody level LDL CHOLESTEROL [facility] Start: 10-04-2023 SERUM CREATININE SERUM CREATININE [facility] Start: 10-02-2023 ANNUAL PCP TEAM CHRONIC DISEASE VISIT ANNUAL PCP TEAM CHRONIC DISEASE VISIT [facility] Start: 09-14-2023 ANNUAL PCP TEAM CHRONIC DISEASE VISIT ANNUAL PCP TEAM CHRONIC DISEASE VISIT [facility] Start: 09-14-2023 BP CONTROLLED (<130/80) BP CONTROLLED (<130/80) [facility] Start: 08-08-2023 End: 10-08-2023 25-hydroxyvitamin D3 [Mass/volume] in Serum or Plasma VITAMIN D 25 HYDROXY Lab Routine HTN (hypertension), benign Weight loss Anxiety with depression Expected: 08/08/2023, Expires: 10/08/2023 [facility] Work Phone: Comment on above: Expected: 08/08/2023, Expires: 3 Start: 08-08-2023 End: 10-08-2023 CBC W Auto Differential panel - Blood CBC + DIFF Lab Routine HTN (hypertension), benign Weight loss Anxiety with depression Expected: 08/08/2023, Expires: 10/08/2023 [facility] Work Phone: Comment on above: Expected: 08/08/2023, Expires: 3 Start: 08-08-2023 End: 10-08-2023 Cobalamin (Vitamin B12) [Mass/volume] in Serum or Plasma VITAMIN B12 BLOOD Lab Routine HTN (hypertension), benign Weight loss Anxiety with depression Expected: 08/08/2023, Expires: 10/08/2023 [facility] Work Phone: Comment on above: Expected: 08/08/2023, Expires: 3 Start: 08-08-2023 End: 10-08-2023 Comprehensive metabolic 2000 panel - Serum or Plasma COMP METABOLIC PANEL Lab Routine HTN (hypertension), benign Weight loss Anxiety with depression Expected: 08/08/2023, Expires: 10/08/2023 [facility] Work Phone: Comment on above: Expected: 08/08/2023, Expires: 3 Start: 08-08-2023 End: 10-08-2023 Iron and Iron binding capacity panel - Serum or Plasma IRON + TIBC Lab Routine HTN (hypertension), benign Weight loss Anxiety with depression Expected: 08/08/2023, Expires: 10/08/2023 [facility] Work Phone: Comment on above: Expected: 08/08/2023, Expires: 3 Start: 08-08-2023 End: 10-08-2023 Magnesium [Mass/volume] in Serum or Plasma MAGNESIUM BLD Lab Routine HTN (hypertension), benign Weight loss Anxiety with depression Expected: 08/08/2023, Expires: 10/08/2023 [facility] Work Phone: Comment on above: Expected: 08/08/2023, Expires: 3 Start: 08-08-2023 End: 10-08-2023 Thyrotropin [Units/volume] in Serum or Plasma TSH BLD Lab Routine HTN (hypertension), benign Weight loss Anxiety with depression Expected: 08/08/2023, Expires: 10/08/2023 [facility] Work Phone: Comment on above: Expected: 08/08/2023, Expires: 3 Start: 08-08-2023 End: 10-08-2023 Thyroxine (T4) free [Mass/volume] in Serum or Plasma T4 FREE/FREE THYROX Lab Routine HTN (hypertension), benign Weight loss Anxiety with depression Expected: 08/08/2023, Expires: 10/08/2023 [facility] Work Phone: Comment on above: Expected: 08/08/2023, Expires: 3 Start: 07-19-2023 Covid-19 Vaccine () Covid-19 Vaccine () [facility] Start: 07-19-2023 Influenza vaccination [facility] Start: 06-17-2023 End: 08-17-2023 CBC panel - Blood by Automated count CBC Lab Routine Stage 3a chronic kidney disease (HCC) High cholesterol Expected: 06/17/2023, Expires: 08/17/2023 [facility] Work Phone: Comment on above: Expected: 06/17/2023, Expires: 3 Start: 06-17-2023 End: 08-17-2023 Comprehensive metabolic 2000 panel - Serum or Plasma COMP METABOLIC PANEL Lab Routine Stage 3a chronic kidney disease (HCC) High cholesterol Expected: 06/17/2023, Expires: 08/17/2023 [facility] Work Phone: Comment on above: Expected: 06/17/2023, Expires: 3 Start: 06-17-2023 End: 08-17-2023 Lipid 1996 panel - Serum or Plasma LIPID PANEL BASIC Lab Routine Stage 3a chronic kidney disease (HCC) High cholesterol Expected: 06/17/2023, Expires: 08/17/2023 [facility] Work Phone: Comment on above: Expected: 06/17/2023, Expires: 3 Start: 05-07-2023 End: 07-07-2023 CBC W Auto Differential panel - Blood CBC + DIFF Lab Routine Primary hypertension Expected: 05/07/2023, Expires: 07/07/2023 [facility] Work Phone: Comment on above: Expected: 05/07/2023, Expires: 3 Start: 05-07-2023 End: 07-07-2023 Comprehensive metabolic 2000 panel - Serum or Plasma COMP METABOLIC PANEL Lab Routine Primary hypertension Expected: 05/07/2023, Expires: 07/07/2023 [facility] Work Phone: Comment on above: Expected: 05/07/2023, Expires: 3 Start: 05-07-2023 End: 07-07-2023 Lipid 1996 panel - Serum or Plasma LIPID PANEL BASIC Lab Routine Pure hypercholesterolemia Expected: 05/07/2023, Expires: 07/07/2023 [facility] Work Phone: Comment on above: Expected: 05/07/2023, Expires: 3 Start: 04-06-2023 Depression Screen Depression Screen [facility] Start: 02-04-2023 End: 04-06-2023 CBC W Auto Differential panel - Blood CBC + DIFF Lab Routine Carotid stenosis, right Left-sided weakness TIA (transient ischemic attack) Primary hypertension Expected: 02/04/2023, Expires: 04/06/2023 [facility] Work Phone: Comment on above: Expected: 02/04/2023, Expires: 3 Start: 02-04-2023 End: 02-05-2024 Comprehensive metabolic 2000 panel - Serum or Plasma COMP METABOLIC PANEL Lab Routine Primary hypertension Hypocalcemia Expected: 02/04/2023, Expires: 02/05/2024 [facility] Work Phone: Comment on above: Expected: 02/04/2023, Expires: 4 Start: 11-18-2022 ADVANCE DIRECTIVE DISCUSSION ADVANCE DIRECTIVE DISCUSSION [facility] Start: 10-30-2022 ANNUAL PCP TEAM CHRONIC DISEASE VISIT ANNUAL PCP TEAM CHRONIC DISEASE VISIT [facility] Start: 10-30-2022 BP CONTROLLED (<130/80) BP CONTROLLED (<130/80) [facility] Start: 10-02-2022 End: 12-02-2022 Hepatic function 2000 panel - Serum or Plasma HEPATIC FUNCTION PNL Lab Routine Recurrent major depressive disorder, in full remission (HCC) Expected: 10/02/2022, Expires: 12/02/2022 [facility] Work Phone: Comment on above: Expected: 10/02/2022, Expires: 3 Start: 09-18-2022 End: 11-18-2022 CBC panel - Blood by Automated count CBC Lab Routine CKD (chronic kidney disease) stage 2, GFR 60-89 ml/min Expected: 09/18/2022, Expires: 11/18/2022 [facility] Work Phone: Comment on above: Expected: 09/18/2022, Expires: 3 Start: 09-18-2022 End: 11-18-2022 Hemoglobin A1c in Blood HGB A1C Lab Routine Medication management Expected: 09/18/2022, Expires: 11/18/2022 [facility] Work Phone: Comment on above: Expected: 09/18/2022, Expires: 3 Start: 09-18-2022 End: 11-18-2022 Lipid 1996 panel - Serum or Plasma LIPID PANEL BASIC Lab Routine Hyperlipidemia Expected: 09/18/2022, Expires: 11/18/2022 [facility] Work Phone: Comment on above: Expected: 09/18/2022, Expires: 3 Start: 09-18-2022 End: 11-18-2022 Renal function 2000 panel - Serum or Plasma RENAL FUNCTION PANEL Lab Routine CKD (chronic kidney disease) stage 2, GFR 60-89 ml/min Expected: 09/18/2022, Expires: 11/18/2022 [facility] Work Phone: Comment on above: Expected: 09/18/2022, Expires: 3 Start: 09-18-2022 End: 11-18-2022 SCHEDULE LAB TESTING SCHEDULE LAB TESTING Lab Routine Expected: 09/18/2022, Expires: 11/18/2022 [facility] Work Phone: Comment on above: Expected: 09/18/2022, Expires: 3 Start: 09-06-2022 End: 09-06-2022 Patient encounter procedure [facility] Start: 08-21-2022 End: 08-21-2022 Patient encounter procedure 08/21/2022 Appointment Neurology [facility] Start: 07-19-2022 Influenza vaccination [facility] Start: 06-21-2022 SERUM CREATININE SERUM CREATININE [facility] Start: 06-01-2022 End: 06-01-2022 Patient encounter procedure 06/01/2022 Office Visit Neurosurgery Alem Velasquez MD [address] [place] [address] [facility] Start: 05-23-2022 End: 05-23-2022 Patient encounter procedure 05/23/2022 Office Visit Neurosurgery Alem Velasquez MD [address] [place] [address] [facility] Start: 05-22-2022 End: 05-22-2022 Patient encounter procedure 05/22/2022 Office Visit Geriatric Medicine Giovanni Reyes APRN - SALES EXECUTIVE INSURANCE [address] [address] [facility] Start: 05-15-2022 End: 05-15-2022 Patient encounter procedure [facility] Start: 05-15-2022 Subsequent hospital visit by physician 05/15/2022 Hospital Encounter MRI Alem Velasquez MD [address] [place] [address] [facility] Start: 05-04-2022 End: 05-04-2022 Patient encounter procedure 05/04/2022 Office Visit Geriatric Medicine Giovanni Reyes APRN - SALES EXECUTIVE INSURANCE [address] [address] [facility] Start: 04-24-2022 End: 04-24-2022 Patient encounter procedure 04/24/2022 Office Visit Geriatric Medicine Geri Dale MD [address] [place] [address] [facility] Start: 04-06-2022 End: 04-06-2022 Patient encounter procedure 04/06/2022 Office Visit Geriatric Medicine Giovanni Reyes, CRM MARKETING ANALYST - SALES EXECUTIVE INSURANCE [address] [place], [place] [id number] [facility] Start: 04-05-2022 End: 04-05-2022 Patient encounter procedure [facility] Start: 04-05-2022 Subsequent hospital visit by physician 04/05/2022 Hospital Encounter MRI Alem Velasquez MD [address] [place], [place] [id number] Other symptoms and signs involving cognitive functions and awareness; Unspecified abnormalities of gait and mobility [facility] Comment on above: Other symptoms and signs involving cogni tive functions and awareness; Unspecified abnormalities of gait and mobility Start: 03-27-2022 End: 03-27-2022 Patient encounter procedure 03/27/2022 Office Visit Geriatric Medicine Geri Dale MD [address] [place] [address] [facility] Start: 02-20-2022 Annual Wellness Visit (AWV) Annual Wellness Visit (AWV) [facility] Start: 02-20-2022 End: 02-20-2022 Patient encounter procedure 02/20/2022 Office Visit Neurosurgery Alem Velasquez MD [address] [place] [address] [facility] [place] Start: 12-29-2021 Hepatitis B surface antibody level LDL CHOLESTEROL [facility] Start: 11-18-2021 ADVANCE DIRECTIVE DISCUSSION ADVANCE DIRECTIVE DISCUSSION [facility] Start: 10-31-2021 Annual Wellness Visit (AWV) Annual Wellness Visit (AWV) [facility] Start: 09-09-2021 HEMOGLOBIN/HEMATOCRIT HEMOGLOBIN/HEMATOCRIT [facility] Start: 07-19-2021 Influenza vaccination Flu vaccine (#1) [facility] Start: 05-25-2021 DTaP/Tdap/Td Vaccines (2 - Td or Tdap) DTaP/Tdap/Td Vaccines (2 - Td or Tdap) [facility] Start: 09-25-2020 BP CONTROLLED (<130/80) BP CONTROLLED (<130/80) [facility] Start: 12-09-2016 Pneumococcal 65+ years Vaccine (2 - PPSV23 or PCV20) Pneumococcal 65+ years Vaccine (2 - PPSV23 or PCV20) [facility] Start: 12-09-2016 Pneumococcal 65+ years Vaccine (2 of 2 - PPSV23) Pneumococcal 65+ years Vaccine (2 of 2 - PPSV23) [facility] Start: 12-09-2016 Pneumococcal Vaccine: 50+ Years (2 of 2 - PPSV23) Pneumococcal Vaccine: 50+ Years (2 of 2 - PPSV23) [facility] Start: 12-09-2016 Pneumococcal Vaccine: 65+ (2 - PPSV23 or PCV20) Pneumococcal Vaccine: 65+ (2 - PPSV23 or PCV20) [facility] Start: 12-09-2016 Pneumococcal Vaccine: 65+ (2 of 2 - PPSV23 or PCV20) Pneumococcal Vaccine: 65+ (2 of 2 - PPSV23 or PCV20) [facility] Start: 12-09-2016 Pneumococcal Vaccine: 65+ Years (2 - PPSV23 if available, else PCV20) Pneumococcal Vaccine: 65+ Years (2 - PPSV23 if available, else PCV20) [facility] Start: 12-09-2016 Pneumococcal Vaccine: 65+ Years (2 of 2 - PPSV23 or PCV20) Pneumococcal Vaccine: 65+ Years (2 of 2 - PPSV23 or PCV20) [facility] Start: 12-09-2016 PNEUMOCOCCAL: 65+ (2 - PPSV23 if available, else PCV20) PNEUMOCOCCAL: 65+ (2 - PPSV23 if available, else PCV20) [facility] Start: 12-09-2016 PNEUMOCOCCAL: 65+ (2 - PPSV23 or PCV20) PNEUMOCOCCAL: 65+ (2 - PPSV23 or PCV20) [facility] Start: 02-03-2016 PNEUMOCOCCAL: 65+ (2 - PPSV23 if available, else PCV20) PNEUMOCOCCAL: 65+ (2 - PPSV23 if available, else PCV20) [facility] Start: 2014 Pneumococcal Vaccine: 65+ (1 of 1 - PCV) Pneumococcal Vaccine: 65+ (1 of 1 - PCV) [facility] Start: 2009 RSV Immunization aged 60 or older (1 - 1-dose 60+ series) RSV Immunization aged 60 or older (1 - 1-dose 60+ series) [facility] Start: 2009 RSV Vaccine (1 - 1-dose 60+ series) RSV Vaccine (1 - 1-dose 60+ series) [facility] Start: 1999 Shingles Vaccine (1 of 2) Shingles Vaccine (1 of 2) [facility] Start: 1999 SHINGRIX VACCINE (1 of 2) SHINGRIX VACCINE (1 of 2) [facility] Start: 1999 Zoster Vaccines (1 of 2) Zoster Vaccines (1 of 2) [facility] Start: 1994 COLOGUARD (FIT-DNA) COLOGUARD (FIT-DNA) [facility] Start: [address] COLONOGRAPHY [facility] Start: 1994 FECAL OCCULT BLOOD FECAL OCCULT BLOOD [facility] Start: 1994 Screening for malignant neoplasm of colon [facility] Start: 1994 SIGMOIDOSCOPY SIGMOIDOSCOPY [facility] Start: 1989 Lipid panel Lipid screen [facility] Start: 1968 Urine microalbumin profile DTaP,Tdap,Td Vaccine (1 - Tdap) [facility] Start: 1967 Annual PCP Team Chronic Disease Visit Annual PCP Team Chronic Disease Visit [facility] Start: 1967 BP Controlled (<130/80) BP Controlled (<130/80) [facility] Start: 1967 Creatinine measurement Creatinine [facility] Start: 1967 Diabetes mellitus screening Diabetes Screening [facility] Start: 1967 Hepatitis C screening [facility] Start: 1967 Potassium [Moles/volume] in Serum or Plasma Potassium [facility] Start: 1961 COVID-19 Vaccine (1) COVID-19 Vaccine (1) [facility] Start: 1961 Depression Monitoring Depression Monitoring [facility] Start: 1961 Depression Screen Depression Screen [facility] Start: 1961 Depression Screening Depression Screening [facility] Start: 1959 Lipid panel [facility] Start: 1954 COVID-19 VACCINE (#1) COVID-19 VACCINE (#1) [facility] Start: 1954 COVID-19 Vaccine (1) COVID-19 Vaccine (1) [facility] Start: 1949 COVID-19 Vaccine (#1) COVID-19 Vaccine (#1) [facility] Start: 1949 ABDOMINAL AORTIC ANEURYSM SCREENING ABDOMINAL AORTIC ANEURYSM SCREENING [facility] Start: 1949 Abdominal aortic aneurysm screening Abdominal Aortic Aneurysm Screening [facility] Start: 1949 Creatinine measurement Creatinine monitoring [facility] Start: 1949 Hepatitis B Vaccines (1 of 3 - 3-dose series) Hepatitis B Vaccines (1 of 3 - 3-dose series) [facility] Start: 1949 Hepatitis C screening Hepatitis C screen [facility] Start: 1949 Lipid panel Lipid Panel [facility] Start: 1949 Potassium monitoring Potassium monitoring [facility] Start: 1949 Screening for malignant neoplasm of colon [facility] End: 05-14-2024 CBC panel - Blood by Automated count COMPLETE BLOOD COUNT Lab Routine ONCE for 1 Occurrences starting 05/14/2024 until 05/14/2024 [facility] Work Phone: Comment on above: ONCE for 1 Occurrences starting 05/14/20 24 until 05/14/2024 End: 07-15-2025 RF videography Hypopharynx and Esophagus Views W liquid and paste contrast PO during swallowing XR MODIFIED BARIUM SWALLOW W SPEECH THERAPY Radiology Routine Left-sided weakness Cerebellar stroke (HCC) Dysarthria 1 Occurrences starting 06/15/2024 until 07/15/2025 [facility] Work Phone: Comment on above: 1 Occurrences starting 06/15/2024 until 07/15/2025 End: 05-27-2025 US Carotid arteries - bilateral US CAROTID BILATERAL Radiology Routine Acute ischemic right MCA stroke (HCC) 1 Occurrences starting 04/27/2024 until 05/27/2025 [facility] Work Phone: Comment on above: 1 Occurrences starting 04/27/2024 until 05/27/2025 End: 05-03-2022 XR EYE FOREIGN BODY [facility] Work Phone: Comment on above: 1 Occurrences starting 05/03/2022 until 05/03/2022 End: 01-25-2024 XR FOOT GENERAL 3V AP/LAT/OBL LEFT XR FOOT GENERAL 3V AP/LAT/OBL LEFT Radiology Routine Foot pain, left 1 Occurrences starting 12/26/2022 until 01/25/2024 [facility] Work Phone: Comment on above: 1 Occurrences starting 12/26/2022 until 01/25/2024 End: 12-26-2022 XR FOOT GENERAL 3V AP/LAT/OBL LEFT [facility] Work Phone: Comment on above: 1 Occurrences starting 12/26/2022 until 12/26/2022 [facility] Immunizations Immunization Date Immunization Notes Care Provider [facility] 10-06-2023 tetanus toxoid, redu remy diphtheria toxoid, and acellular pertussis vaccine, adsorbed Gary Matute APRN.CNP Work Phone: [facility] 10-02-2022 influenza, high-dose , quadrivalent vaccine (FLUZONE HIGH DOSE QUADRIVALENT) Giorgio Fernandez DO Work Phone: [facility] 10-02-2022 influenza virus vacc ine, unspecified formulation Giorgio Fernandez DO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 transportation financial coverage discussed with family?: Patient Director Of Officiating Location: [facility] Destination: [facility] Financial Care Management Responsibility: None Additional Information: Patient discharging to [facility] today at 1200. No 7000 needed, RN to call report and patient daughter agreeable to plan. SIGNATURE: Lolis Peñaloza RN PATIENT NAME: Jonathon Perales DATE: May 20, 2024 TIME: 10:54 AM CONTACT #: [id number] [facility] 05-19-2024 Note HNO ID: [id number] Author: LOLIS PEÑALOZA RN Service: Care Management Author Type: Registered Nurse Type: Care Mgt Progress Note Filed: 05/19/2024 15:49 Note Text: CARE MANAGEMENT PROGRESS NOTE SERVICE DATE: 05/19/2024 SERVICE TIME: 3:47 PM LOS: 1 day Needs Prior to Discharge: To Be Determined;Accepting Facility;Bed Availability;Precertification;Disc harge Transportation [facility] accepted patient, precert was initiated then approved. Cm called patient daughter to update her on the plan of having patient dc to facility tomorrow and she said she was confused. She thought the patient was going to get more therapy before returning to SNF. CM explained that the therapy he needs can be given at [facility] and that is why we got insurance involved. She then said she doesn't think that [facility] does enough with him and that he was discharged from [facility] too quickly. She asked that CM reach out to [facility] to see if they can take him back before he goes to [facility]. CM sent referral in allscripts and cancelled transport for tomorrow. SIGNATURE: Lolis Peñaloza RN PATIENT NAME: Jonathon Perales DATE: May 19, 2024 TIME: 3:47 PM PAGER/CONTACT #: [phone] [facility] 05-19-2024 Note HNO ID: [id number] Author: FARIHA TURPIN RN Service: ? Author Type: Registered Nurse Type: Progress Notes Filed: 05/19/2024 15:19 Note Text: AG PPG Transitional Care Management (TCM) Inpatient Patient Visit/Outreach Provider Action/FYI Plan SNF at discharge. Spouse lives in memory care, patient may stay at SNF [facility]. Patient Admitted To [facility] on 05/18/24 Patient admitted for fall, stroke sx Contact Made with Patient at bedside Yes, room [facility]- Patient identified by name and date of [...] discharge. We have your contact number as [phone] , is this the best number to contact you? Yes Address: [address] [place] [address] [place] [address] , is this where you will be staying after discharge? Yes Do you give us permission to speak to anyone else if you are unavailable to speak to us? Yes - name Lindsay Perales , relationship daughter and contact number [phone] Fariha Turpin RN May 19, 2024 3:16 PM [facility] 05-19-2024 History of Present illness Narrative AG PPG Transitional Care Management (TCM) Inpatient Patient Visit/Outreach Provider Action/FYI Plan SNF at discharge. Spouse lives in memory care, patient may stay at SNF herb counselor. Patient Admitted To [facility] on 05/18/24 Patient admitted for fall, stroke [...] discharge. We have your contact number as [phone] , is this the best number to contact you? Yes Address: [address] [place] [address] [place] [facility] , is this where you will be staying after discharge? Yes Do you give us permission to speak to anyone else if you are unavailable to speak to us? Yes - name Lindsay Perales , relationship daughter and contact number [phone] Fariha Turpin RN May 19, 2024 3:16 PM documented in this encounter [facility] 05-19-2024 Note HNO ID: [id number] Author: LOLIS PEÑALOZA RN Service: Care Management Author Type: Registered Nurse Type: Care Mgt Initial Assessment Filed: 05/19/2024 11:27 Note Text: CARE MANAGEMENT: ASSESSMENT AND DISCHARGE PLAN SERVICE DATE: May 19, 2024 SERVICE TIME: 11:23 AM PCP: Giorgio Fernandez DO Primary Contact: Extended Emergency Contact Information Primary Emergency Contact: KarinLindsay Montgomery Relation: Daughter Admission Status: Inpatient Insurance Provider: [facility] Discharge Planning requested by: Per Department Practice Potential Transition Plans Residential Facility/Intermediate Care Facility Advance Directives Current Advance Directive: None Proof Operator Attempted to Assist with AD Completion: Yes Action: Education Provided Current Living Arrangements and Support Lives with: Other person(s) SNF Type of Residence: Residential Facility Care Facility Name: [facility] Support: Family members How do you manage to accomplish the following: Needs Assistance: Ambulation;Bathe/Shower;Dress;Meal s/Meal Prep;Going to the bathroom;Medication Management;Transportation to appointments/community Current Services/Equipment Current Post-Acute Service(s): DME Current DME Type: Walker Discharge Planning Patient Goal(s): Less pain, General wellness [place] of Choice Explained: [place] of Choice Given: Yes Level of Care Discussed: Residential Facility Are you interested in bedside delivery of your medications? No Discharge Planning Participant(s): Patient;Family Patient/Family Comments: Caregiver Assessment: Caregiver is ready, willing and able to meet the patient's needs as recommended by the inter-professional team: Yes Name of Caregiver: Ir[facility] Transport at Discharge: Transportation Arrangements: Ambulance Transportation Agency and Phone #:: [facility] ( [facility] ) [phone] / [phone] Needs Prior to Discharge: Needs Prior to Discharge: To Be Determined;OT/PT Evaluation;Precertification;Discha rge Transportation Post-Acute Discharge Plan: Patient is a 74-year old male s/p fall on 05/18/24 (Trauma II) Patient came from [facility]. Patient at first was not agreeable to return but after talking with his daughter he is agreeable to go back. Patient lives there on the memory care unit and the plan is for patient to move there herb counselor as well. Per daughter, irmapascual colindres takes great care of her mother so she doesn't want to have to move her again to be with patient somewhere else. CM to send return referral to SNF and per team is ok to get precert initiated as well. CM will continue to follow and arrange transport at ok. Of note, previous to [facility] patient was at [facility]. Prior to previous hospital admission, patient lived with his daughter. She lives in an apartment that has steps so she doesn't think its safe for him to live there anymore. SIGNATURE: Lolis Peñaloza RN PATIENT NAME: Jonathon Perales DATE: May 19, 2024 TIME: 11:23 AM CONTACT #: [id number] [facility] 05-19-2024 Note HNO ID: [id number] Author: TANYA MORALES APRN.CNP Service: General Surgery Author Type: Nurse Practitioner Type: Progress Notes Filed: 05/19/2024 09:31 Note Text: Trauma Surgery Progress Note SERVICE DATE: 05/19/2024 Trauma Service Pager: For questions or concerns Mon-Fri 6a-5p please page [phone]. After 5pm and on Weekends and Holidays, please page [phone] if in ICU or [phone] if on RNF. SUBJECTIVE: Stroke alert called [...] Therapy: Room Air IANDO: Date 05/18/24699 - 05/19/24 0605/19/24699 - 05/20/24 0659 Shift 2039-0789 5802-8003 4241-1004 24 Hour Total 8392-4698 4948-1779 2170-8427 24 Hour Total INTAKE PO 120 120 [...] team believed hi (more content not included)... [facility] 05-19-2024 Note HNO ID: [id number] Author: ARIELLE RUIZ DO Service: Hospital Medicine Author Type: Physician Type: Progress Notes Filed: 05/19/2024 14:09 Note Text: DEPARTMENT OF HOSPITAL MEDICINE CONSULT PROGRESS NOTE Hospital Medicine/Primary Attending: Arielle Ruiz DO NIGHT AND WEEKEND COVERAGE: After 7pm please page [phone] SUBJECTIVE: Pt seen and examined. Patient in [...] stroke, hypertension, dysphagia, CKD who presented from [facility] with fall. He is found to have [...] for now Recent right MCA stroke S/p marjorie MCGREGOR (more content not included)... [facility] 05-19-2024 Note Patient Outreach (AG ACM) JONATHON PERALES ([id number]) 1950 [facility] Date Time Provider Department 05/19/24 FARIHA TURPIN [facility] During your visit today, we recorded the following information about you: Fariha Turpin RN 05/19/2024 3:19 PM Signed [facility] Transitional Care Management (TCM) Inpatient Patient Visit/Outreach Provider Action/FYI Plan SNF at discharge. Spouse lives in memory care, patient may stay at SNF herb counselor. Patient Admitted To [facility] on 05/18/24 Patient admitted for fall, stroke [...] Card, Transitional Care Management Card, eClarity Flyer, PARMJIT RN business Card, yes Patient educated on [...] discharge summary again once they are home. [facility] If Yes, Confirm demographics, where patient will reside at discharge. PARMJIT RN to do referral upon discharge. We have your contact number as [phone] , is this the best number to contact you? Yes Address: [address] [place] [address] [place] [address] , is this where you will be staying after discharge? Yes Do you give us permission to speak to anyone else if you are unavailable to speak to us? Yes - name Lindsay Perales , relationship daughter and contact number [phone] Fariha Turpin RN May 19, 2024 3:16 PM Allergies As of Date: 05/19/2024 Noted Allergy Reaction PERCOCET (OXYCODONE-ACETAMINOPHEN) 8 1 - Mental Status Change Comments: HALLUCINATIONS Date Reviewed: 05/18/2024 Reviewed by: Jared Almazan RN - Fully Assessed Reason for Visit: [...] RELIEF) 50 mcg/actuation nasal spray Use 1 Providence in each nostril once daily. - meclizine (ANTIVERT) 25 mg tab TAKE (more content not included)... [facility] 05-18-2024 Note HNO ID: [id number] Author: VIDA GOLD MD Service: ? Author Type: Physician Type: Progress Notes Filed: 05/18/2024 10:07 Note Text: TELESTROKE DOCUMENTATION Name: Jonathon Perales : 1950 Referring Site: [facility] Referring Provider: Obdulia Last Known Well (Date/Time): 05/18/24 0715 Neurologist Callback (Date/Time): 05/18/24 0837 Chief Complaint: left suded weakness HPI: 74 year old male,74-year-old male with recent right MCA infarct; right ICA stent few weeks ago-----is currently at a assisted, had a witnessed mechanical fall at 7:15 [...] a telestroke. Thank you for contacting the [facility]. I appreciate the opportunity for allowing me to participate in Jonathon Perales's care. Please feel free to contact me and/or the [facility] at any time if you have any further questions or need additional assistance. Vida Gold MD May 18, 2024 10:07 AM [facility] 05-18-2024 History of Present illness Narrative TELESTROKE DOCUMENTATION Name: Jonathon Perales : 1950 Referring Site: [facility] Referring Provider: Obdulia Last Known Well (Date/Time): 05/18/24714 Neurologist Callback (Date/Time): 05/18/24 0837 Chief Complaint: left suded weakness HPI: 74 year old male,74-year-old male with recent right MCA infarct; right ICA stent few weeks ago-----is currently at a assisted, had a witnessed mechanical fall at 7:15 [...] a telestroke. Thank you for contacting the [facility]. I appreciate the opportunity for allowing me to participate in Jonathon Perales's care. Please feel free to contact me and/or the [facility] at any time if you have any further questions or need additional assistance. Vida Gold MD May 18, 2024 10:07 AM documented in this encounter [facility] 05-18-2024 Note HNO ID: [id number] Author: MARIA ISABEL PISANO RN Service: ? Author Type: Registered Nurse Type: Progress Notes Filed: 05/18/2024 07:02 Note Text: TRANSITION CARE MANAGEMENT (TCM) DISCHARGE TO POST ACUTE FACILITY POST ACUTE TRANSFER SUMMARY: -Pt discharged from [facility] on 05/15/2024. -Post Acute Facility Admitted to [facility] -Admitted for: Cerebrovascular Accident Office PCC will follow at discharge. Maria Isabel Pisano RN May 18, 2024 [facility] 05-18-2024 History of Present illness Narrative TRANSITION CARE MANAGEMENT (TCM) DISCHARGE TO POST ACUTE FACILITY POST ACUTE TRANSFER SUMMARY: -Pt discharged from [facility] on 05/15/2024. -Post Acute Facility Admitted to [facility] -Admitted for: Cerebrovascular Accident Office PCC will follow at discharge. Maria Isabel Pisano RN May 18, 2024 documented in this encounter [facility] 05-18-2024 Note Patient Outreach (AG ACM) JONATHON PERALES ([id number]) 1950 [facility] Date Time Provider Department 05/18/24 MARIA ISABEL PISANO [facility] During your visit today, we recorded the following information about you: Maria Isabel Pisano RN 05/18/2024 7:02 AM Signed TRANSITION CARE MANAGEMENT (TCM) DISCHARGE TO POST ACUTE FACILITY POST ACUTE TRANSFER SUMMARY: -Pt discharged from [facility] on 05/15/2024. -Post Acute Facility Admitted to [facility] -Admitted for: Cerebrovascular Accident Office PCC will follow at discharge. Maria Isabel Pisano RN May 18, 2024 Allergies As of Date: 05/18/2024 Noted Allergy Reaction PERCOCET (OXYCODONE-ACETAMINOPHEN) 8 1 - Mental Status Change Comments: HALLUCINATIONS Date Reviewed: 04/27/2024 Reviewed by: Citlalli Mead RN - Fully Assessed Reason for Visit: Transition Of Care [4074] Cmt: Discharged from [facility] to [facility] Prescriptions as of 05/18/2024 - atorvastatin [...] RELIEF) 50 mcg/actuation nasal spray Use 1 Providence in each nostril once daily. - meclizine [...] 05/18/2024 Noted Resolved Coronary artery disease involving [place] reyna*12/18/2016 S/P AVR (aortic valve replacement) [Z95.2] [...] T7 vertebr*01/05/2021 PAD (more content not included)... [facility] 05-14-2024 Note HNO ID: [id number] Author: EDNA PEREZ RN Service: ? Author [...] OTHER FINDINGS/SUMMARY: Dr. Giorgio Fernandez/PCP is with [facility]. Patient Attributed To: [place]/[facility] Payer: Deidra BERMUDEZ Action Taken: Other: Patient is incorrectly attributed and payor will be notified for correction. Contact made with patient: No, Chart review only. Signature: Edna Perez RN [facility] 05-14-2024 History of Present illness Narrative ACM HEAVEN RN Patient identified by name and date of . Reason for review or outreach: Chart Review [facility] Utilization REQUESTED ACTION/FYI: None Utilization in past 6 months: Not applicable ED DIAGNOSES/REASON(S) FOR ED USE: Not applicable OTHER FINDINGS/SUMMARY: Dr. Giorgio Fernandez/PCP is with [facility]. Patient Attributed To: [place]/[facility] Payer: [employer] [place] Action Taken: Other: Patient is incorrectly attributed and payor will be notified for correction. Contact made with patient: No, Chart review only. Signature: Edna Perez RN documented in this encounter [facility] 05-14-2024 Note Patient Outreach (AM [facility]) JONATHON PERALES ([id number]) 1950 [facility] Date Time Provider Department 05/14/24 EDNA PEREZ [facility] During your visit today, we recorded the following information about you: Edna Perez RN 05/14/2024 10:40 AM Signed M HEAVEN RN Patient identified by name and date of . Reason for review or outreach: Chart Review [facility] Utilization REQUESTED ACTION/FYI: None Utilization in past 6 months: Not applicable ED DIAGNOSES/REASON(S) FOR ED USE: Not applicable OTHER FINDINGS/SUMMARY: Dr. Giorgio Fernandez/PCP is with [facility]. Patient Attributed To: [place]/[facility] Payer: [employer] [place] Action Taken: Other: Patient is incorrectly attributed and payor will be notified for correction. Contact made with patient: No, Chart review only. Signature: Edna Perez RN Allergies As of Date: 05/14/2024 Noted Allergy Reaction PERCOCET (OXYCODONE-ACETAMINOPHEN) 8 1 - Mental Status Change Comments: HALLUCINATIONS Date Reviewed: 04/27/2024 Reviewed by: Citlalli Mead RN - Fully Assessed Reason for Visit: ACM HEAVEN RN [3161] Cmt: ED Utilization Review per request of [...] RELIEF) 50 mcg/actuation nasal spray Use 1 Providence in each nostril once daily. 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 (more content not included)... [facility] 05-01-2024 History of Present illness Narrative TRANSITION CARE MANAGEMENT (TCM) DISCHARGE TO POST ACUTE FACILITY POST ACUTE TRANSFER SUMMARY: -Pt discharged from [facility] on 04/30/2024. -Post Acute Facility Admitted to [facility] -Admitted for: Acute ischemic right MCA stroke (HCC) Office PCC will follow at discharge. Maria Isabel Pisano RN May 01, 2024 documented in this encounter [facility] 04-28-2024 Note HNO ID: [id number] Author: MILTON BELLA MD Service: Hospital Medicine Author Type: Physician Type: Progress Notes Filed: 04/28/2024 14:46 Note Text: DEPARTMENT OF HOSPITAL MEDICINE Hospital Medicine/Primary Attending: Milton Bella MD NIGHT AND WEEKEND COVERAGE: After 7pm please page [phone] Subjective: Seen and examined at bedside. Patient [...] today's visit: Lab data: CBC: Recent Labs 04/28/24 0359 04/23/24 0533 04/22/24 0430 WBC 13.12* 10.73 9.80 HB 15.6 13.3 12.8* HCT 45.4 38.7* 37.5* PLT 554* 444* 380 MCV 101.1* 101.3* 101.9* RDWCV 12.2 11.7 11.9 COAG: No results for input(s): "APTT", "INR" in the last 168 hours. BMP: Recent Labs 04/28/24 0359 04/27/24 0543 04/26/24 0551 04/25/24 0446 04/24/24 [...] 1.05 0.98 1.03 1.03 CHEM: Recent Labs 04/28/24 0359 04/27/24 0543 04/26/24 0551 04/25/24 0446 04/24/24 [...] He was extubated 04/20 and transferred to [facility] 04/21. Failed swallow eval and MBSS initially, and was started on Corpak and tube feeds. Repeat ST eval and MBSS done on 04/27 and recommending pureed diet with nectar thick liquids and meds crushed in puree. Diet advanced and Corpak removed. PT OT recommending acute rehab, patient is pending p (more content not included)... [facility] 04-27-2024 Note HNO ID: [id number] Author: MILTON BELLA MD Service: Hospital Medicine Author Type: Physician Type: Progress Notes Filed: 04/27/2024 15:08 Note Text: DEPARTMENT OF HOSPITAL MEDICINE Hospital Medicine/Primary Attending: Milton Bella MD NIGHT AND WEEKEND COVERAGE: After 7pm please page [phone] Subjective: Seen and examined at bedside. Patient [...] CBC: Recent Labs 04/23/24 0533 04/22/24 04304/21/24 0413 WBC 10.73 9.80 10.81 HB 13.3 12.8* [...] He was extubated 04/20 and transferred to [facility] 04/21. Failed swallow eval and MBSS, now [...] monitor respiratory statu (more content not included)... [facility] 04-26-2024 Note HNO ID: [id number] Author: MILTON BELLA MD Service: Hospital Medicine Author Type: Physician Type: Progress Notes Filed: 04/26/2024 14:27 Note Text: DEPARTMENT OF HOSPITAL MEDICINE Hospital Medicine/Primary Attending: Milton Bella MD NIGHT AND WEEKEND COVERAGE: After 7pm please page [phone] Subjective: Seen and examined at bedside. Patient [...] 0533 04/22/24 0430 04/21/24 0413 04/20/24 0344 GLUC 129* 104* 134* 122* 92 [...] He was extubated 04/20 and transferred to [facility] 04/21. Failed swallow eval and MBSS, now [...] monitor respiratory s (more content not included)... [facility] 04-26-2024 Note HNO ID: [id number] Author: NOTE, INTERFACE, ? Service: ? Author Type: ? Type: Progress Notes Filed: 04/26/2024 02:42 Note Text: Epic Scheduled Downtime: 04/26/2024 1:00:00 AM to 04/26/2024 2:26:00 AM [facility] 04-25-2024 Note HNO ID: [id number] Author: MILTON BELLA MD Service: Hospital Medicine Author Type: Physician Type: Progress Notes Filed: 04/25/2024 12:55 Note Text: DEPARTMENT OF HOSPITAL MEDICINE Hospital Medicine/Primary Attending: Milton Bella MD NIGHT AND WEEKEND COVERAGE: After 7pm please page [phone] Subjective: Seen and examined at bedside. Patient [...] He was extubated 04/20 and transferred to [facility] 04/21. Failed swallow eval and MBSS, now with Corpak and tube feeds. #acute right MCA stroke -On stroke protocol, monitor neurochecks, monitor on telemetry -Continue DAPT, Lipitor 80 mg daily -Neurology following, appreciate input -PT OT ST consulted, cortrak in place, recommending acute rehab #Hypertension, hyperlipidemia -On labetalol as needed, statin. Mon (more content not included)... [facility] 04-25-2024 Note HNO ID: [id number] Author: NOTE, INTERFACE, ? Service: ? Author Type: ? Type: Progress Notes Filed: 04/25/2024 03:29 Note Text: Epic Scheduled Downtime: 04/25/2024 1:00:00 AM to 04/25/2024 3:02:00 AM [facility] 04-24-2024 Note HNO ID: [id number] Author: MILTON BELLA MD Service: Hospital Medicine Author Type: Physician Type: Progress Notes Filed: 04/24/2024 13:52 Note Text: DEPARTMENT OF HOSPITAL MEDICINE Hospital Medicine/Primary Attending: Milton Bella MD NIGHT AND WEEKEND COVERAGE: After 7pm please page [phone] Subjective: Seen and examined at bedside. Patient [...] 04/24/24 0501 04/23/24 0533 04/22/24 0430 04/21/24 04104/20/2434304/19/2434104/18/24 0346 CA 9.8 10.1 9.8 9.4 9.1 [...] He was extubated 04/20 and transferred to [facility] 04/21. Failed swallow eval and MBSS, now [...] #Dysphagia -Likely second (more content not included)... [facility] 04-23-2024 Note HNO ID: [id number] Author: MILTON BELLA MD Service: Hospital Medicine Author Type: Physician Type: Progress Notes Filed: 04/23/2024 12:20 Note Text: DEPARTMENT OF HOSPITAL MEDICINE Hospital Medicine/Primary Attending: Milton Bella MD NIGHT AND WEEKEND COVERAGE: After 7pm please page [phone] Subjective: Seen and examined at bedside. Patient [...] the last 168 hours. BMP: Recent Labs 04/23/24 0533 04/22/24 0430 04/21/24 0413 04/20/24 0344 04/19/24 0342 04/18/24 0346 04/17/24 0332 GLUC 122* 92 78 126* 125* [...] 0344 04/19/24 0342 04/18/24 0346 04/17/24 0332 CA 10.1 9.8 9.4 9.1 9.1 [...] He was extubated 04/20 and transferred to [facility] 04/21. Failed swallow eval and MBSS, now [...] monitor respiratory sta (more content not included)... [facility] 04-22-2024 Note HNO ID: [id number] Author: MILTON BELLA MD Service: Hospital Medicine Author Type: Physician Type: Progress Notes Filed: 04/22/2024 16:15 Note Text: DEPARTMENT OF HOSPITAL MEDICINE Hospital Medicine/Primary Attending: Milton Bella MD NIGHT AND WEEKEND COVERAGE: After 7pm please page [phone] Subjective: Seen and examined at bedside. Patient [...] 04/21/24 0413 04/20/24 0344 04/19/24 0342 04/18/24 03404/17/24 0332 04/16/24 1323 04/16/2451604/15/242122 WBC 9.80 10.81 7.59 7.80 7.75 8.05 [...] -- -- -- 0.0 COAG: Recent Labs 04/15/242131 INR 0.9 BMP: Recent Labs 04/22/24 0430 04/21/24 0413 04/20/24 03404/19/24 03404/18/24 03404/17/24 0332 04/16/24 0504/15/242122 GLUC 92 78 126* 125* 128* 98 [...] 1.70* CHEM: Recent Labs 04/22/24 0430 04/21/24 0413 04/20/24 0344 04/19/24 0342 04/18/24 0346 04/17/24 0332 04/16/24 0517 04/15/243 ALB -- -- -- -- -- -- [...] presents with s (more content not included)... [facility] 04-22-2024 Note HNO ID: [id number] Author: SATYA MARCELINO LSW Service: Care Management Author Type: Barking Machine Feeder Type: Care Mgt Progress Note Filed: 04/22/2024 09:33 Note Text: CARE MANAGEMENT PROGRESS NOTE SERVICE DATE: 04/22/2024 SERVICE TIME: 9:31 AM LOS: 6 days [place] of Choice Given: Yes Level of Care Discussed: Inpatient Rehab Facility Financial Disclosure Provided: Yes Financial Disclosure Comments: Disclosed [facility] affiliation Provider List: Rehab Facility (Verballly discussed [facility] options) SW called pt's daughter, Lindsay to discuss PT/OT evals. PT/OT recommending [facility]. Lindsay is agreeable. SW tasked referrals to [facility] and [facility]. SIGNATURE: AMANDA Martinez PATIENT NAME: Jonathon Perales DATE: April 22, 2024 TIME: 9:31 AM PAGER/CONTACT #: [phone] [facility] 04-22-2024 Note HNO ID: [id number] Author: DEBRA MCMILLAN PA-C Service: Neurology ICU Author Type: Physician Inventory Audit Clerk Type: Procedures Filed: 04/22/2024 05:52 Note Text: BEDSIDE PROCEDURE NOTE FEEDING TUBE Date/Start Time: 04/22/2024 5:30 AM Date/Stop Time: 04/22/2024 5:45 AM Performed by: Debra Mcmillan PA-C Authorized by: Debra Mcmillan PA-C Where was Patient When this Procedure was Performed Bedside/Unscheduled Procedure Room Informed Consent Consent Obtained: N/A Vanduser Protocol A moment to CARE was completed. [...] DATE: April 22, 2024 TIME: 5:50 AM [facility] 04-21-2024 Note HNO ID: [id number] Author: LORETA JAIMES APRN.CNP Service: Neurology ICU Author Type: Nurse Practitioner Type: Procedures Filed: 04/21/2024 15:47 Note Text: BEDSIDE PROCEDURE NOTE FEEDING TUBE Date/Start Time: 04/21/2024 3:46 PM Date/Stop Time: Performed by: Loreta Jaimes APRN.[employer] Authorized by: Loreta Jaimes APRN.CNP Where was Patient When this Procedure was Performed Bedside/Unscheduled Procedure Room Informed Consent Consent Obtained: N/A Vanduser Protocol A moment to CARE was completed. [...] April 21, 2024 TIME: 3:46 PM 1005 [facility] 04-21-2024 Note HNO ID: [id number] Author: SATYA MARCELINO LSW Service: Care Management Author Type: Barking Machine Feeder Type: Care Mgt Progress Note Filed: 04/21/2024 [...] 21, 2024 TIME: 2:59 PM PAGER/CONTACT #: [phone] [facility] 04-21-2024 Note HNO ID: [id number] Author: MONIK CALDWELL APRN.CNP Service: Neurology ICU [...] melatonin add for tonight. Likely transfer to [facility] today. Events Since Last Note: As above [...] Forearm 18 Gauge 5 days Peripheral 04/19/241950 [facility] Left Arm 20 Gauge 1 day [...] Is Patient Clinically Ready to Transfer to [facility] or SDU?: No Discharge Planning: To be [...] his who is admitted to the hospital. [facility] 04/15. iNIHSS 23. CT early ischemia in R insula. 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 TNK given at 2158. Pt s/p EVT tici [address] Cantor. Pt remains intubated post procedure. Aggrastat gtt per Dr Cantor. Pt admitted to NSICU for further management. Active Hospital Problems as of 04/21/2024 Noted - Resolved POA Hospital * (Principal) Acute ischemic right MCA stroke (HCC) 04/16/2024 - Present Yes Current Assessment AND Plan P/w left hemiplegia, aphasia, and decreased sensation [facility] 04/[address] early ischemia in [...] droop due to (more content not included)... [facility] 04-20-2024 Note HNO ID: [id number] Author: SATYA MARCELINO LSW Service: Care Management Author Type: Barking Machine Feeder Type: Care Mgt Progress Note Filed: 04/20/2024 [...] 20, 2024 TIME: 2:35 PM PAGER/CONTACT #: [phone] [facility] 04-20-2024 Note HNO ID: [id number] Author: LORETA JAIMES APRN.[employer] Service: Neurology ICU Author Type: Nurse Practitioner [...] Forearm 18 Gauge 4 days Peripheral 04/19/241950 [facility] Left Arm 20 Gauge <1 day [...] Is Patient Clinically Ready to Transfer to RNF or SDU?: No Discharge Planning: To be [...] his who is admitted to the hospital. [facility] 04/15. iNIHSS 23. CT early ischemia in R insula. 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 TNK given at 2158. Pt s/p EVT tici [address] Cantor. Pt remains intubated post procedure. Aggrastat gtt per Dr Cantor. Pt admitted to NSICU for further management. Active Hospital Problems as of 04/20/2024 Noted - Resolved PO Hospital * (Principal) Acute ischemic right MCA stroke (HCC) 04/16/2024 - Present Yes Current Assessment AND Plan P/w left hemiplegia, aphasia, and decreased sensation [facility] 04/[address] early ischemia in [...] - WTE - PPI, peridex Left hemiplegia ([facility]) 04/16/2024 - Present Yes Facial droop due to acute cerebrovascular accident (CVA) ([facility]) ([facility]) 04/16/2024 (more content not included)... [facility] 04-19-2024 Note HNO ID: [id number] Author: JEANNETTE NAIDU MD Service: Neurology ICU [...] 3 days Drain Duration GI/ Feeding 04/16/24 [facility] Gastric Mouth 3 days External Collection [...] Is Patient Clinically Ready to Transfer to [facility] or SDU?: No Discharge Planning: To be [...] Problems as of 04/19/2024 Noted - Resolved [facility] * (Principal) Acute ischemic right MCA stroke (HCC) 04/16/2024 - Present Yes Current Assessment AND Plan P/w left hemiplegia, aphasia, and decreased sensation [facility] 04/[address] early ischemia in [...] AND Plan P (more content not included)... [facility] 04-18-2024 Note HNO ID: [id number] Author: JEANNETTE NAIDU MD Service: Neurology ICU [...] 2 days Drain Duration GI/ Feeding 04/16/24 [facility] Gastric Mouth 2 days External Collection [...] Is Patient Clinically Ready to Transfer to [facility] or SDU?: No Discharge Planning: To be [...] 5,000 Units in (more content not included)... [facility] 04-17-2024 Note HNO ID: [id number] Author: MONIK CALDWELL APRN.SALES EXECUTIVE INSURANCE Service: Neurology ICU Author Type: Nurse Practitioner [...] Will continue to monitor patient. Monik Caldwell APRN.[employer]AL[employer] EXECUTIVE INSURANCE Pager [phone] [facility] 04-17-2024 Note HNO ID: [id number] Author: SATYA MARCELINO LSW Service: Care Management Author Type: Barking Machine Feeder Type: Care Mgt Initial Assessment Filed: 04/17/2024 15:47 Note Text: CARE MANAGEMENT: ASSESSMENT AND DISCHARGE PLAN SERVICE DATE: April 17, 2024 SERVICE TIME: 3:36 PM PCP: Giorgio Fernandez DO Primary Contact: Extended Emergency Contact Information Primary Emergency Contact: Lindsay Perales Mobile Relation: Daughter Admission Status: Inpatient Insurance [facility] Discharge Planning requested by: Per Department Practice Potential Transition Plans To Be Determined Advance Directives Current Advance Directive: None Proof Operator Attempted to Assist with AD Completion: No Unable to Assist Due To:: Coma Current Living Arrangements and Support Lives with: Children Type of Residence: Private Residence (Apartment or Condo) Support: Children How do you manage to accomplish the following: Independent: Ambulation;Bathe/Shower;Dress;Meal s/Meal Prep;Going to the bathroom;Medication Management;Transportation to appointments/community Current Services/Equipment Current Post-Acute Service(s): None Discharge Planning Patient Goal(s): Better mobility, General wellness [place] of Choice Explained: [place] of Choice Given: No Reason Not Given: [...] 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 Pt will need PT/OT once able to participate. Of note, pt's is currently admitted to the hospital. She is from [facility]. +PCP, +Rx at [facility]. SIGNATURE: AMANDA Martinez PATIENT NAME: Jonathon Perales DATE: April 17, 2024 TIME: 3:35 PM CONTACT #: [phone] [facility] 04-17-2024 Note HNO ID: [id number] Author: JOANIE LARSON APRN.SALES EXECUTIVE INSURANCE Service: Neurology ICU Author Type: Nurse Practitioner [...] 18 Gauge 1 day Peripheral 04/16/24 0100 [facility] Short Left Hand 22 Gauge 1 day Drain Duration GI/ Feeding 04/16/24 [facility] Gastric Mouth 1 day External Collection [...] Is Patient Clinically Ready to Transfer to RNF or SDU?: No Discharge Planning: To be [...] his who is admitted to the hospital. [facility] 04/15. iNIHSS 23. CT early ischemia in R insula. 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 TNK given at 2157. Pt s/p EVT tici [address] Cantor. Pt remains intubated post procedure. Aggrastat gtt per Dr Cantor. Pt admitted to NSICU for further management. Neurology * Acute ischemic right MCA stroke (HCC)- (present on admission) P/w left hemiplegia, aphasia, and decreased sensation [facility] 04/[address] early ischemia in [...] (PLAVIX) 75 mg PO/FT DAILY Given, 04/17 0833 04/16/24 1155 -- 04/17/24 0900 asp (more content not included)... [facility] 04-16-2024 Note HNO ID: [id number] Author: MENA HARTMAN RPh Service: Pharmacy Author Type: Pharmacist Type: Plan of Care Filed: 04/28/2024 08:49 Note Text: PHARMACY MEDICATION REVIEW Patient Name: Jonathon Perales : 1950 The following medications were updated within the BOWLING BALL FINISHER medication list: Medications ADDED to BOWLING BALL FINISHER medication list clopidogrel (PLAVIX) 75 mg tablet [...] by mouth once daily. Medications CHANGED on BOWLING BALL FINISHER medication list Medications REMOVED from BOWLING BALL FINISHER medication list Additional comments: Verified medication information with e-scripts/dispense report and chart review. Called [facility] to confirm medications. Confirmed medications with family and prescription bottles. Family and prescription stated patient taking Plavix, Zetia, lisinopril, Claritin, metoprolol tart, pantoprazole, prednisone, Effexor, aspirin, Vit D, and Vit B12 - added to med list. Family stated patient not taking Sinemet - Called [facility] has not been filled since 08/05/2023 for 90 day. [facility] confirmed atorvastatin and Wellbutrin have not been fill since 08/31/2023. Patient on 4 day short course of prednisone cutting 50 mg in half started 04/15/2024 (family stated took whole 50 mg by mistake). Required follow up actions for nursing: None The below information represents the best possible medication history: Yes Medication history completed by: Real Estate Operations Manager: Christine Do (Railroad Operator) Source of history: Family: Reliability of source: Appears reliable, clearly identified: Medication name, Medication dose, Medication route, and Medication frequency and Spoke with daughterLindsay [phone] , Pharmacy records: e-scripts/dispense report, [facility] [phone] AND [phone] Prescription bottles, and [facility] records Medication nonadherence identified: No barriers noted Reconciliation completed: Yes Completed by: Mena Hartman, ClarisaD, [facility] Nursing Unit Based Pharmacist Ext: [phone] All BOWLING BALL FINISHER medications addressed by LIP and Medications intentionally held at admission: all prior to admission medications held - ordered correctly inpatient Patient interested in Bedside Delivery Services or using OP Pharmacy at discharge? Unable to assess Preferred outpatient pharmacy: [id number] [place] [address] [address] [facility] [phone] Allergies: Percocet [Oxycodone* Mental Status Change [...] at bedtime Facility-Administered Medications: None Christine Do (Railroad Operator)[id number] 04/16/2024 I have reviewed and agree with the medication history note completed by the medication historian as documented above. All medications reviewed and reconciled appropriately. Mena Hartman, ClarisaD, [facility] Nursing Unit Based Pharmacist Ext: [phone] [facility] 04-16-2024 Note HNO ID: [id number] Author: RADHA MALHOTRA MD Service: ? Author Type: Fellow Type: Progress Notes Filed: 04/15/2024 22:34 Note Text: TELESTROKE DOCUMENTATION Name: Jonathon Perales : 1950 Referring Site: [facility] Referring Provider: ED staff Last Known Well (Date/Time): 04/15/241929 Neurologist Callback (Date/Time): 04/15/242118 Chief Complaint: R MCA syndrome HPI: 73 year old male,with hx of prosthetic valve, no AC, on DAPT, good baseline, visited hospitalized at [place] today, sudden collapse with left sided weakness. PUDDLER PILE DRIVING today [address]. NIH[address] 23[address] early ischemia [...] a telestroke. Thank you for contacting the [facility]. I appreciate the opportunity for allowing me to participate in Jonathon Perales's care. Please feel free to contact me and/or the [facility] at any time if you have any further questions or need additional assistance. Radha Malhotra MD April 15, 2024 10:31 PM [facility] 04-15-2024 Note HNO ID: [id number] Author: JOSE HOOPER APRN.CARPET CLEANER Service: Anesthesiology Author Type: Nurse Social Work Therapist Type: Anesthesia Procedure Notes Filed: 04/15/2024 22:59 Note Text: ANESTHESIOLOGY PROCEDURE NOTE Airway General Information Procedure Start Time/Medication Administration: 04/15/2024 10:45 PM Procedure End Time: 04/15/2024 10:48 PM Patient location during procedure: OR Timeout Performed Pre-procedure: timeout performed Consent Obtained: Yes Patient identity confirmed: arm band Staffing CARPET CLEANER: Jose Hooper APRN.CARPET CLEANER Performed by: CARPET CLEANER Indications and Patient Condition Indications for airway [...] neck in neutral position SIGNATURE: Jose Hooper APRN.CRNA PATIENT NAME: Jonathon Perales DATE: April 15, 2024 TIME: 10:56 PM CSN: [id number] [facility] 04-15-2024 Note HNO ID: [id number] Author: RADHA MALHOTRA MD Service: ? Author Type: Fellow Type: Progress Notes Filed: 04/15/2024 22:34 Note Text: TELESTROKE DOCUMENTATION Name: Jonathon Perales : 1950 Referring Site: [facility] Referring Provider: ED staff Last Known Well (Date/Time): 04/15/241929 Neurologist Callback (Date/Time): 04/15/242118 Chief Complaint: R MCA syndrome HPI: 73 year old male,with hx of prosthetic valve, no AC, on DAPT, good baseline, visited hospitalized at [place] today, sudden collapse with left sided weakness. PUDDLER PILE DRIVING today [address]. NIH[address] 23[address] CT early ischemia in R insula. 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 TNK given at 2158. EVT planned by Dr. Cantor. Patient was [...] a telestroke. Thank you for contacting the [facility]. I appreciate the opportunity for allowing me to participate in Jonathon Perales's care. Please feel free to contact me and/or the [facility] at any time if you have any further questions or need additional assistance. Radha Malhotra MD April 15, 2024 10:31 PM [facility] 04-15-2024 History of Present illness Narrative TELESTROKE DOCUMENTATION Name: Jonathon Perales : 1950 Referring Site: [facility] Referring Provider: ED staff Last Known Well (Date/Time): 04/15/241929 Neurologist Callback (Date/Time): 04/15/242118 Chief Complaint: R MCA syndrome HPI: 73 year old male,with hx of prosthetic valve, no AC, on DAPT, good baseline, visited hospitalized at [place] today, sudden collapse with left sided weakness. PUDDLER PILE DRIVING today [address]. NIH[address] 23[address] early ischemia [...] a telestroke. Thank you for contacting the [facility]. I appreciate the opportunity for allowing me to participate in Jonathon Perales's care. Please feel free to contact me and/or the [facility] at any time if you have any further questions or need additional assistance. Radha Malhotra MD April 15, 2024 10:31 PM documented in this encounter [facility] 04-15-2024 Note HNO ID: [id number] Author: RAMIREZ CANTOR MD Service: Neuroendovascular Intervention [...] MD. Neuro Interventional Surgery April 15, 2024 [facility] 04-15-2024 History of Present illness Narrative ED Follow Up: Patient discharged from [facility] ED on 04/14/24. Left message for patient to call office to schedule ed follow up appointment. Tanya Whiting LPN documented in this encounter [facility] 04-14-2024 Note 1. Moderate degenera tive [...] Electronically Signed Date/Time: 04/14/2024 12:49 AM EDT [facility] 04-14-2024 Note 1. Moderate degenera tive changes [...] Electronically Signed Date/Time: 04/14/2024 12:49 AM EDT [facility] 04-13-2024 Hospital Discharge instructions Russ Castro [...] cannot be sent through Care Everywhere.[facility] ED (Austrian)Low Back Pain Discharge Instructions (Austrian)documented in this encounter [facility] 04-13-2024 Emergency department Note Emergency Department Encounter [facility] EMERGENCY DEPT Patient: Jonathon Perales : 1950 [...] but pain worsened today. 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 HPI: Jonathon Perales is [...] flexion [intact bilaterally] Wrist extension [intact bilaterally] Counter Former strength [intact bilaterally] Finger abduction [intact bilaterally] MEDICAL DECISION MAKING: Medications Lidocaine 4 % patch 1 patch (1 patch TransDERmal Medication Applied 04/13/24 4570) predniSONE (Deltasone) tablet 50 mg (50 mg Oral Given 04/13/24 9249) ketorolac (Toradol) injection 15 mg (15 mg IntraMUSCular Given 04/13/24 7391) Jonathon Perales is a 73 y.o. male [...] for clarification. Russ Castro MD Acute Care [facility] Russ Castro MD 04/14/24 0218 documented in this encounter [facility] 04-13-2024 Physician Emergency department Note Emergency Department Encounter [facility] Patient: Jonathon Perales : 1950 [...] but pain worsened today. 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 HPI: Jonathon Perales is [...] flexion [intact bilaterally] Wrist extension [intact bilaterally] Counter Former strength [intact bilaterally] Finger abduction [intact bilaterally] [...] for clarification. Russ Castro MD Acute Care [facility] Russ Castro MD 04/14/24217 [facility] 04-10-2024 Telephone encounter Note Reason for call: [...] age > 60 years Protocols used: Back [id number] [facility] 04-10-2024 Miscellaneous Notes Reason for call: [...] age > 60 years Protocols used: Back [id number]-HQ documented in this encounter [facility] 04-09-2024 Telephone encounter Note No Show [...] Paris Yu April 09, 2024 8:46 AM [facility] 04-09-2024 Miscellaneous Notes No Show Documentation Jonathon Perales no showed [...] 2024 8:46 AM documented in this encounter [facility] 03-18-2024 Telephone encounter Note Patient/Patient's Pharmacy is requesting the following refill. Patient's last appointment: 01/30/2024. Next appointment: 06/15/2024 . Requested Prescriptions Pending Prescriptions Disp Refills loratadine (CLARITIN) 10 mg tablet [Pharmacy Med Name: Loratadine Oral Tablet 10 MG] 30 tablet 0 Sig: take one tablet by mouth once a day Patient Phone numbers: [phone] (home) Request is for script(s) to be escript to pharmacy. Ayala Lofton MA [facility] 03-18-2024 Miscellaneous Notes Patient/Patient's Pharmacy is requesting the following refill. Patient's last appointment: 01/30/2024. Next appointment: 06/15/2024 . Requested Prescriptions Pending Prescriptions Disp Refills loratadine (CLARITIN) 10 mg tablet [Pharmacy Med Name: Loratadine Oral Tablet 10 MG] 30 tablet 0 Sig: take one tablet by mouth once a day Patient Phone numbers: [phone] (home) Request is for script(s) to be escript to pharmacy. Ayala Lofton MA documented in this encounter [facility] 01-30-2024 History of Present illness Narrative Images from the original note were not included. [facility] [address] [place] [address] Date of Evaluation: 01/30/2024 Patient Name: Jonathon [...] plans. This note was partially generated using Btiques voice recognition system, and there may be some incorrect words, spellings, and punctuation that were not noted in checking the note before saving. documented in this encounter [facility] 01-30-2024 Nurse Note Jonathon Perales is a 73 year old male who presents for Head Congestion, Cough, and Sinus Problem for the last 5 days. Nyquil helps a little bit. no COVID testing LARA Garciaally signed by Ayala Lofton MA at 01/30/2024 2:45 PM EDT documented in this encounter [facility] 01-15-2024 Miscellaneous Notes Patient/Patient's Pharmacy is requesting the following refill. Patient's last appointment: 12/10/2023. Next appointment: 06/15/2024 . Requested Prescriptions Pending Prescriptions Disp Refills meclizine (ANTIVERT) 25 mg tab 30 tablet 3 Patient Phone numbers: [phone] (home) Request is for script(s) to be escript to pharmacy. Ayala Lofton MA documented in this encounter [facility] 01-12-2024 Miscellaneous Notes Reason For Call: [...] want his daughter called. Conferenced call to [facility] who could not find address and conferenced call to [facility]. He was not sure of apartment complex name. They had him spell name of street and it was spelled as [place]. Patient verified address as [address] either in [place] or [place] He did not know if it was a road or drive. [facility] dispatched an ambulance to this address at [facility] and agreed to stay on the line [...] Dizziness earlier today Protocols used: Confusion - [id number] documented in this encounter [facility] 10-24-2023 Miscellaneous Notes Patient stopped in requesting that his medications be sent into [facility] in [place] on [address] . Sushila Ambrocio documented in this encounter [facility] 10-24-2023 Miscellaneous Notes Referral placed in [facility] portal to PSYCHIATRY. Confirmation number: [id number] Referral placed in [facility] portal to CARDIOLOGY . Confirmation number: [id number] Referral placed in [facility] portal to NEUROLOGY. Confirmation number: [id number] Citlalli Almeida documented in this encounter [facility] 10-24-2023 Instructions Liset Menjivar APRN.CNP - [...] script needs adjusted documented in this encounter [facility] 10-24-2023 History of Present illness Narrative Images from the original note were not included. [facility] [address] [place] [address] Date of Evaluation: 10/27/2023 Patient Name: Jonathon Perales : 1950 Chief Complaint: Patient presents with: Dizziness stomach problem Nursing Intake: Nursing Notes: ArikathyaDianna marieDEIRDRE 10/24/2023 1:02 PM Signed Patient states his [...] having depressed mood due to going to assisted. CONGESTION: started few weeks ago. Denies chest pain, SOB, [place], [place], falls, lightheadedness BLURRY VISION: started 3 [...] afternoon dose. Worsening due to being in assisted. Moved in with daughter due to having [...] TO NEUROLOGY 4. Coronary artery disease involving [place] coronary artery of [place] heart without angina pectoris - ICD9: 414.01, [...] [place]" Liset Menjivar APRN.SALES EXECUTIVE INSURANCE Return if symptoms worsen or fail to improve, for keep apt with Dr. Fernandez in November 2023. Discussed the above with the patient using shared decision making. The patient is in agreement with the diagnostic and treatment plans. documented in this encounter [facility] 10-24-2023 Nurse Note Patient states his [...] been feeling depressed. documented in this encounter [facility] 08-08-2023 History of Present illness Narrative Images from the original note were not included. Giorgio Fernandez, [facility] [address], [address] [place] [address] Date of Evaluation: 08/11/2023 Patient Name: Jonathon [...] Desk Reference: National Heart, Lung, and Blood Damar. National Institutes of Health. 2001: NIH Publication [...] 96 74 - 99 mg/dL Final The [place] Diabetes Association (ADA) provides guidance for cutoff [...] Standards of Medical Care in Diabetes 2016, [place] Diabetes Association. Diabetes Care. 2016.39(Suppl 1). BUN [...] Time: 11:03 AM documented in this encounter [facility] 08-07-2023 Miscellaneous Notes Has appt tomorrow [...] Alona Velasquez PSS documented in this encounter [facility] 08-05-2023 Miscellaneous Notes Patient/Patient's Pharmacy is requesting the following refill. Patient's last appointment: 06/17/2023. Next appointment: none . Requested Prescriptions Pending Prescriptions Disp Refills meclizine (ANTIVERT) 25 mg tab [Pharmacy Med Name: Meclizine HCl Oral Tablet 25 MG] 30 tablet 0 Sig: TAKE ONE TABLET BY MOUTH EVERY 6 HOURS NEEDED FOR DIZZINESS Patient Phone numbers: [phone] (home) Request is for script(s) to be escript to pharmacy. Ayala Lofton MA documented in this encounter [facility] 07-24-2023 Miscellaneous Notes Called and notified patient of verbal and patient voiced understanding of verbal. Sheela Vences LPN ----- Message from Cindy Ring PA-C sent at 07/24/2023 4:29 PM EDT ----- Overall patient's labs are stable, Cholesterol is improved, nothing further to be done at this time. CINDY RING PA-C documented in this encounter [facility] 07-11-2023 Miscellaneous Notes Patient/Patient's Pharmacy is requesting the following refill. Patient's last appointment: 06/17/2023. Next appointment: none . Requested Prescriptions Pending Prescriptions Disp Refills venlafaxine (EFFEXOR) 75 mg tablet [Pharmacy Med Name: Venlafaxine HCl Oral Tablet 75 MG] 270 tablet 0 Sig: TAKE ONE TABLET BY MOUTH THREE TIMES A DAY Patient Phone numbers: [phone] (home) Request is for script(s) to be escript to pharmacy. 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 Giorgio Fernandez, [facility] [address], [address] [place] [address] Date of Evaluation: 06/17/2023 Patient Name: Jonathon Pearles : 1950 Chief Complaint: Patient presents with: [...] Desk Reference: National Heart, Lung, and Blood Damar. National Institutes of Health. 2001: NIH Publication No. 01-3305. 2. An International Atherosclerosis Society position paper: global recommendations for the management of dyslipidemia: executive summary, Atherosclerosis. 2014: 232(2):410-413. Hemoglobin A1C 02/23/2023 5.6 4.3 - 5.6 % Final [place] Diabetes Association guidelines indicate that patients with HgbA1c in the range 5.7-6.4% are at increased risk for development of diabetes, and intervention by lifestyle modification may be beneficial. HgbA1c greater or equal to 6.5% is considered diagnostic of diabetes. Estimated Average Glucose 02/23/2023 114 mg/dL Final eAG: (Estimated average glucose) is a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 And Tempering Diabetes Specialist documented in this encounter [facility] 12-31-2022 Miscellaneous Notes Spoke with patient [...] Giorgio Fernandez DO documented in this encounter [facility] 12-26-2022 History of Present illness Narrative Images from the original note were not included. Giorgio Fernandez DO [facility] [address], [address] [place] [address] Date of Evaluation: 12/26/2022 Patient Name: Jonathon [...] mouth. (Patient not taking: No sig reported) Windsor-3 Fatty Acids-Vitamin E 1,000 mg cap Take [...] Desk Reference: National Heart, Lung, and Blood Damar. National Institutes of Health. 2001: NIH Publication No. 01-3305. 2. An International Atherosclerosis Society position paper: global recommendations for the management of dyslipidemia: executive summary, Atherosclerosis. 2014: 232(2):410-413. Objective 12/26/22917 BP: 116/82 Pulse: 60 Temp: 36.5 C [...] Time: 9:41 AM documented in this encounter [facility] 12-25-2022 Miscellaneous Notes Patient was called [...] requesting a call back from office at [phone] Please advise Thank you Alona EWING documented in this encounter [facility] 12-06-2022 Instructions ODALYS Crowder-Rachel - 12/06/2022 11:40 AM EST Images from [...] Control and Prevention. Norovirus Accessed 02/23/2016. National Damar of Diabetes and Digestive and Kidney Diseases Viral Gastroenteritis Accessed 02/23/2016. [place] College of Gastroenterology. Diarrheal Diseases -- Acute and Chronic Accessed 02/23/2016. Copyright 8642-1221 The [facility]. All rights reserved This information is provided by the [facility] and is not intended to replace the medical advice of your doctor or health care provider. Please consult your health care provider for advice about a specific medical condition. For additional health information, please contact the Center for Consumer Health Information at the [facility] or toll-free extension [phone]. If you prefer, you may visit [email or web address] or [email or web address]. This document was last reviewed on: 2016 index#23101 documented in this encounter [facility] 12-06-2022 Nurse Note Jonathon Perales is a 72 year old male who presents with complaint of Nausea & Vomiting (Epigastric pain; please review medications, some he is not taking but may need refills.) Kenzie Guzman LPN documented in this encounter [facility] 12-06-2022 History of Present illness Narrative Images from the original note were not included. [facility] [address] [address] Date of Evaluation: 12/06/2022 Patient Name: Jonathon [...] mouth. (Patient not taking: No sig reported) Windsor-3 Fatty Acids-Vitamin E 1,000 mg cap Take [...] and treatment plans. documented in this encounter [facility] 12-05-2022 Miscellaneous Notes Called and notified patient of verbal and patient voiced understanding of verbal. Jeanie Ricketts MA Hard to say from this message what is going on He can make appt or go to [facility] I don't have sajan treatment advice WMK [...] Jeanie Ricketts MA documented in this encounter [facility] 11-28-2022 Nurse Note Jonathon Perales is a 72 year old male who presents for Follow Up (Depression medication adjustment) Says he is just not "feeling right" feels like his medications are contributing to this. Says that caused his depression to worsen. Lack of motivation. Alberto Guillen MA documented in this encounter [facility] 11-28-2022 History of Present illness Narrative Images from the original note were not included. [facility] [address] [place] [address] Date of Evaluation: 11/28/2022 Patient Name: Jonathon [...] mcg TbER Take by mouth once daily. Windsor-3 Fatty Acids-Vitamin E 1,000 mg cap Take [...] and treatment plans. documented in this encounter [facility] 11-28-2022 Miscellaneous Notes Patient called back [...] I was given 2 phone numbers 1) [phone] 2) [phone] Please advise Thank you Alona Velasquez documented in this encounter [facility] 11-02-2022 Telephone encounter Note I spoke to the pt today. He understands that he needs to take the test. I informed him that the [facility] will reach out to him to schedule. He understands. [facility] 11-02-2022 Miscellaneous Notes I spoke to the pt today. He understands that he needs to take the test. I informed him that the [facility] will reach out to him to schedule. He understands. Please advise pt that he needs driving evaluation. If he does not want to proceed then I will need to send letter to [facility] for them to complete their evaluation. Driving eval update... I checked in with the [facility] to see if this pt had been scheduled yet. Don said she called him 11/01/2022 and he told her "he is driving and does not need the evaluation." documented in this encounter [facility] 11-02-2022 Telephone encounter Note Please advise pt that he needs driving evaluation. If he does not want to proceed then I will need to send letter to [facility] for them to complete their evaluation. [employer] [facility] Work Phone: 11-01-2022 Telephone encounter Note Driving eval update... I checked in with the [facility] to see if this pt had been scheduled yet. Don said she called him 11/01/2022 and he told her "he is driving and does not need the evaluation." [facility] 10-02-2022 History of Present illness Narrative Immunization History - influenza, high-dose, quadrivalent vaccine (FLUZONE HIGH DOSE QUADRIVALENT) (Given) - Date: 10/02/2022 - Lot #: [id number] - Dose: 0.7 mL - Site: Right deltoid - Lion Trainer: Sanofi Pasteur - Given By: TANYA RICHTER - Expiration Date: 05/17/2023 Images from the original note were not included. Giorgio Fernandez, [facility] [address], [address] [place] [address] Date of Evaluation: 10/02/2022 Patient Name: Jonathon [...] mcg TbER Take by mouth once daily. Windsor-3 Fatty Acids-Vitamin E 1,000 mg cap Take [...] 81 74 - 99 mg/dL Final The [place] Diabetes Association (ADA) provides guidance for cutoff [...] Standards of Medical Care in Diabetes 2016, [place] Diabetes Association. Diabetes Care. 2016.39(Suppl 1). BUN [...] MG TABLET 5. Coronary artery disease involving [place] heart without angina pectoris, unspecified vessel or [...] Time: 1:59 PM documented in this encounter [facility] 09-19-2022 Miscellaneous Notes Pt was brought [...] advise Svitlana Roy documented in this encounter [facility] 09-14-2022 Miscellaneous Notes Referral was submitted for patient via [facility] portal to: PSYCHIATRY Confirmation number: [id number] Rosalinda Allen documented in this encounter [facility] 09-14-2022 Instructions Yokasta SinghDO elie - 09/14/2022 1:48 PM EDT Images from [...] you are more likely to maintain them herb counselor. Try something new. There are many new [...] fitness component that helps to maintain pain-free [id number]. There are many different reasons why stretching [...] improve balance and agility. Source www.cdc.gov/ Copyright 4924-4564 The [facility]. All rights reserved This information is provided by the [facility] and is not intended to replace the medical advice of your doctor or health care provider. Please consult your health care provider for advice about a specific medical condition. For additional health information, please contact the Center for Consumer Health Information at the [facility] or toll-free extension [phone]. If you prefer, you may visit [email or web address]/ or [email or web address]. This document was last reviewed on: 2017 index#4172 documented in this encounter [facility] 09-14-2022 Nurse Note Jonathon Perales is a 72 year old male who presents for Vomiting. The patient states that he has been having vomiting since Saturday and is not sure why. He said that he is getting better since then and has been taking Pepto bismol. Tanya Richter MA documented in this encounter [facility] 09-14-2022 History of Present illness Narrative Images from the original note were not included. [facility] [address] [place] [address] Date of Evaluation: 09/14/2022 Patient Name: Jonathon [...] mcg TbER Take by mouth once daily. Windsor-3 Fatty Acids-Vitamin E 1,000 mg cap Take [...] and treatment plans. documented in this encounter [facility] 09-10-2022 Miscellaneous Notes Triaged not light headed no dizziness doesn't feel weak or faint not dehydrated Scheduled w/ shane for [id number] advised to go to ER if any [...] possible from office. Was Patient Referred to [facility]/Seek Emergency Treatment (Y/N): yes Did Patient Agree (Y/N): yes Was An Attempt Made To Transfer The Patient To The Office (Y/N): n/a Were You Able To Reach Someone At The Office (Y/N): n/a If Yes - Patient Was Transferred To (Caregivers Name): n/a If No - Which [facility] Leadership Electrical Accessories Ii Assembler Did You Speak With Regarding This Patient: n/a Was an appointment scheduled (Y/N): denied appt offered Reason patient was requesting visit (RFV/signs and symptoms/diagnosis) : possible ulcer/vomiting/est care Person calling if other than patient: Lila spouse Return call to if other than patient: Lila Spouse Best contact number: [phone] Thank you, Michelle Gilbert September 10, 2022 2:52 PM documented in this encounter [facility] 04-16-2022 History of Present illness Narrative [...] Battery, Mary Aggarwal Executive Function System (DKEFS) Revillo Making & Verbal Fluency subtests, [place] Naming Test, second edition (BNT-2), Wide Range [...] independent Pt. 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 He stated when he is being pressured he makes mistakes with pathfinding and is forgetting directions to familiar places. 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 He has had to resign this position due to his injury. Jonathon reported he did attempt to return to work a second time one or two weeks after the accident but was unsuccessful and left after four hours. When asked about treatment received related to his injury Jonathon stated he did participate in physical therapy at the [facility] through [employer]. He shared that he continues to experience [...] They continued their plans to go to [place] and after arriving at their destination Jonathon was unable to walk. His subsequently transported him to [facility] where he was diagnosed with a stroke. 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 He reported that he had participated in therapy through [facility] but stated it took him about two [...] generally good health. Jonathon grew up in [place]. His parents when he was [age] [...] support himself. He shared he graduated from [employer] but had spent his last two years of high school at [employer]. Approximately two years after graduating from high school Jonathon enlisted in the [employer] and reported he spent two years at [employer] and then received an honorable discharge. 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 Jonathon shared he has done a lot of online research to learn how to detail cars. He reported that he has been an auxiliary police specialist for the past 11 or 12 years. 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 He was recently voted as a leading officer. 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 He and Lila have been for 42 years. He reported that his first two marriages ended in divorce. Jonathon has a son and a daughter from his prior marriages. Review of Records: Review of an emergency department encounter note from [facility] Emergency department indicated that Jonathon was seen [...] discharged and instructed to follow up with [facility]. 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 However, he has yet to be able to return to this level function. His recovery from his concussion will likely require additional time given his prior neurological compromise. At the present time he does not appear to be capable of returning to operations officer trust department or flight crew time clerk employment due to his physical pain and [...] behalf of both Jonathon and his to [facility] for evaluation and recommendations. Jonathon and Lila were in agreement with this recommendation and gave consent for this director pharmacy services to make this referral on their behalf. [...] work is appreciated. Dianna Traylor, Ph.D. Neuropsychologist [place] License #[id number] Jonathon Perales data summary sheet Onofre Adult Intelligence Scale-IV Index IQ/Index [place] Interpretation Verbal Comprehension 68 2 Extremely Low Working Memory 60 0.4 Extremely Low Processing Speed 65 1 Extremely Low Subtest Scores ss [place] Interpretation S. or W. Verbal Comprehension Similarities 4 2 Extremely low Vocabulary 5 5 Borderline Information 4 2 Extremely low Perceptual Reasoning Block Design 2 0.4 Extremely low Working Memory Digit Span 3 1 Extremely low Arithmetic 3 1 Extremely low Processing Speed Symbol Search 5 3 Borderline Coding 2 1 Extremely low BNT Trial Scaled Score T score classification [place] Naming Test 5 36 Mild Impairment DKEFS Revillo Making Test Scaled Score Visual Scanning 8 [...] 1 Trial 2 documented in this encounter [facility] 11-08-2021 Hospital Discharge instructions Daisy Stinson MD - 11/08/2021 Contact your physician for follow-up evaluation of your concussion in 1 week. Off work during this time. Return to the emergency department if symptoms change or worsen. The following attachments cannot be sent through Care Everywhere.Acute Concussion (Austrian)documented in this encounter [facility] Work Phone: 10-31-2021 Hospital Discharge instructions Jonn Mcdonnell MD - 10/31/2021 Will need to follow with [employer]; will feel sore for next 3 days The following attachments cannot be sent through Care Everywhere.Shoulder Pain (Austrian)documented in this encounter [facility] Work Phone: 07-26-2020 History of Past i llness Narrative Problem Noted Date Resolved Date Intractable vomiting with nausea 07/26/2020 08/03/2020 Chest pain 01/29/2018 09/25/2019 HTN (hypertension), benign 01/11/201702/12 documented as of this encounter (statuses as of 04/16/2022) [facility] History of Past illness Narrative* Problem Noted Date Resolved Date Intractable vomiting with nausea 07/26/2020 08/03/2020 Chest pain 01/29/2018 09/25/2019 HTN (hypertension), benign 01/11/201702/12 documented as of this encounter (statuses as of 09/12/2022) [address]2020 History of Past illness Narrative* Problem Noted Date Resolved Date Intractable vomiting with nausea 07/26/2020 08/03/2020 Chest pain 01/29/2018 09/25/2019 HTN (hypertension), benign 01/11/201702/12 documented as of this encounter (statuses as of 09/14/2022) [address]2020 History of Past illness Narrative* Problem Noted Date Resolved Date Intractable vomiting with nausea 07/26/2020 08/03/2020 Chest pain 01/29/2018 09/25/2019 HTN (hypertension), benign 01/11/201702/12 documented as of this encounter (statuses as of 09/14/2022) [address]2020 History of Past illness Narrative* Problem Noted Date Resolved Date Intractable vomiting with nausea 07/26/2020 08/03/2020 Chest pain 01/29/2018 09/25/2019 HTN (hypertension), benign 01/11/201702/12 documented as of this encounter (statuses as of 09/21/2022) [address]2020 History of Past illness Narrative* Problem Noted Date Resolved Date Intractable vomiting with nausea 07/26/2020 08/03/2020 Chest pain 01/29/2018 09/25/2019 HTN (hypertension), benign 01/11/201702/12 documented as of this encounter (statuses as of 10/03/2022) [address] History of Past illness Narrative* Problem Noted Date Resolved Date Intractable vomiting with nausea 07/26/2020 08/03/2020 Chest pain 01/29/2018 09/25/2019 HTN (hypertension), benign 01/11/201702/12 documented as of this encounter (statuses as of 10/18/2022) [address]2020 History of Past illness Narrative* Problem Noted Date Resolved Date Intractable vomiting with nausea 07/26/2020 08/03/2020 Chest pain 01/29/2018 09/25/2019 HTN (hypertension), benign 01/11/201702/12 documented as of this encounter (statuses as of 11/28/2022) [address] History of Past illness Narrative* Problem Noted Date Resolved Date Intractable vomiting with nausea 07/26/2020 08/03/2020 Chest pain 01/29/2018 09/25/2019 HTN (hypertension), benign 01/11/201702/12 documented as of this encounter (statuses as of 11/29/2022) [facility] History of Past illness Narrative* Problem Noted Date Resolved Date Intractable vomiting with nausea 07/26/2020 08/03/2020 Chest pain 01/29/2018 09/25/2019 HTN (hypertension), benign 01/11/201702/12 documented as of this encounter (statuses as of 12/05/2022) [address] History of Past illness Narrative* Problem Noted Date Resolved Date Intractable vomiting with nausea 07/26/2020 08/03/2020 Chest pain 01/29/2018 09/25/2019 HTN (hypertension), benign 01/11/201702/12 documented as of this encounter (statuses as of 12/09/2022) [address] History of Past illness Narrative* Problem Noted Date Resolved Date Intractable vomiting with nausea 07/26/2020 08/03/2020 Chest pain 01/29/2018 09/25/2019 HTN (hypertension), benign 01/11/201702/12 documented as of this encounter (statuses as of 12/26/2022) [address] History of Past illness Narrative* Problem Noted Date Resolved Date Intractable vomiting with nausea 07/26/2020 08/03/2020 Chest pain 01/29/2018 09/25/2019 HTN (hypertension), benign 01/11/201702/12 documented as of this encounter (statuses as of 12/27/2022) [address] History of Past illness Narrative* Problem Noted Date Resolved Date Intractable vomiting with nausea 07/26/2020 08/03/2020 Chest pain 01/29/2018 09/25/2019 HTN (hypertension), benign 01/11/201702/12 documented as of this encounter (statuses as of 12/27/2022) [address]2020 History of Past illness Narrative* Problem Noted Date Resolved Date Intractable vomiting with nausea 07/26/2020 08/03/2020 Chest pain 01/29/2018 09/25/2019 HTN (hypertension), benign 01/11/201702/12 documented as of this encounter (statuses as of 12/31/2022) [address] History of Past illness Narrative* Problem Noted Date Resolved Date Intractable vomiting with nausea 07/26/2020 08/03/2020 Chest pain 01/29/2018 09/25/2019 HTN (hypertension), benign 01/11/201702/12 documented as of this encounter (statuses as of 01/09/2023) [address]2020 History of Past illness Narrative* Problem Noted Date Resolved Date Intractable vomiting with nausea 07/26/2020 08/03/2020 Chest pain 01/29/2018 09/25/2019 HTN (hypertension), benign 01/11/201702/12 documented as of this encounter (statuses as of 01/16/2023) [address]2020 History of Past illness Narrative* Problem Noted Date Resolved Date Intractable vomiting with nausea 07/26/2020 08/03/2020 Chest pain 01/29/2018 09/25/2019 HTN (hypertension), benign 01/11/201702/12 documented as of this encounter (statuses as of 01/18/2023) [address]2020 History of Past illness Narrative* Problem Noted Date Resolved Date Intractable vomiting with nausea 07/26/2020 08/03/2020 Chest pain 01/29/2018 09/25/2019 HTN (hypertension), benign 01/11/201702/12 documented as of this encounter (statuses as of 01/19/2023) [address]2020 History of Past illness Narrative* Problem Noted Date Resolved Date Intractable vomiting with nausea 07/26/2020 08/03/2020 Chest pain 01/29/2018 09/25/2019 HTN (hypertension), benign 01/11/201702/12 documented as of this encounter (statuses as of 01/22/2023) [address]2020 History of Past illness Narrative* Problem Noted Date Resolved Date Intractable vomiting with nausea 07/26/2020 08/03/2020 Chest pain 01/29/2018 09/25/2019 HTN (hypertension), benign 01/11/201702/12 documented as of this encounter (statuses as of 01/28/2023) [address]2020 History of Past illness Narrative* Problem Noted Date Resolved Date Intractable vomiting with nausea 07/26/2020 08/03/2020 Chest pain 01/29/2018 09/25/2019 HTN (hypertension), benign 01/11/201702/12 documented as of this encounter (statuses as of 01/31/2023) [address]2020 History of Past illness Narrative* Problem Noted Date Resolved Date Intractable vomiting with nausea 07/26/2020 08/03/2020 Chest pain 01/29/2018 09/25/2019 HTN (hypertension), benign 01/11/201702/12 documented as of this encounter (statuses as of 02/01/2023) [address]2020 History of Past illness Narrative* Problem Noted Date Resolved Date Intractable vomiting with nausea 07/26/2020 08/03/2020 Chest pain 01/29/2018 09/25/2019 HTN (hypertension), benign 01/11/201702/12 documented as of this encounter (statuses as of 02/04/2023) [address] History of Past illness Narrative* Problem Noted Date Resolved Date Intractable vomiting with nausea 07/26/2020 08/03/2020 Chest pain 01/29/2018 09/25/2019 HTN (hypertension), benign 01/11/201702/12 documented as of this encounter (statuses as of 02/08/2023) [address]08-2020 History of Past illness Narrative* Problem Noted Date Resolved Date Intractable vomiting with nausea 07/26/2020 08/03/2020 Chest pain 01/29/2018 09/25/2019 HTN (hypertension), benign 01/11/201702/12 documented as of this encounter (statuses as of 02/11/2023) [address]08-2020 History of Past illness Narrative* Problem Noted Date Resolved Date Intractable vomiting with nausea 07/26/2020 08/03/2020 Chest pain 01/29/2018 09/25/2019 HTN (hypertension), benign 01/11/201702/12 documented as of this encounter (statuses as of 02/23/2023) [address]08-2020 History of Past illness Narrative* Problem Noted Date Resolved Date Intractable vomiting with nausea 07/26/2020 08/03/2020 Chest pain 01/29/2018 09/25/2019 HTN (hypertension), benign 01/11/201702/12 documented as of this encounter (statuses as of 02/26/2023) [address]-2020 History of Past illness Narrative* Problem Noted Date Resolved Date Intractable vomiting with nausea 07/26/2020 08/03/2020 Chest pain 01/29/2018 09/25/2019 HTN (hypertension), benign 01/11/201702/12 documented as of this encounter (statuses as of 03/14/2023) [facility]09-08-2020 History of Past illness Narrative* Problem Noted Date Resolved Date Intractable vomiting with nausea 07/26/2020 08/03/2020 Chest pain 01/29/2018 09/25/2019 HTN (hypertension), benign 01/11/201702/12 documented as of this encounter (statuses as of 03/16/2023) [address]-2020 History of Past illness Narrative* Problem Noted Date Resolved Date Intractable vomiting with nausea 07/26/2020 08/03/2020 Chest pain 01/29/2018 09/25/2019 HTN (hypertension), benign 01/11/201702/12 documented as of this encounter (statuses as of 04/17/2023) [address]-2020 History of Past illness Narrative* Problem Noted Date Resolved Date Intractable vomiting with nausea 07/26/2020 08/03/2020 Chest pain 01/29/2018 09/25/2019 HTN (hypertension), benign 01/11/201702/12 documented as of this encounter (statuses as of 05/06/2023) [address]2020 History of Past illness Narrative* Problem Noted Date Diagnosed Date Resolved Date Intractable vomiting with nausea 07/26/2020 08/03/2020 Chest pain 01/29/2018 09/25/2019 HTN (hypertension), benign 01/11/2017 0 02/12/2018 documented as of this encounter (statuses as of 06/17/2023) [address]-2020 History of Past illness Narrative* Problem Noted Date Diagnosed Date Resolved Date Intractable vomiting with nausea 07/26/2020 08/03/2020 Chest pain 01/29/2018 09/25/2019 HTN (hypertension), benign 01/11/2017 0 02/12/2018 documented as of this encounter (statuses as of 06/19/2023) [facility]2020 History of Past illness Narrative* Problem Noted Date Diagnosed Date Resolved Date Intractable vomiting with nausea 07/26/2020 08/03/2020 Chest pain 01/29/2018 09/25/2019 HTN (hypertension), benign 01/11/2017 0 02/12/2018 documented as of this encounter (statuses as of 07/12/2023) [address]2020 History of Past illness Narrative* Problem Noted Date Diagnosed Date Resolved Date Intractable vomiting with nausea 07/26/2020 08/03/2020 Chest pain 01/29/2018 09/25/2019 HTN (hypertension), benign 01/11/2017 0 02/12/2018 documented as of this encounter (statuses as of 07/25/2023) [facility] History of Past illness Narrative* Problem Noted Date Diagnosed Date Resolved Date Intractable vomiting with nausea 07/26/2020 08/03/2020 Chest pain 01/29/2018 09/25/2019 HTN (hypertension), benign 01/11/2017 0 02/12/2018 documented as of this encounter (statuses as of 08/05/2023) [address]-2020 History of Past illness Narrative* Problem Noted Date Diagnosed Date Resolved Date Intractable vomiting with nausea 07/26/2020 08/03/2020 Chest pain 01/29/2018 09/25/2019 HTN (hypertension), benign 01/11/2017 0 02/12/2018 documented as of this encounter (statuses as of 08/07/2023) [address]2020 History of Past illness Narrative* Problem Noted Date Diagnosed Date Resolved Date Intractable vomiting with nausea 07/26/2020 08/03/2020 Chest pain 01/29/2018 09/25/2019 HTN (hypertension), benign 01/11/2017 0 02/12/2018 documented as of this encounter (statuses as of 08/12/2023) [address]2020 History of Past illness Narrative* Problem Noted Date Diagnosed Date Resolved Date Intractable vomiting with nausea 07/26/2020 08/03/2020 Chest pain 01/29/2018 09/25/2019 HTN (hypertension), benign 01/11/2017 0 02/12/2018 documented as of this encounter (statuses as of 10/24/2023) [address]2020 History of Past illness Narrative* Problem Noted Date Diagnosed Date Resolved Date Intractable vomiting with nausea 07/26/2020 08/03/2020 Chest pain 01/29/2018 09/25/2019 HTN (hypertension), benign 01/11/2017 0 02/12/2018 documented as of this encounter (statuses as of 10/24/2023) [address]2020 History of Past illness Narrative* Problem Noted Date Diagnosed Date Resolved Date Intractable vomiting with nausea 07/26/2020 08/03/2020 Chest pain 01/29/2018 09/25/2019 HTN (hypertension), benign 01/11/2017 0 02/12/2018 documented as of this encounter (statuses as of 10/28/2023) [address]2020 History of Past illness Narrative* Problem Noted Date Diagnosed Date Resolved Date Intractable vomiting with nausea 07/26/2020 08/03/2020 Chest pain 01/29/2018 09/25/2019 HTN (hypertension), benign 01/11/2017 0 02/12/2018 documented as of this encounter (statuses as of 01/12/2024) [address]2020 History of Past illness Narrative* Problem Noted Date Diagnosed Date Resolved Date Intractable vomiting with nausea 07/26/2020 08/03/2020 Chest pain 01/29/2018 09/25/2019 HTN (hypertension), benign 01/11/2017 0 02/12/2018 documented as of this encounter (statuses as of 01/16/2024) [place] [address] History of Past illness Narrative* Problem Noted Date Diagnosed Date Resolved Date Intractable vomiting with nausea 07/26/2020 08/03/2020 Chest pain 01/29/2018 09/25/2019 HTN (hypertension), benign 01/11/2017 0 02/12/2018 documented as of this encounter (statuses as of 01/30/2024) [facility] Injury of head, initial [...] calcification, unspecified laterality [facility]: [facility]* Diagnosis Postconcussion syndrome- Primary [facility] Diagnosis Gait disorder Abnormality of gait documented in this encounter [facility] Work Phone: Evaluation note* Diagnosis Viral gastroenteritis- Primary Intestinal infection due to other organism, not elsewhere classified Anxiety with depression [facility] Diagnosis Medication management Encounter for long-term (current) use of other medications Hyperlipidemia Other and unspecified hyperlipidemia CKD (chronic kidney disease) stage 2, GFR 60-89 ml/min Chronic kidney disease, Stage II (mild) documented in this encounter [facility]* Diagnosis Encounter for annual wellness exam in Medicare patient- Primary Advance care planning Other specified counseling Lumbar radiculopathy Thoracic or lumbosacral neuritis or radiculitis, unspecified Sciatica associated with disorder of lumbar spine Coronary artery disease involving [place] heart without angina pectoris, unspecified vessel or lesion type HTN (hypertension), benign Essential hypertension, benign Moses's esophagus without dysplasia Moses's esophagus Recurrent major depressive disorder, in full remission (HCC) High cholesterol Pure hypercholesterolemia Need for vaccination Need for prophylactic vaccination and inoculation against unspecified single disease documented in this encounter [facility] note* Diagnosis Anxiety with depression- Primary Major depressive disorder, recurrent, in full remission (HCC) Major depressive disorder, recurrent episode, in full remission documented in this encounter [facility] note* Diagnosis Gastroenteritis- Primary Other and unspecified noninfectious gastroenteritis and colitis PUD (peptic ulcer disease) Peptic ulcer, unspecified site, unspecified as acute or chronic, without mention of hemorrhage, perforation, or obstruction Moses's esophagus without dysplasia Moses's esophagus [facility] Diagnosis Foot pain, left- Primary Pain in limb Advance care planning Other specified counseling High cholesterol Pure hypercholesterolemia Primary hypertension Unspecified essential hypertension Left leg claudication (HCC) Peripheral vascular disease, unspecified documented in this encounter [facility]* Diagnosis Foot pain, left Pain in limb [facility]* Diagnosis Vascular dementia without behavioral disturbance (HCC)- Primary Vascular dementia, uncomplicated Cerebellar stroke (HCC) [facility]* Diagnosis Adjustment disorder with mixed anxiety and depressed mood- Primary Vascular dementia without behavioral disturbance (HCC) Vascular dementia, uncomplicated [facility]* Diagnosis Cerebrovascular accident (CVA) due to stenosis of right carotid artery (HCC)- Primary [facility]* Diagnosis S/P carotid endarterectomy- Primary Other postprocedural status Dizziness Dizziness and giddiness Nausea Nausea alone Epigastric pain Abdominal pain, epigastric Fatigue, unspecified type Active advance directive- Primary Other specified conditions influencing health status [facility]* Diagnosis TIA (transient ischemic attack)- Primary Unspecified transient cerebral ischemia Carotid stenosis, right Occlusion and stenosis of carotid artery without mention of cerebral infarction Left-sided weakness Muscle weakness (generalized) Chronic abdominal pain Abdominal pain, unspecified site Primary hypertension Unspecified essential hypertension Pure hypercholesterolemia Active advance directive Other specified conditions influencing health status Hypocalcemia [facility] Diagnosis Primary hypertension- Primary Unspecified essential hypertension Vertigo Dizziness and giddiness TIA (transient ischemic attack) Unspecified transient cerebral ischemia Carotid stenosis, right Occlusion and stenosis of carotid artery without mention of cerebral infarction Pure hypercholesterolemia [facility]* Diagnosis Nausea Nausea alone Coronary artery disease involving [place] heart without angina pectoris, unspecified vessel or lesion type [facility]* Diagnosis Mild vascular dementia without behavioral disturbance, psychotic disturbance, mood disturbance, or anxiety (HCC)- Primary History of stroke Transient ischemic attack (TIA), and cerebral infarction without residual deficits documented in this encounter [facility] note* Diagnosis Lateral epicondylitis of right elbow- Primary Lateral epicondylitis of elbow Anxiety with depression Stage 3a chronic kidney disease (HCC) High cholesterol Pure hypercholesterolemia [facility]* Diagnosis Cerebellar stroke (HCC)- Primary Vascular dementia without behavioral disturbance (HCC) Vascular dementia, uncomplicated [facility]* Diagnosis Vertigo Dizziness and giddiness [facility]* Diagnosis Weight loss- Primary Loss of weight Coronary artery disease involving [place] heart without angina pectoris, unspecified vessel or lesion type High cholesterol Pure hypercholesterolemia Moses's esophagus without dysplasia Moses's esophagus HTN (hypertension), benign Essential hypertension, benign Anxiety with depression documented in this [facility]* Diagnosis Anxiety with depression- Primary Inattention Attention or concentration deficit Cerebellar stroke (HCC) Coronary artery disease involving [place] coronary artery of [place] heart without angina pectoris Aortic dilatation (HCC) Aortic ectasia, unspecified site Laceration of right eyebrow, subsequent encounter documented in this encounter [facility]* Diagnosis Vertigo Dizziness and giddiness documented in this encounter [facility]* Diagnosis Acute non-recurrent pansinusitis- Primary Active advance directive Other specified conditions influencing health status documented in this encounter [facility]* Diagnosis Acute non-recurrent pansinusitis documented in this encounter [facility]* Diagnosis Acute left-sided low back pain with left-sided sciatica- Primary documented in this encounter [facility] note* Diagnosis Arterial ischemic stroke (HCC)- Primary Unspecified cerebral artery occlusion with cerebral infarction documented in this encounter [facility]* Diagnosis Acute ischemic right MCA stroke (HCC)- Primary Unspecified cerebral artery occlusion with cerebral infarction documented in this encounter [facility]* Diagnosis Stroke-like symptom- Primary Other symptoms involving nervous and musculoskeletal systems documented in this encounter [facility]* Diagnosis Encounter for medical screening examination- Primary documented in this encounter [facility] note* Diagnosis Left-sided weakness- Primary Muscle weakness (generalized) Cerebellar stroke (HCC) Facial droop as late effect of cerebrovascular accident (CVA) Dysarthria Primary hypertension Unspecified essential hypertension documented in this encounter [facility]* Diagnosis HTN (hypertension), benign Essential hypertension, benign documented in this encounter [facility]* Diagnosis Acute ischemic right MCA stroke [...] Essential hypertension, benign documented in this encounter [facility] note* Diagnosis Fall, initial encounter- Primary Closed head injury, initial encounter [facility]* Diagnosis Agitation due to dementia (HCC)- Primary [facility]* Diagnosis Fall, initial encounter- Primary Closed head injury, initial encounter documented in this encounter [facility] noteNo assessment information availableWCorey Hospital Work Phone: Hospital Discharge instructions* Attachments The following attachments cannot be sent through Care Everywhere. * [facility]concussion Syndrome ([place]) [facility]* Attachments The following attachments cannot be sent through Care Everywhere. * Preventing Falls in Older Adults (Austrian) * Concussion Discharge Instructions, Adult (Austrian) documented in this [facility] for referral (narrative)* Diagnostic Procedure Only (Routine) - Closed Specialty Diagnoses / Procedures Referred By Contac t Referred To Contact XR IMAGING Diagnoses Foot pain, left Procedures XR FOOT GENERAL 3V AP/LAT/OBL LEFT RADEX FOOT COMPLETE MINIMUM 3 VIEWS Giorgio Fernandez DO [address] [place] [address] Xr Imaging Referral ID Status Reason Start Date Expiration Date V isits Requested Visits Authorized [id number] Closed Auto-Generate d Referral 12/26/2022 01/25/2024 1 1 [facility] for referral (narrative)* Diagnostic Procedure Only (Routine) - Closed Specialty Diagnoses / Procedures Referred By Contac t Referred To Contact XR IMAGING Diagnoses Foot pain, left Procedures XR FOOT GENERAL 3V AP/LAT/OBL LEFT RADEX FOOT COMPLETE MINIMUM 3 VIEWS Giorgio Fernandez DO [address] [place] [address] Xr Imaging Referral ID Status Reason Start Date Expiration Date V isits Requested Visits Authorized [id number] Closed Auto-Generate d Referral 12/26/2022 01/25/2024 1 1 [facility] for referral (narrative)* Consultation (Routine) - Pending Review Specialty Diagnoses / Procedures Referred By Contac t Referred To Contact Occupational Therapy Diagnoses Mild vascular dementia without behavioral disturbance, psychotic disturbance, mood disturbance, or anxiety (HCC) History of stroke Procedures [place] OFFICE/OUTPATIENT [facility] 60-74 MINUTES Giovanni Reyes APRN - CNP [address] [address] Referral ID Status Reason Start Date Expiration Date Visits Requested Visits Authorized [id number] Pending Review Specialty Services Required 04/25/2023 04/25/2024 99 [phone] (narrative)* Consultation (Urgent) - Pending Review Specialty Diagnoses / Procedures Referred By Contac t Referred To Contact Orthopedic Surgery Diagnoses Acute left-sided low back pain with left-sided sciatica Procedures [place] OFFICE/OUTPATIENT [facility] 60 MINUTES Russ Castro MD [address] [place] [address] [facility] [address] [place] [id number] Referral ID Status Reason Start Date Expiration Date Visits Requested Visits Authorized [id number] Pending Review Specialty Services Required 04/14/2024 04/14/2025 1 1 [facility] for [facility] (narrative)* Diagnostic Procedure Only (Routine) - Pending Review Specialty Diagnoses / Procedures Referred By Contac t Referred To Contact US IMAGING Diagnoses Acute ischemic right MCA stroke (HCC) Procedures US CAROTID BILATERAL Emanuel Ness APRN.[employer] [address] [place] [address] [place] [address] Referral ID Status Reason Start Date Expiration Date Visits Requested Visits Authorized [id number] Pending Review Auto-Generat ed Referral 04/27/2024 05/27/2025 1 1 [facility] for referral (narrative)* Diagnostic Procedure Only (Routine) - Waiting for Response Specialty Diagnoses / Procedures Referred By Contac t Referred To Contact XR IMAGING Diagnoses Left-sided weakness Cerebellar stroke (HCC) Dysarthria Procedures XR MODIFIED BARIUM SWALLOW W SPEECH THERAPY RADIOLOGIC EXAM SWALLOW FUNCTION CONTRAST STUDY Giorgio Fernandez DO [address] [place] [address] [place] [address] Referral ID Status Reason Start Date Expiration Date Visits Requested Visits Authorized [id number] Waiting for Response Auto-Generat ed Referral 06/15/2024 07/15/2025 1 1 [facility] for referral (narrative)No reason for referral information availableWCorey Hospital Work Phone: Reason for visit Narrative* Diagnostic Procedure Only (Routine) - Closed Specialty Diagnoses / Procedures Referred By Contac t Referred To Contact XR IMAGING Diagnoses Foot pain, left Procedures XR FOOT GENERAL 3V AP/LAT/OBL LEFT RADEX FOOT COMPLETE MINIMUM 3 VIEWS Giorgio Fernandez DO [address] [place] [address] Xr Imaging Referral ID Status Reason Start Date Expiration Date V isits Requested Visits Authorized [id number] Closed Auto-Generate d Referral 12/26/2022 01/25/2024 1 1 [facility] Summary Purpose Family History No Family [...] Documents on File Type Date Recorded Patient Manager Recruiting Expl anation Advance Directive(s) 04/27/2021 6:04 PM [...] with depression Procedures CONSULT TO PSYCHIATRY OFFICE/OUTPATIENT [facility] 60-74 MINUTES Yokasta Adrian DO [address] [facility] [address] [place] [address] Referral ID Status Reason Start Date Expiration Date Visits Requested Visits Authorized [id number] Pending Review PCP Requested Referral 2 09/14/2023 1 1 Specialty Diagnoses / Procedures Referred By Contac t Referred To Contact Gastroenterology Diagnoses PUD (peptic ulcer disease) Moses's esophagus without dysplasia Procedures CONSULT TO GASTROENTEROLOGY OFFICE/OUTPATIENT [facility] 60-74 MINUTES Shane Justice PA-C [address] [facility] [address] [place] [address] Referral ID Status Reason Start Date Expiration Date Visits Requested Visits Authorized [id number] Pending Review PCP Requested Referral 12/06/2022 12/06/2023 1 1 Specialty Diagnoses / Procedures Referred By Contac t Referred To Contact [facility] Diagnoses Cerebellar stroke (HCC) Vascular dementia without behavioral disturbance (HCC) Procedures OT REHAB FOLLOW UP ORDER THERAPEUT ACTVITY DIRECT PT CONTACT EACH 15 [address] [place] [address] [facility] [address] [address] Referral ID Status Reason Start Date Expiration Date Visits Requested Visits Authorized [id number] Pending Review PCP Requested Referral Auto-Generate d Referral 01/08/2023 04/08/2023 1 1 Specialty Diagnoses / Procedures Referred By Contac t Referred To Contact Psychology Diagnoses MDD (major depressive disorder), recurrent episode, moderate (HCC) Procedures CONSULT TO PSYCHOLOGY OFFICE/OUTPATIENT [facility] 60-74 MINUTES Radha Calderon APRN.[employer] [address] [address] Referral ID Status Reason Start Date Expiration Date Visits Requested Visits Authorized [id number] Pending Review PCP Requested Referral 01/16/2023 01/16/2024 1 1 Specialty Diagnoses / Procedures Referred By Contac t Referred To Contact Neurology Diagnoses Cerebellar stroke (HCC) Procedures CONSULT TO NEUROLOGY OFFICE/OUTPATIENT [facility] 60-74 MINUTES Liset Menjivar APRN.[employer] [address] [place] [address] Referral ID Status Reason Start Date Expiration Date Visits Requested Visits Authorized [id number] Pending Review PCP Requested Referral 10/24/2023 10/23/2024 1 1 Specialty Diagnoses / Procedures Referred By Contac t Referred To Contact Cardiology Diagnoses Coronary artery disease involving [place] coronary artery of [place] heart without angina pectoris Aortic dilatation (HCC) Procedures CONSULT TO CARDIOLOGY OFFICE/OUTPATIENT [facility] 60-74 MINUTES Liset Menjivar APRN.[employer] [address] [place] [address] Referral ID Status Reason Start Date Expiration Date Visits Requested Visits Authorized [id number] Pending Review PCP Requested Referral 10/24/2023 10/23/2024 1 1 Specialty Diagnoses / Procedures Referred By Contac t Referred To Contact Diagnoses Anxiety with depression Inattention Procedures CONSULT TO PSYCHIATRY OFFICE/OUTPATIENT [facility] 60-74 MINUTES Liset Menjivar APRN.[employer] [address] [place] [address] Referral ID Status Reason Start Date Expiration Date Visits Requested Visits Authorized [id number] Pending Review PCP Requested Referral 10/24/2023 10/23/2024 1 1 Specialty Diagnoses / Procedures Referred By Contac t Referred To Contact Diagnoses Acute non-recurrent pansinusitis Gary Matute, CRM MARKETING ANALYST.[employer] [address] [place] [address] Referral ID Status Reason Start Date Expiration Date Visits Re quested Visits Authorized [id number] Denied 1 1 Health Concerns Infection Onset Date Last Indicated Resolved Time COVID-19 Rule-Out 01/19/2023 01/19/2023 01/19/2023 11:37 AM EST Chief Complaint and Reason for Visit Chief Complaint Admit Date [facility] January 15 5:00am [facility] WORK January 20, 2025 5: 00am LABWORK January 25, 2025 5:0 0am Chief Complaint Admit Date [facility] WORK January 15 5:00am [facility] WORK January 20, 2025 5: 00am LABWORK January 25, 2025 5:0 0am LABWORK March 15, 2025 5:0 0am Chief Complaint Admit Date [facility] WORK January 15 5:00am [facility] WORK January 20, 2025 5: 00am LABWORK January 25, 2025 5:0 0am LABWORK March 15, 2025 5:0 0am [facility] WORK March 23, 2025 7:00 pm Additional Source Comments (unrecognized sect ion and content) No Status Records FoundNo Status Records FoundNo Status Records FoundNo Status Records FoundNo Status Records FoundNo Status Records FoundNo Status Records FoundNo Status Records FoundNo Status Records FoundNo Status Records Found INFORMATION SOURCE (unrecogn ized section and content) DATE CREATED AUTHOR 07/20/2021 Tomás [facility] DATE CREATED AUTHOR AUTHOR'S ORGANIZ ATION 05/17/2022 [facility] DATE CREATED AUTHOR AUTHOR'S ORGANIZ ATION 08/21/2022 [facility] DATE CREATED AUTHOR AUTHOR'S ORGANIZ ATION 10/20/2023 [facility] DATE CREATED AUTHOR AUTHOR'S ORGANIZ ATION 04/17/2024 [facility] DATE CREATED AUTHOR AUTHOR'S ORGANIZ ATION 04/29/2024 [facility] DATE CREATED AUTHOR AUTHOR'S ORGANIZ ATION 06/20/2024 [facility] DATE CREATED AUTHOR AUTHOR'S ORGANIZ ATION 01/20/2025 [facility] DATE CREATED AUTHOR AUTHOR'S ORGANIZ ATION 05/04/2025 [facility] DATE CREATED AUTHOR AUTHOR'S ORGANIZ ATION 08/12/2025 [facility] Reason for Visit (unrecogniz ed section and [...] TESTING Frederic Velasquez MD [address] [place] [address] Dianna Traylor, PhD [address] [place] [address] Referral ID Status Reason Start Date Expiration Date V isits Requested Visits Authorized [id number] Authorized 01/17/2022 11/17/2022 2 2 Reason Comments [...] NEW RS OT COMM REINTEGRATION Giovanni Reyes, SALES EXECUTIVE INSURANCE [address] [place] [address] Caleb Benjamin, OTR/L [address] [facility] [address] Referral ID Status Reason Start Date Expiration Date V isits Requested Visits Authorized [id number] Authorized 12/20/2022 11/17/2023 2 2 Reason Comments Opened In Error Reason Comments Home Care Follow for HHC Reason Onset Date Comments Transition Of Care 01/28/2023 D/C from [facility] 01/26/23 to Home Reason Comments Information Reason Comments Post Op Post-op Reason Comments Transition Of Care Left sided weakness Reason Comments Illness Reason Onset Date Comments Transition Of Care 02/11/2023 TCM Follow up Reason Comments Potential Stroke Symptoms Reason Onset Date Comments Transition Of Care 02/25/2023 [facility] d/c Reason Comments Patient Question Reason [...] NEW RS OT COMM REINTEGRATION Giovanni Reyes, SALES EXECUTIVE INSURANCE [address] [place] [address] Caleb Benjamin OTR/Eriberto [address] [place] [address] Referral ID Status Reason Start Date Expiration Date Visits Re quested Visits Authorized [id number] Closed 12/20/2022 11/17/2023 2 2 Reason Comments [...] but pain worsened today. 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 Reason Onset Date Comments Transition Of Care 04/15/2024 [facility] 04/14/24 Reason Comments Orders Reason Onset Date Comments Transition Of Care 05/01/2024 [facility] discharg e to [facility] Reason Onset Date Comments ACM HEAVEN RN 05/14/2024 ED Utilizatio n Review per request of payor Specialty Diagnoses / Procedures Referred By Maria Guadalupe amador Referred To Contact [facility] Medical Nish[facility] Goyal [address] [place] [address] Referral ID Status Reason Start Date Expiration Date V isits Requested Visits Authorized [id number] New Request 05/01/2024 06/30/2024 Reason Onset Date Comments Transition Of Care 05/18/2024 Discharged fr om Nishant Goyal to [facility] Reason Onset Date Comments Transition Of Care 05/19/2024 Inpatient TCM visit Reason Onset Date Comments Transition Of Care 05/22/2024 [facility] discharg e to [facility] Reason Comments Rib Injury Left ribs [...] HIGH MDM 40 MIN 4C EST Giorgio Fernandez, [address] [place] [address] Giorgio Fernandez DO [address] [place] [address] Referral ID Status Reason Start Date Expiration Date Visits Requested Visits Authorized [id number] Waiting for Response Patient Cleared - Admin/Chair man/Directo r advise to proceed or did not respond 06/15/2024 09/13/2024 1 1 Reason Onset Date Comments Population Health Navigation Outreach 06/19/[address] [facility] to Home with Home Health Care Reason Comments Release Of Medical Records Reason Onset Date Comments Transition Of Care 06/26/2024 TCM. Admitted to [facility] care of [place] Reason Onset Date Comments Modified [facility] Score 07/14/2024 Reason Comments Fall Pt in by EMS from [facility] memory care unit. States "He was sitting on the toilet and went to stand up and fell forward hitting hit head on the grab bar", per EMS, pt on plavix. Denies LOC. Pt with history of dementia and stroke with weakness to left side. Pt Aox1. Reason Comments Agitation Reason Comments Fall Patient fell today a ccording to staff at [facility], out of his bed, hematoma to the [...] hours. 1601 (Given - Provid er: Edna Crabtree RN) Scheduled Medication Order 02/23/2022 02/24/2022 02/25/2022 bacitracin ointment Topical, ONCE, On 02/25/22 at 1315, For 1 dose, Apply to affected area 1315 (Due) Scheduled Medication Order 04/12/2024 04/13/2024 04/14/2024 ketorolac (Toradol) injection 15 mg (COMPLETED) 15 mg, IntraMUSCular, Once, On Sat04/13/24 at 2350, For 1 dose 235 (Given - Provider: Yen Emery RN) Lidocaine 4 % patch 1 patch 1 patch, TransDERmal, Administer over 12 Hours, Once, On Sat04/13/24 at 2350, For 1 dose, Apply patch to left low back. Patch may remain in place for up to 12 hours in any 24 hour period. 2352 (Medication Applied - Provider: Yen Emery RN - Comment: left back) 0100 (Due: Medication [...] Care Teams (unrecognized sec tion and content) Electrical Accessories Ii Assembler Relationship Specialty Start Date End Date RonFrederic hawthorne PCP - General 12/19/16 Electrical Accessories Ii Assembler Relationship Specialty Start Date End Date RonFrederic hawthorne PCP - General 12/19/16 Electrical Accessories Ii Assembler Relationship Specialty Start Date End Date Frederic Velasquez PCP - General 12/19/16 Electrical Accessories Ii Assembler Relationship Specialty Start Date End Date RonFrederic hawthorne PCP - General 12/19/16 Electrical Accessories Ii Assembler Relationship Specialty Start Date End Date RonFrederic hawthorne PCP - General 12/19/16 Electrical Accessories Ii Assembler Relationship Specialty Start Date End Date Frederic Velasquez PCP - General 12/19/16 Electrical Accessories Ii Assembler Relationship Specialty Start Date End Date Frederic Velasquez PCP - General 12/19/16 Electrical Accessories Ii Assembler Relationship Specialty Start Date End Date Frederic Velasquez PCP - General 12/19/16 Electrical Accessories Ii Assembler Relationship Specialty Start Date End Date Frederic Velasquez PCP - General 12/19/16 Electrical Accessories Ii Assembler Relationship Specialty Start Date End Date Frederic Velasquez MD [address] [place] [id number] PCP - General Family Practice 12/24/16 Electrical Accessories Ii Assembler Relationship Specialty Start Date End Date Frederic Velasquez PCP - General 12/19/16 Electrical Accessories Ii Assembler Relationship Specialty Start Date End Date Shane Justice PA-C [address] [facility] [address] [place], [place] [address] PCP - General Family Medicine 09/10/22 Electrical Accessories Ii Assembler Relationship Specialty Start Date End Date Shane Justice PA-C [address] [facility] [address] [place] [address] PCP - General Family Medicine 09/10/22 Electrical Accessories Ii Assembler Relationship Specialty Start Date End Date Shane Justice PA-C [address] [facility] [address] [place] [address] PCP - General Family Medicine 09/10/22 Electrical Accessories Ii Assembler Relationship Specialty Start Date End Date Shane Justice PA-C [address] [facility] [address] [place] [address] PCP - General Family Medicine 09/10/22 Electrical Accessories Ii Assembler Relationship Specialty Start Date End Date Giorgio Fernandez DO [address] [place], [place] [address]335 PCP - General Family Medicine 10/02/22 Electrical Accessories Ii Assembler Relationship Specialty Start Date End Date Shane Justice PA-C [address] [facility] [address] [place] [address] PCP - General Family Medicine 09/10/22 10/01/22 Giorgio Fernandez, DO [address] [place] [address] PCP - General Family Medicine 10/02/22 Electrical Accessories Ii Assembler Relationship Specialty Start Date End Date Giorgio Fernandez, DO [address] [place] [address] PCP - General Family Medicine 10/02/22 Electrical Accessories Ii Assembler Relationship Specialty Start Date End Date Giorgio Fernandez, DO [address] [place] [address] PCP - General Family Medicine 10/02/22 Electrical Accessories Ii Assembler Relationship Specialty Start Date End Date Giorgio Fernandez, DO [address] [place] [address] PCP - General Family Medicine 10/02/22 Electrical Accessories Ii Assembler Relationship Specialty Start Date End Date Giorgio Fernandez, DO [address] [place] [address] PCP - General Family Medicine 10/02/22 Electrical Accessories Ii Assembler Relationship Specialty Start Date End Date Giorgio Fernandez, DO [address] [place] [address] PCP - General Family Medicine 10/02/22 Electrical Accessories Ii Assembler Relationship Specialty Start Date End Date Giorgio Fernandez, DO [address] [place] [address] PCP - General Family Medicine 10/02/22 Electrical Accessories Ii Assembler Relationship Specialty Start Date End Date Giorgio Fernandez, DO [address] [place] [address] PCP - General Family Medicine 10/02/22 Electrical Accessories Ii Assembler Relationship Specialty Start Date End Date Giorgio Fernandez, DO [address] [place] [address] PCP - General Family Medicine 10/02/22 Electrical Accessories Ii Assembler Relationship Specialty Start Date End Date Giorgio Fernandez, DO [address] [place] [address] PCP - General Family Medicine 10/02/22 Electrical Accessories Ii Assembler Relationship Specialty Start Date End Date Giorgio Fernandez, DO [address] [place] [address] PCP - General Family Medicine 10/02/22 Electrical Accessories Ii Assembler Relationship Specialty Start Date End Date Giorgio Fernandez, DO [address] [place] [address] PCP - General Family Medicine 10/02/22 Electrical Accessories Ii Assembler Relationship Specialty Start Date End Date Giorgio Fernandez, DO [address] [place] [address] PCP - General Family Medicine 10/02/22 Giorgio Fernandez, DO [address] [place] [address] Home Care Provider Family Medicine 01/21/23 Electrical Accessories Ii Assembler Relationship Specialty Start [place] [address] [place] [address] PCP - General Family Medicine 10/02/22 Giorgio Fernandez, [address] [address] Home Care Provider Family Medicine 01/21/23 Electrical Accessories Ii Assembler Relationship Specialty Start Date End Date Giorgio Fernandez [address] [address] PCP - General Family Medicine 10/02/22 FernandezGiorgio hanson, DO [address] [place] [address] Home Care Provider Family Medicine 01/21/23 Electrical Accessories Ii Assembler Relationship Specialty Start Date End Date Giorgio Fernandez, DO [address] [place] [address] PCP - General Family Medicine 10/02/22 ChavaGiorgio Daisy, DO [address] [place] [address] Home Care Provider Family Medicine 01/21/23 Electrical Accessories Ii Assembler Relationship Specialty Start Date End Date Giorgio Fernandez, DO [address] [place] [address] PCP - General Family Medicine 10/02/22 FernandezGiorgio hanson Daisy, DO [address] [place] [address] Home Care Provider Family Medicine 01/21/23 Electrical Accessories Ii Assembler Relationship Specialty Start Date End Date Giorgio Fernandez, DO [address] [place] [address] PCP - General Family Medicine 10/02/22 FernandezGiorgio Daisy, DO [address] [place] [address] Home Care Provider Family Medicine 01/21/23 Electrical Accessories Ii Assembler Relationship Specialty Start Date End Date Giorgio Fernandez Daisy, DO [address] [place] [address] PCP - General Family Medicine 10/02/22 Giorgio Fernandez, DO [address] [place] [address] Home Care Provider Family Medicine 01/21/23 Electrical Accessories Ii Assembler Relationship Specialty Start Date End Date Giorgio Fernandez DO [address] [place] [address] PCP - General Family Medicine 10/02/22 FernandezGiorgio Daisy DO [address] [place] [address] Home Care Provider Family Medicine 01/21/23 Electrical Accessories Ii Assembler Relationship Specialty Start Date End Date Frederic Velasquez PCP - General 12/19/16 Electrical Accessories Ii Assembler Relationship Specialty Start Date End Date Frederic Velasquez PCP - General 12/19/16 Electrical Accessories Ii Assembler Relationship Specialty Start Date End Date Frederic Velasquez PCP - General 12/19/16 Electrical Accessories Ii Assembler Relationship Specialty Start Date End Date FernandezGiorgio hanson Daisy DO [address] [place] [address] PCP - General Family Medicine 10/02/22 Chava Giorgio Daisy DO [address] [place] [address] Home Care Provider Family Medicine 01/21/23 Electrical Accessories Ii Assembler Relationship Specialty Start Date End Date Frederic Velasquez PCP - General 12/19/16 Electrical Accessories Ii Assembler Relationship Specialty Start Date End Date Frederic Velasquez PCP - General 12/19/16 Electrical Accessories Ii Assembler Relationship Specialty Start Date End Date Frederic Velasquez PCP - General 12/19/16 Electrical Accessories Ii Assembler Relationship Specialty Start Date End Date Giorgio Fernandez DO [address] [place] [address] PCP - General Family Medicine 10/02/22 Giorgio Fernandez DO [address] [place], [place] 491185 Home Care Provider Family Medicine 01/21/23 Electrical Accessories Ii Assembler Relationship Specialty Start Date End Date Giorgio Fernandez DO [address] [place], [place] [address]235 PCP - General Family Medicine 10/02/22 Giorgio Fernandez DO [address] [place], [place] 778105 Home Care Provider Family Medicine 01/21/23 Electrical Accessories Ii Assembler Relationship Specialty Start Date End Date Giorgio Fernandez DO [address] [place], [place] 657885 PCP - General Family Medicine 10/02/22 Giorgio Fernandez DO [address] [place], [place] 407415 Home Care Provider Family Medicine 01/21/23 Electrical Accessories Ii Assembler Relationship Specialty Start Date End Date Giorgio Fernandez DO [address] [place] [address] PCP - General Family Medicine 10/02/22 Giorgio Fernandez DO [address] [place] [address] Home Care Provider Family Medicine 01/21/23 Electrical Accessories Ii Assembler Relationship Specialty Start Date End Date Giorgio Fernandez DO [address] [place], [place] 926125 PCP - General Family Medicine 10/02/22 Giorgio Fernandez DO [address] [place], [place] 083745 Home Care Provider Family Medicine 01/21/23 Electrical Accessories Ii Assembler Relationship Specialty Start Date End Date Giorgio Fernandez DO [address] [place], [place] 647595 PCP - General Family Medicine 10/02/22 Giorgio Fernandez DO [address] [place], [place] 132525 Home Care Provider Family Medicine 01/21/23 Electrical Accessories Ii Assembler Relationship Specialty Start Date End Date Giorgio Fernandez DO [address] [place], [place] 361605 PCP - General Family Medicine 10/02/22 Giorgio Fernandez DO [address] [place], [place] 823025 Home Care Provider Family Medicine 01/21/23 Electrical Accessories Ii Assembler Relationship Specialty Start Date End Date Giorgio Fernandez DO [address] [place], [place] 883805 PCP - General Family Medicine 10/02/22 Giorgio Fernandez DO [address] [place], [place] 834565 Home Care Provider Family Medicine 01/21/23 Electrical Accessories Ii Assembler Relationship Specialty Start Date End Date Giorgio Fernandez DO [address] [place], [place] 23[address] PCP - General Family Medicine 10/02/22 Giorgio Fernandez DO [address] [place], [place] 335685 Home Care Provider Family Medicine 01/21/23 Electrical Accessories Ii Assembler Relationship Specialty Start Date End Date Giorgio Fernandez DO [address] [place], [place] 978005 PCP - General Family Medicine 10/02/22 Giorgio Fernandez DO [address] [place], [place] 566505 Home Care Provider Family Medicine 01/21/23 Electrical Accessories Ii Assembler Relationship Specialty Start Date End Date Giorgio Fernandez DO [address] [place], [place] [id number] PCP - General Family Medicine 10/02/22 Giorgio Fernandez DO [address] [place], [place] 216[address] Home Care Provider Family Medicine 01/21/23 Electrical Accessories Ii Assembler Relationship Specialty Start Date End Date Giorgio Fernandez DO [address] [place], [place] 535465 PCP - General Family Medicine 10/02/22 Giorgio Fernandez DO [address] [place] [address] Home Care Provider Family Medicine 01/21/23 Electrical Accessories Ii Assembler Relationship Specialty Start Date End Date Giorgio Fernandez DO [address] [place], [place] 692405 PCP - General Family Medicine 10/02/22 Giorgio Fernandez DO [address] [place], [place] 466515 Home Care Provider Family Medicine 01/21/23 Electrical Accessories Ii Assembler Relationship Specialty Start Date End Date Giorgio Fernandez [address] [place], [place] 584575 PCP - General Family Medicine 04/13/24 Electrical Accessories Ii Assembler Relationship Specialty Start Date End Date Giorgio Fernandez [address] [place] [address] PCP - General Family Medicine 04/13/24 Electrical Accessories Ii Assembler Relationship Specialty Start Date End Date Giorgio Fernandez DO [address] [place] [address] PCP - General Family Medicine 04/16/24 Electrical Accessories Ii Assembler Relationship Specialty Start Date End Date Giorgio Fernandez DO [address] [place] [address] PCP - General Family Medicine 04/16/24 Giorgio Fernandez DO [address] [place] [address] Family Medicine 04/16/24 Giorgio Fernandez DO [address] [place], [place] 977985 Home Care Provider Family Medicine 01/21/23 Electrical Accessories Ii Assembler Relationship Specialty Start Date End Date Giorgio Fernandez DO [address] [place] [address] PCP - General Family Medicine 04/16/24 Giorgio Fernandez DO [address] [place] [address] Family Medicine 04/16/24 Giorgio Fernandez DO [address] [place] [address] Home Care Provider Family Medicine 01/21/23 Electrical Accessories Ii Assembler Relationship Specialty Start Date End Date Giorgio Fernandez DO [address] [place], [place] 230175 PCP - General Family Medicine 04/16/24 Giorgio Fernandez DO [address] [place] [address] Family Medicine 04/16/24 Giorgio Fernandez DO [address] [place], [place] 973505 Home Care Provider Family Medicine 01/21/23 Electrical Accessories Ii Assembler Relationship Specialty Start Date End Date Giorgio Fernandez DO [address] [place], [place] 164815 PCP - General Family Medicine 04/16/24 Giorgio Fernandez DO [address] [place], [place] 170505 Family Medicine 04/16/24 Giorgio Fernandez DO [address] [place], [place] 012605 Home Care Provider Family Medicine 01/21/23 Electrical Accessories Ii Assembler Relationship Specialty Start Date End Date Giorgio Fernandez DO [address] [place], [place] 058285 PCP - General Family Medicine 04/16/24 Giorgio Fernandez DO [address] [place], [place] 023035 Family Medicine 04/16/24 Giorgio Fernandez DO [address] [place], [place] 597895 Home Care Provider Family Medicine 01/21/23 Electrical Accessories Ii Assembler Relationship Specialty Start Date End Date Giorgio Fernandez DO [address] [place], [place] 350785 PCP - General Family Medicine 04/16/24 Giorgio Fernandez DO [address] [place], [place] 359625 Family Medicine 04/16/24 Giorgio Fernandez DO [address] [place], [place] 407225 Home Care Provider Family Medicine 01/21/23 Electrical Accessories Ii Assembler Relationship Specialty Start Date End Date Fernandez Giorgio [address] [place], [place] 705115 PCP - General Family Medicine 04/13/24 Electrical Accessories Ii Assembler Relationship Specialty Start Date End Date FernandezGiorgio [address] [place], [place] 097475 PCP - General Family Medicine 04/13/24 Electrical Accessories Ii Assembler Relationship Specialty Start Date End Date Giorgio Fernandez [address] [place], [place] 986755 PCP - General Family Medicine 04/13/24 Electrical Accessories Ii Assembler Relationship Specialty Start Date End Date Giorgio Fernandez DO [address] [place], [place] 599995 PCP - General Family Medicine 04/16/24 Giorgio Fernandez DO [address] [place], [place] 442465 Family Medicine 04/16/24 Giorgio Fernandez DO [address] [place], [place] 51260685 Home Care Provider Family Medicine 01/21/23 Electrical Accessories Ii Assembler Relationship Specialty Start Date End Date Giorgio Fernandez DO [address] [place], [place] 31061685 PCP - General Family Medicine 04/16/24 Giorgio Fernandez DO [address] [place], [place] 074165 Family Medicine 04/16/24 Giorgio Fernandez DO [address] [place], [place] 594915 Home Care Provider Family Medicine 01/21/23 Electrical Accessories Ii Assembler Relationship Specialty Start Date End Date Giorgio Fernandez DO [address] [place], [place] [id number] PCP - General Family Medicine 04/16/24 Giorgio Fernandez DO [address] [place], [place] 08006685 Family Medicine 04/16/24 Giorgio Fernandez DO [address] [place], [place] 00128685 Home Care Provider Family Medicine 01/21/23 Electrical Accessories Ii Assembler Relationship Specialty Start Date End Date Giorgio Fernandez DO [address] [place], [place] 80879685 PCP - General Family Medicine 04/16/24 Giorgio Fernandez DO [address] [place], [place] [id number] Family Medicine 04/16/24 Giorgio Fernandez DO [address] [place], [place] 79589685 Home Care Provider Family Medicine 01/21/23 Anita Barrera, regional production manager Plaster Mold Maker 06/19/24 Electrical Accessories Ii Assembler Relationship Specialty Start Date End Date Giorgio Fernandez DO [address] [place] [address] PCP - General Family Medicine 04/16/24 Giorgio Fernandez DO [address] [place] [address] Family Medicine 04/16/24 Giorgio Fernandez DO [address] [place], [place] 568555 Home Care Provider Family Medicine 01/21/23 Anita Barrera, regional production manager Plaster Mold Maker 06/19/24 Electrical Accessories Ii Assembler Relationship Specialty Start Date End Date Giorgio Fernandez DO [address] [place], [place] 320715 PCP - General Family Medicine 04/16/24 Giorgio Fernandez DO [address] [place], [place] 026605 Family Medicine 04/16/24 Giorgio Fernandez DO [address] [place], [place] 722235 Home Care Provider Family Medicine 01/21/23 Anita Barrera RN Primary Care Plaster Mold Maker 06/19/24 Electrical Accessories Ii Assembler Relationship Specialty Start Date End Date Giorgio Fernandez DO [address] [place], [place] 349055 PCP - General Family Medicine 04/16/24 Giorgio Fernandez DO [address] [place] [address] Family Medicine 04/16/24 Giorgio Fernandez DO [address] [place], [place] 845805 Home Care Provider Family Medicine 01/21/23 Anita Barrera, regional production manager Plaster Mold Maker 06/19/24 06/26/24 Electrical Accessories Ii Assembler Relationship Specialty Start Date End Date Giorgio Fernandez DO [address] [place], [place] 881535 PCP - General Family Medicine 04/16/24 Giorgio Fernandez DO [address] [place], [place] 948015 Family Medicine 04/16/24 Giorgio Fernandez DO [address] [place], [place] 373775 Home Care Provider Family Medicine 01/21/23 Anita Barrera, regional production manager Plaster Mold Maker 06/19/24 06/26/24 Electrical Accessories Ii Assembler Relationship Specialty Start Date End Date Giorgio Fernandez DO [address] [place] [address] PCP - General Family Medicine 04/16/24 Giorgio Fernandez DO [address] [place], [place] 268925 Family Medicine 04/16/24 Giorgio Fernandez DO [address] [place] [address] Home Care Provider Family Medicine 01/21/23 Electrical Accessories Ii Assembler Relationship Specialty Start Date End Date Giorgio Fernandez DO [address] [place] [address] PCP - General Family Medicine 04/16/24 Giorgio Fernandez DO [address] [place] [address] Family Medicine 04/16/24 Giorgio Fernandez DO [address] [place] [address] Home Care Provider Family Medicine 01/21/23 Electrical Accessories Ii Assembler Relationship Specialty Start Date End Date Giorgio Fernandez DO [address] [place] [address] PCP - General Family Medicine 04/16/24 Giorgio Fernandez DO [address] [place], [place] 434815 Family Medicine 04/16/24 Giorgio Fernandez DO [address] [place] [address] Home Care Provider Family Medicine 01/21/23 Electrical Accessories Ii Assembler Relationship Specialty Start Date End Date Giorgio Fernandez [address] [place] [address] PCP - General Family Medicine 04/13/24 Electrical Accessories Ii Assembler Relationship Specialty Start Date End Date Frederic Velasquez PCP - General 12/19/16 Electrical Accessories Ii Assembler Relationship Specialty Start Date End Date Rose Clark MD [address] [place] [address] [address] [place] [address] PCP - General Family Medicine 12/31/24 [employer] Relationship Specialty Start Date End Date Rose Clark MD [address] [place] [address] [address] [place] [address] PCP - General Family Medicine 12/31/24 Team [...] or prosecute any alcohol or drug abuse patient.[facility] the event this information is protected by the Federal Confidentiality of Alcohol and Drug Abuse Patient Records regulations: The Federal rules restrict any use of the information to criminally investigate or prosecute any alcohol or drug abuse patient.[facility]In the event this information is protected by the Federal Confidentiality of Alcohol and Drug Abuse Patient Records regulations: The Federal rules restrict any use of the information to criminally investigate or prosecute any alcohol or drug abuse patient.[facility]In the event this information is protected by the Federal Confidentiality of Alcohol and Drug Abuse Patient Records regulations: The Federal rules restrict any use of the information to criminally investigate or prosecute any alcohol or drug abuse patient.[facility]In the event this information is protected by the Federal Confidentiality of Alcohol and Drug Abuse Patient Records regulations: The Federal rules restrict any use of the information to criminally investigate or prosecute any alcohol or drug abuse patient.[facility]In the event this information is protected by the Federal Confidentiality of Alcohol and Drug Abuse Patient Records regulations: The Federal rules restrict any use of the information to criminally investigate or prosecute any alcohol or drug abuse patient.[facility]In the event this information is protected by the Federal Confidentiality of Alcohol and Drug Abuse Patient Records regulations: The Federal rules restrict any use of the information to criminally investigate or prosecute any alcohol or drug abuse patient.[facility]In the event this information is protected by the Federal Confidentiality of Alcohol and Drug Abuse Patient Records regulations: The Federal rules restrict any use of the information to criminally investigate or prosecute any alcohol or drug abuse patient.[facility]In the event this information is protected by the Federal Confidentiality of Alcohol and Drug Abuse Patient Records regulations: The Federal rules restrict any use of the information to criminally investigate or prosecute any alcohol or drug abuse patient.[facility] HospitalIn the event this information is protected by the Federal Confidentiality of Alcohol and Drug Abuse Patient Records regulations: The Federal rules restrict any use of the information to criminally investigate or prosecute any alcohol or drug abuse patient.[facility]In the event this information is protected by the Federal Confidentiality of Alcohol and Drug Abuse Patient Records regulations: The Federal rules restrict any use of the information to criminally investigate or prosecute any alcohol or drug abuse patient.[facility] HospitalIn the event this information is protected by the Federal Confidentiality of Alcohol and Drug Abuse Patient Records regulations: The Federal rules restrict any use of the information to criminally investigate or prosecute any alcohol or drug abuse patient.[facility]In the event this information is protected by the Federal Confidentiality of Alcohol and Drug Abuse Patient Records regulations: The Federal rules restrict any use of the information to criminally investigate or prosecute any alcohol or drug abuse patient.[facility]In the event this information is protected by the Federal Confidentiality of Alcohol and Drug Abuse Patient Records regulations: The Federal rules restrict any use of the information to criminally investigate or prosecute any alcohol or drug abuse patient.[facility] HospitalIn the event this information is protected by the Federal Confidentiality of Alcohol and Drug Abuse Patient Records regulations: The Federal rules restrict any use of the information to criminally investigate or prosecute any alcohol or drug abuse patient.[facility] HospitalIn the event this information is protected by the Federal Confidentiality of Alcohol and Drug Abuse Patient Records regulations: The Federal rules restrict any use of the information to criminally investigate or prosecute any alcohol or drug abuse patient.[facility] HospitalIn the event this information is protected by the Federal Confidentiality of Alcohol and Drug Abuse Patient Records regulations: The Federal rules restrict any use of the information to criminally investigate or prosecute any alcohol or drug abuse patient.[facility]In the event this information is protected by the Federal Confidentiality of Alcohol and Drug Abuse Patient Records regulations: The Federal rules restrict any use of the information to criminally investigate or prosecute any alcohol or drug abuse patient.[facility] HospitalIn the event this information is protected by the Federal Confidentiality of Alcohol and Drug Abuse Patient Records regulations: The Federal rules restrict any use of the information to criminally investigate or prosecute any alcohol or drug abuse patient.[facility] HospitalIn the event this information is protected by the Federal Confidentiality of Alcohol and Drug Abuse Patient Records regulations: The Federal rules restrict any use of the information to criminally investigate or prosecute any alcohol or drug abuse patient.[facility] HospitalIn the event this information is protected by the Federal Confidentiality of Alcohol and Drug Abuse Patient Records regulations: The Federal rules restrict any use of the information to criminally investigate or prosecute any alcohol or drug abuse patient.[facility] HospitalIn the event this information is protected by the Federal Confidentiality of Alcohol and Drug Abuse Patient Records regulations: The Federal rules restrict any use of the information to criminally investigate or prosecute any alcohol or drug abuse patient.[facility] HospitalIn the event this information is protected by the Federal Confidentiality of Alcohol and Drug Abuse Patient Records regulations: The Federal rules restrict any use of the information to criminally investigate or prosecute any alcohol or drug abuse patient.[facility] HospitalIn the event this information is protected by the Federal Confidentiality of Alcohol and Drug Abuse Patient Records regulations: The Federal rules restrict any use of the information to criminally investigate or prosecute any alcohol or drug abuse patient.[facility] HospitalIn the event this information is protected by the Federal Confidentiality of Alcohol and Drug Abuse Patient Records regulations: The Federal rules restrict any use of the information to criminally investigate or prosecute any alcohol or drug abuse patient.[facility] HospitalIn the event this information is protected by the Federal Confidentiality of Alcohol and Drug Abuse Patient Records regulations: The Federal rules restrict any use of the information to criminally investigate or prosecute any alcohol or drug abuse patient.[facility] HospitalIn the event this information is protected by the Federal Confidentiality of Alcohol and Drug Abuse Patient Records regulations: The Federal rules restrict any use of the information to criminally investigate or prosecute any alcohol or drug abuse patient.[facility] HospitalIn the event this information is protected by the Federal Confidentiality of Alcohol and Drug Abuse Patient Records regulations: The Federal rules restrict any use of the information to criminally investigate or prosecute any alcohol or drug abuse patient.[facility] HospitalIn the event this information is protected by the Federal Confidentiality of Alcohol and Drug Abuse Patient Records regulations: The Federal rules restrict any use of the information to criminally investigate or prosecute any alcohol or drug abuse patient.[facility] HospitalIn the event this information is protected by the Federal Confidentiality of Alcohol and Drug Abuse Patient Records regulations: The Federal rules restrict any use of the information to criminally investigate or prosecute any alcohol or drug abuse patient.[facility] HospitalIn the event this information is protected by the Federal Confidentiality of Alcohol and Drug Abuse Patient Records regulations: The Federal rules restrict any use of the information to criminally investigate or prosecute any alcohol or drug abuse patient.[facility] HospitalIn the event this information is protected by the Federal Confidentiality of Alcohol and Drug Abuse Patient Records regulations: The Federal rules restrict any use of the information to criminally investigate or prosecute any alcohol or drug abuse patient.[facility] the event this information is protected by the Federal Confidentiality of Alcohol and Drug Abuse Patient Records regulations: The Federal rules restrict any use of the information to criminally investigate or prosecute any alcohol or drug abuse patient.[facility] HospitalIn the event this information is protected by the Federal Confidentiality of Alcohol and Drug Abuse Patient Records regulations: The Federal rules restrict any use of the information to criminally investigate or prosecute any alcohol or drug abuse patient.[facility] HospitalIn the event this information is protected by the Federal Confidentiality of Alcohol and Drug Abuse Patient Records regulations: The Federal rules restrict any use of the information to criminally investigate or prosecute any alcohol or drug abuse patient.[facility] HospitalIn the event this information is protected by the Federal Confidentiality of Alcohol and Drug Abuse Patient Records regulations: The Federal rules restrict any use of the information to criminally investigate or prosecute any alcohol or drug abuse patient.[facility] HospitalIn the event this information is protected by the Federal Confidentiality of Alcohol and Drug Abuse Patient Records regulations: The Federal rules restrict any use of the information to criminally investigate or prosecute any alcohol or drug abuse patient.[facility] HospitalIn the event this information is protected by the Federal Confidentiality of Alcohol and Drug Abuse Patient Records regulations: The Federal rules restrict any use of the information to criminally investigate or prosecute any alcohol or drug abuse patient.[facility] HospitalIn the event this information is protected by the Federal Confidentiality of Alcohol and Drug Abuse Patient Records regulations: The Federal rules restrict any use of the information to criminally investigate or prosecute any alcohol or drug abuse patient.[facility] HospitalIn the event this information is protected by the Federal Confidentiality of Alcohol and Drug Abuse Patient Records regulations: The Federal rules restrict any use of the information to criminally investigate or prosecute any alcohol or drug abuse patient.[facility] HospitalIn the event this information is protected by the Federal Confidentiality of Alcohol and Drug Abuse Patient Records regulations: The Federal rules restrict any use of the information to criminally investigate or prosecute any alcohol or drug abuse patient.[facility] HospitalIn the event this information is protected by the Federal Confidentiality of Alcohol and Drug Abuse Patient Records regulations: The Federal rules restrict any use of the information to criminally investigate or prosecute any alcohol or drug abuse patient.[facility] HospitalIn the event this information is protected by the Federal Confidentiality of Alcohol and Drug Abuse Patient Records regulations: The Federal rules restrict any use of the information to criminally investigate or prosecute any alcohol or drug abuse patient.[facility] HospitalIn the event this information is protected by the Federal Confidentiality of Alcohol and Drug Abuse Patient Records regulations: The Federal rules restrict any use of the information to criminally investigate or prosecute any alcohol or drug abuse patient.[facility] HospitalIn the event this information is protected by the Federal Confidentiality of Alcohol and Drug Abuse Patient Records regulations: The Federal rules restrict any use of the information to criminally investigate or prosecute any alcohol or drug abuse patient.[facility] HospitalIn the event this information is protected by the Federal Confidentiality of Alcohol and Drug Abuse Patient Records regulations: The Federal rules restrict any use of the information to criminally investigate or prosecute any alcohol or drug abuse patient.[facility] HospitalIn the event this information is protected by the Federal Confidentiality of Alcohol and Drug Abuse Patient Records regulations: The Federal rules restrict any use of the information to criminally investigate or prosecute any alcohol or drug abuse patient.[facility] HospitalIn the event this information is protected by the Federal Confidentiality of Alcohol and Drug Abuse Patient Records regulations: The Federal rules restrict any use of the information to criminally investigate or prosecute any alcohol or drug abuse patient.[facility] HospitalIn the event this information is protected by the Federal Confidentiality of Alcohol and Drug Abuse Patient Records regulations: The Federal rules restrict any use of the information to criminally investigate or prosecute any alcohol or drug abuse patient.[facility]In the event this information is protected by the Federal Confidentiality of Alcohol and Drug Abuse Patient Records regulations: The Federal rules restrict any use of the information to criminally investigate or prosecute any alcohol or drug abuse patient.[facility] HospitalIn the event this information is protected by the Federal Confidentiality of Alcohol and Drug Abuse Patient Records regulations: The Federal rules restrict any use of the information to criminally investigate or prosecute any alcohol or drug abuse patient.[facility]In the event this information is protected by the Federal Confidentiality of Alcohol and Drug Abuse Patient Records regulations: The Federal rules restrict any use of the information to criminally investigate or prosecute any alcohol or drug abuse patient.[facility]In the event this information is protected by the Federal Confidentiality of Alcohol and Drug Abuse Patient Records regulations: The Federal rules restrict any use of the information to criminally investigate or prosecute any alcohol or drug abuse patient.[facility] HospitalIn the event this information is protected by the Federal Confidentiality of Alcohol and Drug Abuse Patient Records regulations: The Federal rules restrict any use of the information to criminally investigate or prosecute any alcohol or drug abuse patient.[facility]In the event this information is protected by the Federal Confidentiality of Alcohol and Drug Abuse Patient Records regulations: The Federal rules restrict any use of the information to criminally investigate or prosecute any alcohol or drug abuse patient.[facility] HospitalIn the event this information is protected by the Federal Confidentiality of Alcohol and Drug Abuse Patient Records regulations: The Federal rules restrict any use of the information to criminally investigate or prosecute any alcohol or drug abuse patient.[facility] HospitalIn the event this information is protected by the Federal Confidentiality of Alcohol and Drug Abuse Patient Records regulations: The Federal rules restrict any use of the information to criminally investigate or prosecute any alcohol or drug abuse patient.[facility]In the event this information is protected by the Federal Confidentiality of Alcohol and Drug Abuse Patient Records regulations: The Federal rules restrict any use of the information to criminally investigate or prosecute any alcohol or drug abuse patient.[facility]In the event this information is protected by the Federal Confidentiality of Alcohol and Drug Abuse Patient Records regulations: The Federal rules restrict any use of the information to criminally investigate or prosecute any alcohol or drug abuse patient.[facility]In the event this information is protected by the Federal Confidentiality of Alcohol and Drug Abuse Patient Records regulations: The Federal rules restrict any use of the information to criminally investigate or prosecute any alcohol or drug abuse patient.[facility]In the event this information is protected by the Federal Confidentiality of Alcohol and Drug Abuse Patient Records regulations: The Federal rules restrict any use of the information to criminally investigate or prosecute any alcohol or drug abuse patient.[facility]In the event this information is protected by the Federal Confidentiality of Alcohol and Drug Abuse Patient Records regulations: The Federal rules restrict any use of the information to criminally investigate or prosecute any alcohol or drug abuse patient.[facility]In the event this information is protected by the Federal Confidentiality of Alcohol and Drug Abuse Patient Records regulations: The Federal rules restrict any use of the information to criminally investigate or prosecute any alcohol or drug abuse patient.[facility]In the event this information is protected by the Federal Confidentiality of Alcohol and Drug Abuse Patient Records regulations: The Federal rules restrict any use of the information to criminally investigate or prosecute any alcohol or drug abuse patient.[facility]In the event this information is protected by the Federal Confidentiality of Alcohol and Drug Abuse Patient Records regulations: The Federal rules restrict any use of the information to criminally investigate or prosecute any alcohol or drug abuse patient.[facility]In the event this information is protected by the Federal Confidentiality of Alcohol and Drug Abuse Patient Records regulations: The Federal rules restrict any use of the information to criminally investigate or prosecute any alcohol or drug abuse patient.[facility]In the event this information is protected by the Federal Confidentiality of Alcohol and Drug Abuse Patient Records regulations: The Federal rules restrict any use of the information to criminally investigate or prosecute any alcohol or drug abuse patient.[facility]In the event this information is protected by the Federal Confidentiality of Alcohol and Drug Abuse Patient Records regulations: The Federal rules restrict any use of the information to criminally investigate or prosecute any alcohol or drug abuse patient.[facility]In the event this information is protected by the Federal Confidentiality of Alcohol and Drug Abuse Patient Records regulations: The Federal rules restrict any use of the information to criminally investigate or prosecute any alcohol or drug abuse patient.[facility]In the event this information is protected by the Federal Confidentiality of Alcohol and Drug Abuse Patient Records regulations: The Federal rules restrict any use of the information to criminally investigate or prosecute any alcohol or drug abuse patient.[facility]In the event this information is protected by the Federal Confidentiality of Alcohol and Drug Abuse Patient Records regulations: The Federal rules restrict any use of the information to criminally investigate or prosecute any alcohol or drug abuse patient.[facility]In the event this information is protected by the Federal Confidentiality of Alcohol and Drug Abuse Patient Records regulations: The Federal rules restrict any use of the information to criminally investigate or prosecute any alcohol or drug abuse patient.[facility]In the event this information is protected by the Federal Confidentiality of Alcohol and Drug Abuse Patient Records regulations: The Federal rules restrict any use of the information to criminally investigate or prosecute any alcohol or drug abuse patient.[facility] Goals (unrecognized section and content) Goals [...] BE BASED ON THE PRIMARY CLINICAL RECORDS. [facility] [employer] [facility]. provides no warranty or guarantee of the accuracy or completeness of information in this document.
[2025-09-14 09:07] LABS: Valproic Acid (Depakene) Level 36 ug/mL (50-100)
== END ==
LOC: OLS.ACW400 05:00
PROVIDERS: Visit Provider Family Medicine
DX: Z79.899 Other long term (current) drug therapy (principal)
CPT/HCPCS: 36415; 80164

== ENCOUNTER → 2025-11-09 05:00 | Outpatient (REF) | payer MEDICARE, SELFPAY ==
[2025-11-09 08:38] LABS: Valproic Acid (Depakene) Level 26 ug/mL (50-100)
== END ==
LOC: OLS.ACW400 05:00
PROVIDERS: Visit Provider Family Medicine
DX: F23 Brief psychotic disorder (principal); I69.354 Hemiplegia and hemiparesis following cerebral infarction affecting left non-dominant side; I69.392 Facial weakness following cerebral infarction; I69.391 Dysphagia following cerebral infarction
CPT/HCPCS: 36415; 80164